=== PATIENT | male | born 1985 | race African-American/Black ===

== ENCOUNTER 2022-03-13 17:07 | Emergency (ER) | payer MEDICARE, MEDICAID, SELFPAY ==
[2022-03-13 17:20] VITALS: BP 177/106; PULSE 92; RESP 18; TEMP 36.6; O2SAT 100; BMI 26.6
--- NOTE | 2022-03-13 17:47 | ED.GENADULT ---
HPI - General Adult General Time Seen by Provider: 17:47 Date Seen: 03/13/22 Chief complaint: Ear/Nose/Throat Problem Stated complaint: Ear Pain Time Seen by Provider: 03/13/22 17:09 Source: patient Mode of arrival: ambulatory Limitations: no limitations History of Present Illness HPI narrative: Patient is a pleasant 36-year-old black male who presents with left earache. Live on does dialysis for end-stage renal failure from hypertension. He is on blood pressure medications. He has allergy to multiple issues mostly morphine, coconut oil, Benadryl, hydrocodone and morphine. The patient is alert oriented. He reported the nurses had some vomiting he thinks is from an ulcer, but he does not feel issues with that right now. He would like to talk to his regular doctor about that. He has had ear pain for a couple of days on the left, has some discharge as well. No other specific complaints. His blood pressure is elevated here but he is afebrile O2 sat 100% on room air Related Data Previous Rx's Medication Instructions Recorded cephalexin 500 mg capsule 500 mg PO DAILY #10 caps 03/13/22 Allergies Allergy/AdvReac Type Severity Reaction Status Date / Time coconut oil Allergy Verified 03/13/22 17:19 diphenhydramine Allergy Verified 03/13/22 17:19 [From Benadryl] hydrocodone Allergy Verified 03/13/22 17:19 ibuprofen Allergy Verified 03/13/22 17:19 NSAIDS (Non-Steroidal Allergy Verified 03/13/22 17:19 Anti-Inflamma morhine Allergy Uncoded 03/13/22 17:18 Review of Systems Narrative: Negative for prior ear infections, history of hypertension, history of end-stage renal failure on dialysis [facility] Social History Smoking Status: Never smoker Do you use any of these nicotine containing products: None Second hand tobacco smoke exposure: No How often do you have a drink containing alcohol: never How often do you have six or more drinks on one occasion: Never AUDIT-C Alcohol total score: 0 Non-prescribed substance use: denies use service: No Exam Narrative: Exam Narrative: Objective: Patient is no apparent distress Vital signs show elevated blood pressure afebrile O2 sat 100% on room air Left otitis media with bulging membrane, some cerumen in the canal as well Right ear appears clear Mouth is clear, neck supple Const: Vital Signs, click to edit/add: Vital Signs - 24 hr 03/13/22 17:20 Temperature 97.9 F Pulse Rate [Pulse Oximeter] 92 Respiratory Rate 18 Blood Pressure [Ri ght Upper Arm] 177/106 H Pulse Oximetry 100 Oxygen Delivery Me thod Room Air Course Vital Signs Vital signs: Initial Vital Signs Temperature 97.9 F 03/13/22 17:20 Temperature Source Temporal Artery Scan 03/13/22 17:20 Pulse Rate 92 03/13/22 17:20 Pulse Rhythm 03/13/22 17:20 Respiratory Rate 18 03/13/22 17:20 Blood Pressure 177/106 H 03/13/22 17:20 Blood Pressure Mean 129 03/13/22 17:20 Blood Pressure Position Sitting 03/13/22 17:20 Pulse Oximetry 100 03/13/22 17:20 Oxygen Delivery Method 03/13/22 17:20 Vital Signs Temperature 97.9 F 03/13/22 17:20 Pulse Rate 92 03/13/22 17:20 Respiratory Rate 18 03/13/22 17:20 Blood Pressure 177/106 H 03/13/22 17:20 Pulse Oximetry 100 03/13/22 17:20 Oxygen Delivery Method 03/13/22 17:20 Temperature 97.9 F 03/13/22 17:20 Pulse Rate 92 03/13/22 17:20 Respiratory Rate 18 03/13/22 17:20 Blood Pressure 177/106 H 03/13/22 17:20 Pulse Oximetry 100 03/13/22 17:20 Oxygen Delivery Method 03/13/22 17:20 Medical Decision Making MDM Narrative Medical decision making narrative: Patient with end-stage renal disease due to hypertension, high blood pressure, and left otitis media. Will cover with Keflex 500 b.i.d. x7 days, Tylenol as needed, update primary care in the next 1-2 days not improving changes concerns worsening return to ED. Discharge Plan Discharge Clinical Impression: Otitis media Patient Disposition: Home, Self-Care Condition: Stable Additional Instructions: Light activity, follow up with primary care if not improving the next 2-3 days, may use Tylenol as needed. Considering hemodialysis hemodialysis dosage of Keflex, would have the patient take one, 500 mg tablet daily for 5 days Activity Level: No Restrictions Discharge Diet: Regular Prescriptions: New cephalexin 500 mg capsule 500 mg PO DAILY Qty: 10 0RF Stand Alone Forms: [employer] Info Instructions
== END 2022-03-13 17:58 | disposition home or self-care (01) ==
LOC: ED 17:56
PROVIDERS: Emergency Provider Family Medicine
DX: H66.92 Otitis media, unspecified, left ear (principal)
CPT/HCPCS: 99283

== ENCOUNTER 2022-03-28 19:23 | Outpatient (CLI) | payer MEDICARE, MEDICAID, SELFPAY ==
[2022-03-28 22:04] LABS: Chloride* 99 mmol/L (96-114)
[2022-03-28 22:05] LABS: Albumin* 5.2 g/dL (3.3-5.0); Potassium* 4.7 mmol/L (3.6-5.1); Sodium* 138 mmol/L (135-149)
[2022-03-28 22:07] LABS: Estimated Glomerular Filt Rate 7 ml/min
[2022-03-28 22:08] LABS: Alanine Aminotransferase* 19 U/L (4-50); Alkaline Phosphatase* 53 U/L (40-150); Aspartate Amino Transferase* 23 U/L (12-35); Bilirubin Total* 0.7 mg/dL (0.1-1.5); Carbon Dioxide* 26 mmol/L (20-32); Total Protein* 7.9 g/dL (6.0-8.3)
[2022-03-28 22:09] LABS: Blood Urea Nitrogen* 24 mg/dL (5-24); Calcium* 9.3 mg/dL (8.4-10.6); Glucose* 89 mg/dL (60-115)
[2022-03-28 22:14] LABS: C Reactive Protein* < 0.5 mg/dL (0.5-1.0)
[2022-03-28 23:20] LABS: Erythrocyte SedimentationRate* 5 mm/hr (2-15)
== END 2022-03-28 19:24 | disposition home or self-care (01) ==
PROVIDERS: Visit Provider Student in an Organized Health Care Education/Training Program
DX: Z00.00 Encounter for general adult medical examination without abnormal findings (principal); I10 Essential (primary) hypertension; N18.6 End stage renal disease; H92.09 Otalgia, unspecified ear
CPT/HCPCS: 80053; 85651; 86140

== ENCOUNTER 2022-04-11 07:58 | Emergency (ER) | payer MEDICARE, MEDICAID, SELFPAY ==
[2022-04-11 08:10] VITALS: BP 181/112; PULSE 75; RESP 18; TEMP 37; O2SAT 76; BMI 26.6
--- NOTE | 2022-04-11 08:22 | ED.EAR ---
HPI - Ear Problem General Chief complaint: Ear/Nose/Throat Problem Stated complaint: pain in head Time Seen by Provider: 04/11/22 08:07 History of Present Illness HPI Narrative: Pt is a 36 year old gentleman who presents with worsening of left sided ear pain. Pt has had otitis media on two previous occasions and actually saw me recently in the clinic where I did set him up with ENT for assessment of chronic discomfort in his left ear. Pt's symptoms have worsening over the past 2 days. Pt has no fever or chills. No nausea or vomiting. Pt states the pain is severe and extends down into his teeth on the left side. He has no airway issues. No fevers, chills, night sweats. Pt has end stage renal disease and is on dialysis. No issues with abd pain or with his shunt. Related Data Home Medications Medication Instructions Recorded Confirmed amlodipine 10 mg tablet 10 mg PO QDAY 04/03/22 04/03/22 benazepril 20 mg tablet 20 mg PO BID 04/03/22 04/03/22 carvedilol 12.5 mg tablet 12.5 mg PO BID 04/03/22 04/03/22 gabapentin 100 mg capsule 100 mg PO QHS 04/03/22 04/03/22 hydralazine 50 mg tablet 50 mg PO TID 04/03/22 04/03/22 minoxidil 2.5 mg tablet 2.5 mg PO QDAY 04/03/22 04/03/22 nitroglycerin 0.4 mg sublingual 0.4 mg sublingual Q5M PRN 04/03/22 04/03/22 tablet ondansetron HCl 4 mg tablet 4 mg PO Q6H 04/03/22 04/03/22 Previous Rx's Medication Instructions Recorded omeprazole 20 mg capsule,delayed 20 mg PO QDAY Dyspepsia #30 caps 04/03/22 release tramadol 50 mg tablet 50 mg PO Q8H PRN pain #20 tabs 04/03/22 amoxicillin 500 mg-potassium 1 tab PO BID Otitis Media #14 tabs 04/11/22 clavulanate 125 mg tablet (Augmentin) hydrocodone 5 mg-acetaminophen 325 1 tab PO BID PRN pain #14 tabs 04/11/22 mg tablet Allergies Allergy/AdvReac Type Severity Reaction Status Date / Time coconut oil Allergy Verified 03/28/22 18:41 diphenhydramine Allergy Verified 03/28/22 18:41 [From Benadryl] hydrocodone Allergy Verified 03/28/22 18:41 ibuprofen Allergy Verified 03/28/22 18:41 NSAIDS (Non-Steroidal Allergy Verified 03/28/22 18:41 Anti-Inflamma morhine Allergy Uncoded 03/28/22 18:41 Review of Systems Status of ROS: Reports: 10 or more systems reviewed and unremarkable except as noted in History and below [facility] Medical History Ear pain End stage renal disease Hypertension Social History Smoking Status: Never smoker Do you use any of these nicotine containing products: None Second hand tobacco smoke exposure: No How often do you have a drink containing alcohol: never How often do you have six or more drinks on one occasion: Never AUDIT-C Alcohol total score: 0 Non-prescribed substance use: denies use service: No Exam Narrative: Exam Narrative: EXAM GENERAL: Patient appears comfortable and well. EYES: No scleral icterus. ENT: Dullness noted with erythema on the TM on the left with normal TM on the Right. THYROID: no thyroid nodules or thyromegaly. LYMPH: No supraclavicular or cervical lymphadenopathy. SKIN: Visible skin seen during exam normal or with benign process only. EXT: No dependent lower extremity pedal edema. HEART: Regular rate and rhythm with no murmurs, rubs, or gallops. LUNGS: Clear to auscultation bilaterally with no crackles or wheezes. ABD: Soft, non tender, non distended. PSYCH: Good eye contact, speech is not pressured. Const: Vital Signs, click to edit/add: Vital Signs - 24 hr 04/11/22 08:10 Temperature 98.6 F Pulse Rate [Right Pulse Oximeter] 75 Respiratory Rate 18 Blood Pressure [Ri ght Upper Arm] 181/112 H Pulse Oximetry 76 L Oxygen Delivery Me thod Room Air Course Course Hospital Course: Pt seen and examined. Vital Signs Vital signs: Initial Vital Signs Temperature 98.6 F 04/11/22 08:10 Temperature Source Temporal Artery Scan 04/11/22 08:10 Pulse Rate 75 04/11/22 08:10 Respiratory Rate 18 12/15/22 08:10 Blood Pressure 181/112 H 04/11/22 08:10 Blood Pressure Mean 135 04/11/22 08:10 Blood Pressure Position Sitting 04/11/22 08:10 Pulse Oximetry 76 L 04/11/22 08:10 Oxygen Delivery Method 04/11/22 08:10 Vital Signs Temperature 98.6 F 04/11/22 08:10 Pulse Rate 75 04/11/22 08:10 Respiratory Rate 18 04/11/22 08:10 Blood Pressure 181/112 H 04/11/22 08:10 Pulse Oximetry 76 L 04/11/22 08:10 Oxygen Delivery Method 04/11/22 08:10 Temperature 98.6 F 04/11/22 08:10 Pulse Rate 75 04/11/22 08:10 Respiratory Rate 18 04/11/22 08:10 Blood Pressure 181/112 H 04/11/22 08:10 Pulse Oximetry 76 L 04/11/22 08:10 Oxygen Delivery Method 04/11/22 08:10 Medical Decision Making MDM Narrative Medical decision making narrative: Pt well known to me presents with L ear pain. Findings are consistent with otitis media. Pt is on dialysis for ESRD secondary to hypertension. Pt will be treated with Augmentin and will give small amount of [place] for pain. Pt has an ENT follow up in the next 2 weeks to discuss recurrent ear pain/infection. Differential Diagnosis Differential Diagnosis: Otitis media, Otitis externa, dental pain, giant cell arteritis, headache, Discharge Plan Discharge Clinical Impression: Otitis media Patient Disposition: Home, Self-Care Condition: Stable Instructions: Ear Infection (ED) Additional Instructions: Augmentin twice daily for 7 days [place] as needed for pain Follow up with ENT as scheduled Activity Level: No Restrictions Discharge Diet: Regular Prescriptions: New amoxicillin-pot clavulanate [Augmentin] 500-125 mg tablet 1 tab PO BID Qty: 14 0RF hydrocodone-acetaminophen 5-325 mg tablet 1 tab PO BID PRN (Reason: pain) Qty: 14 0RF No Action gabapentin 100 mg capsule 100 mg PO QHS ondansetron HCl 4 mg tablet 4 mg PO Q6H benazepril 20 mg tablet 20 mg PO BID amlodipine 10 mg tablet 10 mg PO QDAY nitroglycerin 0.4 mg tablet, sublingual 0.4 mg sublingual Q5M PRN Rx Instructions: do not exceed 3 doses per episode hydralazine 50 mg tablet 50 mg PO TID minoxidil 2.5 mg tablet 2.5 mg PO QDAY carvedilol 12.5 mg tablet 12.5 mg PO BID Rx Instructions: must administer with a meal/food omeprazole 20 mg capsule,delayed release(DR/EC) 20 mg PO QDAY Qty: 30 3RF tramadol 50 mg tablet 50 mg PO Q8H PRN (Reason: pain) Qty: 20 0RF Follow Up/Referrals: Provider,Not a Local [Primary Care Provider] - Stand Alone Forms: [employer] Info Instructions
[2022-04-11 09:05] VITALS: BP 181/112; PULSE 75; RESP 18; TEMP 37
== END 2022-04-11 09:06 | disposition home or self-care (01) ==
PROVIDERS: Emergency Provider Internal Medicine; PCP Internal Medicine
DX: H66.92 Otitis media, unspecified, left ear (principal)
CPT/HCPCS: 99283; 99284

== ENCOUNTER 2022-05-27 12:21 | Outpatient (CLI) | payer MEDICARE, MEDICAID, SELFPAY | END 2022-05-27 12:22 | disposition home or self-care (01) | LOC: AMB 05-29 01:37 | PROVIDERS: PCP Internal Medicine; Visit Provider Emergency Medicine | DX: K08.89 Other specified disorders of teeth and supporting structures (principal); R56.9 Unspecified convulsions | CPT/HCPCS: A0425; A0427 ==

== ENCOUNTER 2022-06-24 19:30 | Outpatient (CLI) | payer MEDICARE, MEDICAID, SELFPAY | END 2022-06-24 19:31 | disposition home or self-care (01) | LOC: AMB 06-27 15:35 | PROVIDERS: PCP Internal Medicine; Visit Provider Family Medicine | DX: R07.89 Other chest pain (principal) | CPT/HCPCS: A0425; A0427 ==

== ENCOUNTER 2022-06-24 19:59 | Emergency (ER) | payer MEDICARE, MEDICAID, SELFPAY ==
[2022-06-24] VITALS (49 sets, daily range): BP systolic 139–179; BP diastolic 71–99; PULSE 75–114; RESP 18; TEMP 36.6–36.8; O2SAT 89–99; BMI 26.6
--- NOTE | 2022-06-24 20:13 | ED.GENADULT ---
HPI - General Adult General Time Seen by Provider: 20:13 Date Seen: 06/24/22 Chief complaint: Chest Pain Stated complaint: Chest Pain Time Seen by Provider: 06/24/22 20:02 Source: patient, EMS and RN notes reviewed Mode of arrival: EMS Limitations: no limitations History of Present Illness HPI narrative: 36-year-old male with end-stage renal disease on dialysis, hypertension who presents with chest pain. Patient reports 2 days of left-sided chest pain. Occasional cough in some shortness of breath. Missed dialysis last week, went to dialysis today with some improvement of his pain and then pain in his back this evening. Denies nausea, vomiting, diarrhea, abdominal pain. Pain is worse when he lays down, better sitting up. Denies fever chills. Has not taken anything for his pain. Related Data Home Medications Medication Instructions Recorded Confirmed amlodipine 10 mg tablet 10 mg PO QDAY 04/03/22 06/24/22 benazepril 20 mg tablet 20 mg PO BID 04/03/22 06/24/22 carvedilol 12.5 mg tablet 12.5 mg PO BID 04/03/22 06/24/22 gabapentin 100 mg capsule 100 mg PO QHS 04/03/22 06/24/22 hydralazine 50 mg tablet 50 mg PO TID 04/03/22 06/24/22 minoxidil 2.5 mg tablet 2.5 mg PO QDAY 04/03/22 06/24/22 Previous Rx's Medication Instructions Recorded omeprazole 20 mg capsule,delayed 20 mg PO QDAY Dyspepsia #30 caps 04/03/22 release Allergies Allergy/AdvReac Type Severity Reaction Status Date / Time diphenhydramine Allergy Severe Seizure Verified 06/24/22 20:07 [From Benadryl] hydrocodone Allergy Severe Seizure Verified 06/24/22 20:07 morphine Allergy Severe Seizure Verified 06/24/22 20:07 coconut oil Allergy Mild Hives Verified 06/24/22 20:07 ibuprofen AdvReac Severe Kidney Verified 06/24/22 20:07 Disease NSAIDS (Non-Steroidal AdvReac Severe Kidney Verified 06/24/22 20:07 Anti-Inflamma Disease PFSH PFSH Medical History Ear pain End stage renal disease Hypertension Social History Smoking Status: Former smoker Do you use any of these nicotine containing products: None Second hand tobacco smoke exposure: No How often do you have a drink containing alcohol: never How often do you have six or more drinks on one occasion: Never AUDIT-C Alcohol total score: 0 Non-prescribed substance use: denies use service: No Exam Narrative: Exam Narrative: General: Well-developed and well-nourished, no acute distress Head: Atraumatic and normocephalic Eyes: Pupils are equal reactive, extraocular motions intact, conjunctiva clear ENT: External nose and ears are normal, posterior pharynx without erythema or exudate Neck: No midline cervical tenderness, full spontaneous range of motion the neck, trachea midline, no adenopathy Heart: Regular rate and rhythm, 4/6 systolic murmur Lungs: Clear to auscultation bilaterally without wheezes or crackles Abdomen: Soft, nontender, nondistended with active bowel sounds Musculoskeletal: No tenderness, deformity, or edema Neurologic: Awake, alert, and oriented x3, no gross focal neurologic deficits, cranial nerves intact as tested Psych: Mood and affect are appropriate Skin: No rashes Const: Vital Signs, click to edit/add: Vital Signs - 24 hr 06/24/22 20:09 06/24/22 20:22 06/24/22 20:23 Temperature 98.2 F Pulse Rate Pulse Rate [Right Pulse Oximeter] 75 Respiratory Rate 18 Blood Pressure Blood Pressure [Ri ght Upper Arm] 175/99 H Pulse Oximetry 99 97 97 Oxygen Delivery Me thod Room Air 06/24/22 20:10 06/24/22 20:11 06/24/22 20:22 Temperature Pulse Rate 97 95 95 Pulse Rate [Right Pulse Oximeter] Respiratory Rate Blood Pressure 164/97 H 156/92 H Blood Pressure [Ri ght Upper Arm] Pulse Oximetry 98 97 98 Oxygen Delivery Me thod 06/24/22 20:30 06/24/22 20:32 06/24/22 20:33 Temperature Pulse Rate 105 H 100 98 Pulse Rate [Right Pulse Oximeter] Respiratory Rate Blood Pressure 159/94 H Blood Pressure [Ri ght Upper Arm] Pulse Oximetry 98 97 96 Oxygen Delivery Me thod 06/24/22 20:40 06/24/22 20:50 06/24/22 21:00 Temperature Pulse Rate 114 H 92 93 Pulse Rate [Right Pulse Oximeter] Respiratory Rate Blood Pressure Blood Pressure [Ri ght Upper Arm] Pulse Oximetry 97 98 97 Oxygen Delivery Me thod 06/24/22 21:02 06/24/22 21:03 06/24/22 21:10 Temperature Pulse Rate 100 101 H 96 Pulse Rate [Right Pulse Oximeter] Respiratory Rate Blood Pressure 166/94 H Blood Pressure [Ri ght Upper Arm] Pulse Oximetry 99 97 97 Oxygen Delivery Me thod 06/24/22 21:11 06/24/22 21:12 06/24/22 21:20 Temperature Pulse Rate 97 96 98 Pulse Rate [Right Pulse Oximeter] Respiratory Rate Blood Pressure 166/89 H Blood Pressure [Ri ght Upper Arm] Pulse Oximetry 97 97 96 Oxygen Delivery Me thod 06/24/22 21:22 06/24/22 21:30 06/24/22 21:32 Temperature Pulse Rate 98 102 H 104 H Pulse Rate [Right Pulse Oximeter] Respiratory Rate Blood Pressure 151/78 H Blood Pressure [Ri ght Upper Arm] Pulse Oximetry 95 94 98 Oxygen Delivery Me thod 06/24/22 21:40 06/24/22 21:41 06/24/22 21:50 Temperature Pulse Rate 95 94 101 H Pulse Rate [Right Pulse Oximeter] Respiratory Rate Blood Pressure 152/71 H Blood Pressure [Ri ght Upper Arm] Pulse Oximetry 96 96 89 Oxygen Delivery Me thod 06/24/22 21:51 06/24/22 21:52 06/24/22 22:00 Temperature Pulse Rate 112 H 114 H 105 H Pulse Rate [Right Pulse Oximeter] Respiratory Rate Blood Pressure 158/83 H Blood Pressure [Ri ght Upper Arm] Pulse Oximetry 99 98 96 Oxygen Delivery Me thod 06/24/22 22:01 06/24/22 22:10 06/24/22 22:11 Temperature Pulse Rate 102 H 103 H 102 H Pulse Rate [Right Pulse Oximeter] Respiratory Rate Blood Pressure 140/83 H 168/87 H Blood Pressure [Ri ght Upper Arm] Pulse Oximetry 97 97 97 Oxygen Delivery Me thod 06/24/22 22:21 06/24/22 22:32 06/24/22 22:41 Temperature Pulse Rate Pulse Rate [Right Pulse Oximeter] Respiratory Rate Blood Pressure 162/99 H 151/74 H 139/78 Blood Pressure [Ri ght Upper Arm] Pulse Oximetry Oxygen Delivery Me thod 06/24/22 22:52 06/24/22 23:00 06/24/22 23:01 Temperature Pulse Rate 103 H 98 Pulse Rate [Right Pulse Oximeter] Respiratory Rate Blood Pressure 167/83 H 156/88 H Blood Pressure [Ri ght Upper Arm] Pulse Oximetry 96 96 Oxygen Delivery Me thod 06/24/22 23:10 06/24/22 23:21 06/24/22 23:02 Temperature 97.9 F 98.1 F Pulse Rate 98 96 99 Pulse Rate [Right Pulse Oximeter] Respiratory Rate 18 18 Blood Pressure 156/88 H 179/83 H Blood Pressure [Ri ght Upper Arm] Pulse Oximetry 95 97 95 Oxygen Delivery Me thod 06/24/22 23:10 06/24/22 23:11 06/24/22 23:20 Temperature Pulse Rate 110 H 105 H 99 Pulse Rate [Right Pulse Oximeter] Respiratory Rate Blood Pressure 179/99 H Blood Pressure [Ri ght Upper Arm] Pulse Oximetry 98 96 96 Oxygen Delivery Me thod 06/24/22 23:22 06/24/22 23:30 06/24/22 23:32 Temperature Pulse Rate 99 93 98 Pulse Rate [Right Pulse Oximeter] Respiratory Rate Blood Pressure 179/83 H 167/76 H Blood Pressure [Ri ght Upper Arm] Pulse Oximetry 97 95 97 Oxygen Delivery Me thod 06/24/22 23:40 06/24/22 23:41 06/24/22 23:27 Temperature 98.1 F Pulse Rate 92 90 93 Pulse Rate [Right Pulse Oximeter] Respiratory Rate 18 Blood Pressure 163/80 H 166/73 H Blood Pressure [Ri ght Upper Arm] Pulse Oximetry 96 96 96 Oxygen Delivery Me thod 06/24/22 23:42 06/24/22 23:50 06/24/22 23:51 Temperature Pulse Rate 90 95 88 Pulse Rate [Right Pulse Oximeter] Respiratory Rate Blood Pressure 160/94 H Blood Pressure [Ri ght Upper Arm] Pulse Oximetry 96 92 97 Oxygen Delivery Me thod 06/25/22 00:00 06/25/22 00:01 06/25/22 00:10 Temperature Pulse Rate 91 89 92 Pulse Rate [Right Pulse Oximeter] Respiratory Rate Blood Pressure 166/73 H Blood Pressure [Ri ght Upper Arm] Pulse Oximetry 97 96 95 Oxygen Delivery Me thod 06/25/22 00:11 06/25/22 00:20 06/25/22 00:21 Temperature Pulse Rate 87 93 90 Pulse Rate [Right Pulse Oximeter] Respiratory Rate Blood Pressure 149/80 H 138/80 Blood Pressure [Ri ght Upper Arm] Pulse Oximetry 96 96 96 Oxygen Delivery Me thod 06/25/22 00:30 06/25/22 00:32 06/25/22 00:40 Temperature Pulse Rate 90 86 89 Pulse Rate [Right Pulse Oximeter] Respiratory Rate Blood Pressure 156/85 H Blood Pressure [Ri ght Upper Arm] Pulse Oximetry 96 97 98 Oxygen Delivery Me thod 06/25/22 00:41 06/25/22 00:50 06/25/22 00:51 Temperature Pulse Rate 101 H 98 83 Pulse Rate [Right Pulse Oximeter] Respiratory Rate Blood Pressure 153/68 H 153/80 H Blood Pressure [Ri ght Upper Arm] Pulse Oximetry 98 97 96 Oxygen Delivery Me od 06/25/22 00:12 06/25/22 01:46 06/25/22 00:52 Temperature 98.2 F 98.1 F Pulse Rate 87 91 86 Pulse Rate [Right Pulse Oximeter] Respiratory Rate 16 18 Blood Pressure 154/86 H 154/86 H Blood Pressure [Ri ght Upper Arm] Pulse Oximetry 98 98 97 Oxygen Delivery Me od 06/25/22 01:00 06/25/22 01:01 06/25/22 01:31 Temperature Pulse Rate 93 84 Pulse Rate [Right Pulse Oximeter] Respiratory Rate Blood Pressure 144/80 H 154/86 H Blood Pressure [Ri ght Upper Arm] Pulse Oximetry 96 98 Oxygen Delivery Me od 06/25/22 01:54 06/25/22 01:44 06/25/22 01:54 Temperature 98.1 F Pulse Rate 83 84 80 Pulse Rate [Right Pulse Oximeter] Respiratory Rate 18 Blood Pressure 158/98 H 158/98 H Blood Pressure [Ri ght Upper Arm] Pulse Oximetry 94 99 94 Oxygen Delivery Me thod 06/25/22 02:02 06/25/22 01:55 06/25/22 02:00 Temperature 97.7 F Pulse Rate 78 83 82 Pulse Rate [Right Pulse Oximeter] Respiratory Rate 18 Blood Pressure 161/99 H Blood Pressure [Ri ght Upper Arm] Pulse Oximetry 99 96 94 Oxygen Delivery Me thod 06/25/22 02:01 06/25/22 02:35 06/25/22 02:47 Temperature 98 F Pulse Rate 79 92 78 Pulse Rate [Right Pulse Oximeter] Respiratory Rate 18 Blood Pressure 154/94 H 161/99 H 149/94 H Blood Pressure [Ri ght Upper Arm] Pulse Oximetry 97 98 98 Oxygen Delivery Me thod 06/25/22 02:36 06/25/22 03:00 06/25/22 03:01 Temperature Pulse Rate 80 86 83 Pulse Rate [Right Pulse Oximeter] Respiratory Rate Blood Pressure 145/81 H Blood Pressure [Ri ght Upper Arm] Pulse Oximetry 99 98 97 Oxygen Delivery Me thod 06/25/22 03:02 06/25/22 03:54 06/25/22 03:55 Temperature Pulse Rate 87 76 79 Pulse Rate [Right Pulse Oximeter] Respiratory Rate Blood Pressure 149/94 H Blood Pressure [Ri ght Upper Arm] Pulse Oximetry 97 98 97 Oxygen Delivery Me thod 06/25/22 04:00 06/25/22 04:01 06/25/22 04:02 Temperature Pulse Rate 79 79 76 Pulse Rate [Right Pulse Oximeter] Respiratory Rate Blood Pressure 139/73 Blood Pressure [Ri ght Upper Arm] Pulse Oximetry 97 97 97 Oxygen Delivery Me thod 06/25/22 05:00 06/25/22 05:01 Temperature Pulse Rate 80 76 Pulse Rate [Right Pulse Oximeter] Respiratory Rate Blood Pressure 146/82 H Blood Pressure [Ri ght Upper Arm] Pulse Oximetry 98 98 Oxygen Delivery Me thod Course Course Hospital Course: Patient seen examined, prior records reviewed. Patient has history of end-stage renal disease and hypertension, as well as seizure disorder. Patient presents with left-sided chest pain going on for couple of days. On exam, slight heart murmur which patient said his usual. No crackles on lung exam, no abdominal tenderness. Differential diagnosis includes but not limited to pericarditis, myocarditis, acute coronary syndrome, pneumonia, pneumothorax, pneumothorax, rib fracture, pulmonary embolism. Normal shortness of breath. Pain is worse lying down, this could represent heart failure or pulmonary edema but no crackles on exam. EKG is reassuring with no peaked T-waves or ST changes to suggest acute pericarditis. Labs and chest x-ray ordered along with GI cocktail. Social determine its of health include poor access to health care, review outside records shows patient was recently admitted to [facility] for hyperkalemia and seizure. Reevaluation(s) Reevaluation #1: Labs independently interpreted by me demonstrates troponin of 0.06, hemoglobin today is 6.5. Review of prior chart shows that hemoglobin last week was 9.1. Blood transfusion will be ordered and patient will need to be admitted but unable to admit him here due to his dialysis needs. Contacted [facility] and [facility], no beds available in either system. Will discuss treatment with [place] neph[facility] as patient sees Concetta Burns. Anemia may be contributing to chest pain today, and likely is contributing to patient's shortness of breath. Repeat troponin is ordered. Time: 20:35 Reevaluation #2: Bedside ultrasound demonstrates trace pericardial effusion, patient has tachycardia but no hypotension to suggest tamponade. No swinging heart but the right ventricle does decrease in size fairly significantly, but does fill again normally. Labs independently interpreted by me demonstrate elevated creatinine, otherwise electrolytes are reassuring. Repeat troponin is ordered and pending at this time. BNP elevated, chest x-ray does not demonstrate any acute signs of pulmonary edema. Time: 22:14 Reevaluation #3: Repeat troponin is stable. Blood transfusion will be given in the emergency department. Time: 22:40 Additional Reevaluation(s): 12:45 a.m. vital signs improved with heart rate improving. Patient rechecked, chest pain is resolved and shortness of breath is resolved. Symptoms may have been related to anemia, however etiology of anemia is unclear at this point. Discussed plan for retry transfer in the morning. If patient remains stable in feels well, can go to dialysis tomorrow morning and then close outpatient follow-up. 5:45 a.m. patient slept well overnight. On recheck, remains chest pain-free. Recheck, no beds available state wide. Patient is stable for discharge and will go to dialysis. We did discuss that if he has return symptoms, he should follow up at a tertiary center if possible. Otherwise can follow-up primary care this week. Vital Signs Vital signs: Initial Vital Signs Temperature 98.2 F 06/24/22 20:09 Temperature Source Temporal Artery Scan 06/24/22 20:09 Pulse Rate 75 06/24/22 20:09 Respiratory Rate 18 06/24/22 20:09 Blood Pressure 175/99 H 06/24/22 20:09 Blood Pressure Mean 124 06/24/22 20:09 Blood Pressure Position Supine 06/24/22 20:09 Pulse Oximetry 99 06/24/22 20:09 Oxygen Delivery Method 06/24/22 20:09 Vital Signs Temperature 98.2 F 06/24/22 20:09 Pulse Rate 75 06/24/22 20:09 Respiratory Rate 18 06/24/22 20:09 Blood Pressure 175/99 H 06/24/22 20:09 Pulse Oximetry 99 06/24/22 20:09 Oxygen Delivery Method 06/24/22 20:09 Temperature 98 F 06/25/22 02:47 Pulse Rate 76 06/25/22 05:01 Respiratory Rate 18 06/25/22 02:47 Blood Pressure 146/82 H 06/25/22 05:01 Pulse Oximetry 98 06/25/22 05:01 Oxygen Delivery Method 06/24/22 20:09 Medical Decision Making Lab Data Labs: Lab Results 06/24/22 06/24/22 06/24/22 Range/Units 20:07 20:07 20:22 WBC 6.42 (4.50-11.00) K/uL RBC 2.29 L (4.30-5.90) m/uL Hgb 6.5 L* (13.5-17.5) gm/dL Hct 19.6 L (37.0-53.0) % MCV 86 (80-100) fL MCH 28 (26-34) pg MCHC 33 (32-36) gm/dL RDW Coeff of Ivett 13.3 (11.5-15.5) % Plt Count 310 (140-440) K/uL Neut % (Auto) 50.3 (42.0-72.0) % Lymph % (Auto) 24.8 (20-44) % Appling % (Auto) 9.5 (0.0-11.0) % Eos % (Auto) 14.3 H (0.0-7.0) % Baso % (Auto) 0.9 (0.0-3.0) % Neut # (Auto) 3.23 (1.7-7.0) K/uL Lymph # (Auto) 1.59 (0.90-2.90) K/uL Appling # (Auto) 0.60 (0.00-0.90) K/UL Eos # (Auto) 0.90 H (0.00-0.50) K/uL Baso # (Auto) 0.06 (0.00-0.30) K/uL Sodium 142 (135-149) mmol/L Potassium 4.1 (3.6-5.1) mmol/L Chloride 105 (96-114) mmol/L Carbon Dioxide 24 (20-32) mmol/L BUN 42 H (5-24) mg/dL Creatinine 12.8 H (0.5-1.5) mg/dL Estimated Creat Clear 6.81 Estimated GFR 5 ml/min Glucose 99 (60-115) mg/dL Calcium 9.2 (8.4-10.6) mg/dL Magnesium 1.9 (1.5-2.6) mg/dL NT-Pro-B Natriuret Pep 44351 pg/mL SARS-CoV-2 (PCR) (Negative) Influenza Type A (PCR) (Negative) Influenza Type B (PCR) (Negative) RSV (PCR) (Negative) POC Troponin I 0.06 H (0.01-0.04) ng/ml Blood Type Antibody Screen Crossmatch (AHG) 06/24/22 06/24/22 06/24/22 Range/Units 20:41 20:55 22:30 WBC (4.50-11.00) K/uL RBC (4.30-5.90) m/uL Hgb (13.5-17.5) gm/dL Hct (37.0-53.0) % MCV (80-100) fL MCH (26-34) pg MCHC (32-36) gm/dL RDW Coeff of Ivett (11.5-15.5) % Plt Count (140-440) K/uL Neut % (Auto) (42.0-72.0) % Lymph % (Auto) (20-44) % Appling % (Auto) (0.0-11.0) % Eos % (Auto) (0.0-7.0) % Baso % (Auto) (0.0-3.0) % Neut # (Auto) (1.7-7.0) K/uL Lymph # (Auto) (0.90-2.90) K/uL Appling # (Auto) (0.00-0.90) K/UL Eos # (Auto) (0.00-0.50) K/uL Baso # (Auto) (0.00-0.30) K/uL Sodium (135-149) mmol/L Potassium (3.6-5.1) mmol/L Chloride (96-114) mmol/L Carbon Dioxide (20-32) mmol/L BUN (5-24) mg/dL Creatinine (0.5-1.5) mg/dL Estimated Creat Clear Estimated GFR ml/min Glucose (60-115) mg/dL Calcium (8.4-10.6) mg/dL Magnesium (1.5-2.6) mg/dL NT-Pro-B Natriuret Pep pg/mL SARS-CoV-2 (PCR) Negative SARS-CoV-2 (Negative) Influenza Type A (PCR) Negative PCR FLU A (Negative) Influenza Type B (PCR) Negative PCR FLU B (Negative) RSV (PCR) Negative PCR RSV (Negative) POC Troponin I 0.05 H (0.01-0.04) ng/ml Blood Type O Positive Antibody Screen NEGATIVE Crossmatch (AHG) See Detail Imaging Data Chest x-ray: Attestation: I have reviewed the pertinent imaging results. My impression: Chest x-ray independently interpreted by me demonstrates cardiomegaly without infiltrate or effusion to suggest acute failure. 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 Critical Care Time Critical Care Time Critical Care Time: Yes Attestation: The patient required my highest level preparedness to intervene emergently and I personally spent this critical care time directly and personally managing the patient. This critical care time included: Obtaining a history; Examining the patient; Pulse oximetry; Ordering and reviewing of studies; Arranging urgent treatment with development of a management plan; Evaluation of patients response to treatment; Frequent reassessment discussions with other providers. This critical care time was performed to assess and manage the high probability of imminent life-threatening deterioration that could result in multiorgan failure. It was exclusive of separate billable procedures and treating other patients and teaching time. Total Critical Care Time in Minutes: 300 Discharge Plan Discharge Clinical Impression: Anemia, Chest pain, End stage renal disease Prescriptions: No Action gabapentin 100 mg capsule 100 mg PO QHS benazepril 20 mg tablet 20 mg PO BID amlodipine 10 mg tablet 10 mg PO QDAY hydralazine 50 mg tablet 50 mg PO TID minoxidil 2.5 mg tablet 2.5 mg PO QDAY carvedilol 12.5 mg tablet 12.5 mg PO BID Rx Instructions: must administer with a meal/food omeprazole 20 mg capsule,delayed release(DR/EC) 20 mg PO QDAY Qty: 30 3RF Follow Up/Referrals: Stef Ho MD [Primary Care Provider] -
--- NOTE | 2022-06-24 20:21 | ED_ITS ---
HPI - General Adult General Chief complaint: Chest Pain Stated complaint: Chest Pain Time Seen by Provider: 06/24/22 20:02 Source: patient, EMS and RN notes reviewed Mode of arrival: EMS Limitations: no limitations Related Data Home Medications Medication Instructions Recorded Confirmed amlodipine 10 mg tablet 10 mg PO QDAY 04/03/22 06/24/22 benazepril 20 mg tablet 20 mg PO BID 04/03/22 06/24/22 carvedilol 12.5 mg tablet 12.5 mg PO BID 04/03/22 06/24/22 gabapentin 100 mg capsule 100 mg PO QHS 04/03/22 06/24/22 hydralazine 50 mg tablet 50 mg PO TID 04/03/22 06/24/22 minoxidil 2.5 mg tablet 2.5 mg PO QDAY 04/03/22 06/24/22 Previous Rx's Medication Instructions Recorded omeprazole 20 mg capsule,delayed 20 mg PO QDAY Dyspepsia #30 caps 04/03/22 release Allergies Allergy/AdvReac Type Severity Reaction Status Date / Time diphenhydramine Allergy Severe Seizure Verified 06/24/22 20:07 [From Benadryl] hydrocodone Allergy Severe Seizure Verified 06/24/22 20:07 morphine Allergy Severe Seizure Verified 06/24/22 20:07 coconut oil Allergy Mild Hives Verified 06/24/22 20:07 ibuprofen AdvReac Severe Kidney Verified 06/24/22 20:07 Disease NSAIDS (Non-Steroidal AdvReac Severe Kidney Verified 06/24/22 20:07 Anti-Inflamma Disease PFSH PFSH Medical History Ear pain End stage renal disease Hypertension Social History Smoking Status: Former smoker Do you use any of these nicotine containing products: None Second hand tobacco smoke exposure: No How often do you have a drink containing alcohol: never How often do you have six or more drinks on one occasion: Never AUDIT-C Alcohol total score: 0 Non-prescribed substance use: denies use service: No Exam Const: Vital Signs, click to edit/add: Vital Signs - 24 hr 06/24/22 20:09 06/24/22 20:22 06/24/22 20:23 Temperature 98.2 F Pulse Rate Pulse Rate [Right Pulse Oximeter] 75 Respiratory Rate 18 Blood Pressure Blood Pressure [Ri ght Upper Arm] 175/99 H Pulse Oximetry 99 97 97 Oxygen Delivery Me thod Room Air 06/24/22 20:10 06/24/22 20:11 06/24/22 20:22 Temperature Pulse Rate 97 95 95 Pulse Rate [Right Pulse Oximeter] Respiratory Rate Blood Pressure 164/97 H 156/92 H Blood Pressure [Ri ght Upper Arm] Pulse Oximetry 98 97 98 Oxygen Delivery Me thod 06/24/22 20:30 06/24/22 20:32 06/24/22 20:33 Temperature Pulse Rate 105 H 100 98 Pulse Rate [Right Pulse Oximeter] Respiratory Rate Blood Pressure 159/94 H Blood Pressure [Ri ght Upper Arm] Pulse Oximetry 98 97 96 Oxygen Delivery Me thod 06/24/22 20:40 06/24/22 20:50 06/24/22 21:00 Temperature Pulse Rate 114 H 92 93 Pulse Rate [Right Pulse Oximeter] Respiratory Rate Blood Pressure Blood Pressure [Ri ght Upper Arm] Pulse Oximetry 97 98 97 Oxygen Delivery Me thod 06/24/22 21:02 06/24/22 21:03 06/24/22 21:10 Temperature Pulse Rate 100 101 H 96 Pulse Rate [Right Pulse Oximeter] Respiratory Rate Blood Pressure 166/94 H Blood Pressure [Ri ght Upper Arm] Pulse Oximetry 99 97 97 Oxygen Delivery Me thod 06/24/22 21:11 06/24/22 21:12 06/24/22 21:20 Temperature Pulse Rate 97 96 98 Pulse Rate [Right Pulse Oximeter] Respiratory Rate Blood Pressure 166/89 H Blood Pressure [Ri ght Upper Arm] Pulse Oximetry 97 97 96 Oxygen Delivery Me thod 06/24/22 21:22 06/24/22 21:30 06/24/22 21:32 Temperature Pulse Rate 98 102 H 104 H Pulse Rate [Right Pulse Oximeter] Respiratory Rate Blood Pressure 151/78 H Blood Pressure [Ri ght Upper Arm] Pulse Oximetry 95 94 98 Oxygen Delivery Me thod 06/24/22 21:40 06/24/22 21:41 06/24/22 21:50 Temperature Pulse Rate 95 94 101 H Pulse Rate [Right Pulse Oximeter] Respiratory Rate Blood Pressure 152/71 H Blood Pressure [Ri ght Upper Arm] Pulse Oximetry 96 96 89 Oxygen Delivery Me thod 06/24/22 21:51 06/24/22 21:52 06/24/22 22:00 Temperature Pulse Rate 112 H 114 H 105 H Pulse Rate [Right Pulse Oximeter] Respiratory Rate Blood Pressure 158/83 H Blood Pressure [Ri ght Upper Arm] Pulse Oximetry 99 98 96 Oxygen Delivery Me thod 06/24/22 22:01 06/24/22 22:10 06/24/22 22:11 Temperature Pulse Rate 102 H 103 H 102 H Pulse Rate [Right Pulse Oximeter] Respiratory Rate Blood Pressure 140/83 H 168/87 H Blood Pressure [Ri ght Upper Arm] Pulse Oximetry 97 97 97 Oxygen Delivery Me thod 06/24/22 22:21 06/24/22 22:32 06/24/22 22:41 Temperature Pulse Rate Pulse Rate [Right Pulse Oximeter] Respiratory Rate Blood Pressure 162/99 H 151/74 H 139/78 Blood Pressure [Ri ght Upper Arm] Pulse Oximetry Oxygen Delivery Me thod 06/24/22 22:52 06/24/22 23:00 06/24/22 23:01 Temperature Pulse Rate 103 H 98 Pulse Rate [Right Pulse Oximeter] Respiratory Rate Blood Pressure 167/83 H 156/88 H Blood Pressure [Ri ght Upper Arm] Pulse Oximetry 96 96 Oxygen Delivery Me thod 06/24/22 23:10 06/24/22 23:21 06/24/22 23:02 Temperature 97.9 F 98.1 F Pulse Rate 98 96 99 Pulse Rate [Right Pulse Oximeter] Respiratory Rate 18 18 Blood Pressure 156/88 H 179/83 H Blood Pressure [Ri ght Upper Arm] Pulse Oximetry 95 97 95 Oxygen Delivery Me thod 06/24/22 23:10 06/24/22 23:11 06/24/22 23:20 Temperature Pulse Rate 110 H 105 H 99 Pulse Rate [Right Pulse Oximeter] Respiratory Rate Blood Pressure 179/99 H Blood Pressure [Ri ght Upper Arm] Pulse Oximetry 98 96 96 Oxygen Delivery Me thod 06/24/22 23:22 06/24/22 23:30 06/24/22 23:32 Temperature Pulse Rate 99 93 98 Pulse Rate [Right Pulse Oximeter] Respiratory Rate Blood Pressure 179/83 H 167/76 H Blood Pressure [Ri ght Upper Arm] Pulse Oximetry 97 95 97 Oxygen Delivery Me thod 06/24/22 23:40 06/24/22 23:41 06/24/22 23:27 Temperature 98.1 F Pulse Rate 92 90 93 Pulse Rate [Right Pulse Oximeter] Respiratory Rate 18 Blood Pressure 163/80 H 166/73 H Blood Pressure [Ri ght Upper Arm] Pulse Oximetry 96 96 96 Oxygen Delivery Me thod 06/24/22 23:42 06/24/22 23:50 06/24/22 23:51 Temperature Pulse Rate 90 95 88 Pulse Rate [Right Pulse Oximeter] Respiratory Rate Blood Pressure 160/94 H Blood Pressure [Ri ght Upper Arm] Pulse Oximetry 96 92 97 Oxygen Delivery Me thod 06/25/22 00:00 06/25/22 00:01 06/25/22 00:10 Temperature Pulse Rate 91 89 92 Pulse Rate [Right Pulse Oximeter] Respiratory Rate Blood Pressure 166/73 H Blood Pressure [Ri ght Upper Arm] Pulse Oximetry 97 96 95 Oxygen Delivery Me thod 06/25/22 00:11 06/25/22 00:20 06/25/22 00:21 Temperature Pulse Rate 87 93 90 Pulse Rate [Right Pulse Oximeter] Respiratory Rate Blood Pressure 149/80 H 138/80 Blood Pressure [Ri ght Upper Arm] Pulse Oximetry 96 96 96 Oxygen Delivery Me thod 06/25/22 00:30 06/25/22 00:32 06/25/22 00:40 Temperature Pulse Rate 90 86 89 Pulse Rate [Right Pulse Oximeter] Respiratory Rate Blood Pressure 156/85 H Blood Pressure [Ri ght Upper Arm] Pulse Oximetry 96 97 98 Oxygen Delivery Me thod 06/25/22 00:41 06/25/22 00:50 06/25/22 00:51 Temperature Pulse Rate 101 H 98 83 Pulse Rate [Right Pulse Oximeter] Respiratory Rate Blood Pressure 153/68 H 153/80 H Blood Pressure [Ri ght Upper Arm] Pulse Oximetry 98 97 96 Oxygen Delivery Me thod Course Course Hospital Course: Patient seen examined, prior records reviewed. Patient has history of end-stage renal disease and hypertension, as well as seizure disorder. Patient presents with left-sided chest pain going on for couple of days. On exam, slight heart murmur which patient said his usual. No crackles on lung exam, no abdominal tenderness. Differential diagnosis includes but not limited to pericarditis, myocarditis, acute coronary syndrome, pneumonia, pneumothorax, pneumothorax, rib fracture, pulmonary embolism. Normal shortness of breath. Pain is worse lying down, this could represent heart failure or pulmonary edema but no crackles on exam. EKG is reassuring with no peaked T-waves or ST changes to suggest acute pericarditis. Labs and chest x-ray ordered along with GI cocktail. Social determine its of health include poor access to health care, review outside records shows patient was recently admitted to [facility] for hyperkalemia and seizure. Vital Signs Vital signs: Initial Vital Signs Temperature 98.2 F 06/24/22 20:09 Temperature Source Temporal Artery Scan 06/24/22 20:09 Pulse Rate 75 06/24/22 20:09 Respiratory Rate 18 06/24/22 20:09 Blood Pressure 175/99 H 06/24/22 20:09 Blood Pressure Mean 124 06/24/22 20:09 Blood Pressure Position Supine 06/24/22 20:09 Pulse Oximetry 99 06/24/22 20:09 Oxygen Delivery Method 06/24/22 20:09 Vital Signs Temperature 98.2 F 06/24/22 20:09 Pulse Rate 75 06/24/22 20:09 Respiratory Rate 18 06/24/22 20:09 Blood Pressure 175/99 H 06/24/22 20:09 Pulse Oximetry 99 06/24/22 20:09 Oxygen Delivery Method 06/24/22 20:09 Temperature 98 F 06/25/22 02:47 Pulse Rate 75 06/25/22 05:02 Respiratory Rate 18 06/25/22 02:47 Blood Pressure 164/94 H 06/25/22 05:54 Pulse Oximetry 97 06/25/22 05:02 Oxygen Delivery Method 06/24/22 20:09 Medical Decision Making Lab Data Labs: Lab Results 06/24/22 06/24/22 06/24/22 Range/Units 20:07 20:07 20:22 WBC 6.42 (4.50-11.00) K/uL RBC 2.29 L (4.30-5.90) m/uL Hgb 6.5 L* (13.5-17.5) gm/dL Hct 19.6 L (37.0-53.0) % MCV 86 (80-100) fL MCH 28 (26-34) pg MCHC 33 (32-36) gm/dL RDW Coeff of Ivett 13.3 (11.5-15.5) % Plt Count 310 (140-440) K/uL Neut % (Auto) 50.3 (42.0-72.0) % Lymph % (Auto) 24.8 (20-44) % [place] % (Auto) 9.5 (0.0-11.0) % Eos % (Auto) 14.3 H (0.0-7.0) % Baso % (Auto) 0.9 (0.0-3.0) % Neut # (Auto) 3.23 (1.7-7.0) K/uL Lymph # (Auto) 1.59 (0.90-2.90) K/uL [place] # (Auto) 0.60 (0.00-0.90) K/UL Eos # (Auto) 0.90 H (0.00-0.50) K/uL Baso # (Auto) 0.06 (0.00-0.30) K/uL Sodium 142 (135-149) mmol/L Potassium 4.1 (3.6-5.1) mmol/L Chloride 105 (96-114) mmol/L Carbon Dioxide 24 (20-32) mmol/L BUN 42 H (5-24) mg/dL Creatinine 12.8 H (0.5-1.5) mg/dL Estimated Creat Clear 6.81 Estimated GFR 5 ml/min Glucose 99 (60-115) mg/dL Calcium 9.2 (8.4-10.6) mg/dL Magnesium 1.9 (1.5-2.6) mg/dL NT-Pro-B Natriuret Pep 12940 pg/mL SARS-CoV-2 (PCR) (Negative) Influenza Type A (PCR) (Negative) Influenza Type B (PCR) (Negative) RSV (PCR) (Negative) POC Troponin I 0.06 H (0.01-0.04) ng/ml Blood Type Antibody Screen Crossmatch (AHG) 06/24/22 06/24/22 06/24/22 Range/Units 20:41 20:55 22:30 WBC (4.50-11.00) K/uL RBC (4.30-5.90) m/uL Hgb (13.5-17.5) gm/dL Hct (37.0-53.0) % MCV (80-100) fL MCH (26-34) pg MCHC (32-36) gm/dL RDW Coeff of Ivett (11.5-15.5) % Plt Count (140-440) K/uL Neut % (Auto) (42.0-72.0) % Lymph % (Auto) (20-44) % [place] % (Auto) (0.0-11.0) % Eos % (Auto) (0.0-7.0) % Baso % (Auto) (0.0-3.0) % Neut # (Auto) (1.7-7.0) K/uL Lymph # (Auto) (0.90-2.90) K/uL [place] # (Auto) (0.00-0.90) K/UL Eos # (Auto) (0.00-0.50) K/uL Baso # (Auto) (0.00-0.30) K/uL Sodium (135-149) mmol/L Potassium (3.6-5.1) mmol/L Chloride (96-114) mmol/L Carbon Dioxide (20-32) mmol/L BUN (5-24) mg/dL Creatinine (0.5-1.5) mg/dL Estimated Creat Clear Estimated GFR ml/min Glucose (60-115) mg/dL Calcium (8.4-10.6) mg/dL Magnesium (1.5-2.6) mg/dL NT-Pro-B Natriuret Pep pg/mL SARS-CoV-2 (PCR) Negative SARS-CoV-2 (Negative) Influenza Type A (PCR) Negative PCR FLU A (Negative) Influenza Type B (PCR) Negative PCR FLU B (Negative) RSV (PCR) Negative PCR RSV (Negative) POC Troponin I 0.05 H (0.01-0.04) ng/ml Blood Type O Positive Antibody Screen NEGATIVE Crossmatch (AHG) See Detail ECG Data Attestation: I personally reviewed and interpreted this ECG as follows: Prior ECG tracings: not available for review Interpretation: EKG performed at 8:02 p.m. independently interpreted by me demonstrates rate 96, no acute ST elevations or depressions, normal intervals, normal axis, AR 142, QTC 464. No prior for comparison. Critical Care Time Critical Care Time Critical Care Time: Yes (Symptomatic anemia with blood transfusion) Attestation: Prolonged critical care time due to critical inpatient capacity state wide, no tertiary transfer available. The patient required my highest level preparedness to intervene emergently and I personally spent this critical care time directly and personally managing the patient. This critical care time included: Obtaining a history; Examining the patient; Pulse oximetry; Ordering and r eviewing of studies; Arranging urgent treatment with development of a management plan; Evaluation of patients response to treatment; Frequent reassessment discussions with other providers. This critical care time was performed to assess and manage the high probability of imminent life- threatening deterioration that could result in multiorgan failure. It was exclusive of separate billable procedures and treating other patients and teaching time. Total Critical Care Time in Minutes: 360 Discharge Plan Discharge Clinical Impression: Anemia, Chest pain, End stage renal disease Patient Disposition: Home, Self-Care Condition: Stable Instructions: Chest Pain (DC), Anemia (ED) Additional Instructions: Go to dialysis today. If you have further episodes of chest pain, nos blood stool, or other concerns, return to the emergency department or if possible follow-up at a tertiary hospital Follow-up with primary care this week. Activity Level: No Restrictions Discharge Diet: Renal Prescriptions: No Action gabapentin 100 mg capsule 100 mg PO QHS benazepril 20 mg tablet 20 mg PO BID amlodipine 10 mg tablet 10 mg PO QDAY hydralazine 50 mg tablet 50 mg PO TID minoxidil 2.5 mg tablet 2.5 mg PO QDAY carvedilol 12.5 mg tablet 12.5 mg PO BID Rx Instructions: must administer with a meal/food omeprazole 20 mg capsule,delayed release(DR/EC) 20 mg PO QDAY Qty: 30 3RF Follow Up/Referrals: Stef Ho MD [Primary Care Provider] - Stand Alone Forms: [employer] Info Instructions
--- NOTE | 2022-06-24 20:22 | CRLHL7_ITS ---
For Patients: As a result of the Cures Act, medical imaging exams and procedure reports are released immediately into your electronic medical record. You may view this report before your referring provider. If you have questions, please contact your health care provider. INDICATION: Chest pain. COMPARISON: None. TECHNIQUE: Two view chest radiograph. FINDINGS: The heart appears enlarged. No focal pulmonary opacity. No significant pleural effusion or pneumothorax. IMPRESSION: Enlarged cardiac silhouette as may be seen with cardiomegaly or pericardial effusion. Correlate with echocardiogram. Dictated by Forrest Cedeno MD @ 06/24/2022 9:03:15 PM (Electronically Signed)
[2022-06-24 20:24] LABS: Troponin, Point-of-Care* 0.06 ng/ml (0.01-0.04)
[2022-06-24] MEDS: GI COCKTAIL (VISC LIDO/ANTACID) 30 ML PO (20:29)
[2022-06-24 20:32] LABS: Basophils Absolute Auto 0.06 K/uL (0.00-0.30); Basophils Percent Auto 0.9 % (0.0-3.0); Eosinophils Percent Auto 14.3 % (0.0-7.0); Hematocrit 19.6 % (37.0-53.0); Immature Granulocytes Abs Auto 0.01 K/uL (0.00-0.30); Immature Granulocytes Pct Auto 0.2 %; Lymphocytes Absolute Auto 1.59 K/uL (0.90-2.90); Lymphocytes Percent Auto 24.8 % (20-44); Mean Corpuscular HGB Conc 33 gm/dL (32-36); Mean Corpuscular Hemoglobin 28 pg (26-34); Mean Corpuscular Volume 86 fL (80-100); Monocytes Percent Auto 9.5 % (0.0-11.0); Neutrophils Absolute Auto 3.23 K/uL (1.7-7.0); Neutrophils Percent Auto 50.3 % (42.0-72.0); Platelet Count* 310 K/uL (140-440); RDW Coefficient of Variation % 13.3 % (11.5-15.5); Red Blood Count 2.29 m/uL (4.30-5.90); White Blood Count* 6.42 K/uL (4.50-11.00)
[2022-06-24 20:33] LABS: Hemoglobin* 6.5 gm/dL (13.5-17.5); Slide Review Reflex No
[2022-06-24 20:44] LABS: Chloride* 105 mmol/L (96-114); Potassium* 4.1 mmol/L (3.6-5.1); Sodium* 142 mmol/L (135-149)
[2022-06-24 20:47] LABS: Blood Urea Nitrogen* 42 mg/dL (5-24); Carbon Dioxide* 24 mmol/L (20-32); Creatinine* 12.8 mg/dL (0.5-1.5); Est. Creatinine Clearance* 6.81; Estimated Glomerular Filt Rate 5 ml/min
[2022-06-24 20:48] LABS: Calcium* 9.2 mg/dL (8.4-10.6); Glucose* 99 mg/dL (60-115); Magnesium* 1.9 mg/dL (1.5-2.6)
[2022-06-24] MEDS: PANTOPRAZOLE SODIUM 40 MG INJ IVP (21:06)
[2022-06-24 21:31] LABS: NT Pro B Type NatriureticPept* 10000 pg/mL
[2022-06-24 21:48] LABS: PCR FLU A Negative PCR FLU A (Negative); PCR FLU B Negative PCR FLU B (Negative); PCR RSV Negative PCR RSV (Negative); SARS PCR* Negative SARS-CoV-2 (Negative)
[2022-06-24 22:39] LABS: Troponin, Point-of-Care* 0.05 ng/ml (0.01-0.04)
--- NOTE | 2022-06-24 23:02 | ED.NURSE ---
no beds available at [facility], [facility], [facility], [facility] for [facility]. pt. will board in the ER till [facility] can be found.
[2022-06-24] MEDS: 0.9 % SODIUM CHLORIDE 250 ml IV (23:16)
[2022-06-25] VITALS (39 sets, daily range): BP systolic 138–166; BP diastolic 68–99; PULSE 75–101; RESP 16–18; TEMP 36.5–36.8; O2SAT 94–99
[2022-06-25] MEDS: FUROSEMIDE 10 MG/ML inj 80 MG IV (01:32)
[2022-06-25] MEDS: 0.9 % SODIUM CHLORIDE 250 ml IV (02:25)
--- NOTE | 2022-06-25 03:28 | PC.NURSE ---
patient ambulated to bathroom
== END 2022-06-25 06:02 | disposition home or self-care (01) ==
PROVIDERS: Emergency Provider Family Medicine; PCP Internal Medicine
DX: N18.6 End stage renal disease (principal); R07.9 Chest pain, unspecified; D64.9 Anemia, unspecified
CPT/HCPCS: 36415; 36430; 71046; 80048; 83735; 83880; 84484; 85025; 86850; 86900; 86901; 86922; 87502; 87634; 87635; 93005; 94761; 99285; 99291; 99292; A9270; C9113; J1940; J7050; P9016

== ENCOUNTER 2022-07-03 04:30 | Outpatient (CLI) | payer MEDICARE, MEDICAID, SELFPAY | END 2022-07-03 04:31 | disposition home or self-care (01) | LOC: AMB 07-04 10:36 | PROVIDERS: PCP Internal Medicine; Visit Provider Family Medicine | DX: R07.89 Other chest pain (principal); R06.09 Other forms of dyspnea | CPT/HCPCS: A0425; A0427 ==

== ENCOUNTER 2022-07-28 17:52 | Outpatient (CLI) | payer MEDICARE, MEDICAID, SELFPAY | END 2022-07-28 17:53 | disposition home or self-care (01) | LOC: AMB 07-31 11:40 | PROVIDERS: PCP Internal Medicine; Visit Provider Emergency Medicine Emergency Medical Services | DX: R06.09 Other forms of dyspnea (principal); R10.9 Unspecified abdominal pain | CPT/HCPCS: A0425; A0433 ==

== ENCOUNTER 2022-09-14 04:20 | Outpatient (CLI) | payer MEDICARE, MEDICAID, SELFPAY | END 2022-09-14 04:21 | disposition home or self-care (01) | LOC: AMB 10-03 03:01 | PROVIDERS: PCP Family Medicine; Visit Provider Internal Medicine | DX: R10.9 Unspecified abdominal pain (principal); R56.9 Unspecified convulsions | CPT/HCPCS: A0425; A0433 ==

== ENCOUNTER 2022-09-19 10:29 | Outpatient (CLI) | payer MEDICARE, MEDICAID, SELFPAY | END 2022-09-19 10:30 | disposition home or self-care (01) | LOC: AMB 09-24 16:07 | PROVIDERS: PCP Internal Medicine; Visit Provider Internal Medicine | DX: R07.89 Other chest pain (principal) | CPT/HCPCS: A0425; A0427 ==

== ENCOUNTER 2022-09-19 10:54 | Emergency (ER) | payer MEDICARE, MEDICAID, SELFPAY ==
[2022-09-19] VITALS (20 sets, daily range): BP systolic 150–202; BP diastolic 78–102; PULSE 97–114; RESP 18–20; TEMP 36.4–36.6; O2SAT 96–99; BMI 25.8
--- NOTE | 2022-09-19 11:25 | CRLHL7_ITS ---
For Patients: As a result of the Century Cures Act, medical imaging exams and procedure reports are released immediately into your electronic medical record. You may view this report before your referring provider. If you have questions, please contact your health care provider. INDICATION: Chest pain TECHNIQUE: Chest 1 view COMPARISON: 06/24/2022 FINDINGS: Cardiovascular and mediastinum: Cardiac silhouette is enlarged. Lungs and pleural spaces: Lungs are clear. No sign of infiltrate or mass. No sign of pleural effusion. No pneumothorax. Bones and soft tissues: No significant findings. IMPRESSION: No acute findings. Dictated by Carlos Campo MD @ 09/19/2022 12:54:55 PM (Electronically Signed)
[2022-09-19 11:31] LABS: Basophils Absolute Auto 0.04 K/uL (0.00-0.30); Basophils Percent Auto 0.6 % (0.0-3.0); Hematocrit 39.4 % (37.0-53.0); Hemoglobin* 12.7 gm/dL (13.5-17.5); Immature Granulocytes Abs Auto 0.02 K/uL (0.00-0.30); Immature Granulocytes Pct Auto 0.3 %; Lymphocytes Percent Auto 19.4 % (20-44); Mean Corpuscular HGB Conc 32 gm/dL (32-36); Mean Corpuscular Hemoglobin 29 pg (26-34); Mean Corpuscular Volume 90 fL (80-100); Monocytes Percent Auto 11.3 % (0.0-11.0); Neutrophils Absolute Auto 4.13 K/uL (1.7-7.0); Neutrophils Percent Auto 57.4 % (42.0-72.0); Platelet Count* 382 K/uL (140-440); RDW Coefficient of Variation % 15.7 % (11.5-15.5); Red Blood Count 4.38 m/uL (4.30-5.90); White Blood Count* 7.18 K/uL (4.50-11.00)
[2022-09-19 11:34] LABS: Slide Review Reflex No
[2022-09-19] MEDS: HYDROmorphone 0.5 mg/0.5 ml inj IVP ×2 (11:34→13:58)
[2022-09-19 11:53] LABS: D Dimer Quantitative* 0.71 ug/ml (0.00-0.50)
[2022-09-19 12:03] LABS: Albumin* 4.9 g/dL (3.3-5.0); Chloride* 96 mmol/L (96-114); Potassium* 3.3 mmol/L (3.6-5.1); Sodium* 133 mmol/L (135-149)
[2022-09-19 12:05] LABS: Aspartate Amino Transferase* 23 U/L (12-35); Bilirubin Total* 0.7 mg/dL (0.1-1.5); Blood Urea Nitrogen* 35 mg/dL (5-24); Carbon Dioxide* 23 mmol/L (20-32); Creatinine* 10.1 mg/dL (0.5-1.5); Est. Creatinine Clearance* 8.88; Estimated Glomerular Filt Rate 6 ml/min; Total Protein* 7.9 g/dL (6.0-8.3)
[2022-09-19 12:06] LABS: Alanine Aminotransferase* 16 U/L (4-50); Alkaline Phosphatase* 40 U/L (40-150); Calcium* 9.4 mg/dL (8.4-10.6); Glucose* 98 mg/dL (60-115)
[2022-09-19 12:17] LABS: Troponin I* 0.05 ng/mL (0.01-0.04)
--- NOTE | 2022-09-19 12:56 | ED.NURSE ---
Report given to IOANA Collado.
[2022-09-19 13:46] LABS: Troponin, Point-of-Care* 0.11 ng/ml (0.01-0.04)
[2022-09-19 14:41] LABS: Troponin I* 0.07 ng/mL (0.01-0.04)
--- NOTE | 2022-09-19 15:00 | ED_ITS ---
HPI - Chest Pain General Chief Complaint: Chest Pain Stated Complaint: chest pain Time Seen by Provider: 09/19/22 11:20 History of Present Illness HPI narrative: Patient is a 37-year-old gentleman who has end-stage renal disease. Part way through his dialysis session today he developed left-sided chest pain in the anterior axillary line. Pain was sharp and worsened with movement. He had no nausea no vomiting no fevers no chills no diaphoresis pre cut his dialysis run short by a on hour and 15 minutes. Came to the emergency room where his EKG upon my review showed sinus tachycardia no acute ST or T-wave changes. Patient has no history of coronary disease but his end-stage renal disease due to chronic hypertension. He had a borderline D-dimer borderline troponin however this was compatible with previous levels. Point of care troponin was erroneously felt to be high. Chest x-ray is unremarkable rest of the laboratory studies show chronic renal insufficiency with no other acute abnormalities. Patient had resolution of his pain with Dilaudid 0.5 mg given twice. Patient now feeling comfortable. Related Data Home Medications Medication Instructions Recorded Confirmed amlodipine 10 mg tablet 10 mg PO QDAY 04/03/22 09/12/22 benazepril 20 mg tablet 20 mg PO BID 04/03/22 09/12/22 carvedilol 12.5 mg tablet 12.5 mg PO BID 04/03/22 09/12/22 hydralazine 50 mg tablet 50 mg PO TID 04/03/22 09/12/22 minoxidil 2.5 mg tablet 10 mg PO QDAY 09/05/22 09/12/22 Allergies Allergy/AdvReac Type Severity Reaction Status Date / Time diphenhydramine Allergy Severe Seizure Verified 09/12/22 17:54 [From Benadryl] hydrocodone Allergy Severe Seizure Verified 09/12/22 17:54 morphine Allergy Severe Seizure Verified 09/12/22 17:54 coconut oil Allergy Mild Hives Verified 09/12/22 17:54 ibuprofen AdvReac Severe Kidney Verified 09/12/22 17:54 Disease NSAIDS (Non-Steroidal AdvReac Severe Kidney Verified 09/12/22 17:54 Anti-Inflamma Disease Review of Systems Status of ROS Reports: 10 or more systems reviewed and unremarkable except as noted in History and below [facility] Medical History Hypertension ?I10 - Essential (primary) hypertension (ICD-10) End stage renal disease ?N18.6 - End stage renal disease (ICD-10) Ear pain ?H92.09 - Otalgia, unspecified ear (ICD-10) Social History Smoking Status: Never smoker Do you use any of these nicotine containing products: None Second hand tobacco smoke exposure: No How often do you have a drink containing alcohol: never How often do you have six or more drinks on one occasion: Never AUDIT-C Alcohol total score: 0 Non-prescribed substance use: denies use service: No Exam Const Vital Signs, click to edit/add: Vital Signs - 24 hr 09/19/22 10:58 09/19/22 11:34 09/19/22 11:35 Temperature 97.8 F Pulse Rate 101 H 101 H Pulse Rate [Pulse Oximeter] 102 H Respiratory Rate 20 Blood Pressure 202/100 H Blood Pressure [Right Upper Arm] 187/95 H Pulse Oximetry 98 96 99 Oxygen Delivery Method Room Air 09/19/22 12:00 09/19/22 12:02 09/19/22 12:30 Temperature Pulse Rate 97 104 H 106 H Pulse Rate [Pulse Oximeter] Respiratory Rate Blood Pressure 166/98 H Blood Pressure [Right Upper Arm] Pulse Oximetry 97 96 96 Oxygen Delivery Method 09/19/22 12:32 09/19/22 13:00 09/19/22 13:02 Temperature Pulse Rate 107 H 112 H 110 H Pulse Rate [Pulse Oximeter] Respiratory Rate Blood Pressure 166/99 H 165/96 H Blood Pressure [Right Upper Arm] Pulse Oximetry 97 97 97 Oxygen Delivery Method 09/19/22 13:03 09/19/22 13:30 09/19/22 13:31 Temperature Pulse Rate 112 H 98 101 H Pulse Rate [Pulse Oximeter] Respiratory Rate Blood Pressure 154/96 H Blood Pressure [Right Upper Arm] Pulse Oximetry 98 97 96 Oxygen Delivery Method 09/19/22 14:00 09/19/22 14:02 09/19/22 14:30 Temperature Pulse Rate 109 H 110 H 99 Pulse Rate [Pulse Oximeter] Respiratory Rate Blood Pressure 159/102 H Blood Pressure [Right Upper Arm] Pulse Oximetry 98 98 96 Oxygen Delivery Method 09/19/22 14:32 Temperature Pulse Rate 114 H Pulse Rate [Pulse Oximeter] Respiratory Rate Blood Pressure 151/99 H Blood Pressure [Right Upper Arm] Pulse Oximetry 96 Oxygen Delivery Method Course Course Hospital Course: Patient seen examined. Laboratory and imaging studies personally reviewed. Vital Signs Vital signs: Initial Vital Signs Temperature 97.8 F 09/19/22 10:58 Temperature Source Temporal Artery Scan 09/19/22 10:58 Pulse Rate 102 H 09/19/22 10:58 Respiratory Rate 20 09/19/22 10:58 Blood Pressure 187/95 H 09/19/22 10:58 Blood Pressure Mean 125 H 09/19/22 10:58 Blood Pressure Position Supine 09/19/22 10:58 Pulse Oximetry 98 09/19/22 10:58 Oxygen Delivery Method Room Air 09/19/22 10:58 Vital Signs Temperature 97.8 F 09/19/22 10:58 Pulse Rate 102 H 09/19/22 10:58 Respiratory Rate 20 09/19/22 10:58 Blood Pressure 187/95 H 09/19/22 10:58 Pulse Oximetry 98 09/19/22 10:58 Oxygen Delivery Method Room Air 09/19/22 10:58 Temperature 97.8 F 09/19/22 10:58 Pulse Rate 114 H 09/19/22 14:32 Respiratory Rate 20 09/19/22 10:58 Blood Pressure 151/99 H 09/19/22 14:32 Pulse Oximetry 96 09/19/22 14:32 Oxygen Delivery Method Room Air 09/19/22 10:58 MDM - Chest Pain MDM Narrative Medical decision making narrative: Patient is a complex 37-year-old gentle with end-stage renal disease who presents with chest pain. EKG showed no acute abnormalities. Troponin borderline but consistent with previous assessments. I do not believe that the point of care troponin is accurate. Patient's pain is not consistent with angina. D-dimer is borderline I do think that is related to the end-stage renal disease as is the elevated troponin. Patient is hemodynamically stable he is on stable medications and he sees me in primary care. Asked him see me next week and he is comfortable with Tylenol Motrin ice for the left sided mid axillary line pain. Lab Data Labs: Lab Results 05/25/23 05/25/23 05/25/23 Range/Units 11:20 12:59 13:23 WBC 7.18 (4.50-11.00) K/uL RBC 4.38 (4.30-5.90) m/uL Hgb 12.7 L (13.5-17.5) gm/dL Hct 39.4 (37.0-53.0) % MCV 90 (80-100) fL MCH 29 (26-34) pg MCHC 32 (32-36) gm/dL RDW Coeff of Ivett 15.7 H (11.5-15.5) % Plt Count 382 (140-440) K/uL Neut % (Auto) 57.4 (42.0-72.0) % Lymph % (Auto) 19.4 L (20-44) % [place] % (Auto) 11.3 H (0.0-11.0) % Eos % (Auto) 11.0 H (0.0-7.0) % Baso % (Auto) 0.6 (0.0-3.0) % Neut # (Auto) 4.13 (1.7-7.0) K/uL Lymph # (Auto) 1.40 (0.90-2.90) K/uL [place] # (Auto) 0.80 (0.00-0.90) K/UL Eos # (Auto) 0.80 H (0.00-0.50) K/uL Baso # (Auto) 0.04 (0.00-0.30) K/uL D-Dimer Quant (PE/DVT) 0.71 H (0.00-0.50) ug/ml Sodium 133 L (135-149) mmol/L Potassium 3.3 L (3.6-5.1) mmol/L Chloride 96 (96-114) mmol/L Carbon Dioxide 23 (20-32) mmol/L BUN 35 H (5-24) mg/dL Creatinine 10.1 H (0.5-1.5) mg/dL Estimated Creat Clear 8.88 Estimated GFR 6 ml/min Glucose 98 (60-115) mg/dL Calcium 9.4 (8.4-10.6) mg/dL Total Bilirubin 0.7 (0.1-1.5) mg/dL AST 23 (12-35) U/L ALT 16 (4-50) U/L Alkaline Phosphatase 40 (40-150) U/L Troponin I 0.05 H 0.07 H* (0.01-0.04) ng/mL Total Protein 7.9 (6.0-8.3) g/dL Albumin 4.9 (3.3-5.0) g/dL POC Troponin I 0.11 H (0.01-0.04) ng/ml Discharge Plan Discharge Clinical Impression: Chest wall pain Condition: Stable Instructions: Chest Pain (ED) Additional Instructions: Tylenol Motrin Ice Rest Activity Level: No Restrictions Discharge Diet: Regular Prescriptions: No Action benazepril 20 mg tablet 20 mg PO BID amlodipine 10 mg tablet 10 mg PO QDAY hydralazine 50 mg tablet 50 mg PO TID carvedilol 12.5 mg tablet 12.5 mg PO BID Rx Instructions: must administer with a meal/food minoxidil 2.5 mg tablet 10 mg PO QDAY Follow Up/Referrals: Stef Ho MD [Primary Care Provider] - Stand Alone Forms: [employer] Info Instructions
--- NOTE | 2022-09-19 15:22 | ED.NURSE ---
pt is A & Ox4, denies CP at time. Understand D/C instructions. IV removed. Cab called for pt
== END 2022-09-19 15:23 | disposition home or self-care (01) ==
PROVIDERS: Emergency Provider Internal Medicine; PCP Internal Medicine
DX: R07.89 Other chest pain (principal); N18.6 End stage renal disease
CPT/HCPCS: 36415; 71045; 80053; 84484; 85025; 85379; 96374; 96375; 96376; 99283; 99284; J1170

== ENCOUNTER 2022-09-22 19:18 | Outpatient (CLI) | payer MEDICARE, MEDICAID, SELFPAY | END 2022-09-22 19:19 | disposition home or self-care (01) | LOC: AMB 10-03 04:26 | PROVIDERS: PCP Family Medicine; Visit Provider Emergency Medicine Emergency Medical Services | DX: R07.89 Other chest pain (principal) | CPT/HCPCS: A0425; A0433 ==

== ENCOUNTER 2022-10-08 07:22 | Outpatient (CLI) | payer MEDICARE, MEDICAID, SELFPAY | END 2022-10-08 07:23 | disposition home or self-care (01) | LOC: AMB 10-10 09:24 | PROVIDERS: PCP Family Medicine; Visit Provider Family Medicine | DX: R07.89 Other chest pain (principal); G43.909 Migraine, unspecified, not intractable, without status migrainosus | CPT/HCPCS: A0425; A0427 ==

== ENCOUNTER 2022-10-16 02:52 | Outpatient (CLI) | payer MEDICARE, MEDICAID, SELFPAY | END 2022-10-16 02:53 | disposition home or self-care (01) | LOC: AMB 10-17 12:14 | PROVIDERS: Visit Provider Family Medicine | DX: R51.9 Headache, unspecified (principal); R22.43 Localized swelling, mass and lump, lower limb, bilateral | CPT/HCPCS: A0425; A0429 ==

== ENCOUNTER 2022-10-16 03:14 | Emergency (ER) | payer MEDICARE, MEDICAID, SELFPAY ==
[2022-10-16 03:18] VITALS: BP 159/79; PULSE 110; RESP 20; TEMP 37.1; O2SAT 97; BMI 24.6
--- NOTE | 2022-10-16 03:23 | ED_ITS ---
HPI - General Adult General Time Seen by Provider: 03:23 Date Seen: 10/16/22 Chief complaint: Headache/Migraine Stated complaint: headache, edema Time Seen by Provider: 10/16/22 03:21 Source: patient, EMS, RN notes reviewed and old records reviewed Mode of arrival: ambulatory Limitations: no limitations History of Present Illness HPI narrative: 37-year-old male with history of end-stage renal disease on dialysis who comes in today with a headache. History of prior visits to emergency department for headaches. He says this headache is been clinic couple of days, primarily in the back of the head. No photophobia, nausea, vomiting, diarrhea. Denies fever chills, denies head injury. This is Dilaudid works well for his headaches, fentanyl does not work well. Denies chest pain or shortness of breath, has a cough this been going on for couple months. Related Data Home Medications Medication Instructions Recorded Confirmed amlodipine 10 mg tablet 10 mg PO QDAY 04/03/22 10/16/22 benazepril 20 mg tablet 20 mg PO BID 04/03/22 10/16/22 carvedilol 12.5 mg tablet 12.5 mg PO BID 04/03/22 10/16/22 hydralazine 50 mg tablet 50 mg PO TID 04/03/22 10/16/22 minoxidil 2.5 mg tablet 10 mg PO QDAY 09/05/22 10/16/22 Allergies Allergy/AdvReac Type Severity Reaction Status Date / Time diphenhydramine Allergy Severe Seizure Verified 10/16/22 05:10 [From Benadryl] hydrocodone Allergy Severe Seizure Verified 10/16/22 05:10 morphine Allergy Severe Seizure Verified 10/16/22 05:10 coconut oil Allergy Mild Hives Verified 10/16/22 05:10 ibuprofen AdvReac Severe Kidney Verified 10/16/22 05:10 Disease NSAIDS (Non-Steroidal AdvReac Severe Kidney Verified 10/16/22 05:10 Anti-Inflamma Disease [facility] Medical History (Updated 10/16/22 @ 06:43 by Ponce Lu MD) Seizures ?R56.9 - Unspecified convulsions (ICD-10) Congestive heart failure ?I50.9 - Heart failure, unspecified (ICD-10) Hypertension ?I10 - Essential (primary) hypertension (ICD-10) End stage renal disease ?N18.6 - End stage renal disease (ICD-10) Ear pain ?H92.09 - Otalgia, unspecified ear (ICD-10) Social History Smoking Status: Never smoker Do you use any of these nicotine containing products: None Second hand tobacco smoke exposure: No How often do you have a drink containing alcohol: never How often do you have six or more drinks on one occasion: Never AUDIT-C Alcohol total score: 0 Non-prescribed substance use: denies use service: No Exam Narrative: Exam Narrative: General: Well-developed and well-nourished, no acute distress Head: Atraumatic and normocephalic Eyes: Pupils are equal reactive, extraocular motions intact, conjunctiva clear ENT: External nose and ears are normal, posterior pharynx without erythema or exudate Neck: No midline cervical tenderness, full spontaneous range of motion the neck, trachea midline, no adenopathy Heart: Tachycardic rate and rhythm with 5/6 systolic murmur Lungs: Clear to auscultation bilaterally without wheezes or crackles Abdomen: Soft, nontender, nondistended with active bowel sounds Musculoskeletal: No tenderness, deformity, trace bilateral foot and ankle edema Neurologic: Awake, alert, and oriented x3, no gross focal neurologic deficits, cranial nerves intact as tested Psych: Mood and affect are appropriate Skin: No rashes Const: Vital Signs, click to edit/add: Vital Signs - 24 hr 10/16/22 03:18 10/16/22 05:56 Temperature 98.8 F Pulse Rate [Left P ulse Oximeter] 110 H 110 H Respiratory Rate 20 20 Blood Pressure [Ri ght Upper Arm] 159/79 H Pulse Oximetry 97 95 Oxygen Delivery Me thod Room Air Room Air Course Course Hospital Course: Patient seen examined, prior records reviewed. Dialysis patient presents today with headache and some mild foot and ankle swelling. On initial exam, he has trace edema of the feet and ankles bilaterally. He is tachycardic with a heart murmur. Review of prior records shows patient has been tachycardic at multiple visits since end of August, also has had an ongoing cough for couple of months. Labs ordered along with chest x-ray, patient also found to have a heart murmur which he says is old but has not been evaluated. Mild hypoxia and injection with thick tachycardia, concern for possible pulmonary embolism. Review of prior emergency department visits shows patient had an elevated D-dimer of 0.71 at the end of August coinciding with his tachycardia but no imaging was done in relation to this period. Reevaluation(s) Time of Reevaluation #1: 04:27 Reevaluation #1: Labs independently interpreted by me demonstrate reassuring CBC, creatinine 12.3 with normal potassium. BNP elevated at 6020, unclear significance in this dialysis patient although he does have some lower extremities swelling and history of heart failure, however prior of 10,000 in May 2022 so this is somewhat lower. Chest x-ray with perihilar opacities concerning for active airway versus viral infection as well as subtle airspace opacity in the right base concerning for pneumonia. Given tachycardia, hypoxia, ongoing nonproductive cough, elevated D-dimer prior visit concern for pulmonary embolism. Care was discussed with Nephrology, Dr. Calix at [place] who recommends proceeding with CT contrast and then regular dialysis on . Time of Reevaluation #2: 06:43 Reevaluation #2: CT scan of the chest independently interpreted by me does not demonstrate any acute pulmonary edema, effusion, infiltrate, or embolism. Patient is stable for discharge with continued outpatient follow-up. Headache improved after Dilaudid and Zofran. Vital Signs Vital signs: Initial Vital Signs Temperature 98.8 F 10/16/22 03:18 Temperature Source Temporal Artery Scan 10/16/22 03:18 Pulse Rate 110 H 10/16/22 03:18 Pulse Rhythm Regular 10/16/22 03:18 Pulse Strength 3+ Normal 10/16/22 03:18 Respiratory Rate 20 10/16/22 03:18 Blood Pressure 159/79 H 10/16/22 03:18 Blood Pressure Mean 105 10/16/22 03:18 Pulse Oximetry 97 10/16/22 03:18 Oxygen Delivery Method Room Air 10/16/22 03:18 Vital Signs Temperature 98.8 F 10/16/22 03:18 Pulse Rate 110 H 10/16/22 03:18 Respiratory Rate 20 10/16/22 03:18 Blood Pressure 159/79 H 10/16/22 03:18 Pulse Oximetry 97 10/16/22 03:18 Oxygen Delivery Method Room Air 10/16/22 03:18 Temperature 98.8 F 10/16/22 03:18 Pulse Rate 110 H 10/16/22 05:56 Respiratory Rate 20 10/16/22 05:56 Blood Pressure 159/79 H 10/16/22 03:18 Pulse Oximetry 95 10/16/22 05:56 Oxygen Delivery Method Room Air 10/16/22 05:56 Medical Decision Making Lab Data Labs: Lab Results 10/16/22 Range/Units 03:25 WBC 5.32 (4.50-11.00) K/uL RBC 4.55 (4.30-5.90) m/uL Hgb 12.6 L (13.5-17.5) gm/dL Hct 40.9 (37.0-53.0) % MCV 90 (80-100) fL MCH 28 (26-34) pg MCHC 31 L (32-36) gm/dL RDW Coeff of [place] 14.9 (11.5-15.5) % Plt Count 343 (140-440) K/uL Neut % (Auto) 43.1 (42.0-72.0) % Lymph % (Auto) 31.8 (20-44) % [place] % (Auto) 13.7 H (0.0-11.0) % Eos % (Auto) 10.3 H (0.0-7.0) % Baso % (Auto) 0.9 (0.0-3.0) % Neut # (Auto) 2.29 (1.7-7.0) K/uL Lymph # (Auto) 1.69 (0.90-2.90) K/uL [place] # (Auto) 0.70 (0.00-0.90) K/UL Eos # (Auto) 0.50 (0.00-0.50) K/uL Baso # (Auto) 0.05 (0.00-0.30) K/uL Sodium 139 (135-149) mmol/L Potassium 4.2 (3.6-5.1) mmol/L Chloride 97 (96-114) mmol/L Carbon Dioxide 30 (20-32) mmol/L BUN 27 H (5-24) mg/dL Creatinine 12.3 H (0.5-1.5) mg/dL Estimated Creat Clear 7.29 Estimated GFR 5 ml/min Glucose 96 (60-115) mg/dL Calcium 10.9 H (8.4-10.6) mg/dL Magnesium 2.3 (1.5-2.6) mg/dL NT-Pro-B Natriuret Pep 6020 pg/mL Discharge Plan Discharge Clinical Impression: Cough, Headache, Bilateral swelling of feet, End stage renal disease Patient Disposition: Home, Self-Care Condition: Stable Instructions: Acute Headache (DC), Leg Edema (ED) Activity Level: No Restrictions Discharge Diet: Regular Prescriptions: No Action benazepril 20 mg tablet 20 mg PO BID amlodipine 10 mg tablet 10 mg PO QDAY hydralazine 50 mg tablet 50 mg PO TID carvedilol 12.5 mg tablet 12.5 mg PO BID Rx Instructions: must administer with a meal/food minoxidil 2.5 mg tablet 10 mg PO QDAY Follow Up/Referrals: Dagoberto Mckeon MD [Staff Physician] - Stand Alone [facility]: [facility] Info Inst[facility]
--- NOTE | 2022-10-16 03:30 | CRLHL7_ITS ---
For Patients: As a result of the Cures Act, medical imaging exams and procedure reports are released immediately into your electronic medical record. You may view this report before your referring provider. If you have questions, please contact your health care provider. INDICATION: cough, tachycardia TECHNIQUE: Chest 1 views. COMPARISON: 09/19/2022 FINDINGS: Cardiovascular and mediastinum: Heart size and vasculature are normal in caliber and appearance. Lungs and pleural spaces: Perihilar airspace opacities concerning for reactive airways or viral infection. More subtle airspace opacity at the right lung base concerning for superimposed pneumonia. No sign of pleural effusion. No pneumothorax. Bones and soft tissues: No significant findings. IMPRESSION: Perihilar airspace opacities concerning for reactive airways or viral infection. More subtle airspace opacity at the right lung base concerning for superimposed pneumonia. Dictated by Brooks Giron MD @ 10/16/2022 4:12:17 AM (Electronically Signed)
[2022-10-16] MEDS: HYDROmorphone 0.5 mg/0.5 ml inj IVP ×2 (03:35→05:16)
[2022-10-16 03:43] LABS: Basophils Absolute Auto 0.05 K/uL (0.00-0.30); Basophils Percent Auto 0.9 % (0.0-3.0); Eosinophils Percent Auto 10.3 % (0.0-7.0); Hematocrit 40.9 % (37.0-53.0); Hemoglobin* 12.6 gm/dL (13.5-17.5); Immature Granulocytes Abs Auto 0.01 K/uL (0.00-0.30); Immature Granulocytes Pct Auto 0.2 %; Lymphocytes Absolute Auto 1.69 K/uL (0.90-2.90); Lymphocytes Percent Auto 31.8 % (20-44); Mean Corpuscular HGB Conc 31 gm/dL (32-36); Mean Corpuscular Hemoglobin 28 pg (26-34); Mean Corpuscular Volume 90 fL (80-100); Monocytes Percent Auto 13.7 % (0.0-11.0); Neutrophils Absolute Auto 2.29 K/uL (1.7-7.0); Neutrophils Percent Auto 43.1 % (42.0-72.0); Platelet Count* 343 K/uL (140-440); RDW Coefficient of Variation % 14.9 % (11.5-15.5); Red Blood Count 4.55 m/uL (4.30-5.90); White Blood Count* 5.32 K/uL (4.50-11.00)
[2022-10-16 03:44] LABS: Slide Review Reflex No
[2022-10-16 03:57] LABS: Chloride* 97 mmol/L (96-114); Potassium* 4.2 mmol/L (3.6-5.1); Sodium* 139 mmol/L (135-149)
[2022-10-16 04:00] LABS: Blood Urea Nitrogen* 27 mg/dL (5-24); Calcium* 10.9 mg/dL (8.4-10.6); Carbon Dioxide* 30 mmol/L (20-32); Creatinine* 12.3 mg/dL (0.5-1.5); Est. Creatinine Clearance* 7.29; Estimated Glomerular Filt Rate 5 ml/min; Glucose* 96 mg/dL (60-115)
[2022-10-16 04:01] LABS: Magnesium* 2.3 mg/dL (1.5-2.6)
[2022-10-16 04:13] LABS: NT Pro B Type NatriureticPept* 6020 pg/mL
--- NOTE | 2022-10-16 04:26 | CRLHL7_ITS ---
For Patients: As a result of the Century Cures Act, medical imaging exams and procedure reports are released immediately into your electronic medical record. You may view this report before your referring provider. If you have questions, please contact your health care provider. INDICATION: Cough, tachycardia, hypoxia, elevated D-dimer TECHNIQUE: CT chest PE was acquired with 95 cc Isovue 370 IV contrast. COMPARISON: None. FINDINGS: Heart and vasculature: Contrast opacification of the pulmonary arterial is inadequate. Pulmonary embolus cannot be excluded. Heart size is normal. Thoracic aorta and pulmonary artery are normal in caliber. Lungs and pleural: No suspicious nodules or infiltrates. No pleural effusions, pleural thickening, or pneumothorax. Lymph nodes/mediastinum: No mediastinal, hilar, or axillary adenopathy. Chest wall: Subcentimeter left axillary lymph nodes which are nonspecific and may be reactive. Upper abdomen: No acute or significant findings. Bones: Unremarkable for age. IMPRESSION: Bolus timing is suboptimal to evaluate for pulmonary embolus. Pulmonary embolus cannot be excluded. Consider repeat imaging with improved bolus timing if there is further clinical concern for pulmonary embolus. Otherwise, no evidence of acute cardiopulmonary process. Subcentimeter left axillary lymph nodes which are nonspecific and may be reactive. Please note that all CT scans at this facility use dose modulation, iterative reconstruction, and/or weight-based dosing when appropriate to reduce radiation dose to as low as reasonably achievable. Dictated by Brooks Giron MD @ 10/16/2022 6:49:01 AM (Electronically Signed)
[2022-10-16] MEDS: ONDANSETRON 2 MG/ML inj 4 MG IVP (05:14)
[2022-10-16] MEDS: IPRAT-ALBUT 0.5-2.5 MG/3 ML NEB 1 NEB IH (05:17)
[2022-10-16 05:56] VITALS: PULSE 110; RESP 20; O2SAT 95
== END 2022-10-16 07:26 | disposition home or self-care (01) ==
PROVIDERS: Emergency Provider Family Medicine
DX: R51.9 Headache, unspecified (principal); R22.43 Localized swelling, mass and lump, lower limb, bilateral; N18.6 End stage renal disease
CPT/HCPCS: 36415; 71045; 71260; 80048; 83735; 83880; 85025; 94640; 96374; 96375; 96376; 99284; 99285; J1170; J2405; Q9967

== ENCOUNTER 2022-10-17 13:46 | Outpatient (CLI) | payer MEDICARE, MEDICAID, SELFPAY | END 2022-10-17 13:47 | disposition home or self-care (01) | LOC: AMB 10-18 07:14 | PROVIDERS: Visit Provider Internal Medicine | DX: R07.89 Other chest pain (principal) | CPT/HCPCS: A0425; A0429 ==

== ENCOUNTER 2022-10-17 13:57 | Emergency (ER) | payer MEDICARE, MEDICAID, SELFPAY ==
[2022-10-17 13:59] VITALS: BP 101/77; PULSE 95; RESP 20; TEMP 36.8; O2SAT 98; BMI 24.1
--- NOTE | 2022-10-17 15:24 | ED.SOB ---
HPI - SOB/Dyspnea General Chief Complaint: Cough Stated Complaint: Cough Time Seen by Provider: 10/17/22 15:19 History of Present Illness HPI Narrative: Patient is a 37-year-old gentleman well known to me who presents with cough. Patient has end-stage renal disease and in nearly completed his dialysis run today. Patient was in yesterday and had extensive workup including CT of the chest for pulmonary embolism no signs of pneumonia. This symptoms seem to be viral in etiology with no CHF findings either. Patient take simply cannot stop coughing. He has had no fevers no chills no night sweats no chest pain no orthopnea no PND. Patient presents today as a symptoms are still bothering him. Overall symptoms been going on for the last 3-4 days. No Further definitive treatment was offered last night according to the patient. Related Data Home Medications Medication Instructions Recorded Confirmed amlodipine 10 mg tablet 10 mg PO QDAY 04/03/22 10/16/22 benazepril 20 mg tablet 20 mg PO BID 04/03/22 10/16/22 carvedilol 12.5 mg tablet 12.5 mg PO BID 04/03/22 10/16/22 hydralazine 50 mg tablet 50 mg PO TID 04/03/22 10/16/22 minoxidil 2.5 mg tablet 10 mg PO QDAY 09/05/22 10/16/22 Previous Rx's Medication Instructions Recorded codeine 8 mg-guaifenesin 200 mg/5 10 ml PO Q4-6H PRN cough #473 mL 10/17/22 mL oral liquid prednisone 20 mg tablet 20 mg PO DAILY #7 tabs 10/17/22 Allergies Allergy/AdvReac Type Severity Reaction Status Date / Time diphenhydramine Allergy Severe Seizure Verified 10/17/22 13:59 [From Benadryl] hydrocodone Allergy Severe Seizure Verified 10/17/22 13:59 morphine Allergy Severe Seizure Verified 10/17/22 13:59 coconut oil Allergy Mild Hives Verified 10/17/22 13:59 ibuprofen AdvReac Severe Kidney Verified 10/17/22 13:59 Disease NSAIDS (Non-Steroidal AdvReac Severe Kidney Verified 10/17/22 13:59 Anti-Inflamma Disease Review of Systems Status of ROS: Reports: 10 or more systems reviewed and unremarkable except as noted in History and below [facility] Medical History Seizures ?R56.9 - Unspecified convulsions (ICD-10) Congestive heart failure ?I50.9 - Heart failure, unspecified (ICD-10) Hypertension ?I10 - Essential (primary) hypertension (ICD-10) End stage renal disease ?N18.6 - End stage renal disease (ICD-10) Ear pain ?H92.09 - Otalgia, unspecified ear (ICD-10) Social History Smoking Status: Never smoker Do you use any of these nicotine containing products: None Second hand tobacco smoke exposure: No How often do you have a drink containing alcohol: never How often do you have six or more drinks on one occasion: Never AUDIT-C Alcohol total score: 0 Non-prescribed substance use: denies use service: No Exam Narrative: Exam Narrative: EXAM GENERAL: Patient appears chronically ill. EYES: No scleral icterus. ENT: Tympanic membranes and oropharynx normal. THYROID: no thyroid nodules or thyromegaly. LYMPH: No supraclavicular or cervical lymphadenopathy. SKIN: Visible skin seen during exam normal or with benign process only. EXT: No dependent lower extremity pedal edema. 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 HEART: Regular rhythm with 2/6 systolic murmur. LUNGS: Clear to auscultation bilaterally with no crackles or wheezes. ABD: Soft, non tender, non distended. PSYCH: Good eye contact, speech is not pressured. Const: Vital Signs, click to edit/add: Vital Signs - 24 hr 10/17/22 13:59 Temperature 98.3 F Pulse Rate [Right Pulse Oximeter] 95 Respiratory Rate 20 Blood Pressure [Ri ght Upper Arm] 101/77 Pulse Oximetry 98 Oxygen Delivery Me thod Room Air Course Course Hospital Course: Patient is well known to me in fact I am actually his primary physician. I did review the workup from last night. He appears to be largely unchanged in as a good oxygen saturation. I do think that is reasonable place him on a short course of prednisone as well as Robitussin with codeine with close outpatient follow-up. Plan see him back in the office and he will report any changes in the interim. Vital Signs Vital signs: Initial Vital Signs Temperature 98.3 F 10/17/22 13:59 Temperature Source Temporal Artery Scan 10/17/22 13:59 Pulse Rate 95 10/17/22 13:59 Pulse Rhythm Regular 10/17/22 13:59 Pulse Strength 3+ Normal 10/17/22 13:59 Respiratory Rate 20 10/17/22 13:59 Blood Pressure 101/77 10/17/22 13:59 Blood Pressure Mean 85 10/17/22 13:59 Blood Pressure Position Sitting 10/17/22 13:59 Pulse Oximetry 98 10/17/22 13:59 Oxygen Delivery Method Room Air 10/17/22 13:59 Vital Signs Temperature 98.3 F 10/17/22 13:59 Pulse Rate 95 10/17/22 13:59 Respiratory Rate 20 10/17/22 13:59 Blood Pressure 101/77 10/17/22 13:59 Pulse Oximetry 98 10/17/22 13:59 Oxygen Delivery Method Room Air 10/17/22 13:59 Temperature 98.3 F 10/17/22 13:59 Pulse Rate 95 10/17/22 13:59 Respiratory Rate 20 10/17/22 13:59 Blood Pressure 101/77 10/17/22 13:59 Pulse Oximetry 98 10/17/22 13:59 Oxygen Delivery Method Room Air 10/17/22 13:59 MDM - SOB/Dyspnea MDM Narrative Medical decision making narrative: As above Differential Diagnosis Differential diagnosis: Likely acute exacerbation of chronic obstructive airways disease, congestive heart failure, community acquired pneumonia, asthma with exacerbation and pulmonary embolism Discharge Plan Discharge Clinical Impression: Bronchitis Patient Disposition: Home, Self-Care Condition: Stable Instructions: Acute Bronchitis (ED) Additional Instructions: Continue outpatient dialysis Prednisone and Robitussin with codeine as directed Follow-up Dr. Ho in 1 week Activity Level: No Restrictions Discharge Diet: Regular Prescriptions: New codeine-guaifenesin 8-200 mg/5 mL liquid 10 ml PO Q4-6H PRN (Reason: cough) Qty: 473 0RF prednisone 20 mg tablet 20 mg PO DAILY Qty: 7 0RF No Action benazepril 20 mg tablet 20 mg PO BID amlodipine 10 mg tablet 10 mg PO QDAY hydralazine 50 mg tablet 50 mg PO TID carvedilol 12.5 mg tablet 12.5 mg PO BID Rx Instructions: must administer with a meal/food minoxidil 2.5 mg tablet 10 mg PO QDAY Follow Up/Referrals: Provider,Not a Local [Primary Care Provider] - Stand Alone Forms: [employer] Info Instructions
== END 2022-10-17 15:43 | disposition home or self-care (01) ==
LOC: ED 15:29
PROVIDERS: Emergency Provider Internal Medicine
DX: J40 Bronchitis, not specified as acute or chronic (principal)
CPT/HCPCS: 99283

== ENCOUNTER 2022-10-19 02:27 | Outpatient (CLI) | payer MEDICARE, MEDICAID, SELFPAY | END 2022-10-19 02:28 | disposition home or self-care (01) | LOC: AMB 10-21 11:10 | PROVIDERS: PCP Internal Medicine; Visit Provider Internal Medicine | DX: R07.89 Other chest pain (principal) | CPT/HCPCS: A0425; A0429 ==

== ENCOUNTER 2022-10-28 23:51 | Outpatient (CLI) | payer MEDICARE, MEDICAID, SELFPAY | END 2022-10-28 23:52 | disposition home or self-care (01) | LOC: AMB 10-30 18:07 | PROVIDERS: PCP Internal Medicine; Visit Provider Family Medicine | DX: R56.9 Unspecified convulsions (principal); R53.1 Weakness | CPT/HCPCS: A0425; A0429 ==

== ENCOUNTER 2023-02-04 18:52 | Outpatient (CLI) | payer MEDICARE, MEDICAID, SELFPAY | END 2023-02-04 18:53 | disposition home or self-care (01) | LOC: AMB 02-05 17:03 | PROVIDERS: PCP Internal Medicine; Visit Provider Family Medicine | DX: R10.9 Unspecified abdominal pain (principal); N18.6 End stage renal disease | CPT/HCPCS: A0425; A0427 ==

== ENCOUNTER 2023-05-06 10:52 | Outpatient (CLI) | payer MEDICARE, MEDICAID, SELFPAY ==
--- OUTSIDE RECORDS SUMMARY | 2023-05-09 15:53 | XMS_ITS | Encounter Summary ---
Author Name Unknown Organization [facility] Address [address] [place] [address] Care Team Providers Care Benefits Consulting Analyst Name Role Phone No Ref-Primary, Physician Primary Care Provider Reason for Visit * Reason Comments Abdominal Pain +headache +nausea/vo miting, dialysis patient Encounter Details Date Type Department Care Team (Late st Contact Info) Description 09/14/2022 5:05 AM CDT - 09/14/2022 9:34 AM CDT Emergency [facility] Emergency Dept [address] [place] [address] [phone] Senthil Stevenson MD [facility] [address] [place], [place] [id number] Rachid Wood MD [facility] [address] [place] [address] ESRD on hemodialysis (H); Essential hypertension; Abdominal [...] directed by your provider today. Before using hsfv-gyj-ijiijjx medications, ask your provider and make sure [...] Care Everywhere. * Earache, No Infection (Adult) (Dominican) documented in this encounter Medications at Time [...] Admission notes from August 18 at the [facility] were reviewed - patient admitted for medication [...] CDT EXAM: CT TEMPORAL W/O CONTRAST LOCATION: [facility] DATE/TIME: 09/14/2022 6:48 AM CDT INDICATION: Bilateral [...] 09/14/2022 EXAM: CT TEMPORAL W/O CONTRAST LOCATION: [facility] DATE/TIME: 09/14/2022 6:48 AM CDT INDICATION: Bilateral [...] CT ABDOMEN AND PELVIS WITHOUT CONTRAST LOCATION: [facility] DATE/TIME: 09/14/2022, 6:47 AM CDT INDICATION: Abdominal [...] CT ABDOMEN AND PELVIS WITHOUT CONTRAST LOCATION: [facility] DATE/TIME: 09/14/2022, 6:47 AM CDT INDICATION: Abdominal [...] for abdominal aortic aneurysm. Senthil Stevenson MD [facility] [place]LES * (ABNORMAL) CBC with platelets [...] Stevenson MD LAB - BLOOD ORDERABL ES [facility] Lab [address] Lab (1st floor, no room number) [place] [address], [place] [phone] * Lipase (09/14/2022 5:48 AM CDT) Lipase 50 13 - 60 U/L 09/14/2022 6:18 AM CDT [facility] Blood BLOOD SPECIMEN / Unknown Venipuncture / Unknown 09/14/2022 5:48 AM CDT 09/14/2022 5:53 AM CDT Senthil Stevenson MD LAB - BLOOD ORDERABL ES Performing Organization Address [facility]/ZIP Co de Phone Number [facility] [address] Lab (1st floor, no room number) [place] [address], [place] [phone] * (ABNORMAL) Lactic acid whole blood (09/14/2022 5:48 AM CDT) Lactic Acid 0.5(L) 0.7 - 2.0 mmol/L 09/14/2022 5:57 AM CDT [facility] Blood BLOOD SPECIMEN / Unknown Venipuncture / Unknown 09/14/2022 5:48 AM CDT 09/14/2022 5:52 AM CDT Senthil Stevenson MD LAB - BLOOD ORDERABL ES Performing Organization Address [facility]/ZIP Co de Phone Number [facility] [address] Lab (1st floor, no room number) [place] [address], [place] [phone] * (ABNORMAL) Comprehensive metabolic panel (09/14/2022 5:48 [...] MD LAB - BLOOD ORDERABL ES LABORATORY [facility] Acute Care Lab [address] [facility] Lab (1st floor, no room number) [place] [address], [place] [phone] documented in this encounter Visit Diagnoses Diagnosis [...] analgesic side effects. Hold while on IV DRUM BUILDER or with regular IV opioid dosing. $Given [...] analgesic side effects. Hold while on IV DRUM BUILDER or with regular IV opioid dosing. 0551 ($Given - Provi krystina: Alexia Wilkinson RN)0708 ($Given - Provider: Sherlyn Shepard RN) ondansetron (ZOFRAN) injection 4 mg (COMPLETED) 4 mg, Intravenous, ONCE PRN, nausea, vomiting, Administer over 2-5 Minutes, Starting on 09/14/22 at 0525, For 1 dose, Irritant. 0545 ($Given - Provi krystina: Alexia Wilkinson RN) documented in this encounter Care Teams Benefits Consulting Analyst Relationship Specialty Start Date End Date No Ref-Primary, Physician PCP - General 04/14/22 documented as of this encounter
--- OUTSIDE RECORDS SUMMARY | 2023-05-09 15:53 | XMS_ITS | Clinical Summary ---
Author Name Unknown Organization [facility] Address [address] [place] [address] Care Team Providers Care Cathode Ray Tube Salvage Processor Name Role Phone No Ref-Primary, Physician Primary [...] Advance Directives For more information, please contact: [phone] Latest Code Status on File Code Status [...] with patient/ legal decision maker Care Teams Cathode Ray Tube Salvage Processor Relationship Specialty Start Date End Date No Ref-Primary, Physician PCP - General 04/14/22
--- OUTSIDE RECORDS SUMMARY | 2023-05-09 15:53 | XMS_ITS | Encounter Summary ---
Author Name Unknown Organization [facility] Address [address] [place] [address] Care Team Providers Care Director Case Name Role Phone No Ref-Primary, Physician Primary [...] on filedocumented in this encounter Care Teams Director Case Relationship Specialty Start Date End Date No Ref-Primary, Physician PCP - General 04/14/22 documented as of this encounter
--- OUTSIDE RECORDS SUMMARY | 2023-05-09 15:53 | XMS_ITS | Referral Summary ---
Author Name Unknown Organization [facility] Address [address] [place] [address] Care Team Providers Care Marketing Engineer Name Role Phone No Ref-Primary, Physician [...] Advance Directives For more information, please contact: [phone] Latest Code Status on File Code Status [...] with patient/ legal decision maker Care Teams Marketing Engineer Relationship Specialty Start Date End Date No Ref-Primary, Physician PCP - General 04/14/22
--- OUTSIDE RECORDS SUMMARY | 2023-05-09 15:54 | XMS_ITS | Encounter Summary ---
Author Name Unknown Organization [facility] Address [address] [place] [address] Care Team Providers Care Product Finisher Name Role Phone No Ref-Primary, Physician Primary [...] Coronavirus/COVID-19? No / Unsure 07/03/2022 5:40 AM [employer] STORE COURTESY CLERK documented as of this encounter Plan of Treatment Not on file documented as of this encounter Visit Diagnoses Not on filedocumented in this encounter Care Teams Product Finisher Relationship Specialty Start Date End Date No Ref-Primary, Physician PCP - General 04/14/22 documented as of this encounter
--- OUTSIDE RECORDS SUMMARY | 2023-05-09 15:54 | XMS_ITS | Clinical Summary ---
Author Name Unknown Organization [facility] Address [address] [place] [id number] Care Team Providers Care Media Director Name Role Phone Elsewhere, Pcp Primary Care Provider Unavailabl e Source Comments Patient records contain information from all sites at [facility]. For routine questions regarding patient records, call [phone] during business hours, M-F 8:00 AM - 5:00 PM Central Time. Record requests for emergency care only can be directed to [phone] at any time.[facility] Allergies Active Allergy Reactions Criticality Noted Date [...] Only Division of Nephrology and Hypertension in [place], [place] [address] [place] [address] Concetta Mejía M.D., Ph.D. 04/08/2023 Orders Only Division of Nephrology and Hypertension, [facility], in [place], [place] [address] [place] [address] Drew Mo APRN, C.N.P., M.S.N. 04/02/2023 Orders Only Pharmacy Prior Auth RO [phone] Marko Hager 04/01/2023 Orders Only Division of Nephrology and Hypertension, [facility], in [place], [place] [address] [place] [address] Drew Mo APRN, C.N.P., M.S.N. 03/25/2023 Orders Only Division of Nephrology and Hypertension in [place], [place] [address] [place] [address] Garth Burdick Jr., D.O. 03/18/2023 Orders Only Division of Nephrology and Hypertension, [facility], in [place], [place] [address] [place] [address] Drew Mo APRN, C.N.P., M.S.N. 03/04/2023 Orders Only Division of Nephrology and Hypertension, [facility], in [place], [place] [address] [place] [address] Drew Mo APRN, C.N.P., M.S.N. 02/24/2023 Orders Only Division of Nephrology and Hypertension, [facility], in [place], [place] [address] [place] [address] Drew Mo APRN, C.NRashida., M.S.N. 02/19/2023 Orders Only Division of Nephrology and Hypertension, [facility], in [place], [place] [address] [place] [address] Drew Mo APRN, C.NRashida., M.S.N. 02/11/2023 Orders Only Division of Nephrology and Hypertension in [place], [place] [address] [place] [address] Concetta Mejía M.D., Ph.D. 02/04/2023 11:19 PM CDT - 02/07/2023 2:40 PM CDT Hospital Encounter [facility], [facility], Eighth Floor [address] [place] [address] Renay Hernandez M.D. Beiermann, Elizabeth W, M.D. [...] living situation today? I have a [facility] place to live 11/14/2022 Sex and [...] this topic Medical Devices Implanted Type Area Anatomical Embalmer Device Identifier Shelf Expiration Date Model / [...] MAGNESIUM, S STAT 02/06/2023 7:40 AM CDT from Last 3 Months Results * (ABNORMAL) Hemoglobin (02/07/2023 11:02 AM CDT) Only the most recent of2 resultswithin the time period is included. Hemoglobin 8.2(L) 13.2 - 16.6 g/dL 02/07/2023 11:51 AM CDT DTL Blood (Blood, Venous) 02/07/2023 11:02 AM CDT 02/07/2023 11:42 AM CDT Elvira Sanchez APRN, C.N.P., D.N .P. LAB BLOOD ADD-ON [facility] [address] [place] [address], [place] DTL [facility] [address] [place] [address] * (ABNORMAL) CBC with Differential, Blood (02/07/2023 [...] APRN, C.N.P., D.N .P. LAB BLOOD ADD-ON [facility] [address] [place] [address], [facility] DTL [facility] [address] [place] [address] [facility] [address] [place] [address] * (ABNORMAL) Basic Metabolic Panel (02/07/2023 7:46 AM CDT) [facility] Potassium, S 4.3 3.6 - 5.2 mmol/L [...] APRN, C.N.P., D.N .P. LAB BLOOD ADD-ON [facility] [address] DTL [facility] 200 [place] [address] * Transfuse Red Blood Cells : (02/06/2023 1:13 PM CDT) Elvira Sanchez APRN, C.N.P., D.N .P. BLOOD TRANSFUSION ORDERABLES * Type and Screen (with Reflex Antibody ID) (02/06/2023 9:37 AM CDT) [facility] Pos Not applicable 02/06/2023 10:06 AM CDT STRM Antibody Screen Negative Negative 02/06/2023 10:21 AM CDT STRM Type & Screen Expiration 02/09/2023 23:59 02/06/2023 10:06 AM CDT STRM Testing Location Brandy DEFAULT 02/06/2023 9:42 AM CDT STRM Blood (Blood, Venous) 02/06/2023 9:37 AM CDT 02/06/2023 9:42 AM CDT Elvira Sanchez APRN, C.N.P., D.N .P. LAB BLOOD BANK TEST ORDERABLES [facility] [address] STRM [facility] [address] [place] [address] * LD (Lactate Dehydrogenase) (02/06/2023 9:37 AM CDT) [facility] LD 164 122 - 222 U/L 02/06/2023 10:32 AM CDT DTL Blood (Blood, Venous) 02/06/2023 9:37 AM CDT 02/06/2023 10:15 AM CDT Elvira Sanchez APRN, C.N.P., D.N .P. LAB BLOOD NON ADD-ON [facility] [address] DTL [facility] [address] [place] [address] * Lactate (02/06/2023 9:37 AM CDT) Pathologist [facility] Lactate, P 0.6 0.5 - 2.2 mmol/L 02/06/2023 9:52 AM CDT STMA Blood (Blood, Venous) 02/06/2023 9:37 AM CDT 02/06/2023 9:41 AM CDT Mikey Orta M.D. LAB BLOOD NON ADD -ON [facility] [address] [place], [place] [id number] [place] [address] STMA [facility] [address] [place] [address] * Glucose, POCT (02/06/2023 8:04 AM CDT) [facility] Glucose, POCT, B 119 70 - 140 mg/dL 02/06/2023 8:06 AM CDT PCLX Site Capillary 02/06/2023 8:06 AM CDT PCLX Blood 02/06/2023 8:04 AM CDT 02/06/2023 8:06 AM CDT Unknown Provider LAB POCT ORDERABLES- MANUAL POC [facility] [address] [place] [address], [facility] PCLX [facility] POC [address] [place] [address] * (ABNORMAL) Renal Function Panel (02/06/2023 7:40 AM CDT) Pathologist [facility] Potassium, S 4.0 3.6 - 5.2 mmol/L [...] APRN, C.N.P., D.N .P. LAB BLOOD ADD-ON [facility] [address] [place] [address], [facility] [address] [place] [address] * (ABNORMAL) Hepatic Function Panel (02/06/2023 7:40 [...] M.D. LAB BLOOD ADD-ON Performing Organization Address [facility] [address] [facility] de Phone Number [facility] [address] [facility] 200 [place] [address] * (ABNORMAL) Soluble Transferrin Receptor (sTfR) (02/06/2023 7:40 AM CDT) [facility] Soluble Transferrin Receptor (sTfR) 1.2(L) 1.8 - 4.6 mg/L 02/06/2023 9:58 AM CDT DTL Comment: ----ADDITIONAL INFORMATION---- It is reported that Americans may have slightly higher values. Blood (Blood, Venous) 02/06/2023 7:40 AM CDT 02/06/2023 9:10 AM CDT Elvira Sanchez APRN, C.N.P., D.N .P. LAB BLOOD ADD-ON Performing Organization Address City/[facility] [address]/ZIP Co de Phone Number [facility] [address] [place] [address] * (ABNORMAL) SPSMA Result (02/06/2023 7:40 AM [...] Performing Organization Address City/[facility] [address]/ZIP Co de Phone Number [facility] [address] [place] [address], [facility] [address] [place] [address] * (ABNORMAL) Iron and Total Iron-Binding Capacity (02/06/2023 7:40 AM CDT) Iron 113 50 - 150 mcg/dL 02/06/2023 9:58 AM CDT DTL Total Iron Binding Capacity 142(L) 250 - 400 mcg/dL 02/06/2023 9:58 AM CDT DTL Percent Saturation 80(H) 14 - 50 % 02/06/2023 9:58 AM CDT DTL Blood (Blood, Venous) 02/06/2023 7:40 AM CDT 02/06/2023 9:10 AM CDT Elvira Sanchez APRN, C.N.P., D.N .P. LAB BLOOD ADD-ON [facility] 200 [place], [place] [id number] [place] [address] 200 [place] [address] * (ABNORMAL) Phosphorus Inorganic (02/06/2023 7:40 AM CDT) Pathologist [facility] Phosphorus (Inorganic), S 5.9(H) 2.5 - 4.5 mg/dL 02/06/2023 8:47 AM CDT DTL Blood (Blood, Venous) 02/06/2023 7:40 AM CDT 02/06/2023 8:26 AM CDT Elvira Sanchez APRN, C.N.P., D.N .P. LAB BLOOD ADD-ON [facility] [address] [address] * Magnesium (02/06/2023 7:40 AM CDT) Only the most recent of2 resultswithin the time period is included. [facility] Magnesium, S 1.9 1.7 - 2.3 mg/dL 02/06/2023 8:49 AM CDT DTL Blood (Blood, Venous) 02/06/2023 7:40 AM CDT 02/06/2023 8:24 AM CDT Elvira Sanchez APRN, C.N.P., D.N .P. LAB BLOOD ADD-ON [facility] [address] [place], [place] [id number] [place] [address] * Hemoglobin A1c (02/06/2023 7:40 AM CDT) [facility] Hemoglobin A1c, B 4.6 4.0 - 5.6 % 02/06/2023 4:41 PM CDT DTL Blood (Blood, Venous) 02/06/2023 7:40 AM CDT 02/06/2023 4:23 PM CDT Antonieta Eckert APRN.N.P., D.N .P. LAB BLOOD ADD-ON [facility] [address] 200 [place] [address] * Folate (02/06/2023 7:40 AM CDT) Folate, S 7.3 >=4.0 mcg/L 02/06/2023 10:22 AM CDT DTL Blood (Blood, Venous) 02/06/2023 7:40 AM CDT 02/06/2023 9:10 AM CDT Elvira Sanchez APRN, Antonieta.N.P., D.N .P. LAB BLOOD ADD-ON Performing Organization Address City/[facility] [address]/ZIP Co de Phone Number [facility] [address] [place] [address] * (ABNORMAL) Ferritin (02/06/2023 7:40 AM CDT) Ferritin, S 1226(H) 31 - 409 mcg/L 02/06/2023 9:58 AM CDT DTL Blood (Blood, Venous) 02/06/2023 7:40 AM CDT 02/06/2023 9:10 AM CDT Elvira Sanchez APRN, C.N.P., D.N .P. LAB BLOOD ADD-ON [facility] [address] [place] [address] from Last 3 Months Advance Directives For more information, please contact: [phone] Latest Code Status on File Code Status [...] Answer Comments Full Code: Discussed Care Teams Media Director Relationship Specialty Start Date End Date Elsewhere, Pcp PCP - General Internal Medicine 02/04/23
--- OUTSIDE RECORDS SUMMARY | 2023-05-09 15:54 | XMS_ITS ---
Author Name Unknown Organization [facility] Address [address] [place] [id number] Care Team Providers Care Renewals Manager Name Role Phone No Ref-Primary, Physician Primary Care Provider Transitional Care Management Status:Closed (Closed) Start date:07/05/2022 Enrollment date:07/05/2022 End date:07/22/2022 Close reason:Goals met Continued Care and Services Coordination
--- OUTSIDE RECORDS SUMMARY | 2023-05-09 15:54 | XMS_ITS | Encounter Summary ---
Author Name Unknown Organization [facility] [place] Address [facility] [place] [address] Care Team Providers Care Deadener Name Role Phone No Ref-Primary, Physician Primary Care Provider Reason for Referral * Consultation (Urgent: 3-5 Days) - Pending Review Specialty Diagnoses / Procedures Referred By Contac t Referred To Contact Diagnoses Tooth infection Marcus Marquez MD [address] [id number] Referral ID Status Reason Start Date Expiration Date V isits Requested Visits Authorized [id number] Pending Review 07/04/2022 07/04/2023 1 1 Question [...] questions. Please call to schedule your appointment ORING TEACHER Reason for Visit * Reason Comments Chest Pain * Auth/Cert (Routine) Specialty Diagnoses / Procedures Referred By Contac t Referred To Contact Dialysis Diagnoses Elevated troponin Hypertensive urgency Chest pain, unspecified type Chest pain, unspecified type Elevated troponin Hypertensive urgency Sh Dialysis [address] [id number] Referral ID Status Reason Start Date Expiration Date Visits Re quested Visits Authorized [id number] 1 1 Encounter Details Date Type Department Care Team (Late st Contact Info) Description 07/03/2022 5:31 AM TAILORING TEACHER - 07/04/2022 6:30 PM TAILORING TEACHER Emergency [place] [address] [facility] [address] [phone] Garth Patel, DO [facility] [address] [place] [id number] Julia Blanchard DO [address] [id number] Marcus Marquez MD [address] [id number] Tooth infection (Primary Dx); Chest pain, unspecified [...] Coronavirus/COVID-19? No / Unsure 07/03/2022 5:40 AM TAILORING TEACHER documented as of this encounter Last Filed Vital Signs Vital Sign Reading Time Taken Comments Blood Pressure 123/68 07/04/2022 3:23 PM TAILORING TEACHER Pulse 99 07/04/2022 3:23 PM TAILORING TEACHER Temperature 37.1 ??C (98.7 ??F) 07/04/2022 3:23 PM CS T Respiratory Rate 18 07/04/2022 3:23 PM TAILORING TEACHER Oxygen Saturation 95% 07/04/2022 3:23 PM TAILORING TEACHER Inhaled Oxygen Concentration - - Weight 70.3 kg (155 lb) 07/03/2022 5:47 AM TAILORING TEACHER Height 165.1 cm (5' 5) 07/03/2022 5:47 AM TAILORING TEACHER Body Mass Index 25.79 07/03/2022 5:47 AM TAILORING TEACHER documented in this encounter Discharge Summaries * Marcus Marquez MD - 07/04/2022 10:57 AM CST [facility] Discharge Summary Salbador Justin Date of : [...] Initial presentation as above. 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 Trop 100 on admit. Nephrology consultedand pt dialyzed on admit. * On 07/04, symptoms improved with HD. Recent Labs Lab 07/03/22 0749 07/03/22 0551 CTROPT 101* 100* - Continue to treat other issues as noted. ?? ESRD??on HD (//Fri) with missed HD x2. Anion gap metabolic acidosis due to above. Symptomatic hypotension with hemodialysis 07/04. * Usually dialyzes TTS; followed by [facility]. * Initial presentation as above. On admit, noted that last run was 06/27; missed dialysis due to social issues 06/29 and 07/02. Nephrology consulted and underwent HD on admit as above. * On 07/04, pt had a hypotensive episode during dialysis, symptoms improved when BP's increased afterfluid bolus. - Continue outpatient HD TTS. ?? Hypertensive urgency/emergency related to missed HD. [DIRECTOR D[employer] ADVERTISING: amlodipine 10 mg daily; hydralazine 50 mg [...] in 9-10 range over the past year [employer]. * Initial presentation as above. Hgb 8 [...] * Noted during his 05/27/2022 admit at [facility]. Underwent imaging and found to have left [...] Narrative EXAM: XR CHEST 2 VIEWS LOCATION: [facility] DATE/TIME: 07/03/2022 6:19 AM INDICATION: Chest pain. [...] paranasal sinuses are clear. QUIQUE WATTERS MD ORING TEACHER documented in this encounter Medications at Time [...] 1 Assessment/Plan: 1. ESRD -dialysis dependent -TTS [place] [facility] -followed by [facility] -last ran 06/27/22 ?? Outpatient dialysis orders: ?? 4 hours Left AVF TW 69 kg Off last 68.9 kg 3K ?? 2. Anemia -Mircera given 06/22/22 3. Metabolic Bone Disease -calcitriol with dialysis 1.25 mg -CaAc 4. HTN -amlodipine/benazepril/carvedilol/hydralazine/minoxidil/spironolactone -presenting BP elevated at dialysis 5. CP Continue TTS schedule Next 07/05/22 Interval History: Dialysis run parameters reviewed with brothel keeper at patient bedside. Seen on run Complicated [...] 3* CLAIRE 9.8 G Abdelrahman Rae MD [facility] - Nephrology [phone] ORING TEACHER * Sergio Kaur RN - 07/04/2022 10:42 [...] to treatment See Adult Hemodialysis flowsheet in [facility] for further details and post assessment. Machine water alarm in place and functioning. Transducer pods intact and checked every 15min. Pt returned via bed. Chlorine/Chloramine water system checked every 4 hours. Outpatient Dialysis at [facility] ?? Patient repositioned every 2 hours during the treatment. Post treatment report given to Cristhian Ybarra RN regarding 0.7L of fluid removed and last BP of 153/83. ?? Please remove patient dressing on AVF and AVG needle sites 24 hours after dialysis. If leaking occurs please apply a Band-Aid. ORING TEACHER * Marcus Marquez MD - 07/04/2022 7:[address] [facility] Internal Medicine Hospitalist Progress Note 07/04/2022 I evaluated patient on the above date. Marcus Marquez Jr., MD [phone] (p) Text Page Vocera Assessment & Plan [...] Initial presentation as above. 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 Trop 100 on admit. Nephrology consultedand pt dialyzed on admit. * On 07/04, symptoms improved with HD. Recent Labs Lab 07/03/22 0749 07/03/22 0551 CTROPT 101* 100* - Continue to treat other issues as noted. ESRD??on HD (/Fri) with missed HD x2. Anion gap metabolic acidosis due to above. Symptomatic hypotension with hemodialysis 07/04. * Usually dialyzes TTS; followed by [facility]. * Initial presentation as above. On [...] ?? Hypertensive urgency/emergency related to missed HD. [[employer]VERTISING: amlodipine 10 mg daily; hydralazine 50 mg [...] in 9-10 range over the past year [employer]. * Initial presentation as above. Hgb 8 [...] * Noted during his 05/27/2022 admit at [facility]. Underwent imaging and found to have left [...] prochlorperazine, senna-docusate OR senna-docusate, sodium chloride (PF) ORING TEACHER * Tanja Cody RN - 07/03/2022 5:48 [...] to treatment See Adult Hemodialysis flowsheet in [facility] for further details and post assessment. Machine water alarm in place and functioning. Transducer pods intact and checked every 15min. Pt returned via bed. Chlorine/Chloramine water system checked every 4 hours. Outpatient Dialysis at [facility] Patient repositioned every 2 hours during the treatment. Post treatment report given to Cristhian John RN regarding 2L of fluid removed, last BP of 180/74, and patient pain rating of 0/10. Please remove patient dressing on AVF and AVG needle sites 24 hours after dialysis. If leaking occurs please apply a Band-Aid. ORING TEACHER * Kirk Rae MD - 07/03/2022 4:15 PM CST Renal Medicine Second visit Seen on dialysis run Dialysis run parameters reviewed with brothel keeper at patient bedside. UF 2 liter No access issues Next 07/04/22 Inpatient or outpatient Recent Labs Lab 07/03/22 0551 POTASSIUM 5.1 Kirk. Abdelrahman Rae [facility] [phone] ORING TEACHER * Patricia John RN - 07/03/2022 12:57 PM CST RECEIVING UNIT ED HANDOFF REVIEW ED Nurse Handoff Report was reviewed by: Patricia John RN on July 03, 2022 at 12:58 PM ORING TEACHER * Monse Kim - 07/03/2022 10:11 AM CST SP[facility]UAL HE[facility] SERVICES Progress Note [facility] - ED Referral: Visit for emotional support. I introduced myself and Services. Salbador shared that his situation is exhausting. He said he has friends, and they're aware he's in hospital. I offered a short blessing and invited him to reach out to as desired. Salbador expressed appreciation for his care; visit ended so he could sleep. remains available. Rev Monse Kim Associate Cork Pressing Machine Operator [facility] Phone Line [phone] [place] (Tuesdays & ) [phone] ORING TEACHER documented in this encounter H&P Notes * Julia Blanchard DO - 07/03/2022 8:27 AM CST [facility] History and Physical - Hospitalist Service Date of Admission: 07/03/2022 Assessment & Plan Salbador Justin is a 36 year old male admitted on 07/03/2022 with chest pressure after missing 2 days of dialysis Anion gap metabolic acidosis ESRD??on HD (//Fri) Usually compliant with dialysis, last run was 06/27/22. Missed dialysis due to social issues 06/29 and 07/02. Consumer Relations Complaint Clerk is Concetta Burns in [place]. K 5.1 Anion gap 22, CO2 19 - telemetry - nephrology consulted - plan dialysis today 07/03 - Monitor BMP daily. ?? HTN urgency BP elevated into the 210s/110s in ED. Improved with dose of IV labetalol in ED to 170s/80s - resumed [employer] Amlodipine, Hydralazine, Lisinopril, and Minoxidil - PRN [...] sinusitis Noted during his 05/27/22 admit at [facility]. Underwent imaging and found to have left [...] Date: 07/05/2022 Julia Blanchard DO Hospitalist Service [facility] Securely message with Loom (more info) Text page via [facility] Paging/Directory Chief Complaint Chest pressure History is obtained from the patient, prior record review History of Present Illness Salbador Justin is a 36 year old male who presents with chest pressure after missing 2 dialysis sessions. He last dialyzed in [place] 06/27. He is currently unhoused and living [...] is sharp and radiates to his left voodoo. He had this discomfort 05/27/22 admit at [facility] and underwent imaging, discharged with abx. After [...] all the paperwork needed. He is from [place] originally so having trouble obtaining his certificate. [...] Narrative EXAM: XR CHEST 2 VIEWS LOCATION: [facility] DATE/TIME: 07/03/2022 6:19 AM INDICATION: Chest pain. COMPARISON: None. Impression IMPRESSION: Negative chest. ORING TEACHER documented in this encounter Consult Notes * Kirk Rae MD - 07/03/2022 11:26 AM CSTAssociated Order(s): NEPHROLOGY IP CONSULT RENAL CONSULTATION NOTE REFERRING MD: Santo REASON FOR CONSULTATION: ESRD management A/P: 1. ESRD -dialysis dependent -TTS [facility] -followed by [facility] -last ran 06/27/22 Outpatient dialysis orders: 4 hours Left AVF TW 69 kg Off last 68.9 kg 3K 2. Anemia -Mircera given 06/22/22 3. Metabolic Bone Disease -calcitriol with dialysis 1.25 mg -CaA 4. HTN -amlodipine/benazepril/carvedilol/hydralazine/minoxidil/spironolactone -presenting BP elevated at dialysis 5. CP Dialysis today Next run 07/04/22 to resume TTS Reviewed with [place] dialysis staff HPI: Patient presents with chest pain. He is known to have end-stage renal disease. Dialysis dependent. Currently dialyzing TTS at [facility]. Last ran there dated 06/27/22. Missed the [...] on housed Living in a motel in [place]. PHYSICAL EXAM: Vitals were reviewed Patient Vitals [...] 0551 HGB 8.0* DIAGNOSTICS: Reviewed Maryellen Rae [facility] consultants [phone] ORING TEACHER documented in this encounter ED Notes * Sundeep Mosley RN - 07/03/2022 7:30 AM CST [facility] ED Nurse Handoff Report ED Chief complaint: [...] due to increased pain[facility] Focused Assessment: Chest discomfort Treatments and/or interventions provided: iv, medications imaging labs Patient's response to treatments and/or interventions: tolerated To be done/followed up on inpatient unit: na Does this patient have any cognitive concerns?: none Activity level - Baseline/Home: Independent Activity Level - Current: Independent Patient's Preferred language: Italian Olive Pitter Needed?: No Isolation: None Infection: Not Applicable [...] performed were . ED NURSE PHONE NUMBER: [phone] ORING TEACHER * Narcisa Carey RN - 07/03/2022 5:42 AM CST Patient aletha from [place], patient reports he goes to dialysis saturdays, [...] Rhythm ST Cognitive/Neuro/Behavioral WDL Cognitive/Neuro/Behavioral WDL WDL ORING TEACHER * Garth Patel DO - 07/03/2022 5:31 [...] Pressure Ventricular Rate 111 Atrial Rate 111 HI Interval 144 QRS Duration 90 QT 344 QTc 467 P Magnolia 63 R AXIS 59 T Magnolia 76 Interpretation ECG Sinus tachycardia Possible Left atrial enlargement Borderline ECG When compared with ECG of 27-MAY-2022 15:20, Premature ventricular complexes are no longer Present Confirmed by GENERATED REPORT, COMPUTER ([id number]), telegraph editor Efraín Puente ([id number]) on 07/03/2022 5:49:00 AM Imaging: XR Chest [...] benefit from emergent dialysis. I consulted the senior technical recruiter reports they will be able to dialyze [...] to me. Garth Patel DO 07/03/22 0745 ORING TEACHER documented in this encounter Miscellaneous Notes * [...] of discharge instructions. AVS given to patient. ORING TEACHER * Utilization Review - Estrella Schroeder MD - 07/04/2022 12:01 PM TAILORING TEACHER Admission Status; Secondary Review Determination Under the [...] section 70.4. Sincerely, ESTRELLA SCHROEDER MD System Refrigerating Machine OperatorOptical Designer [facility]. ORING TEACHER * Plan of Care - Dede Magana, IOANA - 07/04/2022 11:32 AM TAILORING TEACHER Goal Outcome Evaluation: Summary: chest pain, missed hemodialysis x2 DATE & TIME: 07/04/22 2264-0890 Cognitive Concerns/ Orientation : A&Ox4 BEHAVIOR & [...] Overall Patient Progress: improvingOverall Patient Progress: improving ORING TEACHER * Plan of Care - Faustino Morrison RN - 07/04/2022 7:00 AM CST Goal Outcome Evaluation: Summary: chest pain, missed hemodialysis x2 DATE & TIME: 07/03/22-07/04/22 3202-2928 Cognitive Concerns/ Orientation : A&Ox4 BEHAVIOR & [...] , no c/o of nausea, no emesis- ORING TEACHER * Plan of Care - Juhi Pro RN - 07/03/2022 10:21 PM CST Summary: chest pain, missed hemodialysis x2 DATE & TIME: 07/03 5709-2819 Cognitive Concerns/ Orientation : A&Ox4 BEHAVIOR & [...] SKIN: WDL ex pt c/o systemic itchiness. manager call center pagearmand- ordered atarax, 25mg given. TESTS/PROCEDURES: dialysis [...] home. Will continue to monitor these symptoms. ORING TEACHER * Plan of Care - Patricia John [...] be leaving for dialysis at approx 1415 ORING TEACHER * Pharmacy-Admission Medication History - Heaven Miguel RPH - 07/03/2022 9:12 AM CST Pharmacy Medication History Admission medication history interview status for the 07/03/2022 admission is complete. See [facility] admission navigator for prior to admission medications [...] Medication Sig Last Dose Taking? Auth Provider Hemmer Automatic End Date amLODIPine (NORVASC) 10 MG tablet Take 1 tablet (10 mg) by mouth daily 07/02/2022 at AM Yes Senthil Burnette, DO Yes hydrALAZINE (APRESOLINE) 50 MG tablet Take 1 tablet (50 mg) by mouth 2 times daily 07/02/2022 at PM Yes Senthil Burnette DO Yes lisinopril (ZESTRIL) 20 MG tablet Take 1 tablet (20 mg) by mouth daily 07/02/2022 at AM Yes Senthli Burnette, DO Yes minoxidil (LONITEN) 2.5 MG tablet Take 1 tablet (2.5 mg) by mouth daily 07/02/2022 at AM Yes Senthil Burnette, DO Yes The information provided in this note is only as accurate as the sources available at the time of update(s) Heaven Miguel PharmD ORING TEACHER documented in this encounter Plan of Treatment [...] Diagnosis Comments PHOSPHORUS Routine 07/04/2022 11:45 AM TAILORING TEACHER MAGNESIUM Routine 07/04/2022 11:45 AM TAILORING TEACHER BASIC METABOLIC PANEL Routine 07/04/2022 11:45 AM TAILORING TEACHER CBC WITH PLATELETS Routine 07/04/2022 10 :[address] FACIAL BONES WITH CONTRAST STAT 07/03/2022 10:30 AM TAILORING TEACHER EXTRA PURPLE TOP TUBE STAT 07/03/2022 7:50 AM TAILORING TEACHER EXTRA GREEN TOP (LITHIUM HEPARIN) TUBE STAT 07/03/2022 7:50 AM TAILORING TEACHER TRANSFERRIN Add-On 07/03/2022 7:50 AM TAILORING TEACHER IRON AND IRON BINDING CAPACITY Add-On 07/03/2022 7:50 AM TAILORING TEACHER FERRITIN Add-On 07/03/2022 7:50 AM TAILORING TEACHER TROPONIN T, HIGH SENSITIVITY STAT 07/03/2022 7:49 AM TAILORING TEACHER XR CHEST 2 VIEWS STAT 07/03/2022 6:19 AM TAILORING TEACHER EXTRA TUBE STAT 07/03/2022 5:52 AM TAILORING TEACHER EXTRA BLUE TOP TUBE STAT 07/03/2022 5 :52 AM TAILORING TEACHER EXTRA TUBE STAT 07/03/2022 5:51 AM TAILORING TEACHER EXTRA RED TOP TUBE STAT 07/03/2022 5: 51 AM TAILORING TEACHER CBC WITH PLATELETS AND DIFFERENTIAL STAT 07/03/2022 5:51 AM TAILORING TEACHER TROPONIN T, HIGH SENSITIVITY STAT 07/03/2022 5:51 AM TAILORING TEACHER CBC WITH PLATELETS & DIFFERENTIAL STAT 07/03/2022 5:51 AM TAILORING TEACHER BASIC METABOLIC PANEL STAT 07/03/2022 5:51 AM TAILORING TEACHER EKG 12-LEAD, TRACING ONLY STAT 07/03/2022 5:38 AM TAILORING TEACHER documented in this encounter Results * Phosphorus (07/04/2022 11:45 AM TAILORING TEACHER) Phosphorus 2.7 2.5 - 4.5 mg/dL 07/04/2022 12:33 PM TAILORING TEACHER LABORATORY Blood STRUCTURE OF LEFT HAND / Unknown Venipuncture / Unknown 07/04/2022 11:45 AM TAILORING TEACHER 07/04/2022 12:08 PM TAILORING TEACHER Julia Blanchard DO LAB - BLOOD ORDERABLES LABORATORY [facility] [address], [address] [place] [address], [facility] [phone] * (ABNORMAL) Magnesium (07/04/2022 11:45 AM TAILORING TEACHER) Magnesium 1.6(L) 1.7 - 2.3 mg/dL 07/04/2022 12:33 PM TAILORING TEACHER LABORATORY Blood STRUCTURE OF LEFT HAND / Unknown Venipuncture / Unknown 07/04/2022 11:45 AM TAILORING TEACHER 07/04/2022 12:08 PM TAILORING TEACHER Julia Blanchard DO LAB - BLOOD ORDERABLES LABORATORY [facility] [address], [address] [place] [address], [facility] [phone] * (ABNORMAL) Basic metabolic panel (07/04/2022 11:45 AM TAILORING TEACHER) Sodium 138 136 - 145 mmol/L 07/04/2022 12:33 PM TAILORING TEACHER LABORATORY Potassium 4.2 3.4 - 5.3 mmol/L 07/04/2022 12:33 PM TAILORING TEACHER LABORATORY Chloride 98 98 - 107 mmol/L 07/04/2022 12:33 PM [facility] Carbon Dioxide (CO2) 25 22 - 29 mmol/L 07/04/2022 12:33 PM [facility] Anion Gap 15 7 - 15 mmol/L 07/04/2022 12:33 PM [facility] Urea Nitrogen 20.7(H) 6.0 - 20.0 mg/dL 07/04/2022 12:33 PM [facility] Creatinine 7.51(H) 0.67 - 1.17 mg/dL 07/04/2022 12:33 PM [facility] Calcium 9.0 8.6 - 10.0 mg/dL 07/04/2022 12:33 PM [facility] Glucose 80 70 - 99 mg/dL 07/04/2022 12:33 PM [facility] GFR Estimate 9(L) >60 mL/min/1.7 3m2 07/04/2022 12:33 PM [facility] Comment:eGFR calculated usin 2020 CKD-EPI equation. Blood STRUCTURE OF LEFT HAND / Unknown Venipuncture / Unknown 07/04/2022 11:45 AM TAILORING TEACHER 07/04/2022 12:08 PM [facility] Julia Blanchard DO LAB - BLOOD ORDERABLES LABORATORY [facility] [address], [address] [place] [address], [facility] [phone] * (ABNORMAL) CBC with platelets (07/04/2022 10:11 AM [facility]) [facility] WBC Count 8.7 4.0 - 11.0 10e3/uL 07/04/2022 10:15 AM [facility] RBC Count 2.76(L) 4.40 - 5.90 10e6/uL 07/04/2022 10:15 AM [facility] Hemoglobin 7.8(L) 13.3 - 17.7 g/dL 07/04/2022 10:15 AM [facility] Hematocrit 23.6(L) 40.0 - 53.0 % 07/04/2022 10:15 AM [facility] MCV 86 78 - 100 fL 07/04/2022 10:15 AM TAILORING TEACHER LABORATORY MCH 28.3 26.5 - 33.0 pg 07/04/2022 10:15 AM TAILORING TEACHER LABORATORY MCHC 33.1 31.5 - 36.5 g/dL 07/04/2022 10:15 AM TAILORING TEACHER LABORATORY RDW 13.3 10.0 - 15.0 % 07/04/2022 10:15 AM TAILORING TEACHER LABORATORY Platelet Count 244 150 - 450 10e3/uL 07/04/2022 10:15 AM TAILORING TEACHER LABORATORY Blood BLOOD SPECIMEN / Unknown Venipuncture / Unknown 07/04/2022 10:11 AM TAILORING TEACHER 07/04/2022 10:13 AM TAILORING TEACHER Julia Blanchard DO LAB - BLOOD ORDERABLES LABORATORY [facility] [address], [address] [place] [address], [facility] [phone] * CT Facial Bones with Contrast (07/03/2022 10:30 AM TAILORING TEACHER) Anatomical Region Laterality Modality Head, SUBRAD CT NEURO, UMP CT NEURO, RAD CT Computed Tomography Impressions 07/03/2022 10:54 AM TAILORING TEACHER IMPRESSION: 1. Left premaxillary soft tissue swelling [...] QUIQUE WATTERS MD Narrative 07/03/2022 10:[address] SCAN OF THE FACE WITH CONTRAST [...] PENG * (ABNORMAL) Ferritin (07/03/2022 7:50 AM TAILORING TEACHER) Pathologist [facility] Ferritin 1,553(H) 31 - 409 ng/mL 07/03/2022 1:43 PM TAILORING TEACHER U LABORATORY Blood VENOUS LINE / Unknown Venipuncture / Unknown 07/03/2022 7:50 AM TAILORING TEACHER 07/03/2022 7:54 AM TAILORING TEACHER Julia Blanchard DO LAB - BLOOD ORDERABLES U LABORATORY [facility] [address] [facility], [address] [address], [facility] [phone] * (ABNORMAL) Transferrin (07/03/2022 7:50 AM TAILORING TEACHER) [facility] Transferrin 150.0(L) 200.0 - 360.0 mg/dL 07/03/2022 6:52 PM TAILORING TEACHER U LABORATORY Blood VENOUS LINE / Unknown Venipuncture / Unknown 07/03/2022 7:50 AM TAILORING TEACHER 07/03/2022 7:54 AM TAILORING TEACHER Julia Blanchard DO LAB - BLOOD ORDERABLES LABORATORY [facility] [address] [facility], [address] [address], [facility] [phone] * (ABNORMAL) Iron & Iron Binding Capacity (07/03/2022 7:50 AM TAILORING TEACHER) [facility] Iron 92 61 - 157 ug/dL 07/03/2022 9:43 AM TAILORING TEACHER LABORATORY Iron Binding Capacity 198(L) 240 - 430 ug/dL 07/03/2022 9:43 AM TAILORING TEACHER LABORATORY Iron Sat Index 46 15 - 46 % 07/03/2022 9:43 AM TAILORING TEACHER LABORATORY Blood VENOUS LINE / Unknown Venipuncture / Unknown 07/03/2022 7:50 AM TAILORING TEACHER 07/03/2022 7:54 AM TAILORING TEACHER Julia Blanchard LAB - BLOOD ORDERABLES [facility] [address], [address] [place] [address], [place] [phone] * Extra Purple Top Tube (07/03/2022 7:50 AM TAILORING TEACHER) Hold Specimen [facility] 07/03/2022 9:02 AM TAILORING TEACHER LABORATORY Blood VENOUS LINE / Unknown Venipuncture / Unknown 07/03/2022 7:50 AM TAILORING TEACHER 07/03/2022 7:54 AM TAILORING TEACHER Garth Easton Jorge LAB - BLOOD ORD ERABLES [facility] [address], [address] [place] [address], [place] [phone] * Extra Green Top ([place] Heparin) Tube (07/03/2022 7:50 AM TAILORING TEACHER) Hold Specimen [facility] 07/03/2022 9:02 AM TAILORING TEACHER LABORATORY Blood VENOUS LINE / Unknown Venipuncture / Unknown 07/03/2022 7:50 AM TAILORING TEACHER 07/03/2022 7:54 AM TAILORING TEACHER Garth Patel LAB - BLOOD ORD ERABLES [facility] [address], [address] [place] [address], [place] [phone] * (ABNORMAL) Troponin T, High Sensitivity (07/03/2022 7:49 AM TAILORING TEACHER) Troponin T, High Sensitivity 101(HH) <=22 ng/L 07/03/2022 8:40 AM TAILORING TEACHER LABORATORY Comment: Either a High Sensitivity Troponin [...] Unknown Venipuncture / Unknown 07/03/2022 7:49 AM TAILORING TEACHER 07/03/2022 7:54 AM TAILORING TEACHER Garth Patel DO LAB - BLOOD ORD ERABLES LABORATORY [facility] [address], [address] [place] [address], [facility] [facility] [phone] * XR Chest 2 Views (07/03/2022 6:19 AM TAILORING TEACHER) Anatomical Region Laterality Modality Chest Digital Radiogra phy 07/03/2022 6:19 AM TAILORING TEACHER Impressions 07/03/2022 6:22 AM TAILORING TEACHER IMPRESSION: Negative chest. Narrative 07/03/2022 6:22 AM TAILORING TEACHER EXAM: XR CHEST 2 VIEWS LOCATION: [facility] DATE/TIME: 07/03/2022 6:19 AM INDICATION: Chest pain. COMPARISON: None. Procedure Note Raman Bernard MD - 07/03/2022 EXAM: XR CHEST 2 VIEWS LOCATION: [facility] DATE/TIME: 07/03/2022 6:19 AM INDICATION: Chest pain. COMPARISON: None. IMPRESSION: Negative chest. Garth Patel DO IM DIAGNOSTIC IMAGING ORDERABLES * Extra Blue Top Tube (07/03/2022 5:52 AM TAILORING TEACHER) Hold Specimen [facility] 07/03/2022 7:03 AM [facility] Blood BLOOD SPECIMEN / Unknown Venipuncture / Unknown 07/03/2022 5:52 AM TAILORING TEACHER 07/03/2022 5:55 AM TAILORING TEACHER Garth Patel LAB - BLOOD ORD ERABLES LABORATORY [facility] [address], [address] [place] [address], [facility] [phone] * (ABNORMAL) CBC with platelets and differential (07/03/2022 5:51 AM TAILORING TEACHER) Pathologist [facility] WBC Count 10.6 4.0 - 11.0 10e3/uL 07/03/2022 6:07 AM [facility] RBC Count 2.83(L) 4.40 - 5.90 10e6/uL 07/03/2022 6:07 AM [facility] Hemoglobin 8.0(L) 13.3 - 17.7 g/dL 07/03/2022 6:07 AM [facility] Hematocrit 24.3(L) 40.0 - 53.0 % 07/03/2022 6:07 AM [facility] MCV 86 78 - 100 fL 07/03/2022 6:07 AM [facility] MCH 28.3 26.5 - 33.0 pg 07/03/2022 6:07 AM [facility] MCHC 32.9 31.5 - 36.5 g/dL 07/03/2022 6:07 AM [facility] RDW 13.4 10.0 - 15.0 % 07/03/2022 6:07 AM [facility] Platelet Count 288 150 - 450 10e3/uL 07/03/2022 6:07 AM [facility] % Neutrophils 66 % 07/03/2022 6:07 AM [facility] % Lymphocytes 17 % 07/03/2022 6:07 AM [facility] % Monocytes 8 % 07/03/2022 6:07 AM [facility] % Eosinophils 8 % 07/03/2022 6:07 AM [facility] % Basophils 1 % 07/03/2022 6:07 AM [facility] % Immature Granulocytes 0 % 07/03/2022 6:07 AM [facility] NRBCs per 100 WBC 0 <1 /100 023 6:07 AM [facility] Absolute Neutrophils 7.1 1.6 - 8.3 10e3/uL 07/03/2022 6:07 AM [facility] Absolute Lymphocytes 1.8 0.8 - 5.3 10e3/uL 07/03/2022 6:07 AM [facility] Absolute Monocytes 0.8 0.0 - 1.3 10e3/uL 07/03/2022 6:07 AM [facility] Absolute Eosinophils 0.8(H) 0.0 - 0.7 10e3/uL 07/03/2022 6:07 AM [facility] Absolute Basophils 0.1 0.0 - 0.2 10e3/uL 07/03/2022 6:07 AM [facility] Absolute Immature Granulocytes 0.0 <=0.4 10e3/uL 07/03/2022 6:07 AM [facility] Absolute NRBCs 0.0 10e3/uL 07/03/2022 6:07 AM [facility] Blood BLOOD SPECIMEN / Unknown Venipuncture / Unknown 07/03/2022 5:51 AM TAILORING TEACHER 07/03/2022 5:55 AM TAILORING TEACHER Garth Patel DO LAB - BLOOD ORD ERABLES LABORATORY [facility] [address], [address] [place] [address], [facility] [phone] * Extra Red Top Tube (07/03/2022 5:51 AM TAILORING TEACHER) Hold Specimen [facility] 07/03/2022 7:03 AM [facility]ORING TEACHER LABORATORY Blood BLOOD SPECIMEN / Unknown Venipuncture / Unknown 07/03/2022 5:51 AM TAILORING TEACHER 07/03/2022 5:55 AM TAILORING TEACHER Garth Patel LAB - BLOOD ORD [facility] [address], [address] [place] [address], [facility] [phone] * (ABNORMAL) Troponin T, High Sensitivity (07/03/2022 5:51 AM TAILORING TEACHER) [facility] Troponin T, High Sensitivity 100(HH) <=22 ng/L 07/03/2022 6:31 AM TAILORING TEACHER LABORATORY Comment: Either a High Sensitivity Troponin [...] Unknown Venipuncture / Unknown 07/03/2022 5:51 AM TAILORING TEACHER 07/03/2022 5:55 AM TAILORING TEACHER Garth Patel LAB - BLOOD ORD [facility] [address], [address] [place] [address], [facility] [phone] * (ABNORMAL) Basic metabolic panel (07/03/2022 5:51 AM TAILORING TEACHER) Pathologist [facility] Sodium 141 136 - 145 mmol/L 07/03/2022 6:28 AM [facility] Potassium 5.1 3.4 - 5.3 mmol/L 07/03/2022 6:28 AM [facility] Chloride 100 98 - 107 mmol/L 07/03/2022 6:28 AM [facility] Carbon Dioxide (CO2) 19(L) 22 - 29 mmol/L 07/03/2022 6:28 AM [facility] Anion Gap 22(H) 7 - 15 mmol/L 07/03/2022 6:28 AM [facility] Urea Nitrogen 86.2(H) 6.0 - 20.0 mg/dL 07/03/2022 6:28 AM [facility] Creatinine 21.81(H) 0.67 - 1.17 mg/dL 07/03/2022 6:28 AM [facility] Calcium 9.8 8.6 - 10.0 mg/dL 07/03/2022 6:28 AM [facility] Glucose 109(H) 70 - 99 mg/dL 07/03/2022 6:28 AM [facility] GFR Estimate 3(L) >60 mL/min/1.7 3m2 07/03/2022 6:28 AM [facility] Comment:eGFR calculated us2020 CKD-EPI equation. Blood BLOOD SPECIMEN / Unknown Venipuncture / Unknown 07/03/2022 5:51 AM TAILORING TEACHER 07/03/2022 5:55 AM [facility] Garth Patel DO LAB - BLOOD ORD ERABLES LABORATORY [facility] [address], [address] [place] [address], [facility] [phone] * EKG 12-lead, tracing only (07/03/2022 5:38 AM [facility]) Systolic Blood Pressure mmHg RADIOLOGY RESULTS Diastolic Blood Pressure mmHg RADIOLOGY RESULTS Ventricular Rate 111 BPM RAD IOLOGY RESULTS Atrial Rate 111 BPM RADIOLOG Y RESULTS HI Interval 144 ms RADIOLOG Y RESULTS QRS Duration 90 ms RADIOLO GY RESULTS QT 344 ms RADIOLOGY RESULTS QTc 467 ms RADIOLOGY RESULTS P [place] 63 degrees RADIOLOGY RESULTS R AXIS 59 degrees RADIOLOGY RESULTS T [place] 76 degrees RADIOLOGY RESULTS Interpretation ECG Sinus tachycardia Possible Left atrial enlargement Borderline ECG When compared with ECG of 27-MAY-2022 15:20, Premature ventricular complexes are no longer Present Confirmed by GENERATED REPORT, COMPUTER ([id number]), telegraph editor Efraín Puente ([id number]) on 07/03/2022 5:49:00 AM RADIOLOGY RESULTS 07/03/2022 5:38 AM TAILORING TEACHER 07/03/2022 5:49 AM TAILORING TEACHER Concetta Sanders MD ECG ORDERABLES RADIOLOGY RESULTS [...] dialysis, Dialysis $New Bag 07/03/2022 4:17 PM TAILORING TEACHER 250 mLs 0.9% sodium chloride BOLUS Hemodialysis Machine, 300 mL, ONCE, On Fri07/03/22 at 1200, For 1 dose, For Dialyzer Prime. (In Dialyzer), Dialysis $New Bag 07/03/2022 4:17 PM TAILORING TEACHER 300 mLs 0.9% sodium chloride BOLUS Intravenous, [...] Hold for SBP<110 $Given 07/04/2022 11:06 AM TAILORING TEACHER 10 mg $Given 07/03/2022 1:44 PM TAILORING TEACHER 10 mg amoxicillin-clavulanate (AUGMENTIN) 500-125 MG per tablet 1 tablet Routine, 1 tablet, Oral, EVERY 24 HOURS SCHEDULED, First dose on Fri07/04/22 at 1200, Give after dialysis on dialysis days., Indications: Tooth infection $Given 07/04/2022 12:32 PM TAILORING TEACHER 1 tablet epoetin jasmin-epbx (RETACRIT) injection 4,000 Units 4,000 Units, Intravenous, ONCE IN DIALYSIS/CRRT, On Fri07/03/22 at 1200, For 1 dose, Give during dialysis., Dialysis $Given 07/03/2022 4:18 PM TAILORING TEACHER 4,000 Units hydrALAZINE (APRESOLINE) injection 10 mg 10 mg, Intravenous, EVERY 4 HOURS PRN, high blood pressure, give for SBP > 180, Starting on Fri07/03/22 at 0846 hydrALAZINE (APRESOLINE) tablet 50 mg 50 mg, Oral, 2 TIMES DAILY, First dose on Fri07/03/22 at 1245, Hold for SBP<110 $Given 07/04/2022 11:06 AM TAILORING TEACHER 50 mg $Given 07/03/2022 7:52 PM TAILORING TEACHER 50 mg $Given 07/03/2022 1:44 PM TAILORING TEACHER 50 mg HYDROmorphone (DILAUDID) injection 0.4 mg 0.4 mg, Intravenous, EVERY 2 HOURS PRN, severe pain, IF patient cannot take oral opioid OR IF pain not managed with non-pharmacological, non-opioid, or oral opioid interventions if ordered, Starting on Fri07/03/22 at 0915, May use concomitant with non-opioid analgesics. $Given 07/03/2022 6:17 PM TAILORING TEACHER 0.4 mg HYDROmorphone (DILAUDID) injection 1 mg 1 mg, Intravenous, ONCE, On Fri07/03/22 at 0650, For 1 dose $Given 07/03/2022 6:53 AM TAILORING TEACHER 1 mg HYDROmorphone (DILAUDID) tablet 2 mg 2 mg, Oral, EVERY 4 HOURS PRN, severe pain, IF pain not managed with non-pharmacological and non-opioid interventions, Starting on Fri07/03/22 at 0915, May use concomitant with non-opioid analgesics. $Given 07/04/2022 4:31 PM TAILORING TEACHER 2 mg $Given 07/04/2022 8:39 AM TAILORING TEACHER 2 mg $Given 07/03/2022 1:47 PM TAILORING TEACHER 2 mg HYDROmorphone (PF) (DILAUDID) injection 0.5 mg 0.5 mg, Intravenous, ONCE, On Fri07/03/22 at 0850, For 1 dose $Given 07/03/2022 9:07 AM TAILORING TEACHER 0.5 mg hydrOXYzine (ATARAX) tablet 25 mg [...] contact the provider. $Given 07/03/2022 9:13 PM TAILORING TEACHER 25 mg iopamidol (ISOVUE-370) solution 75 mL 75 mL, Intravenous, ONCE, On Fri07/03/22 at 1015, For 1 dose $Given 07/03/2022 10:16 AM TAILORING TEACHER 75 mLs labetalol (NORMODYNE/TRANDATE) injection 10 mg 10 mg, Intravenous, ONCE, On Fri07/03/22 at 0745, For 1 dose, PROTECT FROM LIGHT. $Given 07/03/2022 7:51 AM TAILORING TEACHER 10 mg lisinopril (ZESTRIL) tablet 20 mg 20 mg, Oral, DAILY, First dose on Fri07/03/22 at 1235, Hold for SBP<110 $Given 07/04/2022 11:06 AM TAILORING TEACHER 20 mg $Given 07/03/2022 1:44 PM TAILORING TEACHER 20 mg magnesium oxide (MAG-OX) tablet 400 mg 400 mg, Oral, ONCE, On Fri07/04/22 at 1500, For 1 dose $Given 07/04/2022 2:43 PM TAILORING TEACHER 400 mg minoxidil (LONITEN) tablet 2.5 mg 2.5 mg, Oral, DAILY, First dose on Fri07/04/22 at 0800 $Given 07/04/2022 11:06 AM TAILORING TEACHER 2.5 mg naloxone (NARCAN) injection 0.2 mg [...] prochlorperazine (COMPAZINE). Irritant. $Given 07/03/2022 6:46 PM TAILORING TEACHER 4 mg $Given 07/03/2022 10:29 AM TAILORING TEACHER 4 mg prochlorperazine (COMPAZINE) injection 10 mg [...] IV dormant line $Given 07/04/2022 5:26 AM TAILORING TEACHER 3 mLs sodium chloride (PF) 0.9% PF flush 60 mL 60 mL, Intravenous, ONCE, On Fri07/03/22 at 1015, For 1 dose $Given 07/03/2022 10:16 AM TAILORING TEACHER 60 mLs documented in this encounter Active and Recently Administered Medications Times are shown in TAILORING TEACHER. Scheduled Medication Order 07/02/2022 07/03/2022 07/04/2022 0.9% [...] mg dose is ineffective, contact the provider. 7488 ($Given - Provider: Juhi Pro, IOANA) lidocaine [...] not required. 1029 (See Alternative - Provider: Sudneep Mosley RN)1846 (See Alternative - Provider: Juhi [...] stools. documented in this encounter Care Teams Deadener Relationship Specialty Start Date End Date No Ref-Primary, Physician PCP - General 04/14/22 documented as of this encounter
--- OUTSIDE RECORDS SUMMARY | 2023-05-09 15:54 | XMS_ITS ---
Author Name Unknown Organization [facility] Address [address] [place] [id number] Care Team Providers Care Drivers' Cash Clerk Name Role Phone No Ref-Primary, Physician Primary Care Provider Transitional Care Management Status:Closed (Closed) Start date:05/30/2022 Enrollment date:05/31/2022 End date:06/14/2022 Close reason:Goals met Continued Care and Services Coordination
--- OUTSIDE RECORDS SUMMARY | 2023-05-09 15:54 | XMS_ITS | Encounter Summary ---
Author Name Unknown Organization [facility] Address [address] [place] [id number] Care Team Providers Care Oral And Maxillofacial Pathologist Name Role Phone No Ref-Primary, Physician Primary Care Provider Reason for Visit * Reason Comments Dental Pain * Auth/Cert (Routine) Specialty Diagnoses / Procedures Referred By Mel quiroz Referred To Contact EMERGENCY MEDICINE Diagnoses Spell of altered consciousness Hyperkalemia Jaw pain Headache Spell of altered consciousness Emergency Dept [address] [place] [address] Referral ID Status Reason Start Date Expiration Date Visits Re quested Visits Authorized [id number] 1 1 Encounter Details Date Type Department Care Team (Late st Contact Info) Description 05/27/2022 2:02 PM INTERNATIONAL LOGISTICS ANALYST - 05/29/2022 2:43 PM INTERNATIONAL LOGISTICS ANALYST Hospital Encounter [place] [address] [facility] [address] [place] [address] Brooks Finnegan PA-C [facility] [address] [place], [place] [id number] Sundeep Melvin MD [address] [place], [place] [id number] Aliza Stevenson MD [facility] [address] [place], [place] [phone] Teresita Faustin DO [facility] [address] [place] [address] Benign essential hypertension (Primary Dx); Hyperkalemia; Jaw [...] Comments Blood Pressure 162/82 05/29/2022 7:26 AM INTERNATIONAL LOGISTICS ANALYST Pulse 102 05/29/2022 7:26 AM INTERNATIONAL LOGISTICS ANALYST Temperature 37.1 ??C (98.8 ??F) 05/29/2022 7:26 AM CS T Respiratory Rate 18 05/29/2022 7:26 AM INTERNATIONAL LOGISTICS ANALYST Oxygen Saturation 96% 05/29/2022 7:26 AM INTERNATIONAL LOGISTICS ANALYST Inhaled Oxygen Concentration - - Weight 66.9 kg (147 lb 6.4 oz) 05/29/2022 6:29 A M INTERNATIONAL LOGISTICS ANALYST Height 162.6 cm (5' 4) 05/27/2022 1:48 PM INTERNATIONAL LOGISTICS ANALYST Body Mass Index 25.3 05/27/2022 1:48 PM INTERNATIONAL LOGISTICS ANALYST documented in this encounter Discharge Summaries * Aliza Burnette DO - 05/29/2022 10:43 AM CST Hospitalist Discharge Summary [facility] Salbador Justin Date of : 1985 Age: [...] dialysis and hypertension who recently moved to [place] from [place] about 3 months ago and has yet to establish care with a primary care provider who presents to the ED for evaluation of dental pain and concern for multiple seizure like episodes. ?? #Hyperkalemia. AGMA. ESRD??on HD (//Fri):??Compliant with dialysis, last run without issues at [facility] on 05/25. Coffee Urn Attendant is Concetta Burns in [place]. Initial potassium level of 6.4. Anion gap [...] his own. Previous EEG while residing in [place].?? -Neurology contacted in ED and recommended holding [...] due to pain and needing dialysis. -Resumed CLERK STENOGRAPHER Amlodipine, Carvedilol, Hydralazine, Lisinopril, and Minoxidil -PRN [...] was: 35 Minutes Aliza Burnette DO MPH [facility] Hospitalist [place] [address] 05/29/2022 RNATIONAL LOGISTICS ANALYST documented in this encounter Discharge Instructions * Discharge Instructions* Wade Bruno RN - 05/29/2022 11:27 AM INTERNATIONAL LOGISTICS ANALYST Your hospital follow up appointment has been scheduled for you with Dr. Maco Hylton at [facility] for June 05 at 3:45 pm. Please bring your hospital discharge instructions, a photo ID, and insurance information with you to your appointment. Please call the clinic at #[phone] if you need to reschedule. RNATIONAL LOGISTICS ANALYST documented in this encounter Medications at Time [...] can go. Follow up with HD in [place]. Titration of BP meds per Dr. Freire, his primary telehealth nurse. Carlos Salgado MD RNATIONAL LOGISTICS ANALYST * Itzel Barksdale RN - 05/28/2022 1:03 [...] to treatment See Adult Hemodialysis flowsheet in [facility] for further details and post assessment. Machine water alarm in place and functioning. Transducer pods intact and checked every 15min. Pt returned via bed. Chlorine/Chloramine water system checked every 4 hours. Outpatient Dialysis at [facility] Patient repositioned every 2 hours during the treatment. Post treatment report given to Trinidad Causey RN regarding 1L of fluid removed, last BP of 208/117, and patient pain rating of 10/10. Please remove patient dressing on AVF and AVG needle sites 24 hours after dialysis. If leaking occurs please apply a Band-Aid. RNATIONAL LOGISTICS ANALYST * Alvaro Draper MD - 05/28/2022 12:00 PM CST [facility] Hospitalist Progress Note Assessment & Plan Salbador Justin is a 36 year old male with PMH significant for ESRD on dialysis and hypertension who recently moved to [place] from [place] about 3 months ago and has yet to establish care witha primary care provider who presents to the ED for evaluation of dental pain and concern for multiple seizure like episodes. ?? #Hyperkalemia. AGMA. ESRD on HD (/Fri): compliant with dialysis, last run without issues at [facility] on 05/25. Coffee Urn Attendant is Concetta Burns in [place]. Initial potassium level of 6.4. Anion gap [...] his own. Previous EEG while residing in [place]. - seizure precautions - neurology contacted in [...] to pain and needing dialysis. - resume CLERK STENOGRAPHER Amlodipine, Carvedilol, Hydralazine, Lisinopril, and Minoxidil - [...] the left maxillary sinus. ALIZA SIEGEL MD RNATIONAL LOGISTICS ANALYST * Mor Malcolm RN - 05/27/2022 11:26 [...] to face. Planned dialysis tomorrow. Discharge pending. RNATIONAL LOGISTICS ANALYST * Mor Malcolm RN - 05/27/2022 10:07 PM CST At 2145 this ad writer responded to pt call light. Pt indicated he was going to have seizure. Pt went unresponsive for 45 seconds then came too, stating I'm back now. Provider notified. Seizure pads in place. Will continue to provide supportive cares. RNATIONAL LOGISTICS ANALYST * Dalton Mendieta MD - 05/27/2022 4:43 [...] or outpatient prescription. Pt reports going to [facility]? Will need to determine these details tomorrow when clinic open. - lokelma 10 g q8h - HD tomorrow - no further K checks needed overnight unless continued seizure activity Dalton Mendieta MD RNATIONAL LOGISTICS ANALYST documented in this encounter H&P Notes * Belinda Driscoll PA-C - 05/27/2022 5:57 PM CST [facility] Hospitalist History and Physical Name: Salbador Justin Date of : 1985 Age: [age] year old Date of Admission: 05/27/2022 Date of Service (when I saw the patient): 05/27/22 Assessment & Plan Salbador Justin is a 36 year old male with PMH significant for ESRD on dialysis and hypertension who recently moved to [place] from [place] about 3 months ago and has yet [...] with dialysis, last run without issues at [facility] on 05/25. Coffee Urn Attendant is Concetta Burns in [place]. Initial potassium level of 6.4. Anion gap [...] his own. Previous EEG while residing in [place]. Historydoes not completely seem consistent with seizures. [...] tachycardic, suspect due to pain - resume CLERK STENOGRAPHER Amlodipine, Carvedilol, Hydralazine, Lisinopril, and Minoxidil - [...] states the pain is over his left restoration, upper jaw, and radiates into his ear. [...] care provider since he moved here from [place]. Denies any tobacco, alcohol, or illicit drug [...] of left ear. Mild tenderness over left restoration with palpation. CV: Regular rate and rhythm, [...] Rate 101 BPM Atrial Rate 101 BPM OK Interval 144 ms QRS Duration 104 ms QT 380 ms QTc 492 ms P [place] 66 degrees R AXIS 80 degrees T Atlanta 57 degrees Interpretation ECG Sinus tachycardia with occasional Premature ventricular complexes Possible Left atrial enlargement Borderline ECG No previous ECGs available CBC with platelets differential Status: Abnormal Narrative The following orders were created for panel order CBC with platelets differential. Procedure Abnormality Status --------- ------ CBC with platelets and d...[[id number]] Abnormal Final result Please view results for these tests on the individual orders. ALECIA Leo [facility] Securely message with the Spime Console (learn more here) Text page via [facility] Paging/Directory I discussed the patient with Dr. Frazier and he agrees with the above plan. RNATIONAL LOGISTICS ANALYST Associated attestation - Sundeep Melvin MD - 05/28/2022 6:22 PM INTERNATIONAL LOGISTICS ANALYST Physician Attestation I have reviewed and discussed [...] Communication Assessment Patient's communication style: spoken language (Zambian or Bilingual) Hearing Difficulty or Deaf: no [...] services: No Community Resources: states friends and muslim assist with hotel/motel payment. Equipment currently used [...] No Current Concerns Values/Beliefs: Spiritual, Cultural Beliefs, Hinduism Practices, Values that affect care: no Additional Information: Patient admitted for dental pain and concern of possible seizure. CM following for discharge planning. Met with patient at bedside. He reports he recently moved to [place] from [facility], 3 months ago. [facility] he is living at a hotel, [facility]. [facility] his ex-girlfriend lives near . Patient receives OP HD at [facility], chair time 7:30 am-11:30. [facility] HD center is nearby so he walks or his ex-girlfriend provides transportation. Patient reports having no financial concerns. He starts a new job in 2 weeks. He is independent in all ADLs. Discussed establishing care with a dentist and PCP of his choice. Patient would like [place] providers. CM assisted with scheduling f/u appointment with [facility] on June 05. Patient states he will call to schedule his appointment with a dentist. Patient given a list of dental clinic in [facility]. Patient plans to discharge to home/hotel. His ex will provide transportation. Wade Bruno RN Case Manager Inpatient Care Coordination [facility] [phone] Wade Bruno RN RNATIONAL LOGISTICS ANALYST * Dalton Mendieta MD - 05/28/2022 11:33 AM CSTAssociated Order(s): NEPHROLOGY IP CONSULT [facility] Nephrology Consultation Date of Admission: 05/27/2022 Assessment & Plan Salbador Justin is a 36 year old male with PMH ESRD on HD, seizures who was admitted on 05/27/2022 facial pain and possible seizure activity. ESRD on HD Dialyzes TTS at [facility]. Access is LUE AVF. Prescription details verified with RN over phone: 4h run, 2K/2.5Ca, 16 g 350 BFR, 5K loading bolus heparin without maintenance . Primary telehealth nurse is Dr. Concetta Burns. EDW 69.5 kg. [...] can add phos binder (doesn't appear on CLERK STENOGRAPHER list) Hyperkalemia K elevated in setting of needing dialysis and possible seizure. Given lokelma overnight, will dialyze today. - can discontinue lokelma HTN Continue CLERK STENOGRAPHER lisinopril, minoxidil, carvedilol, amlodipine. PLAN: - HD today - discontinued lokelma - resume CLERK STENOGRAPHER BP meds - TTS schedule Plan discussed [...] He notes he again has severe L restoration pain, even tender to touch. Hemay or may not have had a seizure prior to presentation but unclear. He has not missed any dialysis last HD 05/25. He denies shortness of breath, LE edema. Only symptom is L restoration pain. Denies n/v. Seen during dialysis and [...] in pain HEENT: MMM, tenderness to L restoration CV: RRR, no murmurs RESP: Clear bilaterally [...] the last 168 hours. Dalton Mendieta MD [facility] - Nephrology [phone] RNATIONAL LOGISTICS ANALYST * Elder John MD - 05/28/2022 9:20 AM CST Images from the original note were not included. Neurology Consult Note [facility] [May 28, 2022] Admission Date: 05/27/2022 Hospital Day: 2 Code Status: Full Code Patient: Salbador Justin : 1985 CC: Chief Complaint Patient presents with ??? Dental Pain Consult Request: Referring Provider: Sundeep Melvin MD Indication for Consultation: Which Neurology Group will follow this patient? [facility] Patient to be seen Routine within 24 hrs Reason for Consult reported seizure activity, h/o seizure no longer on antiepeleptics Note: Specific question for independent consultant Cellars Supervisor may enter orders Yes Requesting provider? Hospitalist (if different from attending physician) Primary Care Provider: No Ref-Primary, Physician HPI: Salbador Justin is a 36 year old yo gentleman admitted for hyperkalemia in the setting of ESRD, on dialysis. Despite diagnoses of severe hypertension and ESRD requiring dialysis three times weekly, he has not established care with a PCP in [place] despite moving here from [facility] three months ago. He has, however, received care on several occasions in the ER in [place], with initial ER encounter noted in February [...] diagnosed with epilepsy by a neurologist in [facility], with reported abnormal EEG. He was reportedly [...] Daily ??? amoxicillin-clavulanate 1 tablet Oral Q12H [facility] (12/15) ??? carvedilol 12.5 mg Oral BID [...] results for input(s): PHOS in the last 68761 hours.0.7 mg (actual weight) CMP: Recent Labs [...] prior records regarding previously prescribed medication in [facility], andresults of his EEG performed in [place]. I recommend outpatient evaluation regarding his report of the diagnosis of epilepsy. Please call if there are further questions. Elder John M.D., Ph.D. [facility] RNATIONAL LOGISTICS ANALYST documented in this encounter ED Notes * Shell Blanchard RN - 05/27/2022 8:18 PM CST Report given to Mor TRIPLETT RNATIONAL LOGISTICS ANALYST * Shell Blanchard RN - 05/27/2022 7:23 PM CST DATE: 05/27/2022 TIME OF RECEIPT FROM LAB: 1922 LAB TEST: potassium LAB VALUE: 6.2 RESULTS GIVEN WITH READ-BACK TO (PROVIDER): Brooks Finnegan PA-C TIME LAB VALUE REPORTED TO PROVIDER: expected value Patient needs dialysis RNATIONAL LOGISTICS ANALYST * Diane Causey RN - 05/27/2022 6:23 PM CST [facility] ED Nurse Handoff Report Salbador Justin is [...] Assist. Lift room needed: No. Bariatric: No Pattern Hanger Needed: No Isolation: No. Infection: Not Applicable. [...] on May 28, 2022 at 12:46 PM RNATIONAL LOGISTICS ANALYST * Yoon Lugo RN - 05/27/2022 1:50 [...] and . Triage Assessment Row Name 05/27/22 1822 Triage Assessment (Adult) Airway WDL WDL Respiratory WDL Respiratory WDL WDL Skin Circulation/Temperature WDL Skin Circulation/Temperature WDL WDL Cardiac WDL Cardiac WDL WDL Peripheral/Neurovascular WDL Peripheral Neurovascular WDL WDL Cognitive/Neuro/Behavioral WDL Cognitive/Neuro/Behavioral WDL WDL RNATIONAL LOGISTICS ANALYST * Brooks Finnegan PA-C - 05/27/2022 1:24 PM CST History Chief Complaint: Dental Pain HPI Salbador Justin is a 36 year old male with a history of ESRD on dialysis and hypertension who presents with right upper dental pain and pain in the restoration and eye for the past 2 days. [...] focal deficits. Alert and oriented x3. Normal crisis specialist strength. Normal leg raise. Sensation to light touch intact throughout all 4 extremities. 5/5 strength with dorsiflexion and plantarflexion bilaterally. GCS 15 Psychiatric: Normal affect. Nursing notes and vital signs reviewed. Emergency Department Course ECG: ECG results from 05/27/22 EKG 12-lead, tracing only Value Systolic Blood Pressure Diastolic Blood Pressure Ventricular Rate 101 Atrial Rate 101 OK Interval 144 QRS Duration 104 QT 380 QTc 492 P Atlanta 66 R AXIS 80 T [place] 57 Interpretation ECG Sinus tachycardia with occasional [...] ED Course as of 05/27/221927May 27, 2022 0818 I obtained the history and examined the [...] Tests: [address] Mendieta, telehealth nurse, regarding the patient. 1708 I spoke with [...] 05/27/22 192 Brooks Finnegan PA-C 05/27/22 1934 RNATIONAL LOGISTICS ANALYST documented in this encounter Miscellaneous Notes * [...] transport. Goal Outcome Evaluation: Adequate for discharge RNATIONAL LOGISTICS ANALYST * Plan of Care - Pau Damico [...] neurology assessment and control on tooth pain. RNATIONAL LOGISTICS ANALYST * Plan of Care - Promise Watts [...] Disposition: possible discharge tomorrow. Discharge Time: TBD. RNATIONAL LOGISTICS ANALYST * Utilization Review - Prisca Bain MD [...] Prisca Bain MD Utilization Review/ Case Management [facility]. RNATIONAL LOGISTICS ANALYST * Plan of Care - Diane Causey RN - 05/28/2022 1:30 PM CST 13:20 Patient Transfer Information Patient connected to monitoring equipment on arrival: NA Patient connected to wall oxygen on arrival:NA Belongings: Clothing cell phone Safety check completed:Yes. Seizure pads on bed Pt arrived to [facility] from ED via dialysis. Went to dialysis as an ED boarder this morning then came toMS[facility] from there at 13:20. Continue plan of care. 13:43 Text page sent to , Pt just arrived to [facility], room 355. He needs a diet order. [...] and IV Unasyn per orders. Neurology following. RNATIONAL LOGISTICS ANALYST * Plan of Care - Cintia Steele [...] Tylenol time.Both medications given with good relief. RNATIONAL LOGISTICS ANALYST * Pharmacy-Admission Medication History - JenMariano Stephen, [facility] - 05/27/2022 7:20 PM CST Admission medication history interview status for this patient is complete. See [facility] admission navigator for allergy information, prior to admission medications and immunization status. Medication history interview done, indicate source(s): Patient Medication history resources (including written lists, pill bottles, clinic record):Gareth Torres Everywhere, [facility] pharmacy [facility] [address] [place] [address] Changes made to CLERK STENOGRAPHER medication list: Added: all meds Actions taken by pharmacist (provider contacted, etc):sticky note to hospitalist Additional medication history information: ad writer called [facility] pharmacy to confirm meds on the list below. Even though spironolactone and citalopram was on CT Care Everywhere, both of them were notprescribed recently. [facility] two meds. Medication reconciliation/reorder completed by provider prior to medication history? N Prior to Admission medications Medication Sig Last Dose Taking? Auth Provider Longterm End Date amLODIPine (NORVASC) 10 MG tablet [...] DYSPEPSIA 05/25/2022 Yes Unknown, Entered By History RNATIONAL LOGISTICS ANALYST documented in this encounter Plan of Treatment Scheduled Orders Name Type Priority Associated Diagnoses Orde r Schedule EKG 12-lead, tracing only EKG STAT Enter condition for order release in comments for 1 Occurrences starting 05/28/2022 documented as of this encounter Procedures Procedure Name Priority Date/Time Associated Diagnosis Comments BASIC METABOLIC PANEL Routine 05/29/2022 7:14 AM INTERNATIONAL LOGISTICS ANALYST CBC WITH PLATELETS Routine 05/29/2022 7: 14 AM INTERNATIONAL LOGISTICS ANALYST CBC WITH PLATELETS AND DIFFERENTIAL STAT 05/28/2022 12:58 PM INTERNATIONAL LOGISTICS ANALYST CBC WITH PLATELETS & DIFFERENTIAL STAT 05/28/2022 12:58 PM INTERNATIONAL LOGISTICS ANALYST BASIC METABOLIC PANEL STAT 05/28/2022 12:58 PM INTERNATIONAL LOGISTICS ANALYST HEPATITIS B SURFACE ANTIBODY STAT 05/27/2022 10:24 PM INTERNATIONAL LOGISTICS ANALYST TROPONIN T, HIGH SENSITIVITY STAT 05/27/2022 10:24 PM INTERNATIONAL LOGISTICS ANALYST HEPATITIS B SURFACE ANTIGEN STAT 05/27/2022 10:24 PM INTERNATIONAL LOGISTICS ANALYST POTASSIUM STAT 05/27/2022 8:07 PM INTERNATIONAL LOGISTICS ANALYST PHOSPHORUS Add-On 05/27/2022 8:07 PM INTERNATIONAL LOGISTICS ANALYST POTASSIUM STAT 05/27/2022 6:[address]ICS [address]LYST [address] HEAD W/O CONTRAST STAT 05/27/2022 4:[address] ABDOMEN PELVIS W/O CONTRAST STAT 05/27/2022 4:04 PM INTERNATIONAL LOGISTICS ANALYST EKG 12-LEAD, TRACING ONLY STAT 05/27/2022 3:20 PM INTERNATIONAL LOGISTICS ANALYST CBC WITH PLATELETS AND DIFFERENTIAL STAT 05/27/2022 3:01 PM INTERNATIONAL LOGISTICS ANALYST TROPONIN T, HIGH SENSITIVITY STAT 05/27/2022 3:01 PM INTERNATIONAL LOGISTICS ANALYST CBC WITH PLATELETS & DIFFERENTIAL STAT 05/27/2022 3:01 PM INTERNATIONAL LOGISTICS ANALYST MAGNESIUM STAT 05/27/2022 3:01 PM INTERNATIONAL LOGISTICS ANALYST LIPASE STAT 05/27/2022 3:01 PM INTERNATIONAL LOGISTICS ANALYST LACTIC ACID WHOLE BLOOD STAT 05/27/2022 3:01 PM INTERNATIONAL LOGISTICS ANALYST COMPREHENSIVE METABOLIC PANEL STAT 05/27/2022 3:01 PM INTERNATIONAL LOGISTICS ANALYST documented in this encounter Results * (ABNORMAL) Basic metabolic panel (05/29/2022 7:14 AM INTERNATIONAL LOGISTICS ANALYST) Sodium 137 136 - 145 mmol/L 05/29/2022 8:22 AM [facility] Potassium 4.1 3.4 - 5.3 mmol/L 05/29/2022 8:22 AM [facility] Chloride 96(L) 98 - 107 mmol/L 05/29/2022 8:22 AM [facility] Carbon Dioxide (CO2) 25 22 - 29 mmol/L 05/29/2022 8:22 AM [facility] Anion Gap 16(H) 7 - 15 mmol/L 05/29/2022 8:22 AM [facility] Urea Nitrogen 26.5(H) 6.0 - 20.0 mg/dL 05/29/2022 8:22 AM [facility] Creatinine 11.28(H) 0.67 - 1.17 mg/dL 05/29/2022 8:22 AM [facility] Calcium 8.9 8.6 - 10.0 mg/dL 05/29/2022 8:22 AM [facility] Glucose 124(H) 70 - 99 mg/dL 05/29/2022 8:22 AM [facility] GFR Estimate 6(L) >60 mL/min/1.7 3m2 05/29/2022 8:22 AM [facility] Comment:eGFR calculated usin 2020 CKD-EPI equation. Blood STRUCTURE OF RIGHT HAND / Unknown Venipuncture / Unknown 05/29/2022 7:14 AM INTERNATIONAL LOGISTICS ANALYST 05/29/2022 7:55 AM [facility] Alvaro Draper MD LAB - BLOOD ORDERABL ES LABORATORY [facility] [address] [facility] (1st floor, no room number) [place] [address], [facility] [phone] * (ABNORMAL) CBC with platelets (05/29/2022 7:14 AM INTERNATIONAL LOGISTICS ANALYST) WBC Count 9.9 4.0 - 11.0 10e3/uL 05/29/2022 7:58 AM [facility] RBC Count 3.28(L) 4.40 - 5.90 10e6/uL 05/29/2022 7:58 AM [facility] Hemoglobin 9.1(L) 13.3 - 17.7 g/dL 05/29/2022 7:58 AM INTERNATIONAL LOGISTICS ANALYST [facility] Hematocrit 29.0(L) 40.0 - 53.0 % 05/29/2022 7:58 AM INTERNATIONAL LOGISTICS ANALYST [facility] MCV 88 78 - 100 fL 05/29/2022 7:58 AM INTERNATIONAL LOGISTICS ANALYST [facility] MCH 27.7 26.5 - 33.0 pg 05/29/2022 7:58 AM INTERNATIONAL LOGISTICS ANALYST [facility] MCHC 31.4(L) 31.5 - 36.5 g/dL 05/29/2022 7:58 AM INTERNATIONAL LOGISTICS ANALYST [facility] RDW 14.2 10.0 - 15.0 % 05/29/2022 7:58 AM INTERNATIONAL LOGISTICS ANALYST [facility] Platelet Count 300 150 - 450 10e3/uL 05/29/2022 7:58 AM INTERNATIONAL LOGISTICS ANALYST [facility] Blood STRUCTURE OF RIGHT HAND / Unknown Venipuncture / Unknown 05/29/2022 7:14 AM INTERNATIONAL LOGISTICS ANALYST 05/29/2022 7:55 AM INTERNATIONAL LOGISTICS ANALYST Alvaro Draper MD LAB - BLOOD ORDERABL ES [facility] LABORATORY [facility] [address] [facility] Lab (1st floor, no room number) [place] [address], [facility] [phone] * (ABNORMAL) CBC with platelets and differential (05/28/2022 12:58 PM INTERNATIONAL LOGISTICS ANALYST) WBC Count 8.6 4.0 - 11.0 10e3/uL 05/28/2022 1:15 PM INTERNATIONAL LOGISTICS ANALYST [facility] RBC Count 3.45(L) 4.40 - 5.90 10e6/uL 05/28/2022 1:15 PM INTERNATIONAL LOGISTICS ANALYST [facility] Hemoglobin 9.6(L) 13.3 - 17.7 g/dL 05/28/2022 1:15 PM INTERNATIONAL LOGISTICS ANALYST [facility] Hematocrit 29.6(L) 40.0 - 53.0 % 05/28/2022 1:15 PM INTERNATIONAL LOGISTICS ANALYST [facility] MCV 86 78 - 100 fL 05/28/2022 1:15 PM INTERNATIONAL LOGISTICS ANALYST [facility] MCH 27.8 26.5 - 33.0 pg 05/28/2022 1:15 PM INTERNATIONAL LOGISTICS ANALYST [facility] MCHC 32.4 31.5 - 36.5 g/dL 05/28/2022 1:15 PM INTERNATIONAL LOGISTICS ANALYST [facility] RDW 13.7 10.0 - 15.0 % 05/28/2022 1:15 PM INTERNATIONAL LOGISTICS ANALYST [facility] Platelet Count 311 150 - 450 10e3/uL 05/28/2022 1:15 PM INTERNATIONAL LOGISTICS ANALYST [facility] % Neutrophils 67 % 05/28/2022 1:15 PM INTERNATIONAL LOGISTICS ANALYST [facility] % Lymphocytes 16 % 05/28/2022 1:15 PM INTERNATIONAL LOGISTICS ANALYST [facility] % Monocytes 10 % 05/28/2022 1:15 PM INTERNATIONAL LOGISTICS ANALYST [facility] % Eosinophils 6 % 05/28/2022 1:15 PM INTERNATIONAL LOGISTICS ANALYST [facility] % Basophils 1 % 05/28/2022 1:15 PM INTERNATIONAL LOGISTICS ANALYST [facility] % Immature Granulocytes 0 % 05/28/2022 1:15 PM INTERNATIONAL LOGISTICS ANALYST [facility] NRBCs per 100 WBC 0 <1 /100 023 1:15 PM INTERNATIONAL LOGISTICS ANALYST [facility] Absolute Neutrophils 5.7 1.6 - 8.3 10e3/uL 05/28/2022 1:15 PM INTERNATIONAL LOGISTICS ANALYST [facility] Absolute Lymphocytes 1.4 0.8 - 5.3 10e3/uL 05/28/2022 1:15 PM INTERNATIONAL LOGISTICS ANALYST [facility] Absolute Monocytes 0.9 0.0 - 1.3 10e3/uL 05/28/2022 1:15 PM INTERNATIONAL LOGISTICS ANALYST [facility] Absolute Eosinophils 0.5 0.0 - 0.7 10e3/uL 05/28/2022 1:15 PM INTERNATIONAL LOGISTICS ANALYST [facility] Absolute Basophils 0.1 0.0 - 0.2 10e3/uL 05/28/2022 1:15 PM INTERNATIONAL LOGISTICS ANALYST [facility] Absolute Immature Granulocytes 0.0 <=0.4 10e3/uL 05/28/2022 1:15 PM INTERNATIONAL LOGISTICS ANALYST [facility] Absolute NRBCs 0.0 10e3/uL 05/28/2022 1:15 PM INTERNATIONAL LOGISTICS ANALYST [facility] Blood STRUCTURE OF LEFT HAND / Unknown Venipuncture / Unknown 05/28/2022 12:58 PM INTERNATIONAL LOGISTICS ANALYST 05/28/2022 1:04 PM INTERNATIONAL LOGISTICS ANALYST Alvaro Draper MD LAB - BLOOD ORDERABL ES [facility] [address] Lab (1st floor, no room number) [place] [address], [facility] [phone] * (ABNORMAL) Basic metabolic panel (05/28/2022 12:58 PM INTERNATIONAL LOGISTICS ANALYST) Pathologist [facility] Sodium 141 136 - 145 mmol/L 05/28/2022 2:50 PM INTERNATIONAL LOGISTICS ANALYST LABORATORY Potassium 3.3(L) 3.4 - 5.3 mmol/L 05/28/2022 2:50 PM INTERNATIONAL LOGISTICS ANALYST LABORATORY Chloride 96(L) 98 - 107 mmol/L 05/28/2022 2:50 PM INTERNATIONAL LOGISTICS ANALYST LABORATORY Carbon Dioxide (CO2) 26 22 - 29 mmol/L 05/28/2022 2:50 PM INTERNATIONAL LOGISTICS ANALYST LABORATORY Anion Gap 19(H) 7 - 15 mmol/L 05/28/2022 2:50 PM INTERNATIONAL LOGISTICS ANALYST LABORATORY Urea Nitrogen 16.6 6.0 - 20.0 mg/dL 05/28/2022 2:50 PM INTERNATIONAL LOGISTICS ANALYST LABORATORY Creatinine 5.89(H) 0.67 - 1.17 mg/dL 05/28/2022 2:50 PM INTERNATIONAL LOGISTICS ANALYST LABORATORY Calcium 9.5 8.6 - 10.0 mg/dL 05/28/2022 2:50 PM INTERNATIONAL LOGISTICS ANALYST LABORATORY Glucose 75 70 - 99 mg/dL 05/28/2022 2:50 PM INTERNATIONAL LOGISTICS ANALYST LABORATORY GFR Estimate 12(L) >60 mL/min/1.7 3m2 05/28/2022 2:50 PM INTERNATIONAL LOGISTICS ANALYST LABORATORY Comment:eGFR calculated usin 2020 CKD-EPI equation. Blood STRUCTURE OF LEFT HAND / Unknown Venipuncture / Unknown 05/28/2022 12:58 PM INTERNATIONAL LOGISTICS ANALYST 05/28/2022 1:04 PM INTERNATIONAL LOGISTICS ANALYST Alvaro Draper MD LAB - BLOOD ORDERABL ES LABORATORY [facility] [address] [facility] Lab (1st floor, no room number) [place] [address], [facility] [phone] * Hepatitis B Surface Antibody (05/27/2022 10:24 PM INTERNATIONAL LOGISTICS ANALYST) Hepatitis B Surface Antibody Instrument Value 12.08 <8.00 m[IU]/mL 05/28/2022 6:48 PM INTERNATIONAL LOGISTICS ANALYST SPECIALTY CORE/PROT/END O Hepatitis B Surface Antibody Reactive 05/28/2022 6:48 PM INTERNATIONAL LOGISTICS ANALYST SPECIALTY CORE/PROT/END O Comment:Patient is considere d to be immune to infection with hepatitis B when the value is greater than or equal to 12.00 mIU/mL. Blood STRUCTURE OF RIGHT HAND / Unknown Venipuncture / Unknown 05/27/2022 10:24 PM INTERNATIONAL LOGISTICS ANALYST 05/27/2022 10:33 PM INTERNATIONAL LOGISTICS ANALYST Carlos Salgado MD LAB - BLOOD ORDERABL ES [facility] SPECIALTY CORE/PROT/ENDO [facility] Specialty Core/Prot/Endo [address] [facility], [address] [phone] * Hepatitis B surface antigen (05/27/2022 10:24 PM INTERNATIONAL LOGISTICS ANALYST) Hepatitis B Surface Antigen Nonreactive Nonreactive 05/28/2022 6:48 PM INTERNATIONAL LOGISTICS ANALYST SPECIALTY CORE/PROT/EN DO Blood STRUCTURE OF RIGHT HAND / Unknown Venipuncture / Unknown 05/27/2022 10:24 PM INTERNATIONAL LOGISTICS ANALYST 05/27/2022 10:33 PM INTERNATIONAL LOGISTICS ANALYST Carlos Salgado MD LAB - BLOOD ORDERABL ES SPECIALTY CORE/PROT/ENDO Specialty Core/Prot/Endo [address] [facility], [address] [phone] * (ABNORMAL) Troponin T, High Sensitivity (05/27/2022 10:24 PM INTERNATIONAL LOGISTICS ANALYST) Troponin T, High Sensitivity 66(H) <=22 ng/L 05/27/2022 10:52 PM INTERNATIONAL LOGISTICS ANALYST LABORATORY Comment: Either a High Sensitivity Troponin [...] Unknown Venipuncture / Unknown 05/27/2022 10:24 PM INTERNATIONAL LOGISTICS ANALYST 05/27/2022 10:33 PM INTERNATIONAL LOGISTICS ANALYST Belinda Driscoll PA-C LAB - BLOOD OMAR SURESH [facility] [address] Lab (1st floor, no room number) [place] [phone], [facility] [phone] * (ABNORMAL) Phosphorus (05/27/2022 8:07 PM INTERNATIONAL LOGISTICS ANALYST) Phosphorus 6.9(H) 2.5 - 4.5 mg/dL 05/28/2022 11:54 AM INTERNATIONAL LOGISTICS ANALYST LABORATORY Blood STRUCTURE OF RIGHT HAND / Unknown Venipuncture / Unknown 05/27/2022 8:07 PM INTERNATIONAL LOGISTICS ANALYST 05/27/2022 8:45 PM INTERNATIONAL LOGISTICS ANALYST Dalton Mendieta MD LAB - BLOOD ORDER PENG [facility] [address] Lab (1st floor, no room number) [place] [address], [facility] [phone] * (ABNORMAL) Potassium (05/27/2022 8:07 PM INTERNATIONAL LOGISTICS ANALYST) Potassium 6.4(HH) 3.4 - 5.3 mmol/L 05/27/2022 9:30 PM INTERNATIONAL LOGISTICS ANALYST LABORATORY Blood STRUCTURE OF RIGHT HAND / Unknown Venipuncture / Unknown 05/27/2022 8:07 PM INTERNATIONAL LOGISTICS ANALYST 05/27/2022 8:45 PM INTERNATIONAL LOGISTICS ANALYST Brooks PEREZ-C LAB - BLOOD ORDERABL ES [facility] [address] Lab (1st floor, no room number) [place] [address], [facility] [phone] * (ABNORMAL) Potassium (05/27/2022 6:43 PM INTERNATIONAL LOGISTICS ANALYST) Potassium 6.2(HH) 3.4 - 5.3 mmol/L 05/27/2022 7:23 PM INTERNATIONAL LOGISTICS ANALYST LABORATORY Blood STRUCTURE OF RIGHT HAND / Unknown Venipuncture / Unknown 05/27/2022 6:43 PM INTERNATIONAL LOGISTICS ANALYST 05/27/2022 6:49 PM INTERNATIONAL LOGISTICS ANALYST Brooks Finnegan PA-C LAB - BLOOD ORDERABL ES Performing Organization Address [facility] [address]/ZIP Co de Phone Number [facility] Lab [address] Lab (1st floor, no room number) [place] [address], [facility] [phone] * CT Head w/o Contrast (05/27/2022 4:04 PM INTERNATIONAL LOGISTICS ANALYST) Anatomical Region Laterality Modality Head, SUBRAD CT NEURO, SUBRA D CT NEURO, UMP CT NEURO, RAD CT Computed Tomography Impressions 05/27/2022 4:37 PM INTERNATIONAL LOGISTICS ANALYST IMPRESSION: ?? 1. No acute intracranial hemorrhage, extra axial fluid collection, or mass effect. 2. Possible subtle patchy nonspecific hypoattenuation in the cerebral white matter, as described. 3. Mild to moderate polypoid mucosal thickening in the left maxillary sinus. ALIZA SIEGEL MD Narrative 05/27/2022 4:[address] LOGISTICS ANALYST CT SCAN OF THE HEAD WITHOUT CONTRAST [...] sinus. ALIZA SIEGEL MD Brooks Finnegan PA-C [facility] CT ORDERABLES * CT Abdomen Pelvis w/o Contrast (05/27/2022 4:04 PM INTERNATIONAL LOGISTICS ANALYST) Anatomical Region Laterality Modality Abdomen/Pelvis, SUBRAD CT BRIAN DY, UMP CT ABDOMEN PELVIS, RAD CT Computed Tomography Impressions 05/27/2022 4:16 PM INTERNATIONAL LOGISTICS ANALYST IMPRESSION: Within the limitation of noncontrast exam, [...] ANJELICA MUSE MD Narrative 05/27/2022 4:[address] INTER[address]ATIONAL LOGISTICS ANALYST CT ABDOMEN PELVIS WITHOUT CONTRAST ??05/27/2022 4:04 [...] EKG 12-lead, tracing only (05/27/2022 3:20 PM INTERNATIONAL LOGISTICS ANALYST) Systolic Blood Pressure mmHg RADIOLOGY RESULTS Diastolic Blood Pressure mmHg RADIOLOGY RESULTS Ventricular Rate 101 BPM RAD IOLOGY RESULTS Atrial Rate 101 BPM RADIOLOG Y RESULTS OK Interval 144 ms RADIOLOG Y RESULTS QRS Duration 104 ms RADIOLO GY RESULTS QT 380 ms RADIOLOGY RESULTS QTc 492 ms RADIOLOGY RESULTS P [place] 66 degrees RADIOLOGY RESULTS R AXIS 80 degrees RADIOLOGY RESULTS T [place] 57 degrees RADIOLOGY RESULTS Interpretation ECG Sinus tachycardia with occasional Premature ventricular complexes Possible Left atrial enlargement Borderline ECG No previous ECGs available Confirmed by - EMERGENCY ROOM, PHYSICIAN ([id number]), subeditor YODIT MITTAL ([id number]) on 05/28/2022 7:40:38 AM RADIOLOGY RESULTS 05/27/2022 3:20 PM INTERNATIONAL LOGISTICS ANALYST 05/28/2022 7:40 AM INTERNATIONAL LOGISTICS ANALYST Brooks Finnegan PA-C ECG ORDERABLES RADIOLOGY RESULTS * Lipase (05/27/2022 3:01 PM INTERNATIONAL LOGISTICS ANALYST) Pathologist [facility] Lipase 37 13 - 60 U/L 05/27/2022 6:49 PM INTERNATIONAL LOGISTICS ANALYST LABORATORY Blood BLOOD SPECIMEN / Unknown Venipuncture / Unknown 05/27/2022 3:01 PM INTERNATIONAL LOGISTICS ANALYST 05/27/2022 3:06 PM INTERNATIONAL LOGISTICS ANALYST Brooks Finnegan PA-C LAB - BLOOD ORDERABL ES LABORATORY [facility] [address] [facility] Lab (1st floor, no room number) [place] [address] [phone] * (ABNORMAL) CBC with platelets and differential (05/27/2022 3:01 PM INTERNATIONAL LOGISTICS ANALYST) WBC Count 8.2 4.0 - 11.0 10e3/uL 05/27/2022 3:34 PM INTERNATIONAL LOGISTICS ANALYST [facility] RBC Count 3.76(L) 4.40 - 5.90 10e6/uL 05/27/2022 3:34 PM INTERNATIONAL LOGISTICS ANALYST [facility] Hemoglobin 10.6(L) 13.3 - 17.7 g/dL 05/27/2022 3:34 PM INTERNATIONAL LOGISTICS ANALYST [facility] Hematocrit 33.5(L) 40.0 - 53.0 % 05/27/2022 3:34 PM INTERNATIONAL LOGISTICS ANALYST [facility] MCV 89 78 - 100 fL 05/27/2022 3:34 PM INTERNATIONAL LOGISTICS ANALYST [facility] MCH 28.2 26.5 - 33.0 pg 05/27/2022 3:34 PM INTERNATIONAL LOGISTICS ANALYST [facility] MCHC 31.6 31.5 - 36.5 g/dL 05/27/2022 3:34 PM INTERNATIONAL LOGISTICS ANALYST [facility] RDW 13.9 10.0 - 15.0 % 05/27/2022 3:34 PM INTERNATIONAL LOGISTICS ANALYST [facility] Platelet Count 313 150 - 450 10e3/uL 05/27/2022 3:34 PM INTERNATIONAL LOGISTICS ANALYST [facility] % Neutrophils 71 % 05/27/2022 3:34 PM INTERNATIONAL LOGISTICS ANALYST [facility] % Lymphocytes 17 % 05/27/2022 3:34 PM INTERNATIONAL LOGISTICS ANALYST [facility] % Monocytes 8 % 05/27/2022 3:34 PM INTERNATIONAL LOGISTICS ANALYST [facility] % Eosinophils 3 % 05/27/2022 3:34 PM INTERNATIONAL LOGISTICS ANALYST [facility] % Basophils 1 % 05/27/2022 3:34 PM INTERNATIONAL LOGISTICS ANALYST [facility] % Immature Granulocytes 0 % 05/27/2022 3:34 PM INTERNATIONAL LOGISTICS ANALYST [facility] NRBCs per 100 WBC 0 <1 /100 023 3:34 PM INTERNATIONAL LOGISTICS ANALYST [facility] Absolute Neutrophils 5.9 1.6 - 8.3 10e3/uL 05/27/2022 3:34 PM INTERNATIONAL LOGISTICS ANALYST [facility] Absolute Lymphocytes 1.4 0.8 - 5.3 10e3/uL 05/27/2022 3:34 PM INTERNATIONAL LOGISTICS ANALYST [facility] Absolute Monocytes 0.6 0.0 - 1.3 10e3/uL 05/27/2022 3:34 PM INTERNATIONAL LOGISTICS ANALYST [facility] Absolute Eosinophils 0.2 0.0 - 0.7 10e3/uL 05/27/2022 3:34 PM INTERNATIONAL LOGISTICS ANALYST [facility] Absolute Basophils 0.1 0.0 - 0.2 10e3/uL 05/27/2022 3:34 PM INTERNATIONAL LOGISTICS ANALYST [facility] Absolute Immature Granulocytes 0.0 <=0.4 10e3/uL 05/27/2022 3:34 PM INTERNATIONAL LOGISTICS ANALYST [facility] Absolute NRBCs 0.0 10e3/uL 05/27/2022 3:34 PM INTERNATIONAL LOGISTICS ANALYST [facility] Blood BLOOD SPECIMEN / Unknown Venipuncture / Unknown 05/27/2022 3:01 PM INTERNATIONAL LOGISTICS ANALYST 05/27/2022 3:06 PM INTERNATIONAL LOGISTICS ANALYST Brooks Finnegan PA-C LAB - BLOOD ORDERABL ES Performing Organization Address [facility] [address]/ZIP Co de Phone Number LABORATORY [facility] [address] Lab (1st floor, no room number) [place] [address], [facility] [phone] * Lactic acid whole blood (05/27/2022 3:01 PM INTERNATIONAL LOGISTICS ANALYST) Lactic Acid 1.6 0.7 - 2.0 mmol/L 05/27/2022 3:09 PM INTERNATIONAL LOGISTICS ANALYST LABORATORY Blood BLOOD SPECIMEN / Unknown Venipuncture / Unknown 05/27/2022 3:01 PM INTERNATIONAL LOGISTICS ANALYST 05/27/2022 3:06 PM INTERNATIONAL LOGISTICS ANALYST Brooks PEREZ-Antonieta LAB - BLOOD ORDERABL ES Performing Organization Address [facility] [address]/ZIP Co de Phone Number LABORATORY [facility] [address] Lab (1st floor, no room number) [place] [address], [facility] [phone] * (ABNORMAL) Troponin T, High Sensitivity (05/27/2022 3:01 PM INTERNATIONAL LOGISTICS ANALYST) Troponin T, High Sensitivity 68(H) <=22 ng/L 05/27/2022 3:57 PM INTERNATIONAL LOGISTICS ANALYST LABORATORY Comment: Either a High Sensitivity Troponin [...] Unknown Venipuncture / Unknown 05/27/2022 3:01 PM INTERNATIONAL LOGISTICS ANALYST 05/27/2022 3:06 PM INTERNATIONAL LOGISTICS ANALYST Brooks PEREZ-C LAB - BLOOD ORDERABL ES Performing Organization Address City/[facility] [address]/ZIP Co de Phone Number LABORATORY [facility] [address] Lab (1st floor, no room number) [place] [address], [facility] [phone] * Magnesium (05/27/2022 3:01 PM INTERNATIONAL LOGISTICS ANALYST) Pathologist [facility] Magnesium 2.0 1.7 - 2.3 mg/dL 05/27/2022 3:57 PM INTERNATIONAL LOGISTICS ANALYST LABORATORY Blood BLOOD SPECIMEN / Unknown Venipuncture / Unknown 05/27/2022 3:01 PM INTERNATIONAL LOGISTICS ANALYST 05/27/2022 3:06 PM INTERNATIONAL LOGISTICS ANALYST Brooks PEREZ-C LAB - BLOOD ORDERABL ES Performing Organization Address [facility] [address]/ZIP Co de Phone Number [facility] [address] Lab (1st floor, no room number) [place] [address], [facility] [phone] * (ABNORMAL) Comprehensive metabolic panel (05/27/2022 3:01 PM INTERNATIONAL LOGISTICS ANALYST) Sodium 136 136 - 145 mmol/L 05/27/2022 4:23 PM [facility]OR[facility]ORY Potassium 6.4(HH) 3.4 - 5.3 mmol/L 05/27/2022 4:23 PM [facility] Comment:Specimen slightly he molyzed, potassium may be falsely elevated. Chloride 92(L) 98 - 107 mmol/L 05/27/2022 4:23 PM [facility] Carbon Dioxide (CO2) 16(L) 22 - 29 mmol/L 05/27/2022 4:23 PM [facility] Anion Gap 28(H) 7 - 15 mmol/L 05/27/2022 4:23 PM [facility] Urea Nitrogen 43.8(H) 6.0 - 20.0 mg/dL 05/27/2022 4:23 PM [facility] Creatinine 13.78(H) 0.67 - 1.17 mg/dL 05/27/2022 4:23 PM [facility] Calcium 9.5 8.6 - 10.0 mg/dL 05/27/2022 4:23 PM INTERNATIONAL LOGISTICS ANALYST LABORATORY Glucose 79 70 - 99 mg/dL 05/27/2022 4:23 PM INTERNATIONAL LOGISTICS ANALYST LABORATORY Alkaline Phosphatase 51 40 - 129 U/L 05/27/2022 4:23 PM INTERNATIONAL LOGISTICS ANALYST LABORATORY AST 23 10 - 50 U/L 05/27/2022 4:23 PM [facility] Comment:Specimen is hemolyze d which can falsely elevate AST. Analysis of a non-hemolyzed specimen may result in a lower value. ALT 13 10 - 50 U/L 05/27/2022 4:23 PM INTERNATIONAL LOGISTICS ANALYST LABORATORY Protein Total 7.9 6.4 - 8.3 g/dL 05/27/2022 4:23 PM INTERNATIONAL LOGISTICS ANALYST LABORATORY Albumin 5.0 3.5 - 5.2 g/dL 05/27/2022 4:23 PM [facility] Bilirubin Total 0.4 <=1.2 mg/dL 05/27/2022 4:23 PM INTERNATIONAL LOGISTICS ANALYST LABORATORY GFR Estimate 4(L) >60 mL/min/1. 73m2 05/27/2022 4:23 PM [facility] Comment:eGFR calculated usin 2020 CKD-EPI equation. Blood BLOOD SPECIMEN / Unknown Venipuncture / Unknown 05/27/2022 3:01 PM INTERNATIONAL LOGISTICS ANALYST 05/27/2022 3:06 PM INTERNATIONAL LOGISTICS ANALYST Brooks Finnegan PA-C LAB - BLOOD ORDERABL ES LABORATORY [facility] [address] [facility] Lab (1st floor, no room number) [place] [address], [facility] [phone] documented in this encounter Visit Diagnoses Diagnosis [...] 1 dose $New Bag 05/27/2022 3:00 PM INTERNATIONAL LOGISTICS ANALYST 1,000 mLs 1000 mL/hr 0.9% sodium chloride BOLUS Intravenous, 250 mL, ONCE IN DIALYSIS/CRRT, On Fri05/28/22 at 0715, For 1 dose, For patient prime during dialysis, Dialysis $New Bag 05/28/2022 11:28 AM INTERNATIONAL LOGISTICS ANALYST 250 mLs 0.9% sodium chloride BOLUS Hemodialysis Machine, 300 mL, ONCE, On Fri05/28/22 at 0715, For 1 dose, For Dialyzer Prime. (In Dialyzer), Dialysis $New Bag 05/28/2022 11:28 AM INTERNATIONAL LOGISTICS ANALYST 300 mLs 0.9% sodium chloride BOLUS Intravenous, [...] exceed 4 grams/day. $Given 05/29/2022 6:24 AM INTERNATIONAL LOGISTICS ANALYST 650 mg $Given 05/28/2022 10:40 PM INTERNATIONAL LOGISTICS ANALYST 650 mg $Given 05/28/2022 7:25 PM INTERNATIONAL LOGISTICS ANALYST 650 mg acetaminophen (TYLENOL) tablet 975 mg 975 mg, Oral, EVERY 8 HOURS PRN, mild pain, Starting on Fri05/27/22 at 2024, Maximum acetaminophen dose from all sources = 75 mg/kg/day not to exceed 4 grams/day. $Given 05/27/2022 10:35 PM INTERNATIONAL LOGISTICS ANALYST 975 mg amLODIPine (NORVASC) tablet 10 mg 10 mg, Oral, DAILY, First dose on Fri05/28/22 at 0800 $Given 05/29/2022 8:26 AM INTERNATIONAL LOGISTICS ANALYST 10 mg $Given 05/28/2022 1:54 PM INTERNATIONAL LOGISTICS ANALYST 10 mg amoxicillin-clavulanate (AUGMENTIN) 500-125 MG per tablet 1 tablet STAT, 1 tablet, Oral, EVERY 12 HOURS SCHEDULED, First dose on Fri05/27/22 at 2105, Indications: Dental infection $Given 05/27/2022 10:13 PM INTERNATIONAL LOGISTICS ANALYST 1 table t ampicillin-sulbactam (UNASYN) 3 g vial to attach to NS 100 mL bag STAT, 3 g, Intravenous, EVERY 24 HOURS, First dose on Fri05/28/22 at 2000, Indications: dental infection $New Bag 05/28/2022 8:20 PM INTERNATIONAL LOGISTICS ANALYST 3 g calcium gluconate 1 g in [...] as phosphate-containing solutions $Given 05/27/2022 4:50 PM INTERNATIONAL LOGISTICS ANALYST 1 g carvedilol (COREG) tablet 12.5 mg 12.5 mg, Oral, 2 TIMES DAILY WITH MEALS, First dose on Fri05/27/22 at 2025 $Given 05/28/2022 6:17 PM INTERNATIONAL LOGISTICS ANALYST 12.5 mg $Given 05/27/2022 9:03 PM INTERNATIONAL LOGISTICS ANALYST 12.5 mg docusate (COLACE) 50 MG/5ML liquid 100 mg 100 mg, Oral, ONCE, On Fri05/27/22 at 1725, For 1 dose, FOR EAR Hold for loose stools. $Given 05/27/2022 5:43 PM INTERNATIONAL LOGISTICS ANALYST 100 mg furosemide (LASIX) injection 40 mg 40 mg, Intravenous, ONCE, Administer over 1-3 Minutes, On Fri05/27/22 at 1700, For 1 dose $Given 05/27/2022 5:23 PM INTERNATIONAL LOGISTICS ANALYST 40 mg heparin (porcine) injection 500 Units, Hemodialysis Machine OR IV Push, ONCE IN DIALYSIS/CRRT, On Fri05/28/22 at 0715, For 1 dose, LOADING DOSE Administer loading dose prior to heparin infusion. PRE DIALYSIS RUN Dialysis, Dialysis $Given 05/28/2022 11:27 AM INTERNATIONAL LOGISTICS ANALYST 500 Units heparin 10,000 units/10 mL infusion (DIALYSIS USE) 500 Units/hr (0.5 mL/hr), Hemodialysis Machine, CONTINUOUS, Starting on Fri05/28/22 at 0715, DURING DIALYSIS TREATMENT, Dialysis $New Bag 05/28/2022 11:27 AM INTERNATIONAL LOGISTICS ANALYST 500 Units/hr 0.5 mL/hr hydrALAZINE (APRESOLINE) injection 10 mg 10 mg, Intravenous, EVERY 6 HOURS PRN, high blood pressure, give for SBP > 180, Starting on Fri05/27/22 at 2136 hydrALAZINE (APRESOLINE) tablet 50 mg 50 mg, Oral, 2 TIMES DAILY, First dose on Fri05/27/22 at 5 $Given 05/29/2022 8:27 AM INTERNATIONAL LOGISTICS ANALYST 50 mg $Given 05/28/2022 8:22 PM INTERNATIONAL LOGISTICS ANALYST 50 mg $Given 05/28/2022 2:00 PM INTERNATIONAL LOGISTICS ANALYST 50 mg HYDROmorphone (DILAUDID) half-tab 1-2 mg 1-2 mg, Oral, EVERY 4 HOURS PRN, moderate pain, IF pain not managed with non-pharmacological and non-opioid interventions, Starting on Fri05/27/22 at 2024, May use concomitant with non-opioid analgesics. $Given 05/29/2022 10:13 AM INTERNATIONAL LOGISTICS ANALYST 1 mg $Given 05/28/2022 10:40 PM INTERNATIONAL LOGISTICS ANALYST 2 mg $Given 05/28/2022 6:15 PM INTERNATIONAL LOGISTICS ANALYST 2 mg HYDROmorphone (DILAUDID) injection 0.2 mg 0.2 mg, Intravenous, ONCE PRN, moderate pain, severe pain, Starting on Fri05/27/22 at 1445, For 1 dose, Notify the provider to assess for uncontrolled pain or analgesic side effects. Hold while on IV WORKFLOW DEVELOPER or with regular IV opioid dosing. $Given 05/27/2022 3:00 PM INTERNATIONAL LOGISTICS ANALYST 0.2 mg HYDROmorphone (DILAUDID) injection 0.2 mg 0.2 mg, Intravenous, EVERY 2 HOURS PRN, moderate pain, IF patient cannot take oral opioid OR IF pain not managed with non-pharmacological, non-opioid, or oral opioid interventions if ordered, Starting on Fri05/27/22 at 2023, May use concomitant with non-opioid analgesics. $Given 05/27/2022 8:36 PM INTERNATIONAL LOGISTICS ANALYST 0.2 mg HYDROmorphone (PF) (DILAUDID) injection 0.3-0.5 mg 0.3-0.5 mg, Intravenous, EVERY 2 HOURS PRN, moderate pain, severe pain, IF patient cannot take oral opioid OR IF pain not managed with non-pharmacological, non-opioid, or oral opioid interventions if ordered, Starting on Fri05/27/22 at 2054, May use concomitant with non-opioid analgesics. $Given 05/29/2022 1:08 PM INTERNATIONAL LOGISTICS ANALYST 0.5 mg $Given 05/29/2022 6:25 AM INTERNATIONAL LOGISTICS ANALYST 0.3 mg $Given 05/28/2022 3:18 PM INTERNATIONAL LOGISTICS ANALYST 0.5 mg HYDROmorphone (PF) (DILAUDID) injection 0.5 mg 0.5 mg, Intravenous, ONCE PRN, moderate pain, severe pain, Starting on Fri05/27/22 at 1544, For 1 dose, Notify the provider to assess for uncontrolled pain or analgesic side effects. Hold while on IV WORKFLOW DEVELOPER or with regular IV opioid dosing. $Given 05/27/2022 4:36 PM INTERNATIONAL LOGISTICS ANALYST 0.5 mg hydrOXYzine (ATARAX) tablet 25 mg [...] contact the provider. $Given 05/28/2022 5:33 AM INTERNATIONAL LOGISTICS ANALYST 25 mg $Given 05/28/2022 2:15 AM INTERNATIONAL LOGISTICS ANALYST 25 mg hydrOXYzine (ATARAX) tablet 50 mg [...] contact the provider. $Given 05/28/2022 6:17 PM INTERNATIONAL LOGISTICS ANALYST 50 mg $Given 05/28/2022 1:23 PM INTERNATIONAL LOGISTICS ANALYST 50 mg labetalol (NORMODYNE/TRANDATE) injection 10 mg 10 mg, Intravenous, ONCE, On Fri05/27/22 at 1730, For 1 dose, PROTECT FROM LIGHT. $Given 05/27/2022 5:42 PM INTERNATIONAL LOGISTICS ANALYST 10 mg lisinopril (ZESTRIL) tablet 20 mg 20 mg, Oral, DAILY, First dose on Fri05/28/22 at 0800, This therapy was substituted for benazepril (Lotensin) 20 mg daily. $Given 05/29/2022 8:26 AM INTERNATIONAL LOGISTICS ANALYST 20 mg $Given 05/28/2022 1:54 PM INTERNATIONAL LOGISTICS ANALYST 20 mg minoxidil (LONITEN) tablet 2.5 mg 2.5 mg, Oral, DAILY, First dose on Fri05/28/22 at 0800 $Given 05/29/2022 8:26 AM INTERNATIONAL LOGISTICS ANALYST 2.5 mg ondansetron (ZOFRAN ODT) ODT tab [...] prochlorperazine (COMPAZINE). Irritant. $Given 05/27/2022 8:32 PM INTERNATIONAL LOGISTICS ANALYST 4 mg oxyCODONE (ROXICODONE) tablet 5 mg 5 mg, Oral, ONCE, On Fri05/28/22 at 1040, For 1 dose $Given 05/28/2022 10:59 AM INTERNATIONAL LOGISTICS ANALYST 5 mg pantoprazole (PROTONIX) EC tablet 40 mg 40 mg, Oral, EVERY MORNING BEFORE BREAKFAST, First dose on Fri05/28/22 at 0730 $Given 05/29/2022 6:24 AM INTERNATIONAL LOGISTICS ANALYST 40 mg $Given 05/28/2022 1:54 PM INTERNATIONAL LOGISTICS ANALYST 40 mg senna-docusate (SENOKOT-S/PERICOLACE) 8.6-50 MG per [...] IV dormant line $Given 05/29/2022 1:08 PM INTERNATIONAL LOGISTICS ANALYST 3 mLs $Given 05/28/2022 11:36 PM INTERNATIONAL LOGISTICS ANALYST 3 mLs $Given 05/28/2022 8:35 PM INTERNATIONAL LOGISTICS ANALYST 3 mLs sodium zirconium cyclosilicate (LOKELMA) packet 10 g 10 g, Oral, EVERY 8 HOURS, First dose on Fri05/27/22 at 1700, Administer at least 2 hours before or 2 hours after other oral medications. Empty the entire contents of packet into at least 3 tablespoons of water, stir well and drink immediately $Given 05/28/2022 1:13 AM INTERNATIONAL LOGISTICS ANALYST 10 g $Given 05/27/2022 5:46 PM INTERNATIONAL LOGISTICS ANALYST 10 g witch kimmie-glycerin (TUCKS) pad Topical, EVERY 1 HOUR PRN, hemorrhoids, Starting on Fri05/28/22 at 0149, Apply to hemorrhoids. This product or its equivalent is supplied by [facility]. It is NOT STOCKED by Pharmacy. documented in this encounter Active and Recently Administered Medications Times are shown in INTERNATIONAL LOGISTICS ANALYST. Scheduled Medication Order 05/27/2022 05/28/2022 05/29/2022 - [...] at 2200 2130 (Not Given - Provider: Mro Malcolm RN - Reason: Patient/family refused) 211 [...] analgesic side effects. Hold while on IV WORKFLOW DEVELOPER or with regular IV opioid dosing. 1500 [...] analgesic side effects. Hold while on IV WORKFLOW DEVELOPER or with regular IV opioid dosing. 1636 [...] product or its equivalent is supplied by [employer]. It is NOT STOCKED by Pharmacy. Linked [...] stools. documented in this encounter Care Teams Oral And Maxillofacial Pathologist Relationship Specialty Start Date End Date No Ref-Primary, Physician PCP - General 04/14/22 documented as of this encounter
--- OUTSIDE RECORDS SUMMARY | 2023-05-09 15:55 | XMS_ITS | Encounter Summary ---
Author Name Unknown Organization [facility] Address [address] [place] [address] Care Team Providers Care Churner Name Role Phone Elsewhere, Pcp Primary Care Provider Unavailabl e Encounter Details Date Type Department Care Team (Late st Contact Info) Description 03/25/2023 Orders Only Division of Nephrology and Hypertension in [place], [place] [address] [place] [address] Garth Burdick Jr., D.O. [address] [place] [address] Social History Tobacco Use Types Packs/Day Years [...] your living situation today? I have a [facility] place to live 11/14/2022 Sex and Gender Information Value Date Recorded Sex Assigned at Male 11/14/2022 11:03 AM CDT Gender Identity Male 11/14/2022 11:03 AM CDT Sexual Orientation Straight 11/14/2022 11 :03 AM CDT documented as of this encounter Plan of Treatment Not on file documented as of this encounter Visit Diagnoses Not on filedocumented in this encounter Care Teams Churner Relationship Specialty Start Date End Date Elsewhere, Pcp PCP - General Internal Medicine 02/04/23 documented as of this encounter
--- OUTSIDE RECORDS SUMMARY | 2023-05-09 15:55 | XMS_ITS | Encounter Summary ---
Author Name Unknown Organization [facility] Address [address] [place] [address] Care Team Providers Care Electrical Installation Supervisor Name Role Phone Elsewhere, Pcp Primary Care Provider Unavailabl e Encounter Details Date Type Department Care Team (Late st Contact Info) Description 03/18/2023 Orders Only Division of Nephrology and Hypertension, [facility], in [place], [place] [address] [place] [address] Drew Mo, HALLE, C.N.P., M.S.N. [address] [place] [address] Social History Tobacco Use Types Packs/Day Years [...] your living situation today? I have a [facility] place to live 11/14/2022 Sex and Gender Information Value Date Recorded Sex Assigned at Male 11/14/2022 11:03 AM CDT Gender Identity Male 11/14/2022 11:03 AM CDT Sexual Orientation Straight 11/14/2022 11 :03 AM CDT documented as of this encounter Plan of Treatment Not on file documented as of this encounter Visit Diagnoses Not on filedocumented in this encounter Care Teams Electrical Installation Supervisor Relationship Specialty Start Date End Date Elsewhere, Pcp PCP - General Internal Medicine 02/04/23 documented as of this encounter
--- OUTSIDE RECORDS SUMMARY | 2023-05-09 15:55 | XMS_ITS | Encounter Summary ---
Author Name Unknown Organization [facility] Address [address] [place] [address] Care Team Providers Care Crocodile Farmer Name Role Phone Elsewhere, Pcp Primary Care Provider Unavailabl e Encounter Details Date Type Department Care Team (Late st Contact Info) Description 02/24/2023 Orders Only Division of Nephrology and Hypertension, [facility], in [place], [place] [address] [place] [address] Drew Mo, HALLE, C.N.P., M.S.N. [address] [place] [address] Social History Tobacco Use Types Packs/Day Years [...] your living situation today? I have a [facility] place to live 11/14/2022 Sex and Gender Information Value Date Recorded Sex Assigned at Male 11/14/2022 11:03 AM CDT Gender Identity Male 11/14/2022 11:03 AM CDT Sexual Orientation Straight 11/14/2022 11 :03 AM CDT documented as of this encounter Plan of Treatment Not on file documented as of this encounter Visit Diagnoses Not on filedocumented in this encounter Care Teams Crocodile Farmer Relationship Specialty Start Date End Date Elsewhere, Pcp PCP - General Internal Medicine 02/04/23 documented as of this encounter
--- OUTSIDE RECORDS SUMMARY | 2023-05-09 15:55 | XMS_ITS | Encounter Summary ---
Author Name Unknown Organization [facility] Address [address] [place] [address] Care Team Providers Care Scene Painter Name Role Phone Elsewhere, Pcp Primary Care Provider Unavailabl e Encounter Details Date Type Department Care Team (Late st Contact Info) Description 04/02/2023 Orders Only Pharmacy Prior Auth JOHAN [phone] Marko Hager Social History Tobacco Use Types [...] your living situation today? I have a [facility] place to live 11/14/2022 Sex and Gender Information Value Date Recorded Sex Assigned at Male 11/14/2022 11:03 AM CDT Gender Identity Male 11/14/2022 11:03 AM CDT Sexual Orientation Straight 11/14/2022 11 :03 AM CDT documented as of this encounter Plan of Treatment Not on file documented as of this encounter Visit Diagnoses Not on filedocumented in this encounter Care Teams Scene Painter Relationship Specialty Start Date End Date Elsewhere, Pcp PCP - General Internal Medicine 02/04/23 documented as of this encounter
--- OUTSIDE RECORDS SUMMARY | 2023-05-09 15:55 | XMS_ITS ---
Author Name Unknown Organization [facility] Address [address] [place] [address] Care Team Providers Care Tractor Engine Mechanic Name Role Phone Unavailable Unavailable Unavailable Surgery Details Not on file Complications Check Surgery Details section. Procedure Estimated Blood Loss Check Surgery Details section. Procedure Findings Check Surgery Details section. Procedure Specimens Taken Check Surgery Details section.
--- OUTSIDE RECORDS SUMMARY | 2023-05-09 15:55 | XMS_ITS | Encounter Summary ---
Author Name Unknown Organization [facility] Address [address] [place] [address] Care Team Providers Care Industrial Security Analyst Name Role Phone Elsewhere, Pcp Primary Care Provider Unavailabl e Encounter Details Date Type Department Care Team (Late st Contact Info) Description 04/08/2023 Orders Only Division of Nephrology and Hypertension, [facility], in [place], [place] [address] [place] [address] Drew Mo, HALLE, C.N.P., M.S.N. [address] [place] [address] Social History Tobacco Use Types Packs/Day Years [...] on filedocumented in this encounter Care Teams Industrial Security Analyst Relationship Specialty Start Date End Date Elsewhere, Pcp PCP - General Internal Medicine 02/04/23 documented as of this encounter
--- OUTSIDE RECORDS SUMMARY | 2023-05-09 15:55 | XMS_ITS | Encounter Summary ---
Author Name Unknown Organization [facility] Address [address] [place] [address] Care Team Providers Care Orthophotography Technician Name Role Phone Elsewhere, Pcp Primary Care Provider Unavailabl e Encounter Details Date Type Department Care Team (Late st Contact Info) Description 02/19/2023 Orders Only Division of Nephrology and Hypertension, [facility], in [place], [place] [address] [place] [address] Drew Mo, HALLE, C.N.P., M.S.N. [address] [place] [address] Social History Tobacco Use Types Packs/Day Years [...] your living situation today? I have a [facility] place to live 11/14/2022 Sex and Gender Information Value Date Recorded Sex Assigned at Male 11/14/2022 11:03 AM CDT Gender Identity Male 11/14/2022 11:03 AM CDT Sexual Orientation Straight 11/14/2022 11 :03 AM CDT documented as of this encounter Plan of Treatment Not on file documented as of this encounter Visit Diagnoses Not on filedocumented in this encounter Care Teams Orthophotography Technician Relationship Specialty Start Date End Date Elsewhere, Pcp PCP - General Internal Medicine 02/04/23 documented as of this encounter
--- OUTSIDE RECORDS SUMMARY | 2023-05-09 15:55 | XMS_ITS | Encounter Summary ---
Author Name Unknown Organization [facility] Address [address] [place] [address] Care Team Providers Care Monument Stonecutter Name Role Phone Elsewhere, Pcp Primary Care Provider Unavailabl e Encounter Details Date Type Department Care Team (Late st Contact Info) Description 03/04/2023 Orders Only Division of Nephrology and Hypertension, [facility], in [place], [place] [address] [place] [address] Drew Mo, HALLE, C.N.P., M.S.N. [address] [place] [address] Social History Tobacco Use Types Packs/Day Years [...] your living situation today? I have a [facility] place to live 11/14/2022 Sex and Gender Information Value Date Recorded Sex Assigned at Male 11/14/2022 11:03 AM CDT Gender Identity Male 11/14/2022 11:03 AM CDT Sexual Orientation Straight 11/14/2022 11 :03 AM CDT documented as of this encounter Plan of Treatment Not on file documented as of this encounter Visit Diagnoses Not on filedocumented in this encounter Care Teams Monument Stonecutter Relationship Specialty Start Date End Date Elsewhere, Pcp PCP - General Internal Medicine 02/04/23 documented as of this encounter
--- OUTSIDE RECORDS SUMMARY | 2023-05-09 15:55 | XMS_ITS | Encounter Summary ---
Author Name Unknown Organization [facility] Address [address] [place] [address] Care Team Providers Care Plate Printer Name Role Phone Elsewhere, Pcp Primary Care Provider Unavailabl e Reason for Referral * Medication Prior Authorization - Closed Specialty Diagnoses / Procedures Referred By Mel quiroz Referred To Contact Drew Mo APRN, C.N.Corrine, M.S.N. [address] [place] [phone] Referral ID Status Reason Start Date Expiration Date Visits Re quested Visits Authorized [id number] Closed 1 1 LING HOOD OPERATOR Encounter Details Date Type Department Care Team (Late st Contact Info) Description 04/01/2023 Orders Only Division of Nephrology and Hypertension, [facility], in [place], [place] [address] [place] [phone] Drew Mo APRN, C.N.PJuan C, M.S.N. [address] [place] [phone] Social History Tobacco Use Types Packs/Day Years [...] your living situation today? I have a [facility] place to live 11/14/2022 Sex and Gender Information Value Date Recorded Sex Assigned at Male 11/14/2022 11:03 AM CDT Gender Identity Male 11/14/2022 11:03 AM CDT Sexual Orientation Straight 11/14/2022 11 :03 AM CDT documented as of this encounter Plan of Treatment Not on file documented as of this encounter Visit Diagnoses Not on filedocumented in this encounter Care Teams Plate Printer Relationship Specialty Start Date End Date Elsewhere, Pcp PCP - General Internal Medicine 02/04/23 documented as of this encounter
--- OUTSIDE RECORDS SUMMARY | 2023-05-09 15:55 | XMS_ITS | Encounter Summary ---
Author Name Unknown Organization [facility] Address [address] [place] [address] Care Team Providers Care [place] River Name Role Phone Elsewhere, Pcp Primary Care Provider Unavailabl e Encounter Details Date Type Department Care Team ([facility] st Contact Info) Description 04/15/2023 Orders Only Division of Nephrology and Hypertension in [place], [place] [address] [place] [address] Concetta Mejía M.D., Ph.D. [address] [place] [address] Social History Tobacco Use Types Packs/Day Years [...] your living situation today? I have a [facility] place to live 11/14/2022 Sex and Gender Information Value Date Recorded Sex Assigned at Male 11/14/2022 11:03 AM CDT Gender Identity Male 11/14/2022 11:03 AM CDT Sexual Orientation Straight 11/14/2022 11 :03 AM CDT documented as of this encounter Plan of Treatment Not on file documented as of this encounter Visit Diagnoses Not on filedocumented in this encounter Care Teams [place] Relationship Specialty Start Date End Date Elsewhere, Pcp PCP - General Internal Medicine 02/04/23 documented as of this encounter
--- OUTSIDE RECORDS SUMMARY | 2023-05-09 15:55 | XMS_ITS | Encounter Summary ---
Author Name Unknown Organization [facility] Address [address] [place] [address] Care Team Providers Care Machine Wood Sander Name Role Phone Elsewhere, Pcp Primary Care Provider Unavailabl e Encounter Details Date Type Department Care Team (Late st Contact Info) Description 02/11/2023 Orders Only Division of Nephrology and Hypertension in [place], [place] [address] [place] [address] Concetta Mejía M.D., Ph.D. [address] [place] [address] Social History Tobacco Use Types Packs/Day Years [...] your living situation today? I have a [facility] place to live 11/14/2022 Sex and Gender Information Value Date Recorded Sex Assigned at Male 11/14/2022 11:03 AM CDT Gender Identity Male 11/14/2022 11:03 AM CDT Sexual Orientation Straight 11/14/2022 11 :03 AM CDT documented as of this encounter Plan of Treatment Not on file documented as of this encounter Visit Diagnoses Not on filedocumented in this encounter Care Teams Machine Wood Sander Relationship Specialty Start Date End Date Elsewhere, Pcp PCP - General Internal Medicine 02/04/23 documented as of this encounter
--- OUTSIDE RECORDS SUMMARY | 2023-05-09 15:55 | XMS_ITS | Referral Summary ---
Author Name Unknown Organization [facility] Address [address] [place] [address] Care Team Providers Care Sewage Reticulation Drafting Officer Name Role Phone Elsewhere, Pcp Primary Care Provider Unavailabl e Source Comments Patient records contain information from all sites at [facility]. For routine questions regarding patient records, call [phone] during business hours, M-F 8:00 AM - 5:00 PM Central Time. Record requests for emergency care only can be directed to [phone] at any time.[facility] Encounters Date Type Department Care Team Description 04/15/2023 Orders Only Division of Nephrology and Hypertension in [place], [place] [address] [place] [address] Concetta Mejía M.D., Ph.D. 04/08/2023 Orders Only Division of Nephrology and Hypertension, [facility], in [place], [place] [address] [place] [address] Drew Mo APRN, C.N.P., M.S.N. 04/02/2023 Orders Only Pharmacy Prior Auth [phone] Marko Hager 04/01/2023 Orders Only Division of Nephrology and Hypertension, [facility], in [place], [place] [address] [place] [address] Drew Mo APRN C.N.P., M.S.N. 03/25/2023 Orders Only Division of Nephrology and Hypertension in [place], [place] [address] [place] [address] Garth Burdick Jr., D.O. 03/18/2023 Orders Only Division of Nephrology and Hypertension, [facility], in [place], [place] [address] [place] [address] Drew Mo APRN, C.N.PJuan C, M.S.N. 03/04/2023 Orders Only Division of Nephrology and Hypertension, [facility], in [place], [place] [address] [place] [address] Drew Mo APRN, C.N.P., M.S.N. 02/24/2023 Orders Only Division of Nephrology and Hypertension, [facility], in [place], [place] [address] [place] [address] Drew Mo APRN, C.N.P., M.S.N. 02/19/2023 Orders Only Division of Nephrology and Hypertension, [facility], in [place], [place] [address] [place] [address] Drew Mo APRN, C.N.P., M.S.N. 02/11/2023 Orders Only Division of Nephrology and Hypertension in [place], [place] [address] [place] [address] Concetta Mejía M.D., Ph.D. 02/04/2023 11:19 PM CDT - 02/07/2023 2:40 PM CDT Hospital Encounter [facility], [facility], [facility], Eighth Floor [address] [place] [phone] Renay Hernandez M.D. Beiermann, Elizabeth W, M.D. [...] your living situation today? I have a [facility] place to live 11/14/2022 Sex and Gender [...] on file Medical Devices Implanted Type Area Sleeve Setter Lockstitch Device Identifier Shelf Expiration Date Model / [...] APRN, C.N.P., D.N .P. LAB BLOOD ADD-ON [facility] [address] [place] [address], [facility] DTL [facility] [address] [place] [address] * (ABNORMAL) CBC with Differential, Blood (02/07/2023 [...] APRN, C.N.P., D.N .P. LAB BLOOD ADD-ON [facility] [address] [place] [address], [facility] DTL [facility] [address] [place], [place] [address] [place] [address] * (ABNORMAL) Basic Metabolic Panel (02/07/2023 7:46 AM CDT) Pathologist [facility] Potassium, S 4.3 3.6 - 5.2 mmol/L [...] 7:46 AM CDT 02/07/2023 8:40 AM CDT Antonieta Eckert APRN.N.P., D.N .P. LAB BLOOD ADD-ON Performing Organization Address City/[facility]/ZIP Co de Phone Number [facility] [address] DTL [facility] 200 [place] [address] * Transfuse Red Blood Cells : (02/06/2023 1:13 PM CDT) Antonieta Eckert APRN.N.P., D.N .P. BLOOD TRANSFUSION ORDERABLES * Type and Screen (with Reflex Antibody ID) (02/06/2023 9:37 AM CDT) Pathologist [facility] O Pos Not applicable 02/06/2023 10:06 AM CDT STRM Antibody Screen Negative Negative 02/06/2023 10:21 AM CDT STRM Type & Screen Expiration 02/09/2023 23:59 02/06/2023 10:06 AM CDT STRM Testing Location [facility] DEFAULT 02/06/2023 9:42 AM CDT STRM Blood (Blood, Venous) 02/06/2023 9:37 AM CDT 02/06/2023 9:42 AM CDT Antonieta Eckert APRN.N.P., D.N .P. LAB BLOOD BANK TEST ORDERABLES Performing Organization Address [facility] Co de Phone Number [facility] [address] [place] [address], [facility] STRM [facility] [address] [place] [address] * LD (Lactate Dehydrogenase) (02/06/2023 9:37 AM CDT) [facility] LD 164 122 - 222 U/L 02/06/2023 10:32 AM CDT DTL Blood (Blood, Venous) 02/06/2023 9:37 AM CDT 02/06/2023 10:15 AM CDT Elvira Sanchez APRN, C.N.P., D.N .P. LAB BLOOD NON ADD-ON [facility] 200 [place] [address], [facility] [address] [place] [address] * Lactate (02/06/2023 9:37 AM CDT) [facility] Lactate, P 0.6 0.5 - 2.2 mmol/L 02/06/2023 9:[address] [facility] Blood (Blood, Venous) 02/06/2023 9:37 AM CDT 02/06/2023 9:41 AM CDT Mikey Orta M.D. LAB BLOOD NON ADD -ON Performing Organization Address City/[facility]/ZIP Co de Phone Number [facility] [address] [place] [address], [facility] 200 [place] [address] * Glucose, POCT (02/06/2023 8:04 AM CDT) [facility] Glucose, POCT, B 119 70 - 140 mg/dL 02/06/2023 8:06 AM CDT PCLX Site Capillary 02/06/2023 8:06 AM CDT PCLX Blood 02/06/2023 8:04 AM CDT 02/06/2023 8:06 AM CDT Unknown Provider LAB POCT ORDERABLES- MANUAL POC [facility] [address] [place] [address], [facility] PCLX [facility] POC [address] [place] [address] * (ABNORMAL) Renal Function Panel (02/06/2023 7:40 AM CDT) Pathologist [facility] Potassium, S 4.0 3.6 - 5.2 mmol/L [...] .P. LAB BLOOD ADD-ON Performing Organization Address [facility] Co de Phone Number [facility] [address] [place] [address], [facility] [address] [place] [address] * (ABNORMAL) Hepatic Function Panel (02/06/2023 7:40 [...] M.D. LAB BLOOD ADD-ON Performing Organization Address City/[facility] Co de Phone Number [facility] [address] [place] [address], [facility] [address] [place] [address] * (ABNORMAL) Soluble Transferrin Receptor (sTfR) (02/06/2023 7:40 AM CDT) Soluble Transferrin Receptor (sTfR) 1.2(L) 1.8 - 4.6 mg/L 02/06/2023 9:58 AM CDT DTL Comment: ----ADDITIONAL INFORMATION---- It is reported that Americans may have slightly higher values. Blood (Blood, Venous) 02/06/2023 7:40 AM CDT 02/06/2023 9:10 AM CDT Elvira Sanchez APRN C.N.P., D.N .P. LAB BLOOD ADD-ON [facility] [address] [place] [address], [facility] DTL [facility] [address] [place] [address] * (ABNORMAL) SPSMA Result (02/06/2023 7:40 AM CDT) Pathologist [facility] Neutrophilic Segs and Bands 49(L) 50 - [...] M.D. LAB BLOOD ADD-ON Performing Organization Address City/[facility]/ZIP Co de Phone Number [facility] [address] [place] [address], [facility] DHPM [facility] [address] [place] [address] * (ABNORMAL) Iron and Total Iron-Binding Capacity (02/06/2023 7:40 AM CDT) Pathologist [facility] Iron 113 50 - 150 mcg/dL 02/06/2023 9:58 AM CDT DTL Total Iron Binding Capacity 142(L) 250 - 400 mcg/dL 02/06/2023 9:58 AM CDT DTL Percent Saturation 80(H) 14 - 50 % 02/06/2023 9:58 AM CDT DTL Blood (Blood, Venous) 02/06/2023 7:40 AM CDT 02/06/2023 9:10 AM CDT Antonieta Eckert APRN.N.P., D.N .P. LAB BLOOD ADD-ON Performing Organization Address City/[facility]/ZIP Co de Phone Number [facility] 200 [place] [address] * (ABNORMAL) Phosphorus Inorganic (02/06/2023 7:40 AM CDT) Phosphorus (Inorganic), S 5.9(H) 2.5 - 4.5 mg/dL 02/06/2023 8:47 AM CDT DTL Blood (Blood, Venous) 02/06/2023 7:40 AM CDT 02/06/2023 8:26 AM CDT Elvira Sanchez APRN C.N.P., D.N .P. LAB BLOOD ADD-ON Performing Organization Address City/[facility] Co de Phone Number [facility] 200 [place] [address] * Magnesium (02/06/2023 7:40 AM CDT) Only the most recent of2 resultswithin the time period is included. Magnesium, S 1.9 1.7 - 2.3 mg/dL 02/06/2023 8:49 AM CDT DTL Blood (Blood, Venous) 02/06/2023 7:40 AM CDT 02/06/2023 8:24 AM CDT Antonieta Eckert APRN.N.P., D.N .P. LAB BLOOD ADD-ON [facility] [address] [place], [place] [address] [place] [address] [address] [place] [address] * Hemoglobin A1c (02/06/2023 7:40 AM CDT) [facility] Hemoglobin A1c, B 4.6 4.0 - 5.6 % 02/06/2023 4:41 PM CDT DTL Blood (Blood, Venous) 02/06/2023 7:40 AM CDT 02/06/2023 4:23 PM CDT Antonieta Eckert APRN.N.P., D.N .P. LAB BLOOD ADD-ON Performing Organization Address City/[facility]/ZIP Co de Phone Number [facility] [address] [place], [place] [address] [place] [address] [address] [place] [address] * Folate (02/06/2023 7:40 AM CDT) [facility] Folate, S 7.3 >=4.0 mcg/L 02/06/2023 10:22 AM CDT DTL Blood (Blood, Venous) 02/06/2023 7:40 AM CDT 02/06/2023 9:10 AM CDT Elvira Sanchez APRN C.N.P., D.N .P. LAB BLOOD ADD-ON [facility] [address] [place], [place] [address] [place] [address] [address] [place] [address] * (ABNORMAL) Ferritin (02/06/2023 7:40 AM CDT) [facility] Ferritin, S 1226(H) 31 - 409 mcg/L 02/06/2023 9:58 AM CDT DTL Blood (Blood, Venous) 02/06/2023 7:40 AM CDT 02/06/2023 9:10 AM CDT Elvira Sanchez APRN, C.N.P., D.N .P. LAB BLOOD ADD-ON [facility] [address] [place] [address], [place] DTL [facility] [address] [place] [address] from Last 3 Months Advance Directives For more information, please contact: [phone] Latest Code Status on File Code Status [...] Answer Comments Full Code: Discussed Care Teams Sewage Reticulation Drafting Officer Relationship Specialty Start Date End Date Elsewhere, Pcp PCP - General Internal Medicine 02/04/23
--- OUTSIDE RECORDS SUMMARY | 2023-05-09 15:55 | XMS_ITS ---
Author Name Unknown Organization [facility] Address [address] [place] [address] Care Team Providers Care Clinical Advisor Name Role Phone Elsewhere, Pcp Primary Care [...] 7:40 AM CDT from Last 3 Months Allergies [...] Influenza, Unspecified 02/06/2021,01/31/2020, PCV13 06/12/2020 PPD Test 11/27/2021,,11/20/2021,2020,08/11/2019,08/11/2018,08/26/2017 Pneumococcal Conjugate(PCV), Unspecified 09/02/2017 SARS-COV-2 (COVID-19) - [...] your living situation today? I have a [facility] place to live 11/14/2022 Sex and [...] APRN, C.N.P., D.N .P. LAB BLOOD ADD-ON [address] [address], [facility] [address] [place] [address] * (ABNORMAL) CBC with Differential, Blood (02/07/2023 [...] - 6.45 x10(9)/L 02/07/2023 8:43 AM CDT PM Lymphocytes 1.88 0.95 - 3.07 x10(9)/L 02/07/2023 [...] APRN, C.N.P., D.N .P. LAB BLOOD ADD-ON [facility] [address] [place] [address], [facility] DTL [facility] [address] [place] [address] [facility] [address] [place] [address] * (ABNORMAL) Basic Metabolic Panel (02/07/2023 7:46 AM CDT) [facility] Potassium, S 4.3 3.6 - 5.2 [...] APRN, C.N.P., D.N .P. [place] [address], [place] [address] [place] [address] * Transfuse Red Blood Cells : (02/06/2023 1:13 PM CDT) Elvira Sanchez APRN, C.N.P., D.N .P. BLOOD TRANSFUSION ORDERABLES * Type and Screen (with Reflex Antibody ID) (02/06/2023 9:37 AM CDT) [facility] O Pos Not applicable 02/06/2023 10:06 AM CDT STRM Antibody Screen Negative Negative 02/06/2023 10:21 AM CDT STRM Type & Screen Expiration 02/09/2023 23:59 02/06/2023 10:06 AM CDT STRM Testing Location [facility] DEFAULT 02/06/2023 9:42 AM CDT STRM Blood (Blood, Venous) 02/06/2023 9:37 AM CDT 02/06/2023 9:42 AM CDT Antonieta Eckert APRN.N.P., D.N .P. LAB BLOOD BANK TEST ORDERABLES Performing Organization Address City/[facility]/ZIP Co de Phone Number [facility] [address] STRM [facility] [address] [place] [address] * LD (Lactate Dehydrogenase) (02/06/2023 9:37 AM CDT) [facility] LD 164 122 - 222 U/L 02/06/2023 10:32 AM CDT DTL Blood (Blood, Venous) 02/06/2023 9:37 AM CDT 02/06/2023 10:15 AM CDT Elvira Sanchez APRN C.N.P., D.N .P. LAB BLOOD NON ADD-ON Performing Organization Address [facility]/ZIP Co de Phone Number [facility] [address] DTL [facility] 200 [place] [address] * Lactate (02/06/2023 9:37 AM CDT) [facility] Lactate, P 0.6 0.5 - 2.2 mmol/L 02/06/2023 9:52 AM CDT STMA Blood (Blood, Venous) 02/06/2023 9:37 AM CDT 02/06/2023 9:41 AM CDT Mikey Orta M.D. LAB BLOOD NON ADD -ON Performing Organization Address City/[facility]/ZIP Co de Phone Number [facility] [address] STMA [facility] [place] [address] [place] [address] * Glucose, POCT (02/06/2023 8:04 AM CDT) Glucose, POCT, B 119 70 - 140 mg/dL 02/06/2023 8:06 AM CDT PCLX Site Capillary 02/06/2023 8:06 AM CDT PCLX Blood 02/06/2023 8:04 AM CDT 02/06/2023 8:06 AM CDT Unknown Provider LAB POCT ORDERABLES- MANUAL POC [facility] [address] [place] [address], [facility] PCLX [facility] [address] [place] [address] * (ABNORMAL) Renal Function Panel (02/06/2023 7:40 [...] APRN, C.N.P., D.N .P. LAB BLOOD ADD-ON [facility] [address] [place] [address], [facility] [address] [address] * (ABNORMAL) Hepatic Function Panel (02/06/2023 7:40 [...] M.D. LAB BLOOD ADD-ON Performing Organization Address City/[facility] Co de Phone Number [facility] 200 [place] [address] * (ABNORMAL) Soluble Transferrin Receptor (sTfR) (02/06/2023 7:40 AM CDT) Soluble Transferrin Receptor (sTfR) 1.2(L) 1.8 - 4.6 mg/L 02/06/2023 9:58 AM CDT DT Comment: ----ADDITIONAL INFORMATION---- It is reported that Americans may have slightly higher values. Blood (Blood, Venous) 02/06/2023 7:40 AM CDT 02/06/2023 9:10 AM CDT Elvira Sanchez APRN, C.N.P., D.N .P. LAB BLOOD ADD-ON Performing Organization Address [facility] Co de Phone Number [facility] [address] [place] [address] * (ABNORMAL) SPSMA Result (02/06/2023 7:40 AM [...] M.D. LAB BLOOD ADD-ON Performing Organization Address City/[facility]/ZIP Co de Phone Number [facility] [address] [place] [address], [facility] [address] [place] [address] * (ABNORMAL) Iron and Total Iron-Binding Capacity [...] APRN, C.N.P., D.N .P. LAB BLOOD ADD-ON [facility] [address] [place] [address], [facility] [address] [place] [address] * (ABNORMAL) Phosphorus Inorganic (02/06/2023 7:40 AM CDT) Phosphorus (Inorganic), S 5.9(H) 2.5 - 4.5 mg/dL 02/06/2023 8:47 AM CDT DTL Blood (Blood, Venous) 02/06/2023 7:40 AM CDT 02/06/2023 8:26 AM CDT Elvira Sanchez APRN, C.N.P., D.N .P. LAB BLOOD ADD-ON [facility] [address] [place] [address], [facility] 200 [place] [address] * Magnesium (02/06/2023 7:40 AM CDT) Only the most recent of2 resultswithin the time period is included. Magnesium, S 1.9 1.7 - 2.3 mg/dL 02/06/2023 8:49 AM CDT DTL Blood (Blood, Venous) 02/06/2023 7:40 AM CDT 02/06/2023 8:24 AM CDT Elvira Sanchez APRN, C.N.P., D.N .P. LAB BLOOD ADD-ON Performing Organization Address City/[facility]/ZIP Co de Phone Number [facility] [address] [place] [address], [facility] 200 [place] [address] * Hemoglobin A1c (02/06/2023 7:40 AM CDT) Hemoglobin A1c, B 4.6 4.0 - 5.6 % 02/06/2023 4:41 PM CDT DTL Blood (Blood, Venous) 02/06/2023 7:40 AM CDT 02/06/2023 4:23 PM CDT Elvira Sanchez APRN, C.N.P., D.N .P. LAB BLOOD ADD-ON [facility] 200 [place] [address], [place] [address] * Folate (02/06/2023 7:40 AM CDT) Folate, S 7.3 >=4.0 mcg/L 02/06/2023 10:22 AM CDT DTL Blood (Blood, Venous) 02/06/2023 7:40 AM CDT 02/06/2023 9:10 AM CDT Antonieta Eckert APRN.N.P., D.N .P. LAB BLOOD ADD-ON [facility] [address] [place] [address], [facility] [address] [place] [address] * (ABNORMAL) Ferritin (02/06/2023 7:40 AM CDT) Ferritin, S 1226(H) 31 - 409 mcg/L 02/06/2023 9:58 AM CDT DTL Blood (Blood, Venous) 02/06/2023 7:40 AM CDT 02/06/2023 9:10 AM CDT Elvira Sanchez APRN, Antonieta.N.P., D.N .P. LAB BLOOD ADD-ON [facility] [address] [place] [address], [facility] [address] [place] [address] from Last 3 Months
--- OUTSIDE RECORDS SUMMARY | 2023-05-09 15:56 | XMS_ITS | Encounter Summary ---
Author Name Unknown Organization [facility] Address [address] [place] [address] Care Team Providers Care China And Silverware Salesperson Name Role Phone None Reported, Pcp Primary Care Provider Unavail able Reason for Referral * Outpatient (Routine) - Closed Specialty Diagnoses / Procedures Referred By Mel quiroz Referred To Contact Neurology Diagnoses Spells Undifferentiated Procedures EEG routine - awake and sleep Sundeep Barlow M.D. 200 [place] [address] [facility] Referral ID Status Reason Start Date Expiration Date Visits Re quested Visits Authorized [id number] Closed 10/29/2022 10/29/2023 1 1 Reason for Visit * Outpatient (Routine) - Closed Specialty Diagnoses / Procedures Referred By Mel quiroz Referred To Contact Neurology Diagnoses Spells Undifferentiated Procedures EEG routine - awake and sleep Sundeep Barlow M.D. [address] [place] [address] [facility] Referral ID Status Reason Start Date Expiration Date Visits Re quested Visits Authorized [id number] Closed 10/29/2022 10/29/2023 1 1 Encounter Details Date Type Department Care Team (Latest Contact Info) Description 11/20/2022 1:42 PM CDT - 11/20/2022 11:59 PM CDT Hospital Encounter Department of Neurology in [place], [place] [address] [place] [phone] Sundeep Barlow M.D. 200 [place] [address] [place] Undifferentiated Discharge Disposition: Home or Self [...] arousal. The EKG channel was unremarkable. Sundeep Balrow M.D. NEUROLOGY ORDERABLES MMODAL NA documented in this encounter Visit Diagnoses Diagnosis Spells Undifferentiated documented in this encounter Care Teams [employer] Salesperson Relationship Specialty Start Date End Date None Reported, Pcp PCP - General Family Medicine 07/28/22 02/03/23 documented as of this encounter
--- OUTSIDE RECORDS SUMMARY | 2023-05-09 15:56 | XMS_ITS | Encounter Summary ---
Author Name Unknown Organization [facility] Address [address] [place] [address] Care Team Providers Care Pipe Processor Name Role Phone None Reported, Pcp Primary Care Provider Unavail able Encounter Details Date Type Department Care Team ([facility] st Contact Info) Description 11/12/2022 Orders Only Division of Nephrology and Hypertension in [place], [place] [address] [place] [address] Concetta Meíja M.D., Ph.D. [address] [place] [address] Social History Tobacco Use Types Packs/Day Years [...] your living situation today? I have a [facility] place to live 11/02/2022 Sex and Gender Information Value Date Recorded Sex Assigned at Male 11/14/2022 11:03 AM CDT Gender Identity Male 11/14/2022 11:03 AM CDT Sexual Orientation Straight 11/14/2022 11 :03 AM CDT documented as of this encounter Plan of Treatment Not on file documented as of this encounter Visit Diagnoses Not on filedocumented in this encounter Care Teams Pipe Processor Relationship Specialty Start Date End Date None Reported, Pcp PCP - General Family Medicine 07/28/22 02/03/23 documented as of this encounter
--- OUTSIDE RECORDS SUMMARY | 2023-05-09 15:56 | XMS_ITS | Encounter Summary ---
Author Name Unknown Organization [facility] Address [address] [place] [address] Care Team Providers Care Steward/Stewardess Dining Room Name Role Phone None Reported, Pcp Primary Care Provider Unavail able Encounter Details Date Type Department Care Team ([facility] st Contact Info) Description 01/16/2023 Orders Only Division of Nephrology and Hypertension in [place], [place] [address] [place] [address] Concetta Mejía M.D., Ph.D. [address] [place] [address] Social History Tobacco Use Types Packs/Day Years [...] living situation today? I have a [facility] place to live 11/14/2022 Sex and Gender Information Value Date Recorded Sex Assigned at Male 11/14/2022 11:03 AM CDT Gender Identity Male 11/14/2022 11:03 AM CDT Sexual Orientation Straight 11/14/2022 11 :03 AM CDT documented as of this encounter Plan of Treatment Not on file documented as of this encounter Visit Diagnoses Not on filedocumented in this encounter Care Teams Steward/Stewardess Dining Room Relationship Specialty Start Date End Date None Reported, Pcp PCP - General Family Medicine 07/28/22 02/03/23 documented as of this encounter
--- OUTSIDE RECORDS SUMMARY | 2023-05-09 15:56 | XMS_ITS | Encounter Summary ---
Author Name Unknown Organization [facility] Address [address] [place] [address] Care Team Providers Care Rodent Control Worker Name Role Phone None Reported, Pcp Primary Care Provider Unavail able Encounter Details Date Type Department Care Team ([facility] st Contact Info) Description 01/17/2023 Orders Only Division of Nephrology and Hypertension in [place], [place] [address] [place] [address] Concetta Mejía M.D., Ph.D. [address] [place] [address] Social History Tobacco Use Types Packs/Day Years [...] on filedocumented in this encounter Care Teams Rodent Control Worker Relationship Specialty Start Date End Date None Reported, Pcp PCP - General Family Medicine 07/28/22 02/03/23 documented as of this encounter
--- OUTSIDE RECORDS SUMMARY | 2023-05-09 15:56 | XMS_ITS | Encounter Summary ---
Author Name Unknown Organization [facility] Address [address] [place] [address] Care Team Providers Care Care Professional Name Role Phone None Reported, Pcp Primary Care Provider Unavail able Encounter Details Date Type Department Care Team ([facility] st Contact Info) Description 12/17/2022 Orders Only Division of Nephrology and Hypertension, [facility], in [place], [place] [address] [place] [address] Drew Mo, HALLE, C.N.P., M.S.N. [address] [place] [address] Social History Tobacco Use Types Packs/Day Years [...] your living situation today? I have a [facility] place to live 11/14/2022 Sex and Gender Information Value Date Recorded Sex Assigned at Male 11/14/2022 11:03 AM CDT Gender Identity Male 11/14/2022 11:03 AM CDT Sexual Orientation Straight 11/14/2022 11 :03 AM CDT documented as of this encounter Plan of Treatment Not on file documented as of this encounter Visit Diagnoses Not on filedocumented in this encounter Care Teams Care Professional Relationship Specialty Start Date End Date None Reported, Pcp PCP - General Family Medicine 07/28/22 02/03/23 documented as of this encounter
--- OUTSIDE RECORDS SUMMARY | 2023-05-09 15:56 | XMS_ITS | Encounter Summary ---
Author Name Unknown Organization [facility] Address [address] [place] [address] Care Team Providers Care Seed Corn Manager Production Name Role Phone Elsewhere, Pcp Primary Care Provider Unavailabl e Reason for Visit * Reason Comments Abdominal Pain Nausea Encounter Details Date Type Department Care Team (Late st Contact Info) Description 02/04/2023 11:19 PM CDT - 02/07/2023 2:40 PM CDT Hospital Encounter [facility], Eighth Floor [address] [place] [phone] Renay Hernandez M.D. [address] [place] [phone] Xochitl Dewitt M.D. [address] [place] [phone] Abdominal Pain (Primary Dx); Cyst Renal; Hemodialysis [...] your living situation today? I have a [facility] place to live 11/14/2022 Sex and [...] CDT DISCHARGE SUMMARY BRIEF OVERVIEW Discharge Hospital: [facility] Discharge Provider: No att. providers found Discharge Provider Team: Hospital Internal Medicine (HIM) - [facility] Medicine 6 ([facility]) Primary Care Providers: Elsewhere, Pcp (General) [...] HOSPITAL COURSE Mr. Justin was hospitalized on [facility] 6 ([facility]) for evaluation and management of: Hemodialysis Status (HCC) Mr. Salbador Justin is a very pleasant 37 y.o. 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 Per chart review, patient typically receives iHD locally in [place]. He has not had a run of [...] ascites. Lactate unremarkable. [facility] and management. During his [...] have close follow-up with his PCP. An INSPECTOR BALANCE WHEEL MOTION was called on 02/06/2023 for acute hypotension [...] care was discussed with Dr. Orta, HIM beauty sales consultant. I saw and evaluated Salbador Justin today and provided counseling [id number] at bedside. I personally spent a total of greater than 30 minutes in counseling and coordination of care as described above to facilitate the hospital discharge. Discharge instructions were provided to the patient and caregiver(s). documented in this encounter Discharge Instructions * Discharge Instructions* Federica Bills - 02/05/2023 3:06 AM CDT You were discharged from the [facility] Medicine 6 ([facility]) Service. Please identify this service name if youcall with questions after hospitalization. * Attachments The following attachments cannot be sent through Care Everywhere. * Vitamin B-12 (Cyanocobalamin) (By mouth) (Canadian) * Pantoprazole (By mouth) (Canadian) * Prochlorperazine (By mouth) (Canadian) documented in this encounter Medications at Time of Discharge Medication Sig Dispensed Refills Start Date End Date calcium acetate,phosphat bind, (ELIPHOS) 667 mg (169 mg calcium) tablet Take 1,334 mg by mouth 3 (three) times a day with meals. 0 cyanocobalamin (vitamin B-12) 1,000 mcg tablet Take 1 tablet (1,000 mcg total) by mouth daily. F/u with PCP for additional refills. 30 tablet 0 02/07/2023 sertraline (ZOLOFT) 50 mg tablet Take 1 tablet (50 mg total) by mouth daily. 90 tablet 3 01/27/2023 01/27/2024 torsemide (DEMADEX) 100 mg tablet Take 1 tablet (100 mg total) by mouth 2 (two) times a day. 180 tablet 3 01/17/2023 01/17/2024 pantoprazole (PROTONIX) 20 mg EC tablet Take [...] 3 days. 9 tablet 0 02/05/2023 02/08/2023 albuterol 90 mcg/actuation inhaler Inhale 2 puffs every 6 (six) hours as needed for wheezing or shortness of breath (or cough). 8 g 11 11/06/2022 02/11/2023 amLODIPine (NORVASC) 10 mg tablet Take 1 tablet (10 mg total) by mouth daily. 90 tablet 3 01/16/2023 03/18/2023 losartan (COZAAR) 100 mg tablet Take 1 tablet (100 mg total) by mouth daily. Please follow-up with PCP for dose adjustment and refills. 30 tablet 0 02/05/2023 03/18/2023 multivitamin renal failure (DIALYVITE) 100-1 mg tablet Take 1 tablet by mouth daily with dinner. 30 tablet 0 02/06/2023 02/24/2023 traZODone (DESYREL) 50 mg tablet Take 1 tablet (50 mg total) by mouth at bedtime. 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 Dismissal Recommendations: -- Next hemodialysis is Friday02/08/2023 at [facility], following his Friday, , Friday dialysis schedule. [...] has been staffed with Dr. Estes, Nephrology beauty sales consultant. For questions or concerns, please contact the Nephrology C service at [phone]. * Viola Mosher APRN C.N.P., M.S.N. - 02/06/2023 11:00 AM CDT NEPHROLOGY CONSULT SERVICE - PROGRESS NOTE Hospital Day 1 SUBJECTIVE Mr. Justin was seen and examined during hemodialysis today. He is dialyzing in the recliner. He had an episode earlier today suspected vagal vasal requiring INSPECTOR BALANCE WHEEL MOTION (see addendum below). 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 INSPECTOR BALANCE WHEEL MOTION was called. RMG was 119. Once awake and alert he complainedof abdominal pain. During INSPECTOR BALANCE WHEEL MOTION med 6 and ICU providers presented to bedside. It is thought to be vagal vasal response to starting hemodialysis as he is intravascular on the enamel drier side; although no flui d was being [...] has been staffed with Dr. Estes, Nephrology beauty sales consultant. For questions or concerns, please contact the Nephrology C service at [phone]. Associated attestation - Rebecca Estes M.D. - [...] Will continue to follow. Rebecca Estes M.D. Care Clinician Vehicle Fuel Systems Converter Nephrology and Hypertension * Elvira Sanchez APRN, C.N.P., D.N.P. - 02/06/2023 9:18 AM CDT T Medicine 6 ([facility]) Progress Notes SUBJECTIVE Mr. Justin was seen in the context of morning rounds. An INSPECTOR BALANCE WHEEL MOTION was called shortly before arrival toa vasovagal [...] / PLAN Mr. Justin is hospitalized on [place] [address] ([facility]) for evaluation and management of: HemodialysisStatus (HCC) Mr. 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 Per chart review, patient typically receives iHD locally in [place]. He has not had a run of [...] ascites. Lactate unremarkable. [facility] and [facility]. Since admission, [...] has been obtained and currently pending. An INSPECTOR BALANCE WHEEL MOTION was called on 02/06/2023 during dialysis, shortly [...] diarrhea, and concern being interestingly dry. An INSPECTOR BALANCE WHEEL MOTION was called today for a vasovagal episode [...] agrees with current plan. Counseling was provided [id number] at bedside regarding the plan of care [...] if on-going nausea. Janelle Berumen, PharmMainor., R.Ph. [phone] documented in this encounter H&P Notes * Xochitl Dewitt M.D. - 02/05/2023 3:37 AM CDT T Medicine 6 ([facility]) Admission Note SUBJECTIVE CHIEF COMPLAINT / REASON FOR VISIT Missed Dialysis HISTORY OF PRESENT ILLNESS Salbador Justin is a 37 y.o. male with medical comorbidities significant for HFpEF (2/2 HTN), ESRD (iHD T//), and CAD (STEMI 2015) who presents after missing outpatient dialysis. The patient typically receives iHD locally in [place]. He has not had a run of [...] Provider/Service Referral Reason: Discharge Planning Primary Language: Canadian Phys Asst Services Used: No Sexuality/Pronoun: Straight / Person(s) [...] insurance: MEDICARE A AND B Secondary insurance: [facility] Does the patient have any financial concerns? Yes - Cannot afford transportation. Advance Directives Legal Decision Maker: Self Advance Directives: N/A Advance Directives Status: N/A Baseline Functional Status Baseline Activities of Daily Living Mobility: Independent Dressing: Independent Feeding: Independent Bathing: Independent Grooming: Independent Toileting: Independent Behavior: Appropriate, Pleasant, Calm, Cooperative, Oriented Communication: Can write, Understands speaking, Understands Canadian, Talks Baseline Services/Resources Primary care clinic and provider: Dr. Stef Ho, [facility] Additional Resources: Anticipated Needs Transportation set up. [...] reviewed the role of social work at [facility]. Patient expressed understanding and was agreeable to [...] to hospital admission. Patient's dialysis services at [facility] have been reconnected. Patient has reliable [...] be changed. Transportation will be provided by [employer] ) and paid by [employer]. Cait Bran, M.S.W. 02/07/2023 * Odalys Nguyen M.B., B.Ch., B.A.O. - 02/06/2023 9:22 AM CDT Rapid response team INSPECTOR BALANCE WHEEL MOTION was called for episode of unresponsiveness 37-year-old [...] for this and he saw Neurology in [place] they reported that they were unlikely to [...] case was discussed with Dr. Eckert- ICU beauty sales consultant * Danitakang Viola HALLE Aguayo [...] In the outpatient setting he dialyzes at [facility] dialysis unit on a Friday, , Friday [...] has been staffed with Dr. Estes, Nephrology beauty sales consultant. For questions or concerns, please contact the Nephrology C service at [phone]. Associated attestation - Rebecca Estes M.D. - [...] adjust EDW as tolerated. Rebecca Estes M.D. Care Clinician Vehicle Fuel Systems Converter Nephrology and Hypertension documented in this encounter [...] AM CDT Care of patient transferred to ok by Dr. Fenton. Disposition pending CT results and patient's status.. VITAL SIGNS BP (!) 185/114 Pulse 93 Temp 36.8 ??C Resp 18 SpO2 98% ED Course as of 02/05/23354Feb 05, 2023 0320 I spoke with our dialysis nurse team. Unfortunately the patient does not receive his dialysis through [facility] and will need to be admitted for [...] History provided by: Patient and medical records film splicer needed/used: no REVIEW OF SYSTEMS Constitutional: Negative [...] I agree with the note of the REMOTE SENSING ADVISOR/PA. I personally performed the services described in [...] PM CDT Mr. Justin was hospitalized on [facility] Medicine 6 ([facility]) for evaluation and management of: Hemodialysis Status (HCC) Mr. Salbador Justin is a very pleasant 37 y.o. 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 Per chart review, patient typically receives iHD locally in [place]. He has not had a run of [...] ascites. Lactate unremarkable. [facility] and management. During his [...] been obtained and within normal limits. An INSPECTOR BALANCE WHEEL MOTION was called on 02/06/2023 for acute hypotension [...] (ABNORMAL) Hemoglobin (02/07/2023 11:02 AM CDT) Pathologist [facility] Hemoglobin 8.2(L) 13.2 - 16.6 g/dL 02/07/2023 11:51 AM CDT DTL Blood (Blood, Venous) 02/07/2023 11:02 AM CDT 02/07/2023 11:42 AM CDT Antonieta Eckert APRN.N.P., D.N .P. LAB BLOOD ADD-ON [facility] [address] [place] [address], [facility] [address] [place] [address] * (ABNORMAL) Basic Metabolic Panel (02/07/2023 7:46 AM CDT) Pathologist [facility] Potassium, S 4.3 3.6 - 5.2 mmol/L [...] APRN, C.N.P., D.N .P. LAB BLOOD ADD-ON [facility] [address] [address], [facility] [place] [address] * (ABNORMAL) CBC with Differential, Blood (02/07/2023 [...] APRN, C.N.P., D.N .P. LAB BLOOD ADD-ON [facility] [address] [place] [address], [facility] DTL [facility] [address] [place] [address] [facility] [address] [place] [address] * (ABNORMAL) Hemoglobin (02/06/2023 4:59 PM CDT) Hemoglobin 8.2(L) 13.2 - 16.6 g/dL 02/06/2023 5:39 PM CDT DTL Blood (Blood, Venous) 02/06/2023 4:59 PM CDT 02/06/2023 5:29 PM CDT Elvira Sanchez APRN, C.N.P., D.N .P. LAB BLOOD ADD-ON [facility] [address] [place] [address], [facility] DTL [facility] [address] [place] [address] * Transfuse Red Blood Cells : (02/06/2023 1:13 PM CDT) Elvira Sanchez APRN, C.N.P., D.N .P. BLOOD TRANSFUSION ORDERABLES * Transfuse Red Blood Cells : , 1 Units (02/06/2023 1:13 PM CDT) Elvira Sanchez APRN, C.N.P., D.N .P. BLOOD TRANSFUSION ORDERABLES * Type and Screen (with Reflex Antibody ID) (02/06/2023 9:37 AM CDT) [facility] Pos Not applicable 02/06/2023 10:06 AM CDT STRM Antibody Screen Negative Negative 02/06/2023 10:21 AM CDT STRM Type & Screen Expiration 02/09/2023 23:59 02/06/2023 10:06 AM CDT STRM Testing Location [facility] DEFAULT 02/06/2023 9:42 AM CDT STRM Blood (Blood, Venous) 02/06/2023 9:37 AM CDT 02/06/2023 9:42 AM CDT Elvira Sanchez APRN, C.N.P., D.N .P. LAB BLOOD BANK TEST ORDERABLES [facility] [address] [place] [address], [facility] STRM [facility] [address] [place] [address] * LD (Lactate Dehydrogenase) (02/06/2023 9:37 AM CDT) [facility] LD 164 122 - 222 U/L 02/06/2023 10:32 AM CDT DTL Blood (Blood, Venous) 02/06/2023 9:37 AM CDT 02/06/2023 10:15 AM CDT Kanchan Eckert APRNNJuan CPJuan C, D.N .P. LAB BLOOD NON ADD-ON Performing Organization Address City/[facility] Co de Phone Number [facility] [address] [place] [address], [facility] DTL [facility] [address] [place] [address] * Lactate (02/06/2023 9:37 AM CDT) Pathologist [facility] Lactate, P 0.6 0.5 - 2.2 mmol/L 02/06/2023 9:52 AM CDT STMA Blood (Blood, Venous) 02/06/2023 9:37 AM CDT 02/06/2023 9:41 AM CDT Mikey Orta M.D. LAB BLOOD NON ADD -ON Performing Organization Address City/[facility] Co de Phone Number [facility] [address] [place], [place] [id number] [place] [address] STMA [facility] [address] [place] [address] * Glucose, POCT (02/06/2023 8:04 AM CDT) [facility] Glucose, POCT, B 119 70 - 140 mg/dL 02/06/2023 8:06 AM CDT PCLX Site Capillary 02/06/2023 8:06 AM CDT PCLX Blood 02/06/2023 8:04 AM CDT 02/06/2023 8:06 AM CDT Unknown Provider LAB POCT ORDERABLES- MANUAL Performing Organization Address City/[facility]/ZIP Co de Phone Number POC [facility] [address] [place] [address], [facility] PCLX [facility] POC [address] [place] [address] * Hemoglobin A1c (02/06/2023 7:40 AM CDT) [facility] Hemoglobin A1c, B 4.6 4.0 - 5.6 % 02/06/2023 4:41 PM CDT DTL Blood (Blood, Venous) 02/06/2023 7:40 AM CDT 02/06/2023 4:23 PM CDT Kanchan Eckert APRNNHugo, PauloN Hugo LAB BLOOD ADD-ON Performing Organization Address City/[facility]/ZIP Co de Phone Number [facility] [address] [place] [address], [facility] DTL [facility] [address] [place] [address] * (ABNORMAL) SPSMA Result (02/06/2023 7:40 AM [...] CDT Mikey Orta M.D. LAB BLOOD ADD-ON [facility] [address] [place] [address], [facility] DHPM [facility] [address] [place] [address] * Folate (02/06/2023 7:40 AM CDT) Folate, S 7.3 >=4.0 mcg/L 02/06/2023 10:22 AM CDT DTL Blood (Blood, Venous) 02/06/2023 7:40 AM CDT 02/06/2023 9:10 AM CDT Antonieta Eckert APRN.N.PJuan C, D.N .P. LAB BLOOD ADD-ON [facility] [address] [place], [place] [phone] [place] [address] 200 [place] [address] * (ABNORMAL) Soluble Transferrin Receptor (sTfR) (02/06/2023 7:40 AM CDT) Soluble Transferrin Receptor (sTfR) 1.2(L) 1.8 - 4.6 mg/L 02/06/2023 9:58 AM CDT DT Comment: ----ADDITIONAL INFORMATION---- It is reported that Americans may have slightly higher values. Blood (Blood, Venous) 02/06/2023 7:40 AM CDT 02/06/2023 9:10 AM CDT Antonieta Eckert APRN.N.P., D.N .P. LAB BLOOD ADD-ON Performing Organization Address City/[facility]/ZIP Co de Phone Number [facility] [address] [place], [place] [phone] [place] [address] [address] [place] [address] * (ABNORMAL) Ferritin (02/06/2023 7:40 AM CDT) Ferritin, S 1226(H) 31 - 409 mcg/L 02/06/2023 9:58 AM CDT DT Blood (Blood, Venous) 02/06/2023 7:40 AM CDT 02/06/2023 9:10 AM CDT Elvira Sanchez APRN, Antonieta.N.P., D.N .P. LAB BLOOD ADD-ON [facility] [address] [place] [id number], [facility] [address] [address] * (ABNORMAL) Iron and Total Iron-Binding Capacity (02/06/2023 7:40 AM CDT) [facility] Iron 113 50 - 150 mcg/dL 02/06/2023 9:58 AM CDT DTL Total Iron Binding Capacity 142(L) 250 - 400 mcg/dL 02/06/2023 9:58 AM CDT DTL Percent Saturation 80(H) 14 - 50 % 02/06/2023 9:58 AM CDT DTL Blood (Blood, Venous) 02/06/2023 7:40 AM CDT 02/06/2023 9:10 AM CDT Elvira Sanchez APRN, C.N.P., D.N .P. LAB BLOOD ADD-ON Performing Organization Address City/State/[facility] Co de Phone Number [address] [address], [facility] [address] [address] * (ABNORMAL) Hepatic Function Panel (02/06/2023 7:40 AM CDT) [facility] Bilirubin, Total, S 0.6 0.0 - 1.2 [...] M.D. LAB BLOOD ADD-ON Performing Organization Address City/[facility]/ZIP Co de Phone Number [facility] 200 [place] [address] * Magnesium (02/06/2023 7:40 AM CDT) Pathologist [facility] Magnesium, S 1.9 1.7 - 2.3 mg/dL 02/06/2023 8:49 AM CDT DTL Blood (Blood, Venous) 02/06/2023 7:40 AM CDT 02/06/2023 8:24 AM CDT Elvira Sanchez APRN, C.N.P., D.N .P. LAB BLOOD ADD-ON Performing Organization Address City/[facility]/ZIP Co de Phone Number [facility] [address] [place] [address], [place] [address] * (ABNORMAL) CBC with Differential, Blood (02/06/2023 [...] APRN, C.N.P., D.N .P. LAB BLOOD ADD-ON [facility] [address] [place] [address], [facility] DTL [facility] [address] [place] [address] [facility] [address] [place] [address] * (ABNORMAL) Renal Function Panel (02/06/2023 7:40 [...] APRN, C.N.P., D.N .P. LAB BLOOD ADD-ON [facility] [address] [place] [address], [facility] [address] [place] [address] * (ABNORMAL) Phosphorus Inorganic (02/06/2023 7:40 AM CDT) Phosphorus (Inorganic), S 5.9(H) 2.5 - 4.5 mg/dL 02/06/2023 8:47 AM CDT DTL Blood (Blood, Venous) 02/06/2023 7:40 AM CDT 02/06/2023 8:26 AM CDT Antonieta Eckert APRN.N.P., D.N .P. LAB BLOOD ADD-ON Performing Organization Address City/[facility] Co de Phone Number [facility] [address] [place] [address], [facility] [address] [place] [address] * Magnesium (02/06/2023 7:40 AM CDT) Pathologist [facility] Magnesium, S 1.9 1.7 - 2.3 mg/dL 02/06/2023 8:47 AM CDT DTL Blood (Blood, Venous) 02/06/2023 7:40 AM CDT 02/06/2023 8:26 AM CDT Antonieta Eckert APRN.N.P., D.N .P. LAB BLOOD ADD-ON Performing Organization Address City/[facility] Co de Phone Number [facility] [address] [place] [address], [facility] [address] [place] [address] * ECG 12 Lead (02/05/2023 7:57 PM CDT) Ventricular Rate ECG/Min 89 BPM MUSE MS Interval 142 ms MUSE QRSD Interval 100 ms MUSE QT Interval 410 ms MUSE QTC Interval 498 ms MUSE P [place] 62 degrees MUSE R [place] 57 degrees MUSE T Wave [place] 104 degrees MUSE 02/05/2023 7:57 PM CDT [...] NERI, C.N.P., D.N .P. LAB BLOOD ADD-ON [facility] [address] [place] [address], [facility] STMA [facility] [address] [place] [address] DHPM [facility] [address] [place] [address] * ECG 12 Lead (02/05/2023 4:42 PM CDT) Ventricular Rate ECG/Min 89 BPM MUSE MS Interval 140 ms MUSE QRSD Interval 114 ms MUSE QT Interval 412 ms MUSE QTC Interval 501 ms MUSE P [place] 72 degrees MUSE R [place] 76 degrees MUSE T Wave [place] 71 degrees MUSE 02/05/2023 4:42 PM CDT [...] D.N .P. ECG ORDERABLES Performing Organization Address [facility] [[email or web address]] de Phone Number MUSE NA * ECG 12 Lead (02/05/2023 2:14 PM CDT) Ventricular Rate ECG/Min 82 BPM MUSE MS Interval 148 ms MUSE QRSD Interval 114 ms MUSE QT Interval 406 ms MUSE QTC Interval 474 ms MUSE P [place] 67 degrees MUSE R [place] 72 degrees MUSE T Wave [place] 83 degrees MUSE 02/05/2023 2:14 PM CDT [...] C, M.S.N. ECG ORDERABLES Performing Organization Address [facility] Co de Phone Number MUSE NA * Methylmalonic Acid (MMA), Quantitative (02/05/2023 9:58 AM CDT) Methylmalonic Acid, QN, S 0.32 <=0.40 nmol/mL 02/07/2023 8:32 AM CDT DTL Comment: ----ADDITIONAL INFORMATION---- This test was developed and its performance characteristics determined by [facility] in a manner consistent with CLIA requirements. This test has not been cleared or approved by the U.S. Food and Drug Administration. Blood (Blood, Venous) 02/05/2023 9:58 AM CDT 02/06/2023 7:37 AM CDT Kanchan Eckert APRNNRashida., D.N .P. LAB BLOOD ADD-ON [facility] [address] [place] [address], [facility] DTL [address] [facility] [address] [place] [address] * (ABNORMAL) CBC with Differential, Blood (02/05/2023 [...] APRN, C.N.P., D.N .P. LAB BLOOD ADD-ON [facility] [address] [place] [address], [facility] STMA [facility] [address] [place] [address] [facility] [address] [place] [address] * (ABNORMAL) Basic Metabolic Panel (02/05/2023 9:58 AM CDT) [facility] Potassium, P 5.6(H) 3.6 - 5.2 mmol/L [...] .P. LAB BLOOD ADD-ON Performing Organization Address City/[facility]/ZIP Co de Phone Number [facility] [address] STMA [facility] [address] [place] [address] * Folate (02/05/2023 9:58 AM CDT) Folate, S 9.5 >=4.0 mcg/L 02/05/2023 1: 27 PM CDT DTL Blood (Blood, Venous) 02/05/2023 9:58 AM CDT 02/05/2023 10:49 AM CDT Xochitl Dewitt M.D. LAB BLOOD ADD -ON Performing Organization Address City/[facility] Co de Phone Number [facility] [address] [place] [address], [facility] [place] [address] * (ABNORMAL) Vitamin B12 Assay (02/05/2023 9:58 [...] LAB BLOOD ADD -ON Performing Organization Address City/[facility]/ZIP Co de Phone Number [facility] [address] [place] [address], [facility] DTL [facility] [address] [place] [address] * (ABNORMAL) SPSMA Result (02/05/2023 9:58 AM [...] Xochitl Dewitt M.D. LAB BLOOD ADD -ON [facility] [address] [place] [address], [facility] DHPM [facility] [address] [place] [address] * (ABNORMAL) Reticulocyte Profile (02/05/2023 9:58 AM [...] LAB BLOOD ADD -ON Performing Organization Address City/[facility]/ZIP Co de Phone Number [facility] [address] [facility] [address] [place] [address] * (ABNORMAL) Ferritin (02/05/2023 9:58 AM CDT) Ferritin, S 1364(H) 31 - 409 mcg/L 02/05/2023 11:24 AM CDT DTL Blood (Blood, Venous) 02/05/2023 9:58 AM CDT 02/05/2023 10:49 AM CDT Xochitl Dewitt M.D. LAB BLOOD ADD -ON [facility] [address] [place], [place] [id number] [place] [address] [place] [address] * (ABNORMAL) Iron and Total Iron-Binding Capacity [...] LAB BLOOD ADD -ON Performing Organization Address City/[facility] Co de Phone Number [facility] [address] [place] [address] * (ABNORMAL) Phosphorus Inorganic (02/05/2023 9:58 AM CDT) Phosphorus (Inorganic), S 8.2(H) 2.5 - 4.5 mg/dL 02/05/2023 12:19 PM CDT DTL Blood (Blood, Venous) 02/05/2023 9:58 AM CDT 02/05/2023 10:49 AM CDT Xochitl Dewitt M.D. LAB BLOOD ADD -ON Performing Organization Address [facility] Co de Phone Number [facility] [address] [place], [place] [phone] [place] [address] [address] [place] [address] * (ABNORMAL) Magnesium (02/05/2023 9:58 AM CDT) Magnesium, S 2.7(H) 1.7 - 2.3 mg/dL 02/05/2023 10:56 AM CDT DTL Blood (Blood, Venous) 02/05/2023 9:58 AM CDT 02/05/2023 10:40 AM CDT Renay Bolton M.D. LAB BLOOD ADD-ON Performing Organization Address City/[facility]/ZIP Co de Phone Number [facility] [address] [place] [phone], [facility] DTL [facility] [place] [address] [place] [address] * CT Abdomen Pelvis Angiogram with IV [...] left kidney. Candi Kanchan Conteh APRNNHugo, Eulogio.N.P. [facility] CT PROCEDURES * CT Abdomen [...] Nobowel obstruction. No perforation. Renay Bolton M.D. [facility] CT MS OCEDURES * CT Head without IV Contrast [...] No acute intracranial findings. Renay Bolton M.D. [facility] CT MS OCEDURES * Microscopic Manual (02/05/2023 12:47 AM [...] M.D. LAB URINE ORDERABLES Performing Organization Address [facility] Co de Phone Number [facility] [address] [place] [address], [facility] [address] [place] [address] * (ABNORMAL) Dipstick, Urine (02/05/2023 12:47 AM [...] M.D. LAB URINE ORDERABLES Performing Organization Address City/[facility] Co de Phone Number [facility] [address] [place] [address], [facility] [address] [place] [address] * pH, Urine (02/05/2023 12:47 AM CDT) pH, U 7.1 4.5 - 8.0 02/05/2023 1:3 6 AM CDT DTL Urine 02/05/2023 12:4 7 AM CDT 02/05/2023 1:09 AM CDT Bishop Melgar M.D. LAB URINE ORDERABLES Performing Organization Address [facility] Co de Phone Number [facility] [address] [place], [place] [phone] [place] [address] [address] [place] [address] * Osmolality, Urine (02/05/2023 12:47 AM CDT) Pathologist [facility] Osmolality, U 331 150 - 1150 mOsm/kg 02/05/2023 1:36 AM CDT DT Urine 02/05/2023 12:4 7 AM CDT 02/05/2023 1:09 AM CDT Bishop Melgar M.D. LAB URINE ORDERABLES Performing Organization Address [facility] Co de Phone Number [facility] [address] [place], [place] [phone] [place] [address] [address] [place] [address] * Bacterial Culture, Aerobic + Susceptibility, Urine (02/05/2023 12:47 AM CDT) [facility] Urine Culture No growth after 1 day of incubation. 02/06/2023 8:15 AM CDT [facility] Urine (Urine, Midstream) 02/05/2023 12:47 AM CDT 02/05/2023 4:25 AM CDT Comment:Specimen Source Site : Urine Bishop Melgar M.D. LAB MICROBIOLOGY - G ENERAL ORDERABLES Performing Organization Address City/[facility] Co de Phone Number [facility] [address] [place], [place] [phone] [place] [address] [address] [place] [address] * (ABNORMAL) Urinalysis with Microscopic: Urine, Midstream (02/05/2023 12:47 AM CDT) Pathologist [facility] Source Urine, Urine, Midstream 02/05/2023 1:09 AM CDT DTL Color, U Yellow 02/05/2023 1:09 AM CDT DTL Clarity, U Clear 02/05/2023 1:09 AM CDT DTL Protein, U 231(H) <26 mg/dL 02/05/2023 2:01 AM CDT DTL Protein/Osmol ality 6.98(H) <0.42 ratio 02/05/2023 2:01 AM CDT DTL Predicted 24 HR Protein, U 5998(H) <229 mg/24 h 02/05/2023 2:01 AM CDT DTL Predicted Range 1904-03375 mg/24 h 02/05/2023 2:01 AM CDT DTL Urine (Urine, Midstream) 02/05/2023 12:47 AM CDT 02/05/2023 1:09 AM CDT Bishop Melgar M.D. LAB URINE ORDERABLES Performing Organization Address City/[facility]/ZIP Co de Phone Number [facility] [address] [place], [place] [phone] [place] [address] DTL [facility] [address] [place] [address] * Lactate (02/04/2023 10:05 PM CDT) [facility] Lactate, P 1.0 0.5 - 2.2 mmol/L 02/04/2023 10:40 PM CDT STMA Blood (Blood, Venous) 02/04/2023 10:05 PM CDT 02/04/2023 10:21 PM CDT Bishop Melgar M.D. LAB BLOOD NON ADD-ON [facility] [address] [place], [place] [phone] [place], [place] [address] [place] [address] * (ABNORMAL) CBC with Differential, Blood (02/04/2023 10:05 PM CDT) [facility] Hemoglobin 7.8(L) 13.2 - 16.6 g/dL 02/04/2023 [...] CDT Bishop Melgar M.D. LAB BLOOD ADD-ON [facility] [address] [place] [address], [facility] STMA [facility] [address] [place] [address] DHPM [facility] [address] [place] [address] * Lipase (02/04/2023 10:05 PM CDT) Lipase, S 48 13 - 60 U/L 02/04/2023 11:05 PM CDT DTL Blood (Blood, Venous) 02/04/2023 10:05 PM CDT 02/04/2023 10:50 PM CDT Bishop Melgar M.D. LAB BLOOD ADD-ON Performing Organization Address City/[facility]/ZIP Co de Phone Number [facility] [address] [place] [address], [facility] DTL [facility] [address] [place] [address] * (ABNORMAL) Hepatic Function Panel (02/04/2023 10:05 [...] CDT Bishop Melgar M.D. LAB BLOOD ADD-ON [facility] [address] [place] [address], [facility] DTL [facility] [address] [place] [address] * (ABNORMAL) Basic Metabolic Panel (02/04/2023 10:05 [...] CDT Bishop Melgar M.D. LAB BLOOD ADD-ON [facility] [address] [place] [address], [facility] STMA [facility] [address] [place] [address] * DX Chest AP or PA and [...] CDT) Ventricular Rate ECG/Min 86 BPM MUSE MS Interval 146 ms MUSE QRSD Interval 100 ms MUSE QT Interval 376 ms MUSE QTC Interval 449 ms MUSE P [place] 68 degrees MUSE R [place] 77 degrees MUSE T Wave [place] 81 degrees MUSE 02/04/2023 8:22 PM CDT [...] - 200 mg/dL 02/06/2023 5:15 PM CDT [facility] Blood 02/04/2023 2:36 PM CDT 02/06/2023 2:36 PM CDT Mikey Orta M.D. LAB BLOOD ADD-ON [facility] [address] [place] [address] [facility] [address] [place] [address] documented in this encounter Visit Diagnoses Diagnosis [...] documented as of this encounter Care Teams Seed Corn Manager Production Relationship Specialty Start Date End Date Elsewhere, Pcp PCP - General Internal Medicine 02/04/23 documented as of this encounter
--- OUTSIDE RECORDS SUMMARY | 2023-05-09 15:56 | XMS_ITS | Encounter Summary ---
Author Name Unknown Organization [facility] Address [address] [place] [address] Care Team Providers Care Chief Counsel Name Role Phone None Reported, Pcp Primary Care Provider Unavail able Encounter Details Date Type Department Care Team ([facility] st Contact Info) Description 12/10/2022 Orders Only Division of Nephrology and Hypertension, [facility], in [place], [place] [address] [place] [address] Drew Mo, HALLE, C.N.P., M.S.N. [address] [place] [address] Social History Tobacco Use Types Packs/Day Years [...] your living situation today? I have a [facility] place to live 11/14/2022 Sex and Gender Information Value Date Recorded Sex Assigned at Male 11/14/2022 11:03 AM CDT Gender Identity Male 11/14/2022 11:03 AM CDT Sexual Orientation Straight 11/14/2022 11 :03 AM CDT documented as of this encounter Plan of Treatment Not on file documented as of this encounter Visit Diagnoses Not on filedocumented in this encounter Care Teams Chief Counsel Relationship Specialty Start Date End Date None Reported, Pcp PCP - General Family Medicine 07/28/22 02/03/23 documented as of this encounter
--- OUTSIDE RECORDS SUMMARY | 2023-05-09 15:56 | XMS_ITS | Encounter Summary ---
Author Name Unknown Organization [facility] Address [address] [place] [address] Care Team Providers Care Title I Director Name Role Phone None Reported, Pcp Primary Care Provider Unavail able Encounter Details Date Type Department Care Team ([facility] st Contact Info) Description 01/14/2023 Orders Only Division of Nephrology and Hypertension in [place], [place] [address] [place] [address] Concetta Mejía M.D., Ph.D. [address] [place] [address] Social History Tobacco Use Types Packs/Day Years [...] your living situation today? I have a [facility] place to live 11/14/2022 Sex and Gender Information Value Date Recorded Sex Assigned at Male 11/14/2022 11:03 AM CDT Gender Identity Male 11/14/2022 11:03 AM CDT Sexual Orientation Straight 11/14/2022 11 :03 AM CDT documented as of this encounter Plan of Treatment Not on file documented as of this encounter Visit Diagnoses Not on filedocumented in this encounter Care Teams Title I Director Relationship Specialty Start Date End Date None Reported, Pcp PCP - General Family Medicine 07/28/22 02/03/23 documented as of this encounter
--- OUTSIDE RECORDS SUMMARY | 2023-05-09 15:56 | XMS_ITS | Encounter Summary ---
Author Name Unknown Organization [facility] Address [address] [place] [address] Care Team Providers Care Continuing Education Dean Name Role Phone None Reported, Pcp Primary Care Provider Unavail able Reason for Referral * Outpatient (Routine) - Authorized Specialty Diagnoses / Procedures Referred By Elianaac t Referred To Contact Diagnoses Spells Undifferentiated Syncope Vasovagal Procedures Autonomic reflex Screen Chan Herrera M.D., Ph.D. [address] [place] [phone] [facility] Referral ID Status Reason Start Date Expiration Date V isits Requested Visits Authorized [id number] Authorized 11/21/2022 11/21/2023 1 1 Reason for Visit * Outpatient (Routine) - Closed Specialty Diagnoses / Procedures Referred By Contac t Referred To Contact Neurology Diagnoses Spells Undifferentiated Sundeep Barlow M.D. [address] [place] [phone] [facility] Referral ID Status Reason Start Date Expiration Date Visits Re quested Visits Authorized [id number] Closed 10/29/2022 10/28/2025 1 1 Encounter Details Date Type Department Care Team (Latest Contact Info) Description 11/21/2022 1:00 PM CDT Comprehensive Visit Department of Neurology in [place], [place] [address] [place] [phone] Chan Herrera M.D., Ph.D. [address] [place] [phone] Franciscolls Undifferentiated (Primary Dx); Syncope Vasovagal Social [...] your living situation today? I have a [facility] place to live 11/14/2022 Sex [...] Dr. Sundeep Barlow Primary Care Provider: Dr. Stef Ho CHIEF COMPLAINT / REASON FOR VISIT [...] the impetus for him to move to [place]. He islooking forward to get in his life established in the [place]. 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 He completed a basic [...] on mom's side SOCIAL HISTORY Moved to [place] February of 2022. Currently lives alone in [place], [place]. 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 Denies recent alcohol, tobacco, or other substance use. Is working on establishing a new life in the [place] after having previously lived in [facility]. REVIEW OF SYSTEMS Constitutional: - Negative for [...] in arms or legs. 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, I recommended autonomic reflex [...] PGY-2 Resident Department of Neurology Pager # [phone] 11/21/22 Orders Placed This Encounter Procedures Autonomic reflex Screen documented in this encounter Plan of Treatment Scheduled Orders Name Type Priority Associated Diagnoses Orde r Schedule Autonomic reflex Screen Neurology Routine Spells Undifferentiated Syncope Vasovagal Expected: 11/21/2022 (Approximate), Expires: 02/22/2024 documented as of this encounter Visit Diagnoses Diagnosis Spells Undifferentiated- Primary Syncope Vasovagal documented in this encounter Care Teams Continuing Education Dean Relationship Specialty Start Date End Date None Reported, Pcp PCP - General Family Medicine 07/28/22 02/03/23 documented as of this encounter
--- OUTSIDE RECORDS SUMMARY | 2023-05-09 15:56 | XMS_ITS | Encounter Summary ---
Author Name Unknown Organization [facility] Address [address] [place] [address] Care Team Providers Care Water Main Inspector Name Role Phone Elsewhere, Pcp Primary Care Provider Unavailabl e Encounter Details Date Type Department Care Team (Late st Contact Info) Description 01/27/2023 Orders Only Division of Nephrology and Hypertension, [facility], in [place], [place] [address] [place] [address] Drew Mo, HALLE, C.N.P., M.S.N. [address] [place] [address] Social History Tobacco Use Types Packs/Day Years [...] your living situation today? I have a [facility] place to live 11/14/2022 Sex and [...] documented as of this encounter Care Teams Water Main Inspector Relationship Specialty Start Date End Date Elsewhere, Pcp PCP - General Internal Medicine 02/04/23 documented as of this encounter
--- OUTSIDE RECORDS SUMMARY | 2023-05-09 15:57 | XMS_ITS | Encounter Summary ---
Author Name Unknown Organization [facility] Address [address] [place] [address] Care Team Providers Care Court Stenographer Name Role Phone None Reported, Pcp Primary Care Provider Unavail able Reason for Visit * Outpatient (Routine) - Authorized Specialty Diagnoses / Procedures Referred By Mel t Referred To Contact Diagnoses Pain Chest Procedures NM Cardiac Perfusion Rest and Stress SPECT Drew Mo APRN C.N.P., M.S.N. [address] [place] [phone] [facility] Region Referral ID Status Reason Start Date Expiration Date V isits Requested Visits Authorized [id number] Authorized 07/11/2022 07/11/2023 6 6 Encounter Details Date Type Department Care Team (Latest Contact Info) Description 11/04/2022 9:47 AM CDT - 11/04/2022 11:59 PM CDT Hospital Encounter Department of Cardiovascular Diseases in [place], [place] [address] [place] [phone] Drew Mo APRN, C.N.P., M.S.N. [address] [place] [phone] Discharge Disposition: Home or Self Care Social [...] your living situation today? I have a [facility] place to live 11/02/2022 Sex [...] Hand documented in this encounter Care Teams Court Stenographer Relationship Specialty Start Date End Date None Reported, Pcp PCP - General Family Medicine 07/28/22 02/03/23 documented as of this encounter
--- OUTSIDE RECORDS SUMMARY | 2023-05-09 15:57 | XMS_ITS | Encounter Summary ---
Author Name Unknown Organization [facility] Address [address] [place] [address] Care Team Providers Care Die Turner Name Role Phone None Reported, Pcp Primary Care Provider Unavail able Encounter Details Date Type Department Care Team ([facility] st Contact Info) Description 10/31/2022 Orders Only Division of Nephrology and Hypertension, [facility], in [place], [place] [address] [place] [address] Drew Mo, HALLE, C.N.P., M.S.N. [address] [place] [address] Social History Tobacco Use Types Packs/Day Years [...] your living situation today? I have a [facility] place to live 11/14/2022 Sex and Gender Information Value Date Recorded Sex Assigned at Male 11/14/2022 11:03 AM CDT Gender Identity Male 11/14/2022 11:03 AM CDT Sexual Orientation Straight 11/14/2022 11 :03 AM CDT documented as of this encounter Plan of Treatment Not on file documented as of this encounter Visit Diagnoses Not on filedocumented in this encounter Care Teams Die Turner Relationship Specialty Start Date End Date None Reported, Pcp PCP - General Family Medicine 07/28/22 02/03/23 documented as of this encounter
--- OUTSIDE RECORDS SUMMARY | 2023-05-09 15:57 | XMS_ITS | Encounter Summary ---
Author Name Unknown Organization [facility] Address [address] [place] [address] Care Team Providers Care Kaiako Kura Kaupapa Maori Name Role Phone None Reported, Pcp Primary Care Provider Unavail able Reason for Visit * Reason Comments Chest Pain * Outpatient (Routine) - Closed Specialty Diagnoses / Procedures Referred By Contact Referred To Contact Cardiovascular Diseases / Cardiovascular Disease Diagnoses Pain Chest Drew Mo APRN C.N.P., M.S.N. [address] [place] [phone] [facility] Region Referral ID Status Reason Start Date Expiration Date Visits Re quested Visits Authorized [id number] Closed 07/11/2022 07/11/2023 1 1 Encounter Details Date Type Department Care Team (Late st Contact Info) Description 11/06/2022 10:30 AM CDT Comprehensive Visit Department of Cardiovascular Diseases in [place], [place] [address] [place] [phone] Sergei Ibrahim M.D. [address] [place] [phone] Pain Chest Social History Tobacco Use Types [...] your living situation today? I have a [facility] place to live 11/14/2022 Sex and [...] understand that last February he moved to [place] from [facility] in the setting of a challenging social situation in [place]. He does have a history of uncontrolled [...] this. He is currently living alone in [place]. He does not have much social support here in [place] yet. He has access to director of social services via dialysis and is planning to arrange [...] SOCIAL HISTORY Ms. Justin currently lives in [place], [place], by himself. He has historically worked [...] Sergei Ibrahim M.D. CT CT Job ID: [id number] documented in this encounter Plan of Treatment Not on file documented as of this encounter Visit Diagnoses Diagnosis Pain Chest documented in this encounter Care Teams Kaiako Kura Kaupapa Maori Relationship Specialty Start Date End Date None Reported, Pcp PCP - General Family Medicine 07/28/22 02/03/23 documented as of this encounter
--- OUTSIDE RECORDS SUMMARY | 2023-05-09 15:57 | XMS_ITS | Encounter Summary ---
Author Name Unknown Organization [facility] Address [address] [place] [address] Care Team Providers Care Car Shunter Name Role Phone None Reported, Pcp Primary Care Provider Unavail able Reason for Referral * Outpatient (Routine) - Authorized Specialty Diagnoses / Procedures Referred By Contac t Referred To Contact Diagnoses Pain Chest Procedures NM Cardiac Perfusion Rest and Stress SPECT Drew Mo APRN C.N.P., M.S.N. 200 [place] [address] [facility] Region Referral ID Status Reason Start Date Expiration Date V isits Requested Visits Authorized [id number] Authorized 07/11/2022 07/11/2023 6 6 Reason for Visit * Outpatient (Routine) - Authorized Specialty Diagnoses / Procedures Referred By Contac t Referred To Contact Diagnoses Pain Chest Procedures NM Cardiac Perfusion Rest and Stress SPECT Drew Mo APRN, C.N.P., M.S.N. [address] [place] [address] [facility] Region Referral ID Status Reason Start Date Expiration Date V isits Requested Visits Authorized [id number] Authorized 07/11/2022 07/11/2023 6 6 Encounter Details Date Type Department Care Team (Latest Contact Info) Description 11/04/2022 7:55 AM CDT - 11/04/2022 8:27 AM CDT Hospital Encounter Department of Radiology in [place], [place] [address] [place] [phone] Drew Mo APRN, C.N.P., M.S.N. [address] [place] [address] Pain Chest Discharge Disposition: Home or Self [...] a [facility] place to live 11/02/2022 Sex and Gender [...] Drew Mo APRN C.N.P., M.S.N. [facility] [employer] MALGORZATA NA documented in this encounter Visit [...] Hand documented in this encounter Care Teams Car Shunter Relationship Specialty Start Date End Date None Reported, Pcp PCP - General Family Medicine 07/28/22 02/03/23 documented as of this encounter
--- OUTSIDE RECORDS SUMMARY | 2023-05-09 15:57 | XMS_ITS | Encounter Summary ---
Author Name Unknown Organization [facility] Address [address] [place] [address] Care Team Providers Care Client Program Manager Name Role Phone None Reported, Pcp Primary Care Provider Unavail able Reason for Referral * Outpatient (Routine) - Closed Specialty Diagnoses / Procedures Referred By Mel quiroz Referred To Contact Neurology Diagnoses Spells Undifferentiated Sundeep Barlow M.D. [address] [place] [phone] [facility] Referral ID Status Reason Start Date Expiration Date Visits Re quested Visits Authorized [id number] Closed 10/29/2022 10/28/2025 1 1 * Outpatient (Routine) - Closed Specialty Diagnoses / Procedures Referred By Mel quiroz Referred To Contact Neurology Diagnoses Spells Undifferentiated Procedures EEG routine - awake and sleep Sundeep Barlow M.D. [address] [place] [phone] [facility] Referral ID Status Reason Start Date Expiration Date Visits Re quested Visits Authorized [id number] Closed 10/29/2022 10/29/2023 1 1 Reason for Visit * Reason Comments Seizures Encounter Details Date Type Department Care Team ([facility] st Contact Info) Description 10/29/2022 1:15 AM CDT - 10/29/2022 2:28 PM CDT [facility] Emergency Department [address] [place] [phone] Yecenia Sanchez M.D., M.S. 200 [place] [phone] Jack Velazquez M.D., Ph.D. 200 [place] [phone] Spells Neurological (HCC) (Primary Dx); Spells Undifferentiated; [...] to this Admission Follow up with a [place] provider: Clinic to decide Test Results Pending [...] Kidney Disease: The Importance of Good Nutrition (Grenadian) * Managing Non-Epileptic Seizures Adult (Grenadian) documented in this encounter Medications at Time [...] and reviewed role of the ED social work specialist. Patient reported understanding and was agreeable to [...] due to 29 of October closures Sloane Ma M.D. Resident 10/29/22 0543 documented in this [...] child diagnosed when he lived in the [facility]. He reportedly had an abnormal EEG at [...] seen for spells both by neurology at [place] as well as by HIM here. I [...] an Emergency Neurology Consult note. Please contact [phone] for any questions. documented in this encounter [...] 10/29/2022. He reports he gets dialysis in [place] however the dialysis center does not have appointments for him to have a dialysis today andhe also has difficulty with transportation. We discussed the case with social work to try to help with transportation from the ED to his home in [place] as well as from his home to the dialysis center however at this time facilitating this transportation and trying to find an opening in the dialysis center is not possible. We discussed the case with nephrology test consultant who agreed for dialysis in the ED observation unit. The room North 9 will be used for dialysis. The patient can be dismissed home after dialysis today. 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 10/29/22626 * Sloane Ma [...] or any substances. 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 Resident 10/29/22 5598 documented in this encounter Plan of Treatment [...] findings. Georgia Estrada P.A.-C., M.S. IMG CT [place] OCEDURES * HBs Antigen Scrn, S (10/29/2022 8:17 AM CDT) HBs Antigen Scrn, S Negative Negative 10/30/2022 11:22 AM CDT [facility] Blood (Blood, Venous) 10/29/2022 8:17 AM CDT 10/30/2022 7:31 AM CDT Jennifer Chaney M.D., Ph.D. LAB MICROBIOL OGY - BLOOD ORDERABLES [facility] [address] [place] [address] [facility] [address] [place] [address] * HCV Ab w/Reflex to HCV PCR, Serum (10/29/2022 8:17 AM CDT) HCV Ab, S Negative Negative 10/30/2022 11:39 AM CDT [facility] Comment:Wfflab-os-qhsgay rat io is <1.00. Blood (Blood, Venous) 10/29/2022 8:17 AM CDT 10/30/2022 7:31 AM CDT Jennifer Chaney M.D., Ph.D. LAB MICROBIOL OGY - BLOOD ORDERABLES Performing Organization Address [facility] de Phone Number [facility] [address] [place] [address] [place] [address] * HBs Antibody Scrn, Serum (10/29/2022 8:17 AM CDT) HBs Antibody Scrn, S CANCELED 04/08/2023 11:02 AM [facility]IC[facility] SPECIALIST [facility] Comment: REVISED RESULTS This result was cancelled. Report is cancelled due to a vendor reagent quality issue. Retesting of a new specimen is recommended if clinically indicated. ----PREVIOUSLY REPORTED ---- Positive Patient is considered to be immune to infection with HBV., Flagged as: Normal (Reported 10/30/2022 11:40) HBs Antibody, Quantitative, S CANCELED mIU/mL 04/08/2023 11:02 AM HELICOPTER SPECIALIST [facility] Comment: REVISED RESULTS ----PREVIOUSLY REPORTED ---- 16.5, Flagged as: N/A (Reported 10/30/2022 11:40) Blood (Blood, Venous) 10/29/2022 8:17 AM CDT 10/30/2022 7:31 AM CDT Jennifer Chaney M.D., Ph.D. LAB MICROBIOL OGY - BLOOD ORDERABLES Performing Organization Address [facility] Co de Phone Number [facility] [address] [place] [address] [facility] [address] [place] [address] * HBc Total Ab Scrn, S (10/29/2022 8:17 AM CDT) Pathologist [facility] HBc Total Ab Scrn, S Negative Negative 10/30/2022 11:39 AM CDT [facility] Blood (Blood, Venous) 10/29/2022 8:17 AM CDT 10/30/2022 7:31 AM CDT Jennifer Chaney M.D., Ph.D. LAB MICROBIOL OGY - BLOOD ORDERABLES Performing Organization Address [facility] Co de Phone Number [facility] [address] [place] [address] [facility] [address] [place] [address] * Lactate, POCT (10/29/2022 4:22 AM CDT) Pathologist [facility] Lactate, POCT 0.71 0.50 - 2.20 mmol/L 10/29/2022 6:17 AM CDT [facility] Blood (Blood, Venous) 10/29/2022 4:22 AM CDT 10/29/2022 4:22 AM CDT Sloane Ma M.D. LAB POCT ORDERABLES - DEVICE Performing Organization Address [facility] Co de Phone Number [facility] [address] [place] [address], [facility] [employer] [facility] [address] [place] [address] * Phosphorus Inorganic (10/29/2022 3:24 AM CDT) Phosphorus (Inorganic), S 4.5 2.5 - 4.5 mg/dL 10/29/2022 3:57 AM CDT [facility] Blood (Blood, Venous) 10/29/2022 3:24 AM CDT 10/29/2022 3:45 AM CDT Carlos Canseco M.D. LAB BLOOD ADD-ON Performing Organization Address City/[facility]/ZIP Co de Phone Number [facility] 200 [place] [address], [facility] 200 [place] [address] * (ABNORMAL) Magnesium (10/29/2022 3:24 AM CDT) Pathologist [facility] Magnesium, S 2.7(H) 1.7 - 2.3 mg/dL 10/29/2022 3:57 AM CDT [facility] Blood (Blood, Venous) 10/29/2022 3:24 AM CDT 10/29/2022 3:45 AM CDT Carlos Canseco M.D. LAB BLOOD ADD-ON Performing Organization Address [facility] Co de Phone Number [facility] 200 [place] [address], [facility] 200 [place] [address] * ECG 12 Lead (10/29/2022 3:05 AM CDT) Pathologist [facility] Ventricular Rate ECG/Min 101 BPM MUSE [place] Interval 152 ms MUSE QRSD Interval 106 ms MUSE QT Interval 346 ms MUSE QTC Interval 448 ms MUSE P [place] 58 degrees MUSE R [place] 77 degrees MUSE T Wave [place] 58 degrees MUSE 10/29/2022 3:05 AM CDT [...] AM CDT) [facility] Potassium, P 5.1 3.6 - 5.2 mmol/L [...] CDT Sloane Ma M.D. LAB BLOOD ADD-ON [facility] [address] [place] [address], [facility] DTL [facility] [address] [place] [address] * (ABNORMAL) CBC without Differential (10/29/2022 1:40 [...] CDT Sloane Ma M.D. LAB BLOOD ADD-ON [facility] [address] [place] [address], [facility] STMA [facility] [address] [place] [address] documented in this encounter Visit Diagnoses Diagnosis [...] R.N.) documented in this encounter Care Teams Client Program Manager Relationship Specialty Start Date End Date None Reported, Pcp PCP - General Family Medicine 07/28/22 02/03/23 documented as of this encounter
--- OUTSIDE RECORDS SUMMARY | 2023-05-09 15:57 | XMS_ITS | Encounter Summary ---
Author Name Unknown Organization [facility] Address [address] [place] [address] Care Team Providers Care Welder/Fabricator Name Role Phone None Reported, Pcp Primary Care Provider Unavail able Reason for Visit * Outpatient (Routine) - Authorized Specialty Diagnoses / Procedures Referred By Mel t Referred To Contact Diagnoses Pain Chest Procedures NM Cardiac Perfusion Rest and Stress SPECT Drew Mo APRN C.N.P., M.S.N. [address] [place] [address] [phone] [facility] Region Referral ID Status Reason Start Date Expiration Date V isits Requested Visits Authorized [id number] Authorized 07/11/2022 07/11/2023 6 6 Encounter Details Date Type Department Care Team (Latest Contact Info) Description 11/04/2022 8:28 AM CDT - 11/04/2022 9:46 AM CDT Hospital Encounter Department of Radiology in [place], [place] [address] [place] [phone] Drew Mo APRN, C.N.P., M.S.N. [address] [place] [phone] Discharge Disposition: Home or Self Care Social [...] [facility] 11/02/2022 Sex and [...] For Result Drew Mo APRN, C.N.P., M.S.N. [facility] P ROCEDURES [place] NA documented in this encounter Visit Diagnoses Not on filedocumented in this encounter Care Teams Welder/Fabricator Relationship Specialty Start Date End Date None Reported, Pcp PCP - General Family Medicine 07/28/22 02/03/23 documented as of this encounter
--- OUTSIDE RECORDS SUMMARY | 2023-05-09 15:57 | XMS_ITS | Encounter Summary ---
Author Name Unknown Organization [facility] Address [address] [place] [address] Care Team Providers Care Advisor To Command In Combat Name Role Phone None Reported, Pcp Primary Care Provider Unavail able Reason for Visit * Reason Onset Date Comments Txp Initial RN Phone Interview 10/30/2022 * Appointment Request (Routine) - Closed Specialty Diagnoses / Procedures Referred By Contac t Referred To Contact Transplant Diagnoses [id number] Please see [id number] for updated notes and approval. Procedures [id number]- Please see [id number] for updated notes and approval. [facility] [address] [place] [phone] Referral ID Status Reason Start Date Expiration Date Visits Re quested Visits Authorized [id number] Closed 10/10/2022 10/10/2023 1 1 Encounter Details Date Type Department Care Team (Latest Contact Info) Description 10/30/2022 10:30 AM CDT Clinical Communication Maco ferreira [facility] in [place], [place] [address] [place] [phone] Jasmin Candelario, RJuan CNJuan C [address] [place] [phone] Txp Initial RN Phone Interview Social History [...] your living situation today? [facility] 11/14/2022 Sex [...] Received/ Date in CE Outside Facility [] 6465 Form * [] Dialysis Run Sheets * Last 3 Runs [] [x] Colonoscopy with Pathology * Most Recent within 10 years [] 10/30 11/06 [place], [place] [phone] [] Pap Smear * Most Recent within [...] EGD w/Pathology Most Recent [] 10/30 11/06 [place], [place] [phone] Both 2017 and 2020 [x] History & Physical * [x] Physician Consultation * Last 12 Months [] 10/30 10/31 [place], [place] [phone] Will want records from 2020 when we underwent transplant eval [] Labs Last 3 (within 12 Months) [] [] Medication List Most Recent (within 12 Months) [] [] [facility] Biopsy Report [] Biopsy Slides Most Recent [] [] [facility] Pathology Report Most Recent [] [] Office Notes Last 12 Months [] [] Pathology Reports Most Recent [] [] Pulmonary Function Tests Last 12 Months [] [] Psycho-Social Assessments Last 12 Months [] [] Ultrasound [] Abdomen [] Renal Last 12 Months [] [] Vaccinations All [] Cardiac Testing:Will the patient see a Bridge Builder for Evaluation: YES If yes, Coronary Angiogram films & report needed. Last 5 years [] 10/30 10/31 [place], [place] [phone] Or [facility] [phone] [] Cardiac Stress Test Last 12 Months [...] to moderately controlled on 4 meds. H/o [place] [id number]. He has been in ED 9 times in last 4 months and notes do state noncompliance with meds. Will have cardiac workup at [facility] on 11/04/2022. Also patient is supposed to be on meds for seizures but stopped them after one month stating he ???didn't feel like they helped?? . Was worked up for transplant in [facility] but later denied d/t noncompliance with dialysis. [...] Received/ Date in CE Outside Facility [] 9770 Form * [] Dialysis Run Sheets * Last 3 Runs [] [x] Colonoscopy with Pathology * Most Recent within 10 years [] [place], [place] [phone] [] Pap Smear * Most Recent within 3 years [] [] Mammogram * Most Recent [] [] Bladder Study Last 12 Months [] [] CT/MRI of: []Abdomen []Pelvis [] Chest [] Other: Last 12 Months [] [] Cystoscopy Last 12 Months [] [] Diagnostic Imaging Reports Last 12 Months [] [] Discharge Summaries Last 12 Months [] [x] EGD w/Pathology Most Recent [] [place], [place] [phone] Both 2017 and 2020 [x] History & Physical * [x] Physician Consultation * Last 12 Months [] [place], [place] [phone] Will want records from 2020 when we underwent transplant eval [] Labs Last 3 (within 12 Months) [] [] Medication List Most Recent (within 12 Months) [] [] [facility] Biopsy Report [] Biopsy Slides Most Recent [] [] [facility] Pathology Report Most Recent [] [] Office Notes Last 12 Months [] [] Pathology Reports Most Recent [] [] Pulmonary Function Tests Last 12 Months [] [] Psycho-Social Assessments Last 12 Months [] [] Ultrasound [] Abdomen [] Renal Last 12 Months [] [] Vaccinations All [] Cardiac Testing:Will the patient see a Bridge Builder for Evaluation: YES If yes, Coronary Angiogram films & report needed. Last 5 years [] [place], [place] [phone] Or [facility] [phone] [] Cardiac Stress Test Last 12 Months [...] Yes Informed of COVID vaccine recommendation: Yes Mannequin Molder Utilized: No Phone Screen Type: Kidney Completed [...] d/t depression in 2020) If Yes, where: [place] in [facility] Currently Listed at another Transplant Center: No If yes: Center Name: Coordinator Name: Contact Number: Kidney History: Anuric: No Oliguric (decreased urine output): Yes Dialysis: Hemodialysis Dialysis Schedule Date Dialysis [facility] and completes in entirety unless in hospital and then dialyzes in hospital Kidney Stones: Yes thinks maybe had one one time in 10/2021, didn't go to doctor UTI History: No Diabetes History: NA Colonoscopy: Yes Facility [facility] Date 2017 due to ulcers EGD: Yes [facility] Date 2017 and 2020 Mammo: NA Pap: NA Cardiovascular History: HTN: Yes Moderately controlled on 4 meds [place]: Yes 2015 due to high blood pressure CVA/TIA: No CHF: Yes CAD: No CABG: No Arrhythmias: No Implanted Devices: No PVD: No Amputations: No Blood Clotting disorders: No DVT/PE: No Pt on Anticoagulation: No Additional cardiac testing? ECG CXR Where was the test performed? [facility] - will have more cardiac testing on 11/04/2022 [facility] History: Abdominal Aortic Aneurysm: No Abdominal [...] Information for Kidney, Kidney/Pancreas, andPancreas Transplant Candidates [id number] was reviewed with the patient via telephone call. Confirmed Salbador Justin's interest in pursuing a kidney transplant evaluation at [facility]. The patient verbalized understanding of the information and was given the opportunity to ask questions which were answered to Salbador Justin's satisfaction. Patient agrees to proceed with the transplant evaluation and consents to HIV testing. documented in this encounter Plan of Treatment Not on file documented as of this encounter Visit Diagnoses Not on filedocumented in this encounter Care Teams Advisor To Command In Combat Relationship Specialty Start Date End Date None Reported, Pcp PCP - General Family Medicine 07/28/22 02/03/23 documented as of this encounter
--- OUTSIDE RECORDS SUMMARY | 2023-05-09 15:57 | XMS_ITS | Encounter Summary ---
Author Name Unknown Organization [facility] Address [address] [place] [address] Care Team Providers Care Manager Drug Name Role Phone None Reported, Pcp Primary Care Provider Unavail able Reason for Visit * Reason Comments Chest Pain Vomiting Encounter Details Date Type Department Care Team (Late st Contact Info) Description 10/19/2022 3:40 AM CDT - 10/20/2022 3:22 PM CDT Emergency [facility], [facility], Fourth Floor [address] [place] [address] [phone] Josselin Balderas M.D., M.S. [address] [place] [address] [phone] Johnnie Castillo M.D. [address] [place] [phone] Pain Chest (Primary Dx); Dyspnea; Failure Renal [...] No address on file Discharge Provider Team: [facility] Internal Medicine ([facility]) [facility] Medicine 7 ([facility]) Primary Care Provider Phone Number: [...] via left AVF, STEMI (diagnosed 2016 in [place]), epilepsy(?) who presents to the emergency department [...] evaluated Salbador Justin today and provided counseling [id number] at bedside. I personally spent a total [...] SUBJECTIVE Social work coordinated discharge transportation with [employer] [phone] for a 2:30 pm room meat pickler time. OBJECTIVE Patient to discharge home. ASSESSMENT [...] next dialysis session will be in the [facility] unit on 10/22/2022. Discharge [...] staffed with Dr. Angelia Skelton MD, Nephrology data processing consultant. For questions or concerns, please contact Nephrology A ELECTRODE TURNER AND FINISHER/PA pager ([phone]). * Isiah Shankar, Pharm.D., R.Ph. - 10/19/2022 [...] VTE prophylaxis: Heparin SUBQ Isiah Shankar PharmD, [facility] * Isiah Shankar, Pharm.D., R.Ph. - 10/19/2022 8:21 AM CDT Images from the original note were not included. Admission Medication History Note Prior to Admission Medications Med List Status: Pharmacy Complete Set By: Isiah Shankar, Pharm.D., R.Ph. at 10/19/2022 8:13 AM Status Comment 10/19/2022 8:13 AM Compared to [facility] outpatient pharmacy filling records Taking? Last Dose [...] M.D., Ph.D. - 10/19/2022 5:29 AM CDT [facility] Medicine 7 ([facility]) Admission Note SUBJECTIVE CHIEF COMPLAINT / REASON FOR VISIT Chest pain HISTORY OF PRESENT ILLNESS Salbador Justin is a 37 y.o. male with h/o CHF with preserved EF due to HTN, ESRD due to HTN on HD via left AVF, STEMI (diagnosed 2016 in [place]), epilepsy(?) not on medications who presents with [...] Fellow, Division of Gastroenterology and Hepatology Pager [phone] 10/19/2022 documented in this encounter Consult Notes [...] Friday, , and Friday schedule in the [facility] dialysis unit. His last dialysis session was [...] surface antigen was negative on 10/08/2022. Mr. Jusitn is dialyzing today for 4 hours on [...] staffed with Dr. Angelia Skelton MD, Nephrology data processing consultant. For questions or concerns, please contact Nephrology A ELECTRODE TURNER AND FINISHER/PA pager ([phone]). Associated attestation - Angelia Skelton M.D. - [...] via left AVF, STEMI (diagnosed 2016 in [place]), epilepsy(?) who presents to the emergency department [...] Antigen Scrn, S (10/20/2022 8:23 AM CDT) [facility] HBs Antigen Scrn, S Negative Negative 10/21/2022 1:40 PM CDT [facility] Blood (Blood, Venous) 10/20/2022 8:23 AM CDT 10/21/2022 7:21 AM CDT Antonieta Blanchard APRN.N.P., M.S.N. LAB MICROBIOLOGY - BLOOD ORDERABLES [facility] [address] [place] [address] [facility] [address] [place] [address] * HCV Ab w/Reflex to HCV PCR, Serum (10/20/2022 8:23 AM CDT) [facility] HCV Ab, S Negative Negative 10/21/2022 1:57 PM CDT [facility] Comment:Bksuhr-sv-mvuljo rat io is <1.00. Blood (Blood, Venous) 10/20/2022 8:23 AM CDT 10/21/2022 7:21 AM CDT Sameer Huggins APRN, C.N.P., M.S.N. LAB MICROBIOLOGY - BLOOD ORDERABLES Performing Organization Address [facility] Co de Phone Number [facility] [address] [place] [address] [place] [address] * HBs Antibody Scrn, Serum (10/20/2022 8:23 AM CDT) [facility] HBs Antibody Scrn, S CANCELED 04/07/2023 11:32 AM BANK APPRAISER [facility] Comment: REVISED RESULTS This result was cancelled. Report is cancelled due to a vendor reagent quality issue. Retesting of a new specimen is recommended if clinically indicated. ----PREVIOUSLY REPORTED ---- Positive Patient is considered to be immune to infection with HBV., Flagged as: Normal (Reported 10/21/2022 13:38) HBs Antibody, Quantitative, S CANCELED mIU/mL 04/07/2023 11:33 AM BANK [facility] Comment: REVISED RESULTS ----PREVIOUSLY REPORTED ---- 17.1, Flagged as: N/A (Reported 10/21/2022 13:38) Blood (Blood, Venous) 10/20/2022 8:23 AM CDT 10/21/2022 7:35 AM CDT Sameer Huggins APRN, C.N.P., M.S.N. LAB MICROBIOLOGY - BLOOD ORDERABLES Performing Organization Address [facility] Co de Phone Number [facility] [address] [place] [address] [facility] [address] [place] [address] * HBc Total Ab Scrn, S (10/20/2022 8:23 AM CDT) [facility] Total Ab Scrn, S Negative Negative 10/21/2022 1:31 PM CDT [facility] Blood (Blood, Venous) 10/20/2022 8:23 AM CDT 10/21/2022 7:35 AM CDT Antonieta Blanchard APRN.N.PJuan C, M.S.N. LAB MICROBIOLOGY - BLOOD ORDERABLES Performing Organization Address City/[facility]/ZIP Co de Phone Number [facility] [address] [place] [address] [facility] [address] [place] [address] * Magnesium (10/20/2022 6:34 AM CDT) Pathologist [facility] Magnesium, S 2.0 1.7 - 2.3 mg/dL 10/20/2022 8:02 AM CDT [facility] Blood (Blood, Venous) 10/20/2022 6:34 AM CDT 10/20/2022 7:31 AM CDT Chan Casanova APRN, C.N.P., D.N.P. LA B BLOOD ADD-ON Performing Organization Address City/[facility]/ZIP Co de Phone Number [facility] [address] [place], [place] [phone] [place] [address] [facility] [address] [place] [address] * (ABNORMAL) Renal Function Panel (10/20/2022 6:34 [...] APRN, C.N.P., D.N.P. LA B BLOOD ADD-ON [facility] [address] [place] [address], [facility] [address] [place] [address] * (ABNORMAL) Troponin T, 2h/6h, 5th Gen [...] AM CDT 10/19/2022 7:02 AM CDT Narrative [facility] - 10/19/2022 7:29 AM CDT Specimen Information: Specimen ID: [id number] Specimen Type: Blood Specimen Collection Start Date: 10/19/2022 ??6:40 AM Specimen Received Date: 10/19/2022 ??7:02 AM Specimen ID: [id number] Specimen Type: Blood Marcos Garcia M.D. LAB BLOOD TRO PONIN [facility] [address] [facility] 200 [place] [address] * Sedimentation Rate (10/19/2022 4:48 AM CDT) Sedimentation Rate, B 2 2 - 12 mm/h 10/19/2022 5:58 AM CDT D[facility] Blood (Blood, Venous) 10/19/2022 4:48 AM CDT 10/19/2022 4:57 AM CDT Marcos Garcia M.D. LAB BLOOD ADD -ON [facility] [address] [place] [address] * CRP (C-Reactive Protein) (10/19/2022 4:48 AM CDT) C-Reactive Protein (CRP), S 3.5 <5.0 mg/L 10/19/2022 5:24 AM CDT [facility] Blood (Blood, Venous) 10/19/2022 4:48 AM CDT 10/19/2022 5:08 AM CDT Marcos Garcia M.D. LAB BLOOD ADD -ON [facility] [address] [place] [address], [place] [facility] [address] [place] [address] * DX Chest AP or PA and [...] M.S.N. LAB BLOOD ADD-ON Performing Organization Address City/[facility] Co de Phone Number [facility] 200 [place] [address], [facility] 200 [place] [address] * Phosphorus Inorganic (10/19/2022 4:46 AM CDT) Pathologist [facility] Phosphorus (Inorganic), S 3.4 2.5 - 4.5 mg/dL 10/19/2022 9:09 AM CDT DT Blood (Blood, Venous) 10/19/2022 4:46 AM CDT 10/19/2022 8:53 AM CDT Kanchan Blanchard APRNNRashida., M.S.N. LAB BLOOD ADD-ON Performing Organization Address [facility] Co de Phone Number [facility] 200 [place] [address], [facility] 200 [place] [address] * (ABNORMAL) Troponin T, Baseline, 5th gen (10/19/2022 4:25 AM CDT) Pathologist [facility] Troponin T, Baseline, 5th gen 78(H) <=15 ng/L 10/19/2022 4:50 AM CDT [facility] Blood (Blood, Venous) 10/19/2022 4:25 AM CDT 10/19/2022 4:30 AM CDT Marcos Garcia M.D. LAB BLOOD TRO PONIN [facility] 200 [place] [address], [facility] 200 [place] [address] * (ABNORMAL) NT-Pro B-Type Natriuretic Peptide (BNP) (10/19/2022 4:25 AM CDT) NT-Pro BNP 6551(H) <79 pg/mL 10/19/2022 4:[address] [facility] Comment: NT-proBNP values less than 300 [...] LAB BLOOD ADD -ON Performing Organization Address City/[facility]/ZIP Co de Phone Number [facility] 200 [place] [address], [facility] 200 [place] [address] * (ABNORMAL) Basic Metabolic Panel (10/19/2022 4:25 AM CDT) Pathologist [facility] Potassium, P 5.2 3.6 - 5.2 mmol/L [...] Marcos Garcia M.D. LAB BLOOD ADD -ON [facility] [place] [address], [facility] 200 [place] [address] * (ABNORMAL) CBC with Differential, Blood (10/19/2022 [...] Marcos Garcia M.D. [place] [address], [place] [address] * ECG 12 Lead (10/19/2022 3:56 AM CDT) Ventricular Rate ECG/Min 114 BPM MUSE [place] Interval 144 ms MUSE QRSD Interval 88 ms MUSE QT Interval 336 ms MUSE QTC Interval 463 ms MUSE P [place] 50 degrees MUSE R [place] 68 degrees MUSE T Wave [place] 50 degrees MUSE 10/19/2022 3:56 AM CDT [...] older documented in this encounter Care Teams Manager Drug Relationship Specialty Start Date End Date None Reported, Pcp PCP - General Family Medicine 07/28/22 02/03/23 documented as of this encounter
--- OUTSIDE RECORDS SUMMARY | 2023-05-09 15:57 | XMS_ITS | Encounter Summary ---
Author Name Unknown Organization [facility] Address [address] [place] [address] Care Team Providers Care Regulatory Analyst Name Role Phone None Reported, Pcp Primary Care Provider Unavail able Encounter Details Date Type Department Care Team (Late st Contact Info) Description 10/15/2022 Orders Only Division of Nephrology and Hypertension, [facility], in [place], [place] [address] [place] [address] Drew Mo, HALLE, C.N.P., M.S.N. [address] [place] [address] Social History Tobacco Use Types Packs/Day Years [...] on filedocumented in this encounter Care Teams Regulatory Analyst Relationship Specialty Start Date End Date None Reported, Pcp PCP - General Family Medicine 07/28/22 02/03/23 documented as of this encounter
--- OUTSIDE RECORDS SUMMARY | 2023-05-09 15:57 | XMS_ITS | Encounter Summary ---
Author Name Unknown Organization [facility] Address [address] [place] [address] Care Team Providers Care Senior Genetic Counselor Name Role Phone None Reported, Pcp Primary Care Provider Unavail able Encounter Details Date Type Department Care Team (Late st Contact Info) Description 10/08/2022 Orders Only Division of Nephrology and Hypertension in [place], [place] [address] [place] [address] Mimi Springer M.D. [address] [place] [phone] Social History Tobacco Use Types Packs/Day Years [...] on filedocumented in this encounter Care Teams Senior Genetic Counselor Relationship Specialty Start Date End Date None Reported, Pcp PCP - General Family Medicine 07/28/22 02/03/23 documented as of this encounter
--- OUTSIDE RECORDS SUMMARY | 2023-05-09 15:57 | XMS_ITS | Encounter Summary ---
Author Name Unknown Organization [facility] Address [address] [place] [address] Care Team Providers Care Training Program Assistant Name Role Phone None Reported, Pcp Primary Care Provider Unavail able Encounter Details Date Type Department Care Team (Latest Contact Info) Description 10/16/2022 Clinical Communication Maco ferreira [facility] for Trans[facility] and Clinical Regeneration in [place], [place] [address] [place] [phone] Teresita Calix M.D. [address] [place] [address] Social History Tobacco Use Types Packs/Day Years [...] on filedocumented in this encounter Care Teams Training Program Assistant Relationship Specialty Start Date End Date None Reported, Pcp PCP - General Family Medicine 07/28/22 02/03/23 documented as of this encounter
--- OUTSIDE RECORDS SUMMARY | 2023-05-09 15:58 | XMS_ITS | Encounter Summary ---
Author Name Unknown Organization [facility] Address [address] [place] [address] Care Team Providers Care Monument Stonecutter Name Role Phone Unavailable Primary Care Provider Unavailabl e Encounter Details Date Type Department Care Team (Late st Contact Info) Description 07/18/2022 Orders Only Division of Nephrology and Hypertension in [place], [place] [address] [place] [address] Concetta Mejía M.D., Ph.D. [address] [place] [address] Social History Tobacco Use Types Packs/Day Years [...]
--- OUTSIDE RECORDS SUMMARY | 2023-05-09 15:58 | XMS_ITS | Encounter Summary ---
Author Name Unknown Organization [facility] Address [address] [place] [address] Care Team Providers Care Boning Room Worker Name Role Phone None Reported, Pcp Primary Care Provider Unavail able Reason for Visit * Reason Comments Chest Pain Pain With Breathing Encounter Details Date Type Department Care Team (Late st Contact Info) Description 09/22/2022 9:00 PM CDT - 09/23/2022 1:03 AM CDT Emergency [facility] Emergency Department [address] [place] [phone] Mike Luz M.D., M.B.A. [address] [place] [address] [phone] Carlos Brown M.D., M.S. [address] [place] [phone] Pain Chest (Primary Dx); Shortness Of Breath [...] Care Everywhere. * Nonspecific Chest Pain Adult (Singaporean) documented in this encounter Medications at Time [...] to go to the below address in [facility]. OBJECTIVE Emergency Department Social work was consulted to assist with transportation back to request of [address] [facility]. Social work arranged transportation with [email or web address] (phone: [phone]). ASSESSMENT / PLAN ASSESSMENT Transport resources were explored and arranged to assist with the patient's needs. The patient appears to have insight into their needs at this time. PLAN 1. [employer] (phone: [phone]) to provide return transportation to patient's requested dropoff. 2. Please contact social work if further supportive or dismissal needs arise. Cait Galeana, M.S.W. 09/23/2022 documented in this encounter ED Notes * Carlos Brown M.D., M.S. - 09/23/2022 12:44 AM CDT Care of patient transferred to vt by Dr. Luz. The patient was signed [...] the resident. Mike Luz M.D., M.B.A. 09/26/22 [id number] * Juana Sanon R.N., JOSE - 09/22/2022 9:00 PM CDT Patient with history of dialysis presents with uncotrolled chest pain. Fentanyl and Versed given CONDUCTOR SYMPHONIC ORCHESTRA. Juana Sanon R.N., JOSE 09/22/222100 documented in [...] PM CDT 09/22/2022 11:55 PM CDT Narrative [facility] - 09/23/2022 2:38 PM CDT Specimen Information: Specimen ID: [id number] Specimen Type: Blood Specimen Collection Start Date: 09/22/2022 11:43 PM Specimen Received Date: 09/22/2022 11:55 PM Specimen ID: [id number] Specimen Type: Blood Specimen Collection Start Date: 09/23/2022 ??2:38 PM Specimen Received Date: 09/23/2022 ??2:38 PM Mike Luz M.D., M.B.A. LAB BLOOD TR OPONIN [facility] [address] [place] [address], [facility] [address] [place] [address] * DX Chest AP or PA and [...] (BNP) (09/22/2022 9:21 PM CDT) NT-Pro BNP 48753(H) <79 pg/mL 09/22/2022 9:59 PM CDT [facility] Comment: NT-proBNP values less than 300 pg/mL [...] Luz M.D., M.B.A. LAB BLOOD AD D-ON [facility] [address] [place] [address], [facility] [address] [place] [address] * (ABNORMAL) Troponin T, Baseline, 5th gen (09/22/2022 9:21 PM CDT) Troponin T, Baseline, 5th gen 114(H) <=15 ng/L 09/22/2022 9:50 PM CDT [facility] Comment:Consider acute myoca rdial injury Blood (Blood, Venous) 09/22/2022 9:21 PM CDT 09/22/2022 9:26 PM CDT Mike Luz M.D., M.B.A. LAB BLOOD TR OPONIN [facility] [address] [place] [address], [facility] [address] [place] [address] * (ABNORMAL) Basic Metabolic Panel (09/22/2022 9:21 [...] Luz M.D., M.B.A. LAB BLOOD AD D-ON [facility] [address] [place] [address], [facility] STMA [facility] [address] [place] [address] * (ABNORMAL) CBC with Differential, Blood (09/22/2022 [...] LAB BLOOD AD D-ON Performing Organization Address [facility] de Phone Number [facility] [address] [place] [address], [facility] [address] [place] [address] * ECG 12 Lead (09/22/2022 9:15 PM CDT) Ventricular Rate ECG/Min 108 BPM MUSE [place] Interval 142 ms MUSE QRSD Interval 90 ms MUSE QT Interval 376 ms MUSE QTC Interval 503 ms MUSE P [place] 48 degrees MUSE R [place] 86 degrees MUSE T Wave [place] 50 degrees MUSE 09/22/2022 9:15 PM CDT [...] M.B.A. ECG ORDERABL ES Performing Organization Address [facility] Co de Phone Number MUSE NA documented [...] 2301 (New Bag - Provider: Jesusita Cardenas R.N.)1712 (Stopped - Provider: Jasmin Wilson R.N. - [...] doses 2254 (Given - Provider: Jesusita Cardenas R.N.)5342 (Given - Provider: Jasmin Wilson R.N.) documented in this encounter Care Teams Boning Room Worker Relationship Specialty Start Date End Date None Reported, Pcp PCP - General Family Medicine 07/28/22 02/03/23 documented as of this encounter
--- OUTSIDE RECORDS SUMMARY | 2023-05-09 15:58 | XMS_ITS | Encounter Summary ---
Author Name Unknown Organization [facility] Address [address] [place] [address] Care Team Providers Care Billing Specialist Name Role Phone None Reported, Pcp Primary Care Provider Unavail able Encounter Details Date Type Department Care Team (Late st Contact Info) Description 09/24/2022 Clinical Communication Department of Radiology in [place], [place] [address] [phone] [place] [address] [address] Social History Tobacco Use Types Packs/Day Years [...] on filedocumented in this encounter Care Teams Billing Specialist Relationship Specialty Start Date End Date None Reported, Pcp PCP - General Family Medicine 07/28/22 02/03/23 documented as of this encounter
--- OUTSIDE RECORDS SUMMARY | 2023-05-09 15:58 | XMS_ITS | Encounter Summary ---
Author Name Unknown Organization [facility] Address [address] [place] [address] Care Team Providers Care Ramp Jockey Name Role Phone None Reported, Pcp Primary Care Provider Unavail able Encounter Details Date Type Department Care Team (Late st Contact Info) Description 09/12/2022 Orders Only Division of Nephrology and Hypertension, [facility], in [place], [place] [address] [place] [address] Drew Mo, HALLE, C.N.P., M.S.N. [address] [place] [address] Social History Tobacco Use Types Packs/Day Years [...] on filedocumented in this encounter Care Teams Ramp Jockey Relationship Specialty Start Date End Date None Reported, Pcp PCP - General Family Medicine 07/28/22 02/03/23 documented as of this encounter
--- OUTSIDE RECORDS SUMMARY | 2023-05-09 15:58 | XMS_ITS | Encounter Summary ---
Author Name Unknown Organization [facility] Address [address] [place] [address] Care Team Providers Care Field Operations Farm Manager Name Role Phone None Reported, Pcp Primary Care Provider Unavail able Reason for Visit * Reason Comments Chest Pain Encounter Details Date Type Department Care Team (Late st Contact Info) Description 10/08/2022 8:32 AM CDT - 10/08/2022 7:31 PM CDT Emergency [facility] [address] [place] [phone] Haresh Conroy PJuan CAJuan C-C. [address] [place] [phone] Pain Chest Atypical (Primary Dx); Shortness Of [...] Care Everywhere. * Nonspecific Chest Pain Adult (Occ[place]) documented in this encounter Medications at Time [...] are 1. Patient will be dialyzed in [place] and after dialysis will be re-evaluated by [...] TO CARDIOLOGY CARDIOLOGY CONSULT NOTE ED Requesting Line Fixer: Haresh Conroy PA-C Cardiology Collaborating Line Fixer: Dr. Madison MD CHIEF COMPLAINT/REASON FOR VISIT Chest Pain HISTORY OF PRESENT ILLNESS Mr. Justin is a 37 y.o. male who is being evaluated in the ED for chest pain that started abruptly at 0200 this morning. 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 He states while he was [...] cardiac MRI Please page Regina Rosales - [phone] for any questions. Regina Rosales APRN, C.N.P. 10/08/22 documented in this encounter ED Notes * Carla Schroeder R.N. - 10/08/2022 9:30 AM CDT Pt arrives to [place] [address] via EMS from dialysis with complaints of [...] no mass, no Che-Acosta's sign and no Tonawanda's sign. There is no abdominal tenderness. There [...] are 1. Patient will be dialyzed in [facility] after dialysis will be re-evaluated by Cardiology [...] every day language. Patient be admitted to [place] for dialysis, bedside ultrasound and plan/disposition be pending Cardiology recommendations. [place] handoff was completed with provider and center [...] has an attitude and we do not municipal court judge anyone. My job is to provide great [...] DOPPLER COLOR (10/08/2022 2:51 PM CDT) Pathologist [facility] Ejection Fraction 68 MC CV EIMS LV [...] Documents. Regina Rosales APRN, C.N.P. CV ECHO [place] OCEDURES * HBs Antigen Scrn, S (10/08/2022 2:27 PM CDT) [facility] HBs Antigen Scrn, S Negative Negative 10/08/2022 10:00 PM CDT [facility] Blood (Blood, Venous) 10/08/2022 2:27 PM CDT 10/08/2022 5:13 PM CDT Mimi Springer M.D. LAB MICROBIOL OGY - BLOOD ORDERABLES Performing Organization Address City/[facility]/ZIP Co de Phone Number [place] [id number] [place] [address] [place] [address] * HCV Ab w/Reflex to HCV PCR, Serum (10/08/2022 2:27 PM CDT) [facility] HCV Ab, S Negative Negative 10/08/2022 10:17 PM CDT [facility] Comment:Vgbvow-et-kxkygi rat io is <1.00. Blood (Blood, Venous) 10/08/2022 2:27 PM CDT 10/08/2022 5:13 PM CDT Mimi Springer M.D. LAB MICROBIOL OGY - BLOOD ORDERABLES [facility] [address] [place] [address] [place] [address] * HBs Antibody Scrn, Serum (10/08/2022 2:27 PM CDT) Pathologist [facility] HBs Antibody Scrn, S CANCELED 04/08/2023 11:59 AM DRAG OUT MAN [facility] Comment: REVISED RESULTS This result was cancelled. Report is cancelled due to a vendor reagent quality issue. Retesting of a new specimen is recommended if clinically indicated. ----PREVIOUSLY REPORTED ---- Positive Patient is considered to be immune to infection with HBV., Flagged as: Normal (Reported 10/08/2022 22:31) HBs Antibody, Quantitative, S CANCELED mIU/mL 04/08/2023 11:59 AM DRAG OUT MAN [facility] Comment: REVISED RESULTS ----PREVIOUSLY REPORTED ---- 14.6, Flagged as: N/A (Reported 10/08/2022 22:31) Blood (Blood, Venous) 10/08/2022 2:27 PM CDT 10/08/2022 5:13 PM CDT Mimi Springer M.D. LAB MICROBIOL OGY - BLOOD ORDERABLES Performing Organization Address City/[facility]/ZIP Co de Phone Number [facility] [address] [place] [address] [facility] [address] [place] [address] * HBc Total Ab Scrn, S (10/08/2022 2:27 PM CDT) [facility] HBc Total Ab Scrn, S Negative Negative 10/08/2022 10:28 PM CDT [facility] Blood (Blood, Venous) 10/08/2022 2:27 PM CDT 10/08/2022 5:13 PM CDT Mimi Springer M.D. LAB MICROBIOL OGY - BLOOD ORDERABLES [facility] [address] [place] [address] [facility] [address] [place] [address] * CRP (C-Reactive Protein) (10/08/2022 2:27 PM CDT) Pathologist [facility] C-Reactive Protein (CRP), S <3.0 <5.0 mg/L 10/08/2022 3:18 PM CDT D[facility] Blood (Blood, Venous) 10/08/2022 2:27 PM CDT 10/08/2022 2:57 PM CDT Haresh Conroy P.A.-C. LAB BLOOD ADD-ON [facility] [address] [place] [address], [facility] [address] [place] [address] * (ABNORMAL) Troponin T, 2h/6h, 5th Gen (10/08/2022 11:01 AM CDT) Pathologist [facility] Troponin T, 2 hr, 5th gen 91(H) [...] AM CDT 10/08/2022 11:05 AM CDT Narrative [facility] - 10/08/2022 11:26 AM CDT Specimen Information: Specimen ID: [id number] Specimen Type: Blood Specimen Collection Start Date: 10/08/2022 11:01 AM Specimen Received Date: 10/08/2022 11:05 AM Specimen ID: [id number] Specimen Type: Blood Specimen Collection Start Date: 10/08/2022 11:26 AM Specimen Received Date: 10/08/2022 11:26 AM Haresh Conroy P.A.-C. LAB BLOOD TROPON IN Performing Organization Address [facility] Co de Phone Number [facility] [address] [place] [address], [facility] [address] [place] [address] * ECG 12 Lead (10/08/2022 10:57 AM CDT) Ventricular Rate ECG/Min 104 BPM MUSE [place] Interval 142 ms MUSE QRSD Interval 98 ms MUSE QT Interval 364 ms MUSE QTC Interval 478 ms MUSE P [place] 50 degrees MUSE R [place] 59 degrees MUSE T Wave [place] 62 degrees MUSE 10/08/2022 10:5 7 AM [...] Conroy P.A.-C. ECG ORDERABLES Performing Organization Address [facility] Co de Phone Number MUSE NA [...] the basal and mid-cavitary ventricular septum (to [id number] mm). While findings may be seen in [...] Anatomical Region Laterality Modality Head, Neuroradiology RST [facility] , [facility], Neuror[facility]iology [facility] N/A Computed Tomography, Compute d Tomography 10/08/2022 [...] BLOOD NON AD D-ON Performing Organization Address City/[facility] Co de Phone Number [facility] [address] [place] [address], [facility] STMA [facility] [address] [place] [address] * (ABNORMAL) Magnesium (10/08/2022 9:01 AM CDT) Magnesium, S 2.4(H) 1.7 - 2.3 mg/dL 10/08/2022 10:09 AM CDT DTL Blood (Blood, Venous) 10/08/2022 9:01 AM CDT 10/08/2022 9:44 AM CDT Haresh Conroy P.A.-C. LAB BLOOD ADD-ON Performing Organization Address [facility] Co de Phone Number [facility] [address] [place] [address], [facility] [address] [place] [address] * Prothrombin Time (PT) (10/08/2022 9:01 AM [...] P.A.-C. LAB BLOOD ADD-ON Performing Organization Address City/[facility]/ZIP Co de Phone Number [facility] [address] [place] [address], [facility] [address] [place] [address] * (ABNORMAL) Troponin T, Baseline, 5th gen (10/08/2022 9:01 AM CDT) Troponin T, Baseline, 5th gen 93(H) <=15 ng/L 10/08/2022 10:48 AM CDT DTL Blood (Blood, Venous) 10/08/2022 9:01 AM CDT 10/08/2022 9:07 AM CDT Haresh Conroy P.A.-C. LAB BLOOD TROPON IN Performing Organization Address [facility] Co de Phone Number [facility] [address] [place], [place] [phone] [place] [address] [address] [place] [address] * Lipase (10/08/2022 9:01 AM CDT) Lipase, S 52 13 - 60 U/L 10/08/2022 10:09 AM CDT DTL Blood (Blood, Venous) 10/08/2022 9:01 AM CDT 10/08/2022 9:44 AM CDT Haresh Conroy P.A.-C. LAB BLOOD ADD-ON Performing Organization Address [facility] Co de Phone Number [facility] [address] [place], [place] [phone] [place] [address] 200 [place] [address] * Hepatic Function Panel (10/08/2022 9:01 AM [...] CDT Haresh Conroy P.A.-C. LAB BLOOD ADD-ON [address] [address], [facility] [place] [address] * (ABNORMAL) Basic Metabolic Panel (10/08/2022 9:01 [...] P.A.-C. LAB BLOOD ADD-ON Performing Organization Address City/State/[facility] [place] [address], [facility] [place] [address] * Blood Gas without Coox, Venous (10/08/2022 9:01 AM CDT) [facility] pO2, Venous 67 Not applicable mm Hg [...] Conroy P.A.-C. LAB BLOOD NON AD D-ON [facility] [address] [place] [address], [facility] STMA [facility] [address] [place] [address] * (ABNORMAL) CBC with Differential, Blood (10/08/2022 [...] CDT Haresh Conroy P.A.-C. LAB BLOOD ADD-ON [facility] [address] [place] [address], [facility] [address] [place] [address] * ECG 12 Lead (10/08/2022 8:47 AM CDT) Ventricular Rate ECG/Min 103 BPM MUSE [place] Interval 138 ms MUSE QRSD Interval 90 ms MUSE QT Interval 366 ms MUSE QTC Interval 479 ms MUSE P [place] 55 degrees MUSE R [place] 98 degrees MUSE T Wave [place] 56 degrees MUSE 10/08/2022 8:47 AM CDT [...] obtained. documented in this encounter Care Teams Field Operations Farm Manager Relationship Specialty Start Date End Date None Reported, Pcp PCP - General Family Medicine 07/28/22 02/03/23 documented as of this encounter
--- OUTSIDE RECORDS SUMMARY | 2023-05-09 15:58 | XMS_ITS | Encounter Summary ---
Author Name Unknown Organization [facility] Address [address] [place] [address] Care Team Providers Care Audio Narrator Name Role Phone None Reported, Pcp Primary Care Provider Unavail able Encounter Details Date Type Department Care Team (Late st Contact Info) Description 08/13/2022 Orders Only Division of Nephrology and Hypertension in [place], [place] [address] [place] [address] Concetta Meíja M.D., Ph.D. [address] [place] [address] Social History Tobacco Use Types Packs/Day Years [...] filedocumented in this encounter Care Teams Audio Narrator Relationship Specialty Start Date End Date None Reported, Pcp PCP - General Family Medicine 07/28/22 02/03/23 documented as of this encounter
--- OUTSIDE RECORDS SUMMARY | 2023-05-09 15:58 | XMS_ITS | Encounter Summary ---
Author Name Unknown Organization [facility] Address [address] [place] [address] Care Team Providers Care Plisse Machine Operator Helper Name Role Phone None Reported, Pcp Primary Care Provider Unavail able Encounter Details Date Type Department Care Team (Late st Contact Info) Description 09/03/2022 Orders Only Division of Nephrology and Hypertension in [place], [place] [address] [place] [address] Concetta Mejía M.D., Ph.D. [address] [place] [address] Social History Tobacco Use Types Packs/Day Years [...] on filedocumented in this encounter Care Teams Plisse Machine Operator Helper Relationship Specialty Start Date End Date None Reported, Pcp PCP - General Family Medicine 07/28/22 02/03/23 documented as of this encounter
--- OUTSIDE RECORDS SUMMARY | 2023-05-09 15:58 | XMS_ITS | Encounter Summary ---
Author Name Unknown Organization [facility] Address [address] [place] [address] Care Team Providers Care Police Cadet Name Role Phone None Reported, Pcp Primary Care Provider Unavail able Encounter Details Date Type Department Care Team (Late st Contact Info) Description 09/05/2022 Orders Only Division of Nephrology and Hypertension in [place], [place] [address] [place] [address] Concetta Mejía M.D., Ph.D. [address] [place] [address] Social History Tobacco Use Types Packs/Day Years [...] on filedocumented in this encounter Care Teams Police Cadet Relationship Specialty Start Date End Date None Reported, Pcp PCP - General Family Medicine 07/28/22 02/03/23 documented as of this encounter
--- OUTSIDE RECORDS SUMMARY | 2023-05-09 15:58 | XMS_ITS | Encounter Summary ---
Author Name Unknown Organization [facility] Address [address] [place] [address] Care Team Providers Care Retail Branch Manager Name Role Phone Unavailable Primary Care Provider Unavailabl e Encounter Details Date Type Department Care Team (Late st Contact Info) Description 07/18/2022 Orders Only Division of Nephrology and Hypertension in [place], [place] [address] [place] [address] Concetta Mejía M.D., Ph.D. [address] [place] [address] Social History Tobacco Use Types Packs/Day Years [...]
--- OUTSIDE RECORDS SUMMARY | 2023-05-09 15:58 | XMS_ITS | Encounter Summary ---
Author Name Unknown Organization [facility] Address [address] [place] [address] Care Team Providers Care Pairer Substandard Name Role Phone None Reported, Pcp Primary Care Provider Unavail able Reason for Visit * Reason Comments Hypertension Encounter Details Date Type Department Care Team (Latest Contact Info) Description 07/28/2022 7:20 PM CDT - 07/30/2022 3:00 PM CDT Hospital Encounter [facility], [facility], [facility], Second floor [address] [place] [address] [phone] Diane Fregoso M.D., M.B.A. [address] [place] [phone] Mikey Orta M.D. [address] [place] [address] [phone] Joaquin Luz P.A.-C., M.S. [address] [place] [address] [place] [address] Failure Renal End Stage (HCC) [...] CDT DISCHARGE SUMMARY BRIEF OVERVIEW Discharge Hospital: [facility] Discharge Provider: Mikey Orta M.D. Discharge Provider Team: [facility] Internal Medicine ([facility]) [facility] Medicine ([facility]) Primary Care Providers: None Reported, Pcp [...] renal disease [facility]. He also had [...] care was discussed with Dr. Mikey Orta [phone]), HIM vocational rehabilitation consultant. I saw and evaluated Salbador Justin today and provided counseling vbmb-fi-xano at bedside. I personally spent a total of greater than 30 minutes in counseling and coordination of care as described above to facilitate the hospital discharge. Discharge instructions were provided to the patient and caregiver(s). documented in this encounter Discharge Instructions * Discharge Instructions* Jazlyn Vyas - 07/29/2022 7:15 AM CDT You were discharged from the [facility] Medicine 11 ([facility]) Service. Please identify this service name [...] to). He provided the correct address as [address] [place] [address]. It is a hotel and he will be getting a new room saha once he gets there. His financial needs were addressed. He confirmed he is comfortable with the plan and did not have any questions or concerns with the plan. Social work updated care management assistants and they reached out to [employer] to change the address for the ride. OBJECTIVE Patient is currently hospitalized on Dom 2D. They are medically stable. ASSESSMENT / PLAN ASSESSMENT Patient appeared to be coping appropriately at this time. He has adequate insight into his needs and is planning for discharge. PLAN Discharge at 07/30 at 3:30pm by [employer] ([phone]). Paid for by OTHER. Patient must be [...] disease secondary to hypertensive nephropathy, maintained on [facility] hemodialysis since 07/2017 # Admitted on 07/28/2022 [...] he will present tohis outpatient dialysis unit, [facility]. -- Was on spironolactone in the past, unsure why this was stopped. Recommend starting torsemide 100mg daily. Dismissal Recommendations: -- Hemodialysis on Friday, , Friday schedule; (outpatient unit is [facility] dialysis unit) -- We will set a [...] diet; 1.5 L/day fluid restriction -- Epogen 17600 units IV 3 times per week with [...] or concerns, please contact the Nephrology C RECONCILIATION MANAGER/PA, pager #[phone]. * Joaquin Luz PTevin.-C., M.S. - 07/29/2022 4:11 PM CDT [facility] Medicine 11 ([facility]) Progress Note SUBJECTIVE Mr. Justin is [...] / PLAN Mr. Justin is hospitalized on [facility] Medicine 11 ([facility]) for evaluation and management of Excess [...] care was discussed with Dr. Mikey Orta [phone]), HIM vocational rehabilitation consultant. I personally spent a total of [...] SCDs, ambulation Medication Reconciliation: Med history per [facility] - New: AKL triple cream, lidocaine patch [...] and lidocaine patch. Janelle Berumen Pharm.D., R.Ph. [phone] * Dede Berumen Pharm.D., R.Ph. - 07/29/2022 [...] M.B., Ph.D. - 07/28/2022 10:04 PM CDT [facility] Medicine 11 ([facility]) Admission Note SUBJECTIVE CHIEF COMPLAINT Missed dialysis HISTORY OF PRESENT ILLNESS Salbador Justin is a 36 y.o. male who presents to emergency department with a chief complaint of missed dialysis. 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 His dialysis schedule is Friday, and Friday. He is doing dialysis at [facility]. The dialysis yesterday was canceled [...] reviewed the labs, ECG, and xray from [facility]. ASSESSMENT / PLAN #1 End-stage renal disease [...] start amlodipine and minoxidil tomorrow morning - staff counsel on medication compliance Diet: Adult Diet Regular [...] patient has discharged. Transportation has been requested, bottle caser asked administrator social welfare Miranda Mckeon to soraya the ride as no MA rides are available today. Ride is set up for 07/30/22 at 3:30pm via [employer] [phone], please have the patient at the Main [...] a later time, when available. * Heaven Celmens APRN, C.N.P., D.N.P. - 07/29/2022 8:14 AM [...] [place]. [place] [address]. Mr. Justin normally dialyzes on Friday, , and Friday at [facility] dialysis unit. He normally dialyzes for 4 hours with a 138 sodium, 2 potassium, 2.5 calcium, and 36 bicarbonate dialysate at a temperature of 36.5 degrees Celsius. His estimated dry weight is 68 kg. His dialysis access is a left AV fistula. He uses a Nipro Temnos dialyzer. Medications administered during dialysis include: Epogen 40143 units IV 3 times per week. Heparin [...] disease secondary to hypertensive nephropathy, maintained on [facility] hemodialysis since 07/2017 # Admitted on 07/28/2022 [...] be tomorrow in the outpatient setting at [facility] dialysis unit. However, if he remains in the hospital today, we will plan for dialysis here tomorrow morning. Additional Recommendations: -- Hemodialysis on Friday, , Friday schedule; (outpatient unit is [facility] dialysis unit) -- If remains hospitalized tonight, [...] diet; 1.5 L/day fluid restriction -- Epogen 12858 units IV 3 times per week with [...] has been staffed with Dr. Osorio, Nephrology vocational rehabilitation consultant. For questions or concerns, please contact Nephrology C RECONCILIATION MANAGER/PA pager, [phone]. ADDENDUM ([id number]): Mr. Justin completed 4 hours of hemodialysis [...] 5 years who comes in today from [place] after being unable to get dialysis yesterday. They had plan to reschedule for tomorrow but he had an appointment in [place] he needed to get to and was [...] Baseline, 5th gen(!): 72 2021 NT-Pro BNP(!): 50237 2022 BUN (Blood Urea Nitrogen), P(!): 67 [...] has been on dialysis for 5 years [place], [place]. [place] that he was not able [...] has been on dialysis for 5 years [place], [place]. [place] that he was not able [...] Blood Pressure Britni Tompkins M.D. Resident 07/28/22 7469 documented in this encounter Miscellaneous Notes * [...] Sadie Sadler R.N., BSN, CCDS Clinical Documentation Community Organizer Query created by: Sadie Sadler R.N., BSN, CCDS 08/02/2022 06:12 AM CDT </LCI> * Hospital Course - Joaquin Luz P.A.-C., M.S. - 07/28/2022 10:17 PM CDT Mr. Justin is a 36-year-old male with end-stage renal disease on hemod[facility]. He also had [...] Antigen Scrn, S (07/29/2022 9:39 AM CDT) [facility] HBs Antigen Scrn, S Negative Negative 07/29/2022 1:59 PM CDT [facility] Blood (Blood, Venous) 07/29/2022 9:39 AM CDT 07/29/2022 12:20 PM CDT Heaven Clemens APRN, C.N.P., D.N.P. L AB MICROBIOLOGY - BLOOD ORDERABLES [facility] [address] [place] [address] [facility] [address] [place] [address] * HBs Antibody Scrn, S (07/29/2022 9:39 AM CDT) [facility] HBs Antibody Scrn, S Positive 07/29/2022 2:16 PM CDT [facility] Comment: Patient is considered to be immune to infection with HBV. ----REFERENCE VALUE---- Unvaccinated: Negative Vaccinated: Positive HBs Antibody, Quantitative, S 12.7 mIU/mL 07/29/2022 2:16 PM CDT [facility] Comment: ----REFERENCE VALUE---- Unvaccinated: <5.0 Vaccinated: >=12.0 Blood (Blood, Venous) 07/29/2022 9:39 AM CDT 07/29/2022 12:20 PM CDT Heaven Clemens APRN, C.N.P., D.N.P. L AB MICROBIOLOGY - BLOOD ORDERABLES [facility] [address] [place] [address] [facility] [address] [place] [address] * (ABNORMAL) Basic Metabolic Panel (07/29/2022 4:43 AM CDT) [facility] Potassium, S 4.9 3.6 - 5.2 mmol/L [...] CDT Lisa Hardy, Ph.D. LAB BLOOD ADD-ON [facility] [address] [place] [address], [facility] [address] [place] [address] * (ABNORMAL) Troponin T, 2H/6H, 5th Gen [...] PM CDT 07/28/2022 10:11 PM CDT Narrative [facility] - 07/28/2022 10:45 PM CDT Specimen Information: Specimen ID: [id number] Specimen Type: Blood Specimen Collection Start Date: 07/28/2022 10:05 PM Specimen Received Date: 07/28/2022 10:11 PM Specimen ID: [id number] Specimen Type: Blood Diane Fregoso M.D., M.B.A. LAB BLOOD TR OPONIN [facility] [address] [place] [address], [facility] [address] [place] [address] * DX Chest AP or PA and [...] CDT) Ventricular Rate ECG/Min 93 BPM MUSE CO Interval 142 ms MUSE QRSD Interval 92 ms MUSE QT Interval 374 ms MUSE QTC Interval 465 ms MUSE P [place] 65 degrees MUSE R [place] 106 degrees MUSE T Wave [place] 45 degrees MUSE 07/28/2022 7:43 PM CDT [...] M.B.A. ECG ORDERABL ES Performing Organization Address [facility] de Phone Number MUSE NA * Prothrombin [...] LAB BLOOD AD D-ON Performing Organization Address [facility] de Phone Number [facility] [address] [facility] [address] [place] [address] * (ABNORMAL) Troponin T, Baseline, 5th gen (07/28/2022 7:43 PM CDT) Pathologist [facility] Troponin T, Baseline, 5th gen 72(H) <=15 ng/L 07/28/2022 8:12 PM CDT [facility] Blood (Blood, Venous) 07/28/2022 7:43 PM CDT 07/28/2022 7:48 PM CDT Diane Fregoso M.D., M.B.A. LAB BLOOD TR OPONIN Performing Organization Address City/[facility]/ZIP Co de Phone Number [facility] [address] 200 [place] [address] * (ABNORMAL) NT-Pro B-Type Natriuretic Peptide (BNP) (07/28/2022 7:43 PM CDT) NT-Pro BNP 55168(H) <79 pg/mL 07/28/2022 8:16 PM CDT [facility] [...] LAB BLOOD AD D-ON Performing Organization Address [facility] Co de Phone Number [facility] 200 [place], [place] [phone] [place] [address] 200 [place] [address] * (ABNORMAL) Basic Metabolic Panel (07/28/2022 7:43 [...] Fregoso M.D., M.B.A. LAB BLOOD AD D-ON [place] [address] [place] [address], [facility] 200 [place] [address] * (ABNORMAL) CBC with Differential, Blood (07/28/2022 [...] Fregoso M.D., M.B.A. [place] [address], [place] [address] documented in this encounter Visit Diagnoses Diagnosis [...] of acetaminophen in 24 hours all sources rstaonteamyxl-arpysssi-hxtg osman in Lipoderm 2%-5%-5% cream 1 g [...] Elba Carey R.N. - Reason: Patient/family refused) exspywplcnksx-sxliiidr-b idocaine in Lipoderm 2%-5%-5% cream 1 g [...] Loading dose 0951 (Given - Provider: Verito Nicolas RJuan CN.) heparin (porcine) 1,000 unit/mL injection [...] R.N.) documented in this encounter Care Teams Pairer Substandard Relationship Specialty Start Date End Date None Reported, Pcp PCP - General Family Medicine 07/28/22 02/03/23 documented as of this encounter
--- OUTSIDE RECORDS SUMMARY | 2023-05-09 15:58 | XMS_ITS | Encounter Summary ---
Author Name Unknown Organization [facility] Address [address] [place] [address] Care Team Providers Care Health And Social Care Teacher Name Role Phone None Reported, Pcp Primary Care Provider Unavail able Reason for Visit * Outpatient (Routine) - Authorized Specialty Diagnoses / Procedures Referred By Mel t Referred To Contact Diagnoses Pain Chest Procedures NM Cardiac Perfusion Rest and Stress SPECT Drew Mo APRN C.N.P., M.S.N. [address] [place] [phone] [facility] Referral ID Status Reason Start Date Expiration Date V isits Requested Visits Authorized [id number] Authorized 07/11/2022 07/11/2023 6 6 Encounter Details Date Type Department Care Team (Latest Contact Info) Description 07/29/2022 11:59 PM CDT Hospital Encounter Department of Radiology in [place], [place] [address] [place] [phone] Drew Mo APRN, C.N.P., M.S.N. [address] [place] [phone] Canceled (Patient: Hospitalized / ill) Discharge Disposition: [...] on filedocumented in this encounter Care Teams Health And Social Care Teacher Relationship Specialty Start Date End Date None Reported, Pcp PCP - General Family Medicine 07/28/22 02/03/23 documented as of this encounter
--- OUTSIDE RECORDS SUMMARY | 2023-05-09 15:59 | XMS_ITS | Encounter Summary ---
Author Name Unknown Organization [facility] Address [address] [place] [address] Care Team Providers Care Septic Tank Service Technician Name Role Phone Unavailable Primary Care Provider Unavailabl e Encounter Details Date Type Department Care Team (Late st Contact Info) Description 06/27/2022 Orders Only Division of Nephrology and Hypertension, [facility], in [place], [place] [address] [place] [address] Drew Mo, HALLE, C.N.P., M.S.N. [address] [place] [address] Social History Tobacco Use Types Packs/Day Years [...]
--- OUTSIDE RECORDS SUMMARY | 2023-05-09 15:59 | XMS_ITS ---
Author Name Unknown Organization [facility] Address [address] [place] [address] Care Team Providers Care Senior Designer Name Role Phone Elsewhere, Pcp Primary Care Provider Unavailabl e Transplant Episode Kidney Candidate [facility] ([place], [place]) - [facility] Referred on 06/28/2022 Marked as Ineligible on 09/06/2022 Reason: Unable to Contact Patient Kidney CoordinatorRoseline Humphrey R.N. Fax: N/A Email: [email or web address] Scores Score Value Updated Exceptions/Reas ons CPRA Not available EPTS (Calc) 11 05/09/2023 Care Team Name Role Phone Fax Email Roseline Humphrey R.N. Kidney Coordinator [phone] N/A [email or web address] Pre-Transplant Referred: 06/28/2022 Dialysis History Dialysis History Start End Type Comments Center 2017 Hemo [facility] D[facility] Information Center Phone Fax Address [facility] [phone] [place] [address]
--- OUTSIDE RECORDS SUMMARY | 2023-05-09 15:59 | XMS_ITS ---
Author Name Unknown Organization [facility] Address [address] [place] [address] Care Team Providers Care Franchise Sales Manager Name Role Phone Elsewhere, Pcp Primary Care Provider Unavailabl e Transplant Episode Kidney Candidate [facility] ([place], [place]) - [facility] Referred on 10/10/2022 Marked as Active on 10/10/2022 Kidney CoordinatorRoseline Humphrey R.N. Fax: N/A Email: [email or web address] Scores Score Value Updated Exceptions/Reas ons CPRA Not available EPTS (Calc) 11 05/09/2023 Care Team Name Role Phone Fax Email Roseline Humphrey R.N. Kidney Coordinator [phone] N/A [email or web address] Concetta Floyd Referring Provider [phone] N/A [email or web address] Pre-Transplant Referred: 10/10/2022 Dialysis History Dialysis History Start End Type Comments Center 2017 Hemo [facility] Dialysis Center Information Center Phone Fax Address [facility] [phone] [place] [address]
--- OUTSIDE RECORDS SUMMARY | 2023-05-09 15:59 | XMS_ITS | Encounter Summary ---
Author Name Unknown Organization [facility] Address [address] [place] [address] Care Team Providers Care Inpatient Coder Name Role Phone Unavailable Primary Care Provider Unavailabl e Encounter Details Date Type Department Care Team (Late st Contact Info) Description 07/06/2022 Orders Only Division of Nephrology and Hypertension, [facility], in [place], [place] [address] [place] [address] Drew Mo, HALLE, C.N.P., M.S.N. [address] [place] [address] Social History Tobacco Use Types Packs/Day Years [...]
--- OUTSIDE RECORDS SUMMARY | 2023-05-09 15:59 | XMS_ITS | Encounter Summary ---
Author Name Unknown Organization [facility] Address [address] [place] [address] Care Team Providers Care Cooker Chip Name Role Phone Unavailable Primary Care Provider Unavailabl e Encounter Details Date Type Department Care Team (Latest Contact Info) Description 06/28/2022 Clinical Communication Maco Espinoza [facility] for Transplantation and Clinical Regeneration in [place], [place] [address] [place] [address] Fanta Nicolas APRN, C.N.P., D.N.P. [address] [place] [address] Social History Tobacco Use Types Packs/Day Years [...]
--- OUTSIDE RECORDS SUMMARY | 2023-05-09 15:59 | XMS_ITS | Clinical Summary ---
Author Name Unknown Organization [facility] Address [place], [place] [address] Care Team Providers Care Program Director/Traffic Director Name Role Phone Pcp, No Primary Care [...] Comments Blood Pressure 175/96 03/20/2022 7:24 PM PAINT PREPARER Pulse 98 03/20/2022 7:24 PM PAINT PREPARER Temperature 37.2 ??C (99 ??F) 03/20/2022 7:24 PM PAINT PREPARER Respiratory Rate 16 03/20/2022 7:24 PM PAINT PREPARER Oxygen Saturation 99% 03/20/2022 7:24 PM PAINT PREPARER Inhaled Oxygen Concentration - - Weight 70.5 kg (155 lb 8 oz) 03/20/2022 7:24 PM PAINT PREPARER Height 165.1 cm (5' 5) 03/20/2022 7:24 PM PAINT PREPARER Body Mass Index 25.88 03/20/2022 7:24 PM PAINT PREPARER Plan of Treatment Not on file Care Teams Program Director/Traffic Director Relationship Specialty Start Date End Date Pcp, No . PCP - General 03/20/22
--- OUTSIDE RECORDS SUMMARY | 2023-05-09 15:59 | XMS_ITS | Encounter Summary ---
Author Name Unknown Organization [facility] Address [address] [place] [address] Care Team Providers Care Marriage Performer Name Role Phone Unavailable Primary Care Provider Unavailabl e Encounter Details Date Type Department Care Team (Late st Contact Info) Description 07/10/2022 Orders Only Division of Nephrology and Hypertension, [facility], in [place], [place] [address] [place] [address] Drew Mo, HALLE, C.N.P., M.S.N. [address] [place] [address] Other Chest Pain (Primary Dx) Social History [...]
--- OUTSIDE RECORDS SUMMARY | 2023-05-09 15:59 | XMS_ITS | Encounter Summary ---
Author Name Unknown Organization [facility] Address [address] [place] [address] Care Team Providers Care Beauty Culture Teacher Name Role Phone Unavailable Primary Care Provider Unavailabl e Encounter Details Date Type Department Care Team (Late st Contact Info) Description 07/11/2022 Orders Only Department of Cardiovascular Diseases in [place], [place] [address] [phone] Dagoberto Rashid, HALLE, C.N.P. [address] [phone] Social History Tobacco Use Types Packs/Day Years [...]
--- OUTSIDE RECORDS SUMMARY | 2023-05-09 15:59 | XMS_ITS | Encounter Summary ---
Author Name Unknown Organization [facility] Address [address] [place] [address] Care Team Providers Care Rn Assessment Name Role Phone None Reported, Pcp Primary Care Provider Unavail able Encounter Details Date Type Department Care Team (Late st Contact Info) Description 07/11/2022 Clinical Communication Department of Cardiovascular Diseases in [place], [place] [address] [place] [phone] Sergei Ibrahim M.D. [address] [place] [address] Social History Tobacco Use Types Packs/Day Years [...] on filedocumented in this encounter Care Teams Rn Assessment Relationship Specialty Start Date End Date None Reported, Pcp PCP - General Family Medicine 07/28/22 02/03/23 documented as of this encounter
== END 2023-05-06 10:53 | disposition home or self-care (01) ==
LOC: AMB 05-09 15:51
PROVIDERS: PCP Internal Medicine; Visit Provider Emergency Medicine
DX: R55 Syncope and collapse (principal)
CPT/HCPCS: A0998

== ENCOUNTER 2023-05-08 14:33 | Outpatient (CLI) | payer MEDICARE, MEDICAID, SELFPAY ==
--- OUTSIDE RECORDS SUMMARY | 2023-05-12 03:44 | XMS_ITS | Encounter Summary ---
Author Name Unknown Organization [place] Address [facility] [place] [address] Care Team Providers Care Reviewer Sales Name Role Phone No Ref-Primary, Physician Primary Care Provider Reason for Referral * Consultation (Urgent: 3-5 Days) - Pending Review Specialty Diagnoses / Procedures Referred By Contac t Referred To Contact Diagnoses Tooth infection Marcus Marquez MD [address] [id number] Referral ID Status Reason Start Date Expiration Date V isits Requested Visits Authorized [id number] Pending Review 07/04/2022 07/04/2023 1 1 Question [...] questions. Please call to schedule your appointment IE SCRATCHER Reason for Visit * Reason Comments Chest Pain * Auth/Cert (Routine) Specialty Diagnoses / Procedures Referred By Contac t Referred To Contact Dialysis Diagnoses Elevated troponin Hypertensive urgency Chest pain, unspecified type Chest pain, unspecified type Elevated troponin Hypertensive urgency Sh Dialysis [address] [id number] Referral ID Status Reason Start Date Expiration Date Visits Re quested Visits Authorized [id number] 1 1 Encounter Details Date Type Department Care Team (Late st Contact Info) Description 07/03/2022 5:31 AM CONNIE SCRATCHER - 07/04/2022 6:30 PM CONNIE SCRATCHER Emergency [place] [address] [facility] [address] [id number] Garth Patel, DO [facility] [address] [place] [phone] Julia Blanchard DO [address] [id number] Marcus Marquez MD [phone] [id number] Tooth infection (Primary Dx); Chest pain, unspecified [...] Coronavirus/COVID-19? No / Unsure 07/03/2022 5:40 AM CONNIE SCRATCHER documented as of this encounter Last Filed Vital Signs Vital Sign Reading Time Taken Comments Blood Pressure 123/68 07/04/2022 3:23 PM CONNIE SCRATCHER Pulse 99 07/04/2022 3:23 PM CONNIE SCRATCHER Temperature 37.1 ??C (98.7 ??F) 07/04/2022 3:23 PM CS T Respiratory Rate 18 07/04/2022 3:23 PM CONNIE SCRATCHER Oxygen Saturation 95% 07/04/2022 3:23 PM CONNIE SCRATCHER Inhaled Oxygen Concentration - - Weight 70.3 kg (155 lb) 07/03/2022 5:47 AM CONNIE SCRATCHER Height 165.1 cm (5' 5) 07/03/2022 5:47 AM CONNIE SCRATCHER Body Mass Index 25.79 07/03/2022 5:47 AM CONNIE SCRATCHER documented in this encounter Discharge Summaries * Marcus Marquez MD - 07/04/2022 10:57 AM CST [facility] Discharge Summary Salbador Justin Date of : [...] Initial presentation as above. Noted last HD TELEVISION AUDIO ENGINEER was 06/27. Trop 100 on admit. Nephrology consultedand pt dialyzed on admit. * On 07/04, symptoms improved with HD. Recent Labs Lab 07/03/22 0749 07/03/22 0551 CTROPT 101* 100* - Continue to treat other issues as noted. ?? ESRD??on HD (//Fri) with missed HD x2. Anion gap metabolic acidosis due to above. Symptomatic hypotension with hemodialysis 07/04. * Usually dialyzes TTS; followed by [facility]. * Initial presentation as above. On admit, noted that last run was 06/27; missed dialysis due to social issues 06/29 and 07/02. Nephrology consulted and underwent HD on admit as above. * On 07/04, pt had a hypotensive episode during dialysis, symptoms improved when BP's increased afterfluid bolus. - Continue outpatient HD TTS. ?? Hypertensive urgency/emergency related to missed HD. [TELEVISION AUDIO ENGINEER: amlodipine 10 mg daily; hydralazine 50 mg [...] in 9-10 range over the past year TELEVISION AUDIO ENGINEER. * Initial presentation as above. Hgb 8 [...] * Noted during his 05/27/2022 admit at [facility]. Underwent imaging and found to have left [...] Narrative EXAM: XR CHEST 2 VIEWS LOCATION: [facility] DATE/TIME: 07/03/2022 6:19 AM INDICATION: Chest [...] paranasal sinuses are clear. QUIQUE WATTERS MD IE SCRATCHER documented in this encounter Medications at Time [...] 1 Assessment/Plan: 1. ESRD -dialysis dependent -TTS [place] [facility] -followed by [facility] -last ran 06/27/22 ?? Outpatient dialysis orders: ?? 4 hours Left AVF TW 69 kg Off last 68.9 kg 3K ?? 2. Anemia -Mircera given 06/22/22 3. Metabolic Bone Disease -calcitriol with dialysis 1.25 mg -CaAc 4. HTN -amlodipine/benazepril/carvedilol/hydralazine/minoxidil/spironolactone -presenting BP elevated at dialysis 5. CP Continue TTS schedule Next 07/05/22 Interval History: Dialysis run parameters reviewed with police cadet at patient bedside. Seen on run Complicated [...] 3* CLAIRE 9.8 G Abdelrahman Rae MD [facility] - Nephrology [phone] IE SCRATCHER * Sergio Kaur RN - 07/04/2022 10:42 [...] to treatment See Adult Hemodialysis flowsheet in Appwapp for further details and post assessment. Machine water alarm in place and functioning. Transducer pods intact and checked every 15min. Pt returned via bed. Chlorine/Chloramine water system checked every 4 hours. Outpatient Dialysis at [facility] ?? Patient repositioned every 2 hours during the treatment. Post treatment report given to Cristhian Ybarra RN regarding 0.7L of fluid removed and last BP of 153/83. ?? Please remove patient dressing on AVF and AVG needle sites 24 hours after dialysis. If leaking occurs please apply a Band-Aid. IE SCRATCHER * Marcus Marquez MD - 07/04/2022 7:20 AM CST [facility] Internal Medicine Hospitalist Progress Note 07/04/2022 I evaluated patient on the above date. Marcus Marquez Jr., MD [phone] (p) Text Page Vocera Assessment & Plan [...] Initial presentation as above. Noted last HD TELEVISION AUDIO ENGINEER was 06/27. Trop 100 on admit. Nephrology consultedand pt dialyzed on admit. * On 07/04, symptoms improved with HD. Recent Labs Lab 07/03/22 0749 07/03/22 0551 CTROPT 101* 100* - Continue to treat other issues as noted. ESRD??on HD (/Fri) with missed HD x2. Anion gap metabolic acidosis due to above. Symptomatic hypotension with hemodialysis 07/04. * Usually dialyzes TTS; followed by [facility]. * Initial presentation as above. On [...] ?? Hypertensive urgency/emergency related to missed HD. [TELEVISION AUDIO ENGINEER: amlodipine 10 mg daily; hydralazine 50 mg [...] in 9-10 range over the past year TELEVISION AUDIO ENGINEER. * Initial presentation as above. Hgb 8 [...] * Noted during his 05/27/2022 admit at [facility]. Underwent imaging and found to have left [...] prochlorperazine, senna-docusate OR senna-docusate, sodium chloride (PF) IE SCRATCHER * Tanja Cody RN - 07/03/2022 5:48 [...] checked every 4 hours. Outpatient Dialysis at [facility] Patient repositioned every 2 hours during the treatment. Post treatment report given to Cristhian John RN regarding 2L of fluid removed, last BP of 180/74, and patient pain rating of 0/10. Please remove patient dressing on AVF and AVG needle sites 24 hours after dialysis. If leaking occurs please apply a Band-Aid. IE SCRATCHER * Kirk Rae MD - 07/03/2022 4:15 PM CST Renal Medicine Second visit Seen on dialysis run Dialysis run parameters reviewed with police cadet at patient bedside. UF 2 liter No access issues Next 07/04/22 Inpatient or outpatient Recent Labs Lab 07/03/22 0551 POTASSIUM 5.1 Kirk. Abdelrahman Rae [facility] [phone] IE SCRATCHER * Patricia John RN - 07/03/2022 12:57 PM CST RECEIVING UNIT ED HANDOFF REVIEW ED Nurse Handoff Report was reviewed by: Patricia John RN on July 03, 2022 at 12:58 PM IE SCRATCHER * Monse Kim - 07/03/2022 10:11 AM CST [facility] SERVICES Progress Note [facility] - ED Referral: Visit for emotional support. I introduced myself and Services. Salbador shared that his situation is exhausting. He said he has friends, and they're aware he's in hospital. I offered a short blessing and invited him to reach out to as desired. Salbador expressed appreciation for his care; visit ended so he could sleep. remains available. Rev Monse Kim Associate Human Service Specialist [facility] Phone Line [phone] [place] (Tuesdays & ) [phone] IE SCRATCHER documented in this encounter H&P Notes * Julia Blanchard DO - 07/03/2022 8:27 AM CST [facility] History and Physical - Hospitalist Service Date of Admission: 07/03/2022 Assessment & Plan Salbador Justin is a 36 year old male admitted on 07/03/2022 with chest pressure after missing 2 days of dialysis Anion gap metabolic acidosis ESRD??on HD (//Fri) Usually compliant with dialysis, last run was 06/27/22. Missed dialysis due to social issues 06/29 and 07/02. 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 K 5.1 Anion gap 22, CO2 19 - telemetry - nephrology consulted - plan dialysis today 07/03 - Monitor BMP daily. ?? HTN urgency BP elevated into the 210s/110s in ED. Improved with dose of IV labetalol in ED to 170s/80s - resumed TELEVISION AUDIO ENGINEER Amlodipine, Hydralazine, Lisinopril, and Minoxidil - PRN [...] sinusitis Noted during his 05/27/22 admit at [facility]. Underwent imaging and found to have left [...] Date: 07/05/2022 Julia Blanchard DO Hospitalist Service [facility] Securely message with Diasome (more info) Text page via [facility] Paging/Directory Chief Complaint Chest pressure History is obtained from the patient, prior record review History of Present Illness Salbador Justin is a 36 year old male who presents with chest pressure after missing 2 dialysis sessions. He last dialyzed in [place] 06/27. He is currently unhoused and living [...] is sharp and radiates to his left quaker. He had this discomfort 05/27/22 admit at [facility] and underwent imaging, discharged with abx. After [...] all the paperwork needed. He is from [place] originally so having trouble obtaining his certificate. [...] Narrative EXAM: XR CHEST 2 VIEWS LOCATION: [facility] DATE/TIME: 07/03/2022 6:19 AM INDICATION: Chest pain. COMPARISON: None. Impression IMPRESSION: Negative chest. IE SCRATCHER documented in this encounter Consult Notes * Kirk Rae MD - 07/03/2022 11:26 AM CSTAssociated Order(s): NEPHROLOGY IP CONSULT RENAL CONSULTATION NOTE REFERRING MD: Santo REASON FOR CONSULTATION: ESRD management A/P: 1. ESRD -dialysis dependent -TTS [facility] -followed by [facility] -last ran 06/27/22 Outpatient dialysis orders: 4 hours Left AVF TW 69 kg Off last 68.9 kg 3K 2. Anemia -Mircera given 06/22/22 3. Metabolic Bone Disease -calcitriol with dialysis 1.25 mg -CaA 4. HTN -amlodipine/benazepril/carvedilol/hydralazine/minoxidil/spironolactone -presenting BP elevated at dialysis 5. CP Dialysis today Next run 07/04/22 to resume TTS Reviewed with [place] dialysis staff HPI: Patient presents with chest pain. He is known to have end-stage renal disease. Dialysis dependent. Currently dialyzing TTS at [facility]. Last ran there dated 06/27/22. [...] on housed Living in a motel in [place]. PHYSICAL EXAM: Vitals were reviewed Patient Vitals [...] 0551 HGB 8.0* DIAGNOSTICS: Reviewed Maryellen Rae [facility] consultants [phone] IE SCRATCHER documented in this encounter ED Notes * Sundeep Mosley RN - 07/03/2022 7:30 AM CST [facility] ED Nurse Handoff Report ED Chief complaint: [...] increased pain[facility] Focused Assessment: Chest discomfort Treatments and/or interventions provided: iv, medications imaging labs Patient's response to treatments and/or interventions: tolerated To be done/followed up on inpatient unit: na Does this patient have any cognitive concerns?: none Activity level - Baseline/Home: Independent Activity Level - Current: Independent Patient's Preferred language: Indonesian Senior Warehouse Clerk Needed?: No Isolation: None Infection: Not Applicable [...] performed were . ED NURSE PHONE NUMBER: [phone] IE SCRATCHER * Narcisa Carey RN - 07/03/2022 5:42 AM CST Patient aletha from [place], patient reports he goes to dialysis saturdays, [...] Rhythm ST Cognitive/Neuro/Behavioral WDL Cognitive/Neuro/Behavioral WDL WDL IE SCRATCHER * Garth Patel DO - 07/03/2022 5:31 [...] Pressure Ventricular Rate 111 Atrial Rate 111 FL Interval 144 QRS Duration 90 QT 344 QTc 467 P [place] 63 R AXIS 59 T [place] 76 Interpretation ECG Sinus tachycardia Possible Left atrial enlargement Borderline ECG When compared with ECG of 27-MAY-2022 15:20, Premature ventricular complexes are no longer Present Confirmed by GENERATED REPORT, COMPUTER ([id number]), videotape editor Efraín Puente ([id number]) on 07/03/2022 5:49:00 AM Imaging: XR Chest [...] benefit from emergent dialysis. I consulted the appeals nurse reports they will be able to dialyze [...] to me. Garth Patel DO 07/03/22 0745 IE SCRATCHER documented in this encounter Miscellaneous Notes * [...] of discharge instructions. AVS given to patient. IE SCRATCHER * Utilization Review - Estrella Schroeder MD - 07/04/2022 12:01 PM CONNIE SCRATCHER Admission Status; Secondary Review Determination Under the [...] section 70.4. Sincerely, ESTRELLA SCHROEDER MD System Draft Roller PickerInsurance Agent [facility]. IE SCRATCHER * Plan of Care - Dede Magana, IOANA - 07/04/2022 11:32 AM CONNIE SCRATCHER Goal Outcome Evaluation: Summary: chest pain, missed hemodialysis x2 DATE & TIME: 07/04/22 9546-0998 Cognitive Concerns/ Orientation : A&Ox4 BEHAVIOR & [...] Overall Patient Progress: improvingOverall Patient Progress: improving IE SCRATCHER * Plan of Care - Faustino Morrison RN - 07/04/2022 7:00 AM CST Goal Outcome Evaluation: Summary: chest pain, missed hemodialysis x2 DATE & TIME: 07/03/22-07/04/22 5983-0567 Cognitive Concerns/ Orientation : A&Ox4 BEHAVIOR & [...] , no c/o of nausea, no emesis- IE SCRATCHER * Plan of Care - Juhi Pro RN - 07/03/2022 10:21 PM CST Summary: chest pain, missed hemodialysis x2 DATE & TIME: 07/03 0868-5098 Cognitive Concerns/ Orientation : A&Ox4 BEHAVIOR & [...] SKIN: WDL ex pt c/o systemic itchiness. vault service mechanic pagearmand- ordered atarax, 25mg given. TESTS/PROCEDURES: dialysis [...] home. Will continue to monitor these symptoms. IE SCRATCHER * Plan of Care - Patricia John [...] be leaving for dialysis at approx 1415 IE SCRATCHER * Pharmacy-Admission Medication History - Heaven Miguel [...] Medication Sig Last Dose Taking? Auth Provider Ordnance Artificer End Date amLODIPine (NORVASC) 10 MG tablet [...] the time of update(s) Heaven Miguel PharmD IE SCRATCHER documented in this encounter Plan of Treatment [...] Diagnosis Comments PHOSPHORUS Routine 07/04/2022 11:45 AM CONNIE SCRATCHER MAGNESIUM Routine 07/04/2022 11:45 AM CONNIE SCRATCHER BASIC METABOLIC PANEL Routine 07/04/2022 11:45 AM CONNIE SCRATCHER CBC WITH PLATELETS Routine 07/04/2022 10 :[address] FACIAL BONES WITH CONTRAST STAT 07/03/2022 10:30 AM CONNIE SCRATCHER EXTRA PURPLE TOP TUBE STAT 07/03/2022 7:50 AM CONNIE SCRATCHER EXTRA GREEN TOP (LITHIUM HEPARIN) TUBE STAT 07/03/2022 7:50 AM CONNIE SCRATCHER TRANSFERRIN Add-On 07/03/2022 7:50 AM CONNIE SCRATCHER IRON AND IRON BINDING CAPACITY Add-On 07/03/2022 7:50 AM CONNIE SCRATCHER FERRITIN Add-On 07/03/2022 7:50 AM CONNIE SCRATCHER TROPONIN T, HIGH SENSITIVITY STAT 07/03/2022 7:49 AM CONNIE SCRATCHER XR CHEST 2 VIEWS STAT 07/03/2022 6:19 AM CONNIE SCRATCHER EXTRA TUBE STAT 07/03/2022 5:52 AM CONNIE SCRATCHER EXTRA BLUE TOP TUBE STAT 07/03/2022 5 :52 AM CONNIE SCRATCHER EXTRA TUBE STAT 07/03/2022 5:51 AM CONNIE SCRATCHER EXTRA RED TOP TUBE STAT 07/03/2022 5: 51 AM CONNIE SCRATCHER CBC WITH PLATELETS AND DIFFERENTIAL STAT 07/03/2022 5:51 AM CONNIE SCRATCHER TROPONIN T, HIGH SENSITIVITY STAT 07/03/2022 5:51 AM CONNIE SCRATCHER CBC WITH PLATELETS & DIFFERENTIAL STAT 07/03/2022 5:51 AM CONNIE SCRATCHER BASIC METABOLIC PANEL STAT 07/03/2022 5:51 AM CONNIE SCRATCHER EKG 12-LEAD, TRACING ONLY STAT 07/03/2022 5:38 AM CONNIE SCRATCHER documented in this encounter Results * Phosphorus (07/04/2022 11:45 AM CONNIE SCRATCHER) Phosphorus 2.7 2.5 - 4.5 mg/dL 07/04/2022 12:33 PM CONNIE SCRATCHER LABORATORY Blood STRUCTURE OF LEFT HAND / Unknown Venipuncture / Unknown 07/04/2022 11:45 AM CONNIE SCRATCHER 07/04/2022 12:08 PM CONNIE SCRATCHER Julia Blanchard DO LAB - BLOOD ORDERABLES LABORATORY [facility] [address], [address] [place] [address], [facility] [phone] * (ABNORMAL) Magnesium (07/04/2022 11:45 AM CONNIE SCRATCHER) Magnesium 1.6(L) 1.7 - 2.3 mg/dL 07/04/2022 12:33 PM CONNIE SCRATCHER LABORATORY Blood STRUCTURE OF LEFT HAND / Unknown Venipuncture / Unknown 07/04/2022 11:45 AM CONNIE SCRATCHER 07/04/2022 12:08 PM CONNIE SCRATCHER Julia Blanchard DO LAB - BLOOD ORDERABLES LABORATORY [facility] [address], [address] [place] [address], [facility] [phone] * (ABNORMAL) Basic metabolic panel (07/04/2022 11:45 AM CONNIE SCRATCHER) Sodium 138 136 - 145 mmol/L 07/04/2022 12:33 PM CONNIE SCRATCHER LABORATORY Potassium 4.2 3.4 - 5.3 mmol/L 07/04/2022 12:33 PM CONNIE SCRATCHER LABORATORY Chloride 98 98 - 107 mmol/L 07/04/2022 12:33 PM [facility] Carbon Dioxide (CO2) 25 22 - 29 mmol/L 07/04/2022 12:33 PM [facility] Anion Gap 15 7 - 15 mmol/L 07/04/2022 12:33 PM [facility] Urea Nitrogen 20.7(H) 6.0 - 20.0 mg/dL 07/04/2022 12:33 PM [facility] Creatinine 7.51(H) 0.67 - 1.17 mg/dL 07/04/2022 12:33 PM [facility] Calcium 9.0 8.6 - 10.0 mg/dL 07/04/2022 12:33 PM [facility] Glucose 80 70 - 99 mg/dL 07/04/2022 12:33 PM [facility] GFR Estimate 9(L) >60 mL/min/1.7 3m2 07/04/2022 12:33 PM [facility] Comment:eGFR calculated usin 2020 CKD-EPI equation. Blood STRUCTURE OF LEFT HAND / Unknown Venipuncture / Unknown 07/04/2022 11:45 AM CONNIE SCRATCHER 07/04/2022 12:08 PM [facility] Julia Blanchard DO LAB - BLOOD ORDERABLES LABORATORY [facility] [address], [address] [place] [address], [facility] [phone] * (ABNORMAL) CBC with platelets (07/04/2022 10:11 AM [facility]) [facility] WBC Count 8.7 4.0 - 11.0 10e3/uL 07/04/2022 10:15 AM [facility] RBC Count 2.76(L) 4.40 - 5.90 10e6/uL 07/04/2022 10:15 AM [facility] Hemoglobin 7.8(L) 13.3 - 17.7 g/dL 07/04/2022 10:15 AM [facility] Hematocrit 23.6(L) 40.0 - 53.0 % 07/04/2022 10:15 AM [facility] MCV 86 78 - 100 fL 07/04/2022 10:15 AM CONNIE SCRATCHER LABORATORY MCH 28.3 26.5 - 33.0 pg 07/04/2022 10:15 AM CONNIE SCRATCHER LABORATORY MCHC 33.1 31.5 - 36.5 g/dL 07/04/2022 10:15 AM CONNIE SCRATCHER LABORATORY RDW 13.3 10.0 - 15.0 % 07/04/2022 10:15 AM CONNIE SCRATCHER LABORATORY Platelet Count 244 150 - 450 10e3/uL 07/04/2022 10:15 AM CONNIE SCRATCHER LABORATORY Blood BLOOD SPECIMEN / Unknown Venipuncture / Unknown 07/04/2022 10:11 AM CONNIE SCRATCHER 07/04/2022 10:13 AM CONNIE SCRATCHER Julia Blanchard DO LAB - BLOOD ORDERABLES LABORATORY [facility] [address], [address] [place] [address], [facility] [phone] * CT Facial Bones with Contrast (07/03/2022 10:30 AM CONNIE SCRATCHER) Anatomical Region Laterality Modality Head, SUBRAD CT NEURO, UMP CT NEURO, RAD CT Computed Tomography Impressions 07/03/2022 10:54 AM CONNIE SCRATCHER IMPRESSION: 1. Left premaxillary soft tissue swelling [...] QUIQUE WATTERS MD Narrative 07/03/2022 10:[address] SCAN OF THE FACE WITH CONTRAST [...] PENG * (ABNORMAL) Ferritin (07/03/2022 7:50 AM CONNIE SCRATCHER) Pathologist [facility] Ferritin 1,553(H) 31 - 409 ng/mL 07/03/2022 1:43 PM CONNIE SCRATCHER U LABORATORY Blood VENOUS LINE / Unknown Venipuncture / Unknown 07/03/2022 7:50 AM CONNIE SCRATCHER 07/03/2022 7:54 AM CONNIE SCRATCHER Julia Blanchard DO LAB - BLOOD ORDERABLES U LABORATORY [facility] [address] [facility], [address] [address], [facility] [phone] * (ABNORMAL) Transferrin (07/03/2022 7:50 AM CONNIE SCRATCHER) [facility] Transferrin 150.0(L) 200.0 - 360.0 mg/dL 07/03/2022 6:52 PM CONNIE SCRATCHER U LABORATORY Blood VENOUS LINE / Unknown Venipuncture / Unknown 07/03/2022 7:50 AM CONNIE SCRATCHER 07/03/2022 7:54 AM CONNIE SCRATCHER Julia Blanchard DO LAB - BLOOD ORDERABLES LABORATORY [facility] [address] [facility], [address] [address], [facility] [phone] * (ABNORMAL) Iron & Iron Binding Capacity (07/03/2022 7:50 AM CONNIE SCRATCHER) [facility] Iron 92 61 - 157 ug/dL 07/03/2022 9:43 AM CONNIE SCRATCHER LABORATORY Iron Binding Capacity 198(L) 240 - 430 ug/dL 07/03/2022 9:43 AM CONNIE SCRATCHER LABORATORY Iron Sat Index 46 15 - 46 % 07/03/2022 9:43 AM CONNIE SCRATCHER LABORATORY Blood VENOUS LINE / Unknown Venipuncture / Unknown 07/03/2022 7:50 AM CONNIE SCRATCHER 07/03/2022 7:54 AM CONNIE SCRATCHER Julia Blanchard LAB - BLOOD ORDERABLES [facility] [address], [address] [place] [address], [place] [phone] * Extra Purple Top Tube (07/03/2022 7:50 AM CONNIE SCRATCHER) Hold Specimen [facility] 07/03/2022 9:02 AM CONNIE SCRATCHER LABORATORY Blood VENOUS LINE / Unknown Venipuncture / Unknown 07/03/2022 7:50 AM CONNIE SCRATCHER 07/03/2022 7:54 AM CONNIE SCRATCHER Garth Easton Jorge LAB - BLOOD ORD ERABLES [facility] [address], [address] [place] [address], [place] [phone] * Extra Green Top ([place] Heparin) Tube (07/03/2022 7:50 AM CONNIE SCRATCHER) Hold Specimen [facility] 07/03/2022 9:02 AM CONNIE SCRATCHER LABORATORY Blood VENOUS LINE / Unknown Venipuncture / Unknown 07/03/2022 7:50 AM CONNIE SCRATCHER 07/03/2022 7:54 AM CONNIE SCRATCHER Garth Patel LAB - BLOOD ORD ERABLES [facility] [address], [address] [place] [address], [place] [phone] * (ABNORMAL) Troponin T, High Sensitivity (07/03/2022 7:49 AM CONNIE SCRATCHER) Troponin T, High Sensitivity 101(HH) <=22 ng/L 07/03/2022 8:40 AM CONNIE SCRATCHER LABORATORY Comment: Either a High Sensitivity Troponin [...] Unknown Venipuncture / Unknown 07/03/2022 7:49 AM CONNIE SCRATCHER 07/03/2022 7:54 AM CONNIE SCRATCHER Garth Patel DO LAB - BLOOD ORD ERABLES LABORATORY [facility] [address], [address] [place] [address], [facility] [phone] * XR Chest 2 Views (07/03/2022 6:19 AM CONNIE SCRATCHER) Anatomical Region Laterality Modality Chest Digital Radiogra phy 07/03/2022 6:19 AM CONNIE SCRATCHER Impressions 07/03/2022 6:22 AM CONNIE SCRATCHER IMPRESSION: Negative chest. Narrative 07/03/2022 6:22 AM CONNIE SCRATCHER EXAM: XR CHEST 2 VIEWS LOCATION: [facility] DATE/TIME: 07/03/2022 6:19 AM INDICATION: Chest pain. COMPARISON: None. Procedure Note Raman Bernard MD - 07/03/2022 EXAM: XR CHEST 2 VIEWS LOCATION: [facility] DATE/TIME: 07/03/2022 6:19 AM INDICATION: Chest pain. COMPARISON: None. IMPRESSION: Negative chest. Garth Patel DO IM DIAGNOSTIC IMAGING ORDERABLES * Extra Blue Top Tube (07/03/2022 5:52 AM CONNIE SCRATCHER) Hold Specimen [facility] 07/03/2022 7:03 AM [facility] LABORATORY Blood BLOOD SPECIMEN / Unknown Venipuncture / Unknown 07/03/2022 5:52 AM CONNIE SCRATCHER 07/03/2022 5:55 AM CONNIE SCRATCHER Garth Patel LAB - BLOOD ORD ERABLES LABORATORY [facility] Lab [address] 1st floor, [address] [place] [address], [facility] [phone] * (ABNORMAL) CBC with platelets and differential (07/03/2022 5:51 AM CONNIE SCRATCHER) Pathologist [facility] WBC Count 10.6 4.0 - 11.0 10e3/uL 07/03/2022 6:07 AM [facility] RBC Count 2.83(L) 4.40 - 5.90 10e6/uL 07/03/2022 6:07 AM [facility] Hemoglobin 8.0(L) 13.3 - 17.7 g/dL 07/03/2022 6:07 AM [facility] Hematocrit 24.3(L) 40.0 - 53.0 % 07/03/2022 6:07 AM [facility] MCV 86 78 - 100 fL 07/03/2022 6:07 AM [facility] MCH 28.3 26.5 - 33.0 pg 07/03/2022 6:07 AM [facility] MCHC 32.9 31.5 - 36.5 g/dL 07/03/2022 6:07 AM [facility] RDW 13.4 10.0 - 15.0 % 07/03/2022 6:07 AM [facility] Platelet Count 288 150 - 450 10e3/uL 07/03/2022 6:07 AM [facility] % Neutrophils 66 % 07/03/2022 6:07 AM [facility] % Lymphocytes 17 % 07/03/2022 6:07 AM [facility] % Monocytes 8 % 07/03/2022 6:07 AM [facility] % Eosinophils 8 % 07/03/2022 6:07 AM [facility] % Basophils 1 % 07/03/2022 6:07 AM [facility] % Immature Granulocytes 0 % 07/03/2022 6:07 AM [facility] NRBCs per 100 WBC 0 <1 /100 023 6:07 AM [facility] Absolute Neutrophils 7.1 1.6 - 8.3 10e3/uL 07/03/2022 6:07 AM [facility] Absolute Lymphocytes 1.8 0.8 - 5.3 10e3/uL 07/03/2022 6:07 AM [facility] Absolute Monocytes 0.8 0.0 - 1.3 10e3/uL 07/03/2022 6:07 AM [facility] Absolute Eosinophils 0.8(H) 0.0 - 0.7 10e3/uL 07/03/2022 6:07 AM [facility] Absolute Basophils 0.1 0.0 - 0.2 10e3/uL 07/03/2022 6:07 AM [facility] Absolute Immature Granulocytes 0.0 <=0.4 10e3/uL 07/03/2022 6:07 AM [facility] Absolute NRBCs 0.0 10e3/uL 07/03/2022 6:07 AM [facility] Blood BLOOD SPECIMEN / Unknown Venipuncture / Unknown 07/03/2022 5:51 AM CONNIE SCRATCHER 07/03/2022 5:55 AM CONNIE SCRATCHER Garth Patel DO LAB - BLOOD ORD ERABLES LABORATORY [facility] [address] 1st floor, [address] [place] [address], [facility] [phone] * Extra Red Top Tube (07/03/2022 5:51 AM CONNIE SCRATCHER) Hold Specimen [facility] 07/03/2022 7:03 AM CONNIE SCRATCHER LABORATORY Blood BLOOD SPECIMEN / Unknown Venipuncture / Unknown 07/03/2022 5:51 AM CONNIE SCRATCHER 07/03/2022 5:55 AM CONNIE SCRATCHER Garth Patel LAB - BLOOD ORD EMILYBLES LABORATORY [facility] Lab [address] 1st floor, [address] [place] [address], [facility] [phone] * (ABNORMAL) Troponin T, High Sensitivity (07/03/2022 5:51 AM CONNIE SCRATCHER) [facility] Troponin T, High Sensitivity 100(HH) <=22 ng/L 07/03/2022 6:31 AM CONNIE SCRATCHER LABORATORY Comment: Either a High Sensitivity Troponin [...] Unknown Venipuncture / Unknown 07/03/2022 5:51 AM CONNIE SCRATCHER 07/03/2022 5:55 AM CONNIE SCRATCHER Garth Patel LAB - BLOOD ORD [facility] LABORATORY [facility] Lab [address] 1st floor, [address] [place] [address], [facility] [phone] * (ABNORMAL) Basic metabolic panel (07/03/2022 5:51 AM CONNIE SCRATCHER) Pathologist [facility] Sodium 141 136 - 145 mmol/L 07/03/2022 6:28 AM [facility] Potassium 5.1 3.4 - 5.3 mmol/L 07/03/2022 6:28 AM [facility] Chloride 100 98 - 107 mmol/L 07/03/2022 6:28 AM [facility] Carbon Dioxide (CO2) 19(L) 22 - 29 mmol/L 07/03/2022 6:28 AM [facility] Anion Gap 22(H) 7 - 15 mmol/L 07/03/2022 6:28 AM [facility] Urea Nitrogen 86.2(H) 6.0 - 20.0 mg/dL 07/03/2022 6:28 AM [facility] Creatinine 21.81(H) 0.67 - 1.17 mg/dL 07/03/2022 6:28 AM [facility] Calcium 9.8 8.6 - 10.0 mg/dL 07/03/2022 6:28 AM [facility] Glucose 109(H) 70 - 99 mg/dL 07/03/2022 6:28 AM [facility] GFR Estimate 3(L) >60 mL/min/1.7 3m2 07/03/2022 6:28 AM [facility] Comment:eGFR calculated us2020 CKD-EPI equation. Blood BLOOD SPECIMEN / Unknown Venipuncture / Unknown 07/03/2022 5:51 AM CONNIE SCRATCHER 07/03/2022 5:55 AM [facility] Garth Patel DO LAB - BLOOD ORD ERABLES LABORATORY [facility] Lab [address] 1st floor, [address] [place] [address], [facility] [phone] * EKG 12-lead, tracing only (07/03/2022 5:38 AM [facility]) Systolic Blood Pressure mmHg RADIOLOGY RESULTS Diastolic Blood Pressure mmHg RADIOLOGY RESULTS Ventricular Rate 111 BPM RAD IOLOGY RESULTS Atrial Rate 111 BPM RADIOLOG Y RESULTS FL Interval 144 ms RADIOLOG Y RESULTS QRS Duration 90 ms RADIOLO GY RESULTS QT 344 ms RADIOLOGY RESULTS QTc 467 ms RADIOLOGY RESULTS P [place] 63 degrees RADIOLOGY RESULTS R AXIS 59 degrees RADIOLOGY RESULTS T [place] 76 degrees RADIOLOGY RESULTS Interpretation ECG Sinus tachycardia Possible Left atrial enlargement Borderline ECG When compared with ECG of 27-MAY-2022 15:20, Premature ventricular complexes are no longer Present Confirmed by GENERATED REPORT, COMPUTER ([id number]), videotape editor Efraín Puente ([id number]) on 07/03/2022 5:49:00 AM RADIOLOGY RESULTS 07/03/2022 5:38 AM CONNIE SCRATCHER 07/03/2022 5:49 AM CONNIE SCRATCHER Concetta Sanders MD ECG ORDERABLES RADIOLOGY RESULTS [...] dialysis, Dialysis $New Bag 07/03/2022 4:17 PM CONNIE SCRATCHER 250 mLs 0.9% sodium chloride BOLUS Hemodialysis Machine, 300 mL, ONCE, On Fri07/03/22 at 1200, For 1 dose, For Dialyzer Prime. (In Dialyzer), Dialysis $New Bag 07/03/2022 4:17 PM CONNIE SCRATCHER 300 mLs 0.9% sodium chloride BOLUS Intravenous, [...] Hold for SBP<110 $Given 07/04/2022 11:06 AM CONNIE SCRATCHER 10 mg $Given 07/03/2022 1:44 PM CONNIE SCRATCHER 10 mg amoxicillin-clavulanate (AUGMENTIN) 500-125 MG per tablet 1 tablet Routine, 1 tablet, Oral, EVERY 24 HOURS SCHEDULED, First dose on Fri07/04/22 at 1200, Give after dialysis on dialysis days., Indications: Tooth infection $Given 07/04/2022 12:32 PM CONNIE SCRATCHER 1 tablet epoetin jasmin-epbx (RETACRIT) injection 4,000 Units 4,000 Units, Intravenous, ONCE IN DIALYSIS/CRRT, On Fri07/03/22 at 1200, For 1 dose, Give during dialysis., Dialysis $Given 07/03/2022 4:18 PM CONNIE SCRATCHER 4,000 Units hydrALAZINE (APRESOLINE) injection 10 mg 10 mg, Intravenous, EVERY 4 HOURS PRN, high blood pressure, give for SBP > 180, Starting on Fri07/03/22 at 0846 hydrALAZINE (APRESOLINE) tablet 50 mg 50 mg, Oral, 2 TIMES DAILY, First dose on Fri07/03/22 at 1245, Hold for SBP<110 $Given 07/04/2022 11:06 AM CONNIE SCRATCHER 50 mg $Given 07/03/2022 7:52 PM CONNIE SCRATCHER 50 mg $Given 07/03/2022 1:44 PM CONNIE SCRATCHER 50 mg HYDROmorphone (DILAUDID) injection 0.4 mg 0.4 mg, Intravenous, EVERY 2 HOURS PRN, severe pain, IF patient cannot take oral opioid OR IF pain not managed with non-pharmacological, non-opioid, or oral opioid interventions if ordered, Starting on Fri07/03/22 at 0915, May use concomitant with non-opioid analgesics. $Given 07/03/2022 6:17 PM CONNIE SCRATCHER 0.4 mg HYDROmorphone (DILAUDID) injection 1 mg 1 mg, Intravenous, ONCE, On Fri07/03/22 at 0650, For 1 dose $Given 07/03/2022 6:53 AM CONNIE SCRATCHER 1 mg HYDROmorphone (DILAUDID) tablet 2 mg 2 mg, Oral, EVERY 4 HOURS PRN, severe pain, IF pain not managed with non-pharmacological and non-opioid interventions, Starting on Fri07/03/22 at 0915, May use concomitant with non-opioid analgesics. $Given 07/04/2022 4:31 PM CONNIE SCRATCHER 2 mg $Given 07/04/2022 8:39 AM CONNIE SCRATCHER 2 mg $Given 07/03/2022 1:47 PM CONNIE SCRATCHER 2 mg HYDROmorphone (PF) (DILAUDID) injection 0.5 mg 0.5 mg, Intravenous, ONCE, On Fri07/03/22 at 0850, For 1 dose $Given 07/03/2022 9:07 AM CONNIE SCRATCHER 0.5 mg hydrOXYzine (ATARAX) tablet 25 mg [...] contact the provider. $Given 07/03/2022 9:13 PM CONNIE SCRATCHER 25 mg iopamidol (ISOVUE-370) solution 75 mL 75 mL, Intravenous, ONCE, On Fri07/03/22 at 1015, For 1 dose $Given 07/03/2022 10:16 AM CONNIE SCRATCHER 75 mLs labetalol (NORMODYNE/TRANDATE) injection 10 mg 10 mg, Intravenous, ONCE, On Fri07/03/22 at 0745, For 1 dose, PROTECT FROM LIGHT. $Given 07/03/2022 7:51 AM CONNIE SCRATCHER 10 mg lisinopril (ZESTRIL) tablet 20 mg 20 mg, Oral, DAILY, First dose on Fri07/03/22 at 1235, Hold for SBP<110 $Given 07/04/2022 11:06 AM CONNIE SCRATCHER 20 mg $Given 07/03/2022 1:44 PM CONNIE SCRATCHER 20 mg magnesium oxide (MAG-OX) tablet 400 mg 400 mg, Oral, ONCE, On Fri07/04/22 at 1500, For 1 dose $Given 07/04/2022 2:43 PM CONNIE SCRATCHER 400 mg minoxidil (LONITEN) tablet 2.5 mg 2.5 mg, Oral, DAILY, First dose on Fri07/04/22 at 0800 $Given 07/04/2022 11:06 AM CONNIE SCRATCHER 2.5 mg naloxone (NARCAN) injection 0.2 mg [...] prochlorperazine (COMPAZINE). Irritant. $Given 07/03/2022 6:46 PM CONNIE SCRATCHER 4 mg $Given 07/03/2022 10:29 AM CONNIE SCRATCHER 4 mg prochlorperazine (COMPAZINE) injection 10 mg [...] IV dormant line $Given 07/04/2022 5:26 AM CONNIE SCRATCHER 3 mLs sodium chloride (PF) 0.9% PF flush 60 mL 60 mL, Intravenous, ONCE, On Fri07/03/22 at 1015, For 1 dose $Given 07/03/2022 10:16 AM CONNIE SCRATCHER 60 mLs documented in this encounter Active and Recently Administered Medications Times are shown in CONNIE SCRATCHER. Scheduled Medication Order 07/02/2022 07/03/2022 07/04/2022 0.9% [...] Hold for SBP<110 1344 ($Given - Provider: Patricai John RN) 1106 ($Given - Provider: Dede [...] Dede Magana RN)1631 ($Given - Provider: Paul Coopre RN) hydrOXYzine (ATARAX) tablet 25 mg (CANCELED)(Linked [...] mg dose is ineffective, contact the provider. 9227 ($Given - Provider: Juhi Pro, IOANA) lidocaine [...] stools. documented in this encounter Care Teams Reviewer Sales Relationship Specialty Start Date End Date No Ref-Primary, Physician PCP - General 04/14/22 documented as of this encounter
--- OUTSIDE RECORDS SUMMARY | 2023-05-12 03:44 | XMS_ITS | Encounter Summary ---
Author Name Unknown Organization [facility] Address [address] [place] [address] Care Team Providers Care Supervisor Hydrochloric Area Name Role Phone No Ref-Primary, Physician Primary Care Provider Reason for Visit * Reason Comments Abdominal Pain +headache +nausea/vo miting, dialysis patient Encounter Details Date Type Department Care Team (Late st Contact Info) Description 09/14/2022 5:05 AM CDT - 09/14/2022 9:34 AM CDT Emergency [facility] Emergency Dept [address] [place] [address] [phone] Senthil Stevenson MD [facility] [address] [place], [place] [phone] Rachid Wood MD [facility] [address] [place] [address] ESRD on hemodialysis (H); Essential hypertension; Abdominal [...] directed by your provider today. Before using [id number] medications, ask your provider and make sure [...] Care Everywhere. * Earache, No Infection (Adult) ([place]) documented in this encounter Medications at Time [...] CDT EXAM: CT TEMPORAL W/O CONTRAST LOCATION: [facility] DATE/TIME: 09/14/2022 6:48 AM CDT INDICATION: [...] 09/14/2022 EXAM: CT TEMPORAL W/O CONTRAST LOCATION: [facility] DATE/TIME: 09/14/2022 6:48 AM CDT INDICATION: [...] CT ABDOMEN AND PELVIS WITHOUT CONTRAST LOCATION: [facility] DATE/TIME: 09/14/2022, 6:47 AM CDT INDICATION: [...] CT ABDOMEN AND PELVIS WITHOUT CONTRAST LOCATION: [facility] DATE/TIME: 09/14/2022, 6:47 AM CDT INDICATION: [...] for abdominal aortic aneurysm. Senthil Stevenson MD [facility] CT ORDERABLES * (ABNORMAL) CBC with platelets [...] Stevenson MD LAB - BLOOD ORDERABL ES [facility] Acute Care Lab [address] Lab (1st floor, no room number) [place] [address], [facility] [phone] * Lipase (09/14/2022 5:48 AM CDT) Lipase 50 13 - 60 U/L 09/14/2022 6:18 AM CDT [facility]AT[facility] Blood BLOOD SPECIMEN / Unknown Venipuncture / Unknown 09/14/2022 5:48 AM CDT 09/14/2022 5:53 AM CDT Senthil Stevenson MD LAB - BLOOD ORDERABL ES Performing Organization Address [facility]/ZIP Co de Phone Number [facility] Care Lab [address] Lab (1st floor, no room number) [place] [address], [facility] [phone] * (ABNORMAL) Lactic acid whole blood (09/14/2022 5:48 AM CDT) Lactic Acid 0.5(L) 0.7 - 2.0 mmol/L 09/14/2022 5:57 AM CDT [facility] Blood BLOOD SPECIMEN / Unknown Venipuncture / Unknown 09/14/2022 5:48 AM CDT 09/14/2022 5:52 AM CDT Senthil Stevenson MD LAB - BLOOD ORDERABL ES Performing Organization Address [facility]/ZIP Co de Phone Number [facility] Acute Care Lab [address] Lab (1st floor, no room number) [place] [address], [facility] [phone] * (ABNORMAL) Comprehensive metabolic panel (09/14/2022 5:48 [...] MD LAB - BLOOD ORDERABL ES LABORATORY [facility] Acute Care Lab [address] [facility] Lab (1st floor, no room number) [place] [address], [facility] [phone] documented in this encounter Visit Diagnoses Diagnosis [...] analgesic side effects. Hold while on IV ALGOLOGY TEACHER or with regular IV opioid dosing. $Given [...] analgesic side effects. Hold while on IV ALGOLOGY TEACHER or with regular IV opioid dosing. 0551 ($Given - Provi krystina: Alexia Wilkinson RN)0708 ($Given - Provider: Sherlyn Shepard RN) ondansetron (ZOFRAN) injection 4 mg (COMPLETED) 4 mg, Intravenous, ONCE PRN, nausea, vomiting, Administer over 2-5 Minutes, Starting on 09/14/22 at 0525, For 1 dose, Irritant. 0545 ($Given - Provi krystina: Alexia Wilkinson RN) documented in this encounter Care Teams Supervisor Hydrochloric Area Relationship Specialty Start Date End Date No Ref-Primary, Physician PCP - General 04/14/22 documented as of this encounter
--- OUTSIDE RECORDS SUMMARY | 2023-05-12 03:44 | XMS_ITS | Encounter Summary ---
Author Name Unknown Organization [facility] Address [address] [place] [address] Care Team Providers Care Registered Nurse First Assistant Name Role Phone No Ref-Primary, Physician Primary [...] on filedocumented in this encounter Care Teams Registered Nurse First Assistant Relationship Specialty Start Date End Date No Ref-Primary, Physician PCP - General 04/14/22 documented as of this encounter
--- OUTSIDE RECORDS SUMMARY | 2023-05-12 03:44 | XMS_ITS | Encounter Summary ---
Author Name Unknown Organization [facility] Address [address] [place] [id number] Care Team Providers Care Nursing Techn Name Role Phone No Ref-Primary, Physician Primary Care Provider Reason for Visit * Reason Comments Dental Pain * Auth/Cert (Routine) Specialty Diagnoses / Procedures Referred By Mel quiroz Referred To Contact EMERGENCY MEDICINE Diagnoses Spell of altered consciousness Hyperkalemia Jaw pain Headache Spell of altered consciousness Emergency Dept [address] [place] [address] Referral ID Status Reason Start Date Expiration Date Visits Re quested Visits Authorized [id number] 1 1 Encounter Details Date Type Department Care Team (Late st Contact Info) Description 05/27/2022 2:02 PM GREEN CHAIN WORKER - 05/29/2022 2:43 PM GREEN CHAIN WORKER Hospital Encounter [place] [address] [facility] [address] [place] [address] Brooks Finnegan PA-C [facility] [address] [place], [place] [phone] Sundeep Melvin MD [address] [place], [place] [id number] Aliza Stevenson MD [facility] [address] [place], [place] [phone] Teresita Faustin DO [facility] [address] [place] [address] Benign essential hypertension (Primary Dx); Hyperkalemia; Jaw [...] Comments Blood Pressure 162/82 05/29/2022 7:26 AM GREEN CHAIN WORKER Pulse 102 05/29/2022 7:26 AM GREEN CHAIN WORKER Temperature 37.1 ??C (98.8 ??F) 05/29/2022 7:26 AM CS T Respiratory Rate 18 05/29/2022 7:26 AM GREEN CHAIN WORKER Oxygen Saturation 96% 05/29/2022 7:26 AM GREEN CHAIN WORKER Inhaled Oxygen Concentration - - Weight 66.9 kg (147 lb 6.4 oz) 05/29/2022 6:29 A M GREEN CHAIN WORKER Height 162.6 cm (5' 4) 05/27/2022 1:48 PM GREEN CHAIN WORKER Body Mass Index 25.3 05/27/2022 1:48 PM GREEN CHAIN WORKER documented in this encounter Discharge Summaries * Aliza Burnette DO - 05/29/2022 10:43 AM CST Hospitalist Discharge Summary [facility] Salbador Justin Date of : 1985 Age: [...] dialysis and hypertension who recently moved to [place] from [place] about 3 months ago and has yet to establish care with a primary care provider who presents to the ED for evaluation of dental pain and concern for multiple seizure like episodes. ?? #Hyperkalemia. AGMA. ESRD??on HD (//Fri):??Compliant with dialysis, last run without issues at [facility] on 05/25. Instructional Writer is Concetta Burns in [place]. Initial potassium level of 6.4. Anion gap [...] his own. Previous EEG while residing in [place].?? -Neurology contacted in ED and recommended holding [...] due to pain and needing dialysis. -Resumed LABOR RELATIONS ANALYST Amlodipine, Carvedilol, Hydralazine, Lisinopril, and Minoxidil -PRN [...] was: 35 Minutes Aliza Burnette DO [facility] [place]ist [place] [address] 05/29/2022 N CHAIN WORKER documented in this encounter Discharge Instructions * Discharge Instructions* Wade Bruno RN - 05/29/2022 11:27 AM GREEN CHAIN WORKER Your hospital follow up appointment has been scheduled for you with Dr. Maco Hylton at [facility] for June 05 at 3:45 pm. Please bring your hospital discharge instructions, a photo ID, and insurance information with you to your appointment. Please call the clinic at #[phone] if you need to reschedule. N CHAIN WORKER documented in this encounter Medications at Time [...] can go. Follow up with HD in [place]. Titration of BP meds per Dr. Freire, his primary sales and leasing agent. Carlos Salgado MD N CHAIN WORKER * Itzel Barksdale RN - 05/28/2022 1:03 [...] to treatment See Adult Hemodialysis flowsheet in [facility] for further details and post assessment. Machine water alarm in place and functioning. Transducer pods intact and checked every 15min. Pt returned via bed. Chlorine/Chloramine water system checked every 4 hours. Outpatient Dialysis at [facility] Patient repositioned every 2 hours during the treatment. Post treatment report given to Trinidad Causey RN regarding 1L of fluid removed, last BP of 208/117, and patient pain rating of 10/10. Please remove patient dressing on AVF and AVG needle sites 24 hours after dialysis. If leaking occurs please apply a Band-Aid. N CHAIN WORKER * Alvaro Draper MD - 05/28/2022 12:00 PM CST [facility] Hospitalist Progress Note Assessment & Plan Salbador Justin is a 36 year old male with PMH significant for ESRD on dialysis and hypertension who recently moved to [place] from [place] about 3 months ago and has yet to establish care witha primary care provider who presents to the ED for evaluation of dental pain and concern for multiple seizure like episodes. ?? #Hyperkalemia. AGMA. ESRD on HD (/Fri): compliant with dialysis, last run without issues at [facility] on 05/25. Instructional Writer is Concetta Burns in [place]. Initial potassium level of 6.4. Anion gap [...] his own. Previous EEG while residing in [place]. - seizure precautions - neurology contacted in [...] to pain and needing dialysis. - resume LABOR RELATIONS ANALYST Amlodipine, Carvedilol, Hydralazine, Lisinopril, and Minoxidil - [...] the left maxillary sinus. ALIZA SIEGEL MD N CHAIN WORKER * Mor Malcolm RN - 05/27/2022 11:26 [...] to face. Planned dialysis tomorrow. Discharge pending. N CHAIN WORKER * Mor Malcolm RN - 05/27/2022 10:07 PM CST At 2145 this instructional writer responded to pt call light. Pt indicated he was going to have seizure. Pt went unresponsive for 45 seconds then came too, stating I'm back now. Provider notified. Seizure pads in place. Will continue to provide supportive cares. N CHAIN WORKER * Dalton Mendieta MD - 05/27/2022 4:43 [...] or outpatient prescription. Pt reports going to [facility]? Will need to determine these details tomorrow when clinic open. - lokelma 10 g q8h - HD tomorrow - no further K checks needed overnight unless continued seizure activity Dalton Mendieta MD N CHAIN WORKER documented in this encounter H&P Notes * Belinda Driscoll PA-C - 05/27/2022 5:57 PM CST [facility] Hospitalist History and Physical Name: Salbador Justin Date of : 1985 Age: [age] year old Date of Admission: 05/27/2022 Date of Service (when I saw the patient): 05/27/22 Assessment & Plan Salbador Justin is a 36 year old male with PMH significant for ESRD on dialysis and hypertension who recently moved to [place] from [place] about 3 months ago and has yet [...] with dialysis, last run without issues at [facility] on 05/25. Instructional Writer is Concetta Burns in [place]. Initial potassium level of 6.4. Anion gap [...] his own. Previous EEG while residing in [place]. Historydoes not completely seem consistent with seizures. [...] tachycardic, suspect due to pain - resume LABOR RELATIONS ANALYST Amlodipine, Carvedilol, Hydralazine, Lisinopril, and Minoxidil - [...] states the pain is over his left zoroastrian, upper jaw, and radiates into his ear. [...] care provider since he moved here from [place]. Denies any tobacco, alcohol, or illicit drug [...] of left ear. Mild tenderness over left zoroastrian with palpation. CV: Regular rate and rhythm, [...] Rate 101 BPM Atrial Rate 101 BPM IN Interval 144 ms QRS Duration 104 ms QT 380 ms QTc 492 ms P Bryant 66 degrees R AXIS 80 degrees T Bryant 57 degrees Interpretation ECG Sinus tachycardia with occasional Premature ventricular complexes Possible Left atrial enlargement Borderline ECG No previous ECGs available CBC with platelets differential Status: Abnormal Narrative The following orders were created for panel order CBC with platelets differential. Procedure Abnormality Status --------- ------ CBC with platelets and d...[[id number]] Abnormal Final result Please view results for these tests on the individual orders. ALECIA Leo [facility] Securely message with the [employer] Console (learn more here) Text page via [facility] Paging/Directory I discussed the patient with Dr. Frazier and he agrees with the above plan. N CHAIN WORKER Associated attestation - Sundeep Melvin MD - 05/28/2022 6:22 PM GREEN CHAIN WORKER Physician Attestation I have reviewed and discussed [...] Communication Assessment Patient's communication style: spoken language (Nigerien or Bilingual) Hearing Difficulty or Deaf: no [...] services: No Community Resources: states friends and christianity assist with hotel/motel payment. Equipment currently used [...] No Current Concerns Values/Beliefs: Spiritual, Cultural Beliefs, Anabaptism Practices, Values that affect care: no Additional Information: Patient admitted for dental pain and concern of possible seizure. CM following for discharge planning. Met with patient at bedside. He reports he recently moved to [place] from [facility], 3 months ago. [facility] he is living at a hotel, [facility]. [facility] his ex-girlfriend lives near . Patient receives OP HD at [facility], chair time 7:30 am-11:30. [facility] HD center is nearby so he walks or his ex-girlfriend provides transportation. Patient reports having no financial concerns. He starts a new job in 2 weeks. He is independent in all ADLs. Discussed establishing care with a dentist and PCP of his choice. Patient would like [place] providers. CM assisted with scheduling f/u appointment with [facility] on June 05. Patient states he will call to schedule his appointment with a dentist. Patient given a list of dental clinic in [facility]. Patient plans to discharge to home/hotel. His ex will provide transportation. Wade Bruno RN Case Manager Inpatient Care Coordination [facility] [phone] Wade Bruno RN N CHAIN WORKER * Dalton Mendieta MD - 05/28/2022 11:33 AM CSTAssociated Order(s): NEPHROLOGY IP CONSULT [facility] Nephrology Consultation Date of Admission: 05/27/2022 Assessment & Plan Salbador Justin is a 36 year old male with PMH ESRD on HD, seizures who was admitted on 05/27/2022 facial pain and possible seizure activity. ESRD on HD Dialyzes TTS at [facility]. Access is LUE AVF. Prescription details verified with RN over phone: 4h run, 2K/2.5Ca, 16 g 350 BFR, 5K loading bolus heparin without maintenance . Primary sales and leasing agent is Dr. Concetta Burns. EDW 69.5 kg. [...] can add phos binder (doesn't appear on LABOR RELATIONS ANALYST list) Hyperkalemia K elevated in setting of needing dialysis and possible seizure. Given lokelma overnight, will dialyze today. - can discontinue lokelma HTN Continue LABOR RELATIONS ANALYST lisinopril, minoxidil, carvedilol, amlodipine. PLAN: - HD today - discontinued lokelma - resume LABOR RELATIONS ANALYST BP meds - TTS schedule Plan discussed [...] He notes he again has severe L zoroastrian pain, even tender to touch. Hemay or may not have had a seizure prior to presentation but unclear. He has not missed any dialysis last HD 05/25. He denies shortness of breath, LE edema. Only symptom is L zoroastrian pain. Denies n/v. Seen during dialysis and [...] in pain HEENT: MMM, tenderness to L zoroastrian CV: RRR, no murmurs RESP: Clear bilaterally [...] the last 168 [address]. Dalton Mend[address]eta MD [facility] - Nephrology [phone] N CHAIN WORKER * Elder John MD - 05/28/2022 9:20 AM CST Images from the original note were not included. Neurology Consult Note [facility] [May 28, 2022] Admission Date: 05/27/2022 Hospital Day: 2 Code Status: Full Code Patient: Salbador Justin : 1985 CC: Chief Complaint Patient presents with ??? Dental Pain Consult Request: Referring Provider: Sundeep Melvin MD Indication for Consultation: Which Neurology Group will follow this patient? [facility] Patient to be seen Routine within 24 hrs Reason for Consult reported seizure activity, h/o seizure no longer on antiepeleptics Note: Specific question for solar consultant Interchange Agent may enter orders Yes Requesting provider? Hospitalist (if different from attending physician) Primary Care Provider: No Ref-Primary, Physician HPI: Salbador Justin is a 36 year old yo gentleman admitted for hyperkalemia in the setting of ESRD, on dialysis. Despite diagnoses of severe hypertension and ESRD requiring dialysis three times weekly, he has not established care with a PCP in [place] despite moving here from [facility] three months ago. He has, however, received care on several occasions in the ER in [place], with initial ER encounter noted in February [...] diagnosed with epilepsy by a neurologist in [facility], with reported abnormal EEG. He [...] Daily ??? amoxicillin-clavulanate 1 tablet Oral Q12H [facility] (12/15) ??? carvedilol 12.5 mg Oral BID [...] results for input(s): PHOS in the last 00297 hours.0.7 mg (actual weight) CMP: Recent Labs [...] prior records regarding previously prescribed medication in [facility], andresults of his EEG performed in [place]. I recommend outpatient evaluation regarding his report of the diagnosis of epilepsy. Please call if there are further questions. Elder John M.D., Ph.D. [facility] N CHAIN WORKER documented in this encounter ED Notes * Shell Blanchard RN - 05/27/2022 8:18 PM CST Report given to Mor TRIPLETT N CHAIN WORKER * Shell Blanchard RN - 05/27/2022 7:23 PM CST DATE: 05/27/2022 TIME OF RECEIPT FROM LAB: 1922 LAB TEST: potassium LAB VALUE: 6.2 RESULTS GIVEN WITH READ-BACK TO (PROVIDER): Brooks Finnegan PA-C TIME LAB VALUE REPORTED TO PROVIDER: expected value Patient needs dialysis N CHAIN WORKER * Diane Causey RN - 05/27/2022 6:23 PM CST [facility] ED Nurse Handoff Report Salbador Justin is [...] Assist. Lift room needed: No. Bariatric: No Manager Floral Needed: No Isolation: No. Infection: Not Applicable. [...] on May 28, 2022 at 12:46 PM N CHAIN WORKER * Yoon Lugo RN - 05/27/2022 1:50 [...] and . Triage Assessment Row Name 05/27/22 2669 Triage Assessment (Adult) Airway WDL WDL Respiratory WDL Respiratory WDL WDL Skin Circulation/Temperature WDL Skin Circulation/Temperature WDL WDL Cardiac WDL Cardiac WDL WDL Peripheral/Neurovascular WDL Peripheral Neurovascular WDL WDL Cognitive/Neuro/Behavioral WDL Cognitive/Neuro/Behavioral WDL WDL N CHAIN WORKER * Brooks Finnegan PA-C - 05/27/2022 1:24 PM CST History Chief Complaint: Dental Pain HPI Salbador Justin is a 36 year old male with a history of ESRD on dialysis and hypertension who presents with right upper dental pain and pain in the zoroastrian and eye for the past 2 days. [...] focal deficits. Alert and oriented x3. Normal display fabricator strength. Normal leg raise. Sensation to light touch intact throughout all 4 extremities. 5/5 strength with dorsiflexion and plantarflexion bilaterally. GCS 15 Psychiatric: Normal affect. Nursing notes and vital signs reviewed. Emergency Department Course ECG: ECG results from 05/27/22 EKG 12-lead, tracing only Value Systolic Blood Pressure Diastolic Blood Pressure Ventricular Rate 101 Atrial Rate 101 IN Interval 144 QRS Duration 104 QT 380 QTc 492 P Bryant 66 R AXIS 80 T Bryant 57 Interpretation ECG Sinus tachycardia with occasional [...] ED Course as of 05/27/221927May 27, 2022 0692 I obtained the history and examined the [...] Tests: [address] Mendieta, sales and leasing agent, regarding the patient. 1708 I spoke with [...] 05/27/22 192 Brooks Finnegan PA-C 05/27/22 1934 N CHAIN WORKER documented in this encounter Miscellaneous Notes * [...] transport. Goal Outcome Evaluation: Adequate for discharge N CHAIN WORKER * Plan of Care - Pau Damico [...] neurology assessment and control on tooth pain. N CHAIN WORKER * Plan of Care - Promise Watts [...] Disposition: possible discharge tomorrow. Discharge Time: TBD. N CHAIN WORKER * Utilization Review - Prisca Bain MD [...] Prisca Bain MD Utilization Review/ Case Management [facility]. N CHAIN WORKER * Plan of Care - Diane Causey RN - 05/28/2022 1:30 PM CST 13:20 Patient Transfer Information Patient connected to monitoring equipment on arrival: NA Patient connected to wall oxygen on arrival:NA Belongings: Clothing cell phone Safety check completed:Yes. Seizure pads on bed Pt arrived to [facility] from ED via dialysis. Went to dialysis as an ED boarder this morning then came toMS3 from there at 13:20. Continue plan of care. 13:43 Text page sent to , Pt just arrived to [facility], room 355. He needs a diet order. [...] and IV Unasyn per orders. Neurology following. N CHAIN WORKER * Plan of Care - Cintia Steele [...] Tylenol time.Both medications given with good relief. N CHAIN WORKER * Pharmacy-Admission Medication History - JenMariano Stephen, [facility] - 05/27/2022 7:20 PM CST Admission medication history interview status for this patient is complete. See [facility] admission navigator for allergy information, prior to admission medications and immunization status. Medication history interview done, indicate source(s): Patient Medication history resources (including written lists, pill bottles, clinic record):Gareth Torres Everywhere, [facility] pharmacy [facility] [address] [place] [address] Changes made to LABOR RELATIONS ANALYST medication list: Added: all meds Actions taken by pharmacist (provider contacted, etc):sticky note to hospitalist Additional medication history information: instructional writer called [facility] pharmacy to confirm meds on the list below. Even though spironolactone and citalopram was on [place] [facility] Everywhere, both of them were notprescribed recently. [facility] don't have prescriptions [...] DYSPEPSIA 05/25/2022 Yes Unknown, Entered By History N CHAIN WORKER documented in this encounter Plan of Treatment Scheduled Orders Name Type Priority Associated Diagnoses Orde r Schedule EKG 12-lead, tracing only EKG STAT Enter condition for order release in comments for 1 Occurrences starting 05/28/2022 documented as of this encounter Procedures Procedure Name Priority Date/Time Associated Diagnosis Comments BASIC METABOLIC PANEL Routine 05/29/2022 7:14 AM GREEN CHAIN WORKER CBC WITH PLATELETS Routine 05/29/2022 7: 14 AM GREEN CHAIN WORKER CBC WITH PLATELETS AND DIFFERENTIAL STAT 05/28/2022 12:58 PM GREEN CHAIN WORKER CBC WITH PLATELETS & DIFFERENTIAL STAT 05/28/2022 12:58 PM GREEN CHAIN WORKER BASIC METABOLIC PANEL STAT 05/28/2022 12:58 PM GREEN CHAIN WORKER HEPATITIS B SURFACE ANTIBODY STAT 05/27/2022 10:24 PM GREEN CHAIN WORKER TROPONIN T, HIGH SENSITIVITY STAT 05/27/2022 10:24 PM GREEN CHAIN WORKER HEPATITIS B SURFACE ANTIGEN STAT 05/27/2022 10:24 PM GREEN CHAIN WORKER POTASSIUM STAT 05/27/2022 8:07 PM GREEN CHAIN WORKER PHOSPHORUS Add-On 05/27/2022 8:07 PM GREEN CHAIN WORKER POTASSIUM STAT 05/27/2022 6:[address] HEAD W/O CONTRAST STAT 05/27/2022 4:[address] ABDOMEN PELVIS W/O CONTRAST STAT 05/27/2022 4:04 PM GREEN CHAIN WORKER EKG 12-LEAD, TRACING ONLY STAT 05/27/2022 3:20 PM GREEN CHAIN WORKER CBC WITH PLATELETS AND DIFFERENTIAL STAT 05/27/2022 3:01 PM GREEN CHAIN WORKER TROPONIN T, HIGH SENSITIVITY STAT 05/27/2022 3:01 PM GREEN CHAIN WORKER CBC WITH PLATELETS & DIFFERENTIAL STAT 05/27/2022 3:01 PM GREEN CHAIN WORKER MAGNESIUM STAT 05/27/2022 3:01 PM GREEN CHAIN WORKER LIPASE STAT 05/27/2022 3:01 PM GREEN CHAIN WORKER LACTIC ACID WHOLE BLOOD STAT 05/27/2022 3:01 PM GREEN CHAIN WORKER COMPREHENSIVE METABOLIC PANEL STAT 05/27/2022 3:01 PM GREEN CHAIN WORKER documented in this encounter Results * (ABNORMAL) Basic metabolic panel (05/29/2022 7:14 AM GREEN CHAIN WORKER) Sodium 137 136 - 145 mmol/L 05/29/2022 8:22 AM [facility] Potassium 4.1 3.4 - 5.3 mmol/L 05/29/2022 8:22 AM [facility] Chloride 96(L) 98 - 107 mmol/L 05/29/2022 8:22 AM [facility] Carbon Dioxide (CO2) 25 22 - 29 mmol/L 05/29/2022 8:22 AM [facility] Anion Gap 16(H) 7 - 15 mmol/L 05/29/2022 8:22 AM [facility] Urea Nitrogen 26.5(H) 6.0 - 20.0 mg/dL 05/29/2022 8:22 AM [facility] Creatinine 11.28(H) 0.67 - 1.17 mg/dL 05/29/2022 8:22 AM [facility] Calcium 8.9 8.6 - 10.0 mg/dL 05/29/2022 8:22 AM [facility] Glucose 124(H) 70 - 99 mg/dL 05/29/2022 8:22 AM [facility] GFR Estimate 6(L) >60 mL/min/1.7 3m2 05/29/2022 8:22 AM [facility] Comment:eGFR calculated usin 2020 CKD-EPI equation. Blood STRUCTURE OF RIGHT HAND / Unknown Venipuncture / Unknown 05/29/2022 7:14 AM GREEN CHAIN WORKER 05/29/2022 7:55 AM [facility] Alvaro Draper MD LAB - BLOOD ORDERABL ES LABORATORY [facility] [address] [facility] (1st floor, no room number) [place] [address], [facility] [phone] * (ABNORMAL) CBC with platelets (05/29/2022 7:14 AM GREEN CHAIN WORKER) WBC Count 9.9 4.0 - 11.0 10e3/uL 05/29/2022 7:58 AM [facility] RBC Count 3.28(L) 4.40 - 5.90 10e6/uL 05/29/2022 7:58 AM [facility] Hemoglobin 9.1(L) 13.3 - 17.7 g/dL 05/29/2022 7:58 AM GREEN CHAIN WORKER [facility] Hematocrit 29.0(L) 40.0 - 53.0 % 05/29/2022 7:58 AM GREEN CHAIN WORKER [facility] MCV 88 78 - 100 fL 05/29/2022 7:58 AM GREEN CHAIN WORKER [facility] MCH 27.7 26.5 - 33.0 pg 05/29/2022 7:58 AM GREEN CHAIN WORKER [facility] MCHC 31.4(L) 31.5 - 36.5 g/dL 05/29/2022 7:58 AM GREEN CHAIN WORKER [facility] RDW 14.2 10.0 - 15.0 % 05/29/2022 7:58 AM GREEN CHAIN WORKER [facility] Platelet Count 300 150 - 450 10e3/uL 05/29/2022 7:58 AM GREEN CHAIN WORKER [facility] Blood STRUCTURE OF RIGHT HAND / Unknown Venipuncture / Unknown 05/29/2022 7:14 AM GREEN CHAIN WORKER 05/29/2022 7:55 AM GREEN CHAIN WORKER Alvaro Draper MD LAB - BLOOD ORDERABL ES RH LABORATORY [facility] Acute Care Lab [address] [facility] Lab (1st floor, no room number) [place] [address], [facility] [phone] * (ABNORMAL) CBC with platelets and differential (05/28/2022 12:58 PM GREEN CHAIN WORKER) WBC Count 8.6 4.0 - 11.0 10e3/uL 05/28/2022 1:15 PM GREEN CHAIN WORKER [facility] RBC Count 3.45(L) 4.40 - 5.90 10e6/uL 05/28/2022 1:15 PM GREEN CHAIN WORKER [facility] Hemoglobin 9.6(L) 13.3 - 17.7 g/dL 05/28/2022 1:15 PM GREEN CHAIN WORKER [facility] Hematocrit 29.6(L) 40.0 - 53.0 % 05/28/2022 1:15 PM GREEN CHAIN WORKER [facility] MCV 86 78 - 100 fL 05/28/2022 1:15 PM GREEN CHAIN WORKER [facility] MCH 27.8 26.5 - 33.0 pg 05/28/2022 1:15 PM GREEN CHAIN WORKER [facility] MCHC 32.4 31.5 - 36.5 g/dL 05/28/2022 1:15 PM GREEN CHAIN WORKER [facility] RDW 13.7 10.0 - 15.0 % 05/28/2022 1:15 PM GREEN CHAIN WORKER [facility] Platelet Count 311 150 - 450 10e3/uL 05/28/2022 1:15 PM GREEN CHAIN WORKER [facility] % Neutrophils 67 % 05/28/2022 1:15 PM GREEN CHAIN WORKER [facility] % Lymphocytes 16 % 05/28/2022 1:15 PM GREEN CHAIN WORKER [facility] % Monocytes 10 % 05/28/2022 1:15 PM GREEN CHAIN WORKER [facility] % Eosinophils 6 % 05/28/2022 1:15 PM GREEN CHAIN WORKER [facility] % Basophils 1 % 05/28/2022 1:15 PM GREEN CHAIN WORKER [facility] % Immature Granulocytes 0 % 05/28/2022 1:15 PM GREEN CHAIN WORKER [facility] NRBCs per 100 WBC 0 <1 /100 023 1:15 PM GREEN CHAIN WORKER [facility] Absolute Neutrophils 5.7 1.6 - 8.3 10e3/uL 05/28/2022 1:15 PM GREEN CHAIN WORKER [facility] Absolute Lymphocytes 1.4 0.8 - 5.3 10e3/uL 05/28/2022 1:15 PM GREEN CHAIN WORKER [facility] Absolute Monocytes 0.9 0.0 - 1.3 10e3/uL 05/28/2022 1:15 PM GREEN CHAIN WORKER [facility] Absolute Eosinophils 0.5 0.0 - 0.7 10e3/uL 05/28/2022 1:15 PM [facility] [facility] [facility] Absolute Basophils 0.1 0.0 - 0.2 10e3/uL 05/28/2022 1:15 PM [facility] Absolute Immature Granulocytes 0.0 <=0.4 10e3/uL 05/28/2022 1:15 PM [facility] Absolute NRBCs 0.0 10e3/uL 05/28/2022 1:15 PM [facility] Blood STRUCTURE OF LEFT HAND / Unknown Venipuncture / Unknown 05/28/2022 12:58 PM GREEN CHAIN WORKER 05/28/2022 1:04 PM GREEN CHAIN WORKER Alvaro Draper MD LAB - BLOOD ORDERABL ES [facility] [address] Lab (1st floor, no room number) [place] [address], [facility] [phone] * (ABNORMAL) Basic metabolic panel (05/28/2022 12:58 PM GREEN CHAIN WORKER) Pathologist [facility] Sodium 141 136 - 145 mmol/L 05/28/2022 2:50 PM [facility] CH[facility] WORK[facility] LABORATORY Potassium 3.3(L) 3.4 - 5.3 mmol/L 05/28/2022 2:50 PM [facility] WORK[facility] Chloride 96(L) 98 - 107 mmol/L 05/28/2022 2:50 PM [facility] CH[facility] WORK[facility] Carbon Dioxide (CO2) 26 22 - 29 mmol/L 05/28/2022 2:50 PM [facility] CH[employer] WORK[facility] Anion Gap 19(H) 7 - 15 mmol/L 05/28/2022 2:50 PM [facility] CH[facility] WORK[facility] Urea Nitrogen 16.6 6.0 - 20.0 mg/dL 05/28/2022 2:50 PM [facility] CH[employer] WORK[facility] LAB[facility] Creatinine 5.89(H) 0.67 - 1.17 mg/dL 05/28/2022 2:50 PM [facility] CH[employer] WORK[facility] Calcium 9.5 8.6 - 10.0 mg/dL 05/28/2022 2:50 PM [facility] CH[employer] WORK[facility] Glucose 75 70 - 99 mg/dL 05/28/2022 2:50 PM [facility] CH[employer] WORK[facility] GFR Estimate 12(L) >60 mL/min/1.7 3m2 05/28/2022 2:50 PM [facility] WORK[facility] Comment:eGFR calculated usin 2020 CKD-EPI equation. Blood STRUCTURE OF LEFT HAND / Unknown Venipuncture / Unknown 05/28/2022 12:58 PM GREEN CHAIN WORKER 05/28/2022 1:04 PM GREEN CHAIN WORKER Alvaro Draper MD LAB - BLOOD ORDERABL ES LABORATORY [facility] Lab [address] [facility] Lab (1st floor, no room number) [place] [address], [facility] [phone] * Hepatitis B Surface Antibody (05/27/2022 10:24 PM GREEN CHAIN WORKER) Hepatitis B Surface Antibody Instrument Value 12.08 <8.00 m[IU]/mL 05/28/2022 6:48 PM GREEN CHAIN WORKER SPECIALTY CORE/PROT/END O Hepatitis B Surface Antibody Reactive 05/28/2022 6:48 PM GREEN CHAIN WORKER SPECIALTY CORE/PROT/END O Comment:Patient is considere d to be immune to infection with hepatitis B when the value is greater than or equal to 12.00 mIU/mL. Blood STRUCTURE OF RIGHT HAND / Unknown Venipuncture / Unknown 05/27/2022 10:24 PM GREEN CHAIN WORKER 05/27/2022 10:33 PM GREEN CHAIN WORKER Carlos Salgado MD LAB - BLOOD ORDERABL ES [facility] SPECIALTY CORE/PROT/ENDO [facility] Specialty Core/Prot/Endo [address] [facility], [address] [phone] * Hepatitis B surface antigen (05/27/2022 10:24 PM GREEN CHAIN WORKER) Hepatitis B Surface Antigen Nonreactive Nonreactive 05/28/2022 6:48 PM GREEN CHAIN WORKER SPECIALTY CORE/PROT/EN DO Blood STRUCTURE OF RIGHT HAND / Unknown Venipuncture / Unknown 05/27/2022 10:24 PM GREEN CHAIN WORKER 05/27/2022 10:33 PM GREEN CHAIN WORKER Carlos Salgado MD LAB - BLOOD ORDERABL ES SPECIALTY CORE/PROT/ENDO Specialty Core/Prot/Endo [address] [facility], [address] [phone] * (ABNORMAL) Troponin T, High Sensitivity (05/27/2022 10:24 PM GREEN CHAIN WORKER) Troponin T, High Sensitivity 66(H) <=22 ng/L 05/27/2022 10:52 PM GRE[facility] CHAIN WORKER LABORATORY Comment: Either a High Sensitivity Troponin [...] Unknown Venipuncture / Unknown 05/27/2022 10:24 PM GREEN CHAIN WORKER 05/27/2022 10:33 PM GREEN CHAIN WORKER Belinda Driscoll PA-C LAB - BLOOD OMAR SURESH [facility] Lab [address] Lab (1st floor, no room number) [place] [phone], [facility] [phone] * (ABNORMAL) Phosphorus (05/27/2022 8:07 PM GREEN CHAIN WORKER) Phosphorus 6.9(H) 2.5 - 4.5 mg/dL 05/28/2022 11:54 AM GREEN CHAIN WORKER LABORATORY Blood STRUCTURE OF RIGHT HAND / Unknown Venipuncture / Unknown 05/27/2022 8:07 PM GREEN CHAIN WORKER 05/27/2022 8:45 PM GREEN CHAIN WORKER Dalton Mendieta MD LAB - BLOOD ORDER PENG [facility] [address] Lab (1st floor, no room number) [place] [address], [facility] [phone] * (ABNORMAL) Potassium (05/27/2022 8:07 PM GREEN CHAIN WORKER) Potassium 6.4(HH) 3.4 - 5.3 mmol/L 05/27/2022 9:30 PM GREEN CHAIN WORKER LABORATORY Blood STRUCTURE OF RIGHT HAND / Unknown Venipuncture / Unknown 05/27/2022 8:07 PM GREEN CHAIN WORKER 05/27/2022 8:45 PM GREEN CHAIN WORKER Brooks PEREZ-C LAB - BLOOD ORDERABL ES [facility] Lab [address] Lab (1st floor, no room number) [place] [address], [facility] [phone] * (ABNORMAL) Potassium (05/27/2022 6:43 PM GREEN CHAIN WORKER) Potassium 6.2(HH) 3.4 - 5.3 mmol/L 05/27/2022 7:23 PM GREEN CHAIN WORKER LABORATORY Blood STRUCTURE OF RIGHT HAND / Unknown Venipuncture / Unknown 05/27/2022 6:43 PM GREEN CHAIN WORKER 05/27/2022 6:49 PM GREEN CHAIN WORKER Brooks Finnegan PA-C LAB - BLOOD ORDERABL ES Performing Organization Address [facility]/ZIP Co de Phone Number [facility] Lab [address] Lab (1st floor, no room number) [place] [address], [facility] [phone] * CT Head w/o Contrast (05/27/2022 4:04 PM GREEN CHAIN WORKER) Anatomical Region Laterality Modality Head, SUBRAD CT NEURO, SUBRA D CT NEURO, UMP CT NEURO, RAD CT Computed Tomography Impressions 05/27/2022 4:37 PM GREEN CHAIN WORKER IMPRESSION: ?? 1. No acute intracranial hemorrhage, extra axial fluid collection, or mass effect. 2. Possible subtle patchy nonspecific hypoattenuation in the cerebral white matter, as described. 3. Mild to moderate polypoid mucosal thickening in the left maxillary sinus. ALIZA SIEGEL MD Narrative 05/27/2022 4:[address] SCAN OF THE HEAD WITHOUT CONTRAST [...] sinus. ALIZA SIEGEL MD Brooks Finnegan PA-C [facility] [place] * CT Abdomen Pelvis w/o Contrast (05/27/2022 4:04 PM GREEN CHAIN WORKER) Anatomical Region Laterality Modality Abdomen/Pelvis, SUBRAD CT BRIAN DY, UMP CT ABDOMEN PELVIS, RAD CT Computed Tomography Impressions 05/27/2022 4:16 PM GREEN CHAIN WORKER IMPRESSION: Within the limitation of noncontrast exam, [...] ANJELICA MUSE MD Narrative 05/27/2022 4:[address] ABDOMEN PELVIS WITHOUT CONTRAST ??05/27/2022 4:04 [...] EKG 12-lead, tracing only (05/27/2022 3:20 PM GREEN CHAIN WORKER) Systolic Blood Pressure mmHg RADIOLOGY RESULTS Diastolic Blood Pressure mmHg RADIOLOGY RESULTS Ventricular Rate 101 BPM RAD IOLOGY RESULTS Atrial Rate 101 BPM RADIOLOG Y RESULTS IN Interval 144 ms RADIOLOG Y RESULTS QRS Duration 104 ms RADIOLO GY RESULTS QT 380 ms RADIOLOGY RESULTS QTc 492 ms RADIOLOGY RESULTS P Bryant 66 degrees RADIOLOGY RESULTS R AXIS 80 degrees RADIOLOGY RESULTS T Bryant 57 degrees RADIOLOGY RESULTS Interpretation ECG Sinus tachycardia with occasional Premature ventricular complexes Possible Left atrial enlargement Borderline ECG No previous ECGs available Confirmed by - EMERGENCY ROOM, PHYSICIAN ([id number]), editor at large YODIT MITTAL ([id number]) on 05/28/2022 7:40:38 AM RADIOLOGY RESULTS 05/27/2022 3:20 PM GREEN CHAIN WORKER 05/28/2022 7:40 AM GREEN CHAIN WORKER Brooks Finnegan PA-C ECG ORDERABLES RADIOLOGY RESULTS * Lipase (05/27/2022 3:01 PM GREEN CHAIN WORKER) Pathologist [facility] Lipase 37 13 - 60 U/L 05/27/2022 6:49 PM GREEN CHAIN WORKER LABORATORY Blood BLOOD SPECIMEN / Unknown Venipuncture / Unknown 05/27/2022 3:01 PM GREEN CHAIN WORKER 05/27/2022 3:06 PM GREEN CHAIN WORKER Brooks Finnegan PA-C LAB - BLOOD ORDERABL ES LABORATORY [facility] [address] [facility] Lab (1st floor, no room number) [place] [address] [phone] * (ABNORMAL) CBC with platelets and differential (05/27/2022 3:01 PM GREEN CHAIN WORKER) WBC Count 8.2 4.0 - 11.0 10e3/uL 05/27/2022 3:34 PM GREEN CHAIN WORKER [facility] RBC Count 3.76(L) 4.40 - 5.90 10e6/uL 05/27/2022 3:34 PM GREEN CHAIN WORKER [facility] Hemoglobin 10.6(L) 13.3 - 17.7 g/dL 05/27/2022 3:34 PM GREEN CHAIN WORKER [facility] Hematocrit 33.5(L) 40.0 - 53.0 % 05/27/2022 3:34 PM GREEN CHAIN WORKER [facility] MCV 89 78 - 100 fL 05/27/2022 3:34 PM GREEN CHAIN WORKER [facility] MCH 28.2 26.5 - 33.0 pg 05/27/2022 3:34 PM GREEN CHAIN WORKER [facility] MCHC 31.6 31.5 - 36.5 g/dL 05/27/2022 3:34 PM GREEN CHAIN WORKER [facility] RDW 13.9 10.0 - 15.0 % 05/27/2022 3:34 PM GRE[facility] CHAIN WORKER [facility] Platelet Count 313 150 - 450 10e3/uL 05/27/2022 3:34 PM GRE[facility] CHAIN WORKER [facility] % Neutrophils 71 % 05/27/2022 3:34 PM GREEN CHAIN WORKER [facility] % Lymphocytes 17 % 05/27/2022 3:34 PM GREEN CHAIN WORKER [facility] % Monocytes 8 % 05/27/2022 3:34 PM GREEN CHAIN WORKER [facility] % Eosinophils 3 % 05/27/2022 3:34 PM GREEN CHAIN WORKER [facility] % Basophils 1 % 05/27/2022 3:34 PM GRE[facility] CHAIN WORKER [facility] % Immature Granulocytes 0 % 05/27/2022 3:34 PM GREEN CHAIN WORKER [facility] NRBCs per 100 WBC 0 <1 /100 023 3:34 PM GREEN CHAIN WORKER [facility] Absolute Neutrophils 5.9 1.6 - 8.3 10e3/uL 05/27/2022 3:34 PM GRE[employer] CHAIN WORKER [facility] Absolute Lymphocytes 1.4 0.8 - 5.3 10e3/uL 05/27/2022 3:34 PM GREEN CHAIN WORKER [facility] Absolute Monocytes 0.6 0.0 - 1.3 10e3/uL 05/27/2022 3:34 PM GRE[employer] CHAIN WORKER [facility] Absolute Eosinophils 0.2 0.0 - 0.7 10e3/uL 05/27/2022 3:34 PM GRE[employer] CHAIN WORKER [facility] Absolute Basophils 0.1 0.0 - 0.2 10e3/uL 05/27/2022 3:34 PM GRE[facility] CHAIN WORKER [facility] Absolute Immature Granulocytes 0.0 <=0.4 10e3/uL 05/27/2022 3:34 PM GRE[facility] CHAIN WORKER [facility] Absolute NRBCs 0.0 10e3/uL 05/27/2022 3:34 PM GRE[facility] CHAIN WORKER [facility] Blood BLOOD SPECIMEN / Unknown Venipuncture / Unknown 05/27/2022 3:01 PM GREEN CHAIN WORKER 05/27/2022 3:06 PM GREEN CHAIN WORKER Brooks Finnegan PA-C LAB - BLOOD ORDERABL ES Performing Organization Address [facility]/ZIP Co de Phone Number LABORATORY [facility] [address] Lab (1st floor, no room number) [place] [address], [facility] [phone] * Lactic acid whole blood (05/27/2022 3:01 PM GREEN CHAIN WORKER) Lactic Acid 1.6 0.7 - 2.0 mmol/L 05/27/2022 3:09 PM GREEN CHAIN WORKER LABORATORY Blood BLOOD SPECIMEN / Unknown Venipuncture / Unknown 05/27/2022 3:01 PM GREEN CHAIN WORKER 05/27/2022 3:06 PM GREEN CHAIN WORKER Brooks PREEZ-Antonieta LAB - BLOOD ORDERABL ES Performing Organization Address [facility]/ZIP Co de Phone Number LABORATORY [facility] [address] Lab (1st floor, no room number) [place] [address], [facility] [phone] * (ABNORMAL) Troponin T, High Sensitivity (05/27/2022 3:01 PM GREEN CHAIN WORKER) Troponin T, High Sensitivity 68(H) <=22 ng/L 05/27/2022 3:57 PM GRE[facility] CHAIN WORKER LAB[facility]ATORY Comment: Either a High Sensitivity Troponin [...] Unknown Venipuncture / Unknown 05/27/2022 3:01 PM GREEN CHAIN WORKER 05/27/2022 3:06 PM GREEN CHAIN WORKER Brooks PEREZ-C LAB - BLOOD ORDERABL ES Performing Organization Address City/[facility]/ZIP Co de Phone Number LABORATORY [facility] [address] Lab (1st floor, no room number) [place] [address], [facility] [phone] * Magnesium (05/27/2022 3:01 PM GREEN CHAIN WORKER) Pathologist [facility] Magnesium 2.0 1.7 - 2.3 mg/dL 05/27/2022 3:57 PM GREEN CHAIN WORKER LABORATORY Blood BLOOD SPECIMEN / Unknown Venipuncture / Unknown 05/27/2022 3:01 PM GREEN CHAIN WORKER 05/27/2022 3:06 PM GREEN CHAIN WORKER Brooks PEREZ-C LAB - BLOOD ORDERABL ES Performing Organization Address [facility]/ZIP Co de Phone Number [facility] [address] Lab (1st floor, no room number) [place] [address], [facility] [phone] * (ABNORMAL) Comprehensive metabolic panel (05/27/2022 3:01 PM GREEN CHAIN WORKER) Sodium 136 136 - 145 mmol/L 05/27/2022 4:23 PM [facility] Potassium 6.4(HH) 3.4 - 5.3 mmol/L 05/27/2022 4:23 PM [facility] Comment:Specimen slightly he molyzed, potassium may be falsely elevated. Chloride 92(L) 98 - 107 mmol/L 05/27/2022 4:23 PM [facility] Carbon Dioxide (CO2) 16(L) 22 - 29 mmol/L 05/27/2022 4:23 PM [facility] Anion Gap 28(H) 7 - 15 mmol/L 05/27/2022 4:23 PM [facility] Urea Nitrogen 43.8(H) 6.0 - 20.0 mg/dL 05/27/2022 4:23 PM [facility] Creatinine 13.78(H) 0.67 - 1.17 mg/dL 05/27/2022 4:23 PM [facility] Calcium 9.5 8.6 - 10.0 mg/dL 05/27/2022 4:23 PM GRE[facility] CHAIN WORKER LABORATORY Glucose 79 70 - 99 mg/dL 05/27/2022 4:23 PM GREEN CHAIN WORKER LABORATORY Alkaline Phosphatase 51 40 - 129 U/L 05/27/2022 4:23 PM GREEN CHAIN WORKER LABORATORY AST 23 10 - 50 U/L 05/27/2022 4:23 PM [facility] Comment:Specimen is hemolyze d which can falsely elevate AST. Analysis of a non-hemolyzed specimen may result in a lower value. ALT 13 10 - 50 U/L 05/27/2022 4:23 PM GREEN CHAIN WORKER LABORATORY Protein Total 7.9 6.4 - 8.3 g/dL 05/27/2022 4:23 PM GRE[facility] CHAIN WORKER LABORATORY Albumin 5.0 3.5 - 5.2 g/dL 05/27/2022 4:23 PM [facility] Bilirubin Total 0.4 <=1.2 mg/dL 05/27/2022 4:23 PM GRE[facility] CHAIN WORKER LABORATORY GFR Estimate 4(L) >60 mL/min/1. 73m2 05/27/2022 4:23 PM [facility] Comment:eGFR calculated usin 2020 CKD-EPI equation. Blood BLOOD SPECIMEN / Unknown Venipuncture / Unknown 05/27/2022 3:01 PM GREEN CHAIN WORKER 05/27/2022 3:06 PM GREEN CHAIN WORKER Brooks Finnegan PA-C LAB - BLOOD ORDERABL ES LABORATORY [facility] Lab [address] [facility] Lab (1st floor, no room number) [place] [address], [facility] [phone] documented in this encounter Visit Diagnoses Diagnosis [...] 1 dose $New Bag 05/27/2022 3:00 PM GREEN CHAIN WORKER 1,000 mLs 1000 mL/hr 0.9% sodium chloride BOLUS Intravenous, 250 mL, ONCE IN DIALYSIS/CRRT, On Fri05/28/22 at 0715, For 1 dose, For patient prime during dialysis, Dialysis $New Bag 05/28/2022 11:28 AM GREEN CHAIN WORKER 250 mLs 0.9% sodium chloride BOLUS Hemodialysis Machine, 300 mL, ONCE, On Fri05/28/22 at 0715, For 1 dose, For Dialyzer Prime. (In Dialyzer), Dialysis $New Bag 05/28/2022 11:28 AM GREEN CHAIN WORKER 300 mLs 0.9% sodium chloride BOLUS Intravenous, [...] exceed 4 grams/day. $Given 05/29/2022 6:24 AM GREEN CHAIN WORKER 650 mg $Given 05/28/2022 10:40 PM GREEN CHAIN WORKER 650 mg $Given 05/28/2022 7:25 PM GREEN CHAIN WORKER 650 mg acetaminophen (TYLENOL) tablet 975 mg 975 mg, Oral, EVERY 8 HOURS PRN, mild pain, Starting on Fri05/27/22 at 2024, Maximum acetaminophen dose from all sources = 75 mg/kg/day not to exceed 4 grams/day. $Given 05/27/2022 10:35 PM GREEN CHAIN WORKER 975 mg amLODIPine (NORVASC) tablet 10 mg 10 mg, Oral, DAILY, First dose on Fri05/28/22 at 0800 $Given 05/29/2022 8:26 AM GREEN CHAIN WORKER 10 mg $Given 05/28/2022 1:54 PM GREEN CHAIN WORKER 10 mg amoxicillin-clavulanate (AUGMENTIN) 500-125 MG per tablet 1 tablet STAT, 1 tablet, Oral, EVERY 12 HOURS SCHEDULED, First dose on Fri05/27/22 at 2105, Indications: Dental infection $Given 05/27/2022 10:13 PM GREEN CHAIN WORKER 1 table t ampicillin-sulbactam (UNASYN) 3 g vial to attach to NS 100 mL bag STAT, 3 g, Intravenous, EVERY 24 HOURS, First dose on Fri05/28/22 at 2000, Indications: dental infection $New Bag 05/28/2022 8:20 PM GREEN CHAIN WORKER 3 g calcium gluconate 1 g in [...] as phosphate-containing solutions $Given 05/27/2022 4:50 PM GREEN CHAIN WORKER 1 g carvedilol (COREG) tablet 12.5 mg 12.5 mg, Oral, 2 TIMES DAILY WITH MEALS, First dose on Fri05/27/22 at 2025 $Given 05/28/2022 6:17 PM GREEN CHAIN WORKER 12.5 mg $Given 05/27/2022 9:03 PM GREEN CHAIN WORKER 12.5 mg docusate (COLACE) 50 MG/5ML liquid 100 mg 100 mg, Oral, ONCE, On Fri05/27/22 at 1725, For 1 dose, FOR EAR Hold for loose stools. $Given 05/27/2022 5:43 PM GREEN CHAIN WORKER 100 mg furosemide (LASIX) injection 40 mg 40 mg, Intravenous, ONCE, Administer over 1-3 Minutes, On Fri05/27/22 at 1700, For 1 dose $Given 05/27/2022 5:23 PM GREEN CHAIN WORKER 40 mg heparin (porcine) injection 500 Units, Hemodialysis Machine OR IV Push, ONCE IN DIALYSIS/CRRT, On Fri05/28/22 at 0715, For 1 dose, LOADING DOSE Administer loading dose prior to heparin infusion. PRE DIALYSIS RUN Dialysis, Dialysis $Given 05/28/2022 11:27 AM GREEN CHAIN WORKER 500 Units heparin 10,000 units/10 mL infusion (DIALYSIS USE) 500 Units/hr (0.5 mL/hr), Hemodialysis Machine, CONTINUOUS, Starting on Fri05/28/22 at 0715, DURING DIALYSIS TREATMENT, Dialysis $New Bag 05/28/2022 11:27 AM GREEN CHAIN WORKER 500 Units/hr 0.5 mL/hr hydrALAZINE (APRESOLINE) injection 10 mg 10 mg, Intravenous, EVERY 6 HOURS PRN, high blood pressure, give for SBP > 180, Starting on Fri05/27/22 at 2136 hydrALAZINE (APRESOLINE) tablet 50 mg 50 mg, Oral, 2 TIMES DAILY, First dose on Fri05/27/22 at 5 $Given 05/29/2022 8:27 AM GREEN CHAIN WORKER 50 mg $Given 05/28/2022 8:22 PM GREEN CHAIN WORKER 50 mg $Given 05/28/2022 2:00 PM GREEN CHAIN WORKER 50 mg HYDROmorphone (DILAUDID) half-tab 1-2 mg 1-2 mg, Oral, EVERY 4 HOURS PRN, moderate pain, IF pain not managed with non-pharmacological and non-opioid interventions, Starting on Fri05/27/22 at 2024, May use concomitant with non-opioid analgesics. $Given 05/29/2022 10:13 AM GREEN CHAIN WORKER 1 mg $Given 05/28/2022 10:40 PM GREEN CHAIN WORKER 2 mg $Given 05/28/2022 6:15 PM GREEN CHAIN WORKER 2 mg HYDROmorphone (DILAUDID) injection 0.2 mg 0.2 mg, Intravenous, ONCE PRN, moderate pain, severe pain, Starting on Fri05/27/22 at 1445, For 1 dose, Notify the provider to assess for uncontrolled pain or analgesic side effects. Hold while on IV DUSTLESS OPERATOR or with regular IV opioid dosing. $Given 05/27/2022 3:00 PM GREEN CHAIN WORKER 0.2 mg HYDROmorphone (DILAUDID) injection 0.2 mg 0.2 mg, Intravenous, EVERY 2 HOURS PRN, moderate pain, IF patient cannot take oral opioid OR IF pain not managed with non-pharmacological, non-opioid, or oral opioid interventions if ordered, Starting on Fri05/27/22 at 2023, May use concomitant with non-opioid analgesics. $Given 05/27/2022 8:36 PM GREEN CHAIN WORKER 0.2 mg HYDROmorphone (PF) (DILAUDID) injection 0.3-0.5 mg 0.3-0.5 mg, Intravenous, EVERY 2 HOURS PRN, moderate pain, severe pain, IF patient cannot take oral opioid OR IF pain not managed with non-pharmacological, non-opioid, or oral opioid interventions if ordered, Starting on Fri05/27/22 at 2054, May use concomitant with non-opioid analgesics. $Given 05/29/2022 1:08 PM GREEN CHAIN WORKER 0.5 mg $Given 05/29/2022 6:25 AM GREEN CHAIN WORKER 0.3 mg $Given 05/28/2022 3:18 PM GREEN CHAIN WORKER 0.5 mg HYDROmorphone (PF) (DILAUDID) injection 0.5 mg 0.5 mg, Intravenous, ONCE PRN, moderate pain, severe pain, Starting on Fri05/27/22 at 1544, For 1 dose, Notify the provider to assess for uncontrolled pain or analgesic side effects. Hold while on IV DUSTLESS OPERATOR or with regular IV opioid dosing. $Given 05/27/2022 4:36 PM GREEN CHAIN WORKER 0.5 mg hydrOXYzine (ATARAX) tablet 25 mg [...] contact the provider. $Given 05/28/2022 5:33 AM GREEN CHAIN WORKER 25 mg $Given 05/28/2022 2:15 AM GREEN CHAIN WORKER 25 mg hydrOXYzine (ATARAX) tablet 50 mg [...] contact the provider. $Given 05/28/2022 6:17 PM GREEN CHAIN WORKER 50 mg $Given 05/28/2022 1:23 PM GREEN CHAIN WORKER 50 mg labetalol (NORMODYNE/TRANDATE) injection 10 mg 10 mg, Intravenous, ONCE, On Fri05/27/22 at 1730, For 1 dose, PROTECT FROM LIGHT. $Given 05/27/2022 5:42 PM GREEN CHAIN WORKER 10 mg lisinopril (ZESTRIL) tablet 20 mg 20 mg, Oral, DAILY, First dose on Fri05/28/22 at 0800, This therapy was substituted for benazepril (Lotensin) 20 mg daily. $Given 05/29/2022 8:26 AM GREEN CHAIN WORKER 20 mg $Given 05/28/2022 1:54 PM GREEN CHAIN WORKER 20 mg minoxidil (LONITEN) tablet 2.5 mg 2.5 mg, Oral, DAILY, First dose on Fri05/28/22 at 0800 $Given 05/29/2022 8:26 AM GREEN CHAIN WORKER 2.5 mg ondansetron (ZOFRAN ODT) ODT tab [...] prochlorperazine (COMPAZINE). Irritant. $Given 05/27/2022 8:32 PM GREEN CHAIN WORKER 4 mg oxyCODONE (ROXICODONE) tablet 5 mg 5 mg, Oral, ONCE, On Fri05/28/22 at 1040, For 1 dose $Given 05/28/2022 10:59 AM GREEN CHAIN WORKER 5 mg pantoprazole (PROTONIX) EC tablet 40 mg 40 mg, Oral, EVERY MORNING BEFORE BREAKFAST, First dose on Fri05/28/22 at 0730 $Given 05/29/2022 6:24 AM GREEN CHAIN WORKER 40 mg $Given 05/28/2022 1:54 PM GREEN CHAIN WORKER 40 mg senna-docusate (SENOKOT-S/PERICOLACE) 8.6-50 MG per [...] IV dormant line $Given 05/29/2022 1:08 PM GREEN CHAIN WORKER 3 mLs $Given 05/28/2022 11:36 PM GREEN CHAIN WORKER 3 mLs $Given 05/28/2022 8:35 PM GREEN CHAIN WORKER 3 mLs sodium zirconium cyclosilicate (LOKELMA) packet 10 g 10 g, Oral, EVERY 8 HOURS, First dose on Fri05/27/22 at 1700, Administer at least 2 hours before or 2 hours after other oral medications. Empty the entire contents of packet into at least 3 tablespoons of water, stir well and drink immediately $Given 05/28/2022 1:13 AM GREEN CHAIN WORKER 10 g $Given 05/27/2022 5:46 PM GREEN CHAIN WORKER 10 g witch kimmie-glycerin (TUCKS) pad Topical, EVERY 1 HOUR PRN, hemorrhoids, Starting on Fri05/28/22 at 0149, Apply to hemorrhoids. This product or its equivalent is supplied by [facility]. It is NOT STOCKED by Pharmacy. documented in this encounter Active and Recently Administered Medications Times are shown in GREEN CHAIN WORKER. Scheduled Medication Order 05/27/2022 05/28/2022 05/29/2022 - [...] analgesic side effects. Hold while on IV DUSTLESS OPERATOR or with regular IV opioid dosing. 1500 [...] analgesic side effects. Hold while on IV DUSTLESS OPERATOR or with regular IV opioid dosing. 1636 [...] product or its equivalent is supplied by [employer]. It is NOT STOCKED by Pharmacy. Linked [...] stools. documented in this encounter Care Teams Nursing Techn Relationship Specialty Start Date End Date No Ref-Primary, Physician PCP - General 04/14/22 documented as of this encounter
--- OUTSIDE RECORDS SUMMARY | 2023-05-12 03:44 | XMS_ITS | Encounter Summary ---
Author Name Unknown Organization [facility] Address [address] [place] [id number] Care Team Providers Care Metal Sash Setter Name Role Phone No Ref-Primary, Physician Primary [...] Coronavirus/COVID-19? No / Unsure 07/03/2022 5:40 AM RUBY ENGINEER documented as of this encounter Plan of Treatment Not on file documented as of this encounter Visit Diagnoses Not on filedocumented in this encounter Care Teams Metal Sash Setter Relationship Specialty Start Date End Date No Ref-Primary, Physician PCP - General 04/14/22 documented as of this encounter
--- OUTSIDE RECORDS SUMMARY | 2023-05-12 03:44 | XMS_ITS | Referral Summary ---
Author Name Unknown Organization [facility] Address [address] [place] [address] Care Team Providers Care Radiographer Name Role Phone No Ref-Primary, Physician Primary [...] Advance Directives For more information, please contact: [phone] Latest Code Status on File Code Status [...] with patient/ legal decision maker Care Teams Radiographer Relationship Specialty Start Date End Date No Ref-Primary, Physician PCP - General 04/14/22
--- OUTSIDE RECORDS SUMMARY | 2023-05-12 03:44 | XMS_ITS | Clinical Summary ---
Author Name Unknown Organization [facility] Address [address] [place] [address] Care Team Providers Care Agriculture Instructor Name Role Phone No Ref-Primary, Physician Primary [...] Advance Directives For more information, please contact: [phone] Latest Code Status on File Code Status [...] with patient/ legal decision maker Care Teams Agriculture Instructor Relationship Specialty Start Date End Date No Ref-Primary, Physician PCP - General 04/14/22
--- OUTSIDE RECORDS SUMMARY | 2023-05-12 03:45 | XMS_ITS | Referral Summary ---
Author Name Unknown Organization [facility] Address [address] [place] [address] Care Team Providers Care Intelligence Director Name Role Phone Elsewhere, Pcp Primary Care Provider Unavailabl e Source Comments Patient records contain information from all sites at [facility]. For routine questions regarding patient records, call [phone] during business hours, M-F 8:00 AM - 5:00 PM Central Time. Record requests for emergency care only can be directed to [phone] at any time.[facility] Encounters Date Type Department Care Team Description 04/15/2023 Orders Only Division of Nephrology and Hypertension in [place], [place] [address] [place] [address] Concetta Mejía M.D., Ph.D. 04/08/2023 Orders Only Division of Nephrology and Hypertension, [facility], in [place], [place] [address] [place] [address] Drew Mo APRN, C.N.P., M.S.N. 04/02/2023 Orders Only Pharmacy Prior Auth [id number] Marko Hager 04/01/2023 Orders Only Division of Nephrology and Hypertension, [facility], in [place], [place] [address] [place] [address] Drew Mo APRN C.N.P., M.S.N. 03/25/2023 Orders Only Division of Nephrology and Hypertension in [place], [place] [address] [place] [address] Garth Burdick Jr., D.O. 03/18/2023 Orders Only Division of Nephrology and Hypertension, [facility], in [place], [place] [address] [place] [address] Drew Mo APRN, C.N.PJuan C, M.S.N. 03/04/2023 Orders Only Division of Nephrology and Hypertension, [facility], in [place], [place] [address] [place] [address] Drew Mo APRN, C.N.P., M.S.N. 02/24/2023 Orders Only Division of Nephrology and Hypertension, [facility], in [place], [place] [address] [place] [address] Drew Mo APRN, C.N.P., M.S.N. 02/19/2023 Orders Only Division of Nephrology and Hypertension, [facility], in [place], [place] [address] [place] [address] Drew Mo APRN, C.N.P., M.S.N. 02/11/2023 Orders Only Division of Nephrology and Hypertension in [place], [place] [address] [place] [address] Concetta Mejía M.D., Ph.D. from Last 3 Months Allergies Active Allergy Reactions Criticality Noted Date Comments Adhesive Rash 11/06/2022 Diphenhydramine Hcl GI intolerance,Seizure 05/2022 Clonidine Rash Medium 12/10/2022 Coconut Oil [...] your living situation today? I have a [facility] place to live 11/14/2022 Sex and [...] on file Medical Devices Implanted Type Area Rawhide Trimmer Device Identifier Shelf Expiration Date Model / Serial / Lot Vascular Graft Vascular Graft Left: Arm Advance Directives For more information, please contact: [phone] Latest Code Status on File Code Status [...] Answer Comments Full Code: Discussed Care Teams Intelligence Director Relationship Specialty Start Date End Date Elsewhere, Pcp PCP - General Internal Medicine 02/04/23
--- OUTSIDE RECORDS SUMMARY | 2023-05-12 03:45 | XMS_ITS ---
Author Name Unknown Organization [facility] Address [address] [place] [address] Care Team Providers Care Entry Level Business Analyst Name Role Phone Elsewhere, Pcp Primary Care Provider Unavailabl e Allergies Active [...] your living situation today? I have a [facility] place to live 11/14/2022 Sex [...]
--- OUTSIDE RECORDS SUMMARY | 2023-05-12 03:45 | XMS_ITS | Clinical Summary ---
Author Name Unknown Organization [facility] Address [address] [place] [address] Care Team Providers Care Stringer Up Soldering Machine Name Role Phone Elsewhere, Pcp Primary Care Provider Unavailabl e Source Comments Patient records contain information from all sites at [facility]. For routine questions regarding patient records, call [phone] during business hours, M-F 8:00 AM - 5:00 PM Central Time. Record requests for emergency care only can be directed to [phone] at any time.[facility] Allergies Active Allergy Reactions Criticality Noted Date [...] Only Division of Nephrology and Hypertension in [place], [place] [address] [place] [address] Concetta Mejía M.D., Ph.D. 04/08/2023 Orders Only Division of Nephrology and Hypertension, [facility], in [place], [place] [address] [place] [address] Drew Mo APRN, C.N.P., M.S.N. 04/02/2023 Orders Only Pharmacy Prior Auth RO [id number] Marko Hager 04/01/2023 Orders Only Division of Nephrology and Hypertension, [facility], in [place], [place] [address] [place] [address] Drew Mo APRN, C.N.P., M.S.N. 03/25/2023 Orders Only Division of Nephrology and Hypertension in [place], [place] [address] [place] [address] Garth Burdick Jr., D.O. 03/18/2023 Orders Only Division of Nephrology and Hypertension, [facility], in [place], [place] [address] [place] [address] Drew Mo APRN, C.N.P., M.S.N. 03/04/2023 Orders Only Division of Nephrology and Hypertension, [facility], in [place], [place] [address] [place] [address] Drew Mo APRN, C.N.P., M.S.N. 02/24/2023 Orders Only Division of Nephrology and Hypertension, [facility], in [place], [place] [address] [place] [address] Drew Mo APRN, C.NRashida., M.S.N. 02/19/2023 Orders Only Division of Nephrology and Hypertension, [facility], in [place], [place] [address] [place] [address] Drew Mo APRN, C.NRashida., M.S.N. 02/11/2023 Orders Only Division of Nephrology and Hypertension in [place], [place] [address] [place] [address] Concetta Mejía M.D., Ph.D. from Last 3 Months Immunizations Name Administration [...] your living situation today? I have a [facility] place to live 11/14/2022 Sex [...] this topic Medical Devices Implanted Type Area Cyber Defense Forensics Analyst Device Identifier Shelf Expiration Date Model / Serial / Lot Vascular Graft Vascular Graft Left: Arm Advance Directives For more information, please contact: [phone] Latest Code Status on File Code Status [...] Answer Comments Full Code: Discussed Care Teams Stringer Up Soldering Machine Relationship Specialty Start Date End Date Elsewhere, Pcp PCP - General Internal Medicine 02/04/23
--- OUTSIDE RECORDS SUMMARY | 2023-05-12 03:45 | XMS_ITS | Encounter Summary ---
Author Name Unknown Organization [facility] Address [address] [place] [address] Care Team Providers Care Gas Plant Specialist Name Role Phone Elsewhere, Pcp Primary Care Provider Unavailabl e Encounter Details Date Type Department Care Team (Late st Contact Info) Description 04/02/2023 Orders Only Pharmacy Prior Auth JOHAN [phone] Marko Hager Social History Tobacco Use Types [...] living situation today? I have a [facility] place to live 11/14/2022 Sex and Gender Information Value Date Recorded Sex Assigned at Male 11/14/2022 11:03 AM CDT Gender Identity Male 11/14/2022 11:03 AM CDT Sexual Orientation Straight 11/14/2022 11 :03 AM CDT documented as of this encounter Plan of Treatment Not on file documented as of this encounter Visit Diagnoses Not on filedocumented in this encounter Care Teams Gas Plant Specialist Relationship Specialty Start Date End Date Elsewhere, Pcp PCP - General Internal Medicine 02/04/23 documented as of this encounter
--- OUTSIDE RECORDS SUMMARY | 2023-05-12 03:45 | XMS_ITS | Encounter Summary ---
Author Name Unknown Organization [facility] Address [address] [place] [address] Care Team Providers Care Assembler For Puller Over Machine Name Role Phone Elsewhere, Pcp Primary Care Provider Unavailabl e Encounter Details Date Type Department Care Team (Late st Contact Info) Description 04/08/2023 Orders Only Division of Nephrology and Hypertension, [facility], in [place], [place] [address] [place] [address] Drew Mo, HALLE, C.N.P., M.S.N. [address] [place] [address] Social History Tobacco Use Types Packs/Day Years [...] living situation today? I have a [facility] place to live 11/14/2022 Sex and Gender Information Value Date Recorded Sex Assigned at Male 11/14/2022 11:03 AM CDT Gender Identity Male 11/14/2022 11:03 AM CDT Sexual Orientation Straight 11/14/2022 11 :03 AM CDT documented as of this encounter Plan of Treatment Not on file documented as of this encounter Visit Diagnoses Not on filedocumented in this encounter Care Teams Assembler For Puller Over Machine Relationship Specialty Start Date End Date Elsewhere, Pcp PCP - General Internal Medicine 02/04/23 documented as of this encounter
--- OUTSIDE RECORDS SUMMARY | 2023-05-12 03:45 | XMS_ITS | Encounter Summary ---
Author Name Unknown Organization [facility] Address [address] [place] [address] Care Team Providers Care Lifestyle Director Name Role Phone Elsewhere, Pcp Primary Care Provider Unavailabl e Encounter Details Date Type Department Care Team (Late st Contact Info) Description 02/19/2023 Orders Only Division of Nephrology and Hypertension, [facility], in [place], [place] [address] [place] [address] Drew Mo, HALLE, C.N.P., M.S.N. [address] [place] [address] Social History Tobacco Use Types Packs/Day Years [...] your living situation today? I have a [facility] place to live 11/14/2022 Sex and Gender Information Value Date Recorded Sex Assigned at Male 11/14/2022 11:03 AM CDT Gender Identity Male 11/14/2022 11:03 AM CDT Sexual Orientation Straight 11/14/2022 11 :03 AM CDT documented as of this encounter Plan of Treatment Not on file documented as of this encounter Visit Diagnoses Not on filedocumented in this encounter Care Teams Lifestyle Director Relationship Specialty Start Date End Date Elsewhere, Pcp PCP - General Internal Medicine 02/04/23 documented as of this encounter
--- OUTSIDE RECORDS SUMMARY | 2023-05-12 03:45 | XMS_ITS ---
Author Name Unknown Organization [facility] Address [address] [place] [address] Care Team Providers Care Signal Tower Director Name Role Phone No Ref-Primary, Physician Primary Care Provider Transitional Care Management Status:Closed (Closed) Start date:07/05/2022 Enrollment date:07/05/2022 End date:07/22/2022 Close reason:Goals met Continued Care and Services Coordination
--- OUTSIDE RECORDS SUMMARY | 2023-05-12 03:45 | XMS_ITS | Encounter Summary ---
Author Name Unknown Organization [facility] Address [address] [place] [address] Care Team Providers Care Integration Engineer Name Role Phone Elsewhere, Pcp Primary Care Provider Unavailabl e Encounter Details Date Type Department Care Team (Late st Contact Info) Description 02/24/2023 Orders Only Division of Nephrology and Hypertension, [facility], in [place], [place] [address] [place] [address] Drew Mo, HALLE, C.N.P., M.S.N. [address] [place] [address] Social History Tobacco Use Types Packs/Day Years [...] your living situation today? I have a [facility] place to live 11/14/2022 Sex and Gender Information Value Date Recorded Sex Assigned at Male 11/14/2022 11:03 AM CDT Gender Identity Male 11/14/2022 11:03 AM CDT Sexual Orientation Straight 11/14/2022 11 :03 AM CDT documented as of this encounter Plan of Treatment Not on file documented as of this encounter Visit Diagnoses Not on filedocumented in this encounter Care Teams Integration Engineer Relationship Specialty Start Date End Date Elsewhere, Pcp PCP - General Internal Medicine 02/04/23 documented as of this encounter
--- OUTSIDE RECORDS SUMMARY | 2023-05-12 03:45 | XMS_ITS | Encounter Summary ---
Author Name Unknown Organization [facility] Address [address] [place] [address] Care Team Providers Care Nozzleman Name Role Phone Elsewhere, Pcp Primary Care Provider Unavailabl e Encounter Details Date Type Department Care Team (Late st Contact Info) Description 03/18/2023 Orders Only Division of Nephrology and Hypertension, [facility], in [place], [place] [address] [place] [address] Drew Mo, HALLE, C.N.P., M.S.N. [address] [place] [address] Social History Tobacco Use Types Packs/Day Years [...] your living situation today? I have a [facility] place to live 11/14/2022 Sex and Gender Information Value Date Recorded Sex Assigned at Male 11/14/2022 11:03 AM CDT Gender Identity Male 11/14/2022 11:03 AM CDT Sexual Orientation Straight 11/14/2022 11 :03 AM CDT documented as of this encounter Plan of Treatment Not on file documented as of this encounter Visit Diagnoses Not on filedocumented in this encounter Care Teams Nozzleman Relationship Specialty Start Date End Date Elsewhere, Pcp PCP - General Internal Medicine 02/04/23 documented as of this encounter
--- OUTSIDE RECORDS SUMMARY | 2023-05-12 03:45 | XMS_ITS ---
Author Name Unknown Organization [facility] Address [address] [place] [address] Care Team Providers Care Air Traffic Controller Center Name Role Phone Unavailable Unavailable Unavailable Surgery Details Not on file Complications Check Surgery Details section. Procedure Estimated Blood Loss Check Surgery Details section. Procedure Findings Check Surgery Details section. Procedure Specimens Taken Check Surgery Details section.
--- OUTSIDE RECORDS SUMMARY | 2023-05-12 03:45 | XMS_ITS | Encounter Summary ---
Author Name Unknown Organization [facility] Address [address] [place] [address] Care Team Providers Care Peer Health Promoter Name Role Phone Elsewhere, Pcp Primary Care Provider Unavailabl e Encounter Details Date Type Department Care Team (Late st Contact Info) Description 03/04/2023 Orders Only Division of Nephrology and Hypertension, [facility], in [place], [place] [address] [place] [address] Drew Mo, HALLE, C.N.P., M.S.N. [address] [place] [address] Social History Tobacco Use Types Packs/Day Years [...] living situation today? I have a [facility] place to live 11/14/2022 Sex and Gender Information Value Date Recorded Sex Assigned at Male 11/14/2022 11:03 AM CDT Gender Identity Male 11/14/2022 11:03 AM CDT Sexual Orientation Straight 11/14/2022 11 :03 AM CDT documented as of this encounter Plan of Treatment Not on file documented as of this encounter Visit Diagnoses Not on filedocumented in this encounter Care Teams Peer Health Promoter Relationship Specialty Start Date End Date Elsewhere, Pcp PCP - General Internal Medicine 02/04/23 documented as of this encounter
--- OUTSIDE RECORDS SUMMARY | 2023-05-12 03:45 | XMS_ITS | Encounter Summary ---
Author Name Unknown Organization [facility] Address [address] [place] [address] Care Team Providers Care C.O.D. Biller Name Role Phone Elsewhere, Pcp Primary Care Provider Unavailabl e Encounter Details Date Type Department Care Team (Late st Contact Info) Description 03/25/2023 Orders Only Division of Nephrology and Hypertension in [place], [place] [address] [place] [address] Garth Burdick Jr., D.O. [address] [place] [address] Social History Tobacco Use Types Packs/Day Years [...] your living situation today? I have a [facility] place to live 11/14/2022 Sex and Gender Information Value Date Recorded Sex Assigned at Male 11/14/2022 11:03 AM CDT Gender Identity Male 11/14/2022 11:03 AM CDT Sexual Orientation Straight 11/14/2022 11 :03 AM CDT documented as of this encounter Plan of Treatment Not on file documented as of this encounter Visit Diagnoses Not on filedocumented in this encounter Care Teams C.O.D. Biller Relationship Specialty Start Date End Date Elsewhere, Pcp PCP - General Internal Medicine 02/04/23 documented as of this encounter
--- OUTSIDE RECORDS SUMMARY | 2023-05-12 03:45 | XMS_ITS ---
Author Name Unknown Organization [facility] Address [address] [place] [address] Care Team Providers Care Chaplain Name Role Phone No Ref-Primary, Physician Primary Care Provider Transitional Care Management Status:Closed (Closed) Start date:05/30/2022 Enrollment date:05/31/2022 End date:06/14/2022 Close reason:Goals met Continued Care and Services Coordination
--- OUTSIDE RECORDS SUMMARY | 2023-05-12 03:45 | XMS_ITS | Encounter Summary ---
Author Name Unknown Organization [facility] Address [address] [place] [address] Care Team Providers Care Electrical Electronics Technician Name Role Phone Elsewhere, Pcp Primary Care Provider Unavailabl e Encounter Details Date Type Department Care Team (Late st Contact Info) Description 02/11/2023 Orders Only Division of Nephrology and Hypertension in [place], [place] [address] [place] [address] Concetta Mejía M.D., Ph.D. [address] [place] [address] Social History Tobacco Use Types Packs/Day Years [...] your living situation today? I have a [facility] place to live 11/14/2022 Sex and Gender Information Value Date Recorded Sex Assigned at Male 11/14/2022 11:03 AM CDT Gender Identity Male 11/14/2022 11:03 AM CDT Sexual Orientation Straight 11/14/2022 11 :03 AM CDT documented as of this encounter Plan of Treatment Not on file documented as of this encounter Visit Diagnoses Not on filedocumented in this encounter Care Teams Electrical Electronics Technician Relationship Specialty Start Date End Date Elsewhere, Pcp PCP - General Internal Medicine 02/04/23 documented as of this encounter
--- OUTSIDE RECORDS SUMMARY | 2023-05-12 03:45 | XMS_ITS | Encounter Summary ---
Author Name Unknown Organization [facility] Address [address] [place] [address] Care Team Providers Care Tinsmith Helper Name Role Phone Elsewhere, Pcp Primary Care Provider Unavailabl e Encounter Details Date Type Department Care Team ([facility] st Contact Info) Description 04/15/2023 Orders Only Division of Nephrology and Hypertension in [place], [place] [address] [place] [address] Concetta Mejía M.D., Ph.D. [address] [place] [address] Social History Tobacco Use Types Packs/Day Years [...] your living situation today? I have a [facility] place to live 11/14/2022 Sex and Gender Information Value Date Recorded Sex Assigned at Male 11/14/2022 11:03 AM CDT Gender Identity Male 11/14/2022 11:03 AM CDT Sexual Orientation Straight 11/14/2022 11 :03 AM CDT documented as of this encounter Plan of Treatment Not on file documented as of this encounter Visit Diagnoses Not on filedocumented in this encounter Care Teams Tinsmith Helper Relationship Specialty Start Date End Date Elsewhere, Pcp PCP - General Internal Medicine 02/04/23 documented as of this encounter
--- OUTSIDE RECORDS SUMMARY | 2023-05-12 03:45 | XMS_ITS | Encounter Summary ---
Author Name Unknown Organization [facility] Address [address] [place] [address] Care Team Providers Care Cracker Dough Mixer Name Role Phone Elsewhere, Pcp Primary Care Provider Unavailabl e Reason for Referral * Medication Prior Authorization - Closed Specialty Diagnoses / Procedures Referred By Mel quiroz Referred To Contact Drew Mo APRN, C.N.Corrine, M.S.N. [address] [place] [address] Referral ID Status Reason Start Date Expiration Date Visits Re quested Visits Authorized [id number] Closed 1 1 ISSION SPECIALIST Encounter Details Date Type Department Care Team (Late st Contact Info) Description 04/01/2023 Orders Only Division of Nephrology and Hypertension, [facility], in [place], [place] [address] [place] [phone] Drew Mo APRN, C.N.PJuan C, M.S.N. [address] [place] [phone] Social History Tobacco Use Types Packs/Day Years [...] your living situation today? I have a [facility] place to live 11/14/2022 Sex and Gender Information Value Date Recorded Sex Assigned at Male 11/14/2022 11:03 AM CDT Gender Identity Male 11/14/2022 11:03 AM CDT Sexual Orientation Straight 11/14/2022 11 :03 AM CDT documented as of this encounter Plan of Treatment Not on file documented as of this encounter Visit Diagnoses Not on filedocumented in this encounter Care Teams Cracker Dough Mixer Relationship Specialty Start Date End Date Elsewhere, Pcp PCP - General Internal Medicine 02/04/23 documented as of this encounter
--- OUTSIDE RECORDS SUMMARY | 2023-05-12 03:46 | XMS_ITS | Encounter Summary ---
Author Name Unknown Organization [facility] Address [address] [place] [address] Care Team Providers Care Manager Bank Name Role Phone None Reported, Pcp Primary Care Provider Unavail able Encounter Details Date Type Department Care Team ([facility] st Contact Info) Description 01/16/2023 Orders Only Division of Nephrology and Hypertension in [place], [place] [address] [place] [address] Concetta Mejía M.D., Ph.D. [address] [place] [address] Social History Tobacco Use Types Packs/Day Years [...] on filedocumented in this encounter Care Teams Manager Bank Relationship Specialty Start Date End Date None Reported, Pcp PCP - General Family Medicine 07/28/22 02/03/23 documented as of this encounter
--- OUTSIDE RECORDS SUMMARY | 2023-05-12 03:46 | XMS_ITS | Encounter Summary ---
Author Name Unknown Organization [facility] Address [address] [place] [address] Care Team Providers Care Carbon Sequestration Plant Engineer Name Role Phone Elsewhere, Pcp Primary Care Provider Unavailabl e Encounter Details Date Type Department Care Team (Late st Contact Info) Description 01/27/2023 Orders Only Division of Nephrology and Hypertension, [facility], in [place], [place] [address] [place] [address] Drew Mo, HALLE, C.N.P., M.S.N. [address] [place] [address] Social History Tobacco Use Types Packs/Day Years [...] your living situation today? I have a [facility] place to live 11/14/2022 Sex and [...] documented as of this encounter Care Teams Carbon Sequestration Plant Engineer Relationship Specialty Start Date End Date Elsewhere, Pcp PCP - General Internal Medicine 02/04/23 documented as of this encounter
--- OUTSIDE RECORDS SUMMARY | 2023-05-12 03:46 | XMS_ITS | Encounter Summary ---
Author Name Unknown Organization [facility] Address [address] [place] [id number] Care Team Providers Care Community Pharmacist Name Role Phone None Reported, Pcp Primary Care Provider Unavail able Encounter Details Date Type Department Care Team ([facility] st Contact Info) Description 12/10/2022 Orders Only Division of Nephrology and Hypertension, [facility], in [place], [place] [address] [place] [address] Drew Mo, HALLE, C.N.P., M.S.N. [address] [place] [address] Social History Tobacco Use Types Packs/Day Years [...] living situation today? I have a [facility] place to live 11/14/2022 Sex and Gender Information Value Date Recorded Sex Assigned at Male 11/14/2022 11:03 AM CDT Gender Identity Male 11/14/2022 11:03 AM CDT Sexual Orientation Straight 11/14/2022 11 :03 AM CDT documented as of this encounter Plan of Treatment Not on file documented as of this encounter Visit Diagnoses Not on filedocumented in this encounter Care Teams Community Pharmacist Relationship Specialty Start Date End Date None Reported, Pcp PCP - General Family Medicine 07/28/22 02/03/23 documented as of this encounter
--- OUTSIDE RECORDS SUMMARY | 2023-05-12 03:46 | XMS_ITS | Encounter Summary ---
Author Name Unknown Organization [facility] Address [address] [place] [address] Care Team Providers Care Bridge Rigger Name Role Phone Elsewhere, Pcp Primary Care Provider Unavailabl e Reason for Visit * Reason Comments Abdominal Pain Nausea Encounter Details Date Type Department Care Team (Late st Contact Info) Description 02/04/2023 11:19 PM CDT - 02/07/2023 2:40 PM CDT Hospital Encounter [facility], [facility], Eighth Floor [address] [place] [phone] Renay Hernandez M.D. [address] [place] [phone] Xochitl Dewitt M.D. [address] [place] [phone] Abdominal Pain (Primary Dx); Cyst Renal; Hemodialysis [...] living situation today? I have a [facility] place to live 11/14/2022 Sex and Gender [...] CDT DISCHARGE SUMMARY BRIEF OVERVIEW Discharge Hospital: [facility] Discharge Provider: No att. providers found Discharge Provider Team: Hospital Internal Medicine (HIM) - [facility] Medicine 6 ([facility]) Primary Care Providers: Elsewhere, Pcp (General) No [...] HOSPITAL COURSE Mr. Justin was hospitalized on [facility] 6 ([facility]) for evaluation and management of: Hemodialysis Status (HCC) Mr. Salbador Justin is a very pleasant 37 y.o. 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 Per chart review, patient typically receives iHD locally in [place]. He has not had a run of [...] ascites. Lactate unremarkable. He was [facility] for ongoing evaluation and management. [...] have close follow-up with his PCP. An LABEL PRINTER was called on 02/06/2023 for acute hypotension [...] care was discussed with Dr. Orta, HIM gis consultant. I saw and evaluated Salbador Justin today and provided counseling [id number] at bedside. I personally spent a total of greater than 30 minutes in counseling and coordination of care as described above to facilitate the hospital discharge. Discharge instructions were provided to the patient and caregiver(s). documented in this encounter Discharge Instructions * Discharge Instructions* Federica Bills - 02/05/2023 3:06 AM CDT You were discharged from the [facility] Medicine 6 ([facility]) Service. Please identify this service name if youcall with questions after hospitalization. * Attachments The following attachments cannot be sent through Care Everywhere. * Vitamin B-12 (Cyanocobalamin) (By mouth) (Puerto Rican) * Pantoprazole (By mouth) ([place]) * Prochlorperazine (By mouth) ([place]) documented in this encounter Medications at Time [...] (Comment) [chest pain post treatment] Other (Comment) [director validation see note, finished tx with no issues] Post-Hemodialysis Comments director validation see note, finished tx with no issues [...] be planned for Friday at [facility]. Dismissal Recommendations: -- Next hemodialysis is Friday02/08/2023 at [facility], following his Friday, , Friday dialysis [...] has been staffed with Dr. Estes, Nephrology gis consultant. For questions or concerns, please contact the Nephrology C service at [phone]. * Viola Mosher APRN C.N.P., M.S.N. - 02/06/2023 11:00 AM CDT NEPHROLOGY CONSULT SERVICE - PROGRESS NOTE Hospital Day 1 SUBJECTIVE Mr. Justin was seen and examined during hemodialysis today. He is dialyzing in the recliner. He had an episode earlier today suspected vagal vasal requiring LABEL PRINTER (see addendum below). On my return visit, [...] (Comment) [chest pain post treatment] Other (Comment) [director validation see note, finished tx with no issues] Post-Hemodialysis Comments director validation see note, finished tx with no issues [...] elevated quicklyto 166/98 (116) with his alertness. LABEL PRINTER was called. RMG was 119. Once awake and alert he complainedof abdominal pain. During LABEL PRINTER med 6 and ICU providers presented to bedside. It is thought to be vagal vasal response to starting hemodialysis as he is intravascular on the skein drier side; although no flui d was [...] has been staffed with Dr. Estes, Nephrology gis consultant. For questions or concerns, please contact the Nephrology C service at [phone]. Associated attestation - Rebecca Estes M.D. - [...] Will continue to follow. Rebecca Estes M.D. Junior Account Manager [employer] Nephrology and Hypertension * Elvira Sanchez APRN, C.N.P., D.N.P. - 02/06/2023 9:18 AM CDT T Medicine 6 ([facility]) Progress Notes SUBJECTIVE Mr. Justin was seen in the context of morning rounds. An LABEL PRINTER was called shortly before arrival toa vasovagal [...] / PLAN Mr. Justin is hospitalized on [place] [id number] ([facility]) for evaluation and management of: HemodialysisStatus (HCC) Mr. Salbador Justin is a very pleasant 37 y.o.originally from [facility] with medical comorbidities significant for HFpEF (EF 68% 2/2 HTN), ESRD secondary to hypertensive nephropathy (iHD //), and CAD (STEMI 2015) who presented to [facility] on 02/04/2023 after missing outpatient dialysis and 2 day history of diarrhea and headache. Per chart review, patient typically receives iHD locally in [place]. He has not had a run of [...] ascites. Lactate unremarkable. He was [facility] for [facility] and management. [...] has been obtained and currently pending. An LABEL PRINTER was called on 02/06/2023 during dialysis, shortly [...] diarrhea, and concern being interestingly dry. An LABEL PRINTER was called today for a vasovagal episode [...] agrees with current plan. Counseling was provided [id number] at bedside regarding the plan of care [...] if on-going nausea. Janelle Berumen, PharmMainor., R.Ph. [phone] documented in this encounter H&P Notes * Xochitl Dewitt M.D. - 02/05/2023 3:37 AM CDT T Medicine 6 ([facility]) Admission Note SUBJECTIVE CHIEF COMPLAINT / REASON FOR VISIT Missed Dialysis HISTORY OF PRESENT ILLNESS Salbador Justin is a 37 y.o. male with medical comorbidities significant for HFpEF (2/2 HTN), ESRD (iHD T//), and CAD (STEMI 2015) who presents after missing outpatient dialysis. The patient typically receives iHD locally in [place]. He has not had a run of [...] Provider/Service Referral Reason: Discharge Planning Primary Language: [place] Center Punch Operator Services Used: No Sexuality/Pronoun: Straight / Person(s) [...] insurance: MEDICARE A AND B Secondary insurance: [facility] Does the patient have any financial concerns? Yes - Cannot afford transportation. Advance Directives Legal Decision Maker: Self Advance Directives: N/A Advance Directives Status: N/A Baseline Functional Status Baseline Activities of Daily Living Mobility: Independent Dressing: Independent Feeding: Independent Bathing: Independent Grooming: Independent Toileting: Independent Behavior: Appropriate, Pleasant, Calm, Cooperative, Oriented Communication: Can write, Understands speaking, Understands Puerto [place]ican, Talks Baseline Services/Resources Primary care clinic and provider: Dr. Stef Ho, [facility] Additional Resources: Anticipated Needs Transportation set up. [...] reviewed the role of social work at [facility]. Patient expressed understanding and was agreeable to [...] to hospital admission. Patient's dialysis services at [facility] have been reconnected. Patient has reliable [...] be changed. Transportation will be provided by [employer] ) and paid by [employer]. Cait Bran, M.S.W. 02/07/2023 * Odalys Nguyen M.B., B.Ch., B.A.O. - 02/06/2023 9:22 AM CDT Rapid response team LABEL PRINTER was called for episode of unresponsiveness 37-year-old [...] for this and he saw Neurology in [place] they reported that they were unlikely to [...] case was discussed with Dr. Eckert- ICU gis consultant * Danitakang Viola HALLE Aguayo C.NHugo, [...] outpatient setting he dialyzes at [facility] dialysis unit on a Friday, , [...] has been staffed with Dr. Estes, Nephrology gis consultant. For questions or concerns, please contact the Nephrology C service at [phone]. Associated attestation - Rebecca Estes M.D. - [...] adjust EDW as tolerated. Rebecca Estes M.D. Junior Account Manager [employer] Nephrology and Hypertension documented in this encounter [...] AM CDT Care of patient transferred to ma by Dr. Fenton. Disposition pending CT results and patient's status.. VITAL SIGNS BP (!) 185/114 Pulse 93 Temp 36.8 ??C Resp 18 SpO2 98% ED Course as of 02/05/23354Feb 05, 2023 0320 I spoke with our dialysis nurse team. Unfortunately the patient does not receive his dialysis through [facility] and will need to be admitted [...] History provided by: Patient and medical records seismic interpreter needed/used: no REVIEW OF SYSTEMS Constitutional: [...] I agree with the note of the ATTENDANT ARCADE/PA. I personally performed the services described in [...] PM CDT Mr. Justin was hospitalized on [facility] Medicine 6 ([facility]) for evaluation and management of: Hemodialysis Status (HCC) Mr. Salbador Justin is a very pleasant 37 y.o. male, originally from [facility], with medical comorbidities significant for HFpEF (EF 68% 2/2 HTN), ESRD secondary to hypertensive nephropathy (iHD /), and CAD (STEMI 2015) who presented to [facility] on 02/04/2023 after missing outpatient dialysis and 2 day history of diarrhea and headache. Per chart review, patient typically receives iHD locally in [place]. He has not had a run of [...] ascites. Lactate unremarkable. He was [facility] for ongoing evaluation and management. [...] been obtained and within normal limits. An LABEL PRINTER was called on 02/06/2023 for acute hypotension [...] (ABNORMAL) Hemoglobin (02/07/2023 11:02 AM CDT) Pathologist [facility] Hemoglobin 8.2(L) 13.2 - 16.6 g/dL 02/07/2023 11:51 AM CDT DTL Blood (Blood, Venous) 02/07/2023 11:02 AM CDT 02/07/2023 11:42 AM CDT Antonieta Eckert APRN.N.P., D.N .P. LAB BLOOD ADD-ON [facility] 200 [place] [address], [facility] 200 [place] [address] * (ABNORMAL) Basic Metabolic Panel (02/07/2023 7:46 AM CDT) Pathologist [facility] Potassium, S 4.3 3.6 - [...] APRN, C.N.P., D.N .P. LAB BLOOD ADD-ON [facility] [address] [address], [facility] [place] [address] * (ABNORMAL) CBC with Differential, Blood (02/07/2023 [...] ADD-ON [facility] 200 [place] [address], [facility] DTL [facility] 200 [place] [address] [facility] [address] [place] [address] * (ABNORMAL) Hemoglobin (02/06/2023 4:59 PM CDT) Hemoglobin 8.2(L) 13.2 - 16.6 g/dL 02/06/2023 5:39 PM CDT DTL Blood (Blood, Venous) 02/06/2023 4:59 PM CDT 02/06/2023 5:29 PM CDT Elvira Sanchez APRN, C.N.P., D.N .P. LAB BLOOD ADD-ON [facility] [address] [place] [address], [facility] DTL [facility] [address] [place] [address] * Transfuse Red Blood Cells : (02/06/2023 1:13 PM CDT) Elvira Sanchez APRN, C.N.P., D.N .P. BLOOD TRANSFUSION ORDERABLES * Transfuse Red Blood Cells : , 1 Units (02/06/2023 1:13 PM CDT) Elvira Sanchez APRN, C.N.P., D.N .P. BLOOD TRANSFUSION ORDERABLES * Type and Screen (with Reflex Antibody ID) (02/06/2023 9:37 AM CDT) [facility] Pos Not applicable 02/06/2023 10:06 AM CDT STRM Antibody Screen Negative Negative 02/06/2023 10:21 AM CDT STRM Type & Screen Expiration 02/09/2023 23:59 02/06/2023 10:06 AM CDT STRM Testing Location [place] DEFAULT 02/06/2023 9:42 AM CDT STRM Blood (Blood, Venous) 02/06/2023 9:37 AM CDT 02/06/2023 9:42 AM CDT Elvira Sanchez APRN, C.N.P., D.N .P. LAB BLOOD BANK TEST ORDERABLES [facility] [address] [place] [address], [facility] STRM [facility] [address] [place] [address] * LD (Lactate Dehydrogenase) (02/06/2023 9:37 AM CDT) [facility] LD 164 122 - 222 U/L 02/06/2023 10:32 AM CDT DTL Blood (Blood, Venous) 02/06/2023 9:37 AM CDT 02/06/2023 10:15 AM CDT Kanchan Ekcert APRNNJuan CPJuan C, D.N .P. LAB BLOOD NON ADD-ON Performing Organization Address City/[facility] Co de Phone Number [facility] 200 [place] [address], [facility] DTL [facility] 200 [place] [address] * Lactate (02/06/2023 9:37 AM CDT) Pathologist [facility] Lactate, P 0.6 0.5 - 2.2 mmol/L 02/06/2023 9:52 AM CDT STMA Blood (Blood, Venous) 02/06/2023 9:37 AM CDT 02/06/2023 9:41 AM CDT Mikey Orta M.D. LAB BLOOD NON ADD -ON Performing Organization Address City/[facility] Co de Phone Number [facility] 200 [place], [place] [phone] [place] [address] [facility] 200 [place] [address] * Glucose, POCT (02/06/2023 8:04 AM CDT) [facility] Glucose, POCT, B 119 70 - 140 mg/dL 02/06/2023 8:06 AM CDT PCLX Site Capillary 02/06/2023 8:06 AM CDT PCLX Blood 02/06/2023 8:04 AM CDT 02/06/2023 8:06 AM CDT Unknown Provider LAB POCT ORDERABLES- MANUAL Performing Organization Address City/[facility]/ZIP Co de Phone Number POC [facility] [address] [place] [address], [facility] PCLX [facility] POC 200 [place] [address] * Hemoglobin A1c (02/06/2023 7:40 AM CDT) [facility] Hemoglobin A1c, B 4.6 4.0 - 5.6 % 02/06/2023 4:41 PM CDT DTL Blood (Blood, Venous) 02/06/2023 7:40 AM CDT 02/06/2023 4:23 PM CDT Kanchan Eckert APRNNHugo, PauloN Hugo LAB BLOOD ADD-ON Performing Organization Address City/[facility]/ZIP Co de Phone Number [facility] [address] [place] [address], [facility] DTL [facility] 200 [place] [address] * (ABNORMAL) SPSMA Result (02/06/2023 7:40 AM [...] CDT Mikey Orta M.D. LAB BLOOD ADD-ON [facility] [address] [place] [address], [facility] DHPM [facility] 200 [place] [address] * Folate (02/06/2023 7:40 AM CDT) Folate, S 7.3 >=4.0 mcg/L 02/06/2023 10:22 AM CDT DTL Blood (Blood, Venous) 02/06/2023 7:40 AM CDT 02/06/2023 9:10 AM CDT Antonieta Eckert APRN.N.PJuan C, D.N .P. LAB BLOOD ADD-ON [facility] [address] [place], [place] [phone] [place] [address] 200 [place] [address] * (ABNORMAL) Soluble Transferrin Receptor (sTfR) (02/06/2023 7:40 AM CDT) Soluble Transferrin Receptor (sTfR) 1.2(L) 1.8 - 4.6 mg/L 02/06/2023 9:58 AM CDT DT Comment: ----ADDITIONAL INFORMATION---- It is reported that Americans may have slightly higher values. Blood (Blood, Venous) 02/06/2023 7:40 AM CDT 02/06/2023 9:10 AM CDT Antonieta Eckert APRN.N.P., D.N .P. LAB BLOOD ADD-ON Performing Organization Address City/[facility]/ZIP Co de Phone Number [facility] [address] [place], [place] [phone] [place] [address] 200 [place] [address] * (ABNORMAL) Ferritin (02/06/2023 7:40 AM CDT) Ferritin, S 1226(H) 31 - 409 mcg/L 02/06/2023 9:58 AM CDT DT Blood (Blood, Venous) 02/06/2023 7:40 AM CDT 02/06/2023 9:10 AM CDT Elvira Sanchez APRN, Antonieta.N.P., D.N .P. LAB BLOOD ADD-ON [facility] 200 [place] [address], [facility] [address] [address] * (ABNORMAL) Iron and Total Iron-Binding Capacity (02/06/2023 7:40 AM CDT) [facility] Iron 113 50 - 150 mcg/dL 02/06/2023 9:58 AM CDT DTL Total Iron Binding Capacity 142(L) 250 - 400 mcg/dL 02/06/2023 9:58 AM CDT DTL Percent Saturation 80(H) 14 - 50 % 02/06/2023 9:58 AM CDT DTL Blood (Blood, Venous) 02/06/2023 7:40 AM CDT 02/06/2023 9:10 AM CDT Elvira Sanchez APRN, C.N.P., D.N .P. LAB BLOOD ADD-ON Performing Organization Address City/State/[facility] Co de Phone Number [address] [address], [facility] DT[address] [address] * (ABNORMAL) Hepatic Function Panel (02/06/2023 7:40 AM CDT) [facility] Bilirubin, Total, S 0.6 0.0 - 1.2 [...] M.D. LAB BLOOD ADD-ON Performing Organization Address City/[facility]/ZIP Co de Phone Number [facility] 200 [place] [address] * Magnesium (02/06/2023 7:40 AM CDT) Pathologist [facility] Magnesium, S 1.9 1.7 - 2.3 mg/dL 02/06/2023 8:49 AM CDT DTL Blood (Blood, Venous) 02/06/2023 7:40 AM CDT 02/06/2023 8:24 AM CDT Elvira Sanchez APRN, C.N.P., D.N .P. LAB BLOOD ADD-ON Performing Organization Address City/[facility]/ZIP Co de Phone Number [facility] 200 [place] [address], [place] [address] * (ABNORMAL) CBC with Differential, Blood (02/06/2023 [...] [facility] [address] [place] [address], [facility] DTL [facility] [address] [place] [address] [facility] [address] [place] [address] * (ABNORMAL) Renal Function Panel (02/06/2023 7:40 [...] APRN, C.N.P., D.N .P. LAB BLOOD ADD-ON [facility] [address] [place] [address], [facility] [address] [place] [address] * (ABNORMAL) Phosphorus Inorganic (02/06/2023 7:40 AM CDT) Phosphorus (Inorganic), S 5.9(H) 2.5 - 4.5 mg/dL 02/06/2023 8:47 AM CDT DTL Blood (Blood, Venous) 02/06/2023 7:40 AM CDT 02/06/2023 8:26 AM CDT Antonieta Eckert APRN.N.P., D.N .P. LAB BLOOD ADD-ON Performing Organization Address City/[facility] Co de Phone Number [facility] [address] [place] [address], [facility] 200 [place] [address] * Magnesium (02/06/2023 7:40 AM CDT) Pathologist [facility] Magnesium, S 1.9 1.7 - 2.3 mg/dL 02/06/2023 8:47 AM CDT DTL Blood (Blood, Venous) 02/06/2023 7:40 AM CDT 02/06/2023 8:26 AM CDT Antonieta Eckert APRN.N.P., D.N .P. LAB BLOOD ADD-ON Performing Organization Address City/[facility] Co de Phone Number [facility] 200 [place] [address], [facility] 200 [place] [address] * ECG 12 Lead (02/05/2023 7:57 PM CDT) Ventricular Rate ECG/Min 89 BPM MUSE CO Interval 142 ms MUSE QRSD Interval 100 ms MUSE QT Interval 410 ms MUSE QTC Interval 498 ms MUSE P [place] 62 degrees MUSE R [place] 57 degrees MUSE T Wave [place] 104 degrees MUSE 02/05/2023 7:57 PM CDT [...] Lugo III, CRAT Narrative Procedure Note Abdelrahman Srtickland M.D., Ph.D. - 02/06/2023 IMPRESSION: Sinus rhythm [...] NERI, C.N.P., D.N .P. LAB BLOOD ADD-ON [facility] [address] [place] [address], [facility] STMA [facility] [address] [place] [address] [facility] [address] [place] [address] * ECG 12 Lead (02/05/2023 4:42 PM CDT) Ventricular Rate ECG/Min 89 BPM MUSE CO Interval 140 ms MUSE QRSD Interval 114 ms MUSE QT Interval 412 ms MUSE QTC Interval 501 ms MUSE P [place] 72 degrees MUSE R [place] 76 degrees MUSE T Wave [place] 71 degrees MUSE 02/05/2023 4:42 PM CDT [...] D.N .P. ECG ORDERABLES Performing Organization Address [facility] de Phone Number MUSE NA * ECG 12 Lead (02/05/2023 2:14 PM CDT) Ventricular Rate ECG/Min 82 BPM MUSE CO Interval 148 ms MUSE QRSD Interval 114 ms MUSE QT Interval 406 ms MUSE QTC Interval 474 ms MUSE P [place] 67 degrees MUSE R [place] 72 degrees MUSE T Wave [place] 83 degrees MUSE 02/05/2023 2:14 PM CDT [...] C, M.S.N. ECG ORDERABLES Performing Organization Address [facility] Co de Phone Number MUSE NA * Methylmalonic Acid (MMA), Quantitative (02/05/2023 9:58 AM CDT) Methylmalonic Acid, QN, S 0.32 <=0.40 nmol/mL 02/07/2023 8:32 AM CDT DTL Comment: ----ADDITIONAL INFORMATION---- This test was developed and its performance characteristics determined by [facility] in a manner consistent with CLIA requirements. This test has not been cleared or approved by the U.S. Food and Drug Administration. Blood (Blood, Venous) 02/05/2023 9:58 AM CDT 02/06/2023 7:37 AM CDT Kanchan Eckert APRNNRashida., D.N .P. LAB BLOOD ADD-ON [facility] [address] [place] [address], [facility] DTL [address] [facility] [address] [place] [address] * (ABNORMAL) CBC with Differential, Blood (02/05/2023 [...] [facility] [address] [place] [address], [facility] STMA [facility] [address] [place] [address] [facility] [address] [place] [address] * (ABNORMAL) Basic Metabolic Panel (02/05/2023 9:58 AM CDT) [facility] Potassium, P 5.6(H) 3.6 - 5.2 mmol/L [...] .P. LAB BLOOD ADD-ON Performing Organization Address City/[facility]/ZIP Co de Phone Number [facility] [address] [facility] [address] [place] [address] * Folate (02/05/2023 9:58 AM CDT) Folate, S 9.5 >=4.0 mcg/L 02/05/2023 1: 27 PM CDT DTL Blood (Blood, Venous) 02/05/2023 9:58 AM CDT 02/05/2023 10:49 AM CDT Xochitl Dewitt M.D. LAB BLOOD ADD -ON Performing Organization Address City/[facility] Co de Phone Number [facility] [address] [place] [address], [facility] [place] [address] * (ABNORMAL) Vitamin B12 Assay (02/05/2023 9:58 [...] LAB BLOOD ADD -ON Performing Organization Address City/[facility]/ZIP Co de Phone Number [facility] [address] [place] [address], [facility] DTL [facility] 200 [place] [address] * (ABNORMAL) SPSMA Result (02/05/2023 9:58 AM [...] Xochitl Dewitt M.D. LAB BLOOD ADD -ON [facility] [address] [place] [address], [facility] DHPM [facility] 200 [place] [address] * (ABNORMAL) Reticulocyte Profile (02/05/2023 9:58 AM [...] LAB BLOOD ADD -ON Performing Organization Address City/[facility]/ZIP Co de Phone Number [facility] [address] [facility] [address] [place] [address] * (ABNORMAL) Ferritin (02/05/2023 9:58 AM CDT) Ferritin, S 1364(H) 31 - 409 mcg/L 02/05/2023 11:24 AM CDT DTL Blood (Blood, Venous) 02/05/2023 9:58 AM CDT 02/05/2023 10:49 AM CDT Xochitl Dewitt M.D. LAB BLOOD ADD -ON [facility] 200 [place], [place] [phone] [place] [address] [place] [address] * (ABNORMAL) Iron and Total Iron-Binding Capacity [...] LAB BLOOD ADD -ON Performing Organization Address City/[facility] Co de Phone Number [facility] [address] 200 [place] [address] * (ABNORMAL) Phosphorus Inorganic (02/05/2023 9:58 AM CDT) Phosphorus (Inorganic), S 8.2(H) 2.5 - 4.5 mg/dL 02/05/2023 12:19 PM CDT DTL Blood (Blood, Venous) 02/05/2023 9:58 AM CDT 02/05/2023 10:49 AM CDT Xochitl Dewitt M.D. LAB BLOOD ADD -ON Performing Organization Address [facility] Co de Phone Number [facility] 200 [place], [place] [phone] [place] [address] 200 [place] [address] * (ABNORMAL) Magnesium (02/05/2023 9:58 AM CDT) Magnesium, S 2.7(H) 1.7 - 2.3 mg/dL 02/05/2023 10:56 AM CDT DTL Blood (Blood, Venous) 02/05/2023 9:58 AM CDT 02/05/2023 10:40 AM CDT Renay Bolton M.D. LAB BLOOD ADD-ON Performing Organization Address City/[facility]/ZIP Co de Phone Number [facility] [address] [place] [phone], [facility] DTL [facility] [place] 200 [place] [address] * CT Abdomen Pelvis Angiogram with IV [...] left kidney. Candi Kanchan Conteh APRNNHugo, Eulogio.N.P. [facility] CT PROCEDURES * CT Abdomen Pelvis without [...] Nobowel obstruction. No perforation. Renay Bolton M.D. [facility] CT CO OCEDURES * CT Head without IV Contrast [...] No acute intracranial findings. Renay Bolton M.D. [facility] CT CO OCEDURES * Microscopic Manual (02/05/2023 12:47 AM [...] M.D. LAB URINE ORDERABLES Performing Organization Address [facility] Co de Phone Number [facility] [address] [place] [address], [facility] 200 [place] [address] * (ABNORMAL) Dipstick, Urine (02/05/2023 12:47 AM [...] M.D. LAB URINE ORDERABLES Performing Organization Address City/[facility] Co de Phone Number [facility] [address] [place] [address], [facility] 200 [place] [address] * pH, Urine (02/05/2023 12:47 AM CDT) pH, U 7.1 4.5 - 8.0 02/05/2023 1:3 6 AM CDT DTL Urine 02/05/2023 12:4 7 AM CDT 02/05/2023 1:09 AM CDT Bishop Melgar M.D. LAB URINE ORDERABLES Performing Organization Address [facility] Co de Phone Number [facility] 200 [place], [place] [phone] [place] [address] 200 [place] [address] * Osmolality, Urine (02/05/2023 12:47 AM CDT) Pathologist [facility] Osmolality, U 331 150 - 1150 mOsm/kg 02/05/2023 1:36 AM CDT DT Urine 02/05/2023 12:4 7 AM CDT 02/05/2023 1:09 AM CDT Bishop Melgar M.D. LAB URINE ORDERABLES Performing Organization Address [facility] Co de Phone Number [facility] 200 [place], [place] [phone] [place] [address] 200 [place] [address] * Bacterial Culture, Aerobic + Susceptibility, Urine (02/05/2023 12:47 AM CDT) [facility] Urine Culture No growth after 1 day of incubation. 02/06/2023 8:15 AM CDT [facility] Urine (Urine, Midstream) 02/05/2023 12:47 AM CDT 02/05/2023 4:25 AM CDT Comment:Specimen Source Site : Urine Bishop Melgar M.D. LAB MICROBIOLOGY - G ENERAL ORDERABLES Performing Organization Address City/[facility] Co de Phone Number [facility] [address] [place], [place] [phone] [place] [address] 200 [place] [address] * (ABNORMAL) Urinalysis with Microscopic: Urine, Midstream (02/05/2023 12:47 AM CDT) Pathologist [facility] Source Urine, Urine, Midstream 02/05/2023 1:09 AM CDT DTL Color, U Yellow 02/05/2023 1:09 AM CDT DTL Clarity, U Clear 02/05/2023 1:09 AM CDT DTL Protein, U 231(H) <26 mg/dL 02/05/2023 2:01 AM CDT DTL Protein/Osmol ality 6.98(H) <0.42 ratio 02/05/2023 2:01 AM CDT DTL Predicted 24 HR Protein, U 5998(H) <229 mg/24 h 02/05/2023 2:01 AM CDT DTL Predicted Range 1904-54050 mg/24 h 02/05/2023 2:01 AM CDT DTL Urine (Urine, Midstream) 02/05/2023 12:47 AM CDT 02/05/2023 1:09 AM CDT Bishop Melgar M.D. LAB URINE ORDERABLES Performing Organization Address City/[facility]/ZIP Co de Phone Number [facility] 200 [place], [place] [phone] [place] [address] [facility] 200 [place] [address] * Lactate (02/04/2023 10:05 PM CDT) [facility] Lactate, P 1.0 0.5 - 2.2 mmol/L 02/04/2023 10:40 PM CDT STMA Blood (Blood, Venous) 02/04/2023 10:05 PM CDT 02/04/2023 10:21 PM CDT Bishop Melgar M.D. LAB BLOOD NON ADD-ON [facility] 200 [place], [place] [phone] [place], [place] [address] [place] [address] * (ABNORMAL) CBC with Differential, Blood (02/04/2023 10:05 PM CDT) [facility] Hemoglobin 7.8(L) 13.2 - 16.6 g/dL 02/04/2023 [...] CDT Bishop Melgar M.D. LAB BLOOD ADD-ON [facility] [address] [place] [address], [facility] STMA [facility] [address] [place] [address] [facility] [address] [place] [address] * Lipase (02/04/2023 10:05 PM CDT) Lipase, S 48 13 - 60 U/L 02/04/2023 11:05 PM CDT DTL Blood (Blood, Venous) 02/04/2023 10:05 PM CDT 02/04/2023 10:50 PM CDT Bishop Melgar M.D. LAB BLOOD ADD-ON Performing Organization Address City/[facility]/ZIP Co de Phone Number [facility] [address] [place] [address], [facility] DTL [facility] [address] [place] [address] * (ABNORMAL) Hepatic Function Panel (02/04/2023 10:05 [...] CDT Bishop Melgar M.D. LAB BLOOD ADD-ON [facility] 200 [place] [address], [facility] DTL [facility] 200 [place] [address] * (ABNORMAL) Basic Metabolic Panel (02/04/2023 10:05 [...] CDT Bishop Melgar M.D. LAB BLOOD ADD-ON [facility] 200 [place] [address], [facility] STMA [facility] [address] [place] [address] * DX Chest AP or PA and [...] vasculature. No dense consolidation, pleural effusion,or pneumothorax. Bsihop Melgar M.D. IMG DIAGNOSTIC IMAGI NG PROCEDURES * ECG 12 Lead (02/04/2023 8:22 PM CDT) Ventricular Rate ECG/Min 86 BPM MUSE CO Interval 146 ms MUSE QRSD Interval 100 ms MUSE QT Interval 376 ms MUSE QTC Interval 449 ms MUSE P [place] 68 degrees MUSE R [place] 77 degrees MUSE T Wave [place] 81 degrees MUSE 02/04/2023 8:22 PM CDT [...] - 200 mg/dL 02/06/2023 5:15 PM CDT [facility] Blood 02/04/2023 2:36 PM CDT 02/06/2023 2:36 PM CDT Mikey Orta M.D. LAB BLOOD ADD-ON [facility] [address] [place] [address] [facility] [address] [place] [address] documented in this encounter Visit Diagnoses Diagnosis [...] documented as of this encounter Care Teams Bridge Rigger Relationship Specialty Start Date End Date Elsewhere, Pcp PCP - General Internal Medicine 02/04/23 documented as of this encounter
--- OUTSIDE RECORDS SUMMARY | 2023-05-12 03:46 | XMS_ITS | Encounter Summary ---
Author Name Unknown Organization [facility] Address [address] [place] [address] Care Team Providers Care Legal Practice Manager Name Role Phone None Reported, Pcp Primary Care Provider Unavail able Encounter Details Date Type Department Care Team ([facility] st Contact Info) Description 01/14/2023 Orders Only Division of Nephrology and Hypertension in [place], [place] [address] [place] [address] Concetta Mejía M.D., Ph.D. [address] [place] [address] Social History Tobacco Use Types Packs/Day Years [...] your living situation today? [facility] 11/14/2022 Sex and Gender Information Value Date Recorded Sex Assigned at Male 11/14/2022 11:03 AM CDT Gender Identity Male 11/14/2022 11:03 AM CDT Sexual Orientation Straight 11/14/2022 11 :03 AM CDT documented as of this encounter Plan of Treatment Not on file documented as of this encounter Visit Diagnoses Not on filedocumented in this encounter Care Teams Legal Practice Manager Relationship Specialty Start Date End Date None Reported, Pcp PCP - General Family Medicine 07/28/22 02/03/23 documented as of this encounter
--- OUTSIDE RECORDS SUMMARY | 2023-05-12 03:46 | XMS_ITS | Encounter Summary ---
Author Name Unknown Organization [facility] Address [address] [place] [address] Care Team Providers Care Construction Plant Operator Name Role Phone None Reported, Pcp Primary Care Provider Unavail able Encounter Details Date Type Department Care Team ([facility] st Contact Info) Description 12/17/2022 Orders Only Division of Nephrology and Hypertension, [facility], in [place], [place] [address] [place] [address] Drew Mo, HALLE, C.N.P., M.S.N. [address] [place] [address] Social History Tobacco Use Types Packs/Day Years [...] your living situation today? I have a [facility] place to live 11/14/2022 Sex and Gender Information Value Date Recorded Sex Assigned at Male 11/14/2022 11:03 AM CDT Gender Identity Male 11/14/2022 11:03 AM CDT Sexual Orientation Straight 11/14/2022 11 :03 AM CDT documented as of this encounter Plan of Treatment Not on file documented as of this encounter Visit Diagnoses Not on filedocumented in this encounter Care Teams Construction Plant Operator Relationship Specialty Start Date End Date None Reported, Pcp PCP - General Family Medicine 07/28/22 02/03/23 documented as of this encounter
--- OUTSIDE RECORDS SUMMARY | 2023-05-12 03:46 | XMS_ITS | Encounter Summary ---
Author Name Unknown Organization [facility] Address [address] [place] [address] Care Team Providers Care Deicer Kit Assembler Name Role Phone None Reported, Pcp Primary Care Provider Unavail able Encounter Details Date Type Department Care Team ([facility] st Contact Info) Description 01/17/2023 Orders Only Division of Nephrology and Hypertension in [place], [place] [address] [place] [address] Concetta Mejía M.D., Ph.D. [address] [place] [address] Social History Tobacco Use Types Packs/Day Years [...] a [facility] live 11/14/2022 Sex and Gender Information Value Date Recorded Sex Assigned at Male 11/14/2022 11:03 AM CDT Gender Identity Male 11/14/2022 11:03 AM CDT Sexual Orientation Straight 11/14/2022 11 :03 AM CDT documented as of this encounter Plan of Treatment Not on file documented as of this encounter Visit Diagnoses Not on filedocumented in this encounter Care Teams Deicer Kit Assembler Relationship Specialty Start Date End Date None Reported, Pcp PCP - General Family Medicine 07/28/22 02/03/23 documented as of this encounter
--- OUTSIDE RECORDS SUMMARY | 2023-05-12 03:46 | XMS_ITS | Encounter Summary ---
Author Name Unknown Organization [facility] Address [address] [place] [address] Care Team Providers Care Client Server Programmer Name Role Phone None Reported, Pcp Primary Care Provider Unavail able Reason for Referral * Outpatient (Routine) - Authorized Specialty Diagnoses / Procedures Referred By Elianaac t Referred To Contact Diagnoses Spells Undifferentiated Syncope Vasovagal Procedures Autonomic reflex Screen Chan Herrera M.D., Ph.D. [address] [place] [phone] [facility] Referral ID Status Reason Start Date Expiration Date V isits Requested Visits Authorized [id number] Authorized 11/21/2022 11/21/2023 1 1 Reason for Visit * Outpatient (Routine) - Closed Specialty Diagnoses / Procedures Referred By Contac t Referred To Contact Neurology Diagnoses Spells Undifferentiated Sundeep Barlow M.D. [address] [place] [phone] [facility] Referral ID Status Reason Start Date Expiration Date Visits Re quested Visits Authorized [id number] Closed 10/29/2022 10/28/2025 1 1 Encounter Details Date Type Department Care Team (Latest Contact Info) Description 11/21/2022 1:00 PM CDT Comprehensive Visit Department of Neurology in [place], [place] [address] [place] [phone] Chan Herrera M.D., Ph.D. [address] [place] [phone] Franciscolls Undifferentiated (Primary Dx); Syncope Vasovagal Social [...] your living situation today? I have a [facility] place to live 11/14/2022 Sex and [...] the impetus for him to move to [place]. He islooking forward to get in his life established in the [place]. 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 regarding the spells. He completed a basic [...] on mom's side SOCIAL HISTORY Moved to [place] February of 2022. Currently lives alone in [place], [place]. 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 Denies recent alcohol, tobacco, or other substance use. Is working on establishing a new life in the [place] after having previously lived in [facility]. REVIEW OF SYSTEMS Constitutional: - Negative for [...] in arms or legs. 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, I recommended autonomic reflex [...] PGY-2 Resident Department of Neurology Pager # [phone] 11/21/22 Orders Placed This Encounter Procedures Autonomic reflex Screen documented in this encounter Plan of Treatment Scheduled Orders Name Type Priority Associated Diagnoses Orde r Schedule Autonomic reflex Screen Neurology Routine Spells Undifferentiated Syncope Vasovagal Expected: 11/21/2022 (Approximate), Expires: 02/22/2024 documented as of this encounter Visit Diagnoses Diagnosis Spells Undifferentiated- Primary Syncope Vasovagal documented in this encounter Care Teams Client Server Programmer Relationship Specialty Start Date End Date None Reported, Pcp PCP - General Family Medicine 07/28/22 02/03/23 documented as of this encounter
--- OUTSIDE RECORDS SUMMARY | 2023-05-12 03:46 | XMS_ITS | Encounter Summary ---
Author Name Unknown Organization [facility] Address [address] [place] [address] Care Team Providers Care Set Up Technician Name Role Phone None Reported, Pcp Primary Care Provider Unavail able Reason for Referral * Outpatient (Routine) - Closed Specialty Diagnoses / Procedures Referred By Mel quiroz Referred To Contact Neurology Diagnoses Spells Undifferentiated Procedures EEG routine - awake and sleep Sundeep Barlow M.D. 200 [place] [phone] [facility] Referral ID Status Reason Start Date Expiration Date Visits Re quested Visits Authorized [id number] Closed 10/29/2022 10/29/2023 1 1 Reason for Visit * Outpatient (Routine) - Closed Specialty Diagnoses / Procedures Referred By Mel quiroz Referred To Contact Neurology Diagnoses Spells Undifferentiated Procedures EEG routine - awake and sleep Sundeep Barlow M.D. 200 [place] [address] [facility] Referral ID Status Reason Start Date Expiration Date Visits Re quested Visits Authorized [id number] Closed 10/29/2022 10/29/2023 1 1 Encounter Details Date Type Department Care Team (Latest Contact Info) Description 11/20/2022 1:42 PM CDT - 11/20/2022 11:59 PM CDT Hospital Encounter Department of Neurology in [place], [place] [address] [place] [phone] Sundeep Barlow M.D. 200 [place] [address] Franciscolls Undifferentiated Discharge Disposition: Home or Self [...] a [facility] 11/14/2022 Sex [...] Undifferentiated documented in this encounter Care Teams Set Up Technician Relationship Specialty Start Date End Date None Reported, Pcp PCP - General Family Medicine 07/28/22 02/03/23 documented as of this encounter
--- OUTSIDE RECORDS SUMMARY | 2023-05-12 03:47 | XMS_ITS | Encounter Summary ---
Author Name Unknown Organization [facility] Address [address] [place] [address] Care Team Providers Care Sales Project Administrator Name Role Phone None Reported, Pcp Primary Care Provider Unavail able Reason for Referral * Outpatient (Routine) - Closed Specialty Diagnoses / Procedures Referred By Mel quiroz Referred To Contact Neurology Diagnoses Spells Undifferentiated Sundeep Barlow M.D. [address] [place] [phone] [facility] Referral ID Status Reason Start Date Expiration Date Visits Re quested Visits Authorized [id number] Closed 10/29/2022 10/28/2025 1 1 * Outpatient (Routine) - Closed Specialty Diagnoses / Procedures Referred By Mel quiroz Referred To Contact Neurology Diagnoses Spells Undifferentiated Procedures EEG routine - awake and sleep Sundeep Barlow M.D. [address] [place] [phone] [facility] Referral ID Status Reason Start Date Expiration Date Visits Re quested Visits Authorized [id number] Closed 10/29/2022 10/29/2023 1 1 Reason for Visit * Reason Comments Seizures Encounter Details Date Type Department Care Team ([facility] st Contact Info) Description 10/29/2022 1:15 AM CDT - 10/29/2022 2:28 PM CDT Emergency [facility] Emergency Department [address] [place] [phone] Yecenia Sanchez M.D., M.S. 200 [place] [phone] Jack Velazquez M.D., Ph.D. 200 [place] [phone] Spells Neurological (HCC) (Primary Dx); Spells Undifferentiated; [...] to this Admission Follow up with a [place] provider: Clinic to decide Test Results Pending [...] Kidney Disease: The Importance of Good Nutrition (Portuguese) * Managing Non-Epileptic Seizures Adult (Portuguese) documented in this encounter Medications at Time [...] self and reviewed role of the ED manager social responsibility. Patient reported understanding and was agreeable to [...] seen for spells both by neurology at [place] as well as by HIM here. I [...] an Emergency Neurology Consult note. Please contact [phone] for any questions. documented in this encounter [...] 10/29/2022. He reports he gets dialysis in [place] however the dialysis center does not have appointments for him to have a dialysis today andhe also has difficulty with transportation. We discussed the case with social work to try to help with transportation from the ED to his home in [place] as well as from his home to the dialysis center however at this time facilitating this transportation and trying to find an opening in the dialysis center is not possible. We discussed the case with nephrology data processing consultant who agreed for dialysis in the [...] or any substances. History provided by: Patient licensed sales producer needed/used: no REVIEW OF SYSTEMS Constitutional: Negative [...] Stage (HCC) Sloane Ma M.D. Resident 10/29/22 8027 documented in this encounter Plan of Treatment [...] findings. Georgia Estrada P.A.-C., M.S. IMG CT [place] OCEDURES * HBs Antigen Scrn, S (10/29/2022 8:17 AM CDT) HBs Antigen Scrn, S Negative Negative 10/30/2022 11:22 AM CDT [facility] Blood (Blood, Venous) 10/29/2022 8:17 AM CDT 10/30/2022 7:31 AM CDT Jennifer Chaney M.D., Ph.D. LAB MICROBIOL OGY - BLOOD ORDERABLES [facility] [address] [place] [address] [facility] [address] [place] [address] * HCV Ab w/Reflex to HCV PCR, Serum (10/29/2022 8:17 AM CDT) HCV Ab, S Negative Negative 10/30/2022 11:39 AM CDT [facility] Comment:Orhggt-ui-mdbnfx rat io is <1.00. Blood (Blood, Venous) 10/29/2022 8:17 AM CDT 10/30/2022 7:31 AM CDT Jennifer Chaney M.D., Ph.D. LAB MICROBIOL OGY - BLOOD ORDERABLES Performing Organization Address [facility] de Phone Number [facility] [address] [place] [address] [place] [address] * HBs Antibody Scrn, Serum (10/29/2022 8:17 AM CDT) HBs Antibody Scrn, S CANCELED 04/08/2023 11:02 AM ICT QUALITY ASSURANCE ENGINEER [facility] Comment: REVISED RESULTS This result was cancelled. Report is cancelled due to a vendor reagent quality issue. Retesting of a new specimen is recommended if clinically indicated. ----PREVIOUSLY REPORTED ---- Positive Patient is considered to be immune to infection with HBV., Flagged as: Normal (Reported 10/30/2022 11:40) HBs Antibody, Quantitative, S CANCELED mIU/mL 04/08/2023 11:02 AM ICT QUALITY ASSURANCE ENGINEER [facility] Comment: REVISED RESULTS ----PREVIOUSLY REPORTED ---- 16.5, Flagged as: N/A (Reported 10/30/2022 11:40) Blood (Blood, Venous) 10/29/2022 8:17 AM CDT 10/30/2022 7:31 AM CDT Jennifer Chaney M.D., Ph.D. LAB MICROBIOL OGY - BLOOD ORDERABLES Performing Organization Address [facility] Co de Phone Number [facility] [address] [place] [address] [facility] [address] [place] [address] * HBc Total Ab Scrn, S (10/29/2022 8:17 AM CDT) Pathologist [facility] HBc Total Ab Scrn, S Negative Negative 10/30/2022 11:39 AM CDT [facility] Blood (Blood, Venous) 10/29/2022 8:17 AM CDT 10/30/2022 7:31 AM CDT Jennifer Chaney M.D., Ph.D. LAB MICROBIOL OGY - BLOOD ORDERABLES Performing Organization Address [facility] Co de Phone Number [facility] [address] [place] [address] [facility] [address] [place] [address] * Lactate, POCT (10/29/2022 4:22 AM CDT) Pathologist [facility] Lactate, POCT 0.71 0.50 - 2.20 mmol/L 10/29/2022 6:17 AM CDT [facility] Blood (Blood, Venous) 10/29/2022 4:22 AM CDT 10/29/2022 4:22 AM CDT Sloane Ma M.D. LAB POCT ORDERABLES - DEVICE Performing Organization Address [facility] Co de Phone Number POC [facility] [address] [place] [address], [facility] PCLX [facility] POC [address] [place] [address] * Phosphorus Inorganic (10/29/2022 3:24 AM CDT) Phosphorus (Inorganic), S 4.5 2.5 - 4.5 mg/dL 10/29/2022 3:57 AM CDT [facility] Blood (Blood, Venous) 10/29/2022 3:24 AM CDT 10/29/2022 3:45 AM CDT Carlos Canseco M.D. LAB BLOOD ADD-ON Performing Organization Address City/[facility]/ZIP Co de Phone Number [facility] 200 [place] [address], [facility] [address] [place] [address] * (ABNORMAL) Magnesium (10/29/2022 3:24 AM CDT) Pathologist [facility] Magnesium, S 2.7(H) 1.7 - 2.3 mg/dL 10/29/2022 3:57 AM CDT [facility] Blood (Blood, Venous) 10/29/2022 3:24 AM CDT 10/29/2022 3:45 AM CDT Carlos Canseco M.D. LAB BLOOD ADD-ON Performing Organization Address [facility] Co de Phone Number [facility] [address] [place] [address], [facility] [address] [place] [address] * ECG 12 Lead (10/29/2022 3:05 AM CDT) Pathologist [facility] Ventricular Rate ECG/Min 101 BPM MUSE OK Interval 152 ms MUSE QRSD Interval 106 ms MUSE QT Interval 346 ms MUSE QTC Interval 448 ms MUSE P [place] 58 degrees MUSE R [place] 77 degrees MUSE T Wave [place] 58 degrees MUSE 10/29/2022 3:05 AM CDT [...] Basic Metabolic Panel (10/29/2022 1:40 AM CDT) [facility] Potassium, P 5.1 3.6 - 5.2 mmol/L [...] CDT Sloane Ma M.D. LAB BLOOD ADD-ON [facility] 200 [place] [address], [facility] DTL [facility] [address] [place] [address] * (ABNORMAL) CBC without Differential (10/29/2022 1:40 [...] CDT Sloane Ma M.D. LAB BLOOD ADD-ON [facility] [address] [place] [address], [facility] STMA [facility] [address] [place] [address] documented in this encounter Visit Diagnoses Diagnosis [...] R.N.) documented in this encounter Care Teams Sales Project Administrator Relationship Specialty Start Date End Date None Reported, Pcp PCP - General Family Medicine 07/28/22 02/03/23 documented as of this encounter
--- OUTSIDE RECORDS SUMMARY | 2023-05-12 03:47 | XMS_ITS | Encounter Summary ---
Author Name Unknown Organization [facility] Address [address] [place] [address] Care Team Providers Care Senior Insight Manager Name Role Phone None Reported, Pcp Primary Care Provider Unavail able Reason for Referral * Outpatient (Routine) - Authorized Specialty Diagnoses / Procedures Referred By Contac t Referred To Contact Diagnoses Pain Chest Procedures NM Cardiac Perfusion Rest and Stress SPECT Drew Mo APRN C.N.P., M.S.N. 200 [place] [address] [facility] Region Referral ID Status Reason Start Date Expiration Date V isits Requested Visits Authorized [id number] Authorized 07/11/2022 07/11/2023 6 6 Reason for Visit * Outpatient (Routine) - Authorized Specialty Diagnoses / Procedures Referred By Contac t Referred To Contact Diagnoses Pain Chest Procedures NM Cardiac Perfusion Rest and Stress SPECT Drew Mo APRN, C.N.P., M.S.N. 200 [place] [address] [facility] Region Referral ID Status Reason Start Date Expiration Date V isits Requested Visits Authorized [id number] Authorized 07/11/2022 07/11/2023 6 6 Encounter Details Date Type Department Care Team (Latest Contact Info) Description 11/04/2022 7:55 AM CDT - 11/04/2022 8:27 AM CDT Hospital Encounter Department of Radiology in [place], [place] [address] [place] [address] Drew Mo APRN, C.N.P., M.S.N. [address] [place] [address] Pain Chest Discharge Disposition: Home or Self [...] a [facility] place to live 11/02/2022 Sex and [...] Drew Mo APRN C.N.P., M.S.N. [facility] CPXi MALGORZATA NA documented in this encounter Visit [...] Hand documented in this encounter Care Teams Senior Insight Manager Relationship Specialty Start Date End Date None Reported, Pcp PCP - General Family Medicine 07/28/22 02/03/23 documented as of this encounter
--- OUTSIDE RECORDS SUMMARY | 2023-05-12 03:47 | XMS_ITS | Encounter Summary ---
Author Name Unknown Organization [facility] Address [address] [place] [address] Care Team Providers Care Self Rising Flour Mixer Name Role Phone None Reported, Pcp Primary Care Provider Unavail able Encounter Details Date Type Department Care Team (Latest Contact Info) Description 10/16/2022 Clinical Communication Maco ferreira [facility] in [place], [place] [address] [place] [address] Teresita Calix M.D. [address] [place] [address] Social History Tobacco Use Types Packs/Day Years [...] on filedocumented in this encounter Care Teams Self Rising Flour Mixer Relationship Specialty Start Date End Date None Reported, Pcp PCP - General Family Medicine 07/28/22 02/03/23 documented as of this encounter
--- OUTSIDE RECORDS SUMMARY | 2023-05-12 03:47 | XMS_ITS | Encounter Summary ---
Author Name Unknown Organization [facility] Address [address] [place] [address] Care Team Providers Care Threading Machine Tender Name Role Phone None Reported, Pcp Primary Care Provider Unavail able Reason for Visit * Reason Onset Date Comments Txp Initial RN Phone Interview 10/30/2022 * Appointment Request (Routine) - Closed Specialty Diagnoses / Procedures Referred By Contac t Referred To Contact Transplant Diagnoses [id number] Please see [id number] for updated notes and approval. Procedures [id number] Please see [id number] for updated notes and approval. [facility] [address] [place] [phone] Referral ID Status Reason Start Date Expiration Date Visits Re quested Visits Authorized [id number] Closed 10/10/2022 10/10/2023 1 1 Encounter Details Date Type Department Care Team (Latest Contact Info) Description 10/30/2022 10:30 AM CDT Clinical Communication Maco ferreira [facility] in [place], [place] [address] [place] [phone] Jasmin Candelario, RJuan CNJuan C [address] [place] [phone] Txp Initial RN Phone Interview Social History [...] your living situation today? I have a [facility] place to live 11/14/2022 Sex [...] Received/ Date in CE Outside Facility [] 6955 Form * [] Dialysis Run Sheets * Last 3 Runs [] [x] Colonoscopy with Pathology * Most Recent within 10 years [] 10/30 11/06 [place], [place] [phone] [] Pap Smear * Most Recent within [...] EGD w/Pathology Most Recent [] 10/30 11/06 [place], [place] [phone] Both 2017 and 2020 [x] History & Physical * [x] Physician Consultation * Last 12 Months [] 10/30 10/31 [place], [place] [phone] Will want records from 2020 when we underwent transplant eval [] Labs Last 3 (within 12 Months) [] [] Medication List Most Recent (within 12 Months) [] [] [facility] Biopsy Report [] Biopsy Slides Most Recent [] [] [facility] Pathology Report Most Recent [] [] Office Notes Last 12 Months [] [] Pathology Reports Most Recent [] [] Pulmonary Function Tests Last 12 Months [] [] Psycho-Social Assessments Last 12 Months [] [] Ultrasound [] Abdomen [] Renal Last 12 Months [] [] Vaccinations All [] Cardiac Testing:Will the patient see a Caretaker for Evaluation: YES If yes, Coronary Angiogram films & report needed. Last 5 years [] 10/30 10/31 [place], [place] [phone] Or [facility] [phone] [] Cardiac Stress Test Last 12 Months [...] to moderately controlled on 4 meds. H/o GA [id number]. He has been in ED 9 times in last 4 months and notes do state noncompliance with meds. Will have cardiac workup at [facility] on 11/04/2022. Also patient is supposed to be on meds for seizures but stopped them after one month stating he ???didn't feel like they helped?? . Was [place] for [place] [facility] [facility] [place] but later denied d/t noncompliance with dialysis. [...] Received/ Date in CE Outside Facility [] 6136 Form * [] Dialysis Run Sheets * Last 3 Runs [] [x] Colonoscopy with Pathology * Most Recent within 10 years [] [place], [place] [phone] [] Pap Smear * Most Recent within 3 years [] [] Mammogram * Most Recent [] [] Bladder Study Last 12 Months [] [] CT/MRI of: []Abdomen []Pelvis [] Chest [] Other: Last 12 Months [] [] Cystoscopy Last 12 Months [] [] Diagnostic Imaging Reports Last 12 Months [] [] Discharge Summaries Last 12 Months [] [x] EGD w/Pathology Most Recent [] [place], [place] [phone] Both 2017 and 2020 [x] History & Physical * [x] Physician Consultation * Last 12 Months [] [place], [place] [phone] Will want records from 2020 when we underwent transplant eval [] Labs Last 3 (within 12 Months) [] [] Medication List Most Recent (within 12 Months) [] [] [facility] Biopsy Report [] Biopsy Slides Most Recent [] [] [facility] Pathology Report Most Recent [] [] Office Notes Last 12 Months [] [] Pathology Reports Most Recent [] [] Pulmonary Function Tests Last 12 Months [] [] Psycho-Social Assessments Last 12 Months [] [] Ultrasound [] Abdomen [] Renal Last 12 Months [] [] Vaccinations All [] Cardiac Testing:Will the patient see a Caretaker for Evaluation: YES If yes, Coronary Angiogram films & report needed. Last 5 years [] [place], [place] [phone] Or [facility] [phone] [] Cardiac Stress Test Last 12 Months [...] Yes Informed of COVID vaccine recommendation: Yes Typesetting Supervisor Utilized: No Phone Screen Type: Kidney Completed [...] d/t depression in 2020) If Yes, where: [place] [facility] Currently Listed at another Transplant Center: No If yes: Center Name: Coordinator Name: Contact Number: Kidney History: Anuric: No Oliguric (decreased urine output): Yes Dialysis: Hemodialysis Dialysis Schedule Date Dialysis [facility]ed [facility]ts and completes in entirety unless in hospital and then dialyzes in hospital Kidney Stones: Yes thinks maybe had one one time in 10/2021, didn't go to doctor UTI History: No Diabetes History: NA Colonoscopy: Yes Facility [facility] Date 2017 due to ulcers EGD: Yes [facility] Date 2017 and 2020 Mammo: NA Pap: NA Cardiovascular History: HTN: Yes Moderately controlled on 4 meds GA: Yes 2015 due to high blood pressure CVA/TIA: No CHF: Yes CAD: No CABG: No Arrhythmias: No Implanted Devices: No PVD: No Amputations: No Blood Clotting disorders: No DVT/PE: No Pt on Anticoagulation: No Additional cardiac testing? ECG CXR Where was the test performed? Mar[facility] - will have more cardiac testing on 11/04/2022 [facility] Medical History: Abdominal Aortic Aneurysm: No Abdominal [...] Information for Kidney, Kidney/Pancreas, andPancreas Transplant Candidates [id number] was reviewed with the patient via telephone call. Confirmed Salbador Justin's interest in pursuing a kidney transplant evaluation at [facility]. The patient verbalized understanding of the information and was given the opportunity to ask questions which were answered to Salbador Justin's satisfaction. Patient agrees to proceed with the transplant evaluation and consents to HIV testing. documented in this encounter Plan of Treatment Not on file documented as of this encounter Visit Diagnoses Not on filedocumented in this encounter Care Teams Threading Machine Tender Relationship Specialty Start Date End Date None Reported, Pcp PCP - General Family Medicine 07/28/22 02/03/23 documented as of this encounter
--- OUTSIDE RECORDS SUMMARY | 2023-05-12 03:47 | XMS_ITS | Encounter Summary ---
Author Name Unknown Organization [facility] Address [address] [place] [address] Care Team Providers Care Clinical Information Systems Director Name Role Phone None Reported, Pcp Primary Care Provider Unavail able Reason for Visit * Reason Comments Chest Pain Vomiting Encounter Details Date Type Department Care Team (Late st Contact Info) Description 10/19/2022 3:40 AM CDT - 10/20/2022 3:22 PM CDT Emergency [facility], [facility], Fourth Floor [address] [place] [address] [phone] Josselin Balderas M.D., M.S. [address] [place] [address] [phone] Johnnie Castillo M.D. [address] [place] [phone] Pain Chest (Primary Dx); Dyspnea; Failure Renal [...] No address on file Discharge Provider Team: [facility] Internal Medicine ([facility]) [facility] Medicine 7 ([facility]) Primary Care Provider Phone Number: None Primary [...] via left AVF, STEMI (diagnosed 2016 in [place]), epilepsy(?) who presents to the emergency department [...] evaluated Salbador Justin today and provided counseling [id number] at bedside. I personally spent a total [...] SUBJECTIVE Social work coordinated discharge transportation with [employer] [phone] for a 2:30 pm room leaf size picker time. OBJECTIVE Patient to discharge home. [...] next dialysis session will be in the [facility] unit on 10/22/2022. Discharge Recommendations: -- The [...] staffed with Dr. Angelia Skelton MD, Nephrology executive consultant. For questions or concerns, please contact Nephrology A MEDICAL OFFICE RECEPTIONIST ASSISTANT/PA pager ([phone]). * Isiah Shankar, Pharm.D., R.Ph. - 10/19/2022 [...] VTE prophylaxis: Heparin SUBQ Isiah Shankar PharmD, [facility] * Isiah Shankar, Pharm.D., R.Ph. - 10/19/2022 8:21 AM CDT Images from the original note were not included. Admission Medication History Note Prior to Admission Medications Med List Status: Pharmacy Complete Set By: Isiah Shankar, Pharm.D., R.Ph. at 10/19/2022 8:13 AM Status Comment 10/19/2022 8:[address] [facility] outpatient pharmacy filling records Taking? Last [...] M.D., Ph.D. - 10/19/2022 5:29 AM CDT [facility] Medicine 7 ([facility]) Admission Note SUBJECTIVE CHIEF COMPLAINT / REASON FOR VISIT Chest pain HISTORY OF PRESENT ILLNESS Salbador Justin is a 37 y.o. male with h/o CHF with preserved EF due to HTN, ESRD due to HTN on HD via left AVF, STEMI (diagnosed 2016 in [place]), epilepsy(?) not on medications who presents with [...] Fellow, Division of Gastroenterology and Hepatology Pager [phone] 10/19/2022 documented in this encounter Consult Notes [...] Friday, , and Friday schedule in the [facility] dialysis unit. His last dialysis session [...] staffed with Dr. Angelia Skelton MD, Nephrology executive consultant. For questions or concerns, please contact Nephrology A MEDICAL OFFICE RECEPTIONIST ASSISTANT/PA pager ([phone]). Associated attestation - Angelia Skelton M.D. - [...] via left AVF, STEMI (diagnosed 2016 in [place]), epilepsy(?) who presents to the emergency department [...] Antigen Scrn, S (10/20/2022 8:23 AM CDT) [facility] HBs Antigen Scrn, S Negative Negative 10/21/2022 1:40 PM CDT [facility] Blood (Blood, Venous) 10/20/2022 8:23 AM CDT 10/21/2022 7:21 AM CDT Antonieta Blanchard APRN.N.P., M.S.N. LAB MICROBIOLOGY - BLOOD ORDERABLES [facility] [address] [place] [address] [facility] [address] [place] [address] * HCV Ab w/Reflex to HCV PCR, Serum (10/20/2022 8:23 AM CDT) [facility] HCV Ab, S Negative Negative 10/21/2022 1:57 PM CDT [facility] Comment:Bnolhd-nc-fskejj rat io is <1.00. Blood (Blood, Venous) 10/20/2022 8:23 AM CDT 10/21/2022 7:21 AM CDT Sameer Huggins APRN, C.N.P., M.S.N. LAB MICROBIOLOGY - BLOOD ORDERABLES Performing Organization Address [facility] Co de Phone Number [facility] [address] [place] [address] [place] [address] * HBs Antibody Scrn, Serum (10/20/2022 8:23 AM CDT) [facility] HBs Antibody Scrn, S CANCELED 04/07/2023 11:32 AM UTILITY MANAGER [facility] Comment: REVISED RESULTS This result was cancelled. Report is cancelled due to a vendor reagent quality issue. Retesting of a new specimen is recommended if clinically indicated. ----PREVIOUSLY REPORTED ---- Positive Patient is considered to be immune to infection with HBV., Flagged as: Normal (Reported 10/21/2022 13:38) HBs Antibody, Quantitative, S CANCELED mIU/mL 04/07/2023 11:33 AM UTILITY MANAGER [facility] Comment: REVISED RESULTS ----PREVIOUSLY REPORTED ---- 17.1, Flagged as: N/A (Reported 10/21/2022 13:38) Blood (Blood, Venous) 10/20/2022 8:23 AM CDT 10/21/2022 7:35 AM CDT Sameer Huggins APRN, C.N.P., M.S.N. LAB MICROBIOLOGY - BLOOD ORDERABLES Performing Organization Address [facility] Co de Phone Number [facility] [address] [place] [address] [facility] [address] [place] [address] * HBc Total Ab Scrn, S (10/20/2022 8:23 AM CDT) [facility] Total Ab Scrn, S Negative Negative 10/21/2022 1:31 PM CDT [facility] Blood (Blood, Venous) 10/20/2022 8:23 AM CDT 10/21/2022 7:35 AM CDT Antonieta Blanchard APRN.N.PJuan C, M.S.N. LAB MICROBIOLOGY - BLOOD ORDERABLES Performing Organization Address City/[facility]/ZIP Co de Phone Number [facility] [address] [place] [address] [facility] [address] [place] [address] * Magnesium (10/20/2022 6:34 AM CDT) Pathologist [facility] Magnesium, S 2.0 1.7 - 2.3 mg/dL 10/20/2022 8:02 AM CDT [facility] Blood (Blood, Venous) 10/20/2022 6:34 AM CDT 10/20/2022 7:31 AM CDT Chan Casanova APRN, C.N.P., D.N.P. LA B BLOOD ADD-ON Performing Organization Address City/[facility]/ZIP Co de Phone Number [facility] [address] [place], [place] [phone] [place] [address] [facility] [address] [place] [address] * (ABNORMAL) Renal Function Panel (10/20/2022 6:34 [...] APRN, C.N.P., D.N.P. LA B BLOOD ADD-ON [facility] [address] [place] [address], [facility] [address] [place] [address] * (ABNORMAL) Troponin T, 2h/6h, 5th Gen [...] AM CDT 10/19/2022 7:02 AM CDT Narrative [facility] - 10/19/2022 7:29 AM CDT Specimen Information: Specimen ID: [id number] Specimen Type: Blood Specimen Collection Start Date: 10/19/2022 ??6:40 AM Specimen Received Date: 10/19/2022 ??7:02 AM Specimen ID: [id number] Specimen Type: Blood Macros Garcia M.D. LAB BLOOD TRO PONIN [facility] [address] [facility] 200 [place] [address] * Sedimentation Rate (10/19/2022 4:48 AM CDT) Sedimentation Rate, B 2 2 - 12 mm/h 10/19/2022 5:58 AM CDT D[facility] Blood (Blood, Venous) 10/19/2022 4:48 AM CDT 10/19/2022 4:57 AM CDT Marcos Garcia M.D. LAB BLOOD ADD -ON [facility] [address] [place] [address] * CRP (C-Reactive Protein) (10/19/2022 4:48 AM CDT) C-Reactive Protein (CRP), S 3.5 <5.0 mg/L 10/19/2022 5:24 AM CDT [facility] Blood (Blood, Venous) 10/19/2022 4:48 AM CDT 10/19/2022 5:08 AM CDT Marcos Garcia M.D. LAB BLOOD ADD -ON [facility] [address] [place] [address], [place] [facility] [address] [place] [address] * DX Chest AP or PA and [...] M.S.N. LAB BLOOD ADD-ON Performing Organization Address City/[facility] Co de Phone Number [facility] 200 [place] [address], [facility] 200 [place] [address] * Phosphorus Inorganic (10/19/2022 4:46 AM CDT) Pathologist [facility] Phosphorus (Inorganic), S 3.4 2.5 - 4.5 mg/dL 10/19/2022 9:09 AM CDT DT Blood (Blood, Venous) 10/19/2022 4:46 AM CDT 10/19/2022 8:53 AM CDT Kanchan Blanchard APRNNRashida., M.S.N. LAB BLOOD ADD-ON Performing Organization Address [facility] Co de Phone Number [facility] 200 [place] [address], [facility] 200 [place] [address] * (ABNORMAL) Troponin T, Baseline, 5th gen (10/19/2022 4:25 AM CDT) Pathologist [facility] Troponin T, Baseline, 5th gen 78(H) <=15 ng/L 10/19/2022 4:50 AM CDT [facility] Blood (Blood, Venous) 10/19/2022 4:25 AM CDT 10/19/2022 4:30 AM CDT Marcos Garcia M.D. LAB BLOOD TRO PONIN [facility] 200 [place] [address], [facility] 200 [place] [address] * (ABNORMAL) NT-Pro B-Type Natriuretic Peptide (BNP) (10/19/2022 4:25 AM CDT) NT-Pro BNP 6551(H) <79 pg/mL 10/19/2022 4:58 AM CDT [facility] Comment: NT-proBNP values less than [...] LAB BLOOD ADD -ON Performing Organization Address City/[facility]/ZIP Co de Phone Number [facility] 200 [place] [address], [facility] 200 [place] [address] * (ABNORMAL) Basic Metabolic Panel (10/19/2022 4:25 AM CDT) Pathologist [facility] Potassium, P 5.2 3.6 - 5.2 mmol/L [...] Marcos Garcia M.D. LAB BLOOD ADD -ON [facility] [place] [address], [facility] 200 [place] [address] * (ABNORMAL) CBC with Differential, Blood (10/19/2022 [...] Marcos Garcia M.D. [place] [address], [place] [address] * ECG 12 Lead (10/19/2022 3:56 AM CDT) Ventricular Rate ECG/Min 114 BPM MUSE [place] Interval 144 ms MUSE QRSD Interval 88 ms MUSE QT Interval 336 ms MUSE QTC Interval 463 ms MUSE P [place] 50 degrees MUSE R [place] 68 degrees MUSE T Wave [place] 50 degrees MUSE 10/19/2022 3:56 AM CDT [...] older documented in this encounter Care Teams Clinical Information Systems Director Relationship Specialty Start Date End Date None Reported, Pcp PCP - General Family Medicine 07/28/22 02/03/23 documented as of this encounter
--- OUTSIDE RECORDS SUMMARY | 2023-05-12 03:47 | XMS_ITS | Encounter Summary ---
Author Name Unknown Organization [facility] Address [address] [place] [address] Care Team Providers Care Ship Washer Name Role Phone None Reported, Pcp Primary Care Provider Unavail able Encounter Details Date Type Department Care Team (Late st Contact Info) Description 10/08/2022 Orders Only Division of Nephrology and Hypertension in [place], [place] [address] [place] [phone] Mimi Springer M.D. [address] [place] [phone] Social History Tobacco Use Types Packs/Day Years [...] on filedocumented in this encounter Care Teams Ship Washer Relationship Specialty Start Date End Date None Reported, Pcp PCP - General Family Medicine 07/28/22 02/03/23 documented as of this encounter
--- OUTSIDE RECORDS SUMMARY | 2023-05-12 03:47 | XMS_ITS | Encounter Summary ---
Author Name Unknown Organization [facility] Address [address] [place] [address] Care Team Providers Care Smelter Operator Name Role Phone None Reported, Pcp Primary Care Provider Unavail able Reason for Visit * Reason Comments Chest Pain * Outpatient (Routine) - Closed Specialty Diagnoses / Procedures Referred By Contact Referred To Contact Cardiovascular Diseases / Cardiovascular Disease Diagnoses Pain Chest Drew Mo APRN C.N.P., M.S.N. [address] [place] [phone] [facility] Region Referral ID Status Reason Start Date Expiration Date Visits Re quested Visits Authorized [id number] Closed 07/11/2022 07/11/2023 1 1 Encounter Details Date Type Department Care Team (Late st Contact Info) Description 11/06/2022 10:30 AM CDT Comprehensive Visit Department of Cardiovascular Diseases in [place], [place] [address] [place] [phone] Sergei Ibrahim M.D. [address] [place] [phone] Pain Chest Social History Tobacco Use Types [...] your living situation today? I have a [facility] place to live 11/14/2022 Sex and [...] understand that last February he moved to [place] from [facility] in the setting of a challenging social situation in [place]. He does have a history of uncontrolled [...] this. He is currently living alone in [place]. He does not have much social support here in [place] yet. He has access to social work professor via dialysis and is planning to arrange [...] SOCIAL HISTORY Ms. Justin currently lives in [place], [place], by himself. He has historically worked [...] absolute pleasure meeting and visiting with Mr. uJstin in the [facility] today. I took [...] Sergei Ibrahim M.D. CT CT Job ID: [id number] documented in this encounter Plan of Treatment Not on file documented as of this encounter Visit Diagnoses Diagnosis Pain Chest documented in this encounter Care Teams Smelter Operator Relationship Specialty Start Date End Date None Reported, Pcp PCP - General Family Medicine 07/28/22 02/03/23 documented as of this encounter
--- OUTSIDE RECORDS SUMMARY | 2023-05-12 03:47 | XMS_ITS | Encounter Summary ---
Author Name Unknown Organization [facility] Address [address] [place] [address] Care Team Providers Care Motor Home Electrical Foreman Name Role Phone None Reported, Pcp Primary Care Provider Unavail able Reason for Visit * Outpatient (Routine) - Authorized Specialty Diagnoses / Procedures Referred By Mel t Referred To Contact Diagnoses Pain Chest Procedures NM Cardiac Perfusion Rest and Stress SPECT Drew Mo APRN C.N.P., M.S.N. [address] [place] [phone] [facility] Region Referral ID Status Reason Start Date Expiration Date V isits Requested Visits Authorized [id number] Authorized 07/11/2022 07/11/2023 6 6 Encounter Details Date Type Department Care Team (Latest Contact Info) Description 11/04/2022 8:28 AM CDT - 11/04/2022 9:46 AM CDT Hospital Encounter Department of Radiology in [place], [place] [address] [place] [phone] Drew Mo APRN, C.N.P., M.S.N. [address] [place] [phone] Discharge Disposition: Home or Self Care Social [...] your living situation today? I have a [facility] place to live 11/02/2022 Sex [...] For Result Drew Mo APRN, C.N.P., M.S.N. [facility] [employer] NA documented in this encounter Visit Diagnoses Not on filedocumented in this encounter Care Teams Motor Home Electrical Foreman Relationship Specialty Start Date End Date None Reported, Pcp PCP - General Family Medicine 07/28/22 02/03/23 documented as of this encounter
--- OUTSIDE RECORDS SUMMARY | 2023-05-12 03:47 | XMS_ITS | Encounter Summary ---
Author Name Unknown Organization [facility] Address [address] [place] [address] Care Team Providers Care Monitoring Manager Name Role Phone None Reported, Pcp Primary Care Provider Unavail able Encounter Details Date Type Department Care Team ([facility] st Contact Info) Description 11/12/2022 Orders Only Division of Nephrology and Hypertension in [place], [place] [address] [place] [phone] Concetta Mejía M.D., Ph.D. [address] [place] [phone] Social History Tobacco Use Types Packs/Day Years [...] your living situation today? I have a [facility] place to live 11/02/2022 Sex and Gender Information Value Date Recorded Sex Assigned at Male 11/14/2022 11:03 AM CDT Gender Identity Male 11/14/2022 11:03 AM CDT Sexual Orientation Straight 11/14/2022 11 :03 AM CDT documented as of this encounter Plan of Treatment Not on file documented as of this encounter Visit Diagnoses Not on filedocumented in this encounter Care Teams Monitoring Manager Relationship Specialty Start Date End Date None Reported, Pcp PCP - General Family Medicine 07/28/22 02/03/23 documented as of this encounter
--- OUTSIDE RECORDS SUMMARY | 2023-05-12 03:47 | XMS_ITS | Encounter Summary ---
Author Name Unknown Organization [facility] Address [address] [place] [address] Care Team Providers Care Transport Medic Name Role Phone None Reported, Pcp Primary Care Provider Unavail able Encounter Details Date Type Department Care Team ([facility] st Contact Info) Description 10/31/2022 Orders Only Division of Nephrology and Hypertension, [facility], in [place], [place] [address] [place] [phone] Drew Mo, HALLE, C.N.P., M.S.N. [address] [place] [phone] Social History Tobacco Use Types Packs/Day Years [...] your living situation today? I have a [facility] place [facility] live 11/14/2022 Sex and Gender Information Value Date Recorded Sex Assigned at Male 11/14/2022 11:03 AM CDT Gender Identity Male 11/14/2022 11:03 AM CDT Sexual Orientation Straight 11/14/2022 11 :03 AM CDT documented as of this encounter Plan of Treatment Not on file documented as of this encounter Visit Diagnoses Not on filedocumented in this encounter Care Teams Transport Medic Relationship Specialty Start Date End Date None Reported, Pcp PCP - General Family Medicine 07/28/22 02/03/23 documented as of this encounter
--- OUTSIDE RECORDS SUMMARY | 2023-05-12 03:47 | XMS_ITS | Encounter Summary ---
Author Name Unknown Organization [facility] Address [address] [place] [address] Care Team Providers Care Vanstone Machine Operator Name Role Phone None Reported, Pcp Primary Care Provider Unavail able Reason for Visit * Outpatient (Routine) - Authorized Specialty Diagnoses / Procedures Referred By Mel t Referred To Contact Diagnoses Pain Chest Procedures NM Cardiac Perfusion Rest and Stress SPECT Drew Mo APRN C.N.P., M.S.N. [address] [place] [phone] [facility] Region Referral ID Status Reason Start Date Expiration Date V isits Requested Visits Authorized [id number] Authorized 07/11/2022 07/11/2023 6 6 Encounter Details Date Type Department Care Team (Latest Contact Info) Description 11/04/2022 9:47 AM CDT - 11/04/2022 11:59 PM CDT Hospital Encounter Department of Cardiovascular Diseases in [place], [place] [address] [place] [phone] Drew Mo APRN, C.N.P., M.S.N. [address] [place] [phone] Discharge Disposition: Home or Self Care Social [...] your living situation today? I have a [facility] place to live 11/02/2022 Sex and Gender [...] Hand documented in this encounter Care Teams Vanstone Machine Operator Relationship Specialty Start Date End Date None Reported, Pcp PCP - General Family Medicine 07/28/22 02/03/23 documented as of this encounter
--- OUTSIDE RECORDS SUMMARY | 2023-05-12 03:47 | XMS_ITS | Encounter Summary ---
Author Name Unknown Organization [facility] Address [address] [place] [address] Care Team Providers Care Site Safety Representative Name Role Phone None Reported, Pcp Primary Care Provider Unavail able Encounter Details Date Type Department Care Team (Late st Contact Info) Description 10/15/2022 Orders Only Division of Nephrology and Hypertension, [facility], in [place], [place] [address] [place] [phone] Drew Mo, HALLE, C.N.P., M.S.N. [address] [place] [phone] Social History Tobacco Use Types Packs/Day Years [...] on filedocumented in this encounter Care Teams Site Safety Representative Relationship Specialty Start Date End Date None Reported, Pcp PCP - General Family Medicine 07/28/22 02/03/23 documented as of this encounter
--- OUTSIDE RECORDS SUMMARY | 2023-05-12 03:48 | XMS_ITS | Encounter Summary ---
Author Name Unknown Organization [facility] Address [address] [place] [address] Care Team Providers Care Highway Maintenance Supervisor Name Role Phone Unavailable Primary Care Provider Unavailabl e Encounter Details Date Type Department Care Team (Late st Contact Info) Description 07/11/2022 Orders Only Department of Cardiovascular Diseases in [place], [place] [address] [phone] Dagoberto Rashid, HALLE, C.N.P. [address], [place] [phone] Social History Tobacco Use Types Packs/Day Years [...]
--- OUTSIDE RECORDS SUMMARY | 2023-05-12 03:48 | XMS_ITS | Encounter Summary ---
Author Name Unknown Organization [facility] Address [address] [place] [address] Care Team Providers Care City Manager Name Role Phone None Reported, Pcp Primary Care Provider Unavail able Reason for Visit * Reason Comments Chest Pain Pain With Breathing Encounter Details Date Type Department Care Team (Late st Contact Info) Description 09/22/2022 9:00 PM CDT - 09/23/2022 1:[address] [facility] Emergency Department [address] [phone] Mike Luz M.D., M.B.A. [address] [place] [phone] Carlos Brown M.D., M.S. [address] [place] [phone] Pain Chest (Primary Dx); Shortness Of Breath [...] Care Everywhere. * Nonspecific Chest Pain Adult (Fijian) documented in this encounter Medications at Time [...] to go to the below address in [facility]. OBJECTIVE Emergency Department Social work was consulted to assist with transportation back to request of [address] [facility]. Social work arranged transportation with [employer] (phone: [phone]). ASSESSMENT / PLAN ASSESSMENT Transport resources were explored and arranged to assist with the patient's needs. The patient appears to have insight into their needs at this time. PLAN 1. [employer] (phone: [phone]) to provide return transportation to patient's requested dropoff. 2. Please contact social work if further supportive or dismissal needs arise. Cait Galeana, M.S.W. 09/23/2022 documented in this encounter ED Notes * Carlos Brown M.D., M.S. - 09/23/2022 12:44 AM CDT Care of patient transferred to ma by Dr. Luz. The patient was signed [...] the resident. Mike Luz M.D., M.B.A. 09/26/22 4413 * Juana Sanon R.N., JOSE - 09/22/2022 9:00 PM CDT Patient with history of dialysis presents with uncotrolled chest pain. Fentanyl and Versed given BREEDER HEN SERVICE TECHNICIAN. Juana Sanon R.N., JOSE 09/22/222100 documented in [...] PM CDT 09/22/2022 11:55 PM CDT Narrative [facility] - 09/23/2022 2:38 PM CDT Specimen Information: Specimen ID: [id number] Specimen Type: Blood Specimen Collection Start Date: 09/22/2022 11:43 PM Specimen Received Date: 09/22/2022 11:55 PM Specimen ID: [id number] Specimen Type: Blood Specimen Collection Start Date: 09/23/2022 ??2:38 PM Specimen Received Date: 09/23/2022 ??2:38 PM Mike Luz M.D., M.B.A. LAB BLOOD TR OPONIN [facility] [address] [place] [address], [facility] [address] [place] [address] * DX Chest AP or PA and [...] (BNP) (09/22/2022 9:21 PM CDT) NT-Pro BNP 93482(H) <79 pg/mL 09/22/2022 9:59 PM CDT [facility] Comment: NT-proBNP values less than 300 [...] Luz M.D., M.B.A. LAB BLOOD AD D-ON [facility] [address] [place] [address], [facility] [address] [place] [address] * (ABNORMAL) Troponin T, Baseline, 5th gen (09/22/2022 9:21 PM CDT) Troponin T, Baseline, 5th gen 114(H) <=15 ng/L 09/22/2022 9:50 PM CDT [facility] Comment:Consider acute myoca rdial injury Blood (Blood, Venous) 09/22/2022 9:21 PM CDT 09/22/2022 9:26 PM CDT Mike Luz M.D., M.B.A. LAB BLOOD TR OPONIN [facility] [address] [place] [address], [facility] [address] [place] [address] * (ABNORMAL) Basic Metabolic Panel (09/22/2022 9:21 [...] Luz M.D., M.B.A. LAB BLOOD AD D-ON [facility] [address] [place] [address], [facility] STMA [facility] [address] [place] [address] * (ABNORMAL) CBC with Differential, Blood (09/22/2022 [...] LAB BLOOD AD D-ON Performing Organization Address [facility] de Phone Number [facility] [address] [place] [address], [facility] [address] [place] [address] * ECG 12 Lead (09/22/2022 9:15 PM CDT) Ventricular Rate ECG/Min [address] Interval 142 ms MUSE QRSD Interval 90 ms MUSE QT Interval 376 ms MUSE QTC Interval 503 ms MUSE P [place] 48 degrees MUSE R [place] 86 degrees MUSE T Wave [place] 50 degrees MUSE 09/22/2022 9:15 PM CDT [...] M.B.A. ECG ORDERABL ES Performing Organization Address [facility] [[email or web address]] Co de Phone Number MUSE NA documented [...] 2301 (New Bag - Provider: Jesusita Cardenas R.N.)9043 (Stopped - Provider: Jasmin Wilson R.N. - [...] doses 2254 (Given - Provider: Jesusita Cardenas R.N.)2010 (Given - Provider: Jasmin Wilson R.N.) documented in this encounter Care Teams City Manager Relationship Specialty Start Date End Date None Reported, Pcp PCP - General Family Medicine 07/28/22 02/03/23 documented as of this encounter
--- OUTSIDE RECORDS SUMMARY | 2023-05-12 03:48 | XMS_ITS | Encounter Summary ---
Author Name Unknown Organization [facility] Address [address] [place] [address] Care Team Providers Care Insurance Account Representative Name Role Phone None Reported, Pcp Primary Care Provider Unavail able Encounter Details Date Type Department Care Team (Late st Contact Info) Description 07/11/2022 Clinical Communication Department of Cardiovascular Diseases in [place], [place] [address] [place] [phone] Sergei Ibrahim M.D. [address] [place] [address] Social History Tobacco Use Types Packs/Day Years [...] on filedocumented in this encounter Care Teams Insurance Account Representative Relationship Specialty Start Date End Date None Reported, Pcp PCP - General Family Medicine 07/28/22 02/03/23 documented as of this encounter
--- OUTSIDE RECORDS SUMMARY | 2023-05-12 03:48 | XMS_ITS | Encounter Summary ---
Author Name Unknown Organization [facility] Address [address] [place] [address] Care Team Providers Care Client Success Specialist Name Role Phone None Reported, Pcp Primary Care Provider Unavail able Reason for Visit * Reason Comments Chest Pain Encounter Details Date Type Department Care Team (Late st Contact Info) Description 10/08/2022 8:32 AM CDT - 10/08/2022 7:31 PM CDT Emergency [facility] Emergency Department [address] [place] [phone] Haresh Conroy PJuan CAJuan C-C. [address] [place] [phone] Pain Chest Atypical (Primary Dx); Shortness Of [...] Care Everywhere. * Nonspecific Chest Pain Adult (Portuguese) documented in this encounter Medications [...] are 1. Patient will be dialyzed in [place] and after dialysis will be re-evaluated by [...] TO CARDIOLOGY CARDIOLOGY CONSULT NOTE ED Requesting Pen Rider: Haresh Conroy PA-C Cardiology Collaborating Pen Rider: Dr. Madison MD CHIEF COMPLAINT/REASON FOR VISIT Chest Pain HISTORY OF PRESENT ILLNESS Mr. Justin is a 37 y.o. male who is being evaluated in the ED for chest pain that started abruptly at 0200 this morning. He has medical comorbidities including, but not limited to, ESRD secondary to hypertension, congestive heart failure (diagnosed in [facility]), STEMI in 2016 (diagnosed in [facility]), and epilepsy. He states while [...] cardiac MRI Please page Regina Rosales - [phone] for any questions. Regina Rosales APRN, C.N.P. 10/08/22 documented in this encounter ED Notes * Carla Schroeder R.N. - 10/08/2022 9:30 AM CDT Pt arrives to [place] [address] via EMS from dialysis with complaints of [...] no mass, no [place]-Ac[place]'s sign and no [place]'s sign. There is no abdominal tenderness. There [...] are 1. Patient will be dialyzed in [facility] after dialysis will be re-evaluated by Cardiology [...] every day language. Patient be admitted to [place] for dialysis, bedside ultrasound and plan/disposition be pending Cardiology recommendations. [place] handoff was completed with provider and center [...] has an attitude and we do not electrical tester anyone. My job is to provide great [...] Documents. Regina Rosales APRN, C.N.P. CV ECHO MT OCEDURES * HBs Antigen Scrn, S (10/08/2022 2:27 PM CDT) [facility] HBs Antigen Scrn, S Negative Negative 10/08/2022 10:00 PM CDT [facility] Blood (Blood, Venous) 10/08/2022 2:27 PM CDT 10/08/2022 5:13 PM CDT Mimi Springer M.D. LAB MICROBIOL OGY - BLOOD ORDERABLES Performing Organization Address City/[facility]/ZIP Co de Phone Number [place] [phone] [place] [address] [place] [address] * HCV Ab w/Reflex to HCV PCR, Serum (10/08/2022 2:27 PM CDT) [facility] HCV Ab, S Negative Negative 10/08/2022 10:17 PM CDT [facility] Comment:Euqsah-xv-yuogcf rat io is <1.00. Blood (Blood, Venous) 10/08/2022 2:27 PM CDT 10/08/2022 5:13 PM CDT Mimi Springer M.D. LAB MICROBIOL OGY - BLOOD ORDERABLES [facility] [address] [place] [address] [place] [address] * HBs Antibody Scrn, Serum (10/08/2022 2:27 PM CDT) Pathologist [facility] HBs Antibody Scrn, S CANCELED 04/08/2023 11:59 AM POUNCING MACHINE OPERATOR [facility] Comment: REVISED RESULTS This result was cancelled. Report is cancelled due to a vendor reagent quality issue. Retesting of a new specimen is recommended if clinically indicated. ----PREVIOUSLY REPORTED ---- Positive Patient is considered to be immune to infection with HBV., Flagged as: Normal (Reported 10/08/2022 22:31) HBs Antibody, Quantitative, S CANCELED mIU/mL 04/08/2023 11:59 AM POUNCING MACHINE OPERATOR [facility] Comment: REVISED RESULTS ----PREVIOUSLY REPORTED ---- 14.6, Flagged as: N/A (Reported 10/08/2022 22:31) Blood (Blood, Venous) 10/08/2022 2:27 PM CDT 10/08/2022 5:13 PM CDT Mimi Springer M.D. LAB MICROBIOL OGY - BLOOD ORDERABLES Performing Organization Address City/[facility]/ZIP Co de Phone Number [facility] [address] [place] [address] [facility] [address] [place] [address] * HBc Total Ab Scrn, S (10/08/2022 2:27 PM CDT) [facility] HBc Total Ab Scrn, S Negative Negative 10/08/2022 10:28 PM CDT [facility] Blood (Blood, Venous) 10/08/2022 2:27 PM CDT 10/08/2022 5:13 PM CDT Mimi Springer M.D. LAB MICROBIOL OGY - BLOOD ORDERABLES [facility] [address] [place] [address] [facility] [address] [place] [address] * CRP (C-Reactive Protein) (10/08/2022 2:27 PM CDT) Pathologist [facility] C-Reactive Protein (CRP), S <3.0 <5.0 mg/L 10/08/2022 3:18 PM CDT [facility] Blood (Blood, Venous) 10/08/2022 2:27 PM CDT 10/08/2022 2:57 PM CDT Haresh Conroy P.A.-C. LAB BLOOD ADD-ON [facility] [address] [place] [address], [facility] [address] [place] [address] * (ABNORMAL) Troponin T, 2h/6h, 5th Gen [...] AM CDT 10/08/2022 11:05 AM CDT Narrative [facility] - 10/08/2022 11:26 AM CDT Specimen Information: Specimen ID: [id number] Specimen Type: Blood Specimen Collection Start Date: 10/08/2022 11:01 AM Specimen Received Date: 10/08/2022 11:05 AM Specimen ID: [id number] Specimen Type: Blood Specimen Collection Start Date: 10/08/2022 11:26 AM Specimen Received Date: 10/08/2022 11:26 AM Haresh Conroy P.A.-C. LAB BLOOD TROPON IN Performing Organization Address [facility] Co de Phone Number [facility] [address] [place] [address], [facility] [address] [place] [address] * ECG 12 Lead (10/08/2022 10:57 AM CDT) Ventricular Rate ECG/Min 104 BPM MUSE MT Interval 142 ms MUSE QRSD Interval 98 ms MUSE QT Interval 364 ms MUSE QTC Interval 478 ms MUSE P [place] 50 degrees MUSE R [place] 59 degrees MUSE T Wave [place] 62 degrees MUSE 10/08/2022 10:5 7 AM [...] Conroy P.A.-C. ECG ORDERABLES Performing Organization Address [facility] Co de Phone Number MUSE [...] the basal and mid-cavitary ventricular septum (to [id number] mm). While findings may be seen in [...] Anatomical Region Laterality Modality Head, Neuroradiology [facility] , [facility], Neuroradiology [facility] N/A Computed Tomography, Compute d Tomography [...] BLOOD NON AD D-ON Performing Organization Address City/[facility] Co de Phone Number [facility] [address] [place] [address], [facility] STMA [facility] [address] [place] [address] * (ABNORMAL) Magnesium (10/08/2022 9:01 AM CDT) Magnesium, S 2.4(H) 1.7 - 2.3 mg/dL 10/08/2022 10:09 AM CDT [facility] Blood (Blood, Venous) 10/08/2022 9:01 AM CDT 10/08/2022 9:44 AM CDT Haresh Conroy P.A.-C. LAB BLOOD ADD-ON Performing Organization Address [facility] Co de Phone Number [facility] [address] [place] [address], [facility] [address] [place] [address] * Prothrombin Time (PT) (10/08/2022 9:01 AM [...] P.A.-C. LAB BLOOD ADD-ON Performing Organization Address City/[facility]/ZIP Co de Phone Number [facility] [address] [place] [address], [facility] [address] [place] [address] * (ABNORMAL) Troponin T, Baseline, 5th gen (10/08/2022 9:01 AM CDT) Troponin T, Baseline, 5th gen 93(H) <=15 ng/L 10/08/2022 10:48 AM CDT [facility] Blood (Blood, Venous) 10/08/2022 9:01 AM CDT 10/08/2022 9:07 AM CDT Haresh Conroy P.A.-C. LAB BLOOD TROPON IN Performing Organization Address [facility] Co de Phone Number [facility] [address] [place], [place] [address] [place] [address] 200 [place] [address] * Lipase (10/08/2022 9:01 AM CDT) Lipase, S 52 13 - 60 U/L 10/08/2022 10:09 AM CDT [facility] Blood (Blood, Venous) 10/08/2022 9:01 AM CDT 10/08/2022 9:44 AM CDT Haresh Conroy P.A.-C. LAB BLOOD ADD-ON Performing Organization Address [facility] Co de Phone Number [facility] [address] [place], [place] [phone] [place] [address] 200 [place] [address] * Hepatic Function Panel (10/08/2022 9:01 AM [...] CDT Haresh Conroy P.A.-C. LAB BLOOD ADD-ON [address] [address], [place] [place] [address] * (ABNORMAL) Basic Metabolic Panel (10/08/2022 9:01 [...] P.A.-C. LAB BLOOD ADD-ON Performing Organization Address City/State/[facility] [place] [address], [facility] [place] [address] * Blood Gas without Coox, Venous (10/08/2022 9:01 AM CDT) [facility] pO2, Venous 67 Not applicable mm Hg [...] Conroy P.A.-C. LAB BLOOD NON AD D-ON [facility] [address] [place] [address], [facility] ST[facility] [address] [place] [address] * (ABNORMAL) CBC with Differential, Blood (10/08/2022 [...] CDT Haresh Conroy P.A.-C. LAB BLOOD ADD-ON [facility] [address] [place] [address], [facility] [address] [place] [address] * ECG 12 Lead (10/08/2022 8:47 AM CDT) Ventricular Rate ECG/Min 103 BPM MUSE MT Interval 138 ms MUSE QRSD Interval 90 ms MUSE QT Interval 366 ms MUSE QTC Interval 479 ms MUSE P [place] 55 degrees MUSE R [place] 98 degrees MUSE T Wave [place] 56 degrees MUSE 10/08/2022 8:47 AM CDT [...] no longer present Reviewed by ELENA Fulton aHresh Conroy P.A.-C. ECG ORDERABLES MUSE NA documented [...] obtained. documented in this encounter Care Teams Client Success Specialist Relationship Specialty Start Date End Date None Reported, Pcp PCP - General Family Medicine 07/28/22 02/03/23 documented as of this encounter
--- OUTSIDE RECORDS SUMMARY | 2023-05-12 03:48 | XMS_ITS | Encounter Summary ---
Author Name Unknown Organization [facility] Address [address] [place] [address] Care Team Providers Care Stripper Black And White Name Role Phone None Reported, Pcp Primary Care Provider Unavail able Encounter Details Date Type Department Care Team (Late st Contact Info) Description 08/13/2022 Orders Only Division of Nephrology and Hypertension in [place], [place] [address] [place] [address] Concetta Mejía M.D., Ph.D. [address] [place] [phone] Social History Tobacco Use Types Packs/Day Years [...] on filedocumented in this encounter Care Teams Stripper Black And White Relationship Specialty Start Date End Date None Reported, Pcp PCP - General Family Medicine 07/28/22 02/03/23 documented as of this encounter
--- OUTSIDE RECORDS SUMMARY | 2023-05-12 03:48 | XMS_ITS | Encounter Summary ---
Author Name Unknown Organization [facility] Address [address] [place] [address] Care Team Providers Care Film Recordist Name Role Phone None Reported, Pcp Primary Care Provider Unavail able Reason for Visit * Outpatient (Routine) - Authorized Specialty Diagnoses / Procedures Referred By eMl t Referred To Contact Diagnoses Pain Chest Procedures NM Cardiac Perfusion Rest and Stress SPECT Drew Mo APRN C.N.P., M.S.N. [address] [place] [phone] [facility] Referral ID Status Reason Start Date Expiration Date V isits Requested Visits Authorized [id number] Authorized 07/11/2022 07/11/2023 6 6 Encounter Details Date Type Department Care Team (Latest Contact Info) Description 07/29/2022 11:59 PM CDT Hospital Encounter Department of Radiology in [place], [place] [address] [place] [phone] Drew Mo APRN, C.N.P., M.S.N. [address] [place] [phone] Canceled (Patient: Hospitalized / ill) Discharge Disposition: [...] on filedocumented in this encounter Care Teams Film Recordist Relationship Specialty Start Date End Date None Reported, Pcp PCP - General Family Medicine 07/28/22 02/03/23 documented as of this encounter
--- OUTSIDE RECORDS SUMMARY | 2023-05-12 03:48 | XMS_ITS | Encounter Summary ---
Author Name Unknown Organization [facility] Address [address] [place] [address] Care Team Providers Care Mortgage Loan Originator Name Role Phone Unavailable Primary Care Provider Unavailabl e Encounter Details Date Type Department Care Team (Late st Contact Info) Description 07/18/2022 Orders Only Division of Nephrology and Hypertension in [place], [place] [address] [place] [address] Concetta Mejía M.D., Ph.D. [address] [place] [address] Social History Tobacco Use Types Packs/Day Years [...]
--- OUTSIDE RECORDS SUMMARY | 2023-05-12 03:48 | XMS_ITS | Encounter Summary ---
Author Name Unknown Organization [facility] Address [address] [place] [address] Care Team Providers Care Auto Apprentice Mechanic Name Role Phone None Reported, Pcp Primary Care Provider Unavail able Encounter Details Date Type Department Care Team (Late st Contact Info) Description 09/03/2022 Orders Only Division of Nephrology and Hypertension in [place], [place] [address] [place] [address] Concetta Mejía M.D., Ph.D. [address] [place] [address] Social History Tobacco Use Types Packs/Day Years [...] on filedocumented in this encounter Care Teams Auto Apprentice Mechanic Relationship Specialty Start Date End Date None Reported, Pcp PCP - General Family Medicine 07/28/22 02/03/23 documented as of this encounter
--- OUTSIDE RECORDS SUMMARY | 2023-05-12 03:48 | XMS_ITS | Encounter Summary ---
Author Name Unknown Organization [facility] Address [address] [place] [address] Care Team Providers Care Chainer Name Role Phone None Reported, Pcp Primary Care Provider Unavail able Encounter Details Date Type Department Care Team (Late st Contact Info) Description 09/12/2022 Orders Only Division of Nephrology and Hypertension, [facility], in [place], [place] [address] [place] [address] Drew Mo, HALLE, C.N.P., M.S.N. [address] [place] [address] Social History Tobacco Use Types Packs/Day Years [...] on filedocumented in this encounter Care Teams Chainer Relationship Specialty Start Date End Date None Reported, Pcp PCP - General Family Medicine 07/28/22 02/03/23 documented as of this encounter
--- OUTSIDE RECORDS SUMMARY | 2023-05-12 03:48 | XMS_ITS | Encounter Summary ---
Author Name Unknown Organization [facility] Address [address] [place] [address] Care Team Providers Care Ecclesiastical Worker Name Role Phone None Reported, Pcp Primary Care Provider Unavail able Encounter Details Date Type Department Care Team (Late st Contact Info) Description 09/24/2022 Clinical Communication Department of Radiology in [place], [place] [address] [phone] [place] [address] [address] Social History Tobacco Use Types Packs/Day Years [...] on filedocumented in this encounter Care Teams Ecclesiastical Worker Relationship Specialty Start Date End Date None Reported, Pcp PCP - General Family Medicine 07/28/22 02/03/23 documented as of this encounter
--- OUTSIDE RECORDS SUMMARY | 2023-05-12 03:48 | XMS_ITS | Encounter Summary ---
Author Name Unknown Organization [facility] Address [address] [place] [address] Care Team Providers Care Spooler Operator Automatic Name Role Phone None Reported, Pcp Primary Care Provider Unavail able Encounter Details Date Type Department Care Team (Late st Contact Info) Description 09/05/2022 Orders Only Division of Nephrology and Hypertension in [place], [place] [address] [place] [address] Concetta Mejía M.D., Ph.D. [address] [place] [address] Social History Tobacco Use Types Packs/Day Years [...] on filedocumented in this encounter Care Teams Spooler Operator Automatic Relationship Specialty Start Date End Date None Reported, Pcp PCP - General Family Medicine 07/28/22 02/03/23 documented as of this encounter
--- OUTSIDE RECORDS SUMMARY | 2023-05-12 03:48 | XMS_ITS | Encounter Summary ---
Author Name Unknown Organization [facility] Address [address] [place] [address] Care Team Providers Care Silica Filter Operator Name Role Phone None Reported, Pcp Primary Care Provider Unavail able Reason for Visit * Reason Comments Hypertension Encounter Details Date Type Department Care Team (Latest Contact Info) Description 07/28/2022 7:20 PM CDT - 07/30/2022 3:00 PM CDT Hospital Encounter [facility], [facility], [facility], Second floor [address] [place] [address] [phone] Diane Fregoso M.D., M.B.A. [address] [place] [phone] Mikey Orta M.D. [address] [place] [address] [phone] Joaquin Luz P.A.-C., M.S. [address] [place] [address] [place] [address] Failure Renal End Stage (HCC) [...] CDT DISCHARGE SUMMARY BRIEF OVERVIEW Discharge Hospital: [facility] Discharge Provider: Mikey Orta M.D. Discharge Provider Team: [facility] Internal Medicine ([facility]) [facility] Medicine ([facility]) Primary Care Providers: None Reported, Pcp [...] renal disease [facility]. He also had [...] care was discussed with Dr. Mikey Orta [phone]), HIM ruby on rails consultant. I saw and evaluated Salbador Justin today and provided counseling [id number] at bedside. I personally spent a total of greater than 30 minutes in counseling and coordination of care as described above to facilitate the hospital discharge. Discharge instructions were provided to the patient and caregiver(s). documented in this encounter Discharge Instructions * Discharge Instructions* Jazlyn Vyas - 07/29/2022 7:15 AM CDT You were discharged from the [facility] Medicine 11 ([facility]) Service. Please identify this service name [...] to). He provided the correct address as [address] [place] [address]. It is a hotel and he will be getting a new room saha once he gets there. His financial needs were addressed. He confirmed he is comfortable with the plan and did not have any questions or concerns with the plan. Social work updated care management assistants and they reached out to [employer] to change the address for the ride. OBJECTIVE Patient is currently hospitalized on Dom 2D. They are medically stable. ASSESSMENT / PLAN ASSESSMENT Patient appeared to be coping appropriately at this time. He has adequate insight into his needs and is planning for discharge. PLAN Discharge at 07/30 at 3:30pm by [employer] ([phone]). Paid for by OTHER. Patient must be [...] disease secondary to hypertensive nephropathy, maintained on [facility] hemodialysis since 07/2017 # Admitted on 07/28/2022 [...] he will present tohis outpatient dialysis unit, [facility]. -- Was on spironolactone in the past, unsure why this was stopped. Recommend starting torsemide 100mg daily. Dismissal Recommendations: -- Hemodialysis on Friday, , Friday schedule; (outpatient unit is [facility] dialysis [facility]) -- We will set a [...] diet; 1.5 L/day fluid restriction -- Epogen 87858 units IV 3 times per week with [...] or concerns, please contact the Nephrology C COIL CUTTER/PA, pager #[phone]. * Joaquin Luz PTevin.-C., M.S. - 07/29/2022 4:11 PM CDT [facility] Medicine 11 ([facility]) Progress Note SUBJECTIVE Mr. Justin is [...] / PLAN Mr. Justin is hospitalized on [facility] Medicine 11 ([facility]) for evaluation and management of Excess [...] care was discussed with Dr. Mikey Orta [phone]), HIM ruby on rails consultant. I personally spent a total of [...] SCDs, ambulation Medication Reconciliation: Med history per [facility] - New: AKL triple cream, lidocaine patch [...] and lidocaine patch. Janelle Berumen Pharm.D., R.Ph. [phone] * Dede Berumen Pharm.D., R.Ph. - 07/29/2022 [...] M.B., Ph.D. - 07/28/2022 10:04 PM CDT [facility] Medicine 11 ([facility]) Admission Note SUBJECTIVE CHIEF COMPLAINT Missed dialysis HISTORY OF PRESENT ILLNESS Salbador Justin is a 36 y.o. male who presents to emergency department with a chief complaint of missed dialysis. 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 His dialysis schedule is Friday, and Friday. He is doing dialysis at [facility]. The dialysis yesterday was canceled [...] reviewed the labs, ECG, and xray from [facility]. ASSESSMENT / PLAN #1 End-stage renal disease [...] start amlodipine and minoxidil tomorrow morning - student success counselor on medication compliance Diet: Adult Diet [...] patient has discharged. Transportation has been requested, catalytic case operator asked administrator social welfare Miranda Mckeon to soraya the ride as no MA rides are available today. Ride is set up for 07/30/22 at 3:30pm via [employer] [phone], please have the patient at the Main [...] [place]. [place] [address]. Mr. Justin normally dialyzes on Friday, , and Friday at [facility] dialysis unit. He normally dialyzes for 4 hours with a 138 sodium, 2 potassium, 2.5 calcium, and 36 bicarbonate dialysate at a temperature of 36.5 degrees Celsius. His estimated dry weight is 68 kg. His dialysis access is a left AV fistula. He uses a Nipro my4oneone dialyzer. Medications administered during dialysis include: Epogen 16868 units IV 3 times per week. Heparin [...] disease secondary to hypertensive nephropathy, maintained on [facility] hemodialysis since 07/2017 # Admitted on 07/28/2022 [...] be tomorrow in the outpatient setting at [facility] dialysis [facility]. However, if he remains in the hospital today, we will plan for dialysis here tomorrow morning. Additional Recommendations: -- Hemodialysis on Friday, , Friday schedule; (outpatient unit is [facility] dialysis [facility]) -- If remains hospitalized tonight, [...] diet; 1.5 L/day fluid restriction -- Epogen 73312 units IV 3 times per week with [...] has been staffed with Dr. Osorio, Nephrology ruby on rails consultant. For questions or concerns, please contact Nephrology C COIL CUTTER/PA pager, [phone]. ADDENDUM (9739): Mr. Justin completed 4 hours of hemodialysis [...] 5 years who comes in today from [place] after being unable to get dialysis yesterday. They had plan to reschedule for tomorrow but he had an appointment in [place] he needed to get to and was [...] Baseline, 5th gen(!): 72 2021 NT-Pro BNP(!): 38500 2022 BUN (Blood Urea Nitrogen), P(!): 67 [...] has been on dialysis for 5 years [place], [place]. [place] that he was not able [...] has been on dialysis for 5 years [place], [place]. [place] that he was not able [...] Blood Pressure Britni Tompkins M.D. Resident 07/28/22 6516 documented in this encounter Miscellaneous Notes * [...] Sadie Sadler R.N., BSN, CCDS Clinical Documentation Project Management Specialist Query created by: Sadie Sadler R.N., BSN, CCDS 08/02/2022 06:12 AM CDT </LCI> * Hospital Course - Joaquin Luz P.A.-C., M.S. - 07/28/2022 10:17 PM CDT Mr. Justin is a 36-year-old male with end-stage renal disease on hemod[facility]. He also had [...] Antigen Scrn, S (07/29/2022 9:39 AM CDT) [facility] HBs Antigen Scrn, S Negative Negative 07/29/2022 1:59 PM CDT [facility] Blood (Blood, Venous) 07/29/2022 9:39 AM CDT 07/29/2022 12:20 PM CDT Heaven Clemens APRN, C.N.P., D.N.P. L AB MICROBIOLOGY - BLOOD ORDERABLES [facility] [address] [place] [address] [facility] [address] [place] [address] * HBs Antibody Scrn, S (07/29/2022 9:39 AM CDT) [facility] HBs Antibody Scrn, S Positive 07/29/2022 2:16 PM CDT [facility] Comment: Patient is considered to be immune to infection with HBV. ----REFERENCE VALUE---- Unvaccinated: Negative Vaccinated: Positive HBs Antibody, Quantitative, S 12.7 mIU/mL 07/29/2022 2:16 PM CDT [facility] Comment: ----REFERENCE VALUE---- Unvaccinated: <5.0 Vaccinated: >=12.0 Blood (Blood, Venous) 07/29/2022 9:39 AM CDT 07/29/2022 12:20 PM CDT Heaven Clemens APRN, C.N.P., D.N.P. L AB MICROBIOLOGY - BLOOD ORDERABLES [facility] [address] [place] [address] [facility] [address] [place] [address] * (ABNORMAL) Basic Metabolic Panel (07/29/2022 4:43 AM CDT) [facility] Potassium, S 4.9 3.6 - 5.2 mmol/L [...] CDT Lisa Hardy, Ph.D. LAB BLOOD ADD-ON [facility] [address] [place] [address], [facility] [address] [place] [address] * (ABNORMAL) Troponin T, 2H/6H, 5th Gen [...] PM CDT 07/28/2022 10:11 PM CDT Narrative [facility] - 07/28/2022 10:45 PM CDT Specimen Information: Specimen ID: [id number] Specimen Type: Blood Specimen Collection Start Date: 07/28/2022 10:05 PM Specimen Received Date: 07/28/2022 10:11 PM Specimen ID: [id number] Specimen Type: Blood Diane Fregoso M.D., M.B.A. LAB BLOOD TR OPONIN [facility] [address] [place] [address], [facility] [address] [place] [address] * DX Chest AP or PA and [...] CDT) Ventricular Rate ECG/Min 93 BPM MUSE [place] Interval 142 ms MUSE QRSD Interval 92 ms MUSE QT Interval 374 ms MUSE QTC Interval 465 ms MUSE P Coy 65 degrees MUSE R Coy 106 degrees MUSE T Wave Coy 45 degrees MUSE 07/28/2022 7:43 PM CDT [...] M.B.A. ECG ORDERABL ES Performing Organization Address [facility] de Phone Number MUSE NA * Prothrombin Time (PT) (07/28/2022 7:43 PM CDT) Pathologist [facility] Prothrombin Time, P 11.3 9.4 - 12.5 [...] LAB BLOOD AD D-ON Performing Organization Address [facility] de Phone Number [facility] [address] [facility] [address] [place] [address] * (ABNORMAL) Troponin T, Baseline, 5th gen (07/28/2022 7:43 PM CDT) Pathologist [facility] Troponin T, Baseline, 5th gen 72(H) <=15 ng/L 07/28/2022 8:12 PM CDT [facility] Blood (Blood, Venous) 07/28/2022 7:43 PM CDT 07/28/2022 7:48 PM CDT Diane Fregoso M.D., M.B.A. LAB BLOOD TR OPONIN Performing Organization Address City/[facility]/ZIP Co de Phone Number [facility] [address] 200 [place] [address] * (ABNORMAL) NT-Pro B-Type Natriuretic Peptide (BNP) (07/28/2022 7:43 PM CDT) NT-Pro BNP 60393(H) <79 pg/mL 07/28/2022 8:16 PM CDT [facility] [...] LAB BLOOD AD D-ON Performing Organization Address [facility] Co de Phone Number [facility] 200 [place], [place] [address] [place] [address] 200 [place] [address] * (ABNORMAL) Basic Metabolic Panel (07/28/2022 7:43 [...] Fregoso M.D., M.B.A. LAB BLOOD AD D-ON [place] [address] [place] [address], [facility] 200 [place] [address] * (ABNORMAL) CBC with Differential, Blood (07/28/2022 [...] Fregoso M.D., M.B.A. [place] [address], [place] [address] documented in this encounter Visit Diagnoses Diagnosis [...] of acetaminophen in 24 hours all sources fflscgktvzupq-fsikzpss-zdhv osman in Lipoderm 2%-5%-5% cream 1 g [...] Elba Carey R.N. - Reason: Patient/family refused) etnduzasnjzlx-cyswbpuk-h idocaine in Lipoderm 2%-5%-5% cream 1 g [...] Carey R.N.)2023 (Given - Provider: Yulissa Singh RJua nCNJuan C) 1440 (Not Given - Provider: Elba [...] R.N.) documented in this encounter Care Teams Silica Filter Operator Relationship Specialty Start Date End Date None Reported, Pcp PCP - General Family Medicine 07/28/22 02/03/23 documented as of this encounter
--- OUTSIDE RECORDS SUMMARY | 2023-05-12 03:48 | XMS_ITS | Encounter Summary ---
Author Name Unknown Organization [facility] Address [address] [place] [address] Care Team Providers Care Skein Bander Name Role Phone Unavailable Primary Care Provider Unavailabl e Encounter Details Date Type Department Care Team (Late st Contact Info) Description 07/18/2022 Orders Only Division of Nephrology and Hypertension in [place], [place] [address] [place] [address] Concetta Mejía M.D., Ph.D. [address] [place] [address] Social History Tobacco Use Types Packs/Day Years [...]
--- OUTSIDE RECORDS SUMMARY | 2023-05-12 03:49 | XMS_ITS | Clinical Summary ---
Author Name Unknown Organization [facility] Address [place], [place] [address] Care Team Providers Care Employee Placement Specialist Name Role Phone Pcp, No Primary Care [...] Comments Blood Pressure 175/96 03/20/2022 7:24 PM [facility] Pulse 98 03/20/2022 7:24 PM [facility] PICK[facility]ER Temperature 37.2 ??C (99 ??F) 03/20/2022 7:24 PM [facility] PICK[facility]ER Respiratory Rate 16 03/20/2022 7:24 PM [facility] PICKLER Oxygen Saturation 99% 03/20/2022 7:24 PM [facility] PICKLER Inhaled Oxygen Concentration - - Weight 70.5 kg (155 lb 8 oz) 03/20/2022 7:24 PM BRASS PICKLER Height 165.1 cm (5' 5) 03/20/2022 7:24 PM BR[facility] PICKLER Body Mass Index 25.88 03/20/2022 7:24 PM BRASS PICKLER Plan of Treatment Not on file Care Teams Employee Placement Specialist Relationship Specialty Start Date End Date Pcp, No . PCP - General 03/20/22
--- OUTSIDE RECORDS SUMMARY | 2023-05-12 03:49 | XMS_ITS | Encounter Summary ---
Author Name Unknown Organization [facility] Address [address] [place] [address] Care Team Providers Care Brusher Operator Name Role Phone Unavailable Primary Care Provider Unavailabl e Encounter Details Date Type Department Care Team (Late st Contact Info) Description 06/27/2022 Orders Only Division of Nephrology and Hypertension, [facility], in [place], [place] [address] [place] [address] Drew Mo, HALLE, C.N.P., M.S.N. [address] [place] [address] Social History Tobacco Use Types Packs/Day Years [...]
--- OUTSIDE RECORDS SUMMARY | 2023-05-12 03:49 | XMS_ITS ---
Author Name Unknown Organization [facility] Address [address] [place] [address] Care Team Providers Care Job Coach/Job Developer Name Role Phone Elsewhere, Pcp Primary Care Provider Unavailabl e Transplant Episode Kidney Candidate [facility] ([place], [place]) - [facility] [place] Referred on 10/10/2022 Marked as Active on 10/10/2022 Kidney CoordinatorRoseline Humphrey R.N. Fax: N/A Email: [email or web address] Scores Score Value Updated Exceptions/Reas ons CPRA Not available EPTS (Calc) 11 05/12/2023 Care Team Name Role Phone Fax Email Roseline Humphrey R.N. Kidney Coordinator [phone] N/A [email or web address] Concetta Floyd Referring Provider [phone] N/A [email or web address] Pre-Transplant Referred: 10/10/2022 Dialysis History Dialysis History Start End Type Comments Center 2017 Hemo [facility] Information Center Phone Fax Address [facility] [phone] [place] [address]
--- OUTSIDE RECORDS SUMMARY | 2023-05-12 03:49 | XMS_ITS | Encounter Summary ---
Author Name Unknown Organization [facility] Address [address] [place] [address] Care Team Providers Care Project Management Name Role Phone Unavailable Primary Care Provider Unavailabl e Encounter Details Date Type Department Care Team (Late st Contact Info) Description 07/10/2022 Orders Only Division of Nephrology and Hypertension, [facility], in [place], [place] [address] [place] [address] Drew Mo, HALLE, C.N.P., M.S.N. [address] [place] [address] Other Chest Pain (Primary Dx) Social History [...]
--- OUTSIDE RECORDS SUMMARY | 2023-05-12 03:49 | XMS_ITS ---
Author Name Unknown Organization [facility] Address [address] [place] [address] Care Team Providers Care Director Equipment Name Role Phone Elsewhere, Pcp Primary Care Provider Unavailabl e Transplant Episode Kidney Candidate [facility] ([place], [place]) - [facility] Referred on 06/28/2022 Marked as Ineligible on 09/06/2022 Reason: Unable to Contact Patient Kidney CoordinatorRoseline Humphrey R.N. Fax: N/A Email: [email or web address] Scores Score Value Updated Exceptions/Reas ons CPRA Not available EPTS (Calc) 11 05/12/2023 Care Team Name Role Phone Fax Email Roseline Humphrey R.N. Kidney Coordinator [phone] N/A [email or web address] Pre-Transplant Referred: 06/28/2022 Dialysis History Dialysis History Start End Type Comments Center 2017 Hemo [facility] Information Center Phone Fax Address [facility] [phone] [place] [address]
--- OUTSIDE RECORDS SUMMARY | 2023-05-12 03:49 | XMS_ITS | Encounter Summary ---
Author Name Unknown Organization [facility] Address [address] [place] [address] Care Team Providers Care Online Content Editor Name Role Phone Unavailable Primary Care Provider Unavailabl e Encounter Details Date Type Department Care Team (Latest Contact Info) Description 06/28/2022 Clinical Communication Maco Espinoza [facility] for Transplantation and Clinical Regeneration in [place], [place] [address] [place] [address] Fanta Nicolas APRN, C.N.P., D.N.P. [address] [place] [address] Social History Tobacco Use Types Packs/Day Years [...]
--- OUTSIDE RECORDS SUMMARY | 2023-05-12 03:49 | XMS_ITS | Encounter Summary ---
Author Name Unknown Organization [facility] Address [address] [place] [address] Care Team Providers Care Foam Machine Operator Name Role Phone Unavailable Primary Care Provider Unavailabl e Encounter Details Date Type Department Care Team (Late st Contact Info) Description 07/06/2022 Orders Only Division of Nephrology and Hypertension, [facility], in [place], [place] [address] [place] [address] Drew Mo, HALLE, C.N.P., M.S.N. [address] [place] [address] Social History Tobacco Use Types Packs/Day Years [...]
== END 2023-05-08 14:34 | disposition home or self-care (01) ==
LOC: AMB 05-12 03:41
PROVIDERS: PCP Internal Medicine; Visit Provider Student in an Organized Health Care Education/Training Program
DX: R10.9 Unspecified abdominal pain (principal)
CPT/HCPCS: A0425; A0429

== ENCOUNTER 2023-05-08 14:48 | Emergency (ER) | payer MEDICARE, MEDICAID, SELFPAY ==
[2023-05-08] VITALS (8 sets, daily range): BP systolic 160–182; BP diastolic 106–129; PULSE 65–81; RESP 12–16; TEMP 36.8; O2SAT 97–99
--- NOTE | 2023-05-08 15:17 | CRLHL7_ITS ---
For Patients: As a result of the Century Cures Act, medical imaging exams and procedure reports are released immediately into your electronic medical record. You may view this report before your referring provider. If you have questions, please contact your health care provider. INDICATION: Left flank pain. TECHNIQUE: CT abdomen and pelvis without contrast. COMPARISON: None. FINDINGS: Lower chest: Scattered atelectasis. Liver: Normal in size and attenuation. No suspicious masses. Gallbladder and bile ducts: No stones or inflammation. No biliary dilatation. Pancreas: Unremarkable. No mass or inflammation. Spleen: Normal in size. No masses. Adrenal glands: Normal in size. No nodules. Kidneys: Trace left perinephric edema. Normal in size. No suspicious masses, stones, or hydronephrosis. GI tract: Moderate colonic stool burden. Mild colonic diverticulosis. Normal in caliber. No sign of mass or inflammation. Normal appendix. Vasculature: Mild aortoiliac arterial calcifications. Abdominal aorta is normal in caliber. Lymph nodes: No lymphadenopathy. Peritoneum/Abdominal Wall: Unremarkable. No sign of mass or infiltration. No free air or significant free fluid. Pelvis: Unremarkable. No pelvic masses. Bones: Unremarkable for age. IMPRESSION: Trace left perinephric edema. Nonspecific but recommend correlation with urinalysis to exclude UTI. No hydronephrosis or obstructive uropathy. Colonic diverticulosis without diverticulitis. Moderate colonic stool burden. Please note that all CT scans at this facility use dose modulation, iterative reconstruction, and/or weight-based dosing when appropriate to reduce radiation dose to as low as reasonably achievable. Dictated by David Villareal MD @ 05/08/2023 4:17:51 PM (Electronically Signed)
--- NOTE | 2023-05-08 15:22 | ED.ABDPAIN ---
HPI - Abdominal Pain General Chief Complaint: Abdominal Pain <Mick Olga Chucho - Last Filed: 05/09/23 08:16> Stated Complaint: Kidney pain <Mick Rankin - Last Filed: 05/09/23 08:16> Time Seen by Provider: 05/08/23 14:50 <Mick Olga Chucho - Last Filed: 05/09/23 08:16> Source: patient <Mick Rankin - Last Filed: 05/09/23 08:16> Mode of arrival: EMS <Mick Rankin - Last Filed: 05/09/23 08:16> Limitations: no limitations <Mick Rankin - Last Filed: 05/09/23 08:16> History of Present Illness HPI narrative: Patient is a 37-year-old male with a history of end-stage renal disease secondary to hypertension presenting to the emergency department for left flank pain. He states the pain has been going on for 2 weeks. The pain does radiate to his left upper quadrant the mid epigastric region. Denies having symptoms like this before. He is a [facility] had dialysis this morning without issues. He went to urgent care today they note blood in his urine flow was sent to the emergency department for a CT scan. There is concerned for infection verses a stone. He does still produce a small amount of urine. Denies fevers, chills, chest pain, shortness of breath colitis, dizziness, diarrhea, constipation, dysuria. No other concerns noted at this time <Mick Rankin - Last Filed: 05/09/23 08:16> Related Data Home Medications: Home Medications Medication Instructions Recorded Confirmed amlodipine 10 mg tablet 10 mg PO QDAY 04/03/22 05/08/23 benazepril 20 mg tablet 20 mg PO BID 04/03/22 05/08/23 carvedilol 12.5 mg tablet 12.5 mg PO BID 04/03/22 05/08/23 hydralazine 50 mg tablet 50 mg PO TID 04/03/22 05/08/23 calcium acetate(phosphat bind) 667 1,334 mg PO 3XD 10/25/22 05/08/23 mg capsule omeprazole 40 mg capsule,delayed 40 mg PO DAILY 10/25/22 05/08/23 release albuterol sulfate 90 mcg/actuation inhalation 05/08/23 05/08/23 aerosol inhaler (Ventolin HFA) cyanocobalamin (vitamin B-12) 1,000 mcg PO DAILY 05/08/23 05/08/23 1,000 mcg tablet irbesartan 300 mg tablet 300 mg PO DAILY 05/08/23 05/08/23 isosorbide mononitrate 30 mg mg PO 05/08/23 05/08/23 tablet,extended release 24 hr pantoprazole 20 mg tablet,delayed 20 mg PO DAILY 05/08/23 05/08/23 release prochlorperazine maleate 5 mg mg PO 05/08/23 05/08/23 tablet sertraline 50 mg tablet 50 mg PO DAILY 05/08/23 05/08/23 torsemide 100 mg tablet mg PO 05/08/23 05/08/23 Previous Rx's Medication Instructions Recorded prednisone 20 mg tablet 20 mg PO DAILY #7 tabs 10/17/22 codeine 8 mg-guaifenesin 200 mg/5 5 ml PO Q4-6H PRN cough #473 mL 10/21/22 mL oral liquid trazodone 50 mg tablet 50 mg PO QHS Insomnia #30 tabs 12/27/22 cephalexin 250 mg tablet 250 mg PO BID #14 tabs 05/08/23 <Mick Rankin DO - Last Filed: 05/09/23 08:16> Allergies/Adverse Reactions: Allergies Allergy/AdvReac Type Severity Reaction Status Date / Time diphenhydramine Allergy Severe Seizure Verified 05/08/23 11:59 [From Benadryl] hydrocodone Allergy Severe Seizure Verified 05/08/23 11:59 morphine Allergy Severe Seizure Verified 05/08/23 11:59 coconut oil Allergy Mild Hives Verified 05/08/23 11:59 ibuprofen AdvReac Severe Kidney Verified 05/08/23 11:59 Disease NSAIDS (Non-Steroidal AdvReac Severe Kidney Verified 05/08/23 11:59 Anti-Inflamma Disease <Mick Rankin DO - Last Filed: 05/09/23 08:16> Review of Systems Status of ROS Reports: 10 or more systems reviewed and unremarkable except as noted in History and below <Mick Rankin DO - Last Filed: 05/09/23 08:16> [facility] Medical History: Medical History Left flank pain ?R10.9 - Unspecified abdominal pain (ICD-10) Insomnia ?G47.00 - Insomnia, unspecified (ICD-10) Depression ?F32.A - Depression, unspecified (ICD-10) Episcleritis ?H15.109 - Unspecified episcleritis, unspecified eye (ICD-10) RLS (restless legs syndrome) ?G25.81 - Restless legs syndrome (ICD-10) Seizures ?R56.9 - Unspecified convulsions (ICD-10) Congestive heart failure ?I50.9 - Heart failure, unspecified (ICD-10) Hypertension ?I10 - Essential (primary) hypertension (ICD-10) End stage renal disease ?N18.6 - End stage renal disease (ICD-10) Ear pain ?H92.09 - Otalgia, unspecified ear (ICD-10) <Mick Rankin DO - Last Filed: 05/09/23 08:16> Social History: Social History Smoking Status: Never smoker Do you use any of these nicotine containing products: None Second hand tobacco smoke exposure: No How often do you have a drink containing alcohol: never How often do you have six or more drinks on one occasion: Never AUDIT-C Alcohol total score: 0 Non-prescribed substance use: denies use Little interest or pleasure in doing things: nearly every day Feeling down, depressed, or hopeless: nearly every day service: No <Mick Rankin DO - Last Filed: 05/09/23 08:16> Exam Narrative: Exam Narrative: Const: Well-nourished, Well-developed, in mild distress Eyes: PERRL, no conjunctival injection, and symmetrical lids HENT: Atraumatic external nose and ears. Moist mucous membranes. Neck: Symmetric, trachea midline, No thyromegaly. CVS: RRR, No murmurs or gallops. Peripheral pulses 2+ and equal in all extremities RESP: Unlabored respiratory effort. Clear to auscultation bilaterally. GI: Nontender/Nondistended, No rebound or guarding. Left CVA tenderness MSK:Extremities w/o deformity, Normal Active ROM Skin: Warm, Dry. No rashes or lesions. Neuro: Normal Muscle tone, No focal neurological deficits. Psych: Awake, Alert, & Oriented x3. Appropriate mood and affect. <Mick Rankin DO - Last Filed: 05/09/23 08:16> Const: Vital Signs, click to edit/add: Vital Signs - 24 hr 05/08/23 14:55 05/08/23 15:02 05/08/23 16:19 Temperature 98.2 F Pulse Rate 81 73 Pulse Rate [Pulse Oximeter] 77 Respiratory Rate 16 14 12 Blood Pressure 180/113 H 182/129 H Blood Pressure [Le ft Upper Arm] 182/123 H Pulse Oximetry 99 99 98 Oxygen Delivery Me thod Room Air 05/08/23 16:31 05/08/23 17:01 05/08/23 17:31 Temperature Pulse Rate 70 65 72 Pulse Rate [Pulse Oximeter] Respiratory Rate 12 14 12 Blood Pressure 167/106 H 160/110 H 175/121 H Blood Pressure [Le ft Upper Arm] Pulse Oximetry 98 97 98 Oxygen Delivery Me thod 05/08/23 18:02 05/08/23 18:22 Temperature 98.2 F Pulse Rate 68 Pulse Rate [Pulse Oximeter] 77 Respiratory Rate 12 12 Blood Pressure 169/120 H Blood Pressure [Le ft Upper Arm] 182/123 H Pulse Oximetry 98 Oxygen Delivery Me thod <Mick Rankin, DO - Last Filed: 05/09/23 08:16> Vital Signs, click to edit/add: Vital Signs - 24 hr 05/08/23 14:55 05/08/23 15:02 05/08/23 16:19 Temperature 98.2 F Pulse Rate 81 73 Pulse Rate [Pulse Oximeter] 77 Respiratory Rate 16 14 12 Blood Pressure 180/113 H 182/129 H Blood Pressure [Le ft Upper Arm] 182/123 H Pulse Oximetry 99 99 98 Oxygen Delivery Me thod Room Air 05/08/23 16:31 05/08/23 17:01 05/08/23 17:31 Temperature Pulse Rate 70 65 72 Pulse Rate [Pulse Oximeter] Respiratory Rate 12 14 12 Blood Pressure 167/106 H 160/110 H 175/121 H Blood Pressure [Le ft Upper Arm] Pulse Oximetry 98 97 98 Oxygen Delivery Me thod 05/08/23 18:02 05/08/23 18:22 Temperature 98.2 F Pulse Rate 68 Pulse Rate [Pulse Oximeter] 77 Respiratory Rate 12 12 Blood Pressure 169/120 H Blood Pressure [Le ft Upper Arm] 182/123 H Pulse Oximetry 98 Oxygen Delivery Me thod <Mine Gifford MD - Last Filed: 05/08/23 17:48> Course Reevaluation(s) Time of Reevaluation #1: 16:57 <Mine Gifford MD - Last Filed: 05/08/23 17:48> Reevaluation #1: Reviewed CT report with [place], provided copy of the report for him to take to his safety and skill based pay manager. I would favor treating for a urinary tract infection / pyelonephritis while we await culture results. He is in agreement. He has no antibiotic allergies. I have written for Rocephin 1 g IV, this should be fine for his end-stage renal disease. Will send prescription for oral antibiotic renally dosed for outpatient basis. Will discharge to home once he has had his IV Rocephin. Do not see that he requires hospitalization at this point but will make sure he is aware for appropriate signs and symptoms for return P <Mine Gifford MD - Last Filed: 05/08/23 17:48> Time of Reevaluation #2: 17:48 <Mine Gifford MD - Last Filed: 05/08/23 17:48> Reevaluation #2: Patient requesting a dose of Compazine prior to discharge. Did have some nausea earlier and Zofran did not really help. He has taken Compazine both IV and oral in the past per report. Reports he does have oral Compazine at home. Did review that there is no dosage adjustment necessary in up-to-date. Will give 5 mg Compazine prior to discharge. His pain is reported to be better. <Mine Gifford MD - Last Filed: 05/08/23 17:48> Vital Signs Vital signs: Initial Vital Signs Temperature 98.2 F 05/08/23 14:55 Temperature Source Temporal Artery Scan 05/08/23 14:55 Pulse Rate 77 05/08/23 14:55 Pulse Rhythm Regular 05/08/23 14:55 Respiratory Rate 16 05/08/23 14:55 Blood Pressure 182/123 H 05/08/23 14:55 Blood Pressure Mean 142 H 05/08/23 14:55 Blood Pressure Position Sitting 05/08/23 14:55 Pulse Oximetry 99 05/08/23 14:55 Oxygen Delivery Method Room Air 05/08/23 14:55 Vital Signs Temperature 98.2 F 05/08/23 14:55 Pulse Rate 77 05/08/23 14:55 Respiratory Rate 16 05/08/23 14:55 Blood Pressure 182/123 H 05/08/23 14:55 Pulse Oximetry 99 05/08/23 14:55 Oxygen Delivery Method Room Air 05/08/23 14:55 Temperature 98.2 F 05/08/23 18:22 Pulse Rate 77 05/08/23 18:22 Respiratory Rate 12 05/08/23 18:22 Blood Pressure 182/123 H 05/08/23 18:22 Pulse Oximetry 98 05/08/23 18:02 Oxygen Delivery Method Room Air 05/08/23 14:55 <Mick Rankin, DO - Last Filed: 05/09/23 08:16> Initial Vital Signs Temperature 98.2 F 05/08/23 14:55 Temperature Source Temporal Artery Scan 05/08/23 14:55 Pulse Rate 77 05/08/23 14:55 Pulse Rhythm Regular 05/08/23 14:55 Respiratory Rate 16 05/08/23 14:55 Blood Pressure 182/123 H 05/08/23 14:55 Blood Pressure Mean 142 H 05/08/23 14:55 Blood Pressure Position Sitting 05/08/23 14:55 Pulse Oximetry 99 05/08/23 14:55 Oxygen Delivery Method Room Air 05/08/23 14:55 Vital Signs Temperature 98.2 F 05/08/23 14:55 Pulse Rate 77 05/08/23 14:55 Respiratory Rate 16 05/08/23 14:55 Blood Pressure 182/123 H 05/08/23 14:55 Pulse Oximetry 99 05/08/23 14:55 Oxygen Delivery Method Room Air 05/08/23 14:55 Temperature 98.2 F 05/08/23 18:22 Pulse Rate 77 05/08/23 18:22 Respiratory Rate 12 05/08/23 18:22 Blood Pressure 182/123 H 05/08/23 18:22 Pulse Oximetry 98 05/08/23 18:02 Oxygen Delivery Method Room Air 05/08/23 14:55 <Mine Gifford MD - Last Filed: 05/08/23 17:48> Medications Administered Medications: Discontinued Medications Generic Name Dose Route Start Last Admin Trade Name Freq PRN Reason Stop Dose Admin Hydromorphone HCl 0.5 mg 05/08/23 15:06 05/08/23 15:40 Hydromorphone 0.5 Mg/0.5 Ml Inj IVP 0.5 mg Q10M PRN Administration Ceftriaxone Sodium 1 gm/ 100 mls @ 200 mls/hr 05/08/23 16:59 05/08/23 17:47 Sodium Chloride IVPB 05/08/23 17:00 Infused ONCE ONE Infusion Ondansetron HCl 4 mg 05/08/23 16:14 05/08/23 16:25 Ondansetron 2 Mg/Ml Inj IVP 05/08/23 16:15 4 mg ONCE ONE Administration Prochlorperazine 5 mg 05/08/23 17:47 05/08/23 17:50 Prochlorperazine 5 Mg/Ml Vial IVP 05/08/23 17:48 5 mg ONCE ONE Administration <Mick Rankin DO - Last Filed: 05/09/23 08:16> Discontinued Medications Generic Name Dose Route Start Last Admin Trade Name Freq PRN Reason Stop Dose Admin Hydromorphone HCl 0.5 mg 05/08/23 15:06 05/08/23 15:40 Hydromorphone 0.5 Mg/0.5 Ml Inj IVP 0.5 mg Q10M PRN Administration Ceftriaxone Sodium 1 gm/ 100 mls @ 200 mls/hr 05/08/23 16:59 05/08/23 17:47 Sodium Chloride IVPB 05/08/23 17:00 Infused ONCE ONE Infusion Ondansetron HCl 4 mg 05/08/23 16:14 05/08/23 16:25 Ondansetron 2 Mg/Ml Inj IVP 05/08/23 16:15 4 mg ONCE ONE Administration Prochlorperazine 5 mg 05/08/23 17:47 05/08/23 17:50 Prochlorperazine 5 Mg/Ml Vial IVP 05/08/23 17:48 5 mg ONCE ONE Administration <Mine Gifford MD - Last Filed: 05/08/23 17:48> MDM - Abdominal Pain MDM Narrative Medical decision making narrative: Patient is a 37-year-old male presenting to the emergency department for left flank pain. There was concern for infection from Urgent Care but the urine there shows a few white blood cells and bacteria but no leukocyte esterases or nitrites. I believe it is unlikely at this time he has nephrolithiasis. He is oliguric and I am hesitant to give the patient IV contrast as it was further injure his kidney. He was given Dilaudid for pain. Also ordered a CBC, CMP, lipase. Patient will be signed out to Dr. Asher pending CT scan and lab work. <Mick Rankin DO - Last Filed: 05/09/23 08:16> Lab Data Attestation: I reviewed the patient's lab results. <Mine Gifford MD - Last Filed: 05/08/23 17:48> Labs: Lab Results 05/08/23 05/08/23 Range/Units 15:35 16:15 WBC 5.90 (4.50-11.00) K/uL RBC 4.87 (4.30-5.90) m/uL Hgb 13.2 L (13.5-17.5) gm/dL Hct 41.7 (37.0-53.0) % MCV 86 (80-100) fL MCH 27 (26-34) pg MCHC 32 (32-36) gm/dL RDW Coeff of [place] 15.1 (11.5-15.5) % Plt Count 368 (140-440) K/uL Neut % (Auto) 56.6 (42.0-72.0) % Lymph % (Auto) 22.0 (20-44) % Gordon % (Auto) 9.3 (0.0-11.0) % Eos % (Auto) 10.5 H (0.0-7.0) % Baso % (Auto) 0.8 (0.0-3.0) % Neut # (Auto) 3.33 (1.7-7.0) K/uL Lymph # (Auto) 1.30 (0.90-2.90) K/uL Gordon # (Auto) 0.50 (0.00-0.90) K/UL Eos # (Auto) 0.60 H (0.00-0.50) K/uL Baso # (Auto) 0.05 (0.00-0.30) K/uL Abs Immat Gran (auto) 0.05 (0.00-0.30) K/uL Imm/Tot Granulo (auto) 0.8 % Sodium 138 (135-149) mmol/L Potassium 4.5 (3.6-5.1) mmol/L Chloride 93 L (96-114) mmol/L Carbon Dioxide 29 (20-32) mmol/L Anion Gap 16 H (7-15) mEq/L BUN 21 (5-24) mg/dL Creatinine 7.7 H (0.5-1.5) mg/dL Estimated GFR 9 ml/min Glucose 96 (60-115) mg/dL Calcium 10.0 (8.4-10.6) mg/dL Total Bilirubin 0.9 (0.1-1.5) mg/dL AST 25 (12-35) U/L ALT 14 (4-50) U/L Alkaline Phosphatase 62 (40-150) U/L Total Protein 10.0 H (6.0-8.3) g/dL Albumin 5.7 H (3.3-5.0) g/dL Lipase 517 H (23-300) U/L Urine Color Yellow (Yellow) Urine Appearance Clear (Clear) Urine pH 8.5 (5.0-8.5) Ur Specific [place] 1.015 (1.000-1.030) Urine Protein 3+ A (Negative) Urine Glucose (UA) Negative (Negative) Urine Ketones Negative (Negative) Urine Blood 1+ A (Negative) Urine Nitrite Negative (Negative) Urine Bilirubin Negative (Negative) Urine Urobilinogen 0.2 (0.2-1.0) Ur Leukocyte Esterase Trace A (Negative) Urine RBC 0-2 (0-2) Urine WBC 0-2 (0-5) Ur Squamous Epith Cells None (None-Few) Urine Bacteria None (None) <Mick Rankin, DO - Last Filed: 05/09/23 08:16> Lab Results 05/08/23 05/08/23 Range/Units 15:35 16:15 WBC 5.90 (4.50-11.00) K/uL RBC 4.87 (4.30-5.90) m/uL Hgb 13.2 L (13.5-17.5) gm/dL Hct 41.7 (37.0-53.0) % MCV 86 (80-100) fL MCH 27 (26-34) pg MCHC 32 (32-36) gm/dL RDW Coeff of Ivett 15.1 (11.5-15.5) % Plt Count 368 (140-440) K/uL Neut % (Auto) 56.6 (42.0-72.0) % Lymph % (Auto) 22.0 (20-44) % Gordon % (Auto) 9.3 (0.0-11.0) % Eos % (Auto) 10.5 H (0.0-7.0) % Baso % (Auto) 0.8 (0.0-3.0) % Neut # (Auto) 3.33 (1.7-7.0) K/uL Lymph # (Auto) 1.30 (0.90-2.90) K/uL Gordon # (Auto) 0.50 (0.00-0.90) K/UL Eos # (Auto) 0.60 H (0.00-0.50) K/uL Baso # (Auto) 0.05 (0.00-0.30) K/uL Abs Immat Gran (auto) 0.05 (0.00-0.30) K/uL Imm/Tot Granulo (auto) 0.8 % Sodium 138 (135-149) mmol/L Potassium 4.5 (3.6-5.1) mmol/L Chloride 93 L (96-114) mmol/L Carbon Dioxide 29 (20-32) mmol/L Anion Gap 16 H (7-15) mEq/L BUN 21 (5-24) mg/dL Creatinine 7.7 H (0.5-1.5) mg/dL Estimated GFR 9 ml/min Glucose 96 (60-115) mg/dL Calcium 10.0 (8.4-10.6) mg/dL Total Bilirubin 0.9 (0.1-1.5) mg/dL AST 25 (12-35) U/L ALT 14 (4-50) U/L Alkaline Phosphatase 62 (40-150) U/L Total Protein 10.0 H (6.0-8.3) g/dL Albumin 5.7 H (3.3-5.0) g/dL Lipase 517 H (23-300) U/L Urine Color Yellow (Yellow) Urine Appearance Clear (Clear) Urine pH 8.5 (5.0-8.5) Ur Specific [place] 1.015 (1.000-1.030) Urine Protein 3+ A (Negative) Urine Glucose (UA) Negative (Negative) Urine Ketones Negative (Negative) Urine Blood 1+ A (Negative) Urine Nitrite Negative (Negative) Urine Bilirubin Negative (Negative) Urine Urobilinogen 0.2 (0.2-1.0) Ur Leukocyte Esterase Trace A (Negative) Urine RBC 0-2 (0-2) Urine WBC 0-2 (0-5) Ur Squamous Epith Cells None (None-Few) Urine Bacteria None (None) <Mine Gifford MD - Last Filed: 05/08/23 17:48> Imaging Data CT scan - abdomen: Attestation: I have reviewed the pertinent imaging results. <Mine Gifford MD - Last Filed: 05/08/23 17:48> Radiologist's impression: Patient: YOHANNES JOHNSON Facility:?[facility] Patient ID:?[id number] Site Patient ID:?[id number]. Site :?[id number] Study:?CT Abdomen/Pelvis W/O-05/08/2023 4:07:00 PM Ordering Physician:Samir Barton Final Report: INDICATION: Left flank pain. TECHNIQUE: CT abdomen and pelvis without contrast. COMPARISON: None. FINDINGS: Lower chest: Scattered atelectasis. Liver: Normal in size and attenuation. No suspicious masses. Gallbladder and bile ducts: No stones or inflammation. No biliary dilatation. Pancreas: Unremarkable. No mass or inflammation. Spleen: Normal in size. No masses. Adrenal glands: Normal in size. No nodules. Kidneys: Trace left perinephric edema. Normal in size. No suspicious masses, stones, or hydronephrosis. GI tract: Moderate colonic stool burden. Mild colonic diverticulosis. Normal in caliber. No sign of mass or inflammation. Normal appendix. Vasculature: Mild aortoiliac arterial calcifications. Abdominal aorta is normal in caliber. Lymph nodes: No lymphadenopathy. Peritoneum/Abdominal Wall: Unremarkable. No sign of mass or infiltration. No free air or significant free fluid. Pelvis: Unremarkable. No pelvic masses. Bones: Unremarkable for age. IMPRESSION: Trace left perinephric edema. Nonspecific but recommend correlation with urinalysis to exclude UTI. No hydronephrosis or obstructive uropathy. Colonic diverticulosis without diverticulitis. Moderate colonic stool burden. Please note that all CT scans at this facility use dose modulation, iterative reconstruction, and/or weight-based dosing when appropriate to reduce radiation dose to as low as reasonably achievable. Dictated by David Villareal MD @ 05/08/2023 4:17:51 PM (Electronic Signature) <Mine Gifford MD - Last Filed: 05/08/23 17:48> Discharge Plan Discharge Clinical Impression: Left flank pain <Mick Rankin DO - Last Filed: 05/09/23 08:16> Patient Disposition: Home, Self-Care <Mick Ranikn DO - Last Filed: 05/09/23 08:16> Condition: Stable <Mick Rankin DO - Last Filed: 05/09/23 08:16> Instructions: Kidney Infection (ED), Flank Pain (ED) <Mick Rankin DO - Last Filed: 05/09/23 08:16> Additional Instructions: Start oral antibiotic tomorrow, take as prescribed. Note you should take the oral antibiotic after dialysis, not before as the medicine can be dialyzed out. If you develop increasing abdominal pain, fever, have vomiting with abdominal pain, do need to be re-evaluated. We will await the urine culture. Please share the CT report with your safety and skill based pay manager when you see them at dialysis. <Mick Rankin DO - Last Filed: 05/09/23 08:16> Prescriptions: New cephalexin 250 mg tablet 250 mg PO BID Qty: 14 0RF Rx Instructions: note, take antibiotic after dialysis (not before) No Action omeprazole 40 mg capsule,delayed release(DR/EC) 40 mg PO DAILY calcium acetate(phosphat bind) 667 mg capsule 1,334 mg PO 3XD benazepril 20 mg tablet 20 mg PO BID amlodipine 10 mg tablet 10 mg PO QDAY hydralazine 50 mg tablet 50 mg PO TID carvedilol 12.5 mg tablet 12.5 mg PO BID Rx Instructions: must administer with a meal/food codeine-guaifenesin 8-200 mg/5 mL liquid 5 ml PO Q4-6H PRN (Reason: cough) Qty: 473 0RF isosorbide mononitrate 30 mg tablet extended release 24 hr PO irbesartan 300 mg tablet 300 mg PO DAILY prochlorperazine maleate 5 mg tablet PO albuterol sulfate [Ventolin HFA] 90 mcg/actuation HFA aerosol inhaler inhalation cyanocobalamin (vitamin B-12) 1,000 mcg tablet 1,000 mcg PO DAILY pantoprazole 20 mg tablet,delayed release (DR/EC) 20 mg PO DAILY sertraline 50 mg tablet 50 mg PO DAILY torsemide 100 mg tablet PO prednisone 20 mg tablet 20 mg PO DAILY Qty: 7 0RF trazodone 50 mg tablet 50 mg PO QHS Qty: 30 0RF <Mick Rankin DO - Last Filed: 05/09/23 08:16> Follow Up/Referrals: Stef Ho MD [Primary Care Provider] - <Mick Rankin DO - Last Filed: 05/09/23 08:16> Stand Alone Forms: MyHealth Info Instructions <Mick Rankin DO - Last Filed: 05/09/23 08:16>
[2023-05-08] MEDS: HYDROmorphone 0.5 mg/0.5 ml inj IVP (15:40)
[2023-05-08 16:01] LABS: Albumin* 5.7 g/dL (3.3-5.0); Chloride* 93 mmol/L (96-114); Sodium* 138 mmol/L (135-149)
[2023-05-08 16:02] LABS: Potassium* 4.5 mmol/L (3.6-5.1)
[2023-05-08 16:04] LABS: Alkaline Phosphatase* 62 U/L (40-150); Anion Gap 16 mEq/L (7-15); Aspartate Amino Transferase* 25 U/L (12-35); Bilirubin Total* 0.9 mg/dL (0.1-1.5); Blood Urea Nitrogen* 21 mg/dL (5-24); Carbon Dioxide* 29 mmol/L (20-32); Creatinine* 7.7 mg/dL (0.5-1.5); Estimated Glomerular Filt Rate 9 ml/min
[2023-05-08 16:05] LABS: Alanine Aminotransferase* 14 U/L (4-50); Glucose* 96 mg/dL (60-115); Lipase* 517 U/L (23-300)
[2023-05-08 16:16] LABS: Basophils Absolute Auto 0.05 K/uL (0.00-0.30); Basophils Percent Auto 0.8 % (0.0-3.0); Eosinophils Percent Auto 10.5 % (0.0-7.0); Hematocrit 41.7 % (37.0-53.0); Hemoglobin* 13.2 gm/dL (13.5-17.5); Immature Granulocytes Abs Auto 0.05 K/uL (0.00-0.30); Immature Granulocytes Pct Auto 0.8 %; Mean Corpuscular HGB Conc 32 gm/dL (32-36); Mean Corpuscular Hemoglobin 27 pg (26-34); Mean Corpuscular Volume 86 fL (80-100); Monocytes Percent Auto 9.3 % (0.0-11.0); Neutrophils Absolute Auto 3.33 K/uL (1.7-7.0); Neutrophils Percent Auto 56.6 % (42.0-72.0); Platelet Count* 368 K/uL (140-440); RDW Coefficient of Variation % 15.1 % (11.5-15.5); Red Blood Count 4.87 m/uL (4.30-5.90)
[2023-05-08 16:17] LABS: Slide Review Reflex No
--- OUTSIDE RECORDS SUMMARY | 2023-05-08 16:21 | XMS_ITS | Encounter Summary ---
Author Name Unknown Organization [facility] Address [facility] [place] [address] Care Team Providers Care Automation Controls Expert Name Role Phone No Ref-Primary, Physician Primary Care Provider Reason for Referral * Consultation (Urgent: 3-5 Days) - Pending Review Specialty Diagnoses / Procedures Referred By Contac t Referred To Contact Diagnoses Tooth infection Marcus Marquez MD [id number] [id number] Referral ID Status Reason Start Date Expiration Date V isits Requested Visits Authorized [id number] Pending Review 07/04/2022 07/04/2023 1 1 Question Answer Preferred Location: Other (external) - Use Comments - Per patient preference Non-internal location selection reason: Patient Preference/Choice Scheduling Instructions: Please call to schedule your appointment Class External referral [5] Type: Other - Use Comments Urgency: Routine Area: left - Left first maxillary molar Upper/Lower: Upper Comments Please be aware that coverage of these services is subject to the terms and limitations of your health insurance plan. Call member services at your health plan with any benefit or coverage questions. Please call to schedule your appointment [facility] Reason for Visit * Reason Comments Chest Pain * Auth/Cert (Routine) Specialty Diagnoses / Procedures Referred By Contac t Referred To Contact Dialysis Diagnoses Elevated troponin Hypertensive urgency Chest pain, unspecified type Chest pain, unspecified type Elevated troponin Hypertensive urgency Sh Dialysis [address] [id number] Referral ID Status Reason Start Date Expiration Date Visits Re quested Visits Authorized [id number] 1 1 Encounter Details Date Type Department Care Team (Late st Contact Info) Description 07/03/2022 5:31 AM [facility] - 07/04/2022 6:30 PM [facility] Emergency [place] [address] [facility] [address] [id number] Garth Patel, DO [facility] [address] [place] [id number] Julia Blanchard DO [address] [id number] Marcus Marquez MD [address] [id number] Tooth infection (Primary Dx); Chest pain, unspecified type; Elevated troponin; Hypertensive urgency Discharge Disposition: Home or Self Care Social History Tobacco Use Types Packs/Day Years Used Date Smoking Tobacco: Never Assessed Sex and Gender Information Value Date Recorded Sex Assigned at Not on file Gender Identity Not on file Sexual Orientation Not on file COVID-19 Exposure Response Date Recorded In the last 10 days, have yo u been in contact with someone who was confirmed or suspected to have Coronavirus/COVID-19? No / Unsure 07/03/2022 5:40 AM [facility] documented as of this encounter Last Filed Vital Signs Vital Sign Reading Time Taken Comments Blood Pressure 123/68 07/04/2022 3:23 PM [facility] Pulse 99 07/04/2022 3:23 PM [facility] Temperature 37.1 ??C (98.7 ??F) 07/04/2022 3:23 PM CS T Respiratory Rate 18 07/04/2022 3:23 PM [facility] Oxygen Saturation 95% 07/04/2022 3:23 PM [facility] Inhaled Oxygen Concentration - - Weight 70.3 kg (155 lb) 07/03/2022 5:47 AM [facility] Height 165.1 cm (5' 5) 07/03/2022 5:47 AM [facility] Body Mass Index 25.79 07/03/2022 5:47 AM [facility] documented in this encounter Discharge Summaries * Marcus Marquez MD - 07/04/2022 10:57 AM CST [facility] Discharge Summary Salbador Justin Date of : 1985 Age: [age] year old Date of Admission: 07/03/2022 Date of Discharge: 07/04/2022 Admitting Physician: Julia Blanchard, DO Discharge Physician: Marcus Marquez MD Primary Provider: No Ref-Primary, Physician Primary Care Physician Phone Number: None Discharge Diagnoses: 1. Chest pain with trop elevation, suspect related to hypertensive urgency/emergency with demand ischemia (type 2 NSTEMI) related to missed hemodialysis x2. 2. ESRD??on HD (//Fri) with missed HD x2. 3. Anion gap metabolic acidosis due to above. 4. Hypertensive urgency/emergency related to missed HD. 5. Symptomatic hypotension with hemodialysis 07/04. 6. Anemia, acute on chronic (anemia of chronic disease/CKD), suspect dilutional component. 7. Left first maxillary molar odontogenic infection. 8. Left??upper dental pain due to above. 9. Recent left maxillary sinusitis. 10. Incidental lesion of liver (noted prior hospitalization). Allergies: Allergies Allergen Reactions ??? Diphenhydramine Anxiety and Other (See Comments) Pt reported seizure after having IV benadryl ??? Hydrocodone Other reaction(s): Seizures ??? Morphine Anaphylaxis ??? Ibuprofen Other (See Comments) ??? Nsaids Other (See Comments) ??? Coconut Oil Hives Discharge Medications: Current Discharge Medication List START taking these medications Details amoxicillin-clavulanate (AUGMENTIN) 500-125 MG tablet Take 1 tablet by mouth every 24 hours for 7 days Qty: 7 tablet, Refills: 0 Associated Diagnoses: Tooth infection HYDROmorphone (DILAUDID) 2 MG tablet Take 0.5 tablets (1 mg) by mouth every 6 hours as needed for severe pain (7-10) Qty: 5 tablet, Refills: 0 Associated Diagnoses: Tooth infection CONTINUE these medications which have NOT CHANGED Details amLODIPine (NORVASC) 10 MG tablet Take 1 tablet (10 mg) by mouth daily Qty: 30 tablet, Refills: 1 Associated Diagnoses: Benign essential hypertension hydrALAZINE (APRESOLINE) 50 MG tablet Take 1 tablet (50 mg) by mouth 2 times daily Qty: 60 tablet, Refills: 1 Associated Diagnoses: Benign essential hypertension lisinopril (ZESTRIL) 20 MG tablet Take 1 tablet (20 mg) by mouth daily Qty: 30 tablet, Refills: 1 Associated Diagnoses: Benign essential hypertension minoxidil (LONITEN) 2.5 MG tablet Take 1 tablet (2.5 mg) by mouth daily Qty: 30 tablet, Refills: 1 Associated Diagnoses: Benign essential hypertension Discharge Instructions and Follow-Up: Discharge Orders Dental Referral Follow-up and recommended labs and tests Follow-up with primary care provider within 1-2 weeks for hospital follow-up. No follow up labs or test are needed. Follow-up with a dentist for left tooth infection in the next 1-2 weeks. Activity Your activity upon discharge: activity as tolerated Reason for your hospital stay 1. Chest pain with trop elevation, suspect related to hypertensive urgency/emergency with demand ischemia (type 2 NSTEMI) related to missed hemodialysis x2. 2. ESRD??on HD (//Fri) with missed HD x2. 3. Anion gap metabolic acidosis due to above. 4. Hypertensive urgency/emergency related to missed HD. 5. Symptomatic hypotension with hemodialysis 07/04. 6. Anemia, acute on chronic (anemia of chronic disease/CKD), suspect dilutional component. 7. Left first maxillary molar odontogenic infection. 8. Left??upper dental pain due to above. 9. Recent left maxillary sinusitis. 10. Incidental lesion of liver (noted prior hospitalization). Diet Follow this diet upon discharge: Orders Placed This Encounter Renal Diet (dialysis) Consultations This Hospital Stay: NEPHROLOGY IP CONSULT CARE MANAGEMENT / SOCIAL WORK IP CONSULT Admission History: Please see the H&P by Julia Blanchard DO on 07/03/2022 for complete details. Briefly, Salbador Justin is a 36 year old male with history including HTN; ESRD on HD; who presented 07/03/2022with chest pressure after missing 2 days of dialysis. ?? On initial evaluation 07/03, was afebrile, BP 185/106, HR 109, RR 32, sats 90's. Sinus tachycardia, no acute ischemic changes. Labs notable for CBC with hgb 8, WBC and plts normal; BMP with bicarb 19, AG 22, BUN and cr chronically elevated; trop 100. CXR 07/03 negative. Problem Oriented Hospital Course: Chest pain with trop elevation, suspect related to hypertensive urgency/emergency with demand ischemia (type 2 NSTEMI) related to missed hemodialysis x2. * Initial presentation as above. Noted last HD TECHNICAL SALES REPRESENTATIVE was 06/27. Trop 100 on admit. Nephrology consultedand pt dialyzed on admit. * On 07/04, symptoms improved with HD. Recent Labs Lab 07/03/22 0749 07/03/22 0551 CTROPT 101* 100* - Continue to treat other issues as noted. ?? ESRD??on HD (//Fri) with missed HD x2. Anion gap metabolic acidosis due to above. Symptomatic hypotension with hemodialysis 07/04. * Usually dialyzes TTS; followed by [facility]. * Initial presentation as above. On admit, noted that last run was 06/27; missed dialysis due to social issues 06/29 and 07/02. Nephrology consulted and underwent HD on admit as above. * On 07/04, pt had a hypotensive episode during dialysis, symptoms improved when BP's increased afterfluid bolus. - Continue outpatient HD TTS. ?? Hypertensive urgency/emergency related to missed HD. [TECHNICAL SALES REPRESENTATIVE: amlodipine 10 mg daily; hydralazine 50 mg BID; lisinopril 20 mg daily; minoxidil 2.5 mg daily.] * Initial presentation as above. BP elevated into the 210s/110s in ED. Improved with dose of IV labetalol in ED to 170s/80s. Underwent HD 07/03 as noted. * On 07/04, BP's improved. - Continue amlodipine; hydralazine; lisinopril; minoxidil. Anemia, acute on chronic (anemia of chronic disease/CKD), suspect dilutional component. * Pt with chronically low hgb; mostly in 9-10 range over the past year TECHNICAL SALES REPRESENTATIVE. * Initial presentation as above. Hgb 8 on admit. Iron studies on admit suggested anemia of chronic disease. No overt clinical signs of major bleeding on admit; denied acute blood loss other than a speck of blood in recent vomiting. Recent Labs Lab 07/04/22 1011 07/03/22 0551 HGB 7.8* 8.0* - Continue to monitor CBC outpatient. ?? Left first maxillary molar odontogenic infection. Left??upper dental pain due to above. Recent left maxillary sinusitis. * Noted during his 05/27/2022 admit at [facility]. Underwent imaging and found to have left maxillary sinusitis. Discharged on amoxicillin-clavulanate. Had not been able to follow up with dentist for management. Noted history of previous dental infections with associated abscess requiring tooth extraction and IV antibiotics. * CT dental on admit 07/03 showed left premaxillary soft tissue swelling favored to be due to an odontogenic infection most likely arising from the left first maxillary molar; noted that this tooth showed a carious lesion and periapical lucency concerning for apical periodontitis and there was dehiscence of the left maxillary outer cortex around this tooth root towards the premaxillary soft tissues in the area of inflammation and nodefinite periosteal abscess was appreciated; mild mucosal thickening in the inferior left maxillarysinus; no air-fluid layers in the sinuses; remaining paranasal sinuses were clear. * Started amoxicillin-clavulanate 07/04. - Discharge on amoxicillin-clavulanate (started 07/04) for another 7 days. - Referral to a dentist. - PRN acetaminophen, PRN hydromorphone (only opioid he tolerates); minimize opioids as able. ?? Incidental lesion of liver. * 05/27/2022 CT AP showed 1.3 cm hypodense focus in the right hepatic lobe, indeterminate, could represent hepatic hemangioma versus other hepatic lesions??(could further assess with contrast-enhancedMRI on nonemergent basis). ?? - Needs outpatient follow up with PCP. ?? Unhoused. * On admit, noted that pt was living in hotel near his dialysis center, had plans to try to get into an apartment but having some difficulty getting appropriate paperwork together. * SW/CC consulted. Pending Results: Unresulted Labs Ordered in the Past 30 Days of this Admission No orders found for last 31 day(s). Discharge Disposition: Discharged to home. Discharge Time: Approximately 30 minutes. Condition and Physical on Discharge: See progress note on the same date as this discharge summary. [facility] Studies, Lab Findings and Procedures/Surgeries: Results for orders placed or performed during the hospital encounter of 07/03/22 XR Chest 2 Views Narrative EXAM: XR CHEST 2 VIEWS LOCATION: [facility] DATE/TIME: 07/03/2022 6:19 AM INDICATION: Chest pain. COMPARISON: None. Impression IMPRESSION: Negative chest. CT Facial Bones with Contrast Narrative CT SCAN OF THE FACE WITH CONTRAST 07/03/2022 10:30 AM HISTORY: Evaluate for abscess, left maxilla dental pain, recent left maxillary sinusitis. TECHNIQUE: Axial scans of the face following intravenous contrast with sagittal and coronal reformations. Radiation dose for this scan was reduced using automated exposure control, adjustment of the mA and/or kV according to patient size, or iterative reconstruction technique. 75 mL Isovue-370 COMPARISON: Facial CT 04/14/2022. FINDINGS: There appears to be left premaxillary soft tissue swelling. No definite periosteal abscess identified. Carious lesion of the left maxillary first molar with associated periapical lucency. Periapical lucency of this tooth shows dehiscence of the outer cortex of the maxilla (series 2 image 55). No other suspicious inflammation or fluid collection within the visualized face. No evidence of facial bone fracture. Mild mucosal thickening in the inferior left maxillary sinus. Remaining paranasal sinuses are clear. No air-fluid layers in the sinuses. Visualized intracranial structures are unremarkable. Impression IMPRESSION: 1. Left premaxillary soft tissue swelling favored to be due to an odontogenic infection most likely arising from the left first maxillary molar. This tooth shows a carious lesion and periapical lucency concerning for apical periodontitis. There is dehiscence of the left maxillary outer cortex around this tooth root towards the premaxillary soft tissues in the area of inflammation. No definite periosteal abscess is appreciated. 2. Mild mucosal thickening in the inferior left maxillary sinus. No air-fluid layers in the sinuses. Remaining paranasal sinuses are clear. QUIQUE WATTERS MD [facility] documented in this encounter Medications at Time of Discharge Medication Sig Dispensed Refills Start Date End Date amLODIPine (NORVASC) 10 MG tabletIndications:Benign essential hypertension Take 1 tablet (10 mg) by mouth daily 30 tablet 1 05/29/2022 hydrALAZINE (APRESOLINE) 50 MG tabletIndications:Benign essential hypertension Take 1 tablet (50 mg) by mouth 2 times daily 60 tablet 1 05/29/2022 lisinopril (ZESTRIL) 20 MG tabletIndications:Benign essential hypertension Take 1 tablet (20 mg) by mouth daily 30 tablet 1 05/30/2022 minoxidil (LONITEN) 2.5 MG tabletIndications:Benign essential hypertension Take 1 tablet (2.5 mg) by mouth daily 30 tablet 1 05/29/2022 amoxicillin-clavulanate (AUGMENTIN) 500-125 MG tabletIndications:Tooth infection Take 1 tablet by mouth every 24 hours for 7 days 7 tablet 0 07/04/2022 07/11/2022 HYDROmorphone (DILAUDID) 2 MG tabletIndications:Tooth infection Take 0.5 tablets (1 mg) by mouth every 6 hours as needed for severe pain (7-10) 5 tablet 0 07/04/2022 09/14/2022 documented as of this encounter Progress Notes * Kirk Rae MD - 07/04/2022 10:59 AM CST Renal Medicine Inpatient Dialysis Note Salbador Justin Age: [age] year old Date of : 1985 Date of Admission: 07/03/2022 Hospital LOS: 1 Assessment/Plan: 1. ESRD -dialysis dependent -TTS [place] [facility] -followed by [facility] -last ran 06/27/22 ?? Outpatient dialysis orders: ?? 4 hours Left AVF TW 69 kg Off last 68.9 kg 3K ?? 2. Anemia -Mircera given 06/22/22 3. Metabolic Bone Disease -calcitriol with dialysis 1.25 mg -CaAc 4. HTN -amlodipine/benazepril/carvedilol/hydralazine/minoxidil/spironolactone -presenting BP elevated at dialysis 5. CP Continue TTS schedule Next 07/05/22 Interval History: Dialysis run parameters reviewed with agriculture professor at patient bedside. Seen on run Complicated by apparent seizure during run History of seizures Has occurred at outpatient unit as well Triggered by hypotension/bradycardia per patient Now baseline UF total 1 liter ROS GENERAL: NAD, No fever,chills R: NEGATIVE for significant cough or SOB CV: NEGATIVE for chest pain, palpitations EXT: no change edema ROS otherwise negative Dialysis Parameters: Vitals were reviewed Patient Vitals for the past 8 hrs: BP Temp Temp src Pulse Resp SpO2 07/04/22 1058 137/77 98.5 ??F (36.9 ??C) Oral 95 20 92 % 07/04/22 1035 (!) 163/85 -- -- 87 20 98 % 07/04/22 1030 (!) 155/87 -- -- 90 17 98 % 07/04/22 1015 129/73 -- -- 77 15 98 % 07/04/22 1000 134/74 -- -- 69 15 99 % 07/04/22 0945 123/61 -- -- 69 21 96 % 07/04/22 0940 (!) 84/38 -- -- 57 24 99 % 07/04/22 0930 120/66 -- -- 73 14 97 % 07/04/22 0915 129/63 -- -- 76 14 97 % 07/04/22 0900 (!) 151/61 -- -- 81 20 96 % 07/04/22 0845 (!) 156/80 -- -- 81 17 95 % 07/04/22 0830 (!) 156/86 -- -- 80 20 97 % 07/04/22 0815 (!) 157/81 -- -- 74 18 98 % 07/04/22 0800 (!) 157/96 -- -- 75 19 98 % 07/04/22 0745 (!) 154/95 -- -- 74 16 100 % 07/04/22 0735 (!) 161/88 -- -- 86 21 100 % 07/04/22 0730 -- 98.8 ??F (37.1 ??C) Oral -- -- -- 07/04/22 0725 (!) 146/77 98.6 ??F (37 ??C) Oral 106 15 -- 07/04/22 0720 -- -- -- -- -- 98 % I/O last 3 completed shifts: In: 0 Out: 1999 [Other:1999] Vitals: 07/03/22 0547 Weight: 70.3 kg (155 lb) Current Weight: 70.3 Dry Weight: 73 Dialysis Temp: 36.5 ??C Access Device: AVF Access Site: left Dialyzer: Revaclear Dialysis Bath: 2 Sodium Profile: n UF Goal: 1 Blood Flow Rate (mL/min): 400 Total Treatment Time (hrs): 3 Heparin: Low dose as required EPO dose: n Zemplar: n IV Fe: n Medications and Allergies: Reviewed Physical Exam: Seen and examined during course of dialysis run BP (!) 163/85 Pulse 87 Temp 98.8 ??F (37.1 ??C) (Oral) Resp 20 Ht 1.651 m (5' 5) Wt 70.3kg (155 lb) SpO2 98% BMI 25.79 kg/m?? GENERAL: awake, alert, follows HEENT: NC/AT, PERRLA, EOMI, non icteric, pharynx moist without lesion RESP: clear CV: RRR, normal S1 S2 ABDOMEN: S/NT, BS present MS: no edema EXT: access canulated without issue PSYCH: affect normal/bright Data: Recent Labs Lab 07/03/22 0551 NA 141 POTASSIUM 5.1 CHLORIDE 100 CO2 19* ANIONGAP 22* GLC 109* BUN 86.2* CR 21.81* GFRESTIMATED 3* CLAIRE 9.8 G Abdelrahman Rae MD [facility] - Nephrology [phone] [facility] * Sergio Kaur RN - 07/04/2022 10:42 AM CST Potassium Date Value Ref Range Status 07/03/2022 5.1 3.4 - 5.3 mmol/L Final Hemoglobin Date Value Ref Range Status 07/04/2022 7.8 (L) 13.3 - 17.7 g/dL Final Creatinine Date Value Ref Range Status 07/03/2022 21.81 (H) 0.67 - 1.17 mg/dL Final Urea Nitrogen Date Value Ref Range Status 07/03/2022 86.2 (H) 6.0 - 20.0 mg/dL Final Sodium Date Value Ref Range Status 07/03/2022 141 136 - 145 mmol/L Final No results found for: INR DIALYSIS PROCEDURE NOTE Hepatitis status of previous patient on machine log was checked and verified ok to use with this patients hepatitis status. Patient dialyzed for 3 hrs. on a K3 bath with a net fluid removal of 0.7L. A BFR of 300 ml/min withDr Akash ok with that BFR was obtained via a LAF using 15 gauge needles. The treatment plan was discussed with Dr. Hoffmann during the treatment. Total heparin received during the treatment: 0 units. Needle cannulation sites held x 10 min. ?? Meds given: none Complications: PT became symptomatically hypotensive about half way through the run, he also thought he may be having an aura, and thought he was going to seize. 300 ml NS given and VS stabilized. ?? Person educated: pt. Knowledge base substantial. Barriers to learning: NONE. Educated on access care via verbal mode. Patient verbalized understanding. Pt prefers verbal education style. ?? ICEBOAT? Timeout performed pre-treatment I: Patient was identified using 2 identifiers C: Consent Signed Yes E: Equipment preventative maintenance is current and dialysis delivery system OK to use B: Hepatitis B Surface Antigen: neg; Draw Date: 05/27/22 Hepatitis B Surface Antibody: Immune; Draw Date: 05/27/2022 O: Dialysis orders present and complete prior to treatment A: Vascular access verified and assessed prior to treatment T: Treatment was performed at a clinically appropriate time ?: Patient was allowed to ask questions and address concerns prior to treatment See Adult Hemodialysis flowsheet in [employer] for further details and post assessment. Machine water alarm in place and functioning. Transducer pods intact and checked every 15min. Pt returned via bed. Chlorine/Chloramine water system checked every 4 hours. Outpatient Dialysis at [facility] ?? Patient repositioned every 2 hours during the treatment. Post treatment report given to Cristhian Ybarra RN regarding 0.7L of fluid removed and last BP of 153/83. ?? Please remove patient dressing on AVF and AVG needle sites 24 hours after dialysis. If leaking occurs please apply a Band-Aid. [facility] * Marcus Marquez MD - 07/04/2022 7:20 AM CST [facility] Internal Medicine Hospitalist Progress Note 07/04/2022 I evaluated patient on the above date. Marcus Marquez Jr., MD [phone] (p) Text Page Vocera Assessment & Plan New actions/orders today (07/04/2022) are underlined. All lab results in the assessment and plan were reviewed. Salbador Justin is a 36 year old male with history including HTN; ESRD on HD; who presented 07/03/2022 with chest pressure after missing 2 days of dialysis. On initial evaluation 07/03, was afebrile, BP 185/106, HR 109, RR 32, sats 90's. Sinus tachycardia, no acute ischemic changes. Labs notable for CBC with hgb 8, WBC and plts normal; BMP with bicarb 19, AG 22, BUN and cr chronically elevated; trop 100. CXR 07/03 negative. Chest pain with trop elevation, suspect related to hypertensive urgency/emergency with demand ischemia (type 2 NSTEMI) related to missed hemodialysis x2. * Initial presentation as above. Noted last HD TECHNICAL SALES REPRESENTATIVE was 06/27. Trop 100 on admit. Nephrology consultedand pt dialyzed on admit. * On 07/04, symptoms improved with HD. Recent Labs Lab 07/03/22 0749 07/03/22 0551 CTROPT 101* 100* - Continue to treat other issues as noted. ESRD??on HD (/Fri) with missed HD x2. Anion gap metabolic acidosis due to above. Symptomatic hypotension with hemodialysis 07/04. * Usually dialyzes TTS; followed by [facility]. * Initial presentation as above. On admit, noted that last run was 06/27; missed dialysis due to social issues 06/29 and 07/02. Nephrology consulted and underwent HD on admit as above. * On 07/04, pt had a hypotensive episode during dialysis, symptoms improved when BP's increased afterfluid bolus. - Continue HD per nephrology. - Appreciate help from nephrology. ?? Hypertensive urgency/emergency related to missed HD. [TECHNICAL SALES REPRESENTATIVE: amlodipine 10 mg daily; hydralazine 50 mg BID; lisinopril 20 mg daily; minoxidil 2.5 mg daily.] * Initial presentation as above. BP elevated into the 210s/110s in ED. Improved with dose of IV labetalol in ED to 170s/80s. Underwent HD 07/03 as noted. * On 07/04, BP's improved. Dialyzed again. - Continue amlodipine; hydralazine; lisinopril; minoxidil. - Continue PRN IV hydralazine. ?? Anemia, acute on chronic (anemia of chronic disease/CKD), suspect dilutional component. * Pt with chronically low hgb; mostly in 9-10 range over the past year TECHNICAL SALES REPRESENTATIVE. * Initial presentation as above. Hgb 8 on admit. Iron studies on admit suggested anemia of chronic disease. No overt clinical signs of major bleeding on admit; denied acute blood loss other than a speck of blood in recent vomiting. Recent Labs Lab 07/03/22 0551 HGB 8.0* - Continue to monitor CBC outpatient. - Consider prbc transfusion if hgb </= 7.0 or if significant bleeding with hemodynamic instability or if symptomatic. Left first maxillary molar odontogenic infection. Left??upper dental pain due to above. Recent left maxillary sinusitis. * Noted during his 05/27/2022 admit at [facility]. Underwent imaging and found to have left maxillary sinusitis. Discharged on amoxicillin-clavulanate. Had not been able to follow up with dentist for management. Noted history of previous dental infections with associated abscess requiring tooth extraction and IV antibiotics. * CT dental on admit 07/03 showed left premaxillary soft tissue swelling favored to be due to an odontogenic infection most likely arising from the left first maxillary molar; noted that this tooth showed a carious lesion and periapical lucency concerning for apical periodontitis and there was dehiscence of the left maxillary outer cortex around this tooth root towards the premaxillary soft tissues in the area of inflammation and nodefinite periosteal abscess was appreciated; mild mucosal thickening in the inferior left maxillarysinus; no air-fluid layers in the sinuses; remaining paranasal sinuses were clear. - Start amoxicillin-clavulanate for another 7 days. - Referral to a dentist. - PRN acetaminophen, PRN hydromorphone (only opioid he tolerates); minimize opioids as able. ?? Incidental lesion of liver. * 05/27/2022 CT AP showed 1.3 cm hypodense focus in the right hepatic lobe, indeterminate, could represent hepatic hemangioma versus other hepatic lesions??(could further assess with contrast-enhancedMRI on nonemergent basis). - Needs outpatient follow up with PCP. Reynad. * On admit, noted that pt was living in hotel near his dialysis center, had plans to try to get into an apartment but having some difficulty getting appropriate paperwork together. - SW/CC consulted. Clinically Significant Risk Factors Present on Admission # Anion Gap Metabolic Acidosis: Highest Anion Gap = 22 mmol/L in last 2 days, will monitor and treat as appropriate # Hypertension: home medication list includes antihypertensive(s) # Overweight: Estimated body mass index is 25.79 kg/m?? as calculated from the following: Height as of this encounter: 1.651 m (5' 5). Weight as of this encounter: 70.3 kg (155 lb). COVID-19 testing. COVID-19 PCR Results COVID-19 PCR Results No data to display. COVID-19 Antibody Results, Testing for Immunity COVID-19 Antibody Results, Testing for Immunity No data to display. Diet: Renal Diet (dialysis) Prophylaxis: PCD's, ambulation. Nicholson Catheter: Not present Lines: None Code Status: Full Code Disposition Plan Expected discharge: Today recommended to prior living arrangement. Entered: Marcus Marquez MD 07/04/2022, 7:21 AM Interval History Had low blood pressures during hemodialysis, was symptomatic. Improved after fluids and BP's increased. Doing better overall since admit. Notes left mouth pain. Notes itching all over his body; hydroxyzine does not help. -Data reviewed today: I reviewed all new labs and imaging over the last 24 hours. I personally reviewed no images or EKG's today. Physical Exam , Blood pressure (!) 149/84, pulse 93, temperature 98.8 ??F (37.1 ??C), temperature source Oral, resp. rate 18, height 1.651 m (5' 5), weight 70.3 kg (155 lb), SpO2 98 %. O2 Device: Nasal cannula Oxygen Delivery: 2 LPM Vitals: 07/03/22 0547 Weight: 70.3 kg (155 lb) Vital Signs with Ranges Temp: [98 ??F (36.7 ??C)-98.8 ??F (37.1 ??C)] 98.8 ??F (37.1 ??C) Pulse: [82-115] 93 Resp: [8-32] 18 BP: (149-203)/(80-105) 149/84 SpO2: [91 %-99 %] 98 % Patient Vitals for the past 24 hrs: BP Temp Temp src Pulse Resp SpO2 07/04/22 0005 (!) 149/84 98.8 ??F (37.1 ??C) Oral 93 18 98 % 07/03/22 1952 (!) 164/93 -- -- 102 -- -- 07/03/22 1845 -- 98.6 ??F (37 ??C) -- -- 24 97 % 07/03/22 1817 (!) 158/92 98.3 ??F (36.8 ??C) Oral 115 22 91 % 07/03/22 1744 (!) 180/82 98.3 ??F (36.8 ??C) Oral 99 27 96 % 07/03/22 1740 (!) 175/86 98.3 ??F (36.8 ??C) Oral 86 28 -- 07/03/22 1730 (!) 163/96 -- -- 100 (!) 32 -- 07/03/22 1715 (!) 163/80 -- -- 95 28 -- 07/03/22 1700 (!) 169/84 -- -- 86 23 -- 07/03/22 1645 (!) 168/82 -- -- 84 23 -- 07/03/22 1630 (!) 172/88 -- -- 86 26 -- 07/03/22 1615 (!) 159/96 -- -- 89 19 96 % 07/03/22 1600 (!) 180/92 -- -- 92 23 96 % 07/03/22 1545 (!) 155/88 -- -- 84 20 95 % 07/03/22 1530 (!) 182/89 -- -- 88 22 95 % 07/03/22 1515 (!) 199/95 -- -- 90 24 96 % 07/03/22 1500 (!) 199/105 -- -- 95 -- -- 07/03/22 1436 (!) 200/100 -- -- 98 -- -- 07/03/22 1400 (!) 203/101 98 ??F (36.7 ??C) Oral 98 18 97 % 07/03/22 1318 (!) 180/93 98 ??F (36.7 ??C) Oral 93 -- 94 % 07/03/22 1230 (!) 176/100 -- -- 87 18 99 % 07/03/22 1215 (!) 162/98 -- -- 82 19 98 % 07/03/22 0800 (!) 172/87 -- -- 85 (!) 8 91 % I/O's Last 24 hours I/O last 3 completed shifts: In: 0 Out: 1999 [Other:1999] Constitutional: Awake, alert, pleasant, conversant. Respiratory: Diminished in bases. No crackles or wheezes. Cardiovascular: RRR, no m/r/g. GI: Skin/Integumen: Other: Data Labs reviewed. Recent Labs Lab 07/03/22 0551 WBC 10.6 HGB 8.0* MCV 86 PLT 288 NA 141 POTASSIUM 5.1 CHLORIDE 100 CO2 19* BUN 86.2* CR 21.81* ANIONGAP 22* CLAIRE 9.8 GLC 109* Recent Labs Lab Test 07/03/22 0551 05/29/22 0714 05/28/22 1258 05/27/22 1501 04/14/22 1259 GLC 109* 124* 75 79 81 Recent Labs Lab 07/03/22 0750 07/03/22 0551 WBC -- 10.6 SUJATA 1,553* -- Recent Results (from the past 24 hour(s)) CT Facial Bones with Contrast Narrative CT SCAN OF THE FACE WITH CONTRAST 07/03/2022 10:30 AM HISTORY: Evaluate for abscess, left maxilla dental pain, recent left maxillary sinusitis. TECHNIQUE: Axial scans of the face following intravenous contrast with sagittal and coronal reformations. Radiation dose for this scan was reduced using automated exposure control, adjustment of the mA and/or kV according to patient size, or iterative reconstruction technique. 75 mL Isovue-370 COMPARISON: Facial CT 04/14/2022. FINDINGS: There appears to be left premaxillary soft tissue swelling. No definite periosteal abscess identified. Carious lesion of the left maxillary first molar with associated periapical lucency. Periapical lucency of this tooth shows dehiscence of the outer cortex of the maxilla (series 2 image 55). No other suspicious inflammation or fluid collection within the visualized face. No evidence of facial bone fracture. Mild mucosal thickening in the inferior left maxillary sinus. Remaining paranasal sinuses are clear. No air-fluid layers in the sinuses. Visualized intracranial structures are unremarkable. Impression IMPRESSION: 1. Left premaxillary soft tissue swelling favored to be due to an odontogenic infection most likely arising from the left first maxillary molar. This tooth shows a carious lesion and periapical lucency concerning for apical periodontitis. There is dehiscence of the left maxillary outer cortex around this tooth root towards the premaxillary soft tissues in the area of inflammation. No definite periosteal abscess is appreciated. 2. Mild mucosal thickening in the inferior left maxillary sinus. No air-fluid layers in the sinuses. Remaining paranasal sinuses are clear. QUIQUE WATTERS MD Medications All medications were reviewed. ??? sodium chloride 0.9% 250 mL Intravenous Once in dialysis/CRRT ??? sodium chloride 0.9% 300 mL Hemodialysis Machine Once ??? amLODIPine 10 mg Oral Daily ??? hydrALAZINE 50 mg Oral BID ??? lisinopril 20 mg Oral Daily ??? minoxidil 2.5 mg Oral Daily ??? - MEDICATION INSTRUCTIONS - Does not apply Once ??? sodium chloride (PF) 3 mL Intracatheter Q8H sodium chloride 0.9%, acetaminophen OR acetaminophen, hydrALAZINE, HYDROmorphone, HYDROmorphone, HYDROmorphone, HYDROmorphone, hydrOXYzine OR hydrOXYzine, lidocaine 4%, lidocaine (buffered ornot buffered), melatonin, naloxone OR naloxone OR naloxone OR naloxone, ondansetron OR ondansetron, polyethylene glycol, prochlorperazine OR prochlorperazine OR prochlorperazine, senna-docusate OR senna-docusate, sodium chloride (PF) [facility] * Tanja Cody RN - 07/03/2022 5:48 PM CST Potassium Date Value Ref Range Status 07/03/2022 5.1 3.4 - 5.3 mmol/L Final Hemoglobin Date Value Ref Range Status 07/03/2022 8.0 (L) 13.3 - 17.7 g/dL Final Creatinine Date Value Ref Range Status 07/03/2022 21.81 (H) 0.67 - 1.17 mg/dL Final Urea Nitrogen Date Value Ref Range Status 07/03/2022 86.2 (H) 6.0 - 20.0 mg/dL Final Sodium Date Value Ref Range Status 07/03/2022 141 136 - 145 mmol/L Final No results found for: INR DIALYSIS PROCEDURE NOTE Hepatitis status of previous patient on machine log was checked and verified ok to use with this patients hepatitis status. Patient dialyzed for 3 hrs. on a K2 bath with a net fluid removal of 2L. A BFR of 300 ml/min with Dr Hoffmann ok with that BFR was obtained via a LAF using 15 gauge needles. The treatment plan was discussed with Dr. Hoffmann during the treatment. Total heparin received during the treatment: 0 units. Needle cannulation sites held x 15 min. Meds given: EPO Complications: Pt only wanted 2kg off and BFR at 300ml/min Dr Hoffmann aware and notified. Person educated: pt. Knowledge base substantial. Barriers to learning: NONE. Educated on access care via verbal mode. Patient verbalized understanding. Pt prefers verbal education style. ICEBOAT? Timeout performed pre-treatment I: Patient was identified using 2 identifiers C: Consent Signed Yes E: Equipment preventative maintenance is current and dialysis delivery system OK to use B: Hepatitis B Surface Antigen: neg; Draw Date: 05/27/22 Hepatitis B Surface Antibody: Immune; Draw Date: 05/27/2022 O: Dialysis orders present and complete prior to treatment A: Vascular access verified and assessed prior to treatment T: Treatment was performed at a clinically appropriate time ?: Patient was allowed to ask questions and address concerns prior to treatment See Adult Hemodialysis flowsheet in [facility] for further details and post assessment. Machine water alarm in place and functioning. Transducer pods intact and checked every 15min. Pt returned via bed. Chlorine/Chloramine water system checked every 4 hours. Outpatient Dialysis at [facility] Patient repositioned every 2 hours during the treatment. Post treatment report given to Cristhian John RN regarding 2L of fluid removed, last BP of 180/74, and patient pain rating of 0/10. Please remove patient dressing on AVF and AVG needle sites 24 hours after dialysis. If leaking occurs please apply a Band-Aid. [facility] * Kirk Rae MD - 07/03/2022 4:15 PM CST Renal Medicine Second visit Seen on dialysis run Dialysis run parameters reviewed with agriculture professor at patient bedside. UF 2 liter No access issues Next 07/04/22 Inpatient or outpatient Recent Labs Lab 07/03/22 0551 POTASSIUM 5.1 Kirk. Abdelrahman Rae [facility] [phone] [facility] * Patricia John RN - 07/03/2022 12:57 PM CST RECEIVING UNIT ED HANDOFF REVIEW ED Nurse Handoff Report was reviewed by: Patricia John RN on July 03, 2022 at 12:58 PM [facility] * Monse Kim - 07/03/2022 10:11 AM CST SPIRITUAL HEALTH SERVICES Progress Note [facility] - ED Referral: Visit for emotional support. I introduced myself and Services. Salbador shared that his situation is exhausting. He said he has friends, and they're aware he's in hospital. I offered a short blessing and invited him to reach out to as desired. Salbador expressed appreciation for his care; visit ended so he could sleep. remains available. Rev Monse Kim Associate Delivery Route Driver [facility] Phone Line [phone] [place] (Tuesdays & ) [phone] [facility] documented in this encounter H&P Notes * Julia Blanchard DO - 07/03/2022 8:27 AM CST [facility] History and Physical - Hospitalist Service Date of Admission: 07/03/2022 Assessment & Plan Salbador Justin is a 36 year old male admitted on 07/03/2022 with chest pressure after missing 2 days of dialysis Anion gap metabolic acidosis ESRD??on HD (//Fri) Usually compliant with dialysis, last run was 06/27/22. Missed dialysis due to social issues 06/29 and 07/02. Ruby Engineer is [facility] in [place]. K 5.1 Anion gap 22, CO2 19 - telemetry - nephrology consulted - plan dialysis today 07/03 - Monitor BMP daily. ?? HTN urgency BP elevated into the 210s/110s in ED. 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 Troponin elevation, possible demand ischemia with hypertensive urgency initial troponin of 100-->101 could remain elevated secondary to ESRD as well. Chest pressure reminds him of prior times he has missed dialysis. ??so far troponins flat. CXR clear without infiltrates. EKG sinus tachy - monitor for ongoing chest pain post dialysis - PRN pain meds available Anemia, acute on chronic? Hgb 8, suspect some component of chronic anemia with ESRD, but this is lower than his prior baseline which was 10-11 few months ago, slowly trickled down, was 9.1 ~1mo ago. Denies acute blood loss other than a speck of blood in recent vomiting. Iron 92, TIBC 198, Sat 46 - CBC in AM Left??upper dental pain Recent left maxillary sinusitis Noted during his 05/27/22 admit at [facility]. Underwent imaging and found to have left maxillary sinusitis. Discharged on augmentin. Has not been able to follow up with dentist for management. Hx of previous dental infections with associated abscess requiring tooth extraction and IV antibiotics. - CT dental - if evidence for abscess will consult OMFS - PRN tylenol, dilaudid (only opioid he tolerates), cannot take NSAIDs ?? Incidental lesion of liver 05/27/22 CT AP: 1.3 cm hypodense focus in the right hepatic lobe, indeterminate, could represent hepatic hemangioma versus other hepatic lesions??(could further assess with contrast-enhanced MRI on nonemergent basis). - Needs outpatient follow up with PCP. Unhoused Living in hotel near his dialysis center, has plans to try to get into an apartment but having somedifficulty getting appropriate paperwork together. - SW/CC consulted Diet: Renal Diet (dialysis) DVT Prophylaxis: Pneumatic Compression Devices Nicholson Catheter: Not present Lines: None Cardiac Monitoring: None Code Status: full code Clinically Significant Risk Factors Present on Admission # Anion Gap Metabolic Acidosis: Highest Anion Gap = 22 mmol/L in last 2 days, will monitor and treat as appropriate # Hypertension: home medication list includes antihypertensive(s) # Overweight: Estimated body mass index is 25.79 kg/m?? as calculated from the following: Height as of this encounter: 1.651 m (5' 5). Weight as of this encounter: 70.3 kg (155 lb). Disposition Plan Expected Discharge Date: 07/05/2022 Julia Blanchard DO Hospitalist Service [facility] Securely message with SwitchNote (more info) Text page via [facility] Paging/Directory Chief Complaint Chest pressure History is obtained from the patient, prior record review History of Present Illness Salbador Justin is a 36 year old male who presents with chest pressure after missing 2 dialysis sessions. He last dialyzed in [place] 06/27. He is currently unhoused and living in a hotel that is near his dialysis center. He got an offer to stay with a friend for a few days over the weekend and he planned to skip his dialysis on Friday and come back by Friday for his next dialysis (in order to save some money by not paying for hotel). He started to feel poorly on Friday morning, had an episode of vomiting and abdominal pain. He reports intermittent vomiting that is out of the blue that he has had for years. The abdominal pain associated with these vomiting episodes usually lasts a few moments and then resolves, but this time the pain lasted for 2 hours. He then started to get chest pressure and shortness of breath 07/02 evening. He had plans to get worked in to the dialysis scheduleat his normal center today, but presented to the ED due to increased pain. He also related ongoing left upper jaw pain that is sharp and radiates to his left rastafarian. He had this discomfort 05/27/22 admit at [facility] and underwent imaging, discharged with abx. After that the pain seemed to be better. He had recurrence of dental pain last week, similar to before, but then it went away. Came back last night again, associated with intermittent sharp radiating pain upwards. Denies fevers. Chills. He is working on trying to get an apartment, but having some trouble acquiring all the paperwork needed. [place] so having trouble obtaining his certificate. Past Medical History Anemia End stage renal disease Hypertension Myocardial infarction Past Surgical History Left forearm fistula Prior to Admission Medications Prior to Admission Medications Prescriptions Last Dose Informant Patient Reported? Taking? amLODIPine (NORVASC) 10 MG tablet 07/02/2022 at AM Self No Yes Sig: Take 1 tablet (10 mg) by mouth daily hydrALAZINE (APRESOLINE) 50 MG tablet 07/02/2022 at PM Self No Yes Sig: Take 1 tablet (50 mg) by mouth 2 times daily lisinopril (ZESTRIL) 20 MG tablet 07/02/2022 at AM Self No Yes Sig: Take 1 tablet (20 mg) by mouth daily minoxidil (LONITEN) 2.5 MG tablet 07/02/2022 at AM Self No Yes Sig: Take 1 tablet (2.5 mg) by mouth daily Facility-Administered Medications: None Physical Exam Vital Signs: Temp: 99 ??F (37.2 ??C) Temp src: Oral BP: (!) 172/87 Pulse: 85 Resp: (!) 8 SpO2: 91 %O2 Device: None (Room air) Weight: 155 lbs 0 oz Constitutional: Awake, alert, cooperative, no apparent distress Eyes: Conjunctiva and pupils examined and normal. HEENT: Moist mucous membranes, poor dentition, intermittent sharp left maxillary discomfort Respiratory: Clear to auscultation bilaterally, no crackles or wheezing. Cardiovascular: Regular rate and rhythm, normal S1 and S2, and no murmur noted. GI: Soft, non-distended, non-tender, normal bowel sounds. Lymph/Hematologic: No anterior cervical or supraclavicular adenopathy. Skin: No rashes, no cyanosis, trace lower extremity edema. Musculoskeletal: No joint swelling, erythema or tenderness. Neurologic: Cranial nerves 2-12 intact, normal strength and sensation. Psychiatric: Alert, oriented to person, place and time, no obvious anxiety or depression. Medical Decision Making 75 MINUTES SPENT BY ME on the date of service doing chart review, history, exam, documentation & further activities per the note. Data I have personally reviewed the following data over the past 24 hrs: 10.6 \ 8.0 (L) / 288 141 100 86.2 (H) / 109 (H) 5.1 19 (L) 21.81 (H) \ Trop: 101 (HH) BNP: N/A Imaging results reviewed over the past 24 hrs: Recent Results (from the past 24 hour(s)) XR Chest 2 Views Narrative EXAM: XR CHEST 2 VIEWS LOCATION: [facility] DATE/TIME: 07/03/2022 6:19 AM INDICATION: Chest pain. COMPARISON: None. Impression IMPRESSION: Negative chest. [facility] documented in this encounter Consult Notes * Kirk Rae MD - 07/03/2022 11:26 AM CSTAssociated Order(s): NEPHROLOGY IP CONSULT RENAL CONSULTATION NOTE REFERRING MD: Santo REASON FOR CONSULTATION: ESRD management A/P: 1. ESRD -dialysis dependent -TTS [facility] -followed by [facility] -last ran 06/27/22 Outpatient dialysis orders: 4 hours Left AVF TW 69 kg Off last 68.9 kg 3K 2. Anemia -Mircera given 06/22/22 3. Metabolic Bone Disease -calcitriol with dialysis 1.25 mg -CaA 4. HTN -amlodipine/benazepril/carvedilol/hydralazine/minoxidil/spironolactone -presenting BP elevated at dialysis 5. CP Dialysis today Next run 07/04/22 to resume TTS Reviewed with [place] dialysis staff HPI: Patient presents with chest pain. He is known to have end-stage renal disease. Dialysis dependent. Currently dialyzing TTS at [facility]. Last ran there dated 06/27/22. Missed the subsequent Friday and Friday. Now presents with chest pain. 2 missed dialysis runs. Reviewed history with his primary outpatient unit. Typically does not have a compliance issue. Apparently traveled north toward end had difficulty with his return transportation. He has an aVF which has not been problematic Feels poorly today. Denies current chest pain Blood pressure elevated Typically runs high blood pressure No shortness of breath No edema. ROS: A complete 10 point review of systems was performed and is negative except as noted above. PMH: No past medical history on file. PSH: No past surgical history on file. MEDICATIONS: Current Outpatient Medications Medication Sig Dispense Refill ??? amLODIPine (NORVASC) 10 MG tablet Take 1 tablet (10 mg) by mouth daily 30 tablet 1 ??? hydrALAZINE (APRESOLINE) 50 MG tablet Take 1 tablet (50 mg) by mouth 2 times daily 60 tablet 1 ??? lisinopril (ZESTRIL) 20 MG tablet Take 1 tablet (20 mg) by mouth daily 30 tablet 1 ??? minoxidil (LONITEN) 2.5 MG tablet Take 1 tablet (2.5 mg) by mouth daily 30 tablet 1 ALLERGIES: Allergies as of 07/03/2022 - Reviewed 07/03/2022 Allergen Reaction Noted ??? Hydrocodone 03/20/2022 ??? Morphine Anaphylaxis 03/20/2022 ??? Ibuprofen Other (See Comments) 03/20/2022 ??? Nsaids Other (See Comments) 03/20/2022 ??? Coconut oil Hives 06/24/2022 ??? Diphenhydramine Anxiety 03/20/2022 FH: No family history on file. SH: Social History Socioeconomic History ??? Marital status: Single Spouse name: Not on file ??? Number of children: Not on file ??? Years of education: Not on file ??? Highest education level: Not on file Occupational History ??? Not on file Tobacco Use ??? Smoking status: Not on file ??? Smokeless tobacco: Not on file Substance and Sexual Activity ??? Alcohol use: Not on file ??? Drug use: Not on file ??? Sexual activity: Not on file Other Topics Concern ??? Not on file Social History Narrative ??? Not on file Social Determinants of Health Financial Resource Strain: Not on file Food Insecurity: Not on file Transportation Needs: Not on file Physical Activity: Not on file Stress: Not on file Social Connections: Not on file Intimate Partner Violence: Not on file Housing Stability: Not on file Patient currently on housed Living in a motel in [place]. PHYSICAL EXAM: Vitals were reviewed Patient Vitals for the past 8 hrs: BP Temp Temp src Pulse Resp SpO2 Height Weight 07/03/22 1215 (!) 162/98 -- -- 82 19 98 % -- -- 07/03/22 0800 (!) 172/87 -- -- 85 (!) 8 91 % -- -- 07/03/22 0715 (!) 195/114 -- -- -- -- -- -- -- 07/03/22 0700 (!) 206/111 -- -- 112 14 97 % -- -- 07/03/22 0650 (!) 212/117 -- -- 111 (!) 46 98 % -- -- 07/03/22 0631 (!) 196/106 -- -- 109 28 97 % -- -- 07/03/22 0604 (!) 179/98 -- -- 112 15 97 % -- -- 07/03/22 0547 (!) 185/106 99 ??F (37.2 ??C) Oral 109 (!) 32 98 % 1.651 m (5' 5) 70.3 kg (155 lb) No intake/output data recorded. Vitals: 07/03/22 0547 Weight: 70.3 kg (155 lb) GENERAL: awake, alert, follows HEENT: NC/AT, PERRLA, EOMI, non icteric, pharynx moist without lesion RESP: clear anteriorly CV: RRR, normal S1 S2 ABDOMEN: soft MS: no clubbing, cyanosis NEURO: speech normal and cranial nerves 2-12 intact PSYCH: affect normal/bright EXT: warm, no edema LABS: Recent Labs Lab 07/03/22 0551 NA 141 POTASSIUM 5.1 CHLORIDE 100 CO2 19* ANIONGAP 22* GLC 109* BUN 86.2* CR 21.81* GFRESTIMATED 3* CLAIRE 9.8 No lab results found in last 7 days. Recent Labs Lab 07/03/22 0551 HGB 8.0* DIAGNOSTICS: Reviewed Maryellen Rae [facility] [phone] [facility] documented in this encounter ED Notes * Sundeep Mosley RN - 07/03/2022 7:30 AM CST [facility] ED Nurse Handoff Report ED Chief complaint: Chest Pain ED Diagnosis: Final diagnoses: None Code Status: Full Code Allergies: Allergies Allergen Reactions ??? Hydrocodone Other reaction(s): Seizures ??? Morphine Anaphylaxis ??? Ibuprofen Other (See Comments) ??? Nsaids Other (See Comments) ??? Coconut Oil Hives ??? Diphenhydramine Anxiety Patient Story: He endorses chest pressure and shortness of breath. He states dental pain has been intermittent for some time, and returned today. He notes he accidentally missed dialysis this past Friday and Friday (yesterday). He denies fevers, chills, cough, or congestion. He denies hemoptysis. He denies leg swelling. He denies abdominal pain, nausea, vomting, or diarrhea. He makes urine. Hedenies hematochezia or melena. He denies history of DVT/PE or known cancer. He has history of myocardial infarction in 2016 with no cardiac stent placements. He denies recent surgery or travel. He states he was supposed to receive emergent dialysis, however due to increased pain, [facility] Focused Assessment: Chest discomfort Treatments and/or interventions provided: iv, medications imaging labs Patient's response to treatments and/or interventions: tolerated To be done/followed up on inpatient unit: na Does this patient have any cognitive concerns?: none Activity level - Baseline/Home: Independent Activity Level - Current: Independent Patient's Preferred language: Mohawk Oenologist Needed?: No Isolation: None Infection: Not Applicable Patient tested for COVID 19 prior to admission: YES Bariatric?: No Vital Signs: Vitals: 07/03/22 0604 07/03/22 0631 07/03/22 0650 07/03/22 0700 BP: (!) 179/98 (!) 196/106 (!) 212/117 (!) 206/111 Pulse: 112 109 111 112 Resp: 15 28 (!) 46 14 Temp: TempSrc: SpO2: 97% 97% 98% 97% Weight: Height: Cardiac Rhythm:Cardiac Rhythm: Sinus tachycardia Was the PSS-3 completed: Yes What interventions are required if any? Family Comments: OBS brochure/video discussed/provided to patient/family: N/A Name of person given brochure if not patient: Relationship to patient: For the majority of the shift this patient's behavior was Green. Behavioral interventions performed were . ED NURSE PHONE NUMBER: [phone] [facility] * Narcisa Carey RN - 07/03/2022 5:42 AM CST Patient aletha from [place], patient reports he goes to dialysis saturdays, tuesdays, and . This past week he missed dialysis on fri and . He reports this has happened previously when he's missed dialysis. EMS gave nitroglycerine x 2 with minimal relief, fentanyl 100 mcg IV. Has been h ypertensive, trialed bipap for 5-10 min but didn't tolerate. Patient also reports left lower dentalpain. Was told by his DrJuan C To avoid Aspirin. Triage Assessment Row Name 07/03/22 0542 Triage Assessment (Adult) Airway WDL WDL Respiratory WDL Respiratory WDL WDL Cardiac WDL Cardiac WDL X;rhythm Pulse Rate & Regularity tachycardic Cardiac Rhythm ST Cognitive/Neuro/Behavioral WDL Cognitive/Neuro/Behavioral WDL WDL [facility] * Garth Patel DO - 07/03/2022 5:31 AM CST History Chief Complaint: Chest Pain The history is provided by the patient, the EMS personnel and medical records. Salbador Justin is a 36 year old male with a history of end stage renal disease on dialysis (Fri, Fri, Fri) and hypertension who presents via EMS with chest pain. The patient states he had onset of chest pain and dental pain today. He endorses chest pressure and shortness of breath. He states dental pain has been intermittent for some time, and returned today. He notes he accidentally missed dialysis this past Friday and Friday (yesterday). He denies fevers, chills, cough, or congestion. Hedenies hemoptysis. He denies leg swelling. He denies abdominal pain, nausea, vomting, or diarrhea. He makes urine. He denies hematochezia or melena. He denies history of DVT/PE or known cancer. He has history of myocardial infarction in 2016 with no cardiac stent placements. He denies recent surgery or travel. He states he was supposed to receive emergent dialysis, however due to increased pain, presents to the emergency department today. Independent Historian: EMS - They administered nitroglycerin x2 with minimal relief. They then gave 100 mcg IV fentanyl. Patient does not want more fentanyl and prefers Dilaudid. Review of External Notes: I reviewed the patient's CXR. No pneumothorax. ROS: Review of Systems Constitutional: Negative for chills and fever. HENT: Positive for dental problem. Negative for congestion. Respiratory: Positive for shortness of breath. Negative for cough. Cardiovascular: Positive for chest pain. Negative for leg swelling. Gastrointestinal: Negative for abdominal pain, blood in stool, diarrhea, nausea and vomiting. Genitourinary: Negative for difficulty urinating. All other systems reviewed and are negative. Allergies: Hydrocodone Morphine Ibuprofen NSAIDs Diphenhydramine Medications: Amlodipine Benazepril Carvedilol Gabapentin Hydralazin Minoxidil Omeprazole Past Medical History: Anemia End stage renal disease Hypertension Myocardial infarction Social History: The patient arrived to the emergency department via EMS. The patient was unaccompanied to the emergency department. PCP: No Ref-Primary, Physician Physical Exam Patient Vitals for the past 24 hrs: BP Temp Temp src Pulse Resp SpO2 Height Weight 07/03/22 0715 (!) 195/114 -- -- -- -- -- -- -- 07/03/22 0700 (!) 206/111 -- -- 112 14 97 % -- -- 07/03/22 0650 (!) 212/117 -- -- 111 (!) 46 98 % -- -- 07/03/22 0631 (!) 196/106 -- -- 109 28 97 % -- -- 07/03/22 0604 (!) 179/98 -- -- 112 15 97 % -- -- 07/03/22 0547 (!) 185/106 99 ??F (37.2 ??C) Oral 109 (!) 32 98 % 1.651 m (5' 5) 70.3 kg (155 lb) Physical Exam General: Sitting on bed. HENT: No obvious trauma to head Right Ear: External ear normal. Left Ear: External ear normal. Nose: Nose normal. Eyes: Conjunctivae and EOM are normal. Pupils are equal, round, and reactive. Neck: Normal range of motion. Neck supple. No tracheal deviation present. CV: Normal heart sounds. No murmur heard. Pulm/Chest: Effort normal and breath sounds normal. Abd: Soft. No distension. There is no tenderness. There is no rigidity, no rebound and no guarding. M/S: Normal range of motion. Fistula in left upper extremity. Neuro: Awake and alert. Skin: Skin is warm and dry. No rash noted. Not diaphoretic. Psych: Normal mood and affect. Behavior is normal. Emergency Department Course ECG: ECG results from 07/03/22 EKG 12-lead, tracing only Value Systolic Blood Pressure Diastolic Blood Pressure Ventricular Rate 111 Atrial Rate 111 AK Interval 144 QRS Duration 90 QT 344 QTc 467 P [place] 63 R AXIS 59 T [place] 76 Interpretation ECG Sinus tachycardia Possible Left atrial enlargement Borderline ECG When compared with ECG of 27-MAY-2022 15:20, Premature ventricular complexes are no longer Present Confirmed by GENERATED REPORT, COMPUTER ([id number]), restaurant expeditor Efraín Puente ([id number]) on 07/03/2022 5:49:00 AM Imaging: XR Chest 2 Views Final Result IMPRESSION: Negative chest. Report per radiology Laboratory: Labs Ordered and Resulted from Time of ED Arrival to Time of ED Departure BASIC METABOLIC PANEL - Abnormal Result Value Sodium 141 Potassium 5.1 Chloride 100 Carbon Dioxide (CO2) 19 (*) Anion Gap 22 (*) Urea Nitrogen 86.2 (*) Creatinine 21.81 (*) Calcium 9.8 Glucose 109 (*) GFR Estimate 3 (*) TROPONIN T, HIGH SENSITIVITY - Abnormal Troponin T, High Sensitivity 100 (*) CBC WITH PLATELETS AND DIFFERENTIAL - Abnormal WBC Count 10.6 RBC Count 2.83 (*) Hemoglobin 8.0 (*) Hematocrit 24.3 (*) MCV 86 MCH 28.3 MCHC 32.9 RDW 13.4 Platelet Count 288 % Neutrophils 66 % Lymphocytes 17 % Monocytes 8 % Eosinophils 8 % Basophils 1 % Immature Granulocytes 0 NRBCs per 100 WBC 0 Absolute Neutrophils 7.1 Absolute Lymphocytes 1.8 Absolute Monocytes 0.8 Absolute Eosinophils 0.8 (*) Absolute Basophils 0.1 Absolute Immature Granulocytes 0.0 Absolute NRBCs 0.0 TROPONIN T, HIGH SENSITIVITY Emergency Department Course & Assessments: Interventions: Medications labetalol (NORMODYNE/TRANDATE) injection 10 mg (has no administration in time range) HYDROmorphone (DILAUDID) injection 1 mg (1 mg Intravenous $Given 07/03/22 0653) Assessments: 0641 I obtained history and performed an exam of the patient as documented above. Independent Interpretation (X-rays, CTs, rhythm strip): I reviewed the patient's chest x-ray. Consultations/Discussion of Management or Tests: [address] Blanchard of the hospitalist service who accepts the patient for admission. [address] Salgado of the nephrolohgy service regarding emergent dialysis. He states theyhave a bed available for the patient today. Social Determinants of Health affecting care: Healthcare Access/Compliance Disposition: The patient was admitted to the hospital under the care of Dr. Blanchard. Impression & Plan Medical Decision Making: Salbador Justin is a very pleasant 36 year old year old patient who presents to the emergency department with concern of chest pain. He reports it began today. He called EMS. They provided nitroglycerin which provided minimal relief followed by fentanyl which helped. The patient reports that he isscared of fentanyl and is requesting Dilaudid for his pain and not fentanyl and cannot tolerate morphine. Screening EKG shows no significant ST changes, but troponin is slightly elevated. I suspect this is related to his underlying kidney disease and need for dialysis, but he has had a non-STEMI inthe past and certainly could be a non-STEMI as well. The patient does not appear fluid overloaded and is not hypoxic, but is hypertensive. I believe he would benefit from emergent dialysis. I consulted the methods time analyst reports they will be able to dialyze the patient today. Fortunately, the patient's potassium is normal. The patient was provided Dilaudid for pain control. The patient was told he cannot take aspirin so this was not provided. The patient is hypertensive and this did not improve with pain control so was provided 10 mg of labetalol as his elevated troponin may be a manifestation of hypertensive urgency. A delta troponin is obtained to determine if heparinization will be needed at this time. I spoke to the hospitalist, Dr. Blanchard, who is agreed to admit the patient for continued evaluation and treatment. >>>Critical Care time: Total critical care time exclusive of procedures was 35 minutes forthis patient.<<< Diagnosis: ICD-10-CM 1. Chest pain, unspecified type R07.9 2. Elevated troponin R77.8 3. Hypertensive urgency I16.0 Scribe Disclosure: IMaegan, am serving as a scribe at 6:15 AM on 07/03/2022 to document services personally performed by Garth Patel DO based on my observations and the provider's statements to me. Garth Patel DO 07/03/22 0745 [facility] documented in this encounter Miscellaneous Notes * Plan of Care - Paul Cooper RN - 07/04/2022 6:28 PM CST Goal Outcome Evaluation: Discharge Note Patient discharged to home via taxi accompanied by no family/friend . IV: Discontinued Prescriptions filled and given to patient/family. Belongings reviewed and sent with patient. Home medications returned to patient: NA Equipment sent with: N/A. patient verbalizes understanding of discharge instructions. AVS given to patient. [facility] * Utilization Review - Estrella Schroeder MD - 07/04/2022 12:01 PM [facility] Admission Status; Secondary Review Determination Under the authority of the Utilization Management Committee, the utilization review process indicated a secondary review on the above patient. The review outcome is based on review of the medical records, discussions with staff, and applying clinical experience noted on the date of the review. (x) Observation Status Appropriate - This patient does not meet hospital inpatient criteria and is placed in observation status. If this patient's primary payer is Medicare and was admitted as an inpatient, Condition Code 44 should be used and patient status changed to observation. RATIONALE FOR DETERMINATION 36-year-old male with a history of hypertension, end-stage renal disease on hemodialysis (missed two sessions), and chest pressure presented to the hospital. Labs showed anemia, hypertensive urgency/emergency with demand ischemia, anion gap metabolic acidosis, and a left first maxillary molar odonto genic infection. The patient also had an incidental lesion in the liver and was unhoused. The patient was treated with hemodialysis, antibiotics for the infection, and pain management. Referral to a dentist and outpatient follow-up were recommended, and social work/case management was consulted. Expected discharge: Today recommended to prior living arrangement. The severity of illness, intensity of service provided, expected LOS and risk for adverse outcome make the care appropriate for further observation; however, doesn't meet criteria for hospital inpatient admission. Dr Marquez notified of this determination. This document was produced using voice recognition software. The information on this document is developed by the utilization review team in order for the business office to ensure compliance. This only denotes the appropriateness of proper admission status and does not reflect the quality of care rendered. The definitions of Inpatient Status and Observation Status used in making the determination above are those provided in the CMS Coverage Manual, Chapter 1 and Chapter 6, section 70.4. Sincerely, ESTRELLA SCHROEDER MD System Donor Relations ManagerGalley Worker [facility]. [facility] * Plan of Care - Dede Magana, IOANA - 07/04/2022 11:32 AM [facility] Goal Outcome Evaluation: Summary: chest pain, missed hemodialysis x2 DATE & TIME: 07/04/22 6391-1901 Cognitive Concerns/ Orientation : A&Ox4 BEHAVIOR & AGGRESSION TOOL COLOR: green ABNL VS/O2: VSS on RA. Did have an episode of BP 84/38 in dialysis recovered to 123/61. Otherwise HTN at baseline Pt has hydralazine and other scheduled blood pressure meds MOBILITY: Ind PAIN MANAGMENT: C/O jaw pain 12/05. Oral Dilaudid given X1 with relief DIET: Renal BOWEL/BLADDER: continent, does make urine ABNL LAB/BG: Cr 7.51, Urea nitrogen 20.7, ferritin 1553, troponin 101, Hgb 7.8 DRAIN/DEVICES: PIVx1 SL. Fistula left arm TELEMETRY RHYTHM: ST SKIN: WDL TESTS/PROCEDURES: dialysis today D/C DAY/GOALS/PLACE: Pt has been discharged and ride will be here this evening OTHER IMPORTANT INFO: Dialysis today. Oral antibiotics started for tooth infection Plan of Care Reviewed With: patient Overall Patient Progress: improvingOverall Patient Progress: improving [facility] * Plan of Care - Faustino Morrison RN - 07/04/2022 7:00 AM CST Goal Outcome Evaluation: Summary: chest pain, missed hemodialysis x2 DATE & TIME: 07/03/22-07/04/22 9368-5641 Cognitive Concerns/ Orientation : A&Ox4 BEHAVIOR & AGGRESSION TOOL COLOR: green ABNL VS/O2: VSS on 2L NC ex HTN. Pt has hydralazine and other scheduled blood pressure meds MOBILITY: Ind PAIN MANAGMENT: Denies pain DIET: Renal BOWEL/BLADDER: continent, does make urine ABNL LAB/BG: Cr 21.81, ferritin 1553, troponin 101 DRAIN/DEVICES: PIVx1 SL (new tubing and dressing applied). Fistula left arm TELEMETRY RHYTHM: ST SKIN: WDL ex pt c/o systemic itchiness. TESTS/PROCEDURES: dialysis today D/C DAY/GOALS/PLACE: when safe disposition found OTHER IMPORTANT INFO: Chest pain resolved with dialysis. Pt has dry cough. Pt on 2L Oxygen . VSS , no c/o of nausea, no emesis- [facility] * Plan of Care - Juhi Pro RN - 07/03/2022 10:21 PM CST Summary: chest pain, missed hemodialysis x2 DATE & TIME: 07/03 9056-3372 Cognitive Concerns/ Orientation : A&Ox4 BEHAVIOR & AGGRESSION TOOL COLOR: green ABNL VS/O2: VSS on 2L NC ex HTN. Pt given scheduled hydralazine this shift (on other scheduled BP medications earlier today) MOBILITY: Ind PAIN MANAGMENT: c/o tooth pain (see CT results) Given IV dilaudid x1- effective. DIET: Renal BOWEL/BLADDER: continent, does make urine ABNL LAB/BG: Cr 21.81, ferritin 1553, troponin 101 DRAIN/DEVICES: PIVx1 SL (new tubing and dressing applied). Fistula left arm TELEMETRY RHYTHM: ST SKIN: WDL ex pt c/o systemic itchiness. call center director pagearmand- ordered atarax, 25mg given. TESTS/PROCEDURES: dialysis done this shift, also scheduled for another run tomorrow D/C DAY/GOALS/PLACE: when safe disposition found OTHER IMPORTANT INFO: Chest pain resolved with dialysis. Pt has dry cough. Pt reported a feeling ofnausea/perspiration/tachypnea/overall felt like he does before he has a seizure. VSS were stable, no fever, no emesis- just systemic itchiness. Gave PRN zofran, a fan, and pt put on 2L of O2 NC. No seziure activity noted. Pt states he doesn't take anything for seizures at home. Will continue to monitor these symptoms. [facility] * Plan of Care - Patricia John RN - 07/03/2022 2:04 PM CST Goal Outcome Evaluation: Cognitive Concerns/ Orientation : A&Ox4 BEHAVIOR & AGGRESSION TOOL COLOR: green CIWA SCORE: NA ABNL VS/O2: BP elevated-gave daily meds when arriving to unit MOBILITY: Ind PAIN MANAGMENT: chest pain-dialysis given DIET: Renal BOWEL/BLADDER: continent, does make urine ABNL LAB/BG: Cr 21 DRAIN/DEVICES: PIVx1. Fistula left warm TELEMETRY RHYTHM: SKIN: WDL TESTS/PROCEDURES: dialysis today D/C DAY/GOALS/PLACE: when safe disposition found OTHER IMPORTANT INFO: reports significant SOB and chest pain from not having dialysis. Will be leaving for dialysis at approx 1415 [facility] * Pharmacy-Admission Medication History - Heaven Miguel RPH - 07/03/2022 9:12 AM CST Pharmacy Medication History Admission medication history interview status for the 07/03/2022 admission is complete. See [facility] admission navigator for prior to admission medications Location of Interview: Patient room Medication history sources: Patient and Surescripts Significant changes made to the medication list: Removed: Coreg, Dilaudid, Protonix In the past week, patient estimated taking medication this percent of the time: greater than 90% Medication Affordability: Not including over the counter (OTC) medications, was there a time in the past 12 months when you did not take your medications as prescribed because of cost?: No Additional medication history information: none Medication reconciliation completed by provider prior to medication history? No Time spent in this activity: 15 mins Prior to Admission medications Medication Sig Last Dose Taking? Auth Provider Center Director Lead Teacher End Date amLODIPine (NORVASC) 10 MG tablet Take 1 tablet (10 mg) by mouth daily 07/02/2022 at AM Yes Senthil Burnette, DO Yes hydrALAZINE (APRESOLINE) 50 MG tablet Take 1 tablet (50 mg) by mouth 2 times daily 07/02/2022 at PM Yes Senthil Burnette DO Yes lisinopril (ZESTRIL) 20 MG tablet Take 1 tablet (20 mg) by mouth daily 07/02/2022 at AM Yes Senthil Burnette, DO Yes minoxidil (LONITEN) 2.5 MG tablet Take 1 tablet (2.5 mg) by mouth daily 07/02/2022 at AM Yes Senthil Burnette, DO Yes The information provided in this note is only as accurate as the sources available at the time of update(s) Heaven Miguel PharmD [facility] documented in this encounter Plan of Treatment Scheduled Orders Name Type Priority Associated Diagnoses Orde r Schedule EKG 12-lead, tracing only EKG Routine Enter condition for order release in comments for 1 Occurrences starting 07/04/2022 Scheduled Referrals Name Type Priority Associated Diagnoses Orde r Schedule Dental Referral Referral Urgent: 3-5 Days Tooth infection Expected: 07/04/2022 (Approximate), Expires: 07/05/2023 documented as of this encounter Procedures Procedure Name Priority Date/Time Associated Diagnosis Comments PHOSPHORUS Routine 07/04/2022 11:45 AM [facility] MAGNESIUM Routine 07/04/2022 11:45 AM [facility] BASIC METABOLIC PANEL Routine 07/04/2022 11:45 AM [facility] CBC WITH PLATELETS Routine 07/04/2022 10 :[address] FACIAL BONES WITH CONTRAST STAT 07/03/2022 10:30 AM [facility] EXTRA PURPLE TOP TUBE STAT 07/03/2022 7:50 AM [facility] EXTRA GREEN TOP (LITHIUM HEPARIN) TUBE STAT 07/03/2022 7:50 AM [facility] TRANSFERRIN Add-On 07/03/2022 7:50 AM [facility] IRON AND IRON BINDING CAPACITY Add-On 07/03/2022 7:50 AM [facility] FERRITIN Add-On 07/03/2022 7:50 AM [facility] TROPONIN T, HIGH SENSITIVITY STAT 07/03/2022 7:49 AM [facility] XR CHEST 2 VIEWS STAT 07/03/2022 6:19 AM [facility] EXTRA TUBE STAT 07/03/2022 5:52 AM [facility] EXTRA BLUE TOP TUBE STAT 07/03/2022 5 :52 AM [facility] EXTRA TUBE STAT 07/03/2022 5:51 AM [facility] EXTRA RED TOP TUBE STAT 07/03/2022 5: 51 AM [facility] CBC WITH PLATELETS AND DIFFERENTIAL STAT 07/03/2022 5:51 AM [facility] TROPONIN T, HIGH SENSITIVITY STAT 07/03/2022 5:51 AM [facility] CBC WITH PLATELETS & DIFFERENTIAL STAT 07/03/2022 5:51 AM [facility] BASIC METABOLIC PANEL STAT 07/03/2022 5:51 AM [facility] EKG 12-LEAD, TRACING ONLY STAT 07/03/2022 5:38 AM [facility] documented in this encounter Results * Phosphorus (07/04/2022 11:45 AM [facility]) Phosphorus 2.7 2.5 - 4.5 mg/dL 07/04/2022 12:33 PM [facility] LABORATORY Blood STRUCTURE OF LEFT HAND / Unknown Venipuncture / Unknown 07/04/2022 11:45 AM [facility] 07/04/2022 12:08 PM [facility] Julia Blanchard DO LAB - BLOOD ORDERABLES LAB[facility]ATORY [facility] [address] 1[address], [address] [place] [address], [facility] [phone] * (ABNORMAL) Magnesium (07/04/2022 11:45 AM [facility]) Magnesium 1.6(L) 1.7 - 2.3 mg/dL 07/04/2022 12:33 PM [facility] LABORATORY Blood STRUCTURE OF LEFT HAND / Unknown Venipuncture / Unknown 07/04/2022 11:45 AM [facility] 07/04/2022 12:08 PM [facility] Julia Blanchard DO LAB - BLOOD ORDERABLES LABORATORY [facility] [address], [address] [place] [address], [facility] [phone] * (ABNORMAL) Basic metabolic panel (07/04/2022 11:45 AM [facility]) Sodium 138 136 - 145 mmol/L 07/04/2022 12:33 PM [facility]ORATORY Potassium 4.2 3.4 - 5.3 mmol/L 07/04/2022 12:33 PM [facility]OR[facility] Chloride 98 98 - 107 mmol/L 07/04/2022 12:33 PM [facility] Carbon Dioxide (CO2) 25 22 - 29 mmol/L 07/04/2022 12:33 PM [facility] Anion Gap 15 7 - 15 mmol/L 07/04/2022 12:33 PM [facility] Urea Nitrogen 20.7(H) 6.0 - 20.0 mg/dL 07/04/2022 12:33 PM [facility] Creatinine 7.51(H) 0.67 - 1.17 mg/dL 07/04/2022 12:33 PM [facility] Calcium 9.0 8.6 - 10.0 mg/dL 07/04/2022 12:33 PM [facility] Glucose 80 70 - 99 mg/dL 07/04/2022 12:33 PM [facility] GFR Estimate 9(L) >60 mL/min/1.7 3m2 07/04/2022 12:33 PM [facility] Comment:eGFR calculated usin 2020 CKD-EPI equation. Blood STRUCTURE OF LEFT HAND / Unknown Venipuncture / Unknown 07/04/2022 11:45 AM [facility] 07/04/2022 12:08 PM [facility] Julia Blanchard DO LAB - BLOOD ORDERABLES LABORATORY [facility] [address], [address] [place] [address], [facility] [phone] * (ABNORMAL) CBC with platelets (07/04/2022 10:11 AM [facility]) [facility] WBC Count 8.7 4.0 - 11.0 10e3/uL 07/04/2022 10:15 AM [facility] RBC Count 2.76(L) 4.40 - 5.90 10e6/uL 07/04/2022 10:15 AM [facility] Hemoglobin 7.8(L) 13.3 - 17.7 g/dL 07/04/2022 10:15 AM [facility] Hematocrit 23.6(L) 40.0 - 53.0 % 07/04/2022 10:15 AM [facility] MCV 86 78 - 100 fL 07/04/2022 10:15 AM [facility] LABORATORY MCH 28.3 26.5 - 33.0 pg 07/04/2022 10:15 AM [facility] LABORATORY MCHC 33.1 31.5 - 36.5 g/dL 07/04/2022 10:15 AM [facility] LABORATORY RDW 13.3 10.0 - 15.0 % 07/04/2022 10:15 AM [facility] LABORATORY Platelet Count 244 150 - 450 10e3/uL 07/04/2022 10:15 AM [facility] LABORATORY Blood BLOOD SPECIMEN / Unknown Venipuncture / Unknown 07/04/2022 10:11 AM [facility] 07/04/2022 10:13 AM [facility] Julia Blanchard DO LAB - BLOOD ORDERABLES LABORATORY [facility] [address] 1[address], [address] [place] [address], [facility] [phone] * CT Facial Bones with Contrast (07/03/2022 10:30 AM [facility]) Anatomical Region Laterality Modality Head, SUBRAD CT NEURO, UMP CT NEURO, RAD CT Computed Tomography Impressions 07/03/2022 10:54 AM [facility] IMPRESSION: 1. Left premaxillary soft tissue swelling favored to be due to an odontogenic infection most likely arising from the left first maxillary molar. This tooth shows a carious lesion and periapical lucency concerning for apical periodontitis. There is dehiscence of the left maxillary outer cortex around this tooth root towards the premaxillary soft tissues in the area of inflammation. No definite periosteal abscess is appreciated. 2. Mild mucosal thickening in the inferior left maxillary sinus. No air-fluid layers in the sinuses. Remaining paranasal sinuses are clear. QUIQUE WATTERS MD Narrative 07/03/2022 10:54 AM [facility] CT SCAN OF THE FACE WITH CONTRAST 07/03/2022 10:30 AM HISTORY: Evaluate for abscess, left maxilla dental pain, recent left maxillary sinusitis. TECHNIQUE: ??Axial scans of the face following intravenous contrast with sagittal and coronal reformations. Radiation dose for this scan was reduced using automated exposure control, adjustment of the mA and/or kV according to patient size, or iterative reconstruction technique. 75 mL Isovue-370 COMPARISON: Facial CT 04/14/2022. FINDINGS: There appears to be left premaxillary soft tissue swelling. No definite periosteal abscess identified. Carious lesion of the left maxillary first molar with associated periapical lucency. Periapical lucency of this tooth shows dehiscence of the outer cortex of the maxilla (series 2 image 55). No other suspicious inflammation or fluid collection within the visualized face. No evidence of facial bone fracture. Mild mucosal thickening in the inferior left maxillary sinus. Remaining paranasal sinuses are clear. No air-fluid layers in the sinuses. Visualized intracranial structures are unremarkable. Procedure Note Quique Watters MD - 07/03/2022 CT SCAN OF THE FACE WITH CONTRAST 07/03/2022 10:30 AM HISTORY: Evaluate for abscess, left maxilla dental pain, recent left maxillary sinusitis. TECHNIQUE: Axial scans of the face following intravenous contrast with sagittal and coronal reformations. Radiation dose for this scan was reduced using automated exposure control, adjustment of the mA and/or kV according to patient size, or iterative reconstruction technique. 75 mL Isovue-370 COMPARISON: Facial CT 04/14/2022. FINDINGS: There appears to be left premaxillary soft tissue swelling. No definite periosteal abscess identified. Carious lesion of the left maxillary first molar with associated periapical lucency. Periapical lucency of this tooth shows dehiscence of the outer cortex of the maxilla (series 2 image 55). No other suspicious inflammation or fluid collection within the visualized face. No evidence of facial bone fracture. Mild mucosal thickening in the inferior left maxillary sinus. Remaining paranasal sinuses are clear. No air-fluid layers in the sinuses. Visualized intracranial structures are unremarkable. IMPRESSION: 1. Left premaxillary soft tissue swelling favored to be due to an odontogenic infection most likely arising from the left first maxillary molar. This tooth shows a carious lesion and periapical lucency concerning for apical periodontitis. There is dehiscence of the left maxillary outer cortex around this tooth root towards the premaxillary soft tissues in the area of inflammation. No definite periosteal abscess is appreciated. 2. Mild mucosal thickening in the inferior left maxillary sinus. No air-fluid layers in the sinuses. Remaining paranasal sinuses are clear. QUIQUE WATTERS MD Julia Blanchard DO G CT ORDER PENG * (ABNORMAL) Ferritin (07/03/2022 7:50 AM [facility]) Pathologist [facility] Ferritin 1,553(H) 31 - 409 ng/mL 07/03/2022 1:43 PM [facility] LABORATORY Blood VENOUS LINE / Unknown Venipuncture / Unknown 07/03/2022 7:50 AM [facility] 07/03/2022 7:54 AM [facility] Julia Blanchard DO LAB - BLOOD ORDERABLES U LABORATORY [facility] Core Lab [address], [address] [address], [facility] [phone] * (ABNORMAL) Transferrin (07/03/2022 7:50 AM [facility]) [facility] Transferrin 150.0(L) 200.0 - 360.0 mg/dL 07/03/2022 6:52 PM [facility] LAB[facility]ORY Blood VENOUS LINE / Unknown Venipuncture / Unknown 07/03/2022 7:50 AM [facility] 07/03/2022 7:54 AM [facility] Julia Blanchard DO LAB - BLOOD ORDERABLES LABORATORY [facility] Core Lab [address], [address] [address], [facility] [phone] * (ABNORMAL) Iron & Iron Binding Capacity (07/03/2022 7:50 AM [facility]) [facility] Iron 92 61 - 157 ug/dL 07/03/2022 9:43 AM [facility] LABORATORY Iron Binding Capacity 198(L) 240 - 430 ug/dL 07/03/2022 9:43 AM [facility] LABORATORY Iron Sat Index 46 15 - 46 % 07/03/2022 9:43 AM [facility] LABORATORY Blood VENOUS LINE / Unknown Venipuncture / Unknown 07/03/2022 7:50 AM [facility] 07/03/2022 7:54 AM [facility] Julia Blanchard LAB - BLOOD ORDERABLES [facility] Lab [address], [address] [place] [address], [place] [phone] * Extra Purple Top Tube (07/03/2022 7:50 AM [facility]) Hold Specimen [facility] 07/03/2022 9:02 AM [facility] LABORATORY Blood VENOUS LINE / Unknown Venipuncture / Unknown 07/03/2022 7:50 AM [facility] 07/03/2022 7:54 AM [facility] Garth Easton Jorge LAB - BLOOD ORD ERABLES [facility] Lab [address], [address] [place] [address], [place] [phone] * Extra Green Top ([place] Heparin) Tube (07/03/2022 7:50 AM [facility]) Hold Specimen [facility] 07/03/2022 9:02 AM [facility] LABORATORY Blood VENOUS LINE / Unknown Venipuncture / Unknown 07/03/2022 7:50 AM [facility] 07/03/2022 7:54 AM [facility] Garth Patel LAB - BLOOD ORD ERABLES [facility] Lab [address], [address] [place] [address], [place] [phone] * (ABNORMAL) Troponin T, High Sensitivity (07/03/2022 7:49 AM [facility]) Troponin T, High Sensitivity 101(HH) <=22 ng/L 07/03/2022 8:40 AM [facility] LABORATORY Comment: Either a High Sensitivity Troponin T baseline (0 hours) value = 100 ng/L, or an increase in High Sensitivity Troponin T = 7 ng/L at 2 hours compared to 0 hours (2-0 hours), suggests myocardial injury, and urgent clinical attention is required. ?? If the 2-0 hours increase is <7 ng/L, a High Sensitivity Troponin T result above gender-specific reference ranges warrants further evaluation. Recommendations for further evaluation include correlation with clinical decision-making tool (e.g., HEART), a 3rd High Sensitivity Troponin T test 2 hours after the 2nd (a 20% change from baseline would represent concern), admission for observation, close PCC/cardiology follow-up, or urgent outpatient provocative testing. Blood BLOOD SPECIMEN / Unknown Venipuncture / Unknown 07/03/2022 7:49 AM [facility] 07/03/2022 7:54 AM [facility] Garth Patel DO LAB - BLOOD ORD ERABLES LABORATORY [facility] Lab [address] floor, [address] [place] [address], [facility] [phone] * XR Chest 2 Views (07/03/2022 6:19 AM [facility]) Anatomical Region Laterality Modality Chest Digital Radiogra phy 07/03/2022 6:19 AM [facility] Impressions 07/03/2022 6:22 AM [facility] IMPRESSION: Negative chest. Narrative 07/03/2022 6:22 AM [facility] EXAM: XR CHEST 2 VIEWS LOCATION: [facility] DATE/TIME: 07/03/2022 6:19 AM INDICATION: Chest pain. COMPARISON: None. Procedure Note Raman Bernard MD - 07/03/2022 EXAM: XR CHEST 2 VIEWS LOCATION: [facility] DATE/TIME: 07/03/2022 6:19 AM INDICATION: Chest pain. COMPARISON: None. IMPRESSION: Negative chest. Garth Patel DO IM DIAGNOSTIC IMAGING ORDERABLES * Extra Blue Top Tube (07/03/2022 5:52 AM [facility]) Hold Specimen [facility] 07/03/2022 7:03 AM [facility] Blood BLOOD SPECIMEN / Unknown Venipuncture / Unknown 07/03/2022 5:52 AM [facility] 07/03/2022 5:55 AM [facility] Garth Patel LAB - BLOOD ORD ERABLES LABORATORY [facility] Lab [address], [address] [place] [address], [facility] [phone] * (ABNORMAL) CBC with platelets and differential (07/03/2022 5:51 AM [facility]) Pathologist [facility] WBC Count 10.6 4.0 - 11.0 10e3/uL 07/03/2022 6:07 AM [facility] RBC Count 2.83(L) 4.40 - 5.90 10e6/uL 07/03/2022 6:07 AM [facility] Hemoglobin 8.0(L) 13.3 - 17.7 g/dL 07/03/2022 6:07 AM [facility] Hematocrit 24.3(L) 40.0 - 53.0 % 07/03/2022 6:07 AM [facility] MCV 86 78 - 100 fL 07/03/2022 6:07 AM [facility] MCH 28.3 26.5 - 33.0 pg 07/03/2022 6:07 AM [facility] MCHC 32.9 31.5 - 36.5 g/dL 07/03/2022 6:07 AM [facility] RDW 13.4 10.0 - 15.0 % 07/03/2022 6:07 AM [facility] Platelet Count 288 150 - 450 10e3/uL 07/03/2022 6:07 AM [facility] % Neutrophils 66 % 07/03/2022 6:07 AM [facility] % Lymphocytes 17 % 07/03/2022 6:07 AM [facility] % Monocytes 8 % 07/03/2022 6:07 AM [facility] % Eosinophils 8 % 07/03/2022 6:07 AM [facility] % Basophils 1 % 07/03/2022 6:07 AM [facility] % Immature Granulocytes 0 % 07/03/2022 6:07 AM [facility] NRBCs per 100 WBC 0 <1 /100 023 6:07 AM [facility] Absolute Neutrophils 7.1 1.6 - 8.3 10e3/uL 07/03/2022 6:07 AM [facility] Absolute Lymphocytes 1.8 0.8 - 5.3 10e3/uL 07/03/2022 6:07 AM [facility] Absolute Monocytes 0.8 0.0 - 1.3 10e3/uL 07/03/2022 6:07 AM [facility] Absolute Eosinophils 0.8(H) 0.0 - 0.7 10e3/uL 07/03/2022 6:07 AM [facility] Absolute Basophils 0.1 0.0 - 0.2 10e3/uL 07/03/2022 6:07 AM [facility] Absolute Immature Granulocytes 0.0 <=0.4 10e3/uL 07/03/2022 6:07 AM [facility] Absolute NRBCs 0.0 10e3/uL 07/03/2022 6:07 AM [facility] Blood BLOOD SPECIMEN / Unknown Venipuncture / Unknown 07/03/2022 5:51 AM [facility] 07/03/2022 5:55 AM [facility] Garth Patel DO LAB - BLOOD ORD ERABLES LABORATORY [facility] Lab [address], [address] [place] [address], [facility] [phone] * Extra Red Top Tube (07/03/2022 5:51 AM [facility]) Hold Specimen [facility] 07/03/2022 7:03 AM [facility] LABORATORY Blood BLOOD SPECIMEN / Unknown Venipuncture / Unknown 07/03/2022 5:51 AM [facility] 07/03/2022 5:55 AM [facility] Garth Patel LAB - BLOOD ORD [facility] LABORATORY [facility] Lab [address], [address] [place] [address], [facility] [phone] * (ABNORMAL) Troponin T, High Sensitivity (07/03/2022 5:51 AM [facility]) [facility] Troponin T, High Sensitivity 100(HH) <=22 ng/L 07/03/2022 6:31 AM [facility] LABORATORY Comment: Either a High Sensitivity Troponin T baseline (0 hours) value = 100 ng/L, or an increase in High Sensitivity Troponin T = 7 ng/L at 2 hours compared to 0 hours (2-0 hours), suggests myocardial injury, and urgent clinical attention is required. ?? If the 2-0 hours increase is <7 ng/L, a High Sensitivity Troponin T result above gender-specific reference ranges warrants further evaluation. Recommendations for further evaluation include correlation with clinical decision-making tool (e.g., HEART), a 3rd High Sensitivity Troponin T test 2 hours after the 2nd (a 20% change from baseline would represent concern), admission for observation, close PCC/cardiology follow-up, or urgent outpatient provocative testing. Blood BLOOD SPECIMEN / Unknown Venipuncture / Unknown 07/03/2022 5:51 AM [facility] 07/03/2022 5:55 AM [facility] Garth Patel LAB - BLOOD ORD [facility] [address], [address] [place] [address], [facility] [phone] * (ABNORMAL) Basic metabolic panel (07/03/2022 5:51 AM [facility]) Pathologist [facility] Sodium 141 136 - 145 mmol/L 07/03/2022 6:28 AM [facility] Potassium 5.1 3.4 - 5.3 mmol/L 07/03/2022 6:28 AM [facility] Chloride 100 98 - 107 mmol/L 07/03/2022 6:28 AM [facility] Carbon Dioxide (CO2) 19(L) 22 - 29 mmol/L 07/03/2022 6:28 AM [facility] Anion Gap 22(H) 7 - 15 mmol/L 07/03/2022 6:28 AM [facility] Urea Nitrogen 86.2(H) 6.0 - 20.0 mg/dL 07/03/2022 6:28 AM [facility] Creatinine 21.81(H) 0.67 - 1.17 mg/dL 07/03/2022 6:28 AM [facility] Calcium 9.8 8.6 - 10.0 mg/dL 07/03/2022 6:28 AM [facility] Glucose 109(H) 70 - 99 mg/dL 07/03/2022 6:28 AM [facility] GFR Estimate 3(L) >60 mL/min/1.7 3m2 07/03/2022 6:28 AM [facility] Comment:eGFR calculated us2020 CKD-EPI equation. Blood BLOOD SPECIMEN / Unknown Venipuncture / Unknown 07/03/2022 5:51 AM [facility] 07/03/2022 5:55 AM [facility] Garth Patel DO LAB - BLOOD ORD ERABLES LABORATORY [facility] Lab [address], [address] [place] [address], [facility] [phone] * EKG 12-lead, tracing only (07/03/2022 5:38 AM [facility]) Systolic Blood Pressure mmHg RADIOLOGY RESULTS Diastolic Blood Pressure mmHg RADIOLOGY RESULTS Ventricular Rate 111 BPM RAD IOLOGY RESULTS Atrial Rate 111 BPM RADIOLOG Y RESULTS AK Interval 144 ms RADIOLOG Y RESULTS QRS Duration 90 ms RADIOLO GY RESULTS QT 344 ms RADIOLOGY RESULTS QTc 467 ms RADIOLOGY RESULTS P [place] 63 degrees RADIOLOGY RESULTS R AXIS 59 degrees RADIOLOGY RESULTS T [place] 76 degrees RADIOLOGY RESULTS Interpretation ECG Sinus tachycardia Possible Left atrial enlargement Borderline ECG When compared with ECG of 27-MAY-2022 15:20, Premature ventricular complexes are no longer Present Confirmed by GENERATED REPORT, COMPUTER ([id number]), restaurant expeditor Efraín Puente ([id number]) on 07/03/2022 5:49:00 AM RADIOLOGY RESULTS 07/03/2022 5:38 AM [facility] 07/03/2022 5:49 AM [facility] Concetta Sanders MD ECG ORDERABLES RADIOLOGY RESULTS documented in this encounter Visit Diagnoses Diagnosis Hypertensive urgency- Primary Unspecified essential hypertension Chest pain, unspecified type Elevated troponin Other abnormal blood chemistry Hypertensive urgency Unspecified essential hypertension Tooth infection Acute apical periodontitis of pulpal origin Elevated troponin Other abnormal blood chemistry Chest pain, unspecified type documented in this encounter Admitting Diagnoses Diagnosis Chest pain, unspecified type Hypertensive urgency Unspecified essential hypertension documented in this encounter Administered Medications Inactive Administered Medications - up to 3 most recent administrations Medication Order MAR Action Action Date Dose Rate Site 0.9% sodium chloride BOLUS Intravenous, 250 mL, ONCE IN DIALYSIS/CRRT, On Fri07/03/22 at 1200, For 1 dose, For patient prime during dialysis, Dialysis $New Bag 07/03/2022 4:17 PM [facility] 250 mLs 0.9% sodium chloride BOLUS Hemodialysis Machine, 300 mL, ONCE, On Fri07/03/22 at 1200, For 1 dose, For Dialyzer Prime. (In Dialyzer), Dialysis $New Bag 07/03/2022 4:17 PM [facility] 300 mLs 0.9% sodium chloride BOLUS Intravenous, 100-150 mL, EVERY 15 MIN PRN, Until hypotensive symptoms resolve, Starting on Diana 07/04/22 at 0706, For 10 doses, Up to 1000 mL maximum total dose. Give if needed to manage Systolic Blood Pressure as indicated in Hemodialysis Single Treatment set up. Notify provider if patient blood pressure is not responsive with the bolus., Dialysis acetaminophen (TYLENOL) Suppository 650 mg 650 mg, Rectal, EVERY 4 HOURS PRN, mild pain, Starting on Fri07/03/22 at 0845, Maximum acetaminophen dose from all sources = 75 mg/kg/day not to exceed 4 grams/day. acetaminophen (TYLENOL) tablet 650 mg 650 mg, Oral, EVERY 4 HOURS PRN, mild pain, Starting on Fri07/03/22 at 0845, Maximum acetaminophen dose from all sources = 75 mg/kg/day not to exceed 4 grams/day. amLODIPine (NORVASC) tablet 10 mg 10 mg, Oral, DAILY, First dose on Fri07/03/22 at 1235, Hold for SBP<110 $Given 07/04/2022 11:06 AM [facility] 10 mg $Given 07/03/2022 1:44 PM [facility] 10 mg amoxicillin-clavulanate (AUGMENTIN) 500-125 MG per tablet 1 tablet Routine, 1 tablet, Oral, EVERY 24 HOURS SCHEDULED, First dose on Fri07/04/22 at 1200, Give after dialysis on dialysis days., Indications: Tooth infection $Given 07/04/2022 12:32 PM [facility] 1 tablet epoetin jasmin-epbx (RETACRIT) injection 4,000 Units 4,000 Units, Intravenous, ONCE IN DIALYSIS/CRRT, On Fri07/03/22 at 1200, For 1 dose, Give during dialysis., Dialysis $Given 07/03/2022 4:18 PM [facility] 4,000 Units hydrALAZINE (APRESOLINE) injection 10 mg 10 mg, Intravenous, EVERY 4 HOURS PRN, high blood pressure, give for SBP > 180, Starting on Fri07/03/22 at 0846 hydrALAZINE (APRESOLINE) tablet 50 mg 50 mg, Oral, 2 TIMES DAILY, First dose on Fri07/03/22 at 1245, Hold for SBP<110 $Given 07/04/2022 11:06 AM [facility] 50 mg $Given 07/03/2022 7:52 PM [facility] 50 mg $Given 07/03/2022 1:44 PM [facility] 50 mg HYDROmorphone (DILAUDID) injection 0.4 mg 0.4 mg, Intravenous, EVERY 2 HOURS PRN, severe pain, IF patient cannot take oral opioid OR IF pain not managed with non-pharmacological, non-opioid, or oral opioid interventions if ordered, Starting on Fri07/03/22 at 0915, May use concomitant with non-opioid analgesics. $Given 07/03/2022 6:17 PM [facility] 0.4 mg HYDROmorphone (DILAUDID) injection 1 mg 1 mg, Intravenous, ONCE, On Fri07/03/22 at 0650, For 1 dose $Given 07/03/2022 6:53 AM [facility] 1 mg HYDROmorphone (DILAUDID) tablet 2 mg 2 mg, Oral, EVERY 4 HOURS PRN, severe pain, IF pain not managed with non-pharmacological and non-opioid interventions, Starting on Fri07/03/22 at 0915, May use concomitant with non-opioid analgesics. $Given 07/04/2022 4:31 PM [facility] 2 mg $Given 07/04/2022 8:39 AM [facility] 2 mg $Given 07/03/2022 1:47 PM [facility] 2 mg HYDROmorphone (PF) (DILAUDID) injection 0.5 mg 0.5 mg, Intravenous, ONCE, On Fri07/03/22 at 0850, For 1 dose $Given 07/03/2022 9:07 AM [facility] 0.5 mg hydrOXYzine (ATARAX) tablet 25 mg 25 mg, Oral, EVERY 6 HOURS PRN, other, itching, adjuvant pain, Starting on Fri07/03/22 at 2014, Start with 25 mg for the initial dose. If the 25 mg dose is ineffective, increase to the 50 mg dose at the next administration time and maintain further doses at 50 mg. If the 50 mg dose is ineffective, contact the provider. $Given 07/03/2022 9:13 PM [facility] 25 mg iopamidol (ISOVUE-370) solution 75 mL 75 mL, Intravenous, ONCE, On Fri07/03/22 at 1015, For 1 dose $Given 07/03/2022 10:16 AM [facility] 75 mLs labetalol (NORMODYNE/TRANDATE) injection 10 mg 10 mg, Intravenous, ONCE, On Fri07/03/22 at 0745, For 1 dose, PROTECT FROM LIGHT. $Given 07/03/2022 7:51 AM [facility] 10 mg lisinopril (ZESTRIL) tablet 20 mg 20 mg, Oral, DAILY, First dose on Fri07/03/22 at 1235, Hold for SBP<110 $Given 07/04/2022 11:06 AM [facility] 20 mg $Given 07/03/2022 1:44 PM [facility] 20 mg magnesium oxide (MAG-OX) tablet 400 mg 400 mg, Oral, ONCE, On Fri07/04/22 at 1500, For 1 dose $Given 07/04/2022 2:43 PM [facility] 400 mg minoxidil (LONITEN) tablet 2.5 mg 2.5 mg, Oral, DAILY, First dose on Fri07/04/22 at 0800 $Given 07/04/2022 11:06 AM [facility] 2.5 mg naloxone (NARCAN) injection 0.2 mg 0.2 mg, Intravenous, EVERY 2 MIN PRN, opioid reversal, Starting on Fri07/03/22 at 1205, Administer intravenous route when available and notify provider when administered. For unintended sedation or respiratory depression if all of the below criteria are met: ~ respiratory rate LESS than or EQUAL to 8. ~SaO2 less than 92% and or/end-tidal CO2 is greater than 50. ~ the patient is receiving an opioid, has unintended sedations assessed as RASS (-3), and is currently not on mechanical ventilation. RASS scale moderate (-3) is movement or eye opening to voice but no eye contact. Patient Monitoring Once the patient has demonstrated a response to the naloxone, continue to monitor respiratory rate, depth, oxygen saturation and end-tidal CO2 (if available) every 15 minutes x 2, then every 30 minutes x 2, then every 1 hour x 1 after each naloxone dose. Consider transfer to ICU if patient respiratory parameters have not improved after 4 naloxone doses. naloxone (NARCAN) injection 0.2 mg 0.2 mg, Intramuscular, EVERY 2 MIN PRN, opioid reversal, Starting on Fri07/03/22 at 1205, Administer intramuscular if an intravenous route is not available and notify provider when administered. For unintended sedation or respiratory depression if all of the below criteria are met: ~ respiratory rate LESS than or EQUAL to 8. ~SaO2 less than 92% and or/end-tidal CO2 is greater than 50. ~ the patient is receiving an opioid, has unintended sedations assessed as RASS (-3), and is currently not on mechanical ventilation. RASS scale moderate (-3) is movement or eye opening to voice but no eye contact. Patient Monitoring Once the patient has demonstrated a response to the naloxone, continue to monitor respiratory rate, depth, oxygen saturation and end-tidal CO2 (if available) every 15 minutes x 2, then every 30 minutes x 2, then every 1 hour x 1 after each naloxone dose. Consider transfer to ICU if patient respiratory parameters have not improved after 4 naloxone doses. naloxone (NARCAN) injection 0.4 mg 0.4 mg, Intravenous, EVERY 2 MIN PRN, opioid reversal, Starting on Fri07/03/22 at 1205, Administer intravenous route when available and notify provider when administered. For unintended sedation or respiratory depression if all of the below criteria are met: ~ respiratory rate LESS than or EQUAL to 8. ~ SaO2 less than 92% and or/end-tidal CO2 is greater than 50. ~ the patient is receiving an opioid, has unintended sedation assessed as RASS (-4) or (-5) and patient is currently not on mechanical ventilation. RASS scale (-4) is deep sedation with no response to voice but movement or eye opening to physical stimulation. RASS scale (-5) is unarousable. Patient Monitoring Once the patient has demonstrated a response to the naloxone, continue to monitor respiratory rate, depth, oxygen saturation and end-tidal CO2 (if available) every 15 minutes x 2, then every 30 minutes x 2, then every 1 hour x 1 after each naloxone dose. Consider transfer to ICU if patient respiratory parameters have not improved after 4 naloxone doses. naloxone (NARCAN) injection 0.4 mg 0.4 mg, Intramuscular, EVERY 2 MIN PRN, opioid reversal, Starting on Fri07/03/22 at 1205, Administer intramuscular if an intravenous route is not available and notify provider when administered. For unintended sedation or respiratory depression if all of the below criteria are met: ~ respiratory rate LESS than or EQUAL to 8. ~ SaO2 less than 92% and or/end-tidal CO2 is greater than 50. ~ the patient is receiving an opioid, has unintended sedation assessed as RASS (-4) or (-5) and patient is currently not on mechanical ventilation. RASS scale (-4) is deep sedation with no response to voice but movement or eye opening to physical stimulation. RASS scale (-5) is unarousable. Patient Monitoring Once the patient has demonstrated a response to the naloxone, continue to monitor respiratory rate, depth, oxygen saturation and end-tidal CO2 (if available) every 15 minutes x 2, then every 30 minutes x 2, then every 1 hour x 1 after each naloxone dose. Consider transfer to ICU if patient respiratory parameters have not improved after 4 naloxone doses. ondansetron (ZOFRAN ODT) ODT tab 4 mg 4 mg, Oral, EVERY 6 HOURS PRN, nausea, vomiting, Starting on Fri07/03/22 at 1027, This is Step 1 of nausea and vomiting management. If nausea not resolved in 15 minutes, go to Step 2 prochlorperazine (COMPAZINE). With dry hands, peel back foil backing and gently remove tablet. Do not push oral disintegrating tablet through foil backing. Administer immediately on tongue and oral disintegrating tablet dissolves in seconds, then swallow with saliva. Liquid not required. ondansetron (ZOFRAN) injection 4 mg 4 mg, Intravenous, EVERY 6 HOURS PRN, nausea, vomiting, Administer over 2-5 Minutes, Starting on Fri07/03/22 at 1027, Give IF patient unable to tolerate oral medication. This is Step 1 of nausea and vomiting management. If nausea not resolved in 15 minutes, go to Step 2 prochlorperazine (COMPAZINE). Irritant. $Given 07/03/2022 6:46 PM [facility] 4 mg $Given 07/03/2022 10:29 AM [facility] 4 mg prochlorperazine (COMPAZINE) injection 10 mg 10 mg, Intravenous, EVERY 6 HOURS PRN, nausea, vomiting, Administer over 1-2 Minutes, Starting on Fri07/03/22 at 1234, IF patient unable to tolerate oral medication. This is Step 2 of nausea and vomiting management. Give if nausea not resolved 15 minutes after giving ondansetron (ZOFRAN). prochlorperazine (COMPAZINE) suppository 25 mg 25 mg, Rectal, EVERY 12 HOURS PRN, nausea, vomiting, Starting on Fri07/03/22 at 1234, This is Step 2 of nausea and vomiting management. Give if nausea not resolved 15 minutes after giving ondansetron (ZOFRAN). prochlorperazine (COMPAZINE) tablet 10 mg 10 mg, Oral, EVERY 6 HOURS PRN, vomiting, Starting on Fri07/03/22 at 1234, This is Step 2 of nausea and vomiting management. Give if nausea not resolved 15 minutes after giving ondansetron (ZOFRAN). senna-docusate (SENOKOT-S/PERICOLACE) 8.6-50 MG per tablet 1 tablet 1 tablet, Oral, 2 TIMES DAILY PRN, constipation, Starting on Fri07/03/22 at 1234, If no bowel movement in 24 hours, increase to 2 tablets by mouth. IF more than 1 constipation PRN medication is ordered, administer step-goetz as indicated, moving to the next step ONLY if prior step ineffective. Step 1: senna-docusate (SENOKOT-S; PERICOLACE) OR bisacodyl (DULCOLAX) EC tablet Step 2: magnesium hydroxide (MILK OF MAGNESIA) OR polyethylene glycol (MIRALAX/GLYCOLAX) Step 3: bisacodyl (DULCOLAX) suppository Step 4: sodium phosphate (FLEET ENEMA) Hold for loose stools. senna-docusate (SENOKOT-S/PERICOLACE) 8.6-50 MG per tablet 2 tablet 2 tablet, Oral, 2 TIMES DAILY PRN, constipation, Starting on Fri07/03/22 at 1234, IF more than 1 constipation PRN medication is ordered, administer step-goetz as indicated, moving to the next step ONLY if prior step ineffective. Step 1: senna-docusate (SENOKOT-S; PERICOLACE) OR bisacodyl (DULCOLAX) EC tablet Step 2: magnesium hydroxide (MILK OF MAGNESIA) OR polyethylene glycol (MIRALAX/GLYCOLAX) Step 3: bisacodyl (DULCOLAX) suppository Step 4: sodium phosphate (FLEET ENEMA) Hold for loose stools. sodium chloride (PF) 0.9% PF flush 3 mL 3 mL, Intracatheter, EVERY 8 HOURS, First dose on Fri07/03/22 at 1235, to lock peripheral IV dormant line $Given 07/04/2022 5:26 AM [facility] 3 mLs sodium chloride (PF) 0.9% PF flush 60 mL 60 mL, Intravenous, ONCE, On Fri07/03/22 at 1015, For 1 dose $Given 07/03/2022 10:16 AM [facility] 60 mLs documented in this encounter Active and Recently Administered Medications Times are shown in [facility]. Scheduled Medication Order 07/02/2022 07/03/2022 07/04/2022 0.9% sodium chloride BOLUS (COMPLETED) Intravenous, 250 mL, ONCE IN DIALYSIS/CRRT, On Fri07/03/22 at 1200, For 1 dose, For patient prime during dialysis, Dialysis 1617 ($New Bag - Provider: Tanja Cody RN) 0.9% sodium chloride BOLUS (COMPLETED) Hemodialysis Machine, 300 mL, ONCE, On Fri07/03/22 at 1200, For 1 dose, For Dialyzer Prime. (In Dialyzer), Dialysis 1617 ($New Bag - Provider: Tanja Cody RN) 0.9% sodium chloride BOLUS Intravenous, 250 mL, ONCE IN DIALYSIS/CRRT, On Diana 07/04/22 at 0730, For 1 dose, For patient prime during dialysis, Dialysis 1140 (Canceled Entry - Provider: Dede Magana, IOANA) 0.9% sodium chloride BOLUS Hemodialysis Machine, 300 mL, ONCE, On Diana 07/04/22 at 0730, For 1 dose, For Dialyzer Prime. (In Dialyzer), Dialysis 0730 (Canceled Entry - Provider: Orders Generic Provider - Comment: Automatically canceled at discontinue of medication order) amLODIPine (NORVASC) tablet 10 mg 10 mg, Oral, DAILY, First dose on Fri07/03/22 at 1235, Hold for SBP<110 1344 ($Given - Provider: Patricia John RN) 1106 ($Given - Provider: Dede Magana, IOANA) amoxicillin-clavulanate (AUGMENTIN) 500-125 MG per tablet 1 tablet Routine, 1 tablet, Oral, EVERY 24 HOURS SCHEDULED, First dose on Diana 07/04/22 at 1200, Give after dialysis on dialysis days., Indications: Tooth infection 1232 ($Given - Provi krystina: Dede Magana RN) epoetin jasmin-epbx (RETACRIT) injection 4,000 Units (COMPLETED) 4,000 Units, Intravenous, ONCE IN DIALYSIS/CRRT, On Fri07/03/22 at 1200, For 1 dose, Give during dialysis., Dialysis 1618 ($Given - Provider: Tanja Cody RN) hydrALAZINE (APRESOLINE) tablet 50 mg 50 mg, Oral, 2 TIMES DAILY, First dose on Fri07/03/22 at 1245, Hold for SBP<110 1344 ($Given - Provider: Patricia John RN)1952 ($Given - Provider: Juhi Pro RN) 1106 ($Given - Provider: Dede Magana, IOANA)1999 (Canceled Entry - Provider: Orders Generic Provider - Comment: Automatically canceled at discontinue of medication order) HYDROmorphone (DILAUDID) injection 1 mg (COMPLETED) 1 mg, Intravenous, ONCE, On Fri07/03/22 at 0650, For 1 dose 0653 ($Given - Provider: Narcisa Carey RN) HYDROmorphone (PF) (DILAUDID) injection 0.5 mg (COMPLETED) 0.5 mg, Intravenous, ONCE, On Fri07/03/22 at 0850, For 1 dose 0907 ($Given - Provider: Sundeep Mosley RN) iopamidol (ISOVUE-370) solution 75 mL (COMPLETED) 75 mL, Intravenous, ONCE, On Fri07/03/22 at 1015, For 1 dose 1016 ($Given - Provider: Pablo Read) labetalol (NORMODYNE/TRANDATE) injection 10 mg (COMPLETED) 10 mg, Intravenous, ONCE, On Fri07/03/22 at 0745, For 1 dose, PROTECT FROM LIGHT. 0751 ($Given - Provider: Sundeep Mosley RN) lisinopril (ZESTRIL) tablet 20 mg 20 mg, Oral, DAILY, First dose on Fri07/03/22 at 1235, Hold for SBP<110 1344 ($Given - Provider: Patricia John RN) 1106 ($Given - Provider: Dede Magana, IOANA) magnesium oxide (MAG-OX) tablet 400 mg (COMPLETED) 400 mg, Oral, ONCE, On Fri07/04/22 at 1500, For 1 dose 1443 ($Given - Provi krystina: Dede Magana, IOANA) minoxidil (LONITEN) tablet 2.5 mg 2.5 mg, Oral, DAILY, First dose on Fri07/04/22 at 0800 1106 ($Given - Provi krystina: Dede Magana RN) No heparin via hemodialysis machine ONCE, 1 dose, On Fri07/04/22 at 0730, Normal saline flushes may be used to maintain patency of circuit., Dialysis 0730 (Canceled Entry - Provider: Orders Generic Provider - Comment: Automatically canceled at discontinue of medication order) sodium chloride (PF) 0.9% PF flush 3 mL 3 mL, Intracatheter, EVERY 8 HOURS, First dose on Fri07/03/22 at 1235, to lock peripheral IV dormant line 1345 (Canceled Entry - Provider: Patricia John, IOANA)1954 (Not Given - Provider: Juhi Pro, IOANA - Reason: Other - Comment: given an hour ago with IV dilaudid) 0526 ($Given - Provider: Faustino Zamora, RN)1234 (Not Given - Provider: Dede Magana RN - Reason: Other) sodium chloride (PF) 0.9% PF flush 60 mL (COMPLETED) 60 mL, Intravenous, ONCE, On Fri07/03/22 at 1015, For 1 dose 1016 ($Given - Provider: Pablo Read) PRN Medication Order 07/02/2022 07/03/2022 07/04/2022 0.9% sodium chloride BOLUS Intravenous, 100-150 mL, EVERY 15 MIN PRN, Until hypotensive symptoms resolve, Starting on Diana 07/04/22 at 0706, For 10 doses, Up to 1000 mL maximum total dose. Give if needed to manage Systolic Blood Pressure as indicated in Hemodialysis Single Treatment set up. Notify provider if patient blood pressure is not responsive with the bolus., Dialysis acetaminophen (TYLENOL) Suppository 650 mg(Linked Group 1) 650 mg, Rectal, EVERY 4 HOURS PRN, mild pain, Starting on Fri07/03/22 at 0845, Maximum acetaminophen dose from all sources = 75 mg/kg/day not to exceed 4 grams/day. acetaminophen (TYLENOL) tablet 650 mg(Linked Group 1) 650 mg, Oral, EVERY 4 HOURS PRN, mild pain, Starting on Fri07/03/22 at 0845, Maximum acetaminophen dose from all sources = 75 mg/kg/day not to exceed 4 grams/day. hydrALAZINE (APRESOLINE) injection 10 mg 10 mg, Intravenous, EVERY 4 HOURS PRN, high blood pressure, give for SBP > 180, Starting on Fri07/03/22 at 0846 HYDROmorphone (DILAUDID) half-tab 1 mg 1 mg, Oral, EVERY 4 HOURS PRN, moderate pain (4-6), IF pain not managed with non-pharmacological and non-opioid interventions, Starting on Fri07/03/22 at 0915, May use concomitant with non-opioid analgesics. HYDROmorphone (DILAUDID) injection 0.2 mg 0.2 mg, Intravenous, EVERY 2 HOURS PRN, moderate pain (4-6), IF patient cannot take oral opioid OR IF pain not managed with non-pharmacological, non-opioid, or oral opioid interventions if ordered, Starting on Fri07/03/22 at 0915, May use concomitant with non-opioid analgesics. HYDROmorphone (DILAUDID) injection 0.4 mg 0.4 mg, Intravenous, EVERY 2 HOURS PRN, severe pain, IF patient cannot take oral opioid OR IF pain not managed with non-pharmacological, non-opioid, or oral opioid interventions if ordered, Starting on Fri07/03/22 at 0915, May use concomitant with non-opioid analgesics. 1817 ($Given - Provider: Juhi Pro RN) HYDROmorphone (DILAUDID) tablet 2 mg 2 mg, Oral, EVERY 4 HOURS PRN, severe pain, IF pain not managed with non-pharmacological and non-opioid interventions, Starting on Fri07/03/22 at 0915, May use concomitant with non-opioid analgesics. 1347 ($Given - Provider: Patricia John, IOANA) 0839 ($Given - Provider: Dede Magana RN)1631 ($Given - Provider: Paul Cooper RN) hydrOXYzine (ATARAX) tablet 25 mg (CANCELED)(Linked Group 2) 25 mg, Oral, EVERY 6 HOURS PRN, other, itching, adjuvant pain, Starting on Fri07/03/22 at 2014, Start with 25 mg for the initial dose. If the 25 mg dose is ineffective, increase to the 50 mg dose at the next administration time and maintain further doses at 50 mg. If the 50 mg dose is ineffective, contact the provider. 5713 ($Given - Provider: Juhi Pro, IOANA) lidocaine (LMX4) cream Topical, EVERY 1 HOUR PRN, pain, with VAD insertion, Starting on Fri07/03/22 at 1234, Apply at least 30 minutes prior to VAD insertion in divided doses as needed for size of site for insertion. MAX Dose: 2.5 g (?? of 5 g tube) Do NOT give if patient has a history of allergy to any local anesthetic or any osman product. Do NOT use both lidocaine intradermal/subcutaneous injection and the lidocaine cream on the same site. lidocaine 1 % 0.1-1 mL 0.1-1 mL, Other, EVERY 1 HOUR PRN, mild pain with VAD insertion, Starting on Fri07/03/22 at 1234, MAX dose 1 mL subcutaneous OR intradermal along the side of the vein in divided doses as needed for VAD insertion. Do NOT give if patient has a history of allergy to any local anesthetic or any osman product. Do NOT use both lidocaine intradermal/subcutaneous injection and the lidocaine cream on the same site. melatonin tablet 1 mg 1 mg, Oral, AT BEDTIME PRN, sleep, Starting on Fri07/03/22 at 1234, Do not give unless at least 6 hours of uninterrupted sleep is expected. naloxone (NARCAN) injection 0.2 mg(Linked Group 3) 0.2 mg, Intravenous, EVERY 2 MIN PRN, opioid reversal, Starting on Fri07/03/22 at 1205, Administer intravenous route when available and notify provider when administered. For unintended sedation or respiratory depression if all of the below criteria are met: ~ respiratory rate LESS than or EQUAL to 8. ~SaO2 less than 92% and or/end-tidal CO2 is greater than 50. ~ the patient is receiving an opioid, has unintended sedations assessed as RASS (-3), and is currently not on mechanical ventilation. RASS scale moderate (-3) is movement or eye opening to voice but no eye contact. Patient Monitoring Once the patient has demonstrated a response to the naloxone, continue to monitor respiratory rate, depth, oxygen saturation and end-tidal CO2 (if available) every 15 minutes x 2, then every 30 minutes x 2, then every 1 hour x 1 after each naloxone dose. Consider transfer to ICU if patient respiratory parameters have not improved after 4 naloxone doses. naloxone (NARCAN) injection 0.2 mg(Linked Group 3) 0.2 mg, Intramuscular, EVERY 2 MIN PRN, opioid reversal, Starting on Fri07/03/22 at 1205, Administer intramuscular if an intravenous route is not available and notify provider when administered. For unintended sedation or respiratory depression if all of the below criteria are met: ~ respiratory rate LESS than or EQUAL to 8. ~SaO2 less than 92% and or/end-tidal CO2 is greater than 50. ~ the patient is receiving an opioid, has unintended sedations assessed as RASS (-3), and is currently not on mechanical ventilation. RASS scale moderate (-3) is movement or eye opening to voice but no eye contact. Patient Monitoring Once the patient has demonstrated a response to the naloxone, continue to monitor respiratory rate, depth, oxygen saturation and end-tidal CO2 (if available) every 15 minutes x 2, then every 30 minutes x 2, then every 1 hour x 1 after each naloxone dose. Consider transfer to ICU if patient respiratory parameters have not improved after 4 naloxone doses. naloxone (NARCAN) injection 0.4 mg(Linked Group 3) 0.4 mg, Intravenous, EVERY 2 MIN PRN, opioid reversal, Starting on Fri07/03/22 at 1205, Administer intravenous route when available and notify provider when administered. For unintended sedation or respiratory depression if all of the below criteria are met: ~ respiratory rate LESS than or EQUAL to 8. ~ SaO2 less than 92% and or/end-tidal CO2 is greater than 50. ~ the patient is receiving an opioid, has unintended sedation assessed as RASS (-4) or (-5) and patient is currently not on mechanical ventilation. RASS scale (-4) is deep sedation with no response to voice but movement or eye opening to physical stimulation. RASS scale (-5) is unarousable. Patient Monitoring Once the patient has demonstrated a response to the naloxone, continue to monitor respiratory rate, depth, oxygen saturation and end-tidal CO2 (if available) every 15 minutes x 2, then every 30 minutes x 2, then every 1 hour x 1 after each naloxone dose. Consider transfer to ICU if patient respiratory parameters have not improved after 4 naloxone doses. naloxone (NARCAN) injection 0.4 mg(Linked Group 3) 0.4 mg, Intramuscular, EVERY 2 MIN PRN, opioid reversal, Starting on Fri07/03/22 at 1205, Administer intramuscular if an intravenous route is not available and notify provider when administered. For unintended sedation or respiratory depression if all of the below criteria are met: ~ respiratory rate LESS than or EQUAL to 8. ~ SaO2 less than 92% and or/end-tidal CO2 is greater than 50. ~ the patient is receiving an opioid, has unintended sedation assessed as RASS (-4) or (-5) and patient is currently not on mechanical ventilation. RASS scale (-4) is deep sedation with no response to voice but movement or eye opening to physical stimulation. RASS scale (-5) is unarousable. Patient Monitoring Once the patient has demonstrated a response to the naloxone, continue to monitor respiratory rate, depth, oxygen saturation and end-tidal CO2 (if available) every 15 minutes x 2, then every 30 minutes x 2, then every 1 hour x 1 after each naloxone dose. Consider transfer to ICU if patient respiratory parameters have not improved after 4 naloxone doses. ondansetron (ZOFRAN ODT) ODT tab 4 mg(Linked Group 4) 4 mg, Oral, EVERY 6 HOURS PRN, nausea, vomiting, Starting on Fri07/03/22 at 1027, This is Step 1 of nausea and vomiting management. If nausea not resolved in 15 minutes, go to Step 2 prochlorperazine (COMPAZINE). With dry hands, peel back foil backing and gently remove tablet. Do not push oral disintegrating tablet through foil backing. Administer immediately on tongue and oral disintegrating tablet dissolves in seconds, then swallow with saliva. Liquid not required. 1029 (See Alternative - Provider: Sundeep Mosley RN)1846 (See Alternative - Provider: Juhi Pro RN) ondansetron (ZOFRAN) injection 4 mg(Linked Group 4) 4 mg, Intravenous, EVERY 6 HOURS PRN, nausea, vomiting, Administer over 2-5 Minutes, Starting on Fri07/03/22 at 1027, Give IF patient unable to tolerate oral medication. This is Step 1 of nausea and vomiting management. If nausea not resolved in 15 minutes, go to Step 2 prochlorperazine (COMPAZINE). Irritant. 1029 ($Given - Provider: Sundeep Mosley RN)1846 ($Given - Provider: Juhi Pro RN) polyethylene glycol (MIRALAX) Packet 17 g 17 g, Oral, DAILY PRN, constipation, Starting on Fri07/03/22 at 1234, IF more than 1 constipation PRN medication is ordered, administer step-goetz as indicated, moving to the next step ONLY if prior step ineffective. Step 1: senna-docusate (SENOKOT-S; PERICOLACE) OR bisacodyl (DULCOLAX) EC tablet Step 2: magnesium hydroxide (MILK OF MAGNESIA) OR polyethylene glycol (MIRALAX/GLYCOLAX) Step 3: bisacodyl (DULCOLAX) suppository Step 4: sodium phosphate (FLEET ENEMA) 1 Packet = 17 grams. Mix each gram with at least 1/2 ounce (15 mL) of water - 8 ounces for 17 g dose, 4 ounces for 8.5 g dose, 2 ounces for 4 g dose. Follow with the same volume of water. Hold for loose stools unless being administered as part of a bowel prep regimen or bowel clean out. prochlorperazine (COMPAZINE) injection 10 mg(Linked Group 5) 10 mg, Intravenous, EVERY 6 HOURS PRN, nausea, vomiting, Administer over 1-2 Minutes, Starting on Fri07/03/22 at 1234, IF patient unable to tolerate oral medication. This is Step 2 of nausea and vomiting management. Give if nausea not resolved 15 minutes after giving ondansetron (ZOFRAN). prochlorperazine (COMPAZINE) suppository 25 mg(Linked Group 5) 25 mg, Rectal, EVERY 12 HOURS PRN, nausea, vomiting, Starting on Fri07/03/22 at 1234, This is Step 2 of nausea and vomiting management. Give if nausea not resolved 15 minutes after giving ondansetron (ZOFRAN). prochlorperazine (COMPAZINE) tablet 10 mg(Linked Group 5) 10 mg, Oral, EVERY 6 HOURS PRN, vomiting, Starting on Fri07/03/22 at 1234, This is Step 2 of nausea and vomiting management. Give if nausea not resolved 15 minutes after giving ondansetron (ZOFRAN). senna-docusate (SENOKOT-S/PERICOLACE) 8.6-50 MG per tablet 1 tablet(Linked Group 6) 1 tablet, Oral, 2 TIMES DAILY PRN, constipation, Starting on Fri07/03/22 at 1234, If no bowel movement in 24 hours, increase to 2 tablets by mouth. IF more than 1 constipation PRN medication is ordered, administer step-goetz as indicated, moving to the next step ONLY if prior step ineffective. Step 1: senna-docusate (SENOKOT-S; PERICOLACE) OR bisacodyl (DULCOLAX) EC tablet Step 2: magnesium hydroxide (MILK OF MAGNESIA) OR polyethylene glycol (MIRALAX/GLYCOLAX) Step 3: bisacodyl (DULCOLAX) suppository Step 4: sodium phosphate (FLEET ENEMA) Hold for loose stools. senna-docusate (SENOKOT-S/PERICOLACE) 8.6-50 MG per tablet 2 tablet(Linked Group 6) 2 tablet, Oral, 2 TIMES DAILY PRN, constipation, Starting on Fri07/03/22 at 1234, IF more than 1 constipation PRN medication is ordered, administer step-goetz as indicated, moving to the next step ONLY if prior step ineffective. Step 1: senna-docusate (SENOKOT-S; PERICOLACE) OR bisacodyl (DULCOLAX) EC tablet Step 2: magnesium hydroxide (MILK OF MAGNESIA) OR polyethylene glycol (MIRALAX/GLYCOLAX) Step 3: bisacodyl (DULCOLAX) suppository Step 4: sodium phosphate (FLEET ENEMA) Hold for loose stools. sodium chloride (PF) 0.9% PF flush 3 mL 3 mL, Intracatheter, EVERY 1 MIN PRN, line flush, other, to ensure patency or to lock dormant line, Starting on Fri07/03/22 at 1234 Linked Groups Order Group 1: acetaminophen (TYLENOL) tablet 650 mgJump to med 650 mg, Oral, EVERY 4 HOURS PRN, mild pain, Starting on Fri07/03/22 at 0845, Maximum acetaminophen dose from all sources = 75 mg/kg/day not to exceed 4 grams/day. Or acetaminophen (TYLENOL) Suppository 650 mgJump to med 650 mg, Rectal, EVERY 4 HOURS PRN, mild pain, Starting on Fri07/03/22 at 0845, Maximum acetaminophen dose from all sources = 75 mg/kg/day not to exceed 4 grams/day. Group 2: hydrOXYzine (ATARAX) tablet 25 mg (CANCELED)Jump to med 25 mg, Oral, EVERY 6 HOURS PRN, other, itching, adjuvant pain, Starting on Fri07/03/22 at 2014, Start with 25 mg for the initial dose. If the 25 mg dose is ineffective, increase to the 50 mg dose at the next administration time and maintain further doses at 50 mg. If the 50 mg dose is ineffective, contact the provider. Or hydrOXYzine (ATARAX) tablet 50 mg (CANCELED) 50 mg, Oral, EVERY 6 HOURS PRN, other, adjuvant pain, Starting on Fri07/03/22 at 2014, Start with 25 mg for the initial dose. If the 25 mg dose is ineffective, increase to the 50 mg dose at the next administration time and maintain further doses at 50 mg. If the 50 mg dose is ineffective, contact the provider. Group 3: naloxone (NARCAN) injection 0.2 mgJump to med 0.2 mg, Intravenous, EVERY 2 MIN PRN, opioid reversal, Starting on Fri07/03/22 at 1205, Administer intravenous route when available and notify provider when administered. For unintended sedation or respiratory depression if all of the below criteria are met: ~ respiratory rate LESS than or EQUAL to 8. ~SaO2 less than 92% and or/end-tidal CO2 is greater than 50. ~ the patient is receiving an opioid, has unintended sedations assessed as RASS (-3), and is currently not on mechanical ventilation. RASS scale moderate (-3) is movement or eye opening to voice but no eye contact. Patient Monitoring Once the patient has demonstrated a response to the naloxone, continue to monitor respiratory rate, depth, oxygen saturation and end-tidal CO2 (if available) every 15 minutes x 2, then every 30 minutes x 2, then every 1 hour x 1 after each naloxone dose. Consider transfer to ICU if patient respiratory parameters have not improved after 4 naloxone doses. Or naloxone (NARCAN) injection 0.4 mgJump to med 0.4 mg, Intravenous, EVERY 2 MIN PRN, opioid reversal, Starting on Fri07/03/22 at 1205, Administer intravenous route when available and notify provider when administered. For unintended sedation or respiratory depression if all of the below criteria are met: ~ respiratory rate LESS than or EQUAL to 8. ~ SaO2 less than 92% and or/end-tidal CO2 is greater than 50. ~ the patient is receiving an opioid, has unintended sedation assessed as RASS (-4) or (-5) and patient is currently not on mechanical ventilation. RASS scale (-4) is deep sedation with no response to voice but movement or eye opening to physical stimulation. RASS scale (-5) is unarousable. Patient Monitoring Once the patient has demonstrated a response to the naloxone, continue to monitor respiratory rate, depth, oxygen saturation and end-tidal CO2 (if available) every 15 minutes x 2, then every 30 minutes x 2, then every 1 hour x 1 after each naloxone dose. Consider transfer to ICU if patient respiratory parameters have not improved after 4 naloxone doses. Or naloxone (NARCAN) injection 0.2 mgJump to med 0.2 mg, Intramuscular, EVERY 2 MIN PRN, opioid reversal, Starting on Fri07/03/22 at 1205, Administer intramuscular if an intravenous route is not available and notify provider when administered. For unintended sedation or respiratory depression if all of the below criteria are met: ~ respiratory rate LESS than or EQUAL to 8. ~SaO2 less than 92% and or/end-tidal CO2 is greater than 50. ~ the patient is receiving an opioid, has unintended sedations assessed as RASS (-3), and is currently not on mechanical ventilation. RASS scale moderate (-3) is movement or eye opening to voice but no eye contact. Patient Monitoring Once the patient has demonstrated a response to the naloxone, continue to monitor respiratory rate, depth, oxygen saturation and end-tidal CO2 (if available) every 15 minutes x 2, then every 30 minutes x 2, then every 1 hour x 1 after each naloxone dose. Consider transfer to ICU if patient respiratory parameters have not improved after 4 naloxone doses. Or naloxone (NARCAN) injection 0.4 mgJump to med 0.4 mg, Intramuscular, EVERY 2 MIN PRN, opioid reversal, Starting on Fri07/03/22 at 1205, Administer intramuscular if an intravenous route is not available and notify provider when administered. For unintended sedation or respiratory depression if all of the below criteria are met: ~ respiratory rate LESS than or EQUAL to 8. ~ SaO2 less than 92% and or/end-tidal CO2 is greater than 50. ~ the patient is receiving an opioid, has unintended sedation assessed as RASS (-4) or (-5) and patient is currently not on mechanical ventilation. RASS scale (-4) is deep sedation with no response to voice but movement or eye opening to physical stimulation. RASS scale (-5) is unarousable. Patient Monitoring Once the patient has demonstrated a response to the naloxone, continue to monitor respiratory rate, depth, oxygen saturation and end-tidal CO2 (if available) every 15 minutes x 2, then every 30 minutes x 2, then every 1 hour x 1 after each naloxone dose. Consider transfer to ICU if patient respiratory parameters have not improved after 4 naloxone doses. Group 4: ondansetron (ZOFRAN ODT) ODT tab 4 mgJump to med 4 mg, Oral, EVERY 6 HOURS PRN, nausea, vomiting, Starting on Fri07/03/22 at 1027, This is Step 1 of nausea and vomiting management. If nausea not resolved in 15 minutes, go to Step 2 prochlorperazine (COMPAZINE). With dry hands, peel back foil backing and gently remove tablet. Do not push oral disintegrating tablet through foil backing. Administer immediately on tongue and oral disintegrating tablet dissolves in seconds, then swallow with saliva. Liquid not required. Or ondansetron (ZOFRAN) injection 4 mgJump to med 4 mg, Intravenous, EVERY 6 HOURS PRN, nausea, vomiting, Administer over 2-5 Minutes, Starting on Fri07/03/22 at 1027, Give IF patient unable to tolerate oral medication. This is Step 1 of nausea and vomiting management. If nausea not resolved in 15 minutes, go to Step 2 prochlorperazine (COMPAZINE). Irritant. Group 5: prochlorperazine (COMPAZINE) injection 10 mgJump to med 10 mg, Intravenous, EVERY 6 HOURS PRN, nausea, vomiting, Administer over 1-2 Minutes, Starting on Fri07/03/22 at 1234, IF patient unable to tolerate oral medication. This is Step 2 of nausea and vomiting management. Give if nausea not resolved 15 minutes after giving ondansetron (ZOFRAN). Or prochlorperazine (COMPAZINE) tablet 10 mgJump to med 10 mg, Oral, EVERY 6 HOURS PRN, vomiting, Starting on Fri07/03/22 at 1234, This is Step 2 of nausea and vomiting management. Give if nausea not resolved 15 minutes after giving ondansetron (ZOFRAN). Or prochlorperazine (COMPAZINE) suppository 25 mgJump to med 25 mg, Rectal, EVERY 12 HOURS PRN, nausea, vomiting, Starting on Fri07/03/22 at 1234, This is Step 2 of nausea and vomiting management. Give if nausea not resolved 15 minutes after giving ondansetron (ZOFRAN). Group 6: senna-docusate (SENOKOT-S/PERICOLACE) 8.6-50 MG per tablet 1 tabletJump to med 1 tablet, Oral, 2 TIMES DAILY PRN, constipation, Starting on Fri07/03/22 at 1234, If no bowel movement in 24 hours, increase to 2 tablets by mouth. IF more than 1 constipation PRN medication is ordered, administer step-goetz as indicated, moving to the next step ONLY if prior step ineffective. Step 1: senna-docusate (SENOKOT-S; PERICOLACE) OR bisacodyl (DULCOLAX) EC tablet Step 2: magnesium hydroxide (MILK OF MAGNESIA) OR polyethylene glycol (MIRALAX/GLYCOLAX) Step 3: bisacodyl (DULCOLAX) suppository Step 4: sodium phosphate (FLEET ENEMA) Hold for loose stools. Or senna-docusate (SENOKOT-S/PERICOLACE) 8.6-50 MG per tablet 2 tabletJump to med 2 tablet, Oral, 2 TIMES DAILY PRN, constipation, Starting on Fri07/03/22 at 1234, IF more than 1 constipation PRN medication is ordered, administer step-goetz as indicated, moving to the next step ONLY if prior step ineffective. Step 1: senna-docusate (SENOKOT-S; PERICOLACE) OR bisacodyl (DULCOLAX) EC tablet Step 2: magnesium hydroxide (MILK OF MAGNESIA) OR polyethylene glycol (MIRALAX/GLYCOLAX) Step 3: bisacodyl (DULCOLAX) suppository Step 4: sodium phosphate (FLEET ENEMA) Hold for loose stools. documented in this encounter Care Teams [employer] Expert Relationship Specialty Start Date End Date No Ref-Primary, Physician PCP - General 04/14/22 documented as of this encounter
--- OUTSIDE RECORDS SUMMARY | 2023-05-08 16:21 | XMS_ITS | Encounter Summary ---
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 Emergency Dept [address] [place] [id number] [phone] Senthil Stevenson MD [facility] [address] [place], [place] [id number] Rachid Wood MD [facility] [address] [place] [address] ESRD on hemodialysis (H); Essential hypertension; Abdominal pain, generalized; Otalgia, bilateral Discharge Disposition: Home or Self Care Social [...] suspected to have Coronavirus/COVID-19? No / Unsure 09/14/2022 5:17 AM CDT documented as of this encounter Last Filed Vital Signs Vital Sign Reading Time Taken Comments Blood Pressure 216/121 09/14/2022 9:13 AM CDT Pulse 110 09/14/2022 9:13 AM CDT Temperature 36.8 ??C (98.3 ??F) 09/14/2022 5:18 AM CD T Respiratory Rate 20 09/14/2022 5:18 AM CDT Oxygen Saturation 100% 09/14/2022 9:14 AM CDT Inhaled Oxygen Concentration - - Weight 68 kg (150 lb) 09/14/2022 8:58 AM CDT Height 162.6 cm (5' 4) 09/14/2022 8:58 AM CDT Body Mass Index 25.75 09/14/2022 8:58 AM CDT documented in this encounter Discharge Instructions * Discharge Instructions* Senthil Stevenson MD - 09/14/2022 6:56 AM CDT Discharge Instructions Hypertension - High Blood Pressure During you visit to the Emergency Department, your blood pressure was higher than the recommended blood pressure. This may be related to stress, pain, medication or other temporary conditions. In these cases, your blood pressure may return to normal on its own. If you have a history of high blood pressure, you may need to have your provider adjust your medications. Sometimes, your high measurement here may indicate that you have developed high blood pressure that will stay high unless it is treated. As a general rule, high blood pressure causes problems over years rather than days, weeks, or months. So, while it is important to treat blood pressure, it is rarely important to treat blood pres sure immediately. Occasionally we will begin a medication in the Emergency Department; more often we will recommend close follow-up for medications with a primary doctor/clinic. Generally, every Emergency Department visit should have a follow-up clinic visit with either a primary or a specialty clinic/provider. Please follow-up as instructed by your emergency provider today. Return to the Emergency Department if you start to have: A severe headache. Chest pain. Shortness of breath. Weakness or numbness that affects one part of the body. Confusion. Vision changes. Significant swelling of legs and/or eyes. A reaction to any medication started in the Emergency Department. What can I do to help myself? Avoid alcohol. Take any blood pressure medicine that you are prescribed. Get a good night???s sleep. Lower your salt intake. Exercise. Lose weight. Manage stress. See your doctor regularly If blood pressure medication was started in the Emergency Department: The medicine may not have an immediate effect. The body and brain determine what blood pressure youhave. The medicine???s job is to retrain the body???s ???thermostat?? to a lower blood pressure. You will need to follow up with your provider to see how this medicine is working for you. If you were given a prescription for medicine here today, be sure to read all of the information (including the package insert) that comes with your prescription. This will include important information about the medicine, its side effects, and any warnings that you need to know about. The pharmacist who fills the prescription can provide more information and answer questions you may have about the medicine. If you have questions or concerns that the pharmacist cannot address, please call or return to the Emergency Department. Remember that you can always come back to the Emergency Department if you are not able to see your regular provider in the amount of time listed above, if you get any new symptoms, or if there is anything that worries you. ~~~~~~~~~~~~ Discharge Instructions Headache You were seen today for a headache. Headaches may be caused by many different things such as muscletension, sinus inflammation, anxiety and stress, having too little sleep, too much alcohol, some medical conditions or injury. You may have a migraine, which is caused by changes in the blood vesselsin your head. At this time your provider does not find that your headache is a sign of anything chris erous or life-threatening. However, sometimes the signs of serious illness do not show up right away. Generally, every Emergency Department visit should have a follow-up clinic visit with either a primary or a specialty clinic/provider. Please follow-up as instructed by your emergency provider today. Return to the Emergency Department if: You get a new fever of 100.4??F or higher. Your headache gets much worse. You get a stiff neck with your headache. You get a new headache that is significantly different or worse than headaches you have had before. You are vomiting (throwing up) and cannot keep food or water down. You have blurry or double vision or other problems with your eyes. You have a new weakness on one side of your body. You have difficulty with balance which is new. You or your family thinks you are confused. You have a seizure. What can I do to help myself? Pain medications - You may take a pain medication such as Tylenol?? (acetaminophen), Advil??, Motrin?? (ibuprofen) or Aleve?? (naproxen). Take a pain reliever as soon as you notice symptoms. Starting medications as soon as you start to have symptoms may lessen the amount of pain you have. Relaxing in a quiet, dark room may help. Get enough sleep and eat meals regularly. You may need to watch for certain foods or other things which may trigger your headaches. Keeping ajournal of your headaches and possible triggers may help you and your primary provider to identify things which you should avoid which may be causing your headaches. If you were given a prescription for medicine here today, be sure to read all of the information (including the package insert) that comes with your prescription. This will include important information about the medicine, its side effects, and any warnings that you need to know about. The pharmacist who fills the prescription can provide more information and answer questions you may have about the medicine. If you have questions or concerns that the pharmacist cannot address, please call or return to the Emergency Department. Remember that you can always come back to the Emergency Department if you are not able to see your regular provider in the amount of time listed above, if you get any new symptoms, or if there is anything that worries you. ~~~~~~~~~~~~~~~~~~ Discharge Instructions Abdominal Pain Abdominal pain (belly pain) can be caused by many things. Your evaluation today does not show the exact cause for your pain. Your provider today has decided that it is unlikely your pain is due to a life threatening problem, or a problem requiring surgery or hospital admission. Sometimes those problems cannot be found right away, so it is very important that you follow up as directed. Sometimes only the changes which occur over time allow the cause of your pain to be found. Generally, every Emergency Department visit should have a follow-up clinic visit with either a primary or a specialty clinic/provider. Please follow-up as instructed by your emergency provider today.With abdominal pain, we often recommend very close follow-up, such as the following day. ADULTS: Return to the Emergency Department right away if: You get an oral temperature above 102oF or as directed by your provider. You have blood in your stools. This may be bright red or appear as black, tarry stools. You keep vomiting (throwing up) or cannot drink liquids. You see blood when you vomit. You cannot have a bowel movement or you cannot pass gas. Your stomach gets bloated or bigger. Your skin or the whites of your eyes look yellow. You faint. You have bloody, frequent or painful urination (peeing). You have new symptoms or anything that worries you. MORE INFORMATION: Appendicitis: A possible cause of abdominal pain in any person who still has their appendix is acute appendicitis. Appendicitis is often hard to diagnose. Testing does not always rule out early appendicitis or other causes of abdominal pain. Close follow-up with your provider and re-evaluations maybe needed to figure out the reason for your abdominal pain. Follow-up: It is very important that you make an appointment with your clinic and go to the appointment. If you do not follow-up with your primary provider, it may result in missing an important development which could result in permanent injury or disability and/or lasting pain. If there is any problem keeping your appointment, call your provider or return to the Emergency Department. Medications: Take your medications as directed by your provider today. Before using [id number] medications, ask your provider and make sure to take the medications as directed. If you have any questions about medications, ask your provider. Diet: Resume your normal diet as much as possible, but do not eat fried, fatty or spicy foods whileyou have pain. Do not drink alcohol or have caffeine. Do not smoke tobacco. Probiotics: If you have been given an antibiotic, you may want to also take a probiotic pill or eatyogurt with live cultures. Probiotics have good bacteria to help your intestines stay healthy. Studies have shown that probiotics help prevent diarrhea (loose stools) and other intestine problems (including C. diff infection) when you take antibiotics. You can buy these without a prescription in the pharmacy section of the store. If you were given a prescription for medicine here today, be sure to read all of the information (including the package insert) that comes with your prescription. This will include important information about the medicine, its side effects, and any warnings that you need to know about. The pharmacist who fills the prescription can provide more information and answer questions you may have about the medicine. If you have questions or concerns that the pharmacist cannot address, please call or return to the Emergency Department. Remember that you can always come back to the Emergency Department if you are not able to see your regular provider in the amount of time listed above, if you get any new symptoms, or if there is anything that worries you. * Attachments The following attachments cannot be sent through Care Everywhere. * Earache, No Infection (Adult) (Citizen Of [place]) documented in this encounter Medications at Time [...] by mouth daily 30 tablet 1 05/29/2022 documented as of this encounter ED Notes * Alexia Wilkinson RN - 09/14/2022 5:20 AM CDT Patient comes to ED via EMS for evaluation of bilateral headache and abdominal pain/nausea/vomiting. Dialysis patient, last run with no issue. Reports headache for the last week, generalizedabdominal pain in all quadrants started yesterday with nausea/vomiting. Other med hx CHF and seizure disorder. Alert and oriented x 4. Triage Assessment Row Name 09/14/22 0520 Triage Assessment (Adult) Airway WDL WDL Respiratory WDL Respiratory WDL WDL Skin Circulation/Temperature WDL Skin Circulation/Temperature WDL WDL Cardiac WDL Cardiac WDL WDL Peripheral/Neurovascular WDL Peripheral Neurovascular WDL WDL Cognitive/Neuro/Behavioral WDL Cognitive/Neuro/Behavioral WDL WDL * Ana Cuevas RN - 09/14/2022 5:05 AM CDT Bed: ED12 Expected date: 09/14/22 Expected time: 4:52 AM Means of arrival: Ambulance Comments: Ambl, 35m abd/DAS * Senthil Stevenson MD - 09/14/2022 5:05 AM CDT History Chief Complaint: Headache and Abdominal Pain HPI Salbador Justin is a 37 year old male with a history of hypertension and ESRD on dialysis (most recently 09/12/22) who presents via EMS for evaluation of a headache mainly described as bilateral ear pain and abdominal pain. Yesterday around 1999 the patient started to develop generalized pain wrapping across his abdomen with associated nausea, vomiting, and diarrhea. Due to concern for this new pain he called EMS to bring him into the ED for evaluation. He also complains of right ear pain and aheadache that have been presents for about ten days. He reports that he was seen in an urgent care regarding this and completed a five day course of Amoxicillin without significant improvement. He also reports that he had two seizures within the last day. He has previously been advised to take seizure control medications by a neurologist but is not currently on anything for this. Independent Historian: None - Patient Only Review of External Notes: Admission notes from August 18 at the [facility] were reviewed - patient admitted for medication noncompliance and hypertensive urgency. Improved with dialysis.. Medications: Amlodipine Hydralazine Lisinopril Loniten Past Medical History: Diagnosis Anemia of chronic renal failure End-stage renal disease on hemodialysis History of noncompliance with medication regimen Hypertension Peptic ulcer disease Secondary hyperparathyroidism of renal origin Seizure disorder Past Surgical History: The patient denies any past abdominal surgeries. Dialysis fistula creation Physical Exam Patient Vitals for the past 24 hrs: BP Temp Temp src Pulse Resp SpO2 09/14/22 0626 202/130 -- -- 116 -- 100 % 09/14/22 0518 211/136 98.3 ??F (36.8 ??C) Oral 91 20 100 % Physical Exam Nursing note and vitals reviewed. Constitutional: Cooperative. HENT: Mouth/Throat: Mucous membranes are normal. Oropharynx normal. Normal jaw opening and occlusion TMs normal. No mastoid tenderness. No neck rigidity Eyes: No discharge Cardiovascular: Normal rate, regular rhythm and normal heart sounds. No murmur. Pulmonary/Chest: Effort normal and breath sounds normal. No respiratory distress. No wheezes. No rales. Abdominal: Soft. Normal appearance and bowel sounds are normal. No distension. Diffuse upper abdominal tenderness. There is no rigidity and no guarding. Musculoskeletal: Normal range of motion of extremities. Dialysis fistula left forearm with palpablethrill. Neurological: Alert. Oriented x3. Strength normal. Skin: Skin is warm and dry. Psychiatric: Anxious appearing Emergency Department Course Imaging: CT Temporal Bones wo Contrast Final Result IMPRESSION: 1. Partial opacification of the right external auditory canal, which may reflect cerumen. Correlatewith physical exam findings. 2. Otherwise, no evidence of an acute abnormality. CT Abdomen Pelvis without Contrast (stone protocol) Final Result IMPRESSION: 1. The colon is nondistended. There is some mild pericolonic stranding adjacent to the ascending, transverse, and descending colon. Findings are concerning for potential mild colitis. Scattered colonic diverticula without evidence for diverticulitis. Appendix appears within normal limits. 2. Mild vascular calcifications mid and distal abdominal aorta and common iliac arteries without evidence for abdominal aortic aneurysm. Report per radiology Laboratory: Labs Ordered and Resulted from Time of ED Arrival to Time of ED Departure COMPREHENSIVE METABOLIC PANEL - Abnormal Result Value Sodium 137 Potassium 4.4 Chloride 93 (*) Carbon Dioxide (CO2) 18 (*) Anion Gap 26 (*) Urea Nitrogen 48.0 (*) Creatinine 14.96 (*) Calcium 9.8 Glucose 111 (*) Alkaline Phosphatase 40 AST 22 ALT 14 Protein Total 7.1 Albumin 4.7 Bilirubin Total 0.2 GFR Estimate 4 (*) LACTIC ACID WHOLE BLOOD - Abnormal Lactic Acid 0.5 (*) CBC WITH PLATELETS AND DIFFERENTIAL - Abnormal WBC Count 6.5 RBC Count 4.16 (*) Hemoglobin 12.1 (*) Hematocrit 38.2 (*) MCV 92 MCH 29.1 MCHC 31.7 RDW 16.5 (*) Platelet Count 380 % Neutrophils 51 % Lymphocytes 24 % Monocytes 13 % Eosinophils 10 % Basophils 1 % Immature Granulocytes 1 NRBCs per 100 WBC 0 Absolute Neutrophils 3.4 Absolute Lymphocytes 1.6 Absolute Monocytes 0.8 Absolute Eosinophils 0.7 Absolute Basophils 0.1 Absolute Immature Granulocytes 0.0 Absolute NRBCs 0.0 LIPASE - Normal Lipase 50 Interventions: Medications HYDROmorphone (PF) (DILAUDID) injection 0.5 mg (0.5 mg Intravenous $Given 09/14/22 0551) ondansetron (ZOFRAN) injection 4 mg (4 mg Intravenous $Given 09/14/22 0545) hydrALAZINE (APRESOLINE) injection 10 mg (10 mg Intravenous $Given 09/14/22 0546) Assessments: 0520: The patient was seen and evaluated. Independent Interpretation (X-rays, CTs, rhythm strip): None Consultations/Discussion of Management or Tests: None Social Determinants of Health affecting care: Healthcare Compliance Disposition: The patient was discharged to home. Impression & Plan Medical Decision Makin-year-old gentleman with end-stage renal disease who presents with multiple complaints including bilateral ear pain for the past 10 days and abdominal pain and vomiting. In regards to abdominal pain he has nonlocalizing tenderness on exam. His labs are reassuring. CT scan shows no obstructive process or acute surgical issue. There is mild stranding that may represent nonspecific colitis. No blood in his stool or other indication for further work-up in this regard. In regards to his ear pain there is no evidence of otitis media, otitis externa, mastoiditis. Temporal bone scans are reassuring. No evidence of deep space tissue infection. Exact cause for his ear pain is unclear but does not appear to represent an emergency especially with 10 days of symptoms. His blood pressure was noted vero fairly elevated. His morning dose of blood pressure medicine was administered as well as a 10 mgdose of IV hydralazine. He is encouraged to follow this up with his regular physician and continue to take his medication as he is supposed to. He will follow-up with dialysis as scheduled. Diagnosis: ICD-10-CM 1. ESRD on hemodialysis (H) N18.6 Z99.2 2. Essential hypertension I10 3. Abdominal pain, generalized R10.84 4. Otalgia, bilateral H92.03 Scribe Disclosure: Eric Santacruz, am serving as a scribe at 5:23 AM on 09/14/2022 to document services personally performed by Senthil Stevenson MD based on my observations and the provider's statements to me. 09/14/2022 Senthil Stevenson MD Amdahl, John, MD 09/14/22 0718 documented in this encounter Plan of Treatment Not on file documented as of this encounter Procedures Procedure Name Priority Date/Time Associated Diagnosis Comments CT TEMPORAL W/O CONTRAST STAT 09/14/2022 6:[address] ABDOMEN PELVIS W/O CONTRAST STAT 09/14/2022 6:47 AM CDT CBC WITH PLATELETS AND DIFFERENTIAL STAT 09/14/2022 5:48 AM CDT CBC WITH PLATELETS & DIFFERENTIAL STAT 09/14/2022 5:48 AM CDT LIPASE STAT 09/14/2022 5:48 AM CDT LACTIC ACID WHOLE BLOOD STAT 09/14/2022 5:48 AM CDT COMPREHENSIVE METABOLIC PANEL STAT 09/14/2022 5:48 AM CDT documented in this encounter Results * CT Temporal Bones wo Contrast (09/14/2022 6:48 AM CDT) Anatomical Region Laterality Modality Head, SUBRAD CT NEURO, SUBRA D CT NEURO, UMP CT NEURO, RAD CT Computed Tomography 09/14/2022 6:48 AM CDT Impressions 09/14/2022 7:02 AM CDT IMPRESSION: 1. ??Partial opacification of the right external auditory canal, which may reflect cerumen. Correlate with physical exam findings. 2. ??Otherwise, no evidence of an acute abnormality. Narrative 09/14/2022 7:02 AM CDT EXAM: CT TEMPORAL W/O CONTRAST LOCATION: [facility] DATE/TIME: 09/14/2022 6:48 AM CDT INDICATION: Bilateral ear pain COMPARISON: [address] TECHNIQUE: ??Routine without contrast including dedicated thin section multiplanar reformats of each temporal bone. Dose reduction techniques were used. FINDINGS: RIGHT TEMPORAL BONE: Partial opacification of the external auditory canal which may reflect cerumen. Normal appearance of the tympanic membrane. Normal middle ear cavity and ossicles. No mastoid effusion. No evidence for otosclerosis. Normal cochlea, semicircular canals, vestibule, and vestibular aqueduct. Intact bony carotid canal. Thinning with possible dehiscence of the osseous canal overlying tympanic segment of the facial nerve. LEFT TEMPORAL BONE: Normal external auditory canal and tympanic membrane. Normal middle ear cavity and ossicles. No mastoid effusion. No evidence for otosclerosis. Normal cochlea, semicircular canals, vestibule, and vestibular aqueduct. Intact bony carotid canal. Thinning with possible dehiscence of the osseous canal overlying the tympanic segment of the facial nerve. OTHER: Minimal mucosal thickening of the paranasal sinuses. The visualized intracranial compartment is unremarkable. Procedure Note Maryanne Dunham MD - 09/14/2022 EXAM: CT TEMPORAL W/O CONTRAST LOCATION: [facility] DATE/TIME: 09/14/2022 6:48 AM CDT INDICATION: Bilateral ear pain COMPARISON: [address] TECHNIQUE: Routine without contrast including dedicated thin sectionmultiplanar reformats of each temporal bone. Dose reduction techniqueswere used. FINDINGS: RIGHT TEMPORAL BONE: Partial opacification of the external auditory canalwhich may reflect cerumen. Normal appearance of the tympanic membrane.Normal middle ear cavity and ossicles. No mastoid effusion. No evidencefor otosclerosis. Normal cochlea, semicircular canals, vestibule, and vestibular aqueduct. Intact bonycarotid canal. Thinning with possible dehiscence of the osseous canaloverlying tympanic segment of the facial nerve. LEFT TEMPORAL BONE: Normal external auditory canal and tympanic membrane.Normal middle ear cavity and ossicles. No mastoid effusion. No evidencefor otosclerosis. Normal cochlea, semicircular canals, vestibule, andvestibular aqueduct. Intact bony carotid canal. Thinning with possible dehiscence of the osseous canaloverlying the tympanic segment of the facial nerve. OTHER: Minimal mucosal thickening of the paranasal sinuses. The visualizedintracranial compartment is unremarkable. IMPRESSION: 1. Partial opacification of the right external auditory canal, which mayreflect cerumen. Correlate with physical exam findings. 2. Otherwise, no evidence of an acute abnormality. Senthil Stevenson MD IMG CT ORDERABLES * CT Abdomen Pelvis without Contrast (stone protocol) (09/14/2022 6:47 AM CDT) Anatomical Region Laterality Modality Abdomen/Pelvis, SUBRAD CT BRIAN DY, UMP CT ABDOMEN PELVIS, RAD CT Computed Tomography 09/14/2022 6:47 AM CDT Impressions 09/14/2022 7:02 AM CDT IMPRESSION: 1. ??The colon is nondistended. There is some mild pericolonic stranding adjacent to the ascending, transverse, and descending colon. Findings are concerning for potential mild colitis. Scattered colonic diverticula without evidence for diverticulitis. Appendix appears within normal limits. 2. ?? Mild vascular calcifications mid and distal abdominal aorta and common iliac arteries without evidence for abdominal aortic aneurysm. Narrative 09/14/2022 7:02 AM CDT EXAM: CT ABDOMEN AND PELVIS WITHOUT CONTRAST LOCATION: [facility] DATE/TIME: 09/14/2022, 6:47 AM CDT INDICATION: Abdominal pain, nausea. COMPARISON: 05/27/2022. TECHNIQUE: CT scan of the abdomen and pelvis was performed without IV contrast. Multiplanar reformats were obtained. Dose reduction techniques were used. CONTRAST: None. FINDINGS: LOWER CHEST: Normal. HEPATOBILIARY: No significant mass or bile duct dilatation. No calcified gallstones. PANCREAS: Normal. SPLEEN: Normal. ADRENAL GLANDS: Normal. KIDNEYS/BLADDER: Normal. BOWEL: The colon is nondistended. There is some mild pericolonic stranding adjacent to the ascending, transverse, and descending colon. Findings are concerning for potential mild colitis. Scattered colonic diverticula without evidence for diverticulitis. Appendix appears within normal limits. LYMPH NODES: Normal. VASCULATURE: Mild vascular calcifications mid and distal abdominal aorta and common iliac arteries without evidence for abdominal aortic aneurysm. PELVIC ORGANS: No pelvic masses or adenopathy. Tiny amount of free fluid in the pelvic cul-de-sac. MUSCULOSKELETAL: Unremarkable Procedure Note Sundeep Rodriguez MD - 09/14/2022 EXAM: CT ABDOMEN AND PELVIS WITHOUT CONTRAST LOCATION: [facility] DATE/TIME: 09/14/2022, 6:47 AM CDT INDICATION: Abdominal pain, nausea. COMPARISON: 05/27/2022. TECHNIQUE: CT scan of the abdomen and pelvis was performed without IVcontrast. Multiplanar reformats were obtained. Dose reduction techniqueswere used. CONTRAST: None. FINDINGS: LOWER CHEST: Normal. HEPATOBILIARY: No significant mass or bile duct dilatation. No calcifiedgallstones. PANCREAS: Normal. SPLEEN: Normal. ADRENAL GLANDS: Normal. KIDNEYS/BLADDER: Normal. BOWEL: The colon is nondistended. There is some mild pericolonic strandingadjacent to the ascending, transverse, and descending colon. Findings areconcerning for potential mild colitis. Scattered colonic diverticulawithout evidence for diverticulitis. Appendix appears within normal limits. LYMPH NODES: Normal. VASCULATURE: Mild vascular calcifications mid and distal abdominal aortaand common iliac arteries without evidence for abdominal aorticaneurysm. PELVIC ORGANS: No pelvic masses or adenopathy. Tiny amount of free fluidin the pelvic cul-de-sac. MUSCULOSKELETAL: Unremarkable IMPRESSION: 1. The colon is nondistended. There is some mild pericolonic strandingadjacent to the ascending, transverse, and descending colon. Findings areconcerning for potential mild colitis. Scattered colonic diverticulawithout evidence for diverticulitis. Appendix appears within normal limits. 2. Mild vascular calcifications mid and distal abdominal aorta andcommon iliac arteries without evidence for abdominal aortic aneurysm. Senthil Stevenson MD [facility] CT ORDERABLES * (ABNORMAL) CBC with platelets and differential (09/14/2022 5:48 AM CDT) WBC Count 6.5 4.0 - 11.0 10e3/uL 09/14/2022 6:00 AM CDT [facility] RBC Count 4.16(L) 4.40 - 5.90 10e6/uL 09/14/2022 6:00 AM CDT [facility] Hemoglobin 12.1(L) 13.3 - 17.7 g/dL 09/14/2022 6:00 AM CDT [facility] Hematocrit 38.2(L) 40.0 - 53.0 % 09/14/2022 6:00 AM CDT [facility] MCV 92 78 - 100 fL 09/14/2022 6:00 AM CDT [facility] MCH 29.1 26.5 - 33.0 pg 09/14/2022 6:00 AM CDT [facility] MCHC 31.7 31.5 - 36.5 g/dL 09/14/2022 6:00 AM CDT [facility] RDW 16.5(H) 10.0 - 15.0 % 09/14/2022 6:00 AM CDT [facility] Platelet Count 380 150 - 450 10e3/uL 09/14/2022 6:00 AM CDT [facility] % Neutrophils 51 % 09/14/2022 6:00 AM CDT [facility] % Lymphocytes 24 % 09/14/2022 6:00 AM CDT [facility] % Monocytes 13 % 09/14/2022 6:00 AM CDT [facility] % Eosinophils 10 % 09/14/2022 6:00 AM CDT [facility] % Basophils 1 % 09/14/2022 6:00 AM CDT [facility] % Immature Granulocytes 1 % 09/14/2022 6:00 AM CDT [facility] NRBCs per 100 WBC 0 <1 /100 023 6:00 AM CDT [facility] Absolute Neutrophils 3.4 1.6 - 8.3 10e3/uL 09/14/2022 6:00 AM CDT [facility] Absolute Lymphocytes 1.6 0.8 - 5.3 10e3/uL 09/14/2022 6:00 AM CDT [facility] Absolute Monocytes 0.8 0.0 - 1.3 10e3/uL 09/14/2022 6:00 AM CDT [facility] Absolute Eosinophils 0.7 0.0 - 0.7 10e3/uL 09/14/2022 6:00 AM CDT [facility] Absolute Basophils 0.1 0.0 - 0.2 10e3/uL 09/14/2022 6:00 AM CDT [facility] Absolute Immature Granulocytes 0.0 <=0.4 10e3/uL 09/14/2022 6:00 AM CDT [facility] Absolute NRBCs 0.0 10e3/uL 09/14/2022 6:00 AM CDT [facility] Blood BLOOD SPECIMEN / Unknown Venipuncture / Unknown 09/14/2022 5:48 AM CDT 09/14/2022 5:53 AM CDT Senthil Stevenson MD LAB - BLOOD ORDERABL ES [facility] [address] Lab (1st floor, no room number) [place] [address], [facility] [phone] * Lipase (09/14/2022 5:48 AM CDT) Lipase 50 13 - 60 U/L 09/14/2022 6:18 AM CDT [facility] Blood BLOOD SPECIMEN / Unknown Venipuncture / Unknown 09/14/2022 5:48 AM CDT 09/14/2022 5:53 AM CDT Senthil Stevenson MD LAB - BLOOD ORDERABL ES Performing Organization Address [facility]/ZIP Co de Phone Number [facility] [address] Lab (1st floor, no room number) [place] [address], [facility] [phone] * (ABNORMAL) Lactic acid whole blood (09/14/2022 5:48 AM CDT) Lactic Acid 0.5(L) 0.7 - 2.0 mmol/L 09/14/2022 5:57 AM CDT [facility] Blood BLOOD SPECIMEN / Unknown Venipuncture / Unknown 09/14/2022 5:48 AM CDT 09/14/2022 5:52 AM CDT Senthil Stevenson MD LAB - BLOOD ORDERABL ES Performing Organization Address [facility]/ZIP Co de Phone Number [facility] [address] Lab (1st floor, no room number) [place] [address], [facility] [phone] * (ABNORMAL) Comprehensive metabolic panel (09/14/2022 5:48 AM CDT) Sodium 137 136 - 145 mmol/L 09/14/2022 6:18 AM CDT [facility] Potassium 4.4 3.4 - 5.3 mmol/L 09/14/2022 6:18 AM CDT [facility] Chloride 93(L) 98 - 107 mmol/L 09/14/2022 6:18 AM [facility]T [facility] Carbon Dioxide (CO2) 18(L) 22 - 29 mmol/L 09/14/2022 6:18 AM CDT [facility] Anion Gap 26(H) 7 - 15 mmol/L 09/14/2022 6:18 AM CDT [facility] Urea Nitrogen 48.0(H) 6.0 - 20.0 mg/dL 09/14/2022 6:18 AM CDT [facility] Creatinine 14.96(H) 0.67 - 1.17 mg/dL 09/14/2022 6:18 AM CDT [facility] Calcium 9.8 8.6 - 10.0 mg/dL 09/14/2022 6:18 AM CDT [facility] Glucose 111(H) 70 - 99 mg/dL 09/14/2022 6:18 AM CDT [facility] Alkaline Phosphatase 40 40 - 129 U/L 09/14/2022 6:18 AM CDT [facility] AST 22 10 - 50 U/L 09/14/2022 6:18 AM CDT [facility] ALT 14 10 - 50 U/L 09/14/2022 6:18 AM CDT [facility] Protein Total 7.1 6.4 - 8.3 g/dL 09/14/2022 6:18 AM CDT [facility] Albumin 4.7 3.5 - 5.2 g/dL 09/14/2022 6:18 AM CDT [facility] Bilirubin Total 0.2 <=1.2 mg/dL 09/14/2022 6:18 AM CDT [facility] GFR Estimate 4(L) >60 mL/min/1. 73m2 09/14/2022 6:18 AM CDT [facility] Comment:eGFR calculated usin 2020 CKD-EPI equation. Blood BLOOD SPECIMEN / Unknown Venipuncture / Unknown 09/14/2022 5:48 AM CDT 09/14/2022 5:53 AM CDT Senthil Stevenson MD LAB - BLOOD ORDERABL [facility] [address] [facility] Lab (1st floor, no room number) [place] [address], [facility] [phone] documented in this encounter Visit Diagnoses Diagnosis ESRD on hemodialysis (H) End stage renal disease Essential hypertension Unspecified essential hypertension Abdominal pain, generalized Otalgia, bilateral documented in this encounter Administered Medications Inactive Administered Medications - up to 3 most recent administrations Medication Order MAR Action Action Date Dose Rate Site amLODIPine (NORVASC) tablet 10 mg 10 mg, Oral, ONCE, On 09/14/22 at 0655, For 1 dose $Given 09/14/2022 7:09 AM CDT 10 mg hydrALAZINE (APRESOLINE) injection 10 mg 10 mg, Intravenous, ONCE, Administer over 1 Minutes, On 09/14/22 at 0530, For 1 dose $Given 09/14/2022 5:46 AM CDT 10 mg HYDROmorphone (PF) (DILAUDID) injection 0.5 mg 0.5 mg, Intravenous, EVERY 1 HOUR PRN, moderate pain, severe pain, Starting on 09/14/22 at 0525, For 2 doses, Notify the provider to assess for uncontrolled pain or analgesic side effects. Hold while on IV CHAIN PULLER or with regular IV opioid dosing. $Given 09/14/2022 7:08 AM CDT 0.5 mg $Given 09/14/2022 5:51 AM CDT 0.5 mg labetalol (NORMODYNE) tablet 300 mg 300 mg, Oral, ONCE, On 09/14/22 at 0730, For 1 dose $Given 09/14/2022 8:57 AM CDT 300 mg lisinopril (ZESTRIL) tablet 20 mg 20 mg, Oral, ONCE, On 09/14/22 at 0655, For 1 dose $Given 09/14/2022 7:09 AM CDT 20 mg ondansetron (ZOFRAN) injection 4 mg 4 mg, Intravenous, ONCE PRN, nausea, vomiting, Administer over 2-5 Minutes, Starting on 09/14/22 at 0525, For 1 dose, Irritant. $Given 09/14/2022 5:45 AM CDT 4 mg documented in this encounter Active and Recently Administered Medications Times are shown in CDT. Scheduled Medication Order 09/12/2022 09/13/2022 09/14/2022 amLODIPine (NORVASC) tablet 10 mg (COMPLETED) 10 mg, Oral, ONCE, On 09/14/22 at 0655, For 1 dose 0709 ($Given - Provi krystina: Sherlyn Shepard RN) hydrALAZINE (APRESOLINE) injection 10 mg (COMPLETED) 10 mg, Intravenous, ONCE, Administer over 1 Minutes, On 09/14/22 at 0530, For 1 dose 0546 ($Given - Provi krystina: Alexia Wilkinson RN) labetalol (NORMODYNE) tablet 300 mg (COMPLETED) 300 mg, Oral, ONCE, On 09/14/22 at 0730, For 1 dose 0857 ($Given - Provi krystina: Sherlyn Shepard RN) lisinopril (ZESTRIL) tablet 20 mg (COMPLETED) 20 mg, Oral, ONCE, On 09/14/22 at 0655, For 1 dose 0709 ($Given - Provi krystina: Sherlyn Shepard RN) PRN Medication Order 09/12/2022 09/13/2022 09/14/2022 HYDROmorphone (PF) (DILAUDID) injection 0.5 mg (COMPLETED) 0.5 mg, Intravenous, EVERY 1 HOUR PRN, moderate pain, severe pain, Starting on 09/14/22 at 0525, For 2 doses, Notify the provider to assess for uncontrolled pain or analgesic side effects. Hold while on IV CHAIN PULLER or with regular IV opioid dosing. 0551 ($Given - Provi krystina: Alexia Wilkinson RN)0708 ($Given - Provider: Sherlyn Shepard RN) ondansetron (ZOFRAN) injection 4 mg (COMPLETED) 4 mg, Intravenous, ONCE PRN, nausea, vomiting, Administer over 2-5 Minutes, Starting on 09/14/22 at 0525, For 1 dose, Irritant. 0545 ($Given - Provi krystina: Alexia Wilkinson RN) documented in this encounter Care Teams Boilerhouse Mechanic Relationship Specialty Start Date End Date No Ref-Primary, Physician PCP - General 04/14/22 documented as of this encounter
--- OUTSIDE RECORDS SUMMARY | 2023-05-08 16:21 | XMS_ITS | Encounter Summary ---
Author Name Unknown Organization [place] Address [address] [place] [address] Care Team Providers Care Waterside Worker Name Role Phone No Ref-Primary, Physician Primary Care Provider Encounter Details Date Type Department Care Team (Latest Contact Info) Description 07/03/2022 Travel Social History Tobacco Use Types Packs/Day Years [...] Coronavirus/COVID-19? 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
--- OUTSIDE RECORDS SUMMARY | 2023-05-08 16:21 | XMS_ITS | Referral Summary ---
Author Name Unknown Organization [place] Address [address] [place] [id number] Care Team Providers Care Plater Helper Name Role Phone No Ref-Primary, Physician Primary Care Provider Allergies Active Allergy Reactions Criticality Noted Date Comments Coconut (Cocos Nucifera) Hives Low 06/24/2022 Diphenhydramine Anxiety,Other (See Comments) High 03/20/2022 Pt reported seizure after having IV benadryl Hydrocodone High 03/20/2022 Other reaction(s): Seizures Morphine Anaphylaxis High 03/20/2022 Nsaids Other (See Comments) 03/20/2022 Medications Medication Sig Dispensed Refills Start Date End Date Status lisinopril (ZESTRIL) 20 MG tabletIndications:Juvencio gn essential hypertension Take 1 tablet (20 mg) by mouth daily 30 tablet 1 05/30/2022 Active amLODIPine (NORVASC) 10 MG tabletIndications:Juvencio gn essential hypertension Take 1 tablet (10 mg) by mouth daily 30 tablet 1 05/29/2022 Active hydrALAZINE (APRESOLINE) 50 MG tabletIndications:Juvencio gn essential hypertension Take 1 tablet (50 mg) by mouth 2 times daily 60 tablet 1 05/29/2022 Active minoxidil (LONITEN) 2.5 MG tabletIndications:Juvencio gn essential hypertension Take 1 tablet (2.5 mg) by mouth daily 30 tablet 1 05/29/2022 Active Active Problems Problem Noted Date Diagnosed Date Elevated troponin 07/03/2022 Hypertensive urgency 07/03/2022 Chest pain, unspecified type 07/03/2022 Hyperkalemia 05/27/2022 Jaw pain 05/27/2022 Spell of altered consciousness 05/27/2022 Headache 05/27/2022 Social History Tobacco Use Types Packs/Day Years Used Date Smoking Tobacco: Never Assessed Adolescent Education Answer Date Record ed Getting School Help Needed Not on file 01/18 Sex and Gender Information Value Date Recorded Sex Assigned at Not on file Gender Identity Not on file Sexual Orientation Not on file Last Filed Vital Signs Vital Sign Reading [...] Mass Index 25.75 09/14/2022 8:58 AM CDT Plan of Treatment Not on file Advance Directives For more information, please contact: [phone] Latest Code Status on File Code Status Date Activated Date Inactivated Comments Full Code 07/03/2022 10:27 AM 07/04/2022 8:35 PM All ba sic and advanced life-sustaining interventions are performed as appropriate Question Answer Comments Code status determined by: Discussion with patient/ legal decision maker Code Status History Code Status Date Activated Date Inactivated Comments Full Code 05/29/2022 9:22 AM 07/03/2022 5:31 AM Question Answer Comments Code status determined by: Discussion with patient/ legal decision maker Full Code 05/27/2022 8:24 PM 05/29/2022 9:22 AM All ba sic and advanced life-sustaining interventions are performed as appropriate Question Answer Comments Code status determined by: Discussion with patient/ legal decision maker Care Teams Plater Helper Relationship Specialty Start Date End Date No Ref-Primary, Physician PCP - General 04/14/22
--- OUTSIDE RECORDS SUMMARY | 2023-05-08 16:21 | XMS_ITS | Encounter Summary ---
Author Name Unknown Organization [place] Address [address] [place] [address] Care Team Providers Care Gear Design Engineer Name Role Phone No Ref-Primary, Physician Primary Care Provider Encounter Details Date Type Department Care Team (Latest Contact Info) Description 09/14/2022 Travel Social History Tobacco Use Types Packs/Day [...] AM CDT documented as of this encounter Plan of Treatment Not on file documented as of this encounter Visit Diagnoses Not on filedocumented in this encounter Care Teams Gear Design Engineer Relationship Specialty Start Date End Date No Ref-Primary, Physician PCP - General 04/14/22 documented as of this encounter
--- OUTSIDE RECORDS SUMMARY | 2023-05-08 16:21 | XMS_ITS | Clinical Summary ---
Author Name Unknown Organization [place] Address [address] [place] [id number] Care Team Providers Care Budget Engineer Name Role Phone No Ref-Primary, Physician [...] 09/14/2022 8:58 AM CDT Plan of Treatment Health Maintenance Due Date Last Done Comments ADVANCE CARE PLANNING 1987 ANNUAL REVIEW OF HM ORDERS 1987 COVID-19 Vaccine (#1) 02/17/1988 Pneumococcal Vaccine: Pediat rics (0 to 5 Years) and At-Risk Patients (6 to 64 Years) (1 of 2 - PCV) 08/17/1993 HIV SCREENING 08/17/2002 HEPATITIS C SCREENING 08/17/2005 MEDICARE ANNUAL WELLNESS VISIT 08/17/2005 HEPATITIS B IMMUNIZATION (1 of 3 - Risk Dialysis 4-dose series) 2007 DTAP/TDAP/TD IMMUNIZATION (1 - Tdap) 08/17/2012 LIPID 08/17/2022 INFLUENZA VACCINE (#1) 2022 PHQ-2 (once per calendar year) 2023 HPV IMMUNIZATION Aged Out No longer e ligible based on patient's age to complete this topic IPV IMMUNIZATION Aged Out No longer e ligible based on patient's age to complete this topic MENINGITIS IMMUNIZATION Aged Out No l onger eligible based on patient's age to complete this topic RSV MONOCLONAL ANTIBODY Aged Out No l onger eligible based on patient's age to complete this topic Advance Directives For more information, please contact: [phone] Latest Code Status on File Code Status [...] with patient/ legal decision maker Care Teams Budget Engineer Relationship Specialty Start Date End Date No Ref-Primary, Physician PCP - General 04/14/22
--- OUTSIDE RECORDS SUMMARY | 2023-05-08 16:22 | XMS_ITS | Clinical Summary ---
Author Name Unknown Organization [facility] Address [address] [place] [address] Care Team Providers Care Computer Technical Support Specialist Name Role Phone Elsewhere, Pcp Primary Care Provider Unavailabl e Source Comments Patient records contain information from all sites at [facility]. For routine questions regarding patient records, call [phone] during business hours, M-F 8:00 AM - 5:00 PM Central Time. Record requests for emergency care only can be directed to [phone] at any time.[facility] Allergies Active Allergy Reactions Criticality Noted Date Comments Adhesive Rash 11/06/2022 Diphenhydramine Hcl GI intolerance,Seizure 0405/2022 Clonidine Rash Medium 12/10/2022 Coconut Oil Hives (Reselect Reaction) Low 10/16/2022 Hydrocodone GI intolerance,Seizure 07/28/2022 Ibuprofen Other (see comments),Renal Failure High 03/20/2022 Morphine GI intolerance,Seizure 07/28/2022 Nsaids (Non-Steroidal Anti-Inflammatory Drug) Other (see comments) 07/28/2022 Medications Medication Sig Dispensed Refills Start Date End Date Status calcium acetate,phosphat bind, (ELIPHOS) 667 mg (169 mg calcium) tablet Take 1,334 mg by mouth 3 (three) times a day with meals. 0 Active torsemide (DEMADEX) 100 mg tablet Take 1 tablet (100 mg total) by mouth 2 (two) times a day. 180 tablet 3 01/17/2023 4 Active sertraline (ZOLOFT) 50 mg tablet Take 1 tablet (50 mg total) by mouth daily. 90 tablet 3 01/27/2023 4 Active cyanocobalamin (vitamin B-12) 1,000 mcg tablet Take 1 tablet (1,000 mcg total) by mouth daily. F/u with PCP for additional refills. 30 tablet 0 02/07/2023 Active albuterol 90 mcg/actuation inhaler Inhale 2 puffs every 6 (six) hours as needed for wheezing or shortness of breath (or cough). 8 g 11 02/11/2023 Active multivitamin renal failure (DIALYVITE) 100-1 mg tablet Take 1 tablet by mouth daily with dinner. 90 tablet 3 02/24/2023 4 Active prochlorperazine (COMPAZINE) 5 mg tablet Take 1 tablet (5 mg total) by mouth every 6 (six) hours as needed for nausea or vomiting. 30 tablet 0 03/18/2023 Active irbesartan (AVAPRO) 300 mg tablet Take 1 tablet (300 mg total) by mouth daily. 90 tablet 3 03/25/2023 4 Active amLODIPine (NORVASC) 10 mg tablet Take 1 tablet (10 mg total) by mouth daily. 90 tablet 3 04/01/2023 4 Active hydrALAZINE (APRESOLINE) 50 mg tablet Take 1 tablet (50 mg total) by mouth every 8 (eight) hours. 270 tablet 3 04/08/2023 4 Active isosorbide mononitrate (IMDUR) 30 mg 24 hr tablet Take 1 tablet (30 mg total) by mouth every evening. 90 tablet 3 04/08/2023 4 Active traZODone (DESYREL) 50 mg tablet Take 1 tablet (50 mg total) by mouth at bedtime. 30 tablet 11 04/15/2023 4 Active traZODone (DESYREL) 50 mg tablet Take 1 tablet (50 mg total) by mouth at bedtime. 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 10/20/2022 Anemia 10/20/2022 Cough Unspecified Type 10/20/2022 Other Specified Soft Tissue Disorders 10/20/2022 Pain Chest Atypical 10/08/2022 Failure Renal End Stage 07/30/2022 Other Specified Abnormalities Of Plasma Proteins 07/03/2022 Transient Alteration Of Awareness 05/27/2022 Hyperkalemia 05/27/2022 Headache Unspecified 05/27/2022 Resolved Problems Problem Noted Date Diagnosed Date Resolved Date Pain Chest 10/19/2022 10/20/2022 Excess Fluid Volume 07/28/2022 10/21/19 23 Encounters Date Type Department Care Team Description 04/15/2023 Orders Only Division of Nephrology and Hypertension in [place], [place] [address] [place] [address] Concetta Mejía M.D., Ph.D. 04/08/2023 Orders Only Division of Nephrology and Hypertension, [facility], in [place], [place] [address] [place] [address] Drew Mo APRN, C.N.P., M.S.N. 04/02/2023 Orders Only Pharmacy Prior Auth RO [phone] Marko Hager 04/01/2023 Orders Only Division of Nephrology and Hypertension, [facility], in [place], [place] [address] [place] [address] Drew Mo APRN, C.N.P., M.S.N. 03/25/2023 Orders Only Division of Nephrology and Hypertension in [place], [place] [address] [place] [address] Garth Burdick Jr., D.O. 03/18/2023 Orders Only Division of Nephrology and Hypertension, [facility], in [place], [place] [address] [place] [address] Drew Mo APRN, C.N.P., M.S.N. 03/04/2023 Orders Only Division of Nephrology and Hypertension, [facility], in [place], [place] [address] [place] [address] Drew Mo APRN, C.N.P., M.S.N. 02/24/2023 Orders Only Division of Nephrology and Hypertension, [facility], in [place], [place] [address] [place] [address] Drew Mo APRN, C.NRashida., M.S.N. 02/19/2023 Orders Only Division of Nephrology and Hypertension, [facility], in [place], [place] [address] [place] [address] Drew Mo APRN, C.NRashida., M.S.N. 02/11/2023 Orders Only Division of Nephrology and Hypertension in [place], [place] [address] [place] [address] Concetta Mejía M.D., Ph.D. 02/04/2023 11:19 PM CDT - 02/07/2023 2:40 PM CDT Hospital Encounter [facility], , Eighth Floor [address] [place] [address] Renay Hernandez M.D. Beiermann, Elizabeth W, M.D. Abdominal Pain (Primary Dx); Cyst Renal; Hemodialysis Status (HCC); Hyperkalemia Discharge Disposition: Home or Self Care from Last 3 Months Immunizations Name Administration Dates Next Due HepB Adult 09/02/2017 Influenza (IM) Preservative Free 01/31/2020,01/26,02/03/2018 Influenza, Unspecified 02/06/2021,01/31/2020, PCV13 06/12/2020 PPD Test 11/27/2021, 2,11/20/2021,2020,08/11/2019,08/11/2018,08/26/2017 Pneumococcal Conjugate(PCV), Unspecified 09/02/2017 SARS-COV-2 (COVID-19) - MODERNA 03/28/2021,02/26 Social History Tobacco Use Types Packs/Day Years Used Date Smoking Tobacco: Never Passive Smoke Exposure: Never Smokeless Tobacco: Never Alcohol Use Standard Drinks/Week Comments Never 0 (1 standard drink = 0.6 oz pur e alcohol) Humiliation, Afraid, Rape, and Kick questionnair e Answer Date Recorded Within the last year, have y ou been afraid of your partner or ex-partner? No 11/14/2022 Within the last year, have y ou been humiliated or emotionally abused in other ways by your partner or ex-partner? No Within the last year, have y ou been kicked, hit, slapped, or otherwise physically hurt by your partner or ex-partner? No 11/14/2022 Within the last year, have y ou been raped or forced to have any kind of sexual activity by your partner or ex-partner? No 11/14/2022 Overall Financial Resource Strain (CARDIA) Answe r Date Recorded How hard is it for you to pa y for the very basics like food, housing, medical care, and heating? Somewhat hard 11/14/2022 Exercise Vital Sign Answer Date Recorde d On average, how many days pe r week do you engage in moderate to strenuous exercise (like a brisk walk)? 2 days 11/02/2022 On average, how many minutes do you engage in exercise at this level? 10 min 11/02/2022 Hunger Vital Sign Answer Date Recorded Within the past 12 months, y ou worried that your food would run out before you got the money to buy more. Sometimes true Within the past 12 months, t he food you bought just didn't last and you didn't have money to get more. Sometimes true PRAPARE - Transportation Answer Date Re corded In the past 12 months, has l ack of transportation kept you from medical appointments or from getting medications? Yes 10/27 In the past 12 months, has l ack of transportation kept you from meetings, work, or from getting things needed for daily living? Yes 11/14/2022 Nutrition Answer Date Recorded Nutrition: EVOO Fat Source Unknown 11/02 On average, how many serving s of fruits and vegetables do you eat per day (serving size is equal to 1 cup or approximately the size of a tennis ball)? 0-2 11/02/2022 Dental Answer Date Recorded Dental: Regular Dentist Unknown 03/22/20 Employment Answer Date Recorded Employment status Temporarily disabled Housing Stability Answer Date Recorded What is your living situation today? I have a [facility] place to live 11/14/2022 Sex and Gender Information Value Date Recorded Sex Assigned at Male 11/14/2022 11:03 AM CDT Gender Identity Male 11/14/2022 11:03 AM CDT Sexual Orientation Straight 11/14/2022 11 :03 AM CDT Last Filed Vital Signs Vital Sign Reading Time Taken Comments Blood Pressure 171/93 02/07/2023 10:45 AM CDT Pulse 71 02/07/2023 8:01 AM CDT Temperature 36.8 ??C (98.2 ??F) 02/07/2023 8:01 AM CD T Respiratory Rate 18 02/07/2023 8:01 AM CDT Oxygen Saturation 100% 02/06/2023 8:11 PM CDT Inhaled Oxygen Concentration - - Weight 62 kg (136 lb 11 oz) 11/21/2022 12:56 PM CDT Height 166.2 cm (5' 5.43) 02/05/2023 3:30 AM CD T Body Mass Index 22.45 11/21/2022 12:56 PM CDT Plan of Treatment Health Maintenance Due Date Last Done Comments HIV Screening 1987 Lipid (Cholesterol) Screening 1987 DTaP,Tdap,and Td Vaccines (1 - Tdap) 08/17/2006 Zoster Vaccines (1 of 2) 08/17/2006 Hepatitis B Vaccines (2 of 3 - 19+ 3-dose series) 09/30/2017 09/02/2017 Pneumococcal vaccine (0-64 years) (2 of 2 - PPSV23 or PCV20) 08/07/2020 06/12/2020, 09/02/2017 COVID-19 Vaccine (3 - 2022-24 season) 2022 03/28/2021, 02/26/2021 Influenza Vaccine (#1) 2023 , 01/31/2020, 01/31/2020, Additional history exists Office Visit for Blood Pressure Check / Re-check 02/06/2023 11/06/2022 Depression Screening (Annual PHQ-2) 04/28/2023 Creatinine Level (Kidney Function Test) 02/08/2024 02/07/2023, 02/06/2023, 02/05/2023, Additional history exists Potassium Level 02/08/2024 02/07/2023, 01/26, 02/05/2023, Additional history exists Sodium Level 02/08/2024 02/07/2023, 01/26, 02/05/2023, Additional history exists HPV Vaccines Aged Out No longer eligi ble based on patient's age to complete this topic Medical Devices Implanted Type Area Revenue Enforcement Collection Agent Device Identifier Shelf Expiration Date Model / Serial / Lot Vascular Graft Vascular Graft Left: Arm Procedures Procedure Name Priority Date/Time Associated Diagnosis Comments HEMOGLOBIN, B Timed 02/07/2023 11:02 AM CDT BASIC METABOLIC PANEL, S/P Routine 02/07/2023 7:46 AM CDT CBC WITH DIFFERENTIAL, B Routine 02/07/2023 7:46 AM CDT HEMOGLOBIN, B Timed 02/06/2023 4:59 PM CDT TRANSFUSE RED BLOOD CELLS Routine 02/06/2023 10:45 AM CDT PREPARE RED BLOOD CELLS Routine 02/06/2023 9:37 AM CDT TYPE AND SCREEN Routine 02/06/2023 9:37 AM CDT LACTATE DEHYDROGENASE (LD), S STAT 02/06/2023 9:37 AM CDT LACTATE, B/P STAT 02/06/2023 9:37 AM CDT GLUCOSE POCT, B Routine 02/06/2023 8:04 AM CDT SPSMA RESULT Routine 02/06/2023 7:40 AM CDT HEMOGLOBIN A1C, B Routine 02/06/2023 7:4 0 AM CDT FOLATE, S Routine 02/06/2023 7:40 AM CDT SOLUBLE TRANSFERRIN RECEPTOR (STFR), S Routine 02/06/2023 7:40 AM CDT FERRITIN, S Routine 02/06/2023 7:40 AM CDT IRON AND TOT IRON-BINDING CAPACITY, S/P Routine 02/06/2023 7:40 AM CDT HEPATIC FUNCTION PANEL, S Routine 02/06/2023 7:40 AM CDT MAGNESIUM, S Timed 02/06/2023 7:40 AM CDT CBC WITH DIFFERENTIAL, B Timed 02/06/2023 7:40 AM CDT RENAL FUNCTION PANEL, S Timed 02/06/2023 7:40 AM CDT PHOSPHORUS (INORGANIC), S STAT 02/06/2023 7:40 AM CDT MAGNESIUM, S STAT 02/06/2023 7:40 AM CDT ECG STAT 02/05/2023 7:57 PM CDT CBC WITH DIFFERENTIAL, B STAT 02/05/2023 6:53 PM CDT ECG Routine 02/05/2023 4:42 PM CDT HEMODIALYSIS Routine 02/05/2023 3:23 PM CDT ECG STAT 02/05/2023 2:14 PM CDT SPSMA RESULT Routine 02/05/2023 9:58 AM CDT METHYLMALONIC ACID (MMA), CHRISTOPHER, S Routine 02/05/2023 9:58 AM CDT CBC WITH DIFFERENTIAL, B STAT 02/05/2023 9:58 AM CDT BASIC METABOLIC PANEL, S/P STAT 02/05/2023 9:58 AM CDT FOLATE, S Routine 02/05/2023 9:58 AM CDT VITAMIN B12 ASSAY, S Routine 02/05/2023 9:58 AM CDT RETICULOCYTE PROFILE, B Routine 02/05/2023 9:58 AM CDT FERRITIN, S Routine 02/05/2023 9:58 AM CDT IRON AND TOT IRON-BINDING CAPACITY, S/P Routine 02/05/2023 9:58 AM CDT PHOSPHORUS (INORGANIC), S Routine 02/05/2023 9:58 AM CDT MAGNESIUM, S STAT 02/05/2023 9:58 AM CDT HEMODIALYSIS Routine 02/05/2023 7:[address] ABDOMEN PELVIS ANGIOGRAM WITH IV CONTRAST RAD - Semiurgent (Fast; most ED patients; some inpatients) 02/05/2023 2:[address] ABDOMEN PELVIS WITHOUT IV CONTRAST RAD - Semiurgent (Fast; most ED patients; some inpatients) 02/05/2023 1:[address] HEAD WITHOUT IV CONTRAST RAD - Semiurgent (Fast; most ED patients; some inpatients) 02/05/2023 1:13 AM CDT MICROSCOPIC MANUAL STAT 02/05/2023 12 :47 AM CDT DIPSTICK, U STAT 02/05/2023 12:47 AM CDT PH, U STAT 02/05/2023 12:47 AM CDT OSMOLALITY, U STAT 02/05/2023 12:47 AM CDT URINALYSIS WITH MICROSCOPIC STAT 02/05/2023 12:47 AM CDT BACTERIAL CULTURE, AEROBIC + SUSC, URINE STAT 02/05/2023 12:47 AM CDT from Last 3 Months Results * (ABNORMAL) Hemoglobin (02/07/2023 11:02 AM CDT) Only the most recent of2 resultswithin the time period is included. Pathologist [facility] Hemoglobin 8.2(L) 13.2 - 16.6 g/dL 02/07/2023 11:51 AM CDT DTL Blood (Blood, Venous) 02/07/2023 11:02 AM CDT 02/07/2023 11:42 AM CDT Elvira Sanchez APRN, C.N.P., D.N .P. LAB BLOOD ADD-ON [facility] [address] [place] [address], [facility] [address] [place] [address] * (ABNORMAL) CBC with Differential, Blood (02/07/2023 7:46 AM CDT) Only the most recent of4 resultswithin the time period is included. Pathologist [facility] Hemoglobin 7.8(L) 13.2 - 16.6 g/dL 02/07/2023 8:43 AM CDT DTL Hematocrit 22.9(L) 38.3 - 48.6 % 02/07/2023 8:43 AM CDT DTL Erythrocytes 2.73(L) 4.35 - 5.65 x10(12)/L 02/07/2023 8:43 AM CDT DTL MCV 83.9 78.2 - 97.9 fL 02/07/2023 8:43 AM CDT DTL RBC Distrib Width 15.5(H) 11.8 - 14.5 % 02/07/2023 8:43 AM CDT DTL Platelet Count 243 135 - 317 x10(9)/L 02/07/2023 8:43 AM CDT DTL Leukocytes 7.2 3.4 - 9.6 x10(9)/L 02/07/2023 8:43 AM CDT DTL Neutrophils 3.65 1.56 - 6.45 x10(9)/L 02/07/2023 8:43 AM CDT DHPM Lymphocytes 1.88 0.95 - 3.07 x10(9)/L 02/07/2023 8:43 AM CDT DTL Monocytes 0.89(H) 0.26 - 0.81 x10(9)/L 02/07/2023 8:43 AM CDT DTL Eosinophils 0.78(H) 0.03 - 0.48 x10(9)/L 02/07/2023 8:43 AM CDT DTL Basophils 0.04 0.01 - 0.08 x10(9)/L 02/07/2023 8:43 AM CDT DTL Blood (Blood, Venous) 02/07/2023 7:46 AM CDT 02/07/2023 8:25 AM CDT Elvira Sanchez APRN, C.N.P., D.N .P. LAB BLOOD ADD-ON [facility] [address] [place] [address], [facility] DTL [facility] [address] [place], [place] [id number] [place] [address] [address] [place] [address] * (ABNORMAL) Basic Metabolic Panel (02/07/2023 7:46 AM CDT) Only the most recent of2 resultswithin the time period is included. Potassium, S 4.3 3.6 - 5.2 mmol/L 02/07/2023 8:58 AM CDT DTL Sodium, S 139 135 - 145 mmol/L 02/07/2023 8:58 AM CDT DTL Chloride, S 100 98 - 107 mmol/L 02/07/2023 8:58 AM CDT DTL Bicarbonate, S 27 22 - 29 mmol/L 02/07/2023 8:58 AM CDT DTL Anion Gap 12 7 - 15 02/07/2023 8:58 AM CDT DTL BUN (Blood Urea Nitrogen), S 31(H) 8 - 24 mg/dL 02/07/2023 8:58 AM CDT DTL Creatinine 11.29(H) 0.74 - 1.35 mg/dL 02/07/2023 8:58 AM CDT DTL Estimated GFR (eGFR) <15(L) >=60 mL/min/BSA 02/07/2023 8:58 AM CDT DTL Comment: Estimated GFR calculated using the 2020 CKD_EPI creatinine equation. Calcium, Total, S 9.3 8.6 - 10.0 mg/dL 02/07/2023 8:58 AM CDT DTL Glucose, S 81 70 - 140 mg/dL 02/07/2023 8:58 AM CDT DTL Blood (Blood, Venous) 02/07/2023 7:46 AM CDT 02/07/2023 8:40 AM CDT Elvira Sanchez APRN, C.N.P., D.N .P. LAB BLOOD ADD-ON [facility] [address] [place] [address], [facility] [address] [place] [address] * Transfuse Red Blood Cells : (02/06/2023 1:13 PM CDT) Elvira Sanchez APRN, C.N.P., D.N .P. BLOOD TRANSFUSION ORDERABLES * Type and Screen (with Reflex Antibody ID) (02/06/2023 9:37 AM CDT) Pathologist [facility] ABORh O Pos Not applicable 02/06/2023 10:06 AM CDT STRM Antibody Screen Negative Negative 02/06/2023 10:21 AM CDT STRM Type & Screen Expiration 02/09/2023 23:59 02/06/2023 10:06 AM CDT STRM Testing Location [place] DEFAULT 02/06/2023 9:42 AM CDT STRM Blood (Blood, Venous) 02/06/2023 9:37 AM CDT 02/06/2023 9:42 AM CDT Antonieta Eckert APRN.N.P., D.N .P. LAB BLOOD BANK TEST ORDERABLES [facility] [address] [place] [address], [facility] STRM [facility] [address] [place] [address] * LD (Lactate Dehydrogenase) (02/06/2023 9:37 AM CDT) [facility] LD 164 122 - 222 U/L 02/06/2023 10:32 AM CDT DT Blood (Blood, Venous) 02/06/2023 9:37 AM CDT 02/06/2023 10:15 AM CDT Antonieta Eckert APRN.N.P., D.N .P. LAB BLOOD NON ADD-ON Performing Organization Address City/[facility]/ZIP Co de Phone Number [facility] [address] [place] [address], [facility] DTL [facility] [address] [place] [address] * Lactate (02/06/2023 9:37 AM CDT) [facility] Lactate, P 0.6 0.5 - 2.2 mmol/L 02/06/2023 9:52 AM CDT STMA Blood (Blood, Venous) 02/06/2023 9:37 AM CDT 02/06/2023 9:41 AM CDT Mikey Orta M.D. LAB BLOOD NON ADD -ON [facility] [address] [place] [address], [facility] STMA [facility] [address] [place] [address] * Glucose, POCT (02/06/2023 8:04 AM CDT) Glucose, POCT, B 119 70 - 140 mg/dL 02/06/2023 8:06 AM CDT PCLX Site Capillary 02/06/2023 8:06 AM CDT PCLX Blood 02/06/2023 8:04 AM CDT 02/06/2023 8:06 AM CDT Unknown Provider LAB POCT ORDERABLES- MANUAL POC [facility] [address] [place] [address], [facility] PCLX [facility] POC [address] [place] [address] * (ABNORMAL) Renal Function Panel (02/06/2023 7:40 AM CDT) Potassium, S 4.0 3.6 - 5.2 mmol/L 02/06/2023 8:49 AM CDT DTL Sodium, S 138 135 - 145 mmol/L 02/06/2023 8:49 AM CDT DTL Chloride, S 98 98 - 107 mmol/L 02/06/2023 8:49 AM CDT DTL Bicarbonate, S 23 22 - 29 mmol/L 02/06/2023 8:49 AM CDT DTL Anion Gap 17(H) 7 - 15 02/06/2023 8:49 AM CDT DTL BUN (Blood Urea Nitrogen), S 44(H) 8 - 24 mg/dL 02/06/2023 8:49 AM CDT DTL Creatinine 14.72(H) 0.74 - 1.35 mg/dL 02/06/2023 8:49 AM CDT DTL Estimated GFR (eGFR) <15(L) >=60 mL/min/BSA 02/06/2023 8:49 AM CDT DTL Comment: Estimated GFR calculated using the 2020 CKD_EPI creatinine equation. Calcium, Total, S 9.0 8.6 - 10.0 mg/dL 02/06/2023 8:49 AM CDT DTL Glucose, S 97 70 - 140 mg/dL 02/06/2023 8:49 AM CDT DTL Albumin, S 3.9 3.5 - 5.0 g/dL 02/06/2023 8:49 AM CDT DTL Phosphorus (Inorganic), S 6.0(H) 2.5 - 4.5 mg/dL 02/06/2023 8:49 AM CDT DTL Blood (Blood, Venous) 02/06/2023 7:40 AM CDT 02/06/2023 8:24 AM CDT Elvira Sanchez APRN, C.N.P., D.N .P. LAB BLOOD ADD-ON [facility] [address] [place] [address], [facility] [address] [address] * (ABNORMAL) Hepatic Function Panel (02/06/2023 7:40 AM CDT) Bilirubin, Total, S 0.6 0.0 - 1.2 mg/dL 02/06/2023 9:58 AM CDT DTL Bilirubin, Direct, S <0.2 0.0 - 0.3 mg/dL 02/06/2023 9:58 AM CDT DTL Aspartate Aminotransferase (AST), S 7(L) 8 - 48 U/L 02/06/2023 10:10 AM CDT DTL Alanine Aminotransferase (ALT), S 8 7 - 55 U/L 02/06/2023 9:58 AM CDT DTL Alkaline Phosphatase, S 41 40 - 129 U/L 02/06/2023 9:58 AM CDT DTL Albumin, S 3.8 3.5 - 5.0 g/dL 02/06/2023 9:58 AM CDT DTL Protein, Total, S 5.7(L) 6.3 - 7.9 g/dL 02/06/2023 9:58 AM CDT DTL Blood (Blood, Venous) 02/06/2023 7:40 AM CDT 02/06/2023 9:10 AM CDT Mikey Orta M.D. LAB BLOOD ADD-ON Performing Organization Address [facility] [place] [address] * (ABNORMAL) Soluble Transferrin Receptor (sTfR) (02/06/2023 7:40 AM CDT) Soluble Transferrin Receptor (sTfR) 1.2(L) 1.8 - 4.6 mg/L 02/06/2023 9:58 AM CDT [facility] Comment: ----ADDITIONAL INFORMATION---- It is reported that Americans may have slightly higher values. Blood (Blood, Venous) 02/06/2023 7:40 AM CDT 02/06/2023 9:10 AM CDT Elvira Sanchez APRN, C.N.P., D.N .P. LAB BLOOD ADD-ON Performing Organization Address [facility] [place] [address] * (ABNORMAL) SPSMA Result (02/06/2023 7:40 AM CDT) Only the most recent of2 resultswithin the time period is included. Neutrophilic Segs and Bands 49(L) 50 - 75 % 02/06/2023 10:25 AM CDT DH[facility] Lymphocytes 42 18 - 42 % 02/06/2023 10:25 AM CDT DHPM Monocytes 5 2 - 11 % 02/06/2023 10:25 AM CDT DHPM Eosinophils 4(H) 1 - 3 % 02/06/2023 10:25 AM CDT DH[facility] Interpretation See Comment 10:25 AM CDT DHPM Comment:Peripheral blood sme ar reviewed: no diagnostic abnormalities are seen. Reviewed by: Tech 02/06/2023 10:25 AM CDT DHPM Blood 02/06/2023 7:40 AM CDT 02/06/2023 9:02 AM CDT Mikey Orta M.D. LAB BLOOD ADD-ON Performing Organization Address City/[facility] Co de Phone Number [facility] [address] [place] [address], [facility] [address] [place] [address] * (ABNORMAL) Iron and Total Iron-Binding Capacity (02/06/2023 7:40 AM CDT) Only the most recent of2 resultswithin the time period is included. Iron 113 50 - 150 mcg/dL 02/06/2023 9:58 AM CDT DTL Total Iron Binding Capacity 142(L) 250 - 400 mcg/dL 02/06/2023 9:58 AM CDT DTL Percent Saturation 80(H) 14 - 50 % 02/06/2023 9:58 AM CDT DTL Blood (Blood, Venous) 02/06/2023 7:40 AM CDT 02/06/2023 9:10 AM CDT Elvira Sanchez APRN C.N.P., D.N .P. LAB BLOOD ADD-ON Performing Organization Address [facility] de Phone Number [facility] [address] [place] [address], [facility] [address] [place] [address] * (ABNORMAL) Phosphorus Inorganic (02/06/2023 7:40 AM CDT) Only the most recent of2 resultswithin the time period is included. Phosphorus (Inorganic), S 5.9(H) 2.5 - 4.5 mg/dL 02/06/2023 8:47 AM CDT DTL Blood (Blood, Venous) 02/06/2023 7:40 AM CDT 02/06/2023 8:26 AM CDT Kanchan Eckert APRNN.PJuan C, D.N .P. LAB BLOOD ADD-ON [facility] [address] [place] [address] * Magnesium (02/06/2023 7:40 AM CDT) Only the most recent of3 resultswithin the time period is included. [facility] Magnesium, S 1.9 1.7 - 2.3 mg/dL 02/06/2023 8:49 AM CDT DT Blood (Blood, Venous) 02/06/2023 7:40 AM CDT 02/06/2023 8:24 AM CDT Kanchan Eckert APRNN.P., D.N .P. LAB BLOOD ADD-ON Performing Organization Address City/[facility]/ZIP Co de Phone Number [facility] [address] [place], [place] [id number] [place] [address] [address] [place] [address] * Hemoglobin A1c (02/06/2023 7:40 AM CDT) [facility] Hemoglobin A1c, B 4.6 4.0 - 5.6 % 02/06/2023 4:41 PM CDT DT Blood (Blood, Venous) 02/06/2023 7:40 AM CDT 02/06/2023 4:23 PM CDT Antonieta Eckert APRN.N.P., D.N .P. LAB BLOOD ADD-ON Performing Organization Address City/[facility]/ZIP Co de Phone Number [facility] [address] [place] [address], [facility] [address] [place] [address] * Folate (02/06/2023 7:40 AM CDT) Only the most recent of2 resultswithin the time period is included. Folate, S 7.3 >=4.0 mcg/L 02/06/2023 10:22 AM CDT DT Blood (Blood, Venous) 02/06/2023 7:40 AM CDT 02/06/2023 9:10 AM CDT Antonieta Eckert APRN.N.P., D.N .P. LAB BLOOD ADD-ON Performing Organization Address City/[facility] Co de Phone Number [facility] [address] [place], [place] [id number] [place] [address] * (ABNORMAL) Ferritin (02/06/2023 7:40 AM CDT) Only the most recent of2 resultswithin the time period is included. Pathologist [facility] Ferritin, S 1226(H) 31 - 409 mcg/L 02/06/2023 9:58 AM CDT DT Blood (Blood, Venous) 02/06/2023 7:40 AM CDT 02/06/2023 9:10 AM CDT Antonieta Eckert APRN.N.P., D.N .P. LAB BLOOD ADD-ON Performing Organization Address [facility] Co de Phone Number [facility] [facility] [address] [place] [address], [facility] [address] [place] [address] * ECG 12 Lead (02/05/2023 7:57 PM CDT) Only the most recent of3 resultswithin the time period is included. Pathologist [facility] Ventricular Rate ECG/Min 89 BPM MUSE AL Interval 142 ms MUSE QRSD Interval 100 ms MUSE QT Interval 410 ms MUSE QTC Interval 498 ms MUSE P [place] 62 degrees MUSE R [place] 57 degrees MUSE T Wave [place] 104 degrees MUSE 02/05/2023 7:57 PM CDT 02/06/2023 8:02 AM CDT Impressions MUSE - 02/06/2023 8:02 AM CDT Sinus rhythm Premature ventricular complexes Minimal voltage criteria for LVH, may be normal variant ST and T wave abnormality, consider lateral ischemia Prolonged QT When compared with ECG of 05-FEB-2023 16:42, Non-specific intra-ventricular conduction delay is no longer present Reviewed by Perfecto Lugo III, CRAT Narrative Procedure Note Abdelrahamn Strickland M.D., Ph.D. - 02/06/2023 IMPRESSION: Sinus rhythm Premature ventricular complexes Minimal voltage criteria for LVH, may be normal variant ST and T wave abnormality, consider lateral ischemia Prolonged QT When compared with ECG of 05-FEB-2023 16:42, Non-specific intra-ventricular conduction delay is no longer present Reviewed by Perfecto Lugo III, CRAT Elvira Sanchez APRN, C.N.P., D.N .P. ECG ORDERABLES MUSE NA * (ABNORMAL) Reticulocyte Profile (02/05/2023 9:58 AM CDT) Reticulocytes, B 1.06 0.60 - 2.71 % 02/05/2023 10:51 AM CDT DTL Absolute Reticulocyte 30.0(L) 30.4 - 110.9 x10(9)/L 02/05/2023 10:51 AM CDT DTL Immature Reticulocyte Fraction 2.4 2.3 - 13.4 % 02/05/2023 10:51 AM CDT DTL Reticulocyte Hemoglobin 31.3 30.0 - 37.6 pg 02/05/2023 10:51 AM CDT DTL Erythrocytes 2.83(L) 4.35 - 5.65 x10(12)/L 02/05/2023 10:51 AM CDT DTL Blood (Blood, Venous) 02/05/2023 9:58 AM CDT 02/05/2023 10:32 AM CDT Xochitl Dewitt M.D. LAB BLOOD ADD -ON Performing Organization Address [facility] de Phone Number [address] [address], [facility] [address] [address] * Methylmalonic Acid (MMA), Quantitative (02/05/2023 9:58 AM CDT) Pathologist [facility] Methylmalonic Acid, QN, S 0.32 <=0.40 nmol/mL 02/07/2023 8:32 AM CDT DT Comment: ----ADDITIONAL INFORMATION---- This test was developed and its performance characteristics determined by [facility] in a manner consistent with CLIA requirements. This test has not been cleared or approved by the U.S. Food and Drug Administration. Blood (Blood, Venous) 02/05/2023 9:58 AM CDT 02/06/2023 7:37 AM CDT Elvira Sanchez APRN C.N.P., D.N .P. LAB BLOOD ADD-ON Performing Organization Address [facility] de Phone Number [facility] [address] [place], [place] [id number] [place] [address] [address] [address] * (ABNORMAL) Vitamin B12 Assay (02/05/2023 9:58 AM CDT) [facility] Vitamin B12 Assay, S 163(L) 180 - 914 ng/L 02/05/2023 1:40 PM CDT DT Comment: ----ADDITIONAL INFORMATION---- In patients being evaluated for vitamin B12 deficiency who have intrinsic factor blocking antibodies (IFBA), false elevations of B12 may occur due to IFBA interference thus potentially obscuring a physiological deficiency of B12. If observed B12 concentrations are discordant with clinical presentation, measurement of methylmalonic acid (MMA) should be considered. Blood (Blood, Venous) 02/05/2023 9:58 AM CDT 02/05/2023 10:49 AM CDT Xochitl Dewitt M.D. LAB BLOOD ADD -ON [facility] [address] [place] [address], [place] DTL [facility] [address] [place] [address] * CT Abdomen Pelvis Angiogram with IV Contrast (02/05/2023 2:28 AM CDT) Anatomical Region Laterality Modality Abdomen, Pelvis, Cardiovascu lar RST LOS, Abdominal ARZ LOS, Vascular Interventional ARZ LOS, Abdominal FLA LOS, Vascular Interventional FLA LOS, Procedural N/A Computed Tomography, Compute d Tomography 02/05/2023 2:28 AM CDT Impressions 02/05/2023 4:26 AM CDT 1. ??Similar wall thickening throughout the small bowel without evidence of bowel ischemia or perforation. Patent mesenteric artery and veins. 2. ??Moderate amount of ascites. 3. ??Unchanged complex cystic mass in the left kidney. Narrative 02/05/2023 4:26 AM CDT EXAM: ??CT ABDOMEN PELVIS ANGIOGRAM WITH IV CONTRAST COMPARISON: ??Multiple prior exams, most recently CT abdomen/pelvis without contrast 02/05/2023 FINDINGS: ??Redemonstrated wall thickening and edema throughout the small bowel. No pneumatosis or portal venous gas. The mucosa is enhancing normally. The mesenteric arteries and veins are widely patent. Similar moderate amount of ascites and mesenteric edema. Normal liver, gallbladder, pancreas, spleen, and adrenal glands. Complex cystic mass in the anterior left kidney with enhancing septations measuring up to 2.5 cm. Scattered simple renal cysts elsewhere. Normal ureters and bladder. Vascular calcifications. Procedure Note Jeremiah Hills M.D. - 02/05/2023 EXAM: CT ABDOMEN PELVIS ANGIOGRAM WITH IV CONTRAST COMPARISON: Multiple prior exams, most recently CT abdomen/pelvis withoutcontrast 02/05/2023 FINDINGS: Redemonstrated wall thickening and edema throughout the smallbowel. No pneumatosis or portal venous gas. The mucosa is enhancing normally. The mesentericarteries and veins are widely patent. Similar moderate amount of ascites and mesenteric edema. Normal liver, gallbladder, pancreas, spleen, and adrenal glands. Complexcystic mass in the anterior left kidney with enhancing septations measuring up to 2.5 cm. Scatteredsimple renal cysts elsewhere. Normal ureters and bladder. Vascular calcifications. IMPRESSION: 1. Similar wall thickening throughout the small bowel without evidence ofbowel ischemia or perforation. Patent mesenteric artery and veins. 2. Moderate amount of ascites. 3. Unchanged complex cystic mass in the left kidney. Candi Hanson APRN, C.N.P., D.N.P. IMG CT PROCEDURES * CT Head without IV Contrast (02/05/2023 1:13 AM CDT) Anatomical Region Laterality Modality Head, Neuroradiology RST LOS , Neuroradiology ARZ LOS, Neuroradiology FLA LOS N/A Computed Tomography, Compute d Tomography 02/05/2023 1:07 AM CDT Impressions 02/05/2023 7:21 AM CDT No acute intracranial findings. Narrative 02/05/2023 7:21 AM CDT EXAM: CT HEAD WITHOUT IV CONTRAST COMPARISON: CT head October 29, 2022 FINDINGS: No evidence of acute infarction, intracranial hemorrhage or extra- axial fluid collection. Moderate leukoaraiosis. The paranasal sinuses and hypoplastic mastoid air cells are clear. Procedure Note Senthil Multani M.D. - 02/05/2023 EXAM: CT HEAD WITHOUT IV CONTRAST COMPARISON: CT head October 29, 2022 FINDINGS: No evidence of acute infarction, intracranial hemorrhage orextra-axial fluid collection. Moderate leukoaraiosis. The paranasal sinuses and hypoplastic mastoid aircells are clear. IMPRESSION: No acute intracranial findings. Renay Bolton M.D. IMG CT AL OCEDURES * CT Abdomen Pelvis without IV Contrast (02/05/2023 1:13 AM CDT) Anatomical Region Laterality Modality Abdomen, Pelvis, Abdominal R ST LOS, Abdominal ARZ LOS, Abdominal FLA LOS N/A Computed Tomograp hy, Computed Tomography 02/05/2023 1:26 AM CDT Impressions 02/05/2023 3:28 AM CDT Marked wall thickening and edema throughout the small bowel with mesenteric edema and ascites. Findings are nonspecific without intravenous contrast and could reflect bowel ischemia, fluid overload, or other infectious/inflammatory causes of enteritis. No bowel obstruction. No perforation. Narrative 02/05/2023 3:28 AM CDT EXAM: ??CT ABDOMEN PELVIS WITHOUT IV CONTRAST COMPARISON: ??CT abdomen/pelvis without contrast 09/14/2022 FINDINGS: ??Patient declined intravenous contrast at the time of imaging. Marked wall thickening and edema throughout the majority of the small bowel in the abdomen, which is nondilated. The ascending and transverse colon also appear mildly thickened. No pneumatosis, portal venous gas, or free air. Diffuse mesenteric edema, with a moderate amount of ascites. Cardiomegaly. No pleural effusions. Vascular calcifications greater than expected for age. Remainder unremarkable on this unenhanced CT. Procedure Note Bhavana Suh M.D. - 02/05/2023 EXAM: CT ABDOMEN PELVIS WITHOUT IV CONTRAST COMPARISON: CT abdomen/pelvis without contrast 09/14/2022 FINDINGS: Patient declined intravenous contrast at the time of imaging. Marked wall thickening and edema throughout the majority of the smallbowel in the abdomen, which is nondilated. The ascending and transverse colon also appear mildlythickened. No pneumatosis, portal venous gas, or free air. Diffuse mesenteric edema, with a moderate amountof ascites. Cardiomegaly. No pleural effusions. Vascular calcifications greater than expected for age. Remainderunremarkable on this unenhanced CT. IMPRESSION: Marked wall thickening and edema throughout the small bowel withmesenteric edema and ascites. Findings are nonspecific without intravenous contrast and couldreflect bowel ischemia, fluid overload, or other infectious/inflammatory causes of enteritis. Nobowel obstruction. No perforation. Renay Bolton M.D. [facility] [place] AL OCEDURES * (ABNORMAL) Dipstick, Urine (02/05/2023 12:47 AM CDT) Hemoglobin, QL, U Small(A) Negative 02/05/2023 1:31 AM CDT DTL Leukocyte Esterase, U Negative Negative 02/05/2023 1:31 AM CDT DTL Nitrite, U Negative Negative 02/05/2023 1:31 AM CDT DTL Ketone, U Negative Negative mg/dL 02/05/2023 1:31 AM CDT DTL Glucose, U 70(A) Negative mg/dL 02/05/2023 1:31 AM CDT DTL Urine 02/05/2023 12:4 7 AM CDT 02/05/2023 1:09 AM CDT Bishop Melgar M.D. LAB URINE ORDERABLES Performing Organization Address City/[facility]/ZIP Co de Phone Number [facility] [address] [place] [address], [address] [address] * Microscopic Manual (02/05/2023 12:47 AM CDT) Microscopy Normal 02/05/2023 2:21 AM CDT DTL RBC <3 <3 /hpf 02/05/2023 2:21 AM CDT DTL WBC 1-3 /hpf 02/05/2023 2:21 AM CDT DTL Comment: ----REFERENCE VALUE---- 1-3 ??(Males) 1-10 (Females) Squamous Epithelial Cells, U 1-3 /hpf 02/05/2023 2:21 AM CDT DTL Crystals Calcium Oxalate crystals present 02/05/2023 2:21 AM CDT DTL Urine 02/05/2023 12:4 7 AM CDT 02/05/2023 1:31 AM CDT Bishop Melgar M.D. LAB URINE ORDERABLES Performing Organization Address City/[facility]/ZIP Co de Phone Number [facility] [address] [place] [address], [facility] [address] [place] [address] * Bacterial Culture, Aerobic + Susceptibility, Urine (02/05/2023 12:47 AM CDT) Urine Culture No growth after 1 day of incubation. 02/06/2023 8:15 AM CDT DT Urine (Urine, Midstream) 02/05/2023 12:47 AM CDT 02/05/2023 4:25 AM CDT Comment:Specimen Source Site : Urine Bishop Melgar M.D. LAB MICROBIOLOGY - G ENERAL ORDERABLES Performing Organization Address City/[facility]/ZIP Co de Phone Number [facility] [address] [place] [address] * pH, Urine (02/05/2023 12:47 AM CDT) pH, U 7.1 4.5 - 8.0 02/05/2023 1:3 6 AM CDT DT Urine 02/05/2023 12:4 7 AM CDT 02/05/2023 1:09 AM CDT Bishop Melgar M.D. LAB URINE ORDERABLES Performing Organization Address City/[facility]/ZIP Co de Phone Number [facility] [address] [place] [address] * Osmolality, Urine (02/05/2023 12:47 AM CDT) Osmolality, U 331 150 - 1150 mOsm/kg 02/05/2023 1:36 AM CDT DT Urine 02/05/2023 12:4 7 AM CDT 02/05/2023 1:09 AM CDT Bishop Melgar M.D. LAB URINE ORDERABLES Performing Organization Address City/[facility]/ZIP Co de Phone Number [facility] [address] [place] [address] * (ABNORMAL) Urinalysis with Microscopic: Urine, Midstream (02/05/2023 12:47 AM CDT) Source Urine, Urine, Midstream 02/05/2023 1:09 AM CDT DTL Color, U Yellow 02/05/2023 1:09 AM CDT DTL Clarity, U Clear 02/05/2023 1:09 AM CDT DTL Protein, U 231(H) <26 mg/dL 02/05/2023 2:01 AM CDT DTL Protein/Osmol ality 6.98(H) <0.42 ratio 02/05/2023 2:01 AM CDT DTL Predicted 24 HR Protein, U 5998(H) <229 mg/24 h 02/05/2023 2:01 AM CDT DTL Predicted Range 1904-58080 mg/24 h 02/05/2023 2:01 AM CDT DTL Urine (Urine, Midstream) 02/05/2023 12:47 AM CDT 02/05/2023 1:09 AM CDT Bishop Melgar M.D. LAB URINE ORDERABLES [facility] [address] [place] [address], [facility] [address] [place] [address] from Last 3 Months Advance Directives For more information, please contact: [phone] Latest Code Status on File Code Status Date Activated Date Inactivated Comments Full Code 02/05/2023 4:33 AM 02/07/2023 4:46 PM Question Answer Comments Full Code: Discussed Code Status History Code Status Date Activated Date Inactivated Comments Full Code 10/19/2022 6:18 AM 10/20/2022 5:33 PM Question Answer Comments Full Code: Discussed Full Code 07/28/2022 11:23 PM 07/30/2022 5:00 PM Question Answer Comments Full Code: Discussed Care Teams Computer Technical Support Specialist Relationship Specialty Start Date End Date Elsewhere, Pcp PCP - General Internal Medicine 02/04/23
--- OUTSIDE RECORDS SUMMARY | 2023-05-08 16:22 | XMS_ITS | Encounter Summary ---
Author Name Unknown Organization [facility] Address [address] [place] [address] Care Team Providers Care Photo Cartographer Name Role Phone No Ref-Primary, Physician Primary Care Provider Reason for Visit * Reason Comments Dental Pain * Auth/Cert (Routine) Specialty Diagnoses / Procedures Referred By Mel quiroz Referred To Contact EMERGENCY MEDICINE Diagnoses Spell of altered consciousness Hyperkalemia Jaw pain Headache Spell of altered consciousness Emergency Dept [address] [place] [address] Referral ID Status Reason Start Date Expiration Date Visits Re quested Visits Authorized [id number] 1 1 Encounter Details Date Type Department Care Team (Late st Contact Info) Description 05/27/2022 2:02 PM BINDER LOCKSTITCH - 05/29/2022 2:43 PM B[facility]ER LOCK[facility] Hospital Encounter [place] [id number] [facility] [address] [place] [address] Brooks Finnegan PA-C [facility] [address] [place], [place] [id number] Sundeep Melvin MD [address] [place], [place] [id number] Aliza Stevenson MD [facility] [address] [place], [place] [id number] Teresita Faustin DO [facility] [address] [place] [address] Benign essential hypertension (Primary Dx); Hyperkalemia; Jaw pain; Headache; Spell of altered consciousness; Abdominal pain, epigastric; HTN (hypertension) Discharge Disposition: Home or Self Care Social History Tobacco Use Types Packs/Day Years Used Date Smoking Tobacco: Never Assessed Sex and Gender Information Value Date Recorded Sex Assigned at Not on file Gender Identity Not on file Sexual Orientation Not on file documented as of this encounter Last Filed Vital Signs Vital Sign Reading Time Taken Comments Blood Pressure 162/82 05/29/2022 7:26 AM BINDER LOCKSTITCH Pulse 102 05/29/2022 7:26 AM BINDER LOCKSTITCH Temperature 37.1 ??C (98.8 ??F) 05/29/2022 7:26 AM CS T Respiratory Rate 18 05/29/2022 7:26 AM BINDER LOCKSTITCH Oxygen Saturation 96% 05/29/2022 7:26 AM BINDER LOCKSTITCH Inhaled Oxygen Concentration - - Weight 66.9 kg (147 lb 6.4 oz) 05/29/2022 6:29 A M BINDER LOCKSTITCH Height 162.6 cm (5' 4) 05/27/2022 1:48 PM BINDER LOCKSTITCH Body Mass Index 25.3 05/27/2022 1:48 PM BINDER LOCKSTITCH documented in this encounter Discharge Summaries * Aliza Burnette DO - 05/29/2022 10:43 AM CST Hospitalist Discharge Summary [facility] Salbador Justin Date of : 1985 Age: [age] year old Date of Admission: 05/27/2022 Date of Discharge: 05/29/2022 Admitting Physician: Sundeep Melvin MD Discharge Physician: Aliza Burnette DO Discharging Service: Hospitalist Primary Provider: No Ref-Primary, Physician Discharge Diagnosis: ESRD Hyperkalemia AGMA Spells Lt maxillary sinusitis L dental pain, possible infection HTN Anemia Demand ischemia Incidental liver lesion Discharge Disposition: Discharged to home Allergies: Allergies Allergen Reactions ??? Hydrocodone Other reaction(s): Seizures ??? Morphine Anaphylaxis ??? Ibuprofen Other (See Comments) ??? Nsaids Other (See Comments) ??? Diphenhydramine Anxiety Discharge Medications: Current Discharge Medication List START taking these medications Details clindamycin (CLEOCIN) 300 MG capsule Take 1 capsule (300 mg) by mouth 3 times daily for 7 days Qty: 21 capsule, Refills: 0 Associated Diagnoses: Jaw pain lisinopril (ZESTRIL) 20 MG tablet Take 1 tablet (20 mg) by mouth daily Qty: 30 tablet, Refills: 1 Associated Diagnoses: Benign essential hypertension pantoprazole (PROTONIX) 40 MG EC tablet Take 1 tablet (40 mg) by mouth every morning (before breakfast) Qty: 30 tablet, Refills: 1 Associated Diagnoses: Jaw pain CONTINUE these medications which have CHANGED Details amLODIPine (NORVASC) 10 MG tablet Take 1 tablet (10 mg) by mouth daily Qty: 30 tablet, Refills: 1 Associated Diagnoses: Benign essential hypertension carvedilol (COREG) 12.5 MG tablet Take 1 tablet (12.5 mg) by mouth 2 times daily (with meals) Qty: 60 tablet, Refills: 1 Associated Diagnoses: Benign essential hypertension hydrALAZINE (APRESOLINE) 50 MG tablet Take 1 tablet (50 mg) by mouth 2 times daily Qty: 60 tablet, Refills: 1 Associated Diagnoses: Benign essential hypertension minoxidil (LONITEN) 2.5 MG tablet Take 1 tablet (2.5 mg) by mouth daily Qty: 30 tablet, Refills: 1 Associated Diagnoses: Benign essential hypertension STOP taking these medications benazepril (LOTENSIN) 20 MG tablet Comments: Reason for Stopping: gabapentin (NEURONTIN) 100 MG capsule Comments: Reason for Stopping: omeprazole (PRILOSEC) [address] capsule Comments: Reason for Stopping: Condition on Discharge: Discharge condition: Stable Discharge vitals: Blood pressure (!) 162/82, pulse 102, temperature 98.8 ??F (37.1 ??C), temperature source Oral, resp. rate 18, height 1.626 m (5' 4), weight 66.9 kg (147 lb 6.4 oz), SpO2 96 %. Code status on discharge: Full Code BASIC PHYSICAL EXAMINATION: GENERAL: No apparent distress. CARDIOVASCULAR: Regular rate and rhythm without murmurs. PULMONARY: Clear to auscultation bilaterally. GASTROINTESTINAL: Abdomen soft, non-tender. EXTREMITIES: No edema, pulses intact. NEUROLOGIC: No focal deficits. History of Illness: See detailed admission note for full details. Procedures excluding imaging which is summarized below: Please see details in the electronic medical record. Consultations: NEUROLOGY IP CONSULT NEPHROLOGY IP CONSULT Significant Results: Results for orders placed or performed during the hospital encounter of 05/27/22 CT Head w/o Contrast Narrative CT SCAN OF THE HEAD WITHOUT CONTRAST 05/27/2022 4:04 PM HISTORY: Seizures, headache, left-sided jaw pain TECHNIQUE: Axial images of the head and coronal reformations without IV contrast material. Radiation dose for this scan was reduced using automated exposure control, adjustment of the mA and/or kV according to patient size, or iterative reconstruction technique. COMPARISON: None. FINDINGS: There is no evidence of intracranial hemorrhage, mass, acute infarct or anomaly. Mild prominence of the cerebral sulci and ventricles, compatible with minimal/mild generalized cerebral volume loss. There appear to be possible subtle mild patchy areas of hypoattenuation in the cerebral white matter, which are nonspecific. Differential considerations are broad but would include early mild chronic small vessel ischemic change, demyelinating disease, sequela of previous infectious/inflammatory process, etc. There is no extra-axial fluid collection or mass effect/herniation. Mild to moderate polypoid mucosal thickening in the left maxillary sinus. The other visualized paranasal sinuses are clear. The mastoid and middle ear cavities appear grossly clear. The bony calvarium and bones of the skull base appear intact. Impression IMPRESSION: 1. No acute intracranial hemorrhage, extra axial fluid collection, or mass effect. 2. Possible subtle patchy nonspecific hypoattenuation in the cerebral white matter, as described. 3. Mild to moderate polypoid mucosal thickening in the left maxillary sinus. ALIZA SIEGEL MD CT Abdomen Pelvis w/o Contrast Narrative CT ABDOMEN PELVIS WITHOUT CONTRAST 05/27/2022 4:04 PM HISTORY: Upper abdominal pain TECHNIQUE: CT scan obtained of the abdomen, and pelvis without IV contrast. Radiation dose for this scan was reduced using automated exposure control, adjustment of the mA and/or kV according to patient size, or iterative reconstruction technique. COMPARISON:None available. FINDINGS: Lower chest:Lung bases are clear. Abdomen/pelvis:Limited evaluation of the abdominal organs due to lack of intravenous contrast, within this limitation, there is; Hepatobiliary: Approximately 1.2 cm hypoattenuating focus in hepatic segment 8 (serious 2 image 18). Otherwise, the unenhanced liver and gallbladder are grossly unremarkable. Pancreas: The unenhanced pancreas is grossly unremarkable. Spleen: No splenomegaly. Adrenal glands: Mild diffuse left adrenal gland thickening. No right adrenal nodule. Kidneys: No radiodense kidney/ureteral stones or hydronephrosis in the kidney. Bowel: No abnormally dilated bowel loops. The appendix is visualized and appears normal. Colonic diverticulosis predominantly of the sigmoid colon without CT evidence of acute diverticulitis. Peritoneum: No significant free fluid in the abdomen or pelvis. No free peritoneal portal venous gas. Pelvic organs: Mild diffuse urinary bladder wall thickening, nonspecific, can be seen with under distention versus chronic cystitis. Vascular: Scattered atherosclerotic vascular calcification of the abdominal aorta and iliac vessels. Lymph nodes: No significant abdominopelvic lymphadenopathy. Bones and soft tissue: No suspicious osseous lesion. Impression IMPRESSION: Within the limitation of noncontrast exam, there is; 1. No evidence of acute pathology in the abdomen and pelvis. 2. Colonic diverticulosis without CT evidence of acute diverticulitis. 3. Approximately 1.3 cm hypodense focus in the right hepatic lobe, indeterminate, could represent hepatic hemangioma versus other hepatic lesions, can be further evaluated with contrast enhanced MRI on nonemergent basis. ANJELICA MUSE MD Transthoracic Echocardiogram Results: No results found for this or any previous visit (from the past 4320 hour(s)). Pending Results: Unresulted Labs Ordered in the Past 30 Days of this Admission No orders found from 04/27/2022 to 05/28/2022. Discharge Instructions and Follow-Up: Discharge instructions and follow-up: Discharge Procedure Orders Reason for your hospital stay Order Comments: High blood pressure, kidney failure. Follow-up and recommended labs and tests Order Comments: Follow up with primary care provider, Physician No Ref-Primary, within 7 days to evaluate medication change and for hospital follow- up. The following labs/tests are recommended: BMP,CBC. Further assess incidental liver lesion assess with contrast-enhanced MRI on nonemergent basis. Follow-up with nephrology CAROLANN. Attend dialysis tomorrow. Follow-up with neurology in 2-4 weeks. Follow-up with dentist CAROLANN. Activity Order Comments: Your activity upon discharge: activity as tolerated Order Specific Question Answer Comments Is discharge order? Yes Full Code Order Specific Question Answer Comments Code status determined by: Discussion with patient/ legal decision maker Diet Order Comments: Follow this diet upon discharge: Orders Placed This Encounter Renal Diet (dialysis) Order Specific Question Answer Comments Is discharge order? Yes Hospital Course: Salbador Justin is a 36 year old male??with PMH significant for ESRD on dialysis and hypertension who recently moved to [place] from [place] about 3 months ago and has yet to establish care with a primary care provider who presents to the ED for evaluation of dental pain and concern for multiple seizure like episodes. ?? #Hyperkalemia. AGMA. ESRD??on HD (//Fri):??Compliant with dialysis, last run without issues at [facility] on 05/25. [facility] Blind Worker is Concetta Burns in [place]. Initial potassium level of 6.4. Anion gap elevated at 28 and CO2 of 16. He does still produce urine.? -Monitored on telemetry, no evidence for peaked T waves on EKG. -Received calcium gluconate and lasix in ED. He was also treated with Lokelma. -Patient undergoing dialysis on the a.m. of 05/28. -Monitor BMP daily. Creatinine and potassium stable. -Continue routine dialysis per outpatient team. He tells me he needs to skip his dialysis tomorrow but he will call his outpatient team to have it rescheduled for the day after. I told him I would like to talk to nephrology here to see if he should dialyze today, knowing he plans to skip tomorrow, but he said he will not dialyze here today. ?? #Possible seizure episodes:??In the last??24 hours the patient has had 4 episodes of what he describes as seizures. All unwitnessed and last occurrence at 11 AM on 05/27. Associated prodrome??where he??feels weak, diaphoretic, and dizzy. He goes somewhere to lay down when this happens.??During the episodes he will not??respond but says he is coherent enough to hear what is going on around him. He does lose consciousness briefly with these episodes but denies tongue biting, urinary or stool incontinence, or myalgias after. Does not describe a postictal periods though.??Reported history of seizures and on antiepileptics that he discontinued on his own. Previous EEG while residing in [place].?? -Neurology contacted in ED and recommended holding off on antiepileptics. -Neurology consultation here, they do not believe this represents seizure activity and recommend outpatient neurology follow-up. ?? #Left??upper dental pain. Possible left maxillary sinusitis: Reports two days of left upper dental pain in one of his molars. History of previous dental infections with associated abscess requiring tooth extraction and IV antibiotics. He has baseline poor dentition and has not recently seen a dentist, planning to see one day of admission. Recently on antibiotics for otitis media about 1 month agowith improvement in left sided facial pain, suspect this improved dental infection in the short term. No current concern for dental abscess on exam, afebrile, and no leukocytosis.?? -His CT of the head did show possible left maxillary sinusitis. -Gave IV unasyn while IP, discharge likely on clindamycin due to renal clearance issues with amoxacillin. He will need to follow up with a dentist. -Recommending close outpatient f/u with dentist for further management. Explained to patient we do not have dentist in house here in the hospital. He tells me he had tooth extraction over year ago for dental infections but hasn't seen dentist since that time. ?? #HTN: BP elevated into the 200s/130s in ED as well patient in tachycardic, suspect due to pain and needing dialysis. -Resumed NETWORK CABLER Amlodipine, Carvedilol, Hydralazine, Lisinopril, and Minoxidil -PRN IV Hydralazine for SBP >180 ?? #Anemia: Hgb of 10.6, similar to previous labs one month ago. Suspect related to chronic kidney disease. No evidence of bleeding.? #Troponin elevation, possible demand ischemia versus related to ESRD: Initial troponin of 68, flat on recheck. No CP. ?? #Incidental lesion of liver: CT scan incidentally showed approximately 1.3 cm hypodense focus in the right hepatic lobe, indeterminate, could represent hepatic hemangioma versus other hepatic lesions??(could further assess with contrast-enhanced MRI on nonemergent basis). Will need outpatient follow up with PCP. The patient was seen, examined, and counseled on this day. The hospitalization and plan of care wasreviewed with the patient extensively. All questions were addressed and the patient agreed to follow-up as noted above. Total time spent in face to face contact with the patient and coordinating discharge was: 35 Minutes Aliza Burnette DO [facility] Hospitalist [place] [address] 05/29/2022 ER LOCKSTITCH documented in this encounter Discharge Instructions * Discharge Instructions* Wade Bruno RN - 05/29/2022 11:27 AM BINDER LOCKSTITCH Your hospital follow up appointment has been scheduled for you with Dr. Maco Hylton at [facility] for June 05 at 3:45 pm. Please bring your hospital discharge instructions, a photo ID, and insurance information with you to your appointment. Please call the clinic at #[phone] if you need to reschedule. ER LOCKSTITCH documented in this encounter Medications at Time [...] by mouth daily 30 tablet 1 05/29/2022 clindamycin (CLEOCIN) 300 MG capsuleIndications:Jaw pain Take 1 capsule (300 mg) by mouth 3 times daily for 7 days 21 capsule 0 05/29/2022 06/05/2022 carvedilol (COREG) 12.5 MG tabletIndications:Benign essential hypertension Take 1 tablet (12.5 mg) by mouth 2 times daily (with meals) 60 tablet 1 05/29/2022 07/03/2022 HYDROmorphone (DILAUDID) 2 MG tabletIndications:Jaw pain Take 0.5-1 tablets (1-2 mg) by mouth every 8 hours as needed for severe pain (7-10) 6 tablet 0 05/29/2022 07/03/2022 pantoprazole (PROTONIX) 40 MG EC tabletIndications:Jaw pain Take 1 tablet (40 mg) by mouth every morning (before breakfast) 30 tablet 1 05/29/2022 07/03/2022 documented as of this encounter Progress Notes * Carlos Salgado MD - 05/29/2022 10:05 AM CST He notes continued dental pain. He knows he needs to get to a dentist. BP better but still 162/82. He says that is my normal BP. He had a full run of HD yesterday. No need for HD today. If he is otherwise ready for discharge, he can go. Follow up with HD in [place]. Titration of BP meds per Dr. Freire, his primary features editor. Carlos Salgado MD ER LOCKSTITCH * Itzel Barksdale RN - 05/28/2022 1:03 PM CST Potassium Date Value Ref Range Status 05/27/2022 6.4 (HH) 3.4 - 5.3 mmol/L Final Hemoglobin Date Value Ref Range Status 05/27/2022 10.6 (L) 13.3 - 17.7 g/dL Final Creatinine Date Value Ref Range Status 05/27/2022 13.78 (H) 0.67 - 1.17 mg/dL Final Urea Nitrogen Date Value Ref Range Status 05/27/2022 43.8 (H) 6.0 - 20.0 mg/dL Final Sodium Date Value Ref Range Status 05/27/2022 136 136 - 145 mmol/L Final No results found for: INR DIALYSIS PROCEDURE NOTE Hepatitis status of previous patient on machine log was checked and verified ok to use with this patients hepatitis status. Patient dialyzed for 3.5 hrs. on a K2 bath with a net fluid removal of 1L. A BFR of 400 ml/min was obtained via a AVF using 15 gauge needles. The treatment plan was discussed with Dr. Madhusoodanan during the treatment. Total heparin received during the treatment: 1200 units. Needle cannulation sites held x 10 min. Meds given: none Complications: pain Person educated: Pre-tx. Knowledge base substantial. Barriers to learning: none. Educated on procedure via verbal mode. Patient verbalized understanding. Pt prefers verbal education style. ICEBOAT? Timeout performed pre-treatment I: Patient was identified using 2 identifiers C: Consent Signed Yes E: Equipment preventative maintenance is current and dialysis delivery system OK to use B: Hepatitis B Surface Antigen: unknown, result pending ; Draw Date: 05/28/22 Hepatitis B Surface Antibody: unknown; results pending; Draw Date: 05/28/22 O: Dialysis orders present and complete prior to treatment A: Vascular access verified and assessed prior to treatment T: Treatment was performed at a clinically appropriate time ?: Patient was allowed to ask questions and address concerns prior to treatment See Adult Hemodialysis flowsheet in [facility] for further details and post assessment. Machine water alarm in place and functioning. Transducer pods intact and checked every 15min. Pt returned via bed. Chlorine/Chloramine water system checked every 4 hours. Outpatient Dialysis at [facility] Patient repositioned every 2 hours during the treatment. Post treatment report given to Trinidad Causey RN regarding 1L of fluid removed, last BP of 208/117, and patient pain rating of 10/10. Please remove patient dressing on AVF and AVG needle sites 24 hours after dialysis. If leaking occurs please apply a Band-Aid. ER LOCKSTITCH * Alvaro Draper MD - 05/28/2022 12:00 PM CST [facility] Hospitalist Progress Note Assessment & Plan Salbador Justin is a 36 year old male with PMH significant for ESRD on dialysis and hypertension who recently moved to [place] from [place] about 3 months ago and has yet to establish care witha primary care provider who presents to the ED for evaluation of dental pain and concern for multiple seizure like episodes. ?? #Hyperkalemia. AGMA. ESRD on HD (/Fri): compliant with dialysis, last run without issues at [facility] on 05/25. [facility] Blind Worker is Concetta Burns in [place]. Initial potassium level of 6.4. Anion gap elevated at 28 and CO2 of 16. He does still produce urine. - monitor on telemetry, no evidence for peaked T waves on EKG - received calcium gluconate and lasix in ED. He was also treated with Lokelma overnight -Patient undergoing dialysis on the a.m. of 05/28. -Monitor BMP daily. ?? #Possible seizure episodes: In the last 24 hours the patient has had 4 episodes of what he describes as seizures. All unwitnessed and last occurrence at 11 AM on 05/27. Associated prodrome where he feels weak, diaphoretic, and dizzy. He goes somewhere to lay down when this happens. During the episodes he will not respond but says he is coherent enough to hear what is going on around him. He does lose consciousness briefly with these episodes but denies tongue biting, urinary or stool incontinence, or myalgias after. Does not describe a postictal periods though. Reported history of seizures andon antiepileptics that he discontinued on his own. Previous EEG while residing in [place]. - seizure precautions - neurology contacted in ED and recommended holding off on antiepileptics - PRN ativan available for seizure activity - neurology consultation. ?? #Left upper dental pain. Possible left maxillary sinusitis: reports two days of left upper dental pain in one of his molars. History of previous dental infections with associated abscess requiring tooth extraction and IV antibiotics. He has baseline poor dentition and has not recently seen a dentist, planning to see one day of admission. Recently on antibiotics for otitis media about 1 month ago with improvement in left sided facial pain, suspect this improved dental infection in the short term. No current concern for dental abscess on exam, afebrile, and no leukocytosis. -His CT of the head did show possible left maxillary sinusitis. - Will give IV unasyn while IP, discharge likely on augmentin. He will need to follow up with a dentist. - pain control, limit narcotics as able - recommending close outpatient f/u with dentist for further management. Explained to patient we donot have dentist in house here in the hospital. He tells me he had tooth extraction over year ago for dental infections but hasn't seen dentist since that time. ?? #HTN: BP elevated into the 200s/130s in ED as well patient in tachycardic, suspect due to pain and needing dialysis. - resume NETWORK CABLER Amlodipine, Carvedilol, Hydralazine, Lisinopril, and Minoxidil - PRN IV Hydralazine for SBP >180 ?? #Anemia: Hgb of 10.6, similar to previous labs one month ago. Suspect related to chronic kidney disease. No evidence of bleeding. ?? #Troponin elevation, possible demand ischemia versus related to ESRD: initial troponin of 68, flat on recheck. No CP. #Incidental lesion of liver: CT scan incidentally showed approximately 1.3 cm hypodense focus in the right hepatic lobe, indeterminate, could represent hepatic hemangioma versus other hepatic lesions(could further assess with contrast-enhanced MRI on nonemergent basis). Will need outpatient followup with PCP. DVT Prophylaxis: Pneumatic Compression Devices Code Status: Full Code, discussed with patient Disposition: Possibly tomorrow. Pending neurology assessment, pain control of tooth issue. Alvaro Draper MD Interval History Patient seen in dialysis. Lying in bed. Complaining of dental pain through the night. No fevers. Hypertensive. Getting dialysis currently. -Data reviewed today: I reviewed all new labs and imaging results over the last 24 hours. Physical Exam Temp: 98.8 ??F (37.1 ??C) Temp src: Oral BP: (!) 189/111 Pulse: 100 Resp: 20 SpO2: 96 % O2 Device: None (Room air) Vitals: 05/27/22 1348 Weight: 70.3 kg (155 lb) Vital Signs with Ranges Temp: [98.3 ??F (36.8 ??C)-99.2 ??F (37.3 ??C)] 98.8 ??F (37.1 ??C) Pulse: [84-110] 100 Resp: [18-22] 20 BP: (136-217)/(79-139) 189/111 SpO2: [95 %-100 %] 96 % I/O last 3 completed shifts: In: 380 [P.O.:380] Out: - Constitutional: Lying in bed, no acute distress. Answers appropriately. HEENT: Normocephalic. Mucous membranes are moist. Poor dentition overall. No evidence of abscess onexam in the molar region. Respiratory: Nl WOB, Clear bilaterally, No wheezes or crackles Cardiovascular: Regular, no murmur. Loud S2 GI: BS+, NT, ND Skin/Integumen: WWP, no rash. No edema Neuro: CNII-XII intact. Moves all extremities. No tremor. A&Ox3. Medications ??? heparin (porcine) 500 Units/hr (05/28/22 1127) ??? amLODIPine 10 mg Oral Daily ??? amoxicillin-clavulanate 1 tablet Oral Q12H FATUMA (12/15) ??? carvedilol 12.5 mg Oral BID w/meals ??? gabapentin 100 mg Oral At Bedtime ??? sodium chloride (PF) 0.9% 10 mL Intracatheter Once in dialysis/CRRT Followed by ??? heparin 1.3-2.6 mL Intracatheter Once in dialysis/CRRT ??? sodium chloride (PF) 0.9% 10 mL Intracatheter Once in dialysis/CRRT Followed by ??? heparin 1.3-2.6 mL Intracatheter Once in dialysis/CRRT ??? hydrALAZINE 50 mg Oral BID ??? lisinopril 20 mg Oral Daily ??? minoxidil 2.5 mg Oral Daily ??? pantoprazole 40 mg Oral QAM AC ??? sodium chloride (PF) 3 mL Intracatheter Q8H Data Recent Labs Lab 05/27/22200605/27/22 1843 05/27/22 1501 WBC -- -- 8.2 HGB -- -- 10.6* MCV -- -- 89 PLT -- -- 313 NA -- -- 136 POTASSIUM 6.4* 6.2* 6.4* CHLORIDE -- -- 92* CO2 -- -- 16* BUN -- -- 43.8* CR -- -- 13.78* ANIONGAP -- -- 28* CLAIRE -- -- 9.5 GLC -- -- 79 ALBUMIN -- -- 5.0 PROTTOTAL -- -- 7.9 BILITOTAL -- -- 0.4 ALKPHOS -- -- 51 ALT -- -- 13 AST -- -- 23 LIPASE -- -- 37 Recent Results (from the past 24 hour(s)) CT Abdomen Pelvis w/o Contrast Narrative CT ABDOMEN PELVIS WITHOUT CONTRAST 05/27/2022 4:04 PM HISTORY: Upper abdominal pain TECHNIQUE: CT scan obtained of the abdomen, and pelvis without IV contrast. Radiation dose for this scan was reduced using automated exposure control, adjustment of the mA and/or kV according to patient size, or iterative reconstruction technique. COMPARISON:None available. FINDINGS: Lower chest:Lung bases are clear. Abdomen/pelvis:Limited evaluation of the abdominal organs due to lack of intravenous contrast, within this limitation, there is; Hepatobiliary: Approximately 1.2 cm hypoattenuating focus in hepatic segment 8 (serious 2 image 18). Otherwise, the unenhanced liver and gallbladder are grossly unremarkable. Pancreas: The unenhanced pancreas is grossly unremarkable. Spleen: No splenomegaly. Adrenal glands: Mild diffuse left adrenal gland thickening. No right adrenal nodule. Kidneys: No radiodense kidney/ureteral stones or hydronephrosis in the kidney. Bowel: No abnormally dilated bowel loops. The appendix is visualized and appears normal. Colonic diverticulosis predominantly of the sigmoid colon without CT evidence of acute diverticulitis. Peritoneum: No significant free fluid in the abdomen or pelvis. No free peritoneal portal venous gas. Pelvic organs: Mild diffuse urinary bladder wall thickening, nonspecific, can be seen with under distention versus chronic cystitis. Vascular: Scattered atherosclerotic vascular calcification of the abdominal aorta and iliac vessels. Lymph nodes: No significant abdominopelvic lymphadenopathy. Bones and soft tissue: No suspicious osseous lesion. Impression IMPRESSION: Within the limitation of noncontrast exam, there is; 1. No evidence of acute pathology in the abdomen and pelvis. 2. Colonic diverticulosis without CT evidence of acute diverticulitis. 3. Approximately 1.3 cm hypodense focus in the right hepatic lobe, indeterminate, could represent hepatic hemangioma versus other hepatic lesions, can be further evaluated with contrast enhanced MRI on nonemergent basis. ANJELICA MUSE MD CT Head w/o Contrast Narrative CT SCAN OF THE HEAD WITHOUT CONTRAST 05/27/2022 4:04 PM HISTORY: Seizures, headache, left-sided jaw pain TECHNIQUE: Axial images of the head and coronal reformations without IV contrast material. Radiation dose for this scan was reduced using automated exposure control, adjustment of the mA and/or kV according to patient size, or iterative reconstruction technique. COMPARISON: None. FINDINGS: There is no evidence of intracranial hemorrhage, mass, acute infarct or anomaly. Mild prominence of the cerebral sulci and ventricles, compatible with minimal/mild generalized cerebral volume loss. There appear to be possible subtle mild patchy areas of hypoattenuation in the cerebral white matter, which are nonspecific. Differential considerations are broad but would include early mild chronic small vessel ischemic change, demyelinating disease, sequela of previous infectious/inflammatory process, etc. There is no extra-axial fluid collection or mass effect/herniation. Mild to moderate polypoid mucosal thickening in the left maxillary sinus. The other visualized paranasal sinuses are clear. The mastoid and middle ear cavities appear grossly clear. The bony calvarium and bones of the skull base appear intact. Impression IMPRESSION: 1. No acute intracranial hemorrhage, extra axial fluid collection, or mass effect. 2. Possible subtle patchy nonspecific hypoattenuation in the cerebral white matter, as described. 3. Mild to moderate polypoid mucosal thickening in the left maxillary sinus. ALIZA SIEGEL MD ER LOCKSTITCH * Mor Malcolm RN - 05/27/2022 11:26 PM CST Vitals initially tachycardic and hypertensive. Improved after pt received home antihypertensive meds. Pt had self- reported seizure x 1, see other note. Pt received PRN dilaudid 0.2 mg which was not effective. Dose increased, 0.[address] then SR w/ occasional PVCs. Up SBA. Tolerating diet, poor appetitie. Pt had episode of emesis x 1, improved after PRN zofran. Ice applied to face. Planned dialysis tomorrow. Discharge pending. ER LOCKSTITCH * Mor Malcolm RN - 05/27/2022 10:07 PM CST At 2145 this va underwriter responded to pt call light. Pt indicated he was going to have seizure. Pt went unresponsive for 45 seconds then came too, stating I'm back now. Provider notified. Seizure pads in place. Will continue to provide supportive cares. ER LOCKSTITCH * Dalton Mendieta MD - 05/27/2022 4:43 PM CST Brief Nephrology Note Patient presented with facial pain and seizures. He has ESRD, dialyzes TTS. Paged regarding hyperkalemia, K 6.4, EKG without peaked T waves. Possibly related to seizure activity vs him being due for dialysis. No need to shift, no harm in giving calcium gluconate. Called dialysis unit, no RNs currently in-house. Will medically treat with lokelma overnight and plan for dialysis tomorrow AM. Orders placed, and dialysis unit notified. Discussed with ED provider. Unknown dialysis unit, access, or outpatient prescription. Pt reports going to [facility]? Will need to determine these details tomorrow when clinic open. - lokelma 10 g q8h - HD tomorrow - no further K checks needed overnight unless continued seizure activity Dalton Mendieta MD ER LOCKSTITCH documented in this encounter H&P Notes * Belinda Driscoll PA-C - 05/27/2022 5:57 PM CST [facility] Hospitalist History and Physical Name: Salbador Justin Date of : 1985 Age: [age] year old Date of Admission: 05/27/2022 Date of Service (when I saw the patient): 05/27/22 Assessment & Plan Salbador Justin is a 36 year old male with PMH significant for ESRD on dialysis and hypertension who recently moved to [place] from [place] about 3 months ago and has yet to establish care witha primary care provider who presents to the ED for evaluation of left upper dental pain and concernfor multiple seizure like episodes. ED workup reveals: tachycardic up to 110s, hypertensive up to 210s/130s, Hgb of 10.6, potassium of 6.4, chloride of 92, CO2 of 16, anion gap of 28, BUN of 43.8 and creatinine of 13.78, Mg WNL, troponin elevated at 68, lactic acid WNL, EKG shows rate of 101 bpm in sinus tachycardia with occasional PVCs, possible left atrial enlargement, the of abdomen/pelvis shows no evidence of acute pathology, colonic diverticulosis without diverticulitis, approximately 1.3 cm hypodense focus in the right hepatic lobe, indeterminate, could represent hepatic hemangioma versus other hepatic lesions (could further assess with contrast- enhanced MRI on nonemergent basis), and CT of head negative for acute pathology, possible subtle patchy nonspecific hypoattenuation in the cerebral white matter, mild to moderate polypoid mucosal thickening in the left maxillary sinus. #Hyperkalemia #AGMA #ESRD on HD (/Fri): compliant with dialysis, last run without issues at [facility] on 05/25. [employer] is [facility] Burns in [place]. Initial potassium level of 6.4. Anion gap elevatedat 28 and CO2 of 16. He does still produce urine. - monitor on telemetry, no evidence for peaked T waves on EKG - received calcium gluconate and lasix in ED - nephrology contacted in ED and recommends not rechecking potassium this evening and treating withlokelma every 8 hours since unable to do dialysis run this evening - formal nephrology consult for dialysis in AM - recheck BMP in AM #Possible seizure episodes: over last 24 hours the patient has had 4 episodes of what he describes as seizures. All unwitnessed and last occurrence at 11 AM on 05/27. Associated prodrome where he feels weak, diaphoretic, and dizzy. He goes somewhere to lay down when this happens. During the episodeshe will not respond but says he is coherent enough to hear what is going on around him. He does lose consciousness briefly with these episodes but denies tongue biting, urinary or stool incontinence,or myalgias after. Does not describe a postictal periods though. Reported history of seizures and on antiepileptics that he discontinued on his own. Previous EEG while residing in [place]. Historydoes not completely seem consistent with seizures. - seizure precautions - neurology contacted in ED and recommended holding off on antiepileptics - PRN ativan available for seizure activity - neurology consult for further evaluation and recommendations #Left upper dental pain: reports two days of left upper dental pain in one of his molars. History of previous dental infections with associated abscess requiring tooth extraction and IV antibiotics. He has baseline poor dentition and has not recently seen a dentist, planning to see one today beforecoming into the ED. Recently on antibiotics for otitis media about 1 month ago with improvement in left sided facial pain, suspect this improved dental infection in the short term. No current concernfor dental abscess on exam, afebrile, and no leukocytosis. - cover with PO Augmentin - pain control, limit narcotics as able - recommending close outpatient f/u with dentist for further management #HTN: BP elevated into the 200s/130s in ED as well patient in tachycardic, suspect due to pain - resume [employer] Amlodipine, Carvedilol, Hydralazine, Lisinopril, and Minoxidil - PRN IV Hydralazine for SBP >180 #Anemia: Hgb of 10.6, similar to previous labs one month ago. Suspect related to chronic kidney disease. No evidence of bleeding. #Troponin elevation, possible demand ischemia versus related to ESRD: initial troponin of 68, no associated chest pain or shortness of breath. - monitor on telemetry - check additional troponin level Clinically Significant Risk Factors Present on Admission # Hyperkalemia: Highest K = 6.4 mmol/L in last 2 days, will monitor as appropriate # Anion Gap Metabolic Acidosis: Highest Anion Gap = 28 mmol/L in last 2 days, will monitor and treat as appropriate # Overweight: Estimated body mass index is 26.61 kg/m?? as calculated from the following: Height as of this encounter: 1.626 m (5' 4). Weight as of this encounter: 70.3 kg (155 lb). DVT Prophylaxis: Pneumatic Compression Devices Code Status: Full Code, discussed with patient Disposition: Expected stay >2 midnights, will admit to inpatient Primary Care Physician None Chief Complaint Dental pain History obtained from discussion with ED provider, Brooks Finnegan PA-C, chart review, and interview with patient as well significant other Margie at bedside. History of Present Illness Salbador Justin is a 36 year old male who presents with left upper dental pain. Patient states that he has been having left sided facial pain since yesterday evening. He states the pain is over his left pentecostalism, upper jaw, and radiates into his ear. He has taken Tylenol without relief. One of his molars seems to be causing him discomfort. Denies any associated drainage. The patient was diagnosed about a month ago with an ear infection for which he was treated with antibiotics and his pain improved until recent recurrence. He was planning to see a dentist today but did not get there before coming into ED. He has had previous dental abscesses requiring tooth extraction. Over the last 24 hoursthe patient has had 4 episodes of what he describes as seizures. None of these episodes were witnessed and the last one occurred around 11 AM today. He reports having a prodrome with the episodes where he feels weak, diaphoretic, and dizzy. He goes somewhere to lay down when this happens. During the episodes he will not respond but says he is coherent enough to hear what is going on around him. He does lose consciousness briefly with these episodes but denies tongue biting, urinary or stool incontinence, or myalgias after. Does not describe a postictal periods though. He does not have seizureepisodes often but they tend to occur with sickness or increased stress. Reports nausea after his episodes and he had 5 episodes of nonbloody vomit today. He notes a history of previous seizures and has had an EEG in the past. He used to be on seizure medications but he stopped those on his own andunknown period of time ago. He reports he has not taken his medications for the last 3 days due to not feeling well enough to do so, but states he is usually compliant. Denies chest pain, shortness of breath, fever, chills, or diarrhea. Did have initial epigastric pain in the ER that has resolved. The patient has been compliant with his dialysis sessions and last had a run on Friday. The patient does not have a primary care provider since he moved here from [place]. Denies any tobacco, alcohol, or illicit drug use. Past Medical History ESRD HTN Heart failure Seizures, reported by patient Past Surgical History None per discussion with patient Prior to Admission Medications Prior to Admission Medications Prescriptions Last Dose Informant Patient Reported? Taking? oxyCODONE-acetaminophen (PERCOCET) 5-325 MG tablet No No Sig: Take 1 tablet by mouth every 4 hours as needed for severe pain (7-10) Facility-Administered Medications: None Allergies Allergies Allergen Reactions ??? Hydrocodone Other reaction(s): Seizures ??? Morphine Anaphylaxis ??? Ibuprofen Other (See Comments) ??? Nsaids Other (See Comments) ??? Diphenhydramine Anxiety Social History Social History Tobacco Use ??? Smoking status: Not on file ??? Smokeless tobacco: Not on file Substance Use Topics ??? Alcohol use: Not on file Social History Social History Narrative ??? Not on file Family History Family history reviewed with patient and is noncontributory. Review of Systems A Comprehensive greater than 10 system review of systems was carried out. Pertinent positives and negatives are noted above. Otherwise negative for contributory information. Physical Exam Temp: 98.3 ??F (36.8 ??C) Temp src: Temporal BP: (!) 217/136 Pulse: 109 Resp: 22 SpO2: 98 % O2 Device: None (Room air) Vital Signs with Ranges Temp: [98.3 ??F (36.8 ??C)] 98.3 ??F (36.8 ??C) Pulse: [89-110] 109 Resp: [22] 22 BP: (203-217)/(132-137) 217/136 SpO2: [98 %-100 %] 98 % 155 lbs 0 oz GEN: Alert, oriented x 3, appears slightly uncomfortable laying on side on gurney, no overt distress HEENT: Normocephalic/atraumatic, no scleral icterus, no nasal discharge, mouth moist. Left upper molar appears slightly irritated but without purulent drainage pr evidence for abscess. Increased cerumen of left ear. Mild tenderness over left pentecostalism with palpation. CV: Regular rate and rhythm, no murmur or JVD. S1 + S2 noted, no S3 or S4. LUNGS: Clear to auscultation bilaterally without rales/rhonchi/wheezing/retractions. Symmetric chest rise on inhalation noted. ABD: Active bowel sounds, soft, non-tender/non-distended. No rebound/guarding/rigidity. EXT: No edema. No cyanosis. No acute joint synovitis noted. Fistula to left UE with palpable thrill. SKIN: Dry to touch, no exanthems noted in the visualized areas. NEURO: Symmetric muscle strength, sensation to touch grossly intact. Coordination symmetric on general exam. No new focal deficits appreciated. Data Data reviewed today: I personally reviewed the EKG tracing showing rate of 101 bpm in sinus tachycardia with occasional PVCs, possible left atrial enlargement. Results for orders placed or performed during the hospital encounter of 05/27/22 CT Head w/o Contrast Status: None Narrative CT SCAN OF THE HEAD WITHOUT CONTRAST 05/27/2022 4:04 PM HISTORY: Seizures, headache, left-sided jaw pain TECHNIQUE: Axial images of the head and coronal reformations without IV contrast material. Radiation dose for this scan was reduced using automated exposure control, adjustment of the mA and/or kV according to patient size, or iterative reconstruction technique. COMPARISON: None. FINDINGS: There is no evidence of intracranial hemorrhage, mass, acute infarct or anomaly. Mild prominence of the cerebral sulci and ventricles, compatible with minimal/mild generalized cerebral volume loss. There appear to be possible subtle mild patchy areas of hypoattenuation in the cerebral white matter, which are nonspecific. Differential considerations are broad but would include early mild chronic small vessel ischemic change, demyelinating disease, sequela of previous infectious/inflammatory process, etc. There is no extra-axial fluid collection or mass effect/herniation. Mild to moderate polypoid mucosal thickening in the left maxillary sinus. The other visualized paranasal sinuses are clear. The mastoid and middle ear cavities appear grossly clear. The bony calvarium and bones of the skull base appear intact. Impression IMPRESSION: 1. No acute intracranial hemorrhage, extra axial fluid collection, or mass effect. 2. Possible subtle patchy nonspecific hypoattenuation in the cerebral white matter, as described. 3. Mild to moderate polypoid mucosal thickening in the left maxillary sinus. ALIZA SIEGEL MD CT Abdomen Pelvis w/o Contrast Status: None Narrative CT ABDOMEN PELVIS WITHOUT CONTRAST 05/27/2022 4:04 PM HISTORY: Upper abdominal pain TECHNIQUE: CT scan obtained of the abdomen, and pelvis without IV contrast. Radiation dose for this scan was reduced using automated exposure control, adjustment of the mA and/or kV according to patient size, or iterative reconstruction technique. COMPARISON:None available. FINDINGS: Lower chest:Lung bases are clear. Abdomen/pelvis:Limited evaluation of the abdominal organs due to lack of intravenous contrast, within this limitation, there is; Hepatobiliary: Approximately 1.2 cm hypoattenuating focus in hepatic segment 8 (serious 2 image 18). Otherwise, the unenhanced liver and gallbladder are grossly unremarkable. Pancreas: The unenhanced pancreas is grossly unremarkable. Spleen: No splenomegaly. Adrenal glands: Mild diffuse left adrenal gland thickening. No right adrenal nodule. Kidneys: No radiodense kidney/ureteral stones or hydronephrosis in the kidney. Bowel: No abnormally dilated bowel loops. The appendix is visualized and appears normal. Colonic diverticulosis predominantly of the sigmoid colon without CT evidence of acute diverticulitis. Peritoneum: No significant free fluid in the abdomen or pelvis. No free peritoneal portal venous gas. Pelvic organs: Mild diffuse urinary bladder wall thickening, nonspecific, can be seen with under distention versus chronic cystitis. Vascular: Scattered atherosclerotic vascular calcification of the abdominal aorta and iliac vessels. Lymph nodes: No significant abdominopelvic lymphadenopathy. Bones and soft tissue: No suspicious osseous lesion. Impression IMPRESSION: Within the limitation of noncontrast exam, there is; 1. No evidence of acute pathology in the abdomen and pelvis. 2. Colonic diverticulosis without CT evidence of acute diverticulitis. 3. Approximately 1.3 cm hypodense focus in the right hepatic lobe, indeterminate, could represent hepatic hemangioma versus other hepatic lesions, can be further evaluated with contrast enhanced MRI on nonemergent basis. ANJELICA MUSE MD Comprehensive metabolic panel Status: Abnormal Result Value Ref Range Sodium 136 136 - 145 mmol/L Potassium 6.4 (HH) 3.4 - 5.3 mmol/L Chloride 92 (L) 98 - 107 mmol/L Carbon Dioxide (CO2) 16 (L) 22 - 29 mmol/L Anion Gap 28 (H) 7 - 15 mmol/L Urea Nitrogen 43.8 (H) 6.0 - 20.0 mg/dL Creatinine 13.78 (H) 0.67 - 1.17 mg/dL Calcium 9.5 8.6 - 10.0 mg/dL Glucose 79 70 - 99 mg/dL Alkaline Phosphatase 51 40 - 129 U/L AST 23 10 - 50 U/L ALT 13 10 - 50 U/L Protein Total 7.9 6.4 - 8.3 g/dL Albumin 5.0 3.5 - 5.2 g/dL Bilirubin Total 0.4 <=1.2 mg/dL GFR Estimate 4 (L) >60 mL/min/1.73m2 Magnesium Status: Normal Result Value Ref Range Magnesium 2.0 1.7 - 2.3 mg/dL Troponin T, High Sensitivity Status: Abnormal Result Value Ref Range Troponin T, High Sensitivity 68 (H) <=22 ng/L Lactic acid whole blood Status: Normal Result Value Ref Range Lactic Acid 1.6 0.7 - 2.0 mmol/L CBC with platelets and differential Status: Abnormal Result Value Ref Range WBC Count 8.2 4.0 - 11.0 10e3/uL RBC Count 3.76 (L) 4.40 - 5.90 10e6/uL Hemoglobin 10.6 (L) 13.3 - 17.7 g/dL Hematocrit 33.5 (L) 40.0 - 53.0 % MCV 89 78 - 100 fL MCH 28.2 26.5 - 33.0 pg MCHC 31.6 31.5 - 36.5 g/dL RDW 13.9 10.0 - 15.0 % Platelet Count 313 150 - 450 10e3/uL % Neutrophils 71 % % Lymphocytes 17 % % Monocytes 8 % % Eosinophils 3 % % Basophils 1 % % Immature Granulocytes 0 % NRBCs per 100 WBC 0 <1 /100 Absolute Neutrophils 5.9 1.6 - 8.3 10e3/uL Absolute Lymphocytes 1.4 0.8 - 5.3 10e3/uL Absolute Monocytes 0.6 0.0 - 1.3 10e3/uL Absolute Eosinophils 0.2 0.0 - 0.7 10e3/uL Absolute Basophils 0.1 0.0 - 0.2 10e3/uL Absolute Immature Granulocytes 0.0 <=0.4 10e3/uL Absolute NRBCs 0.0 10e3/uL EKG 12-lead, tracing only Status: None (Preliminary result) Result Value Ref Range Systolic Blood Pressure mmHg Diastolic Blood Pressure mmHg Ventricular Rate 101 BPM Atrial Rate 101 BPM VA Interval 144 ms QRS Duration 104 ms QT 380 ms QTc 492 ms P [place] 66 degrees R AXIS 80 degrees T [place] 57 degrees Interpretation ECG Sinus tachycardia with occasional Premature ventricular complexes Possible Left atrial enlargement Borderline ECG No previous ECGs available CBC with platelets differential Status: Abnormal Narrative The following orders were created for panel order CBC with platelets differential. Procedure Abnormality Status --------- ------ CBC with platelets and d...[[id number]] Abnormal Final result Please view results for these tests on the individual orders. [facility] Securely message with the MyPermissions Console (learn more here) Text page via [facility] Paging/Directory I discussed the patient with Dr. Frazier and he agrees with the above plan. ER LOCKSTITCH Associated attestation - Sundeep Melvin MD - 05/28/2022 6:22 PM BINDER LOCKSTITCH Physician Attestation I have reviewed and discussed with the advanced practice provider their history, physical and plan for Salbador Justin. I did not participate in a shared visit by interviewing or examining the patient and this should be billed as an advanced practice provider only visit. Sundeep Melvin MD Date of Service (when I saw the patient): I did not personally see this patient today. documented in this encounter Consult Notes * Wade Bruno RN - 05/29/2022 11:40 AM CSTAssociated Order(s): CARE MANAGEMENT / SOCIAL WORK IP CONSULT Care Management Initial Consult General Information Assessment completed with: Patient, Type of CM/SW Visit: Initial Assessment Primary Care Provider verified and updated as needed: Yes Readmission within the last 30 days: Reason for Consult: care coordination/care conference, discharge planning Advance Care Planning: Communication Assessment Patient's communication style: spoken language (Niuean or Bilingual) Hearing Difficulty or Deaf: no Wear Glasses or Blind: no Cognitive Cognitive/Neuro/Behavioral: WDL Level of Consciousness: alert Arousal Level: opens eyes spontaneously Orientation: oriented x 4 Mood/Behavior: calm, cooperative Best Language: 0 - No aphasia Speech: clear, spontaneous Living Environment: People in home: alone Current living Arrangements: hotel/motel Able to return to prior arrangements: yes Family/Social Support: Care provided by: self Provides care for: no one Marital Status: Single Significant Other Description of Support System: Supportive, Involved Current Resources: Patient receiving home care services: No Community Resources: states friends and [employer] assist with hotel/motel payment. Equipment currently used at home: none Supplies currently used at home: none Employment/Financial: Employment Status: (plans to start work later this month) Financial Concerns: No concerns identified Lifestyle & Psychosocial Needs: Social Determinants of Health Tobacco Use: Not on file Alcohol Use: Not on file Financial Resource Strain: Not on file Food Insecurity: Not on file Transportation Needs: Not on file Physical Activity: Not on file Stress: Not on file Social Connections: Not on file Intimate Partner Violence: Not on file Depression: Not on file Housing Stability: Not on file Functional Status: Prior to admission patient needed assistance: Dependent ADLs:: Independent Dependent IADLs:: Transportation Mental Health Status: Mental Health Status: No Current Concerns Chemical Dependency Status: Chemical Dependency Status: No Current Concerns Values/Beliefs: Spiritual, Cultural Beliefs, Yazdanism Practices, Values that affect care: no Additional Information: Patient admitted for dental pain and concern of possible seizure. CM following for discharge planning. Met with patient at bedside. He reports he recently moved to [place] from [facility], 3 months ago. [facility] he is living at a hotel, [facility]. [facility] his ex-girlfriend lives near . Patient receives OP HD at [facility], chair time 7:30 am-11:30. [facility] HD center is nearby so he walks or his ex-girlfriend provides transportation. Patient reports having no financial concerns. He starts a new job in 2 weeks. He is independent in all ADLs. Discussed establishing care with a dentist and PCP of his choice. Patient would like [place] providers. CM assisted with scheduling f/u appointment with [facility] on June 05. Patient states he will call to schedule his appointment with a dentist. Patient given a list of dental clinic in [facility]. Patient plans to discharge to home/hotel. His ex will provide transportation. Wade Bruno RN Case Manager Inpatient Care Coordination [facility] [phone] Wade Bruno RN ER LOCKSTITCH * Dalton Mendieta MD - 05/28/2022 11:33 AM CSTAssociated Order(s): NEPHROLOGY IP CONSULT [facility] Nephrology Consultation Date of Admission: 05/27/2022 Assessment & Plan Salbador Justin is a 36 year old male with PMH ESRD on HD, seizures who was admitted on 05/27/2022 facial pain and possible seizure activity. ESRD on HD Dialyzes TTS at [facility]. Access is LUE AVF. Prescription details verified with RN over phone: 4h run, 2K/2.5Ca, 16 g 350 BFR, 5K loading bolus heparin without maintenance . Primary features editor is Dr. Concetta Burns. EDW 69.5 kg. - HD today, continue TTS schedule - renal diet Anemia of CKD Received mircera 50 mcg on 05/15. No further ZAINAB dosing needed while inpatient. - venofer 50 mg (did not receive today, if still inpatient will give ) CKD MBD - calcitriol 1.25 mcg TTS with dialysis - will check phos, if high can add phos binder (doesn't appear on NETWORK CABLER list) Hyperkalemia K elevated in setting of needing dialysis and possible seizure. Given lokelma overnight, will dialyze today. - can discontinue lokelma HTN Continue NETWORK CABLER lisinopril, minoxidil, carvedilol, amlodipine. PLAN: - HD today - discontinued lokelma - resume NETWORK CABLER BP meds - TTS schedule Plan discussed with primary team, Dr. Draper. Reason for Consult I was asked to see the patient for ESRD, hyperkalemia. Primary Care Physician Physician No Ref-Primary Chief Complaint Facial pain, possible seizure History is obtained from the patient and chart review. History of Present Illness Salbador Justin is a 36 year old male who presents with facial pain. He was seen in the ED recently for L dental and facial pain. He notes he again has severe L pentecostalism pain, even tender to touch. Hemay or may not have had a seizure prior to presentation but unclear. He has not missed any dialysis last HD 05/25. He denies shortness of breath, LE edema. Only symptom is L pentecostalism pain. Denies n/v. Seen during dialysis and tolerating it well. Past Medical History I have reviewed this patient's medical history and updated it with pertinent information if needed. No past medical history on file. Past Surgical History I have reviewed this patient's surgical history and updated it with pertinent information if needed. No past surgical history on file. Prior to Admission Medications Prior to Admission Medications Prescriptions Last Dose Informant Patient Reported? Taking? amLODIPine (NORVASC) 10 MG tablet 05/25/2022 Yes Yes Sig: Take 1 tablet by mouth daily benazepril (LOTENSIN) 20 MG tablet 05/25/2022 Yes Yes Sig: Take 1 tablet by mouth 2 times daily carvedilol (COREG) 12.5 MG tablet 05/25/2022 Yes Yes Sig: Take 12.5 mg by mouth 2 times daily (with meals) gabapentin (NEURONTIN) 100 MG capsule 05/25/2022 Yes Yes Sig: Take 100 mg by mouth At Bedtime hydrALAZINE (APRESOLINE) 50 MG tablet 05/25/2022 Yes Yes Sig: Take 50 mg by mouth 2 times daily minoxidil (LONITEN) 2.5 MG tablet 05/25/2022 Yes Yes Sig: Take 1 tablet by mouth daily omeprazole (PRILOSEC) [address] capsule 05/25/2022 Yes Yes Sig: TAKE 1 CAPSULE BY MOUTH ONCE DAILY FOR DYSPEPSIA Facility-Administered Medications: None Allergies Allergies Allergen Reactions ??? Hydrocodone Other reaction(s): Seizures ??? Morphine Anaphylaxis ??? Ibuprofen Other (See Comments) ??? Nsaids Other (See Comments) ??? Diphenhydramine Anxiety Social History I have reviewed this patient's social history and updated it with pertinent information if needed. Salbador Justin Family History I have reviewed this patient's family history and updated it with pertinent information if needed. No family history on file. Review of Systems The 10 point Review of Systems is negative other than noted in the HPI. Physical Exam Temp: 98.8 ??F (37.1 ??C) Temp src: Oral BP: (!) 200/114 Pulse: 101 Resp: 20 SpO2: 96 % O2 Device: None (Room air) Vital Signs with Ranges Temp: [98.3 ??F (36.8 ??C)-99.2 ??F (37.3 ??C)] 98.8 ??F (37.1 ??C) Pulse: [84-110] 101 Resp: [18-22] 20 BP: (136-217)/(79-139) 200/114 SpO2: [95 %-100 %] 96 % 155 lbs 0 oz GENERAL: appears in pain HEENT: MMM, tenderness to L pentecostalism CV: RRR, no murmurs RESP: Clear bilaterally with good efforts MUSCULOSKELETAL: extremities nl - no edema NEURO: Strength normal and symmetric. PSYCH: mood good, affect appropriate ACCESS: LUE AVF with palpable thrill and audible bruit Data BMP Recent Labs Lab 05/27/22200605/27/22 1843 05/27/22 1501 NA -- -- 136 POTASSIUM 6.4* 6.2* 6.4* CHLORIDE -- -- 92* CLAIRE -- -- 9.5 CO2 -- -- 16* BUN -- -- 43.8* CR -- -- 13.78* GLC -- -- 79 Phos@[email or web address](phos:4) CBC) Recent Labs Lab 05/27/22 1501 WBC 8.2 HGB 10.6* HCT 33.5* MCV 89 PLT 313 Recent Labs Lab 05/27/22 1501 AST 23 ALT 13 ALKPHOS 51 BILITOTAL 0.4 No lab results found in last 7 days. No results found for: D2VIT, D3VIT, DTOT Recent Labs Lab 05/27/22 1501 HGB 10.6* HCT 33.5* MCV 89 No results for input(s): PTHI in the last 168 hours. Dalton Mendieta MD [facility] - Nephrology [phone] ER LOCKSTITCH * Elder John MD - 05/28/2022 9:20 AM CST Images from the original note were not included. Neurology Consult Note [facility] [May 28, 2022] Admission Date: 05/27/2022 Hospital Day: 2 Code Status: Full Code Patient: Salbador Justin : 1985 CC: Chief Complaint Patient presents with ??? Dental Pain Consult Request: Referring Provider: Sundeep Melvin MD Indication for Consultation: Which Neurology Group will follow this patient? [facility] Patient to be seen Routine within 24 hrs Reason for Consult reported seizure activity, h/o seizure no longer on antiepeleptics Note: Specific question for analytical consultant Domestic Housekeeper may enter orders Yes Requesting provider? Hospitalist (if different from attending physician) Primary Care Provider: No Ref-Primary, Physician HPI: Salbador Justin is a 36 year old yo gentleman admitted for hyperkalemia in the setting of ESRD, on dialysis. Despite diagnoses of severe hypertension and ESRD requiring dialysis three times weekly, he has not established care with a PCP in [place] despite moving here from [facility] three months ago. He has, however, received care on several occasions in the ER in [place], with initial ER encounter noted in February 2022. He reports a local renal specialist is prescribing his dialysis. He reports several spells prior to admission to the hospital, characterized by feeling lightheaded/presyncopal, tremulous, diaphoretic when standing. If these symptoms develop he lies down on the ground. He may not be able to speak, but he is aware of people around him, and can communicate with hand gestures. He reports no clear post-ictal period. He denies a history of childhood epilepsy or febrile seizures. He reports a spell last night after admission to the third floor. He contacted the nurse and said he was going to have a seizure, he went unresponsive for ~45 seconds, then came to, reporting that he was back. He reports being diagnosed with epilepsy by a neurologist in [facility], with reported abnormal EEG. He was reportedly prescribed a medication for this, name not recalled, but hasn't taken it because he dosen't take medicines very well. He reports that the medication was prescribed about a year ago. A complete review of symptoms was performed including vascular, infectious, cardiovascular, pulmonary, gastrointestinal, endocrinological, hematologic, dermatologic, musculoskeletal, and neurological. All were normal except as above. CURRENT PROBLEM LIST: Patient Active Problem List Diagnosis Date Noted ??? Hyperkalemia 05/27/2022 Priority: Medium ??? Jaw pain 05/27/2022 Priority: Medium ??? Spell of altered consciousness 05/27/2022 Priority: Medium ??? Headache 05/27/2022 Priority: Medium PAST MEDICAL HISTORY: ALLERGIES: Allergies Allergen Reactions ??? Hydrocodone Other reaction(s): Seizures ??? Morphine Anaphylaxis ??? Ibuprofen Other (See Comments) ??? Nsaids Other (See Comments) ??? Diphenhydramine Anxiety Tobacco: History Smoking Status ??? Not on file Smokeless Tobacco ??? Not on file Alcohol: Social History Substance and Sexual Activity Alcohol use: Not on file MEDICATIONS: CURRENTLY SCHEDULED MEDICATIONS ??? sodium chloride 0.9% 250 mL Intravenous Once in dialysis/CRRT ??? sodium chloride 0.9% 300 mL Hemodialysis Machine Once ??? amLODIPine 10 mg Oral Daily ??? amoxicillin-clavulanate 1 tablet Oral Q12H [facility] (12/15) ??? carvedilol 12.5 mg Oral BID w/meals ??? gabapentin 100 mg Oral At Bedtime ??? heparin 500 Units Hemodialysis Machine OR IV Push Once in dialysis/CRRT ??? sodium chloride (PF) 0.9% 10 mL Intracatheter Once in dialysis/CRRT Followed by ??? heparin 1.3-2.6 mL Intracatheter Once in dialysis/CRRT ??? sodium chloride (PF) 0.9% 10 mL Intracatheter Once in dialysis/CRRT Followed by ??? heparin 1.3-2.6 mL Intracatheter Once in dialysis/CRRT ??? hydrALAZINE 50 mg Oral BID ??? lisinopril 20 mg Oral Daily ??? minoxidil 2.5 mg Oral Daily ??? pantoprazole 40 mg Oral QAM AC ??? sodium chloride (PF) 3 mL Intracatheter Q8H ??? sodium zirconium cyclosilicate 10 g Oral Q8H HOME MEDICATIONS (Not in a hospital admission) MEDICAL HISTORY No past medical history on file. SURGICAL HISTORY No past surgical history on file. FAMILY HISTORY No family history on file. SOCIAL HISTORY Social History Socioeconomic History ??? Marital status: Single GENERAL EXAMINATION: He is a middle-aged, well-developed, well-nourished man, 5' 4 and 155 lbs 0 oz. Blood pressure is 177/100. His peripheral pulses are intact at 93 and regular. His conjunctivae are normal. His oropharynx is without lesions or inflammation. Skin examination is unremarkable. He has no pretibial edema, rashes, or unusual lesions. Nail examination shows no clubbing, cyanosis, or deformities. His respi ratory examination is unremarkable, with rate of 18, unlabored. He is afebrile. Height: 162.6 cm (5' 4) Temp: 99.2 ??F (37.3 ??C) Weight: 70.3 kg (155 lb) Temp src: Temporal BP: (!) 177/100 Estimated body mass index is 26.61 kg/m?? as calculated from the following: Height as of this encounter: 1.626 m (5' 4). Weight as of this encounter: 70.3 kg (155 lb). Resp: 18 SpO2: 95 % O2 Device: None (Room air) Blood Pressure: BP Readings from Last 3 Encounters: 05/28/22 (!) 177/100 04/14/22 (!) 175/104 T24??: Temp (24hrs), Av.7 ??F (37.1 ??C), Min:98.3 ??F (36.8 ??C), Max:99.2 ??F (37.3 ??C) NEUROLOGICAL EXAMINATION Mental Status: He is sleepy but arouseable. His speech is spontaneous and fluent. He has no aphasiaor dysarthria. Memory/recollection is poor. Station and Gait: He reports no imbalance with ambulation. Skull and Spine: His head is atraumatic. He denies cervicalgia. Cranial Nerves: Visual jolley are full. Extraocular movements are intact. He has no nystagmus. His face is symmetric at rest and with movement. He has no ptosis. Hearing is intact. Motor: Muscle bulk is preserved. He has no focal muscle atrophy or focal weakness in his arms or legs. Sensory: Sensation is symmetric in his arms and legs. Coordination: He has no resting, postural, or action tremor. . LABORATORY RESULTS SMA-7: Recent Labs Lab Test 05/27/22200605/27/22 1843 05/27/22 1501 04/14/22 1259 NA -- -- 136 136 POTASSIUM 6.4* 6.2* 6.4* 5.2 CHLORIDE -- -- 92* 95* CO2 -- -- 16* 23 GLC -- -- 79 81 BUN -- -- 43.8* 52.0* CR -- -- 13.78* 13.33* CLAIRE -- -- 9.5 9.7 Recent Labs Lab Test 05/27/22 1501 MAG 2.0 No results for input(s): PHOS in the last 97476 hours.0.7 mg (actual weight) CMP: Recent Labs Lab 05/27/22 1501 PROTTOTAL 7.9 ALBUMIN 5.0 ALKPHOS 51 AST 23 ALT 13 BILITOTAL 0.4 LIPASE 37 CBC: Recent Labs Lab 05/27/22 1501 WBC 8.2 RBC 3.76* HGB 10.6* HCT 33.5* MCV 89 PLT 313 Lipase: Lab Results Component Value Date LIPASE 37 05/27/2022 HgA1c: No results found for: A1C CK: No results found for: CKTOTAL Vitamin D: No results for input(s): VITDT in the last 168 hours. RPR: @LABALLVALUES(RPR:1)@ ESR: No lab results found. INR: No lab results found in last 7 days. Ethanol Level: @LABALLVALUES(ETOH:1)@ IMAGING RESULTS CT Abdomen Pelvis w/o Contrast Result Date: 05/27/2022 CT ABDOMEN PELVIS WITHOUT CONTRAST 05/27/2022 4:04 PM HISTORY: Upper abdominal pain TECHNIQUE: CT scan obtained of the abdomen, and pelvis without IV contrast. Radiation dose for this scan was reducedusing automated exposure control, adjustment of the mA and/or kV according to patient size, or iterative reconstruction technique. COMPARISON:None available. FINDINGS: Lower chest:Lung bases are clear. Abdomen/pelvis:Limited evaluation of the abdominal organs due to lack of intravenous contrast, within this limitation, there is; Hepatobiliary: Approximately 1.2 cm hypoattenuating focus in hepaticsegment 8 (serious 2 image 18). Otherwise, the unenhanced liver and gallbladder are grossly unremarkable. Pancreas: The unenhanced pancreas is grossly unremarkable. Spleen: No splenomegaly. Adrenal glands: Mild diffuse left adrenal gland thickening. No right adrenal nodule. Kidneys: No radiodense kidney/ureteral stones or hydronephrosis in the kidney. Bowel: No abnormally dilated bowel loops. Theappendix is visualized and appears normal. Colonic diverticulosis predominantly of the sigmoid colon without CT evidence of acute diverticulitis. Peritoneum: No significant free fluid in the abdomen or pelvis. No free peritoneal portal venous gas. Pelvic organs: Mild diffuse urinary bladder wall thickening, nonspecific, can be seen with under distention versus chronic cystitis. Vascular: Scattered atherosclerotic vascular calcification of the abdominal aorta and iliac vessels. Lymph nodes: No significant abdominopelvic lymphadenopathy. Bones and soft tissue: No suspicious osseous lesion. IMPRESSION: Within the limitation of noncontrast exam, there is; 1. No evidence of acute pathology in the abdomen and pelvis. 2. Colonic diverticulosis without CT evidence of acute diverticulitis. 3.Approximately 1.3 cm hypodense focus in the right hepatic lobe, indeterminate, could represent hepatic hemangioma versus other hepatic lesions, can be further evaluated with contrast enhanced MRI on n onemergent basis. ANJELICA MUSE MD CT Head w/o Contrast Result Date: 05/27/2022 CT SCAN OF THE HEAD WITHOUT CONTRAST 05/27/2022 4:04 PM HISTORY: Seizures, headache, left-sided jaw pain TECHNIQUE: Axial images of the head and coronal reformations without IV contrast material. Radiation dose for this scan was reduced using automated exposure control, adjustment of the mA and/or kV according to patient size, or iterative reconstruction technique. COMPARISON: None. FINDINGS: There is no evidence of intracranial hemorrhage, mass, acute infarct or anomaly. Mild prominence of the cerebral sulci and ventricles, compatible with minimal/mild generalized cerebral volume loss. There appear to be possible subtle mild patchy areas of hypoattenuation in the cerebral white matter, which are nonspecific. Differential considerations are broad but would include early mild chronic small vessel ischemic change, demyelinating disease, sequela of previous infectious/inflammatory process, etc. There is no extra- axial fluid collection or mass effect/herniation. Mild to moderate polypoid mu cosal thickening in the left maxillary sinus. The other visualized paranasal sinuses are clear. Themastoid and middle ear cavities appear grossly clear. The bony calvarium and bones of the skull base appear intact. IMPRESSION: 1. No acute intracranial hemorrhage, extra axial fluid collection, or mass effect. 2. Possible subtle patchy nonspecific hypoattenuation in the cerebral white matter, as described. 3. Mild to moderate polypoid mucosal thickening in the left maxillary sinus. ALIZA SIEGEL MD Recent Results (from the past 24 hour(s)) CT Abdomen Pelvis w/o Contrast Narrative CT ABDOMEN PELVIS WITHOUT CONTRAST 05/27/2022 4:04 PM HISTORY: Upper abdominal pain TECHNIQUE: CT scan obtained of the abdomen, and pelvis without IV contrast. Radiation dose for this scan was reduced using automated exposure control, adjustment of the mA and/or kV according to patient size, or iterative reconstruction technique. COMPARISON:None available. FINDINGS: Lower chest:Lung bases are clear. Abdomen/pelvis:Limited evaluation of the abdominal organs due to lack of intravenous contrast, within this limitation, there is; Hepatobiliary: Approximately 1.2 cm hypoattenuating focus in hepatic segment 8 (serious 2 image 18). Otherwise, the unenhanced liver and gallbladder are grossly unremarkable. Pancreas: The unenhanced pancreas is grossly unremarkable. Spleen: No splenomegaly. Adrenal glands: Mild diffuse left adrenal gland thickening. No right adrenal nodule. Kidneys: No radiodense kidney/ureteral stones or hydronephrosis in the kidney. Bowel: No abnormally dilated bowel loops. The appendix is visualized and appears normal. Colonic diverticulosis predominantly of the sigmoid colon without CT evidence of acute diverticulitis. Peritoneum: No significant free fluid in the abdomen or pelvis. No free peritoneal portal venous gas. Pelvic organs: Mild diffuse urinary bladder wall thickening, nonspecific, can be seen with under distention versus chronic cystitis. Vascular: Scattered atherosclerotic vascular calcification of the abdominal aorta and iliac vessels. Lymph nodes: No significant abdominopelvic lymphadenopathy. Bones and soft tissue: No suspicious osseous lesion. Impression IMPRESSION: Within the limitation of noncontrast exam, there is; 1. No evidence of acute pathology in the abdomen and pelvis. 2. Colonic diverticulosis without CT evidence of acute diverticulitis. 3. Approximately 1.3 cm hypodense focus in the right hepatic lobe, indeterminate, could represent hepatic hemangioma versus other hepatic lesions, can be further evaluated with contrast enhanced MRI on nonemergent basis. ANJELICA MUSE MD CT Head w/o Contrast Narrative CT SCAN OF THE HEAD WITHOUT CONTRAST 05/27/2022 4:04 PM HISTORY: Seizures, headache, left-sided jaw pain TECHNIQUE: Axial images of the head and coronal reformations without IV contrast material. Radiation dose for this scan was reduced using automated exposure control, adjustment of the mA and/or kV according to patient size, or iterative reconstruction technique. COMPARISON: None. FINDINGS: There is no evidence of intracranial hemorrhage, mass, acute infarct or anomaly. Mild prominence of the cerebral sulci and ventricles, compatible with minimal/mild generalized cerebral volume loss. There appear to be possible subtle mild patchy areas of hypoattenuation in the cerebral white matter, which are nonspecific. Differential considerations are broad but would include early mild chronic small vessel ischemic change, demyelinating disease, sequela of previous infectious/inflammatory process, etc. There is no extra-axial fluid collection or mass effect/herniation. Mild to moderate polypoid mucosal thickening in the left maxillary sinus. The other visualized paranasal sinuses are clear. The mastoid and middle ear cavities appear grossly clear. The bony calvarium and bones of the skull base appear intact. Impression IMPRESSION: 1. No acute intracranial hemorrhage, extra axial fluid collection, or mass effect. 2. Possible subtle patchy nonspecific hypoattenuation in the cerebral white matter, as described. 3. Mild to moderate polypoid mucosal thickening in the left maxillary sinus. ALIZA SIEGEL MD EKG: ASSESSMENT ESRD. Hypertension. Hyperkalemia. Anemia. Facial pain from dental abscesses. Spells, with reported diagnosis of epilepsy. His description of the spells is not consistent with generalized epilepsy. His observed spell last night is not consistent with a generalized seizure. Hisonset of lightheadedness while standing, tremulousness, and diaphoresis, improved lying down is more consistent with a cardiogenic problem, more likely hypotension than hypertension. Medical non-compliance. RECOMMENDATIONS Continue supportive therapy. I am not recommending starting medication for his reported spells. If a spell recurs I recommend vitals be checked to rule out tachycardia/bradycrdia or severe hypertension or hypotension. Please obtain his prior records regarding previously prescribed medication in [facility], andresults of his EEG performed in [place]. I recommend outpatient evaluation regarding his report of the diagnosis of epilepsy. Please call if there are further questions. Elder John M.D., Ph.D. [facility] ER LOCKSTITCH documented in this encounter ED Notes * Shell Blanchard RN - 05/27/2022 8:18 PM CST Report given to Mor TRIPLETT ER LOCKSTITCH * Shell Blanchard RN - 05/27/2022 7:23 PM CST DATE: 05/27/2022 TIME OF RECEIPT FROM LAB: 1922 LAB TEST: potassium LAB VALUE: 6.2 RESULTS GIVEN WITH READ-BACK TO (PROVIDER): Brooks Finnegan PA-C TIME LAB VALUE REPORTED TO PROVIDER: expected value Patient needs dialysis ER LOCKSTITCH * Diane Causey RN - 05/27/2022 6:23 PM CST [facility] ED Nurse Handoff Report Salbador Justin is a 36 year old male ED Chief complaint: Dental Pain . ED Diagnosis: Final diagnoses: Hyperkalemia Jaw pain Headache Spell of altered consciousness Allergies: Allergies Allergen Reactions ??? Hydrocodone Other reaction(s): Seizures ??? Morphine Anaphylaxis ??? Ibuprofen Other (See Comments) ??? Nsaids Other (See Comments) ??? Diphenhydramine Anxiety Code Status: Full Code Activity level - Baseline/Home: Independent. Activity Level - Current: Stand by Assist. Lift room needed: No. Bariatric: No Slabbing Machine Operator Needed: No Isolation: No. Infection: Not Applicable. Vital Signs: Vitals: 05/27/22 1348 05/27/22 1630 05/27/22 1731 BP: (!) 208/132 (!) 203/137 (!) 217/136 Pulse: 89 110 109 Resp: 22 Temp: 98.3 ??F (36.8 ??C) TempSrc: Temporal SpO2: 100% 99% 98% Weight: 70.3 kg (155 lb) Height: 1.626 m (5' 4) Cardiac Rhythm: , Pain level: Patient confused: No. Patient Falls Risk: Yes. Elimination Status: Has voided Patient Report - Initial Complaint: dental caries. Focused Assessment: Pt has a hx of epilepsy has not taken his medications for months. C/o dental pain for 2 days. Pain is left upper tooth. Pt reports 4 seizures in the past 24 hours, states it is due to the pain. Pt also has kidney failure, has dialysis Friday, Friday and . Tests Performed: labs, imaging. Abnormal Results: Labs Ordered and Resulted from Time of ED Arrival to Time of ED Departure COMPREHENSIVE METABOLIC PANEL - Abnormal Result Value Sodium 136 Potassium 6.4 (*) Chloride 92 (*) Carbon Dioxide (CO2) 16 (*) Anion Gap 28 (*) Urea Nitrogen 43.8 (*) Creatinine 13.78 (*) Calcium 9.5 Glucose 79 Alkaline Phosphatase 51 AST 23 ALT 13 Protein Total 7.9 Albumin 5.0 Bilirubin Total 0.4 GFR Estimate 4 (*) TROPONIN T, HIGH SENSITIVITY - Abnormal Troponin T, High Sensitivity 68 (*) CBC WITH PLATELETS AND DIFFERENTIAL - Abnormal WBC Count 8.2 RBC Count 3.76 (*) Hemoglobin 10.6 (*) Hematocrit 33.5 (*) MCV 89 MCH 28.2 MCHC 31.6 RDW 13.9 Platelet Count 313 % Neutrophils 71 % Lymphocytes 17 % Monocytes 8 % Eosinophils 3 % Basophils 1 % Immature Granulocytes 0 NRBCs per 100 WBC 0 Absolute Neutrophils 5.9 Absolute Lymphocytes 1.4 Absolute Monocytes 0.6 Absolute Eosinophils 0.2 Absolute Basophils 0.1 Absolute Immature Granulocytes 0.0 Absolute NRBCs 0.0 MAGNESIUM - Normal Magnesium 2.0 LACTIC ACID WHOLE BLOOD - Normal Lactic Acid 1.[address] Head w/o Contrast Final Result IMPRESSION: 1. No acute intracranial hemorrhage, extra axial fluid collection, or mass effect. 2. Possible subtle patchy nonspecific hypoattenuation in the cerebral white matter, as described. 3. Mild to moderate polypoid mucosal thickening in the left maxillary sinus. ALIZA SIEGEL MD CT Abdomen Pelvis w/o Contrast Final Result IMPRESSION: Within the limitation of noncontrast exam, there is; 1. No evidence of acute pathology in the abdomen and pelvis. 2. Colonic diverticulosis without CT evidence of acute diverticulitis. 3. Approximately 1.3 cm hypodense focus in the right hepatic lobe, indeterminate, could represent hepatic hemangioma versus other hepatic lesions, can be further evaluated with contrast enhanced MRI on nonemergent basis. ANJELICA MUSE MD . Treatments provided: see MAR Family Comments: N/A OBS brochure/video discussed/provided to patient: Yes ED Medications: Medications sodium zirconium cyclosilicate (LOKELMA) packet 10 g (10 g Oral Given 1/30/23 1746) HYDROmorphone (PF) (DILAUDID) injection 0.5 mg (has no administration in time range) 0.9% sodium chloride BOLUS (1,000 mLs Intravenous New Bag 05/27/22 1500) HYDROmorphone (DILAUDID) injection 0.2 mg (0.2 mg Intravenous Given 05/27/22 1500) HYDROmorphone (PF) (DILAUDID) injection 0.5 mg (0.5 mg Intravenous Given 05/27/22 1636) calcium gluconate 1 g in 50 mL sodium chloride intermittent infusion (premix) (1 g Intravenous Given 05/27/22 1650) furosemide (LASIX) injection 40 mg (40 mg Intravenous Given 05/27/22 1723) docusate (COLACE) 50 MG/5ML liquid 100 mg (100 mg Oral Given 05/27/22 1743) labetalol (NORMODYNE/TRANDATE) injection 10 mg (10 mg Intravenous Given 05/27/22 1742) Drips infusing: No For the majority of the shift, the patient's behavior Green. Interventions performed were N/A. Sepsis treatment initiated: No Patient tested for COVID 19 prior to admission: NO ED Nurse Name/Phone Number: Abena Leonard RN, 6:23 PM RECEIVING UNIT ED HANDOFF REVIEW Above ED Nurse Handoff Report was reviewed: yes Reviewed by: Diane Causey RN on May 28, 2022 at 12:46 PM ER LOCKSTITCH * Yoon Lugo RN - 05/27/2022 1:50 PM CST Pt has a hx of epilepsy has not taken his medications for months. C/o dental pain for 2 days. Pain is left upper tooth. Pt reports 4 seizures in the past 24 hours, states it is due to the pain. Pt also has kidney failure, has dialysis Friday, Friday and . Triage Assessment Row Name 05/27/22 9366 Triage Assessment (Adult) Airway WDL WDL Respiratory WDL Respiratory WDL WDL Skin Circulation/Temperature WDL Skin Circulation/Temperature WDL WDL Cardiac WDL Cardiac WDL WDL Peripheral/Neurovascular WDL Peripheral Neurovascular WDL WDL Cognitive/Neuro/Behavioral WDL Cognitive/Neuro/Behavioral WDL WDL ER LOCKSTITCH * Brooks Finnegan PA-C - 05/27/2022 1:24 PM CST History Chief Complaint: Dental Pain HPI Salbador Justin is a 36 year old male with a history of ESRD on dialysis and hypertension who presents with right upper dental pain and pain in the pentecostalism and eye for the past 2 days. Took Tylenol without relief. Last dose 1000 this morning. Reports 4 seizures in last 24 hours. Prior to that his last seizure was one week ago in response to an allergy to benadryl. He is not taking prescribed seizure medications. Reports vomiting with each seizure. He can feel seizures coming on and lays on the ground prior to their start. Denies hitting his head, tongue biting, or incontinence. Reports intermittent epigastric abdominal pain. No change in stools or urine. No fever, chills, chest pain, shortness of breath, or leg swelling. No missed dialysis sessions. Notes hx of peptic ulcers, treated withomeprazole. On further questioning, patient describes episodes as lightheadedness, and then he would lay himself down and he could hear things, but could not respond. No incontinence, no tongue biting. Independent Historian: Significant other Review of External Notes: None ROS: Review of Systems Constitutional: Negative for chills and fever. HENT: Positive for dental problem. Respiratory: Negative for shortness of breath. Cardiovascular: Negative for chest pain and leg swelling. Gastrointestinal: Positive for abdominal pain and vomiting. Negative for diarrhea. All other systems reviewed and are negative. Allergies: Hydrocodone Morphine Ibuprofen Nsaids Diphenhydramine Medications: Gabapentin Lotensin Coreg Celexa Apresoline Loniten Prilosec Aldactone Past Medical History: Self-reported epilepsy Hypertension ESRD Social History: The patient presents to the ED alone via private vehicle. PCP: No Ref-Primary, Physician Physical Exam Patient Vitals for the past 24 hrs: BP Temp Temp src Pulse Resp SpO2 Height Weight 05/27/22 1915 (!) 191/127 -- -- 101 -- 98 % -- -- 05/27/22 1900 (!) 195/139 -- -- 105 -- 99 % -- -- 05/27/22 1759 (!) 203/133 -- -- 96 -- 99 % -- -- 05/27/22 1731 (!) 217/136 -- -- 109 -- 98 % -- -- 05/27/22 1630 (!) 203/137 -- -- 110 -- 99 % -- -- 05/27/22 1348 (!) 208/132 98.3 ??F (36.8 ??C) Temporal 89 22 100 % 1.626 m (5' 4) 70.3 kg (155 lb) Physical Exam Constitutional: Pleasant. Cooperative. Eyes: Pupils equally round and reactive HENT: No scalp hematoma. No scalp tenderness. No bony step-off or crepitus. No facial bone tenderness or instability. Cerumen impaction to left ear, Right TM normal. Left TM normal after removal. No periorbital ecchymosis or Evans signs. Oropharynx is normal with moist mucus membranes. No evidencefor intraoral injury. TTP to left upper molar, no evidence for abscess. Cardiovascular: Regular rate and rhythm and without murmurs. Respiratory: Normal respiratory effort, lungs are clear bilaterally. GI: Abdomen is soft, non-tender, non-distended. No guarding, rebound, or rigidity. Musculoskeletal: No midline cervical, thoracic, or lumbar tenderness. Normal painless ROM of the neck. No clavicular tenderness. No upper extremity tenderness. No lower extremity tenderness. Normal ROM of extremities. No tenderness with compression of the rib cage or pelvis. Skin: No rashes. No lacerations or abrasions noted. Neurologic: Cranial nerves II-XII intact, normal cognition, no focal deficits. Alert and oriented x3. 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 Normal leg raise. Sensation to light touch intact throughout all 4 extremities. 5/5 strength with dorsiflexion and plantarflexion bilaterally. GCS 15 Psychiatric: Normal affect. Nursing notes and vital signs reviewed. Emergency Department Course ECG: ECG results from 05/27/22 EKG 12-lead, tracing only Value Systolic Blood Pressure Diastolic Blood Pressure Ventricular Rate 101 Atrial Rate 101 VA Interval 144 QRS Duration 104 QT 380 QTc 492 P [place] 66 R AXIS 80 T [place] 57 Interpretation ECG Sinus tachycardia with occasional Premature ventricular complexes Possible Left atrial enlargement Borderline ECG No previous ECGs available Imaging: CT Head w/o Contrast Final Result IMPRESSION: 1. No acute intracranial hemorrhage, extra axial fluid collection, or mass effect. 2. Possible subtle patchy nonspecific hypoattenuation in the cerebral white matter, as described. 3. Mild to moderate polypoid mucosal thickening in the left maxillary sinus. ALIZA SIEGEL MD CT Abdomen Pelvis w/o Contrast Final Result IMPRESSION: Within the limitation of noncontrast exam, there is; 1. No evidence of acute pathology in the abdomen and pelvis. 2. Colonic diverticulosis without CT evidence of acute diverticulitis. 3. Approximately 1.3 cm hypodense focus in the right hepatic lobe, indeterminate, could represent hepatic hemangioma versus other hepatic lesions, can be further evaluated with contrast enhanced MRI on nonemergent basis. ANJELICA MUSE MD Report per radiology Laboratory: Labs Ordered and Resulted from Time of ED Arrival to Time of ED Departure COMPREHENSIVE METABOLIC PANEL - Abnormal Result Value Sodium 136 Potassium 6.4 (*) Chloride 92 (*) Carbon Dioxide (CO2) 16 (*) Anion Gap 28 (*) Urea Nitrogen 43.8 (*) Creatinine 13.78 (*) Calcium 9.5 Glucose 79 Alkaline Phosphatase 51 AST 23 ALT 13 Protein Total 7.9 Albumin 5.0 Bilirubin Total 0.4 GFR Estimate 4 (*) TROPONIN T, HIGH SENSITIVITY - Abnormal Troponin T, High Sensitivity 68 (*) CBC WITH PLATELETS AND DIFFERENTIAL - Abnormal WBC Count 8.2 RBC Count 3.76 (*) Hemoglobin 10.6 (*) Hematocrit 33.5 (*) MCV 89 MCH 28.2 MCHC 31.6 RDW 13.9 Platelet Count 313 % Neutrophils 71 % Lymphocytes 17 % Monocytes 8 % Eosinophils 3 % Basophils 1 % Immature Granulocytes 0 NRBCs per 100 WBC 0 Absolute Neutrophils 5.9 Absolute Lymphocytes 1.4 Absolute Monocytes 0.6 Absolute Eosinophils 0.2 Absolute Basophils 0.1 Absolute Immature Granulocytes 0.0 Absolute NRBCs 0.0 POTASSIUM - Abnormal Potassium 6.2 (*) MAGNESIUM - Normal Magnesium 2.0 LACTIC ACID WHOLE BLOOD - Normal Lactic Acid 1.6 LIPASE - Normal Lipase 37 POTASSIUM Emergency Department Course & Assessments: ED Course as of 05/27/221927May 27, 2022 3358 I obtained the history and examined the patient as noted above. 1448 I rechecked and updated the patient. 1630 I rechecked and updated the patient regarding plan for admission. 165 I rechecked the patient with Dr. Graff's assistance. Interventions: Medications sodium zirconium cyclosilicate (LOKELMA) packet 10 g (10 g Oral Given 05/27/22 174) HYDROmorphone (PF) (DILAUDID) injection 0.5 mg (has no administration in time range) amoxicillin (AMOXIL) capsule 500 mg (has no administration in time range) 0.9% sodium chloride BOLUS (1,000 mLs Intravenous New Bag 05/27/22 1500) HYDROmorphone (DILAUDID) injection 0.2 mg (0.2 mg Intravenous Given 05/27/22 1500) HYDROmorphone (PF) (DILAUDID) injection 0.5 mg (0.5 mg Intravenous Given 05/27/22 163) calcium gluconate 1 g in 50 mL sodium chloride intermittent infusion (premix) (1 g Intravenous Given 05/27/22 165) furosemide (LASIX) injection 40 mg (40 mg Intravenous Given 05/27/22 172) docusate (COLACE) 50 MG/5ML liquid 100 mg (100 mg Oral Given 05/27/22 174) labetalol (NORMODYNE/TRANDATE) injection 10 mg (10 mg Intravenous Given 05/27/22 174) Amoxicillin 500mg PO Consultations/Discussion of Management or Tests: [address] Mendieta, features editor, regarding the patient. [address] John, neurology, regarding the patient. Social Determinants of Health affecting care: Healthcare Access/Compliance Just moved to the area recently and does not have good healthcare access Disposition: The patient was admitted to the hospital. Impression & Plan Medical Decision Making: Salbador Justin is a 36 year old male with a history of ESRD on dialysis who presents to ED for evaluation of facial pain/headache, concern for seizures, as well as epigastric abdominal pain. 1. Facial pain/headache - Patient notes a history of dental issues and is concerned that he has a dental infection. I did not visualize any evidence for abscess at this time. Patient does have cerumen impaction to left ear, will work on removing this to evaluate for OM. No evidence for mastoiditis,OE. Does not appear to be consistent with trigeminal neuralgia, cluster headache. Pain actively managed as above. I suspect this is dental in etiology at this time. Will initiate antibiotics for dental coverage. 2. Seizures - Unclear that these are seizures. Patient notes history of epilepsy and being on seizure med in past, however no evidence for this in patient's chart. No tongue laceration, incontinence,no lactic acidosis noted here. Patient describes episodes today as prodrome of lightheadedness for which he laid himself down and become unresponsive. He notes during these episodes he can hear people but not communicate. This does not sound like like a classic epileptic seizure. Etiology of these transient episodes of altered consciousness is unclear. Did consider syncope due to arrhythmia, anemia, SAH, vasovagal episodes due to pain. CT of head is unremarkable. Case discussed with neuro, who did not feel that initiation of Keppra or MRI was indicated acutely. 3. Epigastric pain - DDx included atypical ACS, GERD, PUD, pancreatitis, biliary pathology, amongstothers. Work up obtained as above. Etiology of patient's symptoms is unclear at this time. No evidence for acute life-threatening process identified based upon work up as above. Lab work notable for hyperkalemia however. Calcium gluconate provided as well as lasix. Lasix to help with patient's BPs as well. Labetalol provided to help with BPs as well. Case discussed with nephrology, who will run patient through dialysis tomorrow morning. Patient in agreement for admission. Case discussed with hospitalist, who agreed to admit the patient. All questions answered. Patient admitted in stable condition. Diagnosis: ICD-10-CM 1. Hyperkalemia E87.5 2. Jaw pain R68.84 3. Headache R51.9 4. Spell of altered consciousness R40.4 5. Abdominal pain, epigastric R10.13 6. HTN (hypertension) I10 Scribe Disclosure: I, Sri Elliott, am serving as a scribe at 4:02 PM on 05/27/2022 to document services personally performed by Brooks Finnegan PA-C based on my observations and the provider's statements to me. 05/27/2022 Brooks Finnegan PA-C This record was created at least in part using electronic voice recognition software, so please excuse any typographical errors. Brooks Finnegan PA-C 05/27/22 1825 Brooks Finnegan PA-C 05/27/22 192 Brooks Finnegan PA-C 05/27/22 1934 ER LOCKSTITCH documented in this encounter Miscellaneous Notes * Plan of Care - Debi Nicholson RN - 05/29/2022 2:43 PM CST End of Shift Summary. For vital signs and complete assessments, please see documentation flowsheets. Pertinent assessments: AOx4. Reports pain to L side of face. L cheek is swollen. LS clear, sats high 90s on room air. Urinating without difficulty. Appetite fair. Major Shift Events: Discharge home Plan (Upcoming Events): Discharge home, attend next scheduled outpatient dialysis appt. Make appt with PCP for follow up labs and continuation of care. Discharge/Transfer Needs: PCP appt Discharge instructions reviewed, questions answered. PIV removed. Pt assisted to door with wheelchair transport. Goal Outcome Evaluation: Adequate for discharge ER LOCKSTITCH * Plan of Care - Pau Damico RN - 05/29/2022 6:40 AM CST VSS ex elevated BP. No interventions needed per order. A/ox4. This morning pt began complaining of severe face and dental pain. Pt was tearful and tremulous from pain. Gave PRN tylenol and IV dilaudid 0.3 mg and applied ice with improvement in pain per pt. Pt produces urine still. Fistula on L arm WDL. PIV on R. Discharge pending neurology assessment and control on tooth pain. ER LOCKSTITCH * Plan of Care - Promise Watts RN - 05/28/2022 11:42 PM CST Goal Outcome Evaluation: Admitting Diagnosis: Seizures/ jaw pain. Pertinent History: ESRD on dialysis, HTN, HD T//Sat. Living Situation: Home Pain plan: c/o face/Jaw pain prn meds given. Mobility: assistance, stand-by Baseline activity:Independent. Alarms/Safety: steady gait. LDA's: PIV. Pertinent test results: K+ 3.3, Mg+ 2.0. Consults: Neurology following. Abnormals/Pending: none Other Cares/Comments: A & O, VSS, LS clear, O2 96% RA. IV abx given. Dialysis today. Seizure pad in place. Discharge Disposition: possible discharge tomorrow. Discharge Time: TBD. ER LOCKSTITCH * Utilization Review - Prisca Bain MD - 05/28/2022 1:59 PM CST Admission Status; Secondary Review Determination Admission Date: 05/27/2022 2:02 PM Under the authority of the Utilization Management Committee, the utilization review process indicated a secondary review on the above patient. The review outcome is based on review of the medical records, discussions with staff, and applying clinical experience noted on the date of the review. (x) Inpatient Status Appropriate - This patient's medical care is consistent with medical management for inpatient care and reasonable inpatient medical practice. RATIONALE FOR DETERMINATION Brief clinical presentation, information copied from the chart, abbreviated and edited for relevantcontent: Salbador Justin is a 36 year old male??with PMH significant for ESRD on dialysis and hypertension who presented for evaluation of dental pain and concern for multiple seizure like episodes. Found with Hyperkalemia. Initial potassium level of 6.4. Anion gap elevated at 28 and CO2 of 16. He does still produce urine.?He received calcium gluconate and lasix in ED. He was also treated with Lokelmaovernight-Patient undergoing dialysis on the a.m. of 05/28. Monitor BMP daily. Also with Possible seizure episodes:??In the last??24 hours the patient has had 4 episodes of what he describes as seizures. All unwitnessed and last occurrence at 11 AM on 05/27. Associated prodrome??where he??feels weak, diaphoretic, and dizzy. He goes somewhere to lay down when this happens.??During the episodes he will not??respond but says he is coherent enough to hear what is going on around him. He does lose consciousness briefly with these episodes but denies tongue biting, urinary or stool incontinence, or myalgias after. Does not describe a postictal periods though.??Plan for PRN ativan available for seizure activity and neurology consultation. Also with Left??upper dental pain. Possible left maxillary sinusitis. He has baseline poor dentition His CT of the head did show possible left maxillary sinusitis. On IV unasyn while IP, discharge likely on augmentin. He will need to follow up with a dentist. ?? At the time of admission with the information available to the attending physician, more than 2 nights hospital complex care was anticipated. Also, there was a risk of adverse outcome if patient was treated outpatient or observation. High intensity of services anticipated. Inpatient admission appropriate based on Medicare guidelines. The information on this document is developed [...] 1 and Chapter 6, section 70.4. Sincerely, Prisca Bain MD Utilization Review/ Case Management [facility]. ER LOCKSTITCH * Plan of Care - Diane Causey RN - 05/28/2022 1:30 PM CST 13:20 Patient Transfer Information Patient connected to monitoring equipment on arrival: NA Patient connected to wall oxygen on arrival:NA Belongings: Clothing cell phone Safety check completed:Yes. Seizure pads on bed Pt arrived to [facility] from ED via dialysis. Went to dialysis as an ED boarder this morning then came to[facility] from there at 13:20. Continue plan of care. 13:43 Text page sent to , Pt just arrived to [facility], room 355. He needs a diet order. I gave him pain meds for severe tooth pain, but he says nothing helps him. 15:44 Has c/o left facial/jaw (dental) pain. PRN dilaudid, tylenol and atarax given. It was helpful. Pt did not want to try an ice pack. Alert and oriented. Ambulates with SBA. Steady gait. Lungs clear. 100% RA. Pt refusing tele box. updated and discontinued tele order. Renal diet. Usually has hemodialysis , , . PIV saline locked. Continue seizure precautions and IV Unasyn per orders. Neurology following. ER LOCKSTITCH * Plan of Care - Cintia Steele RN - 05/28/2022 6:36 AM CST Goal Outcome Evaluation: Vss. Afebrile. Room air mid 90s. +gas, intermittent nausea-lbm 05/28/22. No urine production-hemodialysis pt. Saline locked. Lue fistula-+bruit/thrill. Cms- generalized weakness. Skin intact. Pain managed with Tylenol/Atarax/Iv & oral Dilaudid. Cold prn-has declined. Repositioning self. Sba to br. No other significant issues noted overnight. 0148- messaged for hemorrhoid wipes-order received-pt declined at this time. 0204- messaged for additional pain meds- order received for Atarax & change in Tylenol time.Both medications given with good relief. ER LOCKSTITCH * Pharmacy-Admission Medication History - JenMariano Stephen, [facility] - 05/27/2022 7:20 PM CST Admission medication history interview status for this patient is complete. See [facility] admission navigator for allergy information, prior to admission medications and immunization status. Medication history interview done, indicate source(s): Patient Medication history resources (including written lists, pill bottles, clinic record):Gareth Torres Everywhere, [facility] pharmacy [email or web address] [address] [place] [address] Changes made to [employer] medication list: Added: all meds Actions taken by pharmacist (provider contacted, etc):sticky note to hospitalist Additional medication history information: va underwriter called [facility] pharmacy to confirm meds on the list below. Even though spironolactone and citalopram was on [facility] Everywhere, both of them were notprescribed recently. [facility] they don't have prescriptions for the two meds. Medication reconciliation/reorder completed by provider prior to medication history? N Prior to Admission medications Medication Sig Last Dose Taking? Auth Provider [facility] Date amLODIPine (NORVASC) 10 MG tablet Take 1 tablet by mouth daily 05/25/2022 Yes Unknown, Entered By History Yes benazepril (LOTENSIN) 20 MG tablet Take 1 tablet by mouth 2 times daily 05/25/2022 Yes Unknown, Entered By History Yes carvedilol (COREG) 12.5 MG tablet Take 12.5 mg by mouth 2 times daily (with meals) 05/25/2022 Yes Unknown, Entered By History Yes gabapentin (NEURONTIN) 100 MG capsule Take 100 mg by mouth At Bedtime 05/25/2022 Yes Unknown, Entered By History Yes hydrALAZINE (APRESOLINE) 50 MG tablet Take 50 mg by mouth 2 times daily 05/25/2022 Yes Unknown, Entered By History Yes minoxidil (LONITEN) 2.5 MG tablet Take 1 tablet by mouth daily 05/25/2022 Yes Unknown, Entered By History Yes omeprazole (PRILOSEC) [address] capsule TAKE 1 CAPSULE BY MOUTH ONCE DAILY FOR DYSPEPSIA 05/25/2022 Yes Unknown, Entered By History ER LOCKSTITCH documented in this encounter Plan of Treatment Scheduled Orders Name Type Priority Associated Diagnoses Orde r Schedule EKG 12-lead, tracing only EKG STAT Enter condition for order release in comments for 1 Occurrences starting 05/28/2022 documented as of this encounter Procedures Procedure Name Priority Date/Time Associated Diagnosis Comments BASIC METABOLIC PANEL Routine 05/29/2022 7:14 AM [facility] CBC WITH PLATELETS Routine 05/29/2022 7: 14 AM [facility] CBC WITH PLATELETS AND DIFFERENTIAL STAT 05/28/2022 12:58 PM [facility] CBC WITH PLATELETS & DIFFERENTIAL STAT 05/28/2022 12:58 PM [facility] BASIC METABOLIC PANEL STAT 05/28/2022 12:58 PM [facility] HEPATITIS B SURFACE ANTIBODY STAT 05/27/2022 10:24 PM [facility] TROPONIN T, HIGH SENSITIVITY STAT 05/27/2022 10:24 PM [facility] HEPATITIS B SURFACE ANTIGEN STAT 05/27/2022 10:24 PM [facility] POTASSIUM STAT 05/27/2022 8:07 PM [facility] PHOSPHORUS Add-On 05/27/2022 8:07 PM [facility] POTASSIUM STAT 05/27/2022 6:[address] HEAD W/O CONTRAST STAT 05/27/2022 4:[address] ABDOMEN PELVIS W/O CONTRAST STAT 05/27/2022 4:04 PM [facility] EKG 12-LEAD, TRACING ONLY STAT 05/27/2022 3:20 PM [facility] CBC WITH PLATELETS AND DIFFERENTIAL STAT 05/27/2022 3:01 PM [facility] TROPONIN T, HIGH SENSITIVITY STAT 05/27/2022 3:01 PM [facility] CBC WITH PLATELETS & DIFFERENTIAL STAT 05/27/2022 3:01 PM [facility] MAGNESIUM STAT 05/27/2022 3:01 PM [facility] LIPASE STAT 05/27/2022 3:01 PM [facility] LACTIC ACID WHOLE BLOOD STAT 05/27/2022 3:01 PM [facility] COMPREHENSIVE METABOLIC PANEL STAT 05/27/2022 3:01 PM [facility] documented in this encounter Results * (ABNORMAL) Basic metabolic panel (05/29/2022 7:14 AM [facility]) Sodium 137 136 - 145 mmol/L 05/29/2022 8:22 AM [facility] Potassium 4.1 3.4 - 5.3 mmol/L 05/29/2022 8:22 AM [facility] Chloride 96(L) 98 - 107 mmol/L 05/29/2022 8:22 AM [facility] Carbon Dioxide (CO2) 25 22 - 29 mmol/L 05/29/2022 8:22 AM [facility] Anion Gap 16(H) 7 - 15 mmol/L 05/29/2022 8:22 AM [facility] Urea Nitrogen 26.5(H) 6.0 - 20.0 mg/dL 05/29/2022 8:22 AM [facility] Creatinine 11.28(H) 0.67 - 1.17 mg/dL 05/29/2022 8:22 AM [facility] Calcium 8.9 8.6 - 10.0 mg/dL 05/29/2022 8:22 AM [facility] Glucose 124(H) 70 - 99 mg/dL 05/29/2022 8:22 AM [facility] GFR Estimate 6(L) >60 mL/min/1.7 3m2 05/29/2022 8:22 AM [facility] Comment:eGFR calculated usin 2020 CKD-EPI equation. Blood STRUCTURE OF RIGHT HAND / Unknown Venipuncture / Unknown 05/29/2022 7:14 AM [facility] 05/29/2022 7:55 AM [facility] Alvaro Draper MD LAB - BLOOD ORDERABL ES LABORATORY [facility] [address] [facility] ([facility], no room number) [place] [address], [facility] [phone] * (ABNORMAL) CBC with platelets (05/29/2022 7:14 AM [facility]) WBC Count 9.9 4.0 - 11.0 10e3/uL 05/29/2022 7:58 AM [facility] RBC Count 3.28(L) 4.40 - 5.90 10e6/uL 05/29/2022 7:58 AM [facility] Hemoglobin 9.1(L) 13.3 - 17.7 g/dL 05/29/2022 7:58 AM [facility] Hematocrit 29.0(L) 40.0 - 53.0 % 05/29/2022 7:58 AM [facility] MCV 88 78 - 100 fL 05/29/2022 7:58 AM [facility] MCH 27.7 26.5 - 33.0 pg 05/29/2022 7:58 AM [facility] MCHC 31.4(L) 31.5 - 36.5 g/dL 05/29/2022 7:58 AM [facility] RDW 14.2 10.0 - 15.0 % 05/29/2022 7:58 AM [facility] Platelet Count 300 150 - 450 10e3/uL 05/29/2022 7:58 AM [facility] Blood STRUCTURE OF RIGHT HAND / Unknown Venipuncture / Unknown 05/29/2022 7:14 AM [facility] 05/29/2022 7:55 AM [facility] Alvaro Draper MD LAB - BLOOD ORDERABL ES [facility] LABORATORY [facility] Acute [facility] Lab [address] [facility] Lab (1st floor, no room number) [place] [address], [facility] [phone] * (ABNORMAL) CBC with platelets and differential (05/28/2022 12:58 PM [facility]) WBC Count 8.6 4.0 - 11.0 10e3/uL 05/28/2022 1:15 PM [facility] RBC Count 3.45(L) 4.40 - 5.90 10e6/uL 05/28/2022 1:15 PM [facility] Hemoglobin 9.6(L) 13.3 - 17.7 g/dL 05/28/2022 1:15 PM [facility] Hematocrit 29.6(L) 40.0 - 53.0 % 05/28/2022 1:15 PM [facility] MCV 86 78 - 100 fL 05/28/2022 1:15 PM [facility] MCH 27.8 26.5 - 33.0 pg 05/28/2022 1:15 PM [facility] MCHC 32.4 31.5 - 36.5 g/dL 05/28/2022 1:15 PM [facility] RDW 13.7 10.0 - 15.0 % 05/28/2022 1:15 PM [facility] Platelet Count 311 150 - 450 10e3/uL 05/28/2022 1:15 PM [facility] % Neutrophils 67 % 05/28/2022 1:15 PM [facility] % Lymphocytes 16 % 05/28/2022 1:15 PM [facility] % Monocytes 10 % 05/28/2022 1:15 PM [facility] % Eosinophils 6 % 05/28/2022 1:15 PM [facility] % Basophils 1 % 05/28/2022 1:15 PM [facility] % Immature Granulocytes 0 % 05/28/2022 1:15 PM [facility] NRBCs per 100 WBC 0 <1 /100 023 1:15 PM [facility] Absolute Neutrophils 5.7 1.6 - 8.3 10e3/uL 05/28/2022 1:15 PM [facility] Absolute Lymphocytes 1.4 0.8 - 5.3 10e3/uL 05/28/2022 1:15 PM [facility] Absolute Monocytes 0.9 0.0 - 1.3 10e3/uL 05/28/2022 1:15 PM [facility] Absolute Eosinophils 0.5 0.0 - 0.7 10e3/uL 05/28/2022 1:15 PM [facility] Absolute Basophils 0.1 0.0 - 0.2 10e3/uL 05/28/2022 1:15 PM [facility] Absolute Immature Granulocytes 0.0 <=0.4 10e3/uL 05/28/2022 1:15 PM [facility] Absolute NRBCs 0.0 10e3/uL 05/28/2022 1:15 PM [facility] Blood STRUCTURE OF LEFT HAND / Unknown Venipuncture / Unknown 05/28/2022 12:58 PM [facility] 05/28/2022 1:04 PM [facility] Alvaro Draper MD LAB - BLOOD ORDERABL ES RH LABORATORY [facility] Acute [facility] Lab [address] Lab (1st floor, no room number) [place] [address], [facility] [phone] * (ABNORMAL) Basic metabolic panel (05/28/2022 12:58 PM [facility]) Pathologist [facility] Sodium 141 136 - 145 mmol/L 05/28/2022 2:50 PM [facility] LABORATORY Potassium 3.3(L) 3.4 - 5.3 mmol/L 05/28/2022 2:50 PM [facility] LABOR[facility]ORY Chloride 96(L) 98 - 107 mmol/L 05/28/2022 2:50 PM [facility] LAB[facility] Carbon Dioxide (CO2) 26 22 - 29 mmol/L 05/28/2022 2:50 PM [facility] Anion Gap 19(H) 7 - 15 mmol/L 05/28/2022 2:50 PM [facility] Urea Nitrogen 16.6 6.0 - 20.0 mg/dL 05/28/2022 2:50 PM [facility] Creatinine 5.89(H) 0.67 - 1.17 mg/dL 05/28/2022 2:50 PM [facility] Calcium 9.5 8.6 - 10.0 mg/dL 05/28/2022 2:50 PM [facility] Glucose 75 70 - 99 mg/dL 05/28/2022 2:50 PM [facility] GFR Estimate 12(L) >60 mL/min/1.7 3m2 05/28/2022 2:50 PM [facility] Comment:eGFR calculated usin 2020 CKD-EPI equation. Blood STRUCTURE OF LEFT HAND / Unknown Venipuncture / Unknown 05/28/2022 12:58 PM [facility] 05/28/2022 1:04 PM [facility] Alvaro Draper MD LAB - BLOOD ORDERABL ES LABORATORY [facility] Lab [address] [facility] Lab (1st floor, no room number) [place] [address], [facility] [phone] * Hepatitis B Surface Antibody (05/27/2022 10:24 PM [facility]) Hepatitis B Surface Antibody Instrument Value 12.08 <8.00 m[IU]/mL 05/28/2022 6:48 PM [facility] SPECIALTY CORE/PROT/END O Hepatitis B Surface Antibody Reactive 05/28/2022 6:48 PM [facility] SPECIALTY CORE/PROT/END O Comment:Patient is considere d to be immune to infection with hepatitis B when the value is greater than or equal to 12.00 mIU/mL. Blood STRUCTURE OF RIGHT HAND / Unknown Venipuncture / Unknown 05/27/2022 10:24 PM [facility] 05/27/2022 10:33 PM [facility] Carlos Salgado MD LAB - BLOOD ORDERABL ES [facility] SPECIALTY CORE/PROT/ENDO [facility] Specialty Core/Prot/Endo [address] [facility], [address] [phone] * Hepatitis B surface antigen (05/27/2022 10:24 PM [facility]) Hepatitis B Surface Antigen Nonreactive Nonreactive 05/28/2022 6:48 PM [facility] SPECIALTY CORE/PROT/EN DO Blood STRUCTURE OF RIGHT HAND / Unknown Venipuncture / Unknown 05/27/2022 10:24 PM [facility] 05/27/2022 10:33 PM [facility] Carlos Salgado MD LAB - BLOOD ORDERABL ES SPECIALTY CORE/PROT/ENDO Specialty Core/Prot/Endo [address] [facility], [address] [phone] * (ABNORMAL) Troponin T, High Sensitivity (05/27/2022 10:24 PM [facility]) Troponin T, High Sensitivity 66(H) <=22 ng/L 05/27/2022 10:52 PM [facility] LABORATORY Comment: Either a High Sensitivity Troponin T baseline (0 hours) value = 100 ng/mL, or an increase in High Sensitivity Troponin T = 7 ng/mL at 2 hours compared to 0 hours (2-0 hours), suggests myocardial injury, and urgent clinical attention is required. ?? If the 2-0 hours increase is<7 ng/mL, a High Sensitivity Troponin T result above gender-specific reference ranges warrants further evaluation. Recommendations for further evaluation include correlation with clinical decision-making tool (e.g., HEART), a 3rd High Sensitivity Troponin T test 2 hours after the 2nd (a 20% change from baseline would represent concern), admission for observation, close PCC/cardiology follow-up, or urgent outpatient provocative testing. Blood STRUCTURE OF RIGHT HAND / Unknown Venipuncture / Unknown 05/27/2022 10:24 PM [facility] 05/27/2022 10:33 PM [facility] Belinda Driscoll PA-C LAB - BLOOD OMAR SURESH [facility] Acute Care Lab [address] Lab (1st floor, no room number) [place] [phone], [facility] [phone] * (ABNORMAL) Phosphorus (05/27/2022 8:07 PM [facility]) Phosphorus 6.9(H) 2.5 - 4.5 mg/dL 05/28/2022 11:54 AM [facility] LABORATORY Blood STRUCTURE OF RIGHT HAND / Unknown Venipuncture / Unknown 05/27/2022 8:07 PM [facility] 05/27/2022 8:45 PM [facility] Dalton Mendieta MD LAB - BLOOD ORDER PENG [facility] Care Lab [address] Lab (1st floor, no room number) [place] [address], [facility] [phone] * (ABNORMAL) Potassium (05/27/2022 8:07 PM [facility]) Potassium 6.4(HH) 3.4 - 5.3 mmol/L 05/27/2022 9:30 PM [facility]OR[facility] Blood STRUCTURE OF RIGHT HAND / Unknown Venipuncture / Unknown 05/27/2022 8:07 PM [facility] 05/27/2022 8:45 PM [facility] Brooks PEREZ-C LAB - BLOOD ORDERABL ES [facility] Acute Care Lab [address] Lab (1st floor, no room number) [place] [address], [facility] [phone] * (ABNORMAL) Potassium (05/27/2022 6:43 PM [facility]) Potassium 6.2(HH) 3.4 - 5.3 mmol/L 05/27/2022 7:23 PM [facility] LABORATORY Blood STRUCTURE OF RIGHT HAND / Unknown Venipuncture / Unknown 05/27/2022 6:43 PM [facility] 05/27/2022 6:49 PM [facility] Brooks Finnegan PA-C LAB - BLOOD ORDERABL ES Performing Organization Address [facility]/ZIP Co de Phone Number [facility] Lab [address] Lab (1st floor, no room number) [place] [address], [facility] [phone] * CT Head w/o Contrast (05/27/2022 4:04 PM [facility]) Anatomical Region Laterality Modality Head, SUBRAD CT NEURO, SUBRA D CT NEURO, UMP CT NEURO, RAD CT Computed Tomography Impressions 05/27/2022 4:37 PM [facility] IMPRESSION: ?? 1. No acute intracranial hemorrhage, extra axial fluid collection, or mass effect. 2. Possible subtle patchy nonspecific hypoattenuation in the cerebral white matter, as described. 3. Mild to moderate polypoid mucosal thickening in the left maxillary sinus. ALIZA SIEGEL MD Narrative 05/27/2022 4:[address] SCAN OF THE HEAD WITHOUT CONTRAST ?? 05/27/2022 4:04 PM HISTORY: Seizures, headache, left-sided jaw pain TECHNIQUE: ??Axial images of the head and coronal reformations without IV contrast material. Radiation dose for this scan was reduced using automated exposure control, adjustment of the mA and/or kV according to patient size, or iterative reconstruction technique. COMPARISON: None. FINDINGS: There is no evidence of intracranial hemorrhage, mass, acute infarct or anomaly. Mild prominence of the cerebral sulci and ventricles, compatible with minimal/mild generalized cerebral volume loss. There appear to be possible subtle mild patchy areas of hypoattenuation in the cerebral white matter, which are nonspecific. Differential considerations are broad but would include early mild chronic small vessel ischemic change, demyelinating disease, sequela of previous infectious/inflammatory process, etc. There is no extra-axial fluid collection or mass effect/herniation. Mild to moderate polypoid mucosal thickening in the left maxillary sinus. The other visualized paranasal sinuses are clear. The mastoid and middle ear cavities appear grossly clear. The bony calvarium and bones of the skull base appear intact. Procedure Note Aliza Siegel MD - 05/27/2022 CT SCAN OF THE HEAD WITHOUT CONTRAST 05/27/2022 4:04 PM HISTORY: Seizures, headache, left-sided jaw pain TECHNIQUE: Axial images of the head and coronal reformations without IV contrast material. Radiation dose for this scan was reduced using automated exposure control, adjustment of the mA and/or kV according to patient size, or iterative reconstruction technique. COMPARISON: None. FINDINGS: There is no evidence of intracranial hemorrhage, mass, acute infarct or anomaly. Mild prominence of the cerebral sulci and ventricles, compatible with minimal/mild generalized cerebral volume loss. There appear to be possible subtle mild patchy areas of hypoattenuation in the cerebral white matter, which are nonspecific. Differential considerations are broad but would include early mild chronic small vessel ischemic change, demyelinating disease, sequela of previous infectious/inflammatory process, etc. There is no extra-axial fluid collection or mass effect/herniation. Mild to moderate polypoid mucosal thickening in the left maxillary sinus. The other visualized paranasal sinuses are clear. The mastoid and middle ear cavities appear grossly clear. The bony calvarium and bones of the skull base appear intact. IMPRESSION: 1. No acute intracranial hemorrhage, extra axial fluid collection, or mass effect. 2. Possible subtle patchy nonspecific hypoattenuation in the cerebral white matter, as described. 3. Mild to moderate polypoid mucosal thickening in the left maxillary sinus. ALIZA SIEGEL MD Brooks Finnegan PA-C [facility] [place] * CT Abdomen Pelvis w/o Contrast (05/27/2022 4:04 PM [facility]) Anatomical Region Laterality Modality Abdomen/Pelvis, SUBRAD CT BRIAN DY, UMP CT ABDOMEN PELVIS, RAD CT Computed Tomography Impressions 05/27/2022 4:16 PM [facility] IMPRESSION: Within the limitation of noncontrast exam, there is; 1. No evidence of acute pathology in the abdomen and pelvis. 2. Colonic diverticulosis without CT evidence of acute diverticulitis. 3. Approximately 1.3 cm hypodense focus in the right hepatic lobe, indeterminate, could represent hepatic hemangioma versus other hepatic lesions, can be further evaluated with contrast enhanced MRI on nonemergent basis. ANJELICA MUSE MD Narrative 05/27/2022 4:[address] ABDOMEN PELVIS WITHOUT CONTRAST ??05/27/2022 4:04 PM HISTORY: Upper abdominal pain TECHNIQUE: CT scan obtained of the abdomen, and pelvis without IV contrast. Radiation dose for this scan was reduced using automated exposure control, adjustment of the mA and/or kV according to patient size, or iterative reconstruction technique. COMPARISON:None available. FINDINGS: Lower chest:Lung bases are clear. Abdomen/pelvis:Limited evaluation of the abdominal organs due to lack of intravenous contrast, within this limitation, there is; Hepatobiliary: Approximately 1.2 cm hypoattenuating focus in hepatic segment 8 (serious 2 image 18). Otherwise, the unenhanced liver and gallbladder are grossly unremarkable. Pancreas: The unenhanced pancreas is grossly unremarkable. Spleen: No splenomegaly. Adrenal glands: Mild diffuse left adrenal gland thickening. No right adrenal nodule. Kidneys: No radiodense kidney/ureteral stones or hydronephrosis in the kidney. Bowel: No abnormally dilated bowel loops. The appendix is visualized and appears normal. Colonic diverticulosis predominantly of the sigmoid colon without CT evidence of acute diverticulitis. Peritoneum: No significant free fluid in the abdomen or pelvis. No free peritoneal portal venous gas. Pelvic organs: Mild diffuse urinary bladder wall thickening, nonspecific, can be seen with under distention versus chronic cystitis. Vascular: Scattered atherosclerotic vascular calcification of the abdominal aorta and iliac vessels. Lymph nodes: No significant abdominopelvic lymphadenopathy. Bones and soft tissue: No suspicious osseous lesion. Procedure Note Anjelica Muse MD - 05/27/2022 CT ABDOMEN PELVIS WITHOUT CONTRAST 05/27/2022 4:04 PM HISTORY: Upper abdominal pain TECHNIQUE: CT scan obtained of the abdomen, and pelvis without IV contrast. Radiation dose for this scan was reduced using automated exposure control, adjustment of the mA and/or kV according to patient size, or iterative reconstruction technique. COMPARISON:None available. FINDINGS: Lower chest:Lung bases are clear. Abdomen/pelvis:Limited evaluation of the abdominal organs due to lack of intravenous contrast, within this limitation, there is; Hepatobiliary: Approximately 1.2 cm hypoattenuating focus in hepatic segment 8 (serious 2 image 18). Otherwise, the unenhanced liver and gallbladder are grossly unremarkable. Pancreas: The unenhanced pancreas is grossly unremarkable. Spleen: No splenomegaly. Adrenal glands: Mild diffuse left adrenal gland thickening. No right adrenal nodule. Kidneys: No radiodense kidney/ureteral stones or hydronephrosis in the kidney. Bowel: No abnormally dilated bowel loops. The appendix is visualized and appears normal. Colonic diverticulosis predominantly of the sigmoid colon without CT evidence of acute diverticulitis. Peritoneum: No significant free fluid in the abdomen or pelvis. No free peritoneal portal venous gas. Pelvic organs: Mild diffuse urinary bladder wall thickening, nonspecific, can be seen with under distention versus chronic cystitis. Vascular: Scattered atherosclerotic vascular calcification of the abdominal aorta and iliac vessels. Lymph nodes: No significant abdominopelvic lymphadenopathy. Bones and soft tissue: No suspicious osseous lesion. IMPRESSION: Within the limitation of noncontrast exam, there is; 1. No evidence of acute pathology in the abdomen and pelvis. 2. Colonic diverticulosis without CT evidence of acute diverticulitis. 3. Approximately 1.3 cm hypodense focus in the right hepatic lobe, indeterminate, could represent hepatic hemangioma versus other hepatic lesions, can be further evaluated with contrast enhanced MRI on nonemergent basis. ANJELICA MUSE MD Brooks Finnegan PA-C IMG CT ORDERABLES * EKG 12-lead, tracing only (05/27/2022 3:20 PM [facility]) Systolic Blood Pressure mmHg RADIOLOGY RESULTS Diastolic Blood Pressure mmHg RADIOLOGY RESULTS Ventricular Rate 101 BPM RAD IOLOGY RESULTS Atrial Rate 101 BPM RADIOLOG Y RESULTS VA Interval 144 ms RADIOLOG Y RESULTS QRS Duration 104 ms RADIOLO GY RESULTS QT 380 ms RADIOLOGY RESULTS QTc 492 ms RADIOLOGY RESULTS P [place] 66 degrees RADIOLOGY RESULTS R AXIS 80 degrees RADIOLOGY RESULTS T [place] 57 degrees RADIOLOGY RESULTS Interpretation ECG Sinus tachycardia with occasional Premature ventricular complexes Possible Left atrial enlargement Borderline ECG No previous ECGs available Confirmed by - EMERGENCY ROOM, PHYSICIAN ([id number]), photograph editor YODIT MITTAL ([id number]) on 05/28/2022 7:40:38 AM RADIOLOGY RESULTS 05/27/2022 3:20 PM [facility] 05/28/2022 7:40 AM [facility] Brooks Finnegan PA-C ECG ORDERABLES RADIOLOGY RESULTS * Lipase (05/27/2022 3:01 PM [facility]) Pathologist [facility] Lipase 37 13 - 60 U/L 05/27/2022 6:49 PM [facility] LABORATORY Blood BLOOD SPECIMEN / Unknown Venipuncture / Unknown 05/27/2022 3:01 PM [facility] 05/27/2022 3:06 PM [facility] Brooks Finnegan PA-C LAB - BLOOD ORDERABL ES LABORATORY [facility] Acute Care Lab [address] [facility] Lab (1st floor, no room number) [place] [address] [phone] * (ABNORMAL) CBC with platelets and differential (05/27/2022 3:01 PM [facility]) WBC Count 8.2 4.0 - 11.0 10e3/uL 05/27/2022 3:34 PM [facility] LABORATORY RBC Count 3.76(L) 4.40 - 5.90 10e6/uL 05/27/2022 3:34 PM [facility] Hemoglobin 10.6(L) 13.3 - 17.7 g/dL 05/27/2022 3:34 PM [facility] Hematocrit 33.5(L) 40.0 - 53.0 % 05/27/2022 3:34 PM [facility] MCV 89 78 - 100 fL 05/27/2022 3:34 PM [facility] MCH 28.2 26.5 - 33.0 pg 05/27/2022 3:34 PM [facility] MCHC 31.6 31.5 - 36.5 g/dL 05/27/2022 3:34 PM [facility] RDW 13.9 10.0 - 15.0 % 05/27/2022 3:34 PM [facility] Platelet Count 313 150 - 450 10e3/uL 05/27/2022 3:34 PM [facility] % Neutrophils 71 % 05/27/2022 3:34 PM [facility] % Lymphocytes 17 % 05/27/2022 3:34 PM [facility] % Monocytes 8 % 05/27/2022 3:34 PM [facility] % Eosinophils 3 % 05/27/2022 3:34 PM [facility] % Basophils 1 % 05/27/2022 3:34 PM [facility] % Immature Granulocytes 0 % 05/27/2022 3:34 PM [facility] NRBCs per 100 WBC 0 <1 /100 023 3:34 PM [facility] Absolute Neutrophils 5.9 1.6 - 8.3 10e3/uL 05/27/2022 3:34 PM [facility] Absolute Lymphocytes 1.4 0.8 - 5.3 10e3/uL 05/27/2022 3:34 PM [facility] Absolute Monocytes 0.6 0.0 - 1.3 10e3/uL 05/27/2022 3:34 PM [facility] Absolute Eosinophils 0.2 0.0 - 0.7 10e3/uL 05/27/2022 3:34 PM [facility] Absolute Basophils 0.1 0.0 - 0.2 10e3/uL 05/27/2022 3:34 PM [facility] Absolute Immature Granulocytes 0.0 <=0.4 10e3/uL 05/27/2022 3:34 PM [facility] Absolute NRBCs 0.0 10e3/uL 05/27/2022 3:34 PM [facility] Blood BLOOD SPECIMEN / Unknown Venipuncture / Unknown 05/27/2022 3:01 PM [facility] 05/27/2022 3:06 PM [facility] Brooks Finnegan PA-C LAB - BLOOD ORDERABL ES Performing Organization Address [facility]/ZIP Co de Phone Number LABORATORY [facility] Lab [address] Lab (1st floor, no room number) [place] [address], [facility] [phone] * Lactic acid whole blood (05/27/2022 3:01 PM [facility]) Lactic Acid 1.6 0.7 - 2.0 mmol/L 05/27/2022 3:09 PM [facility] LABORATORY Blood BLOOD SPECIMEN / Unknown Venipuncture / Unknown 05/27/2022 3:01 PM [facility] 05/27/2022 3:06 PM [facility] Brokos PEREZ-Antonieta LAB - BLOOD ORDERABL ES Performing Organization Address [facility] [facility]/ZIP Co de Phone Number LABORATORY [facility] [address] Lab (1st floor, no room number) [place] [address], [facility] [phone] * (ABNORMAL) Troponin T, High Sensitivity (05/27/2022 3:01 PM [facility]) Troponin T, High Sensitivity 68(H) <=22 ng/L 05/27/2022 3:57 PM [facility] LABORATORY Comment: Either a High Sensitivity Troponin T baseline (0 hours) value = 100 ng/mL, or an increase in High Sensitivity Troponin T = 7 ng/mL at 2 hours compared to 0 hours (2-0 hours), suggests myocardial injury, and urgent clinical attention is required. ?? If the 2-0 hours increase is<7 ng/mL, a High Sensitivity Troponin T result above [...] BLOOD SPECIMEN / Unknown Venipuncture / Unknown 05/27/2022 3:01 PM [facility] 05/27/2022 3:06 PM [facility] Brooks PEREZ-C LAB - BLOOD ORDERABL ES Performing Organization Address City/[facility]/ZIP Co de Phone Number LABORATORY [facility] [address] Lab (1st floor, no room number) [place] [address], [facility] [phone] * Magnesium (05/27/2022 3:01 PM [facility]) Pathologist [facility] Magnesium 2.0 1.7 - 2.3 mg/dL 05/27/2022 3:57 PM [facility] LABORATORY Blood BLOOD SPECIMEN / Unknown Venipuncture / Unknown 05/27/2022 3:01 PM [facility] 05/27/2022 3:06 PM [facility] Brooks PEREZ-C LAB - BLOOD ORDERABL ES Performing Organization Address [facility]/ZIP Co de Phone Number [facility] [address] Lab (1st floor, no room number) [place] [address], [facility] [phone] * (ABNORMAL) Comprehensive metabolic panel (05/27/2022 3:01 PM [facility]) Sodium 136 136 - 145 mmol/L 05/27/2022 4:23 PM [facility] LABORATORY Potassium 6.4(HH) 3.4 - 5.3 mmol/L 05/27/2022 4:23 PM [facility]OR[facility] Comment:Specimen slightly he molyzed, potassium may be falsely elevated. Chloride 92(L) 98 - 107 mmol/L 05/27/2022 4:23 PM [facility] Carbon Dioxide (CO2) 16(L) 22 - 29 mmol/L 05/27/2022 4:23 PM [facility] Anion Gap 28(H) 7 - 15 mmol/L 05/27/2022 4:23 PM [facility] Urea Nitrogen 43.8(H) 6.0 - 20.0 mg/dL 05/27/2022 4:23 PM [facility] Creatinine 13.78(H) 0.67 - 1.17 mg/dL 05/27/2022 4:23 PM [facility] Calcium 9.5 8.6 - 10.0 mg/dL 05/27/2022 4:23 PM [facility] Glucose 79 70 - 99 mg/dL 05/27/2022 4:23 PM [facility]OR[facility] Alkaline Phosphatase 51 40 - 129 U/L 05/27/2022 4:23 PM [facility] AST 23 10 - 50 U/L 05/27/2022 4:23 PM [facility] Comment:Specimen is hemolyze d which can falsely elevate AST. Analysis of a non-hemolyzed specimen may result in a lower value. ALT 13 10 - 50 U/L 05/27/2022 4:23 PM [facility]OR[facility] Protein Total 7.9 6.4 - 8.3 g/dL 05/27/2022 4:23 PM [facility] LABOR[facility]ORY Albumin 5.0 3.5 - 5.2 g/dL 05/27/2022 4:23 PM [facility] Bilirubin Total 0.4 <=1.2 mg/dL 05/27/2022 4:23 PM [facility]OR[facility] GFR Estimate 4(L) >60 mL/min/1. 73m2 05/27/2022 4:23 PM [facility] Comment:eGFR calculated usin 2020 CKD-EPI equation. Blood BLOOD SPECIMEN / Unknown Venipuncture / Unknown 05/27/2022 3:01 PM [facility] 05/27/2022 3:06 PM [facility] Brooks Finnegan PA-C LAB - BLOOD ORDERABL ES LABORATORY [facility] [address] [facility] Lab (1st floor, no room number) [place] [address], [facility] [phone] documented in this encounter Visit Diagnoses Diagnosis Spell of altered consciousness- Primary Other alteration of consciousness Hyperkalemia Hyperpotassemia Jaw pain Headache Spell of altered consciousness Other alteration of consciousness Abdominal pain, epigastric HTN (hypertension) Unspecified essential hypertension Benign essential hypertension Essential hypertension, benign Hyperkalemia Hyperpotassemia Jaw pain Headache documented in this encounter Admitting Diagnoses Diagnosis Spell of altered consciousness Other alteration of consciousness documented in this encounter Administered Medications Inactive Administered Medications - up to 3 most recent administrations Medication Order MAR Action Action Date Dose Rate Site - MEDICATION INSTRUCTIONS for Dialysis Patients - SEE ADMIN INSTRUCTIONS, Starting on Fri05/28/22 at 1335, Until Fri05/29/22 at 1643, Do not give any medication that may affect blood pressure or volume before dialysis. The following medications may be removed by dialysis and should be given after dialysis: gabapentin, ampicillin/sulbactam, lisinopril, minoxidil. 0.9% sodium chloride BOLUS Intravenous, 1,000 mL, ONCE, at 1,000 mL/hr, Administer over 1 Hours, On Fri05/27/22 at 1450, For 1 dose $New Bag 05/27/2022 3:00 PM [facility] 1,000 mLs 1000 mL/hr 0.9% sodium chloride BOLUS Intravenous, 250 mL, ONCE IN DIALYSIS/CRRT, On Fri05/28/22 at 0715, For 1 dose, For patient prime during dialysis, Dialysis $New Bag 05/28/2022 11:28 AM [facility] 250 mLs 0.9% sodium chloride BOLUS Hemodialysis Machine, 300 mL, ONCE, On Fri05/28/22 at 0715, For 1 dose, For Dialyzer Prime. (In Dialyzer), Dialysis $New Bag 05/28/2022 11:28 AM [facility] 300 mLs 0.9% sodium chloride BOLUS Intravenous, 100-150 mL, EVERY 15 MIN PRN, Until hypotensive symptoms resolve, Starting on Fri05/28/22 at 0712, For 10 doses, Up to 1000 mL maximum total dose. Give if needed to manage Systolic Blood Pressure as indicated in Hemodialysis Single Treatment set up. Notify provider if patient blood pressure is not responsive with the bolus., Dialysis acetaminophen (TYLENOL) tablet 650 mg 650 mg, Oral, EVERY 4 HOURS PRN, mild pain, Starting on Fri05/28/22 at 0210, Maximum acetaminophen dose from all sources = 75 mg/kg/day not to exceed 4 grams/day. $Given 05/29/2022 6:24 AM [facility] 650 mg $Given 05/28/2022 10:40 PM [facility] 650 mg $Given 05/28/2022 7:25 PM [facility] 650 mg acetaminophen (TYLENOL) tablet 975 mg 975 mg, Oral, EVERY 8 HOURS PRN, mild pain, Starting on Fri05/27/22 at 2024, Maximum acetaminophen dose from all sources = 75 mg/kg/day not to exceed 4 grams/day. $Given 05/27/2022 10:35 PM [facility] 975 mg amLODIPine (NORVASC) tablet 10 mg 10 mg, Oral, DAILY, First dose on Fri05/28/22 at 0800 $Given 05/29/2022 8:26 AM [facility] 10 mg $Given 05/28/2022 1:54 PM [facility] 10 mg amoxicillin-clavulanate (AUGMENTIN) 500-125 MG per tablet 1 tablet STAT, 1 tablet, Oral, EVERY 12 HOURS SCHEDULED, First dose on Fri05/27/22 at 2105, Indications: Dental infection $Given 05/27/2022 10:13 PM [facility] 1 table t ampicillin-sulbactam (UNASYN) 3 g vial to attach to NS 100 mL bag STAT, 3 g, Intravenous, EVERY 24 HOURS, First dose on Fri05/28/22 at 2000, Indications: dental infection $New Bag 05/28/2022 8:20 PM [facility] 3 g calcium gluconate 1 g in 50 mL sodium chloride intermittent infusion (premix) 1 g, Intravenous, Administer over 15 Minutes, ONCE, On Fri05/27/22 at 1650, For 1 dose, Begin infusion before dextrose and insulin but do not delay administration of dextrose and insulin for completion of calcium infusion. (Maximum infusion rate of 150 mg/minute) Do not infuse in the same IV line as phosphate-containing solutions $Given 05/27/2022 4:50 PM [facility] 1 g carvedilol (COREG) tablet 12.5 mg 12.5 mg, Oral, 2 TIMES DAILY WITH MEALS, First dose on Fri05/27/22 at 2025 $Given 05/28/2022 6:17 PM [facility] 12.5 mg $Given 05/27/2022 9:03 PM [facility] 12.5 mg docusate (COLACE) 50 MG/5ML liquid 100 mg 100 mg, Oral, ONCE, On Fri05/27/22 at 1725, For 1 dose, FOR EAR Hold for loose stools. $Given 05/27/2022 5:43 PM [facility] 100 mg furosemide (LASIX) injection 40 mg 40 mg, Intravenous, ONCE, Administer over 1-3 Minutes, On Fri05/27/22 at 1700, For 1 dose $Given 05/27/2022 5:23 PM [facility] 40 mg heparin (porcine) injection 500 Units, Hemodialysis Machine OR IV Push, ONCE IN DIALYSIS/CRRT, On Fri05/28/22 at 0715, For 1 dose, LOADING DOSE Administer loading dose prior to heparin infusion. PRE DIALYSIS RUN Dialysis, Dialysis $Given 05/28/2022 11:27 AM [facility] 500 Units heparin 10,000 units/10 mL infusion (DIALYSIS USE) 500 Units/hr (0.5 mL/hr), Hemodialysis Machine, CONTINUOUS, Starting on Fri05/28/22 at 0715, DURING DIALYSIS TREATMENT, Dialysis $New Bag 05/28/2022 11:27 AM [facility] 500 Units/hr 0.5 mL/hr hydrALAZINE (APRESOLINE) injection 10 mg 10 mg, Intravenous, EVERY 6 HOURS PRN, high blood pressure, give for SBP > 180, Starting on Fri05/27/22 at 2136 hydrALAZINE (APRESOLINE) tablet 50 mg 50 mg, Oral, 2 TIMES DAILY, First dose on Fri05/27/22 at 5 $Given 05/29/2022 8:27 AM [facility] 50 mg $Given 05/28/2022 8:22 PM [facility] 50 mg $Given 05/28/2022 2:00 PM [facility] 50 mg HYDROmorphone (DILAUDID) half-tab 1-2 mg 1-2 mg, Oral, EVERY 4 HOURS PRN, moderate pain, IF pain not managed with non-pharmacological and non-opioid interventions, Starting on Fri05/27/22 at 2024, May use concomitant with non-opioid analgesics. $Given 05/29/2022 10:13 AM [facility] 1 mg $Given 05/28/2022 10:40 PM [facility] 2 mg $Given 05/28/2022 6:15 PM [facility] 2 mg HYDROmorphone (DILAUDID) injection 0.2 mg 0.2 mg, Intravenous, ONCE PRN, moderate pain, severe pain, Starting on Fri05/27/22 at 1445, For 1 dose, Notify the provider to assess for uncontrolled pain or analgesic side effects. Hold while on IV SKIP HOIST ENGINEER or with regular IV opioid dosing. $Given 05/27/2022 3:00 PM [facility] 0.2 mg HYDROmorphone (DILAUDID) injection 0.2 mg 0.2 mg, Intravenous, EVERY 2 HOURS PRN, moderate pain, IF patient cannot take oral opioid OR IF pain not managed with non-pharmacological, non-opioid, or oral opioid interventions if ordered, Starting on Fri05/27/22 at 2023, May use concomitant with non-opioid analgesics. $Given 05/27/2022 8:36 PM [facility] 0.2 mg HYDROmorphone (PF) (DILAUDID) injection 0.3-0.5 mg 0.3-0.5 mg, Intravenous, EVERY 2 HOURS PRN, moderate pain, severe pain, IF patient cannot take oral opioid OR IF pain not managed with non-pharmacological, non-opioid, or oral opioid interventions if ordered, Starting on Fri05/27/22 at 2054, May use concomitant with non-opioid analgesics. $Given 05/29/2022 1:08 PM [facility] 0.5 mg $Given 05/29/2022 6:25 AM [facility] 0.3 mg $Given 05/28/2022 3:18 PM [facility] 0.5 mg HYDROmorphone (PF) (DILAUDID) injection 0.5 mg 0.5 mg, Intravenous, ONCE PRN, moderate pain, severe pain, Starting on Fri05/27/22 at 1544, For 1 dose, Notify the provider to assess for uncontrolled pain or analgesic side effects. Hold while on IV SKIP HOIST ENGINEER or with regular IV opioid dosing. $Given 05/27/2022 4:36 PM [facility] 0.5 mg hydrOXYzine (ATARAX) tablet 25 mg 25 mg, Oral, EVERY 6 HOURS PRN, other, adjuvant pain, Starting on Fri05/28/22 at 0205, Start with 25 mg for the initial dose. If the 25 mg dose is ineffective, increase to the 50 mg dose at the next administration time and maintain further doses at 50 mg. If the 50 mg dose is ineffective, contact the provider. $Given 05/28/2022 5:33 AM [facility] 25 mg $Given 05/28/2022 2:15 AM [facility] 25 mg hydrOXYzine (ATARAX) tablet 50 mg 50 mg, Oral, EVERY 6 HOURS PRN, other, adjuvant pain, Starting on Fri05/28/22 at 0205, Start with 25 mg for the initial dose. If the 25 mg dose is ineffective, increase to the 50 mg dose at the next administration time and maintain further doses at 50 mg. If the 50 mg dose is ineffective, contact the provider. $Given 05/28/2022 6:17 PM [facility] 50 mg $Given 05/28/2022 1:23 PM [facility] 50 mg labetalol (NORMODYNE/TRANDATE) injection 10 mg 10 mg, Intravenous, ONCE, On Fri05/27/22 at 1730, For 1 dose, PROTECT FROM LIGHT. $Given 05/27/2022 5:42 PM [facility] 10 mg lisinopril (ZESTRIL) tablet 20 mg 20 mg, Oral, DAILY, First dose on Fri05/28/22 at 0800, This therapy was substituted for benazepril (Lotensin) 20 mg daily. $Given 05/29/2022 8:26 AM [facility] 20 mg $Given 05/28/2022 1:54 PM [facility] 20 mg minoxidil (LONITEN) tablet 2.5 mg 2.5 mg, Oral, DAILY, First dose on Fri05/28/22 at 0800 $Given 05/29/2022 8:26 AM [facility] 2.5 mg ondansetron (ZOFRAN ODT) ODT tab 4 mg 4 mg, Oral, EVERY 6 HOURS PRN, nausea, vomiting, Starting on Fri05/27/22 at 2023, This is Step 1 of nausea and [...] vomiting, Administer over 2-5 Minutes, Starting on Fri05/27/22 at 2023, Give IF patient unable to tolerate oral medication. This is Step 1 of nausea and vomiting management. If nausea not resolved in 15 minutes, go to Step 2 prochlorperazine (COMPAZINE). Irritant. $Given 05/27/2022 8:32 PM [facility] 4 mg oxyCODONE (ROXICODONE) tablet 5 mg 5 mg, Oral, ONCE, On Fri05/28/22 at 1040, For 1 dose $Given 05/28/2022 10:59 AM [facility] 5 mg pantoprazole (PROTONIX) EC tablet 40 mg 40 mg, Oral, EVERY MORNING BEFORE BREAKFAST, First dose on Fri05/28/22 at 0730 $Given 05/29/2022 6:24 AM [facility] 40 mg $Given 05/28/2022 1:54 PM [facility] 40 mg senna-docusate (SENOKOT-S/PERICOLACE) 8.6-50 MG per tablet 1 tablet 1 tablet, Oral, 2 TIMES DAILY PRN, constipation, Starting on Fri05/27/22 at 2023, If no bowel movement in 24 hours, [...] 2 TIMES DAILY PRN, constipation, Starting on Fri05/27/22 at 2023, IF more than 1 constipation PRN medication [...] Intracatheter, EVERY 8 HOURS, First dose on Fri05/27/22 at 2024, to lock peripheral IV dormant line $Given 05/29/2022 1:08 PM [facility] 3 mLs $Given 05/28/2022 11:36 PM [facility] 3 mLs $Given 05/28/2022 8:35 PM [facility] 3 mLs sodium zirconium cyclosilicate (LOKELMA) packet 10 g 10 g, Oral, EVERY 8 HOURS, First dose on Fri05/27/22 at 1700, Administer at least 2 hours before or 2 hours after other oral medications. Empty the entire contents of packet into at least 3 tablespoons of water, stir well and drink immediately $Given 05/28/2022 1:13 AM [facility] 10 g $Given 05/27/2022 5:46 PM [facility] 10 g witch kimmie-glycerin (TUCKS) pad Topical, EVERY 1 HOUR PRN, hemorrhoids, Starting on Fri05/28/22 at 0149, Apply to hemorrhoids. This product or its equivalent is supplied by [facility]. It is NOT STOCKED by Pharmacy. documented in this encounter Active and Recently Administered Medications Times are shown in [facility]. Scheduled Medication Order 05/27/2022 05/28/2022 05/29/2022 - MEDICATION INSTRUCTIONS for Dialysis Patients - SEE ADMIN INSTRUCTIONS, Starting on Fri05/28/22 at 1335, Until Fri05/29/22 at 1643, Do not give any medication that may affect blood pressure or volume before dialysis. The following medications may be removed by dialysis and should be given after dialysis: gabapentin, ampicillin/sulbactam, lisinopril, minoxidil. 0.9% sodium chloride BOLUS (COMPLETED) Intravenous, 1,000 mL, ONCE, at 1,000 mL/hr, Administer over 1 Hours, On Fri05/27/22 at 1450, For 1 dose 1500 ($New Bag - Provider: Abena Sykes RN) 0.9% sodium chloride BOLUS (COMPLETED) Intravenous, 250 mL, ONCE IN DIALYSIS/CRRT, On Fri05/28/22 at 0715, For 1 dose, For patient prime during dialysis, Dialysis 1128 ($New Bag - Provider: Itzel Barksdale RN) 0.9% sodium chloride BOLUS (COMPLETED) Hemodialysis Machine, 300 mL, ONCE, On Fri05/28/22 at 0715, For 1 dose, For Dialyzer Prime. (In Dialyzer), Dialysis 1128 ($New Bag - Provider: Itzel Barksdale RN) amLODIPine (NORVASC) tablet 10 mg 10 mg, Oral, DAILY, First dose on Fri05/28/22 at 0800 1354 ($Given - Provider: Diane Causey, IOANA) 0826 ($Given - Provider: Katerine Sebastian, IOANA) amoxicillin-clavulanate (AUGMENTIN) 500-125 MG per tablet 1 tablet (CANCELED) STAT, 1 tablet, Oral, EVERY 12 HOURS SCHEDULED, First dose on Fri05/27/22 at 2105, Indications: Dental infection 2213 ($Given - Provider: Mor Malcolm RN) 0800 (Canceled Entry - Provider: Alvaro Draper MD - Comment: Automatically canceled at discontinue of medication order) ampicillin-sulbactam (UNASYN) 3 g vial to attach to NS 100 mL bag STAT, 3 g, Intravenous, EVERY 24 HOURS, First dose on Fri05/28/22 at 2000, Indications: dental infection 2020 ($New Bag - Provider: Promise Watts, IOANA) calcium gluconate 1 g in 50 mL sodium chloride intermittent infusion (premix) (COMPLETED) 1 g, Intravenous, Administer over 15 Minutes, ONCE, On Fri05/27/22 at 1650, For 1 dose, Begin infusion before dextrose and insulin but do not delay administration of dextrose and insulin for completion of calcium infusion. (Maximum infusion rate of 150 mg/minute) Do not infuse in the same IV line as phosphate-containing solutions 1650 ($Given - Provider: Nikolas Mcnamara RN) carvedilol (COREG) tablet 12.5 mg 12.5 mg, Oral, 2 TIMES DAILY WITH MEALS, First dose on Fri05/27/22 at 2025 2103 ($Given - Provider: Mor Malcolm RN) 1356 (Not Given - Provider: Diane Causey, IOANA - Reason: Patient/family refused - Comment: I dont take this because it causes hallucinations)1817 ($Given - Provider: Promise Watts, IOANA) 0826 (Not Given - Provider: Katerine Sebastian, IOANA - Reason: Patient/family refused) docusate (COLACE) 50 MG/5ML liquid 100 mg (COMPLETED) 100 mg, Oral, ONCE, On Fri05/27/22 at 1725, For 1 dose, FOR EAR Hold for loose stools. 1743 ($Given - Provider: Abena Sykes, IOANA) furosemide (LASIX) injection 40 mg (COMPLETED) 40 mg, Intravenous, ONCE, Administer over 1-3 Minutes, On Fri05/27/22 at 1700, For 1 dose 1723 ($Given - Provider: Abena Sykes RN) gabapentin (NEURONTIN) capsule 100 mg 100 mg, Oral, AT BEDTIME, First dose on Fri05/27/22 at 2200 2130 (Not Given - Provider: Mor Malcolm RN - Reason: Patient/family refused) 211 (Not Given - Provider: Leslie Schneider LPN - Reason: Patient/family refused) heparin (porcine) injection (COMPLETED) 500 Units, Hemodialysis Machine OR IV Push, ONCE IN DIALYSIS/CRRT, On Fri05/28/22 at 0715, For 1 dose, LOADING DOSE Administer loading dose prior to heparin infusion. PRE DIALYSIS RUN Dialysis, Dialysis 1127 ($Given - Provider: Itzel Barksdale RN) heparin 1000 unit/mL DIALYSIS Cath LOCK - RED Lumen(Linked Group 1) 1,300-2,600 Units (1.3-2.6 mL), Intracatheter, ONCE IN DIALYSIS/CRRT, On Fri05/28/22 at 0715, For 1 dose, Indications: For DIALYSIS Catheter LOCK, To RED lumen for dialysis catheter lock. DURING HEMODIALYSIS/LOCK (FROM STOCK) Administer volume specific to catheter lumen., Dialysis 0715 (Canceled Entry - Provider: Orders Generic Provider - Comment: Automatically canceled at discontinue of medication order) heparin 1000 unit/mL DIALYSIS Cath LOCK -BLUE Lumen(Linked Group 2) 1,300-2,600 Units (1.3-2.6 mL), Intracatheter, ONCE IN DIALYSIS/CRRT, On Fri05/28/22 at 0715, For 1 dose, Indications: For DIALYSIS Catheter LOCK, To BLUE lumen for dialysis catheter lock. DURING HEMODIALYSIS/CRRT (FROM STOCK) Administer volume specific to catheter lumen., Dialysis 0715 (Canceled Entry - Provider: Orders Generic Provider - Comment: Automatically canceled at discontinue of medication order) hydrALAZINE (APRESOLINE) tablet 50 mg 50 mg, Oral, 2 TIMES DAILY, First dose on Fri05/27/22 at 202 2103 ($Given - Provider: Mor Malcolm RN) 1400 ($Given - Provider: Diane Causey RN)202 ($Given - Provider: Promise Watts, IOANA) 0827 ($Given - Provider: Katerine Sebastian, IOANA) labetalol (NORMODYNE/TRANDATE) injection 10 mg (COMPLETED) 10 mg, Intravenous, ONCE, On Fri05/27/22 at 1730, For 1 dose, PROTECT FROM LIGHT. 1742 ($Given - Provider: Abena Sykes RN) lisinopril (ZESTRIL) tablet 20 mg 20 mg, Oral, DAILY, First dose on Fri05/28/22 at 0800, This therapy was substituted for benazepril (Lotensin) 20 mg daily. 1354 ($Given - Provider: Diane Causey RN) 0826 ($Given - Provider: Katerine Sebastian RN) minoxidil (LONITEN) tablet 2.5 mg 2.5 mg, Oral, DAILY, First dose on Fri05/28/22 at 0800 0643 (Canceled Entry - Provider: Pau Damico RN)0826 ($Given - Provider: Katerine Sebastian RN) oxyCODONE (ROXICODONE) tablet 5 mg (COMPLETED) 5 mg, Oral, ONCE, On Fri05/28/22 at 1040, For 1 dose 1059 ($Given - Provider: Katerine Burns RN) pantoprazole (PROTONIX) EC tablet 40 mg 40 mg, Oral, EVERY MORNING BEFORE BREAKFAST, First dose on Fri05/28/22 at 0730 1354 ($Given - Provider: Diane Causey RN) 0624 ($Given - Provider: Pau Damico, IOANA)0730 (Canceled Entry - Provider: Pau Damico RN) sodium chloride (PF) 0.9% PF flush 3 mL 3 mL, Intracatheter, EVERY 8 HOURS, First dose on Fri05/27/22 at 2024, to lock peripheral IV dormant line 2131 (Canceled Entry - Provider: Mor Malcolm RN) 0536 ($Given - Provider: Cintia Steele RN)1508 ($Given - Provider: Diane Marium, RN)2035 ($Given - Provider: Promise Watts, IOANA)2336 ($Given - Provider: Pau Damico, IOANA) 0425 (Canceled Entry - Provider: Pau Damico RN - Comment: given during assessment)1308 ($Given - Provider: Debi Nicholson, IOANA) sodium chloride 0.9% DIALYSIS Cath LOCK - BLUE Lumen(Linked Group 2) 10 mL, Intracatheter, ONCE IN DIALYSIS/CRRT, On Fri05/28/22 at 0715, For 1 dose, To the BLUE Lumen for Dialysis catheter lock. DURING HEMODIALYSIS/CRRT (FROM STOCK) Flush Lumen with the sodium chloride 0.9% in preparation to LOCK the lumen then flush with heparin to LOCK the dialysis lumen., Dialysis 0715 (Canceled Entry - Provider: Orders Generic Provider - Comment: Automatically canceled at discontinue of medication order) sodium chloride 0.9% DIALYSIS Cath LOCK - RED Lumen(Linked Group 1) 10 mL, Intracatheter, ONCE IN DIALYSIS/CRRT, On Fri05/28/22 at 0715, For 1 dose, To the RED Lumen for Dialysis catheter lock DURING HEMODIALYSIS/CRRT (FROM STOCK) Flush Lumen with the sodium chloride 0.9% in preparation to LOCK the lumen then flush with heparin to LOCK the dialysis lumen., Dialysis 0715 (Canceled Entry - Provider: Orders Generic Provider - Comment: Automatically canceled at discontinue of medication order) sodium zirconium cyclosilicate (LOKELMA) packet 10 g (CANCELED) 10 g, Oral, EVERY 8 HOURS, First dose on Fri05/27/22 at 1700, Administer at least 2 hours before or 2 hours after other oral medications. Empty the entire contents of packet into at least 3 tablespoons of water, stir well and drink immediately 1746 ($Given - Provider: Abena Sykes, IOANA) 0113 ($Given - Provider: Cintia Steele, IOANA)0900 (Canceled Entry - Provider: Dalton Mendieta MD - Comment: Automatically canceled at discontinue of medication order) Continuous Medication Order 05/27/2022 05/28/2022 05/29/2022 heparin 10,000 units/10 mL infusion (DIALYSIS USE) 500 Units/hr (0.5 mL/hr), Hemodialysis Machine, CONTINUOUS, Starting on Fri05/28/22 at 0715, DURING DIALYSIS TREATMENT, Dialysis 1127 ($New Bag - Provider: Itzel Barksdale, IOANA) PRN Medication Order 05/27/2022 05/28/2022 05/29/2022 0.9% sodium chloride BOLUS Intravenous, 100-150 mL, EVERY 15 MIN PRN, Until hypotensive symptoms resolve, Starting on Fri05/28/22 at 0712, For 10 doses, Up to 1000 mL maximum total dose. Give if needed to manage Systolic Blood Pressure as indicated in Hemodialysis Single Treatment set up. Notify provider if patient blood pressure is not responsive with the bolus., Dialysis acetaminophen (TYLENOL) tablet 650 mg 650 mg, Oral, EVERY 4 HOURS PRN, mild pain, Starting on Fri05/28/22 at 0210, Maximum acetaminophen dose from all sources = 75 mg/kg/day not to exceed 4 grams/day. 0215 ($Given - Provider: Cintia Steele RN)0533 ($Given - Provider: Cintia Steele RN)0926 ($Given - Provider: Katerine Burns RN)1323 ($Given - Provider: Diane Causey RN)1925 ($Given - Provider: Promise Watts RN)2240 ($Given - Provider: Leslie Schneider LPN) 0624 ($Given - Provider: Pau Damico RN) acetaminophen (TYLENOL) tablet 975 mg (CANCELED) 975 mg, Oral, EVERY 8 HOURS PRN, mild pain, Starting on Fri05/27/22 at 4, Maximum acetaminophen dose from all sources = 75 mg/kg/day not to exceed 4 grams/day. 2235 ($Given - Provider: Mor Malcolm RN) hydrALAZINE (APRESOLINE) injection 10 mg 10 mg, Intravenous, EVERY 6 HOURS PRN, high blood pressure, give for SBP > 180, Starting on Fri05/27/22 at 2136 1355 (Not Given - Provider: Diane Causey RN - Reason: Order parameters not met) HYDROmorphone (DILAUDID) half-tab 1-2 mg 1-2 mg, Oral, EVERY 4 HOURS PRN, moderate pain, IF pain not managed with non-pharmacological and non-opioid interventions, Starting on Fri05/27/22 at 2023, May use concomitant with non-opioid analgesics. 0628 ($Given - Provider: Cintia Steele RN)1815 ($Given - Provider: Promise Watts, IOANA)2240 ($Given - Provider: Leslie Schneider LPN) 1013 ($Given - Provider: Debi Nicholson, IOANA) HYDROmorphone (DILAUDID) injection 0.2 mg (COMPLETED) 0.2 mg, Intravenous, ONCE PRN, moderate pain, severe pain, Starting on Fri05/27/22 at 1445, For 1 dose, Notify the provider to assess for uncontrolled pain or analgesic side effects. Hold while on IV SKIP HOIST ENGINEER or with regular IV opioid dosing. 1500 ($Given - Provider: Abena Sykes RN) HYDROmorphone (DILAUDID) injection 0.2 mg (CANCELED) 0.2 mg, Intravenous, EVERY 2 HOURS PRN, moderate pain, IF patient cannot take oral opioid OR IF pain not managed with non-pharmacological, non-opioid, or oral opioid interventions if ordered, Starting on Fri05/27/22 at 2023, May use concomitant with non-opioid analgesics. 2035 ($Given - Provider: Mor Malcolm RN) HYDROmorphone (PF) (DILAUDID) injection 0.3-0.5 mg 0.3-0.5 mg, Intravenous, EVERY 2 HOURS PRN, moderate pain, severe pain, IF patient cannot take oral opioid OR IF pain not managed with non-pharmacological, non-opioid, or oral opioid interventions if ordered, Starting on Fri05/27/22 at 205, May use concomitant with non-opioid analgesics. 2201 ($Given - Provider: Mor Malcolm RN) 0114 ($Given - Provider: Cintia Steele RN)0538 ($Given - Provider: Cintia Steele RN - Comment: scanned prior)0836 ($Given - Provider: Katerine Burns, RN)1322 ($Given - Provider: Diane Causey, IOANA)1518 ($Given - Provider: Diane Causey, IOANA) 0625 ($Given - Provider: Pau Damico RN)1308 ($Given - Provider: Debi Nicholson RN) HYDROmorphone (PF) (DILAUDID) injection 0.5 mg (COMPLETED) 0.5 mg, Intravenous, ONCE PRN, moderate pain, severe pain, Starting on Fri05/27/22 at 1544, For 1 dose, Notify the provider to assess for uncontrolled pain or analgesic side effects. Hold while on IV SKIP HOIST ENGINEER or with regular IV opioid dosing. 1636 ($Given - Provider: Nikolas Mcnamara RN) hydrOXYzine (ATARAX) tablet 25 mg(Linked Group 3) 25 mg, Oral, EVERY 6 HOURS PRN, other, adjuvant pain, Starting on Fri05/28/22 at 0205, Start with 25 mg for the initial dose. If the 25 mg dose is ineffective, increase to the 50 mg dose at the next administration time and maintain further doses at 50 mg. If the 50 mg dose is ineffective, contact the provider. 0215 ($Given - Provider: Cintia Steele RN)0533 ($Given - Provider: Cintia Steele RN)1323 (See Alternative - Provider: Diane Causey RN)1817 (See Alternative - Provider: Promise Watts, IOANA) hydrOXYzine (ATARAX) tablet 50 mg(Linked Group 3) 50 mg, Oral, EVERY 6 HOURS PRN, other, adjuvant pain, Starting on Fri05/28/22 at 0205, Start with 25 mg for the initial dose. If the 25 mg dose is ineffective, increase to the 50 mg dose at the next administration time and maintain further doses at 50 mg. If the 50 mg dose is ineffective, contact the provider. 0215 (See Alternative - Provider: Cintia Steele RN)0533 (See Alternative - Provider: Cintia Steele, IOANA)1323 ($Given - Provider: Diane Causey RN)1817 ($Given - Provider: Promise Watts RN) lidocaine (LMX4) cream Topical, EVERY 1 HOUR PRN, pain, with VAD insertion, Starting on Fri05/27/22 at 2024, Apply at least 30 minutes prior to [...] mild pain with VAD insertion, Starting on Fri05/27/22 at 2023, MAX dose 1 mL subcutaneous OR intradermal along the side of the vein in divided doses as needed for VAD insertion. Do NOT give if patient has a history of allergy to any local anesthetic or any osman product. Do NOT use both lidocaine intradermal/subcutaneous injection and the lidocaine cream on the same site. LORazepam (ATIVAN) injection 2 mg 2 mg, Intravenous, EVERY 3 MIN PRN, other, if seizure lasting more than 3 minutes. May repeat once if seizure activity is still present 3 minutes after the initial dose., Starting on Fri05/27/22 at 2023, For 2 doses, This drug may cause significant respiratory depression. Monitor respiratory status and vital signs carefully for 1 hour after each dose. 2200 (Canceled Entry - Provider: Mor Malcolm RN) melatonin tablet 1 mg 1 mg, Oral, AT BEDTIME PRN, sleep, Starting on Fri05/27/22 at 2023, Do not give unless at least 6 hours of uninterrupted sleep is expected. ondansetron (ZOFRAN ODT) ODT tab 4 mg(Linked Group 4) 4 mg, Oral, EVERY 6 HOURS PRN, nausea, vomiting, Starting on Fri05/27/22 at 2023, This is Step 1 of nausea and vomiting management. If nausea not resolved in 15 minutes, go to Step 2 prochlorperazine (COMPAZINE). With dry hands, peel back foil backing and gently remove tablet. Do not push oral disintegrating tablet through foil backing. Administer immediately on tongue and oral disintegrating tablet dissolves in seconds, then swallow with saliva. Liquid not required. 2031 (See Alternative - Provider: Mor Malcolm RN) ondansetron (ZOFRAN) injection 4 mg(Linked Group 4) 4 mg, Intravenous, EVERY 6 HOURS PRN, nausea, vomiting, Administer over 2-5 Minutes, Starting on Fri05/27/22 at 2023, Give IF patient unable to tolerate oral medication. This is Step 1 of nausea and vomiting management. If nausea not resolved in 15 minutes, go to Step 2 prochlorperazine (COMPAZINE). Irritant. 2031 ($Given - Provider: Mor Malcolm RN) senna-docusate (SENOKOT-S/PERICOLACE) 8.6-50 MG per tablet 1 tablet(Linked Group 5) 1 tablet, Oral, 2 TIMES DAILY PRN, constipation, Starting on Fri05/27/22 at 2023, If no bowel movement in 24 hours, [...] 8.6-50 MG per tablet 2 tablet(Linked Group 5) 2 tablet, Oral, 2 TIMES DAILY PRN, constipation, Starting on Fri05/27/22 at 2023, IF more than 1 constipation PRN medication [...] or to lock dormant line, Starting on Fri05/27/22 at 2023 witch kimmie-glycerin (TUCKS) pad Topical, EVERY 1 HOUR PRN, hemorrhoids, Starting on Fri05/28/22 at 0149, Apply to hemorrhoids. This product or its equivalent is supplied by [employer]. It is NOT STOCKED by Pharmacy. Linked Groups Order Group 1: sodium chloride 0.9% DIALYSIS Cath LOCK - RED LumenJump to med 10 mL, Intracatheter, ONCE IN DIALYSIS/CRRT, On Fri05/28/22 at 0715, For 1 dose, To the RED Lumen for Dialysis catheter lock DURING HEMODIALYSIS/CRRT (FROM STOCK) Flush Lumen with the sodium chloride 0.9% in preparation to LOCK the lumen then flush with heparin to LOCK the dialysis lumen., Dialysis Followed by heparin 1000 unit/mL DIALYSIS Cath LOCK - RED LumenJump to med 1,300-2,600 Units (1.3-2.6 mL), Intracatheter, ONCE IN DIALYSIS/CRRT, On Fri05/28/22 at 0715, For 1 dose, Indications: For DIALYSIS Catheter LOCK, To RED lumen for dialysis catheter lock. DURING HEMODIALYSIS/LOCK (FROM STOCK) Administer volume specific to catheter lumen., Dialysis Group 2: sodium chloride 0.9% DIALYSIS Cath LOCK - BLUE LumenJump to med 10 mL, Intracatheter, ONCE IN DIALYSIS/CRRT, On Fri05/28/22 at 0715, For 1 dose, To the BLUE Lumen for Dialysis catheter lock. DURING HEMODIALYSIS/CRRT (FROM STOCK) Flush Lumen with the sodium chloride 0.9% in preparation to LOCK the lumen then flush with heparin to LOCK the dialysis lumen., Dialysis Followed by heparin 1000 unit/mL DIALYSIS Cath LOCK -BLUE LumenJump to med 1,300-2,600 Units (1.3-2.6 mL), Intracatheter, ONCE IN DIALYSIS/CRRT, On Fri05/28/22 at 0715, For 1 dose, Indications: For DIALYSIS Catheter LOCK, To BLUE lumen for dialysis catheter lock. DURING HEMODIALYSIS/CRRT (FROM STOCK) Administer volume specific to catheter lumen., Dialysis Group 3: hydrOXYzine (ATARAX) tablet 25 mgJump to med 25 mg, Oral, EVERY 6 HOURS PRN, other, adjuvant pain, Starting on Fri05/28/22 at 0205, Start with 25 mg for the initial dose. If the 25 mg dose is ineffective, increase to the 50 mg dose at the next administration time and maintain further doses at 50 mg. If the 50 mg dose is ineffective, contact the provider. Or hydrOXYzine (ATARAX) tablet 50 mgJump to med 50 mg, Oral, EVERY 6 HOURS PRN, other, adjuvant pain, Starting on Fri05/28/22 at 0205, Start with 25 mg for the initial dose. If the 25 mg dose is ineffective, increase to the 50 mg dose at the next administration time and maintain further doses at 50 mg. If the 50 mg dose is ineffective, contact the provider. Group 4: ondansetron (ZOFRAN ODT) ODT tab 4 mgJump to med 4 mg, Oral, EVERY 6 HOURS PRN, nausea, vomiting, Starting on Fri05/27/22 at 2023, This is Step 1 of nausea and [...] vomiting, Administer over 2-5 Minutes, Starting on Fri05/27/22 at 2023, Give IF patient unable to tolerate oral medication. This is Step 1 of nausea and vomiting management. If nausea not resolved in 15 minutes, go to Step 2 prochlorperazine (COMPAZINE). Irritant. Group 5: senna-docusate (SENOKOT-S/PERICOLACE) 8.6-50 MG per tablet 1 tabletJump to med 1 tablet, Oral, 2 TIMES DAILY PRN, constipation, Starting on Fri05/27/22 at 2023, If no bowel movement in 24 hours, [...] 2 TIMES DAILY PRN, constipation, Starting on Fri05/27/22 at 2023, IF more than 1 constipation PRN medication [...] stools. documented in this encounter Care Teams Photo Cartographer Relationship Specialty Start Date End Date No Ref-Primary, Physician PCP - General 04/14/22 documented as of this encounter
--- OUTSIDE RECORDS SUMMARY | 2023-05-08 16:22 | XMS_ITS ---
Author Name Unknown Organization [facility] Address [address] [place] [id number] Care Team Providers Care Heel Slugger Name Role Phone No Ref-Primary, Physician Primary Care Provider Transitional Care Management Status:Closed (Closed) Start date:07/05/2022 Enrollment date:07/05/2022 End date:07/22/2022 Close reason:Goals met Continued Care and Services Coordination
--- OUTSIDE RECORDS SUMMARY | 2023-05-08 16:22 | XMS_ITS ---
Author Name Unknown Organization [facility] Address [address] [place] [id number] Care Team Providers Care Toll Operator Name Role Phone No Ref-Primary, Physician Primary Care Provider Transitional Care Management Status:Closed (Closed) Start date:05/30/2022 Enrollment date:05/31/2022 End date:06/14/2022 Close reason:Goals met Continued Care and Services Coordination
--- OUTSIDE RECORDS SUMMARY | 2023-05-08 16:23 | XMS_ITS | Encounter Summary ---
Author Name Unknown Organization [facility] Address [address] [place] [id number] Care Team Providers Care Tungsten Tender Name Role Phone Elsewhere, Pcp Primary Care Provider Unavailabl e Encounter Details Date Type Department Care Team (Late st Contact Info) Description 04/08/2023 Orders Only Division of Nephrology and Hypertension, [facility], in [place], [place] [address] [place] [address] Drew Mo, HALLE, C.N.P., M.S.N. [address] [place] [address] Social History Tobacco Use Types Packs/Day Years [...] Date Recorded Dental: Regular Dentist Unknown 03/22/20 22 Employment Answer Date Recorded Employment status Temporarily disabled 3 Housing Stability Answer Date Recorded What is your living situation today? I have a [facility] place to live 11/14/2022 Sex and Gender Information Value Date Recorded Sex Assigned at Male 11/14/2022 11:03 AM CDT Gender Identity Male 11/14/2022 11:03 AM CDT Sexual Orientation Straight 11/14/2022 11 :03 AM CDT documented as of this encounter Plan of Treatment Not on file documented as of this encounter Visit Diagnoses Not on filedocumented in this encounter Care Teams Tungsten Tender Relationship Specialty Start Date End Date Elsewhere, Pcp PCP - General Internal Medicine 02/04/23 documented as of this encounter
--- OUTSIDE RECORDS SUMMARY | 2023-05-08 16:23 | XMS_ITS | Encounter Summary ---
Author Name Unknown Organization [facility] Address [address] [place] [address] Care Team Providers Care Box Tender Name Role Phone Elsewhere, Pcp Primary Care Provider Unavailabl e Encounter Details Date Type Department Care Team (Late st Contact Info) Description 04/02/2023 Orders Only Pharmacy Prior Auth [facility] [phone] Marko Hager Social History Tobacco Use Types Packs/Day Years [...] your living situation today? I have a [facility] place to live 11/14/2022 Sex and Gender Information Value Date Recorded Sex Assigned at Male 11/14/2022 11:03 AM CDT Gender Identity Male 11/14/2022 11:03 AM CDT Sexual Orientation Straight 11/14/2022 11 :03 AM CDT documented as of this encounter Plan of Treatment Not on file documented as of this encounter Visit Diagnoses Not on filedocumented in this encounter Care Teams Box Tender Relationship Specialty Start Date End Date Elsewhere, Pcp PCP - General Internal Medicine 02/04/23 documented as of this encounter
--- OUTSIDE RECORDS SUMMARY | 2023-05-08 16:23 | XMS_ITS | Encounter Summary ---
Author Name Unknown Organization [facility] Address [address] [place] [address] Care Team Providers Care [place] Utility Worker Name Role Phone Elsewhere, Pcp Primary Care Provider Unavailabl e Encounter Details Date Type Department Care Team (Late st Contact Info) Description 03/25/2023 Orders Only Division of Nephrology and Hypertension in [place], [place] [address] [place] [address] Garth Burdick Jr., D.O. [address] [place] [address] Social History Tobacco Use Types Packs/Day Years [...] your living situation today? I have a [facility] place to live 11/14/2022 Sex and Gender Information Value Date Recorded Sex Assigned at Male 11/14/2022 11:03 AM CDT Gender Identity Male 11/14/2022 11:03 AM CDT Sexual Orientation Straight 11/14/2022 11 :03 AM CDT documented as of this encounter Plan of Treatment Not on file documented as of this encounter Visit Diagnoses Not on filedocumented in this encounter Care Teams [employer] [place] Utility Worker Relationship Specialty Start Date End Date Elsewhere, Pcp PCP - General Internal Medicine 02/04/23 documented as of this encounter
--- OUTSIDE RECORDS SUMMARY | 2023-05-08 16:23 | XMS_ITS ---
Author Name Unknown Organization [facility] Address [address] [place] [address] Care Team Providers Care Lead Burner Supervisor Name Role Phone Elsewhere, Pcp Primary Care Provider Unavailabl e Procedures Procedure Name Priority Date/Time Associated Diagnosis [...] 12:47 AM CDT from Last 3 Months Allergies Active Allergy Reactions Criticality Noted Date Comments Adhesive Rash 11/06/2022 Diphenhydramine Hcl GI intolerance,Seizure 04/05/2022 Clonidine Rash Medium 12/10/2022 Coconut Oil Hives [...] Awareness 05/27/2022 Hyperkalemia 05/27/2022 Headache Unspecified 05/27/2022 Immunizations Name Administration Dates Next Due HepB [...] your living situation today? I have a [facility] place to live 11/14/2022 Sex and [...] Mass Index 22.45 11/21/2022 12:56 PM CDT Results * (ABNORMAL) Hemoglobin (02/07/2023 11:02 AM CDT) Only the most recent of2 resultswithin the time period is included. Hemoglobin 8.2(L) 13.2 - 16.6 g/dL 02/07/2023 11:51 AM CDT DTL Blood (Blood, Venous) 02/07/2023 11:02 AM CDT 02/07/2023 11:42 AM CDT Elvira Sanchez APRN, C.N.P., D.N .P. LAB BLOOD ADD-ON [facility] [address] [place] [address], [facility] DTL [facility] [address] [place] [address] * (ABNORMAL) CBC with Differential, Blood (02/07/2023 7:46 AM CDT) Only the most recent of4 resultswithin the time period is included. Hemoglobin 7.8(L) 13.2 - 16.6 g/dL 02/07/2023 [...] 7:46 AM CDT 02/07/2023 8:25 AM CDT Antonieta Eckert APRN.N.P., D.N .P. LAB BLOOD ADD-ON [facility] [address] [place] [address], [facility] DTL [facility] [address] [place] [address] [facility] [address] [place] [address] * (ABNORMAL) Basic Metabolic Panel (02/07/2023 7:46 AM CDT) Only the most recent of2 resultswithin the time period is included. [facility] Potassium, S 4.3 3.6 - 5.2 mmol/L [...] CDT 02/07/2023 8:40 AM CDT Elvira Sanchez APRN C.N.P., D.N .P. LAB BLOOD ADD-ON Performing Organization Address City/[facility]/ZIP Co de Phone Number [facility] [address] [place] [address], [facility] DTL [facility] [address] [place] [address] * Transfuse Red Blood Cells : (02/06/2023 1:13 PM CDT) Antonieta Eckert APRN.N.P., D.N .P. BLOOD TRANSFUSION ORDERABLES * Type and Screen (with Reflex Antibody ID) (02/06/2023 9:37 AM CDT) [facility] Pos Not applicable 02/06/2023 10:06 AM CDT STRM Antibody Screen Negative Negative 02/06/2023 10:21 AM CDT STRM Type & Screen Expiration 02/09/2023 23:59 02/06/2023 10:06 AM CDT STRM Testing Location Brandy DEFAULT 02/06/2023 9:42 AM CDT STRM Blood (Blood, Venous) 02/06/2023 9:37 AM CDT 02/06/2023 9:42 AM CDT Elvira Sanchez APRN C.N.P., D.N .P. LAB BLOOD BANK TEST ORDERABLES Performing Organization Address [facility]/ZIP Co de Phone Number [facility] [address] [place] [address], [facility] STRM [facility] [address] [place] [address] * LD (Lactate Dehydrogenase) (02/06/2023 9:37 AM CDT) [facility] LD 164 122 - 222 U/L 02/06/2023 10:32 AM CDT DTL Blood (Blood, Venous) 02/06/2023 9:37 AM CDT 02/06/2023 10:15 AM CDT Elvira Sanchez APRN, C.N.P., D.N .P. LAB BLOOD NON ADD-ON [facility] [address] [place] [address], [facility] DTL [facility] [address] [place] [address] * Lactate (02/06/2023 9:37 AM CDT) Pathologist [facility] Lactate, P 0.6 0.5 - 2.2 mmol/L 02/06/2023 9:52 AM CDT STMA Blood (Blood, Venous) 02/06/2023 9:37 AM CDT 02/06/2023 9:41 AM CDT Mikey Orta M.D. LAB BLOOD NON ADD -ON Performing Organization Address City/[facility]/ZIP Co de Phone Number [facility] [address] [place] [address], [facility] STMA [facility] [address] [place] [address] * Glucose, POCT (02/06/2023 8:04 AM CDT) Glucose, POCT, B 119 70 - 140 mg/dL 02/06/2023 8:06 AM CDT PCLX Site Capillary 02/06/2023 8:06 AM CDT PCLX Blood 02/06/2023 8:04 AM CDT 02/06/2023 8:06 AM CDT Unknown Provider LAB POCT ORDERABLES- MANUAL POC [facility] [address] [place] [address], [facility] PCLX [facility] POC [address] [place] [address] * (ABNORMAL) Renal Function Panel (02/06/2023 7:40 [...] APRN, C.N.P., D.N .P. LAB BLOOD ADD-ON [facility] [address] [place] [address], [facility] [address] [place] [address] * (ABNORMAL) Hepatic Function Panel (02/06/2023 7:40 [...] CDT Mikey Orta M.D. LAB BLOOD ADD-ON [facility] [address] [place] [address], [facility] [address] [place] [address] * (ABNORMAL) Soluble Transferrin Receptor (sTfR) (02/06/2023 7:40 AM CDT) Soluble Transferrin Receptor (sTfR) 1.2(L) 1.8 - 4.6 mg/L 02/06/2023 9:58 AM CDT DTL Comment: ----ADDITIONAL INFORMATION---- It is reported that Americans may have slightly higher values. Blood (Blood, Venous) 02/06/2023 7:40 AM CDT 02/06/2023 9:10 AM CDT Elvira Sanchez APRN, C.N.P., PauloN Hugo LAB BLOOD ADD-ON Performing Organization Address [facility] Co de Phone Number [facility] [address] [place] [address], [facility] DTL [facility] [address] [place] [address] * (ABNORMAL) SPSMA Result (02/06/2023 7:40 AM [...] no diagnostic abnormalities are seen. Reviewed by: Oleg 02/06/2023 10:25 AM CDT DHPM Blood 02/06/2023 7:40 AM CDT 02/06/2023 9:02 AM CDT Mikey Orta M.D. LAB BLOOD ADD-ON Performing Organization Address [facility]/ZIP Co de Phone Number [facility] [address] [place] [address], [facility] DHPM [facility] [address] [place] [address] * (ABNORMAL) Iron and Total Iron-Binding Capacity [...] .P. LAB BLOOD ADD-ON Performing Organization Address City/[facility] Co de Phone Number [facility] [address] [place] [address], [address] [address] * (ABNORMAL) Phosphorus Inorganic (02/06/2023 7:40 AM CDT) Only the most recent of2 resultswithin the time period is included. Phosphorus (Inorganic), S 5.9(H) 2.5 - 4.5 mg/dL 02/06/2023 8:47 AM CDT DTL Blood (Blood, Venous) 02/06/2023 7:40 AM CDT 02/06/2023 8:26 AM CDT Elvira Sanchez APRN, C.N.P., D.N .P. LAB BLOOD ADD-ON Performing Organization Address [facility] Co de Phone Number [facility] [address] [place] [address], [facility] [address] [place] [address] * Magnesium (02/06/2023 7:40 AM CDT) Only the most recent of3 resultswithin the time period is included. Magnesium, S 1.9 1.7 - 2.3 mg/dL 02/06/2023 8:49 AM CDT DTL Blood (Blood, Venous) 02/06/2023 7:40 AM CDT 02/06/2023 8:24 AM CDT Kanchan Eckert APRNN.P., D.N .P. LAB BLOOD ADD-ON Performing Organization Address City/[facility]/ZIP Co de Phone Number [facility] [address] [place] [address], [facility] [address] [place] [address] * Hemoglobin A1c (02/06/2023 7:40 AM CDT) Hemoglobin A1c, B 4.6 4.0 - 5.6 % 02/06/2023 4:41 PM CDT DTL Blood (Blood, Venous) 02/06/2023 7:40 AM CDT 02/06/2023 4:23 PM CDT Kanchan Eckert APRNN.P., D.N .P. LAB BLOOD ADD-ON Performing Organization Address City/[facility] Co de Phone Number [facility] [address] [place] [address], [facility] [address] [place] [address] * Folate (02/06/2023 7:40 AM CDT) Only the most recent of2 resultswithin the time period is included. Folate, S 7.3 >=4.0 mcg/L 02/06/2023 10:22 AM CDT DTL Blood (Blood, Venous) 02/06/2023 7:40 AM CDT 02/06/2023 9:10 AM CDT Antonieta Eckert APRN.N.P., D.N .P. LAB BLOOD ADD-ON Performing Organization Address City/[facility] Co de Phone Number [facility] [address] [place] [address], [facility] [address] [place] [address] * (ABNORMAL) Ferritin (02/06/2023 7:40 AM CDT) Only the most recent of2 resultswithin the time period is included. Ferritin, S 1226(H) 31 - 409 mcg/L 02/06/2023 9:58 AM CDT DTL Blood (Blood, Venous) 02/06/2023 7:40 AM CDT 02/06/2023 9:10 AM CDT Elvira Sanchez APRN, C.N.P., D.N .P. LAB BLOOD ADD-ON [facility] [address] [place] [address], [facility] [address] [place] [address] * ECG 12 Lead (02/05/2023 7:57 PM CDT) Only the most recent of3 resultswithin the time period is included. Pathologist [facility] Ventricular Rate ECG/Min 89 BPM MUSE TN Interval 142 ms MUSE QRSD Interval 100 ms MUSE QT Interval 410 ms MUSE QTC Interval 498 ms MUSE P [place] 62 degrees MUSE R [place] 57 degrees MUSE T Wave [place] 104 degrees MUSE 02/05/2023 7:57 PM CDT 02/06/2023 8:02 AM CDT Impressions MUSE - 02/06/2023 8:02 AM CDT Sinus rhythm Premature ventricular complexes Minimal voltage criteria for LVH, may be normal variant ST and T wave abnormality, consider lateral ischemia Prolonged QT When compared with ECG of 05-FEB-2023 16:42, Non-specific intra-ventricular conduction delay is no longer present Reviewed by Perfecto Lugo III, ELENA Narrative Procedure Note Abdelrahman Strickland M.D., Ph.D. - 02/06/2023 IMPRESSION: Sinus rhythm Premature ventricular complexes Minimal voltage criteria for LVH, may be normal variant ST and T wave abnormality, consider lateral ischemia Prolonged QT When compared with ECG of 11-OCT-2023 16:42, Non-specific intra-ventricular conduction delay is no [...] LAB BLOOD ADD -ON Performing Organization Address City/[facility]/ZIP Co de Phone Number [facility] [address] [place] [address], [facility] [address] [place] [address] * Methylmalonic Acid (MMA), Quantitative (02/05/2023 9:58 AM CDT) Methylmalonic Acid, QN, S 0.32 <=0.40 nmol/mL 02/07/2023 8:32 AM CDT DTL Comment: ----ADDITIONAL INFORMATION---- This test was developed and its performance characteristics determined by [facility] in a manner consistent with CLIA requirements. This test has not been cleared or approved by the U.S. Food and Drug Administration. Blood (Blood, Venous) 02/05/2023 9:58 AM CDT 02/06/2023 7:37 AM CDT Kanchan Eckert APRNNHugo, PauloN Rashida. LAB BLOOD ADD-ON Performing Organization Address [facility] Co de Phone Number [facility] [address] [place] [address], [facility] [place] [address] * (ABNORMAL) Vitamin B12 Assay (02/05/2023 9:58 AM CDT) [facility] Vitamin B12 Assay, S 163(L) 180 - [...] LAB BLOOD ADD -ON Performing Organization Address [facility] Co de Phone Number [facility] [address] [place] [address], [facility] [address] [address] * CT Abdomen Pelvis Angiogram with IV [...] left kidney. Candi Hanson APRN, C.N.P., D.N.P. [facility] CT PROCEDURES * CT Head without IV Contrast (02/05/2023 1:13 AM CDT) Anatomical Region Laterality Modality Head, Neuroradiology RST LOS , Neuroradiology ARZ LOS, Neuroradiology FLA [facility] N/A Computed Tomography, Compute d Tomography 02/05/2023 [...] clear. IMPRESSION: No acute intracranial findings. Renay ALBA CT TN OCEDURES * CT Abdomen Pelvis without IV [...] Nobowel obstruction. No perforation. Renay Bolton M.D. IMG CT TN OCEDURES * (ABNORMAL) Dipstick, Urine (02/05/2023 12:47 [...] CDT Bishop Melgar M.D. LAB URINE ORDERABLES [facility] [address] [place] [address], [place] DTL [facility] [address] [place] [address] * Microscopic Manual (02/05/2023 12:47 AM CDT) Pathologist [facility] Microscopy Normal 02/05/2023 2:21 AM CDT DTL [...] M.D. LAB URINE ORDERABLES Performing Organization Address City/[facility]/ZIP Co de Phone Number [facility] [address] [place] [address], [facility] [address] [place] [address] * Bacterial Culture, Aerobic + Susceptibility, Urine (02/05/2023 12:47 AM CDT) [facility] Urine Culture No growth after 1 day of incubation. 02/06/2023 8:15 AM CDT DTL Urine (Urine, Midstream) 02/05/2023 12:47 AM CDT 02/05/2023 4:25 AM CDT Comment:Specimen Source Site : Urine Bishop Melgar M.D. LAB MICROBIOLOGY - G ENERAL ORDERABLES Performing Organization Address City/[facility]/ZIP Co de Phone Number [facility] [address] [place] [address], [facility] [address] [place] [address] * pH, Urine (02/05/2023 12:47 AM CDT) Pathologist [facility] pH, U 7.1 4.5 - 8.0 02/05/2023 1:3 6 AM CDT DTL Urine 02/05/2023 12:4 7 AM CDT 02/05/2023 1:09 AM CDT Bishop Melgar M.D. LAB URINE ORDERABLES Performing Organization Address City/[facility]/ZIP Co de Phone Number [facility] [address] [place] [address], [facility] [address] [place] [address] * Osmolality, Urine (02/05/2023 12:47 AM CDT) Pathologist [facility] Osmolality, U 331 150 - 1150 mOsm/kg 02/05/2023 1:36 AM CDT DT Urine 02/05/2023 12:4 7 AM CDT 02/05/2023 1:09 AM CDT Bishop Melgar M.D. LAB URINE ORDERABLES Performing Organization Address City/[facility] Co de Phone Number [facility] [address] [place] [address], [facility] [address] [place] [address] * (ABNORMAL) Urinalysis with Microscopic: Urine, Midstream (02/05/2023 12:47 AM CDT) Pathologist [facility] Source Urine, Urine, Midstream 02/05/2023 1:09 AM CDT DTL Color, U Yellow 02/05/2023 1:09 AM CDT DTL Clarity, U Clear 02/05/2023 1:09 AM CDT DTL Protein, U 231(H) <26 mg/dL 02/05/2023 2:01 AM CDT DTL Protein/Osmol ality 6.98(H) <0.42 ratio 02/05/2023 2:01 AM CDT DTL Predicted 24 HR Protein, U 5998(H) <229 mg/24 h 02/05/2023 2:01 AM CDT DTL Predicted Range 1904-05067 mg/24 h 02/05/2023 2:01 AM CDT DTL Urine (Urine, Midstream) 02/05/2023 12:47 AM CDT 02/05/2023 1:09 AM CDT Bishop Melgar M.D. LAB URINE ORDERABLES [facility] [address] [place] [address], [facility] DTL [facility] [address] [place] [address] from Last 3 Months
--- OUTSIDE RECORDS SUMMARY | 2023-05-08 16:23 | XMS_ITS | Encounter Summary ---
Author Name Unknown Organization [facility] Address [address] [place] [address] Care Team Providers Care Cook Pie Name Role Phone Elsewhere, Pcp Primary Care Provider Unavailabl e Encounter Details Date Type Department Care Team ([facility] st Contact Info) Description 04/15/2023 Orders Only Division of Nephrology and Hypertension in [place], [place] [address] [place] [phone] Concetta Mejía M.D., Ph.D. [address] [place] [address] Social History Tobacco Use Types Packs/Day Years [...] your living situation today? I have a [facility] place to live 11/14/2022 Sex and Gender Information Value Date Recorded Sex Assigned at Male 11/14/2022 11:03 AM CDT Gender Identity Male 11/14/2022 11:03 AM CDT Sexual Orientation Straight 11/14/2022 11 :03 AM CDT documented as of this encounter Plan of Treatment Not on file documented as of this encounter Visit Diagnoses Not on filedocumented in this encounter Care Teams Cook Pie Relationship Specialty Start Date End Date Elsewhere, Pcp PCP - General Internal Medicine 02/04/23 documented as of this encounter
--- OUTSIDE RECORDS SUMMARY | 2023-05-08 16:23 | XMS_ITS ---
Author Name Unknown Organization [facility] Address [address] [place] [address] Care Team Providers Care Stitcher Set Up Operator Automatic Name Role Phone Unavailable Unavailable Unavailable Surgery Details Not on file Complications Check Surgery Details section. Procedure Estimated Blood Loss Check Surgery Details section. Procedure Findings Check Surgery Details section. Procedure Specimens Taken Check Surgery Details section.
--- OUTSIDE RECORDS SUMMARY | 2023-05-08 16:23 | XMS_ITS | Encounter Summary ---
Author Name Unknown Organization [facility] Address [address] [place] [address] Care Team Providers Care Recreation Clerk Name Role Phone Elsewhere, Pcp Primary Care Provider Unavailabl e Reason for Referral * Medication Prior Authorization - Closed Specialty Diagnoses / Procedures Referred By Mel quiroz Referred To Contact Drew Mo APRN, C.N.Corrine, M.S.N. [address] [place] [phone] Referral ID Status Reason Start Date Expiration Date Visits Re quested Visits Authorized [id number] Closed 1 1 AL DISPLAY MANAGER Encounter Details Date Type Department Care Team (Late st Contact Info) Description 04/01/2023 Orders Only Division of Nephrology and Hypertension, [facility], in [place], [place] [address] [place] [phone] Drew Mo APRN, C.N.PJuan C, M.S.N. [address] [place] [phone] Social History Tobacco Use Types Packs/Day Years [...] your living situation today? I have a [facility] place to live 11/14/2022 Sex and Gender Information Value Date Recorded Sex Assigned at Male 11/14/2022 11:03 AM CDT Gender Identity Male 11/14/2022 11:03 AM CDT Sexual Orientation Straight 11/14/2022 11 :03 AM CDT documented as of this encounter Plan of Treatment Not on file documented as of this encounter Visit Diagnoses Not on filedocumented in this encounter Care Teams Recreation Clerk Relationship Specialty Start Date End Date Elsewhere, Pcp PCP - General Internal Medicine 02/04/23 documented as of this encounter
--- OUTSIDE RECORDS SUMMARY | 2023-05-08 16:23 | XMS_ITS | Referral Summary ---
Author Name Unknown Organization [facility] Address [address] [place] [address] Care Team Providers Care Kick Boxer Name Role Phone Elsewhere, Pcp Primary Care Provider Unavailabl e Source Comments Patient records contain information from all sites at [facility]. For routine questions regarding patient records, call [phone] during business hours, M-F 8:00 AM - 5:00 PM Central Time. Record requests for emergency care only can be directed to [phone] at any time.[facility] Encounters Date Type Department Care Team Description 04/15/2023 Orders Only Division of Nephrology and Hypertension in [place], [place] [address] [place] [address] Concetta Mejía M.D., Ph.D. 04/08/2023 Orders Only Division of Nephrology and Hypertension, [facility], in [place], [place] [address] [place] [address] Drew Mo APRN, C.N.P., M.S.N. 04/02/2023 Orders Only Pharmacy Prior Auth [phone] Marko Hager 04/01/2023 Orders Only Division of Nephrology and Hypertension, [facility], in [place], [place] [address] [place] [address] Drew Mo APRN C.N.P., M.S.N. 03/25/2023 Orders Only Division of Nephrology and Hypertension in [place], [place] [address] [place] [address] Garth Burdick Jr., D.O. 03/18/2023 Orders Only Division of Nephrology and Hypertension, [facility], in [place], [place] [address] [place] [address] Drew Mo APRN, C.N.PJuan C, M.S.N. 03/04/2023 Orders Only Division of Nephrology and Hypertension, [facility], in [place], [place] [address] [place] [address] Drew Mo APRN, C.N.P., M.S.N. 02/24/2023 Orders Only Division of Nephrology and Hypertension, [facility], in [place], [place] [address] [place] [address] Drew Mo APRN, C.N.P., M.S.N. 02/19/2023 Orders Only Division of Nephrology and Hypertension, [facility], in [place], [place] [address] [place] [address] Drew Mo APRN, C.N.P., M.S.N. 02/11/2023 Orders Only Division of Nephrology and Hypertension in [place], [place] [address] [place] [address] Concetta Mejía M.D., Ph.D. 02/04/2023 11:19 PM CDT - 02/07/2023 2:40 PM CDT Hospital Encounter [facility], [facility], [facility], Eighth Floor [address] [place] [phone] Renay Hernandez M.D. Beiermann, Elizabeth W, M.D. Abdominal Pain (Primary Dx); Cyst Renal; Hemodialysis Status (HCC); Hyperkalemia Discharge Disposition: Home or Self Care from Last 3 Months Allergies Active Allergy Reactions Criticality Noted Date Comments Adhesive Rash 11/06/2022 Diphenhydramine Hcl GI intolerance,Seizure 04/0 05/2022 Clonidine Rash Medium 12/10/2022 Coconut Oil Hives [...] 10/20/2022 Excess Fluid Volume 07/28/2022 10/21/19 23 Immunizations Name Administration Dates Next Due HepB [...] your living situation today? I have a [facility] to live 11/14/2022 Sex and [...] 11/21/2022 12:56 PM CDT Plan of Treatment Not on file Medical Devices Implanted Type Area Senior [id number] Developer Device Identifier Shelf Expiration Date Model / [...] APRN, C.N.P., D.N .P. LAB BLOOD ADD-ON [facility] [address] [place] [address], [facility] [place] [address] [place] [address] * (ABNORMAL) CBC with Differential, Blood (02/07/2023 [...] - 6.45 x10(9)/L 02/07/2023 8:43 AM CDT [facility] Lymphocytes 1.88 0.95 - 3.07 x10(9)/L 02/07/2023 [...] APRN, C.N.P., D.N .P. LAB BLOOD ADD-ON [facility] [address] [place] [address], [facility] [place] [address] [place] [address] [facility] [address] [place] [address] * (ABNORMAL) Basic Metabolic Panel (02/07/2023 7:46 [...] APRN, C.N.P., D.N .P. LAB BLOOD ADD-ON [facility] [address] [place] [address], [facility] [place] [address] [place] [address] * Transfuse Red Blood Cells : (02/06/2023 1:13 PM CDT) Antonieta Eckert APRN.N.P., D.N .P. BLOOD TRANSFUSION ORDERABLES * Type and Screen (with Reflex Antibody ID) (02/06/2023 9:37 AM CDT) [facility] Pos Not applicable 02/06/2023 10:06 AM CDT STRM Antibody Screen Negative Negative 02/06/2023 10:21 AM CDT STRM Type & Screen Expiration 02/09/2023 23:59 02/06/2023 10:06 AM CDT STRM Testing Location [place] DEFAULT 02/06/2023 9:42 AM CDT STRM Blood (Blood, Venous) 02/06/2023 9:37 AM CDT 02/06/2023 9:42 AM CDT Antonieta Eckert APRN.N.P., D.N .P. LAB BLOOD BANK TEST ORDERABLES [facility] [address] STRM [facility] [address] [place] [address] * LD (Lactate Dehydrogenase) (02/06/2023 9:37 AM CDT) [facility] LD 164 122 - 222 U/L 02/06/2023 10:32 AM CDT DTL Blood (Blood, Venous) 02/06/2023 9:37 AM CDT 02/06/2023 10:15 AM CDT Elvira Sanchez APRN, C.N.P., D.N .P. LAB BLOOD NON ADD-ON [facility] [address] [place] [address], [facility] DTL [facility] [address] [place] [address] * Lactate (02/06/2023 9:37 AM CDT) Lactate, P 0.6 0.5 - 2.2 mmol/L 02/06/2023 9:52 AM CDT STMA Blood (Blood, Venous) 02/06/2023 9:37 AM CDT 02/06/2023 9:41 AM CDT Mikey Orta M.D. LAB BLOOD NON ADD -ON [facility] 200 [place] [address], [facility] [address] [place] [address] * Glucose, POCT (02/06/2023 8:04 AM CDT) Pathologist [facility] Glucose, POCT, B 119 70 - 140 mg/dL 02/06/2023 8:06 AM CDT PCLX Site Capillary 02/06/2023 8:06 AM CDT PCLX Blood 02/06/2023 8:04 AM CDT 02/06/2023 8:06 AM CDT Unknown Provider LAB POCT ORDERABLES- MANUAL Performing Organization Address City/[facility]/ZIP Co de Phone Number POC [facility] [address] [place] [address], [facility] PCLX [facility] POC [address] [place] [address] * (ABNORMAL) Renal Function Panel (02/06/2023 7:40 [...] APRN, C.N.P., D.N .P. LAB BLOOD ADD-ON [address] [address], [facility] [place] [address] * (ABNORMAL) Hepatic Function Panel (02/06/2023 7:40 [...] M.D. LAB BLOOD ADD-ON Performing Organization Address City/[facility]/ZIP Co de Phone Number [address] [place] [address] * (ABNORMAL) Soluble Transferrin Receptor (sTfR) (02/06/2023 7:40 AM CDT) Pathologist [facility] Soluble Transferrin Receptor (sTfR) 1.2(L) 1.8 - 4.6 mg/L 02/06/2023 9:58 AM CDT DTL Comment: ----ADDITIONAL INFORMATION---- It is reported that Americans may have slightly higher values. Blood (Blood, Venous) 02/06/2023 7:40 AM CDT 02/06/2023 9:10 AM CDT Elvira Sanchez APRN, C.N.P., D.N .P. LAB BLOOD ADD-ON Performing Organization Address City/[facility]/[place] [address] * (ABNORMAL) SPSMA Result (02/06/2023 7:40 AM CDT) Only the most recent of2 resultswithin the time period is included. Pathologist [facility] Neutrophilic Segs and Bands 49(L) 50 - [...] CDT Mikey Orta M.D. LAB BLOOD ADD-ON [facility] 200 [place] [address], [facility] 200 [place] [address] * (ABNORMAL) Iron and Total Iron-Binding Capacity (02/06/2023 7:40 AM CDT) Only the most recent of2 resultswithin the time period is included. [facility] Iron 113 50 - 150 mcg/dL 02/06/2023 9:58 AM CDT DTL Total Iron Binding Capacity 142(L) 250 - 400 mcg/dL 02/06/2023 9:58 AM CDT DTL Percent Saturation 80(H) 14 - 50 % 02/06/2023 9:58 AM CDT DTL Blood (Blood, Venous) 02/06/2023 7:40 AM CDT 02/06/2023 9:10 AM CDT Elvira Sanchez APRN, C.N.P., D.N .P. LAB BLOOD ADD-ON [facility] [address] [place] [address], [facility] [address] [place] [address] * (ABNORMAL) Phosphorus Inorganic (02/06/2023 7:40 AM CDT) Only the most recent of2 resultswithin the time period is included. Pathologist [facility] Phosphorus (Inorganic), S 5.9(H) 2.5 - 4.5 mg/dL 02/06/2023 8:47 AM CDT DTL Blood (Blood, Venous) 02/06/2023 7:40 AM CDT 02/06/2023 8:26 AM CDT Elvira Sanchez APRN, C.N.P., D.N .P. LAB BLOOD ADD-ON [facility] [address] [place], [place] [address] [place] [address] 200 [place] [address] * Magnesium (02/06/2023 7:40 AM CDT) Only the most recent of3 resultswithin the time period is included. [facility] Magnesium, S 1.9 1.7 - 2.3 mg/dL 02/06/2023 8:49 AM CDT DTL Blood (Blood, Venous) 02/06/2023 7:40 AM CDT 02/06/2023 8:24 AM CDT Elvira Sanchez APRN, C.N.P., D.N .P. LAB BLOOD ADD-ON [facility] [address] [place] [address], [address] [address] * Hemoglobin A1c (02/06/2023 7:40 AM CDT) [facility] Hemoglobin A1c, B 4.6 4.0 - 5.6 % 02/06/2023 4:41 PM CDT DTL Blood (Blood, Venous) 02/06/2023 7:40 AM CDT 02/06/2023 4:23 PM CDT Elvira Sanchez APRN C.N.P., D.N .P. LAB BLOOD ADD-ON [facility] [address] [place] [address] * Folate (02/06/2023 7:40 AM CDT) Only the most recent of2 resultswithin the time period is included. Folate, S 7.3 >=4.0 mcg/L 02/06/2023 10:22 AM CDT DTL Blood (Blood, Venous) 02/06/2023 7:40 AM CDT 02/06/2023 9:10 AM CDT Elvira Sanchez APRN, C.N.P., D.N .P. LAB BLOOD ADD-ON Performing Organization Address [facility] Co de Phone Number [facility] [address] [place] [address] * (ABNORMAL) Ferritin (02/06/2023 7:40 AM CDT) Only the most recent of2 resultswithin the time period is included. Ferritin, S 1226(H) 31 - 409 mcg/L 02/06/2023 9:58 AM CDT DTL Blood (Blood, Venous) 02/06/2023 7:40 AM CDT 02/06/2023 9:10 AM CDT Elvira Sanchez APRN C.N.P., D.N .P. LAB BLOOD ADD-ON Performing Organization Address City/[facility]/ZIP Co de Phone Number [facility] [address] [place] [address], [facility] DTL [facility] [address] [place] [address] * ECG 12 Lead (02/05/2023 7:57 PM CDT) Only the most recent of3 resultswithin the time period is included. Ventricular Rate ECG/Min 89 BPM MUSE GA Interval 142 ms MUSE QRSD Interval 100 ms MUSE QT Interval 410 ms MUSE QTC Interval 498 ms MUSE P [place] 62 degrees MUSE R [place] 57 degrees MUSE T Wave [place] 104 degrees MUSE 02/05/2023 7:57 PM CDT [...] Perfecto Lugo III, CRAT Narrative Procedure Note Abdelrahman Strickland M.D., Ph.D. [...] (ABNORMAL) Reticulocyte Profile (02/05/2023 9:58 AM CDT) Pathologist [facility] Reticulocytes, B 1.06 0.60 - 2.71 % [...] LAB BLOOD ADD -ON Performing Organization Address City/[facility]/ZIP Co de Phone Number [address] [place] [address] * Methylmalonic Acid (MMA), Quantitative (02/05/2023 9:58 AM CDT) Pathologist [facility] Methylmalonic Acid, QN, S 0.32 <=0.40 nmol/mL 02/07/2023 8:32 AM CDT DT Comment: ----ADDITIONAL INFORMATION---- This test was developed and its performance characteristics determined by [facility] in a manner consistent with CLIA requirements. This test has not been cleared or approved by the U.S. Food and Drug Administration. Blood (Blood, Venous) 02/05/2023 9:58 AM CDT 02/06/2023 7:37 AM CDT Elvira Sanchez APRN, C.N.P., D.N .P. LAB BLOOD ADD-ON Performing Organization Address City/[facility]/ZIP Co de Phone Number [address] [place] [address] * (ABNORMAL) Vitamin B12 Assay (02/05/2023 9:58 AM CDT) Pathologist [facility] Vitamin B12 Assay, S 163(L) 180 - 914 ng/L 02/05/2023 1:40 PM CDT DTL Comment: ----ADDITIONAL INFORMATION---- In patients being evaluated [...] Xochitl Dewitt M.D. LAB BLOOD ADD -ON [facility] 200 [place] [address], [place] [facility] [address] [place] [address] * CT Abdomen Pelvis Angiogram with IV [...] Anatomical Region Laterality Modality Head, Neuroradiology [facility] , [facility], [facility]ur[facility]iology [facility] N/A Computed Tomography, Compute d Tomography 02/05/2023 [...] No acute intracranial findings. Renay Bolton M.D. [facility] [place] [facility] * CT Abdomen Pelvis without IV [...] No perforation. Renay Bolton M.D. IMG CT GA OCEDURES * (ABNORMAL) Dipstick, Urine (02/05/2023 12:47 [...] CDT Bishop Melgar M.D. LAB URINE ORDERABLES [facility] [address] [place] [address], [facility] [address] [place] [address] * Microscopic Manual (02/05/2023 12:47 AM CDT) [...] CDT Bishop Melgar M.D. LAB URINE ORDERABLES [facility] [address] [place] [address], [facility] [address] [place] [address] * Bacterial Culture, Aerobic + Susceptibility, Urine (02/05/2023 12:47 AM CDT) Urine Culture No growth after 1 day of incubation. 02/06/2023 8:15 AM CDT DT Urine (Urine, Midstream) 02/05/2023 12:47 AM CDT 02/05/2023 4:25 AM CDT Comment:Specimen Source Site : Urine Bishop Melgar M.D. LAB MICROBIOLOGY - G ENERAL ORDERABLES Performing Organization Address City/[facility]/ZIP Co de Phone Number [facility] [address] [place], [place] [id number] [place] [address] 200 [place] [address] * pH, Urine (02/05/2023 12:47 AM CDT) pH, U 7.1 4.5 - 8.0 02/05/2023 1:3 6 AM CDT DT Urine 02/05/2023 12:4 7 AM CDT 02/05/2023 1:09 AM CDT Bishop Melgar M.D. LAB URINE ORDERABLES [facility] [address] [place] [address], [facility] [address] [place] [address] * Osmolality, Urine (02/05/2023 12:47 AM CDT) Pathologist [facility] Osmolality, U 331 150 - 1150 mOsm/kg 02/05/2023 1:36 AM CDT DTL Urine 02/05/2023 12:4 7 AM CDT 02/05/2023 1:09 AM CDT Bishop Melgar M.D. LAB URINE ORDERABLES Performing Organization Address City/[facility]/ZIP Co de Phone Number [facility] [address] [place] [address], [facility] [place] [address] [place] [address] * (ABNORMAL) Urinalysis with Microscopic: Urine, Midstream (02/05/2023 12:47 AM CDT) Pathologist [facility] Source Urine, Urine, Midstream 02/05/2023 1:09 AM CDT DTL Color, U Yellow 02/05/2023 1:09 AM CDT DTL Clarity, U Clear 02/05/2023 1:09 AM CDT DTL Protein, U 231(H) <26 mg/dL 02/05/2023 2:01 AM CDT DTL Protein/Osmol ality 6.98(H) <0.42 ratio 02/05/2023 2:01 AM CDT DTL Predicted 24 HR Protein, U 5998(H) <229 mg/24 h 02/05/2023 2:01 AM CDT DTL Predicted Range 1904-13713 mg/24 h 02/05/2023 2:01 AM CDT DTL Urine (Urine, Midstream) 02/05/2023 12:47 AM CDT 02/05/2023 1:09 AM CDT Bishop Melgar M.D. LAB URINE ORDERABLES Performing Organization Address City/[facility]/ZIP Co de Phone Number [facility] [address] [place] [address], [facility] [place] [address] [place] [address] from Last 3 Months Advance Directives For more information, please contact: [phone] Latest Code Status on File Code Status [...] Answer Comments Full Code: Discussed Care Teams Kick Boxer Relationship Specialty Start Date End Date Elsewhere, Pcp PCP - General Internal Medicine 02/04/23
--- OUTSIDE RECORDS SUMMARY | 2023-05-08 16:24 | XMS_ITS | Encounter Summary ---
Author Name Unknown Organization [facility] Address [address] [place] [address] Care Team Providers Care First Line Production Supervisor Name Role Phone Elsewhere, Pcp Primary Care Provider Unavailabl e Encounter Details Date Type Department Care Team (Late st Contact Info) Description 03/18/2023 Orders Only Division of Nephrology and Hypertension, [facility], in [place], [place] [address] [place] [address] Drew Mo, HALLE, C.N.P., M.S.N. [address] [place] [address] Social History Tobacco Use Types Packs/Day Years [...] your living situation today? I have a [facility] place to live 11/14/2022 Sex and Gender Information Value Date Recorded Sex Assigned at Male 11/14/2022 11:03 AM CDT Gender Identity Male 11/14/2022 11:03 AM CDT Sexual Orientation Straight 11/14/2022 11 :03 AM CDT documented as of this encounter Plan of Treatment Not on file documented as of this encounter Visit Diagnoses Not on filedocumented in this encounter Care Teams First Line Production Supervisor Relationship Specialty Start Date End Date Elsewhere, Pcp PCP - General Internal Medicine 02/04/23 documented as of this encounter
--- OUTSIDE RECORDS SUMMARY | 2023-05-08 16:24 | XMS_ITS | Encounter Summary ---
Author Name Unknown Organization [facility] Address [address] [place] [address] Care Team Providers Care Fur Repair Inspector Name Role Phone Elsewhere, Pcp Primary Care Provider Unavailabl e Encounter Details Date Type Department Care Team (Late st Contact Info) Description 02/11/2023 Orders Only Division of Nephrology and Hypertension in [place], [place] [address] [place] [address] Concetta Mejía M.D., Ph.D. [address] [place] [address] Social History Tobacco Use Types Packs/Day Years [...] your living situation today? I have a [facility] place to live 11/14/2022 Sex and Gender Information Value Date Recorded Sex Assigned at Male 11/14/2022 11:03 AM CDT Gender Identity Male 11/14/2022 11:03 AM CDT Sexual Orientation Straight 11/14/2022 11 :03 AM CDT documented as of this encounter Plan of Treatment Not on file documented as of this encounter Visit Diagnoses Not on filedocumented in this encounter Care Teams Fur Repair Inspector Relationship Specialty Start Date End Date Elsewhere, Pcp PCP - General Internal Medicine 02/04/23 documented as of this encounter
--- OUTSIDE RECORDS SUMMARY | 2023-05-08 16:24 | XMS_ITS | Encounter Summary ---
Author Name Unknown Organization [facility] Address [address] [place] [id number] Care Team Providers Care Nnp Name Role Phone Elsewhere, Pcp Primary Care Provider Unavailabl e Reason for Visit * Reason Comments Abdominal Pain Nausea Encounter Details Date Type Department Care Team (Late st Contact Info) Description 02/04/2023 11:19 PM CDT - 02/07/2023 2:40 PM CDT Hospital Encounter [facility], [facility], Eighth Floor [address] [place] [phone] Renay Hernandez M.D. [address] [place] [phone] Xochitl Dewitt M.D. [address] [place] [phone] Abdominal Pain (Primary Dx); Cyst Renal; Hemodialysis Status (HCC); Hyperkalemia Discharge Disposition: Home or Self Care Social [...] your living situation today? I have a [facility] place to live 11/14/2022 Sex and [...] CDT Inhaled Oxygen Concentration - - Weight - - Height 166.2 cm (5' 5.43) 02/05/2023 3:30 AM CD T Body Mass Index - - documented in this encounter Discharge Summaries * Elvira Sanchez APRN, C.N.P., D.N.P. - 02/07/2023 1:21 PM CDT DISCHARGE SUMMARY BRIEF OVERVIEW Discharge Hospital: [facility] Discharge Provider: No att. providers found Discharge Provider Team: Hospital Internal Medicine (HIM) - [facility] Medicine 6 ([facility]) Primary Care Providers: Elsewhere, Pcp (General) No address on file PCP Phone Number: None PCP Fax Number: None Admission Date: 02/04/2023 Discharge Date: 02/07/23 PRINCIPAL DIAGNOSIS Hemodialysis Status (HCC) SECONDARY DIAGNOSES Principal Problem: Hemodialysis Status (HCC) Active Problems: Failure Renal End Stage (HCC) Hypertensive Heart And Chronic Kidney Disease With Heart Failure And With End Stage Renal Disease (HCC) Anemia Hyperkalemia Abdominal Pain Resolved Problems: * No resolved hospital problems. * DISCHARGE DISPOSITION Home or Self Care [1] ACTIVE ISSUES REQUIRING FOLLOW UP Recommendations: 1). Continue to take meds as prescribed on after visit summary. 2). Your blood pressure meds were adjusted during this visit per nephrology: Please stop hydralazine and benazepril, and increase losartan from 25 mg to 100 mg daily. Continue to take torsemide 100 mg b.i.d. amlodipine 10 mg daily. 3). Recommend checking blood pressures daily with home blood pressure cuff. Patient will look into purchasing one at local pharmacy. 4). Resume dialysis tomorrow per original schedule. 5). Follow-up with outpatient Nephrology 6). Recommend close follow-up with PCP to discuss blood pressure meds as well as diarrhea, which has since improved. 7). Your B 12 level was found to be low, so supplementation was started. MMA levels within normal limits. 8). Recommend ongoing anemia workup given drop in hemoglobin to 7.9 from 12.7 in October. Patient's B12 deficiency may be playing a role in his anemia, but would recommend consideration for EGD/colonoscopy if indicated. Peripheral smear did not demonstrate any diagnostic abnormalities. Received 1 unitof packed red blood cells on 02/06/23. Hemoglobin time of dismissal 8.2. Folate WNL. Iron studies were not indicative of iron deficiency anemia. 9). 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 CT imaging showing complex cystic mass in the anterior left kidney with enhancing separation measuring up to 2.5 cm. OUTPATIENT FOLLOW UP For appointment details refer to your Patient Appointment Guide. TEST RESULTS PENDING AT DISCHARGE Pending Labs None DETAILS OF HOSPITAL STAY REASON FOR ADMISSION Hemodialysis Status (HCC) HOSPITAL COURSE Mr. Justin was hospitalized on [facility] 6 ([facility]) for evaluation and management of: Hemodialysis Status (HCC) Mr. Salbador Justin is a very pleasant 37 y.o. 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 Per chart review, patient typically receives iHD locally in [place]. He has not had a run of iHDsince 01/27/23 (secondary to missing 2 sessions due to over sleeping and lack of ride availability).He missed his session on 02/04 due to vomiting. The patient contacted his dialysis facility who recommended he received dialysis inpatient due to the number of sessions he had missed. In the emergency department, he was noted to be hypertensive with systolics in the 180s, but remained afebrile and was oxygenating well on room air. Laboratory workup demonstrated potassium 5.7, bicarbonate of 16 and an anion gap of 24, elevated BUN (133), a new normocytic anemia (hemoglobin 7.8, was in the 12-13 range 3-4 months ago), and a UA with proteinuria, but without evidence of infection. CT head negative for acute intracranial findings. CT abdomen/pelvis w/o contrast showed marked wallthickening and edema throughout the small bowel with mesenteric edema and ascites, findings nonspecific but could reflect bowel ischemia versus fluid overload versus infectious/inflammatory cause of e nteritis. CT abdomen pelvis with angiography was also done and showed similar wall thickening throughout the small bowel without evidence of bowel ischemia or perforation. Findings most likely related to volume overload in the setting of renal failure and missed dialysis. Additionally noted was a complex cystic left renal mass and moderate ascites. Lactate unremarkable. [facility]. During his admission, nephrology followed closely and managed his dialysis needs, dialyzing him on 02/05 and again on 02/06. Plan is to dialyze at his home unit on 02/08/2023 (return to his regular schedule of Friday, , and Friday). Nephrology also made adjustments to his antihypertensive medications due to persistent hypertension with systolics in the 170s to 180s including increasingCozaar to 100 mg daily (from 25 mg daily), continuing home amlodipine and torsemide, and discontinuing benazepril and hydralazine, Blood pressures did improve with this regimen. Unfortunately, his hospital course was further complicated by intermittent chest pain during dialysis with ECG changes noted. The CCU fellow reviewed his ECG and recommended a repeat ECG done, which showed with similar findings, so will likely no acute events. He was also found to have B12 deficiency with and on 02/05/2023. MMA has been obtained and within normal limits. In regard to his abdominal pain, this was also thought to be multifactorial in the setting of either gastroenteritis, query developing ulcer, query fluid overload from needing dialysis to name a few.He was initiated on PPI, Tylenol, and lidocaine patch with improvement. Will continue daily PPI, and have close follow-up with his PCP. An FISH BIN TENDER was called on 02/06/2023 for acute hypotension (SBP 160--> SBP 80) after being placed on dialysis with LOC (approximately 30 seconds).Fortunately, he regained consciousness after blood pressure improved. No postictal phase or residual deficits noted. Etiology thought to be a syncope in the setting of vasovagal, after getting the patient connected to dialysis. Patient did appear intravascularly dry given his diarrhea prior to admission and decreased oral intake. Repeat blood work at this time was also unremarkable, but did show hemoglobin of 7.2 (dropping from 7.9 from yesterday). Given his coronary history and syncopal episode, he was transfused with 1 unit RBCs. Repeat blood work this morning shows stable hemoglobin at 8.2 with no signs of bleeding or hemolysis. Iron studies were not indicative of iron deficiency anemia. Etiology for his anemia is thought vero likely multifactorial in the setting of B12 deficiency, anemia chronic disease secondary to dialysis, versus other etiologies including query peptic ulcer disease, versus other. Would recommend ongoing follow-up in the outpatient setting with his PCP and consideration of EGD versus colonoscopy if indicated. He was eventually medically stable for dismissal back home on 02/07/2023. He will plan to resume his regular dialysis session tomorrow on 02/08/2023. PCP follow-up has been arranged. MEDICATIONS CHANGED DURING THIS HOSPITAL STAY Medications stopped: Benazepril and hydralazine Medications changed: Losartan Medications added: Multivitamin (Dialyvite), B12, and PPI CONSULTS ORDERED DURING THIS ADMISSION IP CONSULT TO NEPHROLOGY IP CONSULT TO CARE MANAGEMENT CONDITION AT DISCHARGE Stable The above plan of care was discussed with Dr. Orta, HIM solutions sales consultant. I saw and evaluated Salbador Justin today and provided counseling [id number] at bedside. I personally spent a total of greater than 30 minutes in counseling and coordination of care as described above to facilitate the hospital discharge. Discharge instructions were provided to the patient and caregiver(s). documented in this encounter Discharge Instructions * Discharge Instructions* Federica Bills - 02/05/2023 3:06 AM CDT You were discharged from the [facility] Medicine 6 ([facility]) Service. Please identify this service name if youcall with questions after hospitalization. * Attachments The following attachments cannot be sent through Care Everywhere. * Vitamin B-12 (Cyanocobalamin) (By mouth) (Serbian) * Pantoprazole (By mouth) (Serbian) * Prochlorperazine (By mouth) (Serbian) documented in this encounter Medications at Time of Discharge Medication Sig Dispensed Refills Start Date End Date calcium acetate,phosphat bind, (ELIPHOS) 667 mg (169 mg calcium) tablet Take 1,334 mg by mouth 3 (three) times a day with meals. 0 sertraline (ZOLOFT) 50 mg tablet Take 1 tablet (50 mg total) by mouth daily. 90 tablet 3 01/27/2023 01/27/2024 torsemide (DEMADEX) 100 mg tablet Take 1 tablet (100 mg total) by mouth 2 (two) times a day. 180 tablet 3 01/17/2023 01/17/2024 cyanocobalamin (vitamin B-12) 1,000 mcg tablet Take 1 tablet (1,000 mcg total) by mouth daily. F/u with PCP for additional refills. 30 tablet 0 02/07/2023 albuterol 90 mcg/actuation inhaler Inhale 2 puffs every 6 (six) hours as needed for wheezing or shortness of breath (or cough). 8 g 11 11/06/2022 02/11/2023 amLODIPine (NORVASC) 10 mg tablet Take 1 tablet (10 mg total) by mouth daily. 90 tablet 3 01/16/2023 03/18/2023 multivitamin renal failure (DIALYVITE) 100-1 mg tablet Take 1 tablet by mouth daily with dinner. 30 tablet 0 02/06/2023 02/24/2023 traZODone (DESYREL) 50 mg tablet Take 1 tablet (50 mg total) by mouth at bedtime. 30 tablet 11 01/14/2023 04/15/2023 pantoprazole (PROTONIX) 20 mg EC tablet Take 1 tablet (20 mg total) by mouth every morning before breakfast for 14 days. Please follow-up with PCP for dose adjustment and refills. 14 tablet 0 02/07/2023 02/21/2023 prochlorperazine (COMPAZINE) 5 mg tablet Take 1 tablet (5 mg total) by mouth every 8 (eight) hours as needed for nausea or vomiting for up to 3 days. 9 tablet 0 02/05/2023 02/08/2023 losartan (COZAAR) 100 mg tablet Take 1 tablet (100 mg total) by mouth daily. Please follow-up with PCP for dose adjustment and refills. 30 tablet 0 02/05/2023 03/18/2023 documented as of this encounter Progress Notes * Viola Mosher APRN, C.N.P., M.S.N. - 02/07/2023 11:15 AM CDT NEPHROLOGY CONSULT SERVICE - PROGRESS NOTE Hospital Day 2 SUBJECTIVE Mr. Justin was seen and examined in his hospital room this morning. He is lying in bed. He is requesting to go home today. He denies muscle cramping overnight. He reports no further episodes unresponsive/absence. This morning he denies dyspnea, chest pain, nausea or vomiting. I discussed his nexthemodialysis will be planned for Friday either inpatient or outpatient pending disposition. He isin agreeance and denies questions for nephrology. I have reviewed the current medication list. OBJECTIVE Admission weight: No data found. I/O 02/05 0000 02/05 0000 02/06 0000 02/07 235 P.O. 500 299 240 Red Blood Cells 366 Crystalloid Bolus 260 Colloid Bolus 250 Intermittent Medications 250 Total Intake 750 1175 240 Dialysis 750 317 Total Output 750 317 Net 0 +858 +240 Unmeasured Urine Occurrence 2 x Unmeasured Stool Occurrence 1 x Unmeasured Emesis Occurrence 1 x VITAL SIGNS Vitals 10/29/22 02/05/23 02/06/23 Pre-Dialysis BP (Calculated) 165/88 175/96 164/103 Post-Dialysis BP (Calculated) 137/73 181/101 186/117 Lowest BP of Encounter/Session (Calculated) 121/70 156/101 83/57 Pre-Treatment Weight (kg) 63.2 kg 60.5 kg 58.7 kg Post-Treatment Weight (kg) 62.3 kg 60 kg 60.1 kg Treatment Weight Change (kg) (kg) -0.9 -0.5 1.4 Requested UF Volume (mL) (mL) 1250 750 250 Total UF Removed (mL) (mL) 1255 750 317 Pre-Hemodialysis Comments labs drawn Intra-Hemodialysis Comments Amalodipine 10 mg give po Treatment Tolerance No Complications Other (Comment) [chest pain post treatment] Other (Comment) [disc pad knockout worker see note, finished tx with no issues] Post-Hemodialysis Comments 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 Orientation: Left Location: Forearm AV Access Type: AV Fistula Number of days: DIAGNOSTICS Results from last 7 days Lab Units 02/07/23 0746 02/06/23 1659 02/06/23 0740 HEMOGLOBIN g/dL 7.8* 8.2* 7.2* WBC x10(9)/L 7.2 -- 5.7 PLATELETS AUTO x10(9)/L 243 -- 273 Last 2 results Lab Units 02/07/23 0746 02/06/23 0740 02/05/23 0958 02/04/23 2205 SODIUM P mmol/L -- -- 136 137 SODIUM mmol/L 139 138 -- -- POTASSIUM P mmol/L -- -- 5.6* 5.7* POTASSIUM mmol/L 4.3 4.0 -- -- BICARBONATE PLASMA mmol/L -- -- 15* 16* BICARBONATE S mmol/L 27 23 -- -- BUN P mg/dL -- -- 139* 133* BUN mg/dL 31* 44* -- -- CREATININE mg/dL 11.29* 14.72* 28.84* 27.58* CALCIUM P mg/dL -- -- 9.7 10.2* CALCIUM mg/dL 9.3 9.0 -- -- PHOSPHORUS INORGANIC mg/dL -- 6.0* 5.9* 8.2* -- MAGNESIUM mg/dL -- 1.9 1.9 2.7* -- ASSESSMENT / PLAN # ESRD related to hypertension maintained on incenter hemodialysis since 2018 # Admitted 02/04/2023 abdominal pain with diarrhea # Nausea and vomiting, chronic # Chronic anemia related to end stage renal disease # Hyperphosphatemia related to end stage renal disease Mr. Justin dialyzed yesterday with no fluid removal and a post weight of 60.1 kg. He did have a brief 30 second episode of unresponsiveness with upward right eye gaze. ICU team and medicine team atbedside and are in agreeance this was probable vagal vasal response to starting hemodialysis due to250 mL initial pull. He regained responsiveness and alertness quickly. Hemodialysis was continued with no fluid removal without difficulty. He was given 1 unit RBC for hemoglobin 7.2 grams/deciliter yesterday. Albumin 5% 12.5 g was administered as a bolus during hemodialysis for blood pressure support. Today, he exhibits no acute indications requiring additional hemodialysis. His next hemodialysis will be planned for Friday at [facility]. Dismissal Recommendations: -- Next hemodialysis is Friday02/08/2023 at [facility], following his Friday, , Friday dialysis schedule. -- EDW 61.5 kg -- Dialyzed in recliner 02/06/2023, fulfilling an outpatient hemodialysis requirement. -- Renally dose-adjust all medications for hemodialysis -- Document strict intake and output -- Renal dialysis diet with 1.5 L/day fluid restriction -- Renally dose-adjust all medications for hemodialysis -- Calcium acetate 1334 mg three times daily with meals for phosphorus binding. If at any time he is NPO please hold this medication. -- IV Epogen 3400 units 3 times weekly; nephrology will manage and order this medication -- Intra dialytic IV heparin 5000 unit bolus; nephrology will manage and order this medication -- Continue amlodipine 10 mg daily in am and torsemide 100 mg BID -- Discontinue benazepril and hydralazine -- Losartan increased to 100 mg daily Mr. Justin's case has been staffed with Dr. Estes, Nephrology solutions sales consultant. For questions or concerns, please contact the Nephrology C service at [phone]. * Viola Mosher APRN C.N.P., M.S.N. - 02/06/2023 11:00 AM CDT NEPHROLOGY CONSULT SERVICE - PROGRESS NOTE Hospital Day 1 SUBJECTIVE Mr. Justin was seen and examined during hemodialysis today. He is dialyzing in the recliner. He had an episode earlier today suspected vagal vasal requiring FISH BIN TENDER (see addendum below). On my return visit, he was reconnected hemodialysis and his hemodialysis session was going well. He denies lightheaded or dizziness. He reports his abdominal pain has improved. He denies dyspnea or chest pain. He denies questions for nephrology. I have reviewed the current medication list. OBJECTIVE Admission weight: No data found. I/O 02/05 P.O. 500 59 Red Blood Cells 254 Crystalloid Bolus 260 Colloid Bolus 250 Intermittent Medications 250 Total Intake 750 823 Dialysis 750 317 Total Output 750 317 Net 0 +506 Unmeasured Urine Occurrence 2 x Unmeasured Stool Occurrence 1 x Unmeasured Emesis Occurrence 1 x VITAL SIGNS Vitals 10/29/22 02/05/23 02/06/23 Pre-Dialysis BP (Calculated) 165/88 175/96 Post-Dialysis BP (Calculated) 137/73 181/101 Lowest BP of Encounter/Session (Calculated) 121/70 156/101 Pre-Treatment Weight (kg) 63.2 kg 60.5 kg 58.7 kg Post-Treatment Weight (kg) 62.3 kg 60 kg Treatment Weight Change (kg) (kg) -0.9 -0.5 Requested UF Volume (mL) (mL) 1250 750 250 Total UF Removed (mL) (mL) 1255 750 317 Pre-Hemodialysis Comments labs drawn Intra-Hemodialysis Comments Amalodipine 10 mg give po Treatment Tolerance No Complications Other (Comment) [chest pain post treatment] Other (Comment) [disc pad knockout worker see note, finished tx with no issues] Post-Hemodialysis Comments disc pad knockout worker see note, finished tx with no issues PHYSICAL EXAM General: Awake and alert, dialyzing in recliner, appears in no acute distress Heart: Regular rate and rhythm Lungs: Lung sounds clear to auscultation bilateral anterior lung jolley, nonlabored breathing Extremities: No pitting edema bilateral lower extremities Vessels: Left AV fistula, cannulated, tolerating a BFR of 350 mL/min Hemodialysis AV Access Left AV Fistula (Active) No placement date or time found. Orientation: Left Location: Forearm AV Access Type: AV Fistula Number of days: DIAGNOSTICS Results from last 7 days Lab Units 02/06/23 0740 02/05/23 1853 HEMOGLOBIN g/dL 7.2* 7.9* WBC x10(9)/L 5.7 4.8 PLATELETS AUTO x10(9)/L 273 270 Last 2 results Lab Units 02/06/23 0740 02/05/23 0958 02/04/23 2205 SODIUM P mmol/L -- 136 137 SODIUM mmol/L 138 -- -- POTASSIUM P mmol/L -- 5.6* 5.7* POTASSIUM mmol/L 4.0 -- -- BICARBONATE PLASMA mmol/L -- 15* 16* BICARBONATE S mmol/L 23 -- -- BUN P mg/dL -- 139* 133* BUN mg/dL 44* -- -- CREATININE mg/dL 14.72* 28.84* 27.58* CALCIUM P mg/dL -- 9.7 10.2* CALCIUM mg/dL 9.0 -- -- PHOSPHORUS INORGANIC mg/dL 6.0* 5.9* 8.2* -- MAGNESIUM mg/dL 1.9 1.9 2.7* -- ASSESSMENT / PLAN # ESRD related to hypertension maintained on incenter hemodialysis since 2018 # Admitted 02/04/2023 abdominal pain with diarrhea # Nausea and vomiting, chronic # Hyperkalemia, resolved # Chronic anemia related to end stage renal disease # Hyperphosphatemia related to end stage renal disease Mr. Justin dialyzed yesterday with a net fluid removal of 500 mL and a post weight of 60 kg. At the end of hemodialysis during decannulation of fistula, he developed chest pain. ECG showed normal rhythm, nitro 0.2 was administered and his chest pain resolved within 10 minutes. Today, he is dialyzing again, returning him to his normal hemodialysis schedule. He is dialyzing for 3 hours on a 2.0 mEq/L potassium, 2.5 mEq/L calcium, 138 sodium, 32 bicarb dialysate bath targeting his dry weight of 61 kg. IV Epogen 3400 units will be administered with hemodialysis today. Intra dialytic IV heparin 5000 unit bolus is administered for filter clot prophylaxis at start of hemodialysis. Addendum @ 0900: I was requested to bedside of patient by dialysis nursing staff. On my arrival appears diaphoretic and was unresponsive. He did have upper right eye gaze for about 30 seconds. After this 30 seconds Mr. Justin started to become more alert. Initial blood pressure on dialysis was systolic in 160s, during this episode blood pressure was 83/57 (65), but elevated quicklyto 166/98 (116) with his alertness. FISH BIN TENDER was called. RMG was 119. Once awake and alert he complainedof abdominal pain. During FISH BIN TENDER med 6 and ICU providers presented to bedside. It is thought to be vagal vasal response to starting hemodialysis as he is intravascular on the loop drier operator side; although no flui d was being pulled with hemodialysis today as he is below his dry weight. He will receive albumin 5% 12.5 g and hemodialysis will be restarted. Hemoglobin return this morning at 7.2 and 1 unit RBC will be given during hemodialysis as well. He continues to be hypertensive; nephrology will recommend a ntihypertensive regimen adjustments. New Recommendations: -- Renal function panel with a.m. labs Continued Recommendations: -- Document strict intake and output -- Adult renal dialysis diet with 1.5 L/day fluid restriction -- Renally dose-adjust all medications for hemodialysis -- Document strict intake and output -- Renal dialysis diet with 1.5 L/day fluid restriction -- Renally dose-adjust all medications for hemodialysis -- Calcium acetate 1334 mg three times daily with meals for phosphorus binding. If at any time he is NPO please hold this medication. -- IV Epogen 3400 units 3 times weekly; nephrology will manage and order this medication -- Intra dialytic IV heparin 5000 unit bolus; nephrology will manage and order this medication -- Continue amlodipine 10 mg daily in am and torsemide 100 mg BID -- Discontinue benazepril and hydralazine -- Increase losartan from 25 mg to 100 mg daily in the evening Dismissal Planning: -- Please keep nephrology informed of dismissal planning to ensure outpatient hemodialysis arrangedappropriately prior to hospital dismissal. Mr. Justin's case has been staffed with Dr. Estes, Nephrology solutions sales consultant. For questions or concerns, please contact the Nephrology C service at [phone]. Associated attestation - Rebecca Estes M.D. - 02/06/2023 2:46 PM CDT I saw and evaluated the patient independently, participating in the saha portions of the service. I reviewed Viola Mosher APRN, C.N.P., M.S.N.'s note. I agree with the DORA???s findings and plan. Additional comments: Patient has been having labile BP, high yesterday after HD and also reported CP during HD. This AM, had drop in BP and vasovagal response. Discussed with patient concern for complex clinical picture given conflicting medications for BP as outpatient and also inaccurate EDW. Will be gentle with UF on HD, but also try to consolidate BP meds. Patient in agreement though also expresses wish to be discharged today anyway. Will continue to follow. Rebecca Estes M.D. Business Analytics Manager Legal Transcriber Nephrology and Hypertension * Elvira Sanchez APRN, C.N.P., D.N.P. - 02/06/2023 9:18 AM CDT T Medicine 6 ([facility]) Progress Notes SUBJECTIVE Mr. Justin was seen in the context of morning rounds. An FISH BIN TENDER was called shortly before arrival toa vasovagal episode with loss of consciousness for approximately 30 seconds, while on dialysis. Hisblood pressure dropped from 160 systolic to 80 systolic, with subsequent unresponsiveness, right eye gaze. He received 100 cc fluid bolus, with resolution and hypotension and ultimately became responsive. No postictal or neurological changes following the event. Repeat blood work to come back this morning showing a drop in hemoglobin 7.2 with the remainder was other labs stable. Given his vasovagal and syncopal episode moments before arrival, patient is agreeable to 1 unit of packed red blood cells due to his history of coronary disease and hemoglobin less than 8. Continues to complain of abdominal pain (generalized), describing it as a cramping sensation, which seems to come and go. He denies nausea at this time. Bowel movements have slowed down as well. He currently denies fever, chills, nausea, vomiting, chest pain, or dyspnea. I have reviewed the current medication list. OBJECTIVE VITAL SIGNS Temperature: [36.6 ??C-37.2 ??C] 36.7 ??C Heart Rate: [69-87] 69 Resp Rate: [12-21] 16 Blood Pressure: (83-190)/(57-122) 166/99 SpO2: [95 %-100 %] 100 % Pulse Rate: [58-93] 75 Intake/Output Last 24 Hours: Intake/Output Summary (Last 24 hours) at 02/06/2023 0918 Last data filed at 02/06/2023 0849 Gross per 24 hour Intake 750 ml Output 750 ml Net 0 ml PHYSICAL EXAM General: 37-year-old male, appearing stated age, resting comfortably in bed, no acute distress Mental: alert and oriented x 3. Answers questions appropriately. CAM negative. HEENT: trachea midline, pupils PERRL, EOM intact, oral mucosa pink and moist without lesions CV: Regular rate and rhythm; no murmurs, rubs, or gallops; left upper extremity fistula PULM: clear to auscultation bilaterally; no rales, rhonchi, or wheezes. Respirations even and non-labored on room air. Abd: Soft, non-tender, non-distended. Active bowel sounds Extremities: No appreciable lower extremity edema bilaterally Skin: No new lesions or rashes. Warm, well-perfused. Neuro: Cranial nerves II-XII grossly intact. Motor and sensation symmetric bilaterally in all extremities. DIAGNOSTICS I have personally reviewed labs, diagnostics, and electronic health record. ASSESSMENT / PLAN Mr. Justin is hospitalized on [place] [id number] ([facility]) for evaluation and management of: HemodialysisStatus (HCC) Mr. Salbador Justin is a very pleasant 37 y.o.originally from [facility] with medical comorbidities significant for HFpEF (EF 68% 2/2 HTN), ESRD secondary to hypertensive nephropathy (iHD //), and CAD (STEMI 2015) who presented to [facility] on 02/04/2023 after missing outpatient dialysis and 2 day history of diarrhea and headache. Per chart review, patient typically receives iHD locally in [place]. He has not had a run of iHDsince 01/27/23 (secondary to missing 2 sessions due to over sleeping, lack of ride availability). Hemissed his session on 02/04 due to vomiting. The patient contacted his dialysis facility who recommended he received dialysis inpatient due to the number of sessions he had missed. In the emergency department, he was noted to be hypertensive with systolics in the 180s, but remained afebrile and was oxygenating well on room air. Laboratory workup demonstrated potassium 5.7, bicarbonate of 16 and an anion gap of 24, elevated BUN (133), a new normocytic anemia (hemoglobin 7.8, was in the 12-13 range 3-4 months ago), and a UA with proteinuria, but without evidence of infection. CT head negative for acute intracranial findings. CT abdomen/pelvis w/o contrast showed marked wallthickening and edema throughout the small bowel with mesenteric edema and ascites, findings nonspecific but could reflect bowel ischemia versus fluid overload versus infectious/inflammatory cause of e nteritis. CT abdomen pelvis with angiography was also done and showed similar wall thickening throughout the small bowel without evidence of bowel ischemia or perforation. Findings most likely related to volume overload in the setting of renal failure and missed dialysis. Additionally noted was a complex cystic left renal mass and moderate ascites. Lactate unremarkable. [facility]. Since admission, nephrology has been following closely regarding his dialysis needs, ultimately dialyzing him on 02/05 and again on 02/06. His hospital course has been complicated by intermittent chest pain during dialysis with ECG changes as well as hypertension. A repeat ECG done on 02/05/2023 with similar findings, so will likely no acute events. His antihypertensives were adjusted to include d iscontinuing benazepril and hydralazine, and increasing Cozaar to 100 mg daily (from 25 mg daily). He was also found to have B12 deficiency with and on 02/05/2023. MMA has been obtained and currently pending. An FISH BIN TENDER was called on 02/06/2023 during dialysis, shortly after connecting him to the circuit for significant hypotension (SBP 160--> SBP 80) and LOC he for approximately 30 seconds. He regained consciousness after blood pressure improved. No postictal phase or residual deficits noted. Etiology thought to be a syncope in the setting of vasovagal, after getting the patient connected to dialysis.Patient does appear intravascularly dry given his diarrhea prior to admission and decreased oral intake. Repeat blood work at this time was also unremarkable, but did show hemoglobin of 7.2 (droppingfrom 7.9 from yesterday). Given his coronary history and syncopal episode, he was transfused with 1unit RBCs. # ESRD on iHD / # Hyperkalemia likely from missing dialysis # High Anion Gap Metabolic Acidosis likely from missing dialysis # Query volume overload # Vasovagal episode of syncope during dialysis today Assessment: Patient admitted after missing week of dialysis in the setting of over sleeping, not having a ride, and general malaise. He was recommended to present to the ED by his local dialysis center to ensure he was stable. In the ED, he was found to be hyperkalemic with potassium of 5.7, BUN of133, bicarb 16, anion gap 24, and creatinine of 27.58. Nephrology was consulted. He was dialyzed on02/05, and again on 02/06. Unfortunately, he did have acute chest pain on 02/05 which was thought to be related to fluid removal in the setting of diarrhea, and concern being interestingly dry. An FISH BIN TENDER was called today for a vasovagal episode resulting in syncope, it was also thought to be related to acute drop in blood pressure after the patient was hooked up to his circuit. Blood pressure went from 160 systolic to 80 systolic. He lost consciousness for approximately 30 seconds, and regained after his blood pressure improved. No postictal state or residual deficits noted. He received 5% of albumin during dialysis, withplans of filtering with no more additional fluid removal. --> Hemoglobin has also dropped from 7.8 on admission (baseline 12.7 back in October 2022), currenthemoglobin 7.2 today. Patient denies any rectal bleeding, melena, black tarry stools, hematochezia,or any other bleeding sources. Peripheral smear was without diagnostic abnormalities. Patient has been found to be B12 deficient, which is likely playing a role. However, we are worried of other causes driving normocytic anemia. We will transfuse with 1 unit RBCs today given his vasovagal episode and continue workup. Plan: -- appreciate nephrology recommendations -- dialysis today with next session on Friday -- typical dialysis schedule is Friday//Friday -- repeat CBC, BMP, Mag, and phos in a.m. -- continue home meds: Calcium acetate, torsemide 100 mg b.i.d., amlodipine 10 mg daily -- discontinue hydralazine and benazepril -- increase Cozaar from 25 mg 200 mg daily -- continue strict I&Os and daily weights -- adult renal dialysis diet with 1.5 L per day fluid restriction -- continue IV Epogen during dialysis # Uncontrolled HTN # HFpEF # CAD (STEMI 2015) Assessment: Continues to remain hypertensive, with systolics as high as 199. He remains asymptomatic, but did complain of chest pain during dialysis yesterday, which he attributed to fluid removal. He also had a vasovagal episode during dialysis this morning, where his systolics dropped from 160 to80, with transient loss of consciousness (approximately 30 seconds). ECG from yesterday sinus rhythm with PVCs ST wave abnormalities. This was reviewed with the CCU fellow who recommended repeating and if it was stable, significant follow-up needed. Repeat remained stable, which is reassuring. TTE from September shows EF of 68% with normal ventricular filling pressure and no significant valvular disease. Plan: -- continue home med: Continue meds as above -- outpatient follow-up with PCP -- consider initiating statin (unclear why he is not on), beta-kwan, and baby aspirin # Acute Normocytic Anemia # B12 Deficiency Assessment: B12 low at 167, awaiting MMA. He hemoglobin low at 7.2 this morning no signs of overt bleeding/hemolysis. Will give 1 unit of RBCs and follow-up repeat hemoglobin this afternoon. Iron studies not indicative of iron deficiency anemia. Follow-up folate, LDH, and haptoglobin. Plan: -- 1 unit RBCs ordered -- repeat hemoglobin afternoon -- follow-up LDH and haptoglobin -- follow-up hemo quant -- PPI IV daily for now given abdominal pain # Abdominal pain Assessment: Differentials are broad and may include gastroenteritis given findings on CT versus peptic ulcer disease versus ascites versus fluid from not having dialysis to name a few. Patient does report history of ulcers in the past. Denies any melena, dark tarry stools, hematochezia. Plan: --continue sucralfate and IV PPI daily see if this helps with pain (unclear if GI source is cause of anemia) -- on continue lidocaine patch, scheduled Tylenol, and low-dose Dilaudid # Depression - Continue home Sertraline # Cystic Left Renal Mass - Outpatient urology follow-up Current activity/mobility: PAMP Level 3 (walks occasionally, majority of day is spent sitting in chair) Diet: renal failure/dialysis diet Tubes/lines: PIV VTE prophylaxis: heparin Code status: Full Code Disposition: Home Stable to discharge criteria (not yet met): Urinary/fecal output, Vital signs, Labs, Functional status, Pain control, and Tests/procedures/consults The following case was discussed with Dr. Orta, who agrees with current plan. Counseling was provided [id number] at bedside regarding the plan of care as stated above. I personally spent over half of a total 35 minutes in counseling and coordination of care as documented above. * Dede Berumen, Pharm.D., R.Ph. - 02/05/2023 8:13 AM CDT Pharmacist Progress Note Reason for admission: abdominal pain, diarrhea, and hyperkalemia (K 5.7) in setting of missed dialysis PMH: HFpEF, HTN, ESRD, CAD, STEMI 2016 OBJECTIVE VTE Prophylaxis: SQ heparin Medication Reconciliation: Med history per provider - No medication changes. - Benazepril and losartan listed on home medication list. Per outpatient pharmacy fill records, benazepril was last filled 10/15/22 for 90-day supply. Losartan was last filled 12/16/22 for 90-day supply. Hypothesize that benazepril was changed to losartan, however cannot confirm as there are no records in Care Everywhere and patient did not answer the phone when pharmacy attempted to clarify. ASSESSMENT / PLAN ESRD - Dialyzes //, last run 01/27. Continues PhosLo 1334 mg TID. Today's labs pending. Not on Dialyvite as an outpatient, this has been initiated per Pharmacy collaborative practice. Continues torsemide 100 mg PO BID. Urine output not charted. Abdominal pain, diarrhea - Query viral enteritis. GI pathogen panel pending. Received droperidol and ondansetron in the ED. QTc 449. No current orders for inpatient antiemetics, consider prn ondansetron if on-going nausea. Janelle Berumen, PharmMainor., R.Ph. [phone] documented in this encounter H&P Notes * Xochitl Dewitt M.D. - 02/05/2023 3:37 AM CDT [facility] ([facility]) Admission Note SUBJECTIVE CHIEF COMPLAINT / REASON FOR VISIT Missed Dialysis HISTORY OF PRESENT ILLNESS Salbador Justin is a 37 y.o. male with medical comorbidities significant for HFpEF (2/2 HTN), ESRD (iHD T//), and CAD (STEMI 2015) who presents after missing outpatient dialysis. The patient typically receives iHD locally in [place]. He has not had a run of iHD since 01/27/23(missed 2 sessions due to over sleeping, lack of ride availability). He missed his session on 02/04due to vomiting. The patient contacted his dialysis facility who recommended he received dialysis inpatient due to the number of sessions he had missed. In the emergency department, the patient noted 2 days of abdominal pain with associated nausea and vomiting as well as diarrhea and headache. Vitally, in the emergency room the patient was afebrile. He was hypertensive, with blood pressures primarily in the 180s systolic. He was saturating well on room air. Laboratory workup demonstrated hyperkalemia (potassium 5.7), metabolic acidosis with a bicarbonate of 16 and an anion gap of 24, elevated BUN (133), a new normocytic anemia (hemoglobin 7.8, was in the 12-13 range 3-4 months ago), and a UA with proteinuria, but without evidence of infection. Due to a headache, CT head was performed, which demonstrated no acute intracranial findings. Given the patient's complaint of abdominal discomfort, CT abdomen pelvis was performed 1st without contrast. This demonstrated marked wall thickening and edema throughout the small bowel with mesenteric edema and ascites, findings nonspecific but could reflect bowel ischemia versus fluid overload versus infectious/inflammatory cause of enteritis. Given the nonspecific findings, CT abdomen pelvis with angiography was performed. This demonstrated similar wall thickening throughout the small bowel without evidence of bowel ischemia or perforation. Findings most likely related to volume overload in the setting of renal failure and missed dialysis. Additionally noted was a complex cystic left renal mass and moderate ascites. On my evaluation, the patient reported to me 2 days of periumbilical abdominal discomfort, crampy in nature, without radiation, comes and goes. He does not typically have abdominal pain, but notes a history of somewhat similar abdominal pain in the past self resolved. The patient reports vomiting over the last several days. But, this is his baseline, stating he usually vomits roughly 2 to 3 timesa week. Diarrhea, though, is new. He reports going to the bathroom every 2 hours for the last 2 days. No bloody or black stools. No sick contacts or atypical food consumption. The patient denies any cough, shortness a breath, chest pain. His headache has resolved. Active Home Medications Medication Sig Taking albuterol 90 mcg/actuation inhaler Inhale 2 puffs every 6 (six) hours as needed for wheezing or shortness of breath (or cough). Yes amLODIPine (NORVASC) 10 mg tablet Take 1 tablet (10 mg total) by mouth daily. Yes benazepriL (LOTENSIN) 20 mg tablet Take 1 tablet (20 mg total) by mouth 2 (two) times a day. Yes calcium acetate,phosphat bind, (ELIPHOS) 667 mg (169 mg calcium) tablet Take 1,334 mg by mouth 3 (three) times a day with meals. Yes hydrALAZINE (APRESOLINE) 50 mg tablet Take 1 tablet (50 mg total) by mouth every 8 (eight) hours. Yes losartan (COZAAR) 25 mg tablet Take 1 tablet (25 mg total) by mouth every evening. Yes sertraline (ZOLOFT) 50 mg tablet Take 1 tablet (50 mg total) by mouth daily. Yes torsemide (DEMADEX) 100 mg tablet Take 1 tablet (100 mg total) by mouth 2 (two) times a day. Yes traZODone (DESYREL) 50 mg tablet Take 1 tablet (50 mg total) by mouth at bedtime. Yes omeprazole (PriLOSEC) [address] capsule Take 1 capsule (40 mg total) by mouth every morning before breakfast. Patient not taking: Reported on 02/04/2023 rOPINIRole (REQUIP) 0.5 mg tablet Take 0.5 mg by mouth 3 (three) times a day. Not taking OBJECTIVE VITAL SIGNS Temperature: [36.7 ??C-37.1 ??C] 36.8 ??C Resp Rate: [18-22] 18 Blood Pressure: (169-199)/(84-114) 185/114 SpO2: [98 %-100 %] 98 % Pulse Rate: [85-105] 93 PHYSICAL EXAMINATION Vitals: Blood pressure (!) 185/114, pulse 93, temperature 36.8 ??C, resp. rate 18, SpO2 98 %. Thereis no height or weight on file to calculate BMI. General: Tired but interactive, not acutely ill, no apparent distress. Skin: No rashes or lesions. Lungs: Normal rate and effort. Clear to auscultation. Heart: Regular rate and rhythm. No murmurs appreciated. No extremity edema. Abdomen: Soft, periumbilical, RUQ, LUQ and epigastric tenderness to palpation. Neuro: No focal deficit DIAGNOSTICS I have independently reviewed the labs and diagnostics from the ED ASSESSMENT / PLAN Salbador Justin is a 37 y.o. male with medical comorbidities significant for HFpEF (2/2 HTN), ESRD (iHD T//), and CAD (STEMI 2016) who presents after missing outpatient dialysis. We will consult Nephrology to facilitate dialysis as an inpatient. We will additionally discuss with them the patient's use of both an WENDY inhibitor and an ARB (WENDY held pending this discussion). Regarding the patient's complaint of abdominal pain, nausea/vomiting, and diarrhea, the nausea and vomiting seemed to be his baseline. But, the diarrhea and abdominal pain are new. CT in the emergency department of the abdomen/pelvis demonstrated small bowel wall thickening without evidence of bowel ischemia. This could certainly be in the setting of his missed dialysis sessions, but I do wonder about a potential infectious enteritis. I will send GI pathogen panel. Further, I note the patient has a quite marked hemoglobin drop compared to 3 months ago. We will perform some basic anemia studies. No evidence of jamil bleeding at this time. Though his hemoglobin is less than 8 in the setting of coronary artery disease, I am hesitant to give blood given his missed dialysis sessions in volume overload to begin with. We will see how his hemoglobin trends, especially after a run of dialysis # Volume Overload (2/2 missed iHD) # ESRD on iHD T// # Hyperkalemia # High Anion Gap Metabolic Acidosis - Nephrology consultation - Continue home Calcium Acetate # HTN # HFpEF # CAD (STEMI 2016) - Continue home Amlodipine - Continue home Losartan - Continue home Hydralazine - Continue home Torsemide - Will hold home Benazepril and confirm with nephrology any indication for both WENDY and ARB # Acute Normocytic Anemia - CBC in AM to trend - Iron studies, B12, Folate, Reticulocyte, Smear, Ferritin # Depression - Continue home Sertraline # Cystic Left Renal Mass - Outpatient urology consultation Diet: Adult Diet Regular; Renal (Dialysis) Tubes/lines: PIV VTE prophylaxis: heparin Code status: Full Code Baseline Mobility: BMAT Level 4 (Able to stand and walk) I personally spent a total of 75 minutes providing and coordinating care today. documented in this encounter Consult Notes * Tc Villa L.I.C.S.W., M.S.W. - 02/07/2023 12:51 PM CDTAssociated Order(s): IP CONSULT TO CARE MANAGEMENT; IP CONSULT TO CARE MANAGEMENT Psychosocial Assessment SUBJECTIVE Assessment Information Referral Source: Provider/Service Referral Reason: Discharge Planning Primary Language: Serbian [employer] Used: No Sexuality/Pronoun: Straight / Person(s) present during interview: patient Disclaimer: They were advised of the various topics that will be assessed during this evaluation. They consented to proceed. The information provided in the assessment is based on review of the medical record as well as the face to face interview. They were advised that the content of this interview will be shared with the health care team and documented in the medical record. They were advised that anyone with access to their patient portal will have access to this information. It was discussed that staff are mandated reporters and they reported understanding. History of Present Illness #1 Failure Renal End Stage (HCC) #2 Hypertensive Heart And Chronic Kidney Disease With Heart Failure And With End Stage Renal Disease (HCC) #3 Anemia #4 Hyperkalemia #5 Hemodialysis Status (HCC) #6 Abdominal Pain Social History Patient's Home Environment: apartment History: No Maltreatment: none reported Current Stressors Hospitalization Coping Skills/Strengths Patient demonstrates insight into his healthcare needs. Financial/Insurance Primary insurance: MEDICARE A AND B Secondary insurance: [facility] Does the patient have any financial concerns? Yes - Cannot afford transportation. Advance Directives Legal Decision Maker: Self Advance Directives: N/A Advance Directives Status: N/A Baseline Functional Status Baseline Activities of Daily Living Mobility: Independent Dressing: Independent Feeding: Independent Bathing: Independent Grooming: Independent Toileting: Independent Behavior: Appropriate, Pleasant, Calm, Cooperative, Oriented Communication: Can write, Understands speaking, Understands Serbian, Talks Baseline Services/Resources Primary care clinic and provider: Dr. Stef Ho, [facility] Additional Resources: Anticipated Needs Transportation set up. OBJECTIVE Substance Abuse no symptoms Mental Health Mental Health History: Patient reports no mental health history Suicide Risk and Safety Risk Assessment: Patient denies active/passive suicidal ideation. Homicidal: no Mental Status Orientation: Oriented to person, place and time Cooperation: cooperative Mood: euthymic Affect: Mood-congruent Speech: Within normal limits for volume, rate and tone Thought content: No abnormality noted Thought process: Logical, linear, and goal-directed ASSESSMENT / PLAN Discussion Social work met with patient for care management consult and reviewed the role of social work at [facility]. Patient expressed understanding and was agreeable to the visit. Social work discussed reasons for hospital admission and discharge planning goals. Prior to hospitalization, patientresided in a apartment without elevator access. He reports confidence in his ability to navigate the stairs into his apartment. . Patient was independent with activities of daily living prior to hospitalization. Patient was not receiving home health/nursing services prior to hospital admission. Patient was not receiving home oxygen services prior to hospital admission. Patient's dialysis services at [facility] have been reconnected. Patient has reliable transportation to dialysis. The aforementioned was confirmed with dialysis liaison. There is no evidence of abuse/neglect/ SI/HI. During the course of the discussion, social work provided education regarding role of social work and discharge planning. Social work provided validation, reflective listening, normalization, and encouragement. The interview was collaboratively conducted with a patient-centered, strengths based approach. Assessment/Impressions Patient was oriented to person, place, and time. Patient appears to be coping well with hospitalization and is planning appropriately for discharge. Tr Interventions Education on the role of inpatient social work Rapport building Comprehensive psychosocial assessment Psychoeducation related to inpatient social work Active and reflective listening Supportive counseling provided through validation, normalization of feelings, and reassurance Plan Patient is being prepared to discharge on 02/07/2023 at 2:30pm, if medically ready for transfer. Please bring patient to [facility] before 2:30pm. Please contact SOCIAL WORK if time needs to be changed. Transportation will be provided by [employer] ) and paid by [employer]. Cait Bran, M.S.W. 02/07/2023 * Odalys Nguyen M.B., B.Ch., B.A.O. - 02/06/2023 9:22 AM CDT Rapid response team FISH BIN TENDER was called for episode of unresponsiveness 37-year-old gentleman with a background history of end-stage renal disease on hemodialysis who is admitted with abdominal pain most likely secondary to gastroenteritis. The patient was undergoing inpatient hemodialysis this morning and once they removed 250 mL of fluid his blood pressure dropped from the 170 systolic to 80 systolic. After which the patient reported that he felt lightheaded and dizzy and felt warm and sweaty as if he is about to pass out. He is then called for the nurses help. The patient then proceeded to have an episode of unresponsiveness where his eyes were gazing to the left. The nurse witnessed the episode did not report any shaking or seizure like activity. She reported that he was unresponsive for 30 seconds and then he came around after that. The patient does not remember passing out. He reports that these episode has happened in the past and he is undergone extensive workup for this and he saw Neurology in [place] they reported that they were unlikely to be seizures. He reported that this episode was similar to the previous ones. On examination he was hemodynamically stable with blood pressures in the 170s systolic. He was maintaining his O2 sats. He was alert and oriented x3. He was responding to questions appropriately. Hispupils were symmetrical and are equal and reactive to light. He had no facial droop there was no slurred speech. His power was intact in the arms bilaterally. His jernigan intact in the lower extremities bilaterally as well. He had a systolic murmur heard throughout the chest wall, his chest normal bilateral air entry with no crepitations or wheeze, there was no lower extremity edema. He had tenderness diffusely on palpation of the abdomen however the abdomen was soft and nondistended. In summary he most likely had a vasovagal episode as he he had prodromal symptoms or feeling nauseous and lightheaded and like he was about to pass out. It was also associated with an episode of hypotension that was transient with systolics in the 80s. The patient will remain in hemodialysis unit and we will continue dialysis in the primary team we will give him some IV fluids to help prevent with another episode of hypotension. The primary team and nurse are happy to keep the patient on the floor. The case was discussed with Dr. Eckert- ICU solutions sales consultant * Danitakang Viola HALLE Aguayo C.NHugo, M.S.N. - 02/05/2023 7:54 AM CDTAssociated Order(s): Nephrology consult (hospital) NEPHROLOGY CONSULT SERVICE - CONSULT NOTE Hospital Day 0 Nephrology consult (hospital) Referring Provider: Xochitl Dewitt M.D. Reason for Consult: Hemodialysis management SUBJECTIVE CHIEF COMPLAINT Abdominal pain and diarrhea, hyperkalemia HISTORY OF PRESENT ILLNESS Mr. Justin is a 37 y.o. male who presents to ED for abdominal pain, vomiting and diarrhea. Due tothese symptoms he has missed outpatient hemodialysis and on presentation to ED also presents volumeoverloaded and hyperkalemic. He has end- stage renal disease related to hypertension and has required hemodialysis since 2018. Other past medical history includes but is not limited to: HFpEF (2/2 HTN) , CAD (STEMI 2016), left renal cyst and depression. In the outpatient setting he dialyzes at [facility] dialysis unit on a Friday, , Friday dialysis schedule using the following hemodialysis prescription: EDW: 61.5 kg Access: Left AVF Outpatient dialysis Rx: 4 hours; 138 Na/2K/2.5Ca/36.5C; 350 BFR; Nipro Elisio 17H dialyzer IV Epogen 3400 units is administered with hemodialysis Friday, , Friday. Intra dialytic IV heparin 5000 unit loading dose is administered at start of hemodialysis for filter clot prophylaxis. He also requires phosphorus binding with oral calcium acetate 2668 mg 3 times daily with meals. Mr. Justin reports he typically tolerates dialysis well. He notes his last hemodialysis was, lastFriday01/27/2023 due to feeling ill. He reports he continues to make daily urine output. He tells me his left AV fistula functions well for outpatient hemodialysis. Today, he denies dyspnea, chest pain, nausea or vomiting. I discussed we will plan his next hemodialysis for , returning him to his normal Friday, , Friday dialysis schedule. He denies questions for nephrology. I have reviewed and updated the following: allergies, current medications, and medical history OBJECTIVE Admission weight: No data found. VITAL SIGNS Temperature: [36.7 ??C-37.1 ??C] 36.8 ??C Resp Rate: [16-22] 16 Blood Pressure: (164-199)/(83-114) 164/83 SpO2: [98 %-100 %] 98 % Pulse Rate: [85-105] 92 PHYSICAL EXAMINATION General: Awake and alert, dialyzing in bed, appears in no acute distress Heart: Regular rate and rhythm Lungs: Nonlabored breathing, continues on room air Extremities: No pitting edema bilateral lower extremities Vessels: Left AVF: cannulated, tolerating a BFR of 350 mL/min. DIAGNOSTICS Recent Labs 02/04/235 HGB 7.8 L WBC 6.9 PLT 332 H Recent Labs 02/04/23 2205 10/29/22 0140 10/20/22 0634 10/19/22 0425 NA 137 139 140 137 KPLASMA 5.7 H 5.1 -- 5.2 BUN 133 H 58 H 24 38 H CREATININE 27.58 H 17.43 H 12.21 H 16.59 H Results from last 7 days Lab Units 02/04/23 2205 CALCIUM P mg/dL 10.2* ALBUMIN g/dL 5.1* No results for input(s): CYSTATINC, EGFRCYSTATNC in the last 2190 hours. Results from last 7 days Lab Units 02/05/23 0047 UADM SOURCE Urine, Urine, Midstream CLARITY U Clear COLOR U Yellow OSMOLALITY UR 3 mOsm/kg 331 DAYA PH URINE 7.1 GLUCOSE UR mg/dL 70* BLOOD UA1 Small* MICM MICROSCOPIC EXAMINATION Normal RBC UA MICM /hpf <3 WBC UR HPF /hpf 1-3 NITRITE U Negative LEUKOCYTES U3 Negative ASSESSMENT / PLAN # ESRD related to hypertension maintained on [facility] hemodialysis since 2018 # Admitted 02/04/2023 abdominal pain with diarrhea # Nausea and vomiting, chronic # Hyperkalemia, acute # Chronic anemia related to end stage renal disease # Hyperphosphatemia related to end stage renal disease # Dialysis consent # Hepatitis B status surveillance Mr. Justin is dialyzing today for 4 hours on a 2.0 mEq/L potassium, 2.5 mEq/L calcium, 138 sodium, 32 bicarb dialysate bath with a net fluid removal goal of 500 mL, targeting his dry weight of 61 kg. He will receive IV Epogen 3400 units with hemodialysis today. Intra dialytic IV heparin 5000 unitbolus will be administered at start of hemodialysis for filter clot prophylaxis. He is hypertensiveduring hemodialysis with a blood pressure 160/101 (106) during my visit; it appears his antihypertensive regimen was not administered prior to hemodialysis today. As part of required hemodialysis monitoring, the Hepatitis B antibody had a quantitative value of 31 on 01/21/2023. Therefore he does have immunity and requires yearly hepatitis B antibody monitoring.His most recent negative hepatitis B antigen was 03/07/2022. I have discussed dialysis, the major risks of dialysis and the alternatives to dialysis, including the option to decline dialysis, and the dialysis treatment team with the patient and have answered all of the patient's questions. Addendum at 3:00 p.m.: I was notified by dialysis nursing staff that Mr. Justin was experiencing chest pain at the end of hemodialysis. On my arrival to his bedside, he reported sharp chest pain. He was off hemodialysis and decannulated. Mr. Justin notes he intermittently has chest pain especially if too much volume is removed with hemodialysis. He is unable to tell me atypical solution for this chest pain. Bedside monitor showed normal sinus rhythm with a few PVCs. An ECG was obtained. Onedose nitro 0.2 mg was administered. Dialysis nursing staff accompanied transport back to Mr. Justin's hospital room and on returned to hospital room Mr. Justin notes resolution of chest pain. Medicine 6 team notified. Recommendations: -- Hemodialysis today -- Renal function panel with am labs -- Hemodialysis , returning him to his TTS schedule Standard Recommendations -- Document strict intake and output -- Renal dialysis diet with 1.5 L/day fluid restriction -- Renally dose-adjust all medications for hemodialysis -- Calcium acetate 1334 mg three times daily with meals for phosphorus binding. If at any time he is NPO please hold this medication. -- IV Epogen 3400 units 3 times weekly; nephrology will manage and order this medication -- Intra dialytic IV heparin 5000 unit bolus; nephrology will manage and order this medication Dismissal Planning: -- Please keep nephrology up to date on dismissal planning to ensure outpatient hemodialysis is arranged appropriately prior to hospital dismissal. Mr. Justin's case has been staffed with Dr. Estes, Nephrology solutions sales consultant. For questions or concerns, please contact the Nephrology C service at [phone]. Associated attestation - Rebecca Estes M.D. - 02/06/2023 8:27 AM CDT I saw and evaluated the patient independently, participating in the saha portions of the service. I reviewed Viola Mosher APRN, C.N.P., M.S.N.'s note. I agree with the DORA???s findings and plan. Additional comments: Patient reports abdominal pain is improved. Tolerating HD well. Of note, he isbelow his EDW, but quite hypertensive, so will try to UF some fluid and adjust EDW as tolerated. Rebecca Estes M.D. Business Analytics Manager Legal Transcriber Nephrology and Hypertension documented in this encounter Nursing Notes * Kylah Alfredo R.N. - 02/06/2023 6:48 AM CDT Problem: PAIN - ADULT Goal: PT VERBALIZES/DEMONSTRATES ADEQUATE COMFORT LEVEL OR BASELINE 02/06/2023 0648 by Kylah Alfredo, R.N. Outcome: Progressing 02/06/2023 0001 by Kylah Alfredo R.N. Outcome: Not Progressing Problem: KNOWLEDGE DEFICIT Goal: Patient/family/caregiver demonstrates understanding of disease process, treatment plan, medications, and discharge instructions Outcome: Progressing Problem: DISCHARGE PLANNING Goal: Patient discharge needs identified Outcome: Progressing Shift Goals: Clinical Goals for the Shift: Patient will report pain of less than 6/10 Identify possible barriers to meeting goals/advancing plan of care: Pain, nausea and emesis End of Shift Summary: Salbador planned to discharge last night, but was unable to find transportation.Patient agreeable to dialysis this morning at 7:30am and plans to discharge home afterward pending transportation via family or friends. Patient had two episodes of emesis yesterday, in the morning and evening. Per patient frequent emesis is his baseline although abdominal pain has been fairly constant. Patient was able to sleep comfortably throughout the night. Medicine team placed order for sucralfate solution for abdominal discomfort as patient had completed remaining Dilaudid orders during the day. VSS although hypertensive in the 170s systolic, asymptomatic. BP (!) 176/97 (BP Location: Right arm;Upper, Patient Position: Lying) Pulse 73 Temp 36.7 ??C (Oral) Resp 16 Ht 166.2 cm SpO2 99% BMI 22.45 kg/m?? documented in this encounter ED Notes * Candi Hanson APRN, C.N.P., D.N.P. - 02/05/2023 3:08 AM CDT Care of patient transferred to tn by Dr. Fenton. Disposition pending CT results and patient's status.. VITAL SIGNS BP (!) 185/114 Pulse 93 Temp 36.8 ??C Resp 18 SpO2 98% ED Course as of 02/05/23354Feb 05, 2023 0320 I spoke with our dialysis nurse team. Unfortunately the patient does not receive his dialysis through [facility] and will need to be admitted for dialysis. Patient unfortunately can not return to his dialysis center without being dialyzed through the hospital 1st. He has missed several dialysis runs earlier this week. Plan will be to admit to the medicine service for dialysis. Final Diagnoses: as of 02/05/23354 Cyst Renal Hemodialysis Status (HCC) Abdominal Pain Hyperkalemia Candi Hanson APRN, C.N.P., D.N.P. 02/05/23 034 Candi Hanson APRN, C.N.P., D.N.P. 02/05/23354 * Renay Hernandez M.D. - 02/04/2023 11:35 PM CDT SUBJECTIVE CHIEF COMPLAINT/REASON FOR VISIT Abdominal Pain and Nausea HISTORY OF PRESENT ILLNESS Salbador Justin is a 37-year-old male with end stage renal failure requiring dialysis (Fri, , Fri) and hypertension who presents to the Emergency Department for evaluation of abdominal pain and nausea. The patient reports that he has missed several days of dialysis. His most recent dialysis was on 01/27/23 (facility was closed on the Friday) but then he missed his appointment after oversleeping, missed his Friday appointment when his ride never showed up, and missed his appointment earlier today when he missed his bus while vomiting. He has been in contact with the dialysis facility who report that they would prefer him to be dialyzed in a hospital given how many appoin tments he has missed. Over the past two days, the patient has had worsening centralized abdominal pain with associated nausea, nonbloody vomiting, nonbloody diarrhea, and headache. He also endorses mild shortness of breath and a wet cough that he attributes to fluid overload in the setting of his missed dialysis appointments. The patient states that he has missed dialysis appointments before but has never had the symptoms he is currently experiencing. He denies any recent sick contacts and denies any associated fever, chills, congestion, rhinorrhea, sore throat, chest pain, urinary changes, testicular or scrotal pain, numbness, or weakness. He has never had previous abdominal surgeries. Of note, the patient does have hypertension and is prescribed multiple antihypertensives. While he notes that he was not very good at taking his medications in the past, he has been taking them as prescribed over the past few weeks. He did take them this morning. History provided by: Patient and medical records conference interpreter needed/used: no REVIEW OF SYSTEMS Constitutional: Negative for chills and fever. HENT: Negative for congestion, rhinorrhea and sore throat. Respiratory: Positive for cough and shortness of breath. Gastrointestinal: Positive for abdominal pain, diarrhea, nausea and vomiting. Negative for constipation and hematemesis. Genitourinary: Negative for dysuria and hematuria. Neurological: Positive for headaches. Hematological: Does not bruise/bleed easily. OBJECTIVE Initial Vitals Temperature 02/04/232017 36.7 ??C Pulse Rate 02/04/232017 87 Heart Rate -- Resp Rate 02/04/232017 18 Blood Pressure 02/04/232017 (!) 182/90 SpO2 02/04/232017 100 % Pain Score 02/04/23 2214 9 PHYSICAL EXAMINATION Constitutional: Nursing note and vitals reviewed. HENT: Head: Atraumatic. Mouth/Throat: Mucous membranes are dry. Eyes: Conjunctivae and EOM are normal. Neck: Neck supple. Cardiovascular: Normal rate, regular rhythm and normal heart sounds. No murmur heard.Edema: no edema noted Pulmonary/Chest: Effort normal and breath sounds normal. No tachypnea. No respiratory distress. Expiration is no prolonged expiration. Air movement is not decreased. He has no wheezes. Abdominal: Soft. exhibits no distension. There is no hepatosplenomegaly. There is generalized abdominal tenderness. There is no rebound and no guarding. Genitourinary: Testes/scrotum normal, testes normal and penis normal. Right scrotum shows no swelling. Left scrotum shows no swelling. Musculoskeletal: General: No deformity. Cervical back: Normal range of motion and neck supple. Neurological: Alert and oriented to person, place, and time. Skin: Skin is warm and normal color. He is not diaphoretic. Psychiatric: He has a normal mood and affect. ASSESSMENT/PLAN Assessment and Plan This is a 37-year-old male with ESRD (on dialysis) who presents to the Emergency Department for evaluation of abdominal pain and nausea after missing several dialysis appointments. On arrival, the patient was hypertensive but otherwise vitally stable, well-appearing, and in no acute distress. Regarding his symptoms, I am concerned for gastroenteritis, appendicitis, bowel obstruction, pancreatitis, unlikely testicular torsion or other pathologies. There is no evidence of ACS. He is quite hypertensive and this is likely secondary to missing dialysis but I have a low clinical suspicion for hypertensive emergency. He is mildly hyperkalemic and since he cannot dialyze at his normal facility, he will likely need to be dialyzed here. Will obtain labs, CT of the head though my suspicion for anintracranial bleed or PRESS is low, and a CT abdomen pelvis. Final disposition pending the ED course. . I reviewed the following external records: office records and primary care records. ED Course as of 02/05/23 1851 Tue Feb 04, 2023 2344 Potassium, P(!): 5.7 Wed Feb 05, 2023 0100 Patient signed out to night team at 1 am pending labs, imaging and final disposition. Final Diagnoses: as of 02/05/231850 Cyst Renal Hemodialysis Status (HCC) Abdominal Pain Hyperkalemia My ECG interpretation is documented in ED Course. My Plain Films interpretation is documented in ED Course. My CT Scan interpretation is documented in ED Course. I have personally seen and examined this patient. I have fully participated in the care of this patient. I personally performed a substantive portion of the visit including all aspects of medical decision making. I agree with the note of the DEHYDRATION PLANT OPERATOR/PA. I personally performed the services described in this documentation, as scribed in my presence, andit is both accurate and complete. Renay Hernandez M.D. 02/05/231850 * Estela Dexter R.N. - 02/04/2023 8:18 PM CDT The patient comes to the ED with abd pain that has been going on for two days. He also reports N/V/D and a DAS. He gets dialysis , Friday but has not had dialysis since last Friday due to various factors per the patient. He was told my his local dialysis he had to come here for dialysis before he could come back to them. He does not appear to be in any acute distress. He denies CP but endors es slight SOB. Estela Dexter R.N. 02/04/232019 documented in this encounter Miscellaneous Notes * Hospital Course - Elvira Sanchez APRN, C.N.P., D.N.P. - 02/05/2023 6:20 PM CDT Mr. Justin was hospitalized on [facility] Medicine 6 ([facility]) for evaluation and management of: Hemodialysis Status (HCC) Mr. Salbador Justin is a very pleasant 37 y.o. male, originally from [facility], with medical comorbidities significant for HFpEF (EF 68% 2/2 HTN), ESRD secondary to hypertensive nephropathy (iHD /), and CAD (STEMI 2015) who presented to [facility] on 02/04/2023 after missing outpatient dialysis and 2 day history of diarrhea and headache. Per chart review, patient typically receives iHD locally in [place]. He has not had a run of iHDsince 01/27/23 (secondary to missing 2 sessions due to over sleeping and lack of ride availability).He missed his session on 02/04 due to vomiting. The patient contacted his dialysis facility who recommended he received dialysis inpatient due to the number of sessions he had missed. In the emergency department, he was noted to be hypertensive with systolics in the 180s, but remained afebrile and was oxygenating well on room air. Laboratory workup demonstrated potassium 5.7, bicarbonate of 16 and an anion gap of 24, elevated BUN (133), a new normocytic anemia (hemoglobin 7.8, was in the 12-13 range 3-4 months ago), and a UA with proteinuria, but without evidence of infection. CT head negative for acute intracranial findings. CT abdomen/pelvis w/o contrast showed marked wallthickening and edema throughout the small bowel with mesenteric edema and ascites, findings nonspecific but could reflect bowel ischemia versus fluid overload versus infectious/inflammatory cause of e nteritis. CT abdomen pelvis with angiography was also done and showed similar wall thickening throughout the small bowel without evidence of bowel ischemia or perforation. Findings most likely related to volume overload in the setting of renal failure and missed dialysis. Additionally noted was a complex cystic left renal mass and moderate ascites. Lactate unremarkable. [facility]. During his admission, nephrology followed closely and managed his dialysis needs, dialyzing him on 02/05 and again on 02/06. Plan is to dialyze at his home unit on 02/08/2023 (return to his regular schedule of Friday, , and Friday). Nephrology also made adjustments to his antihypertensive medications due to persistent hypertension with systolics in the 170s to 180s including increasingCozaar to 100 mg daily (from 25 mg daily), continuing home amlodipine and torsemide, and discontinuing benazepril and hydralazine, Blood pressures did improve with this regimen. Unfortunately, his hospital course was further complicated by intermittent chest pain during dialysis with ECG changes noted. The CCU fellow reviewed his ECG and recommended a repeat ECG done, which showed with similar findings, so will likely no acute events. He was also found to have B12 deficiency with and on 02/05/2023. MMA has been obtained and within normal limits. An FISH BIN TENDER was called on 02/06/2023 for acute hypotension (SBP 160--> SBP 80) after being placed on dialysis with LOC (approximately 30 seconds).Fortunately, he regained consciousness after blood pressure improved. No postictal phase or residual deficits noted. Etiology thought to be a syncope in the setting of vasovagal, after getting the patient connected to dialysis. Patient did appear intravascularly dry given his diarrhea prior to admission and decreased oral intake. Repeat blood work at this time was also unremarkable, but did show hemoglobin of 7.2 (dropping from 7.9 from yesterday). Given his coronary history and syncopal episode, he was transfused with 1 unit RBCs. Repeat blood work this morning shows stable hemoglobin at 8.2 with no signs of bleeding or hemolysis. Iron studies were not indicative of iron deficiency anemia. Etiology for his anemia is thought vero likely multifactorial in the setting of B12 deficiency, anemia chronic disease secondary to dialysis, versus other etiologies including query peptic ulcer disease, versus other. Would recommend ongoing follow-up in the outpatient setting with his PCP and consideration of EGD versus colonoscopy if indicated. He was eventually medically stable for dismissal back home on 02/07/2023. He will plan to resume his regular dialysis session tomorrow on 02/08/2023. PCP follow-up has been arranged. documented in this encounter Plan of Treatment Pending Results Name Type Priority Associated Diagnoses Date /Time Prepare Red Blood Cells, 1 Units Blood Bank Routine 02/06/2023 9:37 AM CDT documented as of this encounter Procedures Procedure Name Priority Date/Time Associated Diagnosis Comments HEMOGLOBIN, B Timed 02/07/2023 11:02 AM CDT CBC WITH DIFFERENTIAL, B Routine 02/07/2023 7:46 AM CDT BASIC METABOLIC PANEL, S/P Routine 02/07/2023 7:46 AM CDT HEMOGLOBIN, B Timed 02/06/2023 4:59 PM CDT TRANSFUSE RED BLOOD CELLS Routine 02/06/2023 10:45 AM CDT PREPARE RED BLOOD CELLS Routine 02/06/2023 9:37 AM CDT TYPE AND SCREEN Routine 02/06/2023 9:37 AM CDT LACTATE DEHYDROGENASE (LD), S STAT 02/06/2023 9:37 AM CDT LACTATE, B/P STAT 02/06/2023 9:37 AM CDT GLUCOSE POCT, B Routine 02/06/2023 8:04 AM CDT RENAL FUNCTION PANEL, S Timed 02/06/2023 7:40 AM CDT HEPATIC FUNCTION PANEL, S Routine 02/06/2023 7:40 AM CDT SOLUBLE TRANSFERRIN RECEPTOR (STFR), S Routine 02/06/2023 7:40 AM CDT SPSMA RESULT Routine 02/06/2023 7:40 AM CDT IRON AND TOT IRON-BINDING CAPACITY, S/P Routine 02/06/2023 7:40 AM CDT CBC WITH DIFFERENTIAL, B Timed 02/06/2023 7:40 AM CDT PHOSPHORUS (INORGANIC), S STAT 02/06/2023 7:40 AM CDT MAGNESIUM, S Timed 02/06/2023 7:40 AM CDT MAGNESIUM, S STAT 02/06/2023 7:40 AM CDT HEMOGLOBIN A1C, B Routine 02/06/2023 7:4 0 AM CDT FOLATE, S Routine 02/06/2023 7:40 AM CDT FERRITIN, S Routine 02/06/2023 7:40 AM CDT ECG STAT 02/05/2023 7:57 PM CDT CBC WITH DIFFERENTIAL, B STAT 02/05/2023 6:53 PM CDT ECG Routine 02/05/2023 4:42 PM CDT HEMODIALYSIS Routine 02/05/2023 3:23 PM CDT ECG STAT 02/05/2023 2:14 PM CDT RETICULOCYTE PROFILE, B Routine 02/05/2023 9:58 AM CDT SPSMA RESULT Routine 02/05/2023 9:58 AM CDT METHYLMALONIC ACID (MMA), CHRISTOPHER, S Routine 02/05/2023 9:58 AM CDT IRON AND TOT IRON-BINDING CAPACITY, S/P Routine 02/05/2023 9:58 AM CDT CBC WITH DIFFERENTIAL, B STAT 02/05/2023 9:58 AM CDT PHOSPHORUS (INORGANIC), S Routine 02/05/2023 9:58 AM CDT MAGNESIUM, S STAT 02/05/2023 9:58 AM CDT FOLATE, S Routine 02/05/2023 9:58 AM CDT FERRITIN, S Routine 02/05/2023 9:58 AM CDT VITAMIN B12 ASSAY, S Routine 02/05/2023 9:58 AM CDT BASIC METABOLIC PANEL, S/P STAT 02/05/2023 9:58 AM CDT HEMODIALYSIS Routine 02/05/2023 7:[address] ABDOMEN PELVIS ANGIOGRAM WITH IV CONTRAST RAD - Semiurgent (Fast; most ED patients; some inpatients) 02/05/2023 2:[address] HEAD WITHOUT IV CONTRAST RAD - Semiurgent (Fast; most ED patients; some inpatients) 02/05/2023 1:[address] ABDOMEN PELVIS WITHOUT IV CONTRAST RAD - Semiurgent (Fast; most ED patients; some inpatients) 02/05/2023 1:13 AM CDT DIPSTICK, U STAT 02/05/2023 12:47 AM CDT MICROSCOPIC MANUAL STAT 02/05/2023 12 :47 AM CDT BACTERIAL CULTURE, AEROBIC + SUSC, URINE STAT 02/05/2023 12:47 AM CDT PH, U STAT 02/05/2023 12:47 AM CDT OSMOLALITY, U STAT 02/05/2023 12:47 AM CDT URINALYSIS WITH MICROSCOPIC STAT 02/05/2023 12:47 AM CDT HEPATIC FUNCTION PANEL, S STAT 02/04/2023 10:05 PM CDT CBC WITH DIFFERENTIAL, B STAT 02/04/2023 10:05 PM CDT LIPASE, S/P STAT 02/04/2023 10:05 PM CDT LACTATE, B/P STAT 02/04/2023 10:05 PM CDT BASIC METABOLIC PANEL, S/P STAT 02/04/2023 10:05 PM CDT DX CHEST AP OR PA AND LATERAL 2 VIEWS RAD - Semiurgent (Fast; most ED patients; some inpatients) 02/04/2023 8:43 PM CDT ECG STAT 02/04/2023 8:22 PM CDT HAPTOGLOBIN, S Routine 02/04/2023 2:36 PM CDT documented in this encounter Results * (ABNORMAL) Hemoglobin (02/07/2023 11:02 AM CDT) Pathologist [facility] Hemoglobin 8.2(L) 13.2 - 16.6 g/dL 02/07/2023 11:51 AM CDT DTL Blood (Blood, Venous) 02/07/2023 11:02 AM CDT 02/07/2023 11:42 AM CDT Antonieta Eckert APRN.N.P., D.N .P. LAB BLOOD ADD-ON [facility] [address] [place] [address], [facility] [address] [place] [address] * (ABNORMAL) Basic Metabolic Panel (02/07/2023 7:46 AM CDT) Pathologist [facility] Potassium, S 4.3 3.6 - 5.2 mmol/L [...] C.N.P., D.N .P. LAB BLOOD ADD-ON [facility] [address] [address], [facility] [place] [address] * (ABNORMAL) CBC with Differential, Blood (02/07/2023 7:46 AM CDT) Hemoglobin 7.8(L) 13.2 - 16.6 g/dL 02/07/2023 [...] APRN, C.N.P., D.N .P. LAB BLOOD ADD-ON [facility] [address] [place] [address], [facility] DTL [facility] [address] [place] [address] [facility] [address] [place] [address] * (ABNORMAL) Hemoglobin (02/06/2023 4:59 PM CDT) Hemoglobin 8.2(L) 13.2 - 16.6 g/dL 02/06/2023 5:39 PM CDT DTL Blood (Blood, Venous) 02/06/2023 4:59 PM CDT 02/06/2023 5:29 PM CDT Elvira Sanchez APRN, C.N.P., D.N .P. LAB BLOOD ADD-ON [facility] [address] [place] [address], [facility] DTL [facility] [address] [place] [address] * Transfuse Red Blood Cells : (02/06/2023 1:13 PM CDT) Elvira Sanchez APRN, C.N.P., D.N .P. BLOOD TRANSFUSION ORDERABLES * Transfuse Red Blood Cells : , 1 Units (02/06/2023 1:13 PM CDT) Elvira Sanchez APRN, C.N.P., D.N .P. BLOOD TRANSFUSION ORDERABLES * Type and Screen (with Reflex Antibody ID) (02/06/2023 9:37 AM CDT) [facility] Pos Not applicable 02/06/2023 10:06 AM CDT STRM Antibody Screen Negative Negative 02/06/2023 10:21 AM CDT STRM Type & Screen Expiration 02/09/2023 23:59 02/06/2023 10:06 AM CDT STRM Testing Location Almo DEFAULT 02/06/2023 9:42 AM CDT STRM Blood (Blood, Venous) 02/06/2023 9:37 AM CDT 02/06/2023 9:42 AM CDT Elvira Sanchez APRN, C.N.P., D.N .P. LAB BLOOD BANK TEST ORDERABLES [facility] [address] [place] [address], [facility] STRM [facility] [address] [place] [address] * LD (Lactate Dehydrogenase) (02/06/2023 9:37 AM CDT) [facility] LD 164 122 - 222 U/L 02/06/2023 10:32 AM CDT DTL Blood (Blood, Venous) 02/06/2023 9:37 AM CDT 02/06/2023 10:15 AM CDT Kanchan Eckert APRNNJuan CPJuan C, D.N .P. LAB BLOOD NON ADD-ON Performing Organization Address City/[facility] Co de Phone Number [facility] [address] [place] [address], [facility] DTL [facility] [address] [place] [address] * Lactate (02/06/2023 9:37 AM CDT) Pathologist [facility] Lactate, P 0.6 0.5 - 2.2 mmol/L 02/06/2023 9:52 AM CDT STMA Blood (Blood, Venous) 02/06/2023 9:37 AM CDT 02/06/2023 9:41 AM CDT Mikey Orta M.D. LAB BLOOD NON ADD -ON Performing Organization Address City/[facility] Co de Phone Number [facility] [address] [place], [place] [phone] [place] [address] STMA [facility] [address] [place] [address] * Glucose, POCT (02/06/2023 8:04 AM CDT) [facility] Glucose, POCT, B 119 70 - 140 mg/dL 02/06/2023 8:06 AM CDT PCLX Site Capillary 02/06/2023 8:06 AM CDT PCLX Blood 02/06/2023 8:04 AM CDT 02/06/2023 8:06 AM CDT Unknown Provider LAB POCT ORDERABLES- MANUAL Performing Organization Address City/[facility]/ZIP Co de Phone Number POC [facility] [address] [place] [address], [facility] PCLX [facility] POC [address] [place] [address] * Hemoglobin A1c (02/06/2023 7:40 AM CDT) [facility] Hemoglobin A1c, B 4.6 4.0 - 5.6 % 02/06/2023 4:41 PM CDT DTL Blood (Blood, Venous) 02/06/2023 7:40 AM CDT 02/06/2023 4:23 PM CDT Kanchan Eckert APRNNHugo, PauloN Hugo LAB BLOOD ADD-ON Performing Organization Address City/[facility]/ZIP Co de Phone Number [facility] [address] [place] [address], [facility] DTL [facility] [address] [place] [address] * (ABNORMAL) SPSMA Result (02/06/2023 7:40 AM CDT) Neutrophilic Segs and Bands 49(L) 50 - [...] CDT Mikey Orta M.D. LAB BLOOD ADD-ON [facility] [address] [place] [address], [facility] DHPM [facility] [address] [place] [address] * Folate (02/06/2023 7:40 AM CDT) Folate, S 7.3 >=4.0 mcg/L 02/06/2023 10:22 AM CDT DTL Blood (Blood, Venous) 02/06/2023 7:40 AM CDT 02/06/2023 9:10 AM CDT Antonieta Eckert APRN.N.PJuan C, D.N .P. LAB BLOOD ADD-ON [facility] [address] [place], [place] [phone] [place] [address] 200 [place] [address] * (ABNORMAL) Soluble Transferrin Receptor (sTfR) (02/06/2023 7:40 AM CDT) Soluble Transferrin Receptor (sTfR) 1.2(L) 1.8 - 4.6 mg/L 02/06/2023 9:58 AM CDT DT Comment: ----ADDITIONAL INFORMATION---- It is reported that Americans may have slightly higher values. Blood (Blood, Venous) 02/06/2023 7:40 AM CDT 02/06/2023 9:10 AM CDT Antonieta Eckert APRN.N.P., D.N .P. LAB BLOOD ADD-ON Performing Organization Address City/[facility]/ZIP Co de Phone Number [facility] [address] [place], [place] [phone] [place] [address] 200 [place] [address] * (ABNORMAL) Ferritin (02/06/2023 7:40 AM CDT) Ferritin, S 1226(H) 31 - 409 mcg/L 02/06/2023 9:58 AM CDT DT Blood (Blood, Venous) 02/06/2023 7:40 AM CDT 02/06/2023 9:10 AM CDT Elvira Sanchez APRN, Antonieta.N.P., D.N .P. LAB BLOOD ADD-ON [facility] [address] [place] [address], [facility] [address] [address] * (ABNORMAL) Iron and Total Iron-Binding Capacity (02/06/2023 7:40 AM CDT) [facility] Iron 113 50 - 150 mcg/dL 02/06/2023 9:58 AM CDT DTL Total Iron Binding Capacity 142(L) 250 - 400 mcg/dL 02/06/2023 9:58 AM CDT DTL Percent Saturation 80(H) 14 - 50 % 02/06/2023 9:58 AM CDT DTL Blood (Blood, Venous) 02/06/2023 7:40 AM CDT 02/06/2023 9:10 AM CDT Elvira Sanchez APRN, C.N.P., D.N .P. LAB BLOOD ADD-ON Performing Organization Address City/State/[facility] Co de Phone Number [address] [address], [facility] [address] [address] * (ABNORMAL) Hepatic Function Panel (02/06/2023 7:40 AM CDT) [facility] Bilirubin, Total, S 0.6 0.0 - 1.2 [...] M.D. LAB BLOOD ADD-ON Performing Organization Address City/[facility]/ZIP Co de Phone Number [facility] [address] [place] [address] * Magnesium (02/06/2023 7:40 AM CDT) Pathologist [facility] Magnesium, S 1.9 1.7 - 2.3 mg/dL 02/06/2023 8:49 AM CDT DTL Blood (Blood, Venous) 02/06/2023 7:40 AM CDT 02/06/2023 8:24 AM CDT Elvira Sanchez APRN, C.N.P., D.N .P. LAB BLOOD ADD-ON Performing Organization Address City/[facility]/ZIP Co de Phone Number [facility] [address] [place] [address], [place] [address] * (ABNORMAL) CBC with Differential, Blood (02/06/2023 7:40 AM CDT) Hemoglobin 7.2(L) 13.2 - 16.6 g/dL 02/06/2023 8:30 AM CDT DTL Hematocrit 21.8(L) 38.3 - 48.6 % 02/06/2023 8:30 AM CDT DTL Erythrocytes 2.57(L) 4.35 - 5.65 x10(12)/L 02/06/2023 8:30 AM CDT DTL MCV 84.8 78.2 - 97.9 fL 02/06/2023 8:30 AM CDT DTL RBC Distrib Width 16.6(H) 11.8 - 14.5 % 02/06/2023 8:30 AM CDT DTL Platelet Count 273 135 - 317 x10(9)/L 02/06/2023 8:30 AM CDT DTL Leukocytes 5.7 3.4 - 9.6 x10(9)/L 02/06/2023 8:30 AM CDT DTL Neutrophils 2.74 1.56 - 6.45 x10(9)/L 02/06/2023 8:30 AM CDT DHPM Lymphocytes 1.77 0.95 - 3.07 x10(9)/L 02/06/2023 8:30 AM CDT DTL Monocytes 0.70 0.26 - 0.81 x10(9)/L 02/06/2023 8:30 AM CDT DTL Eosinophils 0.41 0.03 - 0.48 x10(9)/L 02/06/2023 8:30 AM CDT DTL Basophils 0.03 0.01 - 0.08 x10(9)/L 02/06/2023 8:30 AM CDT DTL Blood (Blood, Venous) 02/06/2023 7:40 AM CDT 02/06/2023 8:05 AM CDT Elvira Sanchez APRN, C.N.P., D.N .P. LAB BLOOD ADD-ON [facility] [address] [place] [address], [facility] DTL [facility] [address] [place] [address] [facility] [address] [place] [address] * (ABNORMAL) Renal Function Panel (02/06/2023 7:40 [...] C.N.P., D.N .P. LAB BLOOD ADD-ON [facility] [address] [place] [address], [facility] [address] [place] [address] * (ABNORMAL) Phosphorus Inorganic (02/06/2023 7:40 AM CDT) Phosphorus (Inorganic), S 5.9(H) 2.5 - 4.5 mg/dL 02/06/2023 8:47 AM CDT DTL Blood (Blood, Venous) 02/06/2023 7:40 AM CDT 02/06/2023 8:26 AM CDT Antonieta Eckert APRN.N.P., D.N .P. LAB BLOOD ADD-ON Performing Organization Address City/[facility] Co de Phone Number [facility] [address] [place] [address], [facility] [address] [place] [address] * Magnesium (02/06/2023 7:40 AM CDT) Pathologist [facility] Magnesium, S 1.9 1.7 - 2.3 mg/dL 02/06/2023 8:47 AM CDT DTL Blood (Blood, Venous) 02/06/2023 7:40 AM CDT 02/06/2023 8:26 AM CDT Antonieta Eckert APRN.N.P., D.N .P. LAB BLOOD ADD-ON Performing Organization Address City/[facility] Co de Phone Number [facility] [address] [place] [address], [facility] [address] [place] [address] * ECG 12 Lead (02/05/2023 7:57 PM CDT) Ventricular Rate ECG/Min 89 BPM MUSE MA Interval 142 ms MUSE QRSD Interval 100 ms MUSE QT Interval 410 ms MUSE QTC Interval 498 ms MUSE P [place] 62 degrees MUSE R [place] 57 degrees MUSE T Wave [place] 104 degrees MUSE 02/05/2023 7:57 PM CDT [...] longer present Reviewed by Perfecto Lugo III, JOSHUAT Elvira Sanchez APRN, C.N.P., D.N .P. ECG ORDERABLES MUSE NA * (ABNORMAL) CBC with Differential, Blood (02/05/2023 6:53 PM CDT) Hemoglobin 7.9(L) 13.2 - 16.6 g/dL 02/05/2023 7:02 PM CDT STMA Hematocrit 23.5(L) 38.3 - 48.6 % 02/05/2023 7:02 PM CDT STMA Erythrocytes 2.86(L) 4.35 - 5.65 x10(12)/L 02/05/2023 7:02 PM CDT STMA MCV 82.2 78.2 - 97.9 fL 02/05/2023 7:02 PM CDT STMA RBC Distrib Width 16.2(H) 11.8 - 14.5 % 02/05/2023 7:02 PM CDT STMA Platelet Count 270 135 - 317 x10(9)/L 02/05/2023 7:02 PM CDT STMA Leukocytes 4.8 3.4 - 9.6 x10(9)/L 02/05/2023 7:02 PM CDT STMA Neutrophils 2.87 1.56 - 6.45 x10(9)/L 02/05/2023 7:02 PM CDT DHPM Lymphocytes 1.19 0.95 - 3.07 x10(9)/L 02/05/2023 7:02 PM CDT STMA Monocytes 0.56 0.26 - 0.81 x10(9)/L 02/05/2023 7:02 PM CDT STMA Eosinophils 0.16 0.03 - 0.48 x10(9)/L 02/05/2023 7:02 PM CDT STMA Basophils <0.03 0.01 - 0.08 x10(9)/L 02/05/2023 7:02 PM CDT STMA Blood (Blood, Venous) 02/05/2023 6:53 PM CDT 02/05/2023 6:58 PM CDT Elvira M Daniel NERI, C.N.P., D.N .P. LAB BLOOD ADD-ON [facility] [address] [place] [address], [facility] STMA [facility] [address] [place] [address] DHPM [facility] [address] [place] [address] * ECG 12 Lead (02/05/2023 4:42 PM CDT) Ventricular Rate ECG/Min 89 BPM MUSE MA Interval 140 ms MUSE QRSD Interval 114 ms MUSE QT Interval 412 ms MUSE QTC Interval 501 ms MUSE P [place] 72 degrees MUSE R [place] 76 degrees MUSE T Wave [place] 71 degrees MUSE 02/05/2023 4:42 PM CDT 02/05/2023 4:47 PM CDT Impressions MUSE - 02/05/2023 4:47 PM CDT Sinus rhythm Premature ventricular complexes Minimal voltage criteria for LVH, may be normal variant Non-specific intra-ventricular conduction delay ST and T wave abnormality, consider lateral ischemia Prolonged QT When compared with ECG of 05-FEB-2023 14:14, No significant change was found Reviewed by Perfecto Lugo III, CRAT Narrative Procedure Note Joselito Cast M.D. - 02/05/2023 IMPRESSION: Sinus rhythm Premature ventricular complexes Minimal voltage criteria for LVH, may be normal variant Non-specific intra-ventricular conduction delay ST and T wave abnormality, consider lateral ischemia Prolonged QT When compared with ECG of 05-FEB-2023 14:14, No significant change was found Reviewed by Perfecto Lugo III, CRAT Elvira Delaney Kanchan Sanchez APRNN.P., D.N .P. ECG ORDERABLES Performing Organization Address [facility] de Phone Number MUSE NA * ECG 12 Lead (02/05/2023 2:14 PM CDT) Ventricular Rate ECG/Min 82 BPM MUSE MA Interval 148 ms MUSE QRSD Interval 114 ms MUSE QT Interval 406 ms MUSE QTC Interval 474 ms MUSE P [place] 67 degrees MUSE R [place] 72 degrees MUSE T Wave [place] 83 degrees MUSE 02/05/2023 2:14 PM CDT 02/05/2023 2:24 PM CDT Impressions MUSE - 02/05/2023 2:24 PM CDT Sinus rhythm Premature ventricular complexes Moderate voltage criteria for LVH, may be normal variant Non-specific intra-ventricular conduction delay ST and T wave abnormality, consider lateral ischemia Prolonged QT When compared with ECG of 04-FEB-2023 20:22, Significant changes have occurred Reviewed by Perfecto Lugo III, CRAT Narrative Procedure Note Buddy Hinojosa M.D. - 02/05/2023 IMPRESSION: Sinus rhythm Premature ventricular complexes Moderate voltage criteria for LVH, may be normal variant Non-specific intra-ventricular conduction delay ST and T wave abnormality, consider lateral ischemia Prolonged QT When compared with ECG of 04-FEB-2023 20:22, Significant changes have occurred Reviewed by Perfecto Lugo III, CRAT Antonieta Du APRN.N.PJuan C, M.S.N. ECG ORDERABLES Performing Organization Address [facility] Co de Phone Number MUSE NA * Methylmalonic Acid (MMA), Quantitative (02/05/2023 9:58 AM CDT) Methylmalonic Acid, QN, S 0.32 <=0.40 nmol/mL 02/07/2023 8:32 AM CDT DTL Comment: ----ADDITIONAL INFORMATION---- This test was developed and its performance characteristics determined by [facility] in a manner consistent with CLIA requirements. This test has not been cleared or approved by the U.S. Food and Drug Administration. Blood (Blood, Venous) 02/05/2023 9:58 AM CDT 02/06/2023 7:37 AM CDT Kanchan Eckert APRNNRashida., D.N .P. LAB BLOOD ADD-ON [facility] [address] [place] [address], [facility] DTL [address] [facility] [address] [place] [address] * (ABNORMAL) CBC with Differential, Blood (02/05/2023 9:58 AM CDT) Hemoglobin 7.9(L) 13.2 - 16.6 g/dL 02/05/2023 10:45 AM CDT STMA Hematocrit 23.9(L) 38.3 - 48.6 % 02/05/2023 10:45 AM CDT STMA Erythrocytes 2.85(L) 4.35 - 5.65 x10(12)/L 02/05/2023 10:45 AM CDT STMA MCV 83.9 78.2 - 97.9 fL 02/05/2023 10:45 AM CDT STMA RBC Distrib Width 16.8(H) 11.8 - 14.5 % 02/05/2023 10:45 AM CDT STMA Platelet Count 342(H) 135 - 317 x10(9)/L 02/05/2023 10:45 AM CDT STMA Leukocytes 6.6 3.4 - 9.6 x10(9)/L 02/05/2023 10:45 AM CDT STMA Neutrophils 5.38 1.56 - 6.45 x10(9)/L 02/05/2023 10:45 AM CDT DHPM Lymphocytes 0.76(L) 0.95 - 3.07 x10(9)/L 02/05/2023 10:45 AM CDT STMA Monocytes 0.37 0.26 - 0.81 x10(9)/L 02/05/2023 10:45 AM CDT STMA Eosinophils 0.08 0.03 - 0.48 x10(9)/L 02/05/2023 10:45 AM CDT STMA Basophils 0.03 0.01 - 0.08 x10(9)/L 02/05/2023 10:45 AM CDT STMA Blood (Blood, Venous) 02/05/2023 9:58 AM CDT 02/05/2023 10:37 AM CDT Elvira Sanchez APRN, C.N.P., D.N .P. LAB BLOOD ADD-ON [facility] [address] [place] [address], [facility] STMA [facility] [address] [place] [address] [facility] [address] [place] [address] * (ABNORMAL) Basic Metabolic Panel (02/05/2023 9:58 AM CDT) [facility] Potassium, P 5.6(H) 3.6 - 5.2 mmol/L 02/05/2023 10:57 AM CDT STMA Sodium, P 136 135 - 145 mmol/L 02/05/2023 10:57 AM CDT STMA Chloride, P 96(L) 98 - 107 mmol/L 02/05/2023 10:57 AM CDT STMA Bicarbonate, P 15(L) 22 - 29 mmol/L 02/05/2023 10:57 AM CDT STMA Anion Gap, P 25(H) 7 - 15 02/05/2023 10:57 AM CDT STMA BUN (Blood Urea Nitrogen), P 139(H) 8 - 24 mg/dL 02/05/2023 11:04 AM CDT STMA Creatinine 28.84(H) 0.74 - 1.35 mg/dL 02/05/2023 10:57 AM CDT STMA Estimated GFR (eGFR) <15(L) >=60 mL/min/BSA 02/05/2023 10:57 AM CDT STMA Comment: Estimated GFR calculated using the 2020 CKD_EPI creatinine equation. Calcium, Total, P 9.7 8.6 - 10.0 mg/dL 02/05/2023 10:57 AM CDT STMA Glucose, P 115 70 - 140 mg/dL 02/05/2023 10:57 AM CDT STMA Blood (Blood, Venous) 02/05/2023 9:58 AM CDT 02/05/2023 10:37 AM CDT Kanchan Eckert APRNNHugo, D.N .P. LAB BLOOD ADD-ON Performing Organization Address City/[facility]/ZIP Co de Phone Number [facility] [address] STMA [facility] [address] [place] [address] * Folate (02/05/2023 9:58 AM CDT) Folate, S 9.5 >=4.0 mcg/L 02/05/2023 1: 27 PM CDT DTL Blood (Blood, Venous) 02/05/2023 9:58 AM CDT 02/05/2023 10:49 AM CDT Xochitl Dewitt M.D. LAB BLOOD ADD -ON Performing Organization Address City/[facility] Co de Phone Number [facility] [address] [place] [address], [facility] [place] [address] * (ABNORMAL) Vitamin B12 Assay (02/05/2023 9:58 AM CDT) Vitamin B12 Assay, S 163(L) 180 - [...] LAB BLOOD ADD -ON Performing Organization Address City/[facility]/ZIP Co de Phone Number [facility] [address] [place] [address], [facility] DTL [facility] [address] [place] [address] * (ABNORMAL) SPSMA Result (02/05/2023 9:58 AM CDT) Neutrophilic Segs and Bands 85(H) 50 - 75 % 02/05/2023 12:30 PM CDT DHPM Lymphocytes 8(L) 18 - 42 % 02/05/2023 12:30 PM CDT DHPM Monocytes 4 2 - 11 % 02/05/2023 12:30 PM CDT DHPM Eosinophils 2 1 - 3 % 02/05/2023 12:30 PM CDT DHPM Basophils 1 0 - 2 % 02/05/2023 12:30 PM CDT DHPM Interpretation See Comment 12:30 PM CDT DHPM Comment:Peripheral blood sme ar reviewed: no diagnostic abnormalities are seen. Reviewed by: Oleg 02/05/2023 12:30 PM CDT DHPM Blood (Blood, Venous) 02/05/2023 9:58 AM CDT 02/05/2023 10:32 AM CDT Xochitl Dewitt M.D. LAB BLOOD ADD -ON [facility] [address] [place] [address], [facility] DHPM [facility] [address] [place] [address] * (ABNORMAL) Reticulocyte Profile (02/05/2023 9:58 AM [...] LAB BLOOD ADD -ON Performing Organization Address City/[facility]/ZIP Co de Phone Number [facility] [address] [facility] [address] [place] [address] * (ABNORMAL) Ferritin (02/05/2023 9:58 AM CDT) Ferritin, S 1364(H) 31 - 409 mcg/L 02/05/2023 11:24 AM CDT DTL Blood (Blood, Venous) 02/05/2023 9:58 AM CDT 02/05/2023 10:49 AM CDT Xochitl Dewitt M.D. LAB BLOOD ADD -ON [facility] [address] [place], [place] [phone] [place] [address] [place] [address] * (ABNORMAL) Iron and Total Iron-Binding Capacity (02/05/2023 9:58 AM CDT) Iron 82 50 - 150 mcg/dL 02/05/2023 11:24 AM CDT DTL Total Iron Binding Capacity 173(L) 250 - 400 mcg/dL 02/05/2023 11:24 AM CDT DTL Percent Saturation 47 14 - 50 % 02/05/2023 11:24 AM CDT DTL Blood (Blood, Venous) 02/05/2023 9:58 AM CDT 02/05/2023 10:49 AM CDT Xochitl Dewitt M.D. LAB BLOOD ADD -ON Performing Organization Address City/[facility] Co de Phone Number [facility] [address] [place] [address] * (ABNORMAL) Phosphorus Inorganic (02/05/2023 9:58 AM CDT) Phosphorus (Inorganic), S 8.2(H) 2.5 - 4.5 mg/dL 02/05/2023 12:19 PM CDT DTL Blood (Blood, Venous) 02/05/2023 9:58 AM CDT 02/05/2023 10:49 AM CDT Xochitl Dewitt M.D. LAB BLOOD ADD -ON Performing Organization Address [facility] Co de Phone Number [facility] [address] [place], [place] [id number] [place] [address] [address] [place] [address] * (ABNORMAL) Magnesium (02/05/2023 9:58 AM CDT) Magnesium, S 2.7(H) 1.7 - 2.3 mg/dL 02/05/2023 10:56 AM CDT DTL Blood (Blood, Venous) 02/05/2023 9:58 AM CDT 02/05/2023 10:40 AM CDT Renay Bolton M.D. LAB BLOOD ADD-ON Performing Organization Address City/[facility]/ZIP Co de Phone Number [facility] [address] [place] [phone], [facility] DTL [facility] [address] [place] [address] [place] [address] * CT Abdomen Pelvis Angiogram with IV [...] cystic mass in the left kidney. Candi Kanchan Conteh APRNNHugo, Eulogio.N.P. [facility] CT PROCEDURES * CT Abdomen Pelvis without IV Contrast [...] Nobowel obstruction. No perforation. Renay Bolton M.D. [facility] CT MA OCEDURES * CT Head without IV Contrast (02/05/2023 [...] No acute intracranial findings. Renay Bolton M.D. [facility] CT MA OCEDURES * Microscopic Manual (02/05/2023 12:47 AM CDT) [...] M.D. LAB URINE ORDERABLES Performing Organization Address [facility] Co de Phone Number [facility] [address] [place] [address], [facility] [address] [place] [address] * (ABNORMAL) Dipstick, Urine (02/05/2023 12:47 AM [...] M.D. LAB URINE ORDERABLES Performing Organization Address City/[facility] Co de Phone Number [facility] [address] [place] [address], [facility] [address] [place] [address] * pH, Urine (02/05/2023 12:47 AM CDT) pH, U 7.1 4.5 - 8.0 02/05/2023 1:3 6 AM CDT DTL Urine 02/05/2023 12:4 7 AM CDT 02/05/2023 1:09 AM CDT Bishop Melgar M.D. LAB URINE ORDERABLES Performing Organization Address [facility] Co de Phone Number [facility] [address] [place], [place] [phone] [place] [address] [address] [place] [address] * Osmolality, Urine (02/05/2023 12:47 AM CDT) Pathologist [facility] Osmolality, U 331 150 - 1150 mOsm/kg 02/05/2023 1:36 AM CDT DT Urine 02/05/2023 12:4 7 AM CDT 02/05/2023 1:09 AM CDT Bishop Melgar M.D. LAB URINE ORDERABLES Performing Organization Address [facility] Co de Phone Number [facility] [address] [place], [place] [id number] [place] [address] [address] [place] [address] * Bacterial Culture, Aerobic + Susceptibility, Urine (02/05/2023 12:47 AM CDT) [facility] Urine Culture No growth after 1 day of incubation. 02/06/2023 8:15 AM CDT [facility] Urine (Urine, Midstream) 02/05/2023 12:47 AM CDT 02/05/2023 4:25 AM CDT Comment:Specimen Source Site : Urine Bishop Melgar M.D. LAB MICROBIOLOGY - G ENERAL ORDERABLES Performing Organization Address City/[facility] Co de Phone Number [facility] [address] [place], [place] [phone] [place] [address] [address] [place] [address] * (ABNORMAL) Urinalysis with Microscopic: Urine, Midstream (02/05/2023 12:47 AM CDT) Pathologist [facility] Source Urine, Urine, Midstream 02/05/2023 1:09 AM CDT DTL Color, U Yellow 02/05/2023 1:09 AM CDT DTL Clarity, U Clear 02/05/2023 1:09 AM CDT DTL Protein, U 231(H) <26 mg/dL 02/05/2023 2:01 AM CDT DTL Protein/Osmol ality 6.98(H) <0.42 ratio 02/05/2023 2:01 AM CDT DTL Predicted 24 HR Protein, U 5998(H) <229 mg/24 h 02/05/2023 2:01 AM CDT DTL Predicted Range 1904-08055 mg/24 h 02/05/2023 2:01 AM CDT DTL Urine (Urine, Midstream) 02/05/2023 12:47 AM CDT 02/05/2023 1:09 AM CDT Bishop Melgar M.D. LAB URINE ORDERABLES Performing Organization Address City/[facility]/ZIP Co de Phone Number [facility] [address] [place], [place] [phone] [place] [address] DTL [facility] 200 [place] [address] * Lactate (02/04/2023 10:05 PM CDT) [facility] Lactate, P 1.0 0.5 - 2.2 mmol/L 02/04/2023 10:40 PM CDT STMA Blood (Blood, Venous) 02/04/2023 10:05 PM CDT 02/04/2023 10:21 PM CDT Bishop Melgar M.D. LAB BLOOD NON ADD-ON [facility] [address] [place], [place] [phone] [place], [place] [address] [place] [address] * (ABNORMAL) CBC with Differential, Blood (02/04/2023 10:05 PM CDT) [facility] Hemoglobin 7.8(L) 13.2 - 16.6 g/dL 02/04/2023 10:25 PM CDT STMA Hematocrit 24.0(L) 38.3 - 48.6 % 02/04/2023 10:25 PM CDT STMA Erythrocytes 2.84(L) 4.35 - 5.65 x10(12)/L 02/04/2023 10:25 PM CDT STMA MCV 84.5 78.2 - 97.9 fL 02/04/2023 10:25 PM CDT STMA RBC Distrib Width 16.8(H) 11.8 - 14.5 % 02/04/2023 10:25 PM CDT STMA Platelet Count 332(H) 135 - 317 x10(9)/L 02/04/2023 10:25 PM CDT STMA Leukocytes 6.9 3.4 - 9.6 x10(9)/L 02/04/2023 10:25 PM CDT STMA Neutrophils 4.71 1.56 - 6.45 x10(9)/L 02/04/2023 10:25 PM CDT DH[facility] Lymphocytes 1.13 0.95 - 3.07 x10(9)/L 02/04/2023 10:25 PM CDT STMA Monocytes 0.52 0.26 - 0.81 x10(9)/L 02/04/2023 10:25 PM CDT STMA Eosinophils 0.46 0.03 - 0.48 x10(9)/L 02/04/2023 10:25 PM CDT ST[facility] Basophils 0.04 0.01 - 0.08 x10(9)/L 02/04/2023 10:25 PM CDT ST[facility] Blood (Blood, Venous) 02/04/2023 10:05 PM CDT 02/04/2023 10:21 PM CDT Bishop Melgar M.D. LAB BLOOD ADD-ON [facility] [address] [place] [address], [facility] STMA [facility] [address] [place] [address] DHPM [facility] [address] [place] [address] * Lipase (02/04/2023 10:05 PM CDT) Lipase, S 48 13 - 60 U/L 02/04/2023 11:05 PM CDT DTL Blood (Blood, Venous) 02/04/2023 10:05 PM CDT 02/04/2023 10:50 PM CDT Bishop Melgar M.D. LAB BLOOD ADD-ON Performing Organization Address City/[facility]/ZIP Co de Phone Number [facility] [address] [place] [address], [facility] DTL [facility] [address] [place] [address] * (ABNORMAL) Hepatic Function Panel (02/04/2023 10:05 PM CDT) Bilirubin, Total, S 0.7 0.0 - 1.2 mg/dL 02/04/2023 11:05 PM CDT DTL Bilirubin, Direct, S <0.2 0.0 - 0.3 mg/dL 02/04/2023 11:05 PM CDT DTL Aspartate Aminotransferase (AST), S 6(L) 8 - 48 U/L 02/04/2023 11:19 PM CDT DTL Alanine Aminotransferase (ALT), S 12 7 - 55 U/L 02/04/2023 11:05 PM CDT DTL Alkaline Phosphatase, S 59 40 - 129 U/L 02/04/2023 11:05 PM CDT DTL Albumin, S 5.1(H) 3.5 - 5.0 g/dL 02/04/2023 11:05 PM CDT DTL Protein, Total, S 7.5 6.3 - 7.9 g/dL 02/04/2023 11:05 PM CDT DTL Blood (Blood, Venous) 02/04/2023 10:05 PM CDT 02/04/2023 10:50 PM CDT Bishop Melgar M.D. LAB BLOOD ADD-ON [facility] [address] [place] [address], [facility] DTL [facility] [address] [place] [address] * (ABNORMAL) Basic Metabolic Panel (02/04/2023 10:05 PM CDT) Potassium, P 5.7(H) 3.6 - 5.2 mmol/L 02/04/2023 10:42 PM CDT STMA Sodium, P 137 135 - 145 mmol/L 02/04/2023 10:42 PM CDT STMA Chloride, P 97(L) 98 - 107 mmol/L 02/04/2023 10:42 PM CDT STMA Bicarbonate, P 16(L) 22 - 29 mmol/L 02/04/2023 10:42 PM CDT STMA Anion Gap, P 24(H) 7 - 15 02/04/2023 10:42 PM CDT STMA BUN (Blood Urea Nitrogen), P 133(H) 8 - 24 mg/dL 02/04/2023 10:49 PM CDT STMA Creatinine 27.58(H) 0.74 - 1.35 mg/dL 02/04/2023 10:42 PM CDT STMA Estimated GFR (eGFR) <15(L) >=60 mL/min/BSA 02/04/2023 10:42 PM CDT STMA Comment: Estimated GFR calculated using the 2020 CKD_EPI creatinine equation. Calcium, Total, P 10.2(H) 8.6 - 10.0 mg/dL 02/04/2023 10:42 PM CDT STMA Glucose, P 87 70 - 140 mg/dL 02/04/2023 10:42 PM CDT STMA Blood (Blood, Venous) 02/04/2023 10:05 PM CDT 02/04/2023 10:21 PM CDT Bishop Melgar M.D. LAB BLOOD ADD-ON [facility] [address] [place] [address], [facility] STMA [facility] [address] [place] [address] * DX Chest AP or PA and Lateral 2 Views (02/04/2023 8:43 PM CDT) Anatomical Region Laterality Modality Chest, Thoracic RST LOS, Tho racic ARZ LOS, Thoracic FLA LOS N/A Digital Radiography 02/04/2023 9:28 PM CDT Impressions 02/05/2023 3:57 AM CDT No significant change since 10/19/2022. Prominence of the cardiac silhouette and central pulmonary vasculature. No dense consolidation, pleural effusion, or pneumothorax. Narrative 02/05/2023 3:57 AM CDT EXAM: ??DX CHEST AP OR PA AND LATERAL 2 VIEWS Procedure Note Bhavana Suh M.D. - 02/05/2023 EXAM: DX CHEST AP OR PA AND LATERAL 2 VIEWS IMPRESSION: No significant change since 10/19/2022. Prominence of the cardiacsilhouette and central pulmonary vasculature. No dense consolidation, pleural effusion,or pneumothorax. Bishop Melgar M.D. IMG DIAGNOSTIC IMAGI NG PROCEDURES * ECG 12 Lead (02/04/2023 8:22 PM CDT) Ventricular Rate ECG/Min 86 BPM MUSE MA Interval 146 ms MUSE QRSD Interval 100 ms MUSE QT Interval 376 ms MUSE QTC Interval 449 ms MUSE P [place] 68 degrees MUSE R [place] 77 degrees MUSE T Wave [place] 81 degrees MUSE 02/04/2023 8:22 PM CDT 02/04/2023 8:24 PM CDT Impressions MUSE - 02/04/2023 8:24 PM CDT Normal sinus rhythm Normal ECG When compared with ECG of 29-OCT-2022 03:05, No significant change was found Reviewed by ELENA Zimmerman Narrative Procedure Note Wil Pitt M.D. - 02/04/2023 IMPRESSION: Normal sinus rhythm Normal ECG When compared with ECG of 29-OCT-2022 03:05, No significant change was found Reviewed by ELENA Zimmerman Bishop Melgar M.D. ECG ORDERABLES MUSE NA * Haptoglobin (02/04/2023 2:36 PM CDT) Haptoglobin, S 125 30 - 200 mg/dL 02/06/2023 5:15 PM CDT [facility] Blood 02/04/2023 2:36 PM CDT 02/06/2023 2:36 PM CDT Mikey Orta M.D. LAB BLOOD ADD-ON [facility] [address] [place] [address] [facility] [place][note 2] [address] 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) Hyperkalemia Anemia Abdominal Pain documented in this encounter Admitting Diagnoses Diagnosis Hemodialysis Status (HCC) Hyperkalemia Abdominal Pain documented in this encounter Administered Medications Inactive Administered Medications - up to 3 most recent administrations Medication Order MAR Action Action Date Dose Rate Site acetaminophen tablet 1,000 mg (TYLENOL) 1,000 mg, oral, Every 8 hours, First dose (after last modification) on Diana 02/06/23 at 0930 Given 02/06/2023 5:17 PM CDT 1,000 mg albumin human 5 % injection 12.5 g 12.5 g, intravenous, Once, On Diana 02/06/23 at 0900, For 1 dose, Dialysis, If no infusion rate specified: Administer the 5% solution at 999 mL/hr or less if ICU/shock, otherwise infuse at 250 mL/hr. New Bag 02/06/2023 8:49 AM CDT 12.5 g amLODIPine tablet 10 mg (NORVASC) 10 mg, oral, Daily, First dose on Fri02/05/23 at 0900 Given 02/07/2023 8:29 AM CDT 10 mg Given 02/06/2023 11:11 AM CDT 10 mg calcium acetate(phosphat bind) capsule 1,334 mg (PHOSLO) 1,334 mg, oral, 3 times daily with meals, First dose on Fri02/05/23 at 0800, 667 mg calcium acetate contains 169 mg of elemental calcium Given 02/07/2023 12:05 PM CDT 1,334 mg Given 02/07/2023 8:29 AM CDT 1,334 mg Given 02/06/2023 5:17 PM CDT 1,334 mg calcium carbonate chewable tablet 200 mg of calcium (TUMS) 200 mg of calcium, oral, Daily PRN, heartburn, indigestion, Starting on Fri02/06/23 at 0806, Doses listed are in mg of elemental calcium. Take with food. 500 mg calcium carbonate contains 200 mg of elemental calcium. cyanocobalamin 1,000 mcg/mL injection 1,000 mcg (VITAMIN B12) 1,000 mcg, subcutaneous, Daily, First dose on Fri02/05/23 at 1615, For 7 days Given 02/07/2023 8:29 AM CDT 1,000 mcg Left Lower Abdomen Given 02/06/2023 1:56 PM CDT 1,000 mcg Ri ght Upper Arm (Back) Given 02/05/2023 5:38 PM CDT 1,000 mcg Ri ght Upper Arm (Back) droPERidoL injection 1.875 mg (INAPSINE) 1.875 mg, intravenous, Once, On Fri02/05/23 at 0159, For 1 dose Given 02/05/2023 2:00 AM CDT 1.875 mg epoetin jasmin-epbx injection 3,400 Units (RETACRIT) 3,400 Units, intravenous, Once, On Fri02/05/23 at 1000, For 1 dose, Dialysis, Via dialysis bloodline during dialysis., Indications: 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 Given 02/05/2023 10:22 AM CDT 3,400 Units heparin (porcine) 1,000 unit/mL injection - ADS Override Pull Starting on Fri02/06/23 at 0724, For 1 dose, Created by cabinet override heparin (porcine) 1,000 unit/mL injection 5,000 Units 5,000 Units, intravenous, Once in dialysis, On Fri02/05/23 at 1000, For 1 dose, Dialysis, Heparin (during dialysis) Loading dose Given 02/05/2023 10:17 AM CDT 5,000 Units heparin (porcine) 1,000 unit/mL injection 5,000 Units 5,000 Units, intravenous, Once in dialysis, On Fri02/06/23 at 0800, For 1 dose, Dialysis, Heparin (during dialysis) Loading dose Given 02/06/2023 7:46 AM CDT 5,000 Units heparin (porcine) injection 5,000 Units 5,000 Units, subcutaneous, Every 8 hours scheduled, First dose on Fri02/05/23 at 0600 Given 02/07/2023 5:20 AM CDT 5,000 Units Right Upper Arm (Back) Given 02/06/2023 10:26 PM CDT 5,000 Units Left Upper Arm (Back) Given 02/06/2023 1:56 PM CDT 5,000 Units R ight Upper Arm (Back) hydrALAZINE tablet 50 mg (APRESOLINE) 50 mg, oral, Every 8 hours scheduled, First dose on Fri02/05/23 at 0600 Given 02/05/2023 4:01 PM CDT 50 mg Given 02/05/2023 5:58 AM CDT 50 mg hydrALAZINE tablet 50 mg (APRESOLINE) 50 mg, oral, Every 8 hours scheduled, First dose (after last modification) on Fri02/05/23 at 1900, For 1 dose Given 02/05/2023 7:07 PM CDT 50 mg HYDROmorphone (PF) injection 0.2 mg (DILAUDID) 0.2 mg, intravenous, Every 1 hour PRN, severe pain or score 7-10 of 10, Starting on Fri02/06/23 at 1324, For 1 dose Given 02/06/2023 1:56 PM CDT 0.2 mg HYDROmorphone (PF) injection 0.5 mg (DILAUDID) 0.5 mg, intravenous, Once, On Fri02/04/23 at 2347, For 1 dose Given 02/05/2023 12:47 AM CDT 0.5 mg HYDROmorphone (PF) injection 0.5 mg (DILAUDID) 0.5 mg, intravenous, Every 1 hour PRN, severe pain or score 7-10 of 10, moderate pain or score 4-6 of 10, Starting on Fri02/05/23 at 0231, For 3 doses Given 02/05/2023 3:43 PM CDT 0.5 mg Given 02/05/2023 9:42 AM CDT 0.5 mg Given 02/05/2023 8:01 AM CDT 0.5 mg HYDROmorphone tablet 1 mg (DILAUDID) 1 mg, oral, Every 4 hours PRN, severe pain or score 7-10 of 10, Starting on Fri02/06/23 at 0852, For 4 doses Given 02/06/2023 9:16 AM CDT 1 mg HYDROmorphone tablet 2 mg (DILAUDID) 2 mg, oral, Every 4 hours PRN, severe pain or score 7-10 of 10, Starting on Fri02/06/23 at 1324, For 3 doses Given 02/06/2023 10:26 PM CDT 2 mg hydrOXYzine tablet 10 mg (ATARAX) 10 mg, oral, Once as needed, anxiety, Starting on Fri02/05/23 at 0500, For 1 dose Given 02/05/2023 5:55 AM CDT 10 mg iohexoL 300 mg iodine/mL solution 1-200 mL (OMNIPAQUE) 1-200 mL, intravenous, Once in imaging, contrast, Starting on Fri02/05/23 at 0058, For 1 dose, Imaging Protocol Orders, Dose per Radiant Medication Guidelines iohexoL 350 mg iodine/mL solution 1-200 mL (OMNIPAQUE) 1-200 mL, intravenous, Once in imaging, contrast, Starting on Fri02/05/23 at 0227, For 1 dose, Imaging Protocol Orders, Dose per Radiant Medication Guidelines Given 02/05/2023 2:28 AM CDT 100 mL lidocaine 5 % 1 patch (LIDODERM) 1 patch, transdermal, Administer over 12 Hours, Daily, First dose on Fri02/06/23 at 0915, Remove after 12 hours. Medication Applied 02/07/2023 8:29 AM CDT 1 patch Other Medication Applied 02/06/2023 1:58 PM CDT 1 patch Left Lower Abdomen losartan tablet 100 mg (COZAAR) 100 mg, oral, Every evening, First dose (after last modification) on Fri02/06/23 at 1345 Given 02/06/2023 2:00 PM CDT 100 mg losartan tablet 100 mg (COZAAR) 100 mg, oral, Daily, First dose (after last modification) on 02/08/23 at 0900 losartan tablet 25 mg (COZAAR) 25 mg, oral, Every evening, First dose on 02/05/23 at 1800 Given 02/05/2023 5:38 PM CDT 25 mg multivitamin renal failure 100-1 mg 1 tablet (DIALYVITE) 1 tablet, oral, Daily with dinner, First dose on Fri02/05/23 at 1700, give after dialysis on dialysis days Given 02/06/2023 5:17 PM CDT 1 tablet Given 02/05/2023 4:04 PM CDT 1 tablet NaCl 0.9 % bolus 100 mL 100 mL, intravenous, at 100 mL/hr, Administer over 1 Hours, As needed, low blood pressure, see comments, Starting on Diana 02/06/23 at 0738, For 5 doses, Dialysis, Administer as fast as possible. May repeat x 4 for a total volume of 500 mL for symptomatic hypotension during dialysis. Notify Service if symptomatic hypotension persists after blood pressure support interventions were implemented. Bolus from Bag 02/06/2023 8:45 AM CDT 250 mL 100 mL/hr naloxone injection 0.2 mg (NARCAN) 0.2 mg, intravenous, As needed, respiratory depression, Starting on Diana 02/06/23 at 0848, For RASS Score -4 or less, respiratory rate of less than 8 breaths/min. Notify provider/service and rapid response team (if available at institution). nitroglycerin (NITROSTAT) 0.4 mg SL tablet - ADS Override Pull Starting on Fri02/05/23 at 1409, For 1 dose, Created by cabinet override Dissolve under the tongue. Do NOT crush, chew, split or swallow tablet. nitroglycerin SL tablet 0.4 mg (NITROSTAT) 0.4 mg, sublingual, Every 5 min PRN, chest pain, Starting on 02/05/23 at 1407, May administer up to 3 doses per episode. Dissolve under the tongue. Do NOT crush, chew, split or swallow tablet. Given 02/05/2023 2:13 PM CDT 0.4 mg ondansetron (PF) injection 4 mg (ZOFRAN) 4 mg, intravenous, Once as needed, nausea, vomiting, Starting on Fri02/04/23 at 2017, For 1 dose, Select antiemetic if IV access obtained. Given 02/05/2023 12:47 AM CDT 4 mg pantoprazole injection 40 mg (PROTONIX) 40 mg, intravenous, Every 24 hours scheduled, First dose on Diana 02/06/23 at 0915, Administer IV push over 2 minutes. Add 10 mL NS to 40 mg vial for a final concentration of 4 mg/mL. Given 02/07/2023 8:29 AM CDT 40 mg Given 02/06/2023 1:58 PM CDT 40 mg prochlorperazine injection 5 mg (COMPAZINE) 5 mg, intravenous, Every 6 hours PRN, nausea, vomiting, Starting on Fri02/05/23 at 0833 Given 02/05/2023 9:03 PM CDT 5 mg Given 02/05/2023 8:57 AM CDT 5 mg sertraline tablet 50 mg (ZOLOFT) 50 mg, oral, Daily, First dose on Fri02/05/23 at 0900 Given 02/07/2023 8:29 AM CDT 50 mg Given 02/06/2023 1:59 PM CDT 50 mg Given 02/05/2023 4:03 PM CDT 50 mg sodium chloride (PF) 0.9 % injection 1-100 mL 1-100 mL, intravenous, Once, On Fri02/05/23 at 0228, For 1 dose, Imaging Protocol Orders Given 02/05/2023 2:28 AM CDT 50 mL sodium chloride 0.9 % flush 1-250 mL 1-250 mL, intravenous, As needed, line care, For priming and rinse back post dialysis, Starting on Fri02/05/23 at 0931, Dialysis, Dialysis order only. Given 02/05/2023 10:18 AM CDT 250 mL sodium chloride 0.9 % injection 10 mL 10 mL, intravenous, As needed, line care, Starting on Fri02/04/23 at 2017, Peripheral Intravenous Catheter and Rapid Infusion Catheter, prior to blood sampling, post blood transfusion or post blood sampling Given 02/05/2023 8:58 AM CDT 10 mL sodium chloride 0.9 % injection 3 mL 3 mL, intravenous, As needed, line care, Starting on Fri02/04/23 at 2017, Prior to and following infusion and between multiple consecutive infusions: sodium chloride 0.9 % injection sodium chloride 0.9 % injection 3 mL 3 mL, intravenous, Every 12 hours scheduled, First dose on Fri02/04/23 at 2100, Peripheral Intravenous Catheter and Rapid Infusion Catheter, when no infusion to maintain patency Given 02/07/2023 8:39 AM CDT 3 mL Given 02/05/2023 9:00 PM CDT 3 mL Given 02/05/2023 8:01 AM CDT 3 mL sucralfate suspension 1 g (CARAFATE) 1 g, oral, 2 times daily, First dose on Fri02/05/23 at 2200 Given 02/06/2023 10:26 PM CDT 1 g Given 02/06/2023 1:59 PM CDT 1 g Given 02/06/2023 12:34 AM CDT 1 g torsemide tablet 100 mg (DEMADEX) 100 mg, oral, 2 times daily, First dose on Fri02/05/23 at 0900 Given 02/06/2023 1:59 PM CDT 100 mg Given 02/05/2023 9:03 PM CDT 100 mg torsemide tablet 100 mg (DEMADEX) 100 mg, oral, 2 times daily, First dose (after last modification) on Fri02/07/23 at 0900 Given 02/07/2023 8:29 AM CDT 100 mg traZODone tablet 50 mg (DESYREL) 50 mg, oral, Daily at bedtime, First dose on Fri02/05/23 at 2100 Given 02/06/2023 10:26 PM CDT 50 mg Given 02/05/2023 9:03 PM CDT 50 mg documented in this encounter Active and Recently Administered Medications Times are shown in CDT. Scheduled Medication Order 02/05/2023 02/06/2023 02/07/2023 acetaminophen tablet 1,000 mg (TYLENOL) 1,000 mg, oral, Every 8 hours, First dose (after last modification) on Fri02/06/23 at 0930 1111 (Not Given - Provider: Renuka Ibrahim R.N. - Reason: Patient not available)1717 (Given - Provider: Renuka Ibrahim R.N.) 0033 (Not Given - Provider: Noemy OrdonezNJuan C - Reason: Patient/family refused)0845 (Not Given - Provider: Sarahi Hicks R.N. - Reason: Patient/family refused) albumin human 5 % injection 12.5 g (COMPLETED) 12.5 g, intravenous, Once, On Diana 02/06/23 at 0900, For 1 dose, Dialysis, If no infusion rate specified: Administer the 5% solution at 999 mL/hr or less if ICU/shock, otherwise infuse at 250 mL/hr. 0849 (New Bag - Provider: Verito Nicolas RJuan CNJuan C) amLODIPine tablet 10 mg (NORVASC) 10 mg, oral, Daily, First dose on Fri02/05/23 at 0900 1605 (Not Given - Provider: Renuka Ibrahim R.N. - Reason: Patient not available - Comment: dialysis) 1111 (Given - Provider: Noemy ClancyNJuan C) 0829 (Given - Provider: Noemy GuNJuan C) calcium acetate(phosphat bind) capsule 1,334 mg (PHOSLO) 1,334 mg, oral, 3 times daily with meals, First dose on Fri02/05/23 at 0800, 667 mg calcium acetate contains 169 mg of elemental calcium 0801 (Given - Provider: Noemy ElliottNJuan C)1550 (Not Given - Provider: Renuka Ibrahim R.N. - Reason: Patient not available - Comment: at dialysis)1603 (Given - Provider: Renuka Ibrahim R.N.) 1111 (Not Given - Provider: Renuka Ibrahim RJuan CN. - Reason: Patient not available)1400 (Given - Provider: Noemy ElliottN. - Comment: pt off unit, rescheduled)1717 (Given - Provider: Renuka Ibrahim R.N.) 0829 (Given - Provider: Sarahi Hicks RJuan CN.)1205 (Given - Provider: Noemy GuN.) cyanocobalamin 1,000 mcg/mL injection 1,000 mcg (VITAMIN B12) 1,000 mcg, subcutaneous, Daily, First dose on Fri02/05/23 at 1615, For 7 days 1738 (Given - Provider: Renuka Ibrahim RJuan CN.) 1356 (Given - Provider: Renuka Ibrahim R.N. 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 1022 (Given - Provider: Lei Carpio R.N.) heparin (porcine) 1,000 unit/mL injection 5,000 Units (COMPLETED) 5,000 Units, intravenous, Once in dialysis, On Fri02/05/23 at 1000, For 1 dose, Dialysis, Heparin (during dialysis) Loading dose 1017 (Given - Provider: Lei Carpio RJuan CN.) heparin (porcine) 1,000 unit/mL injection 5,000 Units (CANCELED) 5,000 Units, intravenous, Once in dialysis, On Diana 02/06/23 at 0800, For 1 dose, Dialysis, Heparin (during dialysis) Loading dose 0746 (Given - Provider: Verito Nicolas RJuan CN.) heparin (porcine) injection 5,000 Units 5,000 Units, subcutaneous, Every 8 hours scheduled, First dose on Fri02/05/23 at 0600 0555 (Given - Provider: Paulette Miles RJuan CN.)1600 (Given - Provider: Renuka Ibrahim RGilberto.)2114 (Given - Provider: Kylah Alfredo R.N.) 0550 (Given - Provider: Kylah Alfredo R.N.)1356 (Given - Provider: Noemy ElliottN.)2226 (Given - Provider: Carla Murray R.N.) 0520 (Given - Provider: Carla Murray R.N.)1400 (Due) hydrALAZINE tablet 50 mg (APRESOLINE) (CANCELED) 50 mg, oral, Every 8 hours scheduled, First dose on Fri02/05/23 at 0600 0558 (Given - Provider: Paulette Miles R.N.)1601 (Given - Provider: Renuka Ibrahim R.N.) hydrALAZINE tablet 50 mg (APRESOLINE) (COMPLETED) 50 mg, oral, Every 8 hours scheduled, First dose (after last modification) on Fri02/05/23 at 1900, For 1 dose 1907 (Given - Provider: Renuka Ibrahim R.N.) HYDROmorphone (PF) injection 0.5 mg (DILAUDID) (COMPLETED) 0.5 mg, intravenous, Once, On Fri02/04/23 at 2347, For 1 dose 0047 (Given - Provider: Shell Salcido R.N.) lidocaine 5 % 1 patch (LIDODERM) 1 patch, transdermal, Administer over 12 Hours, Daily, First dose on Fri02/06/23 at 0915, Remove after 12 hours. 1358 (Medication Applied - Provider: Renuka Ibrahim R.N. - Comment: Retimed, pt off unit) 0150 (Medication Removed - Provider: Carla Murray R.N.)0829 (Medication Applied - Provider: Sarahi Hicks R.N.)1440 (Due: Medication Removed - Provider: Discharge Provider, Automatic - Comment: Time automatically adjusted from order being discontinued) losartan tablet 100 mg (COZAAR) (CANCELED) 100 mg, oral, Every evening, First dose (after last modification) on Diana 02/06/23 at 1345 1400 (Given - Provider: Renuka Ibrahim R.N.) losartan tablet 100 mg (COZAAR) 100 mg, oral, Daily, First dose (after last modification) on Fri02/08/23 at 0900 losartan tablet 25 mg (COZAAR) (CANCELED) 25 mg, oral, Every evening, First dose on Fri02/05/23 at 1800 1738 (Given - Provider: Renuka Ibrahim R.N. - Comment: bp 180/98) multivitamin renal failure 100-1 mg 1 tablet (DIALYVITE) 1 tablet, oral, Daily with dinner, First dose on Fri02/05/23 at 1700, give after dialysis on dialysis days 1604 (Given - Provider: Renuka Ibrahim R.N.) 1717 (Given - Provider: Renuka Ibrahim R.N.) pantoprazole injection 40 mg (PROTONIX) 40 mg, intravenous, Every 24 hours scheduled, First dose on Fri02/06/23 at 0915, Administer IV push over 2 minutes. Add 10 mL NS to 40 mg vial for a final concentration of 4 mg/mL. 1358 (Given - Provider: Renuka Ibrahim R.N. - Comment: pt off unit, rescheduled) 0829 (Given - Provider: Sarahi Hicks R.N.) sertraline tablet 50 mg (ZOLOFT) 50 mg, oral, Daily, First dose on Fri02/05/23 at 0900 1603 (Given - Provider: Renuka Ibrahim R.N.) 1359 (Given - Provider: Renuka Ibrahim R.N. - Comment: pt off unit, rescheduled) 0829 (Given - Provider: Sarahi Hicks R.N.) sodium chloride (PF) 0.9 % injection 1-100 mL 1-100 mL, intravenous, Once, On Fri02/05/23 at 0059, For 1 dose, Imaging Protocol Orders 0104 (Not Given - Provider: Oneyda Shepard M.P.H., R.N. - Reason: Patient/family refused) sodium chloride (PF) 0.9 % injection 1-100 mL (COMPLETED) 1-100 mL, intravenous, Once, On Fri02/05/23 at 0228, For 1 dose, Imaging Protocol Orders 0228 (Given - Provider: Noemy HassanNJuan C) sodium chloride 0.9 % injection 3 mL 3 mL, intravenous, Every 12 hours scheduled, First dose on Fri02/04/23 at 2100, Peripheral Intravenous Catheter and Rapid Infusion Catheter, when no infusion to maintain patency 0103 (Not Given - Provider: Shell R Loly, R.N. - Reason: Other)0801 (Given - Provider: Renuka Ibrahim R.N.)2100 (Given - Provider: Kylah Alfredo R.N.) 1113 (Not Given - Provider: Renuka Ibrahim R.N. - Reason: Patient not available)2236 (Not Given - Provider: Carla Murray R.N. - Reason: Other) 0839 (Given - Provider: Sarahi Hicks R.N.) sucralfate suspension 1 g (CARAFATE) 1 g, oral, 2 times daily, First dose on Fri02/05/23 at 2200 0034 (Given - Provider: Kylah Alfredo R.N.)1113 (Not Given - Provider: Renuka Ibrahim R.N. - Reason: Patient not available)1359 (Given - Provider: Renuka Ibrahim R.N. - Comment: pt missed morning dose off unit)2226 (Given - Provider: Carla Murray R.N.) 0829 (Not Given - Provider: Noemy GuNJuan C - Reason: Patient/family refused) torsemide tablet 100 mg (DEMADEX) (CANCELED) 100 mg, oral, 2 times daily, First dose on Fri02/05/23 at 0900 1605 (Not Given - Provider: Renuka Ibrahim R.N. - Reason: Patient not available - Comment: dialysis)210 (Given - Provider: Kylah Alfredo R.N.) 1112 (Not Given - Provider: Renuka Ibrahim R.N. - Reason: Patient not available)1359 (Given - Provider: Renuka Ibrahim R.N. - Comment: Med 6 requested am dose to be adminstered) torsemide tablet 100 mg (DEMADEX) 100 mg, oral, 2 times daily, First dose (after last modification) on Fri02/07/23 at 0900 0829 (Given - Provider: Sarahi Hicks RJuan CNJuan C) traZODone tablet 50 mg (DESYREL) 50 mg, oral, Daily at bedtime, First dose on Fri02/05/23 at 2100 2103 (Given - Provider: Kylah Alfredo R.N.) 2226 (Given - Provider: Carla Murray R.N.) PRN Medication Order 02/05/2023 02/06/2023 02/07/2023 calcium carbonate chewable tablet 200 mg of calcium (TUMS) 200 mg of calcium, oral, Daily PRN, heartburn, indigestion, Starting on Fri02/06/23 at 0806, Doses listed are in mg of elemental calcium. Take with food. 500 mg calcium carbonate contains 200 mg of elemental calcium. HYDROmorphone (PF) injection 0.2 mg (DILAUDID) (COMPLETED) 0.2 mg, intravenous, Every 1 hour PRN, severe pain or score 7-10 of 10, Starting on Fri02/06/23 at 1324, For 1 dose 1356 (Given - Provider: Renuka Ibrahim R.N.) HYDROmorphone (PF) injection 0.5 mg (DILAUDID) (COMPLETED) 0.5 mg, intravenous, Every 1 hour PRN, severe pain or score 7-10 of 10, moderate pain or score 4-6 of 10, Starting on Fri02/05/23 at 0231, For 3 doses 0801 (Given - Provider: Renuka Ibrahim R.N.)0942 (Given - Provider: Xochitl Hopkins R.N.)1543 (Given - Provider: Renuka Ibrahim R.N.) HYDROmorphone tablet 1 mg (DILAUDID) (CANCELED) 1 mg, oral, Every 4 hours PRN, severe pain or score 7-10 of 10, Starting on Fri02/06/23 at 0852, For 4 doses 0916 (Given - Provider: Verito Nicolas R.N.) HYDROmorphone tablet 2 mg (DILAUDID) 2 mg, oral, Every 4 hours PRN, severe pain or score 7-10 of 10, Starting on Fri02/06/23 at 1324, For 3 doses 2226 (Given - Provider: Carla Murray R.N.) hydrOXYzine tablet 10 mg (ATARAX) (COMPLETED) 10 mg, oral, Once as needed, anxiety, Starting on Fri02/05/23 at 0500, For 1 dose 0555 (Given - Provider: Paulette Miles RJuan CN.) iohexoL 300 mg iodine/mL solution 1-200 mL (OMNIPAQUE) 1-200 mL, intravenous, Once in imaging, contrast, Starting on Fri02/05/23 at 0058, For 1 dose, Imaging Protocol Orders, Dose per Radiant Medication Guidelines 0104 (Not Given - Provider: Oneyda Shepard M.P.H., R.N. - Reason: Patient/family refused) iohexoL 350 mg iodine/mL solution 1-200 mL (OMNIPAQUE) (COMPLETED) 1-200 mL, intravenous, Once in imaging, contrast, Starting on Fri02/05/23 at 0227, For 1 dose, Imaging Protocol Orders, Dose per [facility] Medication Guidelines 0228 (Given - Provider: Raffaele Conklin R.N.) NaCl 0.9 % bolus 100 mL (CANCELED) 100 mL, intravenous, at 100 mL/hr, Administer over 1 Hours, As needed, low blood pressure, see comments, Starting on Diana 02/06/23 at 0738, For 5 doses, Dialysis, Administer as fast as possible. May repeat x 4 for a total volume of 500 mL for symptomatic hypotension during dialysis. Notify Service if symptomatic hypotension persists after blood pressure support interventions were implemented. 0845 (Bolus from Bag - Provider: Verito Nicolas R.N. - Comment: per provider order at the start of DLS [place]) naloxone injection 0.2 mg (NARCAN) 0.2 mg, intravenous, As needed, respiratory depression, Starting on Diana 02/06/23 at 0848, For RASS Score -4 or less, respiratory rate of less than 8 breaths/min. Notify provider/service and rapid response team (if available at institution). nitroglycerin SL tablet 0.4 mg (NITROSTAT) 0.4 mg, sublingual, Every 5 min PRN, chest pain, Starting on Fri02/05/23 at 1407, May administer up to 3 doses per episode. Dissolve under the tongue. Do NOT crush, chew, split or swallow tablet. 1413 (Given - Provider: Jack Vargas R.N.) ondansetron (PF) injection 4 mg (ZOFRAN) (COMPLETED)(Linked Group 1) 4 mg, intravenous, Once as needed, nausea, vomiting, Starting on Fri02/04/23 at 2016, For 1 dose, Select antiemetic if IV access obtained. 0047 (Given - Provider: Shell Salcido RJuan CN.) prochlorperazine injection 5 mg (COMPAZINE) 5 mg, intravenous, Every 6 hours PRN, nausea, vomiting, Starting on Fri02/05/23 at 0833 0857 (Given - Provider: Gurpreet Calderón RPenny)2103 (Given - Provider: Kylah Alfredo RJuan CNJuan C) sodium chloride 0.9 % flush 1-250 mL (CANCELED) 1-250 mL, intravenous, As needed, line care, For priming and rinse back post dialysis, Starting on Fri02/05/23 at 0931, Dialysis, Dialysis order only. 1018 (Given - Provider: Lei Carpio RJuan CNJuan C) sodium chloride 0.9 % injection 10 mL 10 mL, intravenous, As needed, line care, Starting on Fri02/04/23 at 2016, Peripheral Intravenous Catheter and Rapid Infusion Catheter, prior to blood sampling, post blood transfusion or post blood sampling 0858 (Given - Provider: Gurpreet Calderón RJuan CNJuan C) sodium chloride 0.9 % injection 3 mL 3 mL, intravenous, As needed, line care, Starting on Fri02/04/23 at 2016, Prior to and following infusion and between multiple consecutive infusions: sodium chloride 0.9 % injection Linked Groups Order Group 1: ondansetron ODT disintegrating tablet 4 mg (ZOFRAN-ODT) (COMPLETED) 4 mg, oral, Once as needed, nausea, vomiting, Starting on Fri02/04/23 at 2016, For 1 dose, Select antiemetic if no IV access. When splitting ODT at bedside, handle with gloves and a pill splitter to prevent moisture contact. Or ondansetron (PF) injection 4 mg (ZOFRAN) (COMPLETED)Jump to med 4 mg, intravenous, Once as needed, nausea, vomiting, Starting on Fri02/04/23 at 2016, For 1 dose, Select antiemetic if IV access obtained. documented in this encounter Additional Health Concerns Infection Onset Date Last Indicated Resolved Time COVID19 Pending 02/05/2023 02/05/202302/05/2023 2 :12 PM CDT documented as of this encounter Care Teams Nnp Relationship Specialty Start Date End Date Elsewhere, Pcp PCP - General Internal Medicine 02/04/23 documented as of this encounter
--- OUTSIDE RECORDS SUMMARY | 2023-05-08 16:24 | XMS_ITS | Encounter Summary ---
Author Name Unknown Organization [facility] Address [address] [place] [address] Care Team Providers Care Fire Alarm Installer Name Role Phone Elsewhere, Pcp Primary Care Provider Unavailabl e Encounter Details Date Type Department Care Team (Late st Contact Info) Description 03/04/2023 Orders Only Division of Nephrology and Hypertension, [facility], in [place], [place] [address] [place] [address] rDew Mo, HALLE, C.N.P., M.S.N. [address] [place] [address] Social History Tobacco Use Types Packs/Day Years [...] your living situation today? I have a [facility] place to live 11/14/2022 Sex and Gender Information Value Date Recorded Sex Assigned at Male 11/14/2022 11:03 AM CDT Gender Identity Male 11/14/2022 11:03 AM CDT Sexual Orientation Straight 11/14/2022 11 :03 AM CDT documented as of this encounter Plan of Treatment Not on file documented as of this encounter Visit Diagnoses Not on filedocumented in this encounter Care Teams Fire Alarm Installer Relationship Specialty Start Date End Date Elsewhere, Pcp PCP - General Internal Medicine 02/04/23 documented as of this encounter
--- OUTSIDE RECORDS SUMMARY | 2023-05-08 16:24 | XMS_ITS | Encounter Summary ---
Author Name Unknown Organization [facility] Address [address] [place] [address] Care Team Providers Care Pig Machine Operator Name Role Phone Elsewhere, Pcp Primary Care Provider Unavailabl e Encounter Details Date Type Department Care Team (Late st Contact Info) Description 02/19/2023 Orders Only Division of Nephrology and Hypertension, [facility], in [place], [place] [address] [place] [address] Drew Mo, HALLE, C.N.P., M.S.N. [address] [place] [address] Social History Tobacco Use Types Packs/Day Years [...] living situation today? I have a [facility] place to live 11/14/2022 Sex and Gender Information Value Date Recorded Sex Assigned at Male 11/14/2022 11:03 AM CDT Gender Identity Male 11/14/2022 11:03 AM CDT Sexual Orientation Straight 11/14/2022 11 :03 AM CDT documented as of this encounter Plan of Treatment Not on file documented as of this encounter Visit Diagnoses Not on filedocumented in this encounter Care Teams Pig Machine Operator Relationship Specialty Start Date End Date Elsewhere, Pcp PCP - General Internal Medicine 02/04/23 documented as of this encounter
--- OUTSIDE RECORDS SUMMARY | 2023-05-08 16:24 | XMS_ITS | Encounter Summary ---
Author Name Unknown Organization [facility] Address [address] [place] [address] Care Team Providers Care Ventilating Engineer Name Role Phone Elsewhere, Pcp Primary Care Provider Unavailabl e Encounter Details Date Type Department Care Team (Late st Contact Info) Description 02/24/2023 Orders Only Division of Nephrology and Hypertension, [facility], in [place], [place] [address] [place] [address] Drew Mo, HALLE, C.N.P., M.S.N. [address] [place] [address] Social History Tobacco Use Types Packs/Day Years [...] your living situation today? I have a [facility] place to live 11/14/2022 Sex and Gender Information Value Date Recorded Sex Assigned at Male 11/14/2022 11:03 AM CDT Gender Identity Male 11/14/2022 11:03 AM CDT Sexual Orientation Straight 11/14/2022 11 :03 AM CDT documented as of this encounter Plan of Treatment Not on file documented as of this encounter Visit Diagnoses Not on filedocumented in this encounter Care Teams Ventilating Engineer Relationship Specialty Start Date End Date Elsewhere, Pcp PCP - General Internal Medicine 02/04/23 documented as of this encounter
--- OUTSIDE RECORDS SUMMARY | 2023-05-08 16:24 | XMS_ITS | Encounter Summary ---
Author Name Unknown Organization [facility] Address [address] [place] [address] Care Team Providers Care Jewel Supervisor Name Role Phone None Reported, Pcp Primary Care Provider Unavail able Encounter Details Date Type Department Care Team ([facility] st Contact Info) Description 01/17/2023 Orders Only Division of Nephrology and Hypertension in [place], [place] [address] [place] [address] Concetta Mejía M.D., Ph.D. [address] [place] [address] Social History Tobacco Use Types Packs/Day Years [...] your living situation today? I have a [facility] place to live 11/14/2022 Sex and Gender Information Value Date Recorded Sex Assigned at Male 11/14/2022 11:03 AM CDT Gender Identity Male 11/14/2022 11:03 AM CDT Sexual Orientation Straight 11/14/2022 11 :03 AM CDT documented as of this encounter Plan of Treatment Not on file documented as of this encounter Visit Diagnoses Not on filedocumented in this encounter Care Teams Jewel Supervisor Relationship Specialty Start Date End Date None Reported, Pcp PCP - General Family Medicine 07/28/22 02/03/23 documented as of this encounter
--- OUTSIDE RECORDS SUMMARY | 2023-05-08 16:24 | XMS_ITS | Encounter Summary ---
Author Name Unknown Organization [facility] Address [address] [place] [address] Care Team Providers Care Nike Athlete Name Role Phone Elsewhere, Pcp Primary Care Provider Unavailabl e Encounter Details Date Type Department Care Team (Late st Contact Info) Description 01/27/2023 Orders Only Division of Nephrology and Hypertension, [facility], in [place], [place] [address] [place] [address] Drew Mo, HALLE, C.N.P., M.S.N. [address] [place] [address] Social History Tobacco Use Types Packs/Day Years [...] your living situation today? I have a [facility] place to live 11/14/2022 Sex and Gender Information Value Date Recorded Sex Assigned at Male 11/14/2022 11:03 AM CDT Gender Identity Male 11/14/2022 11:03 AM CDT Sexual Orientation Straight 11/14/2022 11 :03 AM CDT documented as of this encounter Plan of Treatment Not on file documented as of this encounter Visit Diagnoses Not on filedocumented in this encounter Additional Health Concerns Infection Onset Date Last Indicated Resolved Time COVID19 Pending 02/05/2023 02/05/2023 02/05/2023 2 :12 PM CDT documented as of this encounter Care Teams Nike Athlete Relationship Specialty Start Date End Date Elsewhere, Pcp PCP - General Internal Medicine 02/04/23 documented as of this encounter
[2023-05-08] MEDS: ONDANSETRON 2 MG/ML inj 4 MG IVP (16:25)
--- OUTSIDE RECORDS SUMMARY | 2023-05-08 16:25 | XMS_ITS | Encounter Summary ---
Author Name Unknown Organization [facility] Address [address] [place] [address] Care Team Providers Care Furnace Clerk Name Role Phone None Reported, Pcp Primary Care Provider Unavail able Encounter Details Date Type Department Care Team ([facility] st Contact Info) Description 11/12/2022 Orders Only Division of Nephrology and Hypertension in [place], [place] [address] [place] [address] Concetta Mejía M.D., Ph.D. [address] [place] [address] Social History Tobacco Use Types Packs/Day Years Used Date Smoking Tobacco: Never Passive Smoke Exposure: Never Smokeless Tobacco: Never Alcohol Use Standard Drinks/Week Comments Never 0 (1 standard drink = 0.6 oz pur e alcohol) Humiliation, Afraid, Rape, and Kick questionnair e Answer Date Recorded Within the last year, have y ou been afraid of your partner or ex-partner? No 11/02/2022 Within the last year, have y ou been humiliated or emotionally abused in other ways by your partner or ex-partner? No Within the last year, have y ou been kicked, hit, slapped, or otherwise physically hurt by your partner or ex-partner? No 11/02/2022 Within the last year, have y ou been raped or forced to have any kind of sexual activity by your partner or ex-partner? No 11/02/2022 Overall Financial Resource Strain (CARDIA) Answe r Date Recorded How hard is it for you to pa y for the very basics like food, housing, medical care, and heating? Hard 11/02/2022 Exercise Vital Sign Answer Date Recorde d [...] you got the money to buy more. Often true 11/03/19 23 Within the past 12 months, t he food you bought just didn't last and you didn't have money to get more. Often true 11/02/2022 PRAPARE - Transportation Answer Date Re corded In the past 12 months, has l ack of transportation kept you from medical appointments or from getting medications? Yes 11/2022 In the past 12 months, has l ack of transportation kept you from meetings, work, or from getting things needed for daily living? Yes 11/02/2022 Nutrition Answer Date Recorded Nutrition: EVOO Fat [...] your living situation today? I have a [facility] place to live 11/02/2022 Sex and Gender Information Value Date Recorded Sex Assigned at Male 11/14/2022 11:03 AM CDT Gender Identity Male 11/14/2022 11:03 AM CDT Sexual Orientation Straight 11/14/2022 11 :03 AM CDT documented as of this encounter Plan of Treatment Not on file documented as of this encounter Visit Diagnoses Not on filedocumented in this encounter Care Teams Furnace Clerk Relationship Specialty Start Date End Date None Reported, Pcp PCP - General Family Medicine 07/28/22 02/03/23 documented as of this encounter
--- OUTSIDE RECORDS SUMMARY | 2023-05-08 16:25 | XMS_ITS | Encounter Summary ---
Author Name Unknown Organization [facility] Address [address] [place] [address] Care Team Providers Care Airplane Navigator Name Role Phone None Reported, Pcp Primary Care Provider Unavail able Reason for Visit * Outpatient (Routine) - Authorized Specialty Diagnoses / Procedures Referred By Mel t Referred To Contact Diagnoses Pain Chest Procedures NM Cardiac Perfusion Rest and Stress SPECT Drew Mo APRN C.N.P., M.S.N. [address] [place] [address] [phone] [facility] Region Referral ID Status Reason Start Date Expiration Date V isits Requested Visits Authorized [id number] Authorized 07/11/2022 07/11/2023 6 6 Encounter Details Date Type Department Care Team (Latest Contact Info) Description 11/04/2022 9:47 AM CDT - 11/04/2022 11:59 PM CDT Hospital Encounter Department of Cardiovascular Diseases in [place], [place] [address] [place] [phone] Drew Mo APRN, C.N.P., M.S.N. [address] [place] [phone] Discharge Disposition: Home or Self Care Social [...] your living situation today? I have a [facility] place to live 11/02/2022 Sex and Gender Information Value Date Recorded Sex Assigned at Male 11/14/2022 11:03 AM CDT Gender Identity Male 11/14/2022 11:03 AM CDT Sexual Orientation Straight 11/14/2022 11 :03 AM CDT documented as of this encounter Last Filed Vital Signs Vital Sign Reading Time Taken Comments Blood Pressure 172/94 11/04/2022 10:06 AM CDT Pulse - - Temperature - - Respiratory Rate - - Oxygen Saturation 98% 11/04/2022 10:06 AM CDT Inhaled Oxygen Concentration - - Weight - - Height - - Body Mass Index - - documented in this encounter Medications at Time of Discharge Medication Sig Dispensed Refills Start Date End Date calcium acetate,phosphat bind, (ELIPHOS) 667 mg (169 mg calcium) tablet Take 1,334 mg by mouth 3 (three) times a day with meals. 0 amLODIPine (NORVASC) 10 mg tablet Take 1 tablet (10 mg total) by mouth daily. 90 tablet 3 10/15/2022 01/14/2023 benazepriL (LOTENSIN) 20 mg tablet Take 1 tablet (20 mg total) by mouth 2 (two) times a day. 180 tablet 3 10/15/2022 02/05/2023 carvedilol (COREG) 0.7813 mg tablet Take 12.5 mg by mouth. 0 04/03/2022 11/12/2022 hydrALAZINE (APRESOLINE) 50 mg tablet Take 1 tablet (50 mg total) by mouth 2 (two) times a day. 180 tablet 3 05/07/2022 12/17/2022 minoxidiL (LONITEN) 10 mg tablet Take 1 tablet (10 mg total) by mouth daily. 90 tablet 3 10/15/2022 11/12/2022 omeprazole (PriLOSEC) [address] capsule Take 1 capsule (40 mg total) by mouth every morning before breakfast. 90 capsule 3 10/15/2022 02/05/2023 rOPINIRole (REQUIP) 0.5 mg tablet Take 0.5 mg by mouth 3 (three) times a day. Not taking 0 10/21/2022 02/05/2023 torsemide (DEMADEX) 100 mg tablet Take 1 tablet (100 mg total) by mouth daily. 90 tablet 3 10/31/2022 01/17/2023 traMADoL (ULTRAM) 50 mg tablet Take 25 mg by mouth every 8 (eight) hours as needed for pain. 0 11/14/2022 documented as of this encounter Plan of Treatment Not on file documented as of this encounter Procedures Procedure Name Priority Date/Time Associated Diagnosis Comments NM CARDIAC PERFUSION REST AND STRESS SPECT RAD - Routine (most inpatients and all outpatients) 11/04/2022 11:46 AM CDT Pain Chest documented in this encounter Visit Diagnoses Not on filedocumented in this encounter Administered Medications Inactive Administered Medications - up to 3 most recent administrations Medication Order MAR Action Action Date Dose Rate Site regadenoson injection 0.4 mg (LEXISCAN) 0.4 mg, intravenous, Once, On 11/04/22 at 1015, For 1 dose, Intraprocedure - Diagnostic, See protocol Administer via rapid IV injection (approximately 10 seconds). Given 11/04/2022 10:14 AM CDT 0.4 mg Right Hand documented in this encounter Care Teams Airplane Navigator Relationship Specialty Start Date End Date None Reported, Pcp PCP - General Family Medicine 07/28/22 02/03/23 documented as of this encounter
--- OUTSIDE RECORDS SUMMARY | 2023-05-08 16:25 | XMS_ITS | Encounter Summary ---
Author Name Unknown Organization [facility] Address [address] [place] [address] Care Team Providers Care Track Repair Person Name Role Phone None Reported, Pcp Primary Care Provider Unavail able Encounter Details Date Type Department Care Team ([facility] st Contact Info) Description 12/17/2022 Orders Only Division of Nephrology and Hypertension, [facility], in [place], [place] [address] [place] [address] Drew Mo, HALLE, C.N.P., M.S.N. [address] [place] [address] Social History Tobacco Use Types Packs/Day Years [...] your living situation today? I have a [facility] place to live 11/14/2022 Sex and Gender Information Value Date Recorded Sex Assigned at Male 11/14/2022 11:03 AM CDT Gender Identity Male 11/14/2022 11:03 AM CDT Sexual Orientation Straight 11/14/2022 11 :03 AM CDT documented as of this encounter Plan of Treatment Not on file documented as of this encounter Visit Diagnoses Not on filedocumented in this encounter Care Teams Track Repair Person Relationship Specialty Start Date End Date None Reported, Pcp PCP - General Family Medicine 07/28/22 02/03/23 documented as of this encounter
--- OUTSIDE RECORDS SUMMARY | 2023-05-08 16:25 | XMS_ITS | Encounter Summary ---
Author Name Unknown Organization [facility] Address [address] [place] [address] Care Team Providers Care Court Commissioner Name Role Phone None Reported, Pcp Primary Care Provider Unavail able Encounter Details Date Type Department Care Team ([facility] st Contact Info) Description 01/16/2023 Orders Only Division of Nephrology and Hypertension in [place], [place] [address] [place] [address] Concetta Mejía M.D., Ph.D. [address] [place] [address] Social History Tobacco Use Types Packs/Day Years [...] your living situation today? I have a [facility] place to live 11/14/2022 Sex and Gender Information Value Date Recorded Sex Assigned at Male 11/14/2022 11:03 AM CDT Gender Identity Male 11/14/2022 11:03 AM CDT Sexual Orientation Straight 11/14/2022 11 :03 AM CDT documented as of this encounter Plan of Treatment Not on file documented as of this encounter Visit Diagnoses Not on filedocumented in this encounter Care Teams Court Commissioner Relationship Specialty Start Date End Date None Reported, Pcp PCP - General Family Medicine 07/28/22 02/03/23 documented as of this encounter
--- OUTSIDE RECORDS SUMMARY | 2023-05-08 16:25 | XMS_ITS | Encounter Summary ---
Author Name Unknown Organization [facility] Address [address] [place] [address] Care Team Providers Care Railway Switchman Name Role Phone None Reported, Pcp Primary Care Provider Unavail able Encounter Details Date Type Department Care Team ([facility] st Contact Info) Description 01/14/2023 Orders Only Division of Nephrology and Hypertension in [place], [place] [address] [place] [address] Concetta Mejía M.D., Ph.D. [address] [place] [phone] Social History Tobacco Use Types Packs/Day Years [...] your living situation today? I have a [facility] place to live 11/14/2022 Sex and Gender Information Value Date Recorded Sex Assigned at Male 11/14/2022 11:03 AM CDT Gender Identity Male 11/14/2022 11:03 AM CDT Sexual Orientation Straight 11/14/2022 11 :03 AM CDT documented as of this encounter Plan of Treatment Not on file documented as of this encounter Visit Diagnoses Not on filedocumented in this encounter Care Teams Railway Switchman Relationship Specialty Start Date End Date None Reported, Pcp PCP - General Family Medicine 07/28/22 02/03/23 documented as of this encounter
--- OUTSIDE RECORDS SUMMARY | 2023-05-08 16:25 | XMS_ITS | Encounter Summary ---
Author Name Unknown Organization [facility] Address [address] [place] [address] Care Team Providers Care Weatherseal Technician Name Role Phone None Reported, Pcp Primary Care Provider Unavail able Reason for Referral * Outpatient (Routine) - Closed Specialty Diagnoses / Procedures Referred By Mel quiroz Referred To Contact Neurology Diagnoses Spells Undifferentiated Procedures EEG routine - awake and sleep Sundeep Barlow M.D. [address] [place] [address] [facility] Referral ID Status Reason Start Date Expiration Date Visits Re quested Visits Authorized [id number] Closed 10/29/2022 10/29/2023 1 1 Reason for Visit * Outpatient (Routine) - Closed Specialty Diagnoses / Procedures Referred By Mel quiroz Referred To Contact Neurology Diagnoses Spells Undifferentiated Procedures EEG routine - awake and sleep Sundeep Barlow M.D. [address] [place] [address] [facility] Referral ID Status Reason Start Date Expiration Date Visits Re quested Visits Authorized [id number] Closed 10/29/2022 10/29/2023 1 1 Encounter Details Date Type Department Care Team (Latest Contact Info) Description 11/20/2022 1:42 PM CDT - 11/20/2022 11:59 PM CDT Hospital Encounter Department of Neurology in [place], [place] [address] [place] [phone] Sundeep Barlow M.D. [address] [place] [address] Franciscolls Undifferentiated Discharge Disposition: Home or Self Care Social [...] your living situation today? I have a [facility] place to live 11/14/2022 Sex and Gender Information Value Date Recorded Sex Assigned at Male 11/14/2022 11:03 AM CDT Gender Identity Male 11/14/2022 11:03 AM CDT Sexual Orientation Straight 11/14/2022 11 :03 AM CDT documented as of this encounter Medications at Time of Discharge Medication Sig Dispensed Refills Start Date End Date calcium acetate,phosphat bind, (ELIPHOS) 667 mg (169 mg calcium) tablet Take 1,334 mg by mouth 3 (three) times a day with meals. 0 albuterol 90 mcg/actuation inhaler Inhale 2 puffs [...] a day. 180 tablet 3 10/15/2022 02/05/2023 cloNIDine (CATAPRES-TTS) 0.1 mg/[address] 1 patch on the skin once a week. 12 patch 3 11/12/2022 12/10/2022 hydrALAZINE (APRESOLINE) 50 mg tablet Take 1 tablet (50 mg total) by mouth 2 (two) times a day. 180 tablet 3 05/07/2022 12/17/2022 omeprazole (PriLOSEC) [address] capsule Take 1 capsule (40 mg total) by mouth every morning before breakfast. 90 capsule 3 10/15/2022 02/05/2023 rOPINIRole (REQUIP) 0.5 mg tablet Take 0.5 mg by mouth 3 (three) times a day. Not taking 0 10/21/2022 02/05/2023 torsemide (DEMADEX) 100 mg tablet Take 1 tablet (100 mg total) by mouth daily. 90 tablet 3 10/31/2022 01/17/2023 documented as of this encounter Plan of Treatment Not on file documented as of this encounter Procedures Procedure Name Priority Date/Time Associated Diagnosis Comments EEG ROUTINE - AWAKE AND SLEEP Routine 11/20/2022 3:10 PM CDT Spells Undifferentiated documented in this encounter Results * EEG routine - awake and sleep (11/20/2022 3:10 PM CDT) Narrative MMODAL - 11/20/2022 3:36 PM CDT Clinical Interpretation: Essentially normal EEG during wakefulness and sleep. ??No potentially epileptogenic activity was present during the recording. Classification: SPECIAL STUDY - Short-term video EEG. Essentially normal (awake and asleep). EKG channel. Report: The short-term video EEG recording during wakefulness contains 10 Hz alpha activity over the posterior head regions. ??No abnormal activity occurred at rest or with photic stimulation. During the recording, the patient fell asleep spontaneously. ??No abnormal activity occurred during sleep or at the time of arousal. The EKG channel was unremarkable. Sundeep Barlow M.D. NEUROLOGY ORDERABLES MMODAL NA documented in this encounter Visit Diagnoses Diagnosis Spells Undifferentiated documented in this encounter Care Teams Weatherseal Technician Relationship Specialty Start Date End Date None Reported, Pcp PCP - General Family Medicine 07/28/22 02/03/23 documented as of this encounter
--- OUTSIDE RECORDS SUMMARY | 2023-05-08 16:25 | XMS_ITS | Encounter Summary ---
Author Name Unknown Organization [facility] Address [address] [place] [address] Care Team Providers Care Extra Gang Supervisor Name Role Phone None Reported, Pcp Primary Care Provider Unavail able Encounter Details Date Type Department Care Team ([facility] st Contact Info) Description 10/31/2022 Orders Only Division of Nephrology and Hypertension, [facility], in [place], [place] [address] [place] [address] Drew Mo, HALLE, C.N.P., M.S.N. [address] [place] [address] Social History Tobacco Use Types Packs/Day Years [...] on filedocumented in this encounter Care Teams Extra Gang Supervisor Relationship Specialty Start Date End Date None Reported, Pcp PCP - General Family Medicine 07/28/22 02/03/23 documented as of this encounter
--- OUTSIDE RECORDS SUMMARY | 2023-05-08 16:25 | XMS_ITS | Encounter Summary ---
Author Name Unknown Organization [facility] Address [address] [place] [address] Care Team Providers Care Telehealth Case Manager Name Role Phone None Reported, Pcp Primary Care Provider Unavail able Reason for Visit * Reason Comments Chest Pain * Outpatient (Routine) - Closed Specialty Diagnoses / Procedures Referred By Contact Referred To Contact Cardiovascular Diseases / Cardiovascular Disease Diagnoses Pain Chest Drew Mo APRN C.N.P., M.S.N. [address] [place] [phone] [facility] Region Referral ID Status Reason Start Date Expiration Date Visits Re quested Visits Authorized [id number] Closed 07/11/2022 07/11/2023 1 1 Encounter Details Date Type Department Care Team (Late st Contact Info) Description 11/06/2022 10:30 AM CDT Comprehensive Visit Department of Cardiovascular Diseases in [place], [place] [address] [place] [phone] Sergei Ibrahmi M.D. [address] [place] [phone] Pain Chest Social History Tobacco Use Types Packs/Day Years [...] your living situation today? I have a [facility] place to live 11/14/2022 Sex and Gender Information Value Date Recorded Sex Assigned at Male 11/14/2022 11:03 AM CDT Gender Identity Male 11/14/2022 11:03 AM CDT Sexual Orientation Straight 11/14/2022 11 :03 AM CDT documented as of this encounter Last Filed Vital Signs Vital Sign Reading Time Taken Comments Blood Pressure 143/71 11/06/2022 10:26 AM CDT Pulse 72 11/06/2022 10:26 AM CDT Temperature 36.9 ??C (98.4 ??F) 11/06/2022 10:22 AM C DT Respiratory Rate - - Oxygen Saturation 99% 11/06/2022 10:22 AM CDT Inhaled Oxygen Concentration - - Weight 65 kg (143 lb 4.8 oz) 11/06/2022 10:22 AM CDT Height 166.7 cm (5' 5.63) 11/06/2022 10:22 AM C DT Body Mass Index 23.39 11/06/2022 10:22 AM CDT documented in this encounter Consult Notes * Sergei Ibrahim M.D. - 11/06/2022 10:30 AM CDT REASON FOR CONSULT Chest pain. REFERRAL SOURCE Drew Mo APRN, C.N.P. HISTORY OF PRESENT ILLNESS Mr. Justin is a delightful 37-year-old gentleman who presents to the Cardiovascular Clinic today for evaluation and recommendations in the setting of constant chest pain and dyspnea. This occurs [place] background history of end-stage renal disease secondary to hypertensive nephropathy, on intermittent hemodialysis via a left upper extremity AV fistula. He has a history of hypertensive urgency, anemia of chronic kidney disease, secondary hyperparathyroidism, spells with question of seizure disorder versus spells of other etiology, as well as a history of troponin leak during periods of hyperten sive urgency. I understand that last February he moved to [place] from [facility] in the setting of a challenging social situation in [place]. He does have a history of uncontrolled depression, which led him to pause dialysis for a few months and that was associated with heart failure with fluid overload. Of late, he has been participating in dialysis thrice weekly on Tuesdays, , and Saturdays. He now has a many month history of constant chest discomfort which is described as like someone sitting on his chest. He rarely notes occasional sharp pain in the chest but this is primarily a resultof constant chest pressure, which is worst when he is due for dialysis. This is also associated with dyspnea on exertion and orthopnea but no PND. He does have a chronic cough without necessarily wheezing associated with this. He is currently living alone in [place]. He does not have much social support here in [place] yet. He has access to school social worker via dialysis and is planning to arrange another followup visitwith his PCP to explore the depression and to target this. No SI/HI. He has not syncopized in the past. CURRENT MEDICATIONS Current Outpatient Medications: amLODIPine (NORVASC) 10 mg tablet, Take 1 tablet (10 mg total) by mouth daily., Disp: 90 tablet, Rfl: 3 benazepriL (LOTENSIN) 20 mg tablet, Take 1 tablet (20 mg total) by mouth 2 (two) times a day., Disp: 180 tablet, Rfl: 3 calcium acetate,phosphat bind, (ELIPHOS) 667 mg (169 mg calcium) tablet, Take 1,334 mg by mouth 3 (three) times a day with meals., Disp: , Rfl: hydrALAZINE (APRESOLINE) 50 mg tablet, Take 1 tablet (50 mg total) by mouth 2 (two) times a day., Disp: 180 tablet, Rfl: 3 omeprazole (PriLOSEC) [address] capsule, Take 1 capsule (40 mg total) by mouth every morning before breakfast., Disp: 90 capsule, Rfl: 3 rOPINIRole (REQUIP) 0.5 mg tablet, Take 0.5 mg by mouth 3 (three) times a day. for 7 days, Disp: , Rfl: torsemide (DEMADEX) 100 mg tablet, Take 1 tablet (100 mg total) by mouth daily., Disp: 90 tablet, Rfl: 3 traMADoL (ULTRAM) 50 mg tablet, Take 25 mg by mouth every 8 (eight) hours as needed for pain., Disp: , Rfl: albuterol 90 mcg/actuation inhaler, Inhale 2 puffs every 6 (six) hours as needed for wheezing or shortness of breath (or cough)., Disp: 8 g, Rfl: 11 cloNIDine (CATAPRES-TTS) 0.1 mg/24 hr patch, Place 1 patch on the skin once a week., Disp: 12 patch, Rfl: 3 MEDICAL HISTORY Reviewed with pertinent findings as noted in the HPI. SOCIAL HISTORY Ms. Justin currently lives in [place], [place], by himself. 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 He smokedcigarettes socially but never habitually and quit in 2008. He does have a long history of secondhand smoke exposure from prior significant other. He denies any current alcohol intake. He denies ever using any recreational drugs. FAMILY HISTORY He denies any knowledge of family history of heart disease. He has 9 children without any known heart disease. OBJECTIVE PHYSICAL EXAMINATION Vitals: Blood pressure on the right 145/73, on the left 143/71. Heart rate is 78 beats per minute and regular. Weight is 65 kg. SpO2 is 99% on room air. Temp is 98.4 Fahrenheit. General: Appears comfortable, stated age, and in no acute distress. HEENT: Moist mucous membranes with some injection of the right eye. Cardiovascular: Regular rate and rhythm with good S1 and good S2. There is a 3/6 early peaking systolic ejection murmur noted best at the left upper sternal border with some radiation throughout the precordium. There is a distinct systolic murmur which radiates from his left upper extremity fistulato the subclavian and to the chest as well. I do not appreciate any other murmurs, clicks, rubs, orgallops. Jugular venous pressure is normal with normal abdominojugular reflux. Lungs: Clear to auscultation bilaterally. Abdomen: Soft and nondistended. Extremities: Warm with trivial bilateral lower extremity edema. Psych: Pleasant affect. Thought processes are linear and goal oriented. DIAGNOSTICS Labs from July of 2022 with high-sensitivity troponin 72 followed by 75. NT- proBNP 15,177. Chest x-ray from July of 2022 with cardiomegaly and pulmonary vascular congestion but no pleural effusion. Twelve-lead ECG from October 29, 2022, with borderline sinus tachycardia at 101 beats per minute with voltage criteria for LVH. Anteroseptal ST elevation and T- wave inversions are noted in the aVL lead. TTE from October 08, 2022, with normal LV size, EF 68%, and no regional wall motion abnormalities. Normal RV size and function with estimated RVSP 41 and estimated right atrial pressure of 5. RV strain normal at -25% and no significant valvular heart disease. Normal LV filling pressures at rest. Thereis concentric left ventricular hypertrophy with abnormal LV strain at -13%, most likely a consequence of chronic hypertension. Tiny anterior pericardial effusion. ASSESSMENT / PLAN #1 Heart failure with preserved ejection fraction secondary to fluid overload as a consequence of end-stage renal disease with a history of intermittently missing hemodialysis #2 History of hypertensive nephropathy resulting in end-stage renal disease, now on intermittent hemodialysis #3 Limited social support #4 Chronic cough, query asthma #5 Depression, by report It was an absolute pleasure meeting and visiting with Mr. Justin in the Cardiovascular Clinic today. I took the opportunity to review the definitions and long-term approach to heart failure with preserved ejection fraction. In his case, this is not a consequence of organic heart disease but instead the consequence of end-stage renal disease and we know that if he misses hemodialysis or if we pull insufficient fluids he will then be fluid overloaded and experience his symptoms of dyspnea, orthopnea, and chest pressure. Fortunately, his stress test was negative for any evidence of ischemia and his echocardiogram did not reveal any other exacerbating factors. In light of his age and uncontrolled hypertension, I do expect this is the cause of his concentric LVH and abnormal strain pattern as opposed to any other infiltrative cardiomyopathy. I would defer to his Nephrology providers as it relates to the long-term control of blood pressure.I encouraged him to start the recently prescribed torsemide 100 mg on his non-dialysis days to promote as much urine output as possible. I iterated the importance of a good social network as well as good control of his depression. I asked him to follow back with his PCP to further explore this and to consider establishing with a psychologist for talk therapy, likely in the form of CBT +/- pharmacotherapy as indicated. I wonder whether he may have asthma contributing to his now chronic cough and I sent a prescriptionfor albuterol and reviewed its appropriate use. I asked him to follow back with his PCP with this and to consider lung function tests if this is not helpful. He is already set to follow back with Neurology to further explore his spells. In the absence of new or concerning symptoms, I think he can follow back with Cardiology as needed,but I gave him a copy of my card and asked him not to hesitate to reach out to me with questions orconcerns in the future. Sergei Ibrahim M.D. CT CT Job ID: [id number] documented in this encounter Plan of Treatment Not on file documented as of this encounter Visit Diagnoses Diagnosis Pain Chest documented in this encounter Care Teams Telehealth Case Manager Relationship Specialty Start Date End Date None Reported, Pcp PCP - General Family Medicine 07/28/22 02/03/23 documented as of this encounter
--- OUTSIDE RECORDS SUMMARY | 2023-05-08 16:25 | XMS_ITS | Encounter Summary ---
Author Name Unknown Organization [facility] Address [address] [place] [address] Care Team Providers Care Personal Chef Name Role Phone None Reported, Pcp Primary Care Provider Unavail able Reason for Referral * Outpatient (Routine) - Authorized Specialty Diagnoses / Procedures Referred By Elianaac t Referred To Contact Diagnoses Spells Undifferentiated Syncope Vasovagal Procedures Autonomic reflex Screen Chan Herrera M.D., Ph.D. [address] [place] [phone] [facility] Referral ID Status Reason Start Date Expiration Date V isits Requested Visits Authorized [id number] Authorized 11/21/2022 11/21/2023 1 1 Reason for Visit * Outpatient (Routine) - Closed Specialty Diagnoses / Procedures Referred By Contac t Referred To Contact Neurology Diagnoses Spells Undifferentiated Sundeep Barlow M.D. [address] [place] [phone] [facility] Referral ID Status Reason Start Date Expiration Date Visits Re quested Visits Authorized [id number] Closed 10/29/2022 10/28/2025 1 1 Encounter Details Date Type Department Care Team (Latest Contact Info) Description 11/21/2022 1:00 PM CDT Comprehensive Visit Department of Neurology in [place], [place] [address] [place] [phone] Chan Herrera M.D., Ph.D. [address] [place] [phone] Franciscolls Undifferentiated (Primary Dx); Syncope Vasovagal Social History Tobacco Use Types Packs/Day Years [...] your living situation today? I have a [facility] place to live 11/14/2022 Sex and Gender Information Value Date Recorded Sex Assigned at Male 11/14/2022 11:03 AM CDT Gender Identity Male 11/14/2022 11:03 AM CDT Sexual Orientation Straight 11/14/2022 11 :03 AM CDT documented as of this encounter Last Filed Vital Signs Vital Sign Reading Time Taken Comments Blood Pressure - - Pulse - - Temperature - - Respiratory Rate - - Oxygen Saturation - - Inhaled Oxygen Concentration - - Weight 62 kg (136 lb 11 oz) 11/21/2022 12:56 PM CDT Height 166.2 cm (5' 5.43) 11/21/2022 12:56 PM C DT Body Mass Index 22.45 11/21/2022 12:56 PM CDT documented in this encounter Consult Notes * Chan Herrera M.D., Ph.D. - 11/21/2022 1:00 PM CDT SUBJECTIVE Referring provider: Dr. Sundeep Barlow Primary Care Provider: Dr. Stfe Ho CHIEF COMPLAINT / REASON FOR VISIT Salbador Justin is a 37 y.o. male who presents for evaluation of spells HISTORY OF PRESENT ILLNESS Salbador Justin is a 37 y.o. right-handed male with asthma GERD, depressed mood, hypertension, HFpEF, ESRD on dialysis (), who presents for evaluation of spells. History obtained by chart review and via patient. The patient's first spell occurred at roughly age 9 and have occurred roughly monthly since then. The spells have a very clearly defined sequence of events. He gets an uncomfortable, poorly defined sensation has localized in his stomach and does not radiate to any other location. He then develops diffuse sweating and and then his vision blacks out followed by loss of consciousness. He is unconscious for seconds to minutes. When these events occurred as a child, he tended to have associated bowel and bladder incontinence. Bowel and bladder incontinence has not happened as frequently during adulthood. The spells tend to occur more frequently when he is sick and when he is experiencing emotional stress. He can not identify any other provoking or relieving factors. He has had many people witnessed these spells over the years and no one has ever mentioned rhythmicbody movements. He has never bitten his tongue. He denies any other preceding symptoms besides the uncomfortable abdominal sensation mentioned above. Specifically, he denies preceding visual, olfactory, or gustatory sensations. He denies any history of abnormal movements of his extremities or face.He denies family history of seizures. He denies a history of alcohol, tobacco, or other substance use. He endorses some ongoing depressed mood. He denies suicidal ideation. He denies any history of auditory or visual hallucinations. He has requested psychiatry referral from his PCP to continue workingon the symptoms. He notes periods of depressed mood in the past, most recently in the spring when his fiancee broke up with him. This event was the impetus for him to move to [place]. He islooking forward to get in his life established in the [place]. 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 He was recently evaluated in the emergency department on October [address] Sundeep Barlow. At that time, the patient was endorsing significant emotional stress and had experienced 3 spells that day. Suspicion at that time for seizures was very low but CT head and routine EEG was recommendedto complete the workup. CT head was largely unremarkable. Routine EEG was completed on 11/20/2022 and was negative for epileptiform activity. Due to ongoing chest pain and shortness of breath in the setting of ESRD the patient was evaluated by Cardiology on 11/06/2022 with largely reassuring workup. The patient recalls seen a neurologist in 2016 in [facility] regarding the spells. He completed a basic evaluation at that time that he thinks included an EEG and MRI brain. He was not able to recall the details of this testing or the results, but reports that he was started on an antiepileptic medication at that time. He reports taking this medication for about 1.5 months but then self disc ontinuing because he thought that the frequency of his episodes was getting worse. Unfortunately, the records of this workup are not available for review the patient states that he is unable to obtain them. PAST MEDICAL HISTORY Asthma albuterol inhaler as needed GERD Omeprazole Depressed mood Recently obtained a psychologist referral from his primary care physician He reports being on a medication for depressed mood roughly 3-4 years ago but he can not recall which one He denies suicidal ideation at this appointment He denies a history of auditory or visual hallucinations Hypertension amlodipine, benazepril, clonidine, and hydralazine HFpEF TTE on 10/08/2022 showed concentric left ventricular hypertrophy, LVEF 68%. ESRD on dialysis dialysis via left AV fistula torsemide and calcium acetate FAMILY HISTORY Hypertension, T2DM on mom's side SOCIAL HISTORY Moved to [place] February of 2022. Currently lives alone in [place], [place]. 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 Denies recent alcohol, tobacco, or other substance use. Is working on establishing a new life in the [place] after having previously lived in [facility]. REVIEW OF SYSTEMS Constitutional: - Negative for fatigue, fever, night sweats, weight gain of more than 10 pounds and weight loss of more than 10 pounds. Eyes: - Negative for double vision and visual problems. ENT: - Negative for difficulty hearing. Respiratory: - Negative for shortness of breath. Cardiovascular: - Negative for chest pain, pressure or tightness. Gastrointestinal: - Negative for abdominal (belly) pain or cramping, blood in stool, constipation, diarrhea, nausea and vomiting. Genitourinary: - Negative for incontinence, difficulty urinating and blood in urine. Hematologic: - Negative for abnormal lumps or bumps. Musculoskeletal: - Negative for back pain and joint swelling. Neurological: Positive for headaches. - Negative for loss of consciousness, numbness or shooting pain in hands, arms, legs, or feet, blackouts and weakness in arms or legs. - He has [id number] chronic headaches that are worse when he is due for dialysis. These headaches improve following dialysis. ROS as stated above and in HPI, all other systems were reviewed and are negative OBJECTIVE PHYSICAL EXAM General: Well-developed, well-nourished, sitting in examination room comfortably Cardiac: Regular rate and rhythm, no murmurs, one irregular beat Pulmonary: Clear to auscultation in bilateral anterior and posterior lung jolley Abdominal: Soft, nontender, nondistended Skin: No rashes on exposed skin, left upper extremity AV fistula Neuro: For details of the neurologic examination, please see the neurologic examination form. In summary, neurologic exam notable for: Essentially normal neurologic exam. Brisk reflexes diffusely but not pathologic. Very mildly diminished sensation to pinprick and vibration in bilateral lowerextremities up to the level of the ankles. DIAGNOSTICS Laboratory workup from 10/29/2022 during ED visit largely unremarkable. Very mild normocytic anemia. BNP consistent with chronic kidney disease. 10/29/2022 - EXAM: CT HEAD WITHOUT IV CONTRAST COMPARISON: CT head 10/08/2022. FINDINGS: No acute intracranial hemorrhage, mass effect, or infarct. Similar presumably chronic small vessel changes patchy white matter low attenuation right greater than left centrum semiovale. Trace mucosal thickening about paranasal sinuses. Underpneumatized bilateral mastoid air cells. 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 IMPRESSION: No acute intracranial findings. 11/21/2022 - EEG routine - awake and sleep Clinical Interpretation: Essentially normal EEG during wakefulness and sleep. No potentially epileptogenic activity was present during the recording. Classification: SPECIAL STUDY - Short-term video EEG. Essentially normal (awake and asleep). EKG channel. Report: The short-term video EEG recording during wakefulness contains 10 Hz alpha activity over the posterior head regions. No abnormal activity occurred at rest or with photic stimulation. During the recording, the patient fell asleep spontaneously. No abnormal activity occurred during sleep or at the time of arousal. The EKG channel was unremarkable. ASSESSMENT / PLAN # Spells Undifferentiated # Syncope Vasovagal, suspected In summary, Mr. Salbador Justin is a 37 y.o. right-handed male with asthma GERD, depressed mood, hypertension, HFpEF, ESRD on dialysis (), who presents for evaluation of spells. Based on the duration of the spells (since childhood), frequency (approximately monthly since then), characteristicpattern of symptoms (abdominal discomfort with diffuse sweating followed by blurry vision and brief loss of consciousness and brisk return to baseline), unremarkable CT head, and unremarkable routineEEG the most likely explanation is vasovagal syncope. Other etiologies such as seizure or cardiac arrhythmia appear much less likely. To more definitively test for autonomic dysfunction in this patient which may be a jitney driver of his spells, I recommended autonomic reflex testing. The patient expressed interest in having this testing done, and I will call him with the results once they are obtained.I suggested that the best way to avoid additional spells will be strict adherence to dialysis, consistency with his medications, consistency with his salt and fluid intake, and managing emotional stressors. Chronic, recurrent vasovagal syncope, which I think is the most likely explanation for his spells, should not preclude him from kidney transplant candidacy. Plan: - autonomic reflex screening ordered for next available slot, will call patient with results of study Patient staffed with Dr. Emma Herrera M.D., Ph.D. PGY-2 Resident Department of Neurology Pager # [phone] 11/21/22 Orders Placed This Encounter Procedures Autonomic reflex Screen documented in this encounter Plan of Treatment Scheduled Orders Name Type Priority Associated Diagnoses Orde r Schedule Autonomic reflex Screen Neurology Routine Spells Undifferentiated Syncope Vasovagal Expected: 11/21/2022 (Approximate), Expires: 02/22/2024 documented as of this encounter Visit Diagnoses Diagnosis Spells Undifferentiated- Primary Syncope Vasovagal documented in this encounter Care Teams Personal Chef Relationship Specialty Start Date End Date None Reported, Pcp PCP - General Family Medicine 07/28/22 02/03/23 documented as of this encounter
--- OUTSIDE RECORDS SUMMARY | 2023-05-08 16:25 | XMS_ITS | Encounter Summary ---
Author Name Unknown Organization [facility] Address [address] [place] [address] Care Team Providers Care Tube Station Attendant Name Role Phone None Reported, Pcp Primary Care Provider Unavail able Reason for Referral * Outpatient (Routine) - Authorized Specialty Diagnoses / Procedures Referred By Contac t Referred To Contact Diagnoses Pain Chest Procedures NM Cardiac Perfusion Rest and Stress SPECT Drew Mo APRN C.N.P., M.S.N. [address] [place] [phone] [facility] Region Referral ID Status Reason Start Date Expiration Date V isits Requested Visits Authorized [id number] Authorized 07/11/2022 07/11/2023 6 6 Reason for Visit * Outpatient (Routine) - Authorized Specialty Diagnoses / Procedures Referred By Contac t Referred To Contact Diagnoses Pain Chest Procedures NM Cardiac Perfusion Rest and Stress SPECT Drew Mo APRN, C.N.P., M.S.N. [address] [place] [phone] [facility] Region Referral ID Status Reason Start Date Expiration Date V isits Requested Visits Authorized [id number] Authorized 07/11/2022 07/11/2023 6 6 Encounter Details Date Type Department Care Team (Latest Contact Info) Description 11/04/2022 7:55 AM CDT - 11/04/2022 8:27 AM CDT Hospital Encounter Department of Radiology in [place], [place] [address] [place] [phone] Drew Mo APRN, C.N.P., M.S.N. [address] [place] [phone] Pain Chest Discharge Disposition: Home or Self Care Social [...] your living situation today? I have a [facility] place to live 11/02/2022 Sex and [...] CDT Pain Chest documented in this encounter Results * NM Cardiac Perfusion Rest and Stress SPECT (11/04/2022 11:46 AM CDT) 11/04/2022 9:48 AM CDT Narrative HILARY MCGARRY - 11/04/2022 3:34 PM CDT See PDF For Result Procedure Note Rito Solomon M.D. - 11/04/2022 See PDF For Result Drew Mo APRN C.N.P., M.S.N. [facility] [employer] [place] NA documented in this encounter Visit Diagnoses Diagnosis Pain Chest documented in this encounter Administered Medications Inactive Administered Medications - up to 3 most recent administrations Medication Order MAR Action Action Date Dose Rate Site technetium Tc 99m sestamibi injection (Tc-99m CARDIOLITE) 5.4-48.4 millicurie, intravenous, Once, On Fri11/04/22 at 1200, For 1 dose, Imaging Protocol Orders Given 11/04/2022 11:43 AM CDT 42.9 millicuries Right Hand technetium Tc 99m sestamibi injection (Tc-99m CARDIOLITE) 5.4-48.4 millicurie, intravenous, Once, On 11/04/22 at 1200, For 1 dose, Imaging Protocol Orders Given 11/04/2022 8:45 AM CDT 11 millicuries Right Hand documented in this encounter Care Teams Tube Station Attendant Relationship Specialty Start Date End Date None Reported, Pcp PCP - General Family Medicine 07/28/22 02/03/23 documented as of this encounter
--- OUTSIDE RECORDS SUMMARY | 2023-05-08 16:25 | XMS_ITS | Encounter Summary ---
Author Name Unknown Organization [facility] Address [address] [place] [id number] Care Team Providers Care Dental Receptionist Name Role Phone None Reported, Pcp Primary Care Provider Unavail able Reason for Visit * Reason Onset Date Comments Txp Initial RN Phone Interview 10/30/2022 * Appointment Request (Routine) - Closed Specialty Diagnoses / Procedures Referred By Contac t Referred To Contact Transplant Diagnoses [id number] Please see [id number] for updated notes and approval. Procedures [id number]- Please see [id number] for updated notes and approval. [facility] [address] [place] [id number] Referral ID Status Reason Start Date Expiration Date Visits Re quested Visits Authorized [id number] Closed 10/10/2022 10/10/2023 1 1 Encounter Details Date Type Department Care Team (Latest Contact Info) Description 10/30/2022 10:30 AM CDT Clinical Communication Maco ferreira [facility] in [place], [place] [address] [place] [phone] Jasmin Candelario, RJuan CNJuan C [address] [place] [phone] Txp Initial RN Phone Interview Social History Tobacco Use Types Packs/Day Years [...] your living situation today? I have a [facility] place to live 11/14/2022 Sex and Gender Information Value Date Recorded Sex Assigned at Male 11/14/2022 11:03 AM CDT Gender Identity Male 11/14/2022 11:03 AM CDT Sexual Orientation Straight 11/14/2022 11 :03 AM CDT documented as of this encounter Miscellaneous Notes * Telephone Encounter - Dagmar Rasmussen - 10/30/2022 2:50 PM CDT We are requesting additional OSM on Salbador Justin. OSM Needed Timeframe CE Requested Received/ Date in CE Outside Facility [] 2429 Form * [] Dialysis Run Sheets * Last 3 Runs [] [x] Colonoscopy with Pathology * Most Recent within 10 years [] 10/30 11/06 [place], [place] [phone] [] Pap Smear * Most Recent within 3 years [] [] Mammogram * Most Recent [] [] Bladder Study Last 12 Months [] [] CT/MRI of: []Abdomen []Pelvis [] Chest [] Other: Last 12 Months [] [] Cystoscopy Last 12 Months [] [] Diagnostic Imaging Reports Last 12 Months [] [] Discharge Summaries Last 12 Months [] [x] EGD w/Pathology Most Recent [] 10/30 11/06 [place], [place] [phone] Both 2017 and 2020 [x] History & Physical * [x] Physician Consultation * Last 12 Months [] 10/30 10/31 [place], [place] [phone] Will want records from 2020 when we underwent transplant eval [] Labs Last 3 (within 12 Months) [] [] Medication List Most Recent (within 12 Months) [] [] [facility] Biopsy Report [] Biopsy Slides Most Recent [] [] [facility] Pathology Report Most Recent [] [] Office Notes Last 12 Months [] [] Pathology Reports Most Recent [] [] Pulmonary Function Tests Last 12 Months [] [] Psycho-Social Assessments Last 12 Months [] [] Ultrasound [] Abdomen [] Renal Last 12 Months [] [] Vaccinations All [] Cardiac Testing:Will the patient see a Diversity Specialist for Evaluation: YES If yes, Coronary Angiogram films & report needed. Last 5 years [] 10/30 10/31 [place], [place] [phone] Or [facility] [phone] [] Cardiac Stress Test Last 12 Months [] [] Carotid Doppler Last 12 Months [] [] Carotid & Lower Extremity Doppler US Last 12 Months [] [] CT Angiogram Most Recent [] [] ECHO Most Recent [] *Need prior to Evaluation starts * Telephone Encounter - Jasmin Candelario R.N. - 10/30/2022 11:29 AM CDT 37 y/o seeking kidney for ESRD d/t HTN that is poorly to moderately controlled on 4 meds. H/o [place] [id number]. He has been in ED 9 times in last 4 months and notes do state noncompliance with meds. Will have cardiac workup at [facility] on 11/04/2022. Also patient is supposed to be on meds for seizures but stopped them after one month stating he ???didn't feel like they helped?? . Was worked up for transplant in [facility] but later denied d/t noncompliance with dialysis. States he quit going todialysis for 3 months d/t depression. Patient states he is in a better place and more compliant with healthcare. Patient self reports BP is getting better as he is more compliant with his meds and states great compliance with dialysis completing all sessions in their entirety unless he is hospitalized at which point he is dialyzed in the hospital. Denies taking any psychiatric meds or working with a psychiatrist or counselor. Instructed patient he must demonstrate compliance with BP meds and dialysis, also instructed him to secure psychiatric care and speak with neurologist about seizure medications. Please advise. Please provide triage recommendations: 1. Unsuitable candidate based on preliminary records for the following reason 2. Need more records 3. Bring for face to face consult only 4. Bring for full evaluation A. If full evaluation recommended, what additional consults and/or tests need to be prescheduled? * Telephone Encounter - Jasmin Candelario R.N. - 10/30/2022 11:09 AM CDT We are requesting additional OSM on Salbador Justin. OSM Needed Timeframe CE Requested Received/ Date in CE Outside Facility [] 2895 Form * [] Dialysis Run Sheets * Last 3 Runs [] [x] Colonoscopy with Pathology * Most Recent within 10 years [] [place], [place] [phone] [] Pap Smear * Most Recent within 3 years [] [] Mammogram * Most Recent [] [] Bladder Study Last 12 Months [] [] CT/MRI of: []Abdomen []Pelvis [] Chest [] Other: Last 12 Months [] [] Cystoscopy Last 12 Months [] [] Diagnostic Imaging Reports Last 12 Months [] [] Discharge Summaries Last 12 Months [] [x] EGD w/Pathology Most Recent [] [place], [place] [phone] Both 2017 and 2020 [x] History & Physical * [x] Physician Consultation * Last 12 Months [] [place], [place] [phone] Will want records from 2020 when we underwent transplant eval [] Labs Last 3 (within 12 Months) [] [] Medication List Most Recent (within 12 Months) [] [] [facility] Biopsy Report [] Biopsy Slides Most Recent [] [] [facility] Pathology Report Most Recent [] [] Office Notes Last 12 Months [] [] Pathology Reports Most Recent [] [] Pulmonary Function Tests Last 12 Months [] [] Psycho-Social Assessments Last 12 Months [] [] Ultrasound [] Abdomen [] Renal Last 12 Months [] [] Vaccinations All [] Cardiac Testing:Will the patient see a Diversity Specialist for Evaluation: YES If yes, Coronary Angiogram films & report needed. Last 5 years [] [place], [place] [phone] Or [facility] [phone] [] Cardiac Stress Test Last 12 Months [] [] Carotid Doppler Last 12 Months [] [] Carotid & Lower Extremity Doppler US Last 12 Months [] [] CT Angiogram Most Recent [] [] ECHO Most Recent [] *Need prior to Evaluation starts * Telephone Encounter - Jasmin Candelario R.N. - 10/30/2022 10:22 AM CDT Virtual Visits Included: No Prefers in person visits Obtained Social Security: Yes Informed of COVID vaccine recommendation: Yes Blower Operator Utilized: No Phone Screen Type: Kidney Completed the following phone screen: Renal Diagnosis/Disease: Hypertensive Nephrosclerosis. Height: 5'4 Weight: 138 BMI: 23.7 If BMI >35, answer the following questions: - Patient reported highest weight: - Patient reported lowest weight: Have you had weight loss surgery? No - If yes, how much weight lost? Bariatrics benefit check submitted? [] Yes [] No (Benefit check not needed for Medicare or [employer]) Do you know your GFR? Yes, GFR is on dialysis Allergies: Yes (add allergies in Epic) Bactrim/sulfa Allergy? No Previous Transplants? No Evaluated elsewhere? Yes Denied at outside facility denied for noncompliance (quit going to dialysis d/t depression in 2020) If Yes, where: [facility] Currently Listed at another Transplant Center: No If yes: Center Name: Coordinator Name: Contact Number: Kidney History: Anuric: No Oliguric (decreased urine output): Yes Dialysis: Hemodialysis Dialysis Schedule Date Dialysis Started 2017 Dialysis Center [facility] -goes to all scheduled appts and completes in entirety unless in hospital and then dialyzes in hospital Kidney Stones: Yes thinks maybe had one one time in 10/2021, didn't go to doctor UTI History: No Diabetes History: NA Colonoscopy: Yes Facility [facility] Date 2017 due to ulcers EGD: Yes [facility] Date 2017 and 2020 Mammo: NA Pap: NA Cardiovascular History: HTN: Yes Moderately controlled on 4 meds CA: Yes 2015 due to high blood pressure CVA/TIA: No CHF: Yes CAD: No CABG: No Arrhythmias: No Implanted Devices: No PVD: No Amputations: No Blood Clotting disorders: No DVT/PE: No Pt on Anticoagulation: No Additional cardiac testing? ECG CXR Where was the test performed? [facility] - will have more cardiac testing on 11/04/2022 [facility] Medical History: Abdominal Aortic Aneurysm: No Abdominal Imaging in the last year (CT A/P): Yes Images requested from August 2022 COPD: No MOY: No On Oxygen?: No Cancer History: No Infectious Disease History: NA Psychiatric History: Depression Anxiety not followed, looking for counselor Do you have any current or past mental health history? Yes See above - has depression and anxiety Have you ever had a psychiatric hospitalization? No (If patient says yes, route to social workers for review.) How many medications are you currently taking for psychiatric treatment? 0 Alcohol Use: No Comment: Tobacco Use: Prior/Quit social smoker, 3 cigarettes/month quit 16 years ago Drug Use: No Comment: Marijuana Use: No Chronic Pain: No Opioid Use: No Comment: Current living arrangement: Apartment Do you live alone? Yes Assistive devices? No Any outside assistance: NA Caregiver: yes-Margie Potential Living Donors: No Prior to starting the phone screen process, the following information was verbalized to educate thepatient on the Evaluation Process. Received authorization for kidney transplant referral. Information for Kidney, Kidney/Pancreas, andPancreas Transplant Candidates [id number] was reviewed with the patient via telephone call. Confirmed Salbador Justin's interest in pursuing a kidney transplant evaluation at [facility]. The patient verbalized understanding of the information and was given the opportunity to ask questions which were answered to Salbador Justin's satisfaction. Patient agrees to proceed with the transplant evaluation and consents to HIV testing. documented in this encounter Plan of Treatment Not on file documented as of this encounter Visit Diagnoses Not on filedocumented in this encounter Care Teams Dental Receptionist Relationship Specialty Start Date End Date None Reported, Pcp PCP - General Family Medicine 07/28/22 02/03/23 documented as of this encounter
--- OUTSIDE RECORDS SUMMARY | 2023-05-08 16:25 | XMS_ITS | Encounter Summary ---
Author Name Unknown Organization [facility] Address [address] [place] [address] Care Team Providers Care Clinical Trials Assistant Name Role Phone None Reported, Pcp Primary Care Provider Unavail able Reason for Referral * Outpatient (Routine) - Closed Specialty Diagnoses / Procedures Referred By Mel quiroz Referred To Contact Neurology Diagnoses Spells Undifferentiated Sundeep Barlow M.D. [address] [place] [phone] [facility] Referral ID Status Reason Start Date Expiration Date Visits Re quested Visits Authorized [id number] Closed 10/29/2022 10/28/2025 1 1 * Outpatient (Routine) - Closed Specialty Diagnoses / Procedures Referred By Mel quiroz Referred To Contact Neurology Diagnoses Spells Undifferentiated Procedures EEG routine - awake and sleep Sundeep Barlow M.D. [address] [place] [phone] [facility] Referral ID Status Reason Start Date Expiration Date Visits Re quested Visits Authorized [id number] Closed 10/29/2022 10/29/2023 1 1 Reason for Visit * Reason Comments Seizures Encounter Details Date Type Department Care Team ([facility] st Contact Info) Description 10/29/2022 1:15 AM CDT - 10/29/2022 2:28 PM CDT Emergency [facility] Emergency Department [address] [place] [phone] Yecenia Sanchez M.D., M.S. 200 [place] [phone] Jack Velazquez M.D., Ph.D. 200 [place] [phone] Spells Neurological (HCC) (Primary Dx); Spells Undifferentiated; Failure Renal End Stage (HCC) Discharge Disposition: Home or Self Care Social History Tobacco Use Types Packs/Day Years Used Date Smoking Tobacco: Never Passive Smoke Exposure: Never Smokeless Tobacco: Never Tobacco Cessation:Counseling Given: Not Answered Alcohol Use Standard Drinks/Week Comments Never 0 (1 standard drink = 0.6 oz pur e alcohol) Nutrition Answer Date Recorded Nutrition: EVOO Fat Source Unknown 03/22 Nutrition: Servings of Fruits/Vegetables per Day Not on file 03/22/2022 Dental Answer Date Recorded Dental: Regular Dentist Unknown 03/22/20 Sex and Gender Information Value Date Recorded Sex Assigned at Male 11/14/2022 11:03 AM CDT Gender Identity Male 11/14/2022 11:03 AM CDT Sexual Orientation Straight 11/14/2022 11 :03 AM CDT documented as of this encounter Last Filed Vital Signs Vital Sign Reading Time Taken Comments Blood Pressure 126/71 10/29/2022 12:30 PM CDT Pulse 89 10/29/2022 8:00 AM CDT Temperature 36.6 ??C (97.9 ??F) 10/29/2022 6:00 AM CD T Respiratory Rate 23 10/29/2022 6:15 AM CDT Oxygen Saturation 99% 10/29/2022 8:00 AM CDT Inhaled Oxygen Concentration - - Weight 63.2 kg (139 lb 5.3 oz) 10/29/2022 8:30 A M CDT Height - - Body Mass Index 26.31 10/20/2022 7:14 AM CDT documented in this encounter Discharge Summaries * Georgia Estrada P.A.-C. - 10/29/2022 1:41 PM CDT Emergency Department Discharge Note BRIEF OVERVIEW Admission Date: 10/29/2022 Discharge Date: 10/29/2022 Primary Discharge Diagnosis Final diagnoses: [R56.9] Spells Neurological (HCC) [N18.6] Failure Renal End Stage (HCC) Discharge Disposition Salbador is being discharged to home Outpatient Follow-Up Related to this Admission Follow up with a [facility] provider: Clinic to decide Test Results Pending at Discharge Pending Labs Order Current Status HBc Total Ab Scrn, S Collected (10/29/22816) HBs Antibody Scrn, S Collected (10/29/22816) HBs Antigen Scrn, S Collected (10/29/22816) HCV Ab w/Reflex to HCV PCR, Serum Collected (10/29/22816) Patient education Discharge instructions given. All questions answered to the best of my ability Condition at Discharge Stable DETAILS OF OBSERVATION STAY Observation Course Patient was admitted to the observation unit for dialysis. Dialysis has been complete. He was also evaluated by Neurology with a negative head CT. Georgia Estrada P.A.-C. 10/29/22 1343 documented in this encounter Discharge Instructions * Attachments The following attachments cannot be sent through Care Everywhere. * Chronic Kidney Disease: The Importance of Good Nutrition (Azerbaijani) * Managing Non-Epileptic Seizures Adult (Azerbaijani) documented in this encounter Medications at Time [...] total) by mouth daily. 90 tablet 3 09/03/2022 10/31/2022 traMADoL (ULTRAM) 50 mg tablet Take 25 mg by mouth every 8 (eight) hours as needed for pain. 0 11/14/2022 documented as of this encounter Progress Notes * Heaven Mchugh L.I.C.S.W., M.S.W. - 10/29/2022 2:13 PM CDT SUBJECTIVE RN, Ronnie, contacted social work to assist with return transportation. Social work met with patient in their ED room, N09. Social work introduced self and reviewed role of the ED social studies teacher. Patient reported understanding and was agreeable to this visit. Patient shares that they have exhausted all options. Patient confirmed his address on file and reported feeling comfortable with taking ambulatory transportation. Social work arranged return transportation for patient. Patient reported no further questions and/or concerns at this time and was appreciative of social work's support. OBJECTIVE Emergency Department Social work was consulted to assist with transportation back to patient's residence. Social work ambulatory arranged transportation with [employer]. Patient was observed laying in their hospital bed, on room air. Patient's belonging were next to him to include eyeglasses, keys, and his wallet. Patient is independent with ADL's and able to ambulate without concern. ASSESSMENT / PLAN ASSESSMENT Patient appears alert, oriented x3, engaging, pleasant, and open to social work support. He appearsto be their own decision maker and reliable historian at this time. Patient presented with Ok mood,flat affect, speech is within normal limits for volume, rate, and tone and logical and goal-directed thinking. He did not appear to be in distress and is overall coping adequately at this time. No concerns for SI/HI/SIB. Transport resources were explored and arranged to assist with the patient's needs. The patient appears to have insight into their needs at this time. PLAN 1. [employer] to provide return transportation to patient's residence. 2. Please contact social work if further supportive or dismissal needs arise. Cait Kumar M.S.WJuan C 10/29/2022 * Georgia Estrada P.A.-C. - 10/29/2022 7:13 AM CDT Emergency Department Progress Note Assumed care of the patient. Interval History: Since last evaluation Mr. Justin has had Improvement of his headache. He is in observation awaiting dialysis. The Nephrology fellow has beenconsulted and orders will be placed by the nephrology team. Anticipate discharge after dialysis. Georgia Estrada P.A.-C. 10/29/22 07 documented in this encounter H&P Notes * Sloane Ma M.D. - 10/29/2022 5:40 AM CDT Emergency Department Observation H&P SUBJECTIVE CHIEF COMPLAINT/ REASON FOR VISIT The patient's chief complaint includes: Seizures HISTORY OF PRESENT ILLNESS Mr. Justin is a 37 y.o. male who presents with headache and weakness after 3 seizure episodes. Refer to the Emergency Department History & Physical for further documentation in support of observation status. OBJECTIVE VITAL SIGNS Temperature: 36.6 ??C Heart Rate: 88 Resp Rate: 12 Blood Pressure: 143/83 SpO2: 98 % Weight: 63.2 kg DIAGNOSTICS I have reviewed laboratory, imaging, and other diagnostic studies. Clinically significant abnormal findings are as noted in the chart and emergency department note. ASSESSMENT / PLAN Salbador will need additional care based on his work up and will be admitted as ED observation. OBSERVATION TREATMENT PLAN: Patient to receive dialysis since he is unable to get to his usual dialysis center due to 29 of October closures Sloane aM M.D. Resident 10/29/22 0543 documented in this encounter Consult Notes * Sundeep Barlow M.D. - 10/29/2022 3:53 AM CDTAssociated Order(s): IP CONSULT TO NEUROLOGY SUBJECTIVE REFERRAL RMB C07 CHIEF COMPLAINT / REASON FOR VISIT Spells HISTORY OF PRESENT ILLNESS Salbador Justin is a 37 y.o. male with pertinent past medical history of ESRD on HD, hypertension, who presents for evaluation of spells. He reports a history of epilepsy ever since he was a child diagnosed when he lived in the [facility]. He reportedly had an abnormal EEG at that time and was trialed on an AED but he does notremember which. He states the AED made his episodes worse. He has been having similar episodes eversince. He describes his spells as a feeling of lightheadedness/dizziness where he knows to lay down. He states he would then lose consciousness for an unspecified amount of time. He would then awaken and not be able to move any of his extremities. No post-ictal state noted thereafter. No urinary/bowel inco ntinence. No tongue lacerations or lip biting. He has never injured himself during these episodes. He denies a history of febrile seizures, meningitis/encephalitis, or brain trauma. He notes that hisepisodes are triggered by stress and he is undergoing a stressful time right now and as a result had 3 episodes today. He states that when things are going well, he may only have 1-2 a month. Upon evaluation in the ED his BUN is elevated at 58 in the setting of ESRD on dialysis. WBC of 6.3 and lactate of 0.71. He feels at his baseline currently. He has been evaluated many times in the past for similar findings and imaging/testing at that time has been unrevealing though I do not see an EEG. He is ESRD on dialysis and is due for a treatment today. He states that he feels in need of dialysis today. REVIEW OF SYSTEMS AND HISTORY Per HPI otherwise negative OBJECTIVE PHYSICAL EXAM Vitals: BP 143/83 Pulse 90 Temp 36.7 ??C (Oral) Resp 12 Wt 63.2 kg SpO2 99% BMI 26.31 kg/m?? General: alert, appears stated age, cooperative, and no distress Respiratory: Breathing comfortably on room air Neurological examination: Neurologic: Mental status: Alert and following all commands without issue. Speech: Clear. Language: No evidence of aphasia. Cranial nerves: PERRL, EOMI, visual jolley intact to confrontation, facial movements full and symmetric, sensation intact to light touch in the V1-V3 distributions, hearing intact to voice, tongue protrudes in midline, there is equal elevation of the soft palate, shoulder shrug is appropriate in strength. Motor: No pronator drift. No lower extremity drift Tone is normal in bilateral upper and lower extremities. Sensory: Sensation is intact to light touch of distal extremities bilaterally. Reflexes: biceps (0,0), triceps (0,0), brachioradialis (0,0), patellar (0,0) and Achilles (0,0). Plantar flexor responses are flexor-flexor. Coordination: Finger to nose and heel to cueva are normal bilaterally. DATA I have reviewed all relevant diagnostics. ASSESSMENT / PLAN IMPRESSION #Spells undifferentiated #ESRD on HD #Hypertension Salbador Justin is a 37 y.o. male with pertinent past medical history of ESRD on HD, hypertension, who presents for evaluation of spells. He has been seen for spells both by neurology at [facility] as well as by HIM here. I agree with their assessment that it is not convincing for seizure. Labs are also not revealing for a seizure with anormal lactate and WBC. He reportedly has an abnormal EEG that he does not have the records of. AEDwas reportedly trialed but made things worse. Fortunately now he is at his baseline and he has a normal neurologic examination. I think given an unconvincing picture for seizures, I do not think there is an indication to start AEDs at this time. As he has been evaluated many times for these spells,I think an outpatient evaluation would be prudent. I have ordered an outpatient routine EEG and neur ology. For completeness, a head CT can be obtained. Decisions regarding dialysis and other systemic treatment per ED team. No further neurologic work-up needed in the ED. RECOMMENDATIONS -Head CT non contrast -No indications for AEDs at this time -Routine EEG with outpatient neurology follow-up Thank you for this consult. This is an Emergency Neurology Consult note. Please contact [phone] for any questions. documented in this encounter ED Notes * Yecenia Sanchez M.D., M.S. - 10/29/2022 4:22 AM CDT I have personally seen and examined this patient. I have fully participated in the care of this patient. I have reviewed all clinical information including history, physical exam, orders, and plan. Iagree with the note of the resident. Patient is a 37-year-old male with ESRD due to HTN on hemodialysis via left arteriovenous fistula, h/o CHF with preserved EF due to HTN, coronary artery disease, status post STEMI 2015, and no neurogenic spells who presents to the emergency department with concerns of 3 episodes of possible seizures today. Patient reports he usually has only 2 seizures a month however he had 3 episodes today. Wasnormal in between seizure episodes. He denies having any new symptoms for an infection. He does not take any antiepileptics, denies alcohol, or skipping as normal sleep schedule. General blood work was reassuring, neurology evaluate him in the emergency department and at this time they do not recommend starting anti epileptics. He had normal white blood count, normal lactate.Normal potassium 5.1, normal bicarb 25 anion gap 15, phosphorus 4.5. Neurology thinks this could represents nonepileptic spells and recommended outpatient evaluation with Neurology for further follow-up. They do not think an imaging or electroencephalogram is necessary tonight. Patient also is concerned about having dialysis today 10/29/2022. He reports he gets dialysis in [place] however the dialysis center does not have appointments for him to have a dialysis today andhe also has difficulty with transportation. We discussed the case with social work to try to help with transportation from the ED to his home in [place] as well as from his home to the dialysis center however at this time facilitating this transportation and trying to find an opening in the dialysis center is not possible. We discussed the case with nephrology vendor management consultant who agreed for dialysis in the ED observation unit. The room North 9 will be used for dialysis. The patient can be dismissed home after dialysis today. Final Diagnoses: as of 10/29/22626 Spells Neurological (HCC) Failure Renal End Stage (HCC) Yecenia Sanchez M.D., M.S. 10/29/22626 * Sloane Ma M.D. - 10/29/2022 2:04 AM CDT SUBJECTIVE CHIEF COMPLAINT/REASON FOR VISIT Seizures HISTORY OF PRESENT ILLNESS Mr. Justin is a 37-year old male with hx of ESRD on dialysis and self-reported epilepsy who presents with weakness and headache after 3 seizures today. Right before seizure onset, he had fading vision and then felt like he passes out. He has had headaches with 8/10 pain since the first seizure and felt lightheaded and nauseous. He says that the seizures were the same as the ones he has had in the past. He says that he typically has around 2 of these episodes per month but had 3 this afternoon. He says that he took antiepileptic medications for a few months last year but stopped when they were ineffective. He has been on dialysis for 5 years and states that he has had fluid issues for the past 2 weeks. He needed extra dialysis last Friday and Friday, and has an appointment tomorrow that he is concerned he won't be able to make because of lack of transportation during the holiday. He denies use of alcohol or any substances. 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 Respiratory: Negative for chest tightness. Gastrointestinal: Positive for nausea. Negative for abdominal pain, constipation, diarrhea and vomiting. Neurological: Positive for seizures, weakness, light-headedness and headaches. OBJECTIVE Initial Vitals Temperature 10/29/22123 36.7 ??C Pulse Rate 10/29/22123 103 Heart Rate 07/04/23 0124 103 Resp Rate 10/29/22 0124 12 Blood Pressure 10/29/22123 (!) 152/92 SpO2 10/29/22123 100 % Pain Score 10/29/22124 10 - Worst possible pain PHYSICAL EXAMINATION Constitutional: Vitals reviewed. HENT: Head: Normocephalic. Mouth/Throat: Mucous membranes are moist. Cardiovascular: Tachycardia present. Murmur heard.Edema:Right lower extremity: 1+. Left lower extremity: 1+. Abdominal: Soft. Bowel sounds are normal. Neurological: Alert and oriented to person, place, and time. Psychiatric: He has a normal mood and affect. Behavior is normal. Judgment and thought content normal. ASSESSMENT/PLAN Assessment and Plan Mr. Justin is a 37 year old male who presented with headache and weakness after 3 neurological spells today of fading vision and feeling like passing out. Patient was given acetaminophen and IM droperidol for headache pain management. Lactate was normal and EKG unremarkable. Neurology was consulted about the episodes, likely scheduling outpatient appointment. Patient put in ED Obs, goal to receive dialysis here as he is unable to get to his usual dialysis center today due to 29 of October closures. . Final Diagnoses: as of 10/29/22 0517 Spells Neurological (HCC) Failure Renal End Stage (HCC) Sloane Ma M.D. Resident 10/29/22 9815 documented in this encounter Plan of Treatment Scheduled Orders Name Type Priority Associated Diagnoses Orde r Schedule Hemodialysis 10/29/2022 Dialysis Routine Onc e for 1 Occurrences starting 10/29/2022 until 10/29/2022 Scheduled Referrals Name Type Priority Associated Diagnoses Orde r Schedule POST ED VISIT Neurology Outpatient Referral Routine Spells Undifferentiated Expected: 10/29/2022 (Approximate), Expires: 01/30/2024 documented as of this encounter Procedures Procedure Name Priority Date/Time Associated Diagnosis Comments CT HEAD WITHOUT IV CONTRAST RAD - Semiurgent (Fast; most ED patients; some inpatients) 10/29/2022 12:47 PM CDT HBS ANTIGEN SCRN, S Routine 10/29/2022 8:17 AM CDT HBC TOTAL AB SCRN, S Routine 10/29/2022 8:17 AM CDT HBS ANTIBODY SCRN, S Routine 10/29/2022 8:17 AM CDT HCV AB W/REFLEX TO HCV PCR, S Routine 10/29/2022 8:17 AM CDT LACTATE, POCT, B STAT 10/29/2022 4:22 AM CDT PHOSPHORUS (INORGANIC), S STAT 10/29/2022 3:24 AM CDT MAGNESIUM, S STAT 10/29/2022 3:24 AM CDT ECG Routine 10/29/2022 3:05 AM CDT CBC WITHOUT DIFFERENTIAL, B STAT 10/29/2022 1:40 AM CDT BASIC METABOLIC PANEL, S/P STAT 10/29/2022 1:40 AM CDT documented in this encounter Results * EEG [...] Sundeep Barlow M.D. NEUROLOGY ORDERABLES MMODAL NA * CT Head without IV Contrast (10/29/2022 12:47 PM CDT) Anatomical Region Laterality Modality Head, Neuroradiology RST LOS , Neuroradiology ARZ LOS, Neuroradiology FLA LOS N/A Computed Tomography, Compute d Tomography 10/29/2022 12:4 7 PM CDT Impressions 10/29/2022 1:02 PM CDT No acute intracranial findings. Narrative 10/29/2022 1:02 PM CDT EXAM: CT HEAD WITHOUT IV CONTRAST COMPARISON: CT head 10/08/2022. FINDINGS: No acute intracranial hemorrhage, mass effect, or infarct. Similar presumably chronic small vessel changes patchy white matter low attenuation right greater than left centrum semiovale. Trace mucosal thickening about paranasal sinuses. Underpneumatized bilateral mastoid air cells. 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 Procedure Note Radha Casillas M.D., M.B.A. - 10/29/2022 EXAM: CT HEAD WITHOUT IV CONTRAST COMPARISON: CT head 10/08/2022. FINDINGS: No acute intracranial hemorrhage, mass effect, or infarct.Similar presumably chronic small vessel changes patchy white matter low attenuation right greaterthan left centrum semiovale. Trace mucosal thickening about paranasal sinuses. Underpneumatizedbilateral mastoid air cells. 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 IMPRESSION: No acute intracranial findings. Georgia Estrada P.A.-C., M.S. IMG CT DE OCEDURES * HBs Antigen Scrn, S (10/29/2022 8:17 AM CDT) HBs Antigen Scrn, S Negative Negative 10/30/2022 11:22 AM CDT [facility] Blood (Blood, Venous) 10/29/2022 8:17 AM CDT 10/30/2022 7:31 AM CDT Jennifer Chaney M.D., Ph.D. LAB MICROBIOL OGY - BLOOD ORDERABLES [facility] [address] [place] [address] [facility] [address] [place] [address] * HCV Ab w/Reflex to HCV PCR, Serum (10/29/2022 8:17 AM CDT) HCV Ab, S Negative Negative 10/30/2022 11:39 AM CDT [facility] Comment:Hxlpbl-nw-bgrpct rat io is <1.00. Blood (Blood, Venous) 10/29/2022 8:17 AM CDT 10/30/2022 7:31 AM CDT Jennifer Chaney M.D., Ph.D. LAB MICROBIOL OGY - BLOOD ORDERABLES Performing Organization Address [facility] de Phone Number [facility] [address] [place] [address] [place] [address] * HBs Antibody Scrn, Serum (10/29/2022 8:17 AM CDT) HBs Antibody Scrn, S CANCELED 04/08/2023 11:02 AM MERCHANDISE FLOW MANAGER [facility] Comment: REVISED RESULTS This result was cancelled. Report is cancelled due to a vendor reagent quality issue. Retesting of a new specimen is recommended if clinically indicated. ----PREVIOUSLY REPORTED ---- Positive Patient is considered to be immune to infection with HBV., Flagged as: Normal (Reported 10/30/2022 11:40) HBs Antibody, Quantitative, S CANCELED mIU/mL 04/08/2023 11:02 AM MERCHANDISE FLOW MANAGER [facility] Comment: REVISED RESULTS ----PREVIOUSLY REPORTED ---- 16.5, Flagged as: N/A (Reported 10/30/2022 11:40) Blood (Blood, Venous) 10/29/2022 8:17 AM CDT 10/30/2022 7:31 AM CDT Jennifer Chaney M.D., Ph.D. LAB MICROBIOL OGY - BLOOD ORDERABLES Performing Organization Address [facility] de Phone Number [facility] [address] [place] [address] [facility] [address] [place] [address] * HBc Total Ab Scrn, S (10/29/2022 8:17 AM CDT) Pathologist [facility] HBc Total Ab Scrn, S Negative Negative 10/30/2022 11:39 AM CDT [facility] Blood (Blood, Venous) 10/29/2022 8:17 AM CDT 10/30/2022 7:31 AM CDT Jennifer hCaney M.D., Ph.D. LAB MICROBIOL OGY - BLOOD ORDERABLES Performing Organization Address [facility] de Phone Number [facility] [address] [place] [address] [facility] [address] [place] [address] * Lactate, POCT (10/29/2022 4:22 AM CDT) Pathologist [facility] Lactate, POCT 0.71 0.50 - 2.20 mmol/L 10/29/2022 6:17 AM CDT [facility] Blood (Blood, Venous) 10/29/2022 4:22 AM CDT 10/29/2022 4:22 AM CDT Sloane Ma M.D. LAB POCT ORDERABLES - DEVICE Performing Organization Address [facility] de Phone Number [facility] [address] [place] [address], [facility] P[facility] [address] [place] [address] * Phosphorus Inorganic (10/29/2022 3:24 AM CDT) Phosphorus (Inorganic), S 4.5 2.5 - 4.5 mg/dL 10/29/2022 3:57 AM CDT [facility] Blood (Blood, Venous) 10/29/2022 3:24 AM CDT 10/29/2022 3:45 AM CDT Carlos Canseco M.D. LAB BLOOD ADD-ON Performing Organization Address City/[facility]/ZIP Co de Phone Number [facility] [address] [place] [address], [facility] [address] [place] [address] * (ABNORMAL) Magnesium (10/29/2022 3:24 AM CDT) Pathologist [facility] Magnesium, S 2.7(H) 1.7 - 2.3 mg/dL 10/29/2022 3:57 AM CDT [facility] Blood (Blood, Venous) 10/29/2022 3:24 AM CDT 10/29/2022 3:45 AM CDT Carlos Canseco M.D. LAB BLOOD ADD-ON Performing Organization Address [facility] de Phone Number [facility] [address] [place] [address], [facility] [address] [place] [address] * ECG 12 Lead (10/29/2022 3:05 AM CDT) Pathologist [facility] Ventricular Rate ECG/Min 101 BPM MUSE DE Interval 152 ms MUSE QRSD Interval 106 ms MUSE QT Interval 346 ms MUSE QTC Interval 448 ms MUSE P [place] 58 degrees MUSE R [place] 77 degrees MUSE T Wave [place] 58 degrees MUSE 10/29/2022 3:05 AM CDT 10/29/2022 1:38 PM CDT Impressions MUSE - 10/29/2022 3:12 AM CDT Sinus tachycardia Minimal voltage criteria for LVH, may be normal variant ST elevation in Anteroseptal leads When compared with ECG of 19-OCT-2022 03:56, Nonspecific T wave abnormality now evident in High Lateral leads Reviewed by ELENA Castellano Narrative Procedure Note Buddy Hinojosa M.D. - 10/29/2022 IMPRESSION: Sinus tachycardia Minimal voltage criteria for LVH, may be normal variant ST elevation in Anteroseptal leads When compared with ECG of 19-OCT-2022 03:56, Nonspecific T wave abnormality now evident in High Lateral leads Reviewed by ELENA Castellano Carlos Canseco M.D. ECG ORDERABLES MUSE NA * (ABNORMAL) Basic Metabolic Panel (10/29/2022 1:40 AM CDT) [facility] Potassium, P 5.1 3.6 - 5.2 mmol/L 10/29/2022 2:39 AM CDT DTL Sodium, P 139 135 - 145 mmol/L 10/29/2022 2:39 AM CDT DTL Chloride, P 99 98 - 107 mmol/L 10/29/2022 2:39 AM CDT DTL Bicarbonate, P 25 22 - 29 mmol/L 10/29/2022 2:39 AM CDT DTL Anion Gap, P 15 7 - 15 10/29/2022 2:39 AM CDT DTL BUN (Blood Urea Nitrogen), P 58(H) 8 - 24 mg/dL 10/29/2022 2:39 AM CDT DTL Creatinine 17.43(H) 0.74 - 1.35 mg/dL 10/29/2022 2:39 AM CDT DTL Estimated GFR (eGFR) <15(L) >=60 mL/min/BSA 10/29/2022 2:39 AM CDT DTL Comment: Estimated GFR calculated using the 2020 CKD_EPI creatinine equation. Calcium, Total, P 10.5(H) 8.6 - 10.0 mg/dL 10/29/2022 2:39 AM CDT DTL Glucose, P 114 70 - 140 mg/dL 10/29/2022 2:39 AM CDT DTL Blood (Blood, Venous) 10/29/2022 1:40 AM CDT 10/29/2022 2:10 AM CDT Sloane Ma M.D. LAB BLOOD ADD-ON [facility] [address] [place] [address], [facility] DTL [facility] [address] [place] [address] * (ABNORMAL) CBC without Differential (10/29/2022 1:40 AM CDT) Hemoglobin 12.7(L) 13.2 - 16.6 g/dL 10/29/2022 1:49 AM CDT STMA Hematocrit 40.8 38.3 - 48.6 % 10/29/2022 1:49 AM CDT STMA Erythrocytes 4.60 4.35 - 5.65 x10(12)/L 10/29/2022 1:49 AM CDT STMA MCV 88.7 78.2 - 97.9 fL 10/29/2022 1:49 AM CDT STMA RBC Distrib Width 14.7(H) 11.8 - 14.5 % 10/29/2022 1:49 AM CDT STMA Platelet Count 358(H) 135 - 317 x10(9)/L 10/29/2022 1:49 AM CDT STMA Leukocytes 6.3 3.4 - 9.6 x10(9)/L 10/29/2022 1:49 AM CDT STMA Blood (Blood, Venous) 10/29/2022 1:40 AM CDT 10/29/2022 1:45 AM CDT Sloane Ma M.D. 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 documented in this encounter Administered Medications Inactive Administered Medications - up to 3 most recent administrations Medication Order MAR Action Action Date Dose Rate Site acetaminophen tablet 1,000 mg (TYLENOL) 1,000 mg, oral, Once, On Fri10/29/22 at 0236, For 1 dose Given 10/29/2022 3:06 AM CDT 1,000 mg amLODIPine tablet 10 mg (NORVASC) 10 mg, oral, Daily, First dose on Fri10/29/22 at 0900 Given 10/29/2022 12:07 PM CDT 10 mg droPERidoL injection 1.875 mg (INAPSINE) 1.875 mg, intramuscular, Once, On Fri10/29/22 at 0438, For 1 dose Given 10/29/2022 5:03 AM CDT 1.875 mg Right Deltoid hydrALAZINE tablet 50 mg (APRESOLINE) 50 mg, oral, 2 times daily, First dose on Fri10/29/22 at 0900 Given 10/29/2022 12:08 PM CDT 50 mg lidocaine 10 mg/mL (1 %) injection 0.2 mL (XYLOCAINE) 0.2 mL, intradermal, As needed, needle insertion, Starting on Fri10/29/22 at 0808, Dialysis, As needed with needle insertion for each cannulation. Dialysis order only. LORazepam tablet 0.5 mg (ATIVAN) 0.5 mg, oral, Once, On Fri10/29/22 at 0812, For 1 dose Given 10/29/2022 8:19 AM CDT 0.5 mg minoxidiL tablet 10 mg (LONITEN) 10 mg, oral, Daily, First dose on Fri10/29/22 at 0900 Given 10/29/2022 12:08 PM CDT 10 mg NaCl 0.9 % bolus 100 mL 100 mL, intravenous, at 100 mL/hr, Administer over 1 Hours, As needed, low blood pressure, see comments, Starting on Fri10/29/22 at 0808, For 5 doses, Dialysis, Administer as fast as possible. May repeat x 4 for a total volume of 500 mL for symptomatic hypotension during dialysis. Notify Service if symptomatic hypotension persists after blood pressure support interventions were implemented. New Bag 10/29/2022 8:12 AM CDT 250 mL 100 mL/hr pantoprazole DR tablet 40 mg (PROTONIX) 40 mg, oral, Daily before breakfast, First dose on Fri10/29/22 at 0700, pantoprazole 40 mg oral daily was interchanged for omeprazole 20 or 40 mg oral daily Swallow whole. Do NOT crush, chew, or split tablet. Given 10/29/2022 12:11 PM CDT 40 mg sodium chloride 0.9 % flush 1-100 mL 1-100 mL, intravenous, As needed, line care, Starting on Fri10/29/22 at 0808, Dialysis, For anticoagulation line to maintain patency of dialysis circuit. sodium chloride 0.9 % flush 1-250 mL 1-250 mL, intravenous, As needed, line care, For priming and rinse back post dialysis, Starting on Fri10/29/22 at 0808, Dialysis, Dialysis order only. sodium chloride 0.9 % injection 10-60 mL 10-60 mL, intravenous, As needed, line care, To maintain line patency, Starting on Fri10/29/22 at 0808, Dialysis Given 10/29/2022 8:12 AM CDT 40 mL torsemide tablet 100 mg (DEMADEX) 100 mg, oral, Daily, First dose on Fri10/29/22 at 0900 Given 10/29/2022 12:08 PM CDT 100 mg documented in this encounter Active and Recently Administered Medications Times are shown in CDT. Scheduled Medication Order 10/27/2022 10/28/2022 10/29/2022 acetaminophen tablet 1,000 mg (TYLENOL) (COMPLETED) 1,000 mg, oral, Once, On Fri10/29/22 at 0236, For 1 dose 0306 (Given - Provid er: Kenny Delgado RPenny) amLODIPine tablet 10 mg (NORVASC) 10 mg, oral, Daily, First dose on Fri10/29/22 at 0900 1207 (Given - Provid er: Kylah Lockwood RPenny, CCRN - Comment: Held for dialysis) calcium acetate(phosphat bind) capsule 1,334 mg (PHOSLO) 1,334 mg, oral, 3 times daily with meals, First dose on Fri10/29/22 at 0800, 667 mg calcium acetate contains 169 mg of elemental calcium 0800 (Due)1309 (Not Given - Provider: Gene Blackwell R.N. - Reason: Medication not available) droPERidoL injection 1.875 mg (INAPSINE) (COMPLETED) 1.875 mg, intramuscular, Once, On Fri10/29/22 at 0438, For 1 dose 0503 (Given - Provid er: Kenny Delgado R.N.) hydrALAZINE tablet 50 mg (APRESOLINE) 50 mg, oral, 2 times daily, First dose on Fri10/29/22 at 0900 1208 (Given - Provid er: Kylah Lockwood R.N., CCRN - Comment: Held for dialysis) LORazepam tablet 0.5 mg (ATIVAN) (COMPLETED) 0.5 mg, oral, Once, On Fri10/29/22 at 0812, For 1 dose 0819 (Given - Provid er: Gene Blackwell RJuan CN.) minoxidiL tablet 10 mg (LONITEN) 10 mg, oral, Daily, First dose on Fri10/29/22 at 0900 1208 (Given - Provid er: Kylah Lockwood R.N., CCRN - Comment: Held for dialysis) pantoprazole DR tablet 40 mg (PROTONIX) 40 mg, oral, Daily before breakfast, First dose on Fri10/29/22 at 0700, pantoprazole 40 mg oral daily was interchanged for omeprazole 20 or 40 mg oral daily Swallow whole. Do NOT crush, chew, or split tablet. 1211 (Given - Provid er: Kylah Lockwood R.N., CCRN) torsemide tablet 100 mg (DEMADEX) 100 mg, oral, Daily, First dose on Fri10/29/22 at 0900 1208 (Given - Provid er: Kylah Lockwood R.N., CCRN - Comment: Held for dialysis) PRN Medication Order 10/27/2022 10/28/2022 10/29/2022 lidocaine 10 mg/mL (1 %) injection 0.2 mL (XYLOCAINE) 0.2 mL, intradermal, As needed, needle insertion, Starting on Fri10/29/22 at 0808, Dialysis, As needed with needle insertion for each cannulation. Dialysis order only. NaCl 0.9 % bolus 100 mL 100 mL, intravenous, at 100 mL/hr, Administer over 1 Hours, As needed, low blood pressure, see comments, Starting on Fri10/29/22 at 0808, For 5 doses, Dialysis, Administer as fast as possible. May repeat x 4 for a total volume of 500 mL for symptomatic hypotension during dialysis. Notify Service if symptomatic hypotension persists after blood pressure support interventions were implemented. 0812 (New Bag - Prov ider: Rustam Coughlin R.N.)0920 (Stopped - Provider: Gene Blackwell R.N.) sodium chloride 0.9 % flush 1-100 mL 1-100 mL, intravenous, As needed, line care, Starting on Fri10/29/22 at 0808, Dialysis, For anticoagulation line to maintain patency of dialysis circuit. sodium chloride 0.9 % flush 1-250 mL 1-250 mL, intravenous, As needed, line care, For priming and rinse back post dialysis, Starting on Fri10/29/22 at 0808, Dialysis, Dialysis order only. sodium chloride 0.9 % injection 10-60 mL 10-60 mL, intravenous, As needed, line care, To maintain line patency, Starting on Fri10/29/22 at 0808, Dialysis 0812 (Given - Provid er: Rustam Coughlin R.N.) documented in this encounter Care Teams Clinical Trials Assistant Relationship Specialty Start Date End Date None Reported, Pcp PCP - General Family Medicine 07/28/22 02/03/23 documented as of this encounter
--- OUTSIDE RECORDS SUMMARY | 2023-05-08 16:25 | XMS_ITS | Encounter Summary ---
Author Name Unknown Organization [facility] Address [address] [place] [address] Care Team Providers Care Dough Brake Machine Operator Name Role Phone None Reported, Pcp Primary Care Provider Unavail able Reason for Visit * Outpatient (Routine) - Authorized Specialty Diagnoses / Procedures Referred By Mel t Referred To Contact Diagnoses Pain Chest Procedures NM Cardiac Perfusion Rest and Stress SPECT Drew Mo APRN C.N.P., M.S.N. [address] [place] [phone] [facility] Region Referral ID Status Reason Start Date Expiration Date V isits Requested Visits Authorized [id number] Authorized 07/11/2022 07/11/2023 6 6 Encounter Details Date Type Department Care Team (Latest Contact Info) Description 11/04/2022 8:28 AM CDT - 11/04/2022 9:46 AM CDT Hospital Encounter Department of Radiology in [place], [place] [address] [place] [id number] Drew Mo APRN, C.N.P., M.S.N. [address] [place] [phone] Discharge Disposition: Home or Self Care Social [...] your living situation today? I have a [facility] place to live 11/02/2022 Sex and [...] AM CDT) 11/04/2022 9:48 AM CDT Narrative CV MERGE - 11/04/2022 3:34 PM CDT See PDF For Result Procedure Note Rito Solomon M.D. - 11/04/2022 See PDF For Result Drew Mo APRN, C.N.P., M.S.N. [facility] P ROCEDURES [employer] NA documented in this encounter Visit Diagnoses Not on filedocumented in this encounter Care Teams Dough Brake Machine Operator Relationship Specialty Start Date End Date None Reported, Pcp PCP - General Family Medicine 07/28/22 02/03/23 documented as of this encounter
--- OUTSIDE RECORDS SUMMARY | 2023-05-08 16:25 | XMS_ITS | Encounter Summary ---
Author Name Unknown Organization [facility] Address [address] [place] [address] Care Team Providers Care Newspaper Writer Name Role Phone None Reported, Pcp Primary Care Provider Unavail able Encounter Details Date Type Department Care Team ([facility] st Contact Info) Description 12/10/2022 Orders Only Division of Nephrology and Hypertension, [facility], in [place], [place] [address] [place] [phone] Drew Mo, HALLE, C.N.P., M.S.N. [address] [place] [address] Social History Tobacco Use Types Packs/Day Years [...] your living situation today? I have a [facility] to live 11/14/2022 Sex and Gender Information Value Date Recorded Sex Assigned at Male 11/14/2022 11:03 AM CDT Gender Identity Male 11/14/2022 11:03 AM CDT Sexual Orientation Straight 11/14/2022 11 :03 AM CDT documented as of this encounter Plan of Treatment Not on file documented as of this encounter Visit Diagnoses Not on filedocumented in this encounter Care Teams Newspaper Writer Relationship Specialty Start Date End Date None Reported, Pcp PCP - General Family Medicine 07/28/22 02/03/23 documented as of this encounter
--- OUTSIDE RECORDS SUMMARY | 2023-05-08 16:26 | XMS_ITS | Encounter Summary ---
Author Name Unknown Organization [facility] Address [address] [place] [address] Care Team Providers Care Audio Video Tech Name Role Phone None Reported, Pcp Primary Care Provider Unavail able Encounter Details Date Type Department Care Team (Late st Contact Info) Description 10/08/2022 Orders Only Division of Nephrology and Hypertension in [place], [place] [address] [place] [address] Mimi Springer M.D. [address] [place] [address] Social History Tobacco Use Types Packs/Day Years Used Date Smoking Tobacco: Never Smokeless Tobacco: Never Alcohol Use Standard [...] on filedocumented in this encounter Care Teams Audio Video Tech Relationship Specialty Start Date End Date None Reported, Pcp PCP - General Family Medicine 07/28/22 02/03/23 documented as of this encounter
--- OUTSIDE RECORDS SUMMARY | 2023-05-08 16:26 | XMS_ITS | Encounter Summary ---
Author Name Unknown Organization [facility] Address [address] [place] [address] Care Team Providers Care Cloth Stock Sorter Name Role Phone None Reported, Pcp Primary Care Provider Unavail able Encounter Details Date Type Department Care Team (Late st Contact Info) Description 09/05/2022 Orders Only Division of Nephrology and Hypertension in [place], [place] [address] [place] [address] Concetta Mejía M.D., Ph.D. [address] [place] [address] Social History Tobacco Use Types Packs/Day Years [...] on filedocumented in this encounter Care Teams Cloth Stock Sorter Relationship Specialty Start Date End Date None Reported, Pcp PCP - General Family Medicine 07/28/22 02/03/23 documented as of this encounter
--- OUTSIDE RECORDS SUMMARY | 2023-05-08 16:26 | XMS_ITS | Encounter Summary ---
Author Name Unknown Organization [facility] Address [address] [place] [address] Care Team Providers Care Pediatric Pathologist Name Role Phone None Reported, Pcp Primary Care Provider Unavail able Encounter Details Date Type Department Care Team (Late st Contact Info) Description 10/15/2022 Orders Only Division of Nephrology and Hypertension, [facility], in [place], [place] [address] [place] [address] Drew Mo, HALLE, C.N.P., M.S.N. [address] [place] [address] Social History Tobacco Use Types Packs/Day Years [...] on filedocumented in this encounter Care Teams Pediatric Pathologist Relationship Specialty Start Date End Date None Reported, Pcp PCP - General Family Medicine 07/28/22 02/03/23 documented as of this encounter
--- OUTSIDE RECORDS SUMMARY | 2023-05-08 16:26 | XMS_ITS | Encounter Summary ---
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 [address] [place] [address] [phone] Johnnie Castillo M.D. [address] [place] [phone] Pain Chest (Primary Dx); Dyspnea; Failure Renal End Stage (HCC) Discharge Disposition: [...] Sign Reading Time Taken Comments Blood Pressure 130/71 10/20/2022 11:30 AM CDT Pulse 71 10/20/2022 11:30 AM CDT Temperature 36.6 ??C (97.9 ??F) 10/20/2022 11:30 AM C DT Respiratory Rate 17 10/20/2022 8:05 AM CDT Oxygen Saturation 98% 10/20/2022 11:30 AM CDT Inhaled Oxygen Concentration - - Weight 63.2 kg (139 lb 5.3 oz) 10/20/2022 11:30 AM CDT Height 155 cm (5' 1.02) 10/20/2022 7:14 AM CDT Body Mass Index 26.31 10/20/2022 7:14 AM CDT documented in this encounter Discharge Summaries * Chan Casanova APRN, C.N.P., D.N.P. - 10/20/2022 12:40 PM CDT DISCHARGE SUMMARY Discharge Provider: Johnnie Castillo M.D. Primary Care Providers: None Reported, Pcp (General) No address on file Discharge Provider Team: [facility] Internal Medicine ([facility]) [facility] Medicine 7 ([facility]) Primary Care Provider Phone Number: None Primary Care Provider Fax Number: None Other Providers: Admission Date: 10/19/2022 Discharge Date: 10/20/2022 PRINCIPAL DIAGNOSIS Pain Chest SECONDARY DIAGNOSES Principal Problem (Resolved): Pain Chest Active Problems: Failure Renal End Stage (HCC) Resolved Problems: Excess Fluid Volume DISCHARGE DISPOSITION Home or Self Care [1] ACTIVE ISSUES REQUIRING FOLLOW UP RECOMMENDATIONS FOR PATIENT: Please continue to follow your dialysis/ cardiac diet. Please continue to keep all dialysis appointments. Please continue to keep your imaging appointments on 11/04/2022. Please continue to keep your appointment with Cardiology on 11/06/2022. OUTPATIENT FOLLOW UP Scheduled Appointments 11/04/2022 9:00 AM NM SEMN MOBILE Radiology 11/04/2022 10:00 AM CARDIOLOGY SUITE OWOC Cardiovascular Disease 11/04/2022 1:30 PM NM SEMN MOBILE Radiology 11/04/2022 2:20 PM LAB 01 OW Laboratory Medicine 11/04/2022 3:15 PM DX OWOC RM 02 Radiology 11/04/2022 4:40 PM LAB 01 OW Laboratory Medicine 11/06/2022 10:30 AM Sergei Ibrahim M.D. Cardiovascular Disease For appointment details refer to your Patient Appointment Guide. TEST RESULTS PENDING AT DISCHARGE Pending Labs Order Current Status HBc Total Ab Scrn, S Collected (10/20/22822) HBs Antibody Scrn, S Collected (10/20/22822) HBs Antigen Scrn, S Collected (10/20/22822) HCV Ab w/Reflex to HCV PCR, Serum Collected (10/20/22822) DETAILS OF HOSPITAL STAY REASON FOR ADMISSION Pain Chest HOSPITAL COURSE Salbador Justin is a 37 y.o. male with h/o CHF with preserved EF due to HTN, ESRD due to HTN on HD via left AVF, STEMI (diagnosed 2016 in [place]), epilepsy(?) who presents to the emergency department withchest pain which the patient related to excess fluid due to recent incomplete dialysis sessions. The patient notes his chest pain is intermittent and lasts for several hours at a time. It is pleuritic and occurs with both exertion and at rest. It began quite abruptly the night prior to presentation and has been constant. It is also associated with a sensation of pressure and dyspnea that is present when he lies flat or on exertion. He estimates he can walk approximately 1 block before feeling increased shortness of breath. He has not taken anything for the pain. He reports that this pain is what occurs when he does not have adequate dialysis. He notes it is normally responsive to dialysis sessions. His last dialysis session was 10/17/2022, which he did not complete as he was fee ling ill due to bronchitis He notes he was previously seen in the ED 10 days prior to this presentation for the same complaints of shortness of breath and chest pain. He had an extensive evaluation including EKG, CT angiography, and transthoracic echocardiography. There were no signs of ACS, PE, or other emergent thoracic pathology. His TTE showed concentric hypertrophy with preserved EF and preserved RV function. His IVC showed normal diameter with normal inspiratory collapse. RVSP estimated at 41 mm Hg. RAP estimated at 5 mm Hg. There were no signs of significant valvular disease. He underwent dialysis session duringthis emergency department visit and his chest pain and shortness of breath completely resolved withthe dialysis session. He was subsequently discharged home with plans to be seen in the outpatient setting by Cardiology on November 06. Of note, he also had an unwitnessed syncopal event that he feels was a seizure. He reports a history of these spells that are typically precluded by a prodrome such as nausea and feeling hot. He denies biting his tongue or bowel or bladder incontinence. He used to be on an unknown medication but nolonger takes it as he felt it was making his seizures worse. At this time the patient notes no sanjuana rns about seizures going forward as he does not actively want this evaluated or medications initiated at this time. Upon presentation to the general care floor the patient noted concerns of shortness of breath and chest pain. Patient noted that it felt as though he had excess fluid on board and felt that he neededa dialysis run. Nephrology was consulted and the patient was taken to dialysis with removal of approximately 2 L of fluid. After dialysis the patient noted that his shortness of breath and chest pressure had almost completely resolved. Since he tolerated dialysis and fluid removal, Nephrology subsequently took the patient back to dialysis the following day for further fluid removal. The patient noted improvement in his symptoms back to baseline after his subsequent run of dialysis. His discharge dry weight was 63.2 kg. On the day of discharge the patient was tolerating a diet well, having bowel movement, minimally voiding (which is his baseline), and mobilizing without difficulty. The patient was subsequently discharged home on 10/20/2022. The patient plans to keep his follow-up appointment with Cardiology on 11/06/2022. CONSULTS ORDERED DURING THIS ADMISSION IP CONSULT TO NEPHROLOGY IP CONSULT TO DIETITIAN IP CONSULT TO CARE MANAGEMENT CONDITION AT DISCHARGE Improved I saw and evaluated Salbador Justin today and provided counseling [id number] at bedside. I personally spent a total 30 minutes in counseling and discussion with the patient and in coordination of care as described above to facilitate the hospital discharge. Discharge instructions were provided to the patient and caregiver(s). MEDICATIONS CHANGED DURING THIS HOSPITAL STAY Current Discharge Medication List Current Discharge Medication List Current Discharge Medication List Current Discharge Medication List CONTINUE these medications which have NOT CHANGED Details amLODIPine (NORVASC) 10 mg tablet Take 1 tablet (10 mg total) by mouth daily. Qty: 90 tablet, Refills: 3 benazepriL (LOTENSIN) 20 mg tablet Take 1 tablet (20 mg total) by mouth 2 (two) times a day. Qty: 180 tablet, Refills: 3 calcium acetate,phosphat bind, (ELIPHOS) 667 mg (169 mg calcium) tablet Take 1,334 mg by mouth 3 (three) times a day with meals. hydrALAZINE (APRESOLINE) 50 mg tablet Take 1 tablet (50 mg total) by mouth 2 (two) times a day. Qty: 180 tablet, Refills: 3 minoxidiL (LONITEN) 10 mg tablet Take 1 tablet (10 mg total) by mouth daily. Qty: 90 tablet, Refills: 3 omeprazole (PriLOSEC) [address] capsule Take 1 capsule (40 mg total) by mouth every morning before breakfast. Qty: 90 capsule, Refills: 3 torsemide (DEMADEX) 100 mg tablet Take 1 tablet (100 mg total) by mouth daily. Qty: 90 tablet, Refills: 3 traMADoL (ULTRAM) 50 mg tablet Take 25 mg by mouth every 8 (eight) hours as needed for pain. documented in this encounter Medications at Time [...] before breakfast. 90 capsule 3 10/15/2022 02/05/2023 torsemide (DEMADEX) 100 mg tablet Take 1 tablet (100 mg total) by mouth daily. 90 tablet 3 09/03/2022 10/31/2022 traMADoL (ULTRAM) 50 mg tablet Take 25 mg by mouth every 8 (eight) hours as needed for pain. 0 11/14/2022 documented as of this encounter Progress Notes * Sara Hernandez M.S.Emelyn. - 10/20/2022 10:43 AM CDT SUBJECTIVE Social work coordinated discharge transportation with [employer] [phone] for a 2:30 pm room belt picker time. OBJECTIVE Patient to discharge home. ASSESSMENT / PLAN ASSESSMENT Patient assessed in dialysis bay #9. It was determined that he qualifies for social work assistance. PLAN -patient to discharge home 10/20/22 Malia Kline. 10/20/22 * Sameer Huggins APRN, C.N.P., M.S.N. - 10/20/2022 7:26 AM CDT NEPHROLOGY CONSULT SERVICE - PROGRESS NOTE Hospital Day 0 SUBJECTIVE I saw Mr. Justin during dialysis today. He is doing well. Denies any further shortness of breath or chest pressure. He is agreeable to have 1 additional L of fluid removed this morning. Reviewed the patient's medications with him, he was not familiar with torsemide. I have reviewed the current medication list. OBJECTIVE Admission weight: 66.5 kg Weights for the past 120 hrs (Last 3 readings): Weight 10/19/22 1429 64.5 kg 10/19/22 1027 66.5 kg 10/19/22 0632 66.5 kg I/O 0610/18 P.O. 320 Continuous Medications 0 Intermittent Medications 250 Total Intake(mL/kg) 570 (8.8) Dialysis 2250 Total Output 2250 Net -1680 Unmeasured Urine Occurrence 2 x VITAL SIGNS Vitals 07/30/22 10/08/22 10/19/22 Pre-Dialysis BP (Calculated) 165/135 150/89 155/104 Post-Dialysis BP (Calculated) 168/81 117/56 Lowest BP of Encounter/Session (Calculated) 123/63 118/66 104/65 Pre-Treatment Weight (kg) 67 kg 66.2 kg 66.5 kg Post-Treatment Weight (kg) 66.6 kg 64.2 kg 64.5 kg Treatment Weight Change (kg) (kg) -0.4 -2 -2 Requested UF Volume (mL) (mL) 750 2250 2250 Total UF Removed (mL) (mL) 750 2208 2250 Treatment Tolerance No Complications No Complications No Complications PHYSICAL EXAM General: Alert, oriented, and answering questions appropriately. Resting in the chair. In no acute distress. Cardiovascular: Regular rate and rhythm. Tachycardic. Respiratory: Respirations unlabored. Clear to auscultation. Breathing on room air. Extremities: No edema present in bilateral lower extremities. Vessels: Left AV fistula is accessed and running at a blood flow rate of 350 ml/minute Hemodialysis AV Access Left AV Fistula (Active) No placement date or time found. 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 Chest x-ray with volume overload. # Hypertension # Renal secondary hyperparathyroidism # Hypercalcemia, improved # Pulmonary vascular congestion, improved Mr. Justin is dialyzing yesterday for 4 hours on a 2 mEq/L potassium and 2.5 mEq/L calcium with lázaro fluid removal of 64.5 kg. His symptoms have improved but he was agreeable to coming this morning for an additional UF only treatment to continue to challenge his weight. He was agreeable to a pull of 1 kg today. His post-HD weight was 63.2 kg using a standing scale. His hypercalcemia has improved to 9.5 today. I discussed with him that he is on both calcitriol andcalcium-based binder, calcium acetate (which he endorses better compliance with as of late, as evidenced by his improved phosphorous level (from 10.4 on 10/10/2022 to 3.4 when checked on 10/19/2022) which may be contributing to the hypercalcemia, but will keep things the same for now and let his primary nephrology providers know of the hypercalcemia, as adjustments may need to be made in the future. Will recommend a new target weight of 63.7 and encourage the nursing staff to continue to challengedown the patient's weight as tolerated. With improvement in his volume status, there may be the opportunity to reduce his antihypertensive regimen, in particular the minoxidil. His next dialysis session will be in the [facility] unit on 10/22/2022. Discharge Recommendations: -- The patient is typically on Epogen 5000 units 3 times a week at dialysis. His last hemoglobin was 13.4 so this could be held for now. -- Resume Calcitriol 1.5 mcg there times weekly with dialysis. This will be given in the dialysis unit, no order needs to be sent. -- Resume Calcium Acetate 1334 mg PO TID with meals for phosphorus binding. -- Not on a renal vitamin -- will touch base with his outpatient provider team. -- In the outpatient setting, the patient's antihypertensive regimen consists of: Benazepril 20 mg PO twice a day (currently on Lisinopril inpatient), Hydralazine 50 mg PO three times a day, Minoxidil 10 mg PO daily, Amlodipine 10 mg PO daily, Torsemide 100 mg PO daily. Will fax over the patient's discharge summary with medications to update their records. -- The patient dialyzed in the chair today, meeting the requirement to return to his outpatient unit. Mr. Justin's case has been staffed with Dr. Angelia Skelton MD, Nephrology websphere consultant. For questions or concerns, please contact Nephrology A [employer]/PA pager ([phone]). * Isiah Shankar, Pharm.D., R.Ph. - 10/19/2022 10:44 AM CDT Clinical Pharmacist Progress Note: Patient is a 37 y.o. male admitted for chest pain. PMH: CHF with preserved EF due to HTN, ESRD due to HTN on HD via left AVF, [place]), epilepsy(?) not on medications who presents with chest pain. HD schedule is //friday as outpatient Relevant Problems: 1) Recurrent atypical chest pain -Differential diagnosis includes musculoskeletal pain, pericarditis, bronchitis. Other more seriousetiologies have been ruled out such as ACS, PE, dissection, pneumothorax, hypertensive emergency etc. -neph consulted, topical diclofenac gel Home medications either not ordered or held include: PhosLo VTE prophylaxis: Heparin SUBQ Isiah Shankar PharmD, [facility] * Isiah Shankar, Pharm.D., R.Ph. - 10/19/2022 8:21 AM CDT Images from the original note were not included. Admission Medication History Note Prior to Admission Medications Med List Status: Pharmacy Complete Set By: Isiah Shankar, Pharm.D., R.Ph. at 10/19/2022 8:13 AM Status Comment 10/19/2022 8:13 AM Compared to [facility] outpatient pharmacy filling records Taking? Last Dose Informant Start Date End Date LT amLODIPine (NORVASC) 10 mg tablet -- -- 10/15/22 10/15/23 Take 1 tablet (10 mg total) by mouth daily. benazepriL (LOTENSIN) 20 mg tablet -- -- 10/15/22 10/15/23 Take 1 tablet (20 mg total) by mouth 2 (two) times a day. calcium acetate,phosphat bind, (ELIPHOS) 667 mg (169 mg calcium) tablet -- Self -- -- Take 1,334 mg by mouth 3 (three) times a day with meals. hydrALAZINE (APRESOLINE) 50 mg tablet -- -- 05/07/22 05/07/23 Take 1 tablet (50 mg total) by mouth 2 (two) times a day. minoxidiL (LONITEN) 10 mg tablet -- -- 10/15/22 10/15/23 Take 1 tablet (10 mg total) by mouth daily. omeprazole (PriLOSEC) [address] capsule -- -- 10/15/22 10/15/23 Take 1 capsule (40 mg total) by mouth every morning before breakfast. torsemide (DEMADEX) 100 mg tablet -- -- 09/03/22 09/03/23 Take 1 tablet (100 mg total) by mouth daily. traMADoL (ULTRAM) 50 mg tablet -- -- -- -- Take 25 mg by mouth every 8 (eight) hours as needed for pain. documented in this encounter H&P Notes * Charlie Baltazar M.D., Ph.D. - 10/19/2022 5:29 AM CDT [facility] Medicine 7 ([facility]) Admission Note SUBJECTIVE CHIEF COMPLAINT / REASON FOR VISIT Chest pain HISTORY OF PRESENT ILLNESS Salbador Justin is a 37 y.o. male with h/o CHF with preserved EF due to HTN, ESRD due to HTN on HD via left AVF, STEMI (diagnosed 2016 in [place]), epilepsy(?) not on medications who presents with chest pain. He states that this chest pain is intermittent and last for several hours at a time. It is pleuritic and occurs with both exertion and at rest. It began quite abruptly overnight and has been constant. It is also associated with a sensation of pressure and dyspnea that is present when he lies flat or on exertion. He estimates he can walk approximately 1 block before feeling increased shortness of breath. He has not taken anything for the pain. He reports that this pain is what occurs when he does not have adequate dialysis. It is usually responsive to dialysis sessions. His last dialysis session was , which he did not complete as he was feeling ill. He was recently diagnosed with bronchitis. The last time he had this chest pain was approximately 10 days ago when he presented to the ED. he had extensive evaluation including EKG, CT angiography, and transthoracic echocardiography. There were no signs of ACS, PE, or other emergent thoracic pathology. His TTE showed concentric hypertrophy with preserved EF and preserved RV function. His IVC showed normal diameter with normal inspiratory collapse. RVSP estimated at 41 mm Hg. RAP estimated at 5 mm Hg. There were no signs of significant valvular disease. Of note, he also had an unwitnessed syncopal event that he feels was a seizure. He reports a history of these spells that are typically precluded by a prodrome such as nausea and feeling hot. That ishow he fell last night so he lied flat and then briefly lost consciousness. He denies biting his tongue or bowel or bladder incontinence. He used to be on an unknown medication but no longer takes itas he felt it was making seizures worse. In the ED, he has been non-toxic appearing, hemodynamically stable, mildly tachycardic, with otherwise unremarkable vitals. Troponins minimally elevated and less than what they were 10 days ago. Pro-BNP 6 K. CXR consistent with central volume overload and otherwise stable compared to prior. EKG stable aside from slight ST elevation in anteroseptal leads compared to 10-08-22 EKG. Active Home Medications Medication Sig Taking amLODIPine (NORVASC) 10 mg tablet Take 1 tablet (10 mg total) by mouth daily. benazepriL (LOTENSIN) 20 mg tablet Take 1 tablet (20 mg total) by mouth 2 (two) times a day. hydrALAZINE (APRESOLINE) 50 mg tablet Take 1 tablet (50 mg total) by mouth 2 (two) times a day. minoxidiL (LONITEN) 10 mg tablet Take 1 tablet (10 mg total) by mouth daily. omeprazole (PriLOSEC) [address] capsule Take 1 capsule (40 mg total) by mouth every morning before breakfast. torsemide (DEMADEX) 100 mg tablet Take 1 tablet (100 mg total) by mouth daily. traMADoL (ULTRAM) 50 mg tablet Take 25 mg by mouth every 8 (eight) hours as needed for pain. OBJECTIVE VITAL SIGNS Temperature: [36.9 ??C] 36.9 ??C Heart Rate: [111-117] 115 Resp Rate: [15-38] 20 Blood Pressure: (147-176)/(71-94) 147/71 SpO2: [94 %-97 %] 97 % Pulse Rate: [111-118] 115 PHYSICAL EXAMINATION General: well-appearing, in NAD HEENT: NC/AT, eyes EOMI, MMM, neck supple, no scleral icterus Lungs: No increased work of breathing, clear to auscultation Heart: peripheral pulses palpable and regular, 3/6 systolic ejection murmur at LSB, no rubs or gallops Thorax: No focal tenderness Abdomen: Non-distended, non-tender Ext: wwp, no swelling, L AVF with palpable thrill Skin: warm, dry, no rash, no jaundice Neuro: Alert, CN II-XII grossly intact, no focal motor deficits DIAGNOSTICS I have independently reviewed the labs, ECG, xray, diagnostics, and echo from this admission and his prior presentation in the ED. ASSESSMENT / PLAN #1 Atypical Pain Chest # Hypertension # h/o CHF with preserved ejection fraction # ESRD due to HTN Differential diagnosis includes musculoskeletal pain, pericarditis, bronchitis. Other more serious etiologies have been ruled out such as ACS, PE, dissection, pneumothorax, hypertensive emergency etc.. The fact that his chest pain response to hemodialysis suggests that there is an element of central congestion that is contributing to his discomfort. When he was seen by Cardiology on 10/08, they re commended further evaluation as an outpatient for pericarditis versus treating as musculoskeletal pain. I also agree with this assessment. He is pending outpatient evaluation and cardiology clinic including nuclear medicine stress test. In the cardiology note there was some discussion of cardiac MRI to rule out pericarditis. Plan: - topical Voltaren q.i.d. - Continue outpatient hypertension regimen - consult Nephrology for routine dialysis - continue outpatient dialysis regimen - outpatient cardiology evaluation # Spells versus seizures # Syncope # h/o epilepsy The episodes that he describes seem more consistent with psychogenic nonepileptic seizures as they are preceded by a prodrome, not responsive to antiepileptics, and provoked. The episode he had last night was also provoked and unwitnessed. I am not certain that it was a seizure. He would a recent CT head that was unremarkable. Apparently he has had extensive workup for this at outside facilities. Plan: - consider outpatient referral to Neurology - defer initiation of antiepileptic or further inpatient evaluation unless he has witnessed episode Diet: No diet orders on file Tubes/lines: Left AVF VTE prophylaxis: heparin Code status: Prior Baseline Mobility: BMAT Level 4 (Able to stand and walk) Disposition: Home I personally spent a total of 75 minutes providing and coordinating care today. Charlie Baltazar M.D., Ph.D., PGY-4 Fellow, Division of Gastroenterology and Hepatology Pager [phone] 10/19/2022 documented in this encounter Consult Notes * Sameer Huggins, HALLE, C.N.P., M.S.N. - 10/19/2022 1:14 PM CDTAssociated Order(s): Nephrology consult (hospital) NEPHROLOGY CONSULT SERVICE - CONSULT NOTE Hospital Day 0 SUBJECTIVE Nephrology consult (hospital) Referring Provider: Charlie Baltazar M.D., Ph.D. Reason for Consult: ESRD CHIEF COMPLAINT Management of hemodialysis while hospitalized for Failure Renal End Stage (HCC) [N18.6] Pain Chest [R07.9] Dyspnea [R06.00]. HISTORY OF PRESENT ILLNESS Mr. Justin is a 37 y.o. male who has a history of end stage kidney disease secondary to hypertension and has required dialysis since July 2017. In addition, the patient's history is significant for CHF with preserved ejection fraction, hypertension, STEMI in 2016. He has been admitted on 10/19/2022 after presenting to the emergency department with symptoms of chest pain. In addition, the patient may have had an unwitnessed syncopal episode which he felt was potentially a seizure. He had a similar episode on 10/08 when he presented the ED. During this time, he had an extensive evaluation including EKG, CT angiography, and TTE. No evidence of ACS or PE was found. Of note, the echo did show evidence of a tiny anterior pericardial effusion. In the emergency department, he was noted to be hemodynamically stable but mildly tachycardic. Labswere obtained and revealed a sodium of 137, potassium 5.2, CO2 25. His calcium was noted to be elevated at 11.9. Hemoglobin was stable at 13.4, WBC 5.0. Troponins were stable. He had a chest x-ray completed which was consistent with volume overload. An EKG was obtained which was stable. The patient normally dialyzes on a Friday, , and Friday schedule in the [facility] dialysis unit. His last dialysis session was on , 10/17/2022. This was a shortened treatment however due to how the patient was feeling he left early. In total, it appears the patient received about 2.5 hours of dialysis. Post weight was noted to be 66.6 kg. In reviewing his outpatient dialysis records, his lowest post weight over the past month was noted to be 66 kg on 10/03/2022. He normally dialyzes for 4 hours with a 138 sodium, 2 potassium, 2.5 calcium, 36 bicarbonate dialysate at a temperature of 36.5?? C. His estimated dry weight is listed at 67 kg. His dialysis access is a left AV fistula. Medications administered during dialysis include: Epogen 5000 units IV 3 times a week. In addition, he receives Venofer 50 mg IV weekly. He receives calcitriol 1.5 mcg 3 times a week at dialysis. He also takes calcium acetate 1334 mg p.o. t.i.d. with meals for phosphorus binding. Mr. Justin is seen in his room this morning as well as on dialysis. He currently reports that he continues to have some chest pain and shortness of breath. He also has a painful headache. Endorses dyspnea on exertion. Also states that he noted some worsening lower extremity edema over this past week which is not typical for him. He thinks he may be losing some weight, in part to the fact that his apartment is quite hot and he only has a fan for cooling. He continues to make some urine. He tells me that he typically does not tolerate more than 2.5 L of fluid removed per dialysis session as he tends to ???crash?? with this degree of fluid removal. He tells me that his phosphorus has improve d, in part to him receiving his medications and being more compliant with his phosphorus binders. In reviewing his outpatient dialysis records, it appears sometimes he is leaving his dialysis sessions a bit early. REVIEW OF SYSTEMS Pertinent items are noted in HPI; all other review of systems was negative. OBJECTIVE Admission Weight: 66.5 kg Current Weight: 66.5 kg VITAL SIGNS Temperature: [36.6 ??C-36.9 ??C] 36.6 ??C Heart Rate: [81-120] 81 Resp Rate: [14-38] 15 Blood Pressure: (113-176)/(56-104) 131/73 SpO2: [92 %-99 %] 97 % Pulse Rate: [81-121] 81 Intake/Output Summary (Last 24 hours) at 10/19/2022 1314 Last data filed at 10/19/2022 1020 Gross per 24 hour Intake 250 ml Output -- Net 250 ml PHYSICAL EXAM General: Alert, oriented, and answering questions appropriately. Resting in bed. In no acute distress. Cardiovascular: Regular rate and rhythm. Tachycardic. Respiratory: Respirations unlabored. Clear to auscultation. Breathing on room air. Extremities: Trace edema present in bilateral lower extremities. Vessels: Left AV fistula with a good bruit and thrill Hemodialysis AV Access Left AV Fistula (Active) No placement date or time found. 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 Chest x-ray with volume overload. # Hypertension # Renal secondary hyperparathyroidism # Hypercalcemia # Pulmonary vascular congestion (CXR 10/19/2022) # Hepatitis B surveillance Hepatitis B surface antibody had a quantitative value of 33 on 10/08/2022. As Mr. Justin has developed immunity to hepatitis B, per dialysis guidelines, he requires yearly hepatitis B surface antibody monitoring. His most recent hepatitis B surface antigen was negative on 10/08/2022. Mr. Justin is dialyzing today for 4 hours on a 2 mEq/L potassium and 2.5 mEq/L calcium with a goal net fluid removal of 2 liters. He is volume overloaded. His pre-dialysis weight was 66.5 kg. Will attempt to remove approximately 2 liters as tolerates. Did consider bringing him back to dialysis tomorrow for additional UF only fluid optimization, but he is not keen on the idea. Will re-evaluate to tyron carroll. Will need to continue to challenge down the patient's weight. He is noted to have hypercalcemia, calcium 11.4. In the outpatient setting he is on calcitriol 0.5 mcg 3 times weekly as well as calcium acetate 1334 mg t.i.d. with meals. These may be contributing to his hypercalcemia. Although his phosphorus is under better control this month, now noted to be 3.4he may not tolerate a calcium based binder. Of note, when the patient had a echocardiogram on 10/08/2022, there was evidence of a tiny anterior pericardial effusion. In some instances, minoxidil can contribute to the development of pericardial effusions, of it they patient's dry weight can be challenged and blood pressures improve, it might be of benefit to try and wean him off of this medication. Additional Recommendations: -- Obtain a renal function panel daily. Re-assess electrolytes and calcium. -- Diet Adult Cardiovascular Diet with 1500 mL fluid restriction. -- The patient is typically on Epogen 5000 units 3 times a week at dialysis. Nephrology will order and manage this medication. Given that his hemoglobin is 13.4, we will hold off on administering anyESA. -- Calcitriol 1.5 mcg PO with dialysis is administered. Given hypercalcemia, would recommend holding this for now. -- Calcium acetate PO TID with meals for phosphorus binding. If NPO at any time, these can be held.Given normal phosphorous level and hypercalcemia, would recommend holding this for now. May need a non-calcium containing binder. -- Not on a renal vitamin, will ask if he knows why he is not on one. -- In the outpatient setting, the patient's antihypertensive regimen consists of: Benazepril 20 mg PO twice a day (currently on Lisinopril inpatient), Hydralazine 50 mg PO three times a day, Minoxidil 10 mg PO daily, Amlodipine 10 mg PO daily, Torsemide 100 mg PO daily. There is a discrepancy with some of his antihypertensives and what is listed on his outpatient dialysis records, so will seek toclarify this at the time of discharge. -- Standard recommendations: Daily weights Strict intake and output Avoid hypotension, maintain MAP > 65 mmHg Avoid all nephrotoxins if possible (contrast dye, unnecessary antibiotics, NSAIDs) Renally dose all medications for ESKD and dialysis dependence Disposition Planning: -- Please keep Nephrology informed regarding disposition plans as they become known so we can ensure outpatient dialysis needs have been accommodated prior to dismissal. Mr. Justin's case has been staffed with Dr. Angelia Skelton MD, Nephrology websphere consultant. For questions or concerns, please contact Nephrology [facility] [employer] pager ([phone]). Associated attestation - Angelia Skelton M.D. - 10/19/2022 3:44 PM CDT I have seen the patient during dialysis and discussed the plan with Sameer Huggins CNP and I have participated in the saha portions of the service. I agree with the assessment and plan as outlined in his note from 10/19/22. Please refer to the details in the note of Sameer Huggins CNP. Briefly, Salbador Justin is a 37 y.o. male with ESRD in the setting of hypertensive emergency was admitted on 10/19/2022 after presenting with chest pain in the setting of volume overloaded.We plan to dialyze and reduce his dry weight further bellow 66 Kg.He has hypercalcemia and we will make recommendation including holding for now calcitriol and calcium based binders , he may benefit of Sensipar. documented in this encounter ED Notes * Matti Troy P.A.-C. - 10/19/2022 6:25 AM CDT Care of patient transferred to me by Dr. Balderas. Disposition pending admission. VITAL SIGNS BP (!) 166/92 (BP Location: Right arm;Upper, Patient Position: Sitting) Pulse (!) 112 Temp 36.8??C (Oral) Resp 18 Wt 66.5 kg SpO2 96% BMI 27.68 kg/m?? ED Course as of 10/19/22 0710 Sat Oct 19, 2022 0615 Received sign-out from overnight team pending admission for chest pain and need for dialysis 0625 Patient off the floor now. Final Diagnoses: as of 10/19/22 0710 Pain Chest Dyspnea Failure Renal End Stage (HCC) Matti Troy P.A.-C. 10/19/22 0710 * Josselin Balderas M.D., M.S. - 10/19/2022 4:26 AM CDT I have personally seen and examined this patient. I have fully participated in the care of this patient. I have reviewed all clinical information including history, physical exam, orders, and plan. Ana Luisa with the note of the resident. 37 year old male with history of ESRD, hypertension presents to the ED for evaluation of chest pain. Patient states this evening he vomited and had a seizure because it was hot in his apartment. Patient shares around 6:30-7p, he developed chest pain, like someone was stepping on my chest. Patient tried to lay down and sleep, but states he had difficulty because he was short of breath. Patientshares he has CHF and thinks this might be related to that. Patient attends dialysis Friday//Friday; he states he only did about half of his dialysis run because he wasn't feeling well. Hereports he was diagnosed with bronchitis in the ED the day prior, and hadn't started any meds. Patient states he ultimately decided to come in tonight because of the chest pain. He states it is consistent with the normal chest pain he has when he is overloaded with fluid. History sounds concerning for symptoms related to fluid overload. My suspicion that his chest pain is ACS is low. PE is on the differential, and he was tachycardic, but he had essentially the same presentation 10 days ago and had an extensive evaluation at that time including ECG, CT, and a transthoracic echo without evidence of ACS, PE, or other emergent thoracic pathology. We will plan for admission to Medicine for dialysis. If his symptoms persist following dialysis, consideration of a repeat CT should occur to evaluate for pulmonary embolism. Final Diagnoses: as of 10/19/22 0641 Pain Chest Dyspnea Failure Renal End Stage (HCC) Josselin Balderas M.D., M.S. 10/21/22 0235 * FridayMoon R.N. - 10/19/2022 4:17 AM CDT Patient also mentions that he recently was diagnosed with bronchitis and given a prescription. He attempted to get the prescription but was told that it was a weird dose and they had to contact theprovider. He has yet to get the prescription. FridayMoon R.N. 10/19/22 0418 * FridayMoon R.N. - 10/19/2022 4:07 AM CDT Patient here via EMS for midsternal chest pain that does not radiate. Patient states that he is nauseous and did vomit earlier. No diaphoresis or radiation. Patient rates it a 10/10. Patient also complains of a frontal headache and generalized back pain. He states that the headache rates it at a 8/10. He denied and recent injuries or trauma. Back pain he rates an 8/10. He also endorses having hada seizure earlier tonight but denies hitting his head. FridayMoon R.N. 10/19/22 0412 * Marcos Garcia M.D. - 10/19/2022 3:44 AM CDT SUBJECTIVE CHIEF COMPLAINT/REASON FOR VISIT Chest Pain and Vomiting HISTORY OF PRESENT ILLNESS Mr. Justin is a 37-year-old male with a history congestive heart failure, myocardial infarction (2015), end-stage renal disease on dialysis (Friday//Friday), hypertension, seizure disorder, hyperparathyroidism, peptic ulcer disease, anemia, recently diagnosed bronchitis (prescribed antibiotics but not initiated) who presents for nonradiating chest pain. His last dialysis session on was ended 1.5 hours into the run due to not feeling well. Today, he spent most of the day in his apartment, causing him to drink lots of water. He endorses a non-witnessed seizure earlier today with loss of consciousness but without head trauma, loss of bowel or bladder control, or tongue biting. He endorses a history of similar episodes in the past. Later inthe evening, he began to experience 9/10 nonradiating chest pain and pressure as well as bilateral frontal headache with associated nausea. Presented to the ED at the recommendation of his friend. Mr. Justin endorses similar pain in the past due to retaining fluids that is relieved by dialysis. Mr. Justin presented to the ED on 10/08 for a similar episode. Extensive workup at that time withchest x-ray, CT head, CTA chest was unremarkable. History provided by: Patient REVIEW OF SYSTEMS Constitutional: Negative for chills, diaphoresis and fever. HENT: Negative for congestion, rhinorrhea and sore throat. Eyes: Negative for visual disturbance. Respiratory: Positive for shortness of breath. Cardiovascular: Positive for chest pain. Gastrointestinal: Positive for nausea. Negative for abdominal pain, constipation, diarrhea and vomiting. Genitourinary: Negative for frequency, hematuria and urgency. Musculoskeletal: Positive for back pain. Neurological: Positive for seizures and headaches. OBJECTIVE Initial Vitals Temperature 10/19/22 0404 36.9 ??C Pulse Rate 10/19/22 0345 (!) 117 Heart Rate 10/19/22 0345 (!) 117 Resp Rate 10/19/22 0345 (!) 38 Blood Pressure 10/19/22 0400 (!) 162/81 SpO2 10/19/22 0345 97 % Pain Score 10/19/22 0414 8 PHYSICAL EXAMINATION Constitutional: Vitals reviewed. HENT: Mouth/Throat: Mucous membranes are dry. Eyes: EOM are normal. Pupils are equal, round, and reactive to light. Cardiovascular: Regular rhythm and normal heart sounds. Pulmonary/Chest: Tachypnea noted. He has wheezes. Abdominal: Bowel sounds are normal. exhibits no distension and no mass. There is no abdominal tenderness. There is no rebound and no guarding. No hernia. Musculoskeletal: General: No tenderness, deformity or edema. Skin: Skin is warm and dry. He is not diaphoretic. Psychiatric: He has a normal mood and affect. Behavior is normal. Judgment and thought content normal. ASSESSMENT/PLAN Assessment and Plan Mr. Justin is a 37-year-old male with a history congestive heart failure, myocardial infarction (2015), end-stage renal disease on dialysis (Friday//Friday), hypertension, seizure disorder, hyperparathyroidism, peptic ulcer disease, anemia, recently diagnosed bronchitis (prescribed antibiotics but not initiated) who presents for nonradiating chest pain in the context of increased fluid intake due to sitting in his apartment. He also attributes the heat from his apartment leading to a seizure this afternoon. According to Mr. Justin, his chest pain is consistent with similar episodes of fluid retention. Notably, his lastdialysis session was cut short due to not feeling well. His current presentation is similar to his previous ED visit on 10/08 during which dialysis provided resolution of symptoms. Vitals notable for tachycardia and tachypnea. On exam, he is uncomfortable and coughing on exertion. Differential includes acute coronary syndrome, congestive heart failure exacerbation, or complications of dialysis. Less likely considerations include pericarditis and pulmonary embolism. Given that these were worked up and negative on 10/08 will not repeat imaging to investigate these at this time unless pain persists. Labs to include CBC, BMP, CRP, BNP, sed rate confident troponins. Imaging to include chest x-rayand ECG. Provided 1 mg Dilaudid and 4 mg Zofran for pain and nausea.. ED Course as of 10/19/22 0559 Sat Oct 19, 2022 0551 ECG IMPRESSION: Sinus tachycardia Minimal voltage criteria for LVH, may be normal variant Slight ST elevation in Anteroseptal leads When compared with ECG of 08-OCT-2022 10:57, No significant change was found 0552 EXAM: DX CHEST AP OR PA AND LATERAL 2 VIEWS IMPRESSION: Since 10/08/2022, decreased central pulmonary vascular congestion and edema. No pneumothorax, pleural effusion or focal consolidation. Stable cardiac silhouette. Punctate hyperdensities projecting over the right upper abdomen may be artifactual. 0552 C-Reactive Protein (CRP), S: 3.5 0552 Basic Metabolic Panel(!): Potassium, P 5.2 Sodium, P 137 Chloride, P 96(!) Bicarbonate, P 25 Anion Gap, P 16(!) BUN (Blood Urea Nitrogen), P 38(!) Creatinine 16.59(!) Estimated GFR (eGFR) <15(!) Calcium, Total, P 11.9(!) Glucose, P 120 0552 Troponin T, Baseline, 5th gen(!): 78 0552 NT-Pro BNP(!): 6551 0552 RBC Distrib Width(!): 15.0 0552 Platelet Count(!): 386 0552 Lymphocytes(!): 0.62 0552 Monocytes(!): 0.20 0552 White Blood Cell Count: 5.0 0552 Neutrophils: 4.15 0552 Plan for admission to medicine for dialysis. Pain persists following dialysis consider workup for pulmonary embolism or pericarditis. 0553 Mr. Justin was admitted to Medicine in stable condition. Final Diagnoses: as of 10/19/22 0559 Pain Chest Dyspnea Failure Renal End Stage (HCC) Care Handoff Row Name 10/19/22 0557 Care Handoff Type of Handoff Admission handoff Marcos Garcia M.D. Resident 10/19/22 0600 documented in this encounter Miscellaneous Notes * Hospital Course - Chan Casanova APRN, C.N.P., D.N.P. - 10/19/2022 3:04 PM CDT Salbador Justin is a 37 y.o. male with h/o CHF with preserved EF due to HTN, ESRD due to HTN on HD via left AVF, STEMI (diagnosed 2016 in [place]), epilepsy(?) who presents to the emergency department withchest pain which the patient related to excess fluid due to recent incomplete dialysis sessions. The patient notes his chest pain is intermittent and lasts for several hours at a time. It is pleuritic and occurs with both exertion and at rest. It began quite abruptly the night prior to presentation and has been constant. It is also associated with a sensation of pressure and dyspnea that is present when he lies flat or on exertion. He estimates he can walk approximately 1 block before feeling increased shortness of breath. He has not taken anything for the pain. He reports that this pain is what occurs when he does not have adequate dialysis. He notes it is normally responsive to dialysis sessions. His last dialysis session was 10/17/2022, which he did not complete as he was fee ling ill due to bronchitis He notes he was previously seen in the ED 10 days prior to this presentation for the same complaints of shortness of breath and chest pain. He had an extensive evaluation including EKG, CT angiography, and transthoracic echocardiography. There were no signs of ACS, PE, or other emergent thoracic pathology. His TTE showed concentric hypertrophy with preserved EF and preserved RV function. His IVC showed normal diameter with normal inspiratory collapse. RVSP estimated at 41 mm Hg. RAP estimated at 5 mm Hg. There were no signs of significant valvular disease. He underwent dialysis session duringthis emergency department visit and his chest pain and shortness of breath completely resolved withthe dialysis session. He was subsequently discharged home with plans to be seen in the outpatient setting by Cardiology on November 06. Of note, he also had an unwitnessed syncopal event that he feels was a seizure. He reports a history of these spells that are typically precluded by a prodrome such as nausea and feeling hot. He denies biting his tongue or bowel or bladder incontinence. He used to be on an unknown medication but nolonger takes it as he felt it was making his seizures worse. At this time the patient notes no sanjuana rns about seizures going forward as he does not actively want this evaluated or medications initiated at this time. Upon presentation to the general care floor the patient noted concerns of shortness of breath and chest pain. Patient noted that it felt as though he had excess fluid on board and felt that he neededa dialysis run. Nephrology was consulted and the patient was taken to dialysis with removal of approximately 2 L of fluid. After dialysis the patient noted that his shortness of breath and chest pressure had almost completely resolved. Since he tolerated dialysis and fluid removal, Nephrology subsequently took the patient back to dialysis the following day for further fluid removal. The patient noted improvement in his symptoms back to baseline after his subsequent run of dialysis. His discharge dry weight was 63.2 kg. On the day of discharge the patient was tolerating a diet well, having bowel movement, minimally voiding (which is his baseline), and mobilizing without difficulty. The patient was subsequently discharged home on 10/20/2022. The patient plans to keep his follow-up appointment with Cardiology on 11/06/2022. documented in this encounter Plan of Treatment Not on file documented as of this encounter Procedures Procedure Name Priority Date/Time Associated Diagnosis Comments HBS ANTIGEN SCRN, S Routine 10/20/2022 8 :23 AM CDT HBC TOTAL AB SCRN, S Routine 10/20/2022 8:23 AM CDT HBS ANTIBODY SCRN, S Routine 10/20/2022 8:23 AM CDT HCV AB W/REFLEX TO HCV PCR, S Routine 10/20/2022 8:23 AM CDT RENAL FUNCTION PANEL, S Routine 10/20/2022 6:34 AM CDT MAGNESIUM, S Routine 10/20/2022 6:34 AM CDT HEMODIALYSIS Routine 10/19/2022 7:58 PM CDT HEMODIALYSIS Routine 10/19/2022 8:43 AM CDT TROPONIN T, 2H/6H, 5TH GEN, P Timed 10/19/2022 6:40 AM CDT SEDIMENTATION RATE, B STAT 10/19/2022 4:48 AM CDT C-REACTIVE PROTEIN (CRP), S/P STAT 10/19/2022 4:48 AM CDT DX CHEST AP OR PA AND LATERAL 2 VIEWS RAD - Semiurgent (Fast; most ED patients; some inpatients) 10/19/2022 4:46 AM CDT PHOSPHORUS (INORGANIC), S Routine 10/19/2022 4:46 AM CDT MAGNESIUM, S Routine 10/19/2022 4:46 AM CDT TROPONIN T, BASELINE, 5TH GEN, P STAT 10/19/2022 4:25 AM CDT NT-PRO B-TYPE NATRIURETIC PEPTIDE (BNP), S STAT 10/19/2022 4:25 AM CDT CBC WITH DIFFERENTIAL, B STAT 10/19/2022 4:25 AM CDT BASIC METABOLIC PANEL, S/P STAT 10/19/2022 4:25 AM CDT ECG STAT 10/19/2022 3:56 AM CDT documented in this encounter Results * HBs Antigen Scrn, S (10/20/2022 8:23 AM CDT) [facility] HBs Antigen Scrn, S Negative Negative 10/21/2022 1:40 PM CDT [facility] Blood (Blood, Venous) 10/20/2022 8:23 AM CDT 10/21/2022 7:21 AM CDT Antonieta Blanchard APRN.N.P., M.S.N. LAB MICROBIOLOGY - BLOOD ORDERABLES [facility] [address] [place] [id number] [facility] [address] [place] [address] * HCV Ab w/Reflex to HCV PCR, Serum (10/20/2022 8:23 AM CDT) [facility] HCV Ab, S Negative Negative 10/21/2022 1:57 PM CDT [facility] Comment:[id number]-[id number] rat io is <1.00. Blood (Blood, Venous) 10/20/2022 8:23 AM CDT 10/21/2022 7:21 AM CDT Sameer Huggins APRN, C.N.P., M.S.N. LAB MICROBIOLOGY - BLOOD ORDERABLES Performing Organization Address [facility] Co de Phone Number [facility] [address] [place] [address] [place] [address] * HBs Antibody Scrn, Serum (10/20/2022 8:23 AM CDT) [facility] HBs Antibody Scrn, S CANCELED 04/07/2023 11:32 AM SALVAGE CLERK [facility] Comment: REVISED RESULTS This result was cancelled. Report is cancelled due to a vendor reagent quality issue. Retesting of a new specimen is recommended if clinically indicated. ----PREVIOUSLY REPORTED ---- Positive Patient is considered to be immune to infection with HBV., Flagged as: Normal (Reported 10/21/2022 13:38) HBs Antibody, Quantitative, S CANCELED mIU/mL 04/07/2023 11:33 AM SALVAGE CLERK [facility] Comment: REVISED RESULTS ----PREVIOUSLY REPORTED ---- 17.1, Flagged as: N/A (Reported 10/21/2022 13:38) Blood (Blood, Venous) 10/20/2022 8:23 AM CDT 10/21/2022 7:35 AM CDT Sameer Huggins APRN, C.N.P., M.S.N. LAB MICROBIOLOGY - BLOOD ORDERABLES Performing Organization Address [facility] Co de Phone Number [facility] [address] [place] [address] [facility] [address] [place] [address] * HBc Total Ab Scrn, S (10/20/2022 8:23 AM CDT) HBc Total Ab Scrn, S Negative Negative 10/21/2022 1:31 PM CDT [facility] Blood (Blood, Venous) 10/20/2022 8:23 AM CDT 10/21/2022 7:35 AM CDT Antonieta Blanchard APRN.N.PJuan C, M.S.N. LAB MICROBIOLOGY - BLOOD ORDERABLES Performing Organization Address City/[facility]/ZIP Co de Phone Number [facility] [place] [address] [place] [address] [facility] [address] [place] [address] * Magnesium (10/20/2022 6:34 AM CDT) Pathologist [facility] Magnesium, S 2.0 1.7 - 2.3 mg/dL 10/20/2022 8:02 AM CDT [facility] Blood (Blood, Venous) 10/20/2022 6:34 AM CDT 10/20/2022 7:31 AM CDT Chan Casanova APRN, C.N.P., D.N.P. LA B BLOOD ADD-ON Performing Organization Address City/[facility]/ZIP Co de Phone Number [facility] [address] [place], [place] [phone] [place] [address] [facility] [address] [place] [address] * (ABNORMAL) Renal Function Panel (10/20/2022 6:34 AM CDT) Potassium, S 4.3 3.6 - 5.2 mmol/L 10/20/2022 8:02 AM CDT DTL Sodium, S 140 135 - 145 mmol/L 10/20/2022 8:02 AM CDT DTL Chloride, S 95(L) 98 - 107 mmol/L 10/20/2022 8:02 AM CDT DTL Bicarbonate, S 27 22 - 29 mmol/L 10/20/2022 8:02 AM CDT DTL Anion Gap 18(H) 7 - 15 10/20/2022 8:02 AM CDT DTL BUN (Blood Urea Nitrogen), S 24 8 - 24 mg/dL 10/20/2022 8:02 AM CDT DTL Creatinine 12.21(H) 0.74 - 1.35 mg/dL 10/20/2022 8:02 AM CDT DTL Estimated GFR (eGFR) <15(L) >=60 mL/min/BSA 10/20/2022 8:02 AM CDT DTL Comment: Estimated GFR calculated using the 2020 CKD_EPI creatinine equation. Calcium, Total, S 9.5 8.6 - 10.0 mg/dL 10/20/2022 8:02 AM CDT DTL Glucose, S 80 70 - 140 mg/dL 10/20/2022 8:02 AM CDT DTL Albumin, S 4.7 3.5 - 5.0 g/dL 10/20/2022 8:02 AM CDT DTL Phosphorus (Inorganic), S 5.1(H) 2.5 - 4.5 mg/dL 10/20/2022 8:02 AM CDT DTL Blood (Blood, Venous) 10/20/2022 6:34 AM CDT 10/20/2022 7:31 AM CDT Chan Casanova APRN, C.N.P., D.N.P. LA B BLOOD ADD-ON [facility] [address] [place] [address], [facility] [address] [place] [address] * (ABNORMAL) Troponin T, 2h/6h, 5th Gen (10/19/2022 6:40 AM CDT) Troponin T, 2 hr, 5th gen 80(H) <=15 ng/L 10/19/2022 7:29 AM CDT STMA 2H Delta 2 ng/L 10/19/2022 7:29 AM CDT STMA 2H Delta Interp Not Changing 10/19/2022 7:29 AM CDT STMA Troponin T, 6 hr, 5th gen CANCELED ng/L 10/19/2022 7:29 AM CDT STMA Comment:Result canceled by t he ancillary. 6H Delta CANCELED ng/L 10/19/2022 7:28 AM CDT STMA Comment:Result canceled by t he ancillary. 6H Delta % CANCELED % 10/19/2022 7:28 AM CDT STMA Comment:Result canceled by t he ancillary. Blood (Blood, Venous) 10/19/2022 6:40 AM CDT 10/19/2022 7:02 AM CDT Narrative [facility] - 10/19/2022 7:29 AM CDT Specimen Information: Specimen ID: [id number] Specimen Type: Blood Specimen Collection Start Date: 10/19/2022 ??6:40 AM Specimen Received Date: 10/19/2022 ??7:02 AM Specimen ID: [id number] Specimen Type: Blood Marcos Garcia M.D. LAB BLOOD TRO PONIN [facility] [address] STMA [facility] [address] [place] [address] * Sedimentation Rate (10/19/2022 4:48 AM CDT) Sedimentation Rate, B 2 2 - 12 mm/h 10/19/2022 5:58 AM CDT DTL Blood (Blood, Venous) 10/19/2022 4:48 AM CDT 10/19/2022 4:57 AM CDT Marcos Garcia M.D. LAB BLOOD ADD -ON [facility] [address] [place] [address] * CRP (C-Reactive Protein) (10/19/2022 4:48 AM CDT) C-Reactive Protein (CRP), S 3.5 <5.0 mg/L 10/19/2022 5:24 AM CDT DTL Blood (Blood, Venous) 10/19/2022 4:48 AM CDT 10/19/2022 5:08 AM CDT Marcos Garcia M.D. LAB BLOOD ADD -ON [facility] [address] [place] [address], [place] [facility] [address] [place] [address] * DX Chest AP or PA and Lateral 2 Views (10/19/2022 4:46 AM CDT) Anatomical Region Laterality Modality Chest, Thoracic RST LOS, Tho racic ARZ LOS, Thoracic FLA LOS N/A Digital Radiography 10/19/2022 4:48 AM CDT Impressions 10/19/2022 7:29 AM CDT Since 10/08/2022, decreased central pulmonary vascular congestion and edema. No pneumothorax, pleural effusion or focal consolidation. Stable enlarged cardiac silhouette. Punctate hyperdensities projecting over the right upper abdomen may be artifactual. Narrative 10/19/2022 7:29 AM CDT EXAM: ??DX CHEST AP OR PA AND LATERAL 2 VIEWS Procedure Note Dagoberto Back M.D. - 10/19/2022 EXAM: DX CHEST AP OR PA AND LATERAL 2 VIEWS IMPRESSION: Since 10/08/2022, decreased central pulmonary vascular congestion andedema. No pneumothorax, pleural effusion or focal consolidation. Stable enlargedcardiac silhouette. Punctate hyperdensities projecting over the right upper abdomen may beartifactual. Marcos Garcia M.D. IMG DIAGNOSTI C IMAGING PROCEDURES * (ABNORMAL) Magnesium (10/19/2022 4:46 AM CDT) Magnesium, S 2.7(H) 1.7 - 2.3 mg/dL 10/19/2022 9:09 AM CDT DTL Blood (Blood, Venous) 10/19/2022 4:46 AM CDT 10/19/2022 8:53 AM CDT Sameer Huggins APRN, C.N.P., M.S.N. LAB BLOOD ADD-ON Performing Organization Address City/[facility] Co de Phone Number [facility] [address] [place] [address], [facility] [address] [place] [address] * Phosphorus Inorganic (10/19/2022 4:46 AM CDT) Pathologist [facility] Phosphorus (Inorganic), S 3.4 2.5 - 4.5 mg/dL 10/19/2022 9:09 AM CDT DT Blood (Blood, Venous) 10/19/2022 4:46 AM CDT 10/19/2022 8:53 AM CDT Kanchan Blanchard APRNNRashida., M.S.N. LAB BLOOD ADD-ON Performing Organization Address [facility] Co de Phone Number [facility] [address] [place] [address], [facility] [address] [place] [address] * (ABNORMAL) Troponin T, Baseline, 5th gen (10/19/2022 4:25 AM CDT) Pathologist [facility] Troponin T, Baseline, 5th gen 78(H) <=15 ng/L 10/19/2022 4:50 AM CDT STMA Blood (Blood, Venous) 10/19/2022 4:25 AM CDT 10/19/2022 4:30 AM CDT Marcos Garcia M.D. LAB BLOOD TRO PONIN [facility] [address] [place] [address], [facility] [address] [place] [address] * (ABNORMAL) NT-Pro B-Type Natriuretic Peptide (BNP) (10/19/2022 4:25 AM CDT) NT-Pro BNP 6551(H) <79 pg/mL 10/19/2022 4:58 AM CDT [facility] Comment: NT-proBNP values less than 300 pg/mL have a 99% negative predictive value for excluding acute congestive heart failure. A cutoff of 1200 pg/mL for patients with an eGFR<60 yields a diagnostic sensitivity and specificity of 89% and 72% for acute congestive heart failure. NT-proBNP values greater than 450 pg/mL are consistent with CHF in adults under 50 years of age. Blood (Blood, Venous) 10/19/2022 4:25 AM CDT 10/19/2022 4:29 AM CDT Marcos Garcia M.D. LAB BLOOD ADD -ON Performing Organization Address City/[facility]/ZIP Co de Phone Number [facility] [address] [place] [address], [facility] [address] [place] [address] * (ABNORMAL) Basic Metabolic Panel (10/19/2022 4:25 AM CDT) Pathologist [facility] Potassium, P 5.2 3.6 - 5.2 mmol/L 10/19/2022 4:48 AM CDT STMA Sodium, P 137 135 - 145 mmol/L 10/19/2022 4:48 AM CDT STMA Chloride, P 96(L) 98 - 107 mmol/L 10/19/2022 4:48 AM CDT STMA Bicarbonate, P 25 22 - 29 mmol/L 10/19/2022 4:48 AM CDT STMA Anion Gap, P 16(H) 7 - 15 10/19/2022 4:48 AM CDT STMA BUN (Blood Urea Nitrogen), P 38(H) 8 - 24 mg/dL 10/19/2022 4:48 AM CDT STMA Creatinine 16.59(H) 0.74 - 1.35 mg/dL 10/19/2022 4:48 AM CDT STMA Estimated GFR (eGFR) <15(L) >=60 mL/min/BSA 10/19/2022 4:48 AM CDT STMA Comment: Estimated GFR calculated using the 2020 CKD_EPI creatinine equation. Calcium, Total, P 11.9(H) 8.6 - 10.0 mg/dL 10/19/2022 4:48 AM CDT STMA Glucose, P 120 70 - 140 mg/dL 10/19/2022 4:48 AM CDT STMA Blood (Blood, Venous) 10/19/2022 4:25 AM CDT 10/19/2022 4:30 AM CDT Marcos Garcia M.D. LAB BLOOD ADD -ON [facility] [place] [address], [facility] [address] [place] [address] * (ABNORMAL) CBC with Differential, Blood (10/19/2022 4:25 AM CDT) Hemoglobin 13.4 13.2 - 16.6 g/dL 10/19/2022 4:33 AM CDT STMA Hematocrit 43.2 38.3 - 48.6 % 10/19/2022 4:33 AM CDT STMA Erythrocytes 4.79 4.35 - 5.65 x10(12)/L 10/19/2022 4:33 AM CDT STMA MCV 90.2 78.2 - 97.9 fL 10/19/2022 4:33 AM CDT STMA RBC Distrib Width 15.0(H) 11.8 - 14.5 % 10/19/2022 4:33 AM CDT STMA Platelet Count 386(H) 135 - 317 x10(9)/L 10/19/2022 4:33 AM CDT STMA Leukocytes 5.0 3.4 - 9.6 x10(9)/L 10/19/2022 4:33 AM CDT STMA Neutrophils 4.15 1.56 - 6.45 x10(9)/L 10/19/2022 4:33 AM CDT STMA Lymphocytes 0.62(L) 0.95 - 3.07 x10(9)/L 10/19/2022 4:33 AM CDT STMA Monocytes 0.20(L) 0.26 - 0.81 x10(9)/L 10/19/2022 4:33 AM CDT STMA Eosinophils <0.03 0.03 - 0.48 x10(9)/L 10/19/2022 4:33 AM CDT STMA Basophils 0.05 0.01 - 0.08 x10(9)/L 10/19/2022 4:33 AM CDT STMA Blood (Blood, Venous) 10/19/2022 4:25 AM CDT 10/19/2022 4:29 AM CDT Marcos Garcia M.D. [place] [address], [place] [address] * ECG 12 Lead (10/19/2022 3:56 AM CDT) Ventricular Rate ECG/Min 114 BPM MUSE PA Interval 144 ms MUSE QRSD Interval 88 ms MUSE QT Interval 336 ms MUSE QTC Interval 463 ms MUSE P [place] 50 degrees MUSE R [place] 68 degrees MUSE T Wave [place] 50 degrees MUSE 10/19/2022 3:56 AM CDT 10/19/2022 4:07 AM CDT Impressions MUSE - 10/19/2022 4:07 AM CDT Sinus tachycardia Minimal voltage criteria for LVH, may be normal variant Slight ST elevation in Anteroseptal leads When compared with ECG of 08-OCT-2022 10:57, No significant change was found Reviewed by ELENA Lima Narrative Procedure Note Sloane Sheldon M.D., M.B.A. - 10/19/2022 IMPRESSION: Sinus tachycardia Minimal voltage criteria for LVH, may be normal variant Slight ST elevation in Anteroseptal leads When compared with ECG of 08-OCT-2022 10:57, No significant change was found Reviewed by ELENA Lima Josselin Balderas M.D., M.S. ECG ORDERABL ES MUSE NA documented in this encounter Visit Diagnoses Diagnosis Pain Chest- Primary Pain Chest Dyspnea Failure Renal End Stage (HCC) Excess Fluid Volume Failure Renal End Stage (HCC) documented in this encounter Admitting Diagnoses Diagnosis Pain Chest Failure Renal End Stage (HCC) documented in this encounter Administered Medications Inactive Administered Medications - up to 3 most recent administrations Medication Order MAR Action Action Date Dose Rate Site acetaminophen tablet 650 mg (TYLENOL) 650 mg, oral, Every 4 hours PRN, mild pain or score 1-3 of 10, headaches, Starting on 10/19/22 at 0831 Given 10/19/2022 8:45 AM CDT 650 mg amLODIPine tablet 10 mg (NORVASC) 10 mg, oral, Daily, First dose on 10/19/22 at 0900 Given 10/20/2022 12:07 PM CDT 10 mg Given 10/19/2022 3:00 PM CDT 10 mg diclofenac sodium 1 % gel 2 g (VOLTAREN) 2 g, topical, 4 times daily, First dose on 10/19/22 at 0800, Apply to chest. Do not exceed 32 g per day, over all affected areas. Use dosing card to measure product. 2 g = 2.25 inches, 4 gm = 4.5 inches. Rinse dosing card after use and save for each administration. heparin (porcine) 1,000 unit/mL injection 5,000 Units 5,000 Units, intravenous, Once in dialysis, On 10/19/22 at 0945, For 1 dose, Dialysis, Heparin (during dialysis) Loading dose Given 10/19/2022 10:15 AM CDT 5,000 Units heparin (porcine) 1,000 unit/mL injection 5,000 Units 5,000 Units, intravenous, Once in dialysis, On 10/20/22 at 0830, For 1 dose, Dialysis, Heparin (during dialysis) Loading dose Given 10/20/2022 8:32 AM CDT 5,000 Units heparin (porcine) injection 5,000 Units 5,000 Units, subcutaneous, Every 8 hours scheduled, First dose on 10/19/22 at 1400 Given 10/20/2022 6:16 AM CDT 5,000 Units Right Lower Abdomen Given 10/19/2022 3:00 PM CDT 5,000 Units L eft Lower Abdomen hydrALAZINE tablet 50 mg (APRESOLINE) 50 mg, oral, 2 times daily, First dose on 10/19/22 at 0900 Given 10/20/2022 12:07 PM CDT 50 mg Given 10/19/2022 8:23 PM CDT 50 mg Given 10/19/2022 3:00 PM CDT 50 mg HYDROmorphone (PF) injection 1 mg (DILAUDID) 1 mg, intravenous, Once, On 10/19/22 at 0436, For 1 dose Given 10/19/2022 5:00 AM CDT 1 mg HYDROmorphone tablet 1 mg (DILAUDID) 1 mg, oral, Every 8 hours PRN, severe pain or score 7-10 of 10, Starting on 10/19/22 at 0831 Given 10/20/2022 12:45 AM CDT 1 mg lisinopriL tablet 20 mg (PRINIVIL,ZESTRIL) 20 mg, oral, Daily, First dose on 10/19/22 at 0900, lisinopril 20 mg oral daily was interchanged for benazepril Given 10/20/2022 12:07 PM CDT 20 mg Given 10/19/2022 3:00 PM CDT 20 mg minoxidiL tablet 10 mg (LONITEN) 10 mg, oral, Daily, First dose on 10/19/22 at 0900 Given 10/20/2022 12:07 PM CDT 10 mg Given 10/19/2022 3:00 PM CDT 10 mg ondansetron (PF) injection 4 mg (ZOFRAN) 4 mg, intravenous, Once, On 10/19/22 at 0436, For 1 dose Given 10/19/2022 4:59 AM CDT [address] tablet 40 mg (PROTONIX) 40 mg, oral, Daily before breakfast, First dose on 10/20/22 at 0700, pantoprazole 40 mg oral daily was interchanged for omeprazole 20 or 40 mg oral daily Swallow whole. Do NOT crush, chew, or split tablet. Given 10/20/2022 6:16 AM CDT 40 mg promethazine injection 6.25 mg (PHENERGAN) 6.25 mg, intravenous, Every 6 hours PRN, nausea, vomiting, headache, Starting on 10/19/22 at 0830 Given 10/20/2022 5:08 AM CDT 6.25 mg Given 10/19/2022 8:44 AM CDT 6.25 mg sodium chloride 0.9 % flush 1-250 mL 1-250 mL, intravenous, As needed, line care, For priming and rinse back post dialysis, Starting on 10/19/22 at 0921, Dialysis, Dialysis order only. Given 10/19/2022 10:20 AM CDT 250 mL sodium chloride 0.9 % flush 1-250 mL 1-250 mL, intravenous, As needed, line care, For priming and rinse back post dialysis, Starting on 10/20/22 at 0811, Dialysis, Dialysis order only. Given 10/20/2022 8:31 AM CDT 250 mL sodium chloride 0.9 % injection 10-60 mL 10-60 mL, intravenous, As needed, line care, To maintain line patency, Starting on 10/19/22 at 0921, Dialysis Given 10/19/2022 11:47 AM CDT 40 mL sodium chloride 0.9 % injection 10-60 mL 10-60 mL, intravenous, As needed, line care, To maintain line patency, Starting on 10/20/22 at 0811, Dialysis Given 10/20/2022 8:31 AM CDT 18 mL torsemide tablet 100 mg (DEMADEX) 100 mg, oral, Daily, First dose on 10/19/22 at 0900 Given 10/20/2022 12:07 PM CDT 100 mg Given 10/19/2022 3:00 PM CDT 100 mg documented in this encounter Active and Recently Administered Medications Times are shown in CDT. Scheduled Medication Order 10/18/2022 10/19/2022 10/20/2022 amLODIPine tablet 10 mg (NORVASC) 10 mg, oral, Daily, First dose on 10/19/22 at 0900 1500 (Given - Provider: Denita Salazar R.N.) 1207 (Given - Provider: Denita Salazar R.N.) diclofenac sodium 1 % gel 2 g (VOLTAREN) 2 g, topical, 4 times daily, First dose on 10/19/22 at 0800, Apply to chest. Do not exceed 32 g per day, over all affected areas. Use dosing card to measure product. 2 g = 2.25 inches, 4 gm = 4.5 inches. Rinse dosing card after use and save for each administration. 0851 (Not Given - Provider: Denita Salazar R.N. - Reason: Patient/family refused)1223 (Not Given - Provider: Denita Salazar R.N. - Reason: Patient not available)1609 (Not Given - Provider: Ila Molina - Reason: Patient/family refused)2025 (Not Given - Provider: Anat Kraft R.N. - Reason: Patient/family refused) 0800 (Not Given - Provider: Denita Salazar R.N. - Reason: Patient/family refused)1140 (Not Given - Provider: Denita Salazar R.N. - Reason: Patient not available) heparin (porcine) 1,000 unit/mL injection 5,000 Units (COMPLETED) 5,000 Units, intravenous, Once in dialysis, On 10/19/22 at 0945, For 1 dose, Dialysis, Heparin (during dialysis) Loading dose 1015 (Given - Provider: Jane Dhaliwal R.N.) heparin (porcine) 1,000 unit/mL injection 5,000 Units (COMPLETED) 5,000 Units, intravenous, Once in dialysis, On 10/20/22 at 0830, For 1 dose, Dialysis, Heparin (during dialysis) Loading dose 0832 (Given - Provid er: Emilie Hernandes R.N.) heparin (porcine) injection 5,000 Units 5,000 Units, subcutaneous, Every 8 hours scheduled, First dose on 10/19/22 at 1400 1500 (Given - Provider: Denita Salazar R.N.)2119 (Not Given - Provider: Anat Kraft R.N. - Reason: Patient/family refused) 0616 (Given - Provider: Anat Kraft R.N.)1402 (Not Given - Provider: Denita Salazar R.N. - Reason: Patient/family refused) hydrALAZINE tablet 50 mg (APRESOLINE) 50 mg, oral, 2 times daily, First dose on 10/19/22 at 0900 1500 (Given - Provider: Denita Salazar R.N.)2023 (Given - Provider: Anat Kraft R.N. - Comment: dialysis) 1207 (Given - Provider: Denita Salazar R.N.) HYDROmorphone (PF) injection 1 mg (DILAUDID) (COMPLETED) 1 mg, intravenous, Once, On 10/19/22 at 0436, For 1 dose 0500 (Given - Provider: Moon Krishnan Friday, R.N.) lisinopriL tablet 20 mg (PRINIVIL,ZESTRIL) 20 mg, oral, Daily, First dose on 10/19/22 at 0900, lisinopril 20 mg oral daily was interchanged for benazepril 1500 (Given - Provider: Denita Salazar R.N.) 1207 (Given - Provider: Denita Salazar R.N.) minoxidiL tablet 10 mg (LONITEN) 10 mg, oral, Daily, First dose on 10/19/22 at 0900 1500 (Given - Provider: Denita Salazar R.N.) 1207 (Given - Provider: Denita Salazar R.N.) ondansetron (PF) injection 4 mg (ZOFRAN) (COMPLETED) 4 mg, intravenous, Once, On 10/19/22 at 0436, For 1 dose 0459 (Given - Provider: Moon Krishnan Friday, R.N.) pantoprazole DR tablet 40 mg (PROTONIX) 40 mg, oral, Daily before breakfast, First dose on 10/20/22 at 0700, pantoprazole 40 mg oral daily was interchanged for omeprazole 20 or 40 mg oral daily Swallow whole. Do NOT crush, chew, or split tablet. 0616 (Given - Provid er: Anat Kraft R.N.) torsemide tablet 100 mg (DEMADEX) 100 mg, oral, Daily, First dose on 10/19/22 at 0900 1500 (Given - Provider: Deniat Salazar R.N.) 1207 (Given - Provider: Denita Salazar R.N.) PRN Medication Order 10/18/2022 10/19/2022 10/20/2022 acetaminophen tablet 650 mg (TYLENOL) 650 mg, oral, Every 4 hours PRN, mild pain or score 1-3 of 10, headaches, Starting on 10/19/22 at 0831 0845 (Given - Provider: Denita Salazar R.N.) HYDROmorphone tablet 1 mg (DILAUDID) (CANCELED) 1 mg, oral, Every 8 hours PRN, severe pain or score 7-10 of 10, Starting on 10/19/22 at 0831 0045 (Given - Provid er: Anat Kraft R.N.) promethazine injection 6.25 mg (PHENERGAN) 6.25 mg, intravenous, Every 6 hours PRN, nausea, vomiting, headache, Starting on 10/19/22 at 0830 0844 (Given - Provider: Denita Salazar R.N.) 0508 (Given - Provider: Anat Kraft R.N.) sodium chloride 0.9 % flush 1-250 mL (CANCELED) 1-250 mL, intravenous, As needed, line care, For priming and rinse back post dialysis, Starting on 10/19/22 at 0921, Dialysis, Dialysis order only. 1020 (Given - Provider: Jane Dhaliwal R.N.) sodium chloride 0.9 % flush 1-250 mL (CANCELED) 1-250 mL, intravenous, As needed, line care, For priming and rinse back post dialysis, Starting on 10/20/22 at 0811, Dialysis, Dialysis order only. 0831 (Given - Provid er: Emilie Hernandes R.N.) sodium chloride 0.9 % injection 10-60 mL (CANCELED) 10-60 mL, intravenous, As needed, line care, To maintain line patency, Starting on 10/19/22 at 0921, Dialysis 1147 (Given - Provider: Page M Isra, R.N.) sodium chloride 0.9 % injection 10-60 mL (CANCELED) 10-60 mL, intravenous, As needed, line care, To maintain line patency, Starting on 10/20/22 at 0811, Dialysis 0831 (Given - Provid er: Emilie Hernandes RJuan CNJuan C) traMADoL tablet 25 mg (ULTRAM) 25 mg, oral, Every 8 hours PRN, moderate pain or score 4-6 of 10, Starting on 10/19/22 at 0712, Restriction Criteria (Pharmacy will review and approve if criteria met): Use in adults 18 years and older documented in this encounter Care Teams Acoustical Material Worker Relationship Specialty Start Date End Date None Reported, Pcp PCP - General Family Medicine 07/28/22 02/03/23 documented as of this encounter
--- OUTSIDE RECORDS SUMMARY | 2023-05-08 16:26 | XMS_ITS | Encounter Summary ---
Author Name Unknown Organization [facility] Address [address] [place] [id number] Care Team Providers Care Rolled Materials Worker Name Role Phone None Reported, Pcp Primary Care Provider Unavail able Encounter Details Date Type Department Care Team (Late st Contact Info) Description 09/12/2022 Orders Only Division of Nephrology and Hypertension, [facility], in [place], [place] [address] [place] [address] Drew Mo, HALLE, C.N.P., M.S.N. [address] [place] [address] Social History Tobacco Use Types Packs/Day Years [...] on filedocumented in this encounter Care Teams Rolled Materials Worker Relationship Specialty Start Date End Date None Reported, Pcp PCP - General Family Medicine 07/28/22 02/03/23 documented as of this encounter
--- OUTSIDE RECORDS SUMMARY | 2023-05-08 16:26 | XMS_ITS | Encounter Summary ---
Author Name Unknown Organization [facility] Address [address] [place] [address] Care Team Providers Care Representative Personal Service Name Role Phone None Reported, Pcp Primary Care Provider Unavail able Encounter Details Date Type Department Care Team (Latest Contact Info) Description 10/16/2022 Clinical Communication Maco ferreira [facility] in [place], [place] [address] [place] [address] Teresita Calix M.D. [address] [place] [address] Social History Tobacco Use Types Packs/Day Years [...] on filedocumented in this encounter Care Teams Representative Personal Service Relationship Specialty Start Date End Date None Reported, Pcp PCP - General Family Medicine 07/28/22 02/03/23 documented as of this encounter
--- OUTSIDE RECORDS SUMMARY | 2023-05-08 16:26 | XMS_ITS | Encounter Summary ---
Author Name Unknown Organization [facility] Address [address] [place] [id number] Care Team Providers Care Tool Design Draftsperson Name Role Phone None Reported, Pcp Primary Care Provider Unavail able Reason for Visit * Reason Comments Chest Pain Encounter Details Date Type Department Care Team (Late st Contact Info) Description 10/08/2022 8:32 AM CDT - 10/08/2022 7:31 PM CDT Emergency [facility] Emergency Department [address] [place] [id number] Haresh Conroy PJuan CAJuan C-C. [address] [place] [id number] Pain Chest Atypical (Primary Dx); Shortness Of Breath; Dyspnea On Exertion Discharge Disposition: Home or Self Care Social History Tobacco Use Types Packs/Day Years Used Date Smoking Tobacco: Never Smokeless Tobacco: Never Tobacco Cessation:Counseling Given: [...] Sign Reading Time Taken Comments Blood Pressure 135/72 10/08/2022 6:45 PM CDT Pulse 86 10/08/2022 7:15 PM CDT Temperature 36.4 ??C (97.5 ??F) 10/08/2022 6:38 PM CD T Respiratory Rate 21 10/08/2022 7:00 PM CDT Oxygen Saturation 99% 10/08/2022 7:15 PM CDT Inhaled Oxygen Concentration - - Weight - - Height - - Body Mass Index - - documented in this encounter Discharge Instructions * Discharge Instructions* Cole Jim M.D., M.P.H. - 10/08/2022 7:12 PM CDT You were evaluated for chest pain and no acute cardiac cause for your chest pain was found. You didhave an echo of your heart that showed a small amount of fluid around your heart that is not causing problems. You have undergone dialysis while in the emergency department and cardiology has arranged follow-up for you. I also recommend you follow-up with your primary care physician * Attachments The following attachments cannot be sent through Care Everywhere. * Nonspecific Chest Pain Adult (Uzbek) documented in this encounter Medications at Time of Discharge Medication Sig Dispensed Refills Start Date End Date amLODIPine (NORVASC) 10 mg tablet Take 1 tablet (10 mg total) by mouth daily. 90 tablet 3 05/07/2022 10/15/2022 benazepriL (LOTENSIN) 20 mg tablet Take 1 tablet (20 mg total) by mouth 2 (two) times a day. 180 tablet 3 05/07/2022 10/15/2022 hydrALAZINE (APRESOLINE) 50 mg tablet Take 1 tablet (50 mg total) by mouth 2 (two) times a day. 180 tablet 3 05/07/2022 12/17/2022 minoxidiL (LONITEN) 10 mg tablet Take 1 tablet (10 mg total) by mouth daily. 90 tablet 3 08/13/2022 10/15/2022 omeprazole (PriLOSEC) [address] capsule Take 1 capsule (40 mg total) by mouth every morning before breakfast. 90 capsule 3 09/05/2022 10/15/2022 torsemide (DEMADEX) 100 mg tablet Take 1 tablet (100 mg total) by mouth daily. 90 tablet 3 09/03/2022 10/31/2022 carvedilol (COREG) 0.7813 mg tablet Take 12.5 mg by mouth. 0 04/03/2022 11/12/2022 traMADoL (ULTRAM) 50 mg tablet Take 25 mg by mouth every 8 (eight) hours as needed for pain. 0 11/14/2022 documented as of this encounter H&P Notes * Haresh Conroy P.A.-C. - 10/08/2022 2:12 PM CDT Emergency Department Observation H&P SUBJECTIVE CHIEF COMPLAINT/ REASON FOR VISIT The patient's chief complaint includes: Chest Pain HISTORY OF PRESENT ILLNESS Salbador Justin is a 37 year old male with a pertinent medical history of congestive heart failure, end stage renal disease on dialysis (Friday//Friday), hypertension, seizure disorder, secondary hyperparathyroidism, noncompliance with medication regimen, peptic ulcer disease, and anemia presents today for chest pain, shortness of breath and headache. Patient reported that he was at his usual state of health yesterday. Approximately 0200 he woke from sleep due to worsening orthopnea and chest pain. The patient states it is not uncommon for him to have shortness of breath when he has not had dialysis for a couple days. His last run was three daysago. He presented to dialysis today but was referred to the ED due to his chest pain. He states he has also had a headache for three days and reports a remote history of migraines. Patient states that his chest discomfort increased with laying fat and improved with sitting upright. Patient also states that he has been lifting a heavy suitcase past few days which he does normally which he feels has nothing to do with chest discomfort. He denies smoking and drug use. He does not remember when hislast echo was or what his ejection fraction is. He is scheduled for an echocardiogram and nuclear medicine cardiac perfusion imaging in one month. Patient chest discomfort is located in the left chest, pain is pulling/heaviness in nature, increased in intensity with laying flat but improved with sitting upright, nonradiating rated a 8/10 on pain scale. He states his shortness of breath is intermittent, rated 7-8/10 in severity. He denies exacerbation of chest pain or shortness of breath with exertion. Patient complained of a headache located in the parietal area, pain is aching in nature, constant, nonradiating and rated his headache a 10/10 on pain scale. Patient headache is similar to ones in the past, denies worse headache of his life, thunderclap headache, acute onset of headache, acute onset of max intensity, numbness/tingling extremities, neurological focal deficits. Patient denies any other complaints. Patient denies fever, chills, myalgia, sore throat, loss of taste or smell, headache, neck pain, back pain, abdominal pain, nausea/vomiting/diarrhea, dizziness, lightheadedness, blurred vision or syncopal episode. OBJECTIVE VITAL SIGNS Heart Rate: 102 Resp Rate: 18 Blood Pressure: 141/81 SpO2: 96 % DIAGNOSTICS I have reviewed laboratory, imaging, and other diagnostic studies. Clinically significant abnormal findings are as noted in the chart and emergency department note. ASSESSMENT / PLAN Salbador will need additional care based on his work up and will be admitted as ED observation. OBSERVATION TREATMENT PLAN: * Serial ECG's * Serial cardiac markers * Cardiac monitoring * Cardiology consult * Anticipated disposition: uncertain due to patient's condition unknown at this time Plan/disposition: Cardiology and MOD had a discussion in regards to disposition. Plan/recommendations are 1. Patient will be dialyzed in [place] and after dialysis will be re-evaluated by Cardiology in regards to chest discomfort. 2. Patient will get a formal bedside echocardiogram per cardiology. 3. C-reactive protein is pending due to concerns for pericarditis. 4. Plan/disposition will be pending Cardiology recommendations for admission versus DC home. Haresh Conroy P.A.-C. 10/08/22 1420 Haresh Conroy P.A.-C. 10/08/22 1426 documented in this encounter Consult Notes * Valentin Stock - 10/08/2022 10:00 AM CDTAssociated Order(s): IP CONSULT TO CARDIOLOGY CARDIOLOGY CONSULT NOTE ED Requesting [facility] Floor Layer: Haresh Conroy PA-C Cardiology Collaborating Mosaic Floor Layer: Dr. Madison MD CHIEF COMPLAINT/REASON FOR VISIT Chest Pain HISTORY OF PRESENT ILLNESS Mr. Justin is a 37 y.o. male who is being evaluated in the ED for chest pain that started abruptly at 0200 this morning. He has medical comorbidities including, but not limited to, ESRD secondary to hypertension, congestive heart failure (diagnosed in [facility]), STEMI in 2016 (diagnosed in [facility]), and epilepsy. He states while he was sitting watching TV around 0200 this morning, he had a quick onset of nonradiating left-sided chest pain. He states that he noticed a slight pulling sensation that abruptly became more constant and has been constant throughout the day. Day prior, he states that he was carrying heavy luggage though this has not been an issue in the past. He did not feel any pain when he lifted up that luggage. He did take Tylenol though that did not alleviate his pain. In the ED, he statesthat it does not feel any worse though it does not feel any better. Sitting up alleviates the pain somewhat but laying down worsens it significantly. He does have difficulty breathing in secondary to the chest pain. He makes note that it feels like his heart is pounding. He is had similar pain in the past though it is not similar to the pain when he was seen in the ED on 09/22/2022. He denies associated symptoms including syncope, lightheadedness, dizziness, cough, abdominal pain, nausea, vomiting, bowel issues, or urinary issues. He is able to make urine and voided today. He also makes note that he does have a migraine that started 3 days ago and has been constantly present. Migraines are normal for him and he usually just takes Tylenol to alleviate the pain. He has a history of end-stage renal disease secondary to hypertensive nephropathy. He hemo-dialyzesthree times a week: Friday, , and Friday. He presented to dialysis today but secondary to chest pain, he was sent to ED. While in the ED, he did receive nitro which did not alleviate his pa in. He states it made it worse. He did receive fentanyl without pain relief. The following portions of the patient's history were reviewed and updated as appropriate: allergies, current medications, family history, medical history, social history, surgical history and problemlist. PAST MEDICAL HISTORY History reviewed. End-stage renal disease, hypertension, congestive heart failure, STEMI in 2016. Epilepsy. History reviewed. Left arm fistula. REVIEW OF SYSTEMS A complete 10 point review of systems was completed and negative except for as mentioned in the HPI. ALLERGIES Allergies Allergen Reactions Benadryl [Diphenhydramine Hcl] GI intolerance and Seizure Hydrocodone GI intolerance and Seizure Morphine GI intolerance and Seizure Nsaids (Non-Steroidal Anti-Inflammatory Drug) Other (see comments) HOME MEDICATIONS Current Medications: fentaNYL injection 75 mcg (SUBLIMAZE), Once NaCl 0.9 % bolus 250 mL, Once nitroglycerin SL tablet 0.4 mg (NITROSTAT), Q5 Min PRN Current Medications: amLODIPine (NORVASC) 10 mg tablet, Take 1 tablet (10 mg total) by mouth daily. benazepriL (LOTENSIN) 20 mg tablet, Take 1 tablet (20 mg total) by mouth 2 (two) times a day. hydrALAZINE (APRESOLINE) 50 mg tablet, Take 1 tablet (50 mg total) by mouth 2 (two) times a day. minoxidiL (LONITEN) 10 mg tablet, Take 1 tablet (10 mg total) by mouth daily. omeprazole (PriLOSEC) [address] capsule, Take 1 capsule (40 mg total) by mouth every morning before breakfast. torsemide (DEMADEX) 100 mg tablet, Take 1 tablet (100 mg total) by mouth daily. traMADoL (ULTRAM) 50 mg tablet, Take 25 mg by mouth every 8 (eight) hours as needed for pain. SOCIAL HISTORY Smoke history: Nonsmoker, quit 20 years ago. When he would smoke, he states it was about 2-3 cigarettes a day. Alcohol history: No alcohol use. Drug history: No drug use. He lives at home alone. FAMILY HISTORY He is not sure. VITAL SIGNS Heart Rate: [103-114] 114 Resp Rate: [16-31] 31 Blood Pressure: (145-166)/(70-87) 145/70 SpO2: [95 %-100 %] 95 % Pulse Rate: [25-114] 114 There is no height or weight on file to calculate BMI. PHYSICAL EXAMINATION General: Alert, oriented x3. He is laying in bed. Answers all questions appropriately. HEENT: Sclerae clear. Chest wall: Reproducible tenderness with firm palpation to the left chest wall. Heart: jugular venous distention not appreciated. Hyperdynamic flow murmur best noted at the base of the heart. Tachycardic rate, regular rhythm. Peripheral pulses dorsalis/posterior tibial pulse 2 +bilaterally no peripheral edema. Lungs: Clear to auscultation bilaterally. Abdomen: Soft, nontender. Extremities: Warm, dry. To left upper extremity, AV fistula noted. Thrill is present. DIAGNOSTICS CT Chest Angiogram Acute Chest Pain with IV Contrast (ED only) (10/08/2022) Impression: 1. No acute aortic syndrome. 2. No pulmonary embolism. 3. Non-diagnostic coronary artery evaluation; the proximal left and right coronary arteries are widely patent, though the remainder of the coronary arteries is non-diagnostic. CAD-RADS N. 4. Marked concentrically increased left ventricular myocardial wall thickness with asymmetric involvement of the basal and mid-cavitary ventricular septum (to maximally 19 mm). While findings may be seen in long-standing systemic hypertension and end-stage renal disease, additional considerations include hypertrophic cardiomyopathy and associated phenocopies. 5. Subcentimeter noncalcified pulmonary nodules present bilaterally, including in the right upper lobe with adjacent ground-glass opacities. Recommend outpatient follow-up CT chest in three months for surveillance. CT Head without IV Contrast (10/08/2022) Impression: No acute intracranial abnormality. DX Chest AP or PA and Lateral 2 Views (10/08/2022) Impression: No significant change since 09/22/2022. Borderline enlarged cardiac silhouette. Pulmonary vascular congestion. No consolidation, pleural effusion or pneumothorax. Results from last 7 days Lab Units 10/08/22 0901 WBC x10(9)/L 7.9 HEMOGLOBIN g/dL 13.3 HEMATOCRIT % 42.3 PLATELETS AUTO x10(9)/L 379* Results from last 7 days Lab Units 10/08/22 0901 INR 0.9 ASSESSMENT / PLAN #1 Chest pain, MSK vs Pericarditis #2 Small Pericardial Effusion noted on informal bedside echo #3 ESRD, x3/week hemodialysis #4 Hypertension Salbador Justin is a 37 y.o. male who presents to the ED with chest pain. Complete blood count did not show an elevated white blood cell count. Anion gap 23, BUN 59, creatinine 17.48, eGFR <15, calcium 10.5. These values are unremarkable when compared to his last chemistry panel from 09/22/2022. He did miss dialysis today secondary to ED presentation. Troponins are elevated but flat at 93 and 91, respectively. Chest x-ray showed pulmonary vascular congestion though no consolidation, pleural effusion, or pneumothorax was noted. ECGs are unremarkable and grossly unchanged when compared to previous ECGs. CT chest angiogram without acute aortic changes or pulmonary embolisms. There is a increased left ventricular myocardial wall thickness and asymmetric involvement of basal and mid cavitary ventricular septum. Informal bedside ultrasound performed by attending provider showed normal valvular structure. Therewas noted pericardial effusion which prompted a formal echo which is still pending. If pericarditisis noted on echo, then he will most likely be admitted to cardiology services for further evaluation and management. CRP was ordered and if negative, then he will be dialyzed today while in ED since he missed his appointment secondary to presentation to the ED. If echo and CRP are benign, this is may be likely a musculoskeletal chest wall pain. Recommendations: --CRP --formal echo --if pericarditis, recommend colchicine --if no acute cardiac etiology, will be discharged home. Exam completed by Valentin Stock, CHRIS Student, under the supervision of Regina Rosales APRN. Associated attestation - Regina Rosales APRN, C.N.P. - 10/08/2022 6:07 PM CDT I was the supervising provider in the delivery of the service. 10/08/2022 transthoracic echocardiogram 1. Normal left ventricular chamber size, no regional wall motion abnormalities, calculated 2-D linear ejection fraction 68%, global averaged longitudinal peak systolic strain is abnormal at -13% (normal = more negative than -18%) (in the setting of chronic renal failure). 2. Abnormal left ventricular geometry with concentric left ventricular hypertrophy. 3. Normal left ventricular filling pressure. 4. Tiny anterior pericardial effusion. 5. Normal right ventricular chamber size, normal systolic function, averaged right ventricular freewall longitudinal peak systolic strain is -25% (normal = more negative than -24%), estimated right ventricular systolic pressure 41 mmHg (right atrial pressure of 5 mmHg). 6. No significant valvular heart disease. 7. Normal inferior vena cava size with normal inspiratory collapse (>50%). ASSESSMENT #1 Chest pain, etiology unclear #2 Presumptive pericardial pain based on history without confirmation by testing (normal CRP, normal 12 lead ECG, and normal transthoracic echocardiogram) #3 Musculoskeletal chest pain Troponins were elevated at baseline at 93 likely related to chronic kidney disease with a 2 hour of91 demonstrating no significant delta. Twelve lead ECG showed sinus tachycardia but no significant ST segment changes. Chest x-ray demonstrated a borderline enlarged cardiac silhouette with pulmonaryvascular congestion. Reassess symptoms post dialysis and he is comfortable. Tachycardia has improved. RECOMMENDATIONS: --encourage use of topical nonsteroidal cream Voltaren and topical lidocaine patches for pain relief in the setting of presumed musculoskeletal pain --consider cardiac MRI as an outpatient for further evaluation of potential pericarditis prior to treatment as treatment regimen would be challenging giving his end-stage renal disease. --would recommend follow-up in the pericardial clinic following cardiac MRI Please page Regina Rosales - [phone] for any questions. Regina Rosales APRN, C.N.P. 10/08/22 documented in this encounter ED Notes * Carla Schroeder R.N. - 10/08/2022 9:30 AM CDT Pt arrives to [place] [id number] via EMS from dialysis with complaints of chest pain, difficulty breathing, and headache. Pt reports going to bed last night and feeling fine but waking up this AM with 8/10 chest pain and increased difficulty breathing. Pt reports headache for the last 3 days, worsening today rating it 10/10. Pt did not get dialysis today d/t worsening chest pain. AX0 X3. VSS. Carla Schroeder R.N. 10/08/22 0935 * Haresh Conroy P.A.-C. - 10/08/2022 8:43 AM CDT Images from the original note were not included. SUBJECTIVE CHIEF COMPLAINT/REASON FOR VISIT Chest Pain HISTORY OF PRESENT ILLNESS Salbador Justin is a 37 year old male with a pertinent medical history of congestive heart failure, end stage renal disease on dialysis (Friday//Friday), hypertension, seizure disorder, secondary hyperparathyroidism, noncompliance with medication regimen, peptic ulcer disease, and anemia presents today for chest pain, shortness of breath and headache. Patient reported that he was at his usual state of health yesterday. Approximately 0200 he woke from sleep due to worsening orthopnea and chest pain. The patient states it is not uncommon for him to have shortness of breath when he has not had dialysis for a couple days. His last run was three daysago. He presented to dialysis today but was referred to the ED due to his chest pain. He states he has also had a headache for three days and reports a remote history of migraines. Patient states that his chest discomfort increased with laying fat and improved with sitting upright. Patient also states that he has been lifting a heavy suitcase past few days which he does normally which he feels has nothing to do with chest discomfort. He denies smoking and drug use. He does not remember when hislast echo was or what his ejection fraction is. He is scheduled for an echocardiogram and nuclear medicine cardiac perfusion imaging in one month. Patient chest discomfort is located in the left chest, pain is pulling/heaviness in nature, increased in intensity with laying flat but improved with sitting upright, nonradiating rated a 8/10 on pain scale. He states his shortness of breath is intermittent, rated 7-8/10 in severity. He denies exacerbation of chest pain or shortness of breath with exertion. Patient complained of a headache located in the parietal area, pain is aching in nature, constant, nonradiating and rated his headache a 10/10 on pain scale. Patient headache is similar to ones in the past, denies worse headache of his life, thunderclap headache, acute onset of headache, acute onset of max intensity, numbness/tingling extremities, neurological focal deficits. Patient denies any other complaints. Patient denies fever, chills, myalgia, sore throat, loss of taste or smell, headache, neck pain, back pain, abdominal pain, nausea/vomiting/diarrhea, dizziness, lightheadedness, blurred vision or syncopal episode. History provided by: Patient, medical records and EMS personnel REVIEW OF SYSTEMS Constitutional: Negative for chills and fever. HENT: Negative for congestion, drooling, ear discharge, hearing loss, mouth sores, nosebleeds, sorethroat, trouble swallowing and voice change. Eyes: Negative for photophobia, pain and visual disturbance. Respiratory: Positive for orthopnea and shortness of breath. Negative for chest tightness. Cardiovascular: Positive for chest pain. Negative for leg swelling. Gastrointestinal: Negative for abdominal pain, nausea and vomiting. Genitourinary: Negative for dysuria, flank pain, frequency, penile pain, scrotal swelling, testicular pain and urgency. Musculoskeletal: Negative for back pain, neck pain and neck stiffness. Skin: Negative for itching and rash. Neurological: Positive for headaches. Negative for dizziness and syncope. Psychiatric/Behavioral: Negative for agitation, behavioral problems and confusion. All other systems reviewed and are negative. OBJECTIVE Initial Vitals Temp -- Pulse Rate 10/08/22 0835 106 Heart Rate 10/08/22 0835 108 Resp Rate 10/08/22 0835 (!) 26 Blood Pressure 10/08/22 0840 (!) 166/87 SpO2 10/08/22 0835 96 % Pain Score 10/08/22 0842 9 PHYSICAL EXAMINATION Constitutional: Nursing note and vitals reviewed. Vital signs are normal. He appears not cachectic.He is active and cooperative. He is easily aroused. Non- toxic appearance. He does not have a sicklyappearance. He does not appear ill. No distress. HENT: Head: Normocephalic and atraumatic. No signs of injury. There is normal jaw occlusion. Right Ear: Hearing, tympanic membrane, external ear and ear canal normal. Left Ear: Hearing, tympanic membrane, external ear and ear canal normal. Nose: Nose normal. No nasal discharge. Mouth/Throat: Oropharynx is clear and moist. Mucous membranes are moist. No tonsillar exudate. Dental: Good dentition. No obvious dental caries Eyes: Conjunctivae, EOM and lids are normal. Pupils are equal, round, and reactive to light. Right eye exhibits no discharge. Left eye exhibits no discharge. Pupils are equal. Periorbital area normal appearing. Neck: Trachea normal and phonation normal. Neck supple. No JVD present. No Brudzinski's sign and noKernig's sign noted. No thyroid mass and no thyroid tenderness present. Cardiovascular: Regular rhythm, S1 normal, S2 normal, normal heart sounds, intact distal pulses, normal pulses and normal peripheral perfusion. Tachycardia present. Exam reveals no gallop, no S3, no S4, no distant heart sounds, no friction rub, no decreased pulses and no clicks. Pulses are palpable. Pulses are no weak pulses. No murmur heard. Pulses: Popliteal pulses are 2+ on the right side, and 2+ on the left side. Dorsalis pedis pulses are 2+ on the right side, and 2+ on the left side. Radial pulses are 2+ on the right side, and 2+ on the left side. Capillary refill: takes less than 3 secondsEdema: no edema noted Pulmonary/Chest: Effort normal and breath sounds normal. There is normal air entry. No accessory muscle usage or stridor. No tachypnea. No respiratory distress. Expiration is no prolonged expiration.Air movement is not decreased. He has no decreased breath sounds. He has no wheezes. He has no rhonchi. He has no rales. Chest wall is not dull to percussion. He exhibits no mass, no tenderness, no bony tenderness and no retraction. Abdominal: Soft and abdomen not firm. Normal appearance, bowel sounds are normal and non-distended.exhibits no distension, no ascites, no pulsatile midline mass, no mass, no Che-Acosta's sign and no Washington's sign. There is no abdominal tenderness. There is no rigidity, no rebound, no guarding, noCVA tenderness, no tenderness at McBurney's point, negative Junior's sign, no Martin sign and no Rovsing's sign. No hernia. Musculoskeletal: General: No tenderness, deformity or edema. Normal range of motion. Cervical back: Normal, full passive range of motion without pain, normal range of motion and neck supple. Thoracic back: Normal. Lumbar back: Normal. Right upper leg: Normal. Left upper leg: Normal. Right lower leg: Normal. Left lower leg: Normal. Lymphadenopathy: He has no cervical adenopathy. Neurological: Alert, oriented to person, place, and time and easily aroused. He has normal sensation, normal strength and cranial nerves II through XII intact. He is not disoriented and responsive. No cranial nerve deficit. Normal speech. He exhibits normal muscle tone. Has a normal rapid alternating movements and unimpaired heel to cueva. Coordination and gait normal. No pronator drift. Fatigable clonus of the feet bilaterally. Skin: Skin is warm, dry, intact and normal color. No bruising noted. He is not diaphoretic. Psychiatric: He has a normal mood and affect. Speech pattern is normal and behavior is normal. Judgment and thought content normal. Cognition and memory are normal. ASSESSMENT/PLAN Assessment and Plan 37 year old male on with history including congestive heart failure and end stage renal disease on dialysis presents with chest pain as well as three days of headache. Differential diagnosis includesacute coronary syndrome, pulmonary embolism, subarachnoid hemorrhage, symptomatic anemia, electrolyte derangement, and metabolic derangement. We will obtain a head CT, chest CT angiogram with acute chest pain protocol, chest x-ray, ECG, and labs including troponin, BMP, hepatic function panel, and VBG. He does have fatigable clonus on exam and he missed dialysis today, so we will need to arrange for a dialysis run. Final disposition is pending the results of the workup and the patient's ED course. Physical exam is remarkable for chest discomfort located in the left chest but no other gross abnormalities noted. Headache located parietal area which appears to be similar to the 1 in the past and neurological exam was grossly unremarkable. Shortness of breath with tachycardia, tachypneic, room air sats stable with no new oxygen requirement. EKG is remarkable for sinus tachycardia with nonspecific ST abnormalities. When compared to previous EKG changes noted but no concerns for STEMI. CXR is remarkable for No significant change since 09/22/2022. Borderline enlarged cardiac silhouette. Pulmonary vascular congestion. No consolidation, pleural effusion or pneumothorax. CT head was completed due to patient complained of headache with hypertension. Had CT head was unremarkable for no acute intracranial abnormality. Initial troponin was remarkable for value of 93, 2 hour troponin remarkable for a value of 91 with a delta of -2. EKG wasrepeated after 2 hour troponin with no changes from previous. D-dimer was not assessed due to patient is considered high risk for PE with ESRD and tachycardia. Patient will get a CTA acute chest to rule out PE versus ACS. Labs remarkable for elevated creatinine and BUN due to patient is due for dialysis this morning but was missed secondary to his chest discomfort. The remainder of labs were within normal range. CTA acute chest was remarkable for Non-diagnostic coronary artery evaluation; the proximal left and right coronary arteries are widely patent, though the remainder of the coronary arteries is non-diagnostic. CAD-RADS N. Marked concentrically increased left ventricular myocardial wall thickness with asymmetric involvement of the basal and mid-cavitary ventricular septum (to maximally 19 mm). Subcentimeter noncalcified pulmonary nodules present bilaterally, including in the right upper lobe with adjacent ground-glass opacities. Recommend outpatient follow-up CT chest in three months for surveillance. Cardiology was consulted and MO D got involved who discussed plan/disposition for patient. After MOD and cardiology had a discussion the Plan/recommendations are 1. Patient will be dialyzed in [facility] after dialysis will be re-evaluated by Cardiology in regards to chest discomfort. 2. Patient will get a formal bedside echocardiogram per cardiology. 3. C-reactive protein is pending due to concerns for pericarditis. 4. Plan/disposition will be pending Cardiology recommendations for admission versus DC home. Patient was updated about labs, imaging, treatment plan and plan/disposition for admission versus outpatient follow-up using every day language. Patient be admitted to [facility] for dialysis, bedside ultrasound and plan/disposition be pending Cardiology recommendations. [facility] handoff was completed with provider and center 2.. DIFFERENTIAL DIAGNOSES Pneumonia, ACS, congestive heart failure, STEMI versus NSTEMI, pericarditis, arrhythmia, anemia, electrolyte abnormality, uremic, complications of dialysis, medication noncompliance, muscle skeletal pain, peptic ulcer, biliary disease, GERD, hepatitis, gastroenteritis, intracranial hemorrhage, SAH,brain tumor, migraine headache, . I reviewed the following external records: primary care records, prior outpatient labs, inpatient records, office records, prior outpatient radiology tests and outside ED records. ED Course as of 10/08/22 1443 Tue Oct 08, 2022 0950 DX Chest AP or PA and Lateral 2 Views No significant change since 09/22/2022. Borderline enlarged cardiac silhouette. Pulmonary vascular congestion. No consolidation, pleural effusion or pneumothorax. 0959 Patient continues to be tachycardic which can be secondary to PE versus ACS versus congestive heart failure versus needs dialysis. I would not order a D- dimer but order triple scan to rule out ACS versus PE. 1005 Basic Metabolic Panel(!): Potassium, P 4.6 Sodium, P 140 Chloride, P 95(!) Bicarbonate, P 22 Anion Gap, P 23(!) BUN (Blood Urea Nitrogen), P 59(!) Creatinine 17.48(!) Estimated GFR (eGFR) <15(!) Calcium, Total, P 10.5(!) Glucose, P 97 Remarkable for elevated creatinine which patient has a history of ESRD with dialysis dependency. Patient was scheduled for dialysis today which she did not complete due to the chest pain. 1009 Magnesium(!): Magnesium 2.4(!) Remarkable for hypermagnesemia 1048 Troponin T, Baseline, 5th gen(!): Troponin T, Baseline, 5th gen 93(!) Initial troponin remarkable for abnormal value of 93 which has been higher in the past but today's lower than previous lab value. 1059 CT Head without IV Contrast No acute intracranial abnormality. 1126 Troponin T, 2h/6h, 5th Gen(!): Troponin T, 2 hr, 5th gen 91(!) 2H Delta -2 2H Delta Interp Not Changing Troponin T, 6 hr, 5th gen CANCELED 6H Delta CANCELED 6H Delta % CANCELED 2 hour troponin remarkable for value of 91 and a delta of -2. 1202 Patient informed the nurse that he filled that he is getting attitude and no one is listening to his complaint. I went back into the room to address patient complained which I showed him that I done multiple labs, got a CT triple scan to rule out ACS versus PE and because of his extensive history cardiac is currently being involved. I explained him his labs in regards to troponin. Patient was informed that nobody has has an attitude and we do not sales assistant anyone. My job is to provide great care and rule out life threatening causes of his complaint. I informed him that his concern is not going on heard that is the reason why cardiology is evaluating patient. Patient was advised that his his tory he has allergies to hydrocodone and morphine which is documented for seizures. He states that he can take Dilaudid. I informed him that the hydrocodone and morphine is in the same family as Dilaudid. Not feel comfortable administering Dilaudid for his pain due to his history of seizures. I discussed the case with the ED pharmacy which she was in agreement to treat patient pain with fentanyl.Patient was informed that I will give him fentanyl which she adamantly refuse. I discussed the for findings with Cardiology who advised he will evaluate patient to rule out cardiac etiology. Once cardiology had evaluated patient I will attempt to treat patient chest pain with droperidol. 1205 Cardiology is currently evaluating patient. 1206 CT Chest Angiogram Acute Chest Pain with IV Contrast (ED only) 1. No acute aortic syndrome. 2. No pulmonary embolism. 3. Non-diagnostic coronary artery evaluation; the proximal left and right coronary arteries are widely patent, though the remainder of the coronary arteries is non-diagnostic. CAD-RADS N. 4. Marked concentrically increased left ventricular myocardial wall thickness with asymmetric involvement of the basal and mid-cavitary ventricular septum (to maximally 19 mm). While findings may be seen in long-standing systemic hypertension and end-stage renal disease, additional considerations include hypertrophic cardiomyopathy and associated phenocopies. 5. Subcentimeter noncalcified pulmonary nodules present bilaterally, including in the right upper lobe with adjacent ground-glass opacities. Recommend outpatient follow-up CT chest in three months for surveillance. 1222 Spoke with cardiology who advised not really sure patient symptoms is cardiac in nature. He recommend getting a C reactive protein with concerns for pericarditis. However patient is unable to take NSAIDs. Recommend admitting patient to medicine for dialysis and former echocardiogram to rule out pericardial effusion. Cards did a bedside ultrasound with shows trace effusion. Your cardiology will also need recommendation from Nephrology in regards to treatment plan if patient is is positive for pericarditis 1253 The JOSEPHINE Krishnan had a discussion with Cardiology in in regards to disposition. JOSEPHINE Krishnan advised the plan is to have patient placed in ED observation for dialysis, cardiology will order formal echocardiogram. C reactive protein lab is pending rule out pericarditis. Plan/disposition will be pending Cardiology recommendations. Final Diagnoses: as of 10/08/22 1443 Pain Chest Atypical Shortness Of Breath Dyspnea On Exertion Haresh Conroy P.A.-C. 10/08/22 1443 documented in this encounter Plan of Treatment Not on file documented as of this encounter Procedures Procedure Name Priority Date/Time Associated Diagnosis Comments (TTE) 2D ECHO DOPPLER COLOR Routine 10/08/2022 2:51 PM CDT HBS ANTIGEN SCRN, S Routine 10/08/2022 2 :27 PM CDT HBC TOTAL AB SCRN, S Routine 10/08/2022 2:27 PM CDT HBS ANTIBODY SCRN, S Routine 10/08/2022 2:27 PM CDT HCV AB W/REFLEX TO HCV PCR, S Routine 10/08/2022 2:27 PM CDT C-REACTIVE PROTEIN (CRP), S/P STAT 10/08/2022 2:27 PM CDT HEMODIALYSIS Routine 10/08/2022 2:00 PM CDT TROPONIN T, 2H/6H, 5TH GEN, P Timed 10/08/2022 11:01 AM CDT ECG STAT 10/08/2022 10:[address] CHEST ANGIOGRAM ACUTE CHEST PAIN WITH IV CONTRAST (ED ONLY) RAD - Semiurgent (Fast; most ED patients; some inpatients) 10/08/2022 10:[address] HEAD WITHOUT IV CONTRAST RAD - Semiurgent (Fast; most ED patients; some inpatients) 10/08/2022 10:42 AM CDT DX CHEST AP OR PA AND LATERAL 2 VIEWS RAD - Semiurgent (Fast; most ED patients; some inpatients) 10/08/2022 9:35 AM CDT TROPONIN T, BASELINE, 5TH GEN, P STAT 10/08/2022 9:01 AM CDT PATIENT STATUS STAT 10/08/2022 9:01 AM CDT VENOUS BLOOD GAS W/O COOX STAT 10/08/2022 9:01 AM CDT HEPATIC FUNCTION PANEL, S STAT 10/08/2022 9:01 AM CDT PROTHROMBIN TIME (PT), P STAT 10/08/2022 9:01 AM CDT CBC WITH DIFFERENTIAL, B STAT 10/08/2022 9:01 AM CDT MAGNESIUM, S STAT 10/08/2022 9:01 AM CDT LIPASE, S/P STAT 10/08/2022 9:01 AM CDT BASIC METABOLIC PANEL, S/P STAT 10/08/2022 9:01 AM CDT ECG STAT 10/08/2022 8:47 AM CDT documented in this encounter Results * (TTE) 2D ECHO DOPPLER COLOR (10/08/2022 2:51 PM CDT) Pathologist [facility] [place] Ejection Fraction 68 MC CV EIMS LV Mass Index 214 MC CV EIMS LV End-Diastolic Diameter 50 MC CV EIMS LV End-Systolic Diameter 30 MC CV EIMS MV E Velocity 1.1 MC CV EIMS MV A Velocity 0.7 MC CV EIMS MV E/A 1.57 MC CV EIMS MV e' Velocity Medial 0.08 MC CV EIMS MV e' Velocity Lateral 0.12 MC CV EIMS MV E/e' Medial 13.8 MC CV EIMS MV E/e' Lateral 9.2 MC CV EIMS Left ventricular stroke volume index 49 MC CV EIMS Cardiac Output 7.9 MC CV EIMS Cardiac Index 4.76 MC CV EIMS LV Global Longitudinal Strain -13 MC CV EIMS LV Interventricular Septal Wall Thickness 13 MC CV EIMS LV Posterior Wall Thickness 19 MC CV EIMS LV Relative Wall Thickness 76 MC CV EIMS RV Free Wall Strain -25 MC CV EIMS TR Vmax 3 MC CV EIMS RA Pressure 5 MC CV EIMS RV Systolic Pressure 41 MC CV EIMS AV mean gradient 13 MC CV EIMS Aortic valve area 2.25 MC CV EIMS Aortic Valve Dimensionless Index 0.54 MC CV EIMS LA Volume Index 43 MC CV EIMS Aortic Valve Systolic Peak Velocity 2.5 MC CV EIMS Anatomical Region Laterality Modality Echocardiography 10/08/2022 1:09 PM CDT Impressions 10/08/2022 4:08 PM CDT Echo performed in the Emergency Department. LEFT VENTRICLE:Normal left ventricular chamber size. Abnormal left ventricular geometry with ??concentric left ventricular hypertrophy. Calculated 2-D linear left ventricular ejection fraction 68%. Hyperdynamic left ventricular systolic function. Strain imaging examination performed to assess left ventricular function. Global averaged left ventricular longitudinal peak systolic strain is abnormal at -13% (normal = more negative than -18%). No regional wall motion abnormalities. Normal left ventricular filling pressure. RIGHT VENTRICLE:Normal right ventricular chamber size. Normal right ventricular systolic function. Strain imaging examination performed to assess right ventricular function. Averaged right ventricular free wall longitudinal peak systolic strain is -25% (normal = more negative than -24%). Estimated right ventricular systolic pressure 41 mmHg (right atrial pressure of 5 mmHg). ATRIA:Moderately enlarged left atrial size. Left atrial volume index 43 ml/m2. Normal right atrial size. CARDIAC VALVES:Trileaflet aortic valve. Mildly normal aortic valve. Aortic valve systolic mean Doppler gradient 13 mmHg. Aortic valve area by Doppler 2.25 cm2. No aortic valve regurgitation. Mildly thickened mitral valve. Trivial mitral valve regurgitation. Normal pulmonary valve. Normal pulmonary valve systolic velocities. Trivial pulmonary valve regurgitation. Normal tricuspid valve. Trivial tricuspid valve regurgitation. OTHER ECHO FINDINGS:Normal ascending aorta diameter. No abdominal aortic aneurysm. Normal abdominal aorta Doppler flow pattern. No atrial level shunt by color flow imaging. No intracardiac mass or thrombus, but the left atrial appendage cannot be visualized adequately with transthoracic echo to exclude thrombus in this location. Tiny anterior pericardial effusion. For the complete report, see the Order-Level Documents. Narrative 10/08/2022 4:08 PM CDT For the complete report, see the Order-Level Documents. Hemodynamics Heart Rate: 97 BPM Blood Pressure: 168 / 91 mmHg ECG: Sinus rhythm Final Impressions 1. Normal left ventricular chamber size, no regional wall motion abnormalities, calculated 2-D linear ejection fraction 68%, global averaged longitudinal peak systolic strain is abnormal at -13% (normal = more negative than -18%) (in the setting of chronic renal failure). 2. Abnormal left ventricular geometry with ??concentric left ventricular hypertrophy. 3. Normal left ventricular filling pressure. 4. Tiny anterior pericardial effusion. 5. Normal right ventricular chamber size, normal systolic function, averaged right ventricular free wall longitudinal peak systolic strain is -25% (normal = more negative than -24%), estimated right ventricular systolic pressure 41 mmHg (right atrial pressure of 5 mmHg). 6. No ??significant valvular heart disease. 7. Normal inferior vena cava size with normal inspiratory collapse (>50%). Procedure Note Shane Guadalupe M.D., Ph.D. - 10/08/2022 For the complete report, see the Order-Level Documents. Hemodynamics Heart Rate: 97 BPM Blood Pressure: 168 / 91 mmHg ECG: Sinus rhythm Final Impressions 1. Normal left ventricular chamber size, no regional wall motionabnormalities, calculated 2-D linear ejection fraction 68%, globalaveraged longitudinal peak systolic strain is abnormal at -13% (normal =more negative than -18%) (in the setting of chronic renal failure). 2. Abnormal left ventricular geometry with concentric left ventricularhypertrophy. 3. Normal left ventricular filling pressure. 4. Tiny anterior pericardial effusion. 5. Normal right ventricular chamber size, normal systolic function,averaged right ventricular free wall longitudinal peak systolic strain is-25% (normal = more negative than -24%), estimated right ventricularsystolic pressure 41 mmHg (right atrial pressure of 5 mmHg). 6. No significant valvular heart disease. 7. Normal inferior vena cava size with normal inspiratory collapse(>50%). Findings Echo performed in the Emergency Department. LEFT VENTRICLE:Normal left ventricular chamber size. Abnormal leftventricular geometry with concentric left ventricular hypertrophy.Calculated 2-D linear left ventricular ejection fraction 68%. Hyperdynamicleft ventricular systolic function. Strain imaging examination performedto assess left ventricular function. Global averaged left ventricularlongitudinal peak systolic strain is abnormal at -13% (normal = morenegative than -18%). No regional wall motion abnormalities. Normal leftventricular filling pressure. RIGHT VENTRICLE:Normal right ventricular chamber size. Normal rightventricular systolic function. Strain imaging examination performed toassess right ventricular function. Averaged right ventricular free walllongitudinal peak systolic strain is -25% (normal = more negative than-24%). Estimated right ventricular systolic pressure 41 mmHg (right atrialpressure of 5 mmHg). ATRIA:Moderately enlarged left atrial size. Left atrial volume index 43ml/m2. Normal right atrial size. CARDIAC VALVES:Trileaflet aortic valve. Mildly normal aortic valve. Aorticvalve systolic mean Doppler gradient 13 mmHg. Aortic valve area by Doppler2.25 cm2. No aortic valve regurgitation. Mildly thickened mitral valve.Trivial mitral valve regurgitation. Normal pulmonary valve. Normalpulmonary valve systolic velocities. Trivial pulmonary valveregurgitation. Normal tricuspid valve. Trivial tricuspid valveregurgitation. OTHER ECHO FINDINGS:Normal ascending aorta diameter. No abdominal aorticaneurysm. Normal abdominal aorta Doppler flow pattern. No atrial levelshunt by color flow imaging. No intracardiac mass or thrombus, but theleft atrial appendage cannot be visualized adequately with transthoracicecho to exclude thrombus in this location. Tiny anterior pericardialeffusion. For the complete report, see the Order-Level Documents. Regina Rosales APRN, C.N.P. CV ECHO IN OCEDURES * HBs Antigen Scrn, S (10/08/2022 2:27 PM CDT) [facility] HBs Antigen Scrn, S Negative Negative 10/08/2022 10:00 PM CDT [facility] Blood (Blood, Venous) 10/08/2022 2:27 PM CDT 10/08/2022 5:13 PM CDT Mimi Springer M.D. LAB MICROBIOL OGY - BLOOD ORDERABLES Performing Organization Address City/[facility]/ZIP Co de Phone Number [place] [id number] [place] [address] [place] [address] * HCV Ab w/Reflex to HCV PCR, Serum (10/08/2022 2:27 PM CDT) [facility] HCV Ab, S Negative Negative 10/08/2022 10:17 PM CDT [facility] Comment:[id number] rat io is <1.00. Blood (Blood, Venous) 10/08/2022 2:27 PM CDT 10/08/2022 5:13 PM CDT Mimi Springer M.D. LAB MICROBIOL OGY - BLOOD ORDERABLES [facility] [address] [place] [address] [place] [address] * HBs Antibody Scrn, Serum (10/08/2022 2:27 PM CDT) Pathologist [facility] [place] HBs Antibody Scrn, S CANCELED 04/08/2023 11:59 AM DUPLICATING MACHINE OPERATOR [facility] Comment: REVISED RESULTS This result was cancelled. Report is cancelled due to a vendor reagent quality issue. Retesting of a new specimen is recommended if clinically indicated. ----PREVIOUSLY REPORTED ---- Positive Patient is considered to be immune to infection with HBV., Flagged as: Normal (Reported 10/08/2022 22:31) HBs Antibody, Quantitative, S CANCELED mIU/mL 04/08/2023 11:59 AM DUPLICATING MACHINE OPERATOR [facility] Comment: REVISED RESULTS ----PREVIOUSLY REPORTED ---- 14.6, Flagged as: N/A (Reported 10/08/2022 22:31) Blood (Blood, Venous) 10/08/2022 2:27 PM CDT 10/08/2022 5:13 PM CDT Mimi Springer M.D. LAB MICROBIOL OGY - BLOOD ORDERABLES Performing Organization Address City/[facility]/ZIP Co de Phone Number [facility] [address] [place] [address] [facility] [address] [place] [address] * HBc Total Ab Scrn, S (10/08/2022 2:27 PM CDT) [facility] HBc Total Ab Scrn, S Negative Negative 10/08/2022 10:28 PM CDT [facility] Blood (Blood, Venous) 10/08/2022 2:27 PM CDT 10/08/2022 5:13 PM CDT Mimi Springer M.D. LAB MICROBIOL OGY - BLOOD ORDERABLES [facility] [address] [place] [address] [facility] [address] [place] [address] * CRP (C-Reactive Protein) (10/08/2022 2:27 PM CDT) Pathologist [facility] [place] C-Reactive Protein (CRP), S <3.0 <5.0 mg/L 10/08/2022 3:18 PM CDT [facility] Blood (Blood, Venous) 10/08/2022 2:27 PM CDT 10/08/2022 2:57 PM CDT Haresh Conroy P.A.-C. LAB BLOOD ADD-ON [facility] [address] [place] [address], [facility] [address] [place] [address] * (ABNORMAL) Troponin T, 2h/6h, 5th Gen (10/08/2022 11:01 AM CDT) Pathologist [facility] [place] Troponin T, 2 hr, 5th gen 91(H) <=15 ng/L 10/08/2022 11:26 AM CDT [facility] 2H Delta -2 ng/L 10/08/2022 11:26 AM CDT [facility] 2H Delta Interp Not Changing 10/08/2022 11:26 AM CDT [facility] Troponin T, 6 hr, 5th gen CANCELED ng/L 10/08/2022 11:26 AM CDT [facility] Comment:Result canceled by t he ancillary. 6H Delta CANCELED ng/L 10/08/2022 11:24 AM CDT [facility] Comment:Result canceled by t he ancillary. 6H Delta % CANCELED % 10/08/2022 11:24 AM CDT [facility] Comment:Result canceled by t he ancillary. Blood (Blood, Venous) 10/08/2022 11:01 AM CDT 10/08/2022 11:[address] [facility] - 10/08/2022 11:26 AM CDT Specimen Information: Specimen ID: [id number] Specimen Type: Blood Specimen Collection Start Date: 10/08/2022 11:01 AM Specimen Received Date: 10/08/2022 11:05 AM Specimen ID: [id number] Specimen Type: Blood Specimen Collection Start Date: 10/08/2022 11:26 AM Specimen Received Date: 10/08/2022 11:26 AM Haresh Conroy P.A.-C. LAB BLOOD [place] IN Performing Organization Address [facility] Co de Phone Number [facility] [address] [place] [address], [facility] [address] [place] [address] * ECG 12 Lead (10/08/2022 10:57 AM CDT) Ventricular Rate ECG/Min 104 BPM MUSE IN Interval 142 ms MUSE QRSD Interval 98 ms MUSE QT Interval 364 ms MUSE QTC Interval 478 ms MUSE P Western 50 degrees MUSE R Western 59 degrees MUSE T Wave Western 62 degrees MUSE 10/08/2022 10:5 7 AM CDT 10/08/2022 11:35 AM CDT Impressions MUSE - 10/08/2022 11:35 AM CDT Sinus tachycardia Left atrial enlargement Slight ST elevation in Anteroseptal leads When compared with ECG of 08-OCT-2022 08:47, No significant change was found Reviewed by ELENA Katz Narrative Procedure Note Theron Coley M.D., Ph.D. - 10/08/2022 IMPRESSION: Sinus tachycardia Left atrial enlargement Slight ST elevation in Anteroseptal leads When compared with ECG of 08-OCT-2022 08:47, No significant change was found Reviewed by ELENA Katz Haresh Conroy P.A.-C. ECG ORDERABLES Performing Organization Address [facility] Co de Phone Number MUSE NA * CT Chest Angiogram Acute Chest Pain with IV Contrast (ED only) (10/08/2022 10:42 AM CDT) Anatomical Region Laterality Modality Chest, Cardiovascular RST LO S, Thoracic ARZ LOS, Cardiovascular FLA LOS Computed Tomography, C omputed Tomography 10/08/2022 10:3 0 AM CDT Impressions 10/08/2022 11:36 AM CDT 1. ??No acute aortic syndrome. 2. ??No pulmonary embolism. 3. ??Non-diagnostic coronary artery evaluation; the proximal left and right coronary arteries are widely patent, though the remainder of the coronary arteries is non-diagnostic. CAD-RADS N. 4. ??Marked concentrically increased left ventricular myocardial wall thickness with asymmetric involvement of the basal and mid-cavitary ventricular septum (to maximally 19 mm). While findings may be seen in long-standing systemic hypertension and end-stage renal disease, additional considerations include hypertrophic cardiomyopathy and associated phenocopies. 5. ??Subcentimeter noncalcified pulmonary nodules present bilaterally, including in the right upper lobe with adjacent ground-glass opacities. Recommend outpatient follow-up CT chest in three months for surveillance. Narrative 10/08/2022 11:36 AM CDT EXAM: CT CHEST ANGIOGRAM ACUTE CHEST PAIN WITH IV CONTRAST (ED ONLY) ECG-gated CT angiogram of the chest with IV contrast done according to the acute chest pain protocol, including independent workstation 3D reformations followed by CT angiogram of the abdomen ?? COMPARISON: ??No prior cross-sectional imaging available for comparison. CARDIOVASCULAR FINDINGS: PULMONARY ARTERIES: Normal-caliber central pulmonary arteries (main pulmonary artery diameter 29 mm). No pulmonary embolism. AORTA: No acute aortic syndrome, including no aortic dissection, penetrating atherosclerotic ulcer, expanding aneurysm, or aortic dissection. Left-sided thoracic aorta and aortic arch. Normal-caliber ascending aorta (mid-ascending aorta diameter 27 mm). No atherosclerotic plaque of the aortic root, ascending aorta, aortic arch. Minimal noncalcified atherosclerotic plaque of the descending thoracic aorta with no significant associated stenosis. Normal-variant aortic arch branching anatomy (common origin of the innominate and left common carotid arteries). Branch vessels are widely patent where visualized along their proximal courses. Proximal visceral arteries, including celiac trunk, superior mesenteric artery, and single right renal artery are widely patent where visualized. CORONARY ARTERIES: Quality: Partially diagnostic; diagnostic utility is limited secondary to relative photopenia, incomplete contrast opacification, and lack of premedication (n.b., patient declined sublingual nitroglycerin). ?? Origins/course: Conventional origins of the right and left coronary arteries. Dominance: Right. Left Main Coronary: Widely patent without detectable plaque and/or stenosis. Left Anterior Descending: Proximal vessel is widely patent without detectable plaque and/or stenosis. The remainder of the vessel, including diagonal branches, is non-diagnostic. Left Circumflex: Proximal vessel is widely patent without detectable plaque and/or stenosis. Distal vessel, including obtuse marginal branches is non-diagnostic. Right Coronary: Immediate proximal vessels widely patent without plaque and/or stenosis; however, the remainder of the vessel is non-diagnostic secondary to limited contrast opacification. OTHER CARDIAC FINDINGS: VENTRICLES: Left ventricle: Normal left atrial chamber size by qualitative assessment. Concentrically increased left ventricular myocardial wall thickness with asymmetric involvement of the ventricular septum to approximately 19 mm at the basal anteroseptum and 19 mm at mid-cavity level. Apical displacement of the anterolateral papillary muscle. No resting regional wall motion abnormalities. No resting first-pass perfusion defects. No resting left ventricular outflow tract obstruction. No intracardiac mass/thrombus. Right ventricle: No intracardiac mass/thrombus. ?? ATRIA: Left atrium: Enlarged left atrial chamber size by qualitative assessment. No intracardiac mass/thrombus, including of the well-opacified left atrial appendage. Right atrium: Enlarged right atrial chamber size by qualitative assessment. VALVES: Aortic: Tricuspid aortic valve with normal cusp thickness and no aortic valve calcification. Normal cusp mobility. Mitral: No mitral annular calcification. Normal mitral valve leaflet thickness. Chordal systolic anterior motion without systolic anterior motion of the mitral valve leaflets. Pulmonic: Tricuspid pulmonic valve with normal cusp thickness and mobility. Tricuspid: Tricuspid valve not well visualized. PERICARDIUM: No pericardial thickness where visualized. No pericardial calcification. Physiologic pericardial fluid without effusion. ADDITIONAL NONCARDIOVASCULAR FINDINGS: Subcentimeter noncalcified pulmonary nodule right upper lobe (3 x 4 mm with surrounding groundglass opacification, series 6, image 225 and 4 mm, series 6, image 78) and left lower lobe (3 mm, series 6, image 235). Subcentimeter calcified pulmonary nodule left lower lobe (2 mm, series 6, image 274) consistent with prior granulomatous process. Clear central airways. No pleural effusions, pneumothoraces, or masses. Subtle diffuse mosaic attenuation consistent with small airways disease. CAD-RADS CATEGORIES: CORONARY STENOSIS: (based on most severe single lesion) 0: 0%, No stenosis 1: 1-24%, Minimal stenosis 2: 25-49%, Mild stenosis 3: 50-69%, Moderate stenosis 4: 70-99%, Severe stenosis 5: 100%, Occluded CORONARY PLAQUE: (based on overall plaque burden) P1: Mild plaque P2: Moderate plaque P3: Severe plaque P4: Extensive plaque MODIFIERS: N: Non-diagnostic segment(s) S: Stent G: Graft HRP: High-risk plaque (two or more of the following: spotty calcifications, low attenuation plaque, positive remodeling, napkin ring sign) E: Exceptions (including coronary dissection, anomaly, aneurysm, fistula, etc.) Procedure Note Sami Gandara M.D. - 10/08/2022 EXAM: CT CHEST ANGIOGRAM ACUTE CHEST PAIN WITH IV CONTRAST (ED ONLY) ECG-gated CT angiogram of the chest with IV contrast done according to theacute chest pain protocol, including independent workstation 3D reformations followed by CTangiogram of the abdomen COMPARISON: No prior cross-sectional imaging available for comparison. CARDIOVASCULAR FINDINGS: PULMONARY ARTERIES: Normal-caliber central pulmonary arteries (mainpulmonary artery diameter 29 mm). No pulmonary embolism. AORTA: No acute aortic syndrome, including no aortic dissection,penetrating atherosclerotic ulcer, expanding aneurysm, or aortic dissection. Left-sided thoracic aorta andaortic arch. Normal-caliber ascending aorta (mid-ascending aorta diameter 27 mm). No atheroscleroticplaque of the aortic root, ascending aorta, aortic arch. Minimal noncalcified atherosclerotic plaqueof the descending thoracic aorta with no significant associated stenosis. Normal-variant aortic archbranching anatomy (common origin of the innominate and left common carotid arteries). Branch vesselsare widely patent where visualized along their proximal courses. Proximal visceral arteries,including celiac trunk, superior mesenteric artery, and single right renal artery are widelypatent where visualized. CORONARY ARTERIES: Quality: Partially diagnostic; diagnostic utility is limited secondary torelative photopenia, incomplete contrast opacification, and lack of premedication (n.b.,patient declined sublingual nitroglycerin). Origins/course: Conventional origins of the right and left coronaryarteries. Dominance: Right. Left Main Coronary: Widely patent without detectable plaque and/orstenosis. Left Anterior Descending: Proximal vessel is widely patent withoutdetectable plaque and/or stenosis. The remainder of the vessel, including diagonal branches, isnon- diagnostic. Left Circumflex: Proximal vessel is widely patent without detectableplaque and/or stenosis. Distal vessel, including obtuse marginal branches is non-diagnostic. Right Coronary: Immediate proximal vessels widely patent without plaqueand/or stenosis; however, the remainder of the vessel is non-diagnostic secondary to limitedcontrast opacification. OTHER CARDIAC FINDINGS: VENTRICLES: Left ventricle: Normal left atrial chamber size by qualitative assessment.Concentrically increased left ventricular myocardial wall thickness with asymmetric involvement ofthe ventricular septum to approximately 19 mm at the basal anteroseptum and 19 mm at mid-cavitylevel. Apical displacement of the anterolateral papillary muscle. No resting regional wall motionabnormalities. No resting first-pass perfusion defects. No resting left ventricular outflow tractobstruction. No intracardiac mass/thrombus. Right ventricle: No intracardiac mass/thrombus. ATRIA: Left atrium: Enlarged left atrial chamber size by qualitative assessment.No intracardiac mass/thrombus, including of the well-opacified left atrial appendage. Right atrium: Enlarged right atrial chamber size by qualitativeassessment. VALVES: Aortic: Tricuspid aortic valve with normal cusp thickness and no aorticvalve calcification. Normal cusp mobility. Mitral: No mitral annular calcification. Normal mitral valve leafletthickness. Chordal systolic anterior motion without systolic anterior motion of the mitral valveleaflets. Pulmonic: Tricuspid pulmonic valve with normal cusp thickness andmobility. Tricuspid: Tricuspid valve not well visualized. PERICARDIUM: No pericardial thickness where visualized. No pericardialcalcification. Physiologic pericardial fluid without effusion. ADDITIONAL NONCARDIOVASCULAR FINDINGS: Subcentimeter noncalcified pulmonary nodule right upper lobe (3 x 4 mmwith surrounding groundglass opacification, series 6, image 225 and 4 mm, series 6, image 78) and leftlower lobe (3 mm, series 6, image 235). Subcentimeter calcified pulmonary nodule left lower lobe (2mm, series 6, image 274) consistent with prior granulomatous process. Clear central airways. Nopleural effusions, pneumothoraces, or masses. Subtle diffuse mosaic attenuation consistent with small airways disease. CAD-RADS CATEGORIES: CORONARY STENOSIS: (based on most severe single lesion) 0: 0%, No stenosis 1: 1-24%, Minimal stenosis 2: 25-49%, Mild stenosis 3: 50-69%, Moderate stenosis 4: 70-99%, Severe stenosis 5: 100%, Occluded CORONARY PLAQUE: (based on overall plaque burden) P1: Mild plaque P2: Moderate plaque P3: Severe plaque P4: Extensive plaque MODIFIERS: N: Non-diagnostic segment(s) S: Stent G: Graft HRP: High-risk plaque (two or more of the following: spottycalcifications, low attenuation plaque, positive remodeling, napkin ring sign) E: Exceptions (including coronary dissection, anomaly, aneurysm, fistula,etc.) IMPRESSION: 1. No acute aortic syndrome. 2. No pulmonary embolism. 3. Non-diagnostic coronary artery evaluation; the proximal left and rightcoronary arteries are widely patent, though the remainder of the coronary arteries isnon-diagnostic. CAD-RADS N. 4. Marked concentrically increased left ventricular myocardial wallthickness with asymmetric involvement of the basal and mid-cavitary ventricular septum (to cafrfjubt24 mm). While findings may be seen in long-standing systemic hypertension and end-stage renaldisease, additional considerations include hypertrophic cardiomyopathy and associatedphenocopies. 5. Subcentimeter noncalcified pulmonary nodules present bilaterally,including in the right upper lobe with adjacent ground-glass opacities. Recommend outpatient follow-upCT chest in three months for surveillance. Haresh Conroy P.A.-C. IMKirk CT PROCEDURE S * CT Head without IV Contrast (10/08/2022 10:42 AM CDT) Anatomical Region Laterality Modality Head, Neuroradiology RST [facility] , Neuroradiology [facility], Neuroradiology [facility] N/A Computed Tomography, Compute d Tomography 10/08/2022 10:1 3 AM CDT Impressions 10/08/2022 10:59 AM CDT No acute intracranial abnormality. Narrative 10/08/2022 10:59 AM CDT EXAM: CT HEAD WITHOUT IV CONTRAST COMPARISON: None FINDINGS: No acute intracranial hemorrhage, mass effect, or CT evidence for acute infarct. Normal caliber ventricles. Subtle small zones of chronic-appearing low-attenuation changes within the white matter of both frontal lobes. Patent basal cisterns. Mild nonspecific white matter hypoattenuation. Disconjugate gaze. Mild polypoid mucosal thickening in the left maxillary antrum. 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 Procedure Note Senthil Jenkins M.D. - 10/08/2022 EXAM: CT HEAD WITHOUT IV CONTRAST COMPARISON: None FINDINGS: No acute intracranial hemorrhage, mass effect, or CT evidence for acuteinfarct. Normal caliber ventricles. Subtle small zones of chronic-appearing low-attenuationchanges within the white matter of both frontal lobes. Patent basal cisterns. Mild nonspecific whitematter hypoattenuation. Disconjugate gaze. Mild polypoid mucosal thickening in the left maxillaryantrum. 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 IMPRESSION: No acute intracranial abnormality. Haresh Conroy P.A.-C. IMG CT PROCEDURE S * DX Chest AP or PA and Lateral 2 Views (10/08/2022 9:35 AM CDT) Anatomical Region Laterality Modality Chest, Thoracic RST LOS, Tho racic ARZ LOS, Thoracic FLA LOS N/A Digital Radiography 10/08/2022 9:47 AM CDT Impressions 10/08/2022 9:50 AM CDT No significant change since 09/22/2022. Borderline enlarged cardiac silhouette. Pulmonary vascular congestion. No consolidation, pleural effusion or pneumothorax. Narrative 10/08/2022 9:50 AM CDT EXAM: ??DX CHEST AP OR PA AND LATERAL 2 VIEWS Procedure Note Star Singh M.D. - 10/08/2022 EXAM: DX CHEST AP OR PA AND LATERAL 2 VIEWS IMPRESSION: No significant change since 09/22/2022. Borderline enlarged cardiacsilhouette. Pulmonary vascular congestion. No consolidation, pleural effusion orpneumothorax. Haresh Conroy P.A.-C. IMG DIAGNOSTIC I MAGING PROCEDURES * Patient Status (10/08/2022 9:01 AM CDT) FIO2 0.21 0.21=AIR 10/08/2022 9:07 AM CDT STMA Spont. breaths/min 17 10/08/2022 9:07 AM CDT STMA Blood 10/08/2022 9:01 AM CDT 10/08/2022 9:07 AM CDT Haresh Conroy P.A.-C. LAB BLOOD NON AD D-ON Performing Organization Address City/[facility] Co de Phone Number [facility] [address] [place] [address], [facility] STMA [facility] [address] [place] [address] * (ABNORMAL) Magnesium (10/08/2022 9:01 AM CDT) Magnesium, S 2.4(H) 1.7 - 2.3 mg/dL 10/08/2022 10:09 AM CDT DTL Blood (Blood, Venous) 10/08/2022 9:01 AM CDT 10/08/2022 9:44 AM CDT Haresh Conroy P.A.-C. LAB BLOOD ADD-ON Performing Organization Address [facility] Co de Phone Number [facility] [address] [place] [address], [facility] [address] [place] [address] * Prothrombin Time (PT) (10/08/2022 9:01 AM CDT) Prothrombin Time, P 10.0 9.4 - 12.5 sec 10/08/2022 9:15 AM CDT STMA INR 0.9 0.9 - 1.1 10/08/2022 9:15 AM CDT STMA Comment: ----ADDITIONAL INFORMATION---- Standard intensity warfarin therapeutic range: 2.0 to 3.0 ?? High intensity warfarin therapeutic range: 2.5 to 3.5 Blood (Blood, Venous) 10/08/2022 9:01 AM CDT 10/08/2022 9:07 AM CDT Haresh Conroy P.A.-C. LAB BLOOD ADD-ON Performing Organization Address City/[facility]/ZIP Co de Phone Number [facility] [address] [place] [address], [facility] [address] [place] [address] * (ABNORMAL) Troponin T, Baseline, 5th gen (10/08/2022 9:01 AM CDT) Troponin T, Baseline, 5th gen 93(H) <=15 ng/L 10/08/2022 10:48 AM CDT DTL Blood (Blood, Venous) 10/08/2022 9:01 AM CDT 10/08/2022 9:07 AM CDT Haresh Conroy P.A.-C. LAB BLOOD TROPON IN Performing Organization Address [facility] Co de Phone Number [facility] [address] [place], [place] [id number] [place] [address] [address] [place] [address] * Lipase (10/08/2022 9:01 AM CDT) Lipase, S 52 13 - 60 U/L 10/08/2022 10:09 AM CDT DTL Blood (Blood, Venous) 10/08/2022 9:01 AM CDT 10/08/2022 9:44 AM CDT Haresh Conroy P.A.-C. LAB BLOOD ADD-ON Performing Organization Address [facility] Co de Phone Number [facility] [address] [place], [place] [phone] [place] [address] [address] [place] [address] * Hepatic Function Panel (10/08/2022 9:01 AM CDT) Bilirubin, Total, S 0.5 <=1.2 mg/dL 10/08/2022 10:09 AM CDT DTL Bilirubin, Direct, S <0.2 0.0 - 0.3 mg/dL 10/08/2022 10:09 AM CDT DTL Aspartate Aminotransferase (AST), S 12 8 - 48 U/L 10/08/2022 10:09 AM CDT DTL Alanine Aminotransferase (ALT), S 13 7 - 55 U/L 10/08/2022 10:09 AM CDT DTL Alkaline Phosphatase, S 44 40 - 129 U/L 10/08/2022 10:09 AM CDT DTL Albumin, S 4.9 3.5 - 5.0 g/dL 10/08/2022 10:09 AM CDT DTL Protein, Total, S 7.3 6.3 - 7.9 g/dL 10/08/2022 10:09 AM CDT DTL Blood (Blood, Venous) 10/08/2022 9:01 AM CDT 10/08/2022 9:44 AM CDT Haresh Conroy P.A.-C. LAB BLOOD ADD-ON [address] [address], [facility] [place] [address] * (ABNORMAL) Basic Metabolic Panel (10/08/2022 9:01 AM CDT) Potassium, P 4.6 3.6 - 5.2 mmol/L 10/08/2022 10:05 AM CDT DTL Sodium, P 140 135 - 145 mmol/L 10/08/2022 10:05 AM CDT DTL Chloride, P 95(L) 98 - 107 mmol/L 10/08/2022 10:05 AM CDT DTL Bicarbonate, P 22 22 - 29 mmol/L 10/08/2022 10:05 AM CDT DTL Anion Gap, P 23(H) 7 - 15 10/08/2022 10:05 AM CDT DTL BUN (Blood Urea Nitrogen), P 59(H) 8 - 24 mg/dL 10/08/2022 10:05 AM CDT DTL Creatinine 17.48(H) 0.74 - 1.35 mg/dL 10/08/2022 10:05 AM CDT DTL Estimated GFR (eGFR) <15(L) >=60 mL/min/BSA 10/08/2022 10:05 AM CDT DTL Comment: Estimated GFR calculated using the 2020 CKD_EPI creatinine equation. Calcium, Total, P 10.5(H) 8.6 - 10.0 mg/dL 10/08/2022 10:05 AM CDT DTL Glucose, P 97 70 - 140 mg/dL 10/08/2022 10:05 AM CDT DTL Blood (Blood, Venous) 10/08/2022 9:01 AM CDT 10/08/2022 9:07 AM CDT Haresh Conroy P.A.-C. LAB BLOOD ADD-ON Performing Organization Address City/State/[facility] [place] [address], [facility] [place] [address] * Blood Gas without Coox, Venous (10/08/2022 9:01 AM CDT) [facility] pO2, Venous 67 Not applicable mm Hg 10/08/2022 9:11 AM CDT STMA pCO2, Venous 44 41 - 51 mm Hg 9:11 AM CDT STMA pH, Venous 7.38 7.32 - 7.43 pH 10/08/2022 9:11 AM CDT STMA Base Excess, Venous 1 Not applicable mmol/L 10/08/2022 9:11 AM CDT STMA HCO3, Venous 26 Not applicable mmol/L 10/08/2022 9:11 AM CDT STMA Sample Site, Venous Venipunct 10/08/2022 9:11 AM CDT STMA Blood (Blood, Venous) 10/08/2022 9:01 AM CDT 10/08/2022 9:07 AM CDT Haresh Conroy P.A.-C. LAB BLOOD NON AD D-ON [facility] [address] [place] [address], [facility] STMA [facility] [address] [place] [address] * (ABNORMAL) CBC with Differential, Blood (10/08/2022 9:01 AM CDT) Hemoglobin 13.3 13.2 - 16.6 g/dL 10/08/2022 9:09 AM CDT STMA Hematocrit 42.3 38.3 - 48.6 % 10/08/2022 9:09 AM CDT STMA Erythrocytes 4.66 4.35 - 5.65 x10(12)/L 10/08/2022 9:09 AM CDT STMA MCV 90.8 78.2 - 97.9 fL 10/08/2022 9:09 AM CDT STMA RBC Distrib Width 15.3(H) 11.8 - 14.5 % 10/08/2022 9:09 AM CDT STMA Platelet Count 379(H) 135 - 317 x10(9)/L 10/08/2022 9:09 AM CDT STMA Leukocytes 7.9 3.4 - 9.6 x10(9)/L 10/08/2022 9:09 AM CDT STMA Neutrophils 3.84 1.56 - 6.45 x10(9)/L 10/08/2022 9:09 AM CDT STMA Lymphocytes 2.11 0.95 - 3.07 x10(9)/L 10/08/2022 9:09 AM CDT STMA Monocytes 0.86(H) 0.26 - 0.81 x10(9)/L 10/08/2022 9:09 AM CDT STMA Eosinophils 0.97(H) 0.03 - 0.48 x10(9)/L 10/08/2022 9:09 AM CDT STMA Basophils 0.09(H) 0.01 - 0.08 x10(9)/L 10/08/2022 9:09 AM CDT STMA Blood (Blood, Venous) 10/08/2022 9:01 AM CDT 10/08/2022 9:07 AM CDT Haresh Conroy P.A.-C. LAB BLOOD ADD-ON [facility] [address] [place] [address], [facility] [address] [place] [address] * ECG 12 Lead (10/08/2022 8:47 AM CDT) Ventricular Rate ECG/Min 103 BPM MUSE IN Interval 138 ms MUSE QRSD Interval 90 ms MUSE QT Interval 366 ms MUSE QTC Interval 479 ms MUSE P Western 55 degrees MUSE R Western 98 degrees MUSE T Wave Western 56 degrees MUSE 10/08/2022 8:47 AM CDT 10/08/2022 8:49 AM CDT Impressions MUSE - 10/08/2022 8:49 AM CDT Sinus tachycardia Left atrial enlargement Rightward axis Minimal voltage criteria for LVH, may be normal variant Slight ST elevation in Anteroseptal leads When compared with ECG of 22-SEP-2022 21:15, Premature ventricular complexes are no longer present Reviewed by ELENA Fulton Narrative Procedure Note Theron Coley M.D., Ph.D. - 10/08/2022 IMPRESSION: Sinus tachycardia Left atrial enlargement Rightward axis Minimal voltage criteria for LVH, may be normal variant Slight ST elevation in Anteroseptal leads When compared with ECG of 22-SEP-2022 21:15, Premature ventricular complexes are no longer present Reviewed by ELENA Fulton Haresh Conroy P.A.-C. ECG ORDERABLES MUSE NA documented in this encounter Visit Diagnoses Diagnosis Pain Chest Atypical- Primary Pain Chest Atypical Shortness Of Breath Dyspnea On Exertion documented in this encounter Admitting Diagnoses Diagnosis Pain Chest Atypical documented in this encounter Administered Medications Inactive Administered Medications - up to 3 most recent administrations Medication Order MAR Action Action Date Dose Rate Site aspirin chewable tablet 324 mg 324 mg, oral, Once, On Fri10/08/22 at 0839, For 1 dose Given 10/08/2022 8:46 AM CDT 324 mg fentaNYL injection 75 mcg (SUBLIMAZE) 75 mcg, intravenous, Once, On Fri10/08/22 at 0956, For 1 dose Given 10/08/2022 9:58 AM CDT 75 mcg iohexoL 350 mg iodine/mL solution 1-200 mL (OMNIPAQUE) 1-200 mL, intravenous, Once in imaging, contrast, Starting on Fri10/08/22 at 1021, For 1 dose, Imaging Protocol Orders, Dose per Radiant Medication Guidelines Given 10/08/2022 10:24 AM CDT 100 mL NaCl 0.9 % bolus 250 mL 250 mL, intravenous, at 250 mL/hr, Administer over 1 Hours, Once, On Fri10/08/22 at 0957, For 1 dose New Bag 10/08/2022 9:59 AM CDT 250 mL 250 mL/hr nitroglycerin SL tablet 0.4 mg (NITROSTAT) 0.4 mg, sublingual, Every 5 min PRN, chest pain, Starting on Fri10/08/22 at 0933, For 3 doses, May administer up to 3 doses per episode. Dissolve under the tongue. Do NOT crush, chew, split or swallow tablet. Given 10/08/2022 9:37 AM CDT 0.4 mg ondansetron (PF) injection 4 mg (ZOFRAN) 4 mg, intravenous, Once as needed, nausea, Starting on Fri10/08/22 at 1526, For 1 dose, Select if IV access obtained. Given 10/08/2022 3:31 PM CDT 4 mg sodium chloride (PF) 0.9 % injection 1-100 mL 1-100 mL, intravenous, Once, On Fri10/08/22 at 1022, For 1 dose, Imaging Protocol Orders Given 10/08/2022 10:24 AM CDT 50 mL sodium chloride 0.9 % flush 1-250 mL 1-250 mL, intravenous, As needed, line care, For priming and rinse back post dialysis, Starting on Fri10/08/22 at 1409, Dialysis, Dialysis order only. Given 10/08/2022 3:00 PM CDT 250 mL sodium chloride 0.9 % injection 10-60 mL 10-60 mL, intravenous, As needed, line care, To maintain line patency, Starting on Fri10/08/22 at 1409, Dialysis Given 10/08/2022 3:00 PM CDT 40 mL documented in this encounter Active and Recently Administered Medications Times are shown in CDT. Scheduled Medication Order 10/06/2022 10/07/2022 10/08/2022 aspirin chewable tablet 324 mg (COMPLETED) 324 mg, oral, Once, On Fri10/08/22 at 0839, For 1 dose 0846 (Given - Provid er: Carla Schroeder R.N.) fentaNYL injection 75 mcg (SUBLIMAZE) (COMPLETED) 75 mcg, intravenous, Once, On Fri10/08/22 at 0956, For 1 dose 0958 (Given - Provid er: Carla Schroeder R.N.) fentaNYL injection 75 mcg (SUBLIMAZE) 75 mcg, intravenous, Once, On Fri10/08/22 at 1143, For 1 dose 1326 (Not Given - Pr ovider: Carla Schroeder R.N. - Reason: Patient/family refused) NaCl 0.9 % bolus 250 mL (COMPLETED) 250 mL, intravenous, at 250 mL/hr, Administer over 1 Hours, Once, On Fri10/08/22 at 0957, For 1 dose 0959 (New Bag - Prov ider: Carla Schroeder R.N.)[id number] (Stopped - Provider: Carla Schroeder R.N.) nitroglycerin SL tablet 0.4-0.8 mg (NITROSTAT) 0.4-0.8 mg, sublingual, Once, On Fri10/08/22 at 1022, For 1 dose, Imaging Protocol Orders, May administer up to 3 doses per episode. Dissolve under the tongue. Do NOT crush, chew, split or swallow tablet. 1027 (Not Given - Pr ovider: Laney Matute R.N. - Reason: Patient/family refused) sodium chloride (PF) 0.9 % injection 1-100 mL (COMPLETED) 1-100 mL, intravenous, Once, On Fri10/08/22 at 1022, For 1 dose, Imaging Protocol Orders 1024 (Given - Provid er: Laney Matute R.N.) PRN Medication Order 10/06/2022 10/07/202210/08/2022 iohexoL 350 mg iodine/mL solution 1-200 mL (OMNIPAQUE) (COMPLETED) 1-200 mL, intravenous, Once in imaging, contrast, Starting on Fri10/08/22 at 1021, For 1 dose, Imaging Protocol Orders, Dose per Radiant Medication Guidelines 1024 (Given - Provid er: Laney Matute R.N.) nitroglycerin SL tablet 0.4 mg (NITROSTAT) 0.4 mg, sublingual, Every 5 min PRN, chest pain, Starting on Fri10/08/22 at 0933, For 3 doses, May administer up to 3 doses per episode. Dissolve under the tongue. Do NOT crush, chew, split or swallow tablet. 0937 (Given - Provid er: Carla Schroeder R.N.) ondansetron (PF) injection 4 mg (ZOFRAN) (COMPLETED)(Linked Group 1) 4 mg, intravenous, Once as needed, nausea, Starting on Fri10/08/22 at 1526, For 1 dose, Select if IV access obtained. 1531 (Given - Provid er: James Peguero, R.N.) sodium chloride 0.9 % flush 1-250 mL (CANCELED) 1-250 mL, intravenous, As needed, line care, For priming and rinse back post dialysis, Starting on Fri10/08/22 at 1409, Dialysis, Dialysis order only. 1500 (Given - Provid er: Mandy Hart, R.N.) sodium chloride 0.9 % injection 10-60 mL (CANCELED) 10-60 mL, intravenous, As needed, line care, To maintain line patency, Starting on Fri10/08/22 at 1409, Dialysis 1500 (Given - Provid er: Mandy Hart, R.N.) Linked Groups Order Group 1: ondansetron ODT disintegrating tablet 4 mg (ZOFRAN-ODT) (COMPLETED) 4 mg, oral, Once as needed, nausea, Starting on Fri10/08/22 at 1526, For 1 dose, Select if no IV access. When splitting ODT at bedside, handle with gloves and a pill splitter to prevent moisture contact. Or ondansetron (PF) injection 4 mg (ZOFRAN) (COMPLETED)Jump to med 4 mg, intravenous, Once as needed, nausea, Starting on Fri10/08/22 at 1526, For 1 dose, Select if IV access obtained. documented in this encounter Care Teams Tool Design Draftsperson Relationship Specialty Start Date End Date None Reported, Pcp PCP - General Family Medicine 07/28/22 02/03/23 documented as of this encounter
--- OUTSIDE RECORDS SUMMARY | 2023-05-08 16:26 | XMS_ITS | Encounter Summary ---
Author Name Unknown Organization [facility] Address [address] [place] [address] Care Team Providers Care Tankage Grinder Name Role Phone None Reported, Pcp Primary Care Provider Unavail able Encounter Details Date Type Department Care Team (Late st Contact Info) Description 09/24/2022 Clinical Communication Department of Radiology in [place], [place] [address] [phone] [place] [address] [address] Social History Tobacco Use Types Packs/Day Years [...] on filedocumented in this encounter Care Teams Tankage Grinder Relationship Specialty Start Date End Date None Reported, Pcp PCP - General Family Medicine 07/28/22 02/03/23 documented as of this encounter
--- OUTSIDE RECORDS SUMMARY | 2023-05-08 16:26 | XMS_ITS | Encounter Summary ---
Author Name Unknown Organization [facility] Address [address] [place] [id number] Care Team Providers Care Parts Counter Clerk Name Role Phone None Reported, Pcp Primary Care Provider Unavail able Reason for Visit * Reason Comments Chest Pain Pain With Breathing Encounter Details Date Type Department Care Team (Late st Contact Info) Description 09/22/2022 9:00 PM CDT - 09/23/2022 1:[address] [facility] Emergency Department [address] [place] [phone] Mike Luz M.D., M.B.A. [address] [phone] Carlos Brown M.D., M.S. [address] [place] [phone] Pain Chest (Primary Dx); Shortness Of Breath Discharge Disposition: Home or Self Care Social [...] Sign Reading Time Taken Comments Blood Pressure 153/78 09/23/2022 12:45 AM CDT Pulse 103 09/23/2022 1:00 AM CDT Temperature 36.6 ??C (97.9 ??F) 09/23/2022 12:00 AM C DT Respiratory Rate 20 09/23/2022 1:00 AM CDT Oxygen Saturation 95% 09/23/2022 1:00 AM CDT Inhaled Oxygen Concentration - - Weight - - Height - - Body Mass Index - - documented in this encounter Discharge Instructions * Discharge Instructions* Carlos Brown M.D., M.S. - 09/23/2022 12:49 AM CDT Please follow up at Dialysis on Friday, as previously scheduled. * Attachments The following attachments cannot be sent through Care Everywhere. * Nonspecific Chest Pain Adult (Angolan) documented in this encounter Medications at Time of Discharge Medication Sig Dispensed Refills Start Date End Date amLODIPine (NORVASC) 10 mg tablet Take 1 tablet (10 mg total) by mouth daily. 90 tablet 3 05/07/2022 10/15/2022 benazepriL (LOTENSIN) 20 mg tablet Take 1 tablet (20 mg total) by mouth 2 (two) times a day. 180 tablet 3 05/07/2022 10/15/2022 carvedilol (COREG) 0.7813 mg tablet Take 12.5 [...] as of this encounter Progress Notes * Rustam Stein L.I.C.S.W., M.S.W. - 09/23/2022 1:01 AM CDT SUBJECTIVE Emergency Department Social Work is consulted by nursing to assist with patient return transportation home. Nursing reports patient is alert and oriented, on room air, and appropriate for ambulatory transportation. Patient is requesting to go to the below address in [facility]. OBJECTIVE Emergency Department Social work was consulted to assist with transportation back to request of [address] [facility]. Social work arranged transportation with [employer] (phone: [phone]). ASSESSMENT / PLAN ASSESSMENT Transport resources were explored and arranged to assist with the patient's needs. The patient appears to have insight into their needs at this time. PLAN 1. [employer] (phone: [phone]) to provide return transportation to patient's requested dropoff. 2. Please contact social work if further supportive or dismissal needs arise. Cait Galeana, M.S.W. 09/23/2022 documented in this encounter ED Notes * Carlos Brown M.D., M.S. - 09/23/2022 12:44 AM CDT Care of patient transferred to nm by Dr. Luz. The patient was signed out to the night ED team with a pending workup. He had an acute on chronic headache that now feels better. He had chest pain in the setting of prior heart disease, but serial troponins are reassuring. He feels better, noting he feels 'fine' now. He was concerned about needingdialysis before Friday (30 hours from now), and I shared how his potassium, BNP, and CXR all suggest that he does not need early dialysis. He can be dismissed. VITAL SIGNS BP 141/63 Pulse 109 Temp 36.6 ??C (Oral) Resp 20 SpO2 92% Final Diagnoses: as of 09/23/2247 Pain Chest Shortness Of Breath Carlos Brown M.D., M.S. 09/23/2247 * Garth Doty M.D. - 09/22/2022 10:03 PM CDT SUBJECTIVE CHIEF COMPLAINT/REASON FOR VISIT Chest Pain and Pain With Breathing HISTORY OF PRESENT ILLNESS 37-year-old man presenting with chest pain. Medical history most significant for history of NSTEMI,ESRD on dialysis secondary to hypertension. He reports that at 1:00 p.m. today he developed chest pain that is 10/10. He was sitting on the couch watching TV when the chest pain started. He describesthe pain as stabbing and pressure-like. No nausea, vomiting or diaphoresis. He has had a cough for s everal months but no change in his cough. He denies any recent illness and was feeling well otherwise prior to this event. He reports that he feels volume overloaded and that he might need dialysis sooner than his Friday//Friday schedule. Given the pain did not resolve decided to call EMS brought him here to the ED. he received nitro, with no resolution of the pain. He developed headache with the nitro. He was subsequently given fentanyl and Versed by EMS. This helped chest pain and headache. History provided by: Patient and EMS personnel REVIEW OF SYSTEMS Constitutional: Negative for fever. Respiratory: Positive for shortness of breath. Cardiovascular: Positive for chest pain. Negative for leg swelling. Gastrointestinal: Negative for abdominal pain, nausea and vomiting. OBJECTIVE Initial Vitals [09/22/222106] Temp Pulse Heart Rate Resp BP SpO2 Pain Score 6 PHYSICAL EXAMINATION Constitutional: Vitals reviewed. He appears distressed. HENT: Head: Atraumatic. Eyes: Conjunctivae are normal. Neck: No JVD present. Cardiovascular: Regular rhythm. Tachycardia present. No murmur heard.Edema: no edema noted Pulmonary/Chest: Effort normal. No respiratory distress. Abdominal: Soft. There is no abdominal tenderness. Skin: Skin is warm and dry. He is not diaphoretic. ASSESSMENT/PLAN Assessment and Plan 37 year old man presenting with chest pain. History most significant for NSTEMI and ESRD on HD 2/2 HTN. We will evaluate his chest pain with ACS workup, including EKG, troponin. Will check CBC, BMP and BNP. Will check for fluid overload with CXR. We considered PE, but he does not have history most c onsistent with PE, significant SOB,or new O2 requirement. If workup is unrevealing, will plan to discharge with PCP follow up. We will treat his DAS and chest pain with gentle IV fluids, NSAIDs, compazine and dilaudid. Care signed out to oncoming ED team.. Final Diagnoses: as of 09/24/22 1225 Pain Chest Shortness Of Breath Garth Doty M.D. Resident 09/24/22 1234 * Mike Luz M.D., M.B.A. - 09/22/2022 9:06 PM CDT CHIEF COMPLAINT/REASON FOR VISIT Chest Pain and Pain With Breathing HISTORY OF PRESENT ILLNESS Salbador Justin is a 37 y.o. male who presents to the emergency department with Chest Pain and Pain With Breathing. OBJECTIVE Initial Vitals Temperature 09/23/22 0000 36.6 ??C Pulse Rate 09/22/22 2130 104 Heart Rate 09/22/22 2130 105 Resp Rate 09/22/222129 23 Blood Pressure 09/22/220 141/78 SpO2 09/22/22 213 97 % Pain Score 09/22/227 6 PHYSICAL EXAMINATION Constitutional: No distress. HENT: Head: Normocephalic and atraumatic. Nose: Nose normal. Eyes: Conjunctivae are normal. Cardiovascular: Normal rate. Pulmonary/Chest: Effort normal. Abdominal: Soft. There is no abdominal tenderness. There is no rebound and no guarding. Musculoskeletal: General: Normal range of motion. Neurological: Alert. Normal speech. Skin: Skin is normal color. Psychiatric: He has a normal mood and affect. TESTING/MEDICATIONS ECG 12 Lead Result Date: 09/22/2022 Sinus tachycardia Premature ventricular complexes Left atrial enlargement Nonspecific ST and T wave abnormality When compared with ECG of 28-JUL-2022 19:43, Premature ventricular complexes are now present Reviewed by Perfecto Lugo III, CRAT DX Chest AP or PA and Lateral 2 Views Final Result Since 07/28/2022, decreased bilateral lower lung and perihilar opacities. Remainder unchanged. No pneumothorax, pleural effusion, or consolidation. Borderline enlarged cardiac silhouette. Chest otherwise normal. Medications NaCl 0.9 % bolus 500 mL (0 mL intravenous Stopped 09/22/222353) ketorolac injection 15 mg (TORADOL) (15 mg intravenous Given 09/22/222253) prochlorperazine injection 5 mg (COMPAZINE) (5 mg intravenous Given 09/22/222253) Discharge Medication List as of 09/23/2022 12:49 AM ASSESSMENT/PLAN Salbador Justin is a 37 y.o. male who presents to the emergency department with Chest Pain and Pain With Breathing. The patient is a 37-year-old male with a past medical history of end-stage renal disease, hyperkalemia presenting to emergency department chest pain. It started around 1:00 p.m.. He was brought in by EMS. EMS gave him both fentanyl and Versed. He states he has an allergy to aspirin. He gets dialyzed Friday, , Friday and was last dialyzed on Friday. On arrival he is complaining of chest pain. We will get an EKG to assess for STEMI. Otherwise he feels that he may need dialysis early. Workup will be CBC, BMP, chest x-ray, proBNP, cardiac biomarker panel, and EKG. Care was signed out to the oncoming team at the end of my shift pending workup. ED COURSE: ED Course as of 09/26/222312 Sun September 22, [id number] White Blood Cell Count: 7.2 Final Diagnoses: as of 09/26/222312 Pain Chest Shortness Of Breath I have personally seen and examined this patient. I have fully participated in the care of this patient. I have reviewed all clinical information including history, physical exam, orders, and plan. Ana Luisa with the note of the resident. Mike Luz M.D., M.B.A. 09/26/22 [id number] * Juana Sanon R.N., JOSE - 09/22/2022 9:00 PM CDT Patient with history of dialysis presents with uncotrolled chest pain. Fentanyl and Versed given MOLDING SUPERVISOR. Juana Sanon R.N., JOSE 09/22/222100 documented in this encounter Plan of Treatment Not on file documented as of this encounter Procedures Procedure Name Priority Date/Time Associated Diagnosis Comments TROPONIN T, 2H/6H, 5TH GEN, P Timed 09/22/2022 11:43 PM CDT DX CHEST AP OR PA AND LATERAL 2 VIEWS RAD - Semiurgent (Fast; most ED patients; some inpatients) 09/22/2022 9:39 PM CDT TROPONIN T, BASELINE, 5TH GEN, P STAT 09/22/2022 9:21 PM CDT NT-PRO B-TYPE NATRIURETIC PEPTIDE (BNP), S STAT 09/22/2022 9:21 PM CDT CBC WITH DIFFERENTIAL, B STAT 09/22/2022 9:21 PM CDT BASIC METABOLIC PANEL, S/P STAT 09/22/2022 9:21 PM CDT ECG STAT 09/22/2022 9:15 PM CDT documented in this encounter Results * (ABNORMAL) Troponin T, 2h/6h, 5th Gen (09/22/2022 11:43 PM CDT) Troponin T, 2 hr, 5th gen 119(H) <=15 ng/L 09/23/2022 12:28 AM CDT [facility] Comment:Consider acute myoca rdial injury 2H Delta % 4 % 09/23/2022 12:28 AM CDT [facility] 2H Delta Interp Not Changing 09/23/2022 12:28 AM CDT [facility] Troponin T, 6 hr, 5th gen CANCELED ng/L 09/23/2022 2:38 PM CDT [facility] Comment: Specimen was not received. Result canceled by the ancillary. 6H Delta % CANCELED % 09/23/2022 2:38 PM CDT [facility] Comment:Result canceled by t he ancillary. 6H Delta Interp CANCELED 09/23/2022 2:38 PM CDT [facility] Comment:Result canceled by t he ancillary. Blood (Blood, Venous) 09/22/2022 11:43 PM CDT 09/22/2022 11:55 PM CDT Narrative [facility] - 09/23/2022 2:38 PM CDT Specimen Information: Specimen ID: [id number] Specimen Type: Blood Specimen Collection Start Date: 09/22/2022 11:43 PM Specimen Received Date: 09/22/2022 11:55 PM Specimen ID: [id number] Specimen Type: Blood Specimen Collection Start Date: 09/23/2022 ??2:38 PM Specimen Received Date: 09/23/2022 ??2:38 PM Mike Luz M.D., M.B.A. LAB BLOOD TR OPONIN [facility] [address] [place] [address], [facility] [address] [place] [address] * DX Chest AP or PA and Lateral 2 Views (09/22/2022 9:39 PM CDT) Anatomical Region Laterality Modality Chest, Thoracic RST LOS, Tho racic ARZ LOS, Thoracic FLA LOS N/A Digital Radiography 09/22/2022 9:41 PM CDT Impressions 09/23/2022 7:13 AM CDT Since 07/28/2022, decreased bilateral lower lung and perihilar opacities. Remainder unchanged. No pneumothorax, pleural effusion, or consolidation. Borderline enlarged cardiac silhouette. Chest otherwise normal. Narrative 09/23/2022 7:13 AM CDT EXAM: ??DX CHEST AP OR PA AND LATERAL 2 VIEWS Procedure Note Garth Cunningham M.D. - 09/23/2022 EXAM: DX CHEST AP OR PA AND LATERAL 2 VIEWS IMPRESSION: Since 07/28/2022, decreased bilateral lower lung and perihilar opacities.Remainder unchanged. No pneumothorax, pleural effusion, or consolidation. Borderlineenlarged cardiac silhouette. Chest otherwise normal. Mike Luz M.D., M.B.A. IM DIAGNOST IC IMAGING PROCEDURES * (ABNORMAL) NT-Pro B-Type Natriuretic Peptide (BNP) (09/22/2022 9:21 PM CDT) NT-Pro BNP 01897(H) <79 pg/mL 09/22/2022 9:59 PM CDT [facility] Comment: NT-proBNP values less than 300 pg/mL [...] 52 years of age. Blood (Blood, Venous) 09/22/2022 9:21 PM CDT 09/22/2022 9:26 PM CDT Mike Luz M.D., M.B.A. LAB BLOOD AD D-ON [facility] [address] [place] [address], [facility] [address] [place] [address] * (ABNORMAL) Troponin T, Baseline, 5th gen (09/22/2022 9:21 PM CDT) Troponin T, Baseline, 5th gen 114(H) <=15 ng/L 09/22/2022 9:50 PM CDT [facility] Comment:Consider acute myoca rdial injury Blood (Blood, Venous) 09/22/2022 9:21 PM CDT 09/22/2022 9:26 PM CDT Mike Luz M.D., M.B.A. LAB BLOOD TR OPONIN [facility] [address] [place] [address], [facility] [address] [place] [address] * (ABNORMAL) Basic Metabolic Panel (09/22/2022 9:21 PM CDT) Potassium, P 4.2 3.6 - 5.2 mmol/L 09/22/2022 9:43 PM CDT [facility] Sodium, P 140 135 - 145 mmol/L 09/22/2022 9:43 PM CDT [facility] Chloride, P 98 98 - 107 mmol/L 09/22/2022 9:43 PM CDT [facility] Bicarbonate, P 21(L) 22 - 29 mmol/L 09/22/2022 9:43 PM CDT [facility] Anion Gap, P 21(H) 7 - 15 09/22/2022 9:43 PM CDT [facility] BUN (Blood Urea Nitrogen), P 58(H) 8 - 24 mg/dL 09/22/2022 9:43 PM CDT [facility] Creatinine 13.61(H) 0.74 - 1.35 mg/dL 09/22/2022 9:43 PM CDT [facility] Estimated GFR (eGFR) <15(L) >=60 mL/min/BSA 09/22/2022 9:43 PM CDT [facility] Comment: Estimated GFR calculated using the 2020 CKD_EPI creatinine equation. Calcium, Total, P 9.8 8.6 - 10.0 mg/dL 09/22/2022 9:43 PM CDT [facility] Glucose, P 96 70 - 140 mg/dL 09/22/2022 9:43 PM CDT [facility] Blood (Blood, Venous) 09/22/2022 9:21 PM CDT 09/22/2022 9:26 PM CDT iMke Luz M.D., M.B.A. LAB BLOOD AD D-ON [facility] [address] [place] [address], [facility] ST[facility] [address] [place] [address] * (ABNORMAL) CBC with Differential, Blood (09/22/2022 9:21 PM CDT) Hemoglobin 12.2(L) 13.2 - 16.6 g/dL 09/22/2022 9:30 PM CDT [facility] Hematocrit 38.7 38.3 - 48.6 % 09/22/2022 9:30 PM CDT [facility] Erythrocytes 4.18(L) 4.35 - 5.65 x10(12)/L 09/22/2022 9:30 PM CDT [facility] MCV 92.6 78.2 - 97.9 fL 09/22/2022 9:30 PM CDT [facility] RBC Distrib Width 15.8(H) 11.8 - 14.5 % 09/22/2022 9:30 PM CDT [facility] Platelet Count 471(H) 135 - 317 x10(9)/L 09/22/2022 9:30 PM CDT [facility] Leukocytes 7.2 3.4 - 9.6 x10(9)/L 09/22/2022 9:30 PM CDT [facility] Neutrophils 3.68 1.56 - 6.45 x10(9)/L 09/22/2022 9:30 PM CDT [facility] Lymphocytes 1.71 0.95 - 3.07 x10(9)/L 09/22/2022 9:30 PM CDT [facility] Monocytes 0.96(H) 0.26 - 0.81 x10(9)/L 09/22/2022 9:30 PM CDT [facility] Eosinophils 0.81(H) 0.03 - 0.48 x10(9)/L 09/22/2022 9:30 PM CDT [facility] Basophils 0.08 0.01 - 0.08 x10(9)/L 09/22/2022 9:30 PM CDT [facility] Blood (Blood, Venous) 09/22/2022 9:21 PM CDT 09/22/2022 9:26 PM CDT Mike Luz M.D., M.B.A. LAB BLOOD AD D-ON Performing Organization Address [facility] de Phone Number [facility] [address] [place] [address], [facility] [address] [place] [address] * ECG 12 Lead (09/22/2022 9:15 PM CDT) Ventricular Rate ECG/Min 108 BPM MUSE IA Interval 142 ms MUSE QRSD Interval 90 ms MUSE QT Interval 376 ms MUSE QTC Interval 503 ms MUSE P [place] 48 degrees MUSE R [place] 86 degrees MUSE T Wave [place] 50 degrees MUSE 09/22/2022 9:15 PM CDT 09/22/2022 9:18 PM CDT Impressions MUSE - 09/22/2022 9:18 PM CDT Sinus tachycardia Premature ventricular complexes Left atrial enlargement Nonspecific ST and T wave abnormality When compared with ECG of 28-JUL-2022 19:43, Premature ventricular complexes are now present Reviewed by Perfecto Lugo III, CRAT Narrative Procedure Note Wil Pitt M.D. - 09/22/2022 IMPRESSION: Sinus tachycardia Premature ventricular complexes Left atrial enlargement Nonspecific ST and T wave abnormality When compared with ECG of 28-JUL-2022 19:43, Premature ventricular complexes are now present Reviewed by Perfecto Lugo III, CRAT Mike Luz M.D., M.B.A. ECG ORDERABL ES Performing Organization Address [facility] Co de Phone Number MUSE NA documented in this encounter Visit Diagnoses Diagnosis Pain Chest- Primary Shortness Of Breath documented in this encounter Administered Medications Inactive Administered Medications - up to 3 most recent administrations Medication Order MAR Action Action Date Dose Rate Site HYDROmorphone (PF) injection 0.5 mg (DILAUDID) 0.5 mg, intravenous, Every 30 min PRN, severe pain or score 7-10 of 10, Starting on 09/22/22 at 2243, For 3 doses Given 09/22/2022 11:49 PM CDT 0.5 mg Given 09/22/2022 10:54 PM CDT 0.5 mg ketorolac injection 15 mg (TORADOL) 15 mg, intravenous, Once, On 09/22/22 at 2244, For 1 dose, Adult IV push rate: Over 15 seconds. Peds IV push rate: Over 1 minute. Doses > 15 mg IV/IM are discouraged due to lack of additional analgesic benefit. Given 09/22/2022 10:54 PM CDT 15 mg NaCl 0.9 % bolus 500 mL 500 mL, intravenous, at 500 mL/hr, Administer over 1 Hours, Once, On 09/22/22 at 2244, For 1 dose New Bag 09/22/2022 11:01 PM CDT 500 mL 500 mL/hr prochlorperazine injection 5 mg (COMPAZINE) 5 mg, intravenous, Once, On 09/22/22 at 2244, For 1 dose Given 09/22/2022 10:54 PM CDT 5 mg documented in this encounter Active and Recently Administered Medications Times are shown in CDT. Scheduled Medication Order 09/21/2022 09/22/2022 09/23/2022 ketorolac injection 15 mg (TORADOL) (COMPLETED) 15 mg, intravenous, Once, On 09/22/22 at 2244, For 1 dose, Adult IV push rate: Over 15 seconds. Peds IV push rate: Over 1 minute. Doses > 15 mg IV/IM are discouraged due to lack of additional analgesic benefit. 2254 (Given - Provider: Jesusita Cardenas R.N.) NaCl 0.9 % bolus 500 mL (COMPLETED) 500 mL, intravenous, at 500 mL/hr, Administer over 1 Hours, Once, On 09/22/22 at 2244, For 1 dose 2301 (New Bag - Provider: Jesusita Cardenas R.N.)0017 (Stopped - Provider: Jasmin Wilson R.N. - Comment: Pt asked to have fluids stopped) prochlorperazine injection 5 mg (COMPAZINE) (COMPLETED) 5 mg, intravenous, Once, On 09/22/22 at 2244, For 1 dose 2254 (Given - Provider: Jesusita Cardenas R.N.) PRN Medication Order 09/21/2022 09/22/2022 09/23/2022 HYDROmorphone (PF) injection 0.5 mg (DILAUDID) 0.5 mg, intravenous, Every 30 min PRN, severe pain or score 7-10 of 10, Starting on 09/22/22 at 2243, For 3 doses 2254 (Given - Provider: Jesusita Cardenas R.N.)5291 (Given - Provider: Jsamin Wilson R.N.) documented in this encounter Care Teams Parts Counter Clerk Relationship Specialty Start Date End Date None Reported, Pcp PCP - General Family Medicine 07/28/22 02/03/23 documented as of this encounter
--- OUTSIDE RECORDS SUMMARY | 2023-05-08 16:27 | XMS_ITS | Encounter Summary ---
Author Name Unknown Organization [facility] Address [address] [place] [address] Care Team Providers Care Grades 7 And 8 Teacher Name Role Phone Unavailable Primary Care Provider Unavailabl e Encounter Details Date Type Department Care Team (Late st Contact Info) Description 07/06/2022 Orders Only Division of Nephrology and Hypertension, [facility], in [place], [place] [address] [place] [phone] Drew Mo, HALLE, C.N.P., M.S.N. [address] [place] [address] Social History Tobacco Use Types Packs/Day Years Used Date Smoking Tobacco: Never Assessed Nutrition Answer Date Recorded Nutrition: EVOO Fat [...]
--- OUTSIDE RECORDS SUMMARY | 2023-05-08 16:27 | XMS_ITS | Encounter Summary ---
Author Name Unknown Organization [facility] Address [address] [place] [address] Care Team Providers Care Oceanology Teacher Name Role Phone None Reported, Pcp Primary Care Provider Unavail able Reason for Visit * Outpatient (Routine) - Authorized Specialty Diagnoses / Procedures Referred By Mel t Referred To Contact Diagnoses Pain Chest Procedures NM Cardiac Perfusion Rest and Stress SPECT Drew Mo APRN C.N.P., M.S.N. [address] [place] [phone] Formerly [facility] Referral ID Status Reason Start Date Expiration Date V isits Requested Visits Authorized [id number] Authorized 07/11/2022 07/11/2023 6 6 Encounter Details Date Type Department Care Team (Latest Contact Info) Description 07/29/2022 11:59 PM CDT Hospital Encounter Department of Radiology in [place], [place] [address] [place] [address] Drew Mo APRN, C.N.P., M.S.N. [address] [place] [phone] Canceled (Patient: Hospitalized / ill) Discharge Disposition: Home or Self Care Social [...] a day. 180 tablet 3 05/07/2022 12/17/2022 labetaloL (NORMODYNE) 300 mg tablet Take 1 tablet (300 mg total) by mouth 2 (two) times a day. 180 tablet 3 07/18/2022 08/13/2022 minoxidiL (LONITEN) 2.5 mg tablet Take 1 tablet (2.5 mg total) by mouth daily. 90 tablet 3 03/28/2022 08/13/2022 traMADoL (ULTRAM) 50 mg tablet Take 25 mg by mouth every 8 (eight) hours as needed for pain. 0 11/14/2022 documented as of this encounter Plan of Treatment Not on file documented as of this encounter Visit Diagnoses Not on filedocumented in this encounter Care Teams Oceanology Teacher Relationship Specialty Start Date End Date None Reported, Pcp PCP - General Family Medicine 07/28/22 02/03/23 documented as of this encounter
--- OUTSIDE RECORDS SUMMARY | 2023-05-08 16:27 | XMS_ITS | Encounter Summary ---
Author Name Unknown Organization [facility] Address [address] [place] [address] Care Team Providers Care Fire Marshal Name Role Phone Unavailable Primary Care Provider Unavailabl e Encounter Details Date Type Department Care Team (Late st Contact Info) Description 07/11/2022 Orders Only Department of Cardiovascular Diseases in [place], [place] [address] [phone] Dagoberto Rashid, HALLE, C.N.P. [address], [place] [phone] Social History Tobacco Use Types Packs/Day Years [...]
--- OUTSIDE RECORDS SUMMARY | 2023-05-08 16:27 | XMS_ITS | Encounter Summary ---
Author Name Unknown Organization [facility] Address [address] [place] [address] Care Team Providers Care Game Programmer Name Role Phone Unavailable Primary Care Provider Unavailabl e Encounter Details Date Type Department Care Team (Late st Contact Info) Description 07/18/2022 Orders Only Division of Nephrology and Hypertension in [place], [place] [address] [place] [address] Concetta Mejía M.D., Ph.D. [address] [place] [address] Social History Tobacco Use Types Packs/Day Years [...]
--- OUTSIDE RECORDS SUMMARY | 2023-05-08 16:27 | XMS_ITS | Encounter Summary ---
Author Name Unknown Organization [facility] Address [address] [place] [address] Care Team Providers Care Fire Apparatus Sprinkler Inspector Name Role Phone Unavailable Primary Care Provider Unavailabl e Encounter Details Date Type Department Care Team (Late st Contact Info) Description 07/18/2022 Orders Only Division of Nephrology and Hypertension in [place], [place] [address] [place] [address] Concetta Mejía M.D., Ph.D. [address] [place] [address] Social History Tobacco Use Types Packs/Day Years [...]
--- OUTSIDE RECORDS SUMMARY | 2023-05-08 16:27 | XMS_ITS | Encounter Summary ---
Author Name Unknown Organization [facility] Address [address] [place] [address] Care Team Providers Care Spd Tech Name Role Phone None Reported, Pcp Primary Care Provider Unavail able Encounter Details Date Type Department Care Team (Late st Contact Info) Description 08/13/2022 Orders Only Division of Nephrology and Hypertension in [place], [place] [address] [place] [address] Concetta Mejía M.D., Ph.D. [address] [place] [address] Social History Tobacco Use Types Packs/Day Years [...] on filedocumented in this encounter Care Teams Spd Tech Relationship Specialty Start Date End Date None Reported, Pcp PCP - General Family Medicine 07/28/22 02/03/23 documented as of this encounter
--- OUTSIDE RECORDS SUMMARY | 2023-05-08 16:27 | XMS_ITS ---
Author Name Unknown Organization [facility] Address [address] [place] [address] Care Team Providers Care Pocket Cutter Name Role Phone Elsewhere, Pcp Primary Care Provider Unavailabl e Transplant Episode Kidney Candidate [facility] ([place], [place]) - [facility] Referred on 06/28/2022 Marked as Ineligible on 09/06/2022 Reason: Unable to Contact Patient Kidney CoordinatorRoseline Humphrey R.N. Fax: N/A Email: [email or web address] Scores Score Value Updated Exceptions/Reas ons CPRA Not available EPTS (Calc) 11 05/08/2023 Care Team Name Role Phone Fax Email Roseline Humphrey R.N. Kidney Coordinator [phone] N/A [email or web address] Pre-Transplant Referred: 06/28/2022 Dialysis History Dialysis History Start End Type Comments Center 2017 Hemo [facility] Information Center Phone Fax Address [facility] [phone] [place] [address]
--- OUTSIDE RECORDS SUMMARY | 2023-05-08 16:27 | XMS_ITS | Clinical Summary ---
Author Name Unknown Organization [facility] Address [place], [place] [address] Care Team Providers Care Stock Preparer Name Role Phone Pcp, No Primary Care Provider Unavailabl e Allergies Active Allergy Reactions Criticality Noted Date Comments Diphenhydramine Anxiety 03/20/2022 Hydrocodone Seizures High 03/20/2022 Ibuprofen Renal Failure 03/20/2022 Morphine Seizures High 03/20/2022 Nsaids (Non-Steroidal Anti-I nflammatory Drug) Renal Failure 03/20/2022 Medications Medication Sig Dispensed Refills Start Date End Date Status cephalexin (KEFLEX) 500 mg capsule TAKE 1 CAPSULE BY MOUTH TWICE DAILY FOR EAR INFECTION 0 03/13/2022 Active amoxicillin-clavulanat e 875-125 mg tablet (AUGMENTIN)Indications :Other recurrent acute nonsuppurative otitis media of left ear Take 1 Tablet by mouth two times daily with meals. 10 Tablet 0 03/20/2022 Active Social History Tobacco Use Types Packs/Day Years Used Date Smoking Tobacco: Never Assessed Sex and Gender Information Value Date Recorded Sex Assigned at Not on file Gender Identity Not on file Sexual Orientation Not on file Last Filed Vital Signs Vital Sign Reading Time Taken Comments Blood Pressure 175/96 03/20/2022 7:24 PM HAIR AND MAKEUP DESIGNER Pulse 98 03/20/2022 7:24 PM HAIR AND MAKEUP DESIGNER Temperature 37.2 ??C (99 ??F) 03/20/2022 7:24 PM HAIR AND MAKEUP DESIGNER Respiratory Rate 16 03/20/2022 7:24 PM HAIR AND MAKEUP DESIGNER Oxygen Saturation 99% 03/20/2022 7:24 PM HAIR AND MAKEUP DESIGNER Inhaled Oxygen Concentration - - Weight 70.5 kg (155 lb 8 oz) 03/20/2022 7:24 PM HAIR AND MAKEUP DESIGNER Height 165.1 cm (5' 5) 03/20/2022 7:24 PM HAIR AND MAKEUP DESIGNER Body Mass Index 25.88 03/20/2022 7:24 PM HAIR AND MAKEUP DESIGNER Plan of Treatment Not on file Care Teams Stock Preparer Relationship Specialty Start Date End Date Pcp, No . PCP - General 03/20/22
--- OUTSIDE RECORDS SUMMARY | 2023-05-08 16:27 | XMS_ITS | Encounter Summary ---
Author Name Unknown Organization [facility] Address [address] [place] [address] Care Team Providers Care Bulk System Operator Name Role Phone Unavailable Primary Care Provider Unavailabl e Encounter Details Date Type Department Care Team (Late st Contact Info) Description 07/10/2022 Orders Only Division of Nephrology and Hypertension, [facility], in [place], [place] [address] [place] [address] Drew Mo, HALLE, C.N.P., M.S.N. [address] [place] [address] Other Chest Pain (Primary Dx) Social History Tobacco Use Types Packs/Day Years [...] as of this encounter Visit Diagnoses Diagnosis Other Chest Pain- Primary documented in this encounter
--- OUTSIDE RECORDS SUMMARY | 2023-05-08 16:27 | XMS_ITS ---
Author Name Unknown Organization [facility] Address [address] [place] [address] Care Team Providers Care Elevator Operator Name Role Phone Elsewhere, Pcp Primary Care Provider Unavailabl e Transplant Episode Kidney Candidate [facility] ([place], [place]) - [facility] Referred on 10/10/2022 Marked as Active on 10/10/2022 Kidney CoordinatorRoseline Humphrey R.N. Fax: N/A Email: [email or web address] Scores Score Value Updated Exceptions/Reas ons CPRA Not available EPTS (Calc) 11 05/08/2023 Care Team Name Role Phone Fax Email Roseline Humphrey R.N. Kidney Coordinator [phone] N/A [email or web address] Concetta Floyd Referring Provider [phone] N/A [email or web address] Pre-Transplant Referred: 10/10/2022 Dialysis History Dialysis History Start End Type Comments Center 2017 Hemo [facility] Dialysis Center Information Center Phone Fax Address [facility] [phone] [place] [address]
--- OUTSIDE RECORDS SUMMARY | 2023-05-08 16:27 | XMS_ITS | Encounter Summary ---
Author Name Unknown Organization [facility] Address [address] [place] [address] Care Team Providers Care Interventional Physiatrist Name Role Phone None Reported, Pcp Primary Care Provider Unavail able Encounter Details Date Type Department Care Team (Late st Contact Info) Description 07/11/2022 Clinical Communication Department of Cardiovascular Diseases in [place], [place] [address] [place] [phone] Sergei Ibrahim M.D. [address] [place] [address] Social History Tobacco Use Types Packs/Day Years [...] on filedocumented in this encounter Care Teams Interventional Physiatrist Relationship Specialty Start Date End Date None Reported, Pcp PCP - General Family Medicine 07/28/22 02/03/23 documented as of this encounter
--- OUTSIDE RECORDS SUMMARY | 2023-05-08 16:27 | XMS_ITS | Encounter Summary ---
Author Name Unknown Organization [facility] Address [address] [place] [address] Care Team Providers Care Pharmacy Clerk Name Role Phone Unavailable Primary Care Provider Unavailabl e Encounter Details Date Type Department Care Team (Late st Contact Info) Description 06/27/2022 Orders Only Division of Nephrology and Hypertension, [facility], in [place], [place] [address] [place] [address] Drew Mo, HALLE, C.N.P., M.S.N. [address] [place] [address] Social History Tobacco Use Types Packs/Day Years [...]
--- OUTSIDE RECORDS SUMMARY | 2023-05-08 16:27 | XMS_ITS | Encounter Summary ---
Author Name Unknown Organization [facility] Address [address] [place] [address] Care Team Providers Care Overnight Houseperson Name Role Phone Unavailable Primary Care Provider Unavailabl e Encounter Details Date Type Department Care Team (Latest Contact Info) Description 06/28/2022 Clinical Communication Maco Espinoza [facility] in [place], [place] [address] [place] [address] Fanta Nicolas APRN, C.N.P., D.N.P. [address] [place] [address] Social History Tobacco Use Types Packs/Day Years [...]
--- OUTSIDE RECORDS SUMMARY | 2023-05-08 16:27 | XMS_ITS | Encounter Summary ---
Author Name Unknown Organization [facility] Address [address] [place] [address] Care Team Providers Care Stripping Shovel Operator Name Role Phone None Reported, Pcp Primary Care Provider Unavail able Encounter Details Date Type Department Care Team (Late st Contact Info) Description 09/03/2022 Orders Only Division of Nephrology and Hypertension in [place], [place] [address] [place] [address] Concetta Mejía M.D., Ph.D. [address] [place] [address] Social History Tobacco Use Types Packs/Day Years [...] on filedocumented in this encounter Care Teams Stripping Shovel Operator Relationship Specialty Start Date End Date None Reported, Pcp PCP - General Family Medicine 07/28/22 02/03/23 documented as of this encounter
--- OUTSIDE RECORDS SUMMARY | 2023-05-08 16:27 | XMS_ITS | Encounter Summary ---
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 Differential, Blood (07/28/2022 7:43 PM CDT) Hemoglobin 8.6(L) 13.2 - 16.6 g/dL 07/28/2022 7:51 PM CDT [facility] Hematocrit 27.3(L) 38.3 - 48.6 % 07/28/2022 7:51 PM CDT [facility] Erythrocytes 2.97(L) 4.35 - 5.65 x10(12)/L 07/28/2022 7:51 PM CDT [facility] MCV 91.9 78.2 - 97.9 fL 07/28/2022 7:51 PM CDT [facility] RBC Distrib Width 18.4(H) 11.8 - 14.5 % 07/28/2022 7:51 PM CDT [facility] Platelet Count 406(H) 135 - 317 x10(9)/L 07/28/2022 7:51 PM CDT [facility] Leukocytes 13.1(H) 3.4 - 9.6 x10(9)/L 07/28/2022 7:51 PM CDT [facility] Neutrophils 9.90(H) 1.56 - 6.45 x10(9)/L 07/28/2022 7:51 PM CDT [facility] Lymphocytes 1.13 0.95 - 3.07 x10(9)/L 07/28/2022 7:51 PM CDT [facility] Monocytes 1.17(H) 0.26 - 0.81 x10(9)/L 07/28/2022 7:51 PM CDT [facility] Eosinophils 0.80(H) 0.03 - 0.48 x10(9)/L 07/28/2022 7:51 PM CDT [facility] Basophils 0.07 0.01 - 0.08 x10(9)/L 07/28/2022 7:51 PM CDT [facility] Blood (Blood, Venous) 07/28/2022 7:43 PM CDT 07/28/2022 7:48 PM CDT Diane Fregoso M.D., M.B.A. [place] [address], [place] [address] documented in this encounter Visit Diagnoses Diagnosis Excess Fluid Volume- Primary Excess Fluid Volume Elevated Blood Pressure Failure Renal End Stage (HCC) Failure Renal End Stage (HCC) documented in this encounter Admitting Diagnoses Diagnosis Excess Fluid Volume Failure Renal End Stage (HCC) documented in this encounter Administered Medications Inactive Administered Medications - up to 3 most recent administrations Medication Order MAR Action Action Date Dose Rate Site acetaminophen tablet 1,000 mg (TYLENOL) 1,000 mg, oral, Every 6 hours PRN, mild pain or score 1-3 of 10, headaches, fever, Starting on 07/28/22 at 2323, Not to exceed 4 grams of acetaminophen in 24 hours all sources Given 07/29/2022 4:12 PM CDT 1,000 mg acetaminophen tablet 1,000 mg (TYLENOL) 1,000 mg, oral, Every 6 hours, First dose (after last modification) on Fri07/29/22 at 2215, Not to exceed 4 grams of acetaminophen in 24 hours all sources nyiqcaczvtixx-[id number]-[id number] osman in Lipoderm 2%-5%-5% cream 1 g 1 g, topical, 2 times daily, First dose on Fri07/29/22 at 0515 amLODIPine tablet 10 mg (NORVASC) 10 mg, oral, Daily, First dose on Fri07/29/22 at 0900 Given 07/29/2022 8:14 AM CDT 10 mg epoetin jasmin-epbx injection 10,000 Units (RETACRIT) 10,000 Units, intravenous, Once, On Fri07/30/22 at 1100, For 1 dose, Dialysis, Via dialysis bloodline during dialysis., Indications: 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 Given 07/30/2022 12:16 PM CDT 10,000 Units heparin (porcine) 1,000 unit/mL injection - ADS Override Pull Starting on Fri07/29/22 at 0904, For 1 dose, Created by cabinet override heparin (porcine) 1,000 unit/mL injection 2,000 Units 2,000 Units, intravenous, Once in dialysis, On Fri07/29/22 at 0945, For 1 dose, Dialysis, Heparin (during dialysis) Loading dose Given 07/29/2022 9:51 AM CDT 2,000 Units heparin (porcine) 1,000 unit/mL injection 2,000 Units 2,000 Units, intravenous, Once in dialysis, On Fri07/30/22 at 1100, For 1 dose, Dialysis, Heparin (during dialysis) Loading dose Given 07/30/2022 11:02 AM CDT 2,000 Units heparin (porcine) 1,000 unit/mL injection 1,000 Units/hr (1 mL/hr), intravenous, Continuous, Starting on Fri07/29/22 at 0945, Dialysis, Heparin (during dialysis) maintenance dose New Bag 07/29/2022 9:52 AM CDT 1,000 Units/hr 1 mL/hr heparin (porcine) 1,000 unit/mL injection 1,000 Units/hr (1 mL/hr), intravenous, Continuous, Starting on Fri07/30/22 at 1100, Dialysis, Heparin (during dialysis) maintenance dose New Bag 07/30/2022 11:02 AM CDT 1,000 Units/hr 1 mL/hr hydrALAZINE tablet 50 mg (APRESOLINE) 50 mg, oral, 2 times daily, First dose on Fri07/28/22 at 2324 Given 07/29/2022 4:12 PM CDT 50 mg Given 07/29/2022 8:14 AM CDT 50 mg Given 07/29/2022 12:17 AM CDT 50 mg HYDROmorphone (PF) injection 1 mg (DILAUDID) 1 mg, intravenous, Once, On Fri07/28/22 at 2016, For 1 dose Given 07/28/2022 8:32 PM CDT 1 mg HYDROmorphone tablet 1 mg (DILAUDID) 1 mg, oral, Every 4 hours PRN, moderate pain or score 4-6 of 10, Starting on Fri07/29/22 at 1037 Given 07/30/2022 2 :41 PM CDT 1 mg Given 07/30/2022 8:48 AM CDT 1 mg Given 07/29/2022 10:03 PM CDT 1 mg labetaloL tablet 300 mg (NORMODYNE) 300 mg, oral, 2 times daily, First dose on Fri07/28/22 at 2324 Given 07/29/2022 8:24 PM CDT 300 mg Given 07/29/2022 8:14 AM CDT 300 mg Given 07/29/2022 12:16 AM CDT 300 mg lidocaine (PF) 10 mg/mL (1 %) injection 0.2 mL (XYLOCAINE) 0.2 mL, intradermal, As needed, needle insertion, Starting on Fri07/30/22 at 1046, Dialysis, As needed with needle insertion for each cannulation. Dialysis order only. lidocaine 5 % 1 patch (LIDODERM) 1 patch, transdermal, Administer over 12 Hours, Daily, First dose on Fri07/29/22 at 0530, Remove after 12 hours. minoxidiL tablet 2.5 mg (LONITEN) 2.5 mg, oral, Daily, First dose on Fri07/29/22 at 0900 Given 07/29/2022 8:15 AM CDT 2.5 mg multivitamin renal failure 100-1 mg 1 tablet (DIALYVITE) 1 tablet, oral, Daily with dinner, First dose on Fri07/29/22 at 1700, give after dialysis on dialysis days Given 07/29/2022 4:12 PM CDT 1 tablet NaCl 0.9 % bolus 100 mL 100 mL, intravenous, at 100 mL/hr, Administer over 1 Hours, As needed, low blood pressure, see comments, Starting on Fri07/30/22 at 1046, For 5 doses, Dialysis, Administer as fast as possible. May repeat x 4 for a total volume of 500 mL for symptomatic hypotension during dialysis. Notify Service if symptomatic hypotension persists after blood pressure support interventions were implemented. ondansetron ODT disintegrating tablet 4 mg (ZOFRAN-ODT) 4 mg, oral, Every 6 hours PRN, nausea, vomiting, Starting on Fri07/29/22 at 1949, When splitting ODT at bedside, handle with gloves and a pill splitter to prevent moisture contact. Given 07/29/2022 8:24 PM CDT 4 mg sodium chloride 0.9 % flush 1-100 mL 1-100 mL, intravenous, As needed, line care, Starting on Fri07/30/22 at 1046, Dialysis, For anticoagulation line to maintain patency of dialysis circuit. sodium chloride 0.9 % flush 1-250 mL 1-250 mL, intravenous, As needed, line care, For priming and rinse back post dialysis, Starting on Fri07/29/22 at 0938, Dialysis, Dialysis order only. Given 07/29/2022 9:52 AM CDT 250 mL sodium chloride 0.9 % flush 1-250 mL 1-250 mL, intravenous, As needed, line care, For priming and rinse back post dialysis, Starting on Fri07/30/22 at 1046, Dialysis, Dialysis order only. Given 07/30/2022 11:03 AM CDT 250 mL sodium chloride 0.9 % injection 10-60 mL 10-60 mL, intravenous, As needed, line care, To maintain line patency, Starting on Fri07/29/22 at 0938, Dialysis Given 07/29/2022 2:22 PM CDT 35 mL sodium chloride 0.9 % injection 10-60 mL 10-60 mL, intravenous, As needed, line care, To maintain line patency, Starting on Fri07/30/22 at 1046, Dialysis Given 07/30/2022 11:03 AM CDT 40 mL documented in this encounter Active and Recently Administered Medications Times are shown in CDT. Scheduled Medication Order 07/28/2022 07/29/2022 07/30/2022 acetaminophen tablet 1,000 mg (TYLENOL) 1,000 mg, oral, Every 6 hours, First dose (after last modification) on Fri07/29/22 at 2215, Not to exceed 4 grams of acetaminophen in 24 hours all sources 2136 (Not Given - Provider: Yulissa Singh RPenny - Reason: Patient/family refused) 0317 (Not Given - Provider: Yulissa Singh R.N. - Reason: Patient/family refused)1229 (Not Given - Provider: Elba Carey R.N. - Reason: Patient/family refused) avatplbukdfzx-vjofkobh-k idocaine in Lipoderm 2%-5%-5% cream 1 g 1 g, topical, 2 times daily, First dose on Fri07/29/22 at 0515 0515 (Due)2024 (Not Given - Provider: Yulissa Singh R.N. - Reason: Patient/family refused) 0856 (Not Given - Provider: Elba Carey R.N. - Reason: Patient/family refused) amLODIPine tablet 10 mg (NORVASC) 10 mg, oral, Daily, First dose on Fri07/29/22 at 0900 0814 (Given - Provider: Elba Carey R.NJuan C) 1440 (Not Given - Provider: Elba Carey R.N. 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 1216 (Given - Provider: Miranda Avila R.N.) heparin (porcine) 1,000 unit/mL injection 2,000 Units (COMPLETED) 2,000 Units, intravenous, Once in dialysis, On Fri07/29/22 at 0945, For 1 dose, Dialysis, Heparin (during dialysis) Loading dose 0951 (Given - Provider: Verito iNcolas RJuan CN.) heparin (porcine) 1,000 unit/mL injection 2,000 Units (COMPLETED) 2,000 Units, intravenous, Once in dialysis, On Fri07/30/22 at 1100, For 1 dose, Dialysis, Heparin (during dialysis) Loading dose 1102 (Given - Provider: Miranda Avila R.N.) hydrALAZINE tablet 50 mg (APRESOLINE) 50 mg, oral, 2 times daily, First dose on Fri07/28/22 at 2324 0017 (Given - Provider: Deysi Patel R.N.)0814 (Given - Provider: Elba Carey RJuan CN.)1612 (Given - Provider: Elba Carey R.N.) 1440 (Not Given - Provider: Elba Carey R.N. - Reason: Patient/family refused) HYDROmorphone (PF) injection 1 mg (DILAUDID) (COMPLETED) 1 mg, intravenous, Once, On Fri07/28/22 at 2016, For 1 dose 2031 (Given - Provider: Senthil Coronel R.N.) labetaloL tablet 300 mg (NORMODYNE) 300 mg, oral, 2 times daily, First dose on Fri07/28/22 at 2324 0016 (Given - Provider: Deysi Patel RJuan CN.)0814 (Given - Provider: Elba Carey R.N.)2023 (Given - Provider: Yulissa Singh RJuan CNJuan C) 1440 (Not Given - Provider: Elba Carey R.N. - Reason: Patient/family refused) lidocaine 5 % 1 patch (LIDODERM) 1 patch, transdermal, Administer over 12 Hours, Daily, First dose on Fri07/29/22 at 0530, Remove after 12 hours. 0530 (Due) 0900 (Due) minoxidiL tablet 2.5 mg (LONITEN) 2.5 mg, oral, Daily, First dose on Fri07/29/22 at 0900 0815 (Given - Provider: Elba Carey RJuan CNJuan C) 1440 (Not Given - Provider: Elba Carey R.N. - Reason: Patient/family refused) multivitamin renal failure 100-1 mg 1 tablet (DIALYVITE) 1 tablet, oral, Daily with dinner, First dose on Fri07/29/22 at 1700, give after dialysis on dialysis days 1612 (Given - Provider: Elba Carey R.N.) Continuous Medication Order 07/28/2022 07/29/2022 07/30/2022 heparin (porcine) 1,000 unit/mL injection (CANCELED) 1,000 Units/hr (1 mL/hr), intravenous, Continuous, Starting on Fri07/29/22 at 0945, Dialysis, Heparin (during dialysis) maintenance dose 0952 (New Bag - Provider: Verito Nicolas R.N.)1355 (Stopped - Provider: Verito Nicolas R.N. - Comment: total of 7200 units given during dialysis (4 hour treatment)) heparin (porcine) 1,000 unit/mL injection 1,000 Units/hr (1 mL/hr), intravenous, Continuous, Starting on Fri07/30/22 at 1100, Dialysis, Heparin (during dialysis) maintenance dose 1102 (New Bag - Provider: Miranda Avila R.N.)1300 (Stopped - Provider: Miranda Avila R.N.) PRN Medication Order 07/28/2022 07/29/2022 07/30/2022 acetaminophen tablet 1,000 mg (TYLENOL) (CANCELED) 1,000 mg, oral, Every 6 hours PRN, mild pain or score 1-3 of 10, headaches, fever, Starting on Fri07/28/22 at 2323, Not to exceed 4 grams of acetaminophen in 24 hours all sources 1612 (Given - Provider: Elba Carey R.N. - Comment: head and back) HYDROmorphone tablet 1 mg (DILAUDID) 1 mg, oral, Every 4 hours PRN, moderate pain or score 4-6 of 10, Starting on Fri07/29/22 at 1037 1102 (Given - Provider: Elba Carey R.N. - Comment: back and head)1612 (Given - Provider: Elba Carey R.N.)2203 (Given - Provider: Yulissa Singh R.N.) 0848 (Given - Provider: Elba Carey R.N. - Comment: back)1441 (Given - Provider: Elba Carey R.N. - Comment: head) lidocaine (PF) 10 mg/mL (1 %) injection 0.2 mL (XYLOCAINE) 0.2 mL, intradermal, As needed, needle insertion, Starting on Fri07/30/22 at 1046, Dialysis, As needed with needle insertion for each cannulation. Dialysis order only. NaCl 0.9 % bolus 100 mL 100 mL, intravenous, at 100 mL/hr, Administer over 1 Hours, As needed, low blood pressure, see comments, Starting on Fri07/30/22 at 1046, For 5 doses, Dialysis, Administer as fast as possible. May repeat x 4 for a total volume of 500 mL for symptomatic hypotension during dialysis. Notify Service if symptomatic hypotension persists after blood pressure support interventions were implemented. ondansetron ODT disintegrating tablet 4 mg (ZOFRAN-ODT) 4 mg, oral, Every 6 hours PRN, nausea, vomiting, Starting on Fri07/29/22 at 1949, When splitting ODT at bedside, handle with gloves and a pill splitter to prevent moisture contact. 2023 (Given - Provider: Yulissa Singh R.N.) sodium chloride 0.9 % flush 1-100 mL 1-100 mL, intravenous, As needed, line care, Starting on Fri07/30/22 at 1046, Dialysis, For anticoagulation line to maintain patency of dialysis circuit. sodium chloride 0.9 % flush 1-250 mL (CANCELED) 1-250 mL, intravenous, As needed, line care, For priming and rinse back post dialysis, Starting on Fri07/29/22 at 0938, Dialysis, Dialysis order only. 0952 (Given - Provider: Verito Nicolas R.N.) sodium chloride 0.9 % flush 1-250 mL 1-250 mL, intravenous, As needed, line care, For priming and rinse back post dialysis, Starting on Fri07/30/22 at 1046, Dialysis, Dialysis order only. 1103 (Given - Provid er: Miranda Avila R.N.) sodium chloride 0.9 % injection 10-60 mL (CANCELED) 10-60 mL, intravenous, As needed, line care, To maintain line patency, Starting on Fri07/29/22 at 0938, Dialysis 1422 (Given - Provider: Josie Eckert - Comment: flushes) sodium chloride 0.9 % injection 10-60 mL 10-60 mL, intravenous, As needed, line care, To maintain line patency, Starting on Fri07/30/22 at 1046, Dialysis 1103 (Given - Provid er: Miranda Avila R.N.) documented in this encounter Care Teams Canteen Operator Relationship Specialty Start Date End Date None Reported, Pcp PCP - General Family Medicine 07/28/22 02/03/23 documented as of this encounter
[2023-05-08 16:30] LABS: Appearance Urine Clear (Clear); Bilirubin Urine Negative (Negative); Blood Urine 1+ (Negative); Color Urine Yellow (Yellow); Glucose Urine Negative (Negative); Ketones Urine Negative (Negative); Leukocyte Esterase Urine Trace (Negative); Nitrite Urine Negative (Negative); Protein Urine 3+ (Negative); Specific Gravity Urine 1.015 (1.000-1.030); Urobilinogen Urine 0.2 (0.2-1.0); pH Urine 8.5 (5.0-8.5)
[2023-05-08 16:45] LABS: RBC Urine 0-2 (0-2); WBC Urine 0-2 (0-5)
[2023-05-08] MEDS: cefTRIAXone 1 GM in 0.9 % SODIUM CHLORIDE Mini-bag 100 ML IVPB (17:17)
[2023-05-08] MEDS: PROCHLORPERAZINE 5 MG/ML VIAL IVP (17:50)
== END 2023-05-08 18:22 | disposition home or self-care (01) ==
PROVIDERS: Student in an Organized Health Care Education/Training Program; Emergency Provider Family Medicine; PCP Internal Medicine
DX: R10.12 Left upper quadrant pain (principal)
CPT/HCPCS: 36415; 74176; 80053; 81001; 83690; 85025; 87086; 96365; 96375; 99283; 99284; J0696; J0780; J1170; J2405

== ENCOUNTER 2023-05-18 03:50 | Outpatient (CLI) | payer MEDICARE, MEDICAID, SELFPAY ==
--- OUTSIDE RECORDS SUMMARY | 2023-05-20 09:41 | XMS_ITS | Clinical Summary ---
Author Name Unknown Organization [facility] Address [address] [place] [address] Care Team Providers Care Blood Donor Unit Assistant Name Role Phone No Ref-Primary, Physician [...] Advance Directives For more information, please contact: [phone] Latest Code Status on File Code Status [...] with patient/ legal decision maker Care Teams Blood Donor Unit Assistant Relationship Specialty Start Date End Date No Ref-Primary, Physician PCP - General 04/14/22
--- OUTSIDE RECORDS SUMMARY | 2023-05-20 09:41 | XMS_ITS | Encounter Summary ---
Author Name Unknown Organization [facility] Address [facility] [place] [address] Care Team Providers Care Facility Attendant Name Role Phone No Ref-Primary, Physician Primary Care Provider Reason for Referral * Consultation (Urgent: 3-5 Days) - Pending Review Specialty Diagnoses / Procedures Referred By Contac t Referred To Contact Diagnoses Tooth infection Marcus Marquez MD [address] [id number] Referral ID Status Reason Start Date Expiration Date V isits Requested Visits Authorized [id number] Pending Review 07/04/2022 07/04/2023 1 1 Question [...] questions. Please call to schedule your appointment CLE DESIGNER Reason for Visit * Reason Comments Chest Pain * Auth/Cert (Routine) Specialty Diagnoses / Procedures Referred By Contac t Referred To Contact Dialysis Diagnoses Elevated troponin Hypertensive urgency Chest pain, unspecified type Chest pain, unspecified type Elevated troponin Hypertensive urgency Sh Dialysis [address] [address] Referral ID Status Reason Start Date Expiration Date Visits Re quested Visits Authorized [id number] 1 1 Encounter Details Date Type Department Care Team (Late st Contact Info) Description 07/03/2022 5:31 AM BICYCLE DESIGNER - 07/04/2022 6:30 PM BICYCLE DESIGNER Emergency [place] [address] [facility] [address] [id number] Garth Patel, DO [facility] [address] [place] [id number] Julia Blanchard DO [address] [id number] Marcus Marquez MD [address] [id number] Tooth infection (Primary Dx); Chest pain, unspecified [...] Coronavirus/COVID-19? No / Unsure 07/03/2022 5:40 AM BICYCLE DESIGNER documented as of this encounter Last Filed Vital Signs Vital Sign Reading Time Taken Comments Blood Pressure 123/68 07/04/2022 3:23 PM BICYCLE DESIGNER Pulse 99 07/04/2022 3:23 PM BICYCLE DESIGNER Temperature 37.1 ??C (98.7 ??F) 07/04/2022 3:23 PM CS T Respiratory Rate 18 07/04/2022 3:23 PM BICYCLE DESIGNER Oxygen Saturation 95% 07/04/2022 3:23 PM BICYCLE DESIGNER Inhaled Oxygen Concentration - - Weight 70.3 kg (155 lb) 07/03/2022 5:47 AM BICYCLE DESIGNER Height 165.1 cm (5' 5) 07/03/2022 5:47 AM BICYCLE DESIGNER Body Mass Index 25.79 07/03/2022 5:47 AM BICYCLE DESIGNER documented in this encounter Discharge Summaries * Marcus Marquez MD - 07/04/2022 10:57 AM CST [facility] Discharge Summary Salbador Justin Date of : [...] Initial presentation as above. Noted last HD PAPER FINISHER was 06/27. Trop 100 on admit. Nephrology consultedand pt dialyzed on admit. * On 07/04, symptoms improved with HD. Recent Labs Lab 07/03/22 0749 07/03/22 0551 CTROPT 101* 100* - Continue to treat other issues as noted. ?? ESRD??on HD (//Fri) with missed HD x2. Anion gap metabolic acidosis due to above. Symptomatic hypotension with hemodialysis 07/04. * Usually dialyzes TTS; followed by [facility]. * Initial presentation as above. On admit, noted that last run was 06/27; missed dialysis due to social issues 06/29 and 07/02. Nephrology consulted and underwent HD on admit as above. * On 07/04, pt had a hypotensive episode during dialysis, symptoms improved when BP's increased afterfluid bolus. - Continue outpatient HD TTS. ?? Hypertensive urgency/emergency related to missed HD. [PAPER FINISHER: amlodipine 10 mg daily; hydralazine 50 mg [...] in 9-10 range over the past year PAPER FINISHER. * Initial presentation as above. Hgb 8 [...] * Noted during his 05/27/2022 admit at [facility]. Underwent imaging and found to have left [...] Narrative EXAM: XR CHEST 2 VIEWS LOCATION: [facility] DATE/TIME: 07/03/2022 6:19 AM INDICATION: Chest [...] paranasal sinuses are clear. QUIQUE WATTERS MD CLE DESIGNER documented in this encounter Medications at Time [...] 1 Assessment/Plan: 1. ESRD -dialysis dependent -TTS [place] [facility] -followed by [facility] -last ran 06/27/22 ?? Outpatient dialysis orders: ?? 4 hours Left AVF TW 69 kg Off last 68.9 kg 3K ?? 2. Anemia -Mircera given 06/22/22 3. Metabolic Bone Disease -calcitriol with dialysis 1.25 mg -CaAc 4. HTN -amlodipine/benazepril/carvedilol/hydralazine/minoxidil/spironolactone -presenting BP elevated at dialysis 5. CP Continue TTS schedule Next 07/05/22 Interval History: Dialysis run parameters reviewed with border measurer at patient bedside. Seen on run Complicated [...] 21.81* GFRESTIMATED 3* CLAIRE 9.8 G Abdelrahman aRe MD [facility] - Nephrology [phone] CLE DESIGNER * Sergio Kaur RN - 07/04/2022 10:42 [...] to treatment See Adult Hemodialysis flowsheet in [employer] for further details and post assessment. Machine water alarm in place and functioning. Transducer pods intact and checked every 15min. Pt returned via bed. Chlorine/Chloramine water system checked every 4 hours[address] Dialysis at [facility] ?? Patient repositioned every 2 hours during the treatment. Post treatment report given to Cristhian Ybarra RN regarding 0.7L of fluid removed and last BP of 153/83. ?? Please remove patient dressing on AVF and AVG needle sites 24 hours after dialysis. If leaking occurs please apply a Band-Aid. CLE DESIGNER * Marcus Marquez MD - 07/04/2022 7:20 AM CST [facility] Internal Medicine Hospitalist Progress Note 07/04/2022 I evaluated patient on the above date. Marcus Marquez Jr., MD [phone] (p) Text Page Vocera Assessment & Plan [...] Initial presentation as above. Noted last HD PAPER FINISHER was 06/27. Trop 100 on admit. Nephrology consultedand pt dialyzed on admit. * On 07/04, symptoms improved with HD. Recent Labs Lab 07/03/22 0749 07/03/22 0551 CTROPT 101* 100* - Continue to treat other issues as noted. ESRD??on HD (/Fri) with missed HD x2. Anion gap metabolic acidosis due to above. Symptomatic hypotension with hemodialysis 07/04. * Usually dialyzes TTS; followed by [facility]. * Initial presentation as above. On [...] ?? Hypertensive urgency/emergency related to missed HD. [PAPER FINISHER: amlodipine 10 mg daily; hydralazine 50 mg [...] in 9-10 range over the past year PAPER FINISHER. * Initial presentation as above. Hgb 8 [...] * Noted during his 05/27/2022 admit at [facility]. Underwent imaging and found to have left [...] prochlorperazine, senna-docusate OR senna-docusate, sodium chloride (PF) CLE DESIGNER * Tanja Cody RN - 07/03/2022 5:48 [...] to treatment See Adult Hemodialysis flowsheet in [facility] for further details and post assessment. Machine water alarm in place and functioning. Transducer pods intact and checked every 15min. Pt returned via bed. Chlorine/Chloramine water system checked every [address] Dialysis at [facility] Patient repositioned every 2 hours during the treatment. Post treatment report given to Cristhian John RN regarding 2L of fluid removed, last BP of 180/74, and patient pain rating of 0/10. Please remove patient dressing on AVF and AVG needle sites 24 hours after dialysis. If leaking occurs please apply a Band-Aid. CLE DESIGNER * Kirk Rae MD - 07/03/2022 4:15 PM CST Renal Medicine Second visit Seen on dialysis run Dialysis run parameters reviewed with border measurer at patient bedside. UF 2 liter No access issues Next 07/04/22 Inpatient or outpatient Recent Labs Lab 07/03/22 0551 POTASSIUM 5.1 Kirk. Abdelrahman Rae [facility] [phone] CLE DESIGNER * Patricia John RN - 07/03/2022 12:57 PM CST RECEIVING UNIT ED HANDOFF REVIEW ED Nurse Handoff Report was reviewed by: Patricia John RN on July 03, 2022 at 12:58 PM CLE DESIGNER * Monse Kim - 07/03/2022 10:11 AM CST [facility] Progress Note [facility] - ED Referral: Visit for [...] sleep. remains available. Rev Monse Kim Associate Electrical Timing Device Calibrator [facility] Health Phone Line [phone] [place] (Tuesdays & ) [phone] CLE DESIGNER documented in this encounter H&P Notes * Julia Blanchard DO - 07/03/2022 8:27 AM CST [facility] History and Physical - Hospitalist Service Date of Admission: 07/03/2022 Assessment & Plan Salbador Justin is a 36 year old male admitted on 07/03/2022 with chest pressure after missing 2 days of dialysis Anion gap metabolic acidosis ESRD??on HD (//Fri) Usually compliant with dialysis, last run was 06/27/22. Missed dialysis due to social issues 06/29 and 07/02. Weapons Engineer is [facility] in [place]. K 5.1 Anion gap 22, CO2 19 - telemetry - nephrology consulted - plan dialysis today 07/03 - Monitor BMP daily. ?? HTN urgency BP elevated into the 210s/110s in ED. Improved with dose of IV labetalol in ED to 170s/80s - resumed PAPER FINISHER Amlodipine, Hydralazine, Lisinopril, and Minoxidil - PRN [...] sinusitis Noted during his 05/27/22 admit at [facility]. Underwent imaging and found to have left [...] Date: 07/05/2022 Julia Blanchard DO Hospitalist Service [facility] Securely message with [employer] (more info) Text page via [facility] Paging/Directory Chief Complaint Chest pressure History is obtained from the patient, prior record review History of Present Illness Salbador Justin is a 36 year old male who presents with chest pressure after missing 2 dialysis sessions. He last dialyzed in [place] 06/27. He is currently unhoused and living [...] is sharp and radiates to his left uatsdin. He had this discomfort 05/27/22 admit at [facility] and underwent imaging, discharged with abx. After [...] all the paperwork needed. He is from [place] originally so having trouble obtaining his certificate. [...] Narrative EXAM: XR CHEST 2 VIEWS LOCATION: [facility] DATE/TIME: 07/03/2022 6:19 AM INDICATION: Chest pain. COMPARISON: None. Impression IMPRESSION: Negative chest. CLE DESIGNER documented in this encounter Consult Notes * Kirk Rae MD - 07/03/2022 11:26 AM CSTAssociated Order(s): NEPHROLOGY IP CONSULT RENAL CONSULTATION NOTE REFERRING MD: Santo REASON FOR CONSULTATION: ESRD management A/P: 1. ESRD -dialysis dependent -TTS [facility] -followed by [facility] -last ran 06/27/22 Outpatient dialysis orders: 4 hours Left AVF TW 69 kg Off last 68.9 kg 3K 2. Anemia -Mircera given 06/22/22 3. Metabolic Bone Disease -calcitriol with dialysis 1.25 mg -CaA 4. HTN -amlodipine/benazepril/carvedilol/hydralazine/minoxidil/spironolactone -presenting BP elevated at dialysis 5. CP Dialysis today Next run 07/04/22 to resume TTS Reviewed with [place] dialysis staff HPI: Patient presents with chest pain. He is known to have end-stage renal disease. Dialysis dependent. Currently dialyzing TTS at [facility]. Last ran there dated 06/27/22. [...] on housed Living in a motel in [place]. PHYSICAL EXAM: Vitals were reviewed Patient Vitals [...] 0551 HGB 8.0* DIAGNOSTICS: Reviewed Maryellen Rae [facility] [phone] CLE DESIGNER documented in this encounter ED Notes * [...] due to increased pain[facility] Focused Assessment: Chest discomfort Treatments and/or interventions provided: iv, medications imaging labs Patient's response to treatments and/or interventions: tolerated To be done/followed up on inpatient unit: na Does this patient have any cognitive concerns?: none Activity level - Baseline/Home: Independent Activity Level - Current: Independent Patient's Preferred language: Kinyarwanda Sharepoint Developer Needed?: No Isolation: None Infection: Not Applicable [...] performed were . ED NURSE PHONE NUMBER: [phone] CLE DESIGNER * Narcisa Carey RN - 07/03/2022 5:42 AM CST Patient aletha from [place], patient reports he goes to dialysis saturdays, [...] Rhythm ST Cognitive/Neuro/Behavioral WDL Cognitive/Neuro/Behavioral WDL WDL CLE DESIGNER * Garth Patel DO - 07/03/2022 5:31 [...] Pressure Ventricular Rate 111 Atrial Rate 111 AR Interval 144 QRS Duration 90 QT 344 QTc 467 P [place] 63 R AXIS 59 T [place] 76 Interpretation ECG Sinus tachycardia Possible Left atrial enlargement Borderline ECG When compared with ECG of 27-MAY-2022 15:20, Premature ventricular complexes are no longer Present Confirmed by GENERATED REPORT, COMPUTER ([id number]), editorial manager Efraín Puente ([id number]) on 07/03/2022 5:49:00 AM Imaging: XR Chest [...] benefit from emergent dialysis. I consulted the page technician reports they will be able to dialyze [...] to me. Garth Patel DO 07/03/22 0745 CLE DESIGNER documented in this encounter Miscellaneous Notes * [...] of discharge instructions. AVS given to patient. CLE DESIGNER * Utilization Review - Estrella Schroeder MD - 07/04/2022 12:01 PM BICYCLE DESIGNER Admission Status; Secondary Review Determination Under the [...] section 70.4. Sincerely, ESTRELLA SCHROEDER MD System Generator ManTrench Pipe Layer Helper [facility]. CLE DESIGNER * Plan of Care - Dede Magana, IOANA - 07/04/2022 11:32 AM BICYCLE DESIGNER Goal Outcome Evaluation: Summary: chest pain, missed hemodialysis x2 DATE & TIME: 07/04/22 5118-8165 Cognitive Concerns/ Orientation : A&Ox4 BEHAVIOR & [...] Overall Patient Progress: improvingOverall Patient Progress: improving CLE DESIGNER * Plan of Care - Faustino Morrison RN - 07/04/2022 7:00 AM CST Goal Outcome Evaluation: Summary: chest pain, missed hemodialysis x2 DATE & TIME: 07/03/22-07/04/22 5190-3190 Cognitive Concerns/ Orientation : A&Ox4 BEHAVIOR & [...] , no c/o of nausea, no emesis- CLE DESIGNER * Plan of Care - Juhi Pro RN - 07/03/2022 10:21 PM CST Summary: chest pain, missed hemodialysis x2 DATE & TIME: 07/03 9496-6310 Cognitive Concerns/ Orientation : A&Ox4 BEHAVIOR & [...] SKIN: WDL ex pt c/o systemic itchiness. order caller pagearmand- ordered atarax, 25mg given. TESTS/PROCEDURES: dialysis [...] home. Will continue to monitor these symptoms. CLE DESIGNER * Plan of Care - Patricia John [...] be leaving for dialysis at approx 1415 CLE DESIGNER * Pharmacy-Admission Medication History - Heaven Miguel RPH - 07/03/2022 9:12 AM CST Pharmacy Medication History Admission medication history interview status for the 07/03/2022 admission is complete. See [facility] admission navigator for prior to admission [...] Medication Sig Last Dose Taking? Auth Provider Hospice Liaison End Date amLODIPine (NORVASC) 10 MG tablet [...] the time of update(s) Heaven Miguel PharmD CLE DESIGNER documented in this encounter Plan of Treatment [...] Diagnosis Comments PHOSPHORUS Routine 07/04/2022 11:45 AM BICYCLE DESIGNER MAGNESIUM Routine 07/04/2022 11:45 AM BICYCLE DESIGNER BASIC METABOLIC PANEL Routine 07/04/2022 11:45 AM BICYCLE DESIGNER CBC WITH PLATELETS Routine 07/04/2022 10 :[address] FACIAL BONES WITH CONTRAST STAT 07/03/2022 10:30 AM BICYCLE DESIGNER EXTRA PURPLE TOP TUBE STAT 07/03/2022 7:50 AM BICYCLE DESIGNER EXTRA GREEN TOP (LITHIUM HEPARIN) TUBE STAT 07/03/2022 7:50 AM BICYCLE DESIGNER TRANSFERRIN Add-On 07/03/2022 7:50 AM BICYCLE DESIGNER IRON AND IRON BINDING CAPACITY Add-On 07/03/2022 7:50 AM BICYCLE DESIGNER FERRITIN Add-On 07/03/2022 7:50 AM BICYCLE DESIGNER TROPONIN T, HIGH SENSITIVITY STAT 07/03/2022 7:49 AM BICYCLE DESIGNER XR CHEST 2 VIEWS STAT 07/03/2022 6:19 AM BICYCLE DESIGNER EXTRA TUBE STAT 07/03/2022 5:52 AM BICYCLE DESIGNER EXTRA BLUE TOP TUBE STAT 07/03/2022 5 :52 AM BICYCLE DESIGNER EXTRA TUBE STAT 07/03/2022 5:51 AM BICYCLE DESIGNER EXTRA RED TOP TUBE STAT 07/03/2022 5: 51 AM BICYCLE DESIGNER CBC WITH PLATELETS AND DIFFERENTIAL STAT 07/03/2022 5:51 AM BICYCLE DESIGNER TROPONIN T, HIGH SENSITIVITY STAT 07/03/2022 5:51 AM BICYCLE DESIGNER CBC WITH PLATELETS & DIFFERENTIAL STAT 07/03/2022 5:51 AM BICYCLE DESIGNER BASIC METABOLIC PANEL STAT 07/03/2022 5:51 AM BICYCLE DESIGNER EKG 12-LEAD, TRACING ONLY STAT 07/03/2022 5:38 AM BICYCLE DESIGNER documented in this encounter Results * Phosphorus (07/04/2022 11:45 AM BICYCLE DESIGNER) Phosphorus 2.7 2.5 - 4.5 mg/dL 07/04/2022 12:33 PM BICYCLE DESIGNER LABORATORY Blood STRUCTURE OF LEFT HAND / Unknown Venipuncture / Unknown 07/04/2022 11:45 AM BICYCLE DESIGNER 07/04/2022 12:08 PM BICYCLE DESIGNER Julia Blanchard DO LAB - BLOOD ORDERABLES LABORATORY [facility] [address] floor, [address] [place] [address], [facility] [phone] * (ABNORMAL) Magnesium (07/04/2022 11:45 AM BICYCLE DESIGNER) Magnesium 1.6(L) 1.7 - 2.3 mg/dL 07/04/2022 12:33 PM BICYCLE DESIGNER LABORATORY Blood STRUCTURE OF LEFT HAND / Unknown Venipuncture / Unknown 07/04/2022 11:45 AM BICYCLE DESIGNER 07/04/2022 12:08 PM BICYCLE DESIGNER Julia Blanchard DO LAB - BLOOD ORDERABLES LABORATORY [facility] [address], [address] [place] [address], [facility] [phone] * (ABNORMAL) Basic metabolic panel (07/04/2022 11:45 AM BICYCLE DESIGNER) Sodium 138 136 - 145 mmol/L 07/04/2022 12:33 PM BICYCLE DESIGNER LABORATORY Potassium 4.2 3.4 - 5.3 mmol/L 07/04/2022 12:33 PM BICYCLE DESIGNER LABORATORY Chloride 98 98 - 107 mmol/L 07/04/2022 12:33 PM [facility] Carbon Dioxide (CO2) 25 22 - 29 mmol/L 07/04/2022 12:33 PM [facility] Anion Gap 15 7 - 15 mmol/L 07/04/2022 12:33 PM [facility] Urea Nitrogen 20.7(H) 6.0 - 20.0 mg/dL 07/04/2022 12:33 PM [facility] Creatinine 7.51(H) 0.67 - 1.17 mg/dL 07/04/2022 12:33 PM [facility] Calcium 9.0 8.6 - 10.0 mg/dL 07/04/2022 12:33 PM [facility] Glucose 80 70 - 99 mg/dL 07/04/2022 12:33 PM [facility] GFR Estimate 9(L) >60 mL/min/1.7 3m2 07/04/2022 12:33 PM [facility] Comment:eGFR calculated usin 2020 CKD-EPI equation. Blood STRUCTURE OF LEFT HAND / Unknown Venipuncture / Unknown 07/04/2022 11:45 AM BICYCLE DESIGNER 07/04/2022 12:08 PM [facility] Julia Blanchard DO LAB - BLOOD ORDERABLES LABORATORY [facility] [address], [address] [place] [address], [facility] [phone] * (ABNORMAL) CBC with platelets (07/04/2022 10:11 AM [facility]) [facility] WBC Count 8.7 4.0 - 11.0 10e3/uL 07/04/2022 10:15 AM [facility] RBC Count 2.76(L) 4.40 - 5.90 10e6/uL 07/04/2022 10:15 AM [facility] Hemoglobin 7.8(L) 13.3 - 17.7 g/dL 07/04/2022 10:15 AM [facility] Hematocrit 23.6(L) 40.0 - 53.0 % 07/04/2022 10:15 AM [facility] MCV 86 78 - 100 fL 07/04/2022 10:15 AM BICYCLE DESIGNER LABORATORY MCH 28.3 26.5 - 33.0 pg 07/04/2022 10:15 AM BICYCLE DESIGNER LABORATORY MCHC 33.1 31.5 - 36.5 g/dL 07/04/2022 10:15 AM BICYCLE DESIGNER LABORATORY RDW 13.3 10.0 - 15.0 % 07/04/2022 10:15 AM BICYCLE DESIGNER LABORATORY Platelet Count 244 150 - 450 10e3/uL 07/04/2022 10:15 AM BICYCLE DESIGNER LABORATORY Blood BLOOD SPECIMEN / Unknown Venipuncture / Unknown 07/04/2022 10:11 AM BICYCLE DESIGNER 07/04/2022 10:13 AM BICYCLE DESIGNER Julia Blanchard DO LAB - BLOOD ORDERABLES LABORATORY [facility] [address], [address] [place] [address], [facility] [phone] * CT Facial Bones with Contrast (07/03/2022 10:30 AM BICYCLE DESIGNER) Anatomical Region Laterality Modality Head, SUBRAD CT NEURO, UMP CT NEURO, RAD CT Computed Tomography Impressions 07/03/2022 10:54 AM BICYCLE DESIGNER IMPRESSION: 1. Left premaxillary soft tissue swelling [...] QUIQUE WATTERS MD Narrative 07/03/2022 10:[address] SCAN OF THE FACE WITH CONTRAST [...] PENG * (ABNORMAL) Ferritin (07/03/2022 7:50 AM BICYCLE DESIGNER) Pathologist [facility] Ferritin 1,553(H) 31 - 409 ng/mL 07/03/2022 1:43 PM BICYCLE DESIGNER U LABORATORY Blood VENOUS LINE / Unknown Venipuncture / Unknown 07/03/2022 7:50 AM BICYCLE DESIGNER 07/03/2022 7:54 AM BICYCLE DESIGNER Julia Blanchard DO LAB - BLOOD ORDERABLES U LABORATORY [facility] [address], [address] [address], [facility] [phone] * (ABNORMAL) Transferrin (07/03/2022 7:50 AM BICYCLE DESIGNER) [facility] Transferrin 150.0(L) 200.0 - 360.0 mg/dL 07/03/2022 6:52 PM BICYCLE DESIGNER U LABORATORY Blood VENOUS LINE / Unknown Venipuncture / Unknown 07/03/2022 7:50 AM BICYCLE DESIGNER 07/03/2022 7:54 AM BICYCLE DESIGNER Julia Blanchard DO LAB - BLOOD ORDERABLES LABORATORY [facility] [address], [address] [address], [facility] [phone] * (ABNORMAL) Iron & Iron Binding Capacity (07/03/2022 7:50 AM BICYCLE DESIGNER) [facility] Iron 92 61 - 157 ug/dL 07/03/2022 9:43 AM BICYCLE DESIGNER LABORATORY Iron Binding Capacity 198(L) 240 - 430 ug/dL 07/03/2022 9:43 AM BICYCLE DESIGNER LABORATORY Iron Sat Index 46 15 - 46 % 07/03/2022 9:43 AM BICYCLE DESIGNER LABORATORY Blood VENOUS LINE / Unknown Venipuncture / Unknown 07/03/2022 7:50 AM BICYCLE DESIGNER 07/03/2022 7:54 AM BICYCLE DESIGNER Julia Blanchard LAB - BLOOD ORDERABLES [facility] [address], [address] [place] [address], [place] [phone] * Extra Purple Top Tube (07/03/2022 7:50 AM BICYCLE DESIGNER) Hold Specimen [facility] 07/03/2022 9:02 AM BICYCLE DESIGNER LABORATORY Blood VENOUS LINE / Unknown Venipuncture / Unknown 07/03/2022 7:50 AM BICYCLE DESIGNER 07/03/2022 7:54 AM BICYCLE DESIGNER Garth Easton Jorge LAB - BLOOD ORD ERABLES [facility] [address], [address] [place] [address], [place] [phone] * Extra Green Top (Burt Heparin) Tube (07/03/2022 7:50 AM BICYCLE DESIGNER) Hold Specimen [facility] 07/03/2022 9:02 AM BICYCLE DESIGNER LABORATORY Blood VENOUS LINE / Unknown Venipuncture / Unknown 07/03/2022 7:50 AM BICYCLE DESIGNER 07/03/2022 7:54 AM BICYCLE DESIGNER Garth Patel LAB - BLOOD ORD ERABLES [facility] [address], [address] [place] [address], [place] [phone] * (ABNORMAL) Troponin T, High Sensitivity (07/03/2022 7:49 AM BICYCLE DESIGNER) Troponin T, High Sensitivity 101(HH) <=22 ng/L 07/03/2022 8:40 AM BICYCLE DESIGNER LABORATORY Comment: Either a High Sensitivity Troponin [...] Unknown Venipuncture / Unknown 07/03/2022 7:49 AM BICYCLE DESIGNER 07/03/2022 7:54 AM BICYCLE DESIGNER Garth Patel DO LAB - BLOOD ORD ERABLES LABORATORY [facility] [address], [address] [place] [address], [facility] [phone] * XR Chest 2 Views (07/03/2022 6:19 AM BICYCLE DESIGNER) Anatomical Region Laterality Modality Chest Digital Radiogra phy 07/03/2022 6:19 AM BICYCLE DESIGNER Impressions 07/03/2022 6:22 AM BICYCLE DESIGNER IMPRESSION: Negative chest. Narrative 07/03/2022 6:22 AM BICYCLE DESIGNER EXAM: XR CHEST 2 VIEWS LOCATION: [facility] DATE/TIME: 07/03/2022 6:19 AM INDICATION: Chest pain. COMPARISON: None. Procedure Note Raman Bernard MD - 07/03/2022 EXAM: XR CHEST 2 VIEWS LOCATION: [facility] DATE/TIME: 07/03/2022 6:19 AM INDICATION: Chest pain. COMPARISON: None. IMPRESSION: Negative chest. Garth Patel DO IM DIAGNOSTIC IMAGING ORDERABLES * Extra Blue Top Tube (07/03/2022 5:52 AM BICYCLE DESIGNER) Hold Specimen [facility] 07/03/2022 7:03 AM [facility] LABORATORY Blood BLOOD SPECIMEN / Unknown Venipuncture / Unknown 07/03/2022 5:52 AM BICYCLE DESIGNER 07/03/2022 5:55 AM BICYCLE DESIGNER Garth Patel LAB - BLOOD ORD ERABLES LABORATORY [facility] Acute Care Lab [address] 1[address] floor, [address] [place] [address], [facility] [phone] * (ABNORMAL) CBC with platelets and differential (07/03/2022 5:51 AM BICYCLE DESIGNER) Pathologist [facility] [place] WBC Count 10.6 4.0 - 11.0 10e3/uL 07/03/2022 6:07 AM [facility] LABORATORY RBC Count 2.83(L) 4.40 - 5.90 10e6/uL 07/03/2022 6:07 AM [facility] LABORATORY Hemoglobin 8.0(L) 13.3 - 17.7 g/dL 07/03/2022 6:07 AM [facility]OR[facility] Hematocrit 24.3(L) 40.0 - 53.0 % 07/03/2022 6:07 AM [facility] LABOR[facility] MCV 86 78 - 100 fL 07/03/2022 6:07 AM [facility] MCH 28.3 26.5 - 33.0 pg 07/03/2022 6:07 AM [facility] MCHC 32.9 31.5 - 36.5 g/dL 07/03/2022 6:07 AM [facility] RDW 13.4 10.0 - 15.0 % 07/03/2022 6:07 AM [facility] Platelet Count 288 150 - 450 10e3/uL 07/03/2022 6:07 AM [facility] % Neutrophils 66 % 07/03/2022 6:07 AM [facility] % Lymphocytes 17 % 07/03/2022 6:07 AM [facility] % Monocytes 8 % 07/03/2022 6:07 AM [facility] % Eosinophils 8 % 07/03/2022 6:07 AM [facility] % Basophils 1 % 07/03/2022 6:07 AM [facility] % Immature Granulocytes 0 % 07/03/2022 6:07 AM [facility] NRBCs per 100 WBC 0 <1 /100 023 6:07 AM [facility] Absolute Neutrophils 7.1 1.6 - 8.3 10e3/uL 07/03/2022 6:07 AM [facility] Absolute Lymphocytes 1.8 0.8 - 5.3 10e3/uL 07/03/2022 6:07 AM [facility] Absolute Monocytes 0.8 0.0 - 1.3 10e3/uL 07/03/2022 6:07 AM [facility] Absolute Eosinophils 0.8(H) 0.0 - 0.7 10e3/uL 07/03/2022 6:07 AM [facility] Absolute Basophils 0.1 0.0 - 0.2 10e3/uL 07/03/2022 6:07 AM [facility] Absolute Immature Granulocytes 0.0 <=0.4 10e3/uL 07/03/2022 6:07 AM [facility] Absolute NRBCs 0.0 10e3/uL 07/03/2022 6:07 AM [facility] LABORATORY Blood BLOOD SPECIMEN / Unknown Venipuncture / Unknown 07/03/2022 5:51 AM BICYCLE DESIGNER 07/03/2022 5:55 AM BICYCLE DESIGNER Garth Patel DO LAB - BLOOD ORD ERABLES LABORATORY [facility] Acute Care Lab [address] 1[address] floor, [address] [place] [address], [facility] [phone] * Extra Red Top Tube (07/03/2022 5:51 AM BICYCLE DESIGNER) Hold Specimen [facility] 07/03/2022 7:03 AM BICYCLE DESIGNER LABORATORY Blood BLOOD SPECIMEN / Unknown Venipuncture / Unknown 07/03/2022 5:51 AM BICYCLE DESIGNER 07/03/2022 5:55 AM BICYCLE DESIGNER Garth Patel LAB - BLOOD ORD EMILYBLES LABORATORY [facility] Care Lab [address] 1[address] floor, [address] [place] [address], [facility] [phone] * (ABNORMAL) Troponin T, High Sensitivity (07/03/2022 5:51 AM BICYCLE DESIGNER) [facility] Troponin T, High Sensitivity 100(HH) <=22 ng/L 07/03/2022 6:31 AM BICYCLE DESIGNER LABORATORY Comment: Either a High Sensitivity Troponin [...] Unknown Venipuncture / Unknown 07/03/2022 5:51 AM BICYCLE DESIGNER 07/03/2022 5:55 AM BICYCLE DESIGNER Garth Patel LAB - BLOOD ORD EMILYELLIOTT LABORATORY [facility] Lab [address] 1[address], [address] [place] [address], [facility] [phone] * (ABNORMAL) Basic metabolic panel (07/03/2022 5:51 AM BICYCLE DESIGNER) Pathologist [facility] [place] Sodium 141 136 - 145 mmol/L 07/03/2022 6:28 AM [facility]ORAT[facility] Potassium 5.1 3.4 - 5.3 mmol/L 07/03/2022 6:28 AM [facility] Chloride 100 98 - 107 mmol/L 07/03/2022 6:28 AM [facility] Carbon Dioxide (CO2) 19(L) 22 - 29 mmol/L 07/03/2022 6:28 AM [facility] Anion Gap 22(H) 7 - 15 mmol/L 07/03/2022 6:28 AM [facility] Urea Nitrogen 86.2(H) 6.0 - 20.0 mg/dL 07/03/2022 6:28 AM [facility] Creatinine 21.81(H) 0.67 - 1.17 mg/dL 07/03/2022 6:28 AM [facility] Calcium 9.8 8.6 - 10.0 mg/dL 07/03/2022 6:28 AM [facility] Glucose 109(H) 70 - 99 mg/dL 07/03/2022 6:28 AM [facility] GFR Estimate 3(L) >60 mL/min/1.7 3m2 07/03/2022 6:28 AM [facility]ORAT[facility] Comment:eGFR calculated us2020 CKD-EPI equation. Blood BLOOD SPECIMEN / Unknown Venipuncture / Unknown 07/03/2022 5:51 AM BICYCLE DESIGNER 07/03/2022 5:55 AM [facility] Garth Patel DO LAB - BLOOD ORD ERABLES LABORATORY [facility] Acute Care Lab [address] 1st floor, [address] [place] [address], [facility] [phone] * EKG 12-lead, tracing only (07/03/2022 5:38 AM [facility]) Systolic Blood Pressure mmHg RADIOLOGY RESULTS Diastolic Blood Pressure mmHg RADIOLOGY RESULTS Ventricular Rate 111 BPM RAD IOLOGY RESULTS Atrial Rate 111 BPM RADIOLOG Y RESULTS AR Interval 144 ms RADIOLOG Y RESULTS QRS Duration 90 ms RADIOLO GY RESULTS QT 344 ms RADIOLOGY RESULTS QTc 467 ms RADIOLOGY RESULTS P [place] 63 degrees RADIOLOGY RESULTS R AXIS 59 degrees RADIOLOGY RESULTS T [place] 76 degrees RADIOLOGY RESULTS Interpretation ECG Sinus tachycardia Possible Left atrial enlargement Borderline ECG When compared with ECG of 27-MAY-2022 15:20, Premature ventricular complexes are no longer Present Confirmed by GENERATED REPORT, COMPUTER ([id number]), editorial manager Efraín Puente ([id number]) on 07/03/2022 5:49:00 AM RADIOLOGY RESULTS 07/03/2022 5:38 AM BICYCLE DESIGNER 07/03/2022 5:49 AM BICYCLE DESIGNER Concetta Sanders MD ECG ORDERABLES RADIOLOGY RESULTS [...] dialysis, Dialysis $New Bag 07/03/2022 4:17 PM BICYCLE DESIGNER 250 mLs 0.9% sodium chloride BOLUS Hemodialysis Machine, 300 mL, ONCE, On Fri07/03/22 at 1200, For 1 dose, For Dialyzer Prime. (In Dialyzer), Dialysis $New Bag 07/03/2022 4:17 PM BICYCLE DESIGNER 300 mLs 0.9% sodium chloride BOLUS Intravenous, [...] Hold for SBP<110 $Given 07/04/2022 11:06 AM BICYCLE DESIGNER 10 mg $Given 07/03/2022 1:44 PM BICYCLE DESIGNER 10 mg amoxicillin-clavulanate (AUGMENTIN) 500-125 MG per tablet 1 tablet Routine, 1 tablet, Oral, EVERY 24 HOURS SCHEDULED, First dose on Fri07/04/22 at 1200, Give after dialysis on dialysis days., Indications: Tooth infection $Given 07/04/2022 12:32 PM BICYCLE DESIGNER 1 tablet epoetin jasmin-epbx (RETACRIT) injection 4,000 Units 4,000 Units, Intravenous, ONCE IN DIALYSIS/CRRT, On Fri07/03/22 at 1200, For 1 dose, Give during dialysis., Dialysis $Given 07/03/2022 4:18 PM BICYCLE DESIGNER 4,000 Units hydrALAZINE (APRESOLINE) injection 10 mg 10 mg, Intravenous, EVERY 4 HOURS PRN, high blood pressure, give for SBP > 180, Starting on Fri07/03/22 at 0846 hydrALAZINE (APRESOLINE) tablet 50 mg 50 mg, Oral, 2 TIMES DAILY, First dose on Fri07/03/22 at 1245, Hold for SBP<110 $Given 07/04/2022 11:06 AM BICYCLE DESIGNER 50 mg $Given 07/03/2022 7:52 PM BICYCLE DESIGNER 50 mg $Given 07/03/2022 1:44 PM BICYCLE DESIGNER 50 mg HYDROmorphone (DILAUDID) injection 0.4 mg 0.4 mg, Intravenous, EVERY 2 HOURS PRN, severe pain, IF patient cannot take oral opioid OR IF pain not managed with non-pharmacological, non-opioid, or oral opioid interventions if ordered, Starting on Fri07/03/22 at 0915, May use concomitant with non-opioid analgesics. $Given 07/03/2022 6:17 PM BICYCLE DESIGNER 0.4 mg HYDROmorphone (DILAUDID) injection 1 mg 1 mg, Intravenous, ONCE, On Fri07/03/22 at 0650, For 1 dose $Given 07/03/2022 6:53 AM BICYCLE DESIGNER 1 mg HYDROmorphone (DILAUDID) tablet 2 mg 2 mg, Oral, EVERY 4 HOURS PRN, severe pain, IF pain not managed with non-pharmacological and non-opioid interventions, Starting on Fri07/03/22 at 0915, May use concomitant with non-opioid analgesics. $Given 07/04/2022 4:31 PM BICYCLE DESIGNER 2 mg $Given 07/04/2022 8:39 AM BICYCLE DESIGNER 2 mg $Given 07/03/2022 1:47 PM BICYCLE DESIGNER 2 mg HYDROmorphone (PF) (DILAUDID) injection 0.5 mg 0.5 mg, Intravenous, ONCE, On Fri07/03/22 at 0850, For 1 dose $Given 07/03/2022 9:07 AM BICYCLE DESIGNER 0.5 mg hydrOXYzine (ATARAX) tablet 25 mg [...] contact the provider. $Given 07/03/2022 9:13 PM BICYCLE DESIGNER 25 mg iopamidol (ISOVUE-370) solution 75 mL 75 mL, Intravenous, ONCE, On Fri07/03/22 at 1015, For 1 dose $Given 07/03/2022 10:16 AM BICYCLE DESIGNER 75 mLs labetalol (NORMODYNE/TRANDATE) injection 10 mg 10 mg, Intravenous, ONCE, On Fri07/03/22 at 0745, For 1 dose, PROTECT FROM LIGHT. $Given 07/03/2022 7:51 AM BICYCLE DESIGNER 10 mg lisinopril (ZESTRIL) tablet 20 mg 20 mg, Oral, DAILY, First dose on Fri07/03/22 at 1235, Hold for SBP<110 $Given 07/04/2022 11:06 AM BICYCLE DESIGNER 20 mg $Given 07/03/2022 1:44 PM BICYCLE DESIGNER 20 mg magnesium oxide (MAG-OX) tablet 400 mg 400 mg, Oral, ONCE, On Fri07/04/22 at 1500, For 1 dose $Given 07/04/2022 2:43 PM BICYCLE DESIGNER 400 mg minoxidil (LONITEN) tablet 2.5 mg 2.5 mg, Oral, DAILY, First dose on Fri07/04/22 at 0800 $Given 07/04/2022 11:06 AM BICYCLE DESIGNER 2.5 mg naloxone (NARCAN) injection 0.2 mg [...] prochlorperazine (COMPAZINE). Irritant. $Given 07/03/2022 6:46 PM BICYCLE DESIGNER 4 mg $Given 07/03/2022 10:29 AM BICYCLE DESIGNER 4 mg prochlorperazine (COMPAZINE) injection 10 mg [...] IV dormant line $Given 07/04/2022 5:26 AM BICYCLE DESIGNER 3 mLs sodium chloride (PF) 0.9% PF flush 60 mL 60 mL, Intravenous, ONCE, On Fri07/03/22 at 1015, For 1 dose $Given 07/03/2022 10:16 AM BICYCLE DESIGNER 60 mLs documented in this encounter Active and Recently Administered Medications Times are shown in BICYCLE DESIGNER. Scheduled Medication Order 07/02/2022 07/03/2022 07/04/2022 0.9% [...] mg dose is ineffective, contact the provider. 3739 ($Given - Provider: Juhi Pro, IOANA) lidocaine [...] stools. documented in this encounter Care Teams Facility Attendant Relationship Specialty Start Date End Date No Ref-Primary, Physician PCP - General 04/14/22 documented as of this encounter
--- OUTSIDE RECORDS SUMMARY | 2023-05-20 09:41 | XMS_ITS | Referral Summary ---
Author Name Unknown Organization [place] Address [address] [place] [address] Care Team Providers Care Geophysics Professor Name Role Phone No Ref-Primary, Physician Primary [...] Advance Directives For more information, please contact: [phone] Latest Code Status on File Code Status [...] with patient/ legal decision maker Care Teams Geophysics Professor Relationship Specialty Start Date End Date No Ref-Primary, Physician PCP - General 04/14/22
--- OUTSIDE RECORDS SUMMARY | 2023-05-20 09:41 | XMS_ITS | Encounter Summary ---
Author Name Unknown Organization [place] Address [address] [place] [address] Care Team Providers Care Market Developer Name Role Phone No Ref-Primary, Physician Primary [...] on filedocumented in this encounter Care Teams Market Developer Relationship Specialty Start Date End Date No Ref-Primary, Physician PCP - General 04/14/22 documented as of this encounter
--- OUTSIDE RECORDS SUMMARY | 2023-05-20 09:41 | XMS_ITS | Encounter Summary ---
Author Name Unknown Organization [place] Address [address] [place] [address] Care Team Providers Care Ladle Cleaner Name Role Phone No Ref-Primary, Physician Primary Care Provider Reason for Visit * Reason Comments Abdominal Pain +headache +nausea/vo miting, dialysis patient Encounter Details Date Type Department Care Team (Late st Contact Info) Description 09/14/2022 5:05 AM CDT - 09/14/2022 9:34 AM CDT Emergency [facility] Emergency Dept [address] [place] [address] [phone] Senthil Stevenson MD [facility] [address] [place], [place] [phone] Rachid Wood MD [facility] [address] [place] [address] ESRD on hemodialysis (H); Essential hypertension; Abdominal [...] directed by your provider today. Before using [id number] medications, ask your provider and make sure [...] Care Everywhere. * Earache, No Infection (Adult) (Libyan) documented in this encounter Medications at Time [...] from August 18 at the [facility] were reviewed - patient admitted for medication [...] CDT EXAM: CT TEMPORAL W/O CONTRAST LOCATION: [facility] DATE/TIME: 09/14/2022 6:48 AM CDT INDICATION: [...] 09/14/2022 EXAM: CT TEMPORAL W/O CONTRAST LOCATION: [facility] DATE/TIME: 09/14/2022 6:48 AM CDT INDICATION: [...] CT ABDOMEN AND PELVIS WITHOUT CONTRAST LOCATION: [facility] DATE/TIME: 09/14/2022, 6:47 AM CDT INDICATION: [...] CT ABDOMEN AND PELVIS WITHOUT CONTRAST LOCATION: [facility] DATE/TIME: 09/14/2022, 6:47 AM CDT INDICATION: [...] for abdominal aortic aneurysm. Senthil Stevenson MD [facility] CT ORDERABLES * (ABNORMAL) CBC with platelets [...] Stevenson MD LAB - BLOOD ORDERABL ES [facility] Acute Care Lab [address] Lab (1st floor, no room number) [place] [address], [facility] [phone] * Lipase (09/14/2022 5:48 AM CDT) Lipase 50 13 - 60 U/L 09/14/2022 6:18 AM CDT [facility] LABORATORY Blood BLOOD SPECIMEN / Unknown Venipuncture / Unknown 09/14/2022 5:48 AM CDT 09/14/2022 5:53 AM CDT Senthil Stevenson MD LAB - BLOOD ORDERABL ES Performing Organization Address [facility]/ZIP Co de Phone Number [facility] Care Lab [address] Lab (1st floor, no room number) [place] [address], [facility] [phone] * (ABNORMAL) Lactic acid whole blood (09/14/2022 5:48 AM CDT) Lactic Acid 0.5(L) 0.7 - 2.0 mmol/L 09/14/2022 5:57 AM CDT [facility] LABORATORY Blood BLOOD SPECIMEN / Unknown Venipuncture / Unknown 09/14/2022 5:48 AM CDT 09/14/2022 5:52 AM CDT Senthil Stevenson MD LAB - BLOOD ORDERABL ES Performing Organization Address [facility]/ZIP Co de Phone Number [facility] Acute Care Lab [address] Lab (1st floor, no room number) [place] [address], [facility] [phone] * (ABNORMAL) Comprehensive metabolic panel (09/14/2022 5:48 [...] MD LAB - BLOOD ORDERABL ES LABORATORY [facility] Acute Care Lab [address] [facility] Lab (1st floor, no room number) [place] [address], [facility] [phone] documented in this encounter Visit Diagnoses Diagnosis [...] analgesic side effects. Hold while on IV FIELD ASSEMBLY SUPERVISOR or with regular IV opioid dosing. $Given [...] analgesic side effects. Hold while on IV FIELD ASSEMBLY SUPERVISOR or with regular IV opioid dosing. 0551 ($Given - Provi krystina: Alexia Wilkinson RN)0708 ($Given - Provider: Sherlyn Shepard RN) ondansetron (ZOFRAN) injection 4 mg (COMPLETED) 4 mg, Intravenous, ONCE PRN, nausea, vomiting, Administer over 2-5 Minutes, Starting on 09/14/22 at 0525, For 1 dose, Irritant. 0545 ($Given - Provi krystina: Alexia Wilkinson RN) documented in this encounter Care Teams Ladle Cleaner Relationship Specialty Start Date End Date No Ref-Primary, Physician PCP - General 04/14/22 documented as of this encounter
--- OUTSIDE RECORDS SUMMARY | 2023-05-20 09:42 | XMS_ITS | Encounter Summary ---
Author Name Unknown Organization [facility] Address [address] [place] [id number] Care Team Providers Care Datapower Developer Name Role Phone No Ref-Primary, Physician Primary Care Provider Reason for Visit * Reason Comments Dental Pain * Auth/Cert (Routine) Specialty Diagnoses / Procedures Referred By Mel quiroz Referred To Contact EMERGENCY MEDICINE Diagnoses Spell of altered consciousness Hyperkalemia Jaw pain Headache Spell of altered consciousness Emergency Dept [address] [place] [address] Referral ID Status Reason Start Date Expiration Date Visits Re quested Visits Authorized [id number] 1 1 Encounter Details Date Type Department Care Team (Late st Contact Info) Description 05/27/2022 2:02 PM NNPS - 05/29/2022 2:43 PM NNPS Hospital Encounter [place] [id number] [facility] [address] [place] [address] Brooks Finnegan PA-C [facility] [address] [place], [place] [phone] Sundeep Melvin MD [address] [place], [place] [id number] Aliza Stevenson MD [facility] [address] [place], [place] [phone] Teresita Fausitn DO [facility] [address] [facility] [place] [address] Benign essential hypertension (Primary Dx); Hyperkalemia; Jaw [...] Comments Blood Pressure 162/82 05/29/2022 7:26 AM NNPS Pulse 102 05/29/2022 7:26 AM NNPS Temperature 37.1 ??C (98.8 ??F) 05/29/2022 7:26 AM CS T Respiratory Rate 18 05/29/2022 7:26 AM NNPS Oxygen Saturation 96% 05/29/2022 7:26 AM NNPS Inhaled Oxygen Concentration - - Weight 66.9 kg (147 lb 6.4 oz) 05/29/2022 6:29 A M NNPS Height 162.6 cm (5' 4) 05/27/2022 1:48 PM NNPS Body Mass Index 25.3 05/27/2022 1:48 PM NNPS documented in this encounter Discharge Summaries * Aliza Burnette DO - 05/29/2022 10:43 AM CST Hospitalist Discharge Summary [facility] Salbador Justin Date of : [...] dialysis and hypertension who recently moved to [place] from [place] about 3 months ago and has yet to establish care with a primary care provider who presents to the ED for evaluation of dental pain and concern for multiple seizure like episodes. ?? #Hyperkalemia. AGMA. ESRD??on HD (//Fri):??Compliant with dialysis, last run without issues at [facility] on 05/25. Detail Technician is Concetta Burns in [place]. Initial potassium level of 6.4. Anion gap [...] his own. Previous EEG while residing in [place].?? -Neurology contacted in ED and recommended holding [...] due to pain and needing dialysis. -Resumed STAIN REMOVER Amlodipine, Carvedilol, Hydralazine, Lisinopril, and Minoxidil -PRN [...] Minutes Aliza Burnette DO MPH [facility] [place] [address] 05/29/2022 documented in this encounter Discharge Instructions * Discharge Instructions* Wade Bruno RN - 05/29/2022 11:27 AM NNPS Your hospital follow up appointment has been scheduled for you with Dr. Maco Hylton at [facility] for June 05 at 3:45 pm. Please bring your hospital discharge instructions, a photo ID, and insurance information with you to your appointment. Please call the clinic at #[phone] if you need to reschedule. documented in this encounter Medications at Time [...] can go. Follow up with HD in [place]. Titration of BP meds per Dr. Freire, his primary ecommerce marketing specialist. Carlos Salgado MD * Itzel Barksdale RN - 05/28/2022 1:03 [...] to treatment See Adult Hemodialysis flowsheet in [facility] for further details and post assessment. Machine water alarm in place and functioning. Transducer pods intact and checked every 15min. Pt returned via bed. Chlorine/Chloramine water system checked every 4 hours. Outpatient Dialysis at [facility] Patient repositioned every 2 hours during the treatment. Post treatment report given to Trinidad Causey RN regarding 1L of fluid removed, last BP of 208/117, and patient pain rating of 10/10. Please remove patient dressing on AVF and AVG needle sites 24 hours after dialysis. If leaking occurs please apply a Band-Aid. * Alvaro Draper MD - 05/28/2022 12:00 PM CST [facility] Hospitalist Progress Note Assessment & Plan Salbador Justin is a 36 year old male with PMH significant for ESRD on dialysis and hypertension who recently moved to [place] from [place] about 3 months ago and has yet to establish care witha primary care provider who presents to the ED for evaluation of dental pain and concern for multiple seizure like episodes. ?? #Hyperkalemia. AGMA. ESRD on HD (/Fri): compliant with dialysis, last run without issues at [facility] on 05/25. Detail Technician is Concetta Burns in [place]. Initial potassium level of 6.4. Anion gap [...] his own. Previous EEG while residing in [place]. - seizure precautions - neurology contacted in [...] to pain and needing dialysis. - resume STAIN REMOVER Amlodipine, Carvedilol, Hydralazine, Lisinopril, and Minoxidil - [...] the left maxillary sinus. ALIZA SIEGEL MD * Mor Malcolm RN - 05/27/2022 11:26 [...] to face. Planned dialysis tomorrow. Discharge pending. * Mor Malcolm RN - 05/27/2022 10:07 PM CST At 2145 this conventional mortgage underwriter responded to pt call light. Pt indicated he was going to have seizure. Pt went unresponsive for 45 seconds then came too, stating I'm back now. Provider notified. Seizure pads in place. Will continue to provide supportive cares. * Dalton Mendieta MD - 05/27/2022 4:43 [...] or outpatient prescription. Pt reports going to [facility]? Will need to determine these details tomorrow when clinic open. - lokelma 10 g q8h - HD tomorrow - no further K checks needed overnight unless continued seizure activity Dalton Mendieta MD documented in this encounter H&P Notes * Belinda Driscoll PA-C - 05/27/2022 5:57 PM CST [facility] Hospitalist History and Physical Name: Salbador Justin Date of : 1985 Age: [age] year old Date of Admission: 05/27/2022 Date of Service (when I saw the patient): 05/27/22 Assessment & Plan Salbador Justin is a 36 year old male with PMH significant for ESRD on dialysis and hypertension who recently moved to [place] from [place] about 3 months ago and has yet [...] with dialysis, last run without issues at [facility] on 05/25. Detail Technician is Concetta Burns in [place]. Initial potassium level of 6.4. Anion gap [...] his own. Previous EEG while residing in [place]. Historydoes not completely seem consistent with seizures. [...] tachycardic, suspect due to pain - resume STAIN REMOVER Amlodipine, Carvedilol, Hydralazine, Lisinopril, and Minoxidil - [...] states the pain is over his left confucianism, upper jaw, and radiates into his ear. [...] care provider since he moved here from [place]. Denies any tobacco, alcohol, or illicit drug [...] of left ear. Mild tenderness over left confucianism with palpation. CV: Regular rate and rhythm, [...] Rate 101 BPM Atrial Rate 101 BPM [place] Interval 144 ms QRS Duration 104 ms QT 380 ms QTc 492 ms P [place] 66 degrees R AXIS 80 degrees T [place] Line 57 degrees Interpretation ECG Sinus tachycardia with occasional Premature ventricular complexes Possible Left atrial enlargement Borderline ECG No previous ECGs available CBC with platelets differential Status: Abnormal Narrative The following orders were created for panel order CBC with platelets differential. Procedure Abnormality Status --------- ------ CBC with platelets and d...[[id number]] Abnormal Final result Please view results for these tests on the individual orders. [facility] Securely message with the [employer] Console (learn more here) Text page via [facility] Paging/Directory I discussed the patient with Dr. Frazier and he agrees with the above plan. Associated attestation - Sundeep Melvin MD - 05/28/2022 6:22 PM NNPS Physician Attestation I have reviewed and discussed [...] Communication Assessment Patient's communication style: spoken language (Anguillan or Bilingual) Hearing Difficulty or Deaf: no [...] services: No Community Resources: states friends and bahai assist with hotel/motel payment. Equipment currently used [...] No Current Concerns Values/Beliefs: Spiritual, Cultural Beliefs, [employer] Practices, Values that affect care: no Additional Information: Patient admitted for dental pain and concern of possible seizure. CM following for discharge planning. Met with patient at bedside. He reports he recently moved to [place] from [facility], 3 months ago. [facility] he is living at a hotel, [facility]. [facility] his ex-girlfriend lives near . Patient receives OP HD at [facility], chair time 7:30 am-11:30. [facility] HD center is nearby so he walks or his ex-girlfriend provides transportation. Patient reports having no financial concerns. He starts a new job in 2 weeks. He is independent in all ADLs. Discussed establishing care with a dentist and PCP of his choice. Patient would like [place] providers. CM assisted with scheduling f/u appointment with [facility] on June 05. Patient states he will call to schedule his appointment with a dentist. Patient given a list of dental clinic in [facility]. Patient plans to discharge to home/hotel. His ex will provide transportation. Wade Bruno RN Case Manager Inpatient Care Coordination [facility] [phone] Wade Bruno RN * Dalton Mendieta MD - 05/28/2022 11:33 AM CSTAssociated Order(s): NEPHROLOGY IP CONSULT [facility] Nephrology Consultation Date of Admission: 05/27/2022 Assessment & Plan Salbador Justin is a 36 year old male with PMH ESRD on HD, seizures who was admitted on 05/27/2022 facial pain and possible seizure activity. ESRD on HD Dialyzes TTS at [facility]. Access is LUE AVF. Prescription details verified with RN over phone: 4h run, 2K/2.5Ca, 16 g 350 BFR, 5K loading bolus heparin without maintenance . Primary ecommerce marketing specialist is Dr. Concetta Burns. EDW 69.5 kg. [...] can add phos binder (doesn't appear on STAIN REMOVER list) Hyperkalemia K elevated in setting of needing dialysis and possible seizure. Given lokelma overnight, will dialyze today. - can discontinue lokelma HTN Continue STAIN REMOVER lisinopril, minoxidil, carvedilol, amlodipine. PLAN: - HD today - discontinued lokelma - resume STAIN REMOVER BP meds - TTS schedule Plan discussed [...] He notes he again has severe L confucianism pain, even tender to touch. Hemay or may not have had a seizure prior to presentation but unclear. He has not missed any dialysis last HD 05/25. He denies shortness of breath, LE edema. Only symptom is L confucianism pain. Denies n/v. Seen during dialysis and [...] in pain HEENT: MMM, tenderness to L confucianism CV: RRR, no murmurs RESP: Clear bilaterally [...] the last 168 hours. Dalton Mendieta MD [facility] - Nephrology [phone] * Elder John MD - 05/28/2022 9:20 AM CST Images from the original note were not included. Neurology Consult Note [facility] [May 28, 2022] Admission Date: 05/27/2022 Hospital Day: 2 Code Status: Full Code Patient: Salbador Justin : 1985 CC: Chief Complaint Patient presents with ??? Dental Pain Consult Request: Referring Provider: Sundeep Melvin MD Indication for Consultation: Which Neurology Group will follow this patient? [facility] Patient to be seen Routine within 24 hrs Reason for Consult reported seizure activity, h/o seizure no longer on antiepeleptics Note: Specific question for wardrobe image consultant Business Development Executive may enter orders Yes Requesting provider? Hospitalist (if different from attending physician) Primary Care Provider: No Ref-Primary, Physician HPI: Salbador Justin is a 36 year old yo gentleman admitted for hyperkalemia in the setting of ESRD, on dialysis. Despite diagnoses of severe hypertension and ESRD requiring dialysis three times weekly, he has not established care with a PCP in [place] despite moving here from [facility] three months ago. He has, however, received care on several occasions in the ER in [place], with initial ER encounter noted in February [...] diagnosed with epilepsy by a neurologist in [facility], with reported abnormal EEG. He [...] Daily ??? amoxicillin-clavulanate 1 tablet Oral Q12H [facility] (12/15) ??? carvedilol 12.5 mg Oral [...] results for input(s): PHOS in the last 22412 hours.0.7 mg (actual weight) CMP: Recent Labs [...] prior records regarding previously prescribed medication in [facility], andresults of his EEG performed in [place]. I recommend outpatient evaluation regarding his report of the diagnosis of epilepsy. Please call if there are further questions. Elder John M.D., Ph.D. [facility] documented in this encounter ED Notes * Shell Blanchard RN - 05/27/2022 8:18 PM CST Report given to Mor TRIPLETT * Shell Blanchard RN - 05/27/2022 7:23 PM CST DATE: 05/27/2022 TIME OF RECEIPT FROM LAB: 1922 LAB TEST: potassium LAB VALUE: 6.2 RESULTS GIVEN WITH READ-BACK TO (PROVIDER): Brooks Finnegan PA-C TIME LAB VALUE REPORTED TO PROVIDER: expected value Patient needs dialysis * Diane Causey RN - 05/27/2022 6:23 PM CST [facility] ED Nurse Handoff Report Salbador [...] Assist. Lift room needed: No. Bariatric: No Rides Supervisor Needed: No Isolation: No. Infection: Not Applicable. [...] on May 28, 2022 at 12:46 PM * Yoon Lugo RN - 05/27/2022 1:50 [...] and . Triage Assessment Row Name 05/27/22 9342 Triage Assessment (Adult) Airway WDL WDL Respiratory WDL Respiratory WDL WDL Skin Circulation/Temperature WDL Skin Circulation/Temperature WDL WDL Cardiac WDL Cardiac WDL WDL Peripheral/Neurovascular WDL Peripheral Neurovascular WDL WDL Cognitive/Neuro/Behavioral WDL Cognitive/Neuro/Behavioral WDL WDL * Brooks Finnegan PA-C - 05/27/2022 1:24 PM CST History Chief Complaint: Dental Pain HPI Salbador Justin is a 36 year old male with a history of ESRD on dialysis and hypertension who presents with right upper dental pain and pain in the confucianism and eye for the past 2 days. [...] focal deficits. Alert and oriented x3. Normal precipitator operator strength. Normal leg raise. Sensation to light touch intact throughout all 4 extremities. 5/5 strength with dorsiflexion and plantarflexion bilaterally. GCS 15 Psychiatric: Normal affect. Nursing notes and vital signs reviewed. Emergency Department Course ECG: ECG results from 05/27/22 EKG 12-lead, tracing only Value Systolic Blood Pressure Diastolic Blood Pressure Ventricular Rate 101 Atrial Rate 101 [place] Interval 144 QRS Duration 104 QT 380 QTc 492 P [place] 66 R AXIS 80 T [place] 57 Interpretation ECG Sinus tachycardia with occasional [...] ED Course as of 05/27/221927May 27, 2022 9822 I obtained the history and examined the [...] Tests: [address] Mendieta, ecommerce marketing specialist, regarding the patient. 1708 I spoke with [...] 05/27/22 192 Brooks Finnegan PA-C 05/27/22 1934 documented in this encounter Miscellaneous Notes * [...] transport. Goal Outcome Evaluation: Adequate for discharge * Plan of Care - Pau Damico [...] neurology assessment and control on tooth pain. * Plan of Care - Promise Watts [...] Disposition: possible discharge tomorrow. Discharge Time: TBD. * Utilization Review - Prisca Bain MD [...] Prisca Bain MD Utilization Review/ Case Management [facility]. * Plan of Care - Diane Causey RN - 05/28/2022 1:30 PM CST 13:20 Patient Transfer Information Patient connected to monitoring equipment on arrival: NA Patient connected to wall oxygen on arrival:NA Belongings: Clothing cell phone Safety check completed:Yes. Seizure pads on bed Pt arrived to [facility] from ED via dialysis. Went to dialysis as an ED boarder this morning then came toMS3 from there at 13:20. Continue plan of care. 13:43 Text page sent to , Pt just arrived to [facility], room 355. He needs a diet order. [...] and IV Unasyn per orders. Neurology following. * Plan of Care - Cintia Steele [...] Tylenol time.Both medications given with good relief. * Pharmacy-Admission Medication History - JenMariano Stephen, [facility] - 05/27/2022 7:20 PM CST Admission medication history interview status for this patient is complete. See [facility] admission navigator for allergy information, prior to admission medications and immunization status. Medication history interview done, indicate source(s): Patient Medication history resources (including written lists, pill bottles, clinic record):Gareth Torres Everywhere, [facility] pharmacy [facility] [address] [place] [address] Changes made to STAIN REMOVER medication list: Added: all meds Actions taken by pharmacist (provider contacted, etc):sticky note to hospitalist Additional medication history information: conventional mortgage underwriter called [facility] pharmacy to confirm meds on the list below. Even though spironolactone and citalopram was on [place] [facility] Everywhere, both of them were notprescribed recently. [facility] for the two meds. Medication reconciliation/reorder completed by provider prior to medication history? N Prior to Admission medications Medication Sig Last Dose Taking? Auth Provider Prison End Date amLODIPine (NORVASC) 10 MG tablet [...] DYSPEPSIA 05/25/2022 Yes Unknown, Entered By History documented in this encounter Plan of Treatment Scheduled Orders Name Type Priority Associated Diagnoses Orde r Schedule EKG 12-lead, tracing only EKG STAT Enter condition for order release in comments for 1 Occurrences starting 05/28/2022 documented as of this encounter Procedures Procedure Name Priority Date/Time Associated Diagnosis Comments BASIC METABOLIC PANEL Routine 05/29/2022 7:14 AM NNPS CBC WITH PLATELETS Routine 05/29/2022 7: 14 AM NNPS CBC WITH PLATELETS AND DIFFERENTIAL STAT 05/28/2022 12:58 PM NNPS CBC WITH PLATELETS & DIFFERENTIAL STAT 05/28/2022 12:58 PM NNPS BASIC METABOLIC PANEL STAT 05/28/2022 12:58 PM NNPS HEPATITIS B SURFACE ANTIBODY STAT 05/27/2022 10:24 PM NNPS TROPONIN T, HIGH SENSITIVITY STAT 05/27/2022 10:24 PM NNPS HEPATITIS B SURFACE ANTIGEN STAT 05/27/2022 10:24 PM NNPS POTASSIUM STAT 05/27/2022 8:07 PM NNPS PHOSPHORUS Add-On 05/27/2022 8:07 PM NNPS POTASSIUM STAT 05/27/2022 6:[address] HEAD W/O CONTRAST STAT 05/27/2022 4:[address] ABDOMEN PELVIS W/O CONTRAST STAT 05/27/2022 4:04 PM NNPS EKG 12-LEAD, TRACING ONLY STAT 05/27/2022 3:20 PM NNPS CBC WITH PLATELETS AND DIFFERENTIAL STAT 05/27/2022 3:01 PM NNPS TROPONIN T, HIGH SENSITIVITY STAT 05/27/2022 3:01 PM NNPS CBC WITH PLATELETS & DIFFERENTIAL STAT 05/27/2022 3:01 PM NNPS MAGNESIUM STAT 05/27/2022 3:01 PM NNPS LIPASE STAT 05/27/2022 3:01 PM NNPS LACTIC ACID WHOLE BLOOD STAT 05/27/2022 3:01 PM NNPS COMPREHENSIVE METABOLIC PANEL STAT 05/27/2022 3:01 PM NNPS documented in this encounter Results * (ABNORMAL) Basic metabolic panel (05/29/2022 7:14 AM NNPS) Sodium 137 136 - 145 mmol/L 05/29/2022 8:22 AM [facility] Potassium 4.1 3.4 - 5.3 mmol/L 05/29/2022 8:22 AM [facility] Chloride 96(L) 98 - 107 mmol/L 05/29/2022 8:22 AM [facility] Carbon Dioxide (CO2) 25 22 - 29 mmol/L 05/29/2022 8:22 AM [facility] Anion Gap 16(H) 7 - 15 mmol/L 05/29/2022 8:22 AM [facility] Urea Nitrogen 26.5(H) 6.0 - 20.0 mg/dL 05/29/2022 8:22 AM [facility] Creatinine 11.28(H) 0.67 - 1.17 mg/dL 05/29/2022 8:22 AM [facility] Calcium 8.9 8.6 - 10.0 mg/dL 05/29/2022 8:22 AM [facility] Glucose 124(H) 70 - 99 mg/dL 05/29/2022 8:22 AM [facility] GFR Estimate 6(L) >60 mL/min/1.7 3m2 05/29/2022 8:22 AM [facility] Comment:eGFR calculated usin 2020 CKD-EPI equation. Blood STRUCTURE OF RIGHT HAND / Unknown Venipuncture / Unknown 05/29/2022 7:14 AM NNPS 05/29/2022 7:55 AM [facility] Alvaro Draper MD LAB - BLOOD ORDERABL ES LABORATORY [facility] [address] [facility] (1st floor, no room number) [place] [address], [facility] [phone] * (ABNORMAL) CBC with platelets (05/29/2022 7:14 AM NNPS) WBC Count 9.9 4.0 - 11.0 10e3/uL 05/29/2022 7:58 AM [facility] RBC Count 3.28(L) 4.40 - 5.90 10e6/uL 05/29/2022 7:58 AM [facility] Hemoglobin 9.1(L) 13.3 - 17.7 g/dL 05/29/2022 7:58 AM [facility] Hematocrit 29.0(L) 40.0 - 53.0 % 05/29/2022 7:58 AM [facility] MCV 88 78 - 100 fL 05/29/2022 7:58 AM [facility] MCH 27.7 26.5 - 33.0 pg 05/29/2022 7:58 AM [facility] MCHC 31.4(L) 31.5 - 36.5 g/dL 05/29/2022 7:58 AM [facility] RDW 14.2 10.0 - 15.0 % 05/29/2022 7:58 AM [facility] Platelet Count 300 150 - 450 10e3/uL 05/29/2022 7:58 AM [facility] Blood STRUCTURE OF RIGHT HAND / Unknown Venipuncture / Unknown 05/29/2022 7:14 AM NNPS 05/29/2022 7:55 AM NNPS Alvaro Draper MD LAB - BLOOD ORDERABL ES RH LABORATORY [facility] [address] [facility] (1st floor, no room number) [place] [address], [facility] [phone] * (ABNORMAL) CBC with platelets and differential (05/28/2022 12:58 PM NNPS) WBC Count 8.6 4.0 - 11.0 10e3/uL 05/28/2022 1:15 PM [facility] RBC Count 3.45(L) 4.40 - 5.90 10e6/uL 05/28/2022 1:15 PM [facility] Hemoglobin 9.6(L) 13.3 - 17.7 g/dL 05/28/2022 1:15 PM [facility] Hematocrit 29.6(L) 40.0 - 53.0 % 05/28/2022 1:15 PM [facility] MCV 86 78 - 100 fL 05/28/2022 1:15 PM [facility] MCH 27.8 26.5 - 33.0 pg 05/28/2022 1:15 PM [facility] MCHC 32.4 31.5 - 36.5 g/dL 05/28/2022 1:15 PM [facility] RDW 13.7 10.0 - 15.0 % 05/28/2022 1:15 PM [facility] Platelet Count 311 150 - 450 10e3/uL 05/28/2022 1:15 PM [facility] % Neutrophils 67 % 05/28/2022 1:15 PM [facility] % Lymphocytes 16 % 05/28/2022 1:15 PM [facility] % Monocytes 10 % 05/28/2022 1:15 PM [facility] % Eosinophils 6 % 05/28/2022 1:15 PM [facility] % Basophils 1 % 05/28/2022 1:15 PM [facility] % Immature Granulocytes 0 % 05/28/2022 1:15 PM [facility] NRBCs per 100 WBC 0 <1 /100 023 1:15 PM [facility] Absolute Neutrophils 5.7 1.6 - 8.3 10e3/uL 05/28/2022 1:15 PM [facility] Absolute Lymphocytes 1.4 0.8 - 5.3 10e3/uL 05/28/2022 1:15 PM [facility] Absolute Monocytes 0.9 0.0 - 1.3 10e3/uL 05/28/2022 1:15 PM [facility] Absolute Eosinophils 0.5 0.0 - 0.7 10e3/uL 05/28/2022 1:15 PM [facility] Absolute Basophils 0.1 0.0 - 0.2 10e3/uL 05/28/2022 1:15 PM [facility] Absolute Immature Granulocytes 0.0 <=0.4 10e3/uL 05/28/2022 1:15 PM [facility] Absolute NRBCs 0.0 10e3/uL 05/28/2022 1:15 PM [facility] Blood STRUCTURE OF LEFT HAND / Unknown Venipuncture / Unknown 05/28/2022 12:58 PM NNPS 05/28/2022 1:04 PM [facility] Alvaro Draper MD LAB - BLOOD ORDERABL ES RH LABORATORY [facility] [address] Lab (1st floor, no room number) [place] [address], [facility] [phone] * (ABNORMAL) Basic metabolic panel (05/28/2022 12:58 PM NNPS) Pathologist [facility] Sodium 141 136 - 145 mmol/L 05/28/2022 2:50 PM [facility] Potassium 3.3(L) 3.4 - 5.3 mmol/L 05/28/2022 2:50 PM [facility] Chloride 96(L) 98 - 107 mmol/L 05/28/2022 2:50 PM [facility] Carbon Dioxide (CO2) 26 22 - 29 mmol/L 05/28/2022 2:50 PM [facility] Anion Gap 19(H) 7 - 15 mmol/L 05/28/2022 2:50 PM [facility] Urea Nitrogen 16.6 6.0 - 20.0 mg/dL 05/28/2022 2:50 PM [facility] Creatinine 5.89(H) 0.67 - 1.17 mg/dL 05/28/2022 2:50 PM [facility] Calcium 9.5 8.6 - 10.0 mg/dL 05/28/2022 2:50 PM [facility] Glucose 75 70 - 99 mg/dL 05/28/2022 2:50 PM [facility] GFR Estimate 12(L) >60 mL/min/1.7 3m2 05/28/2022 2:50 PM [facility] Comment:eGFR calculated usin 2020 CKD-EPI equation. Blood STRUCTURE OF LEFT HAND / Unknown Venipuncture / Unknown 05/28/2022 12:58 PM [facility] 05/28/2022 1:04 PM [facility] Alvaro Draper MD LAB - BLOOD ORDERABL ES LABORATORY [facility] [address] Lab (1st floor, no room number) [place] [address], [facility] [phone] * Hepatitis B Surface Antibody (05/27/2022 10:24 PM [facility]) Hepatitis B Surface Antibody Instrument Value 12.08 <8.00 m[IU]/mL 05/28/2022 6:48 PM [facility] SPECIALTY CORE/PROT/END O Hepatitis B Surface Antibody Reactive 05/28/2022 6:48 PM [facility] SPECIALTY CORE/PROT/END O Comment:Patient is considere d to be immune to infection with hepatitis B when the value is greater than or equal to 12.00 mIU/mL. Blood STRUCTURE OF RIGHT HAND / Unknown Venipuncture / Unknown 05/27/2022 10:24 PM [facility] 05/27/2022 10:33 PM [facility] Carlos Salgado MD LAB - BLOOD ORDERABL ES [facility] SPECIALTY CORE/PROT/ENDO [facility] Specialty Core/Prot/Endo [address] [facility], [address] [phone] * Hepatitis B surface antigen (05/27/2022 10:24 PM [facility]) Hepatitis B Surface Antigen Nonreactive Nonreactive 05/28/2022 6:48 PM [facility] SPECIALTY CORE/PROT/EN DO Blood STRUCTURE OF RIGHT HAND / Unknown Venipuncture / Unknown 05/27/2022 10:24 PM [facility] 05/27/2022 10:33 PM [facility] Carlos Salgado MD LAB - BLOOD ORDERABL ES SPECIALTY CORE/PROT/ENDO Specialty Core/Prot/Endo [address] [facility], [address] [phone] * (ABNORMAL) Troponin T, High Sensitivity (05/27/2022 10:24 PM [facility]) Troponin T, High Sensitivity 66(H) <=22 ng/L 05/27/2022 10:52 PM [facility] Comment: Either a High Sensitivity Troponin [...] Unknown Venipuncture / Unknown 05/27/2022 10:24 PM [facility] 05/27/2022 10:33 PM [facility] Belinda Driscoll PA-C LAB - BLOOD OMAR SURESH [facility] [address] Lab (1st floor, no room number) [place] [phone], [facility] [phone] * (ABNORMAL) Phosphorus (05/27/2022 8:07 PM [facility]) Phosphorus 6.9(H) 2.5 - 4.5 mg/dL 05/28/2022 11:54 AM [facility] Blood STRUCTURE OF RIGHT HAND / Unknown Venipuncture / Unknown 05/27/2022 8:07 PM [facility] 05/27/2022 8:45 PM [facility] Dalton Mendieta MD LAB - BLOOD ORDER PENG [facility] [address] Lab (1st floor, no room number) [place] [address], [facility] [phone] * (ABNORMAL) Potassium (05/27/2022 8:07 PM [facility]) Potassium 6.4(HH) 3.4 - 5.3 mmol/L 05/27/2022 9:30 PM [facility] Blood STRUCTURE OF RIGHT HAND / Unknown Venipuncture / Unknown 05/27/2022 8:07 PM [facility] 05/27/2022 8:45 PM [facility] Brooks PEREZ-C LAB - BLOOD ORDERABL ES [facility] [address] Lab (1st floor, no room number) [place] [address], [facility] [phone] * (ABNORMAL) Potassium (05/27/2022 6:43 PM [facility]) Potassium 6.2(HH) 3.4 - 5.3 mmol/L 05/27/2022 7:23 PM [facility] Blood STRUCTURE OF RIGHT HAND / Unknown Venipuncture / Unknown 05/27/2022 6:43 PM [facility] 05/27/2022 6:49 PM [facility] Brooks Finnegan PA-C LAB - BLOOD ORDERABL ES Performing Organization Address [facility]/ZIP Co de Phone Number [facility] [address] Lab (1st floor, no room number) [place] [address], [facility] [phone] * CT Head w/o Contrast (05/27/2022 4:04 PM [facility]) Anatomical Region Laterality Modality Head, SUBRAD CT NEURO, SUBRA D CT NEURO, UMP CT NEURO, RAD CT Computed Tomography Impressions 05/27/2022 4:37 PM [facility] IMPRESSION: ?? 1. No acute intracranial hemorrhage, extra axial fluid collection, or mass effect. 2. Possible subtle patchy nonspecific hypoattenuation in the cerebral white matter, as described. 3. Mild to moderate polypoid mucosal thickening in the left maxillary sinus. ALIZA SIEGEL MD Narrative 05/27/2022 4:[address] SCAN OF THE HEAD WITHOUT CONTRAST [...] sinus. ALIZA SIEGEL MD Brooks Finnegan PA-C [facility] CT ORDERABLES * CT Abdomen Pelvis w/o Contrast (05/27/2022 4:04 PM [facility]) Anatomical Region Laterality Modality Abdomen/Pelvis, SUBRAD CT BRIAN DY, UMP CT ABDOMEN PELVIS, RAD CT Computed Tomography Impressions 05/27/2022 4:16 PM [facility] IMPRESSION: Within the limitation of noncontrast exam, [...] ANJELICA MUSE MD Narrative 05/27/2022 4:[address] ABDOMEN PELVIS WITHOUT CONTRAST ??05/27/2022 4:04 [...] EKG 12-lead, tracing only (05/27/2022 3:20 PM [facility]) Systolic Blood Pressure mmHg RADIOLOGY RESULTS Diastolic Blood Pressure mmHg RADIOLOGY RESULTS Ventricular Rate 101 BPM RAD IOLOGY RESULTS Atrial Rate 101 BPM RADIOLOG Y RESULTS [place] Interval 144 ms RADIOLOG Y RESULTS QRS Duration 104 ms RADIOLO GY RESULTS QT 380 ms RADIOLOGY RESULTS QTc 492 ms RADIOLOGY RESULTS P [place] 66 degrees RADIOLOGY RESULTS R AXIS 80 degrees RADIOLOGY RESULTS T [place] 57 degrees RADIOLOGY RESULTS Interpretation ECG Sinus tachycardia with occasional Premature ventricular complexes Possible Left atrial enlargement Borderline ECG No previous ECGs available Confirmed by - EMERGENCY ROOM, PHYSICIAN ([id number]), editor at large YODIT MITTAL ([id number]) on 05/28/2022 7:40:38 AM RADIOLOGY RESULTS 05/27/2022 3:20 PM [facility]PS 05/28/2022 7:40 AM [facility] Brooks Finnegan PA-C ECG ORDERABLES RADIOLOGY RESULTS * Lipase (05/27/2022 3:01 PM [facility]) Pathologist [facility] Lipase 37 13 - 60 U/L 05/27/2022 6:49 PM [facility] Blood BLOOD SPECIMEN / Unknown Venipuncture / Unknown 05/27/2022 3:01 PM [facility] 05/27/2022 3:06 PM [facility] Brooks Finnegan PA-C LAB - BLOOD ORDERABL ES LABORATORY [facility] [address] Lab (1st floor, no room number) [place] [address] [phone] * (ABNORMAL) CBC with platelets and differential (05/27/2022 3:01 PM [facility]) WBC Count 8.2 4.0 - 11.0 10e3/uL 05/27/2022 3:34 PM [facility] RBC Count 3.76(L) 4.40 - 5.90 10e6/uL 05/27/2022 3:34 PM [facility] Hemoglobin 10.6(L) 13.3 - 17.7 g/dL 05/27/2022 3:34 PM [facility] Hematocrit 33.5(L) 40.0 - 53.0 % 05/27/2022 3:34 PM [facility] MCV 89 78 - 100 fL 05/27/2022 3:34 PM [facility] MCH 28.2 26.5 - 33.0 pg 05/27/2022 3:34 PM [facility] MCHC 31.6 31.5 - 36.5 g/dL 05/27/2022 3:34 PM [facility] RDW 13.9 10.0 - 15.0 % 05/27/2022 3:34 PM [facility] Platelet Count 313 150 - 450 10e3/uL 05/27/2022 3:34 PM [facility] % Neutrophils 71 % 05/27/2022 3:34 PM [facility] % Lymphocytes 17 % 05/27/2022 3:34 PM [facility] % Monocytes 8 % 05/27/2022 3:34 PM [facility] % Eosinophils 3 % 05/27/2022 3:34 PM [facility] % Basophils 1 % 05/27/2022 3:34 PM [facility] % Immature Granulocytes 0 % 05/27/2022 3:34 PM [facility] NRBCs per 100 WBC 0 <1 /100 023 3:34 PM [facility] Absolute Neutrophils 5.9 1.6 - 8.3 10e3/uL 05/27/2022 3:34 PM [facility] Absolute Lymphocytes 1.4 0.8 - 5.3 10e3/uL 05/27/2022 3:34 PM [facility] Absolute Monocytes 0.6 0.0 - 1.3 10e3/uL 05/27/2022 3:34 PM [facility] Absolute Eosinophils 0.2 0.0 - 0.7 10e3/uL 05/27/2022 3:34 PM [facility] Absolute Basophils 0.1 0.0 - 0.2 10e3/uL 05/27/2022 3:34 PM [facility] Absolute Immature Granulocytes 0.0 <=0.4 10e3/uL 05/27/2022 3:34 PM [facility] Absolute NRBCs 0.0 10e3/uL 05/27/2022 3:34 PM [facility] Blood BLOOD SPECIMEN / Unknown Venipuncture / Unknown 05/27/2022 3:01 PM [facility] 05/27/2022 3:06 PM [facility] Brooks Finnegan PA-C LAB - BLOOD ORDERABL ES Performing Organization Address [facility]/ZIP Co de Phone Number LABORATORY [facility] [address] Lab (1st floor, no room number) [place] [address], [facility] [phone] * Lactic acid whole blood (05/27/2022 3:01 PM [facility]) Lactic Acid 1.6 0.7 - 2.0 mmol/L 05/27/2022 3:09 PM [facility] Blood BLOOD SPECIMEN / Unknown Venipuncture / Unknown 05/27/2022 3:01 PM [facility] 05/27/2022 3:06 PM [facility] Brooks PEREZ-Antonieta LAB - BLOOD ORDERABL ES Performing Organization Address [facility]/ZIP Co de Phone Number LABORATORY [facility] [address] Lab (1st floor, no room number) [place] [address], [facility] [phone] * (ABNORMAL) Troponin T, High Sensitivity (05/27/2022 3:01 PM [facility]PS) Troponin T, High Sensitivity 68(H) <=22 ng/L 05/27/2022 3:57 PM [facility] Comment: Either a High Sensitivity Troponin [...] Unknown Venipuncture / Unknown 05/27/2022 3:01 PM [facility] 05/27/2022 3:06 PM [facility] Brooks PEREZ-C LAB - BLOOD ORDERABL ES Performing Organization Address City/[facility]/ZIP Co de Phone Number LABORATORY [facility] [address] Lab (1st floor, no room number) [place] [address], [facility] [phone] * Magnesium (05/27/2022 3:01 PM [facility]) Pathologist [facility] Magnesium 2.0 1.7 - 2.3 mg/dL 05/27/2022 3:57 PM [facility] Blood BLOOD SPECIMEN / Unknown Venipuncture / Unknown 05/27/2022 3:01 PM [facility] 05/27/2022 3:06 PM [facility] Brooks PEREZ-C LAB - BLOOD ORDERABL ES Performing Organization Address [facility]/ZIP Co de Phone Number [facility] [address] Lab (1st floor, no room number) [place] [address], [facility] [phone] * (ABNORMAL) Comprehensive metabolic panel (05/27/2022 3:01 PM [facility]) Sodium 136 136 - 145 mmol/L 05/27/2022 4:23 PM [facility] Potassium 6.4(HH) 3.4 - 5.3 mmol/L 05/27/2022 4:23 PM [facility] Comment:Specimen slightly he molyzed, potassium may be falsely elevated. Chloride 92(L) 98 - 107 mmol/L 05/27/2022 4:23 PM [facility] Carbon Dioxide (CO2) 16(L) 22 - 29 mmol/L 05/27/2022 4:23 PM [facility] Anion Gap 28(H) 7 - 15 mmol/L 05/27/2022 4:23 PM [facility] Urea Nitrogen 43.8(H) 6.0 - 20.0 mg/dL 05/27/2022 4:23 PM [facility] Creatinine 13.78(H) 0.67 - 1.17 mg/dL 05/27/2022 4:23 PM [facility] Calcium 9.5 8.6 - 10.0 mg/dL 05/27/2022 4:23 PM [facility] Glucose 79 70 - 99 mg/dL 05/27/2022 4:23 PM [facility] Alkaline Phosphatase 51 40 - 129 U/L 05/27/2022 4:23 PM [facility] AST 23 10 - 50 U/L 05/27/2022 4:23 PM [facility] Comment:Specimen is hemolyze d which can falsely elevate AST. Analysis of a non-hemolyzed specimen may result in a lower value. ALT 13 10 - 50 U/L 05/27/2022 4:23 PM [facility] Protein Total 7.9 6.4 - 8.3 g/dL 05/27/2022 4:23 PM [facility] Albumin 5.0 3.5 - 5.2 g/dL 05/27/2022 4:23 PM [facility] Bilirubin Total 0.4 <=1.2 mg/dL 05/27/2022 4:23 PM [facility] GFR Estimate 4(L) >60 mL/min/1. 73m2 05/27/2022 4:23 PM [facility] Comment:eGFR calculated usin 2020 CKD-EPI equation. Blood BLOOD SPECIMEN / Unknown Venipuncture / Unknown 05/27/2022 3:01 PM [facility]PS 05/27/2022 3:06 PM [facility] Brooks Finnegan PA-C LAB - BLOOD ORDERABL ES LABORATORY [facility] [address] [facility] Lab (1st floor, no room number) [place] [address], [facility] [phone] documented in this encounter Visit Diagnoses Diagnosis [...] 1 dose $New Bag 05/27/2022 3:00 PM [facility]PS 1,000 mLs 1000 mL/hr 0.9% sodium chloride BOLUS Intravenous, 250 mL, ONCE IN DIALYSIS/CRRT, On Fri05/28/22 at 0715, For 1 dose, For patient prime during dialysis, Dialysis $New Bag 05/28/2022 11:28 AM NNPS 250 mLs 0.9% sodium chloride BOLUS Hemodialysis Machine, 300 mL, ONCE, On Fri05/28/22 at 0715, For 1 dose, For Dialyzer Prime. (In Dialyzer), Dialysis $New Bag 05/28/2022 11:28 AM [facility]PS 300 mLs 0.9% sodium chloride BOLUS Intravenous, [...] exceed 4 grams/day. $Given 05/29/2022 6:24 AM [facility]PS 650 mg $Given 05/28/2022 10:40 PM [facility]PS 650 mg $Given 05/28/2022 7:25 PM [facility]PS 650 mg acetaminophen (TYLENOL) tablet 975 mg 975 mg, Oral, EVERY 8 HOURS PRN, mild pain, Starting on Fri05/27/22 at 2024, Maximum acetaminophen dose from all sources = 75 mg/kg/day not to exceed 4 grams/day. $Given 05/27/2022 10:35 PM [facility]PS 975 mg amLODIPine (NORVASC) tablet 10 mg 10 mg, Oral, DAILY, First dose on Fri05/28/22 at 0800 $Given 05/29/2022 8:26 AM NNPS 10 mg $Given 05/28/2022 1:54 PM [facility]PS 10 mg amoxicillin-clavulanate (AUGMENTIN) 500-125 MG per tablet 1 tablet STAT, 1 tablet, Oral, EVERY 12 HOURS SCHEDULED, First dose on Fri05/27/22 at 2105, Indications: Dental infection $Given 05/27/2022 10:13 PM [facility] 1 table t ampicillin-sulbactam (UNASYN) 3 g vial to attach to NS 100 mL bag STAT, 3 g, Intravenous, EVERY 24 HOURS, First dose on Fri05/28/22 at 2000, Indications: dental infection $New Bag 05/28/2022 8:20 PM [facility]PS 3 g calcium gluconate 1 g in [...] as phosphate-containing solutions $Given 05/27/2022 4:50 PM NNPS 1 g carvedilol (COREG) tablet 12.5 mg 12.5 mg, Oral, 2 TIMES DAILY WITH MEALS, First dose on Fri05/27/22 at 2025 $Given 05/28/2022 6:17 PM [facility]PS 12.5 mg $Given 05/27/2022 9:03 PM [facility]PS 12.5 mg docusate (COLACE) 50 MG/5ML liquid 100 mg 100 mg, Oral, ONCE, On Fri05/27/22 at 1725, For 1 dose, FOR EAR Hold for loose stools. $Given 05/27/2022 5:43 PM [facility]PS 100 mg furosemide (LASIX) injection 40 mg 40 mg, Intravenous, ONCE, Administer over 1-3 Minutes, On Fri05/27/22 at 1700, For 1 dose $Given 05/27/2022 5:23 PM [facility]PS 40 mg heparin (porcine) injection 500 Units, Hemodialysis Machine OR IV Push, ONCE IN DIALYSIS/CRRT, On Fri05/28/22 at 0715, For 1 dose, LOADING DOSE Administer loading dose prior to heparin infusion. PRE DIALYSIS RUN Dialysis, Dialysis $Given 05/28/2022 11:27 AM NNPS 500 Units heparin 10,000 units/10 mL infusion (DIALYSIS USE) 500 Units/hr (0.5 mL/hr), Hemodialysis Machine, CONTINUOUS, Starting on Fri05/28/22 at 0715, DURING DIALYSIS TREATMENT, Dialysis $New Bag 05/28/2022 11:27 AM [facility] 500 Units/hr 0.5 mL/hr hydrALAZINE (APRESOLINE) injection 10 mg 10 mg, Intravenous, EVERY 6 HOURS PRN, high blood pressure, give for SBP > 180, Starting on Fri05/27/22 at 2136 hydrALAZINE (APRESOLINE) tablet 50 mg 50 mg, Oral, 2 TIMES DAILY, First dose on Fri05/27/22 at 5 $Given 05/29/2022 8:27 AM NNPS 50 mg $Given 05/28/2022 8:22 PM NNPS 50 mg $Given 05/28/2022 2:00 PM NNPS 50 mg HYDROmorphone (DILAUDID) half-tab 1-2 mg 1-2 mg, Oral, EVERY 4 HOURS PRN, moderate pain, IF pain not managed with non-pharmacological and non-opioid interventions, Starting on Fri05/27/22 at 2024, May use concomitant with non-opioid analgesics. $Given 05/29/2022 10:13 AM NNPS 1 mg $Given 05/28/2022 10:40 PM NNPS 2 mg $Given 05/28/2022 6:15 PM NNPS 2 mg HYDROmorphone (DILAUDID) injection 0.2 mg 0.2 mg, Intravenous, ONCE PRN, moderate pain, severe pain, Starting on Fri05/27/22 at 1445, For 1 dose, Notify the provider to assess for uncontrolled pain or analgesic side effects. Hold while on IV TUFTING MACHINE FIXER or with regular IV opioid dosing. $Given 05/27/2022 3:00 PM [facility]PS 0.2 mg HYDROmorphone (DILAUDID) injection 0.2 mg 0.2 mg, Intravenous, EVERY 2 HOURS PRN, moderate pain, IF patient cannot take oral opioid OR IF pain not managed with non-pharmacological, non-opioid, or oral opioid interventions if ordered, Starting on Fri05/27/22 at 2023, May use concomitant with non-opioid analgesics. $Given 05/27/2022 8:36 PM [facility]PS 0.2 mg HYDROmorphone (PF) (DILAUDID) injection 0.3-0.5 mg 0.3-0.5 mg, Intravenous, EVERY 2 HOURS PRN, moderate pain, severe pain, IF patient cannot take oral opioid OR IF pain not managed with non-pharmacological, non-opioid, or oral opioid interventions if ordered, Starting on Fri05/27/22 at 2054, May use concomitant with non-opioid analgesics. $Given 05/29/2022 1:08 PM [facility]PS 0.5 mg $Given 05/29/2022 6:25 AM NNPS 0.3 mg $Given 05/28/2022 3:18 PM [facility]PS 0.5 mg HYDROmorphone (PF) (DILAUDID) injection 0.5 mg 0.5 mg, Intravenous, ONCE PRN, moderate pain, severe pain, Starting on Fri05/27/22 at 1544, For 1 dose, Notify the provider to assess for uncontrolled pain or analgesic side effects. Hold while on IV TUFTING MACHINE FIXER or with regular IV opioid dosing. $Given 05/27/2022 4:36 PM [facility]PS 0.5 mg hydrOXYzine (ATARAX) tablet 25 mg [...] contact the provider. $Given 05/28/2022 5:33 AM NNPS 25 mg $Given 05/28/2022 2:15 AM [facility]PS 25 mg hydrOXYzine (ATARAX) tablet 50 mg [...] contact the provider. $Given 05/28/2022 6:17 PM [facility]PS 50 mg $Given 05/28/2022 1:23 PM NNPS 50 mg labetalol (NORMODYNE/TRANDATE) injection 10 mg 10 mg, Intravenous, ONCE, On Fri05/27/22 at 1730, For 1 dose, PROTECT FROM LIGHT. $Given 05/27/2022 5:42 PM [facility]PS 10 mg lisinopril (ZESTRIL) tablet 20 mg 20 mg, Oral, DAILY, First dose on Fri05/28/22 at 0800, This therapy was substituted for benazepril (Lotensin) 20 mg daily. $Given 05/29/2022 8:26 AM NNPS 20 mg $Given 05/28/2022 1:54 PM NNPS 20 mg minoxidil (LONITEN) tablet 2.5 mg 2.5 mg, Oral, DAILY, First dose on Fri05/28/22 at 0800 $Given 05/29/2022 8:26 AM NNPS 2.5 mg ondansetron (ZOFRAN ODT) ODT tab [...] prochlorperazine (COMPAZINE). Irritant. $Given 05/27/2022 8:32 PM NNPS 4 mg oxyCODONE (ROXICODONE) tablet 5 mg 5 mg, Oral, ONCE, On Fri05/28/22 at 1040, For 1 dose $Given 05/28/2022 10:59 AM NNPS 5 mg pantoprazole (PROTONIX) EC tablet 40 mg 40 mg, Oral, EVERY MORNING BEFORE BREAKFAST, First dose on Fri05/28/22 at 0730 $Given 05/29/2022 6:24 AM NNPS 40 mg $Given 05/28/2022 1:54 PM NNPS 40 mg senna-docusate (SENOKOT-S/PERICOLACE) 8.6-50 MG per [...] IV dormant line $Given 05/29/2022 1:08 PM NNPS 3 mLs $Given 05/28/2022 11:36 PM NNPS 3 mLs $Given 05/28/2022 8:35 PM NNPS 3 mLs sodium zirconium cyclosilicate (LOKELMA) packet 10 g 10 g, Oral, EVERY 8 HOURS, First dose on Fri05/27/22 at 1700, Administer at least 2 hours before or 2 hours after other oral medications. Empty the entire contents of packet into at least 3 tablespoons of water, stir well and drink immediately $Given 05/28/2022 1:13 AM NNPS 10 g $Given 05/27/2022 5:46 PM NNPS 10 g witch kimmie-glycerin (TUCKS) pad Topical, EVERY 1 HOUR PRN, hemorrhoids, Starting on Fri05/28/22 at 0149, Apply to hemorrhoids. This product or its equivalent is supplied by [facility]. It is NOT STOCKED by Pharmacy. documented in this encounter Active and Recently Administered Medications Times are shown in NNPS. Scheduled Medication Order 05/27/2022 05/28/2022 05/29/2022 - [...] analgesic side effects. Hold while on IV TUFTING MACHINE FIXER or with regular IV opioid dosing. 1500 [...] analgesic side effects. Hold while on IV TUFTING MACHINE FIXER or with regular IV opioid dosing. 1636 [...] product or its equivalent is supplied by [facility]. It is NOT STOCKED by Pharmacy. Linked [...] stools. documented in this encounter Care Teams Datapower Developer Relationship Specialty Start Date End Date No Ref-Primary, Physician PCP - General 04/14/22 documented as of this encounter
--- OUTSIDE RECORDS SUMMARY | 2023-05-20 09:42 | XMS_ITS ---
Author Name Unknown Organization [facility] Address [address] [place] [address] Care Team Providers Care Databases Software Consultant Name Role Phone No Ref-Primary, Physician Primary Care Provider Transitional Care Management Status:Closed (Closed) Start date:07/05/2022 Enrollment date:07/05/2022 End date:07/22/2022 Close reason:Goals met Continued Care and Services Coordination
--- OUTSIDE RECORDS SUMMARY | 2023-05-20 09:42 | XMS_ITS | Encounter Summary ---
Author Name Unknown Organization [facility] Address [address] [place] [address] Care Team Providers Care Machine Veneer Repairer Name Role Phone No Ref-Primary, Physician Primary [...] Coronavirus/COVID-19? No / Unsure 07/03/2022 5:40 AM STUNNER ANIMAL documented as of this encounter Plan of Treatment Not on file documented as of this encounter Visit Diagnoses Not on filedocumented in this encounter Care Teams Machine Veneer Repairer Relationship Specialty Start Date End Date No Ref-Primary, Physician PCP - General 04/14/22 documented as of this encounter
--- OUTSIDE RECORDS SUMMARY | 2023-05-20 09:42 | XMS_ITS ---
Author Name Unknown Organization [facility] Address [address] [place] [address] Care Team Providers Care Bisque Kiln Drawer Name Role Phone No Ref-Primary, Physician Primary Care Provider Transitional Care Management Status:Closed (Closed) Start date:05/30/2022 Enrollment date:05/31/2022 End date:06/14/2022 Close reason:Goals met Continued Care and Services Coordination
--- OUTSIDE RECORDS SUMMARY | 2023-05-20 09:42 | XMS_ITS | Clinical Summary ---
Author Name Unknown Organization [facility] Address [address] [place] [address] Care Team Providers Care Grommet Machine Operator Name Role Phone Elsewhere, Pcp Primary Care Provider Unavailabl e Source Comments Patient records contain information from all sites at [facility]. For routine questions regarding patient records, call [phone] during business hours, M-F 8:00 AM - 5:00 PM Central Time. Record requests for emergency care only can be directed to [phone] at any time.[facility] Allergies Active Allergy Reactions Criticality Noted [...] a day. 180 tablet 3 01/17/2023 01/17/2024 Active sertraline (ZOLOFT) 50 mg tablet Take 1 tablet (50 mg total) by mouth daily. 90 tablet 3 01/27/2023 01/27/2024 Active cyanocobalamin (vitamin B-12) 1,000 mcg tablet [...] daily with dinner. 90 tablet 3 02/24/2023 02/24/2024 Active prochlorperazine (COMPAZINE) 5 mg tablet Take 1 tablet (5 mg total) by mouth every 6 (six) hours as needed for nausea or vomiting. 30 tablet 0 03/18/2023 Active irbesartan (AVAPRO) 300 mg tablet Take 1 tablet (300 mg total) by mouth daily. 90 tablet 3 03/25/2023 03/24/2024 Active amLODIPine (NORVASC) 10 mg tablet Take 1 tablet (10 mg total) by mouth daily. 90 tablet 3 04/01/2023 03/31/2024 Active hydrALAZINE (APRESOLINE) 50 mg tablet Take 1 tablet (50 mg total) by mouth every 8 (eight) hours. 270 tablet 3 04/08/2023 04/07/2024 Active isosorbide mononitrate (IMDUR) 30 mg 24 hr tablet Take 1 tablet (30 mg total) by mouth every evening. 90 tablet 3 04/08/2023 04/07/2024 Active traZODone (DESYREL) 50 mg tablet Take 1 tablet (50 mg total) by mouth at bedtime. 30 tablet 11 04/15/2023 04/14/2024 Active nortriptyline (PAMELOR) 10 mg capsule Take 1 capsule (10 mg total) by mouth at bedtime. 30 capsule 0 05/13/2023 06/12/2023 Active polyethylene glycol (MIRALAX) 17 gram powder packet Take 1 packet (17 g total) by mouth daily for 5 days. Dissolve each 17 g dose in 240 mLs (8 ounces) of beverage. Hold for diarrhea. 5 packet 0 05/14/2023 05/19/2023 sennosides-docusat e sodium (SENOKOT-S) 8.6-50 mg per tablet Take 1 tablet by mouth 2 (two) times a day for 3 days. 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 Emergency Department [address] [place] [phone] Carlos Brown M.D., M.S. Baljit Rubi M.D., M.H.A. Johnnie Toro M.D. 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 05/14/2023 Clinical Communication Maco Espinoza [facility] Transplantation and Clinical Regeneration in [place], [place] [address] [place] [phone] Roseline Humphrey R.N. Phone Contact 05/14/2023 Orders Only Division of Nephrology and Hypertension, [facility], in [place], [place] [address] [place] [address] Drew Mo APRN C.N.P., M.S.N. 05/13/2023 Orders Only Division of Nephrology and Hypertension, [facility], in [place], [place] [address] [place] [address] Drew Mo APRN C.N.P., M.S.N. 04/15/2023 Orders Only Division of Nephrology and Hypertension in [place], [place] [address] [place] [address] Concetta Mejía M.D., Ph.D. 04/08/2023 Orders Only Division of Nephrology and Hypertension, [facility], in [place], [place] [address] [place] [address] Drew Mo APRN C.N.P., M.S.N. 04/02/2023 Orders Only Pharmacy Prior Auth RO [phone] Marko Hager 04/01/2023 Orders Only Division of Nephrology and Hypertension, [facility], in [place], [place] [address] [place] [address] Drew Mo APRN C.N.P., M.S.N. 03/25/2023 Orders Only Division of Nephrology and Hypertension in [place], [place] [address] [place] [address] Garth Burdick Jr., PauloO. 03/18/2023 Orders Only Division of Nephrology and Hypertension, [facility], in [place], [place] [address] [place] [address] Drew Mo APRN, C.N.P., M.S.N. 03/04/2023 Orders Only Division of Nephrology and Hypertension, [facility], in [place], [place] [address] [place] [address] Drew Mo APRN, C.NHugo, M.S.N. 02/24/2023 Orders Only Division of Nephrology and Hypertension, [facility], in [place], [place] [address] [place] [address] Drew Mo APRN, C.NRashida., M.S.N. 02/19/2023 Orders Only Division of Nephrology and Hypertension, [facility], in [place], [place] [address] [place] [address] Drew Mo APRN, C.N.Olga., M.S.N. from Last 3 Months Immunizations Name Administration [...] Sign Reading Time Taken Comments Blood Pressure 160/89 05/18/2023 4:45 PM MANAGEMENT AIDE Pulse 78 05/18/2023 3:00 PM MANAGEMENT AIDE Temperature 36.5 ??C (97.7 ??F) 05/18/2023 2:47 PM CS T Respiratory Rate 20 05/18/2023 6:27 PM MANAGEMENT AIDE Oxygen Saturation 98% 05/18/2023 3:00 PM MANAGEMENT AIDE Inhaled Oxygen Concentration - - Weight 62 kg (136 lb 11 oz) 11/21/2022 12:56 PM CDT Height 165.1 cm (5' 5) 05/18/2023 5:18 AM MANAGEMENT AIDE Body Mass Index 22.45 11/21/2022 12:56 PM [...] PHQ-2) 04/28/2023 Creatinine Level (Kidney Function Test) 05/18/2024 05/18/2023, 02/07/2023, 02/06/2023, Additional history exists Potassium Level 05/18/2024 05/18/2023, 01/26, 02/06/2023, Additional history exists Sodium Level 05/18/2024 05/18/2023, 01/26, 02/06/2023, Additional history exists HPV Vaccines Aged Out No longer eligi ble based on patient's age to complete this topic Medical Devices Implanted Type Area Multimedia Producer Device Identifier Shelf Expiration Date Model / Serial / Lot Vascular Graft Vascular Graft Left: Arm Procedures Procedure Name Priority Date/Time Associated Diagnosis Comments MICROSCOPIC MANUAL STAT 05/18/2023 8: 46 AM MANAGEMENT AIDE DIPSTICK, U STAT 05/18/2023 8:46 AM MANAGEMENT AIDE PH, U STAT 05/18/2023 8:46 AM MANAGEMENT AIDE OSMOLALITY, U STAT 05/18/2023 8:46 AM MANAGEMENT AIDE URINALYSIS WITH MICROSCOPIC STAT 05/18/2023 8:46 AM MANAGEMENT AIDE BACTERIAL CULTURE, AEROBIC + SUSC, URINE STAT 05/18/2023 8:46 AM MANAGEMENT AIDE HEMODIALYSIS Routine 05/18/2023 8:13 AM MANAGEMENT AIDE ECG STAT 05/18/2023 7:[address] ABDOMEN PELVIS WITHOUT IV CONTRAST RAD - Semiurgent (Fast; most ED patients; some inpatients) 05/18/2023 6:26 AM MANAGEMENT AIDE LIPASE, S/P STAT 05/18/2023 6:14 AM MANAGEMENT AIDE LACTATE, B STAT 05/18/2023 6:14 AM MANAGEMENT AIDE HEPATIC FUNCTION PANEL, S STAT 05/18/2023 6:14 AM MANAGEMENT AIDE BASIC METABOLIC PANEL, S/P STAT 05/18/2023 6:14 AM MANAGEMENT AIDE CBC WITH DIFFERENTIAL, B STAT 05/18/2023 6:14 AM MANAGEMENT AIDE from Last 3 Months Results * (ABNORMAL) Dipstick, Urine (05/18/2023 8:46 AM MANAGEMENT AIDE) Hemoglobin, QL, U Trace(A) Negative 05/18/2023 10:08 AM MANAGEMENT AIDE DTL Leukocyte Esterase, U Trace(A) Negative 05/18/2023 10:08 AM MANAGEMENT AIDE DTL Nitrite, U Negative Negative 05/18/2023 10:08 AM MANAGEMENT AIDE DTL Ketone, U Negative Negative mg/dL 05/18/2023 10:08 AM MANAGEMENT AIDE DTL Glucose, U Negative Negative mg/dL 05/18/2023 10:08 AM MANAGEMENT AIDE DTL Urine 05/18/2023 8:46 AM MANAGEMENT AIDE 05/18/2023 9:49 AM MANAGEMENT AIDE Lucy Henrdon M.D., M.S. LAB URINE ORDERABLES Performing Organization Address City/[facility] Co de Phone Number [facility] [address] [place] [address], [facility] [address] [place] [address] * Microscopic Manual (05/18/2023 8:46 AM MANAGEMENT AIDE) Microscopy Normal 05/18/2023 10:37 AM MANAGEMENT AIDE DTL RBC <3 <3 /hpf 05/18/2023 10:37 AM MANAGEMENT AIDE DTL WBC 1-3 /hpf 05/18/2023 10:37 AM MANAGEMENT AIDE DTL Comment: ----REFERENCE VALUE---- <4 ??(Males) <11 (Females) Squamous Epithelial Cells, U 1-3 /hpf 05/18/2023 10:37 AM MANAGEMENT AIDE DTL Urine 05/18/2023 8:46 AM MANAGEMENT AIDE 05/18/2023 10:08 AM MANAGEMENT AIDE Lucy Herndon M.D., M.S. LAB URINE ORDERABLES Performing Organization Address City/[facility] Co de Phone Number [facility] [address] [place] [address], [facility] [address] [place] [address] * Bacterial Culture, Aerobic + Susceptibility, Urine (05/18/2023 8:46 AM MANAGEMENT AIDE) Urine Culture No growth after 1 day of incubation. 05/19/2023 12:33 PM MANAGEMENT AIDE DTL Urine (Urine, Midstream) 05/18/2023 8:46 AM MANAGEMENT AIDE 05/18/2023 2:26 PM MANAGEMENT AIDE Comment:Specimen Source Site : Urine Lucy Herndon M.D., M.S. LAB MICROB IOLOGY - GENERAL ORDERABLES Performing Organization Address [facility] Co de Phone Number [facility] [address] [place] [address] * pH, Urine (05/18/2023 8:46 AM MANAGEMENT AIDE) pH, U 7.8 4.5 - 8.0 05/18/2023 10: 14 AM MANAGEMENT AIDE DTL Urine 05/18/2023 8:46 AM MANAGEMENT AIDE 05/18/2023 9:49 AM MANAGEMENT AIDE Lucy Herndon M.D., M.S. LAB URINE ORDERABLES Performing Organization Address [facility] Co de Phone Number [facility] [address] [place], [place] [address] [place] [address] 200 [place] [address] * Osmolality, Urine (05/18/2023 8:46 AM MANAGEMENT AIDE) Osmolality, U 305 150 - 1150 mOsm/kg 05/18/2023 10:14 AM MANAGEMENT AIDE DTL Urine 05/18/2023 8:46 AM MANAGEMENT AIDE 05/18/2023 9:49 AM MANAGEMENT AIDE Lucy Herndon M.D., M.S. LAB URINE ORDERABLES Performing Organization Address City/[facility] Co de Phone Number [facility] [address] [place], [place] [phone] [place] [address] 200 [place] [address] * (ABNORMAL) Urinalysis with Microscopic: Urine, Midstream (05/18/2023 8:46 AM MANAGEMENT AIDE) Source Urine, Urine, Midstream 05/18/2023 9:49 AM MANAGEMENT AIDE DTL Color, U Yellow 05/18/2023 9:49 AM MANAGEMENT AIDE DTL Clarity, U Clear 05/18/2023 9:49 AM MANAGEMENT AIDE DTL Protein, U 191(H) <26 mg/dL 05/18/2023 10:38 AM MANAGEMENT AIDE DTL Protein/Osmol ality 6.26(H) <0.42 ratio 05/18/2023 10:38 AM MANAGEMENT AIDE DTL Predicted 24 HR Protein, U 5410(H) <229 mg/24 h 05/18/2023 10:38 AM MANAGEMENT AIDE DTL Predicted Range 1717-86386 mg/24 h 05/18/2023 10:38 AM MANAGEMENT AIDE DTL Urine (Urine, Midstream) 05/18/2023 8:46 AM MANAGEMENT AIDE 05/18/2023 9:49 AM MANAGEMENT AIDE Lucy Herndon M.D., M.S. LAB URINE ORDERABLES [facility] [address] [place] [address], [facility] [address] [place] [address] * ECG 12 Lead (05/18/2023 7:16 AM MANAGEMENT AIDE) Ventricular Rate ECG/Min 87 BPM MUSE DE Interval 146 ms MUSE QRSD Interval 104 ms MUSE QT Interval 390 ms MUSE QTC Interval 469 ms MUSE P Gackle 63 degrees MUSE R Gackle 86 degrees MUSE T Wave Gackle 53 degrees MUSE 05/18/2023 7:16 AM MANAGEMENT AIDE 05/18/2023 7:24 AM MANAGEMENT AIDE Impressions MUSE - 05/18/2023 7:24 AM MANAGEMENT AIDE Normal sinus rhythm Minimal voltage criteria for LVH, may be normal variant Nonspecific ST abnormality When compared with ECG of 05-FEB-2023 19:57, Premature ventricular complexes are no longer present QT has shortened Reviewed by ELENA Cleveland Narrative Procedure Note Buddy Hinojosa M.D. - 05/18/2023 IMPRESSION: Normal sinus rhythm Minimal voltage criteria for LVH, may be normal variant Nonspecific ST abnormality When compared with ECG of 05-FEB-2023 19:57, Premature ventricular complexes are no longer present QT has shortened Reviewed by ELENA Cleveland Lucy Herndon M.D., M.S. ECG ORDERA BLES MUSE NA * CT Abdomen Pelvis without IV Contrast (05/18/2023 6:26 AM MANAGEMENT AIDE) Anatomical Region Laterality Modality Abdomen, Pelvis, Abdominal R ST LOS, Abdominal ARZ LOS, Abdominal FLA LOS N/A Computed Tomograp hy, Computed Tomography Impressions 05/18/2023 12:39 PM MANAGEMENT AIDE Nonspecific perinephric stranding about the left kidney in the setting of previously seen complex cyst. Differential possibilities include rupture of the cyst, superinfection of the cyst or possibly pyelonephritis. Recommend follow-up CT abdomen pelvis with IV contrast or ultrasound in further evaluation if clinically indicated. Narrative 05/18/2023 12:39 PM MANAGEMENT AIDE EXAM: ??CT ABDOMEN PELVIS WITHOUT IV CONTRAST COMPARISON: ??02/05/2023 CT abdomen pelvis. FINDINGS: Slightly increased stranding about the left kidney since 02/05/2023. Evaluation limited secondary to lack of IV contrast. No etiology for the perinephric stranding seen. Punctate calcification in the mid left kidney, possibly related to cystic mass versus nonobstructing calculus. Anterior left kidney complex cystic mass, better seen on priors. Trace cholelithiasis. Colonic diverticulosis. Unremarkable urinary bladder. No pneumoperitoneum. Unremarkable noncontrast appearance of the remaining solid organs. The osseous structures are unremarkable. The visualized lung bases are clear. Procedure Note Allen Eisenberg M.D. - 05/18/2023 EXAM: CT ABDOMEN PELVIS WITHOUT IV CONTRAST COMPARISON: 02/05/2023 CT abdomen pelvis. FINDINGS: Slightly increased stranding about the left kidney since 02/05/2023.Evaluation limited secondary to lack of IV contrast. No etiology for theperinephric stranding seen. Punctate calcification in the mid left kidney,possibly related to cystic mass versus nonobstructing calculus. Anterior left kidney complex cystic mass,better seen on priors. Trace cholelithiasis. Colonic diverticulosis. Unremarkable urinarybladder. No pneumoperitoneum. Unremarkable noncontrast appearance of theremaining solid organs. The osseous structures are unremarkable. The visualized lung bases are clear. IMPRESSION: Nonspecific perinephric stranding about the left kidney in the setting ofpreviously seen complex cyst. Differential possibilities include ruptureof the cyst, superinfection of the cyst or possibly pyelonephritis.Recommend follow-up CT abdomen pelvis with IV contrast or ultrasound in further evaluation ifclinically indicated. Lucy Herndon M.D., M.S. IMG CT PRO CEDURES * Lactate, B (05/18/2023 6:14 AM MANAGEMENT AIDE) Pathologist [facility] Lactate, B 0.7 0.5 - 2.2 mmol/L 05/18/2023 6:22 AM MANAGEMENT AIDE STMA Blood (Blood, Venous) 05/18/2023 6:14 AM MANAGEMENT AIDE 05/18/2023 6:18 AM MANAGEMENT AIDE Lucy Herndon M.D., M.S. LAB BLOOD NON ADD-ON [facility] [address] [place] [address], [facility] 200 [place] [address] * Hepatic Function Panel (05/18/2023 6:14 AM MANAGEMENT AIDE) Pathologist [facility] Bilirubin, Total, S 0.4 0.0 - 1.2 mg/dL 05/18/2023 6:59 AM MANAGEMENT AIDE DTL Bilirubin, Direct, S <0.2 0.0 - 0.3 mg/dL 05/18/2023 6:59 AM MANAGEMENT AIDE DTL Aspartate Aminotransferase (AST), S 16 8 - 48 U/L 05/18/2023 6:59 AM MANAGEMENT AIDE DTL Alanine Aminotransferase (ALT), S 11 7 - 55 U/L 05/18/2023 6:59 AM MANAGEMENT AIDE DTL Alkaline Phosphatase, S 72 40 - 129 U/L 05/18/2023 6:59 AM MANAGEMENT AIDE DTL Albumin, S 4.6 3.5 - 5.0 g/dL 05/18/2023 6:59 AM MANAGEMENT AIDE DTL Protein, Total, S 7.1 6.3 - 7.9 g/dL 05/18/2023 6:59 AM MANAGEMENT AIDE DTL Blood (Blood, Venous) 05/18/2023 6:14 AM MANAGEMENT AIDE 05/18/2023 6:39 AM MANAGEMENT AIDE Lucy Herndon M.D., M.S. LAB BLOOD ADD-ON [facility] [address] [place] [address], [facility] DTL [facility] [address] [place] [address] * (ABNORMAL) CBC with Differential, Blood (05/18/2023 6:14 AM MANAGEMENT AIDE) Hemoglobin 10.9(L) 13.2 - 16.6 g/dL 05/18/2023 6:20 AM MANAGEMENT AIDE STMA Hematocrit 34.6(L) 38.3 - 48.6 % 05/18/2023 6:20 AM MANAGEMENT AIDE STMA Erythrocytes 3.99(L) 4.35 - 5.65 x10(12)/L 05/18/2023 6:20 AM MANAGEMENT AIDE STMA MCV 86.7 78.2 - 97.9 fL 05/18/2023 6:20 AM MANAGEMENT AIDE STMA RBC Distrib Width 15.4(H) 11.8 - 14.5 % 05/18/2023 6:20 AM MANAGEMENT AIDE STMA Platelet Count 313 135 - 317 x10(9)/L 05/18/2023 6:20 AM MANAGEMENT AIDE STMA Leukocytes 6.8 3.4 - 9.6 x10(9)/L 05/18/2023 6:20 AM MANAGEMENT AIDE STMA Neutrophils 3.78 1.56 - 6.45 x10(9)/L 05/18/2023 6:20 AM MANAGEMENT AIDE DHPM Lymphocytes 1.48 0.95 - 3.07 x10(9)/L 05/18/2023 6:20 AM MANAGEMENT AIDE STMA Monocytes 0.74 0.26 - 0.81 x10(9)/L 05/18/2023 6:20 AM MANAGEMENT AIDE STMA Eosinophils 0.70(H) 0.03 - 0.48 x10(9)/L 05/18/2023 6:20 AM MANAGEMENT AIDE STMA Basophils 0.08 0.01 - 0.08 x10(9)/L 05/18/2023 6:20 AM MANAGEMENT AIDE STMA Blood (Blood, Venous) 05/18/2023 6:14 AM MANAGEMENT AIDE 05/18/2023 6:18 AM MANAGEMENT AIDE Lucy Herndon M.D., M.S. LAB BLOOD ADD-ON Performing Organization Address [facility] Co de Phone Number [facility] [address] STMA [facility] 200 [place] [address] DHPM [facility] [address] [place] [address] * (ABNORMAL) Lipase (05/18/2023 6:14 AM MANAGEMENT AIDE) Lipase, S 110(H) 13 - 60 U/L 05/18/2023 6:59 AM MANAGEMENT AIDE DTL Blood (Blood, Venous) 05/18/2023 6:14 AM MANAGEMENT AIDE 05/18/2023 6:39 AM MANAGEMENT AIDE Lucy Herndon M.D., M.S. LAB BLOOD ADD-ON Performing Organization Address [facility] Co de Phone Number [facility] [address] [place], [place] [address] DTL [facility] 200 [place] [address] * (ABNORMAL) Basic Metabolic Panel (05/18/2023 6:14 AM MANAGEMENT AIDE) Potassium, P 6.0(CH) 3.6 - 5.2 mmol/L 05/18/2023 7:00 AM MANAGEMENT AIDE STMA Sodium, P 140 135 - 145 mmol/L 05/18/2023 6:59 AM MANAGEMENT AIDE STMA Chloride, P 98 98 - 107 mmol/L 05/18/2023 7:00 AM MANAGEMENT AIDE STMA Bicarbonate, P 26 22 - 29 mmol/L 05/18/2023 7:00 AM MANAGEMENT AIDE STMA Anion Gap, P 16(H) 7 - 15 05/18/2023 7:00 AM MANAGEMENT AIDE STMA BUN (Blood Urea Nitrogen), P 57(H) 8 - 24 mg/dL 05/18/2023 6:35 AM MANAGEMENT AIDE STMA Creatinine 12.93(H) 0.74 - 1.35 mg/dL 05/18/2023 6:35 AM MANAGEMENT AIDE STMA Estimated GFR (eGFR) <15(L) >=60 mL/min/BSA 05/18/2023 6:35 AM MANAGEMENT AIDE STMA Comment: Estimated GFR calculated using the 2020 CKD_EPI creatinine equation. Calcium, Total, P 9.5 8.6 - 10.0 mg/dL 05/18/2023 6:35 AM MANAGEMENT AIDE STMA Glucose, P 105 70 - 140 mg/dL 05/18/2023 6:35 AM MANAGEMENT AIDE STMA Blood (Blood, Venous) 05/18/2023 6:14 AM MANAGEMENT AIDE 05/18/2023 6:18 AM MANAGEMENT AIDE Lucy Herndon M.D., M.S. LAB BLOOD ADD-ON [facility] [address] [place] [address], [facility] [address] [place] [address] from Last 3 Months Advance Directives For more information, please contact: [phone] Latest Code Status on File Code Status [...] Answer Comments Full Code: Discussed Care Teams Grommet Machine Operator Relationship Specialty Start Date End Date Elsewhere, Pcp PCP - General Internal Medicine 02/04/23
--- OUTSIDE RECORDS SUMMARY | 2023-05-20 09:43 | XMS_ITS | Encounter Summary ---
Author Name Unknown Organization [facility] Address [address] [place] [address] Care Team Providers Care Manager Transport Name Role Phone Elsewhere, Pcp Primary Care Provider Unavailabl e Encounter Details Date Type Department Care Team (Late st Contact Info) Description 05/14/2023 Orders Only Division of Nephrology and Hypertension, [facility], in [place], [place] [address] [place] [phone] Drew Mo, HARD TILE SETTER, C.N.P., M.S.N. [address] [place] [phone] Social History Tobacco Use Types Packs/Day Years [...] your living situation today? I have a [facility] place to live 11/14/2022 Sex and Gender Information Value Date Recorded Sex Assigned at Male 11/14/2022 11:03 AM CDT Gender Identity Male 11/14/2022 11:03 AM CDT Sexual Orientation Straight 11/14/2022 11 :03 AM CDT documented as of this encounter Plan of Treatment Not on file documented as of this encounter Visit Diagnoses Not on filedocumented in this encounter Care Teams Manager Transport Relationship Specialty Start Date End Date Elsewhere, Pcp PCP - General Internal Medicine 02/04/23 documented as of this encounter
--- OUTSIDE RECORDS SUMMARY | 2023-05-20 09:43 | XMS_ITS | Encounter Summary ---
Author Name Unknown Organization [facility] Address [address] [place] [address] Care Team Providers Care Electro Optical Engineer Name Role Phone Elsewhere, Pcp Primary Care Provider Unavailabl e Encounter Details Date Type Department Care Team (Latest Contact Info) Description 05/16/2023 Clinical Communication [facility] [place], [place] [address] [place] [address] Roseline Humphrey R.N. [address] [place] [address] Social History Tobacco Use Types Packs/Day Years [...] your living situation today? I have a [facility] place to live 11/14/2022 Sex and Gender Information Value Date Recorded Sex Assigned at Male 11/14/2022 11:03 AM CDT Gender Identity Male 11/14/2022 11:03 AM CDT Sexual Orientation Straight 11/14/2022 11 :03 AM CDT documented as of this encounter Plan of Treatment Not on file documented as of this encounter Visit Diagnoses Not on filedocumented in this encounter Care Teams Electro Optical Engineer Relationship Specialty Start Date End Date Elsewhere, Pcp PCP - General Internal Medicine 02/04/23 documented as of this encounter
--- OUTSIDE RECORDS SUMMARY | 2023-05-20 09:43 | XMS_ITS ---
Author Name Unknown Organization [facility] Address [address] [place] [address] Care Team Providers Care Nuclear Equipment Test Engineer Name Role Phone Elsewhere, Pcp Primary Care Provider Unavailabl e Dialysis Plan of Treatment Dialysis Prescription As-Of Date Prescribed Dry Weight Primary Se tting 05/18/2023 Acute Dialysis S CA Instructions Modality Prescribed Duration (hours) Frequency Blood Flow Rate Conventional Hemodialysis 1:00 45 0 mL/min Dialysis Access Type Location Dialysate Sodium Level Potassium Level Calcium Level Bicarbonate Level 140 mEq/L 2 mEq/L 2.25 mEq/L 35 mEq/L from Last 30 Days Procedures Procedure Name Priority Date/Time Associated Diagnosis Comments MICROSCOPIC MANUAL STAT 05/18/2023 8: 46 AM WIRE DRAWER DIPSTICK, U STAT 05/18/2023 8:46 AM WIRE DRAWER PH, U STAT 05/18/2023 8:46 AM WIRE DRAWER OSMOLALITY, U STAT 05/18/2023 8:46 AM WIRE DRAWER URINALYSIS WITH MICROSCOPIC STAT 05/18/2023 8:46 AM WIRE DRAWER BACTERIAL CULTURE, AEROBIC + SUSC, URINE STAT 05/18/2023 8:46 AM WIRE DRAWER HEMODIALYSIS Routine 05/18/2023 8:13 AM WIRE DRAWER ECG STAT 05/18/2023 7:[address] ABDOMEN PELVIS WITHOUT IV CONTRAST RAD - Semiurgent (Fast; most ED patients; some inpatients) 05/18/2023 6:26 AM WIRE DRAWER LIPASE, S/P STAT 05/18/2023 6:14 AM WIRE DRAWER LACTATE, B STAT 05/18/2023 6:14 AM WIRE DRAWER HEPATIC FUNCTION PANEL, S STAT 05/18/2023 6:14 AM WIRE DRAWER BASIC METABOLIC PANEL, S/P STAT 05/18/2023 6:14 AM WIRE DRAWER CBC WITH DIFFERENTIAL, B STAT 05/18/2023 6:14 AM WIRE DRAWER from Last 3 Months Allergies Active Allergy [...] your living situation today? I have a [facility] place to live 11/14/2022 Sex and Gender Information Value Date Recorded Sex Assigned at Male 11/14/2022 11:03 AM CDT Gender Identity Male 11/14/2022 11:03 AM CDT Sexual Orientation Straight 11/14/2022 11 :03 AM CDT Last Filed Vital Signs Vital Sign Reading Time Taken Comments Blood Pressure 160/89 05/18/2023 4:45 PM WIRE DRAWER Pulse 78 05/18/2023 3:00 PM WIRE DRAWER Temperature 36.5 ??C (97.7 ??F) 05/18/2023 2:47 PM CS T Respiratory Rate 20 05/18/2023 6:27 PM WIRE DRAWER Oxygen Saturation 98% 05/18/2023 3:00 PM WIRE DRAWER Inhaled Oxygen Concentration - - Weight 62 kg (136 lb 11 oz) 11/21/2022 12:56 PM CDT Height 165.1 cm (5' 5) 05/18/2023 5:18 AM WIRE DRAWER Body Mass Index 22.45 11/21/2022 12:56 PM CDT Results * (ABNORMAL) Dipstick, Urine (05/18/2023 8:46 AM WIRE DRAWER) Hemoglobin, QL, U Trace(A) Negative 05/18/2023 10:08 AM WIRE DRAWER DTL Leukocyte Esterase, U Trace(A) Negative 05/18/2023 10:08 AM WIRE DRAWER DTL Nitrite, U Negative Negative 05/18/2023 10:08 AM WIRE DRAWER DTL Ketone, U Negative Negative mg/dL 05/18/2023 10:08 AM WIRE DRAWER DTL Glucose, U Negative Negative mg/dL 05/18/2023 10:08 AM WIRE DRAWER DTL Urine 05/18/2023 8:46 AM WIRE DRAWER 05/18/2023 9:49 AM WIRE DRAWER Lucy Herndon M.D., M.S. LAB URINE ORDERABLES [facility] [address] [place] [address], [facility] [address] [place] [address] * Microscopic Manual (05/18/2023 8:46 AM WIRE DRAWER) Microscopy Normal 05/18/2023 10:37 AM WIRE DRAWER DTL RBC <3 <3 /hpf 05/18/2023 10:37 AM WIRE DRAWER DTL WBC 1-3 /hpf 05/18/2023 10:37 AM WIRE DRAWER DTL Comment: ----REFERENCE VALUE---- <4 ??(Males) <11 (Females) Squamous Epithelial Cells, U 1-3 /hpf 05/18/2023 10:37 AM WIRE DRAWER DTL Urine 05/18/2023 8:46 AM WIRE DRAWER 05/18/2023 10:08 AM WIRE DRAWER Lucy Herndon M.D., M.S. LAB URINE ORDERABLES Performing Organization Address [facility] Co de Phone Number [facility] [address] [place] [address], [facility] [address] [place] [address] * Bacterial Culture, Aerobic + Susceptibility, Urine (05/18/2023 8:46 AM WIRE DRAWER) Urine Culture No growth after 1 day of incubation. 05/19/2023 12:33 PM WIRE DRAWER DT Urine (Urine, Midstream) 05/18/2023 8:46 AM WIRE DRAWER 05/18/2023 2:26 PM WIRE DRAWER Comment:Specimen Source Site : Urine Lucy Herndon M.D., M.S. LAB MICROB IOLOGY - GENERAL ORDERABLES Performing Organization Address [facility] Co de Phone Number [facility] [address] [place], [place] [id number] [place] [address] [address] [place] [address] * pH, Urine (05/18/2023 8:46 AM WIRE DRAWER) pH, U 7.8 4.5 - 8.0 05/18/2023 10: 14 AM WIRE DRAWER DT Urine 05/18/2023 8:46 AM WIRE DRAWER 05/18/2023 9:49 AM WIRE DRAWER Lucy Herndon M.D., M.S. LAB URINE ORDERABLES Performing Organization Address [facility] Co de Phone Number [facility] [address] [place] [address] * Osmolality, Urine (05/18/2023 8:46 AM WIRE DRAWER) Osmolality, U 305 150 - 1150 mOsm/kg 05/18/2023 10:14 AM WIRE DRAWER DTL Urine 05/18/2023 8:46 AM WIRE DRAWER 05/18/2023 9:49 AM WIRE DRAWER Lucy Herndon M.D., M.S. LAB URINE ORDERABLES Performing Organization Address [facility] de Phone Number [facility] [address] [place] [address], [facility] [address] [place] [address] * (ABNORMAL) Urinalysis with Microscopic: Urine, Midstream (05/18/2023 8:46 AM WIRE DRAWER) Source Urine, Urine, Midstream 05/18/2023 9:49 AM WIRE DRAWER DTL Color, U Yellow 05/18/2023 9:49 AM WIRE DRAWER DTL Clarity, U Clear 05/18/2023 9:49 AM WIRE DRAWER DTL Protein, U 191(H) <26 mg/dL 05/18/2023 10:38 AM WIRE DRAWER DTL Protein/Osmol ality 6.26(H) <0.42 ratio 05/18/2023 10:38 AM WIRE DRAWER DTL Predicted 24 HR Protein, U 5410(H) <229 mg/24 h 05/18/2023 10:38 AM WIRE DRAWER DTL Predicted Range [id number] mg/24 h 05/18/2023 10:38 AM WIRE DRAWER DTL Urine (Urine, Midstream) 05/18/2023 8:46 AM WIRE DRAWER 05/18/2023 9:49 AM WIRE DRAWER Lucy Herndon M.D., M.S. LAB URINE ORDERABLES Performing Organization Address [facility] Co de Phone Number [facility] [address] [place] [address], [facility] DTL [facility] [address] [place] [address] * ECG 12 Lead (05/18/2023 7:16 AM WIRE DRAWER) Ventricular Rate ECG/Min 87 BPM MUSE [place] Interval 146 ms MUSE QRSD Interval 104 ms MUSE QT Interval 390 ms MUSE QTC Interval 469 ms MUSE P [place] 63 degrees MUSE R [place] 86 degrees MUSE T Wave [place] 53 degrees MUSE 05/18/2023 7:16 AM WIRE DRAWER 05/18/2023 7:24 AM WIRE DRAWER Impressions MUSE - 05/18/2023 7:24 AM WIRE DRAWER Normal sinus rhythm Minimal voltage criteria for [...] [place] Lucy Herndon M.D., M.S. ECG ORDERA [facility] Organization Address City/State/ZIP Co de Phone Number MUSE NA * CT Abdomen Pelvis without IV Contrast (05/18/2023 6:26 AM WIRE DRAWER) Anatomical Region Laterality Modality Abdomen, Pelvis, Abdominal R ST LOS, Abdominal ARZ LOS, Abdominal FLA LOS N/A Computed Tomograp hy, Computed Tomography Impressions 05/18/2023 12:39 PM WIRE DRAWER Nonspecific perinephric stranding about the left kidney in the setting of previously seen complex cyst. Differential possibilities include rupture of the cyst, superinfection of the cyst or possibly pyelonephritis. Recommend follow-up CT abdomen pelvis with IV contrast or ultrasound in further evaluation if clinically indicated. Narrative 05/18/2023 12:39 PM WIRE DRAWER EXAM: ??CT ABDOMEN PELVIS WITHOUT IV CONTRAST [...] evaluation ifclinically indicated. Lucy Herndon M.D., M.S. [facility] CT PRO CEDURES * Lactate, B (05/18/2023 6:14 AM WIRE DRAWER) Lactate, B 0.7 0.5 - 2.2 mmol/L 05/18/2023 6:22 AM [facility] Blood (Blood, Venous) 05/18/2023 6:14 AM WIRE DRAWER 05/18/2023 6:18 AM WIRE DRAWER Lucy Herndon M.D., M.S. LAB BLOOD NON ADD-ON [facility] [address] [place] [address], [facility] [address] [place] [address] * Hepatic Function Panel (05/18/2023 6:14 AM WIRE DRAWER) Pathologist [facility] Bilirubin, Total, S 0.4 0.0 - 1.2 mg/dL 05/18/2023 6:59 AM WIRE DRAWER DTL Bilirubin, Direct, S <0.2 0.0 - 0.3 mg/dL 05/18/2023 6:59 AM WIRE DRAWER DTL Aspartate Aminotransferase (AST), S 16 8 - 48 U/L 05/18/2023 6:59 AM WIRE DRAWER DTL Alanine Aminotransferase (ALT), S 11 7 - 55 U/L 05/18/2023 6:59 AM WIRE DRAWER DTL Alkaline Phosphatase, S 72 40 - 129 U/L 05/18/2023 6:59 AM WIRE DRAWER DTL Albumin, S 4.6 3.5 - 5.0 g/dL 05/18/2023 6:59 AM WIRE DRAWER DTL Protein, Total, S 7.1 6.3 - 7.9 g/dL 05/18/2023 6:59 AM WIRE DRAWER DTL Blood (Blood, Venous) 05/18/2023 6:14 AM WIRE DRAWER 05/18/2023 6:39 AM WIRE DRAWER Lucy Herndon M.D., M.S. LAB BLOOD ADD-ON [facility] [address] [address], [facility] [place] [address] [place] [address] * (ABNORMAL) CBC with Differential, Blood (05/18/2023 6:14 AM WIRE DRAWER) Pathologist [facility] Hemoglobin 10.9(L) 13.2 - 16.6 g/dL 05/18/2023 6:20 AM WIRE DRAWER STMA Hematocrit 34.6(L) 38.3 - 48.6 % 05/18/2023 6:20 AM WIRE DRAWER STMA Erythrocytes 3.99(L) 4.35 - 5.65 x10(12)/L 05/18/2023 6:20 AM WIRE DRAWER STMA MCV 86.7 78.2 - 97.9 fL 05/18/2023 6:20 AM WIRE DRAWER STMA RBC Distrib Width 15.4(H) 11.8 - 14.5 % 05/18/2023 6:20 AM WIRE DRAWER STMA Platelet Count 313 135 - 317 x10(9)/L 05/18/2023 6:20 AM WIRE DRAWER STMA Leukocytes 6.8 3.4 - 9.6 x10(9)/L 05/18/2023 6:20 AM WIRE DRAWER STMA Neutrophils 3.78 1.56 - 6.45 x10(9)/L 05/18/2023 6:20 AM WIRE DRAWER [facility] Lymphocytes 1.48 0.95 - 3.07 x10(9)/L 05/18/2023 6:20 AM WIRE DRAWER STMA Monocytes 0.74 0.26 - 0.81 x10(9)/L 05/18/2023 6:20 AM WIRE DRAWER STMA Eosinophils 0.70(H) 0.03 - 0.48 x10(9)/L 05/18/2023 6:20 AM WIRE DRAWER STMA Basophils 0.08 0.01 - 0.08 x10(9)/L 05/18/2023 6:20 AM WIRE DRAWER STMA Blood (Blood, Venous) 05/18/2023 6:14 AM WIRE DRAWER 05/18/2023 6:18 AM WIRE DRAWER Lucy Herndon M.D., M.S. LAB BLOOD ADD-ON [facility] [address] [place] [address], [facility] STMA [facility] [address] [place], [place] [id number] [place] [address] [address] [place] [address] * (ABNORMAL) Lipase (05/18/2023 6:14 AM WIRE DRAWER) Lipase, S 110(H) 13 - 60 U/L 05/18/2023 6:59 AM WIRE DRAWER DTL Blood (Blood, Venous) 05/18/2023 6:14 AM WIRE DRAWER 05/18/2023 6:39 AM WIRE DRAWER Lucy Herndon M.D., M.S. LAB BLOOD ADD-ON [facility] [address] [place] [address], [facility] DTL [facility] [address] [place] [address] * (ABNORMAL) Basic Metabolic Panel (05/18/2023 6:14 AM WIRE DRAWER) Potassium, P 6.0(CH) 3.6 - 5.2 mmol/L 05/18/2023 7:00 AM WIRE DRAWER STMA Sodium, P 140 135 - 145 mmol/L 05/18/2023 6:59 AM WIRE DRAWER STMA Chloride, P 98 98 - 107 mmol/L 05/18/2023 7:00 AM WIRE DRAWER STMA Bicarbonate, P 26 22 - 29 mmol/L 05/18/2023 7:00 AM WIRE DRAWER STMA Anion Gap, P 16(H) 7 - 15 05/18/2023 7:00 AM WIRE DRAWER STMA BUN (Blood Urea Nitrogen), P 57(H) 8 - 24 mg/dL 05/18/2023 6:35 AM WIRE DRAWER STMA Creatinine 12.93(H) 0.74 - 1.35 mg/dL 05/18/2023 6:35 AM WIRE DRAWER STMA Estimated GFR (eGFR) <15(L) >=60 mL/min/BSA 05/18/2023 6:35 AM WIRE DRAWER STMA Comment: Estimated GFR calculated using the 2020 CKD_EPI creatinine equation. Calcium, Total, P 9.5 8.6 - 10.0 mg/dL 05/18/2023 6:35 AM WIRE DRAWER STMA Glucose, P 105 70 - 140 mg/dL 05/18/2023 6:35 AM WIRE DRAWER STMA Blood (Blood, Venous) 05/18/2023 6:14 AM WIRE DRAWER 05/18/2023 6:18 AM WIRE DRAWER Lucy Herndon M.D., M.S. LAB BLOOD ADD-ON [facility] [address] [place] [address], [place] STMA [facility] [address] [place] [address] from Last 3 Months
--- OUTSIDE RECORDS SUMMARY | 2023-05-20 09:43 | XMS_ITS | Encounter Summary ---
Author Name Unknown Organization [facility] Address [address] [place] [address] Care Team Providers Care Chop Saw Operator Name Role Phone Elsewhere, Pcp Primary Care Provider Unavailabl e Reason for Visit * Reason Comments Abdominal Pain Encounter Details Date Type Department Care Team (Late st Contact Info) Description 05/18/2023 5:13 AM SUPPORT TEACHER - 05/18/2023 6:28 PM [facility] Emergency [facility] Emergency Department [address] [place] [phone] Carlos Brown M.D., M.S. [address] [place] [address] [phone] Baljit Rubi M.D., M.H.A. [address] [place] [address] [phone] Johnnie Toro M.D. [address] [place] [address] [phone] Abdominal Pain (Primary Dx); Hyperkalemia; Hypertensive Heart [...] your living situation today? I have a [facility] place to live 11/14/2022 Sex and Gender Information Value Date Recorded Sex Assigned at Male 11/14/2022 11:03 AM CDT Gender Identity Male 11/14/2022 11:03 AM CDT Sexual Orientation Straight 11/14/2022 11 :03 AM CDT documented as of this encounter Last Filed Vital Signs Vital Sign Reading Time Taken Comments Blood Pressure 160/89 05/18/2023 4:45 PM SUPPORT TEACHER Pulse 78 05/18/2023 3:00 PM SUPPORT TEACHER Temperature 36.5 ??C (97.7 ??F) 05/18/2023 2:47 PM CS T Respiratory Rate 05/18/2023 6:27 PM SUPPORT TEACHER Oxygen Saturation 98% 05/18/2023 3:00 PM SUPPORT TEACHER Inhaled Oxygen Concentration - - Weight - - Height 165.1 cm (5' 5) 05/18/2023 5:18 AM SUPPORT TEACHER Body Mass Index - - documented in this encounter Discharge Instructions * Discharge Instructions* Baljit Rubi M.D., M.H.A. - 05/18/2023 8:26 AM SUPPORT TEACHER You received an additional dialysis around today because her potassium was elevated. Please proceedwith dialysis as scheduled tomorrow as this was an abbreviated run. Your abdominal pain resolved while you are in the emergency department. If you again developed significant abdominal pain, vomiting, or other new concerns, please return here. ORT TEACHER * Attachments The following attachments cannot be sent through Care Everywhere. * Abdominal Pain Adult [id number] (Hungarian) * Chronic Kidney Disease: The Importance of Good Nutrition (Hungarian) documented in this encounter Medications at Time of Discharge Medication Sig Dispensed Refills Start Date End Date albuterol 90 mcg/actuation inhaler Inhale 2 puffs every 6 (six) hours as needed for wheezing or shortness of breath (or cough). 8 g 11 02/11/2023 amLODIPine (NORVASC) 10 mg tablet Take 1 tablet (10 mg total) by mouth daily. 90 tablet 3 04/01/2023 03/31/2024 calcium acetate,phosphat bind, (ELIPHOS) 667 mg (169 mg calcium) tablet Take 1,334 mg by mouth 3 (three) times a day with meals. 0 hydrALAZINE (APRESOLINE) 50 mg tablet Take 1 tablet (50 mg total) by mouth every 8 (eight) hours. 270 tablet 3 04/08/2023 04/07/2024 irbesartan (AVAPRO) 300 mg tablet Take 1 tablet (300 mg total) by mouth daily. 90 tablet 3 03/25/2023 03/24/2024 isosorbide mononitrate (IMDUR) 30 mg 24 hr tablet Take 1 tablet (30 mg total) by mouth every evening. 90 tablet 3 04/08/2023 04/07/2024 multivitamin renal failure (DIALYVITE) 100-1 mg tablet Take 1 tablet by mouth daily with dinner. 90 tablet 3 02/24/2023 02/24/2024 nortriptyline (PAMELOR) 10 mg capsule Take 1 capsule (10 mg total) by mouth at bedtime. 30 capsule 0 05/13/2023 06/12/2023 prochlorperazine (COMPAZINE) 5 mg tablet Take 1 tablet (5 mg total) by mouth every 6 (six) hours as needed for nausea or vomiting. 30 tablet 0 03/18/2023 sertraline (ZOLOFT) 50 mg tablet Take 1 tablet (50 mg total) by mouth daily. 90 tablet 3 01/27/2023 01/27/2024 torsemide (DEMADEX) 100 mg tablet Take 1 tablet (100 mg total) by mouth 2 (two) times a day. 180 tablet 3 01/17/2023 01/17/2024 traZODone (DESYREL) 50 mg tablet Take 1 tablet (50 mg total) by mouth at bedtime. 30 tablet 11 04/15/2023 04/14/2024 polyethylene glycol (MIRALAX) 17 gram powder packet Take 1 packet (17 g total) by mouth daily for 5 days. Dissolve each 17 g dose in 240 mLs (8 ounces) of beverage. Hold for diarrhea. 5 packet 0 05/14/2023 05/19/2023 documented as of this encounter Progress Notes * Lucy Burns, L.I.C.S.W., M.S.W. - 05/18/2023 6:28 PM CST SUBJECTIVE Social work was contacted to assist with ambulatory transportation for the patient back to his home. After confirming the patient's address and that he does not require transport oxygen or to pick upmedications from the pharmacy, social work arranged transportation with [employer]. OBJECTIVE Emergency Department Social work was consulted to assist with transportation back to the patient's home in [place], [place]. Social work arranged transportation with [employer]. ASSESSMENT / PLAN ASSESSMENT Transport resources were explored and arranged to assist with the patient's needs. The patient appears to have insight into their needs at this time. PLAN 1. [employer] to provide return transportation to the patient's home in [place], [place]. 2. Please contact social work if further supportive or dismissal needs arise. Cait Monsivais, M.S.W. 05/18/2023 ORT TEACHER documented in this encounter H&P Notes * Baljit Rubi M.D., M.H.A. - 05/18/2023 8:21 AM CST Emergency Department Observation H&P SUBJECTIVE CHIEF COMPLAINT/ REASON FOR VISIT The patient's chief complaint includes: Abdominal Pain And hyperkalemia HISTORY OF PRESENT ILLNESS Mr. Jusitn is a 37 y.o. male who presents with abdominal pain that is now resolved. Workup revealed hyperkalemia in the setting of being dialysis dependent with his last dialysis yesterday. Patientrequires dialysis today prior to dismissal so we can continue with his routine dialysis tomorrow.. Refer to the Emergency Department History & Physical for further documentation in support of observation status. OBJECTIVE VITAL SIGNS Temperature: 36.7 ??C Heart Rate: 85 Resp Rate: 19 Blood Pressure: 145/81 SpO2: 98 % Height: 165.1 cm DIAGNOSTICS I have reviewed laboratory, imaging, and other diagnostic studies. Clinically significant abnormal findings are as noted in the chart and emergency department note. ASSESSMENT / PLAN Salbador will need additional care based on his work up and will be admitted as ED observation. OBSERVATION TREATMENT PLAN: End-stage renal failure requiring dialysis. Patient will be dialyzed with anticipated dismissal afterwards with plan to continue routine dialysis tomorrow at 1:00 p.m. in [place] as he has previously scheduled. Baljit Rubi M.D., M.H.A. 05/18/23 0822 ORT TEACHER documented in this encounter Consult Notes * Rebecca Estes M.D. - 05/18/2023 3:07 PM CST Inpatient Nephrology ICU service consulted for possible hemodialysis for Mr. Justin who is known to our service and has end-stage kidney disease due to hypertension dependent on dialysis on thrice weekly dialysis. He was previously on a TTS schedule, but was recently changed to a MWF schedule, due to start tomorrow at 1:00 pm. He was seen in the ED this morning for abdominal pain of unclear etiology that has now resolved with evaluation only significant for finding of hyperkalemia to 6 mmol/L. We will plan to dialyze for short session today while patient in ED observation to treat hyperkalemia prior to his previously scheduled dialysis session tomorrow. Hemodynamics reviewed and stable. ORT TEACHER documented in this encounter ED Notes * Baljit Rubi M.D., M.H.A. - 05/18/2023 7:43 AM CST Care of patient transferred to [place] by Kevin. This is a 37-year-old gentleman who is dialysis dependent who presented with the abdominal pain that is now resolved. Patient has been getting dialyzed done Friday but is transitioning to a Friday schedule. Was dialyzed yesterday. Workup here was overall reassuringhowever his potassium today is 6.0. He has no acute EKG changes to suggest any cardiotoxicity at this point. His next dialysis is scheduled for 1:00 p.m. tomorrow. He dialyzes at [facility] in [place] but is followed by [place] [facility]. Given his elevated potassium, I am concerned that it may become critically high by tomorrow at the time of his dialysis. I am therefore consulting with our nephrology ICU team to determine if he would benefit from dialysis in our observation unit prior to dismissal. VITAL SIGNS BP 141/83 Pulse 86 Temp 36.7 ??C (Oral) Ht 165.1 cm SpO2 98% BMI 22.75 kg/m?? ED Course as of 05/18/23 08 Sun May 18, 2023 0802 I spoke with the nephrology ICU practice management consultant who agrees that the patient would benefit from dialysis. We will move the patient to [place] [id number] for dialysis with anticipated dismissal afterwards. Final Diagnoses: as of 05/18/23 08 Abdominal Pain Hyperkalemia Hypertensive Heart And Chronic Kidney Disease With Heart Failure And With End Stage Renal Disease (HCC) Failure Renal End Stage (HCC) Baljit Rubi M.D., M.H.A. 05/18/23 0745 ORT TEACHER * Carlos Brown M.D., M.S. - 05/18/2023 6:40 AM CST I have personally seen and examined this patient. I have fully participated in the care of this patient. I have reviewed all clinical information including history, physical exam, orders, and plan. Ana Luisa with the note of the resident. Briefly, this patient is a 37-year-old male with a history of end-stage renal disease on dialysis Friday, , and Friday. He presents with left-sided abdominal pain that wraps around to his back. This has been present for about the past 10 days. He describes being seen in [place], told he had fluid around his stomach, and started on Keflex. The pain has worsened since then. Here, he presents with diffuse abdominal tenderness and some left CVA discomfort. He was given Compazine on arrival per his request, since he takes it at home. He got akathisia and then was given benztropine due to his reported Benadryl Allergy. He is now feeling better. CT suggests left perinephric stranding without evidence of a stone. We will test his urine to look for signs of infection. Final dispo will be based upon his results. Also will create a plan for his elevated potassium, and please see attached documentation for further details. Carlos Brown M.D., M.S. 05/18/23 0736 ORT TEACHER * Lucy Herndon M.D., M.S. - 05/18/2023 5:51 AM CST SUBJECTIVE CHIEF COMPLAINT/REASON FOR VISIT Abdominal Pain HISTORY OF PRESENT ILLNESS 37 y/o M w/ hx of ESRD - T//Fri dialysis, RLS, presenting for evaluation of abdominal pain. He was seen in [place] ED on 05/08. He was told that he had fluid around his stomach on CT and prescribed Keflex. He had the same pain at that time as he does now. He describes the pain as sharp and achyon the left side of his abdomen wrapping around to his back. It is more present than it is absent. He hasn't noticed anything that makes it worse or better. He has tried tylenol and a heating pad with no improvement. This is the same pain as when he was evaluated on 05/08 in the ED but it has worsened. He has had pain like this before but can't remember when or why. He admits to nausea but no vomiting, fever, chills, or diarrhea. No chest pain or urinary changes such as urgency, frequency, or dysuria. Denies any urinary changes. Says he does make urine and urinates 5-6x daily. Last dialysis was yesterday for a full cycle. REVIEW OF SYSTEMS See HPI. OBJECTIVE Initial Vitals [05/18/23 0520] Temperature 36.7 ??C Pulse Rate 92 Heart Rate Resp Blood Pressure (!) 177/108 SpO2 99 % Pain Score 6 PHYSICAL EXAMINATION Constitutional: Nursing note and vitals reviewed. No distress. HENT: Head: Normocephalic and atraumatic. Mouth/Throat: Mucous membranes are moist. Eyes: EOM are normal. Neck: Neck supple. Cardiovascular: Normal rate, regular rhythm and normal heart sounds. Pulses are strong and palpable. Capillary refill: takes 3-5 seconds Pulmonary/Chest: Effort normal and breath sounds normal. There is normal air entry. No tachypnea. No respiratory distress. Abdominal: Soft. Bowel sounds are normal. exhibits distension.There is abdominal tenderness. L CVA tenderness Musculoskeletal: Cervical back: Neck supple. Neurological: Alert. Skin: Skin is warm and dry. He is not diaphoretic. ASSESSMENT/PLAN Assessment and Plan Salbador Justin is a 37 y.o. male who presented with abdominal pain. This was considered in the context of past medical history as noted in the HPI. On initial evaluation patient was found alert and responsive and was noted to be uncomfortable laying in bed. Triage vital signs were reviewed and notable for hypertension. Nursing documentation was reviewed and considered. Initial symptom management: dilaudid, compazine, benztropine Differential diagnosis includes but is not limited to pyelonephritis, nephrolithiasis, pancreatitis, gastritis, colitis, ureterolithiasis, cystitis Work-up: EKG, labs, CT Abdomen w/o contrast. See ED course for results and updates. Pt care transferred to oncoming ED provider pending urine studies and management of the need for dialysis. I discussed this with patient and all questions answered at this time. He is stable and comfortable.. ED Course as of 05/18/23 0727 [place] May 18, 2023 0618 Patient having akathisia post compazine. Benztropine ordered as he reports seizures after IV benadryl previously. 0629 CBC with Differential, Blood(!): Hemoglobin 10.9(!) Hematocrit 34.6(!) Erythrocytes 3.99(!) MCV 86.7 RBC Distrib Width 15.4(!) Platelet Count 313 White Blood Cell Count 6.8 Neutrophils 3.78 Lymphocytes 1.48 Monocytes 0.74 Eosinophils 0.70(!) Basophils 0.08 0629 Lactate: 0.7 0646 Creatinine(!): 12.[address] Abdomen Pelvis without IV Contrast IMPRESSION: Nonspecific perinephric stranding about the left kidney. Recommend CT abdomen pelvis with IV contrast for further evaluation if clinically indicated. 0725 Patient refusing in and out catheter. He says he is able to provide us a midstream sample. Lucy Herndon M.D., M.S. Resident 05/18/23 0735 ORT TEACHER * Sharath Franklin, R.N. - 05/18/2023 5:38 AM CST Pt reports to Center 12 c/o 8/10 abdominal pain and nausea. Pt was recently hospitalized for abdominal fluid collection and is on abx. Pt completes dialysis M/W/F. Denies fever/chills. VSS. Sharath Franklin R.N. 05/18/23 0540 ORT TEACHER documented in this encounter Plan of Treatment Not on file documented as of this encounter Procedures Procedure Name Priority Date/Time Associated Diagnosis Comments DIPSTICK, U STAT 05/18/2023 8:46 AM SUPPORT TEACHER MICROSCOPIC MANUAL STAT 05/18/2023 8: 46 AM SUPPORT TEACHER BACTERIAL CULTURE, AEROBIC + SUSC, URINE STAT 05/18/2023 8:46 AM SUPPORT TEACHER PH, U STAT 05/18/2023 8:46 AM SUPPORT TEACHER OSMOLALITY, U STAT 05/18/2023 8:46 AM SUPPORT TEACHER URINALYSIS WITH MICROSCOPIC STAT 05/18/2023 8:46 AM SUPPORT TEACHER HEMODIALYSIS Routine 05/18/2023 8:13 AM SUPPORT TEACHER ECG STAT 05/18/2023 7:[address] ABDOMEN PELVIS WITHOUT IV CONTRAST RAD - Semiurgent (Fast; most ED patients; some inpatients) 05/18/2023 6:26 AM SUPPORT TEACHER LACTATE, B STAT 05/18/2023 6:14 AM SUPPORT TEACHER HEPATIC FUNCTION PANEL, S STAT 05/18/2023 6:14 AM SUPPORT TEACHER CBC WITH DIFFERENTIAL, B STAT 05/18/2023 6:14 AM SUPPORT TEACHER LIPASE, S/P STAT 05/18/2023 6:14 AM SUPPORT TEACHER BASIC METABOLIC PANEL, S/P STAT 05/18/2023 6:14 AM SUPPORT TEACHER documented in this encounter Results * Microscopic Manual (05/18/2023 8:46 AM SUPPORT TEACHER) Pathologist [facility] Microscopy Normal 05/18/2023 10:37 AM SUPPORT TEACHER DTL RBC <3 <3 /hpf 05/18/2023 10:37 AM SUPPORT TEACHER DTL WBC 1-3 /hpf 05/18/2023 10:37 AM SUPPORT TEACHER DTL Comment: ----REFERENCE VALUE---- <4 ??(Males) <11 (Females) Squamous Epithelial Cells, U 1-3 /hpf 05/18/2023 10:37 AM SUPPORT TEACHER DTL Urine 05/18/2023 8:46 AM SUPPORT TEACHER 05/18/2023 10:08 AM SUPPORT TEACHER Lucy Herndon M.D., M.S. LAB URINE ORDERABLES Performing Organization Address [facility] Co de Phone Number [facility] [address] [place] [address], [facility] DTL [facility] [address] [place] [address] * (ABNORMAL) Dipstick, Urine (05/18/2023 8:46 AM SUPPORT TEACHER) Pathologist [facility] Hemoglobin, QL, U Trace(A) Negative 05/18/2023 10:08 AM SUPPORT TEACHER DTL Leukocyte Esterase, U Trace(A) Negative 05/18/2023 10:08 AM SUPPORT TEACHER DTL Nitrite, U Negative Negative 05/18/2023 10:08 AM SUPPORT TEACHER DTL Ketone, U Negative Negative mg/dL 05/18/2023 10:08 AM SUPPORT TEACHER DTL Glucose, U Negative Negative mg/dL 05/18/2023 10:08 AM SUPPORT TEACHER DTL Urine 05/18/2023 8:46 AM SUPPORT TEACHER 05/18/2023 9:49 AM SUPPORT TEACHER Lucy Herndon M.D., M.S. LAB URINE ORDERABLES Performing Organization Address City/[facility]/ZIP Co de Phone Number [facility] [address] [place] [address], [facility] [address] [place] [address] * pH, Urine (05/18/2023 8:46 AM SUPPORT TEACHER) pH, U 7.8 4.5 - 8.0 05/18/2023 10: 14 AM SUPPORT TEACHER DT Urine 05/18/2023 8:46 AM SUPPORT TEACHER 05/18/2023 9:49 AM SUPPORT TEACHER Lucy Herndon M.D., M.S. LAB URINE ORDERABLES Performing Organization Address City/[facility]/ZIP Co de Phone Number [facility] [address] [place], [place] [id number] [place] [address] [address] [place] [address] * Osmolality, Urine (05/18/2023 8:46 AM SUPPORT TEACHER) Pathologist [facility] Osmolality, U 305 150 - 1150 mOsm/kg 05/18/2023 10:14 AM SUPPORT TEACHER DT Urine 05/18/2023 8:46 AM SUPPORT TEACHER 05/18/2023 9:49 AM SUPPORT TEACHER Lucy Herndon M.D., M.S. LAB URINE ORDERABLES Performing Organization Address City/[facility]/ZIP Co de Phone Number [facility] [address] [place], [place] [id number] [place] [address] 200 [place] [address] * Bacterial Culture, Aerobic + Susceptibility, Urine (05/18/2023 8:46 AM SUPPORT TEACHER) Pathologist [facility] Urine Culture No growth after 1 day of incubation. 05/19/2023 12:33 PM SUPPORT TEACHER DT Urine (Urine, Midstream) 05/18/2023 8:46 AM SUPPORT TEACHER 05/18/2023 2:26 PM SUPPORT TEACHER Comment:Specimen Source Site : Urine Lucy Herndon M.D., M.S. LAB MICROB IOLOGY - GENERAL ORDERABLES Performing Organization Address [facility] Co de Phone Number [facility] [address] [place], [place] [address] [address] [place] [address] * (ABNORMAL) Urinalysis with Microscopic: Urine, Midstream (05/18/2023 8:46 AM SUPPORT TEACHER) Source Urine, Urine, Midstream 05/18/2023 9:49 AM SUPPORT TEACHER DTL Color, U Yellow 05/18/2023 9:49 AM SUPPORT TEACHER DTL Clarity, U Clear 05/18/2023 9:49 AM SUPPORT TEACHER DTL Protein, U 191(H) <26 mg/dL 05/18/2023 10:38 AM SUPPORT TEACHER DTL Protein/Osmol ality 6.26(H) <0.42 ratio 05/18/2023 10:38 AM SUPPORT TEACHER DTL Predicted 24 HR Protein, U 5410(H) <229 mg/24 h 05/18/2023 10:38 AM SUPPORT TEACHER DTL Predicted Range 1717-36924 mg/24 h 05/18/2023 10:38 AM SUPPORT TEACHER DTL Urine (Urine, Midstream) 05/18/2023 8:46 AM SUPPORT TEACHER 05/18/2023 9:49 AM SUPPORT TEACHER Lucy Herndon M.D., M.S. LAB URINE ORDERABLES Performing Organization Address [facility] Co de Phone Number [facility] [address] [place], [place] [address] [address] [place] [address] * ECG 12 Lead (05/18/2023 7:16 AM SUPPORT TEACHER) Ventricular Rate ECG/Min 87 BPM MUSE NJ Interval 146 ms MUSE QRSD Interval 104 ms MUSE QT Interval 390 ms MUSE QTC Interval 469 ms MUSE P [place] 63 degrees MUSE R [place] 86 degrees MUSE T Wave [place] 53 degrees MUSE 05/18/2023 7:16 AM SUPPORT TEACHER 05/18/2023 7:24 AM SUPPORT TEACHER Impressions MUSE - 05/18/2023 7:24 AM SUPPORT TEACHER Normal sinus rhythm Minimal voltage criteria for [...] [place] Lucy Herndon M.D., M.S. ECG ORDERA [facility] MUSE NA * CT Abdomen Pelvis without IV Contrast (05/18/2023 6:26 AM SUPPORT TEACHER) Anatomical Region Laterality Modality Abdomen, Pelvis, Abdominal R ST LOS, Abdominal ARZ LOS, Abdominal FLA LOS N/A Computed Tomograp hy, Computed Tomography Impressions 05/18/2023 12:39 PM SUPPORT TEACHER Nonspecific perinephric stranding about the left kidney in the setting of previously seen complex cyst. Differential possibilities include rupture of the cyst, superinfection of the cyst or possibly pyelonephritis. Recommend follow-up CT abdomen pelvis with IV contrast or ultrasound in further evaluation if clinically indicated. Narrative 05/18/2023 12:39 PM SUPPORT TEACHER EXAM: ??CT ABDOMEN PELVIS WITHOUT IV CONTRAST [...] evaluation ifclinically indicated. Lucy Herndon M.D., M.S. [facility] CT PRO CEDURES * (ABNORMAL) Lipase (05/18/2023 6:14 AM SUPPORT TEACHER) Lipase, S 110(H) 13 - 60 U/L 05/18/2023 6:59 AM SUPPORT TEACHER DTL Blood (Blood, Venous) 05/18/2023 6:14 AM SUPPORT TEACHER 05/18/2023 6:39 AM SUPPORT TEACHER Lucy Herndon M.D., M.S. LAB BLOOD ADD-ON [facility] [address] [place] [address], [facility] [address] [place] [address] * Lactate, B (05/18/2023 6:14 AM SUPPORT TEACHER) Lactate, B 0.7 0.5 - 2.2 mmol/L 05/18/2023 6:22 AM SUPPORT TEACHER STMA Blood (Blood, Venous) 05/18/2023 6:14 AM SUPPORT TEACHER 05/18/2023 6:18 AM SUPPORT TEACHER Lucy Herndon M.D., M.S. LAB BLOOD NON ADD-ON [facility] [address] [place] [address], [facility] STMA [facility] [address] [place] [address] * Hepatic Function Panel (05/18/2023 6:14 AM SUPPORT TEACHER) Bilirubin, Total, S 0.4 0.0 - 1.2 mg/dL 05/18/2023 6:59 AM SUPPORT TEACHER DTL Bilirubin, Direct, S <0.2 0.0 - 0.3 mg/dL 05/18/2023 6:59 AM SUPPORT TEACHER DTL Aspartate Aminotransferase (AST), S 16 8 - 48 U/L 05/18/2023 6:59 AM SUPPORT TEACHER DTL Alanine Aminotransferase (ALT), S 11 7 - 55 U/L 05/18/2023 6:59 AM SUPPORT TEACHER DTL Alkaline Phosphatase, S 72 40 - 129 U/L 05/18/2023 6:59 AM SUPPORT TEACHER DTL Albumin, S 4.6 3.5 - 5.0 g/dL 05/18/2023 6:59 AM SUPPORT TEACHER DTL Protein, Total, S 7.1 6.3 - 7.9 g/dL 05/18/2023 6:59 AM SUPPORT TEACHER DTL Blood (Blood, Venous) 05/18/2023 6:14 AM SUPPORT TEACHER 05/18/2023 6:39 AM SUPPORT TEACHER Lucy Herndon M.D., M.S. LAB BLOOD ADD-ON Performing Organization Address City/[facility]/ZIP Co de Phone Number [facility] [address] [place] [address], [facility] DTL [facility] [address] [place] [address] * (ABNORMAL) Basic Metabolic Panel (05/18/2023 6:14 AM SUPPORT TEACHER) Potassium, P 6.0(CH) 3.6 - 5.2 mmol/L 05/18/2023 7:00 AM SUPPORT TEACHER STMA Sodium, P 140 135 - 145 mmol/L 05/18/2023 6:59 AM SUPPORT TEACHER STMA Chloride, P 98 98 - 107 mmol/L 05/18/2023 7:00 AM SUPPORT TEACHER STMA Bicarbonate, P 26 22 - 29 mmol/L 05/18/2023 7:00 AM SUPPORT TEACHER STMA Anion Gap, P 16(H) 7 - 15 05/18/2023 7:00 AM SUPPORT TEACHER STMA BUN (Blood Urea Nitrogen), P 57(H) 8 - 24 mg/dL 05/18/2023 6:35 AM SUPPORT TEACHER STMA Creatinine 12.93(H) 0.74 - 1.35 mg/dL 05/18/2023 6:35 AM SUPPORT TEACHER STMA Estimated GFR (eGFR) <15(L) >=60 mL/min/BSA 05/18/2023 6:35 AM SUPPORT TEACHER STMA Comment: Estimated GFR calculated using the 2020 CKD_EPI creatinine equation. Calcium, Total, P 9.5 8.6 - 10.0 mg/dL 05/18/2023 6:35 AM SUPPORT TEACHER STMA Glucose, P 105 70 - 140 mg/dL 05/18/2023 6:35 AM SUPPORT TEACHER STMA Blood (Blood, Venous) 05/18/2023 6:14 AM SUPPORT TEACHER 05/18/2023 6:18 AM SUPPORT TEACHER Lucy Herndon M.D., M.S. LAB BLOOD ADD-ON [facility] [address] [place] [address], [facility] [address] [place] [address] * (ABNORMAL) CBC with Differential, Blood (05/18/2023 6:14 AM SUPPORT TEACHER) Hemoglobin 10.9(L) 13.2 - 16.6 g/dL 05/18/2023 6:20 AM SUPPORT TEACHER STMA Hematocrit 34.6(L) 38.3 - 48.6 % 05/18/2023 6:20 AM SUPPORT TEACHER STMA Erythrocytes 3.99(L) 4.35 - 5.65 x10(12)/L 05/18/2023 6:20 AM SUPPORT TEACHER STMA MCV 86.7 78.2 - 97.9 fL 05/18/2023 6:20 AM SUPPORT TEACHER STMA RBC Distrib Width 15.4(H) 11.8 - 14.5 % 05/18/2023 6:20 AM SUPPORT TEACHER STMA Platelet Count 313 135 - 317 x10(9)/L 05/18/2023 6:20 AM SUPPORT TEACHER STMA Leukocytes 6.8 3.4 - 9.6 x10(9)/L 05/18/2023 6:20 AM SUPPORT TEACHER STMA Neutrophils 3.78 1.56 - 6.45 x10(9)/L 05/18/2023 6:20 AM SUPPORT TEACHER DHPM Lymphocytes 1.48 0.95 - 3.07 x10(9)/L 05/18/2023 6:20 AM SUPPORT TEACHER STMA Monocytes 0.74 0.26 - 0.81 x10(9)/L 05/18/2023 6:20 AM SUPPORT TEACHER STMA Eosinophils 0.70(H) 0.03 - 0.48 x10(9)/L 05/18/2023 6:20 AM SUPPORT TEACHER STMA Basophils 0.08 0.01 - 0.08 x10(9)/L 05/18/2023 6:20 AM SUPPORT TEACHER STMA Blood (Blood, Venous) 05/18/2023 6:14 AM SUPPORT TEACHER 05/18/2023 6:18 AM SUPPORT TEACHER Lucy Herndon M.D., M.S. 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) documented in this encounter Administered Medications Inactive Administered Medications - up to 3 most recent administrations Medication Order MAR Action Action Date Dose Rate Site benztropine tablet 1 mg (COGENTIN) 1 mg, oral, Once, On 05/18/23 at 0620, For 1 dose Given 05/18/2023 6:26 AM SUPPORT TEACHER 1 mg HYDROmorphone (PF) injection 0.5 mg (DILAUDID) 0.5 mg, intravenous, Every 1 hour PRN, severe pain or score 7-10 of 10, Starting on 05/18/23 at 0558, For 3 doses Given 05/18/2023 6:04 AM SUPPORT TEACHER 0.5 mg prochlorperazine injection 10 mg (COMPAZINE) 10 mg, intravenous, Once, On 05/18/23 at 0601, For 1 dose Given 05/18/2023 6:03 AM SUPPORT TEACHER 10 mg sodium chloride 0.9 % flush 1-250 mL 1-250 mL, intravenous, As needed, line care, For priming and rinse back post dialysis, Starting on 05/18/23 at 1328, Dialysis, Dialysis order only. Given 05/18/2023 1:47 PM SUPPORT TEACHER 250 mL sodium chloride 0.9 % injection 10-60 mL 10-60 mL, intravenous, As needed, line care, To maintain line patency, Starting on 05/18/23 at 1328, Dialysis Given 05/18/2023 1:49 PM SUPPORT TEACHER 10 mL Given 05/18/2023 1:48 PM SUPPORT TEACHER 10 mL documented in this encounter Active and Recently Administered Medications Times are shown in SUPPORT TEACHER. Scheduled Medication Order 05/16/2023 05/17/2023 05/18/2023 benztropine tablet 1 mg (COGENTIN) (COMPLETED) 1 mg, oral, Once, On 05/18/23 at 0620, For 1 dose 0626 (Given - Provid er: Connie Bledsoe RJuan CN.) prochlorperazine injection 10 mg (COMPAZINE) (COMPLETED) 10 mg, intravenous, Once, On 05/18/23 at 0601, For 1 dose 0603 (Given - Provid er: Sharath Franklin RGilberto.) PRN Medication Order 05/16/2023 05/17/2023 05/18/2023 HYDROmorphone (PF) injection 0.5 mg (DILAUDID) 0.5 mg, intravenous, Every 1 hour PRN, severe pain or score 7-10 of 10, Starting on 05/18/23 at 0558, For 3 doses 0604 (Given - Provid er: Sharath Franklin R.N.) sodium chloride 0.9 % flush 1-250 mL (CANCELED) 1-250 mL, intravenous, As needed, line care, For priming and rinse back post dialysis, Starting on 05/18/23 at 1328, Dialysis, Dialysis order only. 1347 (Given - Provid er: Emilie Hrenandes R.N.) sodium chloride 0.9 % injection 10-60 mL (CANCELED) 10-60 mL, intravenous, As needed, line care, To maintain line patency, Starting on 05/18/23 at 1328, Dialysis 1348 (Given - Provid er: Brook Barnett.N.)1349 (Given - Provider: Emilie Hernandes R.N.) documented in this encounter Care Teams Chop Saw Operator Relationship Specialty Start Date End Date Elsewhere, Pcp PCP - General Internal Medicine 02/04/23 documented as of this encounter
--- OUTSIDE RECORDS SUMMARY | 2023-05-20 09:43 | XMS_ITS ---
Author Name Unknown Organization [facility] Address [address] [place] [address] Care Team Providers Care Synthetic Staple Extruder Name Role Phone Unavailable Unavailable Unavailable Surgery Details Not on file Complications Check Surgery Details section. Procedure Estimated Blood Loss Check Surgery Details section. Procedure Findings Check Surgery Details section. Procedure Specimens Taken Check Surgery Details section.
--- OUTSIDE RECORDS SUMMARY | 2023-05-20 09:43 | XMS_ITS | Encounter Summary ---
Author Name Unknown Organization [facility] Address [address] [place] [address] Care Team Providers Care Shank Inspector Name Role Phone Elsewhere, Pcp Primary Care Provider Unavailabl e Encounter Details Date Type Department Care Team (Late st Contact Info) Description 04/15/2023 Orders Only Division of Nephrology and Hypertension in [place], [place] [address] [place] [phone] Concetta Mjeía M.D., Ph.D. [address] [place] [address] Social History Tobacco Use Types Packs/Day Years [...] your living situation today? [facility] [employer] [facility] to [facility] 11/14/2022 Sex and Gender Information Value Date Recorded Sex Assigned at Male 11/14/2022 11:03 AM CDT Gender Identity Male 11/14/2022 11:03 AM CDT Sexual Orientation Straight 11/14/2022 11 :03 AM CDT documented as of this encounter Plan of Treatment Not on file documented as of this encounter Visit Diagnoses Not on filedocumented in this encounter Care Teams Shank Inspector Relationship Specialty Start Date End Date Elsewhere, Pcp PCP - General Internal Medicine 02/04/23 documented as of this encounter
--- OUTSIDE RECORDS SUMMARY | 2023-05-20 09:43 | XMS_ITS | Referral Summary ---
Author Name Unknown Organization [facility] Address [address] [place] [address] Care Team Providers Care Cardiac Rehabilitation Program Director Name Role Phone Elsewhere, Pcp Primary Care Provider Unavailabl e Source Comments Patient records contain information from all sites at [facility]. For routine questions regarding patient records, call [phone] during business hours, M-F 8:00 AM - 5:00 PM Central Time. Record requests for emergency care only can be directed to [phone] at any time.[facility] Encounters Date Type Department Care Team Description 05/18/2023 5:13 AM INSOLE REINFORCER - 05/18/2023 6:28 PM INSOLE REINFORCER Emergency [facility] Emergency Department [address] [place] [address] Carlos Brown M.D., M.S. Baljit Rubi M.D., M.H.A. Johnnie Toro M.D. 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 05/14/2023 Clinical Communication Maco ferreira [facility] for Transplantation and Clinical Regeneration in [place], [place] [address] [place] [address] Roseline Humphrey, R.N. Phone Contact 05/14/2023 Orders Only Division of Nephrology and Hypertension, [facility], in [place], [place] [address] [place] [address] Drew Mo APRN C.N.P., M.S.N. 05/13/2023 Orders Only Division of Nephrology and Hypertension, [facility], in [place], [place] [address] [place] [address] Drew Mo APRN C.N.P., M.S.N. 04/15/2023 Orders Only Division of Nephrology and Hypertension in [place], [place] [address] [place] [address] Concetta eMjía M.D., Ph.D. 04/08/2023 Orders Only Division of Nephrology and Hypertension, [facility], in [place], [place] [address] [place] [address] Drew Mo APRN C.N.P., M.S.N. 04/02/2023 Orders Only Pharmacy Prior [facility] RO [phone] Marko Hager 04/01/2023 Orders Only Division of Nephrology and Hypertension, [facility], in [place], [place] [address] [place] [address] Drew Mo APRN, C.N.P., M.S.N. 03/25/2023 Orders Only Division of Nephrology and Hypertension in [place], [place] [address] [place] [address] Garth Burdick Jr., D.O. 03/18/2023 Orders Only Division of Nephrology and Hypertension, [facility], in [place], [place] [address] [place] [address] Drew Mo APRN, C.N.P., M.S.N. 03/04/2023 Orders Only Division of Nephrology and Hypertension, [facility], in [place], [place] [address] [place] [address] Drew Mo APRN C.N.P., M.S.N. 02/24/2023 Orders Only Division of Nephrology and Hypertension, [facility], in [place], [place] [address] [place] [address] Drew Mo APRN, C.N.P., M.S.N. 02/19/2023 Orders Only Division of Nephrology and Hypertension, [facility], in [place], [place] [address] [place] [address] Drew Mo APRN, C.N.P., M.S.N. from Last 3 Months Allergies Active Allergy [...] your living situation today? I have a [facility] place to live 11/14/2022 Sex and Gender Information Value Date Recorded Sex Assigned at Male 11/14/2022 11:03 AM CDT Gender Identity Male 11/14/2022 11:03 AM CDT Sexual Orientation Straight 11/14/2022 11 :03 AM CDT Last Filed Vital Signs Vital Sign Reading Time Taken Comments Blood Pressure 160/89 05/18/2023 4:45 PM INSOLE REINFORCER Pulse 78 05/18/2023 3:00 PM INSOLE REINFORCER Temperature 36.5 ??C (97.7 ??F) 05/18/2023 2:47 PM CS T Respiratory Rate 20 05/18/2023 6:27 PM INSOLE REINFORCER Oxygen Saturation 98% 05/18/2023 3:00 PM INSOLE REINFORCER Inhaled Oxygen Concentration - - Weight 62 kg (136 lb 11 oz) 11/21/2022 12:56 PM CDT Height 165.1 cm (5' 5) 05/18/2023 5:18 AM INSOLE REINFORCER Body Mass Index 22.45 11/21/2022 12:56 PM CDT Plan of Treatment Not on file Medical Devices Implanted Type Area Nanosystems Engineer Device Identifier Shelf Expiration Date Model / Serial / Lot Vascular Graft Vascular Graft Left: Arm Procedures Procedure Name Priority Date/Time Associated Diagnosis Comments MICROSCOPIC MANUAL STAT 05/18/2023 8: 46 AM INSOLE REINFORCER DIPSTICK, U STAT 05/18/2023 8:46 AM INSOLE REINFORCER PH, U STAT 05/18/2023 8:46 AM INSOLE REINFORCER OSMOLALITY, U STAT 05/18/2023 8:46 AM INSOLE REINFORCER URINALYSIS WITH MICROSCOPIC STAT 05/18/2023 8:46 AM INSOLE REINFORCER BACTERIAL CULTURE, AEROBIC + SUSC, URINE STAT 05/18/2023 8:46 AM INSOLE REINFORCER HEMODIALYSIS Routine 05/18/2023 8:13 AM INSOLE REINFORCER ECG STAT 05/18/2023 7:[address] ABDOMEN PELVIS WITHOUT IV CONTRAST RAD - Semiurgent (Fast; most ED patients; some inpatients) 05/18/2023 6:26 AM INSOLE REINFORCER LIPASE, S/P STAT 05/18/2023 6:14 AM INSOLE REINFORCER LACTATE, B STAT 05/18/2023 6:14 AM INSOLE REINFORCER HEPATIC FUNCTION PANEL, S STAT 05/18/2023 6:14 AM INSOLE REINFORCER BASIC METABOLIC PANEL, S/P STAT 05/18/2023 6:14 AM INSOLE REINFORCER CBC WITH DIFFERENTIAL, B STAT 05/18/2023 6:14 AM INSOLE REINFORCER from Last 3 Months Results * (ABNORMAL) Dipstick, Urine (05/18/2023 8:46 AM INSOLE REINFORCER) Hemoglobin, QL, U Trace(A) Negative 05/18/2023 10:08 AM INSOLE REINFORCER DTL Leukocyte Esterase, U Trace(A) Negative 05/18/2023 10:08 AM INSOLE REINFORCER DTL Nitrite, U Negative Negative 05/18/2023 10:08 AM INSOLE REINFORCER DTL Ketone, U Negative Negative mg/dL 05/18/2023 10:08 AM INSOLE REINFORCER DTL Glucose, U Negative Negative mg/dL 05/18/2023 10:08 AM INSOLE REINFORCER DTL Urine 05/18/2023 8:46 AM INSOLE REINFORCER 05/18/2023 9:49 AM INSOLE REINFORCER Lucy Herndon M.D., M.S. LAB URINE ORDERABLES Performing Organization Address [facility] de Phone Number [address] [place] [address] * Microscopic Manual (05/18/2023 8:46 AM INSOLE REINFORCER) Microscopy Normal 05/18/2023 10:37 AM INSOLE REINFORCER DTL RBC <3 <3 /hpf 05/18/2023 10:37 AM INSOLE REINFORCER DTL WBC 1-3 /hpf 05/18/2023 10:37 AM INSOLE REINFORCER DTL Comment: ----REFERENCE VALUE---- <4 ??(Males) <11 (Females) Squamous Epithelial Cells, U 1-3 /hpf 05/18/2023 10:37 AM INSOLE REINFORCER DTL Urine 05/18/2023 8:46 AM INSOLE REINFORCER 05/18/2023 10:08 AM INSOLE REINFORCER Lucy Herndon M.D., M.S. LAB URINE ORDERABLES Performing Organization Address [facility] Co de Phone Number [facility] [address] [place] [address] * Bacterial Culture, Aerobic + Susceptibility, Urine (05/18/2023 8:46 AM INSOLE REINFORCER) Urine Culture No growth after 1 day of incubation. 05/19/2023 12:33 PM INSOLE REINFORCER DT Urine (Urine, Midstream) 05/18/2023 8:46 AM INSOLE REINFORCER 05/18/2023 2:26 PM INSOLE REINFORCER Comment:Specimen Source Site : Urine Lucy Herndon M.D., M.S. LAB MICROB IOLOGY - GENERAL ORDERABLES Performing Organization Address [facility] Co de Phone Number [facility] [address] [place] [address] * pH, Urine (05/18/2023 8:46 AM INSOLE REINFORCER) pH, U 7.8 4.5 - 8.0 05/18/2023 10: 14 AM INSOLE REINFORCER DT Urine 05/18/2023 8:46 AM INSOLE REINFORCER 05/18/2023 9:49 AM INSOLE REINFORCER Lucy Herndon M.D., M.S. LAB URINE ORDERABLES Performing Organization Address [facility] Co de Phone Number [facility] [address] [place], [place] [address] [place] [address] 200 [place] [address] * Osmolality, Urine (05/18/2023 8:46 AM INSOLE REINFORCER) Osmolality, U 305 150 - 1150 mOsm/kg 05/18/2023 10:14 AM INSOLE REINFORCER DT Urine 05/18/2023 8:46 AM INSOLE REINFORCER 05/18/2023 9:49 AM INSOLE REINFORCER Lucy Herndon M.D., M.S. LAB URINE ORDERABLES Performing Organization Address [facility] Co de Phone Number [facility] [address] [place], [place] [address] [address] [place] [address] * (ABNORMAL) Urinalysis with Microscopic: Urine, Midstream (05/18/2023 8:46 AM INSOLE REINFORCER) Source Urine, Urine, Midstream 05/18/2023 9:49 AM INSOLE REINFORCER DTL Color, U Yellow 05/18/2023 9:49 AM INSOLE REINFORCER DTL Clarity, U Clear 05/18/2023 9:49 AM INSOLE REINFORCER DTL Protein, U 191(H) <26 mg/dL 05/18/2023 10:38 AM INSOLE REINFORCER DTL Protein/Osmol ality 6.26(H) <0.42 ratio 05/18/2023 10:38 AM INSOLE REINFORCER DTL Predicted 24 HR Protein, U 5410(H) <229 mg/24 h 05/18/2023 10:38 AM INSOLE REINFORCER DTL Predicted Range 1717-35200 mg/24 h 05/18/2023 10:38 AM INSOLE REINFORCER DTL Urine (Urine, Midstream) 05/18/2023 8:46 AM INSOLE REINFORCER 05/18/2023 9:49 AM INSOLE REINFORCER Lucy Herndon M.D., M.S. LAB URINE ORDERABLES Performing Organization Address [facility] Co de Phone Number [facility] [address] [place] [address], [facility] [address] [place] [address] * ECG 12 Lead (05/18/2023 7:16 AM INSOLE REINFORCER) Ventricular Rate ECG/Min 87 BPM MUSE PA Interval 146 ms MUSE QRSD Interval 104 ms MUSE QT Interval 390 ms MUSE QTC Interval 469 ms MUSE P Cortez 63 degrees MUSE R Cortez 86 degrees MUSE T Wave Cortez 53 degrees MUSE 05/18/2023 7:16 AM INSOLE REINFORCER 05/18/2023 7:24 AM INSOLE REINFORCER Impressions MUSE - 05/18/2023 7:24 AM INSOLE REINFORCER Normal sinus rhythm Minimal voltage criteria for [...] Pelvis without IV Contrast (05/18/2023 6:26 AM INSOLE REINFORCER) Anatomical Region Laterality Modality Abdomen, Pelvis, Abdominal R ST LOS, Abdominal ARZ LOS, Abdominal FLA LOS N/A Computed Tomograp hy, Computed Tomography Impressions 05/18/2023 12:39 PM INSOLE REINFORCER Nonspecific perinephric stranding about the left kidney in the setting of previously seen complex cyst. Differential possibilities include rupture of the cyst, superinfection of the cyst or possibly pyelonephritis. Recommend follow-up CT abdomen pelvis with IV contrast or ultrasound in further evaluation if clinically indicated. Narrative 05/18/2023 12:39 PM INSOLE REINFORCER EXAM: ??CT ABDOMEN PELVIS WITHOUT IV CONTRAST [...] evaluation ifclinically indicated. Lucy Herndon M.D., M.S. [facility] CT PRO CEDURES * Lactate, B (05/18/2023 6:14 AM INSOLE REINFORCER) Pathologist [facility] Lactate, B 0.7 0.5 - 2.2 mmol/L 05/18/2023 6:22 AM INSOLE REINFORCER STMA Blood (Blood, Venous) 05/18/2023 6:14 AM INSOLE REINFORCER 05/18/2023 6:18 AM INSOLE REINFORCER Lucy Herndon M.D., M.S. LAB BLOOD NON ADD-ON [facility] [address] [place] [address], [facility] [address] [place] [address] * Hepatic Function Panel (05/18/2023 6:14 AM INSOLE REINFORCER) Bilirubin, Total, S 0.4 0.0 - 1.2 mg/dL 05/18/2023 6:59 AM INSOLE REINFORCER DTL Bilirubin, Direct, S <0.2 0.0 - 0.3 mg/dL 05/18/2023 6:59 AM INSOLE REINFORCER DTL Aspartate Aminotransferase (AST), S 16 8 - 48 U/L 05/18/2023 6:59 AM INSOLE REINFORCER DTL Alanine Aminotransferase (ALT), S 11 7 - 55 U/L 05/18/2023 6:59 AM INSOLE REINFORCER DTL Alkaline Phosphatase, S 72 40 - 129 U/L 05/18/2023 6:59 AM INSOLE REINFORCER DTL Albumin, S 4.6 3.5 - 5.0 g/dL 05/18/2023 6:59 AM INSOLE REINFORCER DTL Protein, Total, S 7.1 6.3 - 7.9 g/dL 05/18/2023 6:59 AM INSOLE REINFORCER DTL Blood (Blood, Venous) 05/18/2023 6:14 AM INSOLE REINFORCER 05/18/2023 6:39 AM INSOLE REINFORCER Lucy Herndon M.D., M.S. LAB BLOOD ADD-ON [facility] [address] [place] [address], [facility] [address] [place] [address] * (ABNORMAL) CBC with Differential, Blood (05/18/2023 6:14 AM INSOLE REINFORCER) Hemoglobin 10.9(L) 13.2 - 16.6 g/dL 05/18/2023 6:20 AM INSOLE REINFORCER STMA Hematocrit 34.6(L) 38.3 - 48.6 % 05/18/2023 6:20 AM INSOLE REINFORCER STMA Erythrocytes 3.99(L) 4.35 - 5.65 x10(12)/L 05/18/2023 6:20 AM INSOLE REINFORCER STMA MCV 86.7 78.2 - 97.9 fL 05/18/2023 6:20 AM INSOLE REINFORCER STMA RBC Distrib Width 15.4(H) 11.8 - 14.5 % 05/18/2023 6:20 AM INSOLE REINFORCER STMA Platelet Count 313 135 - 317 x10(9)/L 05/18/2023 6:20 AM INSOLE REINFORCER STMA Leukocytes 6.8 3.4 - 9.6 x10(9)/L 05/18/2023 6:20 AM INSOLE REINFORCER STMA Neutrophils 3.78 1.56 - 6.45 x10(9)/L 05/18/2023 6:20 AM INSOLE REINFORCER DHPM Lymphocytes 1.48 0.95 - 3.07 x10(9)/L 05/18/2023 6:20 AM INSOLE REINFORCER STMA Monocytes 0.74 0.26 - 0.81 x10(9)/L 05/18/2023 6:20 AM INSOLE REINFORCER STMA Eosinophils 0.70(H) 0.03 - 0.48 x10(9)/L 05/18/2023 6:20 AM INSOLE REINFORCER STMA Basophils 0.08 0.01 - 0.08 x10(9)/L 05/18/2023 6:20 AM INSOLE REINFORCER STMA Blood (Blood, Venous) 05/18/2023 6:14 AM INSOLE REINFORCER 05/18/2023 6:18 AM INSOLE REINFORCER Lucy Herndon M.D., M.S. LAB BLOOD ADD-ON [facility] [address] [place] [address], [facility] STMA [facility] [address] [place] [address] [facility] [address] [place] [address] * (ABNORMAL) Lipase (05/18/2023 6:14 AM INSOLE REINFORCER) Lipase, S 110(H) 13 - 60 U/L 05/18/2023 6:59 AM INSOLE REINFORCER DTL Blood (Blood, Venous) 05/18/2023 6:14 AM INSOLE REINFORCER 05/18/2023 6:39 AM INSOLE REINFORCER Lucy Herndon M.D., M.S. LAB BLOOD ADD-ON [facility] [address] [place] [address], [facility] DTL [facility] [address] [place] [address] * (ABNORMAL) Basic Metabolic Panel (05/18/2023 6:14 AM INSOLE REINFORCER) Potassium, P 6.0(CH) 3.6 - 5.2 mmol/L 05/18/2023 7:00 AM INSOLE REINFORCER STMA Sodium, P 140 135 - 145 mmol/L 05/18/2023 6:59 AM INSOLE REINFORCER STMA Chloride, P 98 98 - 107 mmol/L 05/18/2023 7:00 AM INSOLE REINFORCER STMA Bicarbonate, P 26 22 - 29 mmol/L 05/18/2023 7:00 AM INSOLE REINFORCER STMA Anion Gap, P 16(H) 7 - 15 05/18/2023 7:00 AM INSOLE REINFORCER STMA BUN (Blood Urea Nitrogen), P 57(H) 8 - 24 mg/dL 05/18/2023 6:35 AM INSOLE REINFORCER STMA Creatinine 12.93(H) 0.74 - 1.35 mg/dL 05/18/2023 6:35 AM INSOLE REINFORCER STMA Estimated GFR (eGFR) <15(L) >=60 mL/min/BSA 05/18/2023 6:35 AM INSOLE REINFORCER STMA Comment: Estimated GFR calculated using the 2020 CKD_EPI creatinine equation. Calcium, Total, P 9.5 8.6 - 10.0 mg/dL 05/18/2023 6:35 AM INSOLE REINFORCER STMA Glucose, P 105 70 - 140 mg/dL 05/18/2023 6:35 AM INSOLE REINFORCER STMA Blood (Blood, Venous) 05/18/2023 6:14 AM INSOLE REINFORCER 05/18/2023 6:18 AM INSOLE REINFORCER Lucy Herndon M.D., M.S. LAB BLOOD ADD-ON [facility] [address] [place] [address], [facility] [address] [place] [address] from Last 3 Months Advance Directives For more information, please contact: [phone] Latest Code Status on File Code Status [...] Answer Comments Full Code: Discussed Care Teams Cardiac Rehabilitation Program Director Relationship Specialty Start Date End Date Elsewhere, Pcp PCP - General Internal Medicine 02/04/23
--- OUTSIDE RECORDS SUMMARY | 2023-05-20 09:43 | XMS_ITS | Encounter Summary ---
Author Name Unknown Organization [facility] Address [address] [place] [address] Care Team Providers Care Grinding Mill Operator Name Role Phone Elsewhere, Pcp Primary Care Provider Unavailabl e Reason for Visit * Reason Onset Date Comments Phone Contact 05/14/2023 Encounter Details Date Type Department Care Team (Latest Contact Info) Description 05/14/2023 Clinical Communication Maco ferreira [facility] for Transplantation and Clinical Regeneration in [place], [place] [address] [place] [phone] Roseline Humphrey R.N. [address] [place] [phone] Phone Contact Social History Tobacco Use Types Packs/Day Years [...] your living situation today? I have a [facility] place to live 11/14/2022 Sex and Gender Information Value Date Recorded Sex Assigned at Male 11/14/2022 11:03 AM CDT Gender Identity Male 11/14/2022 11:03 AM CDT Sexual Orientation Straight 11/14/2022 11 :03 AM CDT documented as of this encounter Plan of Treatment Not on file documented as of this encounter Visit Diagnoses Not on filedocumented in this encounter Care Teams Grinding Mill Operator Relationship Specialty Start Date End Date Elsewhere, Pcp PCP - General Internal Medicine 02/04/23 documented as of this encounter
--- OUTSIDE RECORDS SUMMARY | 2023-05-20 09:43 | XMS_ITS | Encounter Summary ---
Author Name Unknown Organization [facility] Address [address] [place] [id number] Care Team Providers Care Retort Firer Name Role Phone Elsewhere, Pcp Primary Care Provider Unavailabl e Encounter Details Date Type Department Care Team (Late st Contact Info) Description 04/08/2023 Orders Only Division of Nephrology and Hypertension, [facility], in [place], [place] [address] [place] [phone] Drew Mo, WOOD PREPARATION SUPERVISOR, C.N.P., M.S.N. [address] [place] [phone] Social History Tobacco Use Types Packs/Day Years [...] your living situation today? I have a [facility] place to live 11/14/2022 Sex and Gender Information Value Date Recorded Sex Assigned at Male 11/14/2022 11:03 AM CDT Gender Identity Male 11/14/2022 11:03 AM CDT Sexual Orientation Straight 11/14/2022 11 :03 AM CDT documented as of this encounter Plan of Treatment Not on file documented as of this encounter Visit Diagnoses Not on filedocumented in this encounter Care Teams Retort Firer Relationship Specialty Start Date End Date Elsewhere, Pcp PCP - General Internal Medicine 02/04/23 documented as of this encounter
--- OUTSIDE RECORDS SUMMARY | 2023-05-20 09:43 | XMS_ITS | Encounter Summary ---
Author Name Unknown Organization [facility] Address [address] [place] [address] Care Team Providers Care Math Interventionist Name Role Phone Elsewhere, Pcp Primary Care Provider Unavailabl e Encounter Details Date Type Department Care Team (Late st Contact Info) Description 05/13/2023 Orders Only Division of Nephrology and Hypertension, [facility], in [place], [place] [address] [place] [phone] Drew Mo, BUILD MANAGER, C.N.P., M.S.N. [address] [place] [phone] Social History Tobacco Use Types Packs/Day Years [...] your living situation today? I have a [facility] place to live 11/14/2022 Sex and Gender Information Value Date Recorded Sex Assigned at Male 11/14/2022 11:03 AM CDT Gender Identity Male 11/14/2022 11:03 AM CDT Sexual Orientation Straight 11/14/2022 11 :03 AM CDT documented as of this encounter Plan of Treatment Not on file documented as of this encounter Visit Diagnoses Not on filedocumented in this encounter Care Teams Math Interventionist Relationship Specialty Start Date End Date Elsewhere, Pcp PCP - General Internal Medicine 02/04/23 documented as of this encounter
--- OUTSIDE RECORDS SUMMARY | 2023-05-20 09:44 | XMS_ITS | Encounter Summary ---
Author Name Unknown Organization [facility] Address [address] [place] [address] Care Team Providers Care Head Buyer Tobacco Name Role Phone Elsewhere, Pcp Primary Care Provider Unavailabl e Encounter Details Date Type Department Care Team (Late st Contact Info) Description 03/18/2023 Orders Only Division of Nephrology and Hypertension, [facility], in [place], [place] [address] [place] [phone] Drew Mo, CHICKEN RAISER, C.N.P., M.S.N. [address] [place] [phone] Social History Tobacco Use Types Packs/Day Years [...] your living situation today? I have a [facility] place to live 11/14/2022 Sex and Gender Information Value Date Recorded Sex Assigned at Male 11/14/2022 11:03 AM CDT Gender Identity Male 11/14/2022 11:03 AM CDT Sexual Orientation Straight 11/14/2022 11 :03 AM CDT documented as of this encounter Plan of Treatment Not on file documented as of this encounter Visit Diagnoses Not on filedocumented in this encounter Care Teams Head Buyer Tobacco Relationship Specialty Start Date End Date Elsewhere, Pcp PCP - General Internal Medicine 02/04/23 documented as of this encounter
--- OUTSIDE RECORDS SUMMARY | 2023-05-20 09:44 | XMS_ITS | Encounter Summary ---
Author Name Unknown Organization [facility] Address [address] [place] [address] Care Team Providers Care Supervisor Irrigation Name Role Phone Elsewhere, Pcp Primary Care Provider Unavailabl e Encounter Details Date Type Department Care Team (Late st Contact Info) Description 02/11/2023 Orders Only Division of Nephrology and Hypertension in [place], [place] [address] [place] [phone] Concetta Mejía M.D., Ph.D. [address] [place] [phone] Social History Tobacco Use Types [...] [facility] live 11/14/2022 Sex and Gender Information Value Date Recorded Sex Assigned at Male 11/14/2022 11:03 AM CDT Gender Identity Male 11/14/2022 11:03 AM CDT Sexual Orientation Straight 11/14/2022 11 :03 AM CDT documented as of this encounter Plan of Treatment Not on file documented as of this encounter Visit Diagnoses Not on filedocumented in this encounter Care Teams Supervisor Irrigation Relationship Specialty Start Date End Date Elsewhere, Pcp PCP - General Internal Medicine 02/04/23 documented as of this encounter
--- OUTSIDE RECORDS SUMMARY | 2023-05-20 09:44 | XMS_ITS | Encounter Summary ---
Author Name Unknown Organization [facility] Address [address] [place] [address] Care Team Providers Care Bankruptcy Law Specialist Name Role Phone Elsewhere, Pcp Primary Care Provider Unavailabl e Encounter Details Date Type Department Care Team (Late st Contact Info) Description 03/04/2023 Orders Only Division of Nephrology and Hypertension, [facility], in [place], [place] [address] [place] [phone] Drew Mo, CATTLE INSPECTOR, C.N.P., M.S.N. [address] [place] [phone] Social History Tobacco Use Types Packs/Day Years [...] on filedocumented in this encounter Care Teams Bankruptcy Law Specialist Relationship Specialty Start Date End Date Elsewhere, Pcp PCP - General Internal Medicine 02/04/23 documented as of this encounter
--- OUTSIDE RECORDS SUMMARY | 2023-05-20 09:44 | XMS_ITS | Encounter Summary ---
Author Name Unknown Organization [facility] Address [address] [place] [address] Care Team Providers Care School Library Media Specialist Name Role Phone Elsewhere, Pcp Primary Care Provider Unavailabl e Encounter Details Date Type Department Care Team (Late st Contact Info) Description 02/24/2023 Orders Only Division of Nephrology and Hypertension, [facility], in [place], [place] [address] [place] [phone] rDew Mo, PARACHUTE OFFICER, C.N.P., M.S.N. [address] [place] [phone] Social History Tobacco Use Types Packs/Day Years [...] on filedocumented in this encounter Care Teams School Library Media Specialist Relationship Specialty Start Date End Date Elsewhere, Pcp PCP - General Internal Medicine 02/04/23 documented as of this encounter
--- OUTSIDE RECORDS SUMMARY | 2023-05-20 09:44 | XMS_ITS | Encounter Summary ---
Author Name Unknown Organization [facility] Address [address] [place] [address] Care Team Providers Care Ship'S Electronic Warfare Officer Name Role Phone Elsewhere, Pcp Primary Care Provider Unavailabl e Reason for Referral * Medication Prior Authorization - Closed Specialty Diagnoses / Procedures Referred By Mel quiroz Referred To Contact Drew Mo APRN, C.N.Corrine, M.S.N. [address] [place] [phone] Referral ID Status Reason Start Date Expiration Date Visits Re quested Visits Authorized [id number] Closed 1 1 L CUSTODIAN Encounter Details Date Type Department Care Team (Late st Contact Info) Description 04/01/2023 Orders Only Division of Nephrology and Hypertension, [facility], in [place], [place] [address] [place] [phone] Drew Mo APRN C.N.P., M.S.N. [address] [place] [phone] Social History Tobacco Use Types Packs/Day Years [...] on filedocumented in this encounter Care Teams Ship'S Electronic Warfare Officer Relationship Specialty Start Date End Date Elsewhere, Pcp PCP - General Internal Medicine 02/04/23 documented as of this encounter
--- OUTSIDE RECORDS SUMMARY | 2023-05-20 09:44 | XMS_ITS | Encounter Summary ---
Author Name Unknown Organization [facility] Address [address] [place] [address] Care Team Providers Care Hospital Librarian Name Role Phone Elsewhere, Pcp Primary Care Provider Unavailabl e Encounter Details Date Type Department Care Team (Late st Contact Info) Description 03/25/2023 Orders Only Division of Nephrology and Hypertension in [place], [place] [address] [place] [phone] Garth Burdick Jr., D.O. [address] [place] [phone] Social History Tobacco Use Types Packs/Day Years [...] on filedocumented in this encounter Care Teams Hospital Librarian Relationship Specialty Start Date End Date Elsewhere, Pcp PCP - General Internal Medicine 02/04/23 documented as of this encounter
--- OUTSIDE RECORDS SUMMARY | 2023-05-20 09:44 | XMS_ITS | Encounter Summary ---
Author Name Unknown Organization [facility] Address [address] [place] [address] Care Team Providers Care Director Voice Name Role Phone Elsewhere, Pcp Primary Care Provider Unavailabl e Reason for Visit * Reason Comments Abdominal Pain Nausea Encounter Details Date Type Department Care Team (Late st Contact Info) Description 02/04/2023 11:19 PM CDT - 02/07/2023 2:40 PM CDT Hospital Encounter [facility], [facility], Eighth Floor [address] [place] [phone] Renay Hernandez M.D. [address] [place] [phone] Xochitl Dewitt M.D. [address] [place] [phone] Abdominal Pain (Primary Dx); Cyst Renal; Hemodialysis [...] your living situation today? I have a [facility] to [facility] 11/14/2022 Sex and [...] CDT DISCHARGE SUMMARY BRIEF OVERVIEW Discharge Hospital: [facility] Discharge Provider: No att. providers found Discharge Provider Team: Hospital Internal Medicine (HIM) - [facility] Medicine 6 ([facility] Primary Care Providers: Elsewhere, Pcp (General) [...] Justin was hospitalized on [facility] 6 ([facility]) for evaluation and management of: Hemodialysis Status (HCC) Mr. Salbador Justin is a very pleasant 37 y.o. 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 Per chart review, patient typically receives iHD locally in [place]. He has not had a run of [...] ascites. Lactate unremarkable. [facility]. During [...] have close follow-up with his PCP. An BATH SOLUTION MAKER was called on 02/06/2023 for acute hypotension [...] care was discussed with Dr. Orta, HIM teamcenter consultant. I saw and evaluated Salbador Justin today and provided counseling [id number] at bedside. I personally spent a total of greater than 30 minutes in counseling and coordination of care as described above to facilitate the hospital discharge. Discharge instructions were provided to the patient and caregiver(s). documented in this encounter Discharge Instructions * Discharge Instructions* Federica Bills - 02/05/2023 3:06 AM CDT You were discharged from the [facility] Medicine 6 ([facility]) Service. Please identify this service name if youcall with questions after hospitalization. * Attachments The following attachments cannot be sent through Care Everywhere. * Vitamin B-12 (Cyanocobalamin) (By mouth) (Salvadorean) * Pantoprazole (By mouth) (Salvadorean) * Prochlorperazine (By mouth) (Salvadorean) documented in this encounter Medications at Time [...] (Comment) [chest pain post treatment] Other (Comment) [filling mixer see note, finished tx with no issues] Post-Hemodialysis Comments filling mixer see note, finished tx with no issues [...] # ESRD related to hypertension maintained on [facility] hemodialysis since 2017 # Admitted 02/04/2023 abdominal pain with diarrhea [...] hemodialysis will be planned for Friday at [facility]. Dismissal Recommendations: -- Next hemodialysis is Friday02/08/[address] [facility], following his Friday, , Friday dialysis [...] has been staffed with Dr. Estes, Nephrology teamcenter consultant. For questions or concerns, please contact the Nephrology C service at [phone]. * Viola Mosher APRN C.N.P., M.S.N. - 02/06/2023 11:00 AM CDT NEPHROLOGY CONSULT SERVICE - PROGRESS NOTE Hospital Day 1 SUBJECTIVE Mr. Justin was seen and examined during hemodialysis today. He is dialyzing in the recliner. He had an episode earlier today suspected vagal vasal requiring BATH SOLUTION MAKER (see addendum below). On my return visit, he was reconnected hemodialysis and his hemodialysis session was going well. He denies lightheaded or dizziness. He reports his abdominal pain has improved. He denies dyspnea or chest pain. He denies questions for nephrology. I have reviewed the current medication list. OBJECTIVE Admission weight: No data found. I/O 02/05 0000 02/05 P.O. 500 59 Red Blood Cells [...] (Comment) [chest pain post treatment] Other (Comment) [filling mixer see note, finished tx with no issues] Post-Hemodialysis Comments filling mixer see note, finished tx with no issues [...] elevated quicklyto 166/98 (116) with his alertness. BATH SOLUTION MAKER was called. RMG was 119. Once awake and alert he complainedof abdominal pain. During BATH SOLUTION MAKER med 6 and ICU providers presented to bedside. It is thought to be vagal vasal response to starting hemodialysis as he is intravascular on the fiber drier operator side; although no flui d [...] has been staffed with Dr. Estes, Nephrology teamcenter consultant. For questions or concerns, please contact the Nephrology C service at [phone]. Associated attestation - Rebecca Estes M.D. - [...] Will continue to follow. Rebecca Estes M.D. Brand Inspector Policy Writer Nephrology and Hypertension * Elvira Sanchez APRN, C.N.P., D.N.P. - 02/06/2023 9:18 AM CDT T Medicine 6 ([facility]) Progress Notes SUBJECTIVE Mr. Justin was seen in the context of morning rounds. An BATH SOLUTION MAKER was called shortly before arrival toa vasovagal [...] / PLAN Mr. Justin is hospitalized on [place] [address] ([facility]) for evaluation and management of: HemodialysisStatus (HCC) Mr. 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 Per chart review, patient typically receives iHD locally in [place]. He has not had a run of [...] ascites. Lactate unremarkable. [facility]. Since [...] has been obtained and currently pending. An BATH SOLUTION MAKER was called on 02/06/2023 during dialysis, shortly [...] with 1unit RBCs. # ESRD on iHD T/ # Hyperkalemia likely from missing dialysis # [...] diarrhea, and concern being interestingly dry. An BATH SOLUTION MAKER was called today for a vasovagal episode [...] Uncontrolled HTN # HFpEF # CAD (STEMI 2016) Assessment: Continues to remain hypertensive, with systolics [...] agrees with current plan. Counseling was provided radh-fo-ualy at bedside regarding the plan of care as stated above. I personally spent over half of a total 35 minutes in counseling and coordination of care as documented above. * Dede Berumen PharmMainor., R.Ph. - 02/05/2023 8:13 AM CDT Pharmacist [...] clarify. ASSESSMENT / PLAN ESRD - Dialyzes , last run 01/27. Continues PhosLo 1334 mg [...] consider prn ondansetron if on-going nausea. Janelle Berumen Pharm.D., R.Ph. [phone] documented in this encounter H&P Notes * Xochitl Dewitt M.D. - 02/05/2023 3:37 AM CDT T Medicine 6 ([facility]) Admission Note SUBJECTIVE CHIEF COMPLAINT / REASON FOR VISIT Missed Dialysis HISTORY OF PRESENT ILLNESS Salbador Justin is a 37 y.o. male with medical comorbidities significant for HFpEF (2/2 HTN), ESRD (iHD T/Th/Sa), and CAD (STEMI 2016) who presents after missing outpatient dialysis. The patient typically receives iHD locally in [place]. 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 Does the patient have any financial concerns? Yes - Cannot afford transportation. Advance Directives Legal Decision Maker: Self Advance Directives: N/A Advance Directives Status: N/A Baseline Functional Status Baseline Activities of Daily Living Mobility: Independent Dressing: Independent Feeding: Independent Bathing: Independent Grooming: Independent Toileting: Independent Behavior: Appropriate, Pleasant, Calm, Cooperative, Oriented Communication: Can write, Understands speaking, Understands Salvadorean, Talks Baseline Services/Resources Primary care clinic and provider: Dr. Stef Ho, [facility] Additional Resources: Anticipated Needs Transportation set [...] to hospital admission. Patient's dialysis services at [facility] have been reconnected. Patient has reliable [...] be changed. Transportation will be provided by [employer] ( [phone]) and paid by [employer]. Cait Bran, M.S.W. 02/07/2023 * Odalys Nguyen M.B., B.Ch., B.A.O. - 02/06/2023 9:22 AM CDT Rapid response team BATH SOLUTION MAKER was called for episode of unresponsiveness 37-year-old [...] for this and he saw Neurology in [place] they reported that they were unlikely to [...] floor. The case was discussed with Dr. Patch- ICU teamcenter consultant * Viola Mosher APRN C.N.P., M.S.N. - 02/05/2023 7:54 AM CDTAssociated Order(s): [...] to hypertension and has required hemodialysis since 2017. Other past medical history includes but is not limited to: HFpEF (2/2 HTN) , CAD (STEMI 2016), left renal cyst and depression. In the outpatient setting he dialyzes at [facility] dialysis unit on a Friday, , [...] well. He notes his last hemodialysis was, 01/27/2023 due to feeling ill. He reports he [...] BFR of 350 mL/min. DIAGNOSTICS Recent Labs 02/04/23 2205 HGB 7.8 L WBC 6.9 PLT 332 [...] has been staffed with Dr. Estes, Nephrology teamcenter consultant. For questions or concerns, please contact the Nephrology C service at [phone]. Associated attestation - Rebecca Estes M.D. - 02/06/2023 8:27 AM CDT I saw and evaluated the patient independently, participating in the saha portions of the service. I reviewed Viola Mosher, HALLE, C.N.P., M.S.N.'s note. I agree with the DORA???s findings and plan. Additional comments: Patient reports abdominal pain is improved. Tolerating HD well. Of note, he isbelow his EDW, but quite hypertensive, so will try to UF some fluid and adjust EDW as tolerated. Rebecca Estes M.D. Brand Inspector Policy Writer Nephrology and Hypertension documented in this encounter Nursing Notes * Kylah Alfredo R.N. - 02/06/2023 6:48 AM CDT Problem: PAIN - ADULT Goal: PT VERBALIZES/DEMONSTRATES ADEQUATE COMFORT LEVEL OR BASELINE 02/06/2023 0648 by Kylah Alfredo R.N. Outcome: Progressing 02/06/2023 0001 by Kylah [...] AM CDT Care of patient transferred to nv by Dr. Fenton. Disposition pending CT results and patient's status.. VITAL SIGNS BP (!) 185/114 Pulse 93 Temp 36.8 ??C Resp 18 SpO2 98% ED Course as of 02/05/23354Feb 05, 2023 0320 I spoke with our dialysis nurse team. Unfortunately the patient does not receive his dialysis through [facility] and will need to be admitted for dialysis. Patient unfortunately can not return to his dialysis center without being dialyzed through the hospital 1st. He has missed several dialysis runs earlier this week. Plan will be to admit to the medicine service for dialysis. Final Diagnoses: as of 02/05/23354 Cyst Renal Hemodialysis Status (HCC) Abdominal Pain Hyperkalemia Candi Hanson APRN, C.N.P., D.N.P. 02/05/23340 Candi Hanson APRN, C.N.P., D.N.P. 02/05/23354 * Renay Hernandez M.D. - 02/04/2023 11:35 PM CDT SUBJECTIVE CHIEF COMPLAINT/REASON FOR VISIT Abdominal Pain and Nausea HISTORY OF PRESENT ILLNESS Salbador Justin is a 37-year-old male with end stage renal failure requiring dialysis (Fri, , Sat) and hypertension who presents to the Emergency [...] History provided by: Patient and medical records medical interpreter needed/used: no REVIEW OF SYSTEMS Constitutional: [...] -- Resp Rate 02/04/232017 18 Blood Pressure 10/10/23 2018 (!) 182/90 SpO2 02/04/232017 100 % Pain [...] I agree with the note of the AIRCRAFT DELIVERY CHECKER/PA. I personally performed the services described in this documentation, as scribed in my presence, andit is both accurate and complete. Renay Hernandez M.D. 02/05/231850 * Estela Dexter R.N. - 02/04/2023 8:18 PM CDT The patient comes to the ED with abd pain that has been going on for two days. He also reports N/V/D and a DAS. He gets dialysis Friday but has not had dialysis since [...] CDT Mr. Justin was hospitalized on [facility] Medicine 6 ([facility] for evaluation and management of: Hemodialysis Status (HCC) Mr. Salbador Justin is a very pleasant 37 y.o. 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 Per chart review, patient typically receives iHD locally in [place]. He has not had a run of [...] ascites. Lactate unremarkable. [facility]. During [...] been obtained and within normal limits. An BATH SOLUTION MAKER was called on 02/06/2023 for acute hypotension [...] * (ABNORMAL) Hemoglobin (02/07/2023 11:02 AM CDT) Hemoglobin 8.2(L) 13.2 - 16.6 g/dL 02/07/2023 11:51 AM CDT DTL Blood (Blood, Venous) 02/07/2023 11:02 AM CDT 02/07/2023 11:42 AM CDT Elvira Sanchez APRN, C.N.P., D.N .P. LAB BLOOD ADD-ON [facility] [address] [place] [address], [facility] 200 [place] [address] * (ABNORMAL) Basic Metabolic Panel (02/07/2023 7:46 AM CDT) Potassium, S 4.3 3.6 - [...] APRN, C.N.P., D.N .P. LAB BLOOD ADD-ON [facility] [address] [facility] [address] [place] [address] * (ABNORMAL) CBC with Differential, Blood (02/07/2023 [...] .P. LAB BLOOD ADD-ON Performing Organization Address City/[facility]/ZIP Co de Phone Number [facility] 200 [place] [address], [facility] DTL [facility] 200 [place], [place] [phone] [place] [address] 200 [place] [address] * (ABNORMAL) Hemoglobin (02/06/2023 4:59 PM CDT) [facility] Hemoglobin 8.2(L) 13.2 - 16.6 g/dL 02/06/2023 5:39 PM CDT DTL Blood (Blood, Venous) 02/06/2023 4:59 PM CDT 02/06/2023 5:29 PM CDT Elvira Sanchez APRN, C.N.P., D.N .P. LAB BLOOD ADD-ON [facility] 200 [place] [address], [facility] DTL [facility] [address] [place] [address] * Transfuse Red Blood Cells : (02/06/2023 1:13 PM CDT) Elvira Sanchez APRN, C.N.P., D.N .P. BLOOD TRANSFUSION ORDERABLES * Transfuse Red Blood Cells : , 1 Units (02/06/2023 1:13 PM CDT) Elvira Sanchez APRN, C.N.P., D.N .P. BLOOD TRANSFUSION ORDERABLES * Type and Screen (with Reflex Antibody ID) (02/06/2023 9:37 AM CDT) [facility] Pos Not applicable 02/06/2023 10:06 AM CDT STRM Antibody Screen Negative Negative 02/06/2023 10:21 AM CDT STRM Type & Screen Expiration 02/09/2023 23:59 02/06/2023 10:06 AM CDT STRM Testing Location [place] DEFAULT 02/06/2023 9:42 AM CDT STRM Blood (Blood, Venous) 02/06/2023 9:37 AM CDT 02/06/2023 9:42 AM CDT Elvira Sanchez APRN, C.N.P., D.N .P. LAB BLOOD BANK TEST ORDERABLES [facility] [address] [place] [address], [facility] [address] [place] [address] * LD (Lactate Dehydrogenase) (02/06/2023 9:37 AM CDT) [facility] LD 164 122 - 222 U/L 02/06/2023 10:32 AM CDT DTL Blood (Blood, Venous) 02/06/2023 9:37 AM CDT 02/06/2023 10:15 AM CDT Kanchan Eckert APRNNJuan CPJuan C, PauloN Juan CP. LAB BLOOD NON ADD-ON Performing Organization Address City/[facility] Co de Phone Number [facility] 200 [place] [address], [facility] DTL [facility] 200 [place] [address] * Lactate (02/06/2023 9:37 AM CDT) Pathologist [facility] Lactate, P 0.6 0.5 - 2.2 mmol/L 02/06/2023 9:52 AM CDT STMA Blood (Blood, Venous) 02/06/2023 9:37 AM CDT 02/06/2023 9:41 AM CDT Mikey Orta M.D. LAB BLOOD NON ADD -ON Performing Organization Address [facility] Co de Phone Number [facility] [address] [place] [address], [facility] STMA [facility] [address] [place] [address] * Glucose, POCT (02/06/2023 8:04 AM CDT) Pathologist [facility] Glucose, POCT, B 119 70 - 140 mg/dL 02/06/2023 8:06 AM CDT PCLX Site Capillary 02/06/2023 8:06 AM CDT PCLX Blood 02/06/2023 8:04 AM CDT 02/06/2023 8:06 AM CDT Unknown Provider LAB POCT ORDERABLES- MANUAL Performing Organization Address City/[facility]/ZIP Co de Phone Number POC [facility] [address] [place] [address], [facility] PCLX [facility] POC [address] [place] [address] * Hemoglobin A1c (02/06/2023 7:40 AM CDT) Hemoglobin A1c, B 4.6 4.0 - 5.6 % 02/06/2023 4:41 PM CDT DTL Blood (Blood, Venous) 02/06/2023 7:40 AM CDT 02/06/2023 4:23 PM CDT Kanchan Eckert APRNNHugo, PauloN Hugo LAB BLOOD ADD-ON Performing Organization Address City/[facility] Co de Phone Number [facility] [address] [place] [address], [facility] DTL [facility] 200 [place] [address] * (ABNORMAL) SPSMA Result (02/06/2023 7:40 AM CDT) Pathologist [facility] Neutrophilic Segs and Bands 49(L) 50 - [...] M.D. LAB BLOOD ADD-ON Performing Organization Address City/[facility]/ZIP Co de Phone Number [facility] [address] [place] [address], [facility] DHPM [facility] [address] [place] [address] * Folate (02/06/2023 7:40 AM CDT) Folate, S 7.3 >=4.0 mcg/L 02/06/2023 10:22 AM CDT DTL Blood (Blood, Venous) 02/06/2023 7:40 AM CDT 02/06/2023 9:10 AM CDT Antonieta Eckert APRN.N.P., D.N .P. LAB BLOOD ADD-ON [facility] [address] [facility] 200 [place] [address] * (ABNORMAL) Soluble Transferrin Receptor (sTfR) (02/06/2023 7:40 AM CDT) Soluble Transferrin Receptor (sTfR) 1.2(L) 1.8 - 4.6 mg/L 02/06/2023 9:58 AM CDT DT Comment: ----ADDITIONAL INFORMATION---- It is reported that Americans may have slightly higher values. Blood (Blood, Venous) 02/06/2023 7:40 AM CDT 02/06/2023 9:10 AM CDT Antonieta Eckert APRN.N.P., D.N .P. LAB BLOOD ADD-ON Performing Organization Address City/[facility]/ZIP Co de Phone Number [facility] 200 [place], [place] [phone] [place] [address] [facility] [address] [place] [address] * (ABNORMAL) Ferritin (02/06/2023 7:40 AM CDT) Ferritin, S 1226(H) 31 - 409 mcg/L 02/06/2023 9:58 AM CDT DTL Blood (Blood, Venous) 02/06/2023 7:40 AM CDT 02/06/2023 9:10 AM CDT Elvira Sanchez APRN C.N.P., D.N .P. LAB BLOOD ADD-ON Performing Organization Address City/[facility]/ZIP Co de Phone Number [facility] [address] DTL [facility] 200 [place] [address] * (ABNORMAL) Iron and Total Iron-Binding Capacity (02/06/2023 7:40 AM CDT) [facility] Iron 113 50 - 150 mcg/dL 02/06/2023 9:58 AM CDT DTL Total Iron Binding Capacity 142(L) 250 - 400 mcg/dL 02/06/2023 9:58 AM CDT DTL Percent Saturation 80(H) 14 - 50 % 02/06/2023 9:58 AM CDT DTL Blood (Blood, Venous) 02/06/2023 7:40 AM CDT 02/06/2023 9:10 AM CDT Elvira Sanchez APRN, C.N.P., D.N .P. LAB BLOOD ADD-ON [facility] 200 [place], [place] [phone] [place] [address] 200 [place] [address] * (ABNORMAL) Hepatic Function Panel (02/06/2023 7:40 AM CDT) [facility] Bilirubin, Total, S 0.6 0.0 - [...] M.D. LAB BLOOD ADD-ON Performing Organization Address City/[facility]/ZIP Co de Phone Number [facility] 200 [place] [address] * Magnesium (02/06/2023 7:40 AM CDT) Pathologist [facility] Magnesium, S 1.9 1.7 - 2.3 mg/dL 02/06/2023 8:49 AM CDT DTL Blood (Blood, Venous) 02/06/2023 7:40 AM CDT 02/06/2023 8:24 AM CDT Elvira Sanchez APRN C.N.P., D.N .P. LAB BLOOD ADD-ON Performing Organization Address City/[facility]/ZIP Co de Phone Number [facility] 200 [place] [address] * (ABNORMAL) CBC with Differential, Blood (02/06/2023 [...] APRN, C.N.P., D.N .P. LAB BLOOD ADD-ON [facility] [address] [place] [address], [facility] DTL [facility] [address] [place] [address] [facility] [address] [place] [address] * (ABNORMAL) Renal Function Panel (02/06/2023 7:40 [...] APRN, C.N.P., D.N .P. LAB BLOOD ADD-ON [facility] [address] [place] [address], [facility] DTHendry [facility] LaboratoriesFlorence [facility] [address] [place] [address] * (ABNORMAL) Phosphorus Inorganic (02/06/2023 7:40 AM CDT) Phosphorus (Inorganic), S 5.9(H) 2.5 - 4.5 mg/dL 02/06/2023 8:47 AM CDT DTL Blood (Blood, Venous) 02/06/2023 7:40 AM CDT 02/06/2023 8:26 AM CDT Antonieta Eckert APRN.N.P., D.N .P. LAB BLOOD ADD-ON Performing Organization Address City/[facility] Co de Phone Number [facility] [address] [place] [address], [facility] 200 [place] [address] * Magnesium (02/06/2023 7:40 AM CDT) Pathologist [facility] Magnesium, S 1.9 1.7 - 2.3 mg/dL 02/06/2023 8:47 AM CDT DTL Blood (Blood, Venous) 02/06/2023 7:40 AM CDT 02/06/2023 8:26 AM CDT Antonieta Eckert APRN.N.P., D.N .P. LAB BLOOD ADD-ON Performing Organization Address [facility] Co de Phone Number [facility] [address] [place] [address], [facility] 200 [place] [address] * ECG 12 Lead (02/05/2023 7:57 PM CDT) [facility] Ventricular Rate ECG/Min 89 BPM MUSE DC Interval 142 ms MUSE QRSD Interval 100 ms MUSE QT Interval 410 ms MUSE QTC Interval 498 ms MUSE P Mohler 62 degrees MUSE R Mohler 57 degrees MUSE T Wave Mohler 104 degrees MUSE 02/05/2023 7:57 PM CDT [...] PM CDT 02/05/2023 6:58 PM CDT Elvira Sanchez APRN, C.N.P., D.N .P. LAB BLOOD ADD-ON [facility] [address] [place] [address], [place] STMA [facility] [address] [place] [address] [facility] [address] [place] [address] * ECG 12 Lead (02/05/2023 4:42 PM CDT) Ventricular Rate ECG/Min 89 BPM MUSE DC Interval 140 ms MUSE QRSD Interval 114 ms MUSE QT Interval 412 ms MUSE QTC Interval 501 ms MUSE P Mohler 72 degrees MUSE R Mohler 76 degrees MUSE T Wave Mohler 71 degrees MUSE 02/05/2023 4:42 PM CDT [...] by Perfecto Lugo III, CRAT Elvira Sanchez Kanchan NERINJuan CPJuan C, D.N .P. ECG ORDERABLES Performing Organization Address [facility] de Phone Number MUSE NA * ECG 12 Lead (02/05/2023 2:14 PM CDT) Ventricular Rate ECG/Min 82 BPM MUSE DC Interval 148 ms MUSE QRSD Interval 114 ms MUSE QT Interval 406 ms MUSE QTC Interval 474 ms MUSE P Mohler 67 degrees MUSE R Mohler 72 degrees MUSE T Wave Mohler 83 degrees MUSE 02/05/2023 2:14 PM CDT [...] occurred Reviewed by Perfecto Lugo III, CRAT Kanchan Du APRNNJuna CPJuan C, M.S.N. ECG ORDERABLES Performing Organization Address [facility] Co de Phone Number MUSE NA * Methylmalonic Acid (MMA), Quantitative (02/05/2023 9:58 AM CDT) Methylmalonic Acid, QN, S 0.32 <=0.40 nmol/mL 02/07/2023 8:32 AM CDT DTL Comment: ----ADDITIONAL INFORMATION---- This test was developed and its performance characteristics determined by [facility] in a manner consistent with CLIA requirements. This test has not been cleared or approved by the U.S. Food and Drug Administration. Blood (Blood, Venous) 02/05/2023 9:58 AM CDT 02/06/2023 7:37 AM CDT Antonieta Eckert APRN.N.PJuna C, D.N .P. LAB BLOOD ADD-ON [facility] [address] [place] [address], [facility] 200 [facility] [address] [place] [address] * (ABNORMAL) CBC with Differential, Blood (02/05/2023 [...] APRN, C.N.P., D.N .P. LAB BLOOD ADD-ON [facility] [address] [place] [address], [facility] STMA [facility] [address] [place] [address] [facility]3] [address] [place] [address] * (ABNORMAL) Basic Metabolic Panel (02/05/2023 9:58 AM CDT) [facility] Potassium, P 5.6(H) 3.6 - 5.2 [...] 9:58 AM CDT 02/05/2023 10:37 AM CDT Antonieta Eckert APRN.N.P., D.N .P. LAB BLOOD ADD-ON Performing Organization Address City/[facility]/ZIP Co de Phone Number [facility] 200 [place], [place] [phone] [place] [address] [facility] 200 [place] [address] * Folate (02/05/2023 9:58 AM CDT) Folate, S 9.5 >=4.0 mcg/L 02/05/2023 1: 27 PM CDT DT Blood (Blood, Venous) 02/05/2023 9:58 AM CDT 02/05/2023 10:49 AM CDT Xochitl Dewitt M.D. LAB BLOOD ADD -ON Performing Organization Address City/[facility] Co de Phone Number [facility] 200 [place] [address], [facility] DTL [facility] 200 [place] [address] * (ABNORMAL) Vitamin B12 Assay (02/05/2023 9:58 [...] LAB BLOOD ADD -ON Performing Organization Address City/[facility]/ZIP Co de Phone Number [facility] [address] [place] [address], [facility] DTL [facility] [address] [place] [address] * (ABNORMAL) SPSMA Result (02/05/2023 9:58 AM [...] Xochitl Dewitt M.D. LAB BLOOD ADD -ON [facility] [address] [place] [address], [facility] DHPM [facility] [address] [place] [address] * (ABNORMAL) Reticulocyte Profile (02/05/2023 9:58 AM [...] Xochitl Dewitt M.D. LAB BLOOD ADD -ON [facility] [address] [facility] 200 [place] [address] * (ABNORMAL) Ferritin (02/05/2023 9:58 AM CDT) Ferritin, S 1364(H) 31 - 409 mcg/L 02/05/2023 11:24 AM CDT DTL Blood (Blood, Venous) 02/05/2023 9:58 AM CDT 02/05/2023 10:49 AM CDT Xochitl Dewitt M.D. LAB BLOOD ADD -ON [facility] [address] [place], [place] [phone] [place] [address] [facility] [address] [place] [address] * (ABNORMAL) Iron and Total Iron-Binding Capacity [...] LAB BLOOD ADD -ON Performing Organization Address City/[facility]/ZIP Co de Phone Number [facility] [address] [place] [address] * (ABNORMAL) Phosphorus Inorganic (02/05/2023 9:58 AM CDT) Phosphorus (Inorganic), S 8.2(H) 2.5 - 4.5 mg/dL 02/05/2023 12:19 PM CDT DTL Blood (Blood, Venous) 02/05/2023 9:58 AM CDT 02/05/2023 10:49 AM CDT Xochitl Dewitt M.D. LAB BLOOD ADD -ON Performing Organization Address [facility] Co de Phone Number [facility] [address] [place] [address] * (ABNORMAL) Magnesium (02/05/2023 9:58 AM CDT) Magnesium, S 2.7(H) 1.7 - 2.3 mg/dL 02/05/2023 10:56 AM CDT DTL Blood (Blood, Venous) 02/05/2023 9:58 AM CDT 02/05/2023 10:40 AM CDT Renay Bolton M.D. LAB BLOOD ADD-ON Performing Organization Address City/[facility]/ZIP Co de Phone Number [facility] [address] [facility] [place] [address] [place] [address] * CT Abdomen Pelvis Angiogram with IV [...] the left kidney. Candi Hanson APRN, C.N.P., Eulogio.N.P. [facility] CT PROCEDURES * CT Abdomen Pelvis without [...] Nobowel obstruction. No perforation. Renay Bolton M.D. [facility] CT DC OCEDURES * CT Head without IV Contrast [...] No acute intracranial findings. Renay Bolton M.D. [facility] CT DC OCEDURES * Microscopic Manual (02/05/2023 12:47 AM [...] M.D. LAB URINE ORDERABLES Performing Organization Address City/[facility] Co de Phone Number [facility] [address] [place] [address], [facility] DTL [facility] 200 [place] [address] * (ABNORMAL) Dipstick, Urine (02/05/2023 12:47 AM [...] M.D. LAB URINE ORDERABLES Performing Organization Address City/[facility] Co de Phone Number [facility] [address] [place] [address], [facility] DTL [facility] [address] [place] [address] * pH, Urine (02/05/2023 12:47 AM CDT) pH, U 7.1 4.5 - 8.0 02/05/2023 1:3 6 AM CDT DTL Urine 02/05/2023 12:4 7 AM CDT 02/05/2023 1:09 AM CDT Bishop Melgar M.D. LAB URINE ORDERABLES Performing Organization Address City/[facility]/ZIP Co de Phone Number [facility] [address] [place] [address] * Osmolality, Urine (02/05/2023 12:47 AM CDT) Osmolality, U 331 150 - 1150 mOsm/kg 02/05/2023 1:36 AM CDT DTL Urine 02/05/2023 12:4 7 AM CDT 02/05/2023 1:09 AM CDT Bishop Melgar M.D. LAB URINE ORDERABLES Performing Organization Address City/[facility] Co de Phone Number [facility] [address] [place] [address] * Bacterial Culture, Aerobic + Susceptibility, Urine (02/05/2023 12:47 AM CDT) [facility] Urine Culture No growth after 1 day of incubation. 02/06/2023 8:15 AM CDT [facility] Urine (Urine, Midstream) 02/05/2023 12:47 AM CDT 02/05/2023 4:25 AM CDT Comment:Specimen Source Site : Urine Bishop Melgar M.D. LAB MICROBIOLOGY - G ENERAL ORDERABLES Performing Organization Address City/[facility]/ZIP Co de Phone Number [facility] 200 [place] [address] * (ABNORMAL) Urinalysis with Microscopic: Urine, Midstream [...] 02/05/2023 2:01 AM CDT DTL Predicted Range 1904-41329 mg/24 h 02/05/2023 2:01 AM CDT DTL Urine (Urine, Midstream) 02/05/2023 12:47 AM CDT 02/05/2023 1:09 AM CDT Bishop Melgar M.D. LAB URINE ORDERABLES Performing Organization Address City/[facility]/ZIP Co de Phone Number [facility] [address] D[address] [facility] [address] [place] [address] * Lactate (02/04/2023 10:05 PM CDT) [facility] Lactate, P 1.0 0.5 - 2.2 mmol/L 02/04/2023 10:40 PM CDT STMA Blood (Blood, Venous) 02/04/2023 10:05 PM CDT 02/04/2023 10:21 PM CDT Bishop Melgar M.D. LAB BLOOD NON ADD-ON [facility] [address] [facility] 200 [place] [address] * (ABNORMAL) CBC with Differential, Blood (02/04/2023 10:05 PM CDT) Pathologist [facility] Hemoglobin 7.8(L) 13.2 - 16.6 g/dL 02/04/2023 [...] CDT Bishop Melgar M.D. LAB BLOOD ADD-ON [facility] [address] [place] [address], [facility] STMA [facility] [address] [place] [address] [facility] [address] [place] [address] * Lipase (02/04/2023 10:05 PM CDT) Lipase, S 48 13 - 60 U/L 02/04/2023 11:05 PM CDT DTL Blood (Blood, Venous) 02/04/2023 10:05 PM CDT 02/04/2023 10:50 PM CDT Bishop Melgar M.D. LAB BLOOD ADD-ON Performing Organization Address City/[facility]/ZIP Co de Phone Number [facility] [address] [place] [address], [facility] [address] [place] [address] * (ABNORMAL) Hepatic Function Panel (02/04/2023 10:05 [...] M.D. LAB BLOOD ADD-ON Performing Organization Address City/[facility]/ZIP Co de Phone Number [facility] [address] [place] [address], [facility] DTL [facility] [address] [place] [address] * (ABNORMAL) Basic Metabolic Panel (02/04/2023 10:05 [...] CDT Bishop Melgar M.D. LAB BLOOD ADD-ON [facility] [address] [place] [address], [facility] STMA [facility] [address] [place] [address] * DX Chest AP or PA and [...] CDT) Ventricular Rate ECG/Min 86 BPM MUSE DC Interval 146 ms MUSE QRSD Interval 100 ms MUSE QT Interval 376 ms MUSE QTC Interval 449 ms MUSE P Mohler 68 degrees MUSE R Mohler 77 degrees MUSE T Wave Mohler 81 degrees MUSE 02/04/2023 8:22 PM CDT [...] - 200 mg/dL 02/06/2023 5:15 PM CDT [facility] Blood 02/04/2023 2:36 PM CDT 02/06/2023 2:36 PM CDT Mikey Orta M.D. LAB BLOOD ADD-ON [facility] [address] [place] [address] [facility] [address] [place] [address] documented in this encounter Visit Diagnoses Diagnosis [...] (after last modification) on Fri02/06/23 at 0930 Given 02/06/2023 5:17 PM CDT 1,000 mg albumin human 5 % injection 12.5 g 12.5 g, intravenous, Once, On Fri02/06/23 at 0900, For 1 dose, Dialysis, If [...] last modification) on Diana 02/06/23 at 1345 Given 02/06/2023 2:00 PM CDT 100 mg losartan tablet 100 mg (COZAAR) 100 mg, oral, Daily, First dose (after last modification) on 02/08/23 at 0900 losartan tablet 25 mg (COZAAR) 25 mg, oral, Every evening, First dose on Fri02/05/23 at 1800 Given 02/05/2023 5:38 PM CDT [...] Ibrahim R.N.) 0033 (Not Given - Provider: Carla M Whitemarsh, R.N. - Reason: Patient/family refused)0845 (Not Given - [...] 0849 (New Bag - Provider: Verito Nicolas R.N.) amLODIPine tablet 10 mg (NORVASC) 10 mg, oral, Daily, First dose on Fri02/05/23 at 0900 1605 (Not Given - Provider: Renuka Ibrahim R.N. - Reason: Patient not available - Comment: dialysis) 1111 (Given - Provider: Robin Chapin R.N.) 0829 (Given - Provider: Sarahi Hicks R.N.) calcium acetate(phosphat bind) capsule 1,334 mg (PHOSLO) 1,334 mg, oral, 3 times daily with meals, First dose on Fri02/05/23 at 0800, 667 mg calcium acetate contains 169 mg of elemental calcium 0801 (Given - Provider: Renuka Ibrahim R.N.)1550 (Not Given - Provider: Renuka Ibrahim R.N. - Reason: Patient not available - Comment: at dialysis)1603 (Given - Provider: Renuka Ibrahim R.N.) 1111 (Not Given - Provider: Renuka Ibrahim R.N. - Reason: Patient not available)1400 (Given - Provider: Renuka Ibrahim R.N. - Comment: pt off unit, rescheduled)1717 (Given - Provider: Renuka Ibrahim R.N.) 0829 (Given - Provider: Sarahi Hicks R.N.)1205 (Given - Provider: Sarahi Hicks R.N.) cyanocobalamin 1,000 mcg/mL injection 1,000 mcg (VITAMIN B12) 1,000 mcg, subcutaneous, Daily, First dose on Fri02/05/23 at 1615, For 7 days 1738 (Given - Provider: Renuka Ibrahim R.N.) 1356 (Given - Provider: Renuka Ibrahim R.N. - Comment: retimed, pt at dialysis) 0829 (Given - Provider: Sarahi Hicks R.N.) droPERidoL injection 1.875 mg (INAPSINE) (COMPLETED) 1.875 mg, intravenous, Once, On Fri02/05/23 at 0159, For 1 dose 0200 (Given - Provider: Sulma Shankar R.N.) epoetin jasmin-epbx injection 3,400 Units (RETACRIT) (COMPLETED) [...] dose 1017 (Given - Provider: Lei Carpio R.N.) heparin (porcine) 1,000 unit/mL injection 5,000 Units (CANCELED) 5,000 Units, intravenous, Once in dialysis, On Fri02/06/23 at 0800, For 1 dose, Dialysis, Heparin (during dialysis) Loading dose 0746 (Given - Provider: Verito Nicolas R.N.) heparin (porcine) injection 5,000 Units 5,000 Units, subcutaneous, Every 8 hours scheduled, First dose on Fri02/05/23 at 0600 0555 (Given - Provider: Paulette Miles RJuan CNJuan C)1600 (Given - Provider: Renuka Ibrahim R.N.)2114 (Given - Provider: Kylah Alfredo RJuan CNJuan C) 0550 (Given - Provider: Noemy SanonNJuan C)1356 (Given - Provider: Renuka Ibrahim R.N.)2226 (Given - Provider: Carla Murray R.N.) 0520 [...] Imaging Protocol Orders 0228 (Given - Provider: Raffaele Conklin R.N.) sodium chloride 0.9 % injection 3 mL 3 mL, intravenous, Every 12 hours scheduled, First dose on Fri02/04/23 at 2100, Peripheral Intravenous Catheter and Rapid Infusion Catheter, when no infusion to maintain patency 0103 (Not Given - Provider: Shell Salcido R.N. - Reason: Other)0801 (Given - Provider: [...] Murray R.N.) 0829 (Not Given - Provider: Sarahi Hicks RJuan CNJuan C - Reason: Patient/family refused) torsemide tablet 100 mg (DEMADEX) (CANCELED) 100 mg, oral, 2 times daily, First dose on Fri02/05/23 at 0900 1605 (Not Given - Provider: Renuka Ibrahim R.N. - Reason: Patient not available - Comment: dialysis)2103 (Given - Provider: Kylah Alfredo R.N.) 1112 [...] Fri02/05/23 at 2100 2103 (Given - Provider: Klyah Alfredo R.N.) 2226 (Given - Provider: Carla [...] For 1 dose 0555 (Given - Provider: Noemy DcN.) iohexoL 300 mg iodine/mL solution 1-200 mL [...] 0833 0857 (Given - Provider: Gurpreet Calderón RJuan CN.)2103 (Given - Provider: Kylah Alfredo RJuan CN.) sodium chloride 0.9 % flush 1-250 mL [...] documented as of this encounter Care Teams Director Voice Relationship Specialty Start Date End Date Elsewhere, Pcp PCP - General Internal Medicine 02/04/23 documented as of this encounter
--- OUTSIDE RECORDS SUMMARY | 2023-05-20 09:44 | XMS_ITS | Encounter Summary ---
Author Name Unknown Organization [facility] Address [address] [place] [address] Care Team Providers Care Director Global Strategic Publisher Sales Name Role Phone Elsewhere, Pcp Primary Care Provider Unavailabl e Encounter Details Date Type Department Care Team (Late st Contact Info) Description 04/02/2023 Orders Only Pharmacy Prior Auth JOHAN [phone] Marko Hager Social History Tobacco Use Types [...] your living situation today? I have a [facility] place to live 11/14/2022 Sex and Gender Information Value Date Recorded Sex Assigned at Male 11/14/2022 11:03 AM CDT Gender Identity Male 11/14/2022 11:03 AM CDT Sexual Orientation Straight 11/14/2022 11 :03 AM CDT documented as of this encounter Plan of Treatment Not on file documented as of this encounter Visit Diagnoses Not on filedocumented in this encounter Care Teams Director Global Strategic Publisher Sales Relationship Specialty Start Date End Date Elsewhere, Pcp PCP - General Internal Medicine 02/04/23 documented as of this encounter
--- OUTSIDE RECORDS SUMMARY | 2023-05-20 09:44 | XMS_ITS | Encounter Summary ---
Author Name Unknown Organization [facility] Address [address] [place] [address] Care Team Providers Care Rice Milling Supervisor Name Role Phone Elsewhere, Pcp Primary Care Provider Unavailabl e Encounter Details Date Type Department Care Team ([facility] st Contact Info) Description 02/19/2023 Orders Only Division of Nephrology and Hypertension, [facility], in [place], [place] [address] [place] [phone] Drew Mo, ORAL SURGERY PHYSICIAN, C.N.P., M.S.N. [address] [place] [phone] Social History Tobacco Use Types Packs/Day Years [...] on filedocumented in this encounter Care Teams Rice Milling Supervisor Relationship Specialty Start Date End Date Elsewhere, Pcp PCP - General Internal Medicine 02/04/23 documented as of this encounter
--- OUTSIDE RECORDS SUMMARY | 2023-05-20 09:45 | XMS_ITS | Encounter Summary ---
Author Name Unknown Organization [facility] Address [address] [place] [address] Care Team Providers Care Safety Risk Lead Name Role Phone None Reported, Pcp Primary Care Provider Unavail able Encounter Details Date Type Department Care Team ([facility] st Contact Info) Description 10/31/2022 Orders Only Division of Nephrology and Hypertension, [facility], in [place], [place] [address] [place] [phone] Drew Mo, METAL STAMPING MACHINE OPERATOR, C.N.P., M.S.N. [address] [place] [phone] Social History Tobacco Use Types Packs/Day Years [...] living situation today? I have a [facility] place to live 11/14/2022 Sex and Gender Information Value Date Recorded Sex Assigned at Male 11/14/2022 11:03 AM CDT Gender Identity Male 11/14/2022 11:03 AM CDT Sexual Orientation Straight 11/14/2022 11 :03 AM CDT documented as of this encounter Plan of Treatment Not on file documented as of this encounter Visit Diagnoses Not on filedocumented in this encounter Care Teams Safety Risk Lead Relationship Specialty Start Date End Date None Reported, Pcp PCP - General Family Medicine 07/28/22 02/03/23 documented as of this encounter
--- OUTSIDE RECORDS SUMMARY | 2023-05-20 09:45 | XMS_ITS | Encounter Summary ---
Author Name Unknown Organization [facility] Address [address] [place] [address] Care Team Providers Care Linen Sorter Name Role Phone None Reported, Pcp Primary Care Provider Unavail able Reason for Referral * Outpatient (Routine) - Authorized Specialty Diagnoses / Procedures Referred By Elianaac t Referred To Contact Diagnoses Spells Undifferentiated Syncope Vasovagal Procedures Autonomic reflex Screen Chan Herrera M.D., Ph.D. [address] [place] [phone] [facility] Referral ID Status Reason Start Date Expiration Date V isits Requested Visits Authorized [id number] Authorized 11/21/2022 11/21/2023 1 1 Reason for Visit * Outpatient (Routine) - Closed Specialty Diagnoses / Procedures Referred By Mel quiroz Referred To Contact Neurology Diagnoses Spells Undifferentiated Sundeep Barlow M.D. [address] [place] [phone] [facility] Referral ID Status Reason Start Date Expiration Date Visits Re quested Visits Authorized [id number] Closed 10/29/2022 10/28/2025 1 1 Encounter Details Date Type Department Care Team (Latest Contact Info) Description 11/21/2022 1:00 PM CDT Comprehensive Visit Department of Neurology in [place], [place] [address] [place] [phone] Chan Herrera M.D., Ph.D. [address] [place] [phone] Kimmie Undifferentiated (Primary Dx); Syncope Vasovagal Social History [...] your living situation today? I have a [facility] place to live 11/14/2022 Sex and [...] the impetus for him to move to [place]. He islooking forward to get in his life established in the [place]. 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 He completed a [...] on mom's side SOCIAL HISTORY Moved to [place] February of 2022. Currently lives alone in [place], [place]. Not employed but is planning to become a [employer] with goal of working at a memory care facility. Denies recent alcohol, tobacco, or other substance use. Is working on establishing a new life in the [place] after having previously lived in [facility]. REVIEW OF SYSTEMS Constitutional: - Negative [...] in arms or legs. - He has [id number] chronic headaches that are worse when he [...] in this patient which may be a drive away driver of his spells, I recommended autonomic [...] PGY-2 Resident Department of Neurology Pager # [phone] 11/21/22 Orders Placed This Encounter Procedures Autonomic reflex Screen documented in this encounter Plan of Treatment Scheduled Orders Name Type Priority Associated Diagnoses Orde r Schedule Autonomic reflex Screen Neurology Routine Spells Undifferentiated Syncope Vasovagal Expected: 11/21/2022 (Approximate), Expires: 02/22/2024 documented as of this encounter Visit Diagnoses Diagnosis Spells Undifferentiated- Primary Syncope Vasovagal documented in this encounter Care Teams Linen Sorter Relationship Specialty Start Date End Date None Reported, Pcp PCP - General Family Medicine 07/28/22 02/03/23 documented as of this encounter
--- OUTSIDE RECORDS SUMMARY | 2023-05-20 09:45 | XMS_ITS | Encounter Summary ---
Author Name Unknown Organization [facility] [place] [facility] Address [address] [place] [address] Care Team Providers Care Gym Manager Name Role Phone None Reported, Pcp Primary Care Provider Unavail able Encounter Details Date Type Department Care Team (Late st Contact Info) Description 11/12/2022 Orders Only Division of Nephrology and Hypertension in [place], [place] [address] [place] [phone] Concetta Mejía M.D., Ph.D. [address] [place] [phone] Social History Tobacco Use Types [...] your living situation today? I have a [facility] place to live 11/02/2022 Sex and Gender Information Value Date Recorded Sex Assigned at Male 11/14/2022 11:03 AM CDT Gender Identity Male 11/14/2022 11:03 AM CDT Sexual Orientation Straight 11/14/2022 11 :03 AM CDT documented as of this encounter Plan of Treatment Not on file documented as of this encounter Visit Diagnoses Not on filedocumented in this encounter Care Teams Gym Manager Relationship Specialty Start Date End Date None Reported, Pcp PCP - General Family Medicine 07/28/22 02/03/23 documented as of this encounter
--- OUTSIDE RECORDS SUMMARY | 2023-05-20 09:45 | XMS_ITS | Encounter Summary ---
Author Name Unknown Organization [facility] Address [address] [place] [address] Care Team Providers Care Creative Director Name Role Phone None Reported, Pcp Primary Care Provider Unavail able Reason for Visit * Outpatient (Routine) - Authorized Specialty Diagnoses / Procedures Referred By Mel t Referred To Contact Diagnoses Pain Chest Procedures NM Cardiac Perfusion Rest and Stress SPECT Drew Mo APRN C.N.P., M.S.N. 200 [place] [phone] [facility] Referral ID Status Reason Start Date Expiration Date V isits Requested Visits Authorized [id number] Authorized 07/11/2022 07/11/2023 6 6 Encounter Details Date Type Department Care Team (Latest Contact Info) Description 11/04/2022 9:47 AM CDT - 11/04/2022 11:59 PM CDT Hospital Encounter Department of Cardiovascular Diseases in [place], [place] [address] [place] [phone] Drew Mo APRN, C.N.P., M.S.N. [address] [place] [phone] Discharge Disposition: Home or Self Care Social [...] your living situation today? I have a [facility] place to live 11/02/2022 Sex and [...] Hand documented in this encounter Care Teams Creative Director Relationship Specialty Start Date End Date None Reported, Pcp PCP - General Family Medicine 07/28/22 02/03/23 documented as of this encounter
--- OUTSIDE RECORDS SUMMARY | 2023-05-20 09:45 | XMS_ITS | Encounter Summary ---
Author Name Unknown Organization [facility] Address [address] [place] [address] Care Team Providers Care Billing Spec Name Role Phone None Reported, Pcp Primary Care Provider Unavail able Reason for Referral * Outpatient (Routine) - Closed Specialty Diagnoses / Procedures Referred By Mel quiroz Referred To Contact Neurology Diagnoses Spells Undifferentiated Procedures EEG routine - awake and sleep Sundeep Barlow M.D. 200 [place] [phone] [facility] Referral ID Status Reason Start Date Expiration Date Visits Re quested Visits Authorized [id number] Closed 10/29/2022 10/29/2023 1 1 Reason for Visit * Outpatient (Routine) - Closed Specialty Diagnoses / Procedures Referred By eMl quiroz Referred To Contact Neurology Diagnoses Spells Undifferentiated Procedures EEG routine - awake and sleep Sundeep Barlow M.D. [address] [place] [phone] [facility] Referral ID Status Reason Start Date Expiration Date Visits Re quested Visits Authorized [id number] Closed 10/29/2022 10/29/2023 1 1 Encounter Details Date Type Department Care Team (Latest Contact Info) Description 11/20/2022 1:42 PM CDT - 11/20/2022 11:59 PM CDT Hospital Encounter Department of Neurology in [place], [place] [address] [place] [phone] Sundeep Barlow M.D. [address] [place] [phone] Kimmie Undifferentiated Discharge Disposition: Home or Self Care [...] living situation today? I have a [facility] place to live 11/14/2022 Sex and [...] Undifferentiated documented in this encounter Care Teams Billing Spec Relationship Specialty Start Date End Date None Reported, Pcp PCP - General Family Medicine 07/28/22 02/03/23 documented as of this encounter
--- OUTSIDE RECORDS SUMMARY | 2023-05-20 09:45 | XMS_ITS | Encounter Summary ---
Author Name Unknown Organization [facility] Address [address] [place] [address] Care Team Providers Care Marketing Director Assisted Living Name Role Phone None Reported, Pcp Primary Care Provider Unavail able Reason for Visit * Outpatient (Routine) - Authorized Specialty Diagnoses / Procedures Referred By Mel quiroz Referred To Contact Diagnoses Pain Chest Procedures NM Cardiac Perfusion Rest and Stress SPECT Drew Mo APRN C.N.P., M.S.N. 200 [place] [phone] [facility] Referral ID Status Reason Start Date Expiration Date V isits Requested Visits Authorized [id number] Authorized 07/11/2022 07/11/2023 6 6 Encounter Details Date Type Department Care Team (Latest Contact Info) Description 11/04/2022 8:28 AM CDT - 11/04/2022 9:46 AM CDT Hospital Encounter Department of Radiology in [place], [place] [address] [place] [phone] Drew Mo APRN, C.N.P., M.S.N. [address] [place] [phone] Discharge Disposition: Home or Self Care Social [...] a [facility] place [facility] live 11/02/2022 Sex and [...] For Result Drew Mo APRN, C.N.P., M.S.N. [facility] CV MERGE NA documented in this encounter Visit Diagnoses Not on filedocumented in this encounter Care Teams Marketing Director Assisted Living Relationship Specialty Start Date End Date None Reported, Pcp PCP - General Family Medicine 07/28/22 02/03/23 documented as of this encounter
--- OUTSIDE RECORDS SUMMARY | 2023-05-20 09:45 | XMS_ITS | Encounter Summary ---
Author Name Unknown Organization [facility] Address [address] [place] [address] Care Team Providers Care Theater Usher Name Role Phone None Reported, Pcp Primary Care Provider Unavail able Reason for Referral * Outpatient (Routine) - Authorized Specialty Diagnoses / Procedures Referred By Contac t Referred To Contact Diagnoses Pain Chest Procedures NM Cardiac Perfusion Rest and Stress SPECT Drew Mo APRN C.N.P., M.S.N. [address] [place] [phone] [facility] Referral ID Status Reason Start Date Expiration Date V isits Requested Visits Authorized [id number] Authorized 07/11/2022 07/11/2023 6 6 Reason for Visit * Outpatient (Routine) - Authorized Specialty Diagnoses / Procedures Referred By Contac t Referred To Contact Diagnoses Pain Chest Procedures NM Cardiac Perfusion Rest and Stress SPECT Drew Mo APRN, C.N.P., M.S.N. [address] [place] [phone] [facility] Region Referral ID Status Reason Start Date Expiration Date V isits Requested Visits Authorized [id number] Authorized 07/11/2022 07/11/2023 6 6 Encounter Details Date Type Department Care Team (Latest Contact Info) Description 11/04/2022 7:55 AM CDT - 11/04/2022 8:27 AM CDT Hospital Encounter Department of Radiology in [place], [place] [address] [place] [phone] Drew Mo, HALLE C.N.P., M.S.N. [address] [place] [phone] Pain Chest Discharge Disposition: Home or Self [...] your living situation today? I have a [facility] place to live 11/02/2022 Sex [...] CDT) 11/04/2022 9:48 AM CDT Narrative HILARY MALGORZATA - 11/04/2022 3:34 PM CDT See PDF For Result Procedure Note Rito Solomon M.D. - 11/04/2022 See PDF For Result Drew Mo APRN C.N.P., M.S.N. IMG NM P [facility] Performing Organization Address City/State/[facility] Co de Phone Number [employer] MALGORZATA NA documented in this encounter Visit [...] Hand documented in this encounter Care Teams Theater Usher Relationship Specialty Start Date End Date None Reported, Pcp PCP - General Family Medicine 07/28/22 02/03/23 documented as of this encounter
--- OUTSIDE RECORDS SUMMARY | 2023-05-20 09:45 | XMS_ITS | Encounter Summary ---
Author Name Unknown Organization [facility] Address [address] [place] [address] Care Team Providers Care Senior Dot Net Developer Name Role Phone None Reported, Pcp Primary Care Provider Unavail able Encounter Details Date Type Department Care Team ([facility] st Contact Info) Description 12/10/2022 Orders Only Division of Nephrology and Hypertension, [facility], in [place], [place] [address] [place] [phone] Drew Mo, HYDROPONICS WORKER, C.N.P., M.S.N. [address] [place] [phone] Social History Tobacco Use Types Packs/Day Years [...] your living situation today? I have a [facility] place to live 11/14/2022 Sex and Gender Information Value Date Recorded Sex Assigned at Male 11/14/2022 11:03 AM CDT Gender Identity Male 11/14/2022 11:03 AM CDT Sexual Orientation Straight 11/14/2022 11 :03 AM CDT documented as of this encounter Plan of Treatment Not on file documented as of this encounter Visit Diagnoses Not on filedocumented in this encounter Care Teams Senior Dot Net Developer Relationship Specialty Start Date End Date None Reported, Pcp PCP - General Family Medicine 07/28/22 02/03/23 documented as of this encounter
--- OUTSIDE RECORDS SUMMARY | 2023-05-20 09:45 | XMS_ITS | Encounter Summary ---
Author Name Unknown Organization [facility] Address [address] [place] [address] Care Team Providers Care Assistant Property Manager Name Role Phone None Reported, Pcp Primary Care Provider Unavail able Encounter Details Date Type Department Care Team ([facility] st Contact Info) Description 12/17/2022 Orders Only Division of Nephrology and Hypertension, [facility], in [place], [place] [address] [place] [phone] Drew Mo, METAL DIE FINISHER, C.N.P., M.S.N. [address] [place] [phone] Social History Tobacco Use Types Packs/Day Years [...] your living situation today? I have a [facility] place to live 11/14/2022 Sex and Gender Information Value Date Recorded Sex Assigned at Male 11/14/2022 11:03 AM CDT Gender Identity Male 11/14/2022 11:03 AM CDT Sexual Orientation Straight 11/14/2022 11 :03 AM CDT documented as of this encounter Plan of Treatment Not on file documented as of this encounter Visit Diagnoses Not on filedocumented in this encounter Care Teams Assistant Property Manager Relationship Specialty Start Date End Date None Reported, Pcp PCP - General Family Medicine 07/28/22 02/03/23 documented as of this encounter
--- OUTSIDE RECORDS SUMMARY | 2023-05-20 09:45 | XMS_ITS | Encounter Summary ---
Author Name Unknown Organization [facility] Address [address] [place] [address] Care Team Providers Care Devulcanizer Loader Name Role Phone None Reported, Pcp Primary Care Provider Unavail able Encounter Details Date Type Department Care Team (Late st Contact Info) Description 01/16/2023 Orders Only Division of Nephrology and Hypertension in [place], [place] [address] [place] [phone] Concetta Mejía M.D., Ph.D. [address] [place] [phone] Social History Tobacco Use Types [...] your living situation today? I have a [facility] place to live 11/14/2022 Sex and Gender Information Value Date Recorded Sex Assigned at Male 11/14/2022 11:03 AM CDT Gender Identity Male 11/14/2022 11:03 AM CDT Sexual Orientation Straight 11/14/2022 11 :03 AM CDT documented as of this encounter Plan of Treatment Not on file documented as of this encounter Visit Diagnoses Not on filedocumented in this encounter Care Teams Devulcanizer Loader Relationship Specialty Start Date End Date None Reported, Pcp PCP - General Family Medicine 07/28/22 02/03/23 documented as of this encounter
--- OUTSIDE RECORDS SUMMARY | 2023-05-20 09:45 | XMS_ITS | Encounter Summary ---
Author Name Unknown Organization [facility] Address [address] [place] [address] Care Team Providers Care Manager Background Name Role Phone Elsewhere, Pcp Primary Care Provider Unavailabl e Encounter Details Date Type Department Care Team (Late st Contact Info) Description 01/27/2023 Orders Only Division of Nephrology and Hypertension, [facility], in [place], [place] [address] [place] [phone] Drew Mo, COUNSELING CENTER MANAGER, C.N.P., M.S.N. [address] [place] [phone] Social History Tobacco Use Types Packs/Day Years [...] your living situation today? I have a [facility] place to live 11/14/2022 [...] documented as of this encounter Care Teams Manager Background Relationship Specialty Start Date End Date Elsewhere, Pcp PCP - General Internal Medicine 02/04/23 documented as of this encounter
--- OUTSIDE RECORDS SUMMARY | 2023-05-20 09:45 | XMS_ITS | Encounter Summary ---
Author Name Unknown Organization [facility] Address [address] [place] [address] Care Team Providers Care Director Of Surgery Name Role Phone None Reported, Pcp Primary Care Provider Unavail able Reason for Visit * Reason Onset Date Comments Txp Initial RN Phone Interview 10/30/2022 * Appointment Request (Routine) - Closed Specialty Diagnoses / Procedures Referred By Contac t Referred To Contact Transplant Diagnoses [id number] Please see [id number] for updated notes and approval. Procedures [id number]- Please see [id number] for updated notes and approval. [address] [phone] Referral ID Status Reason Start Date Expiration Date Visits Re quested Visits Authorized [id number] Closed 10/10/2022 10/10/2023 1 1 Encounter Details Date Type Department Care Team (Latest Contact Info) Description 10/30/2022 10:30 AM CDT Clinical Communication Maco ferreira [facility] in [place], [place] [address] [place] [phone] Jasmin Candelario RPenny [address] [place] [phone] Txp Initial RN Phone Interview Social History [...] Received/ Date in CE Outside Facility [] 9365 Form * [] Dialysis Run Sheets * Last 3 Runs [] [x] Colonoscopy with Pathology * Most Recent within 10 years [] 10/30 11/06 [place], [place] [phone] [] Pap Smear * Most Recent within [...] EGD w/Pathology Most Recent [] 10/30 11/06 [place], [place] [phone] Both 2017 and 2020 [x] History & Physical * [x] Physician Consultation * Last 12 Months [] 10/30 10/31 [place], [place] [phone] Will want records from 2020 when we underwent transplant eval [] Labs Last 3 (within 12 Months) [] [] Medication List Most Recent (within 12 Months) [] [] [facility] Biopsy Report [] Biopsy Slides Most Recent [] [] [facility] Pathology Report Most Recent [] [] Office Notes Last 12 Months [] [] Pathology Reports Most Recent [] [] Pulmonary Function Tests Last 12 Months [] [] Psycho-Social Assessments Last 12 Months [] [] Ultrasound [] Abdomen [] Renal Last 12 Months [] [] Vaccinations All [] Cardiac Testing:Will the patient see a Glove Brusher for Evaluation: YES If yes, Coronary Angiogram films & report needed. Last 5 years [] 10/30 10/31 [place], [place] [phone] Or [facility] [phone] [] Cardiac Stress Test Last 12 Months [...] to moderately controlled on 4 meds. H/o [place] [id number]. He has been in ED 9 times in last 4 months and notes do state noncompliance with meds. Will have cardiac workup at [facility] on 11/04/2022. Also patient is supposed to be on meds for seizures but stopped them after one month stating he ???didn't feel like they helped?? . Was worked up for transplant in [facility] but later denied d/t noncompliance with [...] Received/ Date in CE Outside Facility [] 2727 Form * [] Dialysis Run Sheets * Last 3 Runs [] [x] Colonoscopy with Pathology * Most Recent within 10 years [] [place], [place] [phone] [] Pap Smear * Most Recent within 3 years [] [] Mammogram * Most Recent [] [] Bladder Study Last 12 Months [] [] CT/MRI of: []Abdomen []Pelvis [] Chest [] Other: Last 12 Months [] [] Cystoscopy Last 12 Months [] [] Diagnostic Imaging Reports Last 12 Months [] [] Discharge Summaries Last 12 Months [] [x] EGD w/Pathology Most Recent [] [place], [place] [phone] Both 2017 and 2020 [x] History & Physical * [x] Physician Consultation * Last 12 Months [] [place], [place] [phone] Will want records from 2020 when we underwent transplant eval [] Labs Last 3 (within 12 Months) [] [] Medication List Most Recent (within 12 Months) [] [] [facility] Biopsy Report [] Biopsy Slides Most Recent [] [] [facility] Pathology Report Most Recent [] [] Office Notes Last 12 Months [] [] Pathology Reports Most Recent [] [] Pulmonary Function Tests Last 12 Months [] [] Psycho-Social Assessments Last 12 Months [] [] Ultrasound [] Abdomen [] Renal Last 12 Months [] [] Vaccinations All [] Cardiac Testing:Will the patient see a Glove Brusher for Evaluation: YES If yes, Coronary Angiogram films & report needed. Last 5 years [] [place], [place] [phone] Or [facility] [phone] [] Cardiac Stress Test Last 12 Months [...] Yes Informed of COVID vaccine recommendation: Yes Corporate Legal Manager Utilized: No Phone Screen Type: Kidney Completed [...] (Benefit check not needed for Medicare or [employer]) Do you know your GFR? Yes, GFR is on dialysis Allergies: Yes (add allergies in Epic) Bactrim/sulfa Allergy? No Previous Transplants? No Evaluated elsewhere? Yes Denied at outside facility denied for noncompliance (quit going to dialysis d/t depression in 2020) If Yes, where: [place] [facility] Currently Listed at another Transplant Center: No If yes: Center Name: Coordinator Name: Contact Number: Kidney History: Anuric: No Oliguric (decreased urine output): Yes Dialysis: Hemodialysis Dialysis Schedule Date Dialysis Started 2017 Dialysis Center [facility] -goes to all scheduled appts and completes in entirety unless in hospital and then dialyzes in hospital Kidney Stones: Yes thinks maybe had one one time in 10/2021, didn't go to doctor UTI History: No Diabetes History: NA Colonoscopy: Yes Facility [facility] Date 2017 due to ulcers EGD: Yes [facility] Date 2017 and 2020 Mammo: NA Pap: NA Cardiovascular History: HTN: Yes Moderately controlled on 4 meds [place]: Yes 2015 due to high blood pressure CVA/TIA: No CHF: Yes CAD: No CABG: No Arrhythmias: No Implanted Devices: No PVD: No Amputations: No Blood Clotting disorders: No DVT/PE: No Pt on Anticoagulation: No Additional cardiac testing? ECG CXR Where was the test performed? [facility] - will have more cardiac testing on 11/04/2022 [facility] History: Abdominal Aortic Aneurysm: No Abdominal [...] Information for Kidney, Kidney/Pancreas, andPancreas Transplant Candidates [id number] was reviewed with the patient via telephone call. Confirmed Salbador Justin's interest in pursuing a kidney transplant evaluation at [facility]. The patient verbalized understanding of the information and was given the opportunity to ask questions which were answered to Salbador Justin's satisfaction. Patient agrees to proceed with the transplant evaluation and consents to HIV testing. documented in this encounter Plan of Treatment Not on file documented as of this encounter Visit Diagnoses Not on filedocumented in this encounter Care Teams Director Of Surgery Relationship Specialty Start Date End Date None Reported, Pcp PCP - General Family Medicine 07/28/22 02/03/23 documented as of this encounter
--- OUTSIDE RECORDS SUMMARY | 2023-05-20 09:45 | XMS_ITS | Encounter Summary ---
Author Name Unknown Organization [facility] Address [address] [place] [address] Care Team Providers Care Factory Lay Out Engineer Name Role Phone None Reported, Pcp Primary Care Provider Unavail able Reason for Visit * Reason Comments Chest Pain * Outpatient (Routine) - Closed Specialty Diagnoses / Procedures Referred By Contact Referred To Contact Cardiovascular Diseases / Cardiovascular Disease Diagnoses Pain Chest Drew Mo APRN C.N.P., M.S.N. 200 [place] [phone] [facility] Referral ID Status Reason Start Date Expiration Date Visits Re quested Visits Authorized [id number] Closed 07/11/2022 07/11/2023 1 1 Encounter Details Date Type Department Care Team (Late st Contact Info) Description 11/06/2022 10:30 AM CDT Comprehensive Visit Department of Cardiovascular Diseases in [place], [place] [address] [place] [phone] Sergei Ibrahim M.D. 200 [place] [phone] Pain Chest Social History Tobacco Use Types [...] living situation today? I have a [facility] place to live 11/14/2022 Sex and [...] in this encounter Consult Notes * Sergei Ibrahmi M.D. - 11/06/2022 10:30 AM CDT REASON [...] understand that last February he moved to [place] from [facility] in the setting of a challenging social situation in [place]. He does have a history of uncontrolled [...] this. He is currently living alone in [place]. He does not have much social support here in [place] yet. He has access to health and social care teacher via dialysis and is planning to arrange [...] SOCIAL HISTORY Ms. Justin currently lives in [place], [place], by himself. He has historically worked [...] Sergei Ibrahim M.D. CT CT Job ID: [id number] documented in this encounter Plan of Treatment Not on file documented as of this encounter Visit Diagnoses Diagnosis Pain Chest documented in this encounter Care Teams Factory Lay Out Engineer Relationship Specialty Start Date End Date None Reported, Pcp PCP - General Family Medicine 07/28/22 02/03/23 documented as of this encounter
--- OUTSIDE RECORDS SUMMARY | 2023-05-20 09:45 | XMS_ITS | Encounter Summary ---
Author Name Unknown Organization [facility] Address [address] [place] [address] Care Team Providers Care Movie Producer Name Role Phone None Reported, Pcp Primary Care Provider Unavail able Encounter Details Date Type Department Care Team (Late st Contact Info) Description 01/14/2023 Orders Only Division of Nephrology and Hypertension in [place], [place] [address] [place] [phone] Concetta Mejía M.D., Ph.D. [address] [place] [phone] Social History Tobacco Use Types [...] on filedocumented in this encounter Care Teams Movie Producer Relationship Specialty Start Date End Date None Reported, Pcp PCP - General Family Medicine 07/28/22 02/03/23 documented as of this encounter
--- OUTSIDE RECORDS SUMMARY | 2023-05-20 09:45 | XMS_ITS | Encounter Summary ---
Author Name Unknown Organization [facility] Address [address] [place] [address] Care Team Providers Care Fabric Awning Repairer Name Role Phone None Reported, Pcp Primary Care Provider Unavail able Encounter Details Date Type Department Care Team (Late st Contact Info) Description 01/17/2023 Orders Only Division of Nephrology and Hypertension in [place], [place] [address] [place] [phone] Concetta Mejía M.D., Ph.D. [address] [place] [phone] Social History Tobacco Use Types [...] your living situation today? I have a [facility] place to live 11/14/2022 Sex and Gender Information Value Date Recorded Sex Assigned at Male 11/14/2022 11:03 AM CDT Gender Identity Male 11/14/2022 11:03 AM CDT Sexual Orientation Straight 11/14/2022 11 :03 AM CDT documented as of this encounter Plan of Treatment Not on file documented as of this encounter Visit Diagnoses Not on filedocumented in this encounter Care Teams Fabric Awning Repairer Relationship Specialty Start Date End Date None Reported, Pcp PCP - General Family Medicine 07/28/22 02/03/23 documented as of this encounter
--- OUTSIDE RECORDS SUMMARY | 2023-05-20 09:46 | XMS_ITS | Encounter Summary ---
Author Name Unknown Organization [facility] Address [address] [place] [address] Care Team Providers Care Petroleum Engineering Teacher Name Role Phone None Reported, Pcp Primary Care Provider Unavail able Reason for Visit * Reason Comments Chest Pain Vomiting Encounter Details Date Type Department Care Team ([facility] st Contact Info) Description 10/19/2022 3:40 AM CDT - 10/20/2022 3:22 PM CDT Emergency [facility], [facility] Fourth Floor [address] [place] [address] Josselin Balderas M.D., M.S. [address] [place] [phone] Johnnie Castillo M.D. [address] [place] [phone] Pain Chest (Primary Dx); Dyspnea; Failure Renal [...] No address on file Discharge Provider Team: Hospital Internal Medicine ([facility] Medicine ([facility]) Primary Care Provider Phone [...] UP Scheduled Appointments 11/04/2022 9:00 AM NM [facility] MOBILE Radiology 11/04/2022 10:00 AM CARDIOLOGY SUITE OW Cardiovascular Disease 11/04/2022 1:30 PM NM SEMN [...] via left AVF, STEMI (diagnosed 2016 in [place]), epilepsy(?) who presents to the emergency department [...] evaluated Salbador Justin today and provided counseling spei-ak-[id number] at bedside. I personally spent a total [...] this encounter Progress Notes * Sara Hernandez M.S.W. - 10/20/2022 10:43 AM CDT SUBJECTIVE Social work coordinated discharge transportation with [employer] [phone] for a 2:30 pm room leaf size picker time. OBJECTIVE Patient to discharge home. ASSESSMENT / PLAN ASSESSMENT Patient assessed in dialysis bay #9. It was determined that he qualifies for social work assistance. PLAN -patient to discharge home 10/20/22 Shama KlineS.Emelyn. 10/20/22 * Sameer Huggins, HALLE, C.N.P., M.S.N. - 10/20/2022 7:26 AM CDT [...] 66.5 kg 10/19/22 0632 66.5 kg I/O 10/18 0000 10/18 2359 10/19 0000 10/19 2359 10/20 0000 10/20 2359 P.O. 320 Continuous Medications 0 Intermittent Medications [...] next dialysis session will be in the [facility] unit on 10/22/2022. Discharge Recommendations: -- The [...] staffed with Dr. Angelia Skelton MD, Nephrology php consultant. For questions or concerns, please contact Nephrology A RIGGING SLINGER/PA pager ([phone]). * Isiah Shankar, Pharm.D., R.Ph. - 10/19/2022 10:44 AM CDT Clinical Pharmacist Progress Note: Patient is a 37 y.o. male admitted for chest pain. PMH: CHF with preserved EF due to HTN, ESRD due to HTN on HD via left AVF, [place] epilepsy(?) not on medications who presents [...] VTE prophylaxis: Heparin SUBQ Isiah Shankar PharmD, [facility] * Isiah Shankar, Pharm.D., R.Ph. - 10/19/2022 8:21 AM CDT Images from the original note were not included. Admission Medication History Note Prior to Admission Medications Med List Status: Pharmacy Complete Set By: Isiah Shankar, Pharm.D., R.Ph. at 10/19/2022 8:13 AM Status Comment 10/19/2022 8:13 AM Compared to [facility] outpatient pharmacy filling records Taking? Last Dose [...] M.D., Ph.D. - 10/19/2022 5:29 AM CDT [facility] Medicine 7 ([facility]) Admission Note SUBJECTIVE CHIEF COMPLAINT / REASON FOR VISIT Chest pain HISTORY OF PRESENT ILLNESS Salbador Justin is a 37 y.o. male with h/o CHF with preserved EF due to HTN, ESRD due to HTN on HD via left AVF, STEMI (diagnosed 2016 in [place]), epilepsy(?) not on medications who presents with [...] Fellow, Division of Gastroenterology and Hepatology Pager [phone] 10/19/2022 documented in this encounter Consult Notes [...] Friday, , and Friday schedule in the [facility] dialysis unit. His last dialysis session [...] staffed with Dr. Angelia Skelton MD, Nephrology php consultant. For questions or concerns, please contact Nephrology A RIGGING SLINGER/PA pager ([phone]). Associated attestation - Angelia Skelton M.D. - [...] AM CDT Care of patient transferred to ms by Dr. Balderas. Disposition pending admission. VITAL [...] the prescription. FridayMoon R.N. 10/19/22 0418 * Moon Nguyen R.N. - 10/19/2022 4:07 AM CDT Patient [...] via left AVF, STEMI (diagnosed 2016 in [place]), epilepsy(?) who presents to the emergency department [...] Antigen Scrn, S (10/20/2022 8:23 AM CDT) [facility] HBs Antigen Scrn, S Negative Negative 10/21/2022 1:40 PM CDT [facility] Blood (Blood, Venous) 10/20/2022 8:23 AM CDT 10/21/2022 7:21 AM CDT Antonieta Blanchard APRN.N.P., M.S.N. LAB MICROBIOLOGY - BLOOD ORDERABLES [facility] [address] [place] [address] [facility] [address] [place] [address] * HCV Ab w/Reflex to HCV PCR, Serum (10/20/2022 8:23 AM CDT) [facility] HCV Ab, S Negative Negative 10/21/2022 1:57 PM CDT [facility] Comment:[id number] rat io is <1.00. Blood (Blood, Venous) 10/20/2022 8:23 AM CDT 10/21/2022 7:21 AM CDT Sameer Huggins APRN, C.N.P., M.S.N. LAB MICROBIOLOGY - BLOOD ORDERABLES Performing Organization Address [facility] Co de Phone Number [facility] [address] [place] [address] [facility] [address] [place] [phone] * HBs Antibody Scrn, Serum (10/20/2022 8:23 AM CDT) [facility] HBs Antibody Scrn, S CANCELED 04/07/2023 11:32 AM HEAVY EQUIPMENT RENTAL MANAGER [facility] Comment: REVISED RESULTS This result was cancelled. Report is cancelled due to a vendor reagent quality issue. Retesting of a new specimen is recommended if clinically indicated. ----PREVIOUSLY REPORTED ---- Positive Patient is considered to be immune to infection with HBV., Flagged as: Normal (Reported 10/21/2022 13:38) HBs Antibody, Quantitative, S CANCELED mIU/mL 04/07/2023 11:33 AM HEAVY EQUIPMENT RENTAL MANAGER [facility] Comment: REVISED RESULTS ----PREVIOUSLY REPORTED ---- 17.1, Flagged as: N/A (Reported 10/21/2022 13:38) Blood (Blood, Venous) 10/20/2022 8:23 AM CDT 10/21/2022 7:35 AM CDT Kanchan Blanchard APRNNRashida., M.S.N. LAB MICROBIOLOGY - BLOOD ORDERABLES Performing Organization Address [facility] Co de Phone Number [facility] [address] [place] [address] [facility] [address] [place] [address] * HBc Total Ab Scrn, S (10/20/2022 8:23 AM CDT) Pathologist [facility] HBc Total Ab Scrn, S Negative Negative 10/21/2022 1:31 PM CDT [facility] Blood (Blood, Venous) 10/20/2022 8:23 AM CDT 10/21/2022 7:35 AM CDT Antonieta Blanchard APRN.N.Corrine, M.S.N. LAB MICROBIOLOGY - BLOOD ORDERABLES [facility] [address] [place] [address] [facility] [address] [place] [address] * Magnesium (10/20/2022 6:34 AM CDT) [facility] Magnesium, S 2.0 1.7 - 2.3 mg/dL 10/20/2022 8:02 AM CDT [facility] Blood (Blood, Venous) 10/20/2022 6:34 AM CDT 10/20/2022 7:31 AM CDT Chan Casanova APRN, C.N.P., D.N.P. LA B BLOOD ADD-ON Performing Organization Address City/[facility] Co de Phone Number [facility] [address] [place] [address], [facility] [address] [place] [address] * (ABNORMAL) Renal Function Panel (10/20/2022 6:34 AM CDT) Pathologist [facility] Potassium, S 4.3 3.6 - 5.2 [...] APRN, C.N.P., D.N.P. LA B BLOOD ADD-ON [facility] [address] [place] [address], [facility] [address] [place] [address] * (ABNORMAL) Troponin T, 2h/6h, 5th Gen [...] AM CDT 10/19/2022 7:02 AM CDT Narrative [facility] - 10/19/2022 7:29 AM CDT Specimen Information: Specimen ID: [id number] Specimen Type: Blood Specimen Collection Start Date: 10/19/2022 ??6:40 AM Specimen Received Date: 10/19/2022 ??7:02 AM Specimen ID: [id number] Specimen Type: Blood Marcos Garcia M.D. LAB BLOOD TRO PONIN Performing Organization Address City/[facility]/ZIP Co de Phone Number [facility] [address] STMA [facility] 200 [place] [address] * Sedimentation Rate (10/19/2022 4:48 AM CDT) Sedimentation Rate, B 2 2 - 12 mm/h 10/19/2022 5:58 AM CDT DTL Blood (Blood, Venous) 10/19/2022 4:48 AM CDT 10/19/2022 4:57 AM CDT Marcos Garcia M.D. LAB BLOOD ADD -ON Performing Organization Address City/[facility]/ZIP Co de Phone Number [facility] [address] DTL [facility] [address] [place] [address] * CRP (C-Reactive Protein) (10/19/2022 4:48 AM CDT) C-Reactive Protein (CRP), S 3.5 <5.0 mg/L 10/19/2022 5:24 AM CDT DTL Blood (Blood, Venous) 10/19/2022 4:48 AM CDT 10/19/2022 5:08 AM CDT Marcos Garcia M.D. LAB BLOOD ADD -ON [facility] [address] [place] [address], [facility] [address] [place] [address] * DX Chest AP or PA and [...] M.S.N. LAB BLOOD ADD-ON Performing Organization Address City/[facility]/ZIP Co de Phone Number [facility] 200 [place] [address], [facility] 200 [place] [address] * Phosphorus Inorganic (10/19/2022 4:46 AM CDT) Pathologist [facility] Phosphorus (Inorganic), S 3.4 2.5 - 4.5 mg/dL 10/19/2022 9:09 AM CDT DTL Blood (Blood, Venous) 10/19/2022 4:46 AM CDT 10/19/2022 8:53 AM CDT Sameer Huggins APRN, C.N.P., M.S.N. LAB BLOOD ADD-ON Performing Organization Address [facility] Co de Phone Number [facility] [address] [place] [address], [facility] [address] [place] [address] * (ABNORMAL) Troponin T, Baseline, 5th gen (10/19/2022 4:25 AM CDT) Troponin T, Baseline, 5th gen 78(H) <=15 ng/L 10/19/2022 4:50 AM CDT [facility] Blood (Blood, Venous) 10/19/2022 4:25 AM CDT 10/19/2022 4:30 AM CDT Marcos Garcia M.D. LAB BLOOD TRO PONIN [facility] [address] [place], [place] [address] 200 [place] [address] * (ABNORMAL) NT-Pro B-Type Natriuretic Peptide (BNP) (10/19/2022 4:25 AM CDT) Pathologist [facility] NT-Pro BNP 6551(H) <79 pg/mL 10/19/2022 4:58 AM CDT [facility] Comment: NT-proBNP values less than [...] Marcos Garcia M.D. LAB BLOOD ADD -ON [facility] [address] [place] [address], [facility] [address] [place] [address] * (ABNORMAL) Basic Metabolic Panel (10/19/2022 4:25 AM CDT) [facility] Potassium, P 5.2 3.6 - 5.2 mmol/L [...] Marcos Garcia M.D. LAB BLOOD ADD -ON [facility] [address] [place] [address], [facility] [address] [place] [address] * (ABNORMAL) CBC with Differential, Blood (10/19/2022 4:25 AM CDT) Pathologist [facility] Hemoglobin 13.4 13.2 - 16.6 g/dL 10/19/2022 [...] Marcos Garcia M.D. LAB BLOOD ADD -ON [facility] [address] [place] [address], [facility] [address] [place] [address] * ECG 12 Lead (10/19/2022 3:56 AM CDT) Ventricular Rate ECG/Min 114 BPM MUSE [place] Interval 144 ms MUSE QRSD Interval 88 ms MUSE QT Interval 336 ms MUSE QTC Interval 463 ms MUSE P Darragh 50 degrees MUSE R [place]arragh 68 degrees MUSE T Wave [place]agh 50 degrees MUSE 10/19/2022 3:56 AM CDT [...] dose 0500 (Given - Provider: Moon Krishnan Friday RJuan CNJuan C) lisinopriL tablet 20 mg (PRINIVIL,ZESTRIL) 20 mg, [...] dose 0459 (Given - Provider: Moon Krishnan Friday R.N.) pantoprazole DR tablet 40 mg (PROTONIX) [...] at 0921, Dialysis 1147 (Given - Provider: Jane Dhaliwal R.N.) sodium chloride 0.9 % injection 10-60 mL (CANCELED) 10-60 mL, intravenous, As needed, line care, To maintain line patency, Starting on 10/20/22 at 0811, Dialysis 0831 (Given - Provid er: Emilie Hernandes R.N.) traMADoL tablet 25 mg (ULTRAM) 25 mg, oral, Every 8 hours PRN, moderate pain or score 4-6 of 10, Starting on 10/19/22 at 0712, Restriction Criteria (Pharmacy will review and approve if criteria met): Use in adults 18 years and older documented in this encounter Care Teams Petroleum Engineering Teacher Relationship Specialty Start Date End Date None Reported, Pcp PCP - General Family Medicine 07/28/22 02/03/23 documented as of this encounter
--- OUTSIDE RECORDS SUMMARY | 2023-05-20 09:46 | XMS_ITS | Encounter Summary ---
Author Name Unknown Organization [facility] Address [address] [place] [address] Care Team Providers Care Shearing Machine Operator Name Role Phone None Reported, Pcp Primary Care Provider Unavail able Encounter Details Date Type Department Care Team (Late st Contact Info) Description 10/15/2022 Orders Only Division of Nephrology and Hypertension, [facility], in [place], [place] [address] [place] [phone] Drew Mo, GRAPHIC ENGINEER, C.N.P., M.S.N. [address] [place] [phone] Social History Tobacco Use Types Packs/Day Years [...] on filedocumented in this encounter Care Teams Shearing Machine Operator Relationship Specialty Start Date End Date None Reported, Pcp PCP - General Family Medicine 07/28/22 02/03/23 documented as of this encounter
--- OUTSIDE RECORDS SUMMARY | 2023-05-20 09:46 | XMS_ITS | Encounter Summary ---
Author Name Unknown Organization [facility] Address [address] [place] [address] Care Team Providers Care Dynamics Ax Developer Name Role Phone None Reported, Pcp Primary Care Provider Unavail able Reason for Referral * Outpatient (Routine) - Closed Specialty Diagnoses / Procedures Referred By Mel quiroz Referred To Contact Neurology Diagnoses Isaiass Undifferentiated Sundeep Barlow M.D. [address] [place] [phone] [facility] Referral ID Status Reason Start Date Expiration Date Visits Re quested Visits Authorized [id number] Closed 10/29/2022 10/28/2025 1 1 * Outpatient (Routine) - Closed Specialty Diagnoses / Procedures Referred By Mel quiroz Referred To Contact Neurology Diagnoses Kimmie Undifferentiated Procedures EEG routine - awake and sleep Sundeep Barlow M.D. [address] [place] [phone] [facility] Referral ID Status Reason Start Date Expiration Date Visits Re quested Visits Authorized [id number] Closed 10/29/2022 10/29/2023 1 1 Reason for Visit * Reason Comments Seizures Encounter Details Date Type Department Care Team ([facility] st Contact Info) Description 10/29/2022 1:15 AM CDT - 10/29/2022 2:28 PM CDT Emergency [facility] Emergency Department [address] [place] [phone] Yecenia Sanchez M.D., M.S. 200 [place] [phone] Jack Velazquez M.D., Ph.D. 200 [place] [address] Spells Neurological (HCC) (Primary Dx); Spells Undifferentiated; [...] to this Admission Follow up with a [place] provider: Clinic to decide Test Results Pending [...] a negative head CT. Georgia Estrada P.A.-C. 10/29/221342 documented in this encounter Discharge Instructions * Attachments The following attachments cannot be sent through Care Everywhere. * Chronic Kidney Disease: The Importance of Good Nutrition (Tanzanian) * Managing Non-Epileptic Seizures Adult (Tanzanian) documented in this encounter Medications at Time [...] self and reviewed role of the ED criminal justice social worker. Patient reported understanding and was agreeable to [...] supportive or dismissal needs arise. Cait Kumar M.S.W. 10/29/2022 * Georgia Estrada P.A.-C. - 10/29/2022 7:13 AM CDT Emergency Department Progress Note Assumed care of the patient. Interval History: Since last evaluation Mr. Justin has had Improvement of his headache. He is in observation awaiting dialysis. The Nephrology fellow has beenconsulted and orders will be placed by the nephrology team. Anticipate discharge after dialysis. Georgia Estrada P.A.-C. 10/29/22 0714 documented in this encounter H&P Notes * [...] child diagnosed when [facility] [place] He reportedly had an abnormal EEG at [...] seen for spells both by neurology at [facility] as well as by HIM here. I [...] an Emergency Neurology Consult note. Please contact [phone] for any questions. documented in this encounter [...] 10/29/2022. He reports he gets dialysis in [place] however the dialysis center does not have appointments for him to have a dialysis today andhe also has difficulty with transportation. We discussed the case with social work to try to help with transportation from the ED to his home in [place] as well as from his home to the dialysis center however at this time facilitating this transportation and trying to find an opening in the dialysis center is not possible. We discussed the case with nephrology customer care consultant who agreed for dialysis in the [...] or any substances. 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 Respiratory: Negative for chest tightness. Gastrointestinal: Positive for nausea. Negative for abdominal pain, constipation, diarrhea and vomiting. Neurological: Positive for seizures, weakness, light-headedness and headaches. OBJECTIVE Initial Vitals Temperature 10/29/224 36.7 ??C Pulse Rate 10/29/224 103 Heart Rate 10/29/22123 103 Resp Rate 07/04/23 0124 12 Blood Pressure 10/29/22 0124 (!) 152/92 SpO2 10/29/22 012 100 % Pain Score 10/29/22 012 10 - Worst possible pain PHYSICAL EXAMINATION [...] Stage (HCC) Sloane Ma M.D. Resident 10/29/22 9635 documented in this encounter Plan of Treatment [...] was unremarkable. Sundeep Barlow M.D. [facility]OLOG[facility]LES [facility] * CT Head without IV Contrast [...] findings. Georgia Estrada P.A.-C., M.S. IMG CT GA OCEDURES * HBs Antigen Scrn, S (10/29/2022 8:17 AM CDT) HBs Antigen Scrn, S Negative Negative 10/30/2022 11:22 AM CDT [facility] Blood (Blood, Venous) 10/29/2022 8:17 AM CDT 10/30/2022 7:31 AM CDT Jennifer Chaney M.D., Ph.D. LAB MICROBIOL OGY - BLOOD ORDERABLES [facility] [address] [place] [address] [facility] [address] [place] [address] * HCV Ab w/Reflex to HCV PCR, Serum (10/29/2022 8:17 AM CDT) HCV Ab, S Negative Negative 10/30/2022 11:39 AM CDT [facility] Comment:Hwdztk-ma-lvnlhn rat io is <1.00. Blood (Blood, Venous) 10/29/2022 8:17 AM CDT 10/30/2022 7:31 AM CDT Jennifer Chaney M.D., Ph.D. LAB MICROBIOL OGY - BLOOD ORDERABLES [facility] [address] [place] [address] [place] [address] * HBs Antibody Scrn, Serum (10/29/2022 8:17 AM CDT) Pathologist [facility] HBs Antibody Scrn, S CANCELED 04/08/2023 11:02 AM OFFICE MACHINE REPAIR SHOP SUPERVISOR [facility] Comment: REVISED RESULTS This result was cancelled. Report is cancelled due to a vendor reagent quality issue. Retesting of a new specimen is recommended if clinically indicated. ----PREVIOUSLY REPORTED ---- Positive Patient is considered to be immune to infection with HBV., Flagged as: Normal (Reported 10/30/2022 11:40) HBs Antibody, Quantitative, S CANCELED mIU/mL 04/08/2023 11:02 AM OFFICE MACHINE REPAIR SHOP SUPERVISOR [facility] Comment: REVISED RESULTS ----PREVIOUSLY REPORTED ---- 16.5, Flagged as: N/A (Reported 10/30/2022 11:40) Blood (Blood, Venous) 10/29/2022 8:17 AM CDT 10/30/2022 7:31 AM CDT Jennifer Chaney M.D., Ph.D. LAB MICROBIOL OGY - BLOOD ORDERABLES Performing Organization Address [facility] Co de Phone Number [facility] [address] [place] [address] [facility] [address] [place] [address] * HBc Total Ab Scrn, S (10/29/2022 8:17 AM CDT) [facility] HBc Total Ab Scrn, S Negative Negative 10/30/2022 11:39 AM CDT [facility] Blood (Blood, Venous) 10/29/2022 8:17 AM CDT 10/30/2022 7:31 AM CDT Jennifer Chaney M.D., Ph.D. LAB MICROBIOL OGY - BLOOD ORDERABLES Performing Organization Address [facility] Co de Phone Number [facility] [address] [place] [address] [facility] [address] [place] [address] * Lactate, POCT (10/29/2022 4:22 AM CDT) [facility] Lactate, POCT 0.71 0.50 - 2.20 mmol/L 10/29/2022 6:17 AM CDT [facility] Blood (Blood, Venous) 10/29/2022 4:22 AM CDT 10/29/2022 4:22 AM CDT Sloane Ma M.D. LAB POCT ORDERABLES - DEVICE Performing Organization Address City/[facility] Co de Phone Number [facility] [address] [place] [address], [facility] PCLX [facility] POC [address] [place] [address] * Phosphorus Inorganic (10/29/2022 3:24 AM CDT) [facility] Phosphorus (Inorganic), S 4.5 2.5 - 4.5 mg/dL 10/29/2022 3:57 AM CDT [facility] Blood (Blood, Venous) 10/29/2022 3:24 AM CDT 10/29/2022 3:45 AM CDT Carlos Canseco M.D. LAB BLOOD ADD-ON Performing Organization Address City/[facility]/ZIP Co de Phone Number [facility] 200 [place] [address], [facility] 200 [place] [address] * (ABNORMAL) Magnesium (10/29/2022 3:24 AM CDT) Pathologist [facility] Magnesium, S 2.7(H) 1.7 - 2.3 mg/dL 10/29/2022 3:57 AM CDT [facility] Blood (Blood, Venous) 10/29/2022 3:24 AM CDT 10/29/2022 3:45 AM CDT Carlos Canseco M.D. LAB BLOOD ADD-ON Performing Organization Address [facility] Co de Phone Number [facility] 200 [place] [address], [facility] 200 [place] [address] * ECG 12 Lead (10/29/2022 3:05 AM CDT) [facility] Ventricular Rate ECG/Min 101 BPM MUSE [place] Interval 152 ms MUSE QRSD Interval 106 ms MUSE QT Interval 346 ms MUSE QTC Interval 448 ms MUSE P [place] 58 degrees MUSE R [place] 77 degrees MUSE T Wave [place] 58 degrees MUSE 10/29/2022 3:05 AM CDT [...] Basic Metabolic Panel (10/29/2022 1:40 AM CDT) Pathologist [facility] Potassium, P 5.1 3.6 - 5.2 mmol/L [...] CDT Sloane Ma M.D. LAB BLOOD ADD-ON [facility] 200 [place] [address], [facility] DTL [facility] 200 [place] [address] * (ABNORMAL) CBC without Differential (10/29/2022 1:40 [...] CDT Sloane Ma M.D. LAB BLOOD ADD-ON [facility] [address] [place] [address], [facility] STMA [facility] 200 [place] [address] documented in this encounter Visit Diagnoses Diagnosis [...] 0306 (Given - Provid er: Kenny Delgado R.N.) amLODIPine tablet 10 mg (NORVASC) 10 mg, oral, Daily, First dose on Fri10/29/22 at 0900 1207 (Given - Provid er: Kylah Lockwood R.N., CCRN - Comment: Held for dialysis) calcium [...] 0503 (Given - Provid er: Kenny Delgado RJuan CNJuan C) hydrALAZINE tablet 50 mg (APRESOLINE) 50 mg, oral, 2 times daily, First dose on Fri10/29/22 at 0900 1208 (Given - Provid er: Kylah Lockwood R.N., CCRN - Comment: Held for dialysis) LORazepam tablet 0.5 mg (ATIVAN) (COMPLETED) 0.5 mg, oral, Once, On Fri10/29/22 at 0812, For 1 dose 0819 (Given - Provid er: Gene Blackwell R.N.) minoxidiL tablet 10 mg (LONITEN) 10 [...] R.N.) documented in this encounter Care Teams Dynamics Ax Developer Relationship Specialty Start Date End Date None Reported, Pcp PCP - General Family Medicine 07/28/22 02/03/23 documented as of this encounter
--- OUTSIDE RECORDS SUMMARY | 2023-05-20 09:46 | XMS_ITS | Encounter Summary ---
Author Name Unknown Organization [facility] Address [address] [place] [address] Care Team Providers Care Fashion Director Party Plan Sales Name Role Phone None Reported, Pcp Primary Care Provider Unavail able Reason for Visit * Reason Comments Chest Pain Encounter Details Date Type Department Care Team ([facility] st Contact Info) Description 10/08/2022 8:32 AM CDT - 10/08/2022 7:31 PM CDT Emergency [facility] Emergency Department [address] [place] [phone] Haresh Conroy PMarlon [address] [place] [phone] Pain Chest Atypical (Primary Dx); Shortness Of [...] Care Everywhere. * Nonspecific Chest Pain Adult (Kyrgyz) documented in this encounter Medications at Time [...] are 1. Patient will be dialyzed in [place] and after dialysis will be re-evaluated by [...] TO CARDIOLOGY CARDIOLOGY CONSULT NOTE ED Requesting Software Computer Specialist: Haresh Conroy PA-C Cardiology Collaborating Software Computer Specialist: Dr. Madison MD CHIEF COMPLAINT/REASON FOR VISIT Chest Pain HISTORY OF PRESENT ILLNESS Mr. Justin is a 37 y.o. male who is being evaluated in the ED for chest pain that started abruptly at 0200 this morning. He has medical comorbidities including, but not limited to, ESRD secondary to hypertension, congestive heart failure (diagnosed in [facility]), STEMI in 2016 (diagnosed in [facility]), and epilepsy. He states while he was [...] will be discharged home. Exam completed by CHRIS Vizcarra Student, under the supervision of Regina Rosales [...] cardiac MRI Please page Regina Rosales - [phone] for any questions. Regina Rosales APRN, C.N.P. 10/08/22 documented in this encounter ED Notes * Carla Schroeder R.N. - 10/08/2022 9:30 AM CDT Pt arrives to [place] [address] via EMS from dialysis with complaints of [...] no mass, no Che-Acosta's sign and no Bernabe's sign. There is no abdominal tenderness. There [...] 1. Patient will be dialyzed in [facility] after dialysis will be re-evaluated by Cardiology [...] every day language. Patient be admitted to [place] for dialysis, bedside ultrasound and plan/disposition be pending Cardiology recommendations. [place] handoff was completed with provider and center [...] has an attitude and we do not skein dyer anyone. My job is to provide great [...] ECHO DOPPLER COLOR (10/08/2022 2:51 PM CDT) [facility] Ejection Fraction 68 MC CV EIMS LV [...] Antigen Scrn, S (10/08/2022 2:27 PM CDT) Pathologist [facility] HBs Antigen Scrn, S Negative Negative 10/08/2022 10:[address] [facility] Blood (Blood, Venous) 10/08/2022 2:27 PM CDT 10/08/2022 5:13 PM CDT Mimi Springer M.D. LAB MICROBIOL OGY - BLOOD ORDERABLES Performing Organization Address City/[facility]/ZIP Co de Phone Number [facility] [address] [place] [address] [facility] [address] [place] [address] * HCV Ab w/Reflex to HCV PCR, Serum (10/08/2022 2:27 PM CDT) HCV Ab, S Negative Negative 10/08/2022 10:[address] [facility] Comment:Xgjyvz-sb-ukjuup rat io is <1.00. Blood (Blood, Venous) 10/08/2022 2:27 PM CDT 10/08/2022 5:13 PM CDT Mimi Springer M.D. LAB MICROBIOL OGY - BLOOD ORDERABLES [facility] [address] [place] [address] [facility] [address] [place] [address] * HBs Antibody Scrn, Serum (10/08/2022 2:27 PM CDT) HBs Antibody Scrn, S CANCELED 04/08/2023 11:59 [address]LECOMM[address]ICATIONS OFFICER [facility] Comment: REVISED RESULTS This result was cancelled. Report is cancelled due to a vendor reagent quality issue. Retesting of a new specimen is recommended if clinically indicated. ----PREVIOUSLY REPORTED ---- Positive Patient is considered to be immune to infection with HBV., Flagged as: Normal (Reported 10/08/2022 22:31) HBs Antibody, Quantitative, S CANCELED mIU/mL 04/08/2023 11:59 [address]COMM[address]ICATIONS OFF[address]ER [facility] Comment: REVISED RESULTS ----PREVIOUSLY REPORTED ---- 14.6, Flagged as: N/A (Reported 10/08/2022 22:31) Blood (Blood, Venous) 10/08/2022 2:27 PM CDT 10/08/2022 5:13 PM CDT Mimi Springer M.D. LAB MICROBIOL OGY - BLOOD ORDERABLES [facility] [address] [place] [address] [facility] [address] [place] [address] * HBc Total Ab Scrn, S (10/08/2022 2:27 PM CDT) Pathologist [facility] HBc Total Ab Scrn, S Negative Negative 10/08/2022 10:[address] [facility] Blood (Blood, Venous) 10/08/2022 2:27 PM CDT 10/08/2022 5:13 PM CDT Mimi Springer M.D. LAB MICROBIOL OGY - BLOOD ORDERABLES [facility] [address] [place] [address] [facility] [address] [place] [address] * CRP (C-Reactive Protein) (10/08/2022 2:27 PM CDT) C-Reactive Protein (CRP), S <3.0 <5.0 mg/L 10/08/2022 3:18 PM CDT [facility] Blood (Blood, Venous) 10/08/2022 2:27 PM CDT 10/08/2022 2:57 PM CDT Haresh Conroy P.A.-C. LAB BLOOD ADD-ON [facility] [place] [address] [place] [address], [facility] [address] [place] [address] * (ABNORMAL) Troponin T, 2h/6h, 5th Gen (10/08/2022 11:01 AM CDT) Pathologist [facility] Troponin T, 2 hr, 5th gen 91(H) [...] AM CDT 10/08/2022 11:05 AM CDT Narrative [facility] [place] - 10/08/2022 11:26 AM CDT Specimen Information: Specimen ID: [id number] Specimen Type: Blood Specimen Collection Start Date: 10/08/2022 11:01 AM Specimen Received Date: 10/08/2022 11:05 AM Specimen ID: [id number] Specimen Type: Blood Specimen Collection Start Date: 10/08/2022 11:26 AM Specimen Received Date: 10/08/2022 11:26 AM Haresh Conroy P.A.-C. LAB BLOOD TROPON IN Performing Organization Address [facility] Co de Phone Number [facility] [place] [address] [place] [address], [facility] [address] [place] [address] * ECG 12 Lead (10/08/2022 10:57 AM CDT) Ventricular Rate ECG/Min 104 BPM MUSE [place] Interval 142 ms MUSE QRSD Interval 98 ms MUSE QT Interval 364 ms MUSE QTC Interval 478 ms MUSE P [place] 50 degrees MUSE R [place] 59 degrees MUSE T Wave [place] 62 degrees MUSE 10/08/2022 10:5 7 AM [...] Conroy P.A.-C. ECG ORDERABLES Performing Organization Address [facility] Co de Phone Number MUSE NA [...] the basal and mid-cavitary ventricular septum (to prqevlcwz24 mm). While findings may be seen in [...] Anatomical Region Laterality Modality Head, Neuroradiology RST [facility] , [facility], Neur[facility]iology [facility] N/A Computed Tomography, Compute d Tomography [...] BLOOD NON AD D-ON Performing Organization Address [facility]/ZIP Co de Phone Number [facility] [place] [address] [place] [address], [facility] STMA [facility] [address] [place] [address] * (ABNORMAL) Magnesium (10/08/2022 9:01 AM CDT) Magnesium, S 2.4(H) 1.7 - 2.3 mg/dL 10/08/2022 10:09 AM CDT [facility] Blood (Blood, Venous) 10/08/2022 9:01 AM CDT 10/08/2022 9:44 AM CDT Haresh Conroy P.A.-C. LAB BLOOD ADD-ON Performing Organization Address [facility] Co de Phone Number [facility] [place] [address] [place] [address], [facility] [address] [place] [address] * Prothrombin Time (PT) (10/08/2022 9:01 AM [...] P.A.-C. LAB BLOOD ADD-ON Performing Organization Address City/[facility]/ZIP Co de Phone Number [facility] [place] [address] [place] [address], [facility] [address] [place] [address] * (ABNORMAL) Troponin T, Baseline, 5th gen (10/08/2022 9:01 AM CDT) Troponin T, Baseline, 5th gen 93(H) <=15 ng/L 10/08/2022 10:48 AM CDT [facility] Blood (Blood, Venous) 10/08/2022 9:01 AM CDT 10/08/2022 9:07 AM CDT Haresh Conroy P.A.-C. LAB BLOOD TROPON IN Performing Organization Address City/[facility]/ZIP Co de Phone Number [facility] [place] [address] [place] [address], [facility] [address] [place] [address] * Lipase (10/08/2022 9:01 AM CDT) Lipase, S 52 13 - 60 U/L 10/08/2022 10:09 AM CDT [facility] Blood (Blood, Venous) 10/08/2022 9:01 AM CDT 10/08/2022 9:44 AM CDT Haresh Conroy P.A.-C. LAB BLOOD ADD-ON Performing Organization Address City/[facility]/ZIP Co de Phone Number [facility] [place] [address] [place] [address], [place] [address] * Hepatic Function Panel (10/08/2022 9:01 AM [...] CDT Haresh Conroy P.A.-C. LAB BLOOD ADD-ON [facility] [place] [address] [place] [address], [facility] [address] [place] [address] * (ABNORMAL) Basic Metabolic Panel (10/08/2022 9:01 [...] P.A.-C. LAB BLOOD ADD-ON Performing Organization Address City/[facility]/ZIP Co de Phone Number [facility] [place] [address] [place] [address], [facility] [address] [place] [address] * Blood Gas without Coox, Venous (10/08/2022 9:01 AM CDT) pO2, Venous 67 Not applicable mm Hg [...] Conroy P.A.-C. LAB BLOOD NON AD D-ON [facility] [place] [address] [place] [address], [facility] STMA [facility] [address] [place] [address] * (ABNORMAL) CBC with Differential, Blood (10/08/2022 [...] P.A.-C. LAB BLOOD ADD-ON Performing Organization Address City/[facility]/ZIP Co de Phone Number [facility] [address] [place] [address], [facility] [address] [place] [address] * ECG 12 Lead (10/08/2022 8:47 AM CDT) Ventricular Rate ECG/Min 103 BPM MUSE [place] Interval 138 ms MUSE QRSD Interval 90 ms MUSE QT Interval 366 ms MUSE QTC Interval 479 ms MUSE P [place] 55 degrees MUSE R [place] 98 degrees MUSE T Wave [place] 56 degrees MUSE 10/08/2022 8:47 AM CDT [...] Laney Matute R.N.) PRN Medication Order 10/06/2022 10/07/2022 10/08/2022 iohexoL 350 mg iodine/mL solution 1-200 mL (OMNIPAQUE) (COMPLETED) 1-200 mL, intravenous, Once in imaging, contrast, Starting on Fri10/08/22 at 1021, For 1 dose, Imaging Protocol Orders, Dose per Radiant Medication Guidelines 1024 (Given - Provid er: Laney Matute, R.N.) nitroglycerin SL tablet 0.4 mg (NITROSTAT) [...] Dialysis 1500 (Given - Provid er: Mandy Hart R.N.) Linked Groups Order Group 1: ondansetron [...] obtained. documented in this encounter Care Teams Fashion Director Party Plan Sales Relationship Specialty Start Date End Date None Reported, Pcp PCP - General Family Medicine 07/28/22 02/03/23 documented as of this encounter
--- OUTSIDE RECORDS SUMMARY | 2023-05-20 09:46 | XMS_ITS | Encounter Summary ---
Author Name Unknown Organization [facility] Address [address] [place] [address] Care Team Providers Care Lacer And Tier Name Role Phone None Reported, Pcp Primary Care Provider Unavail able Encounter Details Date Type Department Care Team (Latest Contact Info) Description 10/16/2022 Clinical Communication [facility] [place], [place] [address] [place] [address] Teresita Calix M.D. [address] [place] [address] Social History Tobacco Use Types Packs/Day Years [...] on filedocumented in this encounter Care Teams Lacer And Tier Relationship Specialty Start Date End Date None Reported, Pcp PCP - General Family Medicine 07/28/22 02/03/23 documented as of this encounter
--- OUTSIDE RECORDS SUMMARY | 2023-05-20 09:46 | XMS_ITS | Encounter Summary ---
Author Name Unknown Organization [facility] Address [address] [place] [address] Care Team Providers Care Forestry Fire Aid Name Role Phone None Reported, Pcp Primary Care Provider Unavail able Encounter Details Date Type Department Care Team (Late st Contact Info) Description 10/08/2022 Orders Only Division of Nephrology and Hypertension in [place], [place] [address] [place] [address] Mimi Springer M.D. [address] [place] [phone] Social History Tobacco Use Types Packs/Day Years [...] on filedocumented in this encounter Care Teams Forestry Fire Aid Relationship Specialty Start Date End Date None Reported, Pcp PCP - General Family Medicine 07/28/22 02/03/23 documented as of this encounter
--- OUTSIDE RECORDS SUMMARY | 2023-05-20 09:46 | XMS_ITS | Encounter Summary ---
Author Name Unknown Organization [facility] Address [address] [place] [address] Care Team Providers Care Community Relations Police Lieutenant Name Role Phone None Reported, Pcp Primary Care Provider Unavail able Encounter Details Date Type Department Care Team (Late st Contact Info) Description 09/24/2022 Clinical Communication Department of Radiology in [place], [place] [address] [phone] [place] [address] [address] [address] Social History Tobacco Use Types Packs/Day Years [...] filedocumented in this encounter Care Teams Community Relations Police Lieutenant Relationship Specialty Start Date End Date None Reported, Pcp PCP - General Family Medicine 07/28/22 02/03/23 documented as of this encounter
--- OUTSIDE RECORDS SUMMARY | 2023-05-20 09:47 | XMS_ITS | Clinical Summary ---
Author Name Unknown Organization [facility] Address [place], [place] [address] Care Team Providers Care Millwright Supervisor Name Role Phone Pcp, No Primary Care [...] Comments Blood Pressure 175/96 03/20/2022 7:24 PM AIRCRAFT DESIGN ENGINEER Pulse 98 03/20/2022 7:24 PM AIRCRAFT DESIGN ENGINEER Temperature 37.2 ??C (99 ??F) 03/20/2022 7:24 PM AIRCRAFT DESIGN ENGINEER Respiratory Rate 16 03/20/2022 7:24 PM AIRCRAFT DESIGN ENGINEER Oxygen Saturation 99% 03/20/2022 7:24 PM AIRCRAFT DESIGN ENGINEER Inhaled Oxygen Concentration - - Weight 70.5 kg (155 lb 8 oz) 03/20/2022 7:24 PM AIRCRAFT DESIGN ENGINEER Height 165.1 cm (5' 5) 03/20/2022 7:24 PM AIRCRAFT DESIGN ENGINEER Body Mass Index 25.88 03/20/2022 7:24 PM AIRCRAFT DESIGN ENGINEER Plan of Treatment Not on file Care Teams Millwright Supervisor Relationship Specialty Start Date End Date Pcp, No . PCP - General 03/20/22
--- OUTSIDE RECORDS SUMMARY | 2023-05-20 09:47 | XMS_ITS | Encounter Summary ---
Author Name Unknown Organization [facility] Address [address] [place] [address] Care Team Providers Care Electrophysiologist Name Role Phone Unavailable Primary Care Provider Unavailabl e Encounter Details Date Type Department Care Team (Latest Contact Info) Description 06/28/2022 Clinical Communication [facility] in [place], [place] [address] [place] [address] Fanta Nicolas, HOTEL BREAKFAST ATTENDANT, C.N.P., D.N.P. [address] [place] [address] Social History Tobacco Use Types Packs/Day Years [...]
--- OUTSIDE RECORDS SUMMARY | 2023-05-20 09:47 | XMS_ITS | Encounter Summary ---
Author Name Unknown Organization [facility] Address [address] [place] [address] Care Team Providers Care Irrigation Teacher Name Role Phone Unavailable Primary Care Provider Unavailabl e Encounter Details Date Type Department Care Team (Late st Contact Info) Description 07/18/2022 Orders Only Division of Nephrology and Hypertension in [place], [place] [address] [place] [address] Concetta Mejía M.D., Ph.D. [address] [place] [phone] Social History Tobacco Use Types Packs/Day Years [...]
--- OUTSIDE RECORDS SUMMARY | 2023-05-20 09:47 | XMS_ITS | Encounter Summary ---
Author Name Unknown Organization [facility] Address [address] [place] [address] Care Team Providers Care Snack Foods Mixer Operator Name Role Phone Unavailable Primary Care Provider Unavailabl e Encounter Details Date Type Department Care Team (Late st Contact Info) Description 07/10/2022 Orders Only Division of Nephrology and Hypertension, [facility], in [place], [place] [address] [place] [phone] Drew Mo, HALLE, C.N.P., M.S.N. [address] [place] [phone] Other Chest Pain (Primary Dx) Social History [...]
--- OUTSIDE RECORDS SUMMARY | 2023-05-20 09:47 | XMS_ITS | Encounter Summary ---
Author Name Unknown Organization [facility] Address [address] [place] [address] Care Team Providers Care Cutter Out Name Role Phone None Reported, Pcp Primary Care Provider Unavail able Encounter Details Date Type Department Care Team (Late st Contact Info) Description 09/05/2022 Orders Only Division of Nephrology and Hypertension in [place], [place] [address] [place] [address] Concetta Mejía M.D., Ph.D. [address] [place] [phone] Social History Tobacco Use Types Packs/Day Years [...] on filedocumented in this encounter Care Teams Cutter Out Relationship Specialty Start Date End Date None Reported, Pcp PCP - General Family Medicine 07/28/22 02/03/23 documented as of this encounter
--- OUTSIDE RECORDS SUMMARY | 2023-05-20 09:47 | XMS_ITS | Encounter Summary ---
Author Name Unknown Organization [facility] Address [address] [place] [address] Care Team Providers Care Invoice Machine Operator Name Role Phone None Reported, Pcp Primary Care Provider Unavail able Encounter Details Date Type Department Care Team (Late st Contact Info) Description 09/03/2022 Orders Only Division of Nephrology and Hypertension in [place], [place] [address] [place] [address] Concetta Mejía M.D., Ph.D. [address] [place] [phone] Social History Tobacco Use Types Packs/Day Years [...] on filedocumented in this encounter Care Teams Invoice Machine Operator Relationship Specialty Start Date End Date None Reported, Pcp PCP - General Family Medicine 07/28/22 02/03/23 documented as of this encounter
--- OUTSIDE RECORDS SUMMARY | 2023-05-20 09:47 | XMS_ITS | Encounter Summary ---
Author Name Unknown Organization [facility] Address [address] [place] [address] Care Team Providers Care Pet Feeder Name Role Phone Unavailable Primary Care Provider Unavailabl e Encounter Details Date Type Department Care Team (Late st Contact Info) Description 07/18/2022 Orders Only Division of Nephrology and Hypertension in [place], [place] [address] [place] [address] Concetta Mejía M.D., Ph.D. [address] [place] [phone] Social History Tobacco Use Types Packs/Day Years [...]
--- OUTSIDE RECORDS SUMMARY | 2023-05-20 09:47 | XMS_ITS | Encounter Summary ---
Author Name Unknown Organization [facility] Address [address] [place] [address] Care Team Providers Care Photo Mask Cleaner Name Role Phone Unavailable Primary Care Provider Unavailabl e Encounter Details Date Type Department Care Team (Late st Contact Info) Description 06/27/2022 Orders Only Division of Nephrology and Hypertension, [facility], in [place], [place] [address] [place] [address] Drew Mo, HALLE, C.N.P., M.S.N. [address] [place] [address] Social History Tobacco Use Types Packs/Day Years [...]
--- OUTSIDE RECORDS SUMMARY | 2023-05-20 09:47 | XMS_ITS | Encounter Summary ---
Author Name Unknown Organization [facility] Address [address] [place] [address] Care Team Providers Care State Editor Name Role Phone None Reported, Pcp Primary Care Provider Unavail able Reason for Visit * Reason Comments Hypertension Encounter Details Date Type Department Care Team (Latest Contact Info) Description 07/28/2022 7:20 PM CDT - 07/30/2022 3:00 PM CDT Hospital Encounter [facility], [facility], [facility], Second floor [address] [place] [phone] Diane Fregoso M.D., M.B.A. [address] [place] [phone] Mikey Orta M.D. [address] [place] [phone] Joaquin Luz P.A.-C., M.S. [address] [place] [address] [place] [address] Failure Renal End Stage (HCC) [...] CDT DISCHARGE SUMMARY BRIEF OVERVIEW Discharge Hospital: [facility] Discharge Provider: Mikey Orta M.D. Discharge Provider Team: Hospital Internal Medicine ([facility]) - [facility] Medicine ([facility]) Primary Care Providers: None Reported, Pcp [...] MOBILE Radiology 08/16/2022 7:50 AM LAB 01 [facility] Laboratory Medicine 08/16/2022 8:00 AM DX [facility] RM 01 Radiology 08/16/2022 8:30 AM Sergei Ibrahim M.D. Cardiovascular Disease For appointment details refer to your Patient Appointment Guide. TEST RESULTS PENDING AT DISCHARGE Pending Labs None DETAILS OF HOSPITAL STAY REASON FOR ADMISSION Excess Fluid Volume HOSPITAL COURSE Mr. Justin is a 36-year-old male with end-stage renal disease on hemodialysis [facility]. He also had [...] care was discussed with Dr. Mikey Orta [phone]), HIM systems security consultant. I saw and evaluated Salbador Justin today and provided counseling cywh-la-lyoc at bedside. I personally spent a total of greater than 30 minutes in counseling and coordination of care as described above to facilitate the hospital discharge. Discharge instructions were provided to the patient and caregiver(s). documented in this encounter Discharge Instructions * Discharge Instructions* Jazlyn Vyas - 07/29/2022 7:15 AM CDT You were discharged from the [facility] Medicine 11 ([facility]) Service. Please identify this service name [...] to). He provided the correct address as [address] [place] [address]. It is a hotel and he will be getting a new room saha once he gets there. His financial needs were addressed. He confirmed he is comfortable with the plan and did not have any questions or concerns with the plan. Social work updated care management assistants and they reached out to [phone] to change the address for the ride. OBJECTIVE Patient is currently hospitalized on Dom 2D. They are medically stable. ASSESSMENT / PLAN ASSESSMENT Patient appeared to be coping appropriately at this time. He has adequate insight into his needs and is planning for discharge. PLAN Discharge at 07/30 at 3:30pm by [employer] ([phone]). Paid for by OTHER. Patient must be at the [facility] doors for pickup. Cait Dunn, M.S.WJuan C 07/30/22 * VermaMare APRN, C.N.P., D.N.P. - 07/30/2022 1:58 PM [...] 250 (3.7) Dialysis 2256 Total Output 2255 -2005 +250 Unmeasured Urine Occurrence 1 x [...] nephropathy, maintained on [facility] hemodialysis since 07/2017 # Admitted on 07/28/2022 [...] he will present tohis outpatient dialysis unit, [facility]. -- Was on spironolactone in the past, unsure why this was stopped. Recommend starting torsemide 100mg daily. Dismissal Recommendations: -- Hemodialysis on Friday, , Friday schedule; (outpatient unit is [facility] dialysis unit) -- We will set a [...] diet; 1.5 L/day fluid restriction -- Epogen 62553 units IV 3 times per week with [...] or concerns, please contact the Nephrology C SPINDLE REPAIRER/PA, pager #[phone]. * Joaquin Luz, PTevin.-C., M.S. - 07/29/2022 4:11 PM CDT [facility] Medicine 11 ([facility]) Progress Note SUBJECTIVE Mr. Justin is [...] / PLAN Mr. Justin is hospitalized on [facility] 11 ([facility]) for evaluation and management of Excess [...] care was discussed with Dr. Mikey Orta [phone]), HIM systems security consultant. I personally spent a total of 25 minutes providing and coordinating care today. * Angel Osorio M.D. - 07/29/2022 12:10 PM CDT Hemodialysis note: Patient was seen and assessed independent of Ms. Heaven Clemens APRN, C.N.P., D.N.P. as part of shared visit. Mr. [...] ambulation Medication Reconciliation: Med history per [facility] - New: AKL triple cream, lidocaine patch - Held: benazepril ASSESSMENT / PLAN 1. HTN: Patient reports nonadherence as an outpatient. Continues home amlodipine, hydralazine, labetalol and minoxidil. Holding benazepril. 2. ESRD on iHD //: Missed HD on 07/27. Planning to dialyze today. Phos 2.7 on 07/04/22, binder not indicated. Consider starting Dialyvite 1 tab PO daily. 3.Pain: New analgesic regimen of acetaminophen prn, AKL triple cream and lidocaine patch. Janelle Berumen Pharm.D., R.Ph. [phone] * Dede Berumen Pharm.D., R.Ph. - 07/29/2022 [...] M.B., Ph.D. - 07/28/2022 10:04 PM CDT [facility] Medicine 11 ([facility]) Admission Note SUBJECTIVE CHIEF COMPLAINT Missed dialysis HISTORY OF PRESENT ILLNESS Salbador Justin is a 36 y.o. male who presents to emergency department with a chief complaint of missed dialysis. 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 His dialysis schedule is Friday, and Friday. He is doing dialysis at [facility] [place]. The dialysis yesterday was canceled due to [...] reviewed the labs, ECG, and xray from [facility]. ASSESSMENT / PLAN #1 End-stage renal disease [...] start amlodipine and minoxidil tomorrow morning - middle school guidance counselor on medication compliance Diet: Adult Diet [...] patient has discharged. Transportation has been requested, telephonic case manager asked criminal justice social worker Miranda Mckeon to soraya the ride as no MA rides are available today. Ride is set up for 07/30/22 at 3:30pm via [employer] [phone], please have the patient at the Main [...] [place]. [place] [address]. Mr. Justin normally dialyzes on Friday, , and Friday at [facility] dialysis unit. He normally dialyzes for 4 hours with a 138 sodium, 2 potassium, 2.5 calcium, and 36 bicarbonate dialysate at a temperature of 36.5 degrees Celsius. His estimated dry weight is 68 kg. His dialysis access is a left AV fistula. He uses a Nipro Elisio dialyzer. Medications administered during dialysis include: Epogen 57548 units IV 3 times per week. Heparin [...] disease secondary to hypertensive nephropathy, [facility] since 07/2017 # Admitted on 07/28/2022 [...] be tomorrow in the outpatient setting at [facility] dialysis unit. However, if he remains in the hospital today, we will plan for dialysis here tomorrow morning. Additional Recommendations: -- Hemodialysis on Friday, , Friday schedule; (outpatient unit is [facility] dialysis [facility]) -- If remains hospitalized tonight, [...] diet; 1.5 L/day fluid restriction -- Epogen 15099 units IV 3 times per week with [...] has been staffed with Dr. Osorio, Nephrology systems security consultant. For questions or concerns, please contact Nephrology C SPINDLE REPAIRER/PA pager, [phone]. ADDENDUM ([id number]): Mr. Justin completed 4 hours of hemodialysis [...] 5 years who comes in today from [place] after being unable to get dialysis yesterday. They had plan to reschedule for tomorrow but he had an appointment in [place] he needed to get to and was [...] Baseline, 5th gen(!): 72 2021 NT-Pro BNP(!): 12978 2022 BUN (Blood Urea Nitrogen), P(!): 67 [...] has been on dialysis for 5 years [place], [place]. [place] that he was not able [...] has been on dialysis for 5 years [place], [place]. [place] that he was not able [...] and further observation.. Final Diagnoses: as of 07/28/226 Excess Fluid Volume Elevated Blood Pressure Britni Tompkins M.D. Resident 07/28/22 2328 documented in this encounter Miscellaneous Notes * [...] Sadie Sadler R.N., BSN, CCDS Clinical Documentation Squirrel Worker Query created by: Sadie Sadler R.N., BSN, CCDS 08/02/2022 06:12 AM CDT </LCI> * Hospital Course - Joaquin Luz P.A.-C., M.S. - 07/28/2022 10:17 PM CDT Mr. Justin is a 36-year-old male with end-stage renal disease on hemodialysis [facility]. He also had [...] Antigen Scrn, S (07/29/2022 9:39 AM CDT) Pathologist [facility] HBs Antigen Scrn, S Negative Negative 07/29/2022 1:59 PM CDT [facility] Blood (Blood, Venous) 07/29/2022 9:39 AM CDT 07/29/2022 12:20 PM CDT Heaven Clemens APRN, C.N.P., D.N.P. L AB MICROBIOLOGY - BLOOD ORDERABLES [facility] [address] [place] [address] [facility] [address] [place] [address] * HBs Antibody Scrn, S (07/29/2022 9:39 AM CDT) Pathologist [facility] HBs Antibody Scrn, S Positive 07/29/2022 2:16 PM CDT [facility] Comment: Patient is considered to be immune to infection with HBV. ----REFERENCE VALUE---- Unvaccinated: Negative Vaccinated: Positive HBs Antibody, Quantitative, S 12.7 mIU/mL 07/29/2022 2:16 PM CDT [facility] Comment: ----REFERENCE VALUE---- Unvaccinated: <5.0 Vaccinated: >=12.0 Blood (Blood, Venous) 07/29/2022 9:39 AM CDT 07/29/2022 12:20 PM CDT Heaven Clemens APRN, C.N.P., D.N.PJuan C L AB MICROBIOLOGY - BLOOD ORDERABLES [facility] [address] [place] [address] [facility] [address] [place] [address] * (ABNORMAL) Basic Metabolic Panel (07/29/2022 4:43 AM CDT) [facility] Potassium, S 4.9 3.6 - 5.2 [...] CDT Lisa Hardy, Ph.D. LAB BLOOD ADD-ON [facility] [address] [place] [address], [facility] [place] [facility] [address] [place] [address] * (ABNORMAL) Troponin T, 2H/6H, 5th Gen [...] PM CDT 07/28/2022 10:11 PM CDT Narrative [facility] - 07/28/2022 10:45 PM CDT Specimen Information: Specimen ID: [id number] Specimen Type: Blood Specimen Collection Start Date: 07/28/2022 10:05 PM Specimen Received Date: 07/28/2022 10:11 PM Specimen ID: [id number] Specimen Type: Blood Diane Fregoso M.D., M.B.A. LAB BLOOD TR OPONIN [facility] [address] [place] [address], [facility] [address] [place] [address] * DX Chest AP or PA and [...] CDT) Ventricular Rate ECG/Min 93 BPM MUSE TX Interval 142 ms MUSE QRSD Interval 92 ms MUSE QT Interval 374 ms MUSE QTC Interval 465 ms MUSE P Filion 65 degrees MUSE R Filion 106 degrees MUSE T Wave Filion 45 degrees MUSE 07/28/2022 7:43 PM CDT [...] M.B.A. ECG ORDERABL ES Performing Organization Address [facility] Co de Phone Number MUSE NA * Prothrombin Time (PT) (07/28/2022 7:43 PM CDT) Prothrombin Time, P 11.3 9.4 - 12.5 [...] LAB BLOOD AD D-ON Performing Organization Address [facility] de Phone Number [facility] [address] [facility] [address] [place] [address] * (ABNORMAL) Troponin T, Baseline, 5th gen (07/28/2022 7:43 PM CDT) Troponin T, Baseline, 5th gen 72(H) <=15 ng/L 07/28/2022 8:12 PM CDT [facility] Blood (Blood, Venous) 07/28/2022 7:43 PM CDT 07/28/2022 7:48 PM CDT Diane Fregoso M.D., M.B.A. LAB BLOOD TR OPONIN Performing Organization Address City/[facility]/ZIP Co de Phone Number [facility] 200 [place] [address] * (ABNORMAL) NT-Pro B-Type Natriuretic Peptide (BNP) (07/28/2022 7:43 PM CDT) [facility] NT-Pro BNP 76998(H) <79 pg/mL 07/28/2022 8:16 PM CDT [facility] [...] LAB BLOOD AD D-ON Performing Organization Address [facility] Co de Phone Number [facility] [address] [place] [address] * (ABNORMAL) Basic Metabolic Panel (07/28/2022 7:43 PM CDT) Pathologist [facility] Potassium, P 4.1 3.6 - 5.2 mmol/L [...] Fregoso M.D., M.B.A. LAB BLOOD AD D-ON [address] [address], [facility] 200 [place] [address] * (ABNORMAL) CBC with Differential, Blood (07/28/2022 [...] Fregoso M.D., M.B.A. LAB BLOOD AD D-ON [address] [address], [facility] [address] [place] [address] documented in this encounter Visit Diagnoses Diagnosis [...] of acetaminophen in 24 hours all sources ufcqdgqewlxgj-ormabwto-uwty osman in Lipoderm 2%-5%-5% cream 1 g [...] 2136 (Not Given - Provider: Yulissa Singh R.N. - Reason: Patient/family refused) 0317 (Not Given - Provider: Yulissa Singh R.N. - Reason: Patient/family refused)1229 (Not Given - Provider: Elba Carey R.N. - Reason: Patient/family refused) fpxknknbaijhh-fosapepf-z idocaine in Lipoderm 2%-5%-5% cream 1 g [...] 0951 (Given - Provider: Verito Nicolas RJuan CNJuan C) heparin (porcine) 1,000 unit/mL injection 2,000 Units (COMPLETED) 2,000 Units, intravenous, Once in dialysis, On Fri07/30/22 at 1100, For 1 dose, Dialysis, Heparin (during dialysis) Loading dose 1102 (Given - Provider: Miranda Avila RJuan CNJuan C) hydrALAZINE tablet 50 mg (APRESOLINE) 50 mg, oral, 2 times daily, First dose on Fri07/28/22 at 2324 0017 (Given - Provider: Deysi Patel RJuan CN.)0814 (Given - Provider: Elba Carey R.N.)1612 (Given - Provider: Elba Carey RJuan CN.) 1440 (Not Given - Provider: Elba Carey R.N. - Reason: Patient/family refused) HYDROmorphone (PF) injection 1 mg (DILAUDID) (COMPLETED) 1 mg, intravenous, Once, On Fri07/28/22 at 2016, For 1 dose 2031 (Given - Provider: Senthil Coronel RJuan CN.) labetaloL tablet 300 mg (NORMODYNE) 300 mg, oral, 2 times daily, First dose on Fri07/28/22 at 2324 0016 (Given - Provider: Deysi Patel RJuan CN.)0814 (Given - Provider: Elba Carey R.N.)2023 (Given - Provider: Yulissa Singh RJuan CNJuan C) 1440 (Not Given - Provider: Elba Carey RJuan CNJuan C - Reason: Patient/family refused) lidocaine 5 % 1 patch (LIDODERM) 1 patch, transdermal, Administer over 12 Hours, Daily, First dose on Fri07/29/22 at 0530, Remove after 12 hours. 0530 (Due) 0900 (Due) minoxidiL tablet 2.5 mg (LONITEN) 2.5 mg, oral, Daily, First dose on Fri07/29/22 at 0900 0815 (Given - Provider: Elba Carey RPenny) 1440 (Not Given - Provider: Elba Carey [...] Fri07/29/22 at 1037 1102 (Given - Provider: Noemy BestN. - Comment: back and head)1612 (Given - Provider: Elba Carey R.N.)2203 (Given - Provider: Yulissa Singh R.N.) 0848 (Given - Provider: Elba Carey R.N. - Comment: back)1441 (Given - Provider: Elba Carey RJuan CNJuan C - Comment: head) lidocaine (PF) 10 mg/mL [...] contact. 2023 (Given - Provider: Yulissa Singh RPenny) sodium chloride 0.9 % flush 1-100 mL 1-100 mL, intravenous, As needed, line care, Starting on Fri07/30/22 at 1046, Dialysis, For anticoagulation line to maintain patency of dialysis circuit. sodium chloride 0.9 % flush 1-250 mL (CANCELED) 1-250 mL, intravenous, As needed, line care, For priming and rinse back post dialysis, Starting on Fri07/29/22 at 0938, Dialysis, Dialysis order only. 52 (Given - Provider: Verito Nicolas R.N.) sodium [...] R.N.) documented in this encounter Care Teams State Editor Relationship Specialty Start Date End Date None Reported, Pcp PCP - General Family Medicine 07/28/22 02/03/23 documented as of this encounter
--- OUTSIDE RECORDS SUMMARY | 2023-05-20 09:47 | XMS_ITS | Encounter Summary ---
Author Name Unknown Organization [facility] Address [address] [place] [address] Care Team Providers Care Physiological Chemist Name Role Phone None Reported, Pcp Primary Care Provider Unavail able Encounter Details Date Type Department Care Team (Late st Contact Info) Description 08/13/2022 Orders Only Division of Nephrology and Hypertension in [place], [place] [address] [place] [address] Concetta eMjía M.D., Ph.D. [address] [place] [phone] Social History Tobacco Use Types Packs/Day Years [...] on filedocumented in this encounter Care Teams Physiological Chemist Relationship Specialty Start Date End Date None Reported, Pcp PCP - General Family Medicine 07/28/22 02/03/23 documented as of this encounter
--- OUTSIDE RECORDS SUMMARY | 2023-05-20 09:47 | XMS_ITS | Encounter Summary ---
Author Name Unknown Organization [facility] Address [address] [place] [address] Care Team Providers Care Employee Representative Name Role Phone None Reported, Pcp Primary Care Provider Unavail able Reason for Visit * Reason Comments Chest Pain Pain With Breathing Encounter Details Date Type Department Care Team ([facility] st Contact Info) Description 09/22/2022 9:00 PM CDT - 09/23/2022 1:03 AM CDT Emergency [facility] Emergency Department [address] [place] [phone] Mike Luz M.D., M.B.A. [address] [place] [phone] Carlos Brown M.D., M.S. [address] [place] [phone] Pain Chest (Primary Dx); Shortness Of Breath [...] Care Everywhere. * Nonspecific Chest Pain Adult (Korean) documented in this encounter Medications at Time [...] to go to the below address in [facility]. OBJECTIVE Emergency Department Social work was consulted to assist with transportation back to request of [address] [place]. Social work arranged transportation with [employer] (phone: [phone]). ASSESSMENT / PLAN ASSESSMENT Transport resources were explored and arranged to assist with the patient's needs. The patient appears to have insight into their needs at this time. PLAN 1. [employer] (phone: [phone]) to provide return transportation to patient's requested dropoff. 2. Please contact social work if further supportive or dismissal needs arise. Cait Galeana, M.S.W. 09/23/2022 documented in this encounter ED Notes * Carlos Brown M.D., M.S. - 09/23/2022 12:44 AM CDT Care of patient transferred to ks by Dr. Luz. The patient was signed [...] Temperature 09/23/22 0000 36.6 ??C Pulse Rate 09/22/220 104 Heart Rate 09/22/222129 105 Resp Rate 09/22/222129 23 Blood Pressure 09/22/222129 141/78 SpO2 09/22/222129 97 % Pain Score 09/22/227 6 PHYSICAL [...] now present Reviewed by Perfecto Lugo III, ELENA DX Chest AP or PA and Lateral [...] including history, physical exam, orders, and plan. Philippeee with the note of the resident. Mike Luz M.D., M.B.A. 09/26/22 2319 * Juana Sanon R.N., JOSE - 09/22/2022 9:00 PM CDT Patient with history of dialysis presents with uncotrolled chest pain. Fentanyl and Versed given SITE TECHNICIAN. Juana Sanon R.N., JOSE 09/22/222100 documented [...] PM CDT 09/22/2022 11:55 PM CDT Narrative [facility] - 09/23/2022 2:38 PM CDT Specimen Information: Specimen ID: [id number] Specimen Type: Blood Specimen Collection Start Date: 09/22/2022 11:43 PM Specimen Received Date: 09/22/2022 11:55 PM Specimen ID: [id number] Specimen Type: Blood Specimen Collection Start Date: 09/23/2022 ??2:38 PM Specimen Received Date: 09/23/2022 ??2:38 PM Mike Luz M.D., M.B.A. LAB BLOOD TR OPONIN [facility] [address] [place] [address], [facility] [address] [place] [address] * DX Chest AP or PA and [...] Chest otherwise normal. Mike Luz M.D., M.B.A. IMG DIAGNOST IC IMAGING PROCEDURES * (ABNORMAL) NT-Pro B-Type Natriuretic Peptide (BNP) (09/22/2022 9:21 PM CDT) NT-Pro BNP 90315(H) <79 pg/mL 09/22/2022 9:59 PM CDT [facility] Comment: NT-proBNP values less than [...] Luz M.D., M.B.A. LAB BLOOD AD D-ON [facility] [address] [place] [address], [place] [facility] [address] [place] [address] * (ABNORMAL) Troponin T, Baseline, 5th gen (09/22/2022 9:21 PM CDT) Troponin T, Baseline, 5th gen 114(H) <=15 ng/L 09/22/2022 9:50 PM CDT [facility] Comment:Consider acute myoca rdial injury Blood (Blood, Venous) 09/22/2022 9:21 PM CDT 09/22/2022 9:26 PM CDT Mike Luz M.D., M.B.A. LAB BLOOD TR OPONIN [facility] [address] [place] [address], [facility] [address] [place] [address] * (ABNORMAL) Basic Metabolic Panel (09/22/2022 9:21 PM CDT) Pathologist [facility] Potassium, P 4.2 3.6 - 5.2 mmol/L [...] Luz M.D., M.B.A. LAB BLOOD AD D-ON [facility] [address] [place] [address], [facility] [address] [place] [address] * (ABNORMAL) CBC with Differential, Blood (09/22/2022 [...] 9:21 PM CDT 09/22/2022 9:26 PM CDT Miek Luz M.D., M.B.A. LAB BLOOD AD D-ON Performing Organization Address [facility] Co de Phone Number [facility] [address] [place] [address], [facility] [address] [place] [address] * ECG 12 Lead (09/22/2022 9:15 PM CDT) Ventricular Rate ECG/Min 108 BPM MUSE TN Interval 142 ms MUSE QRSD Interval 90 ms MUSE QT Interval 376 ms MUSE QTC Interval 503 ms MUSE P [place] 48 degrees MUSE R [place] 86 degrees MUSE T Wave [place] 50 degrees MUSE 09/22/2022 9:15 PM CDT [...] M.B.A. ECG ORDERABL ES Performing Organization Address [facility] Co de Phone Number [...] [phone] (New Bag - Provider: Jesusita Cardenas R.N.)2354 (Stopped - Provider: Jasmin Wilson R.N. - [...] on 09/22/22 at 2243, For 3 doses 2253 (Given - Provider: Jesusita Cardenas RGilberto.)5085 (Given - Provider: Jasmin Wilson R.N.) documented in this encounter Care Teams Employee Representative Relationship Specialty Start Date End Date None Reported, Pcp PCP - General Family Medicine 07/28/22 02/03/23 documented as of this encounter
--- OUTSIDE RECORDS SUMMARY | 2023-05-20 09:47 | XMS_ITS ---
Author Name Unknown Organization [facility] Address [address] [place] [address] Care Team Providers Care Crew Leader Name Role Phone Elsewhere, Pcp Primary Care Provider Unavailabl e Transplant Episode Kidney Candidate [facility] ([place], [place]) - [facility] Referred on 10/10/2022 Marked as Ineligible on 05/16/2023 Reason: Psychosocial Contraindications Kidney CoordinatorRoseline Humphrey R.N. Fax: N/A Email: [email or web address] Scores Score Value Updated Exceptions/Reas ons CPRA Not available EPTS (Calc) 11 05/20/2023 Care Team Name Role Phone Fax Email Roseline Humphrey R.N. Kidney Coordinator [phone] N/A [email or web address] Concetta Floyd Referring Provider [phone] N/A [email or web address] Pre-Transplant Referred: 10/10/2022 Dialysis History Dialysis History Start End Type Comments Center 2017 Hemo [facility] Information Center Phone Fax Address [facility] [phone] [place] [address]
--- OUTSIDE RECORDS SUMMARY | 2023-05-20 09:47 | XMS_ITS | Encounter Summary ---
Author Name Unknown Organization [facility] Address [address] [place] [address] Care Team Providers Care Pharmacy Clinical Coordinator Name Role Phone None Reported, Pcp Primary Care Provider Unavail able Reason for Visit * Outpatient (Routine) - Authorized Specialty Diagnoses / Procedures Referred By Mel quiroz Referred To Contact Diagnoses Pain Chest Procedures NM Cardiac Perfusion Rest and Stress SPECT Drew Mo APRN C.N.P., M.S.N. [address] [place] [phone] [facility] Referral ID Status Reason Start Date Expiration Date V isits Requested Visits Authorized [id number] Authorized 07/11/2022 07/11/2023 6 6 Encounter Details Date Type Department Care Team (Latest Contact Info) Description 07/29/2022 11:59 PM CDT Hospital Encounter Department of Radiology in [place], [place] [address] [place] [phone] Drew Mo APRN, C.N.P., M.S.N. [address] [place] [phone] Canceled (Patient: Hospitalized / ill) Discharge Disposition: [...] on filedocumented in this encounter Care Teams Pharmacy Clinical Coordinator Relationship Specialty Start Date End Date None Reported, Pcp PCP - General Family Medicine 07/28/22 02/03/23 documented as of this encounter
--- OUTSIDE RECORDS SUMMARY | 2023-05-20 09:47 | XMS_ITS | Encounter Summary ---
Author Name Unknown Organization [facility] Address [address] [place] [address] Care Team Providers Care Fence Gate Assembler Name Role Phone Unavailable Primary Care Provider Unavailabl e Encounter Details Date Type Department Care Team (Late st Contact Info) Description 07/11/2022 Orders Only Department of Cardiovascular Diseases in [place], [place] [address] [phone] Dagoberto Rashid, HALLE, C.N.P. [address] [phone] Social History Tobacco Use Types Packs/Day Years [...] Visit Diagnoses Not on filedocumented in this encounter"
--- OUTSIDE RECORDS SUMMARY | 2023-05-20 09:47 | XMS_ITS | Encounter Summary ---
Author Name Unknown Organization [facility] Address [address] [place] [address] Care Team Providers Care Supervisor Industrial Garment Name Role Phone None Reported, Pcp Primary Care Provider Unavail able Encounter Details Date Type Department Care Team (Late st Contact Info) Description 09/12/2022 Orders Only Division of Nephrology and Hypertension, [facility], in [place], [place] [address] [place] [phone] Drew Mo, CONTACT ACID PLANT OPERATOR HELPER, C.N.P., M.S.N. [address] [place] [phone] Social History Tobacco Use Types Packs/Day Years [...] filedocumented in this encounter Care Teams Supervisor Industrial Garment Relationship Specialty Start Date End Date None Reported, Pcp PCP - General Family Medicine 07/28/22 02/03/23 documented as of this encounter
--- OUTSIDE RECORDS SUMMARY | 2023-05-20 09:47 | XMS_ITS ---
Author Name Unknown Organization [facility] Address [address] [place] [address] Care Team Providers Care Sock Knitter Name Role Phone Elsewhere, Pcp Primary Care Provider Unavailabl e Transplant Episode Kidney Candidate [facility] ([place], [place]) - [facility] Referred on 06/28/2022 Marked as Ineligible on 09/06/2022 Reason: Unable to Contact Patient Kidney CoordinatorRoseline Humphrey R.N. Fax: N/A Email: [email or web address] Scores Score Value Updated Exceptions/Reas ons CPRA Not available EPTS (Calc) 11 05/20/2023 Care Team Name Role Phone Fax Email Roseline Humphrey R.N. Kidney Coordinator [phone] N/A [email or web address] Pre-Transplant Referred: 06/28/2022 Dialysis History Dialysis History Start End Type Comments Center 2017 Hemo [facility] D[facility] Information Center Phone Fax Address [facility] [phone] [place] [address]
--- OUTSIDE RECORDS SUMMARY | 2023-05-20 09:47 | XMS_ITS | Encounter Summary ---
Author Name Unknown Organization [facility] Address [address] [place] [address] Care Team Providers Care Galvanizer Zinc Name Role Phone None Reported, Pcp Primary Care Provider Unavail able Encounter Details Date Type Department Care Team (Late st Contact Info) Description 07/11/2022 Clinical Communication Department of Cardiovascular Diseases in [place], [place] [address] [place] [phone] Sergei Ibrahim M.D. [address] [place] [phone] Social History Tobacco Use Types Packs/Day Years [...] on filedocumented in this encounter Care Teams Galvanizer Zinc Relationship Specialty Start Date End Date None Reported, Pcp PCP - General Family Medicine 07/28/22 02/03/23 documented as of this encounter
--- OUTSIDE RECORDS SUMMARY | 2023-05-20 09:47 | XMS_ITS | Encounter Summary ---
Author Name Unknown Organization [facility] Address [address] [place] [address] Care Team Providers Care Soil Surveyor Name Role Phone Unavailable Primary Care Provider Unavailabl e Encounter Details Date Type Department Care Team (Late st Contact Info) Description 07/06/2022 Orders Only Division of Nephrology and Hypertension, [facility], in [place], [place] [address] [place] [phone] Drew Mo, HALLE, C.N.P., M.S.N. [address] [place] [phone] Social History Tobacco Use Types Packs/Day Years [...]
== END 2023-05-18 03:51 | disposition home or self-care (01) ==
LOC: AMB 05-20 09:34
PROVIDERS: PCP Internal Medicine; Visit Provider Family Medicine
DX: R10.9 Unspecified abdominal pain (principal)
CPT/HCPCS: A0425; A0427

== ENCOUNTER 2023-07-04 15:26 | Outpatient (CLI) | payer MEDICARE, SELFPAY | END 2023-07-04 15:27 | disposition home or self-care (01) | LOC: AMB 07-05 15:48 | PROVIDERS: PCP Internal Medicine; Visit Provider Emergency Medicine Emergency Medical Services | DX: I95.9 Hypotension, unspecified (principal) | CPT/HCPCS: A0425; A0427; A0998 ==

== ENCOUNTER 2023-09-17 15:38 | Outpatient (CLI) | payer MEDICARE, SELFPAY ==
--- OUTSIDE RECORDS SUMMARY | 2023-09-17 15:42 | XMS_ITS | Encounter Summary ---
Author Organization [facility] Address [address] [place] [address] Care Team Providers Care Wharf Attendant Name Role Phone Elsewhere, Pcp Primary Care Provider Unavailabl e Reason for Referral * Outpatient (Routine) - Closed Specialty Diagnoses / Procedures Referred By Contac t Referred To Contact Diagnoses Pain Pleuritic Chest Procedures DX Chest AP or PA and Lateral 2 Views Drew Mo APRN C.N.P., M.S.N. [address] [place] [phone] [facility] Region Referral ID Status Reason Start Date Expiration Date Visits Re quested Visits Authorized [id number] Closed 09/09/2023 09/08/2024 1 1 Reason for Visit * Outpatient (Routine) - Closed Specialty Diagnoses / Procedures Referred By Contac t Referred To Contact Diagnoses Pain Pleuritic Chest Procedures DX Chest AP or PA and Lateral 2 Views Drew Mo APRN C.N.P., M.S.N. [address] [place] [phone] [facility] Region Referral ID Status Reason Start Date Expiration Date Visits Re quested Visits Authorized [id number] Closed 09/09/2023 09/08/2024 1 1 Encounter Details Date Type Department Care Team (Latest Contact Info) Description 09/09/2023 3:53 PM CDT - 09/09/2023 11:59 PM CDT Hospital Encounter Department of Radiology in [address] [phone] Drew Mo, HALLE C.N.P., M.S.N. [address] [place] [address] Pain Pleuritic Chest Discharge Disposition: Home or Self Care [...] [facility] 11/14/2022 Sex and [...] total) by mouth daily. 90 tablet 3 07/29/2023 07/28/2024 isosorbide mononitrate (IMDUR) 30 mg 24 hr tablet Take 1 tablet (30 mg total) by mouth every evening. 90 tablet 3 07/19/2023 07/18/2024 multivitamin renal failure (DIALYVITE) 100-1 mg tablet Take 1 tablet by mouth daily with dinner. 90 tablet 3 02/24/2023 02/24/2024 prochlorperazine (COMPAZINE) 5 mg tablet Take 1 tablet (5 mg total) by mouth every 6 (six) hours as needed for nausea or vomiting. 30 tablet 1 06/24/2023 sertraline (ZOLOFT) 50 mg tablet Take 1 tablet (50 mg total) by mouth daily. 90 tablet 3 01/27/2023 01/27/2024 torsemide (DEMADEX) 100 mg tablet Take 1 tablet (100 mg total) by mouth 2 (two) times a day. 180 tablet 3 06/18/2023 06/17/2024 traZODone (DESYREL) 50 mg tablet Take 1 tablet (50 mg total) by mouth at bedtime. 30 tablet 11 04/15/2023 04/14/2024 documented as of this encounter Plan of Treatment Upcoming Encounters Date Type Department Care Team (Late st Contact Info) Description 10/09/2023 10:00 AM CDT Appointment Department of Cardiovascular Diseases in [address] [phone] Drew Mo P, CARDIOLOGY MANAGER, C.N.P., M.S.N. [address] [place] [phone] documented as of this encounter Procedures Procedure Name Priority Date/Time Associated Diagnosis Comments DX CHEST AP OR PA AND LATERAL 2 VIEWS RAD - Routine (most inpatients and all outpatients) 09/09/2023 4:09 PM CDT Pain Pleuritic Chest documented in this encounter Results * DX Chest AP or PA and Lateral 2 Views (09/09/2023 4:09 PM CDT) Anatomical Region Laterality Modality Chest, Thoracic RST LOS, Tho racic ARZ LOS, Thoracic FLA LOS N/A Digital Radiography Impressions 09/09/2023 4:39 PM CDT Since 02/04/2023, interval resolution of the previously seen prominent central pulmonary vasculature. Heart size now measures at the upper limits of normal. Remainder not significantly changed. Slight thoracic curvature. Chest otherwise negative. Narrative 09/09/2023 4:39 PM CDT EXAM: DX CHEST AP OR PA AND LATERAL 2 VIEWS Procedure Note Mick Tolliver M.D. - 09/09/2023 EXAM: DX CHEST AP OR PA AND LATERAL 2 VIEWS IMPRESSION: Since 02/04/2023, interval resolution of the previously seen prominentcentral pulmonary vasculature. Heart size now measures at the upper limitsof normal. Remainder not significantly changed. Slight thoracic curvature.Chest otherwise negative. Drew Mo APRN, C.N.P., M.S.N. IMG DIAG NOSTIC IMAGING PROCEDURES documented in this encounter Visit Diagnoses Diagnosis Pain Pleuritic Chest documented in this encounter Care Teams Wharf Attendant Relationship Specialty Start Date End Date Elsewhere, Pcp PCP - General Internal Medicine 02/04/23 documented as of this encounter
--- OUTSIDE RECORDS SUMMARY | 2023-09-17 15:42 | XMS_ITS ---
Author Organization [facility] Address [address] [place] [address] Care Team Providers Care Space Systems Operations Craftsman Name Role Phone Unavailable Unavailable Unavailable Surgery Details Not on file Complications Check Surgery Details section. Procedure Estimated Blood Loss Check Surgery Details section. Procedure Findings Check Surgery Details section. Procedure Specimens Taken Check Surgery Details section.
--- OUTSIDE RECORDS SUMMARY | 2023-09-17 15:42 | XMS_ITS | Clinical Summary ---
Author Organization [facility] Address [address] [place] [address] Care Team Providers Care Conservation Science Teacher Name Role Phone Elsewhere, Pcp Primary Care Provider Unavailabl e Source Comments Patient records contain information from all sites at [facility]. For routine questions regarding patient records, call [phone] during business hours, M-F 8:00 AM - 5:00 PM Central Time. Record requests for emergency care only can be directed to [phone] at any time.[facility] Allergies Active Allergy Reactions Criticality Noted Date [...] 3 (three) times a day with meals. Active sertraline (ZOLOFT) 50 mg tablet Take 1 tablet (50 mg total) by mouth daily. 90 tablet 3 01/27/2023 01/27/2024 Active cyanocobalamin (vitamin B-12) 1,000 mcg tablet Take 1 tablet (1,000 mcg total) by mouth daily. F/u with PCP for additional refills. 30 tablet 02/07/2023 Active albuterol 90 mcg/actuation inhaler Inhale 2 puffs every 6 (six) hours as needed for wheezing or shortness of breath (or cough). 8 g 11 02/11/2023 Active multivitamin renal failure (DIALYVITE) 100-1 mg tablet Take 1 tablet by mouth daily with dinner. 90 tablet 3 02/24/2023 02/24/2024 Active amLODIPine (NORVASC) 10 mg tablet Take 1 tablet (10 mg total) by mouth daily. 90 tablet 3 04/01/2023 03/31/2024 Active hydrALAZINE (APRESOLINE) 50 mg tablet Take 1 tablet (50 mg total) by mouth every 8 (eight) hours. 270 tablet 3 04/08/2023 04/07/2024 Active traZODone (DESYREL) 50 mg tablet Take 1 tablet (50 mg total) by mouth at bedtime. 30 tablet 11 04/15/2023 04/14/2024 Active torsemide (DEMADEX) 100 mg tablet Take 1 tablet (100 mg total) by mouth 2 (two) times a day. 180 tablet 3 06/18/2023 06/17/2024 Active prochlorperazine (COMPAZINE) 5 mg tablet Take 1 tablet (5 mg total) by mouth every 6 (six) hours as needed for nausea or vomiting. 30 tablet 1 06/24/2023 Active isosorbide mononitrate (IMDUR) 30 mg 24 hr tablet Take 1 tablet (30 mg total) by mouth every evening. 90 tablet 3 07/19/2023 07/18/2024 Active irbesartan (AVAPRO) 300 mg tablet Take 1 tablet (300 mg total) by mouth daily. 90 tablet 3 07/29/2023 07/28/2024 Active Active Problems Problem Noted Date Diagnosed [...] 10/19/2022 10/20/2022 Excess Fluid Volume 07/28/2022 10/21/19 Encounters Date Type Department Care Team Description 09/11/2023 Clinical Communication Division of Nephrology and Hypertension, [facility], [place], [place] [address] [place] [phone] Derw Mo APRN, C.N.P., M.S.N. Results 09/09/2023 3:53 PM CDT - 09/09/2023 11:59 PM CDT Hospital Encounter Department of Radiology in [address] [phone] Drew Mo APRN, C.N.P., M.S.N. Pain Pleuritic Chest Discharge Disposition: Home or Self Care 09/09/2023 3:45 PM CDT - 09/09/2023 3:52 PM CDT Hospital Encounter Department of Radiology in [address] [phone] Drew Mo APRN, C.N.P., M.S.N. Pain Pleuritic Chest Discharge Disposition: Home or Self Care 09/09/2023 Orders Only Division of Nephrology and Hypertension, [facility], in [place], [place] [address] [place] [phone] Drew Mo APRN, C.N.P., M.S.N. Pain Pleuritic Chest (Primary Dx) 08/04/2023 Orders Only Division of Nephrology and Hypertension, [facility], in [place], [place] [address] [place] [phone] Drew Mo APRN C.N.P., M.S.N. 07/25/2023 Refill Division of Nephrology and Hypertension in [place], [place] [address] [place] [phone] Garth Burdick Jr., D.O. Med Refill 07/23/2023 Orders Only Division of Nephrology and Hypertension, [facility], in [place], [place] [address] [place] [phone] Drew Mo APRN, C.N.P., M.S.N. 07/18/2023 Refill Division of Nephrology and Hypertension, [facility], in [place], [place] [address] [place] [phone] Drew Mo APRN, C.N.P., M.S.N. Med Refill 06/24/2023 Orders Only Division of Nephrology and Hypertension in [place], [place] [address] [place] [phone] Garth Burdick Jr., D.O. 06/23/2023 Orders Only Division of Nephrology and Hypertension, [facility], in [place], [place] [address] [place] [phone] Drew Mo APRN C.N.P., M.S.N. 06/19/2023 Clinical Communication Maco Alexis [facility] in [place], [place] [address] [place] [phone] Roseline Humphrey R.N., C.C.T.C. Phone Contact from Last 3 Months Immunizations Name Administration Dates Next Due HepB Adult 09/02/2017 Influenza (IM) Preservative Free 01/31/2020,01/26,02/03/2018 Influenza, Unspecified 02/06/2021,01/31/2020, PCV13 06/12/2020 PPD Test 11/27/2021,,11/20/2021,2020,08/11/2019,08/11/2018,08/26/2017 Pneumococcal Conjugate(PCV), Unspecified 09/02/2017 SARS-COV-2 (COVID-19) - MODERNA(Discontinued) 03/28/2021,02/26/2021 Social History Tobacco Use Types Packs/Day Years [...] your living situation today? I have a [facility] place to live 11/14/2022 Sex and Gender Information Value Date Recorded Sex Assigned at Male 11/14/2022 11:03 AM CDT Gender Identity Male 11/14/2022 11:03 AM CDT Sexual Orientation Straight 11/14/2022 11 :03 AM CDT Last Filed Vital Signs Vital Sign Reading Time Taken Comments Blood Pressure 160/89 05/18/2023 4:45 PM [facility]ILD [facility] WORKER Pulse 78 05/18/2023 3:00 PM [facility] WORK[facility] Temperature 36.5 ??C (97.7 ??F) 05/18/2023 2:47 PM CS T Respiratory Rate 20 05/18/2023 6:27 PM [facility] WORKER Oxygen Saturation 98% 05/18/2023 3:00 PM [facility] WORKER Inhaled Oxygen Concentration - - Weight 62 kg (136 lb 11 oz) 11/21/2022 12:56 PM CDT Height 165.1 cm (5' 5) 05/18/2023 5:18 AM [facility] WORKER Body Mass Index 22.45 11/21/2022 12:56 PM CDT Plan of Treatment Upcoming Encounters Date Type Department Care Team (Late st Contact Info) Description 10/09/2023 10:00 AM CDT Appointment Department of Cardiovascular Diseases in [address] [phone] Drew Mo APRN, C.N.P., M.S.N. [address] [place] [phone] Health Maintenance Due Date Last Done Comments [...] this topic Medical Devices Implanted Type Area Bisque Placer Device Identifier Shelf Expiration Date Model / Serial / Lot Vascular Graft Vascular Graft Left: Arm Procedures Procedure Name Priority Date/Time Associated Diagnosis Comments DX CHEST AP OR PA AND LATERAL 2 VIEWS RAD - Routine (most inpatients and all outpatients) 09/09/2023 4:09 PM CDT Pain Pleuritic Chest ECG Routine 09/09/2023 3:43 PM CDT Pain Pleuritic Chest BASIC METABOLIC PANEL, S/P STAT 05/18/2023 6:14 AM [facility] WORKER from Last 3 Months or Most Recently Relevant to Health Maintenance Results * DX Chest AP or PA [...] Slight thoracic curvature.Chest otherwise negative. Drew Mo APRN C.N.P., M.S.N. IMG DIAG NOSTIC IMAGING PROCEDURES * ECG 12 Lead (09/09/2023 3:43 PM CDT) Ventricular Rate ECG/Min 75 BPM MUSE HI Interval 150 ms MUSE QRSD Interval 118 ms MUSE QT Interval 416 ms MUSE QTC Interval 464 ms MUSE P [place] 69 degrees MUSE R [place] 81 degrees MUSE T Wave [place] 64 degrees MUSE 09/09/2023 3:43 PM CDT 09/09/2023 4:04 PM CDT Impressions MUSE - 09/09/2023 4:04 PM CDT Normal sinus rhythm Left ventricular hypertrophy with QRS widening with secondary ST-T abnormalities When compared with ECG of 18-May-2023 07:16, QRS duration has increased Reviewed by ELENA Zimmerman Narrative Procedure Note Natan Rondon Jr., M.D. - 09/09/2023 IMPRESSION: Normal sinus rhythm Left ventricular hypertrophy with QRS widening with secondary ST-T abnormalities When compared with ECG of 18-May-2023 07:16, QRS duration has increased Reviewed by ELENA Zimmerman Drew Mo APRN C.N.P., M.S.N. ECG ORDE NATALIALES MUSE NA * (ABNORMAL) Basic Metabolic Panel (05/18/2023 6:14 AM [facility] WORKER) Potassium, P 6.0(CH) 3.6 - 5.2 mmol/L 05/18/2023 7:00 AM [facility] WORKER [facility] Sodium, P 140 135 - 145 mmol/L 05/18/2023 6:59 AM [facility] WORKER [facility] Chloride, P 98 98 - 107 mmol/L 05/18/2023 7:00 AM [facility] WORKER [facility] Bicarbonate, P 26 22 - 29 mmol/L 05/18/2023 7:00 AM [facility] WORKER [facility] Anion Gap, P 16(H) 7 - 15 05/18/2023 7:00 AM [facility] WORKER [facility] BUN (Blood Urea Nitrogen), P 57(H) 8 - 24 mg/dL 05/18/2023 6:35 AM [facility] WORKER [facility] Creatinine 12.93(H) 0.74 - 1.35 mg/dL 05/18/2023 6:35 AM [facility] WORKER [facility] Estimated GFR (eGFR) <15(L) >=60 mL/min/BSA 05/18/2023 6:35 AM CHILD [facility] WORKER [facility] Comment: Estimated GFR calculated using the 2020 CKD_EPI creatinine equation. Calcium, Total, P 9.5 8.6 - 10.0 mg/dL 05/18/2023 6:35 AM [facility] WORKER ST[facility] Glucose, P 105 70 - 140 mg/dL 05/18/2023 6:35 AM [facility] WORKER [facility] Blood (Blood, Venous) 05/18/2023 6:14 AM CH[facility] WORKER 05/18/2023 6:18 AM CHILD [facility] [facility] WORKER Lucy Herndon M.D., M.S. LAB BLOOD ADD-ON [facility] [address] [place] [address], [facility] STMA [facility] [place][note 2] [address] [place] [address] from Last 3 Months or Most Recently Relevant to Health Maintenance Advance Directives For more information, please contact: [phone] * Full Code (Latest Code Status on File) Date Activated Date Inactivated Comments 02/05/2023 4:33 AM 02/07/2023 4:46 PM Question Answer Comments Full Code: Discussed * Full Code Date Activated Date Inactivated Comments 10/19/2022 6:18 AM 10/20/2022 5:33 PM Question Answer Comments Full Code: Discussed * Full Code Date Activated Date Inactivated Comments 07/28/2022 11:23 PM 07/30/2022 5:00 PM Question Answer Comments Full Code: Discussed Care Teams Conservation Science Teacher Relationship Specialty Start Date End Date Elsewhere, Pcp PCP - General Internal Medicine 02/04/23
--- OUTSIDE RECORDS SUMMARY | 2023-09-17 15:42 | XMS_ITS ---
Author Organization [facility] Address [address] [place] [address] Care Team Providers Care Production Metal Sprayer Name Role Phone Elsewhere, Pcp Primary Care Provider Unavailabl e Procedures Procedure Name Priority Date/Time Associated Diagnosis Comments DX CHEST AP OR PA AND LATERAL 2 VIEWS RAD - Routine (most inpatients and all outpatients) 09/09/2023 4:09 PM CDT Pain Pleuritic Chest ECG Routine 09/09/2023 3:43 PM CDT Pain Pleuritic Chest BASIC METABOLIC PANEL, S/P STAT 05/18/2023 6:14 AM DENTAL ASSISTANT from Last 3 Months or Most Recently Relevant to Health Maintenance Allergies Active Allergy Reactions Criticality Noted Date [...] Comments Blood Pressure 160/89 05/18/2023 4:45 PM DENTAL ASSISTANT Pulse 78 05/18/2023 3:00 PM DENTAL ASSISTANT Temperature 36.5 ??C (97.7 ??F) 05/18/2023 2:47 PM CS T Respiratory Rate 20 05/18/2023 6:27 PM DENTAL ASSISTANT Oxygen Saturation 98% 05/18/2023 3:00 PM DENTAL ASSISTANT Inhaled Oxygen Concentration - - Weight 62 kg (136 lb 11 oz) 11/21/2022 12:56 PM CDT Height 165.1 cm (5' 5) 05/18/2023 5:18 AM DENTAL ASSISTANT Body Mass Index 22.45 11/21/2022 12:56 PM CDT Results * DX Chest AP or PA [...] CDT) Ventricular Rate ECG/Min 75 BPM MUSE AR Interval 150 ms MUSE QRSD Interval 118 ms MUSE QT Interval 416 ms MUSE QTC Interval 464 ms MUSE P [place] 69 degrees MUSE R [place] 81 degrees MUSE T Wave [place] 64 degrees MUSE 09/09/2023 3:43 PM CDT [...] Reviewed by ELENA Zimmerman Drew Mo APRN CJuan CNJuan CP., M.S.N. ECG ORDE [facility] MUSE NA * (ABNORMAL) Basic Metabolic Panel (05/18/2023 6:14 AM DENTAL ASSISTANT) Potassium, P 6.0(CH) 3.6 - 5.2 mmol/L 05/18/2023 7:00 AM DENTAL ASSISTANT STMA Sodium, P 140 135 - 145 mmol/L 05/18/2023 6:59 AM DENTAL ASSISTANT STMA Chloride, P 98 98 - 107 mmol/L 05/18/2023 7:00 AM DENTAL ASSISTANT STMA Bicarbonate, P 26 22 - 29 mmol/L 05/18/2023 7:00 AM DENTAL ASSISTANT STMA Anion Gap, P 16(H) 7 - 15 05/18/2023 7:00 AM DENTAL ASSISTANT STMA BUN (Blood Urea Nitrogen), P 57(H) 8 - 24 mg/dL 05/18/2023 6:35 AM DENTAL ASSISTANT STMA Creatinine 12.93(H) 0.74 - 1.35 mg/dL 05/18/2023 6:35 AM DENTAL ASSISTANT STMA Estimated GFR (eGFR) <15(L) >=60 mL/min/BSA 05/18/2023 6:35 AM DENTAL ASSISTANT STMA Comment: Estimated GFR calculated using the 2020 CKD_EPI creatinine equation. Calcium, Total, P 9.5 8.6 - 10.0 mg/dL 05/18/2023 6:35 AM DENTAL ASSISTANT STMA Glucose, P 105 70 - 140 mg/dL 05/18/2023 6:35 AM DENTAL ASSISTANT STMA Blood (Blood, Venous) 05/18/2023 6:14 AM DENTAL ASSISTANT 05/18/2023 6:18 AM DENTAL ASSISTANT Lucy Herndon M.D., M.S. LAB BLOOD ADD-ON [facility] [address] [place] [address], [facility] [address] [place] [address] from Last 3 Months or Most Recently Relevant to Health Maintenance
--- OUTSIDE RECORDS SUMMARY | 2023-09-17 15:42 | XMS_ITS | Clinical Summary ---
Author Organization [facility] Address [address] [place] [address] Care Team Providers Care Scalder Name Role Phone No Ref-Primary, Physician Primary [...] 1987 ANNUAL REVIEW OF HM ORDERS 1987 Pneumococcal Vaccine: Pediatrics (0 to 5 Years) and At-Risk Patients (6 to 64 Years) (1 of 2 - PCV) 08/17/1993 HIV SCREENING 08/17/2002 HEPATITIS C SCREENING 08/17/2005 MEDICARE ANNUAL WELLNESS VISIT 08/17/2005 HEPATITIS B IMMUNIZATION (1 of 3 - Risk Dialysis 4-dose series) 2007 DTAP/TDAP/TD IMMUNIZATION (1 - Tdap) 08/17/2012 COVID-19 Vaccine (1 - season) 2022 PHQ-2 (once per calendar year) 2023 INFLUENZA VACCINE (Season Ended) 2023 GLUCOSE 09/14/2025 09/14/2022, 03/0 12/2022, 07/03/2022, Additional history exists HPV IMMUNIZATION Aged Out No longer e [...] on patient's age to complete this topic Procedures Procedure Name Priority Date/Time Associated Diagnosis Comments COMPREHENSIVE METABOLIC PANEL STAT 09/14/2022 5:48 AM CDT from Last 3 Months or Most Recently Relevant to Health Maintenance Results * (ABNORMAL) Comprehensive metabolic panel (09/14/2022 5:48 AM CDT) Sodium 137 136 - 145 mmol/L 09/14/2022 6:18 AM CDT [facility] Potassium 4.4 3.4 - 5.3 mmol/L 09/14/2022 6:18 AM CDT [facility] Chloride 93(L) 98 - 107 mmol/L 09/14/2022 6:18 AM CDT [facility] Carbon Dioxide (CO2) 18(L) 22 - 29 mmol/L 09/14/2022 6:18 AM CDT [facility] Anion Gap 26(H) 7 - 15 mmol/L 09/14/2022 6:18 AM CDT [facility] Urea Nitrogen 48.0(H) 6.0 - 20.0 mg/dL 09/14/2022 6:18 AM CDT [facility] Creatinine 14.96(H) 0.67 - 1.17 mg/dL 09/14/2022 6:18 AM CDT [facility] Calcium 9.8 8.6 - 10.0 mg/dL 09/14/2022 6:18 AM CDT [facility] Glucose 111(H) 70 - 99 mg/dL 09/14/2022 6:18 AM CDT [facility] Alkaline Phosphatase 40 40 - 129 U/L 09/14/2022 6:18 AM CDT [facility] AST 22 10 - 50 U/L 09/14/2022 6:18 AM CDT [facility] ALT 14 10 - 50 U/L 09/14/2022 6:18 AM CDT [facility] Protein Total 7.1 6.4 - 8.3 g/dL 09/14/2022 6:18 AM CDT [facility] Albumin 4.7 3.5 - 5.2 g/dL 09/14/2022 6:18 AM CDT [facility] Bilirubin Total 0.2 <=1.2 mg/dL 09/14/2022 6:18 AM CDT [facility] GFR Estimate 4(L) >60 mL/min/1. 73m2 09/14/2022 6:18 AM CDT LABORATORY Comment:eGFR calculated us2020 CKD-EPI equation. Blood BLOOD SPECIMEN / Unknown Venipuncture / Unknown 09/14/2022 5:48 AM CDT 09/14/2022 5:53 AM CDT Senthil Stevenson MD LAB - BLOOD ORDERABL ES LABORATORY [facility] [address] Lab (1st floor, no room number) [place] [address], [facility] [phone] from Last 3 Months or Most Recently Relevant to Health Maintenance Advance Directives For more information, please contact: [phone] * Full Code (Latest Code Status on File) Date Activated Date Inactivated Comments 07/03/2022 10:27 AM 07/04/2022 8:35 PM All basic and advanced life-sustaining interventions are performed as appropriate Question Answer Comments Code status determined by: Discussion with patie nt/ legal decision maker * Full Code Date Activated Date Inactivated Comments 05/29/2022 9:22 AM 07/03/2022 5:31 AM Question Answer Comments Code status determined by: Discussion with patie nt/ legal decision maker * Full Code Date Activated Date Inactivated Comments 05/27/2022 8:24 PM 05/29/2022 9:22 AM All basic and advanced life-sustaining interventions are performed as appropriate Question Answer Comments Code status determined by: Discussion with patie nt/ legal decision maker Care Teams Scalder Relationship Specialty Start Date End Date No Ref-Primary, Physician PCP - General 04/14/22
--- OUTSIDE RECORDS SUMMARY | 2023-09-17 15:42 | XMS_ITS | Encounter Summary ---
Author Organization [facility] Address [address] [place] [address] Care Team Providers Care Doping Supervisor Name Role Phone Elsewhere, Pcp Primary Care Provider Unavailabl e Reason for Visit * Reason Onset Date Comments Results 09/11/2023 Encounter Details Date Type Department Care Team ([facility] st Contact Info) Description 09/11/2023 Clinical Communication Division of Nephrology and Hypertension, [facility], in [place], [place] [address] [place] [phone] Drew Mo, HALLE, C.N.P., M.S.N. [address] [place] [phone] Results Social History Tobacco Use Types Packs/Day Years [...] your living situation today? I have a [employer] place to live 11/14/2022 Sex and Gender Information Value Date Recorded Sex Assigned at Male 11/14/2022 11:03 AM CDT Gender Identity Male 11/14/2022 11:03 AM CDT Sexual Orientation Straight 11/14/2022 11 :03 AM CDT documented as of this encounter Miscellaneous Notes * Telephone Encounter - Lazara Fuller - 09/11/2023 2:08 PM CDT Caller is: patient Preferred Communication Method: [phone] (mobile) Reason for call: Patient would like to know the results of his recent EKG and X-ray. documented in this encounter Plan of Treatment Upcoming Encounters Date Type Department Care Team (Late st Contact Info) Description 10/09/2023 10:00 AM CDT Appointment Department of Cardiovascular Diseases in [address] [phone] Drew Mo APRN, C.N.P., M.S.N. [address] [place] [address] documented as of this encounter Visit Diagnoses Not on filedocumented in this encounter Care Teams Doping Supervisor Relationship Specialty Start Date End Date Elsewhere, Pcp PCP - General Internal Medicine 02/04/23 documented as of this encounter
--- OUTSIDE RECORDS SUMMARY | 2023-09-17 15:42 | XMS_ITS | Referral Summary ---
Author Organization [facility] Address [address] [place] [address] Care Team Providers Care Box Truck Washer Name Role Phone No Ref-Primary, Physician Primary [...] CDT Plan of Treatment Not on file Procedures Procedure Name Priority Date/Time Associated Diagnosis [...] >60 mL/min/1. 73m2 09/14/2022 6:18 AM CDT [facility] Comment:eGFR calculated usin 2020 CKD-EPI equation. Blood BLOOD SPECIMEN / Unknown Venipuncture / Unknown 09/14/2022 5:48 AM CDT 09/14/2022 5:53 AM CDT Senthil Stevenson MD LAB - BLOOD ORDERABL ES LABORATORY [facility] Lab [address] Lab (1st floor, no room number) [place] [address], [facility] [phone] from Last 3 Months or Most Recently Relevant to Health Maintenance Advance Directives For more information, please contact: [phone] * Full Code (Latest Code Status on [...] patie nt/ legal decision maker Care Teams Box Truck Washer Relationship Specialty Start Date End Date No Ref-Primary, Physician PCP - General 04/14/22
--- OUTSIDE RECORDS SUMMARY | 2023-09-17 15:42 | XMS_ITS | Referral Summary ---
Author Organization [facility] Address [address] [place] [address] Care Team Providers Care Financial Director Name Role Phone Elsewhere, Pcp Primary Care Provider Unavailabl e Source Comments Patient records contain information from all sites at [facility]. For routine questions regarding patient records, call [phone] during business hours, M-F 8:00 AM - 5:00 PM Central Time. Record requests for emergency care only can be directed to [phone] at any time.[facility] Encounters Date Type Department Care Team Description 09/11/2023 Clinical Communication Division of Nephrology and Hypertension, [facility], in [place], [place] [address] [place] [phone] Drew Mo APRN, C.N.P., M.S.N. Results 09/09/2023 3:53 PM CDT - 09/09/2023 11:59 PM CDT Hospital Encounter Department of Radiology in [address] [phone] Drew Mo APRN, C.N.P., M.S.N. Pain Pleuritic Chest Discharge Disposition: Home or Self Care 09/09/2023 3:45 PM CDT - 09/09/2023 3:52 PM CDT Hospital Encounter Department of Radiology in [address] [phone] Drew Mo APRN, C.N.P., M.S.N. Pain Pleuritic Chest Discharge Disposition: Home or Self Care 09/09/2023 Orders Only Division of Nephrology and Hypertension, [facility], in [place], [place] [address] [place] [phone] Drew Mo APRN, C.N.Olga., M.S.N. Pain Pleuritic Chest (Primary Dx) 08/04/2023 Orders Only Division of Nephrology and Hypertension, [facility], in [place], [place] [address] [place] [address] Drew Mo APRN, C.N.P., M.S.N. 07/25/2023 Refill Division of Nephrology and Hypertension in [place], [place] [address] [place] [address] Garth Burdick Jr., Eulogio.O. Med Refill 07/23/2023 Orders Only Division of Nephrology and Hypertension, [facility], in [place], [place] [address] [place] [address] Drew Mo APRN, C.N.P., M.S.N. 07/18/2023 Refill Division of Nephrology and Hypertension, [facility], in [place], [place] [address] [place] [address] Drew Mo APRN C.N.P., M.S.N. Med Refill 06/24/2023 Orders Only Division of Nephrology and Hypertension in [place], [place] [address] [place] [address] Garth Burdick Jr., D.O. 06/23/2023 Orders Only Division of Nephrology and Hypertension, [facility], in [place], [place] [address] [place] [address] Drew Mo APRN C.N.P., M.S.N. 06/19/2023 Clinical Communication Maco Alexis [facility] Trans[facility] Clinical Regeneration in [place], [place] [address] [place] [phone] Roseline Humphrey R.N., C.C.T.C. Phone Contact from Last 3 Months Allergies Active Allergy [...] your living situation today? I have a [facility] place to live 11/14/2022 Sex and Gender Information Value Date Recorded Sex Assigned at Male 11/14/2022 11:03 AM CDT Gender Identity Male 11/14/2022 11:03 AM CDT Sexual Orientation Straight 11/14/2022 11 :03 AM CDT Last Filed Vital Signs Vital Sign Reading Time Taken Comments Blood Pressure 160/89 05/18/2023 4:45 PM PATIENT ACCESS REPRESENTATIVE Pulse 78 05/18/2023 3:00 PM PATIENT ACCESS REPRESENTATIVE Temperature 36.5 ??C (97.7 ??F) 05/18/2023 2:47 PM CS T Respiratory Rate 20 05/18/2023 6:27 PM PATIENT ACCESS REPRESENTATIVE Oxygen Saturation 98% 05/18/2023 3:00 PM PATIENT ACCESS REPRESENTATIVE Inhaled Oxygen Concentration - - Weight 62 kg (136 lb 11 oz) 11/21/2022 12:56 PM CDT Height 165.1 cm (5' 5) 05/18/2023 5:18 AM PATIENT ACCESS REPRESENTATIVE Body Mass Index 22.45 11/21/2022 12:56 PM CDT Plan of Treatment Upcoming Encounters Date Type Department Care Team (Late st Contact Info) Description 10/09/2023 10:00 AM CDT Appointment Department of Cardiovascular Diseases in [address] [phone] Drew Mo APRN, C.N.P., M.S.N. [address] [place] [phone] Medical Devices Implanted Type Area Gas Station Supervisor Device Identifier Shelf Expiration Date Model / [...] METABOLIC PANEL, S/P STAT 05/18/2023 6:14 AM PATIENT ACCESS REPRESENTATIVE from Last 3 Months or Most Recently [...] CDT) Ventricular Rate ECG/Min 75 BPM MUSE MO Interval 150 ms MUSE QRSD Interval 118 ms MUSE QT Interval 416 ms MUSE QTC Interval 464 ms MUSE P [place] 69 degrees MUSE R [place] 81 degrees MUSE T Wave [place] 64 degrees MUSE 09/09/2023 3:43 PM CDT [...] increased Reviewed by ELENA Zimmerman Drew Mo APRN, C.N.P., M.S.N. ECG ORDE [facility] MUSE NA * (ABNORMAL) Basic Metabolic Panel (05/18/2023 6:14 AM PATIENT ACCESS REPRESENTATIVE) Potassium, P 6.0(CH) 3.6 - 5.2 mmol/L 05/18/2023 7:00 AM PATIENT ACCESS REPRESENTATIVE STMA Sodium, P 140 135 - 145 mmol/L 05/18/2023 6:59 AM PATIENT ACCESS REPRESENTATIVE STMA Chloride, P 98 98 - 107 mmol/L 05/18/2023 7:00 AM PATIENT ACCESS REPRESENTATIVE STMA Bicarbonate, P 26 22 - 29 mmol/L 05/18/2023 7:00 AM PATIENT ACCESS REPRESENTATIVE STMA Anion Gap, P 16(H) 7 - 15 05/18/2023 7:00 AM PATIENT ACCESS REPRESENTATIVE STMA BUN (Blood Urea Nitrogen), P 57(H) 8 - 24 mg/dL 05/18/2023 6:35 AM PATIENT ACCESS REPRESENTATIVE STMA Creatinine 12.93(H) 0.74 - 1.35 mg/dL 05/18/2023 6:35 AM PATIENT ACCESS REPRESENTATIVE STMA Estimated GFR (eGFR) <15(L) >=60 mL/min/BSA 05/18/2023 6:35 AM PATIENT ACCESS REPRESENTATIVE STMA Comment: Estimated GFR calculated using the 2020 CKD_EPI creatinine equation. Calcium, Total, P 9.5 8.6 - 10.0 mg/dL 05/18/2023 6:35 AM PATIENT ACCESS REPRESENTATIVE STMA Glucose, P 105 70 - 140 mg/dL 05/18/2023 6:35 AM PATIENT ACCESS REPRESENTATIVE STMA Blood (Blood, Venous) 05/18/2023 6:14 AM PATIENT ACCESS REPRESENTATIVE 05/18/2023 6:18 AM PATIENT ACCESS REPRESENTATIVE Lucy Herndon M.D., M.S. LAB BLOOD ADD-ON [facility] [address] [place] [address], [place] STMA [facility] [address] [place] [address] from Last 3 Months or Most Recently Relevant to Health Maintenance Advance Directives For more information, please contact: [phone] * Full Code (Latest Code Status on [...] Answer Comments Full Code: Discussed Care Teams Financial Director Relationship Specialty Start Date End Date Elsewhere, Pcp PCP - General Internal Medicine 02/04/23
--- OUTSIDE RECORDS SUMMARY | 2023-09-17 15:43 | XMS_ITS | Encounter Summary ---
Author Organization [facility] Address [address] [place] [address] Care Team Providers Care Keyboard Instrument Tuner Name Role Phone Elsewhere, Pcp Primary Care Provider Unavailabl e Encounter Details Date Type Department Care Team (Late st Contact Info) Description 07/23/2023 Orders Only Division of Nephrology and Hypertension, [facility], in [place], [place] [address] [place] [address] Drew Mo, HALLE, C.N.P., M.S.N. [address] [place] [address] Social History Tobacco Use Types Packs/Day Years [...] CDT Appointment Department of Cardiovascular Diseases in [address] [phone] Drew Mo, HALLE, C.N.P., M.S.N. 200 [place] [address] documented as of this encounter Visit Diagnoses Not on filedocumented in this encounter Care Teams Keyboard Instrument Tuner Relationship Specialty Start Date End Date Elsewhere, Pcp PCP - General Internal Medicine 02/04/23 documented as of this encounter
--- OUTSIDE RECORDS SUMMARY | 2023-09-17 15:43 | XMS_ITS | Encounter Summary ---
Author Organization [facility] Address [address] [place] [address] Care Team Providers Care Rubber Cutting Machine Tender Name Role Phone Elsewhere, Pcp Primary Care Provider Unavailabl e Encounter Details Date Type Department Care Team (Late st Contact Info) Description 06/18/2023 Orders Only Division of Nephrology and Hypertension, [facility], in [place], [place] [address] [place] [address] Drew Mo, HALLE, C.N.P., M.S.N. [address] [place] [address] Social History Tobacco Use Types Packs/Day Years [...] your living situation today? I have a [facility] place to live 11/14/2022 Sex and [...] CDT Appointment Department of Cardiovascular Diseases in [address] [phone] Drew Mo, HALLE, C.N.P., M.S.N. 200 [place] [address] documented as of this encounter Visit Diagnoses Not on filedocumented in this encounter Care Teams Rubber Cutting Machine Tender Relationship Specialty Start Date End Date Elsewhere, Pcp PCP - General Internal Medicine 02/04/23 documented as of this encounter
--- OUTSIDE RECORDS SUMMARY | 2023-09-17 15:43 | XMS_ITS | Encounter Summary ---
Author Organization [facility] Address [address] [place] [address] Care Team Providers Care Umbrella Finisher Name Role Phone Elsewhere, Pcp Primary Care Provider Unavailabl e Reason for Visit * Reason Comments Med Refill Encounter Details Date Type Department Care Team (Late st Contact Info) Description 07/18/2023 Refill Division of Nephrology and Hypertension, [facility], in [place], [place] [address] [place] [phone] Drew Mo, HALLE, C.N.P., M.S.N. [address] [place] [address] Med Refill Social History Tobacco Use Types Packs/Day Years [...] living situation today? I have a [facility] place to live 11/14/2022 Sex and [...] CDT Appointment Department of Cardiovascular Diseases in [address] [phone] Drew Mo, NUT PROCESS HELPER, C.N.P., M.S.N. [address] [place] [address] documented as of this encounter Visit Diagnoses Not on filedocumented in this encounter Care Teams Umbrella Finisher Relationship Specialty Start Date End Date Elsewhere, Pcp PCP - General Internal Medicine 02/04/23 documented as of this encounter
--- OUTSIDE RECORDS SUMMARY | 2023-09-17 15:43 | XMS_ITS | Encounter Summary ---
Author Organization [facility] Address [address] [place] [address] Care Team Providers Care Chief Credit Officer Name Role Phone Elsewhere, Pcp Primary Care Provider Unavailabl e Encounter Details Date Type Department Care Team (Late st Contact Info) Description 08/04/2023 Orders Only Division of Nephrology and Hypertension, [facility], in [place], [place] [address] [place] [address] Drew Mo, HALLE, C.N.P., M.S.N. [address] [place] [address] Social History Tobacco Use Types Packs/Day Years [...] your living situation today? I have a [facility] place to live 11/14/2022 Sex [...] CDT Appointment Department of Cardiovascular Diseases in [address] [phone] Drew Mo, HALLE, C.N.P., M.S.N. 200 [place] [address] documented as of this encounter Visit Diagnoses Not on filedocumented in this encounter Care Teams Chief Credit Officer Relationship Specialty Start Date End Date Elsewhere, Pcp PCP - General Internal Medicine 02/04/23 documented as of this encounter
--- OUTSIDE RECORDS SUMMARY | 2023-09-17 15:43 | XMS_ITS | Encounter Summary ---
Author Organization [facility] Address [address] [place] [address] Care Team Providers Care Catering Truck Driver Name Role Phone Elsewhere, Pcp Primary Care Provider Unavailabl e Reason for Visit * Reason Onset Date Comments Phone Contact 05/14/2023 Encounter Details Date Type Department Care Team (Latest Contact Info) Description 05/14/2023 Clinical Communication Maco Espinoza [facility] for Transplantation and Clinical Regeneration in [place], [place] [address] [place] [address] Roseline Humphrey R.N., C.C.T.C. [address] [place] [phone] Phone Contact Social History Tobacco Use Types [...] your living situation today? I have a [facility] place to live 11/14/2022 Sex and Gender Information Value Date Recorded Sex Assigned at Male 11/14/2022 11:03 AM CDT Gender Identity Male 11/14/2022 11:03 AM CDT Sexual Orientation Straight 11/14/2022 11 :03 AM CDT documented as of this encounter Miscellaneous Notes * Telephone Encounter - Roseline Humphrey RJuan CN. - 06/17/2023 11:07 AM CST PLAN The following information was provided: Salbador called to say that he has done the things we have asked of him and would like to start the evaluation with us again. He saw Neurology and cardiology in October of last year and the notes are in the computer. He states he is being compliant with medications and dialysis and has his own apartment since September. He states he is in the process of getting set up with psychiatry, since he has to fill out the insurance information to get that established and then he can call someone to see on the listhe has. I will have the appropriate people evaluate things and see if he can start again. Information/Education: patient/caller able to teach back The following references were used: nursing clinical judgement L BONDING ASSEMBLER documented in this encounter Plan of Treatment Upcoming Encounters Date Type Department Care Team (Late st Contact Info) Description 10/09/2023 10:00 AM CDT Appointment Department of Cardiovascular Diseases in [address] [phone] Drew Mo P, PERL PROGRAMMER, C.N.P., M.S.N. [address] [place] [phone] documented as of this encounter Visit Diagnoses Not on filedocumented in this encounter Care Teams Catering Truck Driver Relationship Specialty Start Date End Date Elsewhere, Pcp PCP - General Internal Medicine 02/04/23 documented as of this encounter
--- OUTSIDE RECORDS SUMMARY | 2023-09-17 15:43 | XMS_ITS | Encounter Summary ---
Author Organization [facility] Address [address] [place] [address] Care Team Providers Care Electronic Imager Name Role Phone Elsewhere, Pcp Primary Care Provider Unavailabl e Encounter Details Date Type Department Care Team (Late st Contact Info) Description 06/23/2023 Orders Only Division of Nephrology and Hypertension, [facility], in [place], [place] [address] [place] [address] Drew Mo, HALLE, C.N.P., M.S.N. [address] [place] [address] Social History Tobacco Use Types Packs/Day Years [...] living situation today? I have a [facility] place to live 11/14/2022 Sex and [...] CDT Appointment Department of Cardiovascular Diseases in [address] [phone] Drew Mo, HALLE, C.N.P., M.S.N. 200 [place] [address] documented as of this encounter Visit Diagnoses Not on filedocumented in this encounter Care Teams Electronic Imager Relationship Specialty Start Date End Date Elsewhere, Pcp PCP - General Internal Medicine 02/04/23 documented as of this encounter
--- OUTSIDE RECORDS SUMMARY | 2023-09-17 15:43 | XMS_ITS | Encounter Summary ---
Author Organization [facility] Address [address] [place] [address] Care Team Providers Care Screw Machine Adjuster Automatic Name Role Phone Elsewhere, Pcp Primary Care Provider Unavailabl e Reason for Referral * Outpatient (Routine) - Closed Specialty Diagnoses / Procedures Referred By Contac t Referred To Contact Diagnoses Pain Pleuritic Chest Procedures ECG 12 Lead Drew Mo APRN C.N.P., M.S.N. [address] [place] [phone] [facility] Region Referral ID Status Reason Start Date Expiration Date Visits Re quested Visits Authorized [id number] Closed 09/09/2023 09/08/2024 1 1 Reason for Visit * Outpatient (Routine) - Closed Specialty Diagnoses / Procedures Referred By Contac t Referred To Contact Diagnoses Pain Pleuritic Chest Procedures ECG 12 Lead Drew Mo APRN, C.N.P., M.S.N. [address] [place] [phone] [facility] Region Referral ID Status Reason Start Date Expiration Date Visits Re quested Visits Authorized [id number] Closed 09/09/2023 09/08/2024 1 1 Encounter Details Date Type Department Care Team (Latest Contact Info) Description 09/09/2023 3:45 PM CDT - 09/09/2023 3:52 PM CDT Hospital Encounter Department of Radiology in [address] [phone] Drew Mo, HALLE, C.N.P., M.S.N. [address] [place] [address] Pain Pleuritic Chest Discharge Disposition: Home or [...] CDT Appointment Department of Cardiovascular Diseases in [address] [phone] Drew Mo, HALLE, C.N.P., M.S.N. [address] [place] [phone] documented as of this encounter Procedures Procedure Name Priority Date/Time Associated Diagnosis Comments ECG Routine 09/09/2023 3:43 PM CDT Pain Pleuritic Chest documented in this encounter Results * ECG 12 Lead (09/09/2023 3:43 PM CDT) Ventricular Rate ECG/Min 75 BPM MUSE [place] Interval 150 ms MUSE QRSD Interval 118 ms MUSE QT Interval 416 ms MUSE QTC Interval 464 ms MUSE P Vivian 69 degrees MUSE R Vivian 81 degrees MUSE T Wave Vivian 64 degrees MUSE 09/09/2023 3:43 PM CDT [...] Zimmerman Drew Mo APRN C.N.P., M.S.N. ECG [facility] Organization Address City/State/ZIP Co de Phone Number MUSE NA documented in this encounter Visit Diagnoses Diagnosis Pain Pleuritic Chest documented in this encounter Care Teams Screw Machine Adjuster Automatic Relationship Specialty Start Date End Date Elsewhere, Pcp PCP - General Internal Medicine 02/04/23 documented as of this encounter
--- OUTSIDE RECORDS SUMMARY | 2023-09-17 15:43 | XMS_ITS | Encounter Summary ---
Author Organization [facility] Address [address] [place] [address] Care Team Providers Care Sleeve Ironer Name Role Phone Elsewhere, Pcp Primary Care Provider Unavailabl e Encounter Details Date Type Department Care Team (Late st Contact Info) Description 06/24/2023 Orders Only Division of Nephrology and Hypertension in [place], [place] [address] [place] [address] Garth Burdick Jr., D.O. [address] [place] [address] Social History Tobacco Use Types Packs/Day Years [...] CDT Appointment Department of Cardiovascular Diseases in [address] [phone] Drew Mo, HALLE, C.N.P., M.S.N. [address] [place] [address] documented as of this encounter Visit Diagnoses Not on filedocumented in this encounter Care Teams Sleeve Ironer Relationship Specialty Start Date End Date Elsewhere, Pcp PCP - General Internal Medicine 02/04/23 documented as of this encounter
--- OUTSIDE RECORDS SUMMARY | 2023-09-17 15:43 | XMS_ITS | Encounter Summary ---
Author Organization [facility] Address [address] [place] [address] Care Team Providers Care Dinkey Press Operator Name Role Phone Elsewhere, Pcp Primary Care Provider Unavailabl e Reason for Visit * Reason Comments Med Refill Encounter Details Date Type Department Care Team (Late st Contact Info) Description 07/25/2023 Refill Division of Nephrology and Hypertension in [place], [place] [address] [place] [address] Garth Burdick Jr., D.O. [address] [place] [address] Med Refill Social History Tobacco Use Types [...] your living situation today? I have a [facility] place to live 11/14/2022 Sex [...] CDT Appointment Department of Cardiovascular Diseases in [address] [phone] Drew Mo, HALLE, C.N.P., M.S.N. [address] [place] [address] documented as of this encounter Visit Diagnoses Not on filedocumented in this encounter Care Teams Dinkey Press Operator Relationship Specialty Start Date End Date Elsewhere, Pcp PCP - General Internal Medicine 02/04/23 documented as of this encounter
--- OUTSIDE RECORDS SUMMARY | 2023-09-17 15:43 | XMS_ITS | Encounter Summary ---
Author Organization [facility] Address [address] [place] [address] Care Team Providers Care Farm Equipment Service Technician Name Role Phone Elsewhere, Pcp Primary Care Provider Unavailabl e Reason for Referral * Outpatient (Routine) - Closed Specialty Diagnoses / Procedures Referred By Contac t Referred To Contact Diagnoses Pain Pleuritic Chest Procedures DX Chest AP or PA and Lateral 2 Views Drew Mo APRN C.N.PJuan C, M.S.N. [address] [place] [phone] [facility] Region Referral ID Status Reason Start Date Expiration Date Visits Re quested Visits Authorized [id number] Closed 09/09/2023 09/08/2024 1 1 * Outpatient (Routine) - Closed Specialty Diagnoses / Procedures Referred By Contac t Referred To Contact Diagnoses Pain Pleuritic Chest Procedures ECG 12 Lead Drew Mo APRN C.N.P., M.S.N. [address] [place] [phone] [facility] Region Referral ID Status Reason Start Date Expiration Date Visits Re quested Visits Authorized [id number] Closed 09/09/2023 09/08/2024 1 1 * Cardiovascular-Diagnostic (Routine) - Authorized Specialty Diagnoses / Procedures Referred By Contakin t Referred To Contact Diagnoses Pain Pleuritic Chest Procedures Echo Stress Drew Mo APRN, C.N.Corrine, M.S.N. [address] [place] [phone] [facility] Region Referral ID Status Reason Start Date Expiration Date V isits Requested Visits Authorized [id number] Authorized 09/09/2023 09/08/2024 1 1 Encounter Details Date Type Department Care Team (Late st Contact Info) Description 09/09/2023 Orders Only Division of Nephrology and Hypertension, [facility], in [place], [place] [address] [place] [phone] Drew Mo APRN, C.NHugo, M.S.N. [address] [place] [phone] Pain Pleuritic Chest (Primary Dx) Social History Tobacco Use Types [...] CDT Appointment Department of Cardiovascular Diseases in [place], [place] [address] [place] [phone] Drew Mo, HALLE, C.N.P., M.S.N. [address] [place] [address] Scheduled Orders Name Type Priority Associated Diagnoses Orde r Schedule Echo Stress Echocardiography Routine Pain Pleuritic Chest Expected: 09/09/2023, Expires: 12/09/2024 documented as of this encounter Results * DX Chest AP [...] CDT) Ventricular Rate ECG/Min 75 BPM MUSE [place] Interval 150 ms MUSE QRSD Interval 118 ms MUSE QT Interval 416 ms MUSE QTC Interval 464 ms MUSE P [place] 69 degrees MUSE R [place] 81 degrees MUSE T Wave [place] 64 degrees MUSE 09/09/2023 3:43 PM CDT [...] duration has increased Reviewed by ELENA Zimmerman Drwe Olga Mo APRN CJuan CNRashida., M.S.N. ECG [facility]DE [facility] Organization Address City/State/ZIP Co de Phone Number MUSE NA documented in this encounter Visit Diagnoses Diagnosis Pain Pleuritic Chest- Primary Pain Pleuritic Chest Pain Pleuritic Chest documented in this encounter Care Teams Farm Equipment Service Technician Relationship Specialty Start Date End Date Elsewhere, Pcp PCP - General Internal Medicine 02/04/23 documented as of this encounter
--- OUTSIDE RECORDS SUMMARY | 2023-09-17 15:43 | XMS_ITS | Clinical Summary ---
Author Organization [facility] Address [place], [place] [address] Care Team Providers Care Health Professional Name Role Phone Pcp, No Primary Care [...] BY MOUTH TWICE DAILY FOR EAR INFECTION 03/13/2022 Active amoxicillin-clavulanat e 875-125 mg tablet (AUGMENTIN)Indications :Other recurrent acute nonsuppurative otitis media of left ear Take 1 Tablet by mouth two times daily with meals. 10 Tablet 03/20/2022 Active Social History Tobacco Use Types Packs/Day Years Used Date Smoking Tobacco: Never Assessed Sex and Gender Information Value Date Recorded Sex Assigned at Not on file Gender Identity Not on file Sexual Orientation Not on file Last Filed Vital Signs Vital Sign Reading Time Taken Comments Blood Pressure 175/96 03/20/2022 7:24 PM ONCOLOGY REP Pulse 98 03/20/2022 7:24 PM ONCOLOGY REP Temperature 37.2 ??C (99 ??F) 03/20/2022 7:24 PM ONCOLOGY REP Respiratory Rate 16 03/20/2022 7:24 PM ONCOLOGY REP Oxygen Saturation 99% 03/20/2022 7:24 PM ONCOLOGY REP Inhaled Oxygen Concentration - - Weight 70.5 kg (155 lb 8 oz) 03/20/2022 7:24 PM ONCOLOGY REP Height 165.1 cm (5' 5) 03/20/2022 7:24 PM ONCOLOGY REP Body Mass Index 25.88 03/20/2022 7:24 PM ONCOLOGY REP Plan of Treatment Not on file Care Teams Health Professional Relationship Specialty Start Date End Date Pcp, No . PCP - General 03/20/22
--- OUTSIDE RECORDS SUMMARY | 2023-09-17 15:43 | XMS_ITS | Encounter Summary ---
Author Organization [facility] Address [address] [place] [address] Care Team Providers Care Nursing Faculty Name Role Phone Elsewhere, Pcp Primary Care Provider Unavailabl e Reason for Visit * Reason Onset Date Comments Phone Contact 06/19/2023 Encounter Details Date Type Department Care Team (Latest Contact Info) Description 06/19/2023 Clinical Communication Maco Espinoza [facility] for Transplantation and Clinical Regeneration in [place], [place] [address] [place] [address] Roseline Humphrey R.N., C.C.T.C. [address] [place] [phone] Phone Contact Social History Tobacco Use Types [...] Notes * Telephone Encounter - Roseline Humphrey R.N. - 06/19/2023 10:29 AM CST PLAN The following information was provided: Salbador was informed that he has not yet completed the things we have asked of him. He needs to establish with a mental health provider which he states he will look for one after he fills out the insurance paperwork. He will need to see them for several months before we can see if he should come for an evaluation. At that time we can re-evaluate and see if he is able to come for an evaluation. I did inform him that he will have to sign a release with his mental health provider to release the records to us for review as well. This may take some time since it is not easy to get established with someone and then he will have had to complete several visits over several months time to see if he can come forward, but at this time we can not start the evaluation. He understands and does not have any questions at this time. Information/Education: patient/caller able to teach back The following references were used: nursing clinical judgement ICAL RESOURCE NURSE documented in this encounter Plan of Treatment Upcoming Encounters Date Type Department Care Team (Late st Contact Info) Description 10/09/2023 10:00 AM CDT Appointment Department of Cardiovascular Diseases in [address] [phone] Drew Mo P, HALLE, C.N.P., M.S.N. [address] [place] [phone] documented as of this encounter Visit Diagnoses Not on filedocumented in this encounter Care Teams Nursing Faculty Relationship Specialty Start Date End Date Elsewhere, Pcp PCP - General Internal Medicine 02/04/23 documented as of this encounter
== END 2023-09-17 15:39 | disposition home or self-care (01) ==
LOC: NFLDUCREF 15:41
PROVIDERS: PCP Internal Medicine; Visit Provider Nurse Practitioner Family
DX: M79.645 Pain in left finger(s) (principal)
CPT/HCPCS: 84550

== ENCOUNTER 2024-01-09 15:05 | Outpatient (CLI) | payer MEDICARE, MEDICAID, SELFPAY ==
--- OUTSIDE RECORDS SUMMARY | 2024-01-09 15:09 | XMS_ITS | Referral Summary ---
Author Organization [place] Address [address] [facility] [place] [address] Care Team Providers Care Albacore Fishing Boat Crewman Name Role Phone No Ref-Primary, Physician Primary Care Provider Encounters Date Type Department Care Team Description 12/11/2023 Travel 12/11/2023 12:00 PM CDT Office Visit [facility] [place] [address] [place] [address] Tanja Kelly, PARhona Contact lens stuck (Primary Dx) from Last 3 Months Allergies Active Allergy Reactions Criticality Noted Date Comments Clonidine Rash Medium 12/10/2022 Coconut (Cocos Nucifera) Hives Low 06/24/2022 Coconut Oil Hives Low 10/16/2022 Diphenhydramine Anxiety,Other (See Comments) High 03/20/2022 Pt reported seizure after having IV benadryl Hydrocodone High 03/20/2022 Other reaction(s): Seizures Morphine Anaphylaxis High 03/20/2022 Nsaids Other (See Comments) 03/20/2022 Medications Medication Sig Dispensed Refills Start Date End Date Status lisinopril (ZESTRIL) 20 MG tabletIndications:Jeff ign essential hypertension Take 1 tablet (20 mg) by mouth daily 30 tablet 1 05/30/2022 Active amLODIPine (NORVASC) 10 MG tabletIndications:Jeff ign essential hypertension Take 1 tablet (10 mg) by mouth daily 30 tablet 1 05/29/2022 Active hydrALAZINE (APRESOLINE) 50 MG tabletIndications:Jeff ign essential hypertension Take 1 tablet (50 mg) by mouth 2 times daily 60 tablet 1 05/29/2022 Active minoxidil (LONITEN) 2.5 MG tabletIndications:Jeff ign essential hypertension Take 1 tablet (2.5 mg) by mouth daily 30 tablet 1 05/29/2022 Active sertraline (ZOLOFT) 100 MG tablet Take 100 mg by mouth daily 10/15/2023 10/14/2024 Active traZODone (DESYREL) 50 MG tablet Take 50 mg by mouth 04/15/2023 04/14/2024 Active torsemide (DEMADEX) 100 MG tablet Take 100 mg by mouth 06/18/2023 06/17/2024 Active calcium acetate (CALPHRON) 667 MG TABS tablet Take 1,334 mg by mouth Active B Hikxfkf-J-Awfwl Acid (DIALYVITE) TABS Take 1 tablet by mouth daily (with dinner) 02/24/2023 02/24/2024 Active albuterol (PROAIR HFA/PROVENTIL HFA/VENTOLIN HFA) 108 (90 Base) MCG/ACT inhaler Inhale 2 puffs into the lungs 02/11/2023 Active moxifloxacin (VIGAMOX) 0.5 % ophthalmic solutionIndications:C ontact lens stuck Place 1 drop into both eyes 3 times daily for 7 days 3 mL 12/11/2023 12/18/2023 Active Problems Problem Noted Date Diagnosed Date Elevated troponin 07/03/2022 Hypertensive urgency 07/03/2022 Chest pain, unspecified type 07/03/2022 Hyperkalemia 05/27/2022 Jaw pain 05/27/2022 Spell of altered consciousness 05/27/2022 Headache 05/27/2022 Social History Tobacco Use Types Packs/Day Years Used Date Smoking Tobacco: Never Smokeless Tobacco: Never Tobacco Cessation:Counseling Given: Not Answered Adolescent Education Answer Date Record ed Getting School Help Needed Not on file 01/18 Sex and Gender Information Value Date Recorded Sex Assigned at Not on file Gender Identity Not on file Sexual Orientation Not on file Last Filed Vital Signs Vital Sign Reading Time Taken Comments Blood Pressure 138/94 12/11/2023 12:36 PM CDT Pulse 63 12/11/2023 12:11 PM CDT Temperature 36.8 ??C (98.3 ??F) 09/14/2022 5:18 AM CD T Respiratory Rate 16 12/11/2023 12:11 PM CDT Oxygen Saturation 100% 12/11/2023 12:11 PM CDT Inhaled Oxygen Concentration - - Weight 65.8 kg (145 lb) 12/11/2023 12:11 PM CDT Height 165.1 cm (5' 5) 12/11/2023 12:11 PM CDT Body Mass Index 24.13 12/11/2023 12:11 PM CDT Plan of Treatment Not on file Procedures Procedure Name Priority Date/Time Associated Diagnosis Comments ID REMOVE FOREIGN BODY SIMPLE Routine 12/11/2023 1:24 PM CDT Contact lens stuck ID REMOVE FOREIGN BODY SIMPLE Routine 12/11/2023 1:12 PM CDT Contact lens stuck COMPREHENSIVE METABOLIC PANEL STAT 09/14/2022 5:48 AM CDT from Last 3 Months or Most Recently Relevant to Health Maintenance Results * (ABNORMAL) Comprehensive metabolic panel (09/14/2022 5:48 AM CDT) Sodium 137 136 - 145 mmol/L 09/14/2022 6:18 AM CDT LABORATORY Potassium 4.4 3.4 - 5.3 mmol/L 09/14/2022 6:18 AM CDT LABORATORY Chloride 93(L) 98 - 107 mmol/L [...] 6:18 AM CDT [facility] LAB[facility]AT[facility] Comment:eGFR calculated us2020 CKD-EPI equation. Blood BLOOD SPECIMEN / Unknown Venipuncture / Unknown 09/14/2022 5:48 AM CDT 09/14/2022 5:53 AM CDT Senthil Stevenson MD LAB - BLOOD ORDERABL ES [facility] LABORATORY [facility] [address] [facility] (1st floor, no room number) [place] [address], [facility] [phone] from Last 3 Months or Most Recently Relevant to Health Maintenance Advance Directives For more information, please contact: [phone] * Full Code (Latest Code Status on [...] patie nt/ legal decision maker Care Teams Albacore Fishing Boat Crewman Relationship Specialty Start Date End Date No Ref-Primary, Physician PCP - General 04/14/22
--- OUTSIDE RECORDS SUMMARY | 2024-01-09 15:09 | XMS_ITS | Referral Summary ---
Author Organization [facility] Address [address] [place] [address] Care Team Providers Care Stockroom Associate Name Role Phone Elsewhere, Pcp Primary Care Provider Unavailabl e Source Comments Patient records contain information from all sites at [facility]. For routine questions regarding patient records, call [phone] during business hours, M-F 8:00 AM - 5:00 PM Central Time. Record requests for emergency care only can be directed to [phone] at any time.[facility] Encounters Date Type Department Care Team Description 01/08/2024 Clinical Communication Maco Alexis [facility] for Transplantation and Clinical Regeneration in [place], [place] [address] [place] [phone] Jo Baldwin M.S.Emelyn., L.I.C.S.W. 12/23/2023 Orders Only Division of Nephrology and Hypertension, [facility], in [place], [place] [address] [place] [phone] Drew Mo APRN C.N.P., M.S.N. Hypertensive Chronic Kidney Disease With Stage 5 Chronic Kidney Disease Or End Stage Renal Disease (HCC) (Primary Dx) 11/26/2023 Orders Only Division of Nephrology and Hypertension, [facility], in [place], [place] [address] [place] [phone] Drew Mo APRN C.N.P., M.S.N. 11/19/2023 Clinical Communication Department of Cardiovascular Medicine in [place], [place] [address] [place] [phone] Construction EconomistConstantin M.D. Triage 11/19/2023 Orders Only Division of Nephrology and Hypertension in [place], [place] [address] [place] [address] Concetta Mejía M.D., Ph.D. Pain Chest (Primary Dx) 11/14/2023 Clinical Communication Maco ferreira [facility] for Transplantation and Clinical Regeneration in [place], [place] [address] [place] [address] Kehinde Rausch 10/31/2023 Orders Only Division of Nephrology and Hypertension in [place], [place] [address] [place] [address] Concetta Mejía M.D., Ph.D. 10/15/2023 Orders Only Division of Nephrology and Hypertension, [facility], in [place], [place] [address] [place] [address] Drew Mo, HALLE, C.N.P., M.S.N. from Last 3 Months Allergies [...] (three) times a day with meals. Active cyanocobalamin (vitamin B-12) 1,000 mcg tablet [...] daily. 90 tablet 3 07/29/2023 07/28/2024 Active sertraline (Zoloft) 100 mg tablet Take 1 tablet (100 mg total) by mouth daily. 90 tablet 3 10/15/2023 10/14/2024 Active rOPINIRole (Requip) 0.5 mg tablet Take 1 tablet (0.5 mg total) by mouth 3 (three) times a day. 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 Hemodialysis Status 02/05/2023 Abdominal Pain 02/05/2023 Failure Renal End Stage 10/20/2022 Hypertensive Heart And Chron ic Kidney Disease With Heart Failure And With Stage 5 Chronic Kidney Disease Or End Stage Renal Disease 10/20/2022 Anemia 10/20/2022 [...] Administration Dates Next Due HepB Adult 09/02/2017 Influenza, Unspecified 02/06/2021,01/31/2020, PCV13 06/12/2020 PPD Test 11/27/2021,,11/20/2021,2020,08/11/2019,08/11/2018,08/26/2017 Pneumococcal Conjugate(PCV), Unspecified 09/02/2017 SARS-COV-2 (COVID-19) - MODERNA(Discontinued) 03/28/2021,02/26/2021 influenza trivalent vaccine (6 months and older)(PF) 01/31/2020,02/11/2019,02/03/2018 Social History Tobacco Use Types Packs/Day Years [...] living situation today? I have a [facility] place to live 11/14/2022 Sex and Gender Information Value Date Recorded Sex Assigned at Male 11/14/2022 11:03 AM CDT Gender Identity Male 11/14/2022 11:03 AM CDT Sexual Orientation Straight 11/14/2022 11 :03 AM CDT Last Filed Vital Signs Vital Sign Reading Time Taken Comments Blood Pressure 160/89 05/18/2023 4:45 PM GRAPHIC ARTS INSTRUCTOR Pulse 78 05/18/2023 3:00 PM GRAPHIC ARTS INSTRUCTOR Temperature 36.5 ??C (97.7 ??F) 05/18/2023 2:47 PM CS T Respiratory Rate 20 05/18/2023 6:27 PM GRAPHIC ARTS INSTRUCTOR Oxygen Saturation 98% 05/18/2023 3:00 PM GRAPHIC ARTS INSTRUCTOR Inhaled Oxygen Concentration - - Weight 62 kg (136 lb 11 oz) 11/21/2022 12:56 PM CDT Height 165.1 cm (5' 5) 05/18/2023 5:18 AM GRAPHIC ARTS INSTRUCTOR Body Mass Index 22.45 11/21/2022 12:56 PM CDT Plan of Treatment Upcoming Encounters Date Type Department Care Team (Latest Contact Info) Description 02/12/2024 9:00 AM CDT Appointment Department of Laboratory Medicine and Pathology, [facility] in [place], [place] [address] [place] [phone] Concetta Mejía M.D., Ph.D. [address] [place] [phone] 02/12/2024 9:20 AM CDT Ancillary Procedure Department of Cardiovascular Medicine in [place], [place] [address] [place] [phone] Concetta Mejía M.D., Ph.D. [address] [place] [phone] 02/12/2024 10:15 AM CDT Appointment Department of Radiology, [facility] in [place], [place] [address] [place] [phone] Concetta Mejía M.D., Ph.D. [address] [place] [phone] 02/12/2024 11:40 AM CDT Appointment Department of Radiology, [facility] in [place], [place] [address] [place] [phone] Concetta Mejía M.D., Ph.D. [address] [place] [phone] 02/12/2024 12:40 PM CDT Appointment Department of Cardiovascular Diseases in [place], [place] [address] [place] [phone] Concetta Mejía M.D., Ph.D. [address] [place] [phone] 02/12/2024 1:00 PM CDT Appointment Department of Radiology, [facility], in [place], [place] [address] [place] [phone] Concetta Mejía M.D., Ph.D. [address] [place] [phone] 02/13/2024 9:00 AM CDT Clinical Communication Virtual Review in [place], [place] [address] [place] [phone] 02/17/2024 9:00 AM CDT Comprehensive Visit Department of Cardiovascular Medicine in [place], [place] [address] [place] [phone] Isma Verde M.D. [address] [place] [phone] Medical Devices Implanted Type Area Reed Maker Device Identifier Shelf Expiration Date Model / Serial / Lot Vascular Graft Vascular Graft Left: Arm Procedures Procedure Name Priority Date/Time Associated Diagnosis Comments BASIC METABOLIC PANEL, S/P STAT 05/18/2023 6:14 AM GRAPHIC ARTS INSTRUCTOR from Last 3 Months or Most Recently Relevant to Health Maintenance Results * (ABNORMAL) Basic Metabolic Panel (05/18/2023 6:14 AM GRAPHIC ARTS INSTRUCTOR) Potassium, P 6.0(CH) 3.6 - 5.2 mmol/L 05/18/2023 7:00 AM GRAPHIC ARTS INSTRUCTOR STMA Sodium, P 140 135 - 145 mmol/L 05/18/2023 6:59 AM GRAPHIC ARTS INSTRUCTOR STMA Chloride, P 98 98 - 107 mmol/L 05/18/2023 7:00 AM GRAPHIC ARTS INSTRUCTOR STMA Bicarbonate, P 26 22 - 29 mmol/L 05/18/2023 7:00 AM GRAPHIC ARTS INSTRUCTOR STMA Anion Gap, P 16(H) 7 - 15 05/18/2023 7:00 AM GRAPHIC ARTS INSTRUCTOR STMA BUN (Blood Urea Nitrogen), P 57(H) 8 - 24 mg/dL 05/18/2023 6:35 AM GRAPHIC ARTS INSTRUCTOR STMA Creatinine 12.93(H) 0.74 - 1.35 mg/dL 05/18/2023 6:35 AM GRAPHIC ARTS INSTRUCTOR STMA Estimated GFR (eGFR) <15(L) >=60 mL/min/BSA 05/18/2023 6:35 AM GRAPHIC ARTS INSTRUCTOR STMA Comment: Estimated GFR calculated using the 2020 CKD_EPI creatinine equation. Calcium, Total, P 9.5 8.6 - 10.0 mg/dL 05/18/2023 6:35 AM GRAPHIC ARTS INSTRUCTOR STMA Glucose, P 105 70 - 140 mg/dL 05/18/2023 6:35 AM GRAPHIC ARTS INSTRUCTOR STMA Blood (Blood, Venous) 05/18/2023 6:14 AM GRAPHIC ARTS INSTRUCTOR 05/18/2023 6:18 AM GRAPHIC ARTS INSTRUCTOR Lucy Herndon M.D., M.S. LAB BLOOD ADD-ON [facility] [address] [place] [address], [facility] [address] [place] [address] from Last 3 Months or Most Recently Relevant to Health Maintenance Advance Directives For more information, please contact: [phone] * Full Code (Latest Code Status on [...] Answer Comments Full Code: Discussed Care Teams Stockroom Associate Relationship Specialty Start Date End Date Elsewhere, Pcp PCP - General Internal Medicine 02/04/23
--- OUTSIDE RECORDS SUMMARY | 2024-01-09 15:09 | XMS_ITS ---
Author Organization [facility] Address [address] [place] [address] Care Team Providers Care Stamping Die Maker Bench Name Role Phone Elsewhere, Pcp Primary Care Provider Unavailabl e Procedures Procedure Name Priority Date/Time Associated Diagnosis Comments BASIC METABOLIC PANEL, S/P STAT 05/18/2023 6:14 AM RAPID OUTSOLE STITCHER from Last 3 Months or Most Recently [...] Comments Blood Pressure 160/89 05/18/2023 4:45 PM RAPID OUTSOLE STITCHER Pulse 78 05/18/2023 3:00 PM RAPID OUTSOLE STITCHER Temperature 36.5 ??C (97.7 ??F) 05/18/2023 2:47 PM CS T Respiratory Rate 05/18/2023 6:27 PM RAPID OUTSOLE STITCHER Oxygen Saturation 98% 05/18/2023 3:00 PM RAPID OUTSOLE STITCHER Inhaled Oxygen Concentration - - Weight 62 kg (136 lb 11 oz) 11/21/2022 12:56 PM CDT Height 165.1 cm (5' 5) 05/18/2023 5:18 AM RAPID OUTSOLE STITCHER Body Mass Index 22.45 11/21/2022 12:56 PM CDT Results * (ABNORMAL) Basic Metabolic Panel (05/18/2023 6:14 AM RAPID OUTSOLE STITCHER) Potassium, P 6.0(CH) 3.6 - 5.2 mmol/L 05/18/2023 7:00 AM RAPID OUTSOLE STITCHER STMA Sodium, P 140 135 - 145 mmol/L 05/18/2023 6:59 AM RAPID OUTSOLE STITCHER STMA Chloride, P 98 98 - 107 mmol/L 05/18/2023 7:00 AM RAPID OUTSOLE STITCHER STMA Bicarbonate, P 26 22 - 29 mmol/L 05/18/2023 7:00 AM RAPID OUTSOLE STITCHER STMA Anion Gap, P 16(H) 7 - 15 05/18/2023 7:00 AM RAPID OUTSOLE STITCHER STMA BUN (Blood Urea Nitrogen), P 57(H) 8 - 24 mg/dL 05/18/2023 6:35 AM RAPID OUTSOLE STITCHER STMA Creatinine 12.93(H) 0.74 - 1.35 mg/dL 05/18/2023 6:35 AM RAPID OUTSOLE STITCHER STMA Estimated GFR (eGFR) <15(L) >=60 mL/min/BSA 05/18/2023 6:35 AM RAPID OUTSOLE STITCHER STMA Comment: Estimated GFR calculated using the 2020 CKD_EPI creatinine equation. Calcium, Total, P 9.5 8.6 - 10.0 mg/dL 05/18/2023 6:35 AM RAPID OUTSOLE STITCHER STMA Glucose, P 105 70 - 140 mg/dL 05/18/2023 6:35 AM RAPID OUTSOLE STITCHER STMA Blood (Blood, Venous) 05/18/2023 6:14 AM RAPID OUTSOLE STITCHER 05/18/2023 6:18 AM RAPID OUTSOLE STITCHER Lucy Herndon M.D., M.S. LAB BLOOD ADD-ON [facility] [address] [place] [address], [facility] STMA [facility] [address] [place] [address] from Last 3 Months or Most Recently Relevant to Health Maintenance
--- OUTSIDE RECORDS SUMMARY | 2024-01-09 15:09 | XMS_ITS | Encounter Summary ---
Author Organization [facility] Address [address] [place] [address] Care Team Providers Care Facilities Operations Technician Name Role Phone Elsewhere, Pcp Primary Care Provider Unavailabl e Reason for Visit * Reason Onset Date Comments Triage 11/19/2023 Encounter Details Date Type Department Care Team (Latest Contact Info) Description 11/19/2023 Clinical Communication Department of Cardiovascular Medicine in [place], [place] [address] [place] [phone] Hand StemmerConstantin M.D. Triage Social History Tobacco Use Types Packs/Day Years [...] living situation today? I have a [facility] place to live 11/14/2022 Sex and Gender Information Value Date Recorded Sex Assigned at Male 11/14/2022 11:03 AM CDT Gender Identity Male 11/14/2022 11:03 AM CDT Sexual Orientation Straight 11/14/2022 11 :03 AM CDT documented as of this encounter Progress Notes * Regina Barkley R.N. - 11/21/2023 9:03 AM CDT Images from the original note were not included. Centralized Cardiology Triage The following information has been gathered from review of available medical records as of 11/21/23for triage purposes.. It is not a comprehensive summary, and has not been verified by the patient. The Appointment Triage Team does not establish a relationship with the patient, nor manage the patient's care outside of an initial review for the purposes of pre-appointment triage. Summary Salbador Justin is internally referred by Nephrology for ESRD on dialysis, chest pian on exertion and at rest. Pertinent Cardiac/Medical History ESRD d/t HTN: on HD HTN Anemia of CKD Secondary hyperparathyroidism LVH (10/08/2022 TTE) Pertinent Testing 09/09/2023 ECG ([place]): Normal sinus rhythm, 75 bpm Left ventricular hypertrophy with QRS widening with secondary ST-T abnormalities 09/09/2023 CXR ([place]): Since 02/04/2023, interval resolution of the previously seen prominent central pulmonary vasculature. Heart size now measures at the upper limits of normal. Remainder not significantly changed. Slight thoracic curvature. Chest otherwise negative. 11/06/2022 CV Note ([place]): He now has a many month history [...] cough without necessarily wheezing associated with this. I took the opportunity to review the [...] promote as much urine output as possible. 11/04/2022 NM Stress ([place]): 10/08/2022 TTE ([place]): 1. Normal left ventricular chamber size, no [...] cava size with normal inspiratory collapse (>50%). documented in this encounter Plan of Treatment Upcoming Encounters Date Type Department Care Team (Latest Contact Info) Description 02/12/2024 9:00 AM CDT Appointment Department of Laboratory Medicine and Pathology, [facility] in [place], [place] [address] [place] [phone] Concetta Mejía M.D., Ph.D. [address] [place] [phone] 02/12/2024 9:20 AM CDT Ancillary Procedure Department of Cardiovascular Medicine in [place], [place] [address] [place] [phone] Concetta Mejía M.D., Ph.D. [address] [place] [phone] 02/12/2024 10:15 AM CDT Appointment Department of Radiology, [facility], in [place], [place] [address] [place] [phone] Concetta Mejía M.D., Ph.D. [address] [place] [phone] 02/12/2024 11:40 AM CDT Appointment Department of Radiology, [facility], in [place], [place] [address] [place] [address] Concetta Mejía M.D., Ph.D. [address] [place] [phone] 02/12/2024 12:40 PM CDT Appointment Department of Cardiovascular Diseases in [place], [place] [address] [place] [phone] Concetta Mejía M.D., Ph.D. [address] [place] [phone] 02/12/2024 1:00 PM CDT Appointment Department of Radiology, [facility], in [place], [place] [address] [place] [phone] Concetta Mejía M.D., Ph.D. [address] [place] [phone] 02/13/2024 9:00 AM CDT Clinical Communication Virtual Review in [place], [place] 200 [place] [address] 02/17/2024 9:00 AM CDT Comprehensive Visit Department of Cardiovascular Medicine in [place], [place] [address] [place] [phone] Isma Verde M.D. [address] [place] [phone] documented as of this encounter Visit Diagnoses Not on filedocumented in this encounter Care Teams Facilities Operations Technician Relationship Specialty Start Date End Date Elsewhere, Pcp PCP - General Internal Medicine 02/04/23 documented as of this encounter
--- OUTSIDE RECORDS SUMMARY | 2024-01-09 15:09 | XMS_ITS | Encounter Summary ---
Author Organization [place] Address [address] [facility] [place] [address] Care Team Providers Care Bone Process Operator Name Role Phone No Ref-Primary, Physician Primary Care Provider Reason for Visit * Reason Comments Eye Problem X2 days of colored c ontacts stuck in both eyes, irritation and blurred vision Urgent Care Encounter Details Date Type Department Care Team (Late st Contact Info) Description 12/11/2023 12:00 PM CDT Office Visit [facility] [place] [address] [place] [address] Tanja Kelly, ALECIA [address] [place] [address] Contact lens stuck (Primary Dx) Social History Tobacco Use Types [...] Pulse 63 12/11/2023 12:11 PM CDT Temperature - - Respiratory Rate 16 12/11/2023 12:11 PM CDT Oxygen Saturation 100% 12/11/2023 12:11 PM CDT Inhaled Oxygen Concentration - - Weight 65.8 kg (145 lb) 12/11/2023 12:11 PM CDT Height 165.1 cm (5' 5) 12/11/2023 12:11 PM CDT Body Mass Index 24.13 12/11/2023 12:11 PM CDT documented in this encounter Patient Instructions * Patient Instructions* Tanja Kelly PA-C - 12/11/2023 12:00 PM CDT (H57.89) Contact lens stuck (primary encounter diagnosis) Comment: Plan: moxifloxacin (VIGAMOX) 0.5 % ophthalmic solution, REMOVE FOREIGN BODY SIMPLE No contact lens wear until done with drops. Follow up with ophthalmology should symptoms persist or worsen. documented in this encounter Progress Notes * Tanja Kelly PA-C - 12/11/2023 12:00 PM CDT Patient presents with: Eye Problem: X2 days of colored contacts stuck in both eyes, irritation and blurred vision Urgent Care (H57.89) Contact lens stuck (primary encounter diagnosis) Comment: 1 contact lens in each eye. Both contact lenses were removed 1 at a time, in clinic. Plan: moxifloxacin (VIGAMOX) 0.5 % ophthalmic solution, REMOVE FOREIGN BODY SIMPLE, REMOVE FOREIGN BODY SIMPLE No contact lens wear until done with drops. Follow up with ophthalmology should symptoms persist or worsen. At the end of the encounter, I discussed results, diagnosis, medications. Discussed red flags for immediate return to clinic/ER, as well as indications for follow up if no improvement. Patient understood and agreed to plan. Patient was stable for discharge SUBJECTIVE: Salbador Justin is a 38 year old male who presents today with contact lenses stuck in each of his eyes. He reports that he placed them yesterday, and is unable to remove them. He states it has been a while since he wore contact lenses. He denies any pain, but his eyes do feel irritated. Vision is i ntermittently blurred, but he feels that may be due to to the contact lenses that are colored. Patient Active Problem List Diagnosis Hyperkalemia Jaw pain Spell of altered consciousness Headache Elevated troponin Hypertensive urgency Chest pain, unspecified type Past Medical History: Diagnosis Date Anemia of chronic renal failure End-stage renal disease on hemodialysis History of noncompliance with medication regimen Hypertension Peptic ulcer disease Secondary hyperparathyroidism of renal origin Seizure disorder Patient notes he was recommended to be on antiepileptics by [place] physician but chooses not to Current Outpatient Medications Medication Sig Dispense Refill Multiple Vitamins-Iron (DAILY-MARIZA/IRON/BETA-CAROTENE) TABS TAKE 1 TABLET BY MOUTH DAILY. (Patient not taking: Reported on 02/14/2020) 30 tablet 7 Social History Tobacco Use Smoking status: Never Smoker Smokeless tobacco: Never Used Substance Use Topics Alcohol use: Not on file Family History Problem Relation Age of Onset Diabetes Mother Diabetes Father ROS: 10 point ROS of systems including Constitutional, Eyes, Respiratory, Cardiovascular, Gastroenterology, Genitourinary, Integumentary, Muscularskeletal, Psychiatric ,neurological were all negative except for pertinent positives noted in my HPI OBJECTIVE: BP (!) 138/94 Pulse 63 Resp 16 Ht 1.651 m (5' 5) Wt 65.8 kg (145 lb) SpO2 100% BMI 24.13 kg/m?? Physical Exam: GENERAL APPEARANCE: healthy, alert and no distress EYES: EOMI, PERRL, conjunctiva clear. Colored contact lenses visible over the iris of each eye. Procedure: Saline rinse was applied to each eye. A gloved finger was used to remove the contact lenses without difficulty. Patient tolerated the procedure well and denies any pain. States that his eyes feel much better with the contact lenses removed. NEURO: Normal strength and tone, sensory exam grossly normal, normal speech and mentation SKIN: no suspicious lesions or rashes documented in this encounter Plan of Treatment Not on file documented as of this encounter Procedures Procedure Name Priority Date/Time Associated Diagnosis Comments ND REMOVE FOREIGN BODY SIMPLE Routine 12/11/2023 1:24 PM CDT Contact lens stuck ND REMOVE FOREIGN BODY SIMPLE Routine 12/11/2023 1:12 PM CDT Contact lens stuck documented in this encounter Visit Diagnoses Diagnosis Contact lens stuck- Primary Other and unspecified complications of medical care, not elsewhere classified documented in this encounter Care Teams Bone Process Operator Relationship Specialty Start Date End Date No Ref-Primary, Physician PCP - General 04/14/22 documented as of this encounter
--- OUTSIDE RECORDS SUMMARY | 2024-01-09 15:09 | XMS_ITS | Encounter Summary ---
Author Organization [facility] Address [address] [place] [address] Care Team Providers Care Industrial Illuminating Engineer Name Role Phone Elsewhere, Pcp Primary Care Provider Unavailabl e Encounter Details Date Type Department Care Team (Latest Contact Info) Description 01/08/2024 Clinical Communication Maco ferreira [facility] in [place], [place] [address] [place] [address] Jo Baldwin, M.S.W., L.I.C.S.W. [address] [place] [address] Social History Tobacco Use Types Packs/Day Years [...] situation today? I have a [facility] place to live 11/14/2022 Sex and Gender Information Value Date Recorded Sex Assigned at Male 11/14/2022 11:03 AM CDT Gender Identity Male 11/14/2022 11:03 AM CDT Sexual Orientation Straight 11/14/2022 11 :03 AM CDT documented as of this encounter Miscellaneous Notes * Telephone Encounter - Jo Baldwin M.S.Emelyn., L.I.C.S.W. - 01/08/2024 2:14 PM CDT This social media marketing manager placed a phone call to the patient's therapist, Dede Urrutia at [facility] in an effort to follow up on continuation of care. This social media marketing manager returned call to Dede Urrutia at [phone] and requested call back with best time to reach her. documented in this encounter Plan of Treatment Upcoming Encounters Date Type Department Care Team (Latest Contact Info) Description 02/12/2024 9:00 AM CDT Appointment Department of Laboratory Medicine and Pathology, [facility] in [place], [place] [address] [place] [phone] Concetta Mejía M.D., Ph.D. [address] [place] [phone] 02/12/2024 9:20 AM CDT Ancillary Procedure Department of Cardiovascular Medicine in [address] [phone] Concetta Mejía M.D., Ph.D. [address] [place] [phone] 02/12/2024 10:15 AM CDT Appointment Department of Radiology, [facility] in [place], [place] [address] [place] [phone] Concetta Mejía M.D., Ph.D. [address] [place] [phone] 02/12/2024 11:40 AM CDT Appointment Department of Radiology, [facility], in [place], [place] [address] [place] [phone] Concetta Mejía M.D., Ph.D. [address] [place] [phone] 02/12/2024 12:40 PM CDT Appointment Department of Cardiovascular Diseases in [address] [address] Concetta Mejía M.D., Ph.D. [address] [place] [phone] 02/12/2024 1:00 PM CDT Appointment Department of Radiology, [facility], in [place], [place] [address] [place] [phone] Concetta Mejía M.D., Ph.D. [address] [place] [phone] 02/13/2024 9:00 AM CDT Clinical Communication Virtual Review in [place], [place] [address] [place] [address] 02/17/2024 9:00 AM CDT Comprehensive Visit Department of Cardiovascular Medicine in [place], [place] [address] [place] [address] Isma Verde M.D. [address] [place] [phone] documented as of this encounter Visit Diagnoses Not on filedocumented in this encounter Care Teams Industrial Illuminating Engineer Relationship Specialty Start Date End Date Elsewhere, Pcp PCP - General Internal Medicine 02/04/23 documented as of this encounter
--- OUTSIDE RECORDS SUMMARY | 2024-01-09 15:09 | XMS_ITS | Encounter Summary ---
Author Organization [facility] Address [address] [place] [address] Care Team Providers Care Net Lead Architect Name Role Phone Elsewhere, Pcp Primary Care Provider Unavailabl e Encounter Details Date Type Department Care Team (Late st Contact Info) Description 12/23/2023 Orders Only Division of Nephrology and Hypertension, [facility], in [place], [place] [address] [place] [address] Drew Mo, HALLE, C.N.P., M.S.N. [address] [place] [address] Hypertensive Chronic Kidney Disease With Stage 5 Chronic Kidney Disease Or End Stage Renal Disease (HCC) (Primary Dx) Social History Tobacco Use Types [...] your living situation today? I have a [facility] place to live 11/14/2022 Sex and [...] of Laboratory Medicine and Pathology, [facility], in [place], [place] [address] [place] [address] Concetta Mejía M.D., Ph.D. [address] [place] [phone] 02/12/2024 9:20 AM CDT Ancillary Procedure Department of Cardiovascular Medicine in [place], [place] [address] [place] [address] Concetta Mejía M.D., Ph.D. [address] [place] [phone] 02/12/2024 10:15 AM CDT Appointment Department of Radiology, [facility], in [place], [place] [address] [place] [address] Concetta Mejía M.D., Ph.D. [address] [place] [phone] 02/12/2024 11:40 AM CDT Appointment Department of Radiology, [facility] in [place], [place] [address] [place] [address] Concetta Mejía M.D., Ph.D. [address] [place] [phone] 02/12/2024 12:40 PM CDT Appointment Department of Cardiovascular Diseases in [place], [place] [address] [place] [address] Concetta Mejía M.D., Ph.D. [address] [place] [phone] 02/12/2024 1:00 PM CDT Appointment Department of Radiology, [facility], in [place], [place] [address] [place] [address] Concetta Mejía M.D., Ph.D. [address] [place] [phone] 02/13/2024 9:00 AM CDT Clinical Communication Virtual Review in [place], [place] [address] [place] [address] 02/17/2024 9:00 AM CDT Comprehensive Visit Department of Cardiovascular Medicine in [place], [place] [address] [place] [phone] Isma Verde M.D. [address] [place] [phone] documented as of this encounter Visit Diagnoses Diagnosis Hypertensive Chronic Kidney Disease With Stage 5 Chronic Kidney Disease Or End Stage Renal Disease (HCC)- Primary documented in this encounter Care Teams Net Lead Architect Relationship Specialty Start Date End Date Elsewhere, Pcp PCP - General Internal Medicine 02/04/23 documented as of this encounter
--- OUTSIDE RECORDS SUMMARY | 2024-01-09 15:09 | XMS_ITS ---
Author Organization [facility] Address [address] [place] [address] Care Team Providers Care Cylinder Machine Operator Pulp Drier Name Role Phone Unavailable Unavailable Unavailable Surgery Details Not on file Complications Check Surgery Details section. Procedure Estimated Blood Loss Check Surgery Details section. Procedure Findings Check Surgery Details section. Procedure Specimens Taken Check Surgery Details section.
--- OUTSIDE RECORDS SUMMARY | 2024-01-09 15:09 | XMS_ITS | Encounter Summary ---
Author Organization [facility] Address [address] [place] [address] Care Team Providers Care Catering Staff Member Name Role Phone Elsewhere, Pcp Primary Care Provider Unavailabl e Reason for Referral * Outpatient (Routine) - Authorized Specialty Diagnoses / Procedures Referred By Contac t Referred To Contact Diagnoses Pain Chest Procedures NM Cardiac Perfusion Rest and Stress SPECT Concetta Mejía M.D., Ph.D. [address] [place] [phone] [facility] Referral ID Status Reason Start Date Expiration Date V isits Requested Visits Authorized [id number] Authorized 11/19/2023 11/18/2024 8 8 * Outpatient (Routine) - Authorized Specialty Diagnoses / Procedures Referred By Contac t Referred To Contact Diagnoses Pain Chest Procedures DX Chest AP or PA and Lateral 2 Views Concetta Mejía M.D., Ph.D. [address] [place] [phone] [facility] Referral ID Status Reason Start Date Expiration Date V isits Requested Visits Authorized [id number] Authorized 11/19/2023 11/18/2024 1 1 * Outpatient (Routine) - Authorized Specialty Diagnoses / Procedures Referred By Contac t Referred To Contact Diagnoses Pain Chest Procedures ECG 12 Lead Concetta Mejía M.D., Ph.D. [address] [place] [phone] [facility] Referral ID Status Reason Start Date Expiration Date V isits Requested Visits Authorized [id number] Authorized 11/19/2023 11/18/2024 1 1 * Outpatient (Routine) - Authorized Specialty Diagnoses / Procedures Referred By Contact Referred To Contact Cardiovascular Diseases / Cardiovascular Disease Diagnoses Pain Chest Concetta Mejía M.D., Ph.D. [address] [place] [phone] [facility] Referral ID Status Reason Start Date Expiration Date V isits Requested Visits Authorized [id number] Authorized 11/19/2023 05/20/2025 1 1 Encounter Details Date Type Department Care Team (Late st Contact Info) Description 11/19/2023 Orders Only Division of Nephrology and Hypertension in [place], [place] [address] [place] [address] Concetta Mejía M.D., Ph.D. [address] [place] [phone] Pain Chest (Primary Dx) Social History Tobacco Use [...] living situation today? I have a [facility] place to live 11/14/2022 Sex [...] Appointment Department of Laboratory Medicine and Pathology, [facility] in [place], [place] [address] [place] [address] Concetta Mejía M.D., Ph.D. [address] [place] [phone] 02/12/2024 9:20 AM CDT Ancillary Procedure Department of Cardiovascular Medicine in [place], [place] [address] [place] [address] Concetta Mejía M.D., Ph.D. [address] [place] [phone] 02/12/2024 10:15 AM CDT [facility] [place], [place] [address] [place] [address] Concetta Mejía M.D., Ph.D. [address] [place] [phone] 02/12/2024 11:40 AM CDT Appointment Department of Radiology, [facility] in [place], [place] [address] [place] [address] Concetta Mejía M.D., Ph.D. [address] [place] [phone] 02/12/2024 12:40 PM CDT Appointment Department of Cardiovascular Diseases in [place], [place] [address] [place] [address] Concetta Mejía M.D., Ph.D. [address] [place] [phone] 02/12/2024 1:00 PM CDT Appointment Department of Radiology, [facility], in [place], [place] [address] [place] [address] Concetta Mejía M.D., Ph.D. [address] [place] [phone] 02/13/2024 9:00 AM CDT Clinical Communication Virtual Review in [place], [place] [address] [place] [address] 02/17/2024 9:00 AM CDT Comprehensive Visit Department of Cardiovascular Medicine in [place], [place] [address] [place] [address] Isma Verde M.D. [address] [place] [phone] Scheduled Orders Name Type Priority Associated Diagnoses Order Schedule ECG 12 Lead ECG Routine Pain Chest 1 Occurrences starting 11/19/2023 until 02/18/2025 DX Chest AP or PA and Lateral 2 Views Imaging RAD - Routine (most inpatients and all outpatients) Pain Chest 1 Occurrences starting 11/19/2023 until 02/18/2025 CBC without Differential Lab Routine Pain Chest 1 Occurrences starting 11/19/2023 until 02/18/2025 Comprehensive Metabolic Panel Lab Routine Pain Chest 1 Occurrences starting 11/19/2023 until 02/18/2025 Lipid Panel Lab Routine Pain Chest 1 Occurrences starting 11/19/2023 until 02/18/2025 NM Cardiac Perfusion Rest and Stress SPECT Cardiac Services RAD - Routine (most inpatients and all outpatients) Pain Chest 1 Occurrences starting 11/19/2023 until 02/18/2025 Scheduled Referrals Name Type Priority Associated Diagnoses Order Schedule Cardiovascular Disease - General cardiology consult (clinic) Outpatient Referral Routine Pain Chest Expected: 11/19/2023, Expires: 02/18/2025 documented as of this encounter Visit Diagnoses Diagnosis Pain Chest- Primary documented in this encounter Care Teams Catering Staff Member Relationship Specialty Start Date End Date Elsewhere, Pcp PCP - General Internal Medicine 02/04/23 documented as of this encounter
--- OUTSIDE RECORDS SUMMARY | 2024-01-09 15:09 | XMS_ITS | Clinical Summary ---
Author Organization [place] Address [address] [facility] [place] [address] Care Team Providers Care Wool Carder Name Role Phone No Ref-Primary, Physician Primary [...] Take 1,334 mg by mouth Active B Bdbmahm-X-Eygvm Acid (DIALYVITE) TABS Take 1 tablet by [...] Spell of altered consciousness 05/27/2022 Headache 05/27/2022 Encounters Date Type Department Care Team Description 12/11/2023 12:00 PM CDT Office Visit [facility] [address] [place] [address] Tanja Kelly, KEILYC Contact lens stuck (Primary Dx) 12/11/2023 Travel from Last 3 Months Social History Tobacco Use Types Packs/Day Years [...] 12/11/2023 12:11 PM CDT Plan of Treatment Health Maintenance Due Date Last Done Comments ADVANCE CARE PLANNING 1987 ANNUAL REVIEW OF HM ORDERS 1987 HIV SCREENING 08/17/2002 HEPATITIS C SCREENING 08/17/2005 MEDICARE ANNUAL WELLNESS VISIT 08/17/2005 DTAP/TDAP/TD IMMUNIZATION (1 - Tdap) 08/17/2012 HEPATITIS B IMMUNIZATION (2 of 5 - Risk Dialysis 4-dose series) 09/30/2017 09/02/2017 Pneumococcal Vaccine: Pediatrics (0 to 5 Years) and At-Risk Patients (6 to 64 Years) (2 of 2 - PPSV23 or PCV20) 08/07/2020 06/12/2020, 09/02/2017 PHQ-2 (once per calendar year) 2023 COVID-19 Vaccine (3 - season) 2023 03/28/2021, 02/26/2021 INFLUENZA VACCINE (#1) 2023 , 01/31/2020, 02/11/2019, Additional history exists GLUCOSE 09/14/2025 09/14/2022, 03/0 12/2022, 07/03/2022, Additional [...] Procedure Name Priority Date/Time Associated Diagnosis Comments SD REMOVE FOREIGN BODY SIMPLE Routine 12/11/2023 1:24 PM CDT Contact lens stuck SD REMOVE FOREIGN BODY SIMPLE Routine 12/11/2023 1:12 [...] Stevenson MD LAB - BLOOD ORDERABL ES [facility] [address] (1st floor, no room number) [place] [address], [facility] [phone] from Last 3 Months or Most Recently Relevant to Health Maintenance Advance Directives For more information, please contact: [phone] * Full Code (Latest Code Status on File) Date Activated Date Inactivated Comments 07/03/2022 10:27 AM 07/04/2022 8:35 PM All basic and advanced life-sustaining interventions are performed as appropriate Question Answer Comments Code status determined by: Discussion with patiadam nt/ legal decision maker * Full Code Date Activated Date Inactivated Comments 05/29/2022 9:22 AM 07/03/2022 5:31 AM Question Answer Comments Code status determined by: Discussion with patiadam nt/ legal decision maker * Full Code Date Activated Date Inactivated Comments 05/27/2022 8:24 PM 05/29/2022 9:22 AM All basic and advanced life-sustaining interventions are performed as appropriate Question Answer Comments Code status determined by: Discussion with patie nt/ legal decision maker Care Teams Wool Carder Relationship Specialty Start Date End Date No Ref-Primary, Physician PCP - General 04/14/22
--- OUTSIDE RECORDS SUMMARY | 2024-01-09 15:09 | XMS_ITS | Encounter Summary ---
Author Organization [place] Address [facility] [place] [address] Care Team Providers Care Leadership Development Instructor Name Role Phone No Ref-Primary, Physician Primary Care Provider Encounter Details Date Type Department Care Team (Latest Contact Info) Description 12/11/2023 Travel Social History Tobacco Use Types Packs/Day Years Used Date Smoking Tobacco: Never Smokeless Tobacco: Never Adolescent Education Answer Date Record ed Getting School Help Needed Not on file 01/18 Sex and Gender Information Value Date Recorded Sex Assigned at Not on file Gender Identity Not on file Sexual Orientation Not on file documented as of this encounter Plan of Treatment Not on file documented as of this encounter Visit Diagnoses Not on filedocumented in this encounter Care Teams Leadership Development Instructor Relationship Specialty Start Date End Date No Ref-Primary, Physician PCP - General 04/14/22 documented as of this encounter
--- OUTSIDE RECORDS SUMMARY | 2024-01-09 15:09 | XMS_ITS | Encounter Summary ---
Author Organization [facility] Address [address] [place] [address] Care Team Providers Care Heat Treatment Technician Name Role Phone Elsewhere, Pcp Primary Care Provider Unavailabl e Encounter Details Date Type Department Care Team (Late st Contact Info) Description 11/26/2023 Orders Only Division of Nephrology and Hypertension, [facility], in [place], [place] [address] [place] [phone] Drew Mo, HALLE, C.N.P., M.S.N. [address] [place] [address] Social History Tobacco Use Types Packs/Day Years [...] your living situation today? [facility] 11/14/2022 Sex and [...] Appointment Department of Laboratory Medicine and Pathology, [facility], in [place], [place] [address] [place] [address] Concetta Mejía M.D., Ph.D. 200 [place] [address] 02/12/2024 9:20 AM CDT Ancillary Procedure Department of Cardiovascular Medicine in [place], [place] [address] [place] [address] Concetta Mejía M.D., Ph.D. [address] [place] [phone] 02/12/2024 10:15 AM CDT Appointment Department of Radiology, [facility], in [place], [place] [address] [place] [address] Concetta Mejía M.D., Ph.D. [address] [place] [phone] 02/12/2024 11:40 AM CDT Appointment Department of Radiology, [facility], in [place], [place] [address] [place] [address] Concetta Mejía M.D., Ph.D. [address] [place] [phone] 02/12/2024 12:40 PM CDT Appointment Department of Cardiovascular Diseases in [place], [place] [address] [place] [address] Concetta Mejía M.D., Ph.D. [address] [place] [phone] 02/12/2024 1:00 PM CDT Appointment Department of Radiology, [facility], in [place], [place] [address] [place] [address] Concetta Mejía M.D., Ph.D. [address] [place] [phone] 02/13/2024 9:00 AM CDT Clinical Communication Virtual Review in [place], [place] 200 [place] [address] 02/17/2024 9:00 AM CDT Comprehensive Visit Department of Cardiovascular Medicine in [place], [place] [address] [place] [phone] Isma Verde M.D. [address] [place] [phone] documented as of this encounter Visit Diagnoses Not on filedocumented in this encounter Care Teams Heat Treatment Technician Relationship Specialty Start Date End Date Elsewhere, Pcp PCP - General Internal Medicine 02/04/23 documented as of this encounter
--- OUTSIDE RECORDS SUMMARY | 2024-01-09 15:09 | XMS_ITS | Clinical Summary ---
Author Organization [facility] Address [address] [place] [address] Care Team Providers Care Small Products Assembler Name Role Phone Elsewhere, Pcp Primary Care Provider Unavailabl e Source Comments Patient records contain information from all sites at [facility]. For routine questions regarding patient records, call [phone] during business hours, M-F 8:00 AM - 5:00 PM Central Time. Record requests for emergency care only can be directed to [phone] at any time.[facility] Allergies Active Allergy Reactions Criticality Noted Date [...] Care Team Description 01/08/2024 Clinical Communication Maco Espinoza [facility] in [place], [place] [address] [place] [address] Jo Baldwin M.S.W., L.I.C.S.W. 12/23/2023 Orders Only Division of Nephrology and Hypertension, [facility], in [place], [place] [address] [place] [address] Drew Mo APRN C.N.P., M.S.N. Hypertensive Chronic Kidney Disease With Stage 5 Chronic Kidney Disease Or End Stage Renal Disease (HCC) (Primary Dx) 11/26/2023 Orders Only Division of Nephrology and Hypertension, [facility], in [place], [place] [address] [place] [address] Drew Mo APRN C.N.P., M.S.N. 11/19/2023 Clinical Communication Department of Cardiovascular Medicine in [place], [place] [address] [place] [address] Bobbin DiskerConstantin M.D. Triage 11/19/2023 Orders Only Division of Nephrology and Hypertension in [place], [place] [address] [place] [phone] Concetta Mejía M.D., Ph.D. Pain Chest (Primary Dx) 11/14/2023 Clinical Communication Maco ferreira [facility] in [place], [place] [address] [place] [address] Kehinde Rausch 10/31/2023 Orders Only Division of Nephrology and Hypertension in [place], [place] [address] [place] [phone] Concetta Mejía M.D., Ph.D. 10/15/2023 Orders Only Division of Nephrology and Hypertension, [facility], in [place], [place] [address] [place] [phone] Drew Mo, HALLE, C.N.P., M.S.N. from Last 3 Months Immunizations Name [...] Comments Blood Pressure 160/89 05/18/2023 4:45 PM BACK OFFICE MEDICAL ASSISTANT Pulse 78 05/18/2023 3:00 PM BACK OFFICE MEDICAL ASSISTANT Temperature 36.5 ??C (97.7 ??F) 05/18/2023 2:47 PM CS T Respiratory Rate 20 05/18/2023 6:27 PM BACK OFFICE MEDICAL ASSISTANT Oxygen Saturation 98% 05/18/2023 3:00 PM BACK OFFICE MEDICAL ASSISTANT Inhaled Oxygen Concentration - - Weight 62 kg (136 lb 11 oz) 11/21/2022 12:56 PM CDT Height 165.1 cm (5' 5) 05/18/2023 5:18 AM BACK OFFICE MEDICAL ASSISTANT Body Mass Index 22.45 11/21/2022 12:56 PM CDT Plan of Treatment Upcoming Encounters Date Type Department Care Team (Latest Contact Info) Description 02/12/2024 9:00 AM CDT Appointment Department of Laboratory Medicine and Pathology, [facility] in [place], [place] [address] [place] [phone] Concetta Mejía M.D., Ph.D. [address] [place] [phone] 02/12/2024 9:20 AM CDT Ancillary Procedure Department of Cardiovascular Medicine in [place], [place] [address] [place] [phone] Concetta Mejía M.D., Ph.D. [address] [place] [phone] 02/12/2024 10:15 AM CDT Appointment Department of Radiology, [facility] in [place], [place] [address] [place] [phone] Concetta Mejía M.D., Ph.D. [address] [place] [phone] 02/12/2024 11:40 AM CDT Appointment Department of Radiology, [facility] in [place], [place] [address] [place] [phone] Concetta Mejía M.D., Ph.D. [address] [place] [phone] 02/12/2024 12:40 PM CDT Appointment Department of Cardiovascular Diseases in [place], [place] [address] [place] [phone] Concetta Mejía M.D., Ph.D. [address] [place] [phone] 02/12/2024 1:00 PM CDT Appointment Department of Radiology, [facility], in [place], [place] [address] [place] [phone] Concetta Mejía M.D., Ph.D. [address] [place] [phone] 02/13/2024 9:00 AM CDT Clinical Communication Virtual Review in [place], [place] [address] [place] [address] 02/17/2024 9:00 AM CDT Comprehensive Visit Department of Cardiovascular Medicine in [place], [place] [address] [place] [phone] Isma Verde M.D. [address] [place] [phone] Health Maintenance Due Date Last Done Comments HIV Screening 1987 Lipid (Cholesterol) Screening 1987 DTaP,Tdap,and Td Vaccines (1 - Tdap) 08/17/2006 Pneumococcal vaccine (0-64 years) (2 of 2 - PPSV23 or PCV20) 08/07/2020 06/12/2020, 09/02/2017 Office Visit for Blood Pressure Check / Re-check 02/06/2023 11/06/2022 Depression Screening (Annual PHQ-2) 04/28/2023 COVID-19 Vaccine (3 - 2022- season) 2023 03/28/2021, 02/26/2021 Influenza Vaccine (#1) 2024 , 01/31/2020, 01/31/2020, Additional history exists Creatinine Level (Kidney Function Test) 05/18/2024 05/18/2023, 02/07/2023, 02/06/2023, Additional history exists Potassium Level 05/18/2024 05/18/2023, 01/26, 02/06/2023, Additional history exists Sodium Level 05/18/2024 05/18/2023, 01/26, 02/06/2023, Additional history exists HPV Vaccines Aged Out No longer eligi ble based on patient's age to complete this topic Medical Devices Implanted Type Area Keg Inspector Device Identifier Shelf Expiration Date Model / Serial / Lot Vascular Graft Vascular Graft Left: Arm Procedures Procedure Name Priority Date/Time Associated Diagnosis Comments BASIC METABOLIC PANEL, S/P STAT 05/18/2023 6:14 AM BACK OFFICE MEDICAL ASSISTANT from Last 3 Months or Most Recently Relevant to Health Maintenance Results * (ABNORMAL) Basic Metabolic Panel (05/18/2023 6:14 AM BACK OFFICE MEDICAL ASSISTANT) Potassium, P 6.0(CH) 3.6 - 5.2 mmol/L 05/18/2023 7:00 AM BACK OFFICE MEDICAL ASSISTANT STMA Sodium, P 140 135 - 145 mmol/L 05/18/2023 6:59 AM BACK OFFICE MEDICAL ASSISTANT STMA Chloride, P 98 98 - 107 mmol/L 05/18/2023 7:00 AM BACK OFFICE MEDICAL ASSISTANT STMA Bicarbonate, P 26 22 - 29 mmol/L 05/18/2023 7:00 AM BACK OFFICE MEDICAL ASSISTANT STMA Anion Gap, P 16(H) 7 - 15 05/18/2023 7:00 AM BACK OFFICE MEDICAL ASSISTANT [facility] BUN (Blood Urea Nitrogen), P 57(H) 8 - 24 mg/dL 05/18/2023 6:35 AM BACK OFFICE MEDICAL ASSISTANT STMA Creatinine 12.93(H) 0.74 - 1.35 mg/dL 05/18/2023 6:35 AM BACK OFFICE MEDICAL ASSISTANT STMA Estimated GFR (eGFR) <15(L) >=60 mL/min/BSA 05/18/2023 6:35 AM BACK OFFICE MEDICAL ASSISTANT [facility] Comment: Estimated GFR calculated using the 2020 CKD_EPI creatinine equation. Calcium, Total, P 9.5 8.6 - 10.0 mg/dL 05/18/2023 6:35 AM BACK OFFICE MEDICAL ASSISTANT STMA Glucose, P 105 70 - 140 mg/dL 05/18/2023 6:35 AM BACK OFFICE MEDICAL ASSISTANT ST[facility] Blood (Blood, Venous) 05/18/2023 6:14 AM BACK OFFICE MEDICAL ASSISTANT 05/18/2023 6:18 AM BACK OFFICE MEDICAL ASSISTANT Lucy Herndon M.D., M.S. LAB BLOOD ADD-ON [facility] [address] [place] [address], [place] STMA [facility] [address] [place] [address] from Last 3 Months or Most Recently Relevant to Health Maintenance Advance Directives For more information, please contact: [phone] * Full Code (Latest Code Status on [...] Answer Comments Full Code: Discussed Care Teams Small Products Assembler Relationship Specialty Start Date End Date Elsewhere, Pcp PCP - General Internal Medicine 02/04/23
--- OUTSIDE RECORDS SUMMARY | 2024-01-09 15:10 | XMS_ITS | Clinical Summary ---
Author Organization [facility] Address [place], [place] [address] Care Team Providers Care Maintenance Porter Name Role Phone Pcp, No Primary Care [...] Comments Blood Pressure 175/96 03/20/2022 7:24 PM CLOTH CARRIER Pulse 98 03/20/2022 7:24 PM CLOTH CARRIER Temperature 37.2 ??C (99 ??F) 03/20/2022 7:24 PM CLOTH CARRIER Respiratory Rate 16 03/20/2022 7:24 PM CLOTH CARRIER Oxygen Saturation 99% 03/20/2022 7:24 PM CLOTH CARRIER Inhaled Oxygen Concentration - - Weight 70.5 kg (155 lb 8 oz) 03/20/2022 7:24 PM CLOTH CARRIER Height 165.1 cm (5' 5) 03/20/2022 7:24 PM CLOTH CARRIER Body Mass Index 25.88 03/20/2022 7:24 PM CLOTH CARRIER Plan of Treatment Not on file Care Teams Maintenance Porter Relationship Specialty Start Date End Date Pcp, No . PCP - General 03/20/22
--- OUTSIDE RECORDS SUMMARY | 2024-01-09 15:10 | XMS_ITS | Encounter Summary ---
Author Organization [facility] Address [address] [place] [address] Care Team Providers Care Legal Job Titles Name Role Phone Elsewhere, Pcp Primary Care Provider Unavailabl e Encounter Details Date Type Department Care Team (Late st Contact Info) Description 10/15/2023 Orders Only Division of Nephrology and Hypertension, [facility], in [place], [place] [address] [place] [address] Drew Mo, HALLE, C.N.P., M.S.N. [address] [place] [address] Social History Tobacco Use Types Packs/Day Years [...] your living situation today? I have a [facility] place to live 11/14/2022 Sex and [...] Appointment Department of Laboratory Medicine and Pathology, [facility], in [place], [place] [address] [place] [address] Concetta Mejía M.D., Ph.D. 200 [place] [address] 02/12/2024 9:20 AM CDT Ancillary Procedure Department of Cardiovascular Medicine in [place], [place] [address] [place] [address] Concetta Mejía M.D., Ph.D. [address] [place] [phone] 02/12/2024 10:15 AM CDT Appointment Department of Radiology, [facility], in [place], [place] [address] [place] [address] Concetta Mejía M.D., Ph.D. [address] [place] [phone] 02/12/2024 11:40 AM CDT Appointment Department of Radiology, [facility], in [place], [place] [address] [place] [address] Concetta Mejía M.D., Ph.D. [address] [place] [phone] 02/12/2024 12:40 PM CDT Appointment Department of Cardiovascular Diseases in [place], [place] [address] [place] [address] Concetta Mejía M.D., Ph.D. [address] [place] [phone] 02/12/2024 1:00 PM CDT Appointment Department of Radiology, [facility], in [place], [place] [address] [place] [address] Concetta Mejía M.D., Ph.D. [address] [place] [phone] 02/13/2024 9:00 AM CDT Clinical Communication Virtual Review in [place], [place] [address] [place] [address] 02/17/2024 9:00 AM CDT Comprehensive Visit Department of Cardiovascular Medicine in [place], [place] [address] [place] [phone] Isma Verde M.D. [address] [place] [phone] documented as of this encounter Visit Diagnoses Not on filedocumented in this encounter Care Teams Legal Job Titles Relationship Specialty Start Date End Date Elsewhere, Pcp PCP - General Internal Medicine 02/04/23 documented as of this encounter
--- OUTSIDE RECORDS SUMMARY | 2024-01-09 15:10 | XMS_ITS | Encounter Summary ---
Author Organization [facility] Address [address] [place] [address] Care Team Providers Care Tuber Helper Name Role Phone Elsewhere, Pcp Primary Care Provider Unavailabl e Encounter Details Date Type Department Care Team (Late st Contact Info) Description 09/24/2023 Orders Only Division of Nephrology and Hypertension, [facility], in [place], [place] [address] [place] [address] Drew Mo, HALLE, C.N.P., M.S.N. [address] [place] [address] Social History Tobacco Use Types Packs/Day Years [...] Appointment Department of Laboratory Medicine and Pathology, [facility], in [place], [place] [address] [place] [address] Concetta Mejía M.D., Ph.D. 200 [place] [address] 02/12/2024 9:20 AM CDT Ancillary Procedure Department of Cardiovascular Medicine in [place], [place] [address] [place] [address] Concetta Mejía M.D., Ph.D. [address] [place] [phone] 02/12/2024 10:15 AM CDT Appointment Department of Radiology, [facility], in [place], [place] [address] [place] [address] Concetta Mejía M.D., Ph.D. [address] [place] [phone] 02/12/2024 11:40 AM CDT Appointment Department of Radiology, [facility], in [place], [place] [address] [place] [address] Concetta Mejía M.D., Ph.D. [address] [place] [phone] 02/12/2024 12:40 PM CDT Appointment Department of Cardiovascular Diseases in [place], [place] [address] [place] [address] Concetta Mejía M.D., Ph.D. [address] [place] [phone] 02/12/2024 1:00 PM CDT Appointment Department of Radiology, [facility], in [place], [place] [address] [place] [address] Concetta Mejía M.D., Ph.D. [address] [place] [phone] 02/13/2024 9:00 AM CDT Clinical Communication Virtual Review in [place], [place] [address] [place] [address] 02/17/2024 9:00 AM CDT Comprehensive Visit Department of Cardiovascular Medicine in [place], [place] [address] [place] [phone] Isma Verde M.D. [address] [place] [phone] documented as of this encounter Visit Diagnoses Not on filedocumented in this encounter Care Teams Tuber Helper Relationship Specialty Start Date End Date Elsewhere, Pcp PCP - General Internal Medicine 02/04/23 documented as of this encounter
--- OUTSIDE RECORDS SUMMARY | 2024-01-09 15:10 | XMS_ITS | Encounter Summary ---
Author Organization [facility] Address [address] [place] [address] Care Team Providers Care Reception Name Role Phone Elsewhere, Pcp Primary Care Provider Unavailabl e Encounter Details Date Type Department Care Team ([facility] st Contact Info) Description 10/31/2023 Orders Only Division of Nephrology and Hypertension in [place], [place] [address] [place] [address] Concetta Mejía M.D., Ph.D. [address] [place] [address] Social History Tobacco Use Types Packs/Day Years [...] Appointment Department of Laboratory Medicine and Pathology, [facility], in [place], [place] [address] [place] [address] Concetta Mejía M.D., Ph.D. [address] [place] [address] 02/12/2024 9:20 AM CDT Ancillary Procedure Department of Cardiovascular Medicine in [place], [place] [address] [place] [phone] Concetta Mejía M.D., Ph.D. [address] [place] [phone] 02/12/2024 10:15 AM CDT Appointment Department of Radiology, [facility], in [place], [place] [address] [place] [phone] Concetta Mejía M.D., Ph.D. [address] [place] [phone] 02/12/2024 11:40 AM CDT Appointment Department of Radiology, [facility], in [place], [place] [address] [place] [phone] Concetta Mejía M.D., Ph.D. [address] [place] [phone] 02/12/2024 12:40 PM CDT Appointment Department of Cardiovascular Diseases in [address] [phone] Concetta Mejía M.D., Ph.D. [address] [place] [phone] 02/12/2024 1:00 PM CDT Appointment Department of Radiology, [facility], in [address] [phone] Concetta Mejía M.D., Ph.D. [address] [place] [phone] 02/13/2024 9:00 AM CDT Clinical Communication Virtual Review in [address] [phone] 02/17/2024 9:00 AM CDT Comprehensive Visit Department of Cardiovascular Medicine in [place], [place] [address] [place] [address] Isma Verde M.D. [address] [place] [address] documented as of this encounter Visit Diagnoses Not on filedocumented in this encounter Care Teams Reception Relationship Specialty Start Date End Date Elsewhere, Pcp PCP - General Internal Medicine 02/04/23 documented as of this encounter
--- OUTSIDE RECORDS SUMMARY | 2024-01-09 15:10 | XMS_ITS | Encounter Summary ---
Author Organization [facility] Address [address] [place] [address] Care Team Providers Care Supervisor Painting Shipyard Name Role Phone Elsewhere, Pcp Primary Care Provider Unavailabl e Encounter Details Date Type Department Care Team (Late st Contact Info) Description 10/03/2023 Orders Only Division of Nephrology and Hypertension, [facility], in [place], [place] [address] [place] [address] Drew Mo, HALLE, C.N.P., M.S.N. [address] [place] [address] Social History Tobacco Use Types Packs/Day Years [...] your living situation today? I have a [facility] place to live 11/14/2022 [...] Medicine and Pathology, [facility], in [place], [place] [address] [place] [address] Concetta Mejía M.D., Ph.D. 200 [place] [address] 02/12/2024 9:20 AM CDT Ancillary Procedure Department of Cardiovascular Medicine in [place], [place] [address] [place] [address] Concetta Mejía M.D., Ph.D. [address] [place] [phone] 02/12/2024 10:15 AM CDT Appointment Department of Radiology, [facility], in [place], [place] [address] [place] [address] Concetta Mejía M.D., Ph.D. [address] [place] [phone] 02/12/2024 11:40 AM CDT Appointment Department of Radiology, [facility], in [place], [place] [address] [place] [address] Concetta Mejía M.D., Ph.D. [address] [place] [phone] 02/12/2024 12:40 PM CDT Appointment Department of Cardiovascular Diseases in [place], [place] [address] [place] [address] Concetta Mejía M.D., Ph.D. [address] [place] [phone] 02/12/2024 1:00 PM CDT Appointment Department of Radiology, [facility], in [place], [place] [address] [place] [address] Concetta Mejía M.D., Ph.D. [address] [place] [phone] 02/13/2024 9:00 AM CDT Clinical Communication Virtual Review in [place], [place] [address] [place] [address] 02/17/2024 9:00 AM CDT Comprehensive Visit Department of Cardiovascular Medicine in [place], [place] [address] [place] [phone] Isma Verde M.D. [address] [place] [phone] documented as of this encounter Visit Diagnoses Not on filedocumented in this encounter Care Teams Supervisor Painting Shipyard Relationship Specialty Start Date End Date Elsewhere, Pcp PCP - General Internal Medicine 02/04/23 documented as of this encounter
--- OUTSIDE RECORDS SUMMARY | 2024-01-09 15:10 | XMS_ITS | Encounter Summary ---
Author Organization [facility] Address [address] [place] [address] Care Team Providers Care House Designer Name Role Phone Elsewhere, Pcp Primary Care Provider Unavailabl e Encounter Details Date Type Department Care Team (Latest Contact Info) Description 11/14/2023 Clinical Communication [facility] in [place], [place] [address] [place] [address] Kehinde Rausch Social History Tobacco Use Types Packs/Day Years [...] Appointment Department of Laboratory Medicine and Pathology, [facility], in [place], [place] 200 [place] [address] Concetta Mejía M.D., Ph.D. 200 [place] [address] 02/12/2024 9:20 AM CDT Ancillary Procedure Department of Cardiovascular Medicine in [place], [place] [address] [place] [phone] Concetta Mejía M.D., Ph.D. [address] [place] [phone] 02/12/2024 10:15 AM CDT Appointment Department of Radiology, [facility], in [place], [place] [address] [place] [phone] Concetta Mejía M.D., Ph.D. [address] [place] [phone] 02/12/2024 11:40 AM CDT Appointment Department of Radiology, [facility], in [place], [place] [address] [place] [phone] Concetta Mejía M.D., Ph.D. [address] [place] [phone] 02/12/2024 12:40 PM CDT Appointment Department of Cardiovascular Diseases in [place], [place] [address] [place] [phone] Concetta Mejía M.D., Ph.D. [address] [place] [phone] 02/12/2024 1:00 PM CDT Appointment Department of Radiology, [facility], in [place], [place] [address] [place] [phone] Concetta Mejía M.D., Ph.D. [address] [place] [phone] 02/13/2024 9:00 AM CDT Clinical Communication Virtual Review in [place], [place] [address] [place] [address] 02/17/2024 9:00 AM CDT Comprehensive Visit Department of Cardiovascular Medicine in [place], [place] [address] [place] [address] Isma Verde M.D. [address] [place] [address] documented as of this encounter Visit Diagnoses Not on filedocumented in this encounter Care Teams House Designer Relationship Specialty Start Date End Date Elsewhere, Pcp PCP - General Internal Medicine 02/04/23 documented as of this encounter
--- OUTSIDE RECORDS SUMMARY | 2024-01-09 15:10 | XMS_ITS | Encounter Summary ---
Author Organization [facility] Address [address] [place] [id number] Care Team Providers Care Crop Quantitative Geneticist Name Role Phone Elsewhere, Pcp Primary Care Provider Unavailabl e Reason for Visit * Reason Onset Date Comments Results 09/11/2023 Encounter Details Date Type Department Care Team ([facility] st Contact Info) Description 09/11/2023 Clinical Communication Division of Nephrology and Hypertension, [facility], in [place], [place] [address] [place] [phone] Drew Mo, HALLE, C.N.P., M.S.N. [address] [place] [phone] Results Social History Tobacco Use Types Packs/Day [...] CDT Caller is: patient Preferred Communication Method: [phone] (mobile) Reason for call: Patient would like to know the results of his recent EKG and X-ray. documented in this encounter Plan of Treatment Upcoming Encounters Date Type Department Care Team (Latest Contact Info) Description 02/12/2024 9:00 AM CDT Appointment Department of Laboratory Medicine and Pathology, [facility] in [place], [place] [address] [place] [address] Concetta Mejía M.D., Ph.D. [address] [place] [phone] 02/12/2024 9:20 AM CDT Ancillary Procedure Department of Cardiovascular Medicine in [place], [place] [address] [place] [phone] Concetta Mejía M.D., Ph.D. [address] [place] [phone] 02/12/2024 10:15 AM CDT Appointment Department of Radiology, [facility], in [place], [place] [address] [place] [phone] Concetta Mejía M.D., Ph.D. [address] [place] [phone] 02/12/2024 11:40 AM CDT Appointment Department of Radiology, [facility], in [place], [place] [address] [place] [phone] Cnocetta Mejía M.D., Ph.D. [address] [place] [phone] 02/12/2024 12:40 PM CDT Appointment Department of Cardiovascular Diseases in [place], [place] [address] [place] [address] Concetta Mejía M.D., Ph.D. [address] [place] [phone] 02/12/2024 1:00 PM CDT Appointment Department of Radiology, [facility], in [place], [place] [address] [place] [phone] Concetta Mejía M.D., Ph.D. [address] [place] [phone] 02/13/2024 9:00 AM CDT Clinical Communication Virtual Review in [place], [place] [address] [place] [phone] 02/17/2024 9:00 AM CDT Comprehensive Visit Department of Cardiovascular Medicine in [place], [place] [address] [place] [phone] Isma Verde M.D. [address] [place] [phone] documented as of this encounter Visit Diagnoses Not on filedocumented in this encounter Care Teams Crop Quantitative Geneticist Relationship Specialty Start Date End Date Elsewhere, Pcp PCP - General Internal Medicine 02/04/23 documented as of this encounter
[2024-01-12 15:51] LABS: HSV 1 Subtype by PCR Not Detected; HSV 2 Subtype by PCR Not Detected; Herpes Simplex Subtype Source Vesicle
== END 2024-01-09 15:06 | disposition home or self-care (01) ==
LOC: NFLDUCREF 15:06
PROVIDERS: PCP Internal Medicine; Visit Provider Physician Assistant
DX: N48.9 Disorder of penis, unspecified (principal)
CPT/HCPCS: 87529